=== PATIENT | female | born 1955 | race Caucasian/White ===

== ENCOUNTER 2021-12-26 11:35 | Emergency (ER) | payer BC, SELFPAY ==
[2021-12-26 11:45] VITALS: BP 176/88; PULSE 71; RESP 14; TEMP 36.6; O2SAT 98; BMI 19.1
--- NOTE | 2021-12-26 12:25 | ED_ITS ---
HPI - Skin/Abscess/Foreign Bdy General Chief complaint: Skin/Abscess/Foreign Body Stated complaint: right leg infection Time Seen by Provider: 12/26/21 11:40 History of Present Illness HPI narrative: 66-year-old woman presenting to the emergency department with concern of potential infection on her right inner lower leg. No fever. It sounds as though this has been there as long as 2 weeks. Got scratched by the toenail of her dog. Had been treating with Neosporin and bandage. Not known to have an allergy to combination of antibiotics in the aspirin. After about a week she had noted had scabbed over and then swelled and then ruptured with sounds like serous drainage. Has continued to ooze similar. Not purulent drainage. Is not particularly painful. She continues to apply Neosporin ointment on it. Later questioning reveals that is scrubbing it during bathing with soap and water. She has not been using hydrogen peroxide or alcohol to clean it. History of kidney transplants and long-term steroid and other immunosuppression with rather thin skin. 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 Related Data Home Medications Medication Instructions Recorded Confirmed amlodipine 5 mg tablet mg 12/26/21 atorvastatin 20 mg tablet mg 12/26/21 losartan 25 mg tablet 50 mg PO 12/26/21 mycophenolate mofetil 250 mg mg PO 12/26/21 capsule prednisone 5 mg tablet mg 12/26/21 tacrolimus 0.5 mg capsule, mg 12/26/21 immediate-release tacrolimus 1 mg capsule, mg 12/26/21 immediate-release Allergies Allergy/AdvReac Type Severity Reaction Status Date / Time No Known Drug Allergies Allergy Verified 12/26/21 11:48 Review of Systems Status of ROS: Reports: 6 or more systems reviewed and unremarkable except as noted in History and below PFSH PFS Social History Smoking Status: Current every day smoker What tobacco products do you use: cigarettes How often do you have a drink containing alcohol: monthly or less AUDIT-C Alcohol total score: 1 Non-prescribed substance use: denies use Exam Narrative: Exam Narrative: Pleasant. Good energy. Rather thin skin. Darkened in particular over hands and lower forms. Breathing easily. Moving all extremities without difficulty. No peripheral edema. Well perfused peripherally. Examination of the right lower leg reveals a quarter-sized area of irregularly- shaped of faint erythema. There is no calor. No purulent drainage. No significant pain to palpation. Centrally there is 1 cm maximal break in the skin with some whitish connective tissue/granulation tissue is visible. Small amount of serous drainage. Const: Vital Signs, click to edit/add: Vital Signs - 24 hr 12/26/21 11:45 Temperature 97.8 F Pulse Rate [Pulse Oximeter] 71 Respiratory Rate 14 Blood Pressure [Le ft Upper Arm] 176/88 H Pulse Oximetry 98 Oxygen Delivery Me thod Room Air Documenting provider has reviewed patient's vital signs: yes Course Course Hospital Course: Cleansed with Betadine and collected a wound culture. Placed 2 x 2 gauze and paper tape. Vital Signs Vital signs: Initial Vital Signs Temperature 97.8 F 12/26/21 11:45 Temperature Source Temporal Artery Scan 12/26/21 11:45 Pulse Rate 71 12/26/21 11:45 Pulse Rhythm 12/26/21 11:45 Respiratory Rate 14 12/26/21 11:45 Blood Pressure 176/88 H 12/26/21 11:45 Blood Pressure Mean 117 12/26/21 11:45 Blood Pressure Position Sitting 12/26/21 11:45 Pulse Oximetry 98 12/26/21 11:45 Oxygen Delivery Method 12/26/21 11:45 Vital Signs Temperature 97.8 F 12/26/21 11:45 Pulse Rate 71 12/26/21 11:45 Respiratory Rate 14 12/26/21 11:45 Blood Pressure 176/88 H 12/26/21 11:45 Pulse Oximetry 98 12/26/21 11:45 Oxygen Delivery Method 12/26/21 11:45 Temperature 97.8 F 12/26/21 11:45 Pulse Rate 71 12/26/21 11:45 Respiratory Rate 14 12/26/21 11:45 Blood Pressure 176/88 H 12/26/21 11:45 Pulse Oximetry 98 12/26/21 11:45 Oxygen Delivery Method 12/26/21 11:45 MDM - Skin/Abscess/Foreign Bdy MDM Narrative Medical decision making narrative: I do not think there is an active cellulitis here. some mild inflammatory reaction. Understanding history and current immunosuppression. Medical Records Attestation: I reviewed the patient's medical records. Discharge Plan Discharge Clinical Impression: Wound drainage Patient Disposition: Home w/ Parent or Adult Additional Instructions: Be seen for marked increase in/spreading redness, heat, pain, purulent drainage. I think at this point I would just go to dry dressing changes as done here. Do avoid scrubbing off that white tissue that is over growing. Might be a good idea, given your history, to be seen in the wound clinic if you do not notice improvement in a week or so. Prescriptions: No Action amlodipine 5 mg tablet losartan 25 mg tablet 50 mg PO atorvastatin 20 mg tablet mycophenolate mofetil 250 mg capsule PO Label Comments: TAKE 3 CAPSULES BY MOUTH EVERY MORNING AND 2 CAPSULES EVERY EVENING prednisone 5 mg tablet tacrolimus 1 mg capsule Label Comments: TAKE 1 CAPSULE BY MOUTH TWICE DAILY TAKE ALONG WITH 0.5 MG CAPSULE tacrolimus 0.5 mg capsule Label Comments: TAKE 1 CAPSULE BY MOUTH TWICE DAILY WITH 1 MG CAPSULE FOR TOTAL DAILY DOSE OF 1.5MG Follow Up/Referrals: Tammy Moreira MD [Primary Care Provider] - Stand Alone Forms: [employer] Info Instructions
== END 2021-12-26 12:40 | disposition home or self-care (01) ==
PROVIDERS: Emergency Provider Family Medicine; PCP Internal Medicine
DX: S80.921A Unspecified superficial injury of right lower leg, initial encounter (principal); W54.1XXA Struck by dog, initial encounter
CPT/HCPCS: 87070; 87186; 99283

== ENCOUNTER 2022-01-22 14:46 | Outpatient (RCR) | payer BC, SELFPAY ==
[2022-01-22 15:26] LABS: Basophils Absolute Auto 0.01 K/uL (0.00-0.30); Basophils Percent Auto 0.1 % (0.0-3.0); Eosinophils Absolute Auto 0.04 K/uL (0.00-0.50); Eosinophils Percent Auto 0.6 % (0.0-7.0); Hematocrit 40.2 % (33.0-51.0); Hemoglobin* 12.8 gm/dL (12.0-16.0); Immature Granulocytes Abs Auto 0.01 K/uL (0.00-0.30); Lymphocytes Percent Auto 12.5 % (20-44); Mean Corpuscular HGB Conc 32 gm/dL (32-36); Mean Corpuscular Hemoglobin 30 pg (26-34); Mean Corpuscular Volume 94 fL (80-100); Monocytes Percent Auto 6.2 % (0.0-11.0); Neutrophils Percent Auto 80.5 % (42.0-72.0); Platelet Count* 297 K/uL (140-440); RDW Coefficient of Variation % 13.8 % (11.5-15.5); Red Blood Count 4.26 m/uL (4.00-5.20); White Blood Count* 6.98 K/uL (4.50-11.00)
[2022-01-22 15:27] LABS: Slide Review Reflex No
[2022-01-22 15:42] LABS: Potassium* 4.3 mmol/L (3.6-5.1)
[2022-01-22 15:44] LABS: Creatinine Urine 71.9 mg/dL
[2022-01-22 15:45] LABS: Creatinine* 1.3 mg/dL (0.5-1.5); Estimated Glomerular Filt Rate 45 ml/min
[2022-01-22 15:46] LABS: Glucose* 92 mg/dL (60-115)
[2022-01-22 16:42] LABS: Microalbumin Creatinine Ratio 370 mg/g (0-30); Microalbumin Urine 27 mg/dL
== END 2023-01-03 11:50 | disposition home or self-care (01) ==
LOC: LAB 14:46
PROVIDERS: PCP Internal Medicine; Visit Provider Internal Medicine
DX: Z94.0 Kidney transplant status (principal)
CPT/HCPCS: 36415; 82043; 82565; 82570; 82947; 84132; 85025

== ENCOUNTER 2022-02-27 13:49 | Outpatient (REF) | payer BC, SELFPAY ==
[2022-02-27 14:48] LABS: Basophils Absolute Auto 0.01 K/uL (0.00-0.30); Basophils Percent Auto 0.1 % (0.0-3.0); Eosinophils Absolute Auto 0.03 K/uL (0.00-0.50); Eosinophils Percent Auto 0.4 % (0.0-7.0); Hematocrit 39.7 % (33.0-51.0); Hemoglobin* 12.9 gm/dL (12.0-16.0); Immature Granulocytes Abs Auto 0.02 K/uL (0.00-0.30); Lymphocytes Percent Auto 13.5 % (20-44); Mean Corpuscular HGB Conc 33 gm/dL (32-36); Mean Corpuscular Hemoglobin 31 pg (26-34); Mean Corpuscular Volume 94 fL (80-100); Monocytes Percent Auto 5.4 % (0.0-11.0); Neutrophils Percent Auto 80.3 % (42.0-72.0); Platelet Count* 284 K/uL (140-440); RDW Coefficient of Variation % 13.4 % (11.5-15.5); Red Blood Count 4.22 m/uL (4.00-5.20); White Blood Count* 6.81 K/uL (4.50-11.00)
[2022-02-27 15:03] LABS: Slide Review Reflex No
[2022-03-01 12:29] LABS: 25-Hydroxyvitamin D2 1.1 ng/mL; 25-Hydroxyvitamin D2,D3 Total 34.8 ng/mL (30.0-80.0); 25-Hydroxyvitamin D3 33.7 ng/mL
== END 2022-02-27 13:50 | disposition home or self-care (01) ==
LOC: NPINS 13:49
PROVIDERS: PCP Internal Medicine
DX: Z79.899 Other long term (current) drug therapy (principal)
CPT/HCPCS: 80061; 82306; 82310; 82565; 82947; 83970; 84132; 85025

== ENCOUNTER 2022-05-23 10:06 | Emergency (ER) | payer BC, SELFPAY ==
[2022-05-23] VITALS (16 sets, daily range): BP systolic 159–178; BP diastolic 67–86; PULSE 60–77; RESP 14; TEMP 37.3; O2SAT 93–96; BMI 17.3
[2022-05-23] MEDS: 0.9 % SODIUM CHLORIDE 1000 ml 1,000 ML IV (11:10)
--- NOTE | 2022-05-23 11:14 | CRLHL7_ITS ---
For Patients: As a result of the 21st Century Cures Act, medical imaging exams and procedure reports are released immediately into your electronic medical record. You may view this report before your referring provider. If you have questions, please contact your health care provider. Indication: Cough, weight loss history of cancer status post renal transplantation Technique: Volumetric multidetector CT images of the chest, abdomen, and pelvis were obtained without the administration of intravenous contrast. No low osmolar intravenous contrast Comparison: None available. FINDINGS: CHEST The thoracic inlet is unremarkable. The thyroid gland is within normal limits. The thoracic aorta is non aneurysmal with moderate scattered atherosclerotic calcification. The pulmonary arteries are nondilated. There is no mediastinal, hilar, or axillary adenopathy. There is mild central bronchial thickening. There is minimal peripheral atelectasis and parenchymal scarring without evidence of dense consolidation, effusion or pneumothorax. Minimal biapical pleural thickening and paraseptal emphysematous changes are appreciated. The thoracic osseus structures are intact without fracture, lytic, or blastic lesion. The thoracic vertebral body heights are grossly maintained with demonstration of minimal endplate deformity of the superior T11 endplate consistent with sequela of prior Schmorl`s defect. Otherwise, there is no evidence of displaced fracture. ABDOMEN AND PELVIS The liver is normal in size without focal abnormality. The spleen is normal in attenuation and size. There layering calcified gallstones within the gallbladder lumen. There is no intrahepatic or common ductal dilatation. There is mild thickening of the gastric antrum. Otherwise the stomach is grossly unremarkable. There is moderate atrophy of the pancreas. The adrenal glands are unremarkable without evidence of adenoma. The kidneys demonstrate atrophic changes bilaterally with demonstration of a transplant kidney in the left lower quadrant. There is no evidence of obvious radiopaque calculus or hydronephrosis. There is minimal stool seen throughout the colon with a predominantly decompressed appearing transverse colon and descending colon with marked sigmoid diverticulosis without definite evidence of diverticulitis. The appendix is unremarkable without significant inflammatory change. The abdominal aorta is aneurysmal measuring 4.2 x 4.3 centimeters with moderate scattered atherosclerotic calcification. The remaining solid pelvic viscera are otherwise grossly unremarkable. There is no pathologically enlarged epigastric, mesenteric, retroperitoneal, or pelvic sidewall lymph node. The anterior abdominal wall is grossly intact without significant hernias. There is no free air or free fluid. The visualized osseous structures are grossly intact without evidence of displaced fracture, lytic or blastic lesion. There is age-indeterminate deformity of the superior L1 vertebral body. Otherwise, the vertebral body heights are grossly maintained with [id number] degenerative disc disease. Impression: 1. Mild to moderate nonspecific central bronchial thickening without acute cardiopulmonary abnormality which may represent minimal bronchitis changes. 2. Demonstration of transplant kidney in the left lower quadrant without obvious hydronephrosis or hydroureter. Severe atrophy of the [place] kidneys. 3. 4.2 x 4.3 centimeter infrarenal abdominal aortic aneurysm. 4. Moderate to severe diverticulosis of the rectosigmoid colon without overt pericolonic inflammation to suggest diverticulitis. 5. Cholelithiasis. Hepatomegaly. Please note that all CT scans at this facility use dose modulation, iterative reconstruction, and/or weight-based dosing when appropriate to reduce radiation dose to as low as reasonably achievable. Dictated by Vicente Smith MD @ 05/23/2022 12:20:18 PM (Electronically Signed)
[2022-05-23] MEDS: ONDANSETRON 2 MG/ML inj 4 MG IVP (11:15)
--- NOTE | 2022-05-23 11:18 | ED_ITS ---
HPI - General Adult General Chief complaint: Nausea/Vomiting Stated complaint: Can't keep anything down, dehydration Time Seen by Provider: 05/23/22 10:50 History of Present Illness HPI narrative: This 66-year-old female well comes in because of weight loss, vomiting, and generalized malaise. She has a history of renal transplant x2. She is a smoker. She got a respiratory infection about a month ago and since then has not been able to eat well because she is coughing up phlegm and what food that she swallows comes also. She states that she has had vomiting of any kind of liquids also over the last day. She reports 30 lb weight loss in the last month. She did go to her primary physician who ordered some tests and follow-up appointments that will not occur for farther out in the future. She does not report any fevers. She states that she does not have enough energy to walk across the room. She arrives with normal vital signs and oximetry at 96% on room air. At her previous doctor's appointment she was able to get up and walk across the room and yet maintain sufficient oximetry. She reports that she continues to smoke but diego so over the past days or weeks. Related Data Home Medications Medication Instructions Recorded Confirmed losartan 25 mg tablet 50 mg PO DAILY 12/26/21 05/23/22 amlodipine 5 mg tablet 5 mg PO QDAY 05/17/22 05/23/22 aspirin 325 mg tablet 325 mg PO QDAY 05/17/22 05/23/22 atorvastatin 20 mg tablet 20 mg PO QDAY 05/17/22 05/23/22 cholecalciferol (vitamin D3) 50 50 mcg PO QDAY 05/17/22 05/23/22 mcg (2,000 unit) capsule mycophenolate mofetil 250 mg 250 mg PO .3 cap QAM and 2 Caps 05/17/22 05/23/22 capsule prednisone 5 mg tablet 5 mg PO QDAY 05/17/22 05/23/22 tacrolimus 0.5 mg capsule, 0.5 mg PO BID 05/17/22 05/23/22 immediate-release tacrolimus 1 mg capsule, 1 mg PO BID 05/17/22 05/23/22 immediate-release Previous Rx's Medication Instructions Recorded acetaminophen 300 mg-codeine 30 mg 1 tab PO Q6H PRN pain #20 tabs 05/23/22 tablet metoclopramide HCl 10 mg tablet 10 mg PO Q6H PRN nausea and 05/23/22 (Reglan) vomiting #20 tabs ondansetron HCl 4 mg tablet 4 mg PO Q6H #20 tabs 05/23/22 Allergies Allergy/AdvReac Type Severity Reaction Status Date / Time No Known Drug Allergies Allergy Verified 05/23/22 10:57 Review of Systems Status of ROS: Reports: 10 or more systems reviewed and unremarkable except as noted in History and below Narrative: Constitutional: No fevers. 30 lb weight loss in the last month. Eyes: No discharge. No vision changes. HENT: No congestion, no sore throat, no ear pain. Cardiovascular: No chest pain, no palpitations. Respiratory: She has a productive cough and feels shortness of breath with exertion. Gastrointestinal: Persistent vomiting with nausea. Genitourinary: No dysuria, no hematuria. Musculoskeletal: Normal range of motion. Skin: No rashes, no pruritis. Neurological: No dizziness, weakness, sensory change, speech change. Pysch: no suicidality, no anxiety, no insomnia. All other systems reviewed and are negative. [facility] Medical History (Updated 05/23/22 @ 13:04 by Enrique Rivas MD) History of anemia of chronic renal failure History of atrial fibrillation History of hypertension Surgical History (Updated 05/17/22 @ 12:53 by Tammy Moreira MD) History of basal cell carcinoma excision History of parathyroidectomy History of squamous cell carcinoma excision Social History Smoking Status: Current every day smoker What tobacco products do you use: cigarettes How often do you have a drink containing alcohol: monthly or less AUDIT-C Alcohol total score: 1 Non-prescribed substance use: denies use Exam Narrative: Exam Narrative: Constitutional: Cachectic. HEENT: Normocephalic, atraumatic. Neck: Normal range of motion. Nontender. Supple. Heart: Regular. No murmurs. Normal rate. Intact distal pulses. Lungs: Clear to auscultation. No chest discomfort. Frequent loose sound Ng productive cough. Abdomen: Normal bowel sounds. Diffuse tenderness. No rebound tenderness. Genitalia: Deferred. Back: No midline tenderness. Normal range of motion. Extremities: Normal range of motion. No injury. Skin: Intact. No rash. Warm. No erythema or pallor. Neurologic: No altered sensation. No weakness. Alert and oriented. Psychiatric: No suicidality. No anxiety or depression. No insomnia. Nursing notes and vitals signs are reviewed. Const: Vital Signs, click to edit/add: Vital Signs - 24 hr 05/23/22 10:51 05/23/22 10:50 05/23/22 10:52 Temperature 99.1 F Pulse Rate 60 61 Pulse Rate [Pulse Oximeter] 76 Respiratory Rate 14 Blood Pressure 166/69 H Blood Pressure [Le ft Upper Arm] 159/83 H Pulse Oximetry 94 96 96 Oxygen Delivery Me thod Room Air 05/23/22 11:00 05/23/22 11:02 05/23/22 11:20 Temperature Pulse Rate 62 61 64 Pulse Rate [Pulse Oximeter] Respiratory Rate Blood Pressure 178/71 H Blood Pressure [Le ft Upper Arm] Pulse Oximetry 95 96 95 Oxygen Delivery Me thod 05/23/22 11:56 05/23/22 12:00 05/23/22 12:03 Temperature Pulse Rate 66 64 69 Pulse Rate [Pulse Oximeter] Respiratory Rate Blood Pressure 161/67 H Blood Pressure [Le ft Upper Arm] Pulse Oximetry 93 93 93 Oxygen Delivery Me thod 05/23/22 12:20 05/23/22 12:22 05/23/22 12:40 Temperature Pulse Rate 61 65 70 Pulse Rate [Pulse Oximeter] Respiratory Rate Blood Pressure 167/79 H Blood Pressure [Le ft Upper Arm] Pulse Oximetry 94 94 94 Oxygen Delivery Me thod 05/23/22 12:42 Temperature Pulse Rate 77 Pulse Rate [Pulse Oximeter] Respiratory Rate Blood Pressure 178/86 H Blood Pressure [Le ft Upper Arm] Pulse Oximetry 95 Oxygen Delivery Me thod Course Vital Signs Vital signs: Initial Vital Signs Pulse Rate 60 05/23/22 10:50 Pulse Oximetry 96 05/23/22 10:50 Vital Signs Pulse Rate 60 05/23/22 10:50 Pulse Oximetry 96 05/23/22 10:50 Temperature 99.1 F 05/23/22 10:51 Pulse Rate 77 05/23/22 12:42 Respiratory Rate 14 05/23/22 10:51 Blood Pressure 178/86 H 05/23/22 12:42 Pulse Oximetry 95 05/23/22 12:42 Oxygen Delivery Method 05/23/22 10:51 Medical Decision Making MDM Narrative Medical decision making narrative: This 66-year-old female comes in with generalized malaise including nausea, vomiting, and diarrhea. An IV was established where she received a L of normal saline and another L of D5 half-normal saline. She also received 4 mg of Zofran and later Reglan 10 mg for nausea management. Lab results returned with reassuring findings. I did scan her chest, abdomen, and pelvis and these returned with no new findings to explain her symptoms. She states that she has been quitting smoking and this may be triggering more mucus production as she does have a rather wet sound Ng cough that is frequent and productive. Despite her symptoms it is reassuring for these lab and imaging results. At the time of discharge the patient appears safe for outpatient management. The treatment plan is reviewed along with written and verbal return precautions. Reasons to return and the importance of close followup were also reviewed. The patient received prescriptions for Reglan, Zofran, and Tylenol 3. She does have follow- up appointments arranged with pulmonology and Nephrology. Lab Data Labs: Lab Results 05/23/22 05/23/22 05/23/22 Range/Units 10:30 10:30 10:50 WBC 8.90 (4.50-11.00) K/uL RBC 3.60 L (4.00-5.20) m/uL Hgb 11.2 L (12.0-16.0) gm/dL Hct 33.5 (33.0-51.0) % MCV 93 (80-100) fL MCH 31 (26-34) pg MCHC 33 (32-36) gm/dL RDW Coeff of Elida 13.3 (11.5-15.5) % Plt Count 272 (140-440) K/uL Neut % (Auto) 77.6 H (42.0-72.0) % Lymph % (Auto) 11.7 L (20-44) % Yates % (Auto) 9.6 (0.0-11.0) % Eos % (Auto) 0.8 (0.0-7.0) % Baso % (Auto) 0.1 (0.0-3.0) % Neut # (Auto) 6.90 (1.7-7.0) K/uL Lymph # (Auto) 1.00 (0.90-2.90) K/uL Yates # (Auto) 0.90 (0.00-0.90) K/UL Eos # (Auto) 0.07 (0.00-0.50) K/uL Baso # (Auto) 0.01 (0.00-0.30) K/uL Sodium 133 L (135-149) mmol/L Potassium 4.3 (3.6-5.1) mmol/L Chloride 105 (96-114) mmol/L Carbon Dioxide 19 L (20-32) mmol/L BUN 18 (7-30) mg/dL Creatinine 1.1 (0.5-1.5) mg/dL Estimated Creat Clear 36.96 Estimated GFR 55 ml/min Glucose 98 (60-115) mg/dL Calcium 9.7 (8.4-10.6) mg/dL Total Bilirubin 1.2 (0.1-1.5) mg/dL Direct Bilirubin 0.2 (0.0-0.5) mg/dL AST 16 (12-35) U/L ALT 10 (4-35) U/L Alkaline Phosphatase 75 (40-150) U/L Total Protein 7.1 (6.0-8.3) g/dL Albumin 4.1 (3.3-5.0) g/dL SARS-CoV-2 (PCR) (Negative) Influenza Type A (PCR) (Negative) Influenza Type B (PCR) (Negative) RSV (PCR) (Negative) POC Troponin I 0.02 (0.01-0.04) ng/ml 05/23/22 Range/Units 11:15 WBC (4.50-11.00) K/uL RBC (4.00-5.20) m/uL Hgb (12.0-16.0) gm/dL Hct (33.0-51.0) % MCV (80-100) fL MCH (26-34) pg MCHC (32-36) gm/dL RDW Coeff of Elida (11.5-15.5) % Plt Count (140-440) K/uL Neut % (Auto) (42.0-72.0) % Lymph % (Auto) (20-44) % Yates % (Auto) (0.0-11.0) % Eos % (Auto) (0.0-7.0) % Baso % (Auto) (0.0-3.0) % Neut # (Auto) (1.7-7.0) K/uL Lymph # (Auto) (0.90-2.90) K/uL Yates # (Auto) (0.00-0.90) K/UL Eos # (Auto) (0.00-0.50) K/uL Baso # (Auto) (0.00-0.30) K/uL Sodium (135-149) mmol/L Potassium (3.6-5.1) mmol/L Chloride (96-114) mmol/L Carbon Dioxide (20-32) mmol/L BUN (7-30) mg/dL Creatinine (0.5-1.5) mg/dL Estimated Creat Clear Estimated GFR ml/min Glucose (60-115) mg/dL Calcium (8.4-10.6) mg/dL Total Bilirubin (0.1-1.5) mg/dL Direct Bilirubin (0.0-0.5) mg/dL AST (12-35) U/L ALT (4-35) U/L Alkaline Phosphatase (40-150) U/L Total Protein (6.0-8.3) g/dL Albumin (3.3-5.0) g/dL SARS-CoV-2 (PCR) Negative SARS-CoV-2 (Negative) Influenza Type A (PCR) Negative PCR FLU A (Negative) Influenza Type B (PCR) Negative PCR FLU B (Negative) RSV (PCR) Negative PCR RSV (Negative) POC Troponin I (0.01-0.04) ng/ml Imaging Data CT Chest/Ab/Pelvis: Radiologist's impression: 1. Mild to moderate nonspecific central bronchial thickening without acute cardiopulmonary abnormality which may represent minimal bronchitis changes. 2. Demonstration of transplant kidney in the left lower quadrant without obvious hydronephrosis or hydroureter. Severe atrophy of the [place] kidneys. 3. 4.2 x 4.3 centimeter infrarenal abdominal aortic aneurysm. 4. Moderate to severe diverticulosis of the rectosigmoid colon without overt pericolonic inflammation to suggest diverticulitis. 5. Cholelithiasis. Hepatomegaly. ECG Data Attestation: I personally reviewed and interpreted this ECG as follows: Interpretation: Normal sinus rhythm. Rate is 65 beats per minute. There are no ST or T-wave abnormalities. Discharge Plan Discharge Clinical Impression: Vomiting and diarrhea, Weight loss Condition: Stable Additional Instructions: Take medication as prescribed. Increase diet as tolerated. Follow up with MD or return if worsening symptoms occur. Prescriptions: New ondansetron HCl 4 mg tablet 4 mg PO Q6H Qty: 20 0RF acetaminophen-codeine 300-30 mg tablet 1 tab PO Q6H PRN (Reason: pain) Qty: 20 0RF metoclopramide HCl [Reglan] 10 mg tablet 10 mg PO Q6H PRN (Reason: nausea and vomiting) Qty: 20 0RF No Action aspirin 325 mg tablet 325 mg PO QDAY cholecalciferol (vitamin D3) 50 mcg (2,000 unit) capsule 50 mcg PO QDAY losartan 25 mg tablet 50 mg PO DAILY atorvastatin 20 mg tablet 20 mg PO QDAY amlodipine 5 mg tablet 5 mg PO QDAY tacrolimus 1 mg capsule 1 mg PO BID Label Comments: TAKE 1 CAPSULE BY MOUTH TWICE DAILY TAKE ALONG WITH 0.5 MG CAPSULE prednisone 5 mg tablet 5 mg PO QDAY mycophenolate mofetil 250 mg capsule 250 mg PO .3 cap QAM and 2 Caps Label Comments: TAKE 3 CAPSULES BY MOUTH EVERY MORNING AND 2 CAPSULES EVERY EVENING tacrolimus 0.5 mg capsule 0.5 mg PO BID Label Comments: TAKE 1 CAPSULE BY MOUTH TWICE DAILY WITH 1 MG CAPSULE FOR TOTAL DAILY DOSE OF 1.5MG Follow Up/Referrals: Generic,Amb Provider [Staff Physician] - Stand Alone Forms: MyHealth Info Instructions
[2022-05-23 11:34] LABS: Troponin, Point-of-Care* 0.02 ng/ml (0.01-0.04)
[2022-05-23 11:37] LABS: Basophils Absolute Auto 0.01 K/uL (0.00-0.30); Basophils Percent Auto 0.1 % (0.0-3.0); Eosinophils Absolute Auto 0.07 K/uL (0.00-0.50); Eosinophils Percent Auto 0.8 % (0.0-7.0); Hematocrit 33.5 % (33.0-51.0); Hemoglobin* 11.2 gm/dL (12.0-16.0); Immature Granulocytes Abs Auto 0.02 K/uL (0.00-0.30); Immature Granulocytes Pct Auto 0.2 %; Lymphocytes Percent Auto 11.7 % (20-44); Mean Corpuscular HGB Conc 33 gm/dL (32-36); Mean Corpuscular Hemoglobin 31 pg (26-34); Mean Corpuscular Volume 93 fL (80-100); Monocytes Percent Auto 9.6 % (0.0-11.0); Neutrophils Percent Auto 77.6 % (42.0-72.0); Platelet Count* 272 K/uL (140-440); RDW Coefficient of Variation % 13.3 % (11.5-15.5)
[2022-05-23 11:39] LABS: Slide Review Reflex No
[2022-05-23 11:53] LABS: Albumin* 4.1 g/dL (3.3-5.0); Chloride* 105 mmol/L (96-114); Potassium* 4.3 mmol/L (3.6-5.1); Sodium* 133 mmol/L (135-149)
[2022-05-23 11:55] LABS: Creatinine* 1.1 mg/dL (0.5-1.5); Est. Creatinine Clearance* 36.96; Estimated Glomerular Filt Rate 55 ml/min
[2022-05-23 11:56] LABS: Alanine Aminotransferase* 10 U/L (4-35); Alkaline Phosphatase* 75 U/L (40-150); Aspartate Amino Transferase* 16 U/L (12-35); Bilirubin Direct* 0.2 mg/dL (0.0-0.5); Bilirubin Total* 1.2 mg/dL (0.1-1.5); Blood Urea Nitrogen* 18 mg/dL (7-30); Carbon Dioxide* 19 mmol/L (20-32); Glucose* 98 mg/dL (60-115); Total Protein* 7.1 g/dL (6.0-8.3)
[2022-05-23] MEDS: 5 % DEXTROSE/0.45% SOD CHLOR 1,000 ML 1000 ML IV (11:56)
[2022-05-23 11:57] LABS: Calcium* 9.7 mg/dL (8.4-10.6)
[2022-05-23 12:31] LABS: PCR FLU A Negative PCR FLU A (Negative); PCR FLU B Negative PCR FLU B (Negative); PCR RSV Negative PCR RSV (Negative)
[2022-05-23 12:32] LABS: SARS PCR* Negative SARS-CoV-2 (Negative)
[2022-05-23] MEDS: METOCLOPRAMIDE HCL 5 MG/ML INJ 10 MG IVP (12:39)
== END 2022-05-23 13:45 | disposition home or self-care (01) ==
PROVIDERS: Emergency Provider Emergency Medicine Emergency Medical Services; PCP Internal Medicine
DX: R11.10 Vomiting, unspecified (principal); R19.7 Diarrhea, unspecified; R63.4 Abnormal weight loss
CPT/HCPCS: 36415; 71250; 74176; 80048; 80076; 84484; 85025; 87502; 87634; 87635; 93005; 96361; 96374; 96375; 99284; 99285; J2405; J2765; J7030; S5010

== ENCOUNTER 2022-12-08 20:53 | Emergency (ER) | payer BC, SELFPAY ==
[2022-12-08 20:59] VITALS: BP 186/94; PULSE 80; RESP 16; TEMP 37.1; O2SAT 98
--- NOTE | 2022-12-08 21:24 | ED_ITS ---
HPI - General Adult General Chief complaint: Unspecified Complaint, Adult Stated complaint: needs her pills - had a kidney transplant Time Seen by Provider: 12/08/22 21:16 Source: patient Mode of arrival: ambulatory Limitations: no limitations History of Present Illness HPI narrative: 67-year-old female coming in today requesting med refills. Patient recently came back from for the where she lost all of her medications. She is due for her nighttime medications a is quite concerned that she does not have them. She is requesting a dose of losartan, amlodipine, prednisone, and tacrolimus. Patient has history of hypertension, nicotine dependence, kidney transplant, coronary artery disease. Related Data Home Medications Medication Instructions Recorded Confirmed losartan 25 mg tablet 50 mg PO DAILY 12/26/21 12/08/22 amlodipine 5 mg tablet 5 mg PO QDAY 05/17/22 12/08/22 aspirin 325 mg tablet 325 mg PO QDAY 05/17/22 12/08/22 atorvastatin 20 mg tablet 20 mg PO QDAY 05/17/22 12/08/22 cholecalciferol (vitamin D3) 50 50 mcg PO QDAY 05/17/22 12/08/22 mcg (2,000 unit) capsule mycophenolate mofetil 250 mg 250 mg PO .3 cap QAM and 2 Caps 05/17/22 12/08/22 capsule prednisone 5 mg tablet 5 mg PO QDAY 05/17/22 12/08/22 tacrolimus 0.5 mg capsule, 0.5 mg PO BID 05/17/22 12/08/22 immediate-release tacrolimus 1 mg capsule, 1 mg PO BID 05/17/22 12/08/22 immediate-release Previous Rx's Medication Instructions Recorded ondansetron HCl 4 mg tablet 4 mg PO Q6H #20 tabs 05/23/22 Allergies Allergy/AdvReac Type Severity Reaction Status Date / Time No Known Drug Allergies Allergy Verified 12/08/22 21:07 Review of Systems Status of ROS: Reports: 6 or more systems reviewed and unremarkable except as noted in History and below [facility] Medical History History of hypertension ?Z86.79 - Personal history of other diseases of the circulatory system (ICD- 10) History of atrial fibrillation ?Z86.79 - Personal history of other diseases of the circulatory system (ICD- 10) History of anemia of chronic renal failure ?Z86.2 - Personal history of diseases of the blood and blood-forming organs and certain disorders involving the immune mechanism (ICD-10) ?Z87.448 - Personal history of other diseases of urinary system (ICD-10) Surgical History History of parathyroidectomy ?E89.2 - Postprocedural hypoparathyroidism (ICD-10) History of basal cell carcinoma excision ?Z98.890 - Other specified postprocedural states (ICD-10) ?Z85.828 - Personal history of other malignant neoplasm of skin (ICD-10) History of squamous cell carcinoma excision ?Z98.890 - Other specified postprocedural states (ICD-10) ?Z85.9 - Personal history of malignant neoplasm, unspecified (ICD-10) Social History Smoking Status: Current every day smoker What tobacco products do you use: cigarettes How often do you have a drink containing alcohol: monthly or less AUDIT-C Alcohol total score: 1 Non-prescribed substance use: denies use Exam Narrative: Exam Narrative: Thin, well-developed patient in no acute distress. Alert and oriented. Answers questions appropriately. Mood and affect are appropriate. Thoughts are goal oriented and rational. No tangential or magical thinking noted. Patient speaks in full sentences without needing to catch her breath. Looks older than stated age. HEENT: Normocephalic atraumatic. Pupils are equally round reactive to light. Extraocular muscles are intact. Conjunctivae are moist without any icterus noted. Moist mucous membranes. Skin: Well perfused without any obvious rashes. Bruising on her forearms and hands. Const: Vital Signs, click to edit/add: Vital Signs - 24 hr 12/08/22 20:59 Temperature 98.8 F Pulse Rate [Pulse Oximeter] 80 Respiratory Rate 16 Blood Pressure [Ri ght Upper Arm] 186/94 H Pulse Oximetry 98 Course Vital Signs Vital signs: Initial Vital Signs Temperature 98.8 F 12/08/22 20:59 Temperature Source Temporal Artery Scan 12/08/22 20:59 Pulse Rate 80 12/08/22 20:59 Respiratory Rate 16 12/08/22 20:59 Blood Pressure 186/94 H 12/08/22 20:59 Blood Pressure Mean 124 H 12/08/22 20:59 Pulse Oximetry 98 12/08/22 20:59 Vital Signs Temperature 98.8 F 12/08/22 20:59 Pulse Rate 80 12/08/22 20:59 Respiratory Rate 16 12/08/22 20:59 Blood Pressure 186/94 H 12/08/22 20:59 Pulse Oximetry 98 12/08/22 20:59 Temperature 98.8 F 12/08/22 20:59 Pulse Rate 80 12/08/22 20:59 Respiratory Rate 16 12/08/22 20:59 Blood Pressure 186/94 H 12/08/22 20:59 Pulse Oximetry 98 12/08/22 20:59 Medical Decision Making MDM Narrative Medical decision making narrative: 67-year-old female with chronic medical issues, lost all of her medication. We gave her a dose of all requested medications tonight. She will follow up with her pharmacist in the morning for refills. Discharge Plan Discharge Clinical Impression: Medication refill Condition: Stable Prescriptions: No Action aspirin 325 mg tablet 325 mg PO QDAY cholecalciferol (vitamin D3) 50 mcg (2,000 unit) capsule 50 mcg PO QDAY losartan 25 mg tablet 50 mg PO DAILY atorvastatin 20 mg tablet 20 mg PO QDAY amlodipine 5 mg tablet 5 mg PO QDAY tacrolimus 1 mg capsule 1 mg PO BID Patient Comments: TAKE 1 CAPSULE BY MOUTH TWICE DAILY TAKE ALONG WITH 0.5 MG CAPSULE prednisone 5 mg tablet 5 mg PO QDAY mycophenolate mofetil 250 mg capsule 250 mg PO .3 cap QAM and 2 Caps Patient Comments: TAKE 3 CAPSULES BY MOUTH EVERY MORNING AND 2 CAPSULES EVERY EVENING tacrolimus 0.5 mg capsule 0.5 mg PO BID Patient Comments: TAKE 1 CAPSULE BY MOUTH TWICE DAILY WITH 1 MG CAPSULE FOR TOTAL DAILY DOSE OF 1.5MG ondansetron HCl 4 mg tablet 4 mg PO Q6H Qty: 20 0RF Follow Up/Referrals: Tammy Moreira MD [Primary Care Provider] - Stand [facility]one [facility]
[2022-12-08] MEDS: TACROLIMUS 0.5 MG CAPSULE PO (21:50)
[2022-12-08] MEDS: predniSONE 5 MG TABLET PO (21:50)
[2022-12-08] MEDS: LOSARTAN POTASSIUM 50 MG TABLET PO (21:50)
== END 2022-12-08 21:55 | disposition home or self-care (01) ==
PROVIDERS: Emergency Provider Family Medicine; PCP Internal Medicine
DX: Z76.0 Encounter for issue of repeat prescription (principal); Z94.0 Kidney transplant status
CPT/HCPCS: 99283; A9270; J7507; J7512

== ENCOUNTER 2023-04-28 12:58 | Emergency (ER) | payer BC, SELFPAY ==
[2023-04-28] VITALS (24 sets, daily range): BP systolic 127–162; BP diastolic 70–87; PULSE 58–78; RESP 16–22; TEMP 37.1; O2SAT 93–97; BMI 15.5
--- NOTE | 2023-04-28 13:28 | ED_ITS ---
HPI - Weakness General Time Seen by Provider: 13:28 Date Seen: 04/28/23 Chief complaint: Weakness Stated complaint: Lethargy Time Seen by Provider: 04/28/23 13:19 Source: patient and RN notes reviewed Mode of arrival: ambulatory Limitations: no limitations History of Present Illness HPI Narrative: Lino is a 67-year-old female coming in accompanied by her with concern of weakness, not feeling well. She is a 2 time kidney transplant, last 1 4 years ago, follows at [facility]. She has been somewhat lost to care, has not followed up there since November or December. She thinks that is when she last had her medicine levels drawn. She states they usually send her a kit to have her levels drawn and has not received it. She did start coughing about 4 days ago, has had no headache, no sore throat. She has noted problems with eating, did bring this up when she was in for her yearly evaluation at [facility] this summer. She was describing dysphagia, food getting stuck with swallowing and decreased ability to eat. They put her back on a proton pump inhibitor and that has resolved that. She still is having diminished appetite, reports that she has early satiety. The dysphagia has went away. She is noting chronic diarrhea since after that visit. There is no blood in the stool. Her notes that if she gets 200 calories in and maybe 8 oz of fluid in a day that that is all she will get in. She does endorse some abdominal pain at times. She has not had any follow-up since this summer, did not follow up with anyone for her issues. No blood in the stool is noted. Related Data Home Medications Medication Instructions Recorded Confirmed losartan 25 mg tablet 50 mg PO DAILY 12/26/21 04/28/23 amlodipine 5 mg tablet 5 mg PO QDAY 05/17/22 04/28/23 aspirin 325 mg tablet 325 mg PO QDAY 05/17/22 04/28/23 atorvastatin 20 mg tablet 20 mg PO QDAY 05/17/22 04/28/23 cholecalciferol (vitamin D3) 50 50 mcg PO QDAY 05/17/22 04/28/23 mcg (2,000 unit) capsule mycophenolate mofetil 250 mg 250 mg PO .3 cap QAM and 2 Caps 05/17/22 04/28/23 capsule prednisone 5 mg tablet 5 mg PO QDAY 05/17/22 04/28/23 tacrolimus 0.5 mg capsule, 0.5 mg PO BID 05/17/22 04/28/23 immediate-release tacrolimus 1 mg capsule, 1 mg PO BID 05/17/22 04/28/23 immediate-release omeprazole 20 mg capsule,delayed 20 mg PO DAILY 04/28/23 04/28/23 release Allergies Allergy/AdvReac Type Severity Reaction Status Date / Time No Known Drug Allergies Allergy Verified 04/28/23 13:04 Review of Systems Status of ROS: Reports: 6 or more systems reviewed and unremarkable except as noted in History and below [facility] Medical History History of hypertension ?Z86.79 - Personal history of other diseases of the circulatory system (ICD- 10) History of atrial fibrillation ?Z86.79 - Personal history of other diseases of the circulatory system (ICD- 10) History of anemia of chronic renal failure ?Z86.2 - Personal history of diseases of the blood and blood-forming organs and certain disorders involving the immune mechanism (ICD-10) ?Z87.448 - Personal history of other diseases of urinary system (ICD-10) Surgical History History of parathyroidectomy ?E89.2 - Postprocedural hypoparathyroidism (ICD-10) History of basal cell carcinoma excision ?Z98.890 - Other specified postprocedural states (ICD-10) ?Z85.828 - Personal history of other malignant neoplasm of skin (ICD-10) History of squamous cell carcinoma excision ?Z98.890 - Other specified postprocedural states (ICD-10) ?Z85.9 - Personal history of malignant neoplasm, unspecified (ICD-10) Social History Smoking Status: Current every day smoker What tobacco products do you use: cigarettes Smoking packs per day: 0.5 Smoking cigarettes per day: 10.0 Do you use any of these nicotine containing products: None Second hand tobacco smoke exposure: No How often do you have a drink containing alcohol: never AUDIT-C Alcohol total score: 0 Non-prescribed substance use: denies use service: No Exam Const: Vital Signs, click to edit/add: Vital Signs - 24 hr 04/28/23 13:06 04/28/23 13:18 04/28/23 13:19 Temperature 98.7 F Pulse Rate 72 71 Pulse Rate [Pulse Oximeter] 78 Respiratory Rate 16 22 Blood Pressure 144/70 H Blood Pressure [Ri ght Upper Arm] 127/79 Pulse Oximetry 95 94 93 Oxygen Delivery Me thod Room Air Room Air 04/28/23 13:19 04/28/23 13:30 04/28/23 13:32 Temperature Pulse Rate 71 62 71 Pulse Rate [Pulse Oximeter] Respiratory Rate 22 22 Blood Pressure 144/70 H 146/84 H Blood Pressure [Ri ght Upper Arm] Pulse Oximetry 93 95 94 Oxygen Delivery Me thod Room Air 04/28/23 13:40 04/28/23 13:45 04/28/23 14:00 Temperature Pulse Rate 64 62 Pulse Rate [Pulse Oximeter] Respiratory Rate Blood Pressure Blood Pressure [Ri ght Upper Arm] Pulse Oximetry 94 96 96 Oxygen Delivery Me thod 04/28/23 14:15 04/28/23 14:30 04/28/23 14:45 Temperature Pulse Rate 78 60 60 Pulse Rate [Pulse Oximeter] Respiratory Rate Blood Pressure Blood Pressure [Ri ght Upper Arm] Pulse Oximetry 97 95 97 Oxygen Delivery Me thod 04/28/23 15:00 04/28/23 15:15 04/28/23 15:30 Temperature Pulse Rate 63 66 61 Pulse Rate [Pulse Oximeter] Respiratory Rate Blood Pressure Blood Pressure [Ri ght Upper Arm] Pulse Oximetry 96 96 94 Oxygen Delivery Me thod 04/28/23 15:35 04/28/23 15:45 04/28/23 16:00 Temperature Pulse Rate 62 60 61 Pulse Rate [Pulse Oximeter] Respiratory Rate Blood Pressure 162/75 H Blood Pressure [Ri ght Upper Arm] Pulse Oximetry 94 93 94 Oxygen Delivery Me thod 04/28/23 16:01 04/28/23 16:15 04/28/23 16:30 Temperature Pulse Rate 58 L 62 58 L Pulse Rate [Pulse Oximeter] Respiratory Rate Blood Pressure 161/76 H Blood Pressure [Ri ght Upper Arm] Pulse Oximetry 93 94 94 Oxygen Delivery Me thod 04/28/23 16:32 04/28/23 16:45 Temperature Pulse Rate 62 58 L Pulse Rate [Pulse Oximeter] Respiratory Rate Blood Pressure 147/84 H Blood Pressure [Ri ght Upper Arm] Pulse Oximetry 94 94 Oxygen Delivery Me daylin Otero is a 67-year-old female of frail, slender stature. She is alert interactive. Sclera clear, pupils equal round reactive. Symmetrical facial function, can speak in complete sentences. Neck is slender, no masses. She is coughing quite a bit during the interaction, sounds a bit wet but she is able to finish her sentences, speak in complete sentences. Voice is not hoarse. Lungs actually with some diminished breath sound but are otherwise clear, no wheezing or crackles, no tachypnea. CV regular rate and rhythm, do not hear any significant murmur, normal S1-S2, no S3-S4. Abdomen is thin, were normal say a bit cachectic, no organomegaly noted, do not feel any pulsatile mass. She is not really tender at this time. Does have bowel sounds that are not concerning. She has no lower extremity edema, moving all extremities equally. Documenting provider has reviewed patient's vital signs: yes Course Course ED Course: Will place an IV inpatient, get a full complement of labs, get a portable chest x-ray for her cough. We did discuss doing the triple viral swab as she has started coughing in the last 4 days. Have reviewed with them that some of her complaints are a bit more chronic, I can do some initial investigative work but I do for see that there is of very likely chance that she is going to need further outpatient follow-up at [facility] [place]. Will make sure that there is nothing emergent or acutely that I can fix. I have ordered stool studies for the diarrhea, sounds like she has not had a lot of follow-up recently. Will get tacrolimus and CellCept levels on her given her changes status. Reevaluation(s) Time of Reevaluation #1: 15:14 Reevaluation #1: Have reviewed with them that her chest x-ray is indeed normal, her COVID is positive. She has had symptoms for 4 days. With the Teagan medication interaction guide, tacrolimus is contraindicated, the Paxlovid can increase values. We have discussed that I ordered stool studies, even if she does not have diarrhea here, would recommend getting them done as she is reporting chronic diarrhea. She does need to get back into medication management for her more chronic issues. We are still awaiting labs. At this time I for see discharge to home with return for outpatient IV remdesivir, will give her 1st dose of 200 mg here. Reviewed that she should be treated for COVID. Her has taken remdesivir before, there where of this medicine. As far as the other issues, if labs are stable in nothing else is showing appear, she needs to contact her transplant team on Saturday. Time of Reevaluation #2: 17:28 Reevaluation #2: Patient is completing her remdesivir. Did get magnesium as her magnesium was mildly low, give her 1 g IV. Will have her talk to her transplant team about further supplementation on Saturday. She will return over the next 2 days for remdesivir. Plan will be to discharge to home, outpatient follow-up for her other issues with her transplant team, IV remdesivir for her COVID with the 3 day protocol completed here. Vital Signs Vital signs: Initial Vital Signs Temperature 98.7 F 04/28/23 13:06 Temperature Source Temporal Artery Scan 04/28/23 13:06 Pulse Rate 78 04/28/23 13:06 Pulse Rhythm Regular 04/28/23 13:06 Pulse Strength 3+ Normal 04/28/23 13:06 Respiratory Rate 16 04/28/23 13:06 Blood Pressure 127/79 04/28/23 13:06 Blood Pressure Mean 95 04/28/23 13:06 Blood Pressure Position Sitting 04/28/23 13:06 Pulse Oximetry 95 04/28/23 13:06 Oxygen Delivery Method Room Air 04/28/23 13:06 Vital Signs Temperature 98.7 F 04/28/23 13:06 Pulse Rate 78 04/28/23 13:06 Respiratory Rate 16 04/28/23 13:06 Blood Pressure 127/79 04/28/23 13:06 Pulse Oximetry 95 04/28/23 13:06 Oxygen Delivery Method Room Air 04/28/23 13:06 Temperature 98.7 F 04/28/23 13:06 Pulse Rate 58 L 04/28/23 16:45 Respiratory Rate 22 04/28/23 13:32 Blood Pressure 147/84 H 04/28/23 16:32 Pulse Oximetry 94 04/28/23 16:45 Oxygen Delivery Method Room Air 04/28/23 13:32 Medications Administered Medications: Discontinued Medications Generic Name Dose Route Start Last Admin Trade Name Josefa PRN Reason Stop Dose Admin Sodium Chloride 1,000 mls @ 500 mls/hr 04/28/23 13:42 04/28/23 14:08 0.9 % Sodium Chloride 1000 Ml IV 04/28/23 15:41 500 mls/hr .Q2H JORGE Administration Magnesium Sulfate/Dextrose 1 gm in 100 mls @ 100 mls/hr 04/28/23 15:21 04/28/23 15:35 Magnesium Sulf 1 G/100 [id number] IVPB 04/28/23 16:20 100 mls/hr ONCE ONE Administration Remdesivir 200 mg/ Sodium 290 mls @ 290 mls/hr 04/28/23 16:00 04/28/23 16:29 Chloride IVPB 04/28/23 16:59 290 mls/hr ONCE ONE Administration MDM - Weakness Lab Data Attestation: I reviewed the patient's lab results. Labs: Lab Results 04/28/23 04/28/23 04/28/23 Range/Units 13:15 14:00 15:15 WBC 5.03 (4.50-11.00) K/uL RBC 3.37 L (4.00-5.20) m/uL Hgb 10.4 L (12.0-16.0) gm/dL Hct 32.2 L (33.0-51.0) % MCV 96 (80-100) fL MCH 31 (26-34) pg MCHC 32 (32-36) gm/dL RDW Coeff of Elida 13.2 (11.5-15.5) % Plt Count 117 L (140-440) K/uL Neut % (Auto) 76.2 H (42.0-72.0) % Lymph % (Auto) 12.7 L (20-44) % Richardson % (Auto) 10.3 (0.0-11.0) % Eos % (Auto) 0.4 (0.0-7.0) % Baso % (Auto) 0.2 (0.0-3.0) % Neut # (Auto) 3.80 (1.7-7.0) K/uL Lymph # (Auto) 0.60 L (0.90-2.90) K/uL Richardson # (Auto) 0.50 (0.00-0.90) K/UL Eos # (Auto) 0.02 (0.00-0.50) K/uL Baso # (Auto) 0.01 (0.00-0.30) K/uL Abs Immat Gran (auto) 0.01 (0.00-0.30) K/uL Imm/Tot Granulo (auto) 0.2 % Sodium 133 L (135-149) mmol/L Potassium 4.4 (3.6-5.1) mmol/L Chloride 110 (96-114) mmol/L Carbon Dioxide 16 L (20-32) mmol/L Anion Gap 7 (7-15) mEq/L BUN 28 (7-30) mg/dL Creatinine 1.6 H (0.5-1.5) mg/dL Estimated Creat Clear 22.41 Estimated GFR 35 ml/min Glucose 76 (60-115) mg/dL Lactate 0.9 (0.5-1.9) mmol/L Calcium 8.8 (8.4-10.6) mg/dL Magnesium 1.4 L (1.5-2.6) mg/dL Total Bilirubin 0.5 (0.1-1.5) mg/dL AST 15 (12-35) U/L ALT 9 (4-35) U/L Alkaline Phosphatase 60 (40-150) U/L Troponin I < 0.01 L (0.01-0.04) ng/mL C-Reactive Protein 1.0 (0.5-1.0) mg/dL NT-Pro-B Natriuret Pep 8600 pg/mL Total Protein 6.6 (6.0-8.3) g/dL Albumin 3.6 (3.3-5.0) g/dL Lipase 73 (23-300) U/L Procalcitonin 0.05 (<0.50) ng/mL SARS-CoV-2 (PCR) POSITIVE SARS-CoV-2 A (Negative) Influenza Type A (PCR) Negative PCR FLU A (Negative) Influenza Type B (PCR) Negative PCR FLU B (Negative) RSV (PCR) Negative PCR RSV (Negative) Lab Acknowledgement Test Added Imaging Data Chest x-ray: Attestation: I have reviewed the pertinent imaging results. Radiologist's impression: Patient: LINO SUGGS Facility:?[facility] Patient ID:?[id number] Site Patient ID:?[id number]. Site :?[id number] Study:?XRay Chest PCXR-04/28/2023 2:21:45 PM Ordering Physician:Brigida Pittman Final Report: INDICATION: Cough. Weight loss. Comparison: 05/17/2022. FINDINGS: A portable AP view of the chest was obtained. The cardiac silhouette and pulmonary vasculature are within normal limits. The lungs are clear bilaterally. IMPRESSION: No evidence of acute pulmonary disease. Dictated by Rufino Alexander MD @ 04/28/2023 2:58:53 PM (Electronic Signature) Discharge Plan Discharge Clinical Impression: COVID-19, Kidney transplant status, Hypomagnesemia Diarrhea Qualifiers: Diarrhea type: unspecified type Qualified Code(s): R19.7 - Diarrhea, unspecified Patient Disposition: Home, Self-Care Condition: Stable Instructions: Nutrition Tips for Relief of Diarrhea (ED), COVID-19 (Coronavirus Disease 2019) (ED), COVID-19 and Chronic Health Conditions (ED), How to Recover from COVID-19 at Home (ED), Hypomagnesemia (ED) Additional Instructions: I have ordered tacrolimus and mycophenolate levels, these can be faxed or sent to your [facility] kidney transplant team. You need to call them on Saturday, notify a them of your status in all that is been happening. You will need to follow-up down there for your issues. Need to complete the remdesivir outpatient doses tomorrow and the day after for COVID-19. Need to quarantine per CDC guidelines for COVID-19. If you are having increasing symptoms from COVID, feel like you are having shortness of breath, increased difficulty breathing or chest pain, do need to be re-evaluated. Do recommend bringing the stool studies back to start further evaluating and ruling out etiologies for your diarrhea. Magnesium was mildly low here, recommend follow-up of this lab with the transplant team and further recommendations for medication management with them. Prescriptions: No Action aspirin 325 mg tablet 325 mg PO QDAY cholecalciferol (vitamin D3) 50 mcg (2,000 unit) capsule 50 mcg PO QDAY losartan 25 mg tablet 50 mg PO DAILY atorvastatin 20 mg tablet 20 mg PO QDAY amlodipine 5 mg tablet 5 mg PO QDAY tacrolimus 1 mg capsule 1 mg PO BID Patient Comments: TAKE 1 CAPSULE BY MOUTH TWICE DAILY TAKE ALONG WITH 0.5 MG CAPSULE prednisone 5 mg tablet 5 mg PO QDAY mycophenolate mofetil 250 mg capsule 250 mg PO .3 cap QAM and 2 Caps Patient Comments: TAKE 3 CAPSULES BY MOUTH EVERY MORNING AND 2 CAPSULES EVERY EVENING tacrolimus 0.5 mg capsule 0.5 mg PO BID Patient Comments: TAKE 1 CAPSULE BY MOUTH TWICE DAILY WITH 1 MG CAPSULE FOR TOTAL DAILY DOSE OF 1.5MG omeprazole 20 mg capsule,delayed release(DR/EC) 20 mg PO DAILY Follow Up/Referrals: Tammy Moreira MD [Primary Care Provider] - Stand Alone Forms: [employer] Info Instructions
--- NOTE | 2023-04-28 13:40 | CRLHL7_ITS ---
For Patients: As a result of the Cures Act, medical imaging exams and procedure reports are released immediately into your electronic medical record. You may view this report before your referring provider. If you have questions, please contact your health care provider. INDICATION: Cough. Weight loss. Comparison: 05/17/2022. FINDINGS: A portable AP view of the chest was obtained. The cardiac silhouette and pulmonary vasculature are within normal limits. The lungs are clear bilaterally. IMPRESSION: No evidence of acute pulmonary disease. Dictated by Rufino Alexander MD @ 04/28/2023 2:58:53 PM (Electronically Signed)
[2023-04-28 14:05] LABS: Lactate* 0.9 mmol/L (0.5-1.9)
[2023-04-28 14:06] LABS: Basophils Absolute Auto 0.01 K/uL (0.00-0.30); Basophils Percent Auto 0.2 % (0.0-3.0); Eosinophils Absolute Auto 0.02 K/uL (0.00-0.50); Eosinophils Percent Auto 0.4 % (0.0-7.0); Hematocrit 32.2 % (33.0-51.0); Hemoglobin* 10.4 gm/dL (12.0-16.0); Immature Granulocytes Abs Auto 0.01 K/uL (0.00-0.30); Immature Granulocytes Pct Auto 0.2 %; Lymphocytes Percent Auto 12.7 % (20-44); Mean Corpuscular HGB Conc 32 gm/dL (32-36); Mean Corpuscular Hemoglobin 31 pg (26-34); Mean Corpuscular Volume 96 fL (80-100); Monocytes Percent Auto 10.3 % (0.0-11.0); Neutrophils Percent Auto 76.2 % (42.0-72.0); Platelet Count* 117 K/uL (140-440); RDW Coefficient of Variation % 13.2 % (11.5-15.5); Red Blood Count 3.37 m/uL (4.00-5.20); White Blood Count* 5.03 K/uL (4.50-11.00)
[2023-04-28 14:07] LABS: PCR FLU A Negative PCR FLU A (Negative); PCR FLU B Negative PCR FLU B (Negative); PCR RSV Negative PCR RSV (Negative)
[2023-04-28] MEDS: 0.9 % SODIUM CHLORIDE 1000 ml 1,000 ML 500 ML IV (14:08)
[2023-04-28 14:11] LABS: SARS PCR* POSITIVE SARS-CoV-2 (Negative)
[2023-04-28 14:13] LABS: Slide Review Reflex No
[2023-04-28 14:33] LABS: Chloride* 110 mmol/L (96-114)
[2023-04-28 14:34] LABS: Albumin* 3.6 g/dL (3.3-5.0); Potassium* 4.4 mmol/L (3.6-5.1); Sodium* 133 mmol/L (135-149)
[2023-04-28 14:37] LABS: Alanine Aminotransferase* 9 U/L (4-35); Alkaline Phosphatase* 60 U/L (40-150); Anion Gap 7 mEq/L (7-15); Aspartate Amino Transferase* 15 U/L (12-35); Bilirubin Total* 0.5 mg/dL (0.1-1.5); Blood Urea Nitrogen* 28 mg/dL (7-30); Calcium* 8.8 mg/dL (8.4-10.6); Carbon Dioxide* 16 mmol/L (20-32); Creatinine* 1.6 mg/dL (0.5-1.5); Est. Creatinine Clearance* 22.41; Estimated Glomerular Filt Rate 35 ml/min; Glucose* 76 mg/dL (60-115); Lipase* 73 U/L (23-300); Magnesium* 1.4 mg/dL (1.5-2.6); Total Protein* 6.6 g/dL (6.0-8.3)
[2023-04-28 14:48] LABS: NT Pro B Type NatriureticPept* 8600 pg/mL
[2023-04-28 14:54] LABS: Procalcitonin* 0.05 ng/mL (<0.50)
[2023-04-28 14:56] LABS: Troponin I* < 0.01 ng/mL (0.01-0.04)
[2023-04-30 20:18] LABS: Tacrolimus by HPLC-MS/MS 12.3 ng/mL
== END 2023-04-28 17:49 | disposition home or self-care (01) ==
PROVIDERS: Emergency Provider Family Medicine; PCP Internal Medicine
DX: U07.1 COVID-19 (principal); E83.42 Hypomagnesemia; Z94.0 Kidney transplant status
CPT/HCPCS: 36415; 71045; 80053; 80180; 80197; 81001; 83605; 83690; 83735; 83880; 84145; 84484; 85025; 86140; 87045; 87046; 87086; 87177; 87209; 87427; 87493; 87631; 94761; 96365; 99284; 99285; J3475; J7030; J7050

== ENCOUNTER 2023-04-29 18:00 | Outpatient (RCR) | payer BC, SELFPAY ==
[2023-04-29 18:23] VITALS: BP 141/86; PULSE 70; RESP 18; TEMP 36.8; O2SAT 96
[2023-04-29 19:00] VITALS: BP 155/82; PULSE 64; RESP 16; TEMP 37.1
[2023-04-30 16:49] VITALS: BP 169/85; PULSE 66; RESP 18; TEMP 36.6; O2SAT 96
[2023-04-30 18:30] VITALS: BP 146/87; PULSE 63; RESP 18; TEMP 36.9; O2SAT 94
--- NOTE | 2023-04-30 19:25 | PC.NURSE ---
Patient tolerated Remdesivir infusion well with no complaints or side effects. Patient VSS and afebrile post infusion. PIV in left FA discontinued catheter intact. Patient discharged accompanied by her via wheelchair.
== END 2023-04-30 19:47 | disposition home or self-care (01) ==
LOC: MS OUT 18:00
PROVIDERS: PCP Internal Medicine; Visit Provider Family Medicine
DX: U07.1 COVID-19 (principal)
CPT/HCPCS: 96365; 99211; J7050

== ENCOUNTER 2023-08-09 14:27 | Emergency (ER) | payer BC, SELFPAY ==
[2023-08-09 14:36] VITALS: BP 144/66; PULSE 59; RESP 18; TEMP 36.3; O2SAT 95; BMI 14.6
[2023-08-09 15:19] LABS: Basophils Absolute Auto 0.01 K/uL (0.00-0.30); Basophils Percent Auto 0.1 % (0.0-3.0); Eosinophils Absolute Auto 0.03 K/uL (0.00-0.50); Eosinophils Percent Auto 0.4 % (0.0-7.0); Hematocrit 28.3 % (33.0-51.0); Immature Granulocytes Abs Auto 0.01 K/uL (0.00-0.30); Immature Granulocytes Pct Auto 0.1 %; Lymphocytes Percent Auto 11.9 % (20-44); Mean Corpuscular HGB Conc 32 gm/dL (32-36); Mean Corpuscular Hemoglobin 30 pg (26-34); Mean Corpuscular Volume 94 fL (80-100); Monocytes Percent Auto 4.7 % (0.0-11.0); Neutrophils Percent Auto 82.8 % (42.0-72.0); Platelet Count* 200 K/uL (140-440); RDW Coefficient of Variation % 14.8 % (11.5-15.5); Red Blood Count 3.01 m/uL (4.00-5.20); White Blood Count* 6.83 K/uL (4.50-11.00)
--- NOTE | 2023-08-09 15:38 | ED_ITS ---
HPI - General Adult General Date Seen: 08/09/23 Chief complaint: Extremity Pain/Injury, Lower Stated complaint: knee wound infection Time Seen by Provider: 08/09/23 14:45 Source: patient Mode of arrival: ambulatory Limitations: no limitations History of Present Illness HPI narrative: Patient is a 68-year-old female presenting to the emergency department for a right knee wound. She is a chronically weak and cachectic individual who fell 6 weeks ago. She has been getting wound care by home health nurse to her right knee and right forehead since then. They were told today that the wound is not improving like he would have liked and she needs to see wound care. She stepped wound care appointment for next week but they want to get evaluated today to make sure there is no signs of infection. Have not noticed any increased symptoms. No pain when she is at rest. No other concerns noted. Denies fevers, chills, chest pain, shortness of breath, headache, vision changes, diarrhea, constipation. Her weakness is at her baseline. Related Data Home Medications Medication Instructions Recorded Confirmed Creon PO 07/22/23 Creon PO PRN 07/22/23 Tacrolimus PO QPM 07/22/23 acetaminophen 500 mg capsule 500 mg PO QID 07/22/23 07/22/23 aspirin 81 mg tablet,delayed 81 mg PO QDAY 07/22/23 07/22/23 release (Adult Aspirin Regimen) diphenoxylate-atropine 2.5 1 tab PO QID PRN 07/22/23 07/22/23 mg-0.025 mg tablet (Lomotil) esomeprazole magnesium 40 mg 40 mg PO QDAY 07/22/23 07/22/23 capsule,delayed release (Nexium) hydromorphone 2 mg tablet 2 mg PO QID PRN 07/22/23 07/22/23 (Dilaudid) loperamide 2 mg capsule 2 mg PO QID PRN 07/22/23 07/22/23 multivitamin 1 tab PO QAM 07/22/23 07/22/23 quetiapine 25 mg tablet (Seroquel) 25 mg PO QPM 07/22/23 07/22/23 sertraline 25 mg tablet 25 mg PO QDAY 07/22/23 07/22/23 tacrolimus 1 mg capsule, 2 mg PO QAM 07/22/23 07/22/23 immediate-release torsemide 100 mg tablet 100 mg PO ONCE PRN 07/22/23 07/22/23 amlodipine 10 mg tablet 10 mg PO QDAY 08/08/23 Previous Rx's Medication Instructions Recorded ondansetron 4 mg disintegrating 4 mg PO Q6H PRN nausea and 08/08/23 tablet vomiting #30 tabs ondansetron 4 mg disintegrating 4 mg PO Q6H #20 tabs 08/09/23 tablet Allergies Allergy/AdvReac Type Severity Reaction Status Date / Time No Known Drug Allergies Allergy Verified 07/22/23 15:36 Review of Systems Status of ROS: Reports: 10 or more systems reviewed and unremarkable except as noted in History and below [facility] Medical History History of hypertension ?Z86.79 - Personal history of other diseases of the circulatory system (ICD- 10) History of atrial fibrillation ?Z86.79 - Personal history of other diseases of the circulatory system (ICD- 10) Surgical History History of heart artery stent (2005) ?Z95.5 - Presence of coronary angioplasty implant and graft (ICD-10) History of parathyroidectomy ?E89.2 - Postprocedural hypoparathyroidism (ICD-10) History of basal cell carcinoma excision ?Z98.890 - Other specified postprocedural states (ICD-10) ?Z85.828 - Personal history of other malignant neoplasm of skin (ICD-10) History of squamous cell carcinoma excision ?Z98.890 - Other specified postprocedural states (ICD-10) ?Z85.9 - Personal history of malignant neoplasm, unspecified (ICD-10) Family History Mother High blood pressure Colon cancer, Onset Age: 50 Diabetes Alcohol dependence Father Heart disease Social History What is your current living situation?: I presently have a place to live Problems where you live: no known problems In the past 12 months, utilities in danger of being shut off: no In past 12 months, lack of transportation kept you from medical appts, meetings, work, or getting things needed for daily living: no In the past 12 mos, have been you worried that your food would run out before you had money to buy more?: never true In the past 12 mos, the food you bought just didn't last and you didn't have money to buy more?: never true Smoking Status: Current every day smoker What tobacco products do you use: cigarettes Smoking packs per day: 0.5 Smoking cigarettes per day: 10.0 Do you use any of these nicotine containing products: None Second hand tobacco smoke exposure: No How often do you have a drink containing alcohol: never AUDIT-C Alcohol total score: 0 Non-prescribed substance use: denies use How often does anyone, including family, friends and others, physically hurt you : never How often does anyone, including family, friends and others, insult or talk down to you: never How often does anyone, including family, friends and others, threaten you with harm: never How often does anyone, including family, friends and others, scream or curse at you: never Little interest or pleasure in doing things: not at all Feeling down, depressed, or hopeless: not at all service: No Exam Narrative: Exam Narrative: Const: Well-nourished, Well-developed, in no distress Eyes: PERRL, no conjunctival injection, and symmetrical lids HENT: Atraumatic external nose and ears. Moist mucous membranes. Neck: Symmetric, trachea midline, No thyromegaly. CVS: RRR, No murmurs or gallops. Peripheral pulses 2+ and equal in all extremities RESP: Unlabored respiratory effort. Clear to auscultation bilaterally. GI: Nontender/Nondistended, No rebound or guarding. MSK:Extremities w/o deformity, Normal Active ROM Skin: Warm, Dry. Wound noted to right forehead about 1 cm in diameter and another wound noted about 2 cm distal to right knee about 1 and a 1/2 cm in size. Both are cool to the touch in no obvious erythema. Granulation tissue seen at wound edges. Neuro: Normal Muscle tone, No focal neurological deficits. Psych: Awake, Alert, & Oriented x3. Appropriate mood and affect. Const: Vital Signs, click to edit/add: Vital Signs - 24 hr 08/09/23 14:36 Temperature 97.3 F L Pulse Rate [Right Pulse Oximeter] 59 L Respiratory Rate 18 Blood Pressure [Ri ght Upper Arm] 144/66 H Pulse Oximetry 95 Oxygen Delivery Me thod Room Air Course Vital Signs Vital signs: Initial Vital Signs Temperature 97.3 F L 08/09/23 14:36 Temperature Source Temporal Artery Scan 08/09/23 14:36 Pulse Rate 59 L 08/09/23 14:36 Respiratory Rate 18 08/09/23 14:36 Blood Pressure 144/66 H 08/09/23 14:36 Blood Pressure Mean 92 08/09/23 14:36 Blood Pressure Position Sitting 08/09/23 14:36 Pulse Oximetry 95 08/09/23 14:36 Oxygen Delivery Method Room Air 08/09/23 14:36 Vital Signs Temperature 97.3 F L 08/09/23 14:36 Pulse Rate 59 L 08/09/23 14:36 Respiratory Rate 18 08/09/23 14:36 Blood Pressure 144/66 H 08/09/23 14:36 Pulse Oximetry 95 08/09/23 14:36 Oxygen Delivery Method Room Air 08/09/23 14:36 Temperature 97.3 F L 08/09/23 14:36 Pulse Rate 59 L 08/09/23 14:36 Respiratory Rate 18 08/09/23 14:36 Blood Pressure 144/66 H 08/09/23 14:36 Pulse Oximetry 95 08/09/23 14:36 Oxygen Delivery Method Room Air 08/09/23 14:36 Medical Decision Making MDM Narrative Medical decision making narrative: Patient is 68-year-old female presenting to the emergency department for right knee wound evaluation. On my evaluation does not look infected. I do not think it appears to be osteomyelitis at this time as I do not see any bone protrusion right now I do see a lot of granulation tissue which is a sign of wound healing. The wound is cool to the touch. I will check a CBC and BMP to look for any systemic issues. This is done and both look normal. Considering she is otherwise doing well I believe she is safe for discharge and can follow up with wound care next week for her 1st appointment. Her and her are agreeable to this plan. Of note the patient recently had her tube feeding and she was gets nauseated afterwards. She usually takes so for Zofran for it but ran out so I will give her a prescription Lab Data Labs: Lab Results 08/09/23 Range/Units 15:03 WBC 6.83 (4.50-11.00) K/uL RBC 3.01 L (4.00-5.20) m/uL Hgb 9.0 L (12.0-16.0) gm/dL Hct 28.3 L (33.0-51.0) % MCV 94 (80-100) fL MCH 30 (26-34) pg MCHC 32 (32-36) gm/dL RDW Coeff of [place]ida 14.8 (11.5-15.5) % Plt Count 200 (140-440) K/uL Neut % (Auto) 82.8 H (42.0-72.0) % Lymph % (Auto) 11.9 L (20-44) % [place] % (Auto) 4.7 (0.0-11.0) % Eos % (Auto) 0.4 (0.0-7.0) % Baso % (Auto) 0.1 (0.0-3.0) % Neut # (Auto) 5.70 (1.7-7.0) K/uL Lymph # (Auto) 0.80 L (0.90-2.90) K/uL [place] # (Auto) 0.30 (0.00-0.90) K/UL Eos # (Auto) 0.03 (0.00-0.50) K/uL Baso # (Auto) 0.01 (0.00-0.30) K/uL Abs Immat Gran (auto) 0.01 (0.00-0.30) K/uL Imm/Tot Granulo (auto) 0.1 % Sodium 132 L (135-149) mmol/L Potassium 5.0 (3.6-5.1) mmol/L Chloride 107 (96-114) mmol/L Carbon Dioxide 19 L (20-32) mmol/L Anion Gap 6 L (7-15) mEq/L BUN 30 (7-30) mg/dL Creatinine 0.9 (0.5-1.5) mg/dL Estimated Creat Clear 33.46 Estimated GFR 69 ml/min Glucose 152 H (60-115) mg/dL Calcium 8.8 (8.4-10.6) mg/dL Discharge Plan Discharge Clinical Impression: Encounter for assessment of wound Patient Disposition: Home, Self-Care Condition: Stable Instructions: Chronic Wounds (ED) Additional Instructions: Make sure to go to her wound care evaluation next week. She started developing fever or worsening weakness or any other new or worsening symptoms return to the emergency department for re-evaluation Prescriptions: New ondansetron 4 mg tablet,disintegrating 4 mg PO Q6H Qty: 20 0RF No Action quetiapine [Seroquel] 25 mg tablet 25 mg PO QPM aspirin [Adult Aspirin Regimen] 81 mg tablet,delayed release (DR/EC) 81 mg PO QDAY acetaminophen 500 mg capsule 500 mg PO QID diphenoxylate-atropine [Lomotil] 2.5-0.025 mg tablet 1 tab PO QID PRN esomeprazole magnesium [Nexium] 40 mg capsule,delayed release(DR/EC) 40 mg PO QDAY hydromorphone [Dilaudid] 2 mg tablet 2 mg PO QID PRN Creon PO loperamide 2 mg capsule 2 mg PO QID PRN multivitamin Tablet 1 tab PO QAM sertraline 25 mg tablet 25 mg PO QDAY tacrolimus 1 mg capsule 2 mg PO QAM Tacrolimus 2.4 mg PO QPM torsemide 100 mg tablet 100 mg PO ONCE PRN Creon 36 units PO PRN amlodipine 10 mg tablet 10 mg PO QDAY ondansetron 4 mg tablet,disintegrating 4 mg PO Q6H PRN (Reason: nausea and vomiting) Qty: 30 3RF Follow Up/Referrals: Tammy Moreira MD [Primary Care Provider] - Stand Alone Forms: [facility] Info Instructions
[2023-08-09 15:50] LABS: Slide Review Reflex No
[2023-08-09 15:56] LABS: Chloride* 107 mmol/L (96-114); Sodium* 132 mmol/L (135-149)
[2023-08-09 15:59] LABS: Anion Gap 6 mEq/L (7-15); Blood Urea Nitrogen* 30 mg/dL (7-30); Calcium* 8.8 mg/dL (8.4-10.6); Carbon Dioxide* 19 mmol/L (20-32); Creatinine* 0.9 mg/dL (0.5-1.5); Est. Creatinine Clearance* 33.46; Estimated Glomerular Filt Rate 69 ml/min; Glucose* 152 mg/dL (60-115)
== END 2023-08-09 16:35 | disposition home or self-care (01) ==
PROVIDERS: Emergency Provider Student in an Organized Health Care Education/Training Program; PCP Internal Medicine
DX: S81.001A Unspecified open wound, right knee, initial encounter (principal)
CPT/HCPCS: 36415; 80048; 85025; 99282; 99283

== ENCOUNTER 2023-08-14 07:54 | Outpatient (CLI) | payer BC, SELFPAY | END 2023-08-14 07:55 | disposition home or self-care (01) | LOC: WOUND 07:56 | PROVIDERS: PCP Internal Medicine; Visit Provider Surgery | DX: S81.001A Unspecified open wound, right knee, initial encounter (principal); S01.01XA Laceration without foreign body of scalp, initial encounter; W19.XXXA Unspecified fall, initial encounter; L89.153 Pressure ulcer of sacral region, stage 3; Z93.1 Gastrostomy status | CPT/HCPCS: 11043; 87070; 87186; 97597; G0463 ==

== ENCOUNTER 2023-08-19 11:01 | Outpatient (CLI) | payer BC, SELFPAY ==
--- OUTSIDE RECORDS SUMMARY | 2023-08-23 01:08 | XMS_ITS | Continuity of Care Document ---
Author Name Unknown Organization [facility] Address [address] [address] [place] [address] Phone Care Team Providers Care Advanced Developer Name Role Phone Lady Torres MD Unavailable Unavailable Allergies, Adverse Reactions, Alerts Substance Reaction Status Criticality No Known allergies Medications Medication Instructions Dosage Effective Dates (start - stop) Status Comments clonidine 0.1 mg Tab every day - Active Niaspan Extended-Release 500 mg 24 hr Tab Take one tablet by mouth daily - Active Crestor 5 mg Tab Take one tablet by mouth daily - Active Toprol XL 100 mg 24 hr Tab Take one tablet by mouth daily - Active Norvasc 5 mg Tab Take 1 tablet by mouth daily - Active RENAL CAPS (unknown strength) every day Not Available - Active Renagel 800 mg Tab Use as directed, 9 tablets daily. - Active Procedures Procedure Date Colorectal Ca Scrn Not Hi Risk Advance Directives Directive Yes / No Effective Date File Name No Information Encounters Encounter Description Practice Location Reason(s) For Visit Diagnoses Date Provider Providers Copied on Encounter [facility], [address] [address], [place], [place], [id number], [place] tel:[phone] [facility] Colon Cancer ScreeningDiverticul osis Of ColonFamily Hx Colon Cancer Jan-200 6 Brian Narayanan. [address], [place], [place], [id number] , [place]. tel:[phone] Referring Provider: Marisol Anaya, [address], [place], [address]. tel:[phone] Family History Family Member Type Diagnosis Age At Onset No Information Payers Payer name Insurance type Covered constitution party ID Authoriza tion(s) Florentin Mullins CI [id number] Social History Type Description Quantity Date Captured Comments Sex Female Smoking Status No Information Chief Complaint And Reason For Visit No Information Reason For Referral Reason For Referral No Information History Of Present Illness Encounter Date Complaint History Of Prese nt Illness No Information Functional Status Date Functional Assessmen t No Information Instructions Date Instruction Additional Infor mation No Information Assessments Type Assessment Date No Information Patient Care Teams Name Effective Dates (start - stop) Status Members No Information
== END 2023-08-19 11:02 | disposition home or self-care (01) ==
LOC: AMB 08-23 01:06
PROVIDERS: PCP Internal Medicine; Visit Provider Emergency Medicine
DX: R07.89 Other chest pain (principal)
CPT/HCPCS: A0425; A0427

== ENCOUNTER 2023-08-19 11:43 | Inpatient (IN) | payer BC, SELFPAY ==
[2023-08-19] VITALS (48 sets, daily range): BP systolic 90–145; BP diastolic 57–80; PULSE 70–77; RESP 24–30; TEMP 36.6–38.8; O2SAT 91–97; BMI 16.1; BMI 16.7
--- NOTE | 2023-08-19 11:53 | XR_ITS ---
Patient: LINO SUGGS Facility:?[facility] Patient ID:?[id number] Site Patient [id number]:?[id number]. Site :?[id number] Study:?XRay-Chest 2 view-08/19/2023 1:52:36 PM Ordering Physician:Krysten Hawkins Final Report: Indication: Chest pain. Technique: One view(s) of the chest. Comparison: 05/23/2022. Findings: Normal size of the cardiomediastinal silhouette. Atherosclerotic aortic calcifications. Pulmonary vasculature is normal. Lungs are hyperinflated with flattened diaphragm. No focal consolidation. No pleural effusion or pneumothorax. Atherosclerotic subclavian and axillary artery calcifications. Osseous demineralization. No acute osseous abnormality identified. Impression: Hyperinflated lungs, which can be seen in the setting of COPD/emphysema. No focal consolidation. Dictated by Maureen Walden MD @ 08/19/2023 1:59:42 PM Signed by:?Maureen Walden MD @08/19/2023 1:59:42 PM (Electronic Signature)
[2023-08-19] MEDS: ACETAMINOPHEN 500 MG TABLET PO (12:08)
--- NOTE | 2023-08-19 12:08 | ED_ITS ---
HPI - Chest Pain General Date Seen: 08/19/23 Chief Complaint: Chest Pain Stated Complaint: Chest pain Time Seen by Provider: 08/19/23 11:47 Source: patient and family Mode of arrival: EMS Limitations: no limitations History of Present Illness HPI narrative: Patient is a 68-year-old female presenting to the emergency department for chest pain. 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 She was there for almost 3 months and was discharged on palliative care. She was doing well up until yesterday which she has been having this severe chest pain. Denies ever having pain like this before. The pain seems to come and go. Was brought in by EMS today and her children who have advance directives on her want everything to be done. Her was in the room with her now states the patient was telling him that she wants everything done. It is a severe midsternal chest pain. Patient denies abdominal pain. Does feel some lightheadedness. Does state when she was discharged kidneys were function at about 25%. Denies fevers but does have a temp 101.8? here. Is not aware of any sick contacts. Related Data Home Medications Medication Instructions Recorded Confirmed Creon PO 07/22/23 Creon PO PRN 07/22/23 Tacrolimus PO QPM 07/22/23 acetaminophen 500 mg capsule 500 mg PO QID 07/22/23 07/22/23 aspirin 81 mg tablet,delayed 81 mg PO QDAY 07/22/23 07/22/23 release (Adult Aspirin Regimen) diphenoxylate-atropine 2.5 1 tab PO QID PRN 07/22/23 07/22/23 mg-0.025 mg tablet (Lomotil) esomeprazole magnesium 40 mg 40 mg PO QDAY 07/22/23 07/22/23 capsule,delayed release (Nexium) hydromorphone 2 mg tablet 2 mg PO QID PRN 07/22/23 07/22/23 (Dilaudid) loperamide 2 mg capsule 2 mg PO QID PRN 07/22/23 07/22/23 multivitamin 1 tab PO QAM 07/22/23 07/22/23 quetiapine 25 mg tablet (Seroquel) 25 mg PO QPM 07/22/23 07/22/23 sertraline 25 mg tablet 25 mg PO QDAY 07/22/23 07/22/23 tacrolimus 1 mg capsule, 2 mg PO QAM 07/22/23 07/22/23 immediate-release torsemide 100 mg tablet 100 mg PO ONCE PRN 07/22/23 07/22/23 amlodipine 10 mg tablet 10 mg PO QDAY 08/08/23 Previous Rx's Medication Instructions Recorded ondansetron 4 mg disintegrating 4 mg PO Q6H PRN nausea and 08/08/23 tablet vomiting #30 tabs ondansetron 4 mg disintegrating 4 mg PO Q6H #20 tabs 08/09/23 tablet amoxicillin 500 mg-potassium 1 tab feeding tube BID 7 days #14 08/14/23 clavulanate 125 mg tablet tabs (Augmentin) Allergies Allergy/AdvReac Type Severity Reaction Status Date / Time No Known Drug Allergies Allergy Verified 07/22/23 15:36 Review of Systems Status of ROS Reports: 10 or more systems reviewed and unremarkable except as noted in History and below [facility] Medical History History of hypertension ?Z86.79 - Personal history of other diseases of the circulatory system (ICD- 10) History of atrial fibrillation ?Z86.79 - Personal history of other diseases of the circulatory system (ICD- 10) Surgical History History of heart artery stent (2005) ?Z95.5 - Presence of coronary angioplasty implant and graft (ICD-10) History of parathyroidectomy ?E89.2 - Postprocedural hypoparathyroidism (ICD-10) History of basal cell carcinoma excision ?Z98.890 - Other specified postprocedural states (ICD-10) ?Z85.828 - Personal history of other malignant neoplasm of skin (ICD-10) History of squamous cell carcinoma excision ?Z98.890 - Other specified postprocedural states (ICD-10) ?Z85.9 - Personal history of malignant neoplasm, unspecified (ICD-10) Family History Mother High blood pressure Colon cancer, Onset Age: 50 Diabetes Alcohol dependence Father Heart disease Social History What is your current living situation?: I presently have a place to live Problems where you live: no known problems In the past 12 months, utilities in danger of being shut off: no In past 12 months, lack of transportation kept you from medical appts, meetings, work, or getting things needed for daily living: no In the past 12 mos, have been you worried that your food would run out before you had money to buy more?: never true In the past 12 mos, the food you bought just didn't last and you didn't have money to buy more?: never true Smoking Status: Current every day smoker What tobacco products do you use: cigarettes Smoking packs per day: 0.5 Smoking cigarettes per day: 10.0 Do you use any of these nicotine containing products: None Second hand tobacco smoke exposure: No How often do you have a drink containing alcohol: never AUDIT-C Alcohol total score: 0 Non-prescribed substance use: denies use How often does anyone, including family, friends and others, physically hurt you : never How often does anyone, including family, friends and others, insult or talk down to you: never How often does anyone, including family, friends and others, threaten you with harm: never How often does anyone, including family, friends and others, scream or curse at you: never Little interest or pleasure in doing things: not at all Feeling down, depressed, or hopeless: not at all service: No Exam Narrative Exam Narrative: Const: Cachectic appearing, in moderate distress Eyes: PERRL, no conjunctival injection, and symmetrical lids HENT: Atraumatic external nose and ears. Moist mucous membranes. Neck: Symmetric, trachea midline, No thyromegaly. CVS: RRR, No murmurs or gallops. Peripheral pulses 2+ and equal in all extrem ities RESP: Unlabored respiratory effort. Clear to auscultation bilaterally. Tachypneic GI: Nontender/Nondistended, No rebound or guarding. MSK:Extremities w/o deformity, Normal Active ROM Skin: Warm, Dry. No rashes or lesions. Neuro: Normal Muscle tone, No focal neurological deficits. Psych: Awake, Alert, & Oriented x3. Appropriate mood and affect. Const Vital Signs, click to edit/add: Vital Signs - 24 hr 08/19/23 11:48 08/19/23 13:06 08/19/23 13:07 Temperature 101.8 F H Pulse Rate 74 73 Pulse Rate [Right Pulse Oximeter] 72 Respiratory Rate 30 H Blood Pressure 90/57 L Blood Pressure [Right Upper Arm] 145/67 H Pulse Oximetry 95 96 96 Oxygen Delivery Method Room Air 08/19/23 13:15 08/19/23 13:30 08/19/23 13:31 Temperature Pulse Rate 72 72 72 Pulse Rate [Right Pulse Oximeter] Respiratory Rate Blood Pressure 112/69 Blood Pressure [Right Upper Arm] Pulse Oximetry 96 97 97 Oxygen Delivery Method 08/19/23 13:57 08/19/23 14:00 08/19/23 14:00 Temperature 100.3 F H Pulse Rate 72 71 Pulse Rate [Right Pulse Oximeter] Respiratory Rate Blood Pressure Blood Pressure [Right Upper Arm] Pulse Oximetry 96 97 Oxygen Delivery Method 08/19/23 14:00 08/19/23 14:01 Temperature 100.3 F H Pulse Rate 73 Pulse Rate [Right Pulse Oximeter] Respiratory Rate Blood Pressure 131/77 Blood Pressure [Right Upper Arm] Pulse Oximetry 97 Oxygen Delivery Method Course Vital Signs Vital signs: Initial Vital Signs Temperature 101.8 F H 08/19/23 11:48 Temperature Source Temporal Artery Scan 08/19/23 11:48 Pulse Rate 72 08/19/23 11:48 Pulse Rhythm Regular 08/19/23 11:48 Respiratory Rate 30 H 08/19/23 11:48 Blood Pressure 145/67 H 08/19/23 11:48 Blood Pressure Mean 93 08/19/23 11:48 Blood Pressure Position Sitting 08/19/23 11:48 Pulse Oximetry 95 08/19/23 11:48 Oxygen Delivery Method Room Air 08/19/23 11:48 Vital Signs Temperature 101.8 F H 08/19/23 11:48 Pulse Rate 72 08/19/23 11:48 Respiratory Rate 30 H 08/19/23 11:48 Blood Pressure 145/67 H 08/19/23 11:48 Pulse Oximetry 95 08/19/23 11:48 Oxygen Delivery Method Room Air 08/19/23 11:48 Temperature 100.3 F H 08/19/23 14:00 Pulse Rate 73 08/19/23 14:01 Respiratory Rate 30 H 08/19/23 11:48 Blood Pressure 131/77 08/19/23 14:01 Pulse Oximetry 97 08/19/23 14:01 Oxygen Delivery Method Room Air 08/19/23 11:48 Medications Administered Medications: Discontinued Medications Generic Name Dose Route Start Last Admin Trade Name Josefa PRN Reason Stop Dose Admin Acetaminophen 500 mg 08/19/23 12:00 08/19/23 12:08 Acetaminophen 500 Mg Tablet PO 08/19/23 12:01 500 mg ONCE ONE Administration Morphine Sulfate 4 mg 08/19/23 12:00 08/19/23 12:51 Morphine 4 Mg/Ml Inj IVP 08/19/23 12:01 4 mg ONCE ONE Administration Nitroglycerin 0.4 mg 08/19/23 12:00 08/19/23 12:40 Nitroglycerin 0.4 Mg Tab.Subl SUBLINGUAL 08/19/23 12:01 0.4 mg ONCE ONE Administration MDM - Chest Pain MDM Narrative Medical decision making narrative: Patient is a 68-year-old female presenting to the emergency department for chest pain. Chest pain started last night and has continued to into today. While mentioned her being discharged on palliative care her or her kids are not aware of this at all. has also mentioned that they want everything done. Due to her complicated history we will do a broad workup last this chest pain could be due from just about anything chest x-ray was ordered. Will do a CBC, CMP, COVID/flu/RSV, lactate, blood cultures, troponin, urinalysis. Patient was given Nitrol for chest pain along with morphine. She is satting well on room air. She has a fever of 101.8 and Tylenol was given. Lab work came back and a CBC shows hemoglobin 7.8 previous hemoglobin was 9 just 10 days ago. Did do a fecal occult which shows no signs of bleeding. She is also states she has not noticed any bleeding in her stool or black tarry stools. CMP shows no concerning findings. Kidney function is within normal limits. Troponin is less than 0.01 an EKG shows no concerning findings. Her pain did improve with the morphine and when he was speak to her and she states the pain is starting to come back little bit but feels like it is musculoskeletal in nature and is tender to palpation. Her temperature did come down to 100.3 after the Tylenol. She is still not requiring any oxygen. Lactate within normal limits. I am speaking to the male kidney transplant on-call provider, Dr. Tolliver. I spoke to her about the patient's urinalysis and it is a relatively week call for UTI but with her history and fever she does recommend treating it. I spoke to [facility] about possible transfer but they state they do not have beds available and do not have a wait list. Do this I will speak to our admitting provider. The admitting hospitalist accepted her for admission. Does recommend Rocephin for her UTI. Will also do a type and screaming give the patient packed red blood cells for her low hemoglobin. This low hemoglobin could very well be from her chronic medical issues. The kidney transplant provider does not think it would be from her transplant specifically. Patient is agreeable to this plan Lab Data Labs: Lab Results 08/19/23 08/19/23 08/19/23 Range/Units 12:44 12:45 14:55 WBC 9.54 (4.50-11.00) K/uL RBC 2.59 L (4.00-5.20) m/uL Hgb 7.8 L* (12.0-16.0) gm/dL Hct 24.4 L (33.0-51.0) % MCV 94 (80-100) fL MCH 30 (26-34) pg MCHC 32 (32-36) gm/dL RDW Coeff of Elida 15.1 (11.5-15.5) % Plt Count 248 (140-440) K/uL Neut % (Auto) 76.9 H (42.0-72.0) % Lymph % (Auto) 9.5 L (20-44) % [place] % (Auto) 12.9 H (0.0-11.0) % Eos % (Auto) 0.6 (0.0-7.0) % Baso % (Auto) 0.0 (0.0-3.0) % Neut # (Auto) 7.30 H (1.7-7.0) K/uL Lymph # (Auto) 0.90 (0.90-2.90) K/uL [place] # (Auto) 1.20 H (0.00-0.90) K/UL Eos # (Auto) 0.06 (0.00-0.50) K/uL Baso # (Auto) 0.00 (0.00-0.30) K/uL Abs Immat Gran (auto) 0.01 (0.00-0.30) K/uL Imm/Tot Granulo (auto) 0.1 % Sodium 136 (135-149) mmol/L Potassium 4.0 (3.6-5.1) mmol/L Chloride 111 (96-114) mmol/L Carbon Dioxide 19 L (20-32) mmol/L Anion Gap 6 L (7-15) mEq/L BUN 27 (7-30) mg/dL Creatinine 1.0 (0.5-1.5) mg/dL Estimated Creat Clear 35.74 Estimated GFR 61 ml/min Glucose 122 H (60-115) mg/dL Lactate 1.3 (0.5-1.9) mmol/L Calcium 8.8 (8.4-10.6) mg/dL Total Bilirubin 0.5 (0.1-1.5) mg/dL AST 18 (12-35) U/L ALT 17 (4-35) U/L Alkaline Phosphatase 80 (40-150) U/L Troponin I < 0.01 L (0.01-0.04) ng/mL Total Protein 6.4 (6.0-8.3) g/dL Albumin 3.1 L (3.3-5.0) g/dL Urine Color Yellow (Yellow) Urine Appearance Clear (Clear) Urine pH 5.5 (5.0-8.5) Ur Specific [place] 1.015 (1.000-1.030) Urine Protein 1+ A (Negative) Urine Glucose (UA) Negative (Negative) Urine Ketones Negative (Negative) Urine Blood Negative (Negative) Urine Nitrite Negative (Negative) Urine Bilirubin Negative (Negative) Urine Urobilinogen 0.2 (0.2-1.0) Ur Leukocyte Esterase Trace A (Negative) Urine RBC 0-2 (0-2) Urine WBC 10-25 A (0-5) Ur Squamous Epith Cells None (None-Few) Urine Bacteria Few A (None) Stool Occult Blood (Negative) SARS-CoV-2 (PCR) Negative SARS-CoV-2 (Negative) Influenza Type A (PCR) Negative PCR FLU A (Negative) Influenza Type B (PCR) Negative PCR FLU B (Negative) RSV (PCR) Negative PCR RSV (Negative) POC Troponin I 0.01 (0.01-0.04) ng/ml 08/19/23 Range/Units 15:00 WBC (4.50-11.00) K/uL RBC (4.00-5.20) m/uL Hgb (12.0-16.0) gm/dL Hct (33.0-51.0) % MCV (80-100) fL MCH (26-34) pg MCHC (32-36) gm/dL RDW Coeff of Elida (11.5-15.5) % Plt Count (140-440) K/uL Neut % (Auto) (42.0-72.0) % Lymph % (Auto) (20-44) % [place] % (Auto) (0.0-11.0) % Eos % (Auto) (0.0-7.0) % Baso % (Auto) (0.0-3.0) % Neut # (Auto) (1.7-7.0) K/uL Lymph # (Auto) (0.90-2.90) K/uL [place] # (Auto) (0.00-0.90) K/UL Eos # (Auto) (0.00-0.50) K/uL Baso # (Auto) (0.00-0.30) K/uL Abs Immat Gran (auto) (0.00-0.30) K/uL Imm/Tot Granulo (auto) % Sodium (135-149) mmol/L Potassium (3.6-5.1) mmol/L Chloride (96-114) mmol/L Carbon Dioxide (20-32) mmol/L Anion Gap (7-15) mEq/L BUN (7-30) mg/dL Creatinine (0.5-1.5) mg/dL Estimated Creat Clear Estimated GFR ml/min Glucose (60-115) mg/dL Lactate (0.5-1.9) mmol/L Calcium (8.4-10.6) mg/dL Total Bilirubin (0.1-1.5) mg/dL AST (12-35) U/L ALT (4-35) U/L Alkaline Phosphatase (40-150) U/L Troponin I (0.01-0.04) ng/mL Total Protein (6.0-8.3) g/dL Albumin (3.3-5.0) g/dL Urine Color (Yellow) Urine Appearance (Clear) Urine pH (5.0-8.5) Ur Specific [place] (1.000-1.030) Urine Protein (Negative) Urine Glucose (UA) (Negative) Urine Ketones (Negative) Urine Blood (Negative) Urine Nitrite (Negative) Urine Bilirubin (Negative) Urine Urobilinogen (0.2-1.0) Ur Leukocyte Esterase (Negative) Urine RBC (0-2) Urine WBC (0-5) Ur Squamous Epith Cells (None-Few) Urine Bacteria (None) Stool Occult Blood Negative (Negative) SARS-CoV-2 (PCR) (Negative) Influenza Type A (PCR) (Negative) Influenza Type B (PCR) (Negative) RSV (PCR) (Negative) POC Troponin I (0.01-0.04) ng/ml Imaging Data Chest x-ray: Attestation: I have reviewed the pertinent imaging results. Radiologist's impression: Hyperinflated lungs, which can be seen in the setting of COPD/emphysema. No focal consolidation. Dictated by Maureen Walden MD @ 08/19/2023 1:59:42 PM ECG Data Attestation: I personally reviewed and interpreted this ECG as follows: Prior ECG tracings: available for review Interpretation: Normal sinus rhythm rate 72 beats per minute, normal intervals, normal axis, no ST or T-wave abnormalities. Appears Similar to previous EKG on file Discharge Plan Discharge Clinical Impression: Immunosuppressed status, Acute UTI Patient Disposition: Admitted As Observation Condition: Improved Prescriptions: No Action quetiapine [Seroquel] 25 mg tablet 25 mg PO QPM aspirin [Adult Aspirin Regimen] 81 mg tablet,delayed release (DR/EC) 81 mg PO QDAY acetaminophen 500 mg capsule 500 mg PO QID diphenoxylate-atropine [Lomotil] 2.5-0.025 mg tablet 1 tab PO QID PRN esomeprazole magnesium [Nexium] 40 mg capsule,delayed release(DR/EC) 40 mg PO QDAY hydromorphone [Dilaudid] 2 mg tablet 2 mg PO QID PRN Creon PO loperamide 2 mg capsule 2 mg PO QID PRN multivitamin Tablet 1 tab PO QAM sertraline 25 mg tablet 25 mg PO QDAY tacrolimus 1 mg capsule 2 mg PO QAM Tacrolimus 2.4 mg PO QPM torsemide 100 mg tablet 100 mg PO ONCE PRN Creon 36 units PO PRN ondansetron 4 mg tablet,disintegrating 4 mg PO Q6H Qty: 20 0RF amlodipine 10 mg tablet 10 mg PO QDAY ondansetron 4 mg tablet,disintegrating 4 mg PO Q6H PRN (Reason: nausea and vomiting) Qty: 30 3RF amoxicillin-pot clavulanate [Augmentin] 500-125 mg tablet 1 tab feeding tube BID 7 Days Qty: 14 0RF Follow Up/Referrals: Tammy Moreira MD [Primary Care Provider] -
[2023-08-19] MEDS: NITROGLYCERIN 0.4 MG TAB.SUBL SUBLINGUAL (12:40)
[2023-08-19] MEDS: MORPHINE 4 MG/ML INJ IVP ×2 (12:51→20:31)
[2023-08-19 12:55] LABS: Eosinophils Absolute Auto 0.06 K/uL (0.00-0.50); Eosinophils Percent Auto 0.6 % (0.0-7.0); Hematocrit 24.4 % (33.0-51.0); Immature Granulocytes Abs Auto 0.01 K/uL (0.00-0.30); Immature Granulocytes Pct Auto 0.1 %; Lymphocytes Percent Auto 9.5 % (20-44); Mean Corpuscular HGB Conc 32 gm/dL (32-36); Mean Corpuscular Hemoglobin 30 pg (26-34); Mean Corpuscular Volume 94 fL (80-100); Monocytes Percent Auto 12.9 % (0.0-11.0); Neutrophils Percent Auto 76.9 % (42.0-72.0); Platelet Count* 248 K/uL (140-440); RDW Coefficient of Variation % 15.1 % (11.5-15.5); Red Blood Count 2.59 m/uL (4.00-5.20); White Blood Count* 9.54 K/uL (4.50-11.00)
[2023-08-19 12:57] LABS: Lactate Sepsis w/Reflex* 1.3 mmol/L (0.5-1.9)
[2023-08-19 12:59] LABS: Troponin, Point-of-Care* 0.01 ng/ml (0.01-0.04)
[2023-08-19 13:00] LABS: Hemoglobin* 7.8 gm/dL (12.0-16.0)
[2023-08-19 13:01] LABS: Slide Review Reflex No
[2023-08-19 13:08] LABS: Albumin* 3.1 g/dL (3.3-5.0)
[2023-08-19 13:09] LABS: Chloride* 111 mmol/L (96-114); Sodium* 136 mmol/L (135-149)
[2023-08-19 13:11] LABS: Anion Gap 6 mEq/L (7-15); Aspartate Amino Transferase* 18 U/L (12-35); Bilirubin Total* 0.5 mg/dL (0.1-1.5); Carbon Dioxide* 19 mmol/L (20-32); Est. Creatinine Clearance* 35.74; Estimated Glomerular Filt Rate 61 ml/min
[2023-08-19 13:12] LABS: Alanine Aminotransferase* 17 U/L (4-35); Alkaline Phosphatase* 80 U/L (40-150); Blood Urea Nitrogen* 27 mg/dL (7-30); Calcium* 8.8 mg/dL (8.4-10.6); Glucose* 122 mg/dL (60-115); Total Protein* 6.4 g/dL (6.0-8.3)
[2023-08-19 13:25] LABS: Troponin I* < 0.01 ng/mL (0.01-0.04)
[2023-08-19 13:34] LABS: PCR FLU A Negative PCR FLU A (Negative); PCR FLU B Negative PCR FLU B (Negative); PCR RSV Negative PCR RSV (Negative); SARS PCR* Negative SARS-CoV-2 (Negative)
[2023-08-19 15:16] LABS: Appearance Urine Clear (Clear); Bilirubin Urine Negative (Negative); Blood Urine Negative (Negative); Color Urine Yellow (Yellow); Glucose Urine Negative (Negative); Ketones Urine Negative (Negative); Leukocyte Esterase Urine Trace (Negative); Nitrite Urine Negative (Negative); Protein Urine 1+ (Negative); Specific Gravity Urine 1.015 (1.000-1.030); Urobilinogen Urine 0.2 (0.2-1.0); pH Urine 5.5 (5.0-8.5)
[2023-08-19 15:25] LABS: Fecal Occult Blood* Negative (Negative)
[2023-08-19 15:30] LABS: Bacteria Urine Few; RBC Urine 0-2 (0-2)
[2023-08-19] MEDS: MORPHINE 2 MG/ML inj IVP (15:54)
[2023-08-19] MEDS: cefTRIAXone 1 GM in 0.9 % SODIUM CHLORIDE Mini-bag 100 ML IVPB (16:23)
--- NOTE | 2023-08-19 16:55 | ED.NURSE ---
report given to ratna PALACIO
--- NOTE | 2023-08-19 17:24 | PM.IMHP1 ---
Hospitalist- H&P: FLACA History of Present Illness Date Seen: 08/20/23 Chief complaint: Chest pain Narrative: Jacqueline Galvan is a 68 year old female who presented to the ER today by ambulance for chest pain. Pain is intermittent, midsternal, worse with taking a deep breath, also seems to be improved in certain positions. Took ASA prior to ED arrival, then had nausea + vomiting. Has had nonbloody diarrhea for weeks, unchanged. ER Course and Findings - Temperature of 101.8 (patient was surprised by this, didn't feel febrile) - reassuring EKG, troponin, and CXR - Hgb of 7.8, negative FOBT (history of anemia while at [facility], typically 8-9 range) - normal LFTs, normal lactate Upon arrival to the floor, patient continued to have discomfort. CT PE and CT abdomen pelvis obtained, exhibiting 2 mm pericardial effusion, bilateral pleural effusions, cholelithiasis., 4.9cm infrarenal abdominal aortic aneurysm (known, last measured at 4.5cm). Sangita recently had a lengthy stay at [facility] (May 08, 2023-->July 15/2024) for FTT (found to have a 45 lb weight loss secondary to chronic mesenteric ischemia); stay was complicated by sigmoid diverticulitis with intramural abscess, gastric perforation during PEG placement (for weight loss and FTT), pleural effusions contributing to acute on chronic hypoxic respiratory failure and intubation + ICU stay, UTI, diarrhea. An excerpt from [facility] d/c summary is below. They had been DNR/DNI at [facility] but family and patient request Full Code status at this time. Since getting home, she has been slowly increasing her po intake (still utilizing tube feeds thrice daily), no significant GERD that she's noted. On PPI. She is living with her , has had help from children and Home Health. She has gained approximately 12 pounds since [facility] discharge. She is able to perform her own ADLs. Sangita has thrice weekly wound care treatments (M/F with , Saturday at our wound care center) for a forehead laceration, R knee abrasion (both sustained in a fall at [facility] on 07/01/23), and sacral ulcer. DETAILS OF HOSPITAL STAY REASON FOR ADMISSION Abdominal Aortic Aneurysm Without Rupture Unspecified (HCC) Weakness General Malnutrition Severe Protein-Calorie (HCC) HOSPITAL COURSE Background Ms. Jacqueline Galvan is a 67 y.o. female admitted on 05/08/2023 for abdominal pain, 45 lb weight loss and failure to thrive thought to be secondary to chronic mesenteric ischemia, javi esophagitis, and acute kidney injury. 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 On admission, CT scans were concerning for sigmoid diverticulitis with intramural abscess (1.8 cm) and colorectal surgery was consulted, who recommended 7 day course of ceftriaxone/metronidazole. Repeat CT on 05/12/2023 demonstrated abscess improvement. Due to severe malnutrition, a PEG tube was placed on 05/17/2023. There was concern for septic shock after PEG placement and patient was transferred to ICU. MICU 05/19-06/01/23: An exploratory laparotomy was performed on 05/19/2023, which showed gastric perforation in setting of recent IR-guided PEG placement. CT on 05/26/2023 showed interval decrease but persistence of moderate volume free fluid, for which a ALEKSANDRA drain was placed. Culture from peritoneal fluid grew Enterococcus faecium and antibiotics were broadened. Stay was further complicated by ischemic midline wound. She returned to the OR on 05/29/2023 for debridement, and wound vac placement. CRRT was initiated from 05/21-05/23 for worsening renal function. The patient had clinical improvement and continued on vancomycin monotherapy until 06/05/23. Patient was extubated on 05/29/23. Notably, she did develop post extubation vocal cord dysfunction. Medicine 06/01/23- 06/21/2023: On arrival, patient had oxygen requirement. BAL Cx on 05/23/23 grew filamentous fungi. A CT chest 06/03 showed scattered patchy groundglass opacities primarily involving the left upper lobe extending to the right lung, concerning for infection. Antimicrobials were initiated. A left thoracentesis was performed on 06/03. Given Jacqueline's mental status and failure of bedside swallow assessment, she was made NPO and continued to receive feeds through a feeding tube. She had some improvement with slow uptitration of feeds with the aid of our nutrition colleagues up to a maximum of 45 cc/hour and 1-2 BM's daily. Unfortunately, she experienced a progressive worsening of her course 06/19-06/21 with worsening mental status, PEDRITO, rapid re-escalation of diarrheic BM's (complicated by worsening sacral ulcer), and subsequent fluid overload ultimately resulting in acute on chronic hypoxic respiratory failure requiring re-escalation of cares to the ICU. MICU 06/21/23 - 06/26/23 Chronic hypoxic respiratory failure was thought to be multifactorial in origin related to edema and pleural effusions. She was managed with aggressive diuresis and thoracentesis on 06/22/23. Additionally, she was treated for a pseudomonal UTI with a course of Meropenem. Agitation was managed with Seroquel. Her oxygen requirements decreased and she was able to be weaned down. She was transferred to Hospital Internal Medicine on 06/26/2023. Medicine 06/26/23-07/16/2023 Care conference was held for patient on 06/28 with family. Goals of care discussions have been initiated, patient will continue to be DNR/DNI but would like escalation of care to ICU if needed. Patient had fall from her bed on 07/01 resulting in right frontal scalp hematoma. CT head negative for skull fracture or intracranial abnormality. TCGS was consulted who did not recommend operative intervention. Wound Care was involved for eschar management. Hematoma while slowly reabsorb over the next few months. Our surgical colleagues also removed midline lupe and ALEKSANDRA drain on 07/01. She was transitioned back to bolus feeds 250 mL TID with oral Creon. She tolerated feeds well especially with initiation of Zofran Her antidiarrheals (lomotil, loperamide) have been able to be scaled back, with 1-She can tolerate a regular diet, but only eats bites. Patient continued to have drops in her hemoglobin, anemia labs were consistent with anemia of chronic disease with hypoproliferative response to the degree of her anemia. We discussed with our nephrology colleagues about the role for CARLOS and it was decided that we would replete her iron first, given low iron and percent saturation. She was provided with IV Venofer (5 doses total) with increase in subjective energy, however increase in ferritin and trivial increase in iron as well. Ongoing goals of care discussions were had with the patient and her . In the end, they decided that going home despite risk of decompensation and repeat hospitalization was most important to them. They were discharged home on 07/16/2023. At that time, she was felt to be medically stable to discharge with the appropriate support system in place at home. Noah voiced that he would be able to hire help and contract with the appropriate services to get her home. Review of Systems Status of ROS: Reports: 10 or more systems reviewed and unremarkable except as noted in History and below [facility] Medical History (Updated 08/20/23 @ 00:03 by Kalie Panda MD) Cachexia ?R64 - Cachexia (ICD-10) Anemia in chronic renal disease ?N18.9 - Chronic kidney disease, unspecified (ICD-10) ?D63.1 - Anemia in chronic kidney disease (ICD-10) Mesenteric ischemia ?K55.9 - Vascular disorder of intestine, unspecified (ICD-10) Nicotine dependence ?F17.200 - Nicotine dependence, unspecified, uncomplicated (ICD-10) Coronary artery disease ?I25.10 - Atherosclerotic heart disease of rosebud coronary artery without angina pectoris (ICD-10) Abdominal aortic aneurysm ?I71.40 - Abdominal aortic aneurysm, without rupture, unspecified (ICD-10) COVID-19 vaccination declined ?Z28.21 - Immunization not carried out because of patient refusal (ICD-10) History of hypertension ?Z86.79 - Personal history of other diseases of the circulatory system (ICD-10) History of atrial fibrillation ?Z86.79 - Personal history of other diseases of the circulatory system (ICD-10) Surgical History (Updated 08/19/23 @ 20:54 by Kalie Panda MD) History of kidney transplant ?Z94.0 - Kidney transplant status (ICD-10) History of heart artery stent (2005) ?Z95.5 - Presence of coronary angioplasty implant and graft (ICD-10) History of parathyroidectomy ?E89.2 - Postprocedural hypoparathyroidism (ICD-10) History of basal cell carcinoma excision ?Z98.890 - Other specified postprocedural states (ICD-10) ?Z85.828 - Personal history of other malignant neoplasm of skin (ICD-10) History of squamous cell carcinoma excision ?Z98.890 - Other specified postprocedural states (ICD-10) ?Z85.9 - Personal history of malignant neoplasm, unspecified (ICD-10) Family History Mother High blood pressure Colon cancer, Onset Age: 50 Diabetes Alcohol dependence Father Heart disease Social History (Updated 08/19/23 @ 23:51 by Kalie Panda MD) Narrative: Sangita lives with in [place], has 4 adult children. Quit smoking recently. On admission 08/19/23, she and family request Full Code status. What is your current living situation?: I presently have a place to live Problems where you live: no known problems Problems where you live details: n/a In the past 12 months, utilities in danger of being shut off: no In past 12 months, lack of transportation kept you from medical appts, meetings, work, or getting things needed for daily living: no In the past 12 mos, have been you worried that your food would run out before you had money to buy more?: never true In the past 12 mos, the food you bought just didn't last and you didn't have money to buy more?: never true Smoking Status: Former smoker What tobacco products do you use: cigarettes Smoking quit date/years: <= 15 years ago Do you use any of these nicotine containing products: None Second hand tobacco smoke exposure: No How often do you have a drink containing alcohol: never AUDIT-C Alcohol total score: 0 Non-prescribed substance use: denies use Caffeine: Yes (2 cups of coffee a day) How often does anyone, including family, friends and others, physically hurt you: never How often does anyone, including family, friends and others, insult or talk down to you: never How often does anyone, including family, friends and others, threaten you with harm: never How often does anyone, including family, friends and others, scream or curse at you: never Little interest or pleasure in doing things: not at all Feeling down, depressed, or hopeless: not at all service: No Meds Home Medications and Allergies Home Medications Medication Instructions Recorded Confirmed Type acetaminophen 500 mg capsule 500 mg feeding tube QID 07/22/23 08/19/23 History hydromorphone 2 mg tablet 2 mg feeding tube QID PRN 07/22/23 08/19/23 History (Dilaudid) loperamide 2 mg capsule 2 mg feeding tube QID PRN 07/22/23 08/19/23 History quetiapine 25 mg tablet (Seroquel) 25 mg feeding tube HS PRN 07/22/23 08/19/23 History sertraline 25 mg tablet 25 mg feeding tube DAILY 07/22/23 08/19/23 History tacrolimus 1 mg capsule, 2 mg PO BID 07/22/23 08/19/23 History immediate-release torsemide 100 mg tablet 100 mg PO DAILY PRN 07/22/23 08/19/23 History amlodipine 10 mg tablet 10 mg feeding tube DAILY 08/08/23 08/19/23 History aspirin 81 mg chewable tablet 1 tab feeding tube DAILY 08/19/23 08/19/23 History cholecalciferol (vitamin D3) 25 25 mcg feeding tube DAILY 08/19/23 08/19/23 History mcg (1,000 unit) tablet collagenase clostridium histo. 250 1 applic topical DAILY 08/19/23 08/19/23 History unit/gram topical ointment (Santyl) [id number]-[id number] 1 cap PO BID 08/19/23 08/19/23 History 36,000-114,000-180,000 unit capsule,delay rel (Creon) multivitamin (Daily Multi-Vitamin 1 tab feeding tube DAILY 08/19/23 08/19/23 History tablet) mycophenolate mofetil 250 mg 750 mg PO DAILY 08/19/23 08/19/23 History capsule mycophenolate mofetil 250 mg 500 mg PO HS 08/19/23 08/19/23 History capsule (CellCept) ondansetron 4 mg disintegrating 4 mg PO DAILY 08/19/23 08/19/23 History tablet pantoprazole 40 mg tablet,delayed 40 mg PO DAILY 08/19/23 08/19/23 History release prednisone 5 mg tablet 5 mg feeding tube DAILY 08/19/23 08/19/23 History tacrolimus 0.2 mg oral granules in 0.4 mg PO HS 08/19/23 08/19/23 History packet (Prograf) Allergies Allergy/AdvReac Type Severity Reaction Status Date / Time No Known Drug Allergies Allergy Verified 07/22/23 15:36 Exam Narrative: Exam Narrative: GEN: Bed is laying in bed and appears cachectic and chronically ill. HEENT: EOMIs bilaterally, no scleral icterus. She has no JVD CV: RRR, No concerning murmurs. I am unable to auscultate a rub R: LCTA bilaterally without concerning wheezing, air movement adequate Ext: Hyper pigmentation of bilateral upper and lower extremities consistent with PVD, + clubbing bilateral hands Skin: Scattered bruising of extremities, R forehead laceration is covered, sacral wound not formally examined Neuro: No focal deficits Psych: Flat affect, defers answering most of our or even questions to son and Const: Vital Signs, click to edit/add: Vital Signs - 24 hr 08/19/23 11:48 08/19/23 13:06 08/19/23 13:07 Temperature 101.8 F H Pulse Rate 74 73 Pulse Rate [Right Pulse Oximeter] 72 Respiratory Rate 30 H Blood Pressure 90/57 L Blood Pressure [Ri ght Upper Arm] 145/67 H Pulse Oximetry 95 96 96 Oxygen Delivery Me thod Room Air 08/19/23 13:10 08/19/23 13:15 08/19/23 13:20 Temperature Pulse Rate 72 Pulse Rate [Right Pulse Oximeter] Respiratory Rate Blood Pressure Blood Pressure [Ri ght Upper Arm] Pulse Oximetry 97 96 97 Oxygen Delivery Me thod 08/19/23 13:30 08/19/23 13:31 08/19/23 13:40 Temperature Pulse Rate 72 72 Pulse Rate [Right Pulse Oximeter] Respiratory Rate Blood Pressure 112/69 Blood Pressure [Ri ght Upper Arm] Pulse Oximetry 97 97 96 Oxygen Delivery Me thod 08/19/23 13:57 08/19/23 14:00 08/19/23 14:00 Temperature 100.3 F H Pulse Rate 72 71 Pulse Rate [Right Pulse Oximeter] Respiratory Rate Blood Pressure Blood Pressure [Ri ght Upper Arm] Pulse Oximetry 96 97 Oxygen Delivery Me thod 08/19/23 14:00 08/19/23 14:01 08/19/23 14:02 Temperature 100.3 F H Pulse Rate 73 72 Pulse Rate [Right Pulse Oximeter] Respiratory Rate Blood Pressure 131/77 Blood Pressure [Ri ght Upper Arm] Pulse Oximetry 97 97 Oxygen Delivery Me thod 08/19/23 14:10 08/19/23 14:15 08/19/23 14:20 Temperature Pulse Rate 73 Pulse Rate [Right Pulse Oximeter] Respiratory Rate Blood Pressure Blood Pressure [Ri ght Upper Arm] Pulse Oximetry 97 95 95 Oxygen Delivery Me thod 08/19/23 14:30 08/19/23 14:31 08/19/23 14:40 Temperature Pulse Rate 73 74 Pulse Rate [Right Pulse Oximeter] Respiratory Rate Blood Pressure 132/75 Blood Pressure [Ri ght Upper Arm] Pulse Oximetry 96 96 96 Oxygen Delivery Me thod 08/19/23 14:45 08/19/23 14:54 08/19/23 15:00 Temperature Pulse Rate 74 73 Pulse Rate [Right Pulse Oximeter] Respiratory Rate Blood Pressure Blood Pressure [Ri ght Upper Arm] Pulse Oximetry 96 94 93 Oxygen Delivery Me thod 08/19/23 15:02 08/19/23 15:10 08/19/23 15:15 Temperature Pulse Rate 74 73 Pulse Rate [Right Pulse Oximeter] Respiratory Rate Blood Pressure 103/73 Blood Pressure [Ri ght Upper Arm] Pulse Oximetry 92 93 93 Oxygen Delivery Me thod 08/19/23 15:20 08/19/23 15:30 08/19/23 15:31 Temperature Pulse Rate 75 75 Pulse Rate [Right Pulse Oximeter] Respiratory Rate Blood Pressure 115/69 Blood Pressure [Ri ght Upper Arm] Pulse Oximetry 92 93 92 Oxygen Delivery Me thod 08/19/23 15:40 08/19/23 15:45 08/19/23 15:50 Temperature Pulse Rate 73 Pulse Rate [Right Pulse Oximeter] Respiratory Rate Blood Pressure Blood Pressure [Ri ght Upper Arm] Pulse Oximetry 93 93 93 Oxygen Delivery Me thod 08/19/23 16:00 08/19/23 16:02 08/19/23 16:03 Temperature Pulse Rate 75 74 73 Pulse Rate [Right Pulse Oximeter] Respiratory Rate Blood Pressure 96/68 Blood Pressure [Ri ght Upper Arm] Pulse Oximetry 94 94 93 Oxygen Delivery Me thod 08/19/23 16:10 08/19/23 16:12 08/19/23 16:15 Temperature 99.8 F H Pulse Rate 72 Pulse Rate [Right Pulse Oximeter] Respiratory Rate Blood Pressure Blood Pressure [Ri ght Upper Arm] Pulse Oximetry 93 93 Oxygen Delivery Me thod 08/19/23 16:20 08/19/23 16:30 08/19/23 16:31 Temperature Pulse Rate Pulse Rate [Right Pulse Oximeter] Respiratory Rate Blood Pressure Blood Pressure [Ri ght Upper Arm] Pulse Oximetry 93 94 [facility] 16:40 Temperature Pulse Rate Pulse Rate [Right Pulse Oximeter] Respiratory Rate Blood Pressure Blood Pressure [Ri ght Upper Arm] Pulse Oximetry 94 Oxygen Delivery [facility] Hospitalist - H&P: Result Labs Labs: Short CBC 08/19/23 Range/Units 12:44 WBC 9.54 (4.50-11.00) K/uL Hgb 7.8 L* (12.0-16.0) gm/dL Hct 24.4 L (33.0-51.0) % Plt Count 248 (140-440) K/uL BMP 08/19/23 12:44 Sodium 136 Potassium 4.0 Chloride 111 Carbon Dioxide 19 L BUN 27 Creatinine 1.0 Glucose 122 H Calcium 8.8 Cardiac Enzymes 08/19/23 Range/Units 12:44 Troponin I < 0.01 L (0.01-0.04) ng/mL Liver Function 08/19/23 Range/Units 12:44 Total Bilirubin 0.5 (0.1-1.5) mg/dL AST 18 (12-35) U/L ALT 17 (4-35) U/L Alkaline Phosphatase 80 (40-150) U/L Albumin 3.1 L (3.3-5.0) g/dL Urine 08/19/23 Range/Units 14:55 Urine Color Yellow (Yellow) Urine Appearance Clear (Clear) Urine pH 5.5 (5.0-8.5) Ur Specific Perry 1.015 (1.000-1.030) Urine Protein 1+ A (Negative) Urine Glucose (UA) Negative (Negative) Assessment and Plan Assessment and plan (1) Pericardial effusion: Problem comment: - likely source of chest pain, troponin negative x2 and EKG reassuring - will increase daily prednisone dose, obtain TTE to further evaluate, monitor on telemetry Status: Acute (2) Fever: Problem comment: - source unclear (possibly viral versus UTI versus gallbladder disease) - reassuring white blood count and lactate on admission, received 1 g of ceftriaxone in ER 08/18 - blood and urine cultures pending, will not continue antibiotics at this time, but monitor closely given high risk immunosuppressed status Status: Acute (3) Immunosuppressed status: Problem comment: - s/p renal transplant Status: Acute (4) Cachexia: Problem comment: - severe protein calorie malnutrition as evidenced by hypoalbuminemia, failure to thrive, BMI of 16 Status: Acute (5) G tube feedings: Problem comment: - currently utilizing thrice daily - nutrition referral placed Status: Acute (6) Anemia in chronic renal disease: Problem comment: - given hemoglobin of <8, patient amenable to 1 unit of PRBCs Status: Acute (7) Cholelithiasis: Problem comment: - Incidental finding on CT, negative Isaac sign and reassuring LFTs - will obtain ultrasound to further evaluate Status: Acute (8) Abdominal aortic aneurysm: Problem comment: - noted in [facility] evaluation, started on amlodipine 07/21 there (infrarenal, 3.0 cm as of 07/21 at [facility]), follows at [facility]ascular medicine, Dr. Darden - size of 4.9cm on 08/19/23 imaging Status: Acute (9) Coronary artery disease: Problem comment: - M.I. 2005 s/p stenting Status: Chronic Plan - per above - and son updated at bedside, they understand patient's tenuous status given acute illness + chronic comorbidities
--- NOTE | 2023-08-19 17:42 | CT_ITS ---
Patient: LINO SUGGS Facility:?[facility] RIS Patient ID:?[id number] Site Patient ID:?[id number]. Site :?[id number] Study:?CT-Chest PE W/95CC [id number]/15/2024 8:15:07 PM Ordering Physician:JIMMY Final Report: INDICATION: Fever; chest pain. COMPARISON: CT abdomen and pelvis August 19, 2023; CT chest, abdomen and pelvis without intravenous contrast May 23, 2022; CT abdomen and pelvis April 16, 2011 and July 28, 2012. TECHNIQUE: CT chest with intravenous contrast; coronal and sagittal reformats. FINDINGS: Bilateral pleural effusion. No CT evidence of acute or chronic pulmonary thromboembolism. Pericardial effusion with thickness measuring 2 cm; relatively new compared to the previous study from May 2022. Coronary artery calcifications. Elevated right Martinez-pressure with reflux of contrast into the inferior vena cava and hepatic veins. No discrete abnormal intra pulmonary nodular densities are identified. Atelectatic changes both lung bases. IMPRESSION: 1. Pericardial effusion and bilateral pleural effusion. 2. Compression atelectasis lower lobes both lungs. 3. No acute pulmonary infiltrates on either side. Please note that all CT scans at this facility use dose modulation, iterative reconstruction, and/or weight-based dosing when appropriate to reduce radiation dose to as low as reasonably achievable. Dictated by Marcial Enrique MD @ 08/19/2023 8:37:45 PM Signed by:?Marcial Enrique MD @08/19/2023 8:37:45 PM (Electronic Signature)
--- NOTE | 2023-08-19 17:42 | CT_ITS ---
Patient: LINO SUGGS Facility:?[facility] RIS Patient ID:?[id number] Site Patient ID:?[id number]. Site :?[id number] Study:?CT-Abdomen/Pelvis W/ 95CC ISOVUE 370-08/19/2023 7:33:30 PM Ordering Physician:JIMMY Final Report: INDICATION: Fever. COMPARISON: CT abdomen and pelvis without intravenous contrast April 16, 2011 and July 28, 2012; CT chest, abdomen and pelvis without intravenous or oral contrast May 23, 2022. TECHNIQUE: CT abdomen and pelvis with intravenous contrast; coronal and sagittal reformats. FINDINGS: Bilateral pleural effusion and pericardial effusion. No focal hepatic or splenic pathology. No pancreatic pathology. Distended gallbladder with cholelithiasis. No pericholecystic inflammatory changes. No adrenal pathology. Atrophic nonfunctioning lime kidneys bilateral. Infrarenal abdominal aortic aneurysm measuring 4.9 cm in diameter, was measuring 4.5 cm in 2022. No retroperitoneal lymphadenopathy. CT of the pelvis reveals diverticulosis sigmoid colon without any CT evidence of diverticulitis with abscess. Transplant kidney left iliac fossa and non functioning transplant kidney right iliac fossa. IMPRESSION: 1. Bilateral pleural effusion and pericardial effusion. 2. Gastrostomy tube in place. 3. Cholelithiasis 4. Transplant kidney left iliac fossa. 5. Diverticulosis sigmoid colon without any CT evidence of diverticulitis or abscess. 6. Infrarenal abdominal aortic aneurysm measuring 4.9 cm in diameter; it was measuring 4.5 cm in 2022. Please note that all CT scans at this facility use dose modulation, iterative reconstruction, and/or weight-based dosing when appropriate to reduce radiation dose to as low as reasonably achievable. Dictated by Marcial Enrique MD @ 08/19/2023 8:41:46 PM Signed by:?Marcial Enrique MD @08/19/2023 8:41:46 PM (Electronic Signature)
[2023-08-19 18:54] LABS: D Dimer Quantitative* 4.89 ug/ml (0.00-0.50)
[2023-08-19 19:01] LABS: Troponin I* < 0.01 ng/mL (0.01-0.04)
[2023-08-19] MEDS: SODIUM CHLORIDE 0.9 % (FLUSH) 10 ML SYRINGE 5 ML IVF (22:01)
[2023-08-20] VITALS (7 sets, daily range): BP systolic 94–144; BP diastolic 56–77; PULSE 60–76; RESP 20–26; TEMP 36.4–37.2; O2SAT 78–93; BMI 16.7
--- NOTE | 2023-08-20 | US_ITS ---
Patient: LINO SUGGS Facility:?[facility] RIS Patient ID:?[id number] Site Patient ID:?[id number]. Site :?[id number] Study:?US-Abdomen GB ONLY-08/20/2023 7:18:31 AM Ordering Physician:NORMA BUSTAMANTE Final Report: INDICATION: Cholelithiasis. COMPARISON: None available. TECHNIQUE: Limited sonographic examination of the gallbladder and CBD. FINDINGS: Gallbladder: Cholelithiasis. Top-normal uniform wall thickness measuring slightly less than 3 mm. Positive sonographic Isaac`s sign. CBD: 7mm Peritoneal Cavity: No significant ascites. Additional Findings: None. IMPRESSION: Cholelithiasis and a positive sonographic Isaac`s sign are consistent with acute cholecystitis in the correct clinical setting. No significant biliary ductal dilatation or pericholecystic fluid. Clinical correlation is recommended. Consider surgical consultation as clinically appropriate. Dictated by Sanket Marie MD @ 08/20/2023 7:28:40 AM Signed by:?Sanket Marie MD @08/20/2023 7:28:40 AM (Electronic Signature)
[2023-08-20] MEDS: MORPHINE 4 MG/ML INJ IVP ×4 (00:27→06:34)
[2023-08-20] MEDS: FUROSEMIDE 10 MG/ML inj 20 MG IVP (00:36)
--- NOTE | 2023-08-20 06:38 | PC.NURSE ---
End of shift [id number]: Pt is A&O x4, VSS and afebrile. She is Ax1 pivot to BSC. Pt has ongoing chest pain rating it at constant 8/10. PRN IV morphine given frequently overnight, last given @ 0630. PIV in right FA SL and PIV in left foot removed d/t unable to flush and very painful for pt. Hgb on admission was 7.8 so she received x1 unit PRBC?s with no noted transfusion reactions. TELE reads NSR to SR w/ BBB. Pt has scattered bruises on all extremities. She has a pressure sore on her coccyx, Mepilex changed 08/18. Her right anterior scalp has a lac covered by a Mepilex and she has a Stage II ulcer on her right kneecap in which the Mepilex was changed 08/18 d/t moderate serous drainage. TELE reads SR with BBB overnight. Pt is continent of B&B, no BM overnight. PEG tube LUQ intact; split 4x4 dressing applied. Pt refused PO meds overnight & also did not want meds through her PEG tube; she only requested IV meds- MD aware. Low U/O after PRBC?s & Lasix; bladder scanned for max 301 mL @ 0600. ?
[2023-08-20] MEDS: PIPERACILLIN/TAZOBACTAM 3.375 GM in 0.9 % SODIUM CHLORIDE Mini-bag 100 ML IVPB ×3 (08:12→18:54)
[2023-08-20 08:17] LABS: Lactate* 0.8 mmol/L (0.5-1.9)
[2023-08-20 08:19] LABS: Basophils Percent Auto 0.3 % (0.0-3.0); Eosinophils Percent Auto 0.4 % (0.0-7.0); Hematocrit 29.7 % (33.0-51.0); Hemoglobin* 9.5 gm/dL (12.0-16.0); Immature Granulocytes Pct Auto 0.2 %; Lymphocytes Percent Auto 7.7 % (20-44); Mean Corpuscular HGB Conc 32 gm/dL (32-36); Mean Corpuscular Hemoglobin 29 pg (26-34); Mean Corpuscular Volume 91 fL (80-100); Neutrophils Percent Auto 79.4 % (42.0-72.0); Platelet Count* 270 K/uL (140-440); RDW Coefficient of Variation % 17.4 % (11.5-15.5); Red Blood Count 3.28 m/uL (4.00-5.20); White Blood Count* 13.34 K/uL (4.50-11.00)
[2023-08-20 08:21] LABS: Slide Review Reflex No
[2023-08-20 08:34] LABS: Albumin* 3.2 g/dL (3.3-5.0)
[2023-08-20 08:37] LABS: Alanine Aminotransferase* 33 U/L (4-35); Alkaline Phosphatase* 121 U/L (40-150); Aspartate Amino Transferase* 26 U/L (12-35); Bilirubin Direct* 0.3 mg/dL (0.0-0.5); Bilirubin Total* 0.7 mg/dL (0.1-1.5); Lipase* 23 U/L (23-300); Total Protein* 6.7 g/dL (6.0-8.3)
[2023-08-20 08:50] LABS: Troponin I* < 0.01 ng/mL (0.01-0.04)
--- NOTE | 2023-08-20 08:55 | REH.OT ---
Orders received for PT/OT eval and treat. Per MD, patient not appropriate for therapy today. Will evaluate at a later date as appopriate.
[2023-08-20] MEDS: SERTRALINE 50 MG TABLET 25 MG G-TUBE (09:24)
[2023-08-20] MEDS: FUROSEMIDE 20 MG TABLET PO (09:24)
[2023-08-20] MEDS: OMEPRAZOLE 20 MG CAPSULE DR 40 MG PO (09:24)
[2023-08-20] MEDS: predniSONE 5 MG TABLET 15 MG G-TUBE (09:25)
[2023-08-20] MEDS: ACETAMINOPHEN 500 MG TABLET FEED TUBE ×2 (09:25→13:23)
[2023-08-20] MEDS: ONDANSETRON ODT 4 MG TAB PO (09:25)
[2023-08-20] MEDS: HYDROmorphone 2 MG TABLET PO (09:25)
[2023-08-20] MEDS: VANCOMYCIN 750 MG in 0.9 % SODIUM CHLORIDE 250 ml 250 ML 253.75 MG IVPB (09:26)
[2023-08-20] MEDS: ASPIRIN 81 MG TAB.CHEW PO (09:31)
[2023-08-20] MEDS: mycophenolate mofetiL 250 MG CAPSULE 750 MG PO (09:57)
[2023-08-20] MEDS: SODIUM CHLORIDE 0.9 % (FLUSH) 10 ML SYRINGE 5 ML IVF (09:57)
[2023-08-20] MEDS: TACROLIMUS 0.5 MG CAPSULE 2 MG PO (09:57)
--- NOTE | 2023-08-20 12:58 | PM.WSCN ---
Date of Consult Consult date: 08/20/23 Requesting Physician: Hospitalist Primary Care Provider: Tammy Moreira MD Consult Narrative Reason for consult: chronic wounds- admitted to medical floor. Narrative: Jacqueline Galvan is a 68 year old female admitted to medical floor after presenting to ER yesterday for chest pain, was found to have fever. Fever source unknown at time of admission. Past medical history for kidney transplant (2006-rejection, 2017) continued on immunosuppression and steroids (Tacrolimus and prednisone). Previous smoker, quit 2 months ago. Patient has 3xweekly wound care treatments (M/F with , Saturday at our wound care center) for a forehead laceration, R knee abrasion (both sustained in a fall at [facility] on 07/01/23), and sacral ulcer. She established with our wound center just last week on 08/14/23, there was concern of wound infection to right knee at that time culture was collected and patient was started on 7 days of Augmentin pending culture sensitivities. Review of 08/14/23 cultures shows large amount of Enterobacter Cloacae complex, large amount of MSSA, small amount of Enterococcus faecium. Wound center ABIs reduced. Right ASHLEY 0.7 Left ASHLEY 0.66 Chronic anemia d/t kidney disease. She does have a gastrostomy tube in place and is being seen by nutrition to help assist with weight gain and nutritional deficiencies, at wound center appointment patient shared that she had a crack in her gastrotomy tube that leaks. With multiple comorbidities, increasing her procedure risk complications, it was recommended that the tube be replaced back at [facility]. Tube has not been changed since initial procedure 05/16/2023. per who is at the bedside, patient did not receive a feed yesterday. Tube feeding was restarted today, prior to wound services evaluation. When I presented to the room patient reported she suddenly felt nauseous and did have a small amount of emesis. Tube feed was held by nursing at that time. Recent prolonged hospitalization at [facility] (May 08, 2023-->July 15/2024) for FTT (found to have a 45 lb weight loss secondary to chronic mesenteric ischemia); stay was complicated by sigmoid diverticulitis with intramural abscess, gastric perforation during PEG placement (for weight loss and FTT), pleural effusions contributing to acute on chronic hypoxic respiratory failure and intubation + ICU stay, UTI, diarrhea. An excerpt from [facility] d/c summary is below. They had been DNR/DNI at [facility], but family and patient request Full Code status for this hospitalization. Since getting home, she has been slowly increasing her po intake (still utilizing tube feeds 3x daily). She is living with her , has had help from children and Home Health. She has gained approximately 12 pounds since [facility] discharge. She is able to perform her own ADLs. Review of Systems Status of ROS: Reports: 10 or more systems reviewed and unremarkable except as noted in History and below [facility] Medical History (Updated 08/20/23 @ 14:46 by Sharmin Segovia CNP) Cachexia ?R64 - Cachexia (ICD-10) Anemia in chronic renal disease ?N18.9 - Chronic kidney disease, unspecified (ICD-10) ?D63.1 - Anemia in chronic kidney disease (ICD-10) Mesenteric ischemia ?K55.9 - Vascular disorder of intestine, unspecified (ICD-10) Nicotine dependence ?F17.200 - Nicotine dependence, unspecified, uncomplicated (ICD-10) Coronary artery disease ?I25.10 - Atherosclerotic heart disease of ramp[place] coronary artery without angina pectoris (ICD-10) Abdominal aortic aneurysm ?I71.40 - Abdominal aortic aneurysm, without rupture, unspecified (ICD-10) COVID-19 vaccination declined ?Z28.21 - Immunization not carried out because of patient refusal (ICD-10) History of hypertension ?Z86.79 - Personal history of other diseases of the circulatory system (ICD-10) History of atrial fibrillation ?Z86.79 - Personal history of other diseases of the circulatory system (ICD-10) Surgical History (Updated 08/19/23 @ 20:54 by Kalie Panda MD) History of kidney transplant ?Z94.0 - Kidney transplant status (ICD-10) History of heart artery stent (2005) ?Z95.5 - Presence of coronary angioplasty implant and graft (ICD-10) History of parathyroidectomy ?E89.2 - Postprocedural hypoparathyroidism (ICD-10) History of basal cell carcinoma excision ?Z98.890 - Other specified postprocedural states (ICD-10) ?Z85.828 - Personal history of other malignant neoplasm of skin (ICD-10) History of squamous cell carcinoma excision ?Z98.890 - Other specified postprocedural states (ICD-10) ?Z85.9 - Personal history of malignant neoplasm, unspecified (ICD-10) Family History Mother High blood pressure Colon cancer, Onset Age: 50 Diabetes Alcohol dependence Father Heart disease Social History (Updated 08/19/23 @ 23:51 by Kalie Panda MD) Narrative: Sangita lives with in [place], has 4 adult children. Quit smoking recently. On admission 08/19/23, she and family request Full Code status. What is your current living situation?: I presently have a place to live Problems where you live: no known problems Problems where you live details: n/a In the past 12 months, utilities in danger of being shut off: no In past 12 months, lack of transportation kept you from medical appts, meetings, work, or getting things needed for daily living: no In the past 12 mos, have been you worried that your food would run out before you had money to buy more?: never true In the past 12 mos, the food you bought just didn't last and you didn't have money to buy more?: never true Smoking Status: Former smoker What tobacco products do you use: cigarettes Smoking quit date/years: <= 15 years ago Do you use any of these nicotine containing products: None Second hand tobacco smoke exposure: No How often do you have a drink containing alcohol: never AUDIT-C Alcohol total score: 0 Non-prescribed substance use: denies use Caffeine: Yes (2 cups of coffee a day) How often does anyone, including family, friends and others, physically hurt you: never How often does anyone, including family, friends and others, insult or talk down to you: never How often does anyone, including family, friends and others, threaten you with harm: never How often does anyone, including family, friends and others, scream or curse at you: never Little interest or pleasure in doing things: not at all Feeling down, depressed, or hopeless: not at all service: No Meds Home Medications and Allergies Home Medications Medication Instructions Recorded Confirmed Type acetaminophen 500 mg capsule 1,000 mg feeding tube QID 07/22/23 08/20/23 History loperamide 2 mg capsule 2 mg feeding tube QID PRN 07/22/23 08/19/23 History quetiapine 25 mg tablet (Seroquel) 25 mg feeding tube HS PRN 07/22/23 08/19/23 History sertraline 25 mg tablet 25 mg feeding tube DAILY 07/22/23 08/19/23 History torsemide 100 mg tablet 100 mg PO DAILY PRN 07/22/23 08/19/23 History amlodipine 10 mg tablet 10 mg feeding tube DAILY 08/08/23 08/19/23 History aspirin 81 mg chewable tablet 1 tab feeding tube DAILY 08/19/23 08/19/23 History cholecalciferol (vitamin D3) 25 25 mcg feeding tube DAILY 08/19/23 08/19/23 History mcg (1,000 unit) tablet collagenase clostridium histo. 250 1 applic topical DAILY 08/19/23 08/19/23 History unit/gram topical ointment (Santyl) multivitamin (Daily Multi-Vitamin 1 tab feeding tube DAILY 08/19/23 08/19/23 History tablet) mycophenolate mofetil 250 mg 750 mg PO DAILY 08/19/23 08/19/23 History capsule mycophenolate mofetil 250 mg 500 mg PO HS 08/19/23 08/19/23 History capsule (CellCept) ondansetron 4 mg disintegrating 4 mg PO DAILY 08/19/23 08/19/23 History tablet pantoprazole 40 mg tablet,delayed 40 mg PO DAILY 08/19/23 08/19/23 History release prednisone 5 mg tablet 5 mg feeding tube DAILY 08/19/23 08/19/23 History tacrolimus 0.2 mg oral granules in 0.4 mg PO HS 08/19/23 08/19/23 History packet (Prograf) atorvastatin 80 mg tablet 80 mg feeding tube HS 08/20/23 08/20/23 History diphenoxylate-atropine 2.5 5 ml feeding tube Q6H PRN 08/20/23 08/20/23 History mg-0.025 mg/5 mL oral liquid suvorexant 10 mg tablet (Belsomra) 10 mg PO HS PRN 08/20/23 08/20/23 History tacrolimus 1 mg oral granules in 2 mg feeding tube Q12H 08/20/23 08/20/23 History packet (Prograf) Allergies Allergy/AdvReac Type Severity Reaction Status Date / Time No Known Drug Allergies Allergy Verified 07/22/23 15:36 Exam Narrative: Exam Narrative: General: Drowsy, NAD Pulmonary: unlabored, NC present. Right Pretibial Wound: measuring 2cmX2.5cmX0.8cm. 1cm undermining from 12-6 o'clock. 50% Tendon exposed. 40% slough, fibrin, and biofilm. 10% pale granulation to wound edges. Ebony-wound WNL. Forehead Wound: 1.5cmX1.2cmX0.2cm. 100% hypergranulated tissue with slough and biofilm. Drainage small serosang. PEriwound WNL Sacral wound: 0.5cmX0.3cmX0.1cm, 50%granulation, 50% slough & biofilm. PEriwound WNL. MSK: assisted with turning and repositioning Const: Vital Signs, click to edit/add: Vital Signs - 24 hr 08/19/23 13:06 08/19/23 13:07 08/19/23 13:10 Temperature Pulse Rate 74 73 Respiratory Rate Blood Pressure 90/57 L Blood Pressure [Le ft Arm] Blood Pressure [Ri ght Arm] Pulse Oximetry 96 96 97 Oxygen Delivery Me thod Oxygen Flow Rate 08/19/23 13:15 08/19/23 13:20 08/19/23 13:30 Temperature Pulse Rate 72 72 Respiratory Rate Blood Pressure Blood Pressure [Le ft Arm] Blood Pressure [Ri ght Arm] Pulse Oximetry 96 97 97 Oxygen Delivery Me thod Oxygen Flow Rate 08/19/23 13:31 08/19/23 13:40 08/19/23 13:57 Temperature Pulse Rate 72 72 Respiratory Rate Blood Pressure 112/69 Blood Pressure [Le ft Arm] Blood Pressure [Ri ght Arm] Pulse Oximetry 97 96 96 Oxygen Delivery Me thod Oxygen Flow Rate 08/19/23 14:00 08/19/23 14:00 08/19/23 14:00 Temperature 100.3 F H 100.3 F H Pulse Rate 71 Respiratory Rate Blood Pressure Blood Pressure [Le ft Arm] Blood Pressure [Ri ght Arm] Pulse Oximetry 97 Oxygen Delivery Me thod Oxygen Flow Rate 08/19/23 14:01 08/19/23 14:02 08/19/23 14:10 Temperature Pulse Rate 73 72 Respiratory Rate Blood Pressure 131/77 Blood Pressure [Le ft Arm] Blood Pressure [Ri ght Arm] Pulse Oximetry 97 97 97 Oxygen Delivery Me thod Oxygen Flow Rate 08/19/23 14:15 08/19/23 14:20 08/19/23 14:30 Temperature Pulse Rate 73 73 Respiratory Rate Blood Pressure Blood Pressure [Le ft Arm] Blood Pressure [Ri ght Arm] Pulse Oximetry 95 95 96 Oxygen Delivery Me thod Oxygen Flow Rate 08/19/23 14:31 08/19/23 14:40 08/19/23 14:45 Temperature Pulse Rate 74 74 Respiratory Rate Blood Pressure 132/75 Blood Pressure [Le ft Arm] Blood Pressure [Ri ght Arm] Pulse Oximetry 96 96 96 Oxygen Delivery Me thod Oxygen Flow Rate 08/19/23 14:54 08/19/23 15:00 08/19/23 15:02 Temperature Pulse Rate 73 74 Respiratory Rate Blood Pressure 103/73 Blood Pressure [Le ft Arm] Blood Pressure [Ri ght Arm] Pulse Oximetry 94 93 92 Oxygen Delivery Me thod Oxygen Flow Rate 08/19/23 15:10 08/19/23 15:15 08/19/23 15:20 Temperature Pulse Rate 73 Respiratory Rate Blood Pressure Blood Pressure [Le ft Arm] Blood Pressure [Ri ght Arm] Pulse Oximetry 93 93 92 Oxygen Delivery Me thod Oxygen Flow Rate 08/19/23 15:30 08/19/23 15:31 08/19/23 15:40 Temperature Pulse Rate 75 75 Respiratory Rate Blood Pressure 115/69 Blood Pressure [Le ft Arm] Blood Pressure [Ri ght Arm] Pulse Oximetry 93 92 93 Oxygen Delivery Me thod Oxygen Flow Rate 08/19/23 15:45 08/19/23 15:50 08/19/23 16:00 Temperature Pulse Rate 73 75 Respiratory Rate Blood Pressure Blood Pressure [Le ft Arm] Blood Pressure [Ri ght Arm] Pulse Oximetry 93 93 94 Oxygen Delivery Me thod Oxygen Flow Rate 08/19/23 16:02 08/19/23 16:03 08/19/23 16:10 Temperature Pulse Rate 74 73 Respiratory Rate Blood Pressure 96/68 Blood Pressure [Le ft Arm] Blood Pressure [Ri ght Arm] Pulse Oximetry 94 93 93 Oxygen Delivery Me thod Oxygen Flow Rate 08/19/23 16:12 08/19/23 16:15 08/19/23 16:20 Temperature 99.8 F H Pulse Rate 72 Respiratory Rate Blood Pressure Blood Pressure [Le ft Arm] Blood Pressure [Ri ght Arm] Pulse Oximetry 93 93 Oxygen Delivery Me thod Oxygen Flow Rate 08/19/23 16:30 08/19/23 16:31 08/19/23 16:40 Temperature Pulse Rate Respiratory Rate Blood Pressure Blood Pressure [Le ft Arm] Blood Pressure [Ri ght Arm] Pulse Oximetry 94 93 94 Oxygen Delivery Me thod Oxygen Flow Rate 08/19/23 18:37 08/19/23 18:37 08/19/23 20:45 Temperature 97.8 F Pulse Rate 74 Respiratory Rate Blood Pressure Blood Pressure [Le ft Arm] 102/68 Blood Pressure [Ri ght Arm] Pulse Oximetry 94 94 Oxygen Delivery Me thod Room Air Room Air Oxygen Flow Rate 08/19/23 21:51 08/19/23 22:13 08/19/23 22:58 Temperature 99.9 F H 98.0 F 98.2 F Pulse Rate 77 76 75 Respiratory Rate 28 H 26 H 26 H Blood Pressure 123/80 123/70 138/79 Blood Pressure [Le ft Arm] Blood Pressure [Ri ght Arm] Pulse Oximetry 92 91 91 Oxygen Delivery Me thod Oxygen Flow Rate 08/19/23 23:00 08/19/23 23:00 08/19/23 23:00 Temperature 98.2 F Pulse Rate Respiratory Rate 26 H 26 H 26 H Blood Pressure Blood Pressure [Le ft Arm] Blood Pressure [Ri ght Arm] 138/79 Pulse Oximetry 91 91 Oxygen Delivery Me thod Room Air Room Air Oxygen Flow Rate 08/19/23 23:00 08/19/23 23:58 08/20/23 01:13 Temperature 98.9 F 98.9 F Pulse Rate 70 72 76 Respiratory Rate 26 H 26 H Blood Pressure 135/78 136/72 Blood Pressure [Le ft Arm] Blood Pressure [Ri ght Arm] Pulse Oximetry 91 90 Oxygen Delivery Me thod Oxygen Flow Rate 08/20/23 03:00 08/20/23 07:06 08/20/23 07:30 Temperature 98.6 F Pulse Rate 68 Respiratory Rate 26 H 26 H Blood Pressure Blood Pressure [Le ft Arm] Blood Pressure [Ri ght Arm] 144/77 H Pulse Oximetry 90 78 L Oxygen Delivery Me thod Room Air Room Air Oxygen Flow Rate 08/20/23 07:30 08/20/23 07:30 08/20/23 12:00 Temperature 98.6 F 97.9 F Pulse Rate Respiratory Rate 26 H 26 H 20 Blood Pressure Blood Pressure [Le ft Arm] 102/68 94/56 L Blood Pressure [Ri ght Arm] 144/77 H Pulse Oximetry 90 90 Oxygen Delivery Me thod Room Air Nasal Cannula Oxygen Flow Rate 3 Documenting provider has reviewed patient's vital signs: yes Labs Labs: Short CBC 08/19/23 08/20/23 Range/Units 12:44 08:12 WBC 9.54 13.34 H (4.50-11.00) K/uL Hgb 7.8 L* 9.5 L (12.0-16.0) gm/dL Hct 24.4 L 29.7 L (33.0-51.0) % Plt Count 248 270 (140-440) K/uL BMP 08/19/23 12:44 Sodium 136 Potassium 4.0 Chloride 111 Carbon Dioxide 19 L BUN 27 Creatinine 1.0 Glucose 122 H Calcium 8.8 Cardiac Enzymes 08/19/23 08/19/23 08/20/23 Range/Units 12:44 18:15 08:12 Troponin I < 0.01 L < 0.01 L < 0.01 L (0.01-0.04) ng/mL Liver Function 08/19/23 08/20/23 Range/Units 12:44 08:12 Total Bilirubin 0.5 0.7 (0.1-1.5) mg/dL Direct Bilirubin 0.3 (0.0-0.5) mg/dL AST 18 26 (12-35) U/L ALT 17 33 (4-35) U/L Alkaline Phosphatase 80 121 (40-150) U/L Albumin 3.1 L 3.2 L (3.3-5.0) g/dL Urine 08/19/23 Range/Units 14:55 Urine Color Yellow (Yellow) Urine Appearance Clear (Clear) Urine pH 5.5 (5.0-8.5) Ur Specific Wilmer 1.015 (1.000-1.030) Urine Protein 1+ A (Negative) Urine Glucose (UA) Negative (Negative) Assessment and Plan Assessment and plan (1) Cachexia: Problem comment: - severe protein calorie malnutrition as evidenced by hypoalbuminemia, failure to thrive, BMI of 16 Status: Acute (2) Coronary artery disease: Problem comment: - M.I. 2005 s/p stenting Status: Chronic (3) Immunosuppressed status: Problem comment: - s/p renal transplant Status: Acute (4) Stage III pressure ulcer of sacral region: Status: Acute (5) Non-pressure chronic ulcer of other part of right lower leg with muscle involvement without evidence of necrosis: Status: Acute (6) Laceration of forehead: Status: Acute Plan Wounds mechanically debrided and dressed. next dressing change to occur 08/22/23. Change every other day. Forehead: cleanse with unit approved cleanser, apply medihoney, cover with border foam dressing. Right pre-tibal:cleanse with unit approved celanser, apply santyl to woundbed if available (okay to sub medihoney), cut hydrofera blue ready transfer to size of wound, cover with foam border dressing. Sacral wound: cleanse with unit approved cleanser, apply medihoney Continue pressure ulcer prevention and management protocol per unit policy Hospital team to continue to monitor and manage antibiotic needs. Patient to transfer to [facility] for ongoing medical evaluation and management. Total Time Spent Total Time Spent: 60
--- NOTE | 2023-08-20 13:38 | PM.DST ---
Transfer Discharge Sum: Prov Provider Time Seen by Provider: 07:58 Date Seen: 08/20/23 Date of admission: 08/19/23 20:10 Primary care physician: Tammy Moreira MD Consults: 08/19/23 20:10 Consult to Nutrition [CONS] Routine Comment: Reason for consult:: Nutritional Consult Consult to Physical Therapy [CONS] Routine Comment: Reason(s) for PT Consult:: Evaluate and Treat Any Restrictions?:: No Restrictions Consult to [facility] [CONS] Routine Comment: Reason for Consult:: Discharge Planning Needs 08/19/23 20:12 Consult to Occupational Therapy [CONS] Routine Comment: Reason(s) for OT Consult:: Evaluate and Treat Any Restrictions?:: No Restrictions 08/20/23 00:26 Consult to Wound Care [CONS] Routine Comment: Consulting Provider: Sharmin Segovia Attending physician on discharge: Scarlett Llanes Anticipated date of transfer: 08/20/23 Receiving physician/facility: [facility], Dr. Shana Her DS: Diagnosis Discharge Diagnosis (1) Acute cholecystitis: Status: Acute Problem details: Probable cause of fevers and CP. Patient is on Zosyn and vanco. Not a surgical candidate. I are not available here, transferring to [place] for percutaneous cholecystostomy tube placement. (2) Anemia in chronic renal disease: Status: Acute Problem details: - given hemoglobin of <8, given 1 unit packed red blood cells, hemoglobin 9.5 on 08/20/2023 (3) Cachexia: Status: Chronic Problem details: - severe protein calorie malnutrition as evidenced by hypoalbuminemia, cachexia, severe muscle wasting, failure to thrive, BMI of 16 (4) G tube feedings: Status: Acute Problem details: - currently utilizing thrice daily - nutrition referral placed (5) Pericardial effusion: Status: Acute Problem details: - possible source of chest pain, troponin negative x2 and EKG reassuring - will increase daily prednisone dose, obtain TTE to further evaluate, monitor on telemetry (6) History of kidney transplant: Status: Chronic Problem details: [place] 2006. Failed due to non-adherence in part. Living donor transplant at [place] 06/21/16. (7) Immunosuppressed status: Status: Chronic Problem details: - s/p renal transplant (8) Coronary artery disease: Status: Chronic Problem details: - M.I. 2006 s/p stenting (9) Chronic wound: Status: Acute Problem details: Multiple chronic wounds for which she has followed with wound care. These are the recommendations from 08/20/2023: Wounds mechanically debrided and dressed. next dressing change to occur 08/22/23. Change every other day. Forehead: cleanse with unit approved cleanser, apply medihoney, cover with border foam dressing. Right pre-tibal:cleanse with unit approved celanser, apply santyl to woundbed if available (okay to sub medihoney), cut hydrofera blue ready transfer to size of wound, cover with foam border dressing. Sacral wound: cleanse with unit approved cleanser, apply medihoney Continue pressure ulcer prevention and management protocol per unit policy Transfer Discharge Sum: Med Medications Active and Home Medications: Home Medications acetaminophen 500 mg capsule 1,000 mg feeding tube QID 07/22/23 [History Confirmed 08/20/23] loperamide 2 mg capsule 2 mg feeding tube QID PRN 07/22/23 [History Confirmed 08/19/23] quetiapine 25 mg tablet (Seroquel) 25 mg feeding tube HS PRN 07/22/23 [History Confirmed 08/19/23] sertraline 25 mg tablet 25 mg feeding tube DAILY 07/22/23 [History Confirmed 08/19/23] torsemide 100 mg tablet 100 mg PO DAILY PRN 07/22/23 [History Confirmed 08/19/23] amlodipine 10 mg tablet 10 mg feeding tube DAILY 08/08/23 [History Confirmed 08/19/23] amoxicillin 500 mg-potassium clavulanate 125 mg tablet (Augmentin) 1 tab feeding tube BID 7 days #14 tabs 08/14/23 [Rx Confirmed 08/19/23] aspirin 81 mg chewable tablet 1 tab feeding tube DAILY 08/19/23 [History Confirmed 08/19/23] cholecalciferol (vitamin D3) 25 mcg (1,000 unit) tablet 25 mcg feeding tube DAILY 08/19/23 [History Confirmed 08/19/23] collagenase clostridium histo. 250 unit/gram topical ointment (Santyl) 1 applic topical DAILY 08/19/23 [History Confirmed 08/19/23] multivitamin (Daily Multi-Vitamin tablet) 1 tab feeding tube DAILY 08/19/23 [History Confirmed 08/19/23] mycophenolate mofetil 250 mg capsule 750 mg PO DAILY 08/19/23 [History Confirmed 08/19/23] mycophenolate mofetil 250 mg capsule (CellCept) 500 mg PO HS 08/19/23 [History Confirmed 08/19/23] ondansetron 4 mg disintegrating tablet 4 mg PO DAILY 08/19/23 [History Confirmed 08/19/23] pantoprazole 40 mg tablet,delayed release 40 mg PO DAILY 08/19/23 [History Confirmed 08/19/23] prednisone 5 mg tablet 5 mg feeding tube DAILY 08/19/23 [History Confirmed 08/19/23] tacrolimus 0.2 mg oral granules in packet (Prograf) 0.4 mg PO HS 08/19/23 [History Confirmed 08/19/23] atorvastatin 80 mg tablet 80 mg feeding tube HS 08/20/23 [History Confirmed 08/20/23] diphenoxylate-atropine 2.5 mg-0.025 mg/5 mL oral liquid 5 ml feeding tube Q6H PRN 08/20/23 [History Confirmed 08/20/23] suvorexant 10 mg tablet (Belsomra) 10 mg PO HS PRN 08/20/23 [History Confirmed 08/20/23] tacrolimus 1 mg oral granules in packet (Prograf) 2 mg feeding tube Q12H 08/20/23 [History Confirmed 08/20/23] Active Medications Acetaminophen (Acetaminophen 500 Mg Tablet) 500 mg FEED TUBE QID [facility] Last Admin: 08/20/23 13:23 Dose: 500 mg Amoxicillin/Clavulanate Potassium (Amoxicillin/Clavulanate 500 Mg/125 Mg Tablet) 500 mg PO BID [facility] Last Admin: 08/19/23 23:29 Dose: Not Given Lipase/Protease/Amylase (Pancrealipase (12,38,60) Cap) 1 cap PO BID [facility] Aspirin (Aspirin 81 Mg Tab.Chew) 81 mg PO DAILY [facility] Last Admin: 08/20/23 09:31 Dose: 81 mg Furosemide (Furosemide 20 Mg Tablet) 20 mg PO DAILY@0800 [facility] Last Admin: 08/20/23 09:24 Dose: 20 mg Hydromorphone HCl (Hydromorphone 2 Mg Tablet) 2 mg PO QID PRN Last Admin: 08/20/23 09:25 Dose: 2 mg Piperacillin Sod/Tazobactam (Sod 3.375 gm/ Sodium Chloride) 100 mls @ 200 mls/hr IVPB Q6H [facility] Last Admin: 08/20/23 13:24 Dose: 200 mls/hr Vancomycin HCl 550 mg/ Sodium (Chloride) 255.5 mls @ 253.75 mls/hr IVPB Q24H [facility]; Protocol Lactated Ringer's (Lactated Ringers 500 Ml) 500 mls @ 500 mls/hr IV .Q1H ONE Stop: 08/20/23 14:29 Loperamide HCl (Loperamide Hcl 2 Mg Capsule) 2 mg PO QID PRN Morphine Sulfate (Morphine 4 Mg/Ml Inj) 2 - 4 mg IVP Q1H PRN Last Admin: 08/20/23 06:34 Dose: 4 mg Mycophenolate Mofetil (Mycophenolate Mofetil 250 Mg Capsule) 500 mg PO HS [facility] Last Admin: 08/19/23 23:29 Dose: Not Given Mycophenolate Mofetil (Mycophenolate Mofetil 250 Mg Capsule) 750 mg PO DAILY [facility] Last Admin: 08/20/23 09:57 Dose: 750 mg Collagenase Clostridium Histo. [ Santyl] 250 Unit/Gram Ointment 0 applic TOPICAL DAILY [facility] Last Admin: 08/20/23 12:03 Dose: Not Given Tacrolimus [Prograf] 0.2 Mg Granules In Packet 0 mg PO HS [facility] Last Admin: 08/20/23 12:02 Dose: Not Given Omeprazole (Omeprazole [address]) 40 mg PO DAILY [facility] Last Admin: 08/20/23 09:24 Dose: 40 mg Ondansetron HCl (Ondansetron Odt 4 Mg Tab) 4 mg PO DAILY [facility] Last Admin: 08/20/23 09:25 Dose: 4 mg Prednisone (Prednisone 5 Mg Tablet) 15 mg G-TUBE DAILY [facility] Last Admin: 08/20/23 09:25 Dose: 15 mg Sertraline HCl (Sertraline 50 Mg Tablet) 25 mg G-TUBE DAILY [facility] Last Admin: 08/20/23 09:24 Dose: 25 mg Sodium Chloride (0.9 % Sodium Chloride 250 Ml) 250 ml IV ONCE PRN PRN Reason: Blood Pressure - Low Stop: 08/20/23 23:59 Sodium Chloride (Sodium Chloride 0.9 % (Flush) 10 Ml Syringe) 5 ml IVF .FLUSH PRN Sodium Chloride (Sodium Chloride 0.9 % (Flush) 10 Ml Syringe) 5 ml IVF BID [facility] Last Admin: 08/20/23 09:57 Dose: 5 ml Tacrolimus (Tacrolimus 0.5 Mg Capsule) 2 mg G-TUBE HS JORGE Tacrolimus (Tacrolimus 0.5 Mg Capsule) 2 mg PO QAM [facility] Last Admin: 08/20/23 09:57 Dose: 2 mg Torsemide (Torsemide 100 Mg Tablet) 100 mg PO DAILY PRN Transfer Discharge Sum: Hosp Hospital Course Hospital course: Per H&P: Jacqueline Galvan is a 68 year old female who presented to the ER today by ambulance for chest pain. Pain is intermittent, midsternal, worse with taking a deep breath, also seems to be improved in certain positions. Took ASA prior to ED arrival, then had nausea + vomiting. Has had nonbloody diarrhea for weeks, unchanged. ER Course and Findings - Temperature of 101.8 (patient was surprised by this, didn't feel febrile) - reassuring EKG, troponin, and CXR - Hgb of 7.8, negative FOBT (history of anemia while at [place], typically 8-9 range) - normal LFTs, normal lactate Upon arrival to the floor, patient continued to have discomfort. CT PE and CT abdomen pelvis obtained, exhibiting 2 mm pericardial effusion, bilateral pleural effusions, cholelithiasis., 4.9cm infrarenal abdominal aortic aneurysm (known, last measured at 4.5cm). Sangita recently had a lengthy stay at [facility] (May 08, 2023-->July 15/2024) for FTT (found to have a 45 lb weight loss secondary to chronic mesenteric ischemia); stay was complicated by sigmoid diverticulitis with intramural abscess, gastric perforation during PEG placement (for weight loss and FTT), pleural effusions contributing to acute on chronic hypoxic respiratory failure and intubation + ICU stay, UTI, diarrhea. An excerpt from [place] d/c summary is below. They had been DNR/DNI at [place] but family and patient request Full Code status at this time. Since getting home, she has been slowly increasing her po intake (still utilizing tube feeds thrice daily), no significant GERD that she's noted. On PPI. She is living with her , has had help from children and Home Health. She has gained approximately 12 pounds since [place] discharge. She is able to perform her own ADLs. Sangita has thrice weekly wound care treatments (M/F with HH, Saturday at our wound care center) for a forehead laceration, R knee abrasion (both sustained in a fall at [place] on 07/01/23), and sacral ulcer. 08/20/2023 patient continues to have pain, now in the right upper quadrant. Right upper quadrant ultrasound shows positive Isaac sign, cholelithiasis, acute cholecystitis. Patient was started on Zosyn and vancomycin this morning for acute cholecystitis. Also requiring more oxygen today, now 3 L per minute nasal cannula. Blood pressure labile, variably soft, was given LR 500 mL bolus for this. I spoke with our general surgeon about these findings, however patient is a very poor surgical candidate and has had recent gastric surgery for PEG placement at [place] with complications. Are surgeon recommended percutaneous cholecystostomy tube placement, which is not available at this facility. I spoke with Dr. Durant at [facility] who agreed and noted that Dr. Shana Her would be the accepting physician at [facility] today. She is transferred there via ambulance. Time Spent with Patient Time attestation: Total time spent providing and/or coordinating transfer services: 80 minutes (conversations with [facility], patient, patient's , staff, wound care, general surgery). Exam Narrative: Exam Narrative: General: Moaning, extremely cachectic, chronically ill. Awake, alert, oriented to self and place. No pallor. No jaundice. Oropharynx: Clear. Mucous membranes moist. Cardiovascular: Regular rate and rhythm. No murmurs, gallops, or rubs. Respiratory: Diminished breath sounds at both bases, no crackles or wheezes. Abdomen: G-tube is in place. Bowel sounds present. Very thin, soft, nondistended, tender in the right upper quadrant. No rebound tenderness or guarding. Extremities: Generalized loss of muscle mass. No pedal edema. Skin: Forehead wound and sacral wounds are noted. She has a pretibial wound that is covered. Wound care examined this today. Const: Vital Signs, click to edit/add: Vital Signs - 24 hr 08/19/23 13:40 08/19/23 13:57 08/19/23 14:00 Temperature 100.3 F H Pulse Rate 72 Respiratory Rate Blood Pressure Blood Pressure [Le ft Arm] Blood Pressure [Ri ght Arm] Pulse Oximetry 96 96 Oxygen Delivery Me thod Oxygen Flow Rate 08/19/23 14:00 08/19/23 14:00 08/19/23 14:01 Temperature 100.3 F H Pulse Rate 71 73 Respiratory Rate Blood Pressure 131/77 Blood Pressure [Le ft Arm] Blood Pressure [Ri ght Arm] Pulse Oximetry 97 97 Oxygen Delivery Me thod Oxygen Flow Rate 08/19/23 14:02 08/19/23 14:10 08/19/23 14:15 Temperature Pulse Rate 72 73 Respiratory Rate Blood Pressure Blood Pressure [Le ft Arm] Blood Pressure [Ri ght Arm] Pulse Oximetry 97 97 95 Oxygen Delivery Me thod Oxygen Flow Rate 08/19/23 14:20 08/19/23 14:30 08/19/23 14:31 Temperature Pulse Rate 73 74 Respiratory Rate Blood Pressure 132/75 Blood Pressure [Le ft Arm] Blood Pressure [Ri ght Arm] Pulse Oximetry 95 96 96 Oxygen Delivery Me thod Oxygen Flow Rate 08/19/23 14:40 08/19/23 14:45 08/19/23 14:54 Temperature Pulse Rate 74 Respiratory Rate Blood Pressure Blood Pressure [Le ft Arm] Blood Pressure [Ri ght Arm] Pulse Oximetry 96 96 94 Oxygen Delivery Me thod Oxygen Flow Rate 08/19/23 15:00 08/19/23 15:02 08/19/23 15:10 Temperature Pulse Rate 73 74 Respiratory Rate Blood Pressure 103/73 Blood Pressure [Le ft Arm] Blood Pressure [Ri ght Arm] Pulse Oximetry 93 92 93 Oxygen Delivery Me thod Oxygen Flow Rate 08/19/23 15:15 08/19/23 15:20 08/19/23 15:30 Temperature Pulse Rate 73 75 Respiratory Rate Blood Pressure Blood Pressure [Le ft Arm] Blood Pressure [Ri ght Arm] Pulse Oximetry 93 92 93 Oxygen Delivery Me thod Oxygen Flow Rate 08/19/23 15:31 08/19/23 15:40 08/19/23 15:45 Temperature Pulse Rate 75 73 Respiratory Rate Blood Pressure 115/69 Blood Pressure [Le ft Arm] Blood Pressure [Ri ght Arm] Pulse Oximetry 92 93 93 Oxygen Delivery Me thod Oxygen Flow Rate 08/19/23 15:50 08/19/23 16:00 08/19/23 16:02 Temperature Pulse Rate 75 74 Respiratory Rate Blood Pressure 96/68 Blood Pressure [Le ft Arm] Blood Pressure [Ri ght Arm] Pulse Oximetry 93 94 94 Oxygen Delivery Me thod Oxygen Flow Rate 08/19/23 16:03 08/19/23 16:10 08/19/23 16:12 Temperature 99.8 F H Pulse Rate 73 Respiratory Rate Blood Pressure Blood Pressure [Le ft Arm] Blood Pressure [Ri ght Arm] Pulse Oximetry 93 93 Oxygen Delivery Me thod Oxygen Flow Rate 08/19/23 16:15 08/19/23 16:20 08/19/23 16:30 Temperature Pulse Rate 72 Respiratory Rate Blood Pressure Blood Pressure [Le ft Arm] Blood Pressure [Ri ght Arm] Pulse Oximetry 93 93 94 Oxygen Delivery Me thod Oxygen Flow Rate 08/19/23 16:31 08/19/23 16:40 08/19/23 18:37 Temperature 97.8 F Pulse Rate Respiratory Rate 24 Blood Pressure Blood Pressure [Le ft Arm] 102/68 Blood Pressure [Ri ght Arm] Pulse Oximetry 93 94 94 Oxygen Delivery Me thod Room Air Oxygen Flow Rate 08/19/23 18:37 08/19/23 20:45 08/19/23 21:51 Temperature 99.9 F H Pulse Rate 74 77 Respiratory Rate 24 28 H Blood Pressure 123/80 Blood Pressure [Le ft Arm] Blood Pressure [Ri ght Arm] Pulse Oximetry 94 92 Oxygen Delivery Me thod Room Air Oxygen Flow Rate 08/19/23 22:13 08/19/23 22:58 08/19/23 23:00 Temperature 98.0 F 98.2 F 98.2 F Pulse Rate 76 75 Respiratory Rate 26 H 26 H 26 H Blood Pressure 123/70 138/79 Blood Pressure [Le ft Arm] Blood Pressure [Ri ght Arm] 138/79 Pulse Oximetry 91 91 91 Oxygen Delivery Me thod Room Air Oxygen Flow Rate 08/19/23 23:00 08/19/23 23:00 08/19/23 23:00 Temperature Pulse Rate 70 Respiratory Rate 26 H 26 H Blood Pressure Blood Pressure [Le ft Arm] Blood Pressure [Ri ght Arm] Pulse Oximetry 91 Oxygen Delivery Me thod Room Air Oxygen Flow Rate 08/19/23 23:58 08/20/23 01:13 08/20/23 03:00 Temperature 98.9 F 98.9 F 98.6 F Pulse Rate 72 76 Respiratory Rate 26 H 26 H 26 H Blood Pressure 135/78 136/72 Blood Pressure [Le ft Arm] Blood Pressure [Ri ght Arm] 144/77 H Pulse Oximetry 91 90 90 Oxygen Delivery Me thod Room Air Oxygen Flow Rate 08/20/23 07:06 08/20/23 07:30 08/20/23 07:30 Temperature 98.6 F Pulse Rate 68 Respiratory Rate 26 H 26 H Blood Pressure Blood Pressure [Le ft Arm] 102/68 Blood Pressure [Ri ght Arm] 144/77 H Pulse Oximetry 78 L 90 Oxygen Delivery Me thod Room Air Room Air Oxygen Flow Rate 08/20/23 07:30 08/20/23 12:00 Temperature 97.9 F Pulse Rate Respiratory Rate 26 H 20 Blood Pressure Blood Pressure [Le ft Arm] 94/56 L Blood Pressure [Ri ght Arm] Pulse Oximetry 90 Oxygen Delivery Me thod Nasal Cannula Oxygen Flow Rate 3 Documenting provider has reviewed patient's vital signs: yes Transfer Discharge Sum: Data Data Completed and Pending Completed studies during hospitalization: 08/19/2023 EKG: Normal sinus rhythm, 72 beats per minute, possible left atrial enlargement, left ventricular hypertrophy with repolarization abnormality, cannot rule out septal infarct, age undetermined. Study: XRay-Chest 2 view-08/19/2023 1:52:36 PM Ordering Physician: Jackson Hawkins Final Report: Indication: Chest pain. Technique: One view(s) of the chest. Comparison: 05/23/2022. Findings: Normal size of the cardiomediastinal silhouette. Atherosclerotic aortic calcifications. Pulmonary vasculature is normal. Lungs are hyperinflated with flattened diaphragm. No focal consolidation. No pleural effusion or pneumothorax. Atherosclerotic subclavian and axillary artery calcifications. Osseous demineralization. No acute osseous abnormality identified. Impression: Hyperinflated lungs, which can be seen in the setting of COPD/emphysema. No focal consolidation. Dictated by Maureen Walden MD @ 08/19/2023 1:59:42 PM Signed by: Maureen Walden MD @08/19/2023 1:59:42 PM (Electronic Signature) Dictated By: Maureen Walden M.D. Signed By: 08/19/23 1507 DD/ 1359 TD/TT: 08/19/23 1506 Study: CT-Abdomen/Pelvis W/ 95CC ISOVUE 370-08/19/2023 7:33:30 PM Ordering Physician: DIANNA Final Report: INDICATION: Fever. COMPARISON: CT abdomen and pelvis without intravenous contrast April 16, 2011 and July 28, 2012; CT chest, abdomen and pelvis without intravenous or oral contrast May 23, 2022. TECHNIQUE: CT abdomen and pelvis with intravenous contrast; coronal and sagittal reformats. FINDINGS: Bilateral pleural effusion and pericardial effusion. No focal hepatic or splenic pathology. No pancreatic pathology. Distended gallbladder with cholelithiasis. No pericholecystic inflammatory changes. No adrenal pathology. Atrophic nonfunctioning little [place] kidneys bilateral. Infrarenal abdominal aortic aneurysm measuring 4.9 cm in diameter, was measuring 4.5 cm in 2022. No retroperitoneal lymphadenopathy. CT of the pelvis reveals diverticulosis sigmoid colon without any CT evidence of diverticulitis with abscess. Transplant kidney left iliac fossa and non functioning transplant kidney right iliac fossa. IMPRESSION: 1. Bilateral pleural effusion and pericardial effusion. 2. Gastrostomy tube in place. 3. Cholelithiasis 4. Transplant kidney left iliac fossa. 5. Diverticulosis sigmoid colon without any CT evidence of diverticulitis or abscess. 6. Infrarenal abdominal aortic aneurysm measuring 4.9 cm in diameter; it was measuring 4.5 cm in 2022. Please note that all CT scans at this facility use dose modulation, iterative reconstruction, and/or weight-based dosing when appropriate to reduce radiation dose to as low as reasonably achievable. Dictated by Marcial Enrique MD @ 08/19/2023 8:41:46 PM Signed by: Marcial Enrique MD @08/19/2023 8:41:46 PM (Electronic Signature) Dictated By: Marcial Enrique M.D. Signed By: 08/20/23824 DD/ 40 TD/TT: 08/20/23823 Study: CT-Chest PE W/95CC [id number]/15/2024 8:15:07 PM Ordering Physician: DIANNA Final Report: INDICATION: Fever; chest pain. COMPARISON: CT abdomen and pelvis August 19, 2023; CT chest, abdomen and pelvis without intravenous contrast May 23, 2022; CT abdomen and pelvis April 16, 2011 and July 28, 2012. TECHNIQUE: CT chest with intravenous contrast; coronal and sagittal reformats. FINDINGS: Bilateral pleural effusion. No CT evidence of acute or chronic pulmonary thromboembolism. Pericardial effusion with thickness measuring 2 cm; relatively new compared to the previous study from May 2022. Coronary artery calcifications. Elevated right Martinez-pressure with reflux of contrast into the inferior vena cava and hepatic veins. No discrete abnormal intra pulmonary nodular densities are identified. Atelectatic changes both lung bases. IMPRESSION: 1. Pericardial effusion and bilateral pleural effusion. 2. Compression atelectasis lower lobes both lungs. 3. No acute pulmonary infiltrates on either side. Please note that all CT scans at this facility use dose modulation, iterative reconstruction, and/or weight-based dosing when appropriate to reduce radiation dose to as low as reasonably achievable. Dictated by Marcial Enrique MD @ 08/19/2023 8:37:45 PM Signed by: Marcial Enrique MD @08/19/2023 8:37:45 PM (Electronic Signature) Dictated By: Marcial Enrique M.D. Signed By: 08/20/23823 DD/ 36 TD/TT: 08/20/23823 Study: US-Abdomen GB ONLY-08/20/2023 7:18:31 AM Ordering Physician: JORGE BUSTAMANTE Final Report: INDICATION: Cholelithiasis. COMPARISON: None available. TECHNIQUE: Limited sonographic examination of the gallbladder and CBD. FINDINGS: Gallbladder: Cholelithiasis. Top-normal uniform wall thickness measuring slightly less than 3 mm. Positive sonographic Isaac`s sign. CBD: 7mm Peritoneal Cavity: No significant ascites. Additional Findings: None. IMPRESSION: Cholelithiasis and a positive sonographic Isaac`s sign are consistent with acute cholecystitis in the correct clinical setting. No significant biliary ductal dilatation or pericholecystic fluid. Clinical correlation is recommended. Consider surgical consultation as clinically appropriate. Dictated by Sanket Marie MD @ 08/20/2023 7:28:40 AM Signed by: Sanket Marie MD @08/20/2023 7:28:40 AM (Electronic Signature) Dictated By: Sanket Marie M.D. Signed By: 08/20/23824 DD/ 7 TD/TT: 08/20/23824 Discharge Plan Discharge Disposition: [facility] Discharge Location: [facility] Date of Admission: 08/19/23 20:10 Attending Provider on Discharge: Scarlett Llanes Primary Care Provider: Tammy Moreira Condition: Improved Discharge Orders: Transfer of Care to Other Hospital (ORDER); Ordered 08/20/23 Ordered By: Scarlett Llanes Oxygen: Yes Oxygen Delivery Method: Nasal Cannula Oxygen Flow Rate: 3 liters/minute Urinary Catheter: No Services not available here: GI, IR, cardiology, percutaneous cholecystostomy tube placement
[2023-08-20] MEDS: LACTATED RINGERS 500 ML 500 ML IV (14:09)
--- NOTE | 2023-08-20 17:07 | PC.NURSE ---
Called [facility] for update on transfer. Has been accepted, but no bed at this time. May happen tonight, may be tomorrow.
--- NOTE | 2023-08-20 17:58 | P.GSCN_ITS ---
History of Present Illness Consult details Date Seen: 08/20/23 Consult date: 08/20/23 Narrative: The patient is a 68-year-old female with a history of chronic mesenteric ischemia leading to 40 lb weight loss and failure to thrive. She was admitted to [facility] and found to have diverticulitis with an abscess. A feeding tube was placed during that hospitalization. She developed sepsis after the PEG placement, I believe from gastric perforation or leakage and underwent laparotomy. She also developed pleural effusions leading to acute on chronic hypoxic respiratory failure requiring intubation and ICU stay. She was finally discharged home last month. Since discharge home she has been working on increasing her p.o. intake. She has been taking it about 500 calories a day but still on feeding tube 3 times a day. She lives with her and does also have home health. She has gained some weight since discharge last month. She also has a history of renal transplant x2, most recently 2016. She is on triple immunosuppression with CellCept, prednisone and tacrolimus. The past 2-3 days she has been not feeling well. She initially presented via ambulance for chest pain. Pain has been worse with taking a deep breath. Is better with specific positions. She has had nausea and vomiting. Denies any specific abdominal pain. Her states that she has had fevers, however she has not had any fevers recently. She was admitted to the hospital and found to have a hemoglobin of 7.8. She was given 1 unit of blood. She was found to have a pericardial effusion. This was thought to be the possible source of her chest pain. Follows in wound care for multiple chronic wounds. This morning she was found to have elevated white blood cell count. Imaging revealed acute calculous cholecystitis. [facility] Medical History (Updated 08/20/23 @ 17:14 by Tammy Moreira MD) History of hypertension ?Z86.79 - Personal history of other diseases of the circulatory system (ICD- 10) History of atrial fibrillation ?Z86.79 - Personal history of other diseases of the circulatory system (ICD- 10) Surgical History (Updated 08/20/23 @ 17:14 by Tammy Moreira MD) History of heart artery stent (2005) ?Z95.5 - Presence of coronary angioplasty implant and graft (ICD-10) History of parathyroidectomy ?E89.2 - Postprocedural hypoparathyroidism (ICD-10) History of basal cell carcinoma excision ?Z98.890 - Other specified postprocedural states (ICD-10) ?Z85.828 - Personal history of other malignant neoplasm of skin (ICD-10) History of squamous cell carcinoma excision ?Z98.890 - Other specified postprocedural states (ICD-10) ?Z85.9 - Personal history of malignant neoplasm, unspecified (ICD-10) History of kidney transplant ?Z94.0 - Kidney transplant status (ICD-10) Family History Mother High blood pressure Colon cancer, Onset Age: 50 Diabetes Alcohol dependence Father Heart disease Social History (Updated 08/19/23 @ 23:51 by Jorge Bustamante MD) Narrative: Sangita lives with in [place], has 4 adult children. Quit smoking recently. On admission 08/19/23, she and family request Full Code status. What is your current living situation?: I presently have a place to live Problems where you live: no known problems Problems where you live details: n/a In the past 12 months, utilities in danger of being shut off: no In past 12 months, lack of transportation kept you from medical appts, meetings, work, or getting things needed for daily living: no In the past 12 mos, have been you worried that your food would run out before you had money to buy more?: never true In the past 12 mos, the food you bought just didn't last and you didn't have money to buy more?: never true Smoking Status: Former smoker What tobacco products do you use: cigarettes Smoking quit date/years: <= 15 years ago Do you use any of these nicotine containing products: None Second hand tobacco smoke exposure: No How often do you have a drink containing alcohol: never AUDIT-C Alcohol total score: 0 Non-prescribed substance use: denies use Caffeine: Yes (2 cups of coffee a day) How often does anyone, including family, friends and others, physically hurt you : never How often does anyone, including family, friends and others, insult or talk down to you: never How often does anyone, including family, friends and others, threaten you with harm: never How often does anyone, including family, friends and others, scream or curse at you: never Little interest or pleasure in doing things: not at all Feeling down, depressed, or hopeless: not at all service: No Meds Home Medications and Allergies Home Medications Medication Instructions Recorded Confirmed Type acetaminophen 500 mg capsule 1,000 mg feeding tube QID 07/22/23 08/20/23 History loperamide 2 mg capsule 2 mg feeding tube QID PRN 07/22/23 08/19/23 History quetiapine 25 mg tablet (Seroquel) 25 mg feeding tube HS PRN 07/22/23 08/19/23 History sertraline 25 mg tablet 25 mg feeding tube DAILY 07/22/23 08/19/23 History torsemide 100 mg tablet 100 mg PO DAILY PRN 07/22/23 08/19/23 History amlodipine 10 mg tablet 10 mg feeding tube DAILY 08/08/23 08/19/23 History aspirin 81 mg chewable tablet 1 tab feeding tube DAILY 08/19/23 08/19/23 History cholecalciferol (vitamin D3) 25 25 mcg feeding tube DAILY 08/19/23 08/19/23 History mcg (1,000 unit) tablet collagenase clostridium histo. 250 1 applic topical DAILY 08/19/23 08/19/23 History unit/gram topical ointment (Santyl) multivitamin (Daily Multi-Vitamin 1 tab feeding tube DAILY 08/19/23 08/19/23 History tablet) mycophenolate mofetil 250 mg 750 mg PO DAILY 08/19/23 08/19/23 History capsule mycophenolate mofetil 250 mg 500 mg PO HS 08/19/23 08/19/23 History capsule (CellCept) ondansetron 4 mg disintegrating 4 mg PO DAILY 08/19/23 08/19/23 History tablet pantoprazole 40 mg tablet,delayed 40 mg PO DAILY 08/19/23 08/19/23 History release prednisone 5 mg tablet 5 mg feeding tube DAILY 08/19/23 08/19/23 History tacrolimus 0.2 mg oral granules in 0.4 mg PO HS 08/19/23 08/19/23 History packet (Prograf) atorvastatin 80 mg tablet 80 mg feeding tube HS 08/20/23 08/20/23 History diphenoxylate-atropine 2.5 5 ml feeding tube Q6H PRN 08/20/23 08/20/23 History mg-0.025 mg/5 mL oral liquid suvorexant 10 mg tablet (Belsomra) 10 mg PO HS PRN 08/20/23 08/20/23 History tacrolimus 1 mg oral granules in 2 mg feeding tube Q12H 08/20/23 08/20/23 History packet (Prograf) Allergies Allergy/AdvReac Type Severity Reaction Status Date / Time No Known Drug Allergies Allergy Verified 07/22/23 15:36 Exam Narrative: Exam Narrative: General appearance: Patient is sleepy. Cachectic She does rouse and answer questions appropriately. Pulmonary: Breathing nonlabored However she is hypoxic on nasal cannula. Cardiovascular Heart: Regular rate Gastrointestinal Abdominal: G-tube in place. Midline scar noted. Patient is not particularly tender in the abdomen. Const: Vital Signs, click to edit/add: Vital Signs - 24 hr 08/19/23 18:37 08/19/23 18:37 08/19/23 20:45 Temperature 97.8 F Pulse Rate 74 Respiratory Rate 24 Blood Pressure Blood Pressure [Le ft Arm] 102/68 Blood Pressure [Ri ght Arm] Pulse Oximetry 94 94 Oxygen Delivery Me thod Room Air Room Air Oxygen Flow Rate 08/19/23 21:51 08/19/23 22:13 08/19/23 22:58 Temperature 99.9 F H 98.0 F 98.2 F Pulse Rate 77 76 75 Respiratory Rate 28 H 26 H 26 H Blood Pressure 123/80 123/70 138/79 Blood Pressure [Le ft Arm] Blood Pressure [Ri ght Arm] Pulse Oximetry 92 91 91 Oxygen Delivery Me thod Oxygen Flow Rate 08/19/23 23:00 08/19/23 23:00 08/19/23 23:00 Temperature 98.2 F Pulse Rate Respiratory Rate 26 H 26 H 26 H Blood Pressure Blood Pressure [Le ft Arm] Blood Pressure [Ri ght Arm] 138/79 Pulse Oximetry 91 91 Oxygen Delivery Me thod Room Air Room Air Oxygen Flow Rate 08/19/23 23:00 08/19/23 23:58 08/20/23 01:13 Temperature 98.9 F 98.9 F Pulse Rate 70 72 76 Respiratory Rate 26 H 26 H Blood Pressure 135/78 136/72 Blood Pressure [Le ft Arm] Blood Pressure [Ri ght Arm] Pulse Oximetry 91 90 Oxygen Delivery Me thod Oxygen Flow Rate 08/20/23 03:00 08/20/23 07:06 08/20/23 07:30 Temperature 98.6 F Pulse Rate 68 Respiratory Rate 26 H 26 H Blood Pressure Blood Pressure [Le ft Arm] Blood Pressure [Ri ght Arm] 144/77 H Pulse Oximetry 90 78 L Oxygen Delivery Me thod Room Air Room Air Oxygen Flow Rate 08/20/23 07:30 08/20/23 07:30 08/20/23 12:00 Temperature 98.6 F 97.9 F Pulse Rate Respiratory Rate 26 H 26 H 20 Blood Pressure Blood Pressure [Le ft Arm] 102/68 94/56 L Blood Pressure [Ri ght Arm] 144/77 H Pulse Oximetry 90 90 Oxygen Delivery Me thod Room Air Nasal Cannula Oxygen Flow Rate 3 08/20/23 15:21 08/20/23 15:30 08/20/23 15:30 Temperature 97.5 F L Pulse Rate 60 Respiratory Rate 20 20 Blood Pressure Blood Pressure [Le ft Arm] 133/76 Blood Pressure [Ri ght Arm] Pulse Oximetry 93 93 Oxygen Delivery Me thod Nasal Cannula Nasal Cannula Oxygen Flow Rate 3 3 08/20/23 15:30 Temperature Pulse Rate Respiratory Rate 20 Blood Pressure Blood Pressure [Le ft Arm] Blood Pressure [Ri ght Arm] Pulse Oximetry Oxygen Delivery Me thod Oxygen Flow Rate Results Labs Labs: Abnormal lab results 08/19/23 08/19/23 08/20/23 Range/Units 16:17 18:15 08:12 WBC 13.34 H (4.50-11.00) K/uL RBC 3.28 L (4.00-5.20) m/uL Hgb 9.5 L (12.0-16.0) gm/dL Hct 29.7 L (33.0-51.0) % RDW Coeff of Elida 17.4 H (11.5-15.5) % Neut % (Auto) 79.4 H (42.0-72.0) % Lymph % (Auto) 7.7 L (20-44) % Jenkins % (Auto) 12.0 H (0.0-11.0) % Neut # (Auto) 10.60 H (1.7-7.0) K/uL Jenkins # (Auto) 1.60 H (0.00-0.90) K/UL D-Dimer Quant (PE/DVT) 4.89 H (0.00-0.50) ug/ml Troponin I < 0.01 L < 0.01 L (0.01-0.04) ng/mL Albumin 3.2 L (3.3-5.0) g/dL Crossmatch (AHG) See Detail Diabetes panel 08/20/23 Range/Units 08:12 AST 26 (12-35) U/L ALT 33 (4-35) U/L Alkaline Phosphatase 121 (40-150) U/L Total Protein 6.7 (6.0-8.3) g/dL Albumin 3.2 L (3.3-5.0) g/dL Calcium panel 08/20/23 Range/Units 08:12 Albumin 3.2 L (3.3-5.0) g/dL Adrenal panel 08/20/23 Range/Units 08:12 Total Bilirubin 0.7 (0.1-1.5) mg/dL AST 26 (12-35) U/L ALT 33 (4-35) U/L Alkaline Phosphatase 121 (40-150) U/L Total Protein 6.7 (6.0-8.3) g/dL Albumin 3.2 L (3.3-5.0) g/dL All other labs normal. Imaging Abdomen CT scan report/results: report reviewed and image reviewed CT scan - chest: report reviewed and image reviewed Abdominal ultrasound report/results: report reviewed and image reviewed Additional studies: Patient: LINO SUGGS Facility: [facility] Site . Site : 1955 Study: US-Abdomen GB ONLY-08/20/2023 7:18:31 AM Ordering Physician: JORGE BUSTAMANTE Final Report: INDICATION: Cholelithiasis. COMPARISON: None available. TECHNIQUE: Limited sonographic examination of the gallbladder and CBD. FINDINGS: Gallbladder: Cholelithiasis. Top-normal uniform wall thickness measuring slightly less than 3 mm. Positive sonographic Isaac`s sign. CBD: 7mm Peritoneal Cavity: No significant ascites. Additional Findings: None. IMPRESSION: Cholelithiasis and a positive sonographic Isaac`s sign are consistent with acute cholecystitis in the correct clinical setting. No significant biliary ductal dilatation or pericholecystic fluid. Clinical correlation is recommended. Consider surgical consultation as clinically appropriate. Patient: [facility] Facility: [facility] Site . Site : 1955 Study: CT-Chest PE W/95CC [id number]/15/2024 8:15:07 PM Ordering Physician: DIANNA Final Report: INDICATION: Fever; chest pain. COMPARISON: CT abdomen and pelvis August 19, 2023; CT chest, abdomen and pelvis without intravenous contrast May 23, 2022; CT abdomen and pelvis April 16, 2011 and July 28, 2012. TECHNIQUE: CT chest with intravenous contrast; coronal and sagittal reformats. FINDINGS: Bilateral pleural effusion. No CT evidence of acute or chronic pulmonary thromboembolism. Pericardial effusion with thickness measuring 2 cm; relatively new compared to the previous study from May 2022. Coronary artery calcifications. Elevated right Martinez-pressure with reflux of contrast into the inferior vena cava and hepatic veins. No discrete abnormal intra pulmonary nodular densities are identified. Atelectatic changes both lung bases. IMPRESSION: 1. Pericardial effusion and bilateral pleural effusion. 2. Compression atelectasis lower lobes both lungs. 3. No acute pulmonary infiltrates on either side. Patient: [facility] Facility: [facility] Site . Site : 1955 Study: CT-Abdomen/Pelvis W/ 95CC ISOVUE 370-08/19/2023 7:33:30 PM Ordering Physician: DIANNA Final Report: INDICATION: Fever. COMPARISON: CT abdomen and pelvis without intravenous contrast April 16, 2011 and July 28, 2012; CT chest, abdomen and pelvis without intravenous or oral contrast May 23, 2022. TECHNIQUE: CT abdomen and pelvis with intravenous contrast; coronal and sagittal reformats. FINDINGS: Bilateral pleural effusion and pericardial effusion. No focal hepatic or splenic pathology. No pancreatic pathology. Distended gallbladder with cholelithiasis. No pericholecystic inflammatory changes. No adrenal pathology. 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 Infrarenal abdominal aortic aneurysm measuring 4.9 cm in diameter, was measuring 4.5 cm in 2022. No retroperitoneal lymphadenopathy. CT of the pelvis reveals diverticulosis sigmoid colon without any CT evidence of diverticulitis with abscess. Transplant kidney left iliac fossa and non functioning transplant kidney right iliac fossa. IMPRESSION: 1. Bilateral pleural effusion and pericardial effusion. 2. Gastrostomy tube in place. 3. Cholelithiasis 4. Transplant kidney left iliac fossa. 5. Diverticulosis sigmoid colon without any CT evidence of diverticulitis or abs cess. 6. Infrarenal abdominal aortic aneurysm measuring 4.9 cm in diameter; it was measuring 4.5 cm in 2022. Progress Note:A&P Assessment and plan (1) Acute cholecystitis: Status: Acute (2) Cachexia: Status: Chronic (3) Mesenteric ischemia: Status: Acute (4) Cholelithiasis: Status: Acute (5) Fever: Status: Acute (6) Pericardial effusion: Status: Acute (7) History of kidney transplant: Status: Chronic (8) Immunosuppressed status: Status: Chronic (9) G tube feedings: Status: Acute Plan The patient is a 68-year-old female with the above conditions, with calculous cholecystitis. I discussed the patient with the hospitalist as well as the patient's . She is not a surgical candidate. I recommend that she be transferred to a tertiary care facility for possible cholecystostomy tube. In the meantime recommend respiratory support with encouragement of incentive spirometry as well as antibiotics and NPO status for cholecystitis. [facility] has accepted the patient. We are awaiting a bed.
--- NOTE | 2023-08-20 19:40 | PC.NURSE ---
Discharge. pt has been very pleasant. abd pain was 8/10 this am and she got po pain meds. she is alert x3. tele shows NSR. Ax1 turn and, pivot to BSC. she is voiding. has been here. . she was 78 % on RA this am. o2 was started @ 3L nc. she took po meds with coke. she did not want meds down here peg tube. SL right FA patent. Pt has scattered bruises. pressure sore on her coccyx, Mepilex patent. Her right anterior scalp has a lac, Mepilex right kneecap. TELE reads SR with BBB overnight. PEG tube LUQ intact; she got tube feeding today. she had a U/S today and got IV antibiotics. she left for [facility] @ [facility] by [facility]
== END 2023-08-20 19:00 | disposition short-term general hospital (02) ==
LOC: ED 16:15 → MEDSURG 17:00
PROVIDERS: Family Medicine; Admitting Provider Family Medicine; Emergency Provider Student in an Organized Health Care Education/Training Program; PCP Internal Medicine; Visit Provider Family Medicine
DX: K80.00 Calculus of gallbladder with acute cholecystitis without obstruction (principal); I30.9 Acute pericarditis, unspecified; E43 Unspecified severe protein-calorie malnutrition; R64 Cachexia; L89.153 Pressure ulcer of sacral region, stage 3; L97.815 Non-pressure chronic ulcer of other part of right lower leg with muscle involvement without evidence of necrosis; D84.9 Immunodeficiency, unspecified; Z94.0 Kidney transplant status; Z93.1 Gastrostomy status; K55.1 Chronic vascular disorders of intestine; S01.81XD Laceration without foreign body of other part of head, subsequent encounter; Z68.1 Body mass index [BMI] 19.9 or less, adult; N18.9 Chronic kidney disease, unspecified; D63.1 Anemia in chronic kidney disease; F17.200 Nicotine dependence, unspecified, uncomplicated; I71.40 Abdominal aortic aneurysm, without rupture, unspecified; I25.10 Atherosclerotic heart disease of native coronary artery without angina pectoris; Z95.5 Presence of coronary angioplasty implant and graft; Z86.79 Personal history of other diseases of the circulatory system
CPT/HCPCS: 36415; 36430; 51798; 71046; 71275; 74177; 76705; 80053; 80076; 81001; 82270; 83605; 83690; 84484; 85025; 85379; 86850; 86900; 86901; 86922; 87040; 87086; 87185; 87186; 87631; 93005; 93306; 99284; A9270; J0696; J1940; J2270; J2543; J3370; J7050; J7120; J7507; J7512; P9016; Q9967

== ENCOUNTER 2023-08-20 18:44 | Outpatient (CLI) | payer BC, MEDICARE, SELFPAY ==
--- OUTSIDE RECORDS SUMMARY | 2023-08-23 03:38 | XMS_ITS | Continuity of Care Document ---
Author Name Unknown Organization [facility] Address [address] [address] [place] [address] Phone Care Team Providers Care Gridcap Machine Operator Name Role Phone Lady Torres MD Unavailable [...] Diagnoses Date Provider Providers Copied on Encounter [facility], [address] [address], [place], [place], [address], [place] tel:[phone] [facility] Colon Cancer ScreeningDiverticul osis Of ColonFamily Hx Colon Cancer Jan-200 6 Brian Narayanan. [address] [facility] [address], [address] [facility] [address] [facility] [address], [place], [place], [address] , [place]. tel:[phone] Referring Provider: Marisol Anaya, [address], [place], [address]. tel:[phone] Family History Family Member Type Diagnosis Age At Onset No Information Payers Payer name Insurance type Covered green party ID Authoriza tion(s) Florentin Mullins CI [id number] Social History Type Description Quantity Date Captured [...]
== END 2023-08-20 18:45 | disposition home or self-care (01) ==
LOC: AMB 08-23 03:36
PROVIDERS: PCP Internal Medicine; Visit Provider Student in an Organized Health Care Education/Training Program
DX: R10.9 Unspecified abdominal pain (principal)
CPT/HCPCS: A0425; A0434

== ENCOUNTER 2023-11-23 12:53 | Emergency (ER) | payer BC, MEDICARE, SELFPAY ==
[2023-11-23 12:57] VITALS: BP 184/76; PULSE 52; RESP 16; TEMP 37; O2SAT 97; BMI 17.6
[2023-11-23 13:07] VITALS: O2SAT 96
--- OUTSIDE RECORDS SUMMARY | 2023-11-23 13:18 | XMS_ITS | Continuity of Care Document ---
Author Organization [facility] Address [address] [address] [place] [address] Phone Care Team Providers Care Hoop Punch And Coiler Operator Helper Name Role Phone Lady Torres MD Unavailable [...] Date Colorectal Ca Scrn Not Hi Risk 06 Advance Directives Directive Yes / No Effective Date File Name No Information Encounters Encounter Description Practice Location Reason(s) For Visit Diagnoses Date Provider Providers Copied on Encounter [facility], [address] [address], [place], [place], [id number], [place] tel:[phone] [facility] Colon Cancer ScreeningDiverticul osis Of ColonFamily Hx Colon Cancer Sep-200 6 Brian Narayanan. [address] [facility] [address], [place], [place], [id number] , [place]. tel:[phone] Referring Provider: Marisol Anaya, [address], [place], [address]. tel:[phone] Family History Family Member Type Diagnosis Age At Onset No Information Payers Payer name Insurance type Covered republican ID Jessica cano(s) [employer] CI [id number] Social History Type Description Quantity Date Captured [...]
--- OUTSIDE RECORDS SUMMARY | 2023-11-23 13:19 | XMS_ITS | Clinical Summary ---
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 For routine questions regarding patient records, call [phone] during business hours, M-F 8:00 AM - 5:00 PM Central Time. Record requests for emergency care only can be directed to [phone] at any time.[facility] Allergies No known active allergies Medications Medication Sig Dispensed Refills Start Date End Date Status predniSONE (DELTASONE) 5 mg tabletIndications:Tr ansplant Renal (HCC),High Risk Medication TAKE 1 TABLET(5 MG) BY MOUTH DAILY 90 tablet 3 07/10/2023 Active collagenase (SANTYL) 250 unit/gram ointment Apply 1 Application topically daily. Apply to coccyx. 30 g 2 07/17/2023 Active qzzqzt-beezyhhv-ejjx ase (CREON) 36,000-114,000-180,[address] capsule Take 36,000 Units of lipase by mouth 4 (four) times a day. Active DME OxygenIndications:Ac tae Respiratory Failure With Hypoxia (HCC) DME Order - for details see Order Report 1 each 08/30/2023 Active acetaminophen (TYLENOL) 500 mg tablet Take 2 tablets (1,000 mg total) by mouth 2 (two) times a day. 08/30/2023 Active amLODIPine (NORVASC) 10 mg tablet Take 1 tablet (10 mg total) by mouth daily. 90 tablet 3 08/30/2023 04/26/202 5 Active atorvastatin (LIPITOR) 80 mg tablet Take 1 tablet (80 mg total) by mouth at bedtime. 90 tablet 3 08/30/2023 5 Active cholecalciferol, vitamin D3, 25 mcg (1,000 Unit) tablet Take 1 tablet (25 mcg total) by mouth daily. 08/30/2023 5 Active hwbtprvydzju-ziel-JL -Ca-minerals (THERAPEUTIC-M) 400 mcg (folic acid) per tablet Take 1 tablet by mouth daily. 08/30/2023 Active amiodarone (PACERONE) 200 mg tablet Take 1 tablet (200 mg total) by mouth daily. 90 tablet 08/30/2023 4 Active ondansetron ODT (ZOFRAN-ODT) 4 mg disintegrating tablet Dissolve 1 tablet (4 mg total) in the mouth every 6 (six) hours as needed for nausea or vomiting. 20 tablet 08/30/2023 Active selenium 50 mcg tablet Take 3 tablets (150 mcg total) by mouth daily. 270 tablet 08/30/2023 4 Active sodium chloride 0.9 % injection 5 mL 2 (two) times a day. 900 mL 3 08/30/2023 5 Active mycophenolate (CELLCEPT) 250 mg capsuleIndications:T ransplant Renal (HCC),Immunodeficien cy (HCC),Medication Therapy [facility] Not Anticoagulant Take 2 capsules (500 mg total) by mouth 2 (two) times a day. Do not break, cut, or open capsules. 360 capsule 3 09/06/2023 5 Active tacrolimus (PROGRAF) 1 mg capsule Take 1 capsule (1 mg total) by mouth 2 (two) times a day. 180 capsule 3 09/12/2023 5 Active bumetanide (BUMEX) 2 mg tablet Take 1 tablet (2 mg total) by mouth daily. 09/24/2023 Active pantoprazole (PROTONIX) 40 mg EC tablet Take 1 tablet (40 mg total) by mouth every morning before breakfast. 30 tablet 2 09/24/2023 4 Active cyanocobalamin (VITAMIN B12) 1,000 mcg tablet Take 1 tablet (1,000 mcg total) by mouth daily. 90 tablet 3 09/24/2023 Active diphenoxylate-atropi ne (LOMOTIL) 2.5-0.025 mg/5 mL liquid Take 10 mL by mouth 4 (four) times a day as needed for diarrhea. 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 Hyponatremia 08/17/2020 Osteoporosis 05/14/2018 Abdominal Aortic Aneurysm Without Rupture Unspec ified 11/15/2016 Immunodeficiency Due To Drugs 10/20/2010 Hyperlipidemia On Treatment 02/25/2007 Hypertensive Chronic Kidney Disease With Stage 1 Through Stage 4 Chronic Kidney Disease, Or Unspecified Chronic Kidney Disease 02/21/2007 Transplant Renal 02/05/2007 Coronary Artery Disease Without Angina Pectoris 08/20/2005 Hypertension Essential Primary 10/10/2002 Overview (09/19/2023): Hypertension Resolved Problems Problem Noted Date Diagnosed Date Resolved Date Rejection Kidney Transplant 10/25/2016 08/17/2020 Chronic Kidney Disease NOS 09/21/2015 0 08/17/2020 Failure Renal End Stage 09/10/201308/04 Complication Kidney Transplant 06/17/2008 08/17/2020 Encounters Date Type Department Care Team Description 10/16/2023 Clinical Communication Division of Gastroenterology in [place], [place] [address] [place] [phone] Bee Bermudez M.D. 10/03/2023 Clinical Communication Division of Nephrology and Hypertension in [place], [place] [address] [place] [phone] Reymundo Garcia M.D., M.B.A. Med Question 09/26/2023 Clinical Communication [facility] in [place], [place] [address] [place] [phone] Kayli Llanes APRN C.N.P., D.N.P. Follow-up Orders 09/24/2023 Orders Only [facility]ST HIM [address] [place] [phone] Fatemeh Newman M.D., M.H.A. Cholecystitis (Primary Dx) 09/22/2023 12:55 PM CDT Ancillary Procedure Department of Pulmonary and CC Medicine 09/20/2023 9:30 AM CDT Ancillary Procedure Department of Nursing 09/20/2023 9:25 AM CDT Ancillary Procedure Department of Nursing 09/19/2023 2:59 PM CDT - 09/24/2023 6:06 PM CDT Hospital Encounter [facility], [facility], Third Floor [address] [place] [phone] Sakina Anderson APRN, C.N.P., D.N.P. Kayli Carpio M.D. Fatemeh Newman M.D., M.H.A. Failure Renal Acute (Acute Kidney Injury) (HCC) (Primary Dx); Effusion Pericardial Acute (HCC); Prolonged QT Interval; Pain Chest; Effusion Pleural; Decline Functional Status [R53.81] Discharge Disposition: Home-Health Care [facility] 09/18/2023 10:25 AM CDT - 09/18/2023 7:15 PM CDT Emergency [facility] [place] [facility] [address] [place] [phone] Spring Mccormack M.D. Insufficiency Renal (Primary Dx); Prolonged QT Interval; Abdominal Pain; Failure To Thrive Adult Discharge Disposition: Home or Self Care 09/18/2023 Nurse Triage Department of [facility], [address] [phone] Cierra Bailey REdison 09/17/2023 Clinical Communication [facility] [place], [place] [address] [place] [address] Kayli Llanes APRN, C.N.P., D.N.P. 09/16/2023 Clinical Communication Division of [facility], [place], [place] [address] [place] [address] tJ Melchor M.D. [employer] Form ([employer]) 09/13/2023 Orders Only Department of Radiology, [facility], in [place], [place] [address] [place] [phone] Margaret Mccall P.A.-C., M.S. Cholecystitis (Primary Dx) 09/13/2023 Refill Division of [facility], [facility] in [place], [place] [address] [place] [phone] Tammy Moreira M.D. Med Refill 09/13/2023 Refill Division of [facility], [facility] in [place], [place] [address] [place] [phone] Jt Melchor M.D. Med Refill 09/09/2023 9:30 AM CDT Comprehensive Visit Department of Cardiovascular Medicine in [place], [place] [address] [place] [phone] Kalyn Livingston M.D. Tachy Bennie Syndrome (HCC) 09/06/2023 11:04 AM CDT - 09/06/2023 11:59 PM CDT Hospital Encounter Department of Laboratory Medicine and Pathology, [facility] in [place], [place] [address] [place] [address] Kayli Llanes APRN, C.N.P., D.N.P. Transplant Renal (HCC) Discharge Disposition: Home or Self Care 09/06/2023 10:30 AM CDT [facility] [address] [phone] Kayli Llanes APRN, C.N.P., D.N.P. Transplant Renal (HCC) (Primary Dx); Immunodeficiency (HCC); Medication Therapy [facility] Not Anticoagulant 09/06/2023 7:50 AM CDT - 09/06/2023 11:03 AM CDT Hospital Encounter Department of Laboratory Medicine and Pathology, [facility] in [address] [phone] Daysi Mariano M.D. Transplant Renal (HCC) Discharge Disposition: Home or Self Care 09/06/2023 Orders Only [facility] in [address] [phone] Mere Blair R.N., C.C.T.CMarlys Immunodeficiency (HCC) (Primary Dx); Transplant Renal (HCC); High Risk Medication 09/04/2023 Orders Only [facility] [address] [phone] Gabrielle Hernandez M.D. Cholecystitis (Primary Dx) 09/02/2023 Clinical Communication [facility] [address] [phone] Estephanie Lewis M.D. Post Hospital Follow-up 08/30/2023 11:50 AM CDT Ancillary Procedure Department of Internal Medicine 08/30/2023 9:00 AM CDT Ancillary Procedure Department of Internal Medicine 08/30/2023 7:15 AM CDT - 08/30/2023 11:59 PM CDT Hospital Encounter Division of Cardiovascular Diseases in [place], [place] [address], [place] [address] Gabrielle Hernandez M.D. Discharge Disposition: Home or Self Care 08/30/2023 Orders Only Division of Pulmonary Medicine in [address] [phone] Glen Gayle M.D. 08/30/2023 Clinical Communication [facility] [address] [phone] Daysi Mariano M.D. Pre-visit Testing Orders 08/29/2023 3:20 PM CDT Ancillary Procedure Department of Pulmonary and CC Medicine 08/28/2023 2:50 PM CDT Ancillary Procedure Department of Pulmonary and CC Medicine 08/28/2023 10:45 AM CDT Ancillary Procedure Department of Nursing 08/28/2023 10:40 AM CDT Ancillary Procedure Department of Nursing 08/28/2023 10:35 AM CDT Ancillary Procedure Department of Nursing 08/24/2023 11:50 AM CDT Ancillary Procedure Department of Pulmonary and CC Medicine 08/24/2023 11:45 AM CDT Ancillary Procedure Department of Pulmonary and CC Medicine 08/24/2023 7:25 AM CDT Ancillary Procedure Department of Pulmonary and CC Medicine 08/20/2023 8:25 PM CDT - 08/30/2023 7:04 PM CDT Hospital Encounter [facility], Fourth Floor [address] [place] [phone] Shana Her M.D. Roddy Amin M.B.B.S., Michelle. Vamshi Vivas M.D. Cris Gracia M.D. Citlaly Jefferson M.D. Rhoda Bobo M.D. Enmanuel Vila M.D., Ph.D. Effusion Pleural (Primary Dx); Erosion Skin [L98.8]; Malnutrition Severe Protein-Calorie (HCC); Decline Functional Status; Other Specified Disorders Of The Skin And Subcutaneous Tissue [L98.8]; Atrial Fibrillation Personal History; Tachy Bennie Syndrome (HCC); Transplant Renal (HCC); Immunodeficiency (HCC); Medication Therapy [facility] Not Anticoagulant; Acute Respiratory Failure With Hypoxia (HCC); Cholecystitis; Immunodeficiency Due To Drugs (HCC) Discharge Disposition: Home-Health Care [facility] from Last 3 Months Immunizations Name Administration Dates Next Due Influenza Split 01/25/2016,01/27/2014 PCV13 03/10/2015 PPSV23 05/06/2006 Td, (Adult) Unspecified 05/06/2006 Tdap 05/31/2016 influenza vaccine quad (FLUZ ONE/FLUARIX) (6 months and older)(PF) 02/11/2015 Social History Tobacco Use Types Packs/Day Years Used Date Smoking Tobacco: Former Cigarettes Smokeless Tobacco: Never Tobacco Cessation:Counseling Given: No Alcohol Use Standard Drinks/Week Comments Not Currently 0 (1 standard drink = 0.6 oz pur e alcohol) [facility] Utilities Answer Date Recorded In the past 12 months has th e electric, gas, oil, or water company threatened to shut off services in your home? No 09/19/2023 Humiliation, Afraid, Rape, and Kick questionnair e Answer Date Recorded Within the last year, have y ou been afraid of your partner or ex-partner? No 09/19/2023 Within the last year, have y ou been humiliated or emotionally abused in other ways by your partner or ex-partner? No Within the last year, have y ou been kicked, hit, slapped, or otherwise physically hurt by your partner or ex-partner? No 09/19/2023 Within the last year, have y ou been raped or forced to have any kind of sexual activity by your partner or ex-partner? No 09/19/2023 Hunger Vital Sign Answer Date Recorded Within the past 12 months, y ou worried that your food would run out before you got the money to buy more. Never true 09/19/19 24 Within the past 12 months, t he food you bought just didn't last and you didn't have money to get more. Never true 09/19/2023 PRAPARE - Transportation Answer Date Re corded In the past 12 months, has l ack of transportation kept you from medical appointments or from getting medications? No 09/03 In the past 12 months, has l ack of transportation kept you from meetings, work, or from getting things needed for daily living? No 09/19/2023 Nutrition Answer Date Recorded Nutrition: EVOO Fat Source 13 11/30 Nutrition: Servings of Fruits/Vegetables per Day Not on file 12/01/2019 Dental Answer Date Recorded Dental: Regular Dentist Unknown 06/24/19 21 Housing Stability Answer Date Recorded What is your living situation today? I have a [facility] place to live 09/19/2023 Sex and Gender Information Value Date Recorded Sex Assigned at Female 05/14/2018 2:49 PM PRESIDING JUDGE Gender Identity Female 05/14/2018 2:49 PM PRESIDING JUDGE Sexual Orientation Straight 05/14/2018 2: 49 PM PRESIDING JUDGE Last Filed Vital Signs Vital Sign Reading Time Taken Comments Blood Pressure 167/72 09/24/2023 4:36 PM CDT Pulse 50 09/24/2023 4:36 PM CDT Temperature 36.8 ??C (98.2 ??F) 09/24/2023 4:36 PM CD T Respiratory Rate 15 09/24/2023 4:36 PM CDT Oxygen Saturation 91% 09/24/2023 4:36 PM CDT Inhaled Oxygen Concentration - - Weight 36.9 kg (81 lb 5.6 oz) 09/21/2023 5:00 AM CDT Height 165.1 cm (5' 5) 09/20/2023 11:34 AM CDT Body Mass Index 13.54 09/20/2023 11:34 AM CDT Plan of Treatment Upcoming Encounters Date Type Department Care Team (Latest Contact Info) Description 01/03/2024 2:15 PM CDT Clinical Communication Virtual Review in [place], [place] 200 [place] [phone] 01/07/2024 3:00 PM CDT Office Visit Division of Gastroenterology in [place], [place] [address] [place] [phone] Hank Garner Jr., M.D. [address] [place] [phone] Health Maintenance Due Date Last Done Comments CT Colonography 1954 Cologuard 1955 FIT 1954 COVID-19 Vaccine (#1) 07/05/1959 Zoster Vaccines (1 of 2) 1973 Pneumococcal vaccine (65+ years) (3 of 3 - PPSV23 or PCV20) 05/05/2015 03/10/2015, 05/06/2006 Mammogram 05/30/2017 05/30/2016, 01/05, 11/03/2013 (Performed elsewhere), Additional history exists Depression Screening (Annual PHQ-2) 05/06/2023 Office Visit for Blood Pressure Check / Re-check 12/10/2023 09/09/2023 Influenza Vaccine (#1) 2024 01/12/202 3, 01/25/2016, 02/11/2015, Additional history exists Colonoscopy 02/15/2025 02/15/2015, 07/2013 (Performed elsewhere), 05/06/2006 (Performed elsewhere) Colorectal Cancer Screening 02/15/2025 DTaP,Tdap,and Td Vaccines (2 - Td or Tdap) 05/31/2026 05/31/2016, 05/06/2006 Fasting Glucose for Diabetes Screening 09/23/2026 09/24/2023, 09/23/2023, 09/22/2023, Additional history exists Lipid (Cholesterol) Screening 08/22/2028 08/23/2023, 01/05/2021, 08/16/2020, Additional history exists Cervical Cancer Screening Discontinued 2013 (Performed elsewhere), 05/06/2010 (Performed elsewhere), 04/05/2009 (Performed elsewhere) Fall Risk Screen (Annual) Completed 07/31/2023 HPV Vaccines Aged Out No longer eligi ble based on patient's age to complete this topic Medical Devices Implanted Type Area Commodity Lead Device Identifier Shelf Expiration Date Model / Serial / Lot Stnt Ctt Otw 10f 5 - [id number] Implanted:Qty: 1 on 08/21/2023 by Torito Telles M.D. at [facility] Biliary Stent [employer] 04/24/2026 [id number] / / [id number] Gel Inj W/Lido - [id number] Implanted:Qty: 1 on 06/18/2023 by Jt Rosenthal M.D. at [facility] Bone or Tissue Right: Vocal Cord [employer] 06/05/2025 [id number] / / [id number] Conversions - Default Historical Implant Device Implanted:01/17 (Quantity not on file) Cardiac Other Chest Description:Body Location - Chest. stents. Device Status Text - CardOther. Explanted Type Area Commodity Lead Device Identifier Shelf Expiration Date Model / Serial / Lot Stent Uret Dbl. J 7 X 12 - [id number] Implanted:Qty: 1 on 01/31/2007 Ureteral Stent Ureter Other/Legacy - See Implant Description Description:Device Manufactu rer - [employer]. Device Status Text - [id number]. Procedures Procedure Name Priority Date/Time Associated Diagnosis Comments BASIC METABOLIC PANEL, S/P Routine 09/24/2023 6:41 AM CDT CBC WITH DIFFERENTIAL, B Routine 09/24/2023 6:41 AM CDT METHYLMALONIC ACID (MMA), MURALI, S Routine 09/24/2023 6:21 AM CDT MAGNESIUM, S Routine 09/23/2023 8:24 AM CDT FOLATE, S Routine 09/23/2023 8:24 AM CDT VITAMIN B12 ASSAY, S Routine 09/23/2023 8:24 AM CDT TACROLIMUS LEVEL, B Timed 09/23/2023 8 :24 AM CDT C-REACTIVE PROTEIN (CRP), S/P Routine 09/23/2023 8:24 AM CDT CBC WITH DIFFERENTIAL, B Routine 09/23/2023 8:24 AM CDT BASIC METABOLIC PANEL, S/P Routine 09/23/2023 8:24 AM CDT BASIC METABOLIC PANEL, S/P Routine 09/22/2023 4:25 PM CDT MO THORACENTESIS PLEURA W IMG Routine 09/22/2023 1:18 PM CDT Effusion Pleural PULMONARY AND CC MEDICINE IMAGE EXAM Routine 09/22/2023 12:55 PM CDT DX CHEST PORTABLE 1 VIEW RAD - Semiurgent (Fast; most ED patients; some inpatients) 09/22/2023 9:13 AM CDT CBC WITH DIFFERENTIAL, B Routine 09/22/2023 8:12 AM CDT BASIC METABOLIC PANEL, S/P Routine 09/22/2023 8:12 AM CDT GI PATHOGEN PANEL, PCR, F Routine 09/21/2023 7:50 PM CDT SPSMA RESULT Routine 09/21/2023 7:18 PM CDT BASIC METABOLIC PANEL, S/P Timed 09/21/2023 7:18 PM CDT HAPTOGLOBIN, S Routine 09/21/2023 7:18 PM CDT LACTATE DEHYDROGENASE (LD), S Routine 09/21/2023 7:18 PM CDT TRANSFUSE RED BLOOD CELLS Routine 09/21/2023 4:45 PM CDT PREPARE RED BLOOD CELLS Routine 09/21/2023 1:03 PM CDT ABORH, RBC Routine 09/21/2023 1:03 PM CDT ANTIBODY IDENTIFICATION Routine 09/21/2023 1:03 PM CDT SEDIMENTATION RATE, B STAT 09/21/2023 1:03 PM CDT TYPE AND SCREEN Routine 09/21/2023 1:03 PM CDT NT-PRO B-TYPE NATRIURETIC PEPTIDE (BNP), S Routine 09/21/2023 9:23 AM CDT CYSTATIN C WITH EGFR Routine 09/21/2023 9:23 AM CDT TACROLIMUS LEVEL, B Timed 09/21/2023 9 :23 AM CDT HEPATIC FUNCTION PANEL, S Timed 09/21/2023 9:23 AM CDT C-REACTIVE PROTEIN (CRP), S/P Routine 09/21/2023 9:23 AM CDT CBC WITH DIFFERENTIAL, B Routine 09/21/2023 9:23 AM CDT BASIC METABOLIC PANEL, S/P Routine 09/21/2023 9:23 AM CDT US KIDNEY TRANSPLANT LEFT WITH DOPPLER RAD - Routine (most inpatients and all outpatients) 09/20/2023 1:00 PM CDT NURSING IMAGE EXAM Routine 09/20/2023 9: 28 AM CDT PHOSPHORUS (INORGANIC), S Routine 09/20/2023 9:28 AM CDT MAGNESIUM, S Routine 09/20/2023 9:28 AM CDT TACROLIMUS LEVEL, B Timed 09/20/2023 9 :28 AM CDT HEPATIC FUNCTION PANEL, S Routine 09/20/2023 9:28 AM CDT CBC WITH DIFFERENTIAL, B Routine 09/20/2023 9:28 AM CDT BASIC METABOLIC PANEL, S/P Routine 09/20/2023 9:28 AM CDT NURSING IMAGE EXAM Routine 09/20/2023 9: 25 AM CDT US GALLBLADDER AND OR BILIARY DUCTS RAD - Semiurgent (Fast; most ED patients; some inpatients) 09/19/2023 11:45 PM CDT TROPONIN T, 2H/6H, 5TH GEN, P Timed 09/19/2023 6:09 PM CDT (TTE) 2D LIMITED WITH COLOR AND DOPPLER STAT 09/19/2023 5:22 PM CDT LIPASE, S/P STAT 09/19/2023 3:59 PM CDT HEPATIC FUNCTION PANEL, S STAT 09/19/2023 3:59 PM CDT C-REACTIVE PROTEIN (CRP), S/P STAT 09/19/2023 3:59 PM CDT LACTATE, B STAT 09/19/2023 3:59 PM CDT BASIC METABOLIC PANEL, S/P STAT 09/19/2023 3:59 PM CDT CBC WITH DIFFERENTIAL, B STAT 09/19/2023 3:59 PM CDT PROTHROMBIN TIME (PT), P STAT 09/19/2023 3:59 PM CDT TROPONIN T, BASELINE, 5TH GEN, P STAT 09/19/2023 3:59 PM CDT ECG STAT 09/19/2023 3:12 PM CDT TACROLIMUS LEVEL, B Timed 09/18/2023 6 :10 PM CDT SODIUM, RANDOM, U Routine 09/18/2023 3:5 9 PM CDT CREATININE, RANDOM, U Routine 09/18/2023 3:59 PM CDT DIPSTICK, U STAT 09/18/2023 3:59 PM CDT OSMOLALITY, U STAT 09/18/2023 3:59 PM CDT PH, U STAT 09/18/2023 3:59 PM CDT MICROSCOPIC AUTOMATED STAT 09/18/2023 3:59 PM CDT URINALYSIS WITH MICROSCOPIC STAT 09/18/2023 3:59 PM CDT US LOWER EXTREMITY VEINS LEFT RAD - Semiurgent (Fast; most ED patients; some inpatients) 09/18/2023 3:08 PM CDT TROPONIN T, 2H/6H, 5TH GEN, P Timed 09/18/2023 2:[address] ABDOMEN PELVIS WITH IV CONTRAST RAD - Semiurgent (Fast; most ED patients; some inpatients) 09/18/2023 1:25 PM CDT DX CHEST AP OR PA AND LATERAL 2 VIEWS RAD - Semiurgent (Fast; most ED patients; some inpatients) 09/18/2023 1:03 PM CDT BACTERIA / MELISSA CULTURE, BLOOD STAT 09/18/2023 12:07 PM CDT HEPATIC FUNCTION PANEL, S STAT 09/18/2023 11:56 AM CDT LACTATE, B STAT 09/18/2023 11:56 AM CDT LIPASE, S/P STAT 09/18/2023 11:56 AM CDT CBC WITH DIFFERENTIAL, B STAT 09/18/2023 11:56 AM CDT BASIC METABOLIC PANEL, S/P STAT 09/18/2023 11:56 AM CDT BACTERIA / MELISSA CULTURE, BLOOD STAT 09/18/2023 11:56 AM CDT CYSTATIN C WITH EGFR Routine 09/18/2023 11:42 AM CDT C-REACTIVE PROTEIN (CRP), S/P STAT 09/18/2023 11:42 AM CDT TROPONIN T, BASELINE, 5TH GEN, P STAT 09/18/2023 11:42 AM CDT MAGNESIUM, S STAT 09/18/2023 11:42 AM CDT ECG STAT 09/18/2023 11:39 AM CDT ECG AMBULATORY REAL TIME CARDIAC MONITORING - [facility] Routine 09/12/2023 12:28 PM CDT Atrial Fibrillation Personal History Tachy Bennie Syndrome (HCC) HEPATIC FUNCTION PANEL, S Routine 09/06/2023 11:44 AM CDT Transplant Renal (HCC) CBC WITH DIFFERENTIAL, B Routine 09/06/2023 11:44 AM CDT Transplant Renal (HCC) BASIC METABOLIC PANEL, S/P Routine 09/06/2023 8:34 AM CDT Transplant Renal (HCC) TACROLIMUS LEVEL, B Routine 09/06/2023 8 :34 AM CDT Transplant Renal (HCC) HEPATIC FUNCTION PANEL, S Routine 09/06/2023 8:30 AM CDT Transplant Renal (HCC) HEMOGLOBIN, B Timed 08/30/2023 4:11 PM CDT INTERNAL MEDICINE IMAGE EXAM Routine 08/30/2023 11:50 AM CDT INTERNAL MEDICINE IMAGE EXAM Routine 08/30/2023 8:59 AM CDT TACROLIMUS LEVEL, B Timed 08/30/2023 7 :42 AM CDT CYSTATIN C WITH EGFR Routine 08/30/2023 7:42 AM CDT CBC WITH DIFFERENTIAL, B Routine 08/30/2023 7:42 AM CDT MAGNESIUM, S Routine 08/30/2023 7:42 AM CDT RENAL FUNCTION PANEL, S Routine 08/30/2023 7:42 AM CDT MO THORACENTESIS PLEURA W IMG Routine 08/29/2023 3:27 PM CDT Effusion Pleural PULMONARY AND CC MEDICINE IMAGE EXAM Routine 08/29/2023 3:20 PM CDT REMOTE OXIMETRY MONITORING CONT. Routine 08/29/2023 8:01 AM CDT ADULT OXYGEN THERAPY Routine 08/29/2023 8:01 AM CDT CYSTATIN C WITH EGFR Routine 08/29/2023 7:58 AM CDT CBC WITH DIFFERENTIAL, B Routine 08/29/2023 7:58 AM CDT MAGNESIUM, S Routine 08/29/2023 7:58 AM CDT RENAL FUNCTION PANEL, S Routine 08/29/2023 7:58 AM CDT REMOTE OXIMETRY MONITORING CONT. Routine 08/28/2023 8:00 PM CDT ADULT OXYGEN THERAPY Routine 08/28/2023 8:00 PM CDT HEMOGLOBIN, B Timed 08/28/2023 6:58 PM CDT MICROSCOPIC MANUAL Routine 08/28/2023 5: 32 PM CDT DIPSTICK, U Routine 08/28/2023 5:32 PM CDT PH, U Routine 08/28/2023 5:32 PM CDT OSMOLALITY, U Routine 08/28/2023 5:32 PM CDT URINALYSIS WITH MICROSCOPIC Routine 08/28/2023 5:32 PM CDT BACTERIAL CULTURE, AEROBIC + SUSC, URINE Routine 08/28/2023 5:32 PM CDT MO THORACENTESIS PLEURA W IMG Routine 08/28/2023 3:22 PM CDT Effusion Pleural PULMONARY AND CC MEDICINE IMAGE EXAM Routine 08/28/2023 2:[address] ABDOMEN PELVIS WITHOUT IV CONTRAST RAD - Routine (most inpatients and all outpatients) 08/28/2023 1:15 PM CDT CBC WITH DIFFERENTIAL, B STAT 08/28/2023 11:23 AM CDT AMYLASE, TOT, S STAT 08/28/2023 11:23 AM CDT LIPASE, S/P STAT 08/28/2023 11:23 AM CDT LACTATE, B/P STAT 08/28/2023 11:23 AM CDT NURSING IMAGE EXAM Routine 08/28/2023 10:35 AM CDT NURSING IMAGE EXAM Routine 08/28/2023 10:35 AM CDT NURSING IMAGE EXAM Routine 08/28/2023 10:35 AM CDT DX ABDOMEN SUPINE WITH UPRIGHT OR DECUBITUS 2 VIEWS RAD - Routine (most inpatients and all outpatients) 08/28/2023 8:57 AM CDT REMOTE OXIMETRY MONITORING CONT. Routine 08/28/2023 8:01 AM CDT ADULT OXYGEN THERAPY Routine 08/28/2023 8:01 AM CDT TACROLIMUS LEVEL, B Timed 08/28/2023 7 :40 AM CDT HEPATIC FUNCTION PANEL, S Routine 08/28/2023 7:40 AM CDT RENAL FUNCTION PANEL, S Routine 08/28/2023 7:40 AM CDT MAGNESIUM, S Routine 08/28/2023 7:40 AM CDT CBC WITH DIFFERENTIAL, B Routine 08/28/2023 7:40 AM CDT REMOTE OXIMETRY MONITORING CONT. Routine 08/27/2023 8:00 PM CDT ADULT OXYGEN THERAPY Routine 08/27/2023 8:00 PM CDT RT TO ARRANGE FOR HOME DME Routine 08/27/2023 2:02 PM CDT (TTE) 2D LIMITED WITH LIMITED DOPPLER Routine 08/27/2023 9:01 AM CDT REMOTE OXIMETRY MONITORING CONT. Routine 08/27/2023 8:00 AM CDT ADULT OXYGEN THERAPY Routine 08/27/2023 8:00 AM CDT TACROLIMUS LEVEL, B Timed 08/27/2023 7 :45 AM CDT CYSTATIN C WITH EGFR Routine 08/27/2023 7:45 AM CDT RENAL FUNCTION PANEL, S Routine 08/27/2023 7:45 AM CDT MAGNESIUM, S Routine 08/27/2023 7:45 AM CDT CBC WITH DIFFERENTIAL, B Routine 08/27/2023 7:45 AM CDT REMOTE OXIMETRY MONITORING CONT. Routine 08/26/2023 8:00 PM CDT ADULT OXYGEN THERAPY Routine 08/26/2023 8:00 PM CDT REMOTE OXIMETRY MONITORING CONT. Routine 08/26/2023 8:01 AM CDT ADULT OXYGEN THERAPY Routine 08/26/2023 8:01 AM CDT CYSTATIN C WITH EGFR Routine 08/26/2023 7:33 AM CDT MAGNESIUM, S Timed 08/26/2023 7:33 AM CDT RENAL FUNCTION PANEL, S Timed 08/26/2023 7:33 AM CDT TACROLIMUS LEVEL, B Timed 08/26/2023 7 :33 AM CDT CBC WITH DIFFERENTIAL, B Routine 08/26/2023 7:33 AM CDT ECG Routine 08/26/2023 7:18 AM CDT MAGNESIUM, S Timed 08/25/2023 8:23 PM CDT RENAL FUNCTION PANEL, S Timed 08/25/2023 8:23 PM CDT REMOTE OXIMETRY MONITORING CONT. Routine 08/25/2023 8:00 PM CDT ADULT OXYGEN THERAPY Routine 08/25/2023 8:00 PM CDT REMOTE OXIMETRY MONITORING CONT. Routine 08/25/2023 8:00 AM CDT ADULT OXYGEN THERAPY Routine 08/25/2023 8:00 AM CDT MAGNESIUM, S Timed 08/25/2023 7:23 AM CDT RENAL FUNCTION PANEL, S Timed 08/25/2023 7:23 AM CDT TACROLIMUS LEVEL, B Timed 08/25/2023 7 :23 AM CDT CBC WITH DIFFERENTIAL, B Routine 08/25/2023 7:23 AM CDT MRSA/STAPHYLOCOCCUS AUREUS, NASAL, BY PCR Routine 08/25/2023 6:39 AM CDT MAGNESIUM, S Timed 08/24/2023 8:34 PM CDT RENAL FUNCTION PANEL, S Timed 08/24/2023 8:34 PM CDT REMOTE OXIMETRY MONITORING CONT. Routine 08/24/2023 8:00 PM CDT ADULT OXYGEN THERAPY Routine 08/24/2023 8:00 PM CDT LACTATE DEHYDROGENASE (LD), S Timed 08/24/2023 2:58 PM CDT DX CHEST PORTABLE 1 VIEW RAD - Semiurgent (Fast; most ED patients; some inpatients) 08/24/2023 2:23 PM CDT MO THORACENTESIS PLEURA W IMG Routine 08/24/2023 1:49 PM CDT Effusion Pleural TRIGLYCERIDES, BF Routine 08/24/2023 12:50 PM CDT PROTEIN, TOTAL, BF Routine 08/24/2023 12:50 PM CDT PH, PLEURAL FLUID Routine 08/24/2023 12:50 PM CDT LACTATE DEHYDROGENASE (LD), BF Routine 08/24/2023 12:50 PM CDT CELL COUNT AND DIFFERENTIAL, BF Routine 08/24/2023 12:50 PM CDT BILIRUBIN, BODY FLUID Routine 08/24/2023 12:50 PM CDT GRAM STAIN Routine 08/24/2023 12:50 PM CDT FUNGAL SMEAR Routine 08/24/2023 12:50 PM CDT FUNGAL CULTURE, ROUTINE Routine 08/24/2023 12:50 PM CDT BROAD RANGE BACTERIA PCR AND SEQUENCING Routine 08/24/2023 12:50 PM CDT BACTERIAL CULTURE, AEROBIC + SUSC Routine 08/24/2023 12:50 PM CDT PULMONARY AND CC MEDICINE IMAGE EXAM Routine 08/24/2023 11:50 AM CDT PULMONARY AND CC MEDICINE IMAGE EXAM Routine 08/24/2023 11:45 AM CDT DX CHEST PORTABLE 1 VIEW RAD - Semiurgent (Fast; most ED patients; some inpatients) 08/24/2023 8:19 AM CDT REMOTE OXIMETRY MONITORING CONT. Routine 08/24/2023 8:00 AM CDT ADULT OXYGEN THERAPY Routine 08/24/2023 8:00 AM CDT MAGNESIUM, S Timed 08/24/2023 7:54 AM CDT RENAL FUNCTION PANEL, S Timed 08/24/2023 7:54 AM CDT TACROLIMUS LEVEL, B Timed 08/24/2023 7 :54 AM CDT PROTEIN, TOTAL, S/P Routine 08/24/2023 7 :42 AM CDT PULMONARY AND CC MEDICINE IMAGE EXAM Routine 08/24/2023 7:25 AM CDT CERULOPLASMIN, S Routine 08/24/2023 4:14 AM CDT SELENIUM, S Routine 08/24/2023 4:14 AM CDT COPPER, S Routine 08/24/2023 4:14 AM CDT VITAMIN A, S Routine 08/24/2023 4:14 AM CDT ZINC, S Routine 08/24/2023 4:14 AM CDT CBC WITH DIFFERENTIAL, B Routine 08/24/2023 4:14 AM CDT ASCORBIC ACID (VITAMIN C), P Routine 08/24/2023 4:13 AM CDT LIPID PANEL, S STAT 08/23/2023 3:53 PM CDT BI BREAST SCREENING BILATERAL Routine 05/30/2016 9:29 AM PRESIDING JUDGE COLONOSCOPY Routine 02/15/2015 2:43 PM CDT from Last 3 Months or Most Recently Relevant to Health Maintenance Results * (ABNORMAL) CBC with Differential, Blood (09/24/2023 6:41 AM CDT) Only the most recent of16 resultswithin the time period is included. Hemoglobin 8.1(L) 11.6 - 15.0 g/dL 09/24/2023 7:30 AM CDT DTL Hematocrit 24.8(L) 35.5 - 44.9 % 09/24/2023 7:30 AM CDT DTL Erythrocytes 2.81(L) 3.92 - 5.13 x10(12)/L 09/24/2023 7:30 AM CDT DTL MCV 88.3 78.2 - 97.9 fL 09/24/2023 7:30 AM CDT DTL RBC Distrib Width 16.2(H) 12.2 - 16.1 % 09/24/2023 7:30 AM CDT DTL Platelet Count 308 157 - 371 x10(9)/L 09/24/2023 7:30 AM CDT DTL Leukocytes 10.7(H) 3.4 - 9.6 x10(9)/L 09/24/2023 7:30 AM CDT DTL Neutrophils 8.48(H) 1.56 - 6.45 x10(9)/L 09/24/2023 7:30 AM CDT PM Lymphocytes 1.35 0.95 - 3.07 x10(9)/L 09/24/2023 7:30 AM CDT DTL Monocytes 0.75 0.26 - 0.81 x10(9)/L 09/24/2023 7:30 AM CDT DTL Eosinophils 0.03 0.03 - 0.48 x10(9)/L 09/24/2023 7:30 AM CDT DTL Basophils 0.04 0.01 - 0.08 x10(9)/L 09/24/2023 7:30 AM CDT DTL Blood (Blood, Venous) 09/24/2023 6:41 AM CDT 09/24/2023 7:15 AM CDT Rufino Lopez M.D. LAB BLOOD ADD-ON [facility] [address] [place] [address], [facility] DTL [facility] [address] [place] [address] [facility] [address] [place] [address] * (ABNORMAL) Basic Metabolic Panel (09/24/2023 6:41 AM CDT) Only the most recent of10 resultswithin the time period is included. [facility] Potassium, S 4.8 3.6 - 5.2 mmol/L 09/24/2023 7:51 AM CDT DTL Sodium, S 134(L) 135 - 145 mmol/L 09/24/2023 7:51 AM CDT DTL Chloride, S 101 98 - 107 mmol/L 09/24/2023 7:51 AM CDT DTL Bicarbonate, S 22 22 - 29 mmol/L 09/24/2023 7:51 AM CDT DTL Anion Gap 11 7 - 15 09/24/2023 7:51 AM CDT DTL BUN (Blood Urea Nitrogen), S 69(H) 6 - 21 mg/dL 09/24/2023 7:51 AM CDT DTL Creatinine 2.50(H) 0.59 - 1.04 mg/dL 09/24/2023 7:51 AM CDT DTL Estimated GFR (eGFR) 20(L) >=60 mL/min/BSA 09/24/2023 7:51 AM CDT DTL Comment: Estimated GFR calculated using the 2020 CKD_EPI creatinine equation. Calcium, Total, S 9.2 8.8 - 10.2 mg/dL 09/24/2023 7:51 AM CDT DTL Glucose, S 86 70 - 140 mg/dL 09/24/2023 7:51 AM CDT DTL Blood (Blood, Venous) 09/24/2023 6:41 AM CDT 09/24/2023 7:30 AM CDT Rufino Lopez M.D. LAB BLOOD ADD-ON [address] [address], [facility] [place] [address] [place] [address] * (ABNORMAL) Methylmalonic Acid (MMA), Quantitative (09/24/2023 6:21 AM CDT) Methylmalonic Acid, QN, S 0.66(H) <=0.40 nmol/mL 09/26/2023 7:57 AM CDT DTL Comment: In this sample, the concentration of methylmalonic acid (MMA) was elevated. This finding is likely related to vitamin B12 deficiency. ----ADDITIONAL INFORMATION---- This test was developed and its performance characteristics determined by [facility] in a manner consistent with CLIA requirements. This test has not been cleared or approved by the U.S. Food and Drug Administration. Blood (Blood, Venous) 09/24/2023 6:21 AM CDT 09/25/2023 7:56 AM CDT Fatemeh Newman M.D., M.H.A. LAB BLOOD ADD -ON Performing Organization Address City/[facility]/ZIP Co de Phone Number [facility] [address] [place] [address], [facility] DT 200 [facility] [address] [place] [address] * (ABNORMAL) Tacrolimus, Trough (09/23/2023 8:24 AM CDT) Only the most recent of11 resultswithin the time period is included. [facility] Tacrolimus, Trough 4.5(L) 5.0-15.0 (Trough) ng/mL 09/23/2023 12:44 PM CDT [facility] Comment: ----ADDITIONAL INFORMATION---- Target steady-state trough concentrations vary depending on the type of transplant, concomitant immunosuppression, clinical/institutional protocols, and time post-transplant. Results should be interpreted in conjunction with this clinical information and any physical signs/symptoms of rejection/toxicity. Testing performed by Liquid Chromatography-Tandem Mass Spectrometry (LC-MS/MS). This test was developed and its performance characteristics determined by [facility] in a manner consistent with CLIA requirements. This test has not been cleared or approved by the U.S. Food and Drug Administration. Blood (Blood, Venous) 09/23/2023 8:24 AM CDT 09/23/2023 9:55 AM CDT Rufino Lopez M.D. LAB BLOOD NON ADD-ON [facility] [address] [place] [address] [facility] [address] [place] [address] [place] [address] * (ABNORMAL) CRP (C-Reactive Protein) (09/23/2023 8:24 AM CDT) Only the most recent of4 resultswithin the time period is included. [facility] C-Reactive Protein (CRP), S 51.9(H) <5.0 mg/L 09/23/2023 11:23 AM CDT DT Blood (Blood, Venous) 09/23/2023 8:24 AM CDT 09/23/2023 8:56 AM CDT Rufino Lopez M.D. LAB BLOOD ADD-ON [facility] [address] [place] [address], [facility] [address] [place] [address] * Magnesium (09/23/2023 8:24 AM CDT) Only the most recent of12 resultswithin the time period is included. Pathologist [facility] Magnesium, S 2.1 1.7 - 2.3 mg/dL 09/23/2023 1:26 PM CDT DT Blood 09/23/2023 8:24 AM CDT 09/23/2023 12:54 PM CDT Rufino Lopez M.D. LAB BLOOD ADD-ON [facility] [address] [place] [address], [facility] [address] [place] [address] * Folate (09/23/2023 8:24 AM CDT) Pathologist [facility] Folate, S >20.0 >=4.0 mcg/L 09/24/2023 8: 04 AM CDT DT Blood 09/23/2023 8:24 AM CDT 09/23/2023 12:54 PM CDT Rufino Lopez M.D. LAB BLOOD ADD-ON [facility] [address] [place] [address], [facility] [address] [place] [address] * Vitamin B12 Assay (09/23/2023 8:24 AM CDT) Vitamin B12 Assay, S 184 180 - 914 ng/L 09/24/2023 8:16 AM CDT DT Comment: ----ADDITIONAL INFORMATION---- In patients being evaluated for vitamin B12 deficiency who have intrinsic factor blocking antibodies (IFBA), false elevations of B12 may occur due to IFBA interference thus potentially obscuring a physiological deficiency of B12. If observed B12 concentrations are discordant with clinical presentation, measurement of methylmalonic acid (MMA) should be considered. Blood (Blood, Venous) 09/23/2023 8:24 AM CDT 09/23/2023 12:54 PM CDT Rufino Lopez M.D. LAB BLOOD ADD-ON [address] [address], [facility] DT[address] [address] * MO THORACENTESIS PLEURA W IMG (09/22/2023 1:18 PM CDT) Narrative Torito Carty M.D. - 09/22/2023 1:18 PM CDT Torito Carty M.D. ? 09/22/2023 ??1:25 PM Thoracentesis Performed by: Torito Carty M.D. Authorized by: Torito Carty M.D. ?? Care team members present 1. Sanket Lopez M.D. PROCEDURE DETAILS Patient position: sitting Location: right posterior Intercostal space: 9th Puncture method: [id number] catheter Number of attempts: 1 Drainage characteristics: serous Estimated amount of fluid removed (ml): 825 ??Ultrasound image guidance used to localize target, identify at risk structures, and dynamically used to direct therapy to the target. Image(s) acquired and saved. Additional procedure details: A procedural pause was completed verifying correct patient, procedure, site, positioning, and special equipment if applicable. The patient was placed in the seated position. Ultrasound was used to locate a suitable pocket of pleural fluid. The ultrasound revealed a moderate right and tiny left hypoechoic effusion. The patient's rightside was prepped and draped in a sterile manner. 5 ml of 1% lidocaine was used anesthetize the skin, subcutaneous tract, and pleura over the rib. A small skin incision was made and then a 5.0 Pashto Yueh catheter was advanced while aspirating over the rib, along the previously anesthetized track, until a flash of fluid was seen. The catheter was then advanced over the needle and into the pleural space. 825 mL of serous fluid was removed. The procedure was terminated due to complete fluid evacuation ??Post-procedure ultrasound showed minimal residual fluid. A lung sliding sign was seen after the procedure. CONSENT Consent obtained: written (Risks, benefits and alternatives were discussed and a written Informed Consent was obtained. Please see Informed Consent form for further details.) UNIVERSAL PROTOCOL All relevant documentation and testing were reviewed and available. All required blood products, implants, devices and or special equipment were made available as applicable. Pre-procedure verification was conducted and the correct site was marked if required. A fire risk assessment was done as applicable. The procedural time-out to verify correct patient, correct side/site, and procedure was conducted prior to performing the procedure and confirmed in a procedural pause. PRE-PROCEDURE DETAILS Procedure purpose: therapeutic Indications: benign pleural effusion Appropriate hand hygiene, gown, cap, mask, protective eyewear, sterile gloves, skin preparation, sterile drape, and strict aseptic technique were utilized as applicable for the procedure. Site preparation: chlorhexidine SEDATION / ANESTHESIA Anesthesia method: local infiltration Local infiltrate type: lidocaine POST-PROCEDURE DETAILS Post-procedure chest x-ray performed: no Procedure successful: yes Complications: no apparent complications Torito Carty M.D. PROCEDURE/MINOR SURG ICAL ORDERABLES * Non-Radiology Image-Pulmonary And CC Medicine Image Exam (09/22/2023 12:55 PM CDT) Only the most recent of6 resultswithin the time period is included. 09/22/2023 12:5 4 PM CDT Narrative [facility] - 09/22/2023 1:30 PM CDT This order has been created and auto-finalized to support the import of images acquired without order. The clinical documentation to support these images can be found on the encounter that produced images. Provider Not In System IMG NON RAD IMAGI NG PROCEDURES [facility] NA * DX Chest Portable 1 View (09/22/2023 9:13 AM CDT) Only the most recent of3 resultswithin the time period is included. Anatomical Region Laterality Modality Chest, Thoracic RST LOS, Tho racic ARZ LOS, Thoracic FLA LOS N/A Digital Radiography Impressions 09/22/2023 9:19 AM CDT Since 09/18/2023, interval increase in the size of a now moderate right pleural effusion. Trace left pleural effusion. Associated bibasilar atelectasis. Cardiac silhouette. Coronary stents. Vascular calcifications. Narrative 09/22/2023 9:19 AM CDT EXAM: ??DX CHEST PORTABLE 1 VIEW Procedure Note Ivan Coppola M.D. - 09/22/2023 EXAM: DX CHEST PORTABLE 1 VIEW IMPRESSION: Since 09/18/2023, interval increase in the size of a now moderate rightpleural effusion. Trace left pleural effusion. Associated bibasilaratelectasis. Cardiac silhouette. Coronary stents. Vascularcalcifications. Rufino Lopez M.D. IMG DIAGNOSTIC IMAGI NG PROCEDURES * (ABNORMAL) GI Pathogen Panel, PCR, Feces (09/21/2023 7:50 PM CDT) Specimen Source STOOL 10:18 PM CDT DTL Campylobacter species Negative Negative 09/21/2023 10:18 PM CDT DTL C. difficile toxin Positive(A ) Negative 09/21/2023 10:18 PM CDT DTL Comment: A positive C. difficile result may reflect asymptomatic carriage or C. difficile-associated diarrhea. Plesiomonas shigelloides Negative Negative 09/21/2023 10:18 PM CDT DTL Salmonella species Negative Negative 2023 10:18 PM CDT DTL Vibrio species Negative Negative 09/21/2023 10:18 PM CDT DTL Vibrio cholerae Negative Negative 10:18 PM CDT DTL Yersinia species Negative Negative 09/21/19 24 10:18 PM CDT DTL Enteroaggregative E. coli (EAEC) Negative Negative 09/21/2023 10:18 PM CDT DTL Enteropathogenic E. coli (EPEC) Negative Negative 09/21/2023 10:18 PM CDT DTL Enterotoxigenic E. coli (ETEC) Negative Negative 09/21/2023 10:18 PM CDT DTL Shiga toxin producing E. coli Negative Negative 09/21/2023 10:18 PM CDT DTL Shigella/Enteroinvas nerissa E. coli Negative Negative 09/21/2023 10:18 PM CDT DTL Cryptosporidium species Negative Negative 09/21/2023 10:18 PM CDT DTL Cyclospora cayetanensis Negative Negative 09/21/2023 10:18 PM CDT DTL Entamoeba histolytica Negative Negative 09/21/2023 10:18 PM CDT DTL Giardia Negative Negative 09/21/2023 10:18 PM CDT DTL Adenovirus F40/41 Negative Negative 024 10:18 PM CDT DTL Astrovirus Negative Negative 09/21/2023 10:18 PM CDT DTL Norovirus GI/GII Negative Negative 09/21/19 24 10:18 PM CDT DTL Rotavirus Ag, F Negative Negative 10:18 PM CDT DTL Sapovirus Negative Negative 09/21/2023 10:18 PM CDT DTL Comment: ----ADDITIONAL INFORMATION---- This assay is performed using the FDA-cleared FilmArray GI Panel ([employer] Semi-Urgent This is a semi-urgen t result(GAXIOLA) [facility] Stool (Stool) 09/21/2023 7:5 0 PM CDT 09/21/2023 8:52 PM CDT Rufino Lopez M.D. LAB MICROBIOLOGY - G ENERAL ORDERABLES [facility] [address] [place] [address], [facility] DTL 200 [facility] [address] [place] [address] * (ABNORMAL) SPSMA Result (09/21/2023 7:18 PM CDT) [facility] Neutrophilic Segs and Bands 98(H) 50 - 75 % 09/21/2023 8:38 PM CDT [facility] Lymphocytes 2(L) 18 - 42 % 09/21/2023 8:38 PM CDT [facility] Interpretation See Comment 8:38 PM CDT [facility] Comment: Oval macrocytes and/or hypersegmented neutrophils are present: consider vitamin B12 or folate deficiency. No morphologic features of hemolysis are seen. Reviewed by: Charmaine 09/21/2023 8:38 PM CDT [facility] Blood (Blood, Venous) 09/21/2023 7:18 PM CDT 09/21/2023 7:54 PM CDT Rufino Lopez M.D. LAB BLOOD ADD-ON [facility] [address] [place] [address], [facility] [address] [place] [address] * LD (Lactate Dehydrogenase) (09/21/2023 7:18 PM CDT) Only the most recent of2 resultswithin the time period is included. [facility] LD 139 122 - 222 U/L 09/21/2023 8:18 PM CDT DT Blood (Blood, Venous) 09/21/2023 7:18 PM CDT 09/21/2023 7:57 PM CDT Rufino Lopez M.D. LAB BLOOD NON ADD-ON [facility] [address] [place] [address], [facility] DTL [facility] [address] [place] [address] * (ABNORMAL) Haptoglobin (09/21/2023 7:18 PM CDT) [facility] Haptoglobin, S 266(H) 30 - 200 mg/dL 09/23/2023 3:36 PM CDT [facility] Blood (Blood, Venous) 09/21/2023 7:18 PM CDT 09/23/2023 6:56 AM CDT Rufino Lopez M.D. LAB BLOOD ADD-ON [facility] [address] [place] [address] [facility] [address] [place] [address] * Transfuse Red Blood Cells : (09/21/2023 6:34 PM CDT) Rufino Lopez M.D. BLOOD TRANSFUSION OR DERABLES * ABO/Rh Problem, RBC (09/21/2023 1:03 PM CDT) Pathologist [facility] ABORh A Neg Not applicable 09/21/2023 2:24 PM CDT [facility] Blood 09/21/2023 1:03 PM CDT 09/21/2023 1:10 PM CDT Rufino Lopez M.D. LAB BLOOD BANK TEST ORDERABLES Performing Organization Address City/[facility] Co de Phone Number [facility] [address] [place] [address], [facility] [address] [place] [address] * Antibody Identification, Erythrocytes (09/21/2023 1:03 PM CDT) Pathologist [facility] Antibody Identification No antibody detected 09/21/2023 2:24 PM CDT DT 09/21/2023 1:03 PM CDT 09/21/2023 1:10 PM CDT Narrative [facility] - 09/21/2023 2:24 PM CDT Specimen Information: Specimen ID: [id number] Specimen Collection Start Date: 09/21/2023 ??1:03 PM Specimen Received Date: 09/21/2023 ??1:10 PM Specimen ID: [id number] Specimen Collection Start Date: 09/21/2023 ??1:03 PM Specimen Received Date: 09/21/2023 ??1:10 PM Rufino Lopez M.D. LAB BLOOD BANK TEST ORDERABLES Performing Organization Address [facility] Co de Phone Number [facility] [address] [place] [address], [facility] [address] [place] [address] * (ABNORMAL) Sedimentation Rate (09/21/2023 1:03 PM CDT) Sedimentation Rate, B 73(H) 2 - 22 mm/h 09/21/2023 2:14 PM CDT DTL Blood 09/21/2023 1:03 PM CDT 09/21/2023 1:21 PM CDT Sue Patrick M.D., M.P.H. LAB BLOOD ADD -ON Performing Organization Address City/[facility] Co de Phone Number [facility] [address] [place], [place] [address] [place] [address] * (ABNORMAL) Hepatic Function Panel (09/21/2023 9:23 AM CDT) Only the most recent of7 resultswithin the time period is included. Bilirubin, Total, S 0.3 0.0 - 1.2 mg/dL 09/21/2023 10:18 AM CDT DTL Bilirubin, Direct, S <0.2 0.0 - 0.3 mg/dL 09/21/2023 12:57 PM CDT DTL Aspartate Aminotransferase (AST), S 19 8 - 43 U/L 09/21/2023 10:18 AM CDT DTL Alanine Aminotransferase (ALT), S 24 7 - 45 U/L 09/21/2023 10:18 AM CDT DTL Alkaline Phosphatase, S 136(H) 35 - 104 U/L 09/21/2023 10:18 AM CDT DTL Albumin, S 2.8(L) 3.5 - 5.0 g/dL 09/21/2023 10:18 AM CDT DTL Protein, Total, S 6.2(L) 6.3 - 7.9 g/dL 09/21/2023 10:18 AM CDT DTL Blood (Blood, Venous) 09/21/2023 9:23 AM CDT 09/21/2023 10:02 AM CDT Sue Patrick M.D., M.P.H. LAB BLOOD ADD -ON Performing Organization Address City/[facility]/ZIP Co de Phone Number [facility] [address] [place] [address], [facility] [place] [address] [place] [address] * (ABNORMAL) Cystatin C with Estimated GFR (09/21/2023 9:23 AM CDT) Only the most recent of6 resultswithin the time period is included. Pathologist [facility] eGFR by Cystatin C 11(L) >60 mL/min/BSA 09/21/2023 2:59 PM CDT DTL Comment: Estimated GFR calculated using the CKD-EPI Cystatin C (2012) equation. ----ADDITIONAL INFORMATION---- Cystatin C-based eGFR may differ substantially from creatinine- based eGFR in patients with abnormal muscle mass or acutely changing renal function. ??Please interpret together with relevant clinical features. On 09/29/2020 the cystatin C assay method changed. Cystatin C eGFR results > 50 ml/min/1.73m2 are approximately 10% lower with the new assay. Cystatin C 4.08(H) 0.67 - 1.21 mg/L 09/21/2023 2:59 PM CDT DTL Blood (Blood, Venous) 09/21/2023 9:23 AM CDT 09/21/2023 1:47 PM CDT Rufino Lopez M.D. LAB BLOOD ADD-ON [facility] [address] [place] [address], [facility] DTL [facility] [address] [place] [address] * (ABNORMAL) NT-Pro B-Type Natriuretic Peptide (BNP) (09/21/2023 9:23 AM CDT) NT-Pro BNP 69041(H) <=540 pg/mL 09/21/2023 5:34 PM CDT DTL Comment: NT-proBNP values less than 300 pg/mL have a 99% negative predictive value for excluding acute congestive heart failure. A cutoff of 1200 pg/mL for patients with an eGFR<60 yields a diagnostic sensitivity and specificity of 89% and 72% for acute congestive heart failure. A diagnostic NT-proBNP cutoff of 900 pg/mL has been suggested in adults 50-75 years of age in the absence of renal failure. Blood (Blood, Venous) 09/21/2023 9:23 AM CDT 09/21/2023 3:59 PM CDT Rufino Lopez M.D. LAB BLOOD ADD-ON [facility] [address] [place] [address], [facility] DTL [facility] [address] [place] [address] * US Kidney Transplant Left with Doppler (09/20/2023 1:00 PM CDT) Anatomical Region Laterality Modality Abdomen, Pelvis, Renal, Ultr asound RST LOS, Ultrasound ARZ LOS, Ultrasound FLA LOS Left Ultrasound Impressions 09/20/2023 2:06 PM CDT Increasing RI measurements throughout the transplant kidney. Otherwise stable appearance of the left lower quadrant renal transplant with widely patent vasculature Narrative 09/20/2023 2:06 PM CDT EXAM: US KIDNEY TRANSPLANT LEFT WITH DOPPLER Exam performed with color and spectral Doppler analysis. COMPARISON: Abdominopelvic CT 09/18/2023, transplant kidney ultrasound 08/21/2023 FINDINGS: Transplant date: 06/21/2016 ?? Location: Left lower quadrant. Dinero scale data Transplant renal length: 10.3 cm. Parenchymal echogenicity: Normal. Renal mass: None detected. Hydronephrosis: None. Peritransplant fluid collection: None. Doppler data Intrarenal RI: 0.77 RI upper 0.82 RI mid 0.78 RI lower Iliac artery velocity: 163 cm/s (above anastomosis) 165 cm/s (near anastomosis) Renal artery velocity: 98 cm/s anast 132 cm/s prox (anastomosis) 72 cm/s mid 71 cm/s distal Renal artery: Normal. Renal vein patency: Patent. Ipsilateral common femoral artery: Patent. Normal triphasic waveform. 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 Decompressed urinary bladder. Additional comments: Increasing RI measurements throughout the kidney, on the prior exam measured at the lower 0.7, compared to RI of 0.82 today's exam. Procedure Note Sanket Soares M.D. - 09/20/2023 EXAM: US KIDNEY TRANSPLANT LEFT WITH DOPPLER Exam performed with color and spectral Doppler analysis. COMPARISON: Abdominopelvic CT 09/18/2023, transplant kidney ultrasound08/21/2023 FINDINGS: Transplant date: 06/21/2016 Location: Left lower quadrant. Dinero scale data Transplant renal length: 10.3 cm. Parenchymal echogenicity: Normal. Renal mass: None detected. Hydronephrosis: None. Peritransplant fluid collection: None. Doppler data Intrarenal RI: 0.77 RI upper 0.82 RI mid 0.78 RI lower Iliac artery velocity: 163 cm/s (above anastomosis) 165 cm/s (near anastomosis) Renal artery velocity: 98 cm/s anast 132 cm/s prox (anastomosis) 72 cm/s mid 71 cm/s distal Renal artery: Normal. Renal vein patency: Patent. Ipsilateral common femoral artery: Patent. Normal triphasic waveform.Severe atheromatous plaque with a known occlusion of the ipsilateralsuperficial femoral artery. Decompressed urinary bladder. Additional comments: Increasing RI measurements throughout the kidney, onthe prior exam measured at the lower 0.7, compared to RI of 0.82 today'sexam. IMPRESSION: Increasing RI measurements throughout the transplant kidney. Otherwisestable appearance of the left lower quadrant renal transplant with widelypatent vasculature Sue Patrick M.D., M.P.H. IMG US PROCED URES * Leg, right-Nursing Image Exam (09/20/2023 9:28 AM CDT) Only the most recent of5 resultswithin the time period is included. 09/20/2023 9:25 AM CDT Narrative [facility] - 09/20/2023 9:28 AM CDT This order has been created and auto-finalized to support the import of images acquired without order. The clinical documentation to support these images can be found on the encounter that produced images. Provider Not In System IMG NON RAD IMAGI NG PROCEDURES IINV NA * (ABNORMAL) Phosphorus Inorganic (09/20/2023 9:28 AM CDT) Phosphorus (Inorganic), S 5.3(H) 2.5 - 4.5 mg/dL 09/20/2023 2:06 PM CDT DTL Blood 09/20/2023 9:28 AM CDT 09/20/2023 1:22 PM CDT Sue Patrick M.D., M.P.H. LAB BLOOD ADD -ON Performing Organization Address City/[facility]/ZIP Co de Phone Number [facility] [address] [place] [address], [facility] [place] [address] [place] [address] * US Gallbladder and or Biliary Ducts (09/19/2023 11:45 PM CDT) Anatomical Region Laterality Modality Abdomen, Ultrasound RST LOS, Ultrasound ARZ LOS, Ultrasound FLA LOS N/A Ultrasound Impressions 09/20/2023 7:01 AM CDT 1. Cholecystostomy tube within a decompressed poorly defined gallbladder with mild mural thickening and pericholecystic fluid. 2. Dilated aorta measuring up to 5 cm mural thrombus, as visualized on CT abdomen pelvis 09/18/2023. Narrative 09/20/2023 7:01 AM CDT EXAM: US GALLBLADDER AND OR BILIARY DUCTS COMPARISON: Gallbladder ultrasound 08/20/2023 FINDINGS: Gallbladder: Cholecystostomy tube in place within a decompressed, poorly defined gallbladder. Mild mural thickening measuring up to 4 mm along with pericholecystic fluid and ascites. Negative sonographic Isaac sign. Intrahepatic ducts: Not dilated. Common duct: Not dilated. Aorta: Dilated infrarenal abdominal aorta measuring up to 5 cm in greatest diameter with mural thrombus, as visualized on CT abdomen pelvis yesterday, 09/18/2023. Procedure Note Jt Elise M.D. - 09/20/2023 EXAM: US GALLBLADDER AND OR BILIARY DUCTS COMPARISON: Gallbladder ultrasound 08/20/2023 FINDINGS: Gallbladder: Cholecystostomy tube in place within a decompressed, poorlydefined gallbladder. Mild mural thickening measuring up to 4 mm along withpericholecystic fluid and ascites. Negative sonographic Isaac sign. Intrahepatic ducts: Not dilated. Common duct: Not dilated. Aorta: Dilated infrarenal abdominal aorta measuring up to 5 cm in greatestdiameter with mural thrombus, as visualized on CT abdomen pelvisyesterday, 09/18/2023. IMPRESSION: 1. Cholecystostomy tube within a decompressed poorly defined gallbladderwith mild mural thickening and pericholecystic fluid. 2. Dilated aorta measuring up to 5 cm mural thrombus, as visualized on CTabdomen pelvis 09/18/2023. Rufino Lopez M.D. IM US PROCEDURES * (ABNORMAL) Troponin T, 2h/6h, 5th Gen (09/19/2023 6:09 PM CDT) Only the most recent of2 resultswithin the time period is included. Troponin T, 2 hr, 5th gen 92(H) <=10 ng/L 09/19/2023 6:32 PM CDT STMA 2H Delta % -13 % 09/19/2023 6:32 PM CDT STMA 2H Delta Interp Not Changing 09/19/2023 6:32 PM CDT STMA Troponin T, 6 hr, 5th gen 82(H) <=10 ng/L 09/19/2023 10:40 PM CDT STMA 6H Delta % -23(A) % 09/19/2023 10:40 PM CDT STMA 6H Delta Interp Changing(A) 09/19/2023 10:40 PM CDT [facility] Comment:Evaluate for acute m yocardial injury Blood (Blood, Venous) 09/19/2023 6:09 PM CDT 09/19/2023 6:12 PM CDT Narrative [facility] - 09/19/2023 10:40 PM CDT Specimen Information: Specimen ID: [id number] Specimen Type: Blood Specimen Collection Start Date: 09/19/2023 ??6:09 PM Specimen Received Date: 09/19/2023 ??6:12 PM Specimen ID: [id number] Specimen Type: Blood Specimen Collection Start Date: 09/19/2023 10:16 PM Specimen Received Date: 09/19/2023 10:24 PM Sakina Anderson APRN, C.N.P., D.N.P. LAB BLOOD TROPONIN [facility] [address] [place] [address] * (TTE) 2D LIMITED WITH COLOR AND DOPPLER (09/19/2023 5:22 PM CDT) Ejection Fraction 65 MC CV EIMS LV End-Diastolic Diameter 50 MC CV EIMS LV End-Systolic Diameter 31 MC CV EIMS MV E Velocity 0.7 MC CV EIMS MV A Velocity 0.7 MC CV EIMS MV E/A 1 MC CV EIMS MV e' Velocity Medial 0.04 MC CV EIMS MV e' Velocity Lateral 0.07 MC CV EIMS MV E/e' Medial 17.5 MC CV EIMS MV E/e' Lateral 10 MC CV EIMS Left ventricular stroke volume index 52 MC CV EIMS Cardiac Output 3.2 MC CV EIMS Cardiac Index 2.3 MC CV EIMS TR Vmax 2.6 MC CV EIMS RA Pressure 5 MC CV EIMS RV Systolic Pressure 32 MC CV EIMS AV mean gradient 7 MC CV EIMS Aortic valve area 1.77 MC CV EIMS Aortic Valve Dimensionless Index 0.51 MC CV EIMS Aortic Valve Systolic Peak Velocity 2 MC CV EIMS Anatomical Region Laterality Modality Echocardiography 09/19/2023 4:34 PM CDT Impressions 09/19/2023 5:58 PM CDT Echo performed at the patient's bedside. The scope of this echocardiogram was limited to assessment of constrictive pericarditis. Recommend a future complete echocardiogram if clinically indicated. No evidence of constrictive pericarditis. LEFT VENTRICLE:Mildly enlarged left ventricular chamber size. Calculated 2-D linear left ventricular ejection fraction 65%. No regional wall motion abnormalities. RIGHT VENTRICLE:Normal right ventricular chamber size. Normal right ventricular systolic function. Estimated right ventricular systolic pressure 32 mmHg (systolic blood pressure 115 mmHg). ATRIA:Enlarged left atrial size by visual estimate. Normal right atrial size by visual estimate. CARDIAC VALVES:Mildly calcified aortic valve. Trivial aortic valve regurgitation. Thickened mitral valve. Mildly calcified mitral annulus. Mild mitral valve regurgitation. Mild-moderate tricuspid valve regurgitation. OTHER ECHO FINDINGS:Borderline enlarged inferior vena cava size with normal inspiratory collapse (>50%). Hepatic vein dilatation. No intracardiac mass or thrombus, but the left atrial appendage cannot be visualized adequately with transthoracic echo to exclude thrombus in this location. Small circumferential pericardial effusion. For the complete report, see the Order-Level Documents. Narrative 09/19/2023 5:58 PM CDT For the complete report, see the Order-Level Documents. Hemodynamics Heart Rate: 45 BPM Blood Pressure: 115 / 52 mmHg ECG: Sinus rhythm, Marked bradycardia Final Impressions 1. No evidence of constrictive pericarditis. 2. Mildly enlarged left ventricular chamber size, no regional wall motion abnormalities, calculated 2-D linear ejection fraction 65%. 3. Normal right ventricular chamber size, normal systolic function, estimated right ventricular systolic pressure 32 mmHg (systolic blood pressure 115 mmHg). 4. Mild-moderate tricuspid valve regurgitation. 5. Small circumferential pericardial effusion. 6. Borderline enlarged inferior vena cava size with normal inspiratory collapse (>50%). 7. Compared to the report of 08/27/2023 the following changes have occurred: small circumferential pericardial effusion now present, and left-sided pleural effusion is resolved. ??Side by side comparison of images performed. Procedure Note Christine Merida M.B.B.S., Ph.D. - 09/19/2023 For the complete report, see the Order-Level Documents. Hemodynamics Heart Rate: 45 BPM Blood Pressure: 115 / 52 mmHg ECG: Sinus rhythm, Marked bradycardia Final Impressions 1. No evidence of constrictive pericarditis. 2. Mildly enlarged left ventricular chamber size, no regional wall motionabnormalities, calculated 2-D linear ejection fraction 65%. 3. Normal right ventricular chamber size, normal systolic function,estimated right ventricular systolic pressure 32 mmHg (systolic bloodpressure 115 mmHg). 4. Mild-moderate tricuspid valve regurgitation. 5. Small circumferential pericardial effusion. 6. Borderline enlarged inferior vena cava size with normal inspiratorycollapse (>50%). 7. Compared to the report of 08/27/2023 the following changes haveoccurred: small circumferential pericardial effusion now present, andleft-sided pleural effusion is resolved. Side by side comparison ofimages performed. Findings Echo performed at the patient's bedside. The scope of this echocardiogramwas limited to assessment of constrictive pericarditis. Recommend a futurecomplete echocardiogram if clinically indicated. No evidence ofconstrictive pericarditis. LEFT VENTRICLE:Mildly enlarged left ventricular chamber size. Calculated2-D linear left ventricular ejection fraction 65%. No regional wall motionabnormalities. RIGHT VENTRICLE:Normal right ventricular chamber size. Normal rightventricular systolic function. Estimated right ventricular systolicpressure 32 mmHg (systolic blood pressure 115 mmHg). ATRIA:Enlarged left atrial size by visual estimate. Normal right atrialsize by visual estimate. CARDIAC VALVES:Mildly calcified aortic valve. Trivial aortic valveregurgitation. Thickened mitral valve. Mildly calcified mitral annulus.Mild mitral valve regurgitation. Mild-moderate tricuspid valveregurgitation. OTHER ECHO FINDINGS:Borderline enlarged inferior vena cava size withnormal inspiratory collapse (>50%). Hepatic vein dilatation. Nointracardiac mass or thrombus, but the left atrial appendage cannot bevisualized adequately with transthoracic echo to exclude thrombus in thislocation. Small circumferential pericardial effusion. For the complete report, see the Order-Level Documents. Sakina Anderson APRN, C.N.P., D.N.P. CV E CHO PROCEDURES * Lactate, B (09/19/2023 3:59 PM CDT) Only the most recent of2 resultswithin the time period is included. Pathologist [facility] Lactate, B 0.6 0.5 - 2.2 mmol/L 09/19/2023 4:07 PM CDT [facility] Blood (Blood, Venous) 09/19/2023 3:59 PM CDT 09/19/2023 4:05 PM CDT Scotty Sauer APRN.N.P., D.N.P. LAB BLOOD NON ADD-ON Performing Organization Address City/[facility] Co de Phone Number [facility] [address] [place] [address] * (ABNORMAL) Troponin T, Baseline, 5th gen (09/19/2023 3:59 PM CDT) Only the most recent of2 resultswithin the time period is included. [facility] Troponin T, Baseline, 5th gen 106(H) <=10 ng/L 09/19/2023 4:22 PM CDT [facility] Comment:Consider acute myoca rdial injury Blood (Blood, Venous) 09/19/2023 3:59 PM CDT 09/19/2023 4:05 PM CDT Scotty Sauer APRN.N.P., D.N.P. LAB BLOOD TROPONIN Performing Organization Address [facility] Co de Phone Number [facility] [address] [place] [address] * (ABNORMAL) Prothrombin Time (PT) (09/19/2023 3:59 PM CDT) [facility] Prothrombin Time, P 14.5(H) 9.4 - 12.5 sec 09/19/2023 4:13 PM CDT [facility] INR 1.3 0.9 - 1.1 09/19/2023 4:13 PM CDT [facility] Comment: ----ADDITIONAL INFORMATION---- Standard intensity warfarin therapeutic range: 2.0 to 3.0 ?? High intensity warfarin therapeutic range: 2.5 to 3.5 Blood (Blood, Venous) 09/19/2023 3:59 PM CDT 09/19/2023 4:05 PM CDT Radha Sauer APRNNSanchez., D.N.P. LAB BLOOD ADD-ON Performing Organization Address City/[facility] Co de Phone Number [facility] [address] [place] [address], [facility] [address] [place] [address] * Lipase (09/19/2023 3:59 PM CDT) Only the most recent of3 resultswithin the time period is included. Lipase, S 29 13 - 60 U/L 09/19/2023 5: 40 PM CDT DTL Blood 09/19/2023 3:59 PM CDT 09/19/2023 5:08 PM CDT Radha Sauer APRNN.P., D.N.P. LAB BLOOD ADD-ON Performing Organization Address City/[facility] de Phone Number [facility] [address] [place] [address], [facility] [address] [place] [address] * ECG 12 Lead (09/19/2023 3:12 PM CDT) Only the most recent of3 resultswithin the time period is included. Ventricular Rate ECG/Min 55 BPM MUSE MO Interval 162 ms MUSE QRSD Interval 104 ms MUSE QT Interval 488 ms MUSE QTC Interval 466 ms MUSE P [facility] [place] [facility] 107 degrees MUSE R [place] 81 degrees MUSE T Wave [place] [facility] [place] 269 degrees MUSE 09/19/2023 3:12 PM CDT 09/19/2023 3:25 PM CDT Impressions MUSE - 09/19/2023 3:25 PM CDT Sinus bradycardia Low anterior forces Moderate voltage criteria for LVH, may be normal variant ST and T wave abnormality, consider anterolateral ischemia T wave abnormality, consider inferior ischemia When compared with ECG of 18-Sep-2023 11:39, T wave inversion more evident in Inferior leads Anterior infarct have decreased Reviewed by ANA Velazquez Narrative Procedure Note Oscar Maguire M.D. - 09/19/2023 IMPRESSION: Sinus bradycardia Low anterior forces Moderate voltage criteria for LVH, may be normal variant ST and T wave abnormality, consider anterolateral ischemia T wave abnormality, consider inferior ischemia When compared with ECG of 18-Sep-2023 11:39, T wave inversion more evident in Inferior leads Anterior infarct have decreased Reviewed by ANA Velazquez Sakina Anderson APRN, C.N.P., D.N.P. ECG ORDERABLES Performing Organization Address City/[facility]/ZIP Co de Phone Number MUSE NA * Dipstick, Urine (09/18/2023 3:59 PM CDT) Only the most recent of2 resultswithin the time period is included. Hemoglobin, QL, U Negative Negative 09/18/2023 5:15 PM CDT DTL Leukocyte Esterase, U Negative Negative 09/18/2023 5:15 PM CDT DTL Nitrite, U Negative Negative 09/18/2023 5:15 PM CDT DTL Ketone, U Negative Negative mg/dL 09/18/2023 5:15 PM CDT DTL Glucose, U Negative Negative mg/dL 09/18/2023 5:15 PM CDT DTL Urine 09/18/2023 3:59 PM CDT 09/18/2023 4:34 PM CDT Spring Mccormack M.D. LAB URINE ORDERAB LES [facility] [address] [place] [address], [place] DTL [facility] [address] [place] [address] * Sodium, Random, Urine (09/18/2023 3:59 PM CDT) Sodium, Random, U 15 mmol/L 09/19/2023 10:12 PM CDT DTL Comment: ----REFERENCE VALUE---- Random urine sodium may be interpreted in conjunction with serum sodium, using both values to calculate fractional excretion of sodium. Urine 09/18/2023 3:59 PM CDT 09/19/2023 9:19 PM CDT Rufino Lopez M.D. LAB URINE ORDERABLES Performing Organization Address City/[facility]/ZIP Co de Phone Number [facility] [address] [place], [place] [id number] [place] [address] * Microscopic Automated (09/18/2023 3:59 PM CDT) Pathologist [facility] Microscopy Normal 09/18/2023 5:15 PM CDT DTL RBC None Seen <3 /hpf 09/18/2023 5:15 PM CDT DTL WBC None Seen /hpf 09/18/2023 5:15 PM CDT DTL Comment: ----REFERENCE VALUE---- <4 ??(Males) <11 (Females) Urine 09/18/2023 3:59 PM CDT 09/18/2023 4:34 PM CDT Spring Mccormack M.D. LAB URINE ORDERAB LES [facility] [address] [place] [address], [facility] [place] [address] [place] [address] * pH, Urine (09/18/2023 3:59 PM CDT) Only the most recent of2 resultswithin the time period is included. pH, U 5.2 4.5 - 8.0 09/18/2023 5:0 5 PM CDT DTL Urine 09/18/2023 3:59 PM CDT 09/18/2023 4:34 PM CDT Spring Mccormack M.D. LAB URINE ORDERAB LES Performing Organization Address City/[facility]/ZIP Co de Phone Number [facility] [address] [place] [address], [facility] [address] [place] [address] * Osmolality, Urine (09/18/2023 3:59 PM CDT) Only the most recent of2 resultswithin the time period is included. Osmolality, U 308 150 - 1150 mOsm/kg 09/18/2023 5:05 PM CDT DT Urine 09/18/2023 3:59 PM CDT 09/18/2023 4:34 PM CDT Spring Mccormack M.D. LAB URINE ORDERAB LES Performing Organization Address City/[facility]/ZIP Co de Phone Number [facility] [address] [place], [place] [address] [address] [place] [address] * Creatinine, Random, Urine (09/18/2023 3:59 PM CDT) Creatinine, Random, U 61 16 - 326 mg/dL 09/19/2023 10:03 PM CDT DT Urine (Urine, Midstream) 09/18/2023 3:59 PM CDT 09/19/2023 9:19 PM CDT Rufino Lopez M.D. LAB URINE ORDERABLES Performing Organization Address City/[facility]/ZIP Co de Phone Number [facility] [address] [place], [place] [phone] [place] [address] [address] [place] [address] * (ABNORMAL) Urinalysis, with Microscopic: Urine, Catheter (09/18/2023 3:59 PM CDT) Only the most recent of2 resultswithin the time period is included. Source Urine, Urine, Catheter 09/18/2023 4:34 PM CDT DTL Color, U Yellow 09/18/2023 4:34 PM CDT DTL Clarity, U Clear 09/18/2023 4:34 PM CDT DTL Protein, U 11 <26 mg/dL 09/18/2023 5:23 PM CDT DTL Protein/Osmola lity 0.36 <0.42 ratio 09/18/2023 5:23 PM CDT DTL Predicted 24 HR Protein, U 263(H) <229 mg/24 h 09/18/2023 5:23 PM CDT DTL Predicted Range 65-1063 mg/24 h 09/18/2023 5:23 PM CDT DTL Urine (Urine, Catheter) 09/18/2023 3:59 PM CDT 09/18/2023 4:34 PM CDT Spring Mccormack M.D. [place] [address], [place] [address] * US Lower Extremity Veins Left (09/18/2023 3:08 PM CDT) Anatomical Region Laterality Modality Lower Extremity, Ultrasound RST LOS, Ultrasound ARZ LOS, Ultrasound FLA LOS Left Ultrasound Impressions 09/18/2023 3:11 PM CDT 1. Negative for acute DVT. 2. Incidentally noted extensive calcified arterial atheromatous disease with occlusion or near occlusion of the left SFA. Narrative 09/18/2023 3:11 PM CDT EXAM: US LOWER EXTREMITY VEINS LEFT Exam performed with color and spectral Doppler analysis. COMPARISON: None. FINDINGS: LEFT: Common Femoral Vein: Negative. Profunda Femoral Vein: Negative. Femoral Vein: Negative. Popliteal Vein: Negative. Gastrocnemius Veins: Negative where seen. Soleal Veins: Negative where seen. Posterior Tibial Veins: Negative where seen. Peroneal Veins: Negative where seen. Great Saphenous Vein: Negative where seen. Small Saphenous Vein: Not evaluated. Popliteal Fossa: Negative. Other: Incidentally noted is extensive calcified arterial atheromatous disease with occlusion or near occlusion of the left SFA with reconstitution distally. Information on venous thrombosis and management can be found on the [employer] site. Link [email or web address] Procedure Note Vicente Byrd M.D. - 09/18/2023 EXAM: US LOWER EXTREMITY VEINS LEFT Exam performed with color and spectral Doppler analysis. COMPARISON: None. FINDINGS: LEFT: Common Femoral Vein: Negative. Profunda Femoral Vein: Negative. Femoral Vein: Negative. Popliteal Vein: Negative. Gastrocnemius Veins: Negative where seen. Soleal Veins: Negative where seen. Posterior Tibial Veins: Negative where seen. Peroneal Veins: Negative where seen. Great Saphenous Vein: Negative where seen. Small Saphenous Vein: Not evaluated. Popliteal Fossa: Negative. Other: Incidentally noted is extensive calcified arterial atheromatousdisease with occlusion or near occlusion of the left SFA withreconstitution distally. Information on venous thrombosis and management can be found on theSearch[employer] site. [email or web address] IMPRESSION: 1. Negative for acute DVT. 2. 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 John Gustafson M.D. IMG US PROCEDURES * CT Abdomen Pelvis with IV Contrast (09/18/2023 1:25 PM CDT) Anatomical Region Laterality Modality Abdomen, Pelvis, Abdominal R ST LOS, Abdominal ARZ LOS, Abdominal FLA LOS N/A Computed Tomograp hy, Computed Tomography 09/18/2023 1:17 PM CDT Impressions 09/18/2023 1:38 PM CDT 1. Subhepatic cholecystostomy tube in expected position. 2. No definite acute intra-abdominal or intrapelvic process. 3. Small free pelvic fluid. This is nonspecific but may be secondary to underlying renal failure. 4. Thickened and slightly hyperdense pericardium with diminished pericardial fluid since 08/19/2023. Consider underlying pericarditis. 5. Apparent filling defect left external iliac and left femoral veins is almost certainly artifactual, though US Dopplers are recommended to exclude the possibility of deep vein thrombosis. Findings discussed with Dr Gustafson at 1335 hour on 09/18/23. Narrative 09/18/2023 1:38 PM CDT EXAM: ??CT ABDOMEN PELVIS WITH IV CONTRAST COMPARISON: ??CT abdomen pelvis dated 08/28/2023 and 08/19/2023. FINDINGS: ??Heart is upper limits of normal. Small pericardial effusion with mildly increased density. Volume pericardial effusion is diminished since 08/19/2023. Small bilateral pleural effusions. Mild bibasilar lung atelectasis. Small hiatal hernia. Severe aortic and major branch vessel calcifications. 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 Filling defect of the left external iliac vein extending to the slightly thickened left femoral vein favors flow void given the early phase of contrast. Liver normal. Subhepatic cholecystostomy tube. Gallbladder decompressed. Small to moderate left hepatic lobe biliary gas in keeping with indwelling catheter. Gastrostomy tube. Small bowel and colon decompressed. Left pelvic transplant kidney. No hydronephrosis. Normal enhancement. Small free pelvic fluid. No free intraperitoneal fluid or gas. Severe sigmoid diverticulosis. Bladder distended with urine. No suspicious osseous lytic or blastic lesion. Procedure Note Ramirez Alan M.D. - 09/18/2023 EXAM: CT ABDOMEN PELVIS WITH IV CONTRAST COMPARISON: CT abdomen pelvis dated 08/28/2023 and 08/19/2023. FINDINGS: Heart is upper limits of normal. Small pericardial effusionwith mildly increased density. Volume pericardial effusion is diminishedsince 08/19/2023. Small bilateral pleural effusions. Mild bibasilar lungatelectasis. Small hiatal hernia. Severe aortic and major branch vessel calcifications. Aneurysmaldilatation of the abdominal aorta is unchanged. Filling defect of the leftexternal iliac vein extending to the slightly thickened left femoral veinfavors flow void given the early phase of contrast. Liver normal. Subhepatic cholecystostomy tube. Gallbladder decompressed.Small to moderate left hepatic lobe biliary gas in keeping with indwellingcatheter. Gastrostomy tube. Small bowel and colon decompressed. Leftpelvic transplant kidney. No hydronephrosis. Normal enhancement. Small free pelvic fluid. No free intraperitoneal fluid or gas. Severesigmoid diverticulosis. Bladder distended with urine. No suspicious osseous lytic or blasticlesion. IMPRESSION: 1. Subhepatic cholecystostomy tube in expected position. 2. No definite acute intra-abdominal or intrapelvic process. 3. Small free pelvic fluid. This is nonspecific but may be secondary tounderlying renal failure. 4. Thickened and slightly hyperdense pericardium with diminishedpericardial fluid since 08/19/2023. Consider underlying pericarditis. 5. Apparent filling defect left external iliac and left femoral veins isalmost certainly artifactual, though US Dopplers are recommended toexclude the possibility of deep vein thrombosis. Findings discussed with Dr Gustafson at 1335 hour on 09/18/23. John Gustafson M.D. IMG CT PROCEDURES * DX Chest AP or PA and Lateral 2 Views (09/18/2023 1:03 PM CDT) Anatomical Region Laterality Modality Chest, Thoracic RST LOS, Tho racic ARZ LOS, Thoracic FLA LOS N/A Digital Radiography Impressions 09/18/2023 1:24 PM CDT Since 08/24/2023, decreased size of the now trace left pleural effusion with associated left basilar atelectasis. Resolution of the right apical pneumothorax. Remainder is not significantly changed. Trace right pleural effusion. Biapical scarring. Enlarged cardiac silhouette, likely a combination of cardiomegaly and pericardial effusion which was better seen on CT 08/28/2023. Vascular calcifications. Coronary artery stents. Demineralization. Degenerative changes of the skeleton. Narrative 09/18/2023 1:24 PM CDT EXAM: ??DX CHEST AP OR PA AND LATERAL 2 VIEWS Procedure Note Raphael Maya M.D. - 09/18/2023 EXAM: DX CHEST AP OR PA AND LATERAL 2 VIEWS IMPRESSION: Since 08/24/2023, decreased size of the now trace left pleural effusionwith associated left basilar atelectasis. Resolution of the right apicalpneumothorax. Remainder is not significantly changed. Trace right pleuraleffusion. Biapical scarring. Enlarged cardiac silhouette, likely a combination ofcardiomegaly and pericardial effusion which was better seen on CT08/28/2023. Vascular calcifications. Coronary artery stents.Demineralization. Degenerative changes of the skeleton. John Gustafson M.D. IMG DIAGNOSTIC IMAGI NG PROCEDURES * Bacteria / Melissa Culture, Blood # 2 (09/18/2023 12:07 PM CDT) Only the most recent of2 resultswithin the time period is included. [facility] Bacteria/Marcia da Culture, Blood No growth after 5 days of incubation. 09/23/2023 1:02 PM CDT DTL Blood (Blood, Peripheral Draw) 09/18/2023 12:07 PM CDT 09/18/2023 12:21 PM CDT Comment:Specimen Source Site : Blood Narrative [facility] - 09/23/2023 1:02 PM CDT Received Bactec Peds bottle John Gustafson M.D. LAB MICROBIOLOGY - [facility] ORDERABLES [facility] [address] [place] [address], [facility] [place] [address] [place] [address] * ECG AMBULATORY REAL TIME CARDIAC MONITORING - [facility] (09/12/2023 12:28 PM CDT) Pathologist [facility] Min Heart Rate 38 bpm INFOBION[facility] MOME Max Heart Rate 65 bpm INFOBION[facility] MOME Mean Heart Rate 47 bpm INFOBIONIC MOME VE Total Beats <100 count INFOBIONIC MOME VE Percent Beats 0% percent INFOBIONIC MOME SVE Total Beats 1396 count INFOBIONIC MOME SVE Percent Beats <1% percent INFOBIONIC MOME Holter Pauses 0 count INFOBIONIC MOME AF Count 0 count INFOBIONIC MOME AF Duration 0 sec duration INFOBIONIC MOME AF [place] 0% percent INFOBIONIC MOME VT Runs 0 count INFOBIONIC MOME SVT Runs 0 count INFOBIONIC MOME Symptom Count 0 count INFOBIONIC MOME 08/30/2023 3:29 PM CDT Narrative HITESH CHARLES - 09/13/2023 2:20 PM CDT 1. The patient was monitored from 08/30/2023 to 09/09/2023 with a total monitoring time of 8 days 16 hr 44 min. The baseline rhythm was sinus. The heart rate varied from 38 bpm to 65 bpm. The average heart rate was 47 bpm. 2. There were <100 PVCs seen during the monitoring period with a PVC burden of <1%. 3. There were 1,396 PACs seen singly, aberrantly, paired and in bigeminy with a PAC burden of <1%. There were junctional escape beats seen singly and paired. 4. The patient did not record any symptomatic events. Senior Net Programmer: ANA Bhagat / ANA Kumari Procedure Note Rufino Jackson M.D., Ph.D. - 09/13/2023 1. The patient was monitored from 08/30/2023 to 09/09/2023 with a totalmonitoring time of 8 days 16 hr 44 min. The baseline rhythm was sinus. Theheart rate varied from 38 bpm to 65 bpm. The average heart rate was 47bpm. 2. There were <100 PVCs seen during the monitoring period with a PVCburden of <1%. 3. There were 1,396 PACs seen singly, aberrantly, paired and in bigeminywith a PAC burden of <1%. There were junctional escape beats seen singlyand paired. 4. The patient did not record any symptomatic events. Senior Net Programmer: ANA Bhagat / ANA Kumari Gabrielle Hernandez M.D. CV CARDIAC SERVICES PROCEDURES HITESH CHARLES NA * (ABNORMAL) Hemoglobin (08/30/2023 4:11 PM CDT) Only the most recent of2 resultswithin the time period is included. Hemoglobin 9.3(L) 11.6 - 15.0 g/dL 08/30/2023 4:53 PM CDT DTL Blood (Blood, Venous) 08/30/2023 4:11 PM CDT 08/30/2023 4:41 PM CDT Gabrielle Hernandez M.D. LAB BLOOD ADD-ON Performing Organization Address City/[facility] Co de Phone Number [facility] [address] [place] [address], [facility] DTL [facility] [address] [place] [address] * Abdomen-Internal Medicine Image Exam (08/30/2023 11:50 AM CDT) Only the most recent of2 resultswithin the time period is included. 08/30/2023 11:4 8 AM CDT Narrative [facility] - 08/30/2023 11:50 AM CDT This order has been created and auto-finalized to support the import of images acquired without order. The clinical documentation to support these images can be found on the encounter that produced images. Provider Not In System IMG NON RAD IMAGI NG PROCEDURES Performing Organization Address [facility] de Phone Number [facility] NA * (ABNORMAL) Renal Function Panel (08/30/2023 7:42 AM CDT) Only the most recent of9 resultswithin the time period is included. Potassium, S 4.5 3.6 - 5.2 mmol/L 08/30/2023 8:47 AM CDT DTL Sodium, S 134(L) 135 - 145 mmol/L 08/30/2023 8:47 AM CDT DTL Chloride, S 94(L) 98 - 107 mmol/L 08/30/2023 8:47 AM CDT DTL Bicarbonate, S 31(H) 22 - 29 mmol/L 08/30/2023 8:47 AM CDT DTL Anion Gap 9 7 - 15 08/30/2023 8:47 AM CDT DTL BUN (Blood Urea Nitrogen), S 36(H) 6 - 21 mg/dL 08/30/2023 8:47 AM CDT DTL Creatinine 1.58(H) 0.59 - 1.04 mg/dL 08/30/2023 8:47 AM CDT DTL Estimated GFR (eGFR) 35(L) >=60 mL/min/BSA 08/30/2023 8:47 AM CDT DTL Comment: Estimated GFR calculated using the 2020 CKD_EPI creatinine equation. Calcium, Total, S 9.2 8.8 - 10.2 mg/dL 08/30/2023 8:47 AM CDT DTL Glucose, S 93 70 - 140 mg/dL 08/30/2023 8:47 AM CDT DTL Albumin, S 3.1(L) 3.5 - 5.0 g/dL 08/30/2023 8:47 AM CDT DTL Phosphorus (Inorganic), S 3.8 2.5 - 4.5 mg/dL 08/30/2023 8:47 AM CDT DTL Blood (Blood, Venous) 08/30/2023 7:42 AM CDT 08/30/2023 8:28 AM CDT Gabrielle Hernandez M.D. LAB BLOOD ADD-ON [address] [address], [facility] [place] [address] * MO THORACENTESIS PLEURA W IMG (08/29/2023 3:27 PM CDT) Narrative Nery Johnson M.D., M.H.P.E. - 08/29/2023 3:27 PM CDT Nery Johnson M.D., M.H.P.E. ? 08/29/2023 ??3:40 PM Thoracentesis Performed by: Estephanie Lewis M.D. Authorized by: Nery Johnson M.D., M.H.P.E. ?? Care team members present 1. Estephanie Lewis M.D. 3. Nery Johnson M.D., M.H.P.E. PROCEDURE DETAILS Patient position: sitting Location: left posterior Puncture method: [id number] catheter Number of attempts: 1 Drainage characteristics: serous Estimated amount of fluid removed (ml): 600 ??Ultrasound image guidance used to localize target, identify at risk structures, and dynamically used to direct therapy to the target. Image(s) acquired and saved. Additional procedure details: Preprocedure US demonstrated a large hypoechoic pocket of fluid on the left side We drained 600 cc of serous fluid. Procedure terminated when the fluid stopped. Post procedure US demonstrated a trace residual effusion. Apical and lateral lung slide were seen. CONSENT Consent obtained: written (Risks, benefits and alternatives were discussed and a written Informed Consent was obtained. Please see Informed Consent form for further details.) UNIVERSAL PROTOCOL All relevant documentation and testing were reviewed and available. All required blood products, implants, devices and or special equipment were made available as applicable. Pre-procedure verification was conducted and the correct site was marked if required. A fire risk assessment was done as applicable. The procedural time-out to verify correct patient, correct side/site, and procedure was conducted prior to performing the procedure and confirmed in a procedural pause. PRE-PROCEDURE DETAILS Procedure purpose: therapeutic Indications: benign pleural effusion Appropriate hand hygiene, gown, cap, mask, protective eyewear, sterile gloves, skin preparation, sterile drape, and strict aseptic technique were utilized as applicable for the procedure. Site preparation: chlorhexidine SEDATION / ANESTHESIA Anesthesia method: local infiltration Local infiltrate type: lidocaine POST-PROCEDURE DETAILS Post-procedure chest x-ray performed: no Procedure successful: yes Complications: no apparent complications ATTESTATION STATEMENT A resident or fellow participated in the procedure, and the senior microsoft consultant was present for the entire procedure. Nery Johnson M.D., M.H.P.E. PROCEDUR E/MINOR SURGICAL ORDERABLES * Microscopic Manual (08/28/2023 5:32 PM CDT) Microscopy Normal 08/28/2023 7:31 PM CDT DTL RBC <3 <3 /hpf 08/28/2023 7:31 PM CDT DTL WBC None Seen /hpf 08/28/2023 7:31 PM CDT DTL Comment: ----REFERENCE VALUE---- <4 ??(Males) <11 (Females) Urine 08/28/2023 5:32 PM CDT 08/28/2023 6:28 PM CDT Gabrielle Hernandez M.D. LAB URINE ORDERABLES Performing Organization Address [facility] Co de Phone Number [facility] [address] [place] [address] * Bacterial Culture, Aerobic + Susceptibility, Urine (08/28/2023 5:32 PM CDT) Urine Culture No growth after 1 day of incubation. 08/30/2023 8:13 AM CDT [facility] Urine (Urine, Midstream) 08/28/2023 5:32 PM CDT 08/28/2023 6:45 PM CDT Comment:Specimen Source Site : Urine Gabrielle Hernandez M.D. LAB MICROBIOLOGY - G ENERAL ORDERABLES Performing Organization Address [facility] Co de Phone Number [facility] [address] [place] [address] * MO THORACENTESIS PLEURA W IMG (08/28/2023 3:22 PM CDT) Narrative Nery Johnson M.D., M.H.P.E. - 08/28/2023 3:22 PM CDT Nery Johnson M.D., M.H.P.E. ? 08/28/2023 ??3:28 PM Thoracentesis Performed by: Zaida Fleming M.D. Authorized by: Nery Johnson M.D., M.H.P.E. ?? Care team members present 1. Zaida Fleming M.D. 3. Nery Johnson M.D., M.H.P.E. PROCEDURE DETAILS Patient position: sitting Location: right posterior Intercostal space: 10th Puncture method: [id number] catheter Number of attempts: 1 Drainage characteristics: serous Estimated amount of fluid removed (ml): 525 ??Ultrasound image guidance used to localize target, identify at risk structures, and dynamically used to direct therapy to the target. Image(s) acquired and saved. Additional procedure details: Preprocedure US demonstrated ??moderate bilateral pleural effusions. We elected to tap the right side today. We drained 525 cc of serous fluid. The procedure was terminated when the fluid stopped. Post procedure US demonstrated only a trace residual effusion. Apical and lateral lung slide were present. CONSENT Consent obtained: written (Risks, benefits and alternatives were discussed and a written Informed Consent was obtained. Please see Informed Consent form for further details.) UNIVERSAL PROTOCOL All relevant documentation and testing were reviewed and available. All required blood products, implants, devices and or special equipment were made available as applicable. Pre-procedure verification was conducted and the correct site was marked if required. A fire risk assessment was done as applicable. The procedural time-out to verify correct patient, correct side/site, and procedure was conducted prior to performing the procedure and confirmed in a procedural pause. PRE-PROCEDURE DETAILS Procedure purpose: therapeutic Indications: benign pleural effusion Appropriate hand hygiene, gown, cap, mask, protective eyewear, sterile gloves, skin preparation, sterile drape, and strict aseptic technique were utilized as applicable for the procedure. Site preparation: chlorhexidine SEDATION / ANESTHESIA Anesthesia method: local infiltration Local infiltrate type: lidocaine POST-PROCEDURE DETAILS Post-procedure chest x-ray performed: no Procedure successful: yes Complications: no apparent complications ATTESTATION STATEMENT A resident or fellow participated in the procedure, and the senior microsoft consultant was present for the entire procedure. Nery Johnson M.D., M.H.P.E. PROCEDUR E/MINOR SURGICAL ORDERABLES * CT Abdomen Pelvis without IV Contrast (08/28/2023 1:15 PM CDT) Anatomical Region Laterality Modality Abdomen, Pelvis, Abdominal R ST LOS, Abdominal ARZ LOS, Abdominal FLA LOS N/A Computed Tomograp hy, Computed Tomography Impressions 08/28/2023 1:59 PM CDT IMPRESSION: ?? 1. ?? Interval placement of a cholecystostomy tube and biliary stent for cholecystitis. Inflammatory changes about the gallbladder with no organized, drainable fluid collection. 2. 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 In the absence of recent instrumentation, the findings are concerning for gas-forming infection. Correlate with urinalysis. 3. ??Increased moderate bilateral pleural effusions. 4. ??Diffuse vascular disease including a 5 cm abdominal aortic aneurysm, better characterized on exam with IV contrast August 19, 2023. Narrative 08/28/2023 1:59 PM CDT EXAM: ??CT ABDOMEN PELVIS WITHOUT IV CONTRAST COMPARISON: ??CT abdomen pelvis with IV contrast from outside hospital August 19, 2023 FINDINGS: Evaluation of the solid viscera is limited in the absence of intravenous contrast. Interval placement of a cholecystostomy tube, with locking loop within the gallbladder. Persistent stones/sludge within the lumen of the gallbladder. Small amount of pericholecystic fluid and inflammatory change. Stent within the common duct. Pancreatic parenchymal atrophy. Mild thickening of the adrenal glands. Atrophy of the [place] kidneys. 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 Gas within the urinary bladder and within the renal collecting systems of both renal allografts. Mild apparent enlargement of the left lower quadrant renal allograft with a small amount of perinephric fluid and stranding. Uterus is present. No adnexal masses. Diffuse arterial vascular calcification. 5 cm abdominal aortic aneurysm, better evaluated on contrast-enhanced outside CT 08/19/2023. No abdominopelvic adenopathy or ascites. There are a few loops of small bowel within the right lower quadrant with mild apparent mural thickening (series 3, images [id number]). Colonic diverticulosis. Percutaneous gastrostomy tube with appropriately positioned retention balloon. Body wall edema. Compression deformities of the T11 and L1 vertebral bodies. Bilateral pleural effusions with atelectasis within the lung bases. Coronary artery and valvular calcification. Small amount of pericardial fluid and/or thickening. Procedure Note Vamshi Potter M.D. - 08/28/2023 EXAM: CT ABDOMEN PELVIS WITHOUT IV CONTRAST COMPARISON: CT abdomen pelvis with IV contrast from outside hospitalAugust 19, 2023 FINDINGS: Evaluation of the solid viscera is limited in the absence ofintravenous contrast. Interval placement of a cholecystostomy tube, with locking loop within thegallbladder. Persistent stones/sludge within the lumen of the gallbladder.Small amount of pericholecystic fluid and inflammatory change. Stentwithin the common duct. Pancreatic parenchymal atrophy. Mild thickening of the adrenal glands.Atrophy of the [place] kidneys. Failed renal allograft within the rightlower quadrant. Gas within the urinary bladder and within the renalcollecting systems of both renal allografts. Mild apparent enlargement of the left lower quadrant renal allograft witha small amount of perinephric fluid and stranding. Uterus is present. No adnexal masses. Diffuse arterial vascularcalcification. 5 cm abdominal aortic aneurysm, better evaluated oncontrast-enhanced outside CT 08/19/2023. No abdominopelvic adenopathy orascites. There are a few loops of small bowel within the right lower quadrant withmild apparent mural thickening (series 3, images 81-103). Colonicdiverticulosis. Percutaneous gastrostomy tube with appropriatelypositioned retention balloon. Body wall edema. Compression deformities of the T11 and L1 vertebralbodies. Bilateral pleural effusions with atelectasis within the lung bases.Coronary artery and valvular calcification. Small amount of pericardialfluid and/or thickening. IMPRESSION: IMPRESSION: 1. Interval placement of a cholecystostomy tube and biliary stent forcholecystitis. Inflammatory changes about the gallbladder with noorganized, drainable fluid collection. 2. Locules of gas within the bladder and renal collecting systems of bothrenal allografts. In the absence of recent instrumentation, the findingsare concerning for gas-forming infection. Correlate with urinalysis. 3. Increased moderate bilateral pleural effusions. 4. Diffuse vascular disease including a 5 cm abdominal aortic aneurysm,better characterized on exam with IV contrast August 19, 2023. Gabrielle Hernandez M.D. G CT PROCEDURES * Lactate (08/28/2023 11:23 AM CDT) Lactate, P 1.7 0.5 - 2.2 mmol/L 08/28/2023 11:47 AM CDT STMA Blood (Blood, Venous) 08/28/2023 11:23 AM CDT 08/28/2023 11:32 AM CDT Gabrielle Hernandez M.D. LAB BLOOD NON ADD-ON Performing Organization Address City/[facility]/ZIP Co de Phone Number [facility] [address] [place], [place] [id number] [place] [address] STMA [facility] [address] [place] [address] * Amylase, Total (08/28/2023 11:23 AM CDT) Amylase, Total, S 69 28 - 100 U/L 08/28/2023 12:17 PM CDT DTL Blood (Blood, Venous) 08/28/2023 11:23 AM CDT 08/28/2023 12:01 PM CDT Gabrielle Hernandez M.D. LAB BLOOD ADD-ON Performing Organization Address [facility] Co de Phone Number [facility] [address] [place] [address], [facility] DTL [address] [address] * DX Abdomen Supine with Upright or Decubitus 2 Views (08/28/2023 8:57 AM CDT) Anatomical Region Laterality Modality Abdomen, Abdominal RST LOS, Abdominal ARZ LOS, Abdominal FLA LOS Right Digital Radiography Impressions 08/28/2023 9:36 AM CDT No evidence for bowel obstruction. Since June 30, 2023, placement of a pigtail catheter in the right upper quadrant, and placement of a plastic biliary stent. A tube overlying the left abdomen is unchanged. Extensive vascular calcifications. Radiopaque stool in the distal colon, showing moderate sigmoid diverticulosis. Narrative 08/28/2023 9:36 AM CDT EXAM: ??DX ABDOMEN SUPINE WITH UPRIGHT OR DECUBITUS 2 VIEWS Procedure Note John Smith M.B., Ch.B. - 08/28/2023 EXAM: DX ABDOMEN SUPINE WITH UPRIGHT OR DECUBITUS 2 VIEWS IMPRESSION: No evidence for bowel obstruction. Since June 30, 2023, placement of apigtail catheter in the right upper quadrant, and placement of a plasticbiliary stent. A tube overlying the left abdomen is unchanged. Extensivevascular calcifications. Radiopaque stool in the distal colon, showing moderatesigmoid diverticulosis. Gabrielle Hernandez M.D. [facility] DIAGNOSTIC IMAGI NG PROCEDURES * (TTE) 2D LIMITED WITH LIMITED DOPPLER (08/27/2023 9:01 AM CDT) Ejection Fraction 60 MC CV EIMS LV End-Diastolic Diameter 51 MC CV EIMS LV End-Systolic Diameter 34 MC CV EIMS MV E Velocity 0.8 MC CV EIMS MV A Velocity 0.6 MC CV EIMS MV E/A 1.33 MC CV EIMS MV e' Velocity Medial 0.05 MC CV EIMS MV e' Velocity Lateral 0.06 MC CV EIMS MV E/e' Medial 16 MC CV EIMS MV E/e' Lateral 13.3 MC CV EIMS RA Pressure 10 MC CV EIMS Anatomical Region Laterality Modality Echocardiography 08/27/2023 7:31 AM CDT Impressions 08/27/2023 12:14 PM CDT Echo performed at the patient's bedside. The scope of this echocardiogram was limited to assessment of pericardial effusion. Recommend a future complete echocardiogram if clinically indicated. LEFT VENTRICLE:Mildly enlarged left ventricular chamber size. Calculated 2-D linear left ventricular ejection fraction 60%. No regional wall motion abnormalities. Elevated left ventricular filling pressure. RIGHT VENTRICLE:Normal right ventricular chamber size. Normal right ventricular systolic function. ATRIA:Enlarged left atrial size by visual estimate. Normal right atrial size by visual estimate. CARDIAC VALVES:Mildly calcified aortic valve. Thickened mitral valve. Mildly calcified mitral annulus. Normal tricuspid valve. OTHER ECHO FINDINGS:Mildly enlarged inferior vena cava size with normal inspiratory collapse (>50%). Hepatic vein dilatation. No intracardiac mass or thrombus, but the left atrial appendage cannot be visualized adequately with transthoracic echo to exclude thrombus in this location. No ??pericardial effusion. Left pleural effusion. For the complete report, see the Order-Level Documents. Narrative 08/27/2023 12:14 PM CDT For the complete report, see the Order-Level Documents. Hemodynamics Heart Rate: 43 BPM Blood Pressure: 164 / 63 mmHg ECG: Sinus rhythm Final Impressions 1. No ??pericardial effusion. 2. Mildly enlarged left ventricular chamber size, calculated 2-D linear ejection fraction 60%. 3. Elevated left ventricular filling pressure. 4. Normal right ventricular chamber size, normal systolic function. 5. Mildly enlarged inferior vena cava size with normal inspiratory collapse (>50%). 6. Hepatic vein dilatation. 7. Left pleural effusion. 8. Compared to the report of 08/22/2023 the following changes have occurred: The pericardial effusion is no longer present. ??Side by side comparison of images performed. Procedure Note Terrell Harrison M.D., M.P.H. - 08/27/2023 For the complete report, see the Order-Level Documents. Hemodynamics Heart Rate: 43 BPM Blood Pressure: 164 / 63 mmHg ECG: Sinus rhythm Final Impressions 1. No pericardial effusion. 2. Mildly enlarged left ventricular chamber size, calculated 2-D linearejection fraction 60%. 3. Elevated left ventricular filling pressure. 4. Normal right ventricular chamber size, normal systolic function. 5. Mildly enlarged inferior vena cava size with normal inspiratorycollapse (>50%). 6. Hepatic vein dilatation. 7. Left pleural effusion. 8. Compared to the report of 08/22/2023 the following changes haveoccurred: The pericardial effusion is no longer present. Side by sidecomparison of images performed. Findings Echo performed at the patient's bedside. The scope of this echocardiogramwas limited to assessment of pericardial effusion. Recommend a futurecomplete echocardiogram if clinically indicated. LEFT VENTRICLE:Mildly enlarged left ventricular chamber size. Calculated2-D linear left ventricular ejection fraction 60%. No regional wall motionabnormalities. Elevated left ventricular filling pressure. RIGHT VENTRICLE:Normal right ventricular chamber size. Normal rightventricular systolic function. ATRIA:Enlarged left atrial size by visual estimate. Normal right atrialsize by visual estimate. CARDIAC VALVES:Mildly calcified aortic valve. Thickened mitral valve.Mildly calcified mitral annulus. Normal tricuspid valve. OTHER ECHO FINDINGS:Mildly enlarged inferior vena cava size with normalinspiratory collapse (>50%). Hepatic vein dilatation. No intracardiac massor thrombus, but the left atrial appendage cannot be visualized adequatelywith transthoracic echo to exclude thrombus in this location. Nopericardial effusion. Left pleural effusion. For the complete report, see the Order-Level Documents. Gabrielle Hernandez M.D. CV ECHO PROCEDURES * Staph aureus / MRSA, Nasal, PCR (08/25/2023 6:39 AM CDT) Staphylococcus aureus, PCR Negative Negative 08/25/2023 10:18 AM CDT DTL MRSA, PCR Negative Negative 08/25/2023 10:18 AM CDT DTL Swab (Nares) 08/25/2023 6:39 AM CDT 08/25/2023 7:19 AM CDT Kira Tam M.D. LAB MICROBIOLOGY - [facility] ORDERABLES [facility] [address] [place] [address], [address] [address] * MO THORACENTESIS PLEURA W IMG (08/24/2023 1:49 PM CDT) Narrative Citlaly Jefferson M.D. - 08/24/2023 1:49 PM CDT Jim Ge M.D. ? 08/24/2023 ??1:51 PM Thoracentesis Performed by: Jim Ge M.D. Authorized by: Citlaly Jefferson M.D. ?? Care team members present 1. Citlaly Jefferson M.D. PROCEDURE DETAILS Patient position: sitting Intercostal space: 7th Puncture method: [id number]-[id number] catheter Number of attempts: 1 Drainage characteristics: serous Estimated amount of fluid removed (ml): 900 ??Ultrasound image guidance used to localize target, identify at risk structures, and dynamically used to direct therapy to the target. Image(s) acquired and saved. Additional procedure details: Pre procedural ultrasound demarcation and exploration was performed. The intercostal arteries ??had the usual anatomic position underneath the superior rib. After informed consent, a procedural pause was completed verifying correct patient, procedure, site, and position. ??The patient was positioned in the upright position. ?? Ultrasound was used to locate a suitable pocket of pleural fluid. ??The site was marked. ??The patient's right side was prepped and draped in sterile fashion. ??Lidocaine 1% was used to anesthetize the skin, subcutaneous tract, and pleura over the rib. ??A 5.0 Fr Yueh catheter was advanced over the rib along the previously anesthetized track and advanced over the needle until a flash of pleural fluid was seen. ??Approximately 900 mL of serous fluid was removed until no further fluid flowed. ??A bandage was applied. ??Postprocedure ultrasound showed minimal fluid remaining in the pleural cavity, pleural separation <5 mm, ??and an lateral lung slide observed. ??Pleural fluid sent for analysis and indicated studies. ??The patient tolerated the procedure well without difficulty or complications. CONSENT Consent obtained: written (Risks, benefits and alternatives were discussed and a written Informed Consent was obtained. Please see Informed Consent form for further details.) UNIVERSAL PROTOCOL All relevant documentation and testing were reviewed and available. All required blood products, implants, devices and or special equipment were made available as applicable. Pre-procedure verification was conducted and the correct site was marked if required. A fire risk assessment was done as applicable. The procedural time-out to verify correct patient, correct side/site, and procedure was conducted prior to performing the procedure and confirmed in a procedural pause. PRE-PROCEDURE DETAILS Procedure purpose: diagnostic and therapeutic Indications: benign pleural effusion Appropriate hand hygiene, gown, cap, mask, protective eyewear, sterile gloves, skin preparation, sterile drape, and strict aseptic technique were utilized as applicable for the procedure. Site preparation: chlorhexidine SEDATION / ANESTHESIA Anesthesia method: local infiltration Local infiltrate type: lidocaine POST-PROCEDURE DETAILS Post-procedure chest x-ray performed: yes ?? X-ray findings: pending Complications: no apparent complications ATTESTATION STATEMENT A resident or fellow participated in the procedure, and the senior microsoft consultant was present for the entire procedure. Citlaly Jefferson M.D. PROCEDURE/MINOR GAXIOLA RGICAL ORDERABLES * Broad Range Bacteria PCR + Sequencing (08/24/2023 12:50 PM CDT) Broad Range Bacteria PCR+Sequencin g No bacterial DNA detected. This test was developed and its performance characteristics determined by [facility] in a manner consistent with CLIA requirements. This test has not been cleared or approved by the U.S. Food and Drug Administration. 08/26/2023 1:42 PM CDT DTL Fluid (Pleural Fluid, Right) 08/24/2023 12:50 PM CDT 08/24/2023 3:48 PM CDT Comment:Specimen Source Site : Fluid Narrative [facility] - 08/26/2023 1:42 PM CDT Bacterial Culture: Placed in Bactec aerobic and Bactec anaerobic bottles Gino Green M.D. LAB MICROBIOLOGY - G ENERAL ORDERABLES [facility] [address] [place] [address], [facility] [place] [address] [place] [address] * Protein, Total, Body Fluid (08/24/2023 12:50 PM CDT) Protein, Total, BF 3.1 See Comment g/dL 08/24/2023 7:24 PM CDT DTL Comment: ----ADDITIONAL INFORMATION---- A pleural fluid total protein to serum total protein ratio >0.5 is most consistent with exudative effusion. A peritoneal fluid total protein > 2.5 g/dL in patients with a high serum ascites albumin gradient can be caused by heart failure. A peritoneal fluid total protein > 1.0 g/dL helps to differentiate secondary from spontaneous bacterial peritonitis in conjunction with other laboratory, imaging, and clinical findings. All other fluids refer to www.[employer].com for further interpretive information. This test has been modified from the trawl net maker's instructions. Its performance characteristics were determined by [facility] in a manner consistent with CLIA requirements. This test has not been cleared or approved by the U.S. Food and Drug Administration. Fluid Type, Protein, Total Fluid, Pleural Fluid, Right 08/24/2023 2:07 PM CDT DTL Fluid (Pleural Fluid, Right) 08/24/2023 12:50 PM CDT 08/24/2023 2:29 PM CDT Gino Green M.D. LAB BODY FLUIDS AND STOOLS ORDERABLES Performing Organization Address City/[facility] Co de Phone Number [facility] [address] [place] [address] * Bacterial Culture, Aerobic + Susceptibility (08/24/2023 12:50 PM CDT) Bacterial Culture, Aerobic + Susc No growth after 5 days of incubation. 08/29/2023 8:10 AM CDT DTL Fluid (Pleural Fluid, Right) 08/24/2023 12:50 PM CDT 08/24/2023 3:48 PM CDT Comment:Specimen Source Site : Fluid Narrative [facility] - 08/29/2023 8:10 AM CDT Bacterial Culture: Placed in Bactec aerobic and Bactec anaerobic bottles Gino Green M.D. LAB MICROBIOLOGY - G ENERAL ORDERABLES Performing Organization Address [facility] Co de Phone Number [facility] [address] [place] [address] * Cell Count and Differential, Body Fluid (08/24/2023 12:50 PM CDT) Fluid Type Right; Pleural/Tho racentesis 08/24/2023 5:20 PM CDT DHPM Gross Appearance Slightly cloudy 08/24/2023 5:20 PM CDT DHPM Total Nucleated Cells 977 /mcL 08/24/2023 5:20 PM CDT DHPM Comment: ----REFERENCE VALUE---- Synovial: <150 /mcL Peritoneal: <500 /mcL Pleural: <500 /mcL Pericardial: <500 /mcL ----ADDITIONAL INFORMATION---- This test has been modified from the trawl net maker's instructions. Its performance characteristics were determined by [facility] in a manner consistent with CLIA requirements. This test has not been cleared or approved by the U.S. Food and Drug Administration. Neutrophils 29 % 08/24/2023 5:49 PM CDT DHPM Comment: ----REFERENCE VALUE---- Synovial: <25% Peritoneal: <25% Pleural: <25% Pericardial: <25% Lymphocytes 25 Synovial <75% % 08/24/2023 5:49 PM CDT DHPM Monocytes/Macropha ges 37 Synovial <70% % 08/24/2023 5:49 PM CDT DHPM Other Cells 9 % 08/24/2023 5:49 PM CDT PM Comment: ----REFERENCE VALUE---- The reference range and other method performance specifications have not been established for this bodyfluid. The test result must be integrated into the clinical context for interpretation. Other Cells Are: See Comment 024 5:54 AM CDT DHPM Comment:Mesothelial cells Comment See Comment 08/25/2023 5:54 AM CDT DHPM Comment:No blasts or maligna nt cells seen. Reviewed by: Charmaine 08/25/2023 5:54 AM CDT PM Fluid (Pleural Fluid, Right) 08/24/2023 12:50 PM CDT 08/24/2023 2:18 PM CDT Gino Green M.D. LAB BODY FLUIDS AND STOOLS ORDERABLES [address] [address], [facility] [address] [place] [address] * Triglycerides, Body Fluid (08/24/2023 12:50 PM CDT) Triglycerides, BF 28 See Comment mg/dL 08/24/2023 7:24 PM CDT DTL Comment: ----ADDITIONAL INFORMATION---- Pleural fluid triglyceride concentrations > 110 mg/dL are consistent with chylous effusions. ??Triglyceride concentrations <50 mg/dL are usually not due to chylous effusions. Peritoneal fluid triglyceride concentrations > 187 mg/dL are most consistent with chylous effusion. All other fluids refer to http://www.[employer].com for further interpretive information. This test has been modified from the trawl net maker's instructions. ??Its performance characteristics were determined by [facility] in a manner consistent with CLIA requirements. ??This test has not been cleared or approved by the U.S. Food and Drug Administration. Fluid Type Fluid, Pleural Fluid, Right 08/24/2023 2:07 PM CDT DTL Fluid (Pleural Fluid, Right) 08/24/2023 12:50 PM CDT 08/24/2023 2:29 PM CDT Gino Green M.D. LAB BODY FLUIDS AND STOOLS ORDERABLES Performing Organization Address City/[facility] Co de Phone Number [facility] [address] [place] [address], [facility] DTL [facility] [address] [place] [address] * pH, Pleural Fluid (08/24/2023 12:50 PM CDT) pH, Pleural Fluid 7.40 Not Applicable pH 08/24/2023 1:38 PM CDT [facility] Comment: Clinical guidelines suggest that in parapneumonic pleural effusions, a pH <7.2 indicate the need for tube drainage. Fluid (Pleural Fluid, Right) 08/24/2023 12:50 PM CDT 08/24/2023 1:35 PM CDT Gino Green M.D. LAB BODY FLUIDS AND STOOLS ORDERABLES Performing Organization Address [facility] Co de Phone Number [facility] [address] [place] [address], [facility] [address] [place] [address] * Fungal Smear (08/24/2023 12:50 PM CDT) Fungal Smear Negative. 08/24/2023 7:25 PM CDT DTL Fluid (Pleural Fluid, Right) 08/24/2023 12:50 PM CDT 08/24/2023 3:48 PM CDT Comment:Specimen Source Site : Fluid Narrative [facility] - 08/24/2023 7:25 PM CDT Bacterial Culture: Placed in Bactec aerobic and Bactec anaerobic bottles Gino Green M.D. LAB MICROBIOLOGY - G ENERAL ORDERABLES [facility] [address] [place] [address], [facility] [address] [place] [address] * Gram Stain (08/24/2023 12:50 PM CDT) Gram Stain No organisms seen. White blood cells, Few 08/24/2023 6:09 PM CDT DTL Fluid (Pleural Fluid, Right) 08/24/2023 12:50 PM CDT 08/24/2023 3:48 PM CDT Comment:Specimen Source Site : Fluid Narrative [facility] - 08/24/2023 6:09 PM CDT Bacterial Culture: Placed in Bactec aerobic and Bactec anaerobic bottles Gino Green M.D. LAB MICROBIOLOGY - G ENERAL ORDERABLES Performing Organization Address City/[facility]/ZIP Co de Phone Number [facility] [address] [place] [address], [facility] [address] [place] [address] * Fungal Culture, Routine (08/24/2023 12:50 PM CDT) Fungal Culture, Routine No growth after 24 days of incubation. 09/18/2023 1:01 AM CDT DTL Fluid (Pleural Fluid, Right) 08/24/2023 12:50 PM CDT 08/24/2023 3:48 PM CDT Comment:Specimen Source Site : Fluid Narrative [facility] - 09/18/2023 1:01 AM CDT Bacterial Culture: Placed in Bactec aerobic and Bactec anaerobic bottles Gino Green M.D. LAB MICROBIOLOGY - G ENERAL ORDERABLES [facility] [address] [place] [address], [facility] [address] [place] [address] * Lactate Dehydrogenase (LD), Body Fluid (08/24/2023 12:50 PM CDT) Lactate Dehydrogenase (LD), BF 271 See Comment U/L 08/24/2023 7:23 PM CDT DTL Comment: ----ADDITIONAL INFORMATION---- Pleural fluid lactate dehydrogenase (LDH) to serum LDH ratio >0.6 are most consistent with exudative effusions. Peritoneal fluid LDH > 220 U/L suggest secondary rather than spontaneous bacterial peritonitis in conjunction with other laboratory, imaging, and clinical findings. Synovial fluid lactate dehydrogenase (LDH) may be elevated greater than plasma or serum LDH due to inflammatory causes. Values should be interpreted in conjunction with other clinical findings. All other fluids refer to www.[employer].com for further interpretive information. This test has been modified from the trawl net maker's instructions. Its performance characteristics were determined by [facility] in a manner consistent with CLIA requirements. This test has not been cleared or approved by the U.S. Food and Drug Administration. Fluid Type, Lactate Dehydrogenase Fluid, Pleural Fluid, Right 08/24/2023 2:07 PM CDT DTL Fluid (Pleural Fluid, Right) 08/24/2023 12:50 PM CDT 08/24/2023 2:29 PM CDT Gino Green M.D. LAB BODY FLUIDS AND STOOLS ORDERABLES [facility] [address] [place] [address], [facility] [place] [address] [place] [address] * Bilirubin, Body Fluid (08/24/2023 12:50 PM CDT) Bilirubin, BF 0.4 See Comment mg/dL 08/24/2023 7:23 PM CDT DTL Comment: ----ADDITIONAL INFORMATION---- Peritoneal and Drain fluid bilirubin concentrations > 6 mg/dL or a fluid to serum bilirubin ratio greater than 5 is highly suggestive of bile extravasation. Pleural fluid to serum bilirubin ratios greater than 0.6 suggests an exudative effusion. ?? All other fluids refer to http://www.[employer]pencliniclabs.com for further interpretive information. This test has been modified from the trawl net maker's instructions. ??Its performance characteristics were determined by [facility] in a manner consistent with CLIA requirements. ??This test has not been cleared or approved by the U.S. Food and Drug Administration. Fluid Type Fluid, Pleural Fluid, Right 08/24/2023 2:07 PM CDT DTL Fluid (Pleural Fluid, Right) 08/24/2023 12:50 PM CDT 08/24/2023 2:29 PM CDT Gino Green M.D. LAB BODY FLUIDS AND STOOLS ORDERABLES Performing Organization Address City/[facility]/[place] [address] * (ABNORMAL) Protein, Total (08/24/2023 7:42 AM CDT) Protein, Total, S 6.1(L) 6.3 - 7.9 g/dL 08/24/2023 3:42 PM CDT DTL Blood (Blood, Venous) 08/24/2023 7:42 AM CDT 08/24/2023 3:10 PM CDT Torito Ma [place] [address] * Copper (08/24/2023 4:14 AM CDT) Copper, S 121 77 - 206 mcg/dL 08/24/2023 10:42 AM CDT [facility] Comment: ----ADDITIONAL INFORMATION---- This test was developed and its performance characteristics determined by [facility] in a manner consistent with CLIA requirements. This test has not been cleared or approved by the U.S. Food and Drug Administration. Blood (Blood, Venous) 08/24/2023 4:14 AM CDT 08/24/2023 8:57 AM CDT Torito Ma M.D. LAB BLOOD NON ADD-ON Performing Organization Address City/[facility]/ZIP Co de Phone Number [facility] [address] [place] [address] [facility] [address] [place] [address] [place] [address] * Ceruloplasmin (08/24/2023 4:14 AM CDT) Ceruloplasmin, S 32.8 20.0 - 51.0 mg/dL 08/25/2023 1:55 PM CDT DT Blood (Blood, Venous) 08/24/2023 4:14 AM CDT 08/24/2023 7:19 AM CDT Torito Ma M.D. LAB BLOOD ADD-ON Performing Organization Address [facility] Co de Phone Number [facility] [address] [place] [address], [facility] DT[address] [address] * (ABNORMAL) Zinc (08/24/2023 4:14 AM CDT) Zinc, S 44(L) 60 - 106 mcg/dL 08/24/2023 10:42 AM CDT [facility] Comment: ----ADDITIONAL INFORMATION---- This test was developed and its performance characteristics determined by [facility] in a manner consistent with CLIA requirements. This test has not been cleared or approved by the U.S. Food and Drug Administration. Blood (Blood, Venous) 08/24/2023 4:14 AM CDT 08/24/2023 8:57 AM CDT Torito Ma M.D. LAB BLOOD NON ADD-ON Performing Organization Address City/[facility]/ZIP Co de Phone Number [facility] [address] [place] [address] [facility] [address] [place] [address] [place] [address] * (ABNORMAL) Vitamin A Level (08/24/2023 4:14 AM CDT) [facility] Vitamin A 32.2(L) 32.5 - 78.0 mcg/dL 08/26/2023 9:55 AM CDT [facility] Comment: ----ADDITIONAL INFORMATION---- This test was developed and its performance characteristics determined by [facility] in a manner consistent with CLIA requirements. This test has not been cleared or approved by the U.S. Food and Drug Administration. Blood (Blood, Venous) 08/24/2023 4:14 AM CDT 08/24/2023 12:26 PM CDT Torito Ma M.D. LAB BLOOD NON ADD-ON Performing Organization Address [facility] de Phone Number [facility] [address] [place] [address] [place] [facility] [place] [address] * (ABNORMAL) Selenium (08/24/2023 4:14 AM CDT) [facility] Selenium, S 82(L) 110 - 165 mcg/L 08/24/2023 10:42 AM CDT [facility] Comment: ----ADDITIONAL INFORMATION---- This test was developed and its performance characteristics determined by [facility] in a manner consistent with CLIA requirements. This test has not been cleared or approved by the U.S. Food and Drug Administration. Blood (Blood, Venous) 08/24/2023 4:14 AM CDT 08/24/2023 8:57 AM CDT Torito Ma M.D. LAB BLOOD NON ADD-ON Performing Organization Address City/[facility]/ZIP Co de Phone Number [facility] [address] [place] [address] [facility] [address] [place] [address] [place] [address] * Ascorbic Acid (Vitamin C) (08/24/2023 4:13 AM CDT) Pathologist [facility] Ascorbic Acid, P 0.6 0.4 - 2.0 mg/dL 08/27/2023 4:30 AM CDT [facility] Comment: ----ADDITIONAL INFORMATION---- This test was developed and its performance characteristics determined by [facility] in a manner consistent with CLIA requirements. This test has not been cleared or approved by the U.S. Food and Drug Administration. Blood (Blood, Venous) 08/24/2023 4:13 AM CDT 08/26/2023 3:07 PM CDT Torito Ma M.D. LAB BLOOD NON ADD-ON [facility] [address] [place] [address] [facility] [address] [place] [address] [place] [address] * (ABNORMAL) Lipid Panel (08/23/2023 3:53 PM CDT) Pathologist [facility] Triglycerides 101 mg/dL 08/23/2023 4:59 PM CDT DTL Comment: ----REFERENCE VALUE---- Normal: <150 mg/dL Borderline High: 150-199 mg/dL High: 200-499 mg/dL Very High: > or =500 mg/dL Cholesterol, Total 90 mg/dL 2023 4:59 PM CDT DTL Comment: ----REFERENCE VALUE---- Desirable: < 200 mg/dL Borderline High: 200 - 239 mg/dL High: > or = 240 mg/dL Cholesterol, LDL, Calculated 38 mg/dL 08/23/2023 4:59 PM CDT DTL Comment: ----REFERENCE VALUE---- Desirable: <100 mg/dL Above Desirable: 100-129 mg/dL Borderline High: 130-159 mg/dL High: 160-189 mg/dL Very High: >=190 mg/dL ----ADDITIONAL INFORMATION---- LDL cholesterol calculated using the Winn/NIH equation. Cholesterol, HDL, S 33(L) >=50 mg/dL 08/23/2023 4:59 PM CDT DTL Cholesterol, Non-HDL, Calculated 57 mg/dL 08/23/2023 4:59 PM CDT DTL Comment: ----REFERENCE VALUE---- Desirable: <130 mg/dL Above Desirable: 130-159 mg/dL Borderline High: 160-189 mg/dL High: 190-219 mg/dL Very High: > or =220 mg/dL Fasting (8 HR or more) Unknown 08/23/2023 4:33 PM CDT DTL Blood (Blood, Venous) 08/23/2023 3:53 PM CDT 08/23/2023 4:33 PM CDT Torito Ma M.D. LAB BLOOD ADD-ON [facility] [address] [place] [address], [facility] [place] [address] [place] [address] * BI Breast Screening Bilateral (05/30/2016 9:29 AM PRESIDING JUDGE) Anatomical Region Laterality Modality Breast Bilateral Mammography 05/30/2016 9:29 AM PRESIDING JUDGE Impressions 05/30/2016 11:16 AM PRESIDING JUDGE Negative. RECOMMENDATION: Annual screening mammography. BI-RADS ASSESSMENT: 1: Negative. LETTER: L1/2S Electronically signed by: ?? Dong Byrne MD [id number] 30-May-2016 11:16 Narrative 05/30/2016 11:16 AM PRESIDING JUDGE 30-May-2016 09:29:00 ??Exam: Mammo Screen Bilat Indications: Pretransplant Recipient Evaluation Exam;Chronic Kidney Disease (CKD) NOS ORIGINAL REPORT - 30-May-2016 11:16:00 EXAM: Digital Screening Mammography Bilateral Computer-aided detection equipment was used during interpretation. COMPARISON: Prior exams were available for comparison. DENSITY: b. There are scattered areas of fibroglandular density. FINDINGS: No findings of malignancy. No significant change since prior exams. Procedure Note Angeles Byrne M.D. - 07/31/2017 30-May-2016 09:29:00 Exam: Mammo Screen Bilat Indications: Pretransplant Recipient Evaluation Exam;Chronic KidneyDisease (CKD) NOS ORIGINAL REPORT - 30-May-2016 11:16:00 EXAM: Digital Screening Mammography Bilateral Computer-aided detection equipment was used during interpretation. COMPARISON: Prior exams were available for comparison. DENSITY: b. There are scattered areas of fibroglandular density. FINDINGS: No findings of malignancy. No significant change since priorexams. IMPRESSION: Negative. RECOMMENDATION: Annual screening mammography. BI-RADS ASSESSMENT: 1: Negative. LETTER: L1/2S Electronically signed by: Dong Byrne MD [id number] 30-May-2016 11:16 Ruth Velez M.D. IMG BI PROCEDURES * Colonoscopy (02/15/2015 2:43 PM CDT) 02/15/2015 2:43 PM CDT Daya Andujar M.D. GI PROCEDURE ORDERAB LES [facility] [address] [place] [address] from Last 3 Months or Most Recently Relevant to Health Maintenance Additional Health Concerns Infection Onset Date Last Indicated Protective Environment 09/03/2022 3 Advance Directives For more information, please contact: [phone] * Full Code (Latest Code Status on File) Date Activated Date Inactivated Comments 09/19/2023 8:18 PM 09/24/2023 8:11 PM Question Answer Comments Full Code: Discussed * Full Code Date Activated Date Inactivated Comments 08/20/2023 8:58 PM 08/30/2023 9:14 PM Question Answer Comments Full Code: Discussed * DNR/DNI Date Activated Date Inactivated Comments 06/22/2023 11:31 AM 07/16/2023 5:38 PM * Full Code Date Activated Date Inactivated Comments 05/09/2023 7:53 AM 06/22/2023 11:31 AM Question Answer Comments Full Code: Discussed 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
--- OUTSIDE RECORDS SUMMARY | 2023-11-23 13:20 | XMS_ITS | Referral Summary ---
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 For routine questions regarding patient records, call [phone] during business hours, M-F 8:00 AM - 5:00 PM Central Time. Record requests for emergency care only can be directed to [phone] at any time.[facility] Encounters Date Type Department Care Team Description 10/16/2023 Clinical Communication Division of Gastroenterology in [place], [place] [address] [place] [phone] Bee Bermudez M.D. 10/03/2023 Clinical Communication Division of Nephrology and Hypertension in [place], [place] [address] [place] [phone] Reymundo Garcia M.D., M.B.A. Med Question 09/26/2023 Clinical Communication [facility] Clinical Reg[facility] in [place], [place] [address] [place] [phone] Kayli Llanes APRN, C.N.P., D.N.P. Follow-up Orders 09/24/2023 Orders Only [facility] [address] [place] [phone] Fatemeh Newman M.D., M.H.A. Cholecystitis (Primary Dx) 09/19/2023 2:59 PM CDT - 09/24/2023 6:06 PM CDT Hospital Encounter [facility], Third Floor [address] [place] [phone] Sakina Anderson APRN, C.N.P., D.N.P. Kayli Carpio M.D. Rieck, Katie M, M.D., M.H.A. Failure Renal Acute (Acute Kidney Injury) (HCC) (Primary Dx); Effusion Pericardial Acute (HCC); Prolonged QT Interval; Pain Chest; Effusion Pleural; Decline Functional Status [R53.81] Discharge Disposition: Home-Health Care Svc 09/22/2023 12:55 PM CDT Ancillary Procedure Department of Pulmonary and CC Medicine 09/20/2023 9:30 AM CDT Ancillary Procedure Department of Nursing 09/20/2023 9:25 AM CDT Ancillary Procedure Department of Nursing 09/18/2023 10:25 AM CDT - 09/18/2023 7:15 PM CDT Emergency [facility] Emergency Department [address] [place] [phone] Spring Mccormack M.D. Insufficiency Renal (Primary Dx); Prolonged QT Interval; Abdominal Pain; Failure To Thrive Adult Discharge Disposition: Home or Self Care 09/18/2023 Nurse Triage Department of [facility], [address] [phone] Cierra Bailey, R.N. 09/17/2023 Clinical Communication [facility] for Transplantation and Clinical Regeneration in [place], [place] [address] [place] [phone] Kayli Llanes APRN, C.N.P., D.N.P. 09/16/2023 Clinical Communication Division of [facility], [place], [place] [address] [place] [phone] Jt Melchor M.D. [employer] Form ([employer]) 09/13/2023 Orders Only Department of Radiology, [facility], in [place], [place] [address] [place] [address] [place] [phone] Margaret Mccall P.A.-C., M.S. Cholecystitis (Primary Dx) 09/13/2023 Refill Division of [facility] Internal Medicine, [place], [place] [address] [place] [phone] Tammy Moreira M.D. Med Refill 09/13/2023 Refill Division of [facility] Internal Medicine, [facility] in [place], [place] [address] [place] [phone] Jt Melchor M.D. Med Refill 09/09/2023 9:30 AM CDT Comprehensive Visit Department of Cardiovascular Medicine in [address] [phone] Kalyn Livingston M.D. Tachy Bennie Syndrome (HCC) 09/06/2023 Orders Only [facility] in [place], [place] [address] [place] [phone] Mere Blair R.N., C.C.T.C. Immunodeficiency (HCC) (Primary Dx); Transplant Renal (HCC); High Risk Medication 09/06/2023 11:04 AM CDT - 09/06/2023 11:59 PM CDT Hospital Encounter Department of Laboratory Medicine and Pathology, [place], [place] [address] [place] [phone] Kayli Llanes APRN, C.N.P., D.N.P. Transplant Renal (HCC) Discharge Disposition: Home or Self Care 09/06/2023 7:50 AM CDT - 09/06/2023 11:03 AM CDT Hospital Encounter Department of Laboratory Medicine and Pathology, [facility] in [place], [place] [address] [place] [phone] Daysi Mariano M.D. Transplant Renal (HCC) Discharge Disposition: Home or Self Care 09/06/2023 10:30 AM CDT Office Visit [facility] and Clinical Regeneration in [place], [place] [address] [place] [phone] Kayli Llanes APRN, C.N.P., D.N.P. Transplant Renal (HCC) (Primary Dx); Immunodeficiency (HCC); Medication Therapy Automotive Diagnostic Technician Not Anticoagulant 09/04/2023 Orders Only [facility] [address] [place] [phone] Gabrielle Hernandez M.D. Cholecystitis (Primary Dx) 09/02/2023 Clinical Communication RST [facility] [address] [place] [phone] Estephanie Lewis M.D. Post Hospital Follow-up 08/30/2023 Orders Only Division of Pulmonary Medicine in [place], [place] [address] [place] [address] Glen Gayle M.D. 08/30/2023 11:50 AM CDT Ancillary Procedure Department of Internal Medicine 08/30/2023 Clinical Communication RST [facility] [address] [place] [phone] Daysi Mariano M.D. Pre-visit Testing Orders 08/30/2023 9:00 AM CDT Ancillary Procedure Department of Internal Medicine 08/30/2023 7:15 AM CDT - 08/30/2023 11:59 PM CDT Hospital Encounter Division of Cardiovascular Diseases in [place], [place] [address] [place] [phone] Gabrielle Hernandez M.D. Discharge Disposition: Home or Self Care 08/20/2023 8:25 PM CDT - 08/30/2023 7:04 PM CDT Hospital Encounter [facility], [facility], Fourth Floor [address] [place] [address] Shana Her M.D. Roddy Amin M.B.B.S., M.D. Vamshi Vivas M.D. Cris Gracia M.D. Citlaly Jefferson M.D. Bhuiyan, M. Nadir, M.D. Enmanuel Vila M.D., Ph.D. 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[facility]) Discharge Disposition: Home-Health Care [facility] 08/29/2023 3:20 PM CDT Ancillary Procedure Department [...] Procedure Department of Pulmonary and CC Medicine from Last 3 Months Allergies No known active allergies Medications Medication Sig Dispensed Refills Start Date End Date Status predniSONE (DELTASONE) 5 mg tabletIndications:Tr ansplant Renal (HCC),High Risk Medication TAKE 1 TABLET(5 MG) BY MOUTH DAILY 90 tablet 3 07/10/2023 Active collagenase (SANTYL) 250 unit/gram ointment Apply 1 Application topically daily. Apply to coccyx. 30 g 2 07/17/2023 Active ftodtv-hmsmwwly-uhyh ase (CREON) 36,000-114,000-180,[address] capsule Take 36,000 Units of lipase by mouth 4 (four) times a day. Active DME OxygenIndications:Ac coquille Respiratory Failure With Hypoxia (HCC) DME Order [...] total) by mouth daily. 08/30/2023 5 Active xjukdxgyjusj-emma-YR -Ca-minerals (THERAPEUTIC-M) 400 mcg (folic acid) per [...] capsuleIndications:T ransplant Renal (HCC),Immunodeficien cy (HCC),Medication Therapy Automotive Diagnostic Technician Not Anticoagulant Take 2 capsules (500 mg [...] Stage 09/10/201308/04 Complication Kidney Transplant 06/17/2008 08/17/2020 Immunizations Name Administration Dates Next Due Influenza [...] drink = 0.6 oz pur e alcohol) [facility] Utilities Answer Date Recorded In the past [...] your living situation today? 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 [address] [place] [phone] Medical Devices Implanted Type Area Molder Operator Device Identifier Shelf Expiration Date Model / Serial / Lot Stnt Ctt Otw 10f 5 - [id number] Implanted:Qty: 1 on 08/21/2023 by Torito Telles M.D. at [facility] Biliary Stent [employer] 04/24/2026 [id number] / / [id number] Gel Inj W/Lido - [id number] Implanted:Qty: 1 on 06/18/2023 by Jt Rosenthal M.D. at [facility] Bone or Tissue Right: Vocal [employer] 06/05/2025 [id number] / / [id number] Conversions - Default Historical Implant Device Implanted:01/17 (Quantity not on file) Cardiac Other Chest Description:Body Location - Chest. stents. Device Status Text - CardOther. Explanted Type Area Molder Operator Device Identifier Shelf Expiration Date Model / [...] PANEL, S/P Routine 09/22/2023 4:25 PM CDT AZ THORACENTESIS PLEURA W IMG Routine 09/22/2023 1:18 [...] ECG AMBULATORY REAL TIME CARDIAC MONITORING - [facility] Routine 09/12/2023 12:28 PM CDT Atrial Fibrillation [...] PANEL, S Routine 08/30/2023 7:42 AM CDT AZ THORACENTESIS PLEURA W IMG Routine 08/29/2023 3:27 [...] SUSC, URINE Routine 08/28/2023 5:32 PM CDT AZ THORACENTESIS PLEURA W IMG Routine 08/28/2023 3:22 [...] patients; some inpatients) 08/24/2023 2:23 PM CDT AZ THORACENTESIS PLEURA W IMG Routine 08/24/2023 1:49 [...] BREAST SCREENING BILATERAL Routine 05/30/2016 9:29 AM AUTO RENTAL CLERK COLONOSCOPY Routine 02/15/2015 2:43 PM CDT from [...] - 6.45 x10(9)/L 09/24/2023 7:30 AM CDT DHPM Lymphocytes 1.35 0.95 - 3.07 x10(9)/L 09/24/2023 7:30 AM CDT DTL Monocytes 0.75 0.26 - 0.81 x10(9)/L 09/24/2023 7:30 AM CDT DTL Eosinophils 0.03 0.03 - 0.48 x10(9)/L 09/24/2023 7:30 AM CDT DTL Basophils 0.04 0.01 - 0.08 x10(9)/L 09/24/2023 7:30 AM CDT DTL Blood (Blood, Venous) 09/24/2023 6:41 AM CDT 09/24/2023 7:15 AM CDT Rufino Lopez M.D. LAB BLOOD ADD-ON [facility] [address] [place] [address], [facility] DTL [facility] [address] [place] [address] DHPM [facility] [place] [place] [address] [place] [address] * (ABNORMAL) Basic Metabolic Panel (09/24/2023 6:41 AM CDT) Only the most recent of10 resultswithin the time period is included. Potassium, S 4.8 3.6 - 5.2 mmol/L [...] CDT Rufino Lopez M.D. LAB BLOOD ADD-ON [facility] [address] [place] [address], [facility] [address] [place] [address] * (ABNORMAL) Methylmalonic Acid (MMA), Quantitative (09/24/2023 6:21 AM CDT) Methylmalonic Acid, QN, S 0.66(H) <=0.40 nmol/mL 09/26/2023 7:57 AM CDT DTL Comment: In this sample, the concentration of methylmalonic acid (MMA) was elevated. This finding is likely related to vitamin B12 deficiency. ----ADDITIONAL INFORMATION---- This test was developed and its performance characteristics determined by [facility] in a manner consistent with CLIA requirements. This test has not been cleared or approved by the U.S. Food and Drug Administration. Blood (Blood, Venous) 09/24/2023 6:21 AM CDT 09/25/2023 7:56 AM CDT Fatemeh Newman M.D., M.H.A. LAB BLOOD ADD -ON Performing Organization Address City/[facility]/ZIP Co de Phone Number [facility] [address] [place] [address], [facility] DTL [address] [place] [address] * (ABNORMAL) Tacrolimus, Trough (09/23/2023 8:24 AM CDT) Only the most recent of11 resultswithin the time period is included. Tacrolimus, Trough 4.5(L) 5.0-15.0 (Trough) ng/mL 09/23/2023 12:44 PM CDT [facility] Comment: ----ADDITIONAL INFORMATION---- Target steady-state trough concentrations vary depending on the type of transplant, concomitant immunosuppression, clinical/institutional protocols, and time post-transplant. Results should be interpreted in conjunction with this clinical information and any physical signs/symptoms of rejection/toxicity. Testing performed by Liquid Chromatography-Tandem Mass Spectrometry (LC-MS/MS). This test was developed and its performance characteristics determined by [facility] in a manner consistent with CLIA requirements. This test has not been cleared or approved by the U.S. Food and Drug Administration. Blood (Blood, Venous) 09/23/2023 8:24 AM CDT 09/23/2023 9:55 AM CDT Rufino Lopez M.D. LAB BLOOD NON ADD-ON Performing Organization Address City/[facility]/ZIP Co de Phone Number [facility] [address] [place] [address] [facility] [address] [place] [address] [place] [address] * (ABNORMAL) CRP (C-Reactive Protein) (09/23/2023 8:24 AM CDT) Only the most recent of4 resultswithin the time period is included. C-Reactive Protein (CRP), S 51.9(H) <5.0 mg/L 09/23/2023 11:23 AM CDT DTL Blood (Blood, Venous) 09/23/2023 8:24 AM CDT 09/23/2023 8:56 AM CDT Rufino Lopez M.D. LAB BLOOD ADD-ON Performing Organization Address City/[facility] Co de Phone Number [facility] [address] [place], [place] [address] [place] [address] 200 [place] [address] * Magnesium (09/23/2023 8:24 AM CDT) Only the most recent of12 resultswithin the time period is included. Pathologist [facility] Magnesium, S 2.1 1.7 - 2.3 mg/dL 09/23/2023 1:26 PM CDT DTL Blood 09/23/2023 8:24 AM CDT 09/23/2023 12:54 PM CDT Rufino Lopez M.D. LAB BLOOD ADD-ON Performing Organization Address City/[facility]/ZIP Co de Phone Number [facility] [address] [place] [address], [facility] 200 [place] [address] * Folate (09/23/2023 8:24 AM CDT) Folate, S >20.0 >=4.0 mcg/L 09/24/2023 8: 04 AM CDT DTL Blood 09/23/2023 8:24 AM CDT 09/23/2023 12:54 PM CDT Rufino Lopez M.D. LAB BLOOD ADD-ON Performing Organization Address City/[facility] Co de Phone Number [facility] 200 [place] [address], [facility]Out[facility] 200 [place] [address] * Vitamin B12 Assay (09/23/2023 8:24 AM CDT) Pathologist [facility] Vitamin B12 Assay, S 184 180 - [...] CDT Rufino Lopez M.D. LAB BLOOD ADD-ON Performing Organization Address [facility] Co de Phone Number [facility] 200 [place] [address], [facility] 200 [place] [address] * AZ THORACENTESIS PLEURA W IMG (09/22/2023 1:18 PM CDT) Narrative Torito Carty M.D. - 09/22/2023 1:18 PM CDT Torito Carty M.D. ? 09/22/2023 ??1:25 PM Thoracentesis Performed by: Torito Carty M.D. Authorized by: Torito Carty M.D. ?? Care team members present 1. Sanket Lopez M.D. PROCEDURE DETAILS Patient position: sitting Location: right posterior Intercostal space: 9th Puncture method: yipk-yts-ngzisx catheter Number of attempts: 1 Drainage characteristics: [...] incision was made and then a 5.0 [employer] catheter was advanced while aspirating over the [...] silhouette. Coronary stents. Vascularcalcifications. Rufino Lopez M.D. [facility] NG PROCEDURES * (ABNORMAL) GI [...] CDT DTL Yersinia species Negative Negative 09/21/19 10:18 PM CDT DTL Enteroaggregative E. coli [...] This assay is performed using the FDA-cleared CitizenDishArray GI Panel ([employer] Semi-Urgent This is a semi-urgen t result(GAXIOLA) [facility] Stool (Stool) 09/21/2023 7:5 0 PM CDT 09/21/2023 8:52 PM CDT Rufino Lopez M.D. LAB MICROBIOLOGY - G ENERAL ORDERABLES Performing Organization Address [facility] Co de Phone Number [facility] 200 [place] [address], [facility] DTL 200 [facility] 200 [place] [address] * (ABNORMAL) SPSMA Result (09/21/2023 7:18 PM CDT) [facility] Neutrophilic Segs and Bands 98(H) 50 - 75 % 09/21/2023 8:38 PM CDT DHPM Lymphocytes 2(L) 18 - 42 % 09/21/2023 8:38 PM CDT DHPM Interpretation See Comment 8:38 PM CDT DHPM Comment: Oval macrocytes and/or hypersegmented neutrophils are present: consider vitamin B12 or folate deficiency. No morphologic features of hemolysis are seen. Reviewed by: Tech 09/21/2023 8:38 PM CDT DHPM Blood (Blood, Venous) 09/21/2023 7:18 PM CDT 09/21/2023 7:54 PM CDT Rufino Lopez M.D. LAB BLOOD ADD-ON Performing Organization Address City/[facility] Co de Phone Number [facility] 200 [place] [address], [facility]HH[facility] 200 [place] [address] * LD (Lactate Dehydrogenase) (09/21/2023 7:18 PM CDT) Only the most recent of2 resultswithin the time period is included. [facility] LD 139 122 - 222 U/L 09/21/2023 8:18 PM CDT DTL Blood (Blood, Venous) 09/21/2023 7:18 PM CDT 09/21/2023 7:57 PM CDT Rufino Lopez M.D. LAB BLOOD NON ADD-ON [facility] [address] [place] [address], [facility] [address] [place] [address] * (ABNORMAL) Haptoglobin (09/21/2023 7:18 PM CDT) [facility] Haptoglobin, S 266(H) 30 - 200 mg/dL 09/23/2023 3:36 PM CDT [facility] Blood (Blood, Venous) 09/21/2023 7:18 PM CDT 09/23/2023 6:56 AM CDT Rufino Lopez M.D. LAB BLOOD ADD-ON Performing Organization Address City/[facility]/ZIP Co de Phone Number [facility] [address] [place] [address] [facility] [address] [place] [address] * Transfuse Red Blood Cells : (09/21/2023 6:34 PM CDT) Rufino Lopez M.D. BLOOD TRANSFUSION OR DERABLES * ABO/Rh Problem, RBC (09/21/2023 1:03 PM CDT) Pathologist [facility] ABORh A Neg Not applicable 09/21/2023 2:24 PM CDT DT Blood 09/21/2023 1:03 PM CDT 09/21/2023 1:10 PM CDT Rufino Lopez M.D. LAB BLOOD BANK TEST ORDERABLES Performing Organization Address [facility]/ZIP Co de Phone Number [facility] [address] [place] [address], [facility] [address] [place] [address] * Antibody Identification, Erythrocytes (09/21/2023 1:03 PM CDT) [facility] Antibody Identification No antibody detected 09/21/2023 2:24 PM CDT DT 09/21/2023 1:03 PM CDT 09/21/2023 1:10 PM CDT Narrative [facility] - 09/21/2023 2:24 PM CDT Specimen Information: Specimen ID: [id number] Specimen Collection Start Date: 09/21/2023 ??1:03 PM Specimen Received Date: 09/21/2023 ??1:10 PM Specimen ID: [id number] Specimen Collection Start Date: 09/21/2023 ??1:03 PM Specimen Received Date: 09/21/2023 ??1:10 PM Rufino Lopez M.D. LAB BLOOD BANK TEST ORDERABLES Performing Organization Address City/[facility] Co de Phone Number [facility] 200 [place] [address] * (ABNORMAL) Sedimentation Rate (09/21/2023 1:03 PM CDT) Sedimentation Rate, B 73(H) 2 - 22 mm/h 09/21/2023 2:14 PM CDT DTL Blood 09/21/2023 1:03 PM CDT 09/21/2023 1:21 PM CDT Sue Patrick M.D., M.P.H. LAB BLOOD ADD -ON Performing Organization Address City/[facility] Co de Phone Number [facility] [address] [place] [address] * (ABNORMAL) Hepatic Function Panel (09/21/2023 9:23 [...] Patrick M.D., M.P.H. LAB BLOOD ADD -ON [facility] 200 [place] [address], [facility]Out[facility] [address] [place] [address] * (ABNORMAL) Cystatin C with Estimated GFR (09/21/2023 9:23 AM CDT) Only the most recent of6 resultswithin the time period is included. Pathologist [facility] eGFR by Cystatin C 11(L) >60 mL/min/BSA [...] CDT Rufino Lopez M.D. LAB BLOOD ADD-ON Performing Organization Address City/[facility]/ZIP Co de Phone Number [facility] [address] [place] [address], [facility] 200 [place] [address] * (ABNORMAL) NT-Pro B-Type Natriuretic Peptide (BNP) (09/21/2023 9:23 AM CDT) NT-Pro BNP 68730(H) <=540 pg/mL 09/21/2023 5:34 PM CDT DT Comment: NT-proBNP values less than 300 pg/mL [...] CDT Rufino Lopez M.D. LAB BLOOD ADD-ON Performing Organization Address [facility] Co de Phone Number [facility] 200 [place] [address], [facility] 200 [place] [address] * US Kidney Transplant Left with Doppler [...] RAD IMAGI NG PROCEDURES Performing Organization Address City/[facility]/ZIP Co de Phone Number [facility] NA * (ABNORMAL) Phosphorus Inorganic (09/20/2023 9:28 AM CDT) Phosphorus (Inorganic), S 5.3(H) 2.5 - 4.5 mg/dL 09/20/2023 2:06 PM CDT DTL Blood 09/20/2023 9:28 AM CDT 09/20/2023 1:22 PM CDT Sue Patrick M.D., M.P.H. LAB BLOOD ADD -ON [facility] [address] [place] [address], [facility] DTL [facility] [address] [place] [address] * US Gallbladder and or Biliary Ducts [...] as visualized on CTabdomen pelvis 09/18/2023. Rufino BORGES US PROCEDURES * (ABNORMAL) Troponin T, 2h/6h, [...] Delta Interp Changing(A) 09/19/2023 10:40 PM CDT [facility] Comment:Evaluate for acute m yocardial injury Blood (Blood, Venous) 09/19/2023 6:09 PM CDT 09/19/2023 6:12 PM CDT Narrative [facility] - 09/19/2023 10:40 PM CDT Specimen Information: Specimen ID: [id number] Specimen Type: Blood Specimen Collection Start Date: 09/19/2023 ??6:09 PM Specimen Received Date: 09/19/2023 ??6:12 PM Specimen ID: [id number] Specimen Type: Blood Specimen Collection Start Date: 09/19/2023 10:16 PM Specimen Received Date: 09/19/2023 10:24 PM Sakina Anderson APRN, C.N.P., D.N.P. [place] [id number], [facility] 200 [place] [address] * (TTE) 2D LIMITED WITH COLOR AND [...] the complete report, see the Order-Level Documents. Radha Sauer APRNN.Ana., D.N.P. CV E CHO PROCEDURES * Lactate, B (09/19/2023 3:59 PM CDT) Only the most recent of2 resultswithin the time period is included. Lactate, B 0.6 0.5 - 2.2 mmol/L 09/19/2023 4:07 PM CDT [facility] Blood (Blood, Venous) 09/19/2023 3:59 PM CDT 09/19/2023 4:05 PM CDT Radha Sauer APRNN.P., D.N.P. LAB BLOOD NON ADD-ON Performing Organization Address City/[facility]/ZIP Co de Phone Number [facility] [address] [place] [address] * (ABNORMAL) Troponin T, Baseline, 5th gen (09/19/2023 3:59 PM CDT) Only the most recent of2 resultswithin the time period is included. Pathologist [facility] Troponin T, Baseline, 5th gen 106(H) <=10 ng/L 09/19/2023 4:22 PM CDT [facility] [facility] Comment:Consider acute myoca rdial injury Blood (Blood, Venous) 09/19/2023 3:59 PM CDT 09/19/2023 4:05 PM CDT Scotty Sauer APRN.N.P., D.N.P. LAB BLOOD TROPONIN [facility] [address] [place] [address] * (ABNORMAL) Prothrombin Time (PT) (09/19/2023 3:59 PM CDT) Pathologist [facility] Prothrombin Time, P 14.5(H) 9.4 - 12.5 sec 09/19/2023 4:13 PM CDT [facility] INR 1.3 0.9 - 1.1 09/19/2023 4:13 PM CDT [facility] Comment: ----ADDITIONAL INFORMATION---- Standard intensity warfarin therapeutic range: 2.0 to 3.0 ?? High intensity warfarin therapeutic range: 2.5 to 3.5 Blood (Blood, Venous) 09/19/2023 3:59 PM CDT 09/19/2023 4:05 PM CDT Scotty Sauer APRN.N.P., D.N.P. LAB BLOOD ADD-ON [facility] [address] [place] [address], [facility] [address] [place] [address] * Lipase (09/19/2023 3:59 PM CDT) Only the most recent of3 resultswithin the time period is included. [facility] Lipase, S 29 13 - 60 U/L 09/19/2023 5: 40 PM CDT DT Blood 09/19/2023 3:59 PM CDT 09/19/2023 5:08 PM CDT Scotty Sauer APRN.N.P., D.N.P. LAB BLOOD ADD-ON [facility] [address] [place] [address] * ECG 12 Lead (09/19/2023 3:12 PM CDT) Only the most recent of3 resultswithin the time period is included. [facility] Ventricular Rate ECG/Min 55 BPM MUSE [place] Interval 162 ms MUSE QRSD Interval 104 ms MUSE QT Interval 488 ms MUSE QTC Interval 466 ms MUSE P [place] 107 degrees MUSE R [place] 81 degrees MUSE T Wave [place] 269 degrees MUSE 09/19/2023 3:12 PM CDT [...] Sakina Anderson APRN, C.N.P., D.N.P. ECG ORDERABLES MUSE NA * Dipstick, Urine (09/18/2023 3:59 [...] LAB URINE ORDERAB LES Performing Organization Address City/[facility]/ZIP Co de Phone Number [facility] [address] [place] [address] * Sodium, Random, Urine (09/18/2023 3:59 PM CDT) Sodium, Random, U 15 mmol/L 09/19/2023 10:12 PM CDT DT Comment: ----REFERENCE VALUE---- Random urine sodium may be interpreted in conjunction with serum sodium, using both values to calculate fractional excretion of sodium. Urine 09/18/2023 3:59 PM CDT 09/19/2023 9:19 PM CDT Rufino Lopez M.D. LAB URINE ORDERABLES Performing Organization Address [facility] Co de Phone Number [facility] [address] [place], [place] [id number] [place] [address] [address] [place] [address] * Microscopic Automated (09/18/2023 3:59 PM CDT) Microscopy Normal 09/18/2023 5:15 PM CDT DTL RBC None Seen <3 /hpf 09/18/2023 5:15 PM CDT DTL WBC None Seen /hpf 09/18/2023 5:15 PM CDT DTL Comment: ----REFERENCE VALUE---- <4 ??(Males) <11 (Females) Urine 09/18/2023 3:59 PM CDT 09/18/2023 4:34 PM CDT Spring Mccormack M.D. LAB URINE ORDERAB LES Performing Organization Address City/[facility]/ZIP Co de Phone Number [facility] [address] [facility] 200 [place] [address] * pH, Urine (09/18/2023 3:59 PM CDT) Only the most recent of2 resultswithin the time period is included. pH, U 5.2 4.5 - 8.0 09/18/2023 5:0 5 PM CDT DT Urine 09/18/2023 3:59 PM CDT 09/18/2023 4:34 PM CDT Spring Mccormack M.D. LAB URINE ORDERAB LES [facility] [address] [place], [place] [id number] [place] [address] * Osmolality, Urine (09/18/2023 3:59 PM CDT) Only the most recent of2 resultswithin the time period is included. Osmolality, U 308 150 - 1150 mOsm/kg 09/18/2023 5:05 PM CDT DT Urine 09/18/2023 3:59 PM CDT 09/18/2023 4:34 PM CDT Spring Mccormack M.D. LAB URINE ORDERAB LES [facility] [address] [place] [address], [address] [address] * Creatinine, Random, Urine (09/18/2023 3:59 PM CDT) Creatinine, Random, U 61 16 - 326 mg/dL 09/19/2023 10:03 PM CDT DT Urine (Urine, Midstream) 09/18/2023 3:59 PM CDT 09/19/2023 9:19 PM CDT Rufino Lopez M.D. LAB URINE ORDERABLES Performing Organization Address [facility] Co de Phone Number [facility] [address] [place] [address], [address] [address] * (ABNORMAL) Urinalysis, with Microscopic: Urine, Catheter [...] LAB URINE ORDERAB LES Performing Organization Address [facility] Co de Phone Number [facility] [address] [place] [address], [facility] 200 [place] [address] * US Lower Extremity Veins Left (09/18/2023 [...] and management can be found on the ? site. Link [email or web address]/topic/clinical-answers/[email or web address] Procedure Note Vicente Byrd M.D. - 09/18/2023 [...] thrombosis and management can be found on the? site. [email or web address]/topic/clinical-answers/[email or web address]/[email or web address] -[email or web address] [id number] IMPRESSION: 1. Negative for acute DVT. 2. 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 John SELLERSG US PROCEDURES * CT Abdomen Pelvis with [...] resultswithin the time period is included. Pathologist [facility] Bacteria/Marcia da Culture, Blood No growth after 5 days of incubation. 09/23/2023 1:02 PM CDT DTL Blood (Blood, Peripheral Draw) 09/18/2023 12:07 PM CDT 09/18/2023 12:21 PM CDT Comment:Specimen Source Site : Blood Narrative [facility] - 09/23/2023 1:02 PM CDT Received Bactec Peds bottle John Gustafson M.D. LAB MICROBIOLOGY - G ENERAL ORDERABLES [facility] [address] [place] [address], [facility] DTL [facility] [place] [place] [address] [place] [address] * ECG AMBULATORY REAL TIME CARDIAC MONITORING - [facility] (09/12/2023 12:28 PM CDT) Pathologist [facility] Min Heart Rate 38 bpm INFOBIONIC MOME [...] Duration 0 sec duration INFOBIONIC MOME AF [place] 0% percent INFOBIONIC MOME VT Runs 0 count INFOBIONIC MOME SVT Runs 0 count INFOBIONIC MOME Symptom Count 0 count INFOBIONIC MOME 08/30/2023 3:29 PM CDT Narrative INFOBIONIC MOME - 09/13/2023 2:20 PM CDT 1. The [...] patient did not record any symptomatic events. It Infrastructure Specialist: ANA Bhagat / ANA Kumari Procedure Note [...] patient did not record any symptomatic events. It Infrastructure Specialist: ANA Bhagat / ANA Kumari Gabrielle Hernandez M.D. CV CARDIAC SERVICES PROCEDURES Performing Organization Address [facility] de Phone Number HITESH CHARLES NA * (ABNORMAL) Hemoglobin (08/30/2023 4:11 PM CDT) Only the most recent of2 resultswithin the time period is included. Hemoglobin 9.3(L) 11.6 - 15.0 g/dL 08/30/2023 4:53 PM CDT DTL Blood (Blood, Venous) 08/30/2023 4:11 PM CDT 08/30/2023 4:41 PM CDT Gabrielle Hernandez M.D. LAB BLOOD ADD-ON Performing Organization Address [facility] de Phone Number [address] [place] [address] * Abdomen-Internal Medicine Image Exam (08/30/2023 11:50 [...] RAD IMAGI NG PROCEDURES Performing Organization Address [facility] Co de Phone Number IIMS NA * (ABNORMAL) [...] CDT Gabrielle Hernandez M.D. LAB BLOOD ADD-ON [facility] [address] [place] [address], [facility] DTL [facility] [place] [place] [address] [place] [address] * [place] THORACENTESIS PLEURA W IMG (08/29/2023 3:27 PM CDT) Narrative Nery Johnson M.D., M.H.P.E. - 08/29/2023 3:27 PM CDT Nery Johnson M.D., Conrado ? 08/29/2023 ??3:40 PM Thoracentesis Performed by: Estephanie Lewis M.D. Authorized by: Nery Johnson M.D., Conrado ?? Care team members present 1. Estephanie eLwis M.D. 3. Nery Johnson M.D., Conrado PROCEDURE DETAILS Patient position: sitting Location: left posterior Puncture method: qemm-[id number]-[id number] catheter Number of attempts: 1 Drainage characteristics: [...] fellow participated in the procedure, and the websphere commerce consultant was present for the entire procedure. Nery Johnson M.D., RhodaHKassie PROCEDUR E/MINOR SURGICAL ORDERABLES * Microscopic Manual (08/28/2023 5:32 PM CDT) Microscopy Normal 08/28/2023 7:31 PM CDT DTL RBC <3 <3 /hpf 08/28/2023 7:31 PM CDT DTL WBC None Seen /hpf 08/28/2023 7:31 PM CDT DTL Comment: ----REFERENCE VALUE---- <4 ??(Males) <11 (Females) Urine 08/28/2023 5:32 PM CDT 08/28/2023 6:28 PM CDT Gabrielle Hernandez M.D. LAB URINE ORDERABLES Performing Organization Address City/[facility]/ZIP Co de Phone Number [facility] [address] [place] [address] * Bacterial Culture, Aerobic + Susceptibility, Urine (08/28/2023 5:32 PM CDT) Urine Culture No growth after 1 day of incubation. 08/30/2023 8:13 AM CDT DTL Urine (Urine, Midstream) 08/28/2023 5:32 PM CDT 08/28/2023 6:45 PM CDT Comment:Specimen Source Site : Urine Gabrielle Hernandez M.D. LAB MICROBIOLOGY - G ENERAL ORDERABLES [facility] 200 [place] [address], [facility] [address] [place] [address] * [place] THORACENTESIS PLEURA W IMG (08/28/2023 3:22 PM [...] right posterior Intercostal space: 10th Puncture method: gubv-[id number]-[id number] catheter Number of attempts: 1 Drainage characteristics: [...] fellow participated in the procedure, and the websphere commerce consultant was present for the entire procedure. [...] of the adrenal glands. Atrophy of the mechoopda kidneys. Failed renal allograft within the right [...] abdomen pelvis with IV contrast from outside hospitalApr2023 FINDINGS: Evaluation of the solid viscera is limited in the absence ofintravenous contrast. Interval placement of a cholecystostomy tube, with locking loop within thegallbladder. Persistent stones/sludge within the lumen of the gallbladder.Small amount of pericholecystic fluid and inflammatory change. Stentwithin the common duct. Pancreatic parenchymal atrophy. Mild thickening of the adrenal glands.Atrophy of the mechoopda kidneys. Failed renal allograft within the rightlower [...] contrast August 19, 2023. Gabrielle Hernandez M.D. [facility] [place] * Lactate (08/28/2023 11:23 AM CDT) Pathologist [facility] Lactate, P 1.7 0.5 - 2.2 mmol/L 08/28/2023 11:47 AM CDT STMA Blood (Blood, Venous) 08/28/2023 11:23 AM CDT 08/28/2023 11:32 AM CDT Gabrielle Hernandez M.D. LAB BLOOD NON ADD-ON Performing Organization Address City/[facility]/ZIP Co de Phone Number [facility] [address] [facility] [place] 200 [place] [address] * Amylase, Total (08/28/2023 11:23 AM CDT) Pathologist [facility] Amylase, Total, S 69 28 - 100 U/L 08/28/2023 12:17 PM CDT DTL Blood (Blood, Venous) 08/28/2023 11:23 AM CDT 08/28/2023 12:01 PM CDT Gabrielle Hernandez M.D. LAB BLOOD ADD-ON Performing Organization Address [facility] Co de Phone Number [facility] 200 [place] [address], [facility] [address] [place] [address] * DX Abdomen Supine with Upright or [...] WITH LIMITED DOPPLER (08/27/2023 9:01 AM CDT) Pathologist [facility] Ejection Fraction 60 MC CV EIMS LV [...] CDT Kira Tam M.D. LAB MICROBIOLOGY - G [facility] ORDERABLES [facility] [address] [place] [address], [facility] [address] [place] [address] * [place] THORACENTESIS PLEURA W IMG (08/24/2023 1:49 PM CDT) Narrative Citlaly Jefferson M.D. - 08/24/2023 1:49 PM CDT Jim Ge M.D. ? 08/24/2023 ??1:51 PM Thoracentesis Performed by: Jim Ge M.D. Authorized by: Citlaly Jefferson M.D. ?? Care team members present 1. Citlaly Jefferson M.D. PROCEDURE DETAILS Patient position: sitting Intercostal space: 7th Puncture method: [id number]-hsi-[id number] catheter Number of attempts: 1 Drainage characteristics: [...] pleura over the rib. ??A 5.0 Fr [employer] catheter was advanced over the rib along [...] fellow participated in the procedure, and the websphere commerce consultant was present for the entire procedure. Citlaly Jefferson M.D. PROCEDURE/MINOR GAXIOLA RGICAL ORDERABLES * Broad Range Bacteria PCR + Sequencing (08/24/2023 12:50 PM CDT) Pathologist [facility] Broad Range Bacteria PCR+Sequencin g No bacterial DNA detected. This test was developed and its performance characteristics determined by [facility] in a manner consistent with CLIA requirements. This test has not been cleared or approved by the U.S. Food and Drug Administration. 08/26/2023 1:42 PM CDT DTL Fluid (Pleural Fluid, Right) 08/24/2023 12:50 PM CDT 08/24/2023 3:48 PM CDT Comment:Specimen Source Site : Fluid Narrative [facility] - 08/26/2023 1:42 PM CDT Bacterial Culture: Placed in Bactec aerobic and Bactec anaerobic bottles Gino Green M.D. LAB MICROBIOLOGY - ENERAL ORDERABLES [facility] [address] [place] [address], [facility] [address] [place] [address] * Protein, Total, Body Fluid (08/24/2023 12:50 PM CDT) [facility] Protein, Total, BF 3.1 See Comment g/dL 08/24/2023 7:24 PM CDT DT Comment: ----ADDITIONAL INFORMATION---- A pleural fluid total [...] clinical findings. All other fluids refer to www.[employer].com for further interpretive information. This test has been modified from the extension division director's instructions. Its performance characteristics were determined by [facility] in a manner consistent with CLIA requirements. This test has not been cleared or approved by the U.S. Food and Drug Administration. Fluid Type, Protein, Total Fluid, Pleural Fluid, Right 08/24/2023 2:07 PM CDT DTL Fluid (Pleural Fluid, Right) 08/24/2023 12:50 PM CDT 08/24/2023 2:29 PM CDT Gino Green M.D. LAB BODY FLUIDS AND STOOLS ORDERABLES Performing Organization Address [facility] Co de Phone Number [facility] [address] [place] [address], [facility] [address] [place] [address] * Bacterial Culture, Aerobic + Susceptibility (08/24/2023 12:50 PM CDT) Bacterial Culture, Aerobic + Susc No growth after 5 days of incubation. 08/29/2023 8:10 AM CDT DTL Fluid (Pleural Fluid, Right) 08/24/2023 12:50 PM CDT 08/24/2023 3:48 PM CDT Comment:Specimen Source Site : Fluid Narrative [facility] - 08/29/2023 8:10 AM CDT Bacterial Culture: Placed in Bactec aerobic and Bactec anaerobic bottles Gino Green M.D. LAB MICROBIOLOGY - G ENERAL ORDERABLES Performing Organization Address City/[facility] Co de Phone Number [facility] [address] [place] [address], [facility] [address] [place] [address] * Cell Count and Differential, Body Fluid [...] This test has been modified from the extension division director's instructions. Its performance characteristics were determined by [facility] in a manner consistent with CLIA requirements. This test has not been cleared or approved by the U.S. Food and Drug Administration. Neutrophils 29 % 08/24/2023 5:49 PM CDT PM Comment: ----REFERENCE VALUE---- Synovial: <25% Peritoneal: <25% [...] Are: See Comment 024 5:54 AM CDT [facility] Comment:Mesothelial cells Comment See Comment 08/25/2023 5:54 AM CDT PM Comment:No blasts or maligna nt cells seen. Reviewed by: Charmaine 08/25/2023 5:54 AM CDT [facility] Fluid (Pleural Fluid, Right) 08/24/2023 12:50 PM CDT 08/24/2023 2:18 PM CDT Gino Green M.D. LAB BODY FLUIDS AND STOOLS ORDERABLES [facility] [address] [place] [address], [facility] [address] [place] [address] * Triglycerides, Body Fluid (08/24/2023 12:50 PM CDT) Triglycerides, BF 28 See Comment mg/dL 08/24/2023 7:24 PM CDT DTL Comment: ----ADDITIONAL INFORMATION---- Pleural fluid triglyceride concentrations > 110 mg/dL are consistent with chylous effusions. ??Triglyceride concentrations <50 mg/dL are usually not due to chylous effusions. Peritoneal fluid triglyceride concentrations > 187 mg/dL are most consistent with chylous effusion. All other fluids refer to http://www.[employer]iniclabs.com for further interpretive information. This test has been modified from the extension division director's instructions. ??Its performance characteristics were determined by [facility] in a manner consistent with CLIA requirements. ??This test has not been cleared or approved by the U.S. Food and Drug Administration. Fluid Type Fluid, Pleural Fluid, Right 08/24/2023 2:07 PM CDT DTL Fluid (Pleural Fluid, Right) 08/24/2023 12:50 PM CDT 08/24/2023 2:29 PM CDT Gino Green M.D. LAB BODY FLUIDS AND STOOLS ORDERABLES Performing Organization Address [facility] Co de Phone Number [facility] [address] [place] [address] * pH, Pleural Fluid (08/24/2023 12:50 PM CDT) pH, Pleural Fluid 7.40 Not Applicable pH 08/24/2023 1:38 PM CDT [facility] Comment: Clinical guidelines suggest that in parapneumonic pleural effusions, a pH <7.2 indicate the need for tube drainage. Fluid (Pleural Fluid, Right) 08/24/2023 12:50 PM CDT 08/24/2023 1:35 PM CDT Gino Green M.D. LAB BODY FLUIDS AND STOOLS ORDERABLES Performing Organization Address [facility] Co de Phone Number [facility] [address] [place] [address], [facility] [address] * Fungal Smear (08/24/2023 12:50 PM CDT) Fungal Smear Negative. 08/24/2023 7:25 PM CDT DTL Fluid (Pleural Fluid, Right) 08/24/2023 12:50 PM CDT 08/24/2023 3:48 PM CDT Comment:Specimen Source Site : Fluid Narrative [facility] - 08/24/2023 7:25 PM CDT Bacterial Culture: Placed in Bactec aerobic and Bactec anaerobic bottles Gino Green M.D. LAB MICROBIOLOGY - G ENERAL ORDERABLES Performing Organization Address City/[facility]/ZIP Co de Phone Number [facility] [address] [place] [address], [facility] [address] [place] [address] * Gram Stain (08/24/2023 12:50 PM CDT) Gram Stain No organisms seen. White blood cells, Few 08/24/2023 6:09 PM CDT DTL Fluid (Pleural Fluid, Right) 08/24/2023 12:50 PM CDT 08/24/2023 3:48 PM CDT Comment:Specimen Source Site : Fluid Narrative [facility] - 08/24/2023 6:09 PM CDT Bacterial Culture: Placed in Bactec aerobic and Bactec anaerobic bottles Gino Green M.D. LAB MICROBIOLOGY - G ENERAL ORDERABLES Performing Organization Address City/[facility] Co de Phone Number [facility] [address] [place] [address], [facility] [address] [place] [address] * Fungal Culture, Routine (08/24/2023 12:50 PM CDT) Fungal Culture, Routine No growth after 24 days of incubation. 09/18/2023 1:01 AM CDT DTL Fluid (Pleural Fluid, Right) 08/24/2023 12:50 PM CDT 08/24/2023 3:48 PM CDT Comment:Specimen Source Site : Fluid Narrative [facility] - 09/18/2023 1:01 AM CDT Bacterial Culture: Placed in Bactec aerobic and Bactec anaerobic bottles Gino Green M.D. LAB MICROBIOLOGY - G ENERAL ORDERABLES Performing Organization Address [facility] Co de Phone Number [facility] [address] [place], [place] [address] [place] [address] * Lactate Dehydrogenase (LD), Body Fluid (08/24/2023 12:50 PM CDT) Lactate Dehydrogenase (LD), BF 271 See Comment U/L 08/24/2023 7:23 PM CDT DT Comment: ----ADDITIONAL INFORMATION---- Pleural fluid lactate dehydrogenase [...] clinical findings. All other fluids refer to www.[employer].com for further interpretive information. This test has been modified from the extension division director's instructions. Its performance characteristics were determined by [facility] in a manner consistent with CLIA requirements. This test has not been cleared or approved by the U.S. Food and Drug Administration. Fluid Type, Lactate Dehydrogenase Fluid, Pleural Fluid, Right 08/24/2023 2:07 PM CDT DT Fluid (Pleural Fluid, Right) 08/24/2023 12:50 PM CDT 08/24/2023 2:29 PM CDT Gino Green M.D. LAB BODY FLUIDS AND STOOLS ORDERABLES Performing Organization Address City/[facility]/ZIP Co de Phone Number [facility] [address] [place] [address], [facility] 200 [place] [address] * Bilirubin, Body Fluid (08/24/2023 12:50 PM [...] effusion. ?? All other fluids refer to http://www.[employer].com for further interpretive information. This test has been modified from the extension division director's instructions. ??Its performance characteristics were determined by [facility] in a manner consistent with CLIA requirements. ??This test has not been cleared or approved by the U.S. Food and Drug Administration. Fluid Type Fluid, Pleural Fluid, Right 08/24/2023 2:07 PM CDT DTL Fluid (Pleural Fluid, Right) 08/24/2023 12:50 PM CDT 08/24/2023 2:29 PM CDT Gino Green M.D. LAB BODY FLUIDS AND STOOLS ORDERABLES Performing Organization Address City/[facility]/ZIP Co de Phone Number [facility] [address] [place] [address] * (ABNORMAL) Protein, Total (08/24/2023 7:42 AM CDT) Pathologist [facility] Protein, Total, S 6.1(L) 6.3 - 7.9 g/dL 08/24/2023 3:42 PM CDT DTL Blood (Blood, Venous) 08/24/2023 7:42 AM CDT 08/24/2023 3:10 PM CDT Torito Ma M.D. LAB BLOOD ADD-ON [facility] [address] [facility] 200 [place] [address] * Copper (08/24/2023 4:14 AM CDT) Copper, S 121 77 - 206 mcg/dL 08/24/2023 10:42 AM CDT [facility] Comment: ----ADDITIONAL INFORMATION---- This test was developed and its performance characteristics determined by [facility] in a manner consistent with CLIA requirements. This test has not been cleared or approved by the U.S. Food and Drug Administration. Blood (Blood, Venous) 08/24/2023 4:14 AM CDT 08/24/2023 8:57 AM CDT Torito Ma M.D. LAB BLOOD NON ADD-ON Performing Organization Address City/[facility]/ZIP Co de Phone Number [facility] [address] [place] [address] [facility] [address] [place] [address] [place] [address] * Ceruloplasmin (08/24/2023 4:14 AM CDT) Ceruloplasmin, S 32.8 20.0 - 51.0 mg/dL 08/25/2023 1:55 PM CDT DTL Blood (Blood, Venous) 08/24/2023 4:14 AM CDT 08/24/2023 7:19 AM CDT Torito Ma M.D. LAB BLOOD ADD-ON Performing Organization Address City/[facility]/ZIP Co de Phone Number [facility] [address] [place] [address], [facility] [address] [place] [address] * (ABNORMAL) Zinc (08/24/2023 4:14 AM CDT) Zinc, S 44(L) 60 - 106 mcg/dL 08/24/2023 10:42 AM CDT [facility] Comment: ----ADDITIONAL INFORMATION---- This test was developed and its performance characteristics determined by [facility] in a manner consistent with CLIA requirements. This test has not been cleared or approved by the U.S. Food and Drug Administration. Blood (Blood, Venous) 08/24/2023 4:14 AM CDT 08/24/2023 8:57 AM CDT Torito Ma M.D. LAB BLOOD NON ADD-ON Performing Organization Address [facility] Co de Phone Number [facility] [address] [place] [address] [facility] [address] [place] [address] [place] [address] * (ABNORMAL) Vitamin A Level (08/24/2023 4:14 AM CDT) Vitamin A 32.2(L) 32.5 - 78.0 mcg/dL 08/26/2023 9:55 AM CDT [facility] Comment: ----ADDITIONAL INFORMATION---- This test was developed and its performance characteristics determined by [facility] in a manner consistent with CLIA requirements. This test has not been cleared or approved by the U.S. Food and Drug Administration. Blood (Blood, Venous) 08/24/2023 4:14 AM CDT 08/24/2023 12:26 PM CDT Torito Ma M.D. LAB BLOOD NON ADD-ON Performing Organization Address City/[facility] Co de Phone Number [facility] [address] [place] [address] [facility] [address] [place] [address] [place] [address] * (ABNORMAL) Selenium (08/24/2023 4:14 AM CDT) Selenium, S 82(L) 110 - 165 mcg/L 08/24/2023 10:42 AM CDT [facility] Comment: ----ADDITIONAL INFORMATION---- This test was developed and its performance characteristics determined by [facility] in a manner consistent with CLIA requirements. This test has not been cleared or approved by the U.S. Food and Drug Administration. Blood (Blood, Venous) 08/24/2023 4:14 AM CDT 08/24/2023 8:57 AM CDT Torito Ma M.D. LAB BLOOD NON ADD-ON Performing Organization Address City/[facility]/ZIP Co de Phone Number [facility] [address] [place] [address] [facility] [address] [place] [address] [place] [address] * Ascorbic Acid (Vitamin C) (08/24/2023 4:13 AM CDT) Ascorbic Acid, P 0.6 0.4 - 2.0 mg/dL 08/27/2023 4:30 AM CDT [facility] Comment: ----ADDITIONAL INFORMATION---- This test was developed and its performance characteristics determined by [facility] in a manner consistent with CLIA requirements. This test has not been cleared or approved by the U.S. Food and Drug Administration. Blood (Blood, Venous) 08/24/2023 4:13 AM CDT 08/26/2023 3:07 PM CDT Torito Ma M.D. LAB BLOOD NON ADD-ON Performing Organization Address [facility] Co de Phone Number [facility] [address] [place] [address] [facility] [address] [place] [address] [place] [address] * (ABNORMAL) Lipid Panel (08/23/2023 3:53 PM CDT) Triglycerides 101 mg/dL 08/23/2023 4:59 PM CDT [...] CDT Torito Ma M.D. LAB BLOOD ADD-ON [facility] [address] [facility] [address] [place] [address] * BI Breast Screening Bilateral (05/30/2016 9:29 AM AUTO RENTAL CLERK) Anatomical Region Laterality Modality Breast Bilateral Mammography 05/30/2016 9:29 AM AUTO RENTAL CLERK Impressions 05/30/2016 11:16 AM AUTO RENTAL CLERK Negative. RECOMMENDATION: Annual screening mammography. BI-RADS ASSESSMENT: 1: Negative. LETTER: L1/2S Electronically signed by: ?? Dong Byrne MD [id number] 30-May-2016 11:16 Narrative 05/30/2016 11:16 AM AUTO RENTAL CLERK 30-May-2016 09:29:00 ??Exam: Mammo Screen Bilat Indications: [...] L1/2S Electronically signed by: Dong Byrne MD [id number] 30-May-2016 11:16 Ruth Velez M.D. IMG BI PROCEDURES * Colonoscopy (02/15/2015 2:43 PM CDT) 02/15/2015 2:43 PM CDT Daya Andujar M.D. GI PROCEDURE ORDERAB LES [facility] [address] [place] [address] from Last 3 Months or Most Recently Relevant to Health Maintenance Additional Health Concerns Infection Onset Date Last Indicated Protective Environment 09/03/2022 3 Advance Directives For more information, please contact: [phone] * Full Code (Latest Code Status on [...] Answer Comments Full Code: Discussed Care Teams Tractor Trailer Operator Relationship Specialty Start Date End Date Elsewhere, Pcp PCP - General Internal Medicine 05/08/23 [facility] Laboratory Medicine 04/07/20
--- OUTSIDE RECORDS SUMMARY | 2023-11-23 13:20 | XMS_ITS ---
Author Organization [facility] Address [address] [place] [address] Care Team Providers Care Cattle Feeder Name Role Phone Unavailable Unavailable Unavailable Surgery Details Not on file Complications Check Surgery Details section. Procedure Estimated Blood Loss Check Surgery Details section. Procedure Findings Check Surgery Details section. Procedure Specimens Taken Check Surgery Details section.
--- OUTSIDE RECORDS SUMMARY | 2023-11-23 13:21 | XMS_ITS | Encounter Summary ---
Author Organization [facility] Address [address] [place] [id number] Care Team Providers Care Electronic Lab Technician Name Role Phone Elsewhere, Pcp Primary Care Provider Unavailabl e Reason for Visit * Reason Comments Med Question Encounter Details Date Type Department Care Team (Latest Contact Info) Description 10/03/2023 Clinical Communication Division of Nephrology and Hypertension in [place], [place] [address] [place] [phone] Reymundo Garcia M.D., M.B.A. [address] [place] [phone] Med Question Social History Tobacco Use Types Packs/Day Years Used Date Smoking Tobacco: Former Cigarettes Smokeless Tobacco: Never Alcohol Use Standard Drinks/Week Comments Not Currently 0 (1 standard drink = 0.6 oz pur e alcohol) [facility] Utilities Answer Date Recorded In the past 12 months has [facility] [employer], gas, oil, or water [employer] threatened to shut off services in your [...] your living situation today? [facility] 09/19/2023 Sex and Gender Information Value Date Recorded Sex Assigned at Female 05/14/2018 2:49 PM SENIOR SHAREPOINT DEVELOPER Gender Identity Female 05/14/2018 2:49 PM SENIOR SHAREPOINT DEVELOPER Sexual Orientation Straight 05/14/2018 2: 49 PM SENIOR SHAREPOINT DEVELOPER documented as of this encounter Plan of Treatment Upcoming Encounters Date Type Department Care Team (Latest Contact Info) Description 01/03/2024 2:15 PM CDT Clinical Communication Virtual Review in [place], [place] [address] [place] [phone] 01/07/2024 3:00 PM CDT Office Visit Division of Gastroenterology in [place], [place] [address] [place] [phone] Hank Garner Jr., M.D. [address] [place] [phone] documented as of this encounter Visit Diagnoses Not on filedocumented in this encounter Additional Health Concerns Infection Onset Date Last Indicated Resolved Time Protective Environment 09/03/2022 09/03/2022 C. difficile 09/21/2023 09/21/2023 10/19/2023 5:38 AM CDT Assessment Noted Time PHQ-9 Depression Total Score: 0 07/11/19 17 12:26 PM SENIOR SHAREPOINT DEVELOPER documented as of this encounter Care Teams Electronic Lab Technician Relationship Specialty Start Date End Date Elsewhere, Pcp PCP - General Internal Medicine 05/08/23 [facility] Laboratory Medicine 04/07/20 documented as of this encounter
--- OUTSIDE RECORDS SUMMARY | 2023-11-23 13:21 | XMS_ITS ---
Author Organization [facility] Address [address] [place] [address] Care Team Providers Care Professor Of Archaeology Name Role Phone Elsewhere, Pcp Primary Care Provider Unavailabl e Procedures Procedure Name Priority Date/Time Associated Diagnosis [...] PANEL, S/P Routine 09/22/2023 4:25 PM CDT WV THORACENTESIS PLEURA W IMG Routine 09/22/2023 1:18 [...] ECG AMBULATORY REAL TIME CARDIAC MONITORING - [facility] Routine 09/12/2023 12:28 PM CDT [...] PANEL, S Routine 08/30/2023 7:42 AM CDT WV THORACENTESIS PLEURA W IMG Routine 08/29/2023 3:27 [...] SUSC, URINE Routine 08/28/2023 5:32 PM CDT WV THORACENTESIS PLEURA W IMG Routine 08/28/2023 3:22 [...] patients; some inpatients) 08/24/2023 2:23 PM CDT WV THORACENTESIS PLEURA W IMG Routine 08/24/2023 1:49 [...] BREAST SCREENING BILATERAL Routine 05/30/2016 9:29 AM FRAME [employer] SCR[employer] CRUSHER COLONOSCOPY Routine 02/15/2015 2:43 PM CDT from Last 3 Months or Most Recently Relevant to Health Maintenance Allergies No known active allergies Medications Medication Sig Dispensed Refills Start Date End Date Status predniSONE (DELTASONE) 5 mg tabletIndications:Tr ansplant Renal (HCC),High Risk Medication TAKE 1 TABLET(5 MG) BY MOUTH DAILY 90 tablet 3 07/10/2023 Active collagenase (SANTYL) 250 unit/gram ointment Apply 1 Application topically daily. Apply to coccyx. 30 g 2 07/17/2023 Active qtgtgd-rwnmtzbs-ikrf ase (CREON) 36,000-114,000-180,[address] [...] by mouth daily. 90 tablet 3 08/30/2023 5 Active atorvastatin (LIPITOR) 80 mg tablet Take 1 tablet (80 mg total) by mouth at bedtime. 90 tablet 3 08/30/2023 5 Active cholecalciferol, vitamin D3, 25 mcg (1,000 Unit) tablet Take 1 tablet (25 mcg total) by mouth daily. 08/30/2023 5 Active jefawiiilyof-nkmv-TY -Ca-minerals (THERAPEUTIC-M) 400 mcg (folic acid) per [...] capsuleIndications:T ransplant Renal (HCC),Immunodeficien cy (HCC),Medication Therapy Jail Not Anticoagulant Take 2 capsules (500 mg total) by mouth 2 (two) times a day. Do not break, cut, or open capsules. 360 capsule 3 09/06/2023 Active tacrolimus (PROGRAF) 1 mg capsule Take 1 capsule (1 mg total) by mouth 2 (two) times a day. 180 capsule 3 09/12/2023 5 Active bumetanide (BUMEX) 2 mg tablet Take 1 tablet (2 mg total) by mouth daily. 09/24/2023 Active pantoprazole (PROTONIX) 40 mg EC tablet Take 1 tablet (40 mg total) by mouth every morning before breakfast. 30 tablet 2 09/24/2023 Active cyanocobalamin (VITAMIN B12) 1,000 mcg tablet [...] Hypertension Essential Primary 10/10/2002 Overview (09/19/2023): Hypertension Immunizations Name Administration Dates Next Due Influenza [...] drink = 0.6 oz pur e alcohol) [facility] Utilities Answer Date Recorded In the past 12 months has e [employer], oil, or water [employer] threatened to shut off services in your [...] your living situation today? I have a [facility] place to live 09/19/2023 Sex and Gender Information Value Date Recorded Sex Assigned at Female 05/14/2018 2:49 PM [employer] SCR[employer] CRUSHER Gender Identity Female 05/14/2018 2:49 PM [employer] CRUSHER Sexual Orientation Straight 05/14/2018 2: 49 PM [employer] CRUSHER Last Filed Vital Signs Vital Sign Reading [...] Mass Index 13.54 09/20/2023 11:34 AM CDT Results * (ABNORMAL) CBC with Differential, Blood [...] - 6.45 x10(9)/L 09/24/2023 7:30 AM CDT [facility] Lymphocytes 1.35 0.95 - 3.07 x10(9)/L 09/24/2023 7:30 AM CDT DTL Monocytes 0.75 0.26 - 0.81 x10(9)/L 09/24/2023 7:30 AM CDT DTL Eosinophils 0.03 0.03 - 0.48 x10(9)/L 09/24/2023 7:30 AM CDT DTL Basophils 0.04 0.01 - 0.08 x10(9)/L 09/24/2023 7:30 AM CDT DTL Blood (Blood, Venous) 09/24/2023 6:41 AM CDT 09/24/2023 7:15 AM CDT Rufino Lopez M.D. LAB BLOOD ADD-ON [facility] [address] [place] [address], [facility] DTL [facility] [address] [place], [place] [id number] [place] [address] [place] [address] * (ABNORMAL) Basic Metabolic Panel (09/24/2023 6:41 AM CDT) Only the most recent of10 resultswithin the time period is included. [facility] Potassium, S 4.8 3.6 - 5.2 mmol/L [...] CDT Rufino Lopez M.D. LAB BLOOD ADD-ON [facility] [address] [place] [address], [facility] [address] [place] [address] * (ABNORMAL) Methylmalonic Acid (MMA), Quantitative (09/24/2023 6:21 AM CDT) Methylmalonic Acid, QN, S 0.66(H) <=0.40 nmol/mL 09/26/2023 7:57 AM CDT DTL Comment: In this sample, the concentration of methylmalonic acid (MMA) was elevated. This finding is likely related to vitamin B12 deficiency. ----ADDITIONAL INFORMATION---- This test was developed and its performance characteristics determined by [facility] in a manner consistent with CLIA requirements. This test has not been cleared or approved by the U.S. Food and Drug Administration. Blood (Blood, Venous) 09/24/2023 6:21 AM CDT 09/25/2023 7:56 AM CDT Fatemeh Newman M.D., M.H.A. LAB BLOOD ADD -ON Performing Organization Address City/[facility]/ZIP Co de Phone Number [facility] [address] [place] [address], [facility] DTL [address] [place] [address] * (ABNORMAL) Tacrolimus, Trough (09/23/2023 8:24 AM CDT) Only the most recent of11 resultswithin the time period is included. [facility] Tacrolimus, Trough 4.5(L) 5.0-15.0 (Trough) ng/mL 09/23/2023 12:44 PM CDT [facility] Comment: ----ADDITIONAL INFORMATION---- Target steady-state trough concentrations vary depending on the type of transplant, concomitant immunosuppression, clinical/institutional protocols, and time post-transplant. Results should be interpreted in conjunction with this clinical information and any physical signs/symptoms of rejection/toxicity. Testing performed by Liquid Chromatography-Tandem Mass Spectrometry (LC-MS/MS). This test was developed and its performance characteristics determined by [facility] in a manner consistent with CLIA requirements. This test has not been cleared or approved by the U.S. Food and Drug Administration. Blood (Blood, Venous) 09/23/2023 8:24 AM CDT 09/23/2023 9:55 AM CDT Rufino Lopez M.D. LAB BLOOD NON ADD-ON Performing Organization Address City/[facility]/ZIP Co de Phone Number [facility] [address] [address] [facility] [address] [place] [address] [place] [address] * (ABNORMAL) CRP (C-Reactive Protein) (09/23/2023 8:24 AM CDT) Only the most recent of4 resultswithin the time period is included. C-Reactive Protein (CRP), S 51.9(H) <5.0 mg/L 09/23/2023 11:23 AM CDT DTL Blood (Blood, Venous) 09/23/2023 8:24 AM CDT 09/23/2023 8:56 AM CDT Rufino Lopez M.D. LAB BLOOD ADD-ON [facility] [address] [place], [place] [address] [place] [address] [address] [place] [address] * Magnesium (09/23/2023 8:24 AM CDT) Only the most recent of12 resultswithin the time period is included. Magnesium, S 2.1 1.7 - 2.3 mg/dL 09/23/2023 1:26 PM CDT DTL Blood 09/23/2023 8:24 AM CDT 09/23/2023 12:54 PM CDT Rufino Lopez M.D. LAB BLOOD ADD-ON Performing Organization Address City/[facility]/ZIP Co de Phone Number [facility] [address] [place], [place] [phone] [place] [address] [address] [place] [address] * Folate (09/23/2023 8:24 AM CDT) Folate, S >20.0 >=4.0 mcg/L 09/24/2023 8: 04 AM CDT DTL Blood 09/23/2023 8:24 AM CDT 09/23/2023 12:54 PM CDT Rufino Lopez M.D. LAB BLOOD ADD-ON [facility] [address] [place] [address], [facility] [address] [place] [address] * Vitamin B12 Assay (09/23/2023 8:24 AM [...] CDT Rufino Lopez M.D. LAB BLOOD ADD-ON [facility] [address] [place] [address], [facility] [address] [place] [address] * WV THORACENTESIS PLEURA W IMG (09/22/2023 1:18 PM CDT) Narrative Torito Carty M.D. - 09/22/2023 1:18 PM CDT Torito Carty M.D. ? 09/22/2023 ??1:25 PM Thoracentesis Performed by: Torito Carty M.D. Authorized by: Torito Carty M.D. ?? Care team members present 1. Sanket Lopez M.D. PROCEDURE DETAILS Patient position: sitting Location: right posterior Intercostal space: 9th Puncture method: glgp-[id number]-[id number] catheter Number of attempts: 1 Drainage characteristics: [...] incision was made and then a 5.0 Angolan WeVorceeh catheter was advanced while aspirating over the [...] Vascularcalcifications. Rufino Lopez M.D. [facility] DI[facility]NOSTIC IMAGI NG PROCEDURES * (ABNORMAL) GI [...] performed using the FDA-cleared FilmArray GI Panel ([employer] Semi-Urgent This is a semi-urgen t result([place]OLA) [facility] Stool (Stool) 09/21/2023 7:5 0 PM CDT 09/21/2023 8:52 PM CDT Rufino Lopez M.D. LAB MICROBIOLOGY - G ENERAL ORDERABLES Performing Organization Address City/[facility]/ZIP Co de Phone Number [facility] [address] [place] [address], [facility] DTL 200 [facility] [address] [place] [address] * (ABNORMAL) SPSMA Result (09/21/2023 7:18 PM CDT) [facility] Neutrophilic Segs and Bands 98(H) 50 - [...] M.D. LAB BLOOD ADD-ON Performing Organization Address [facility]/ZIP Co de Phone Number [facility] [address] [place] [address], [facility] [address] [place] [address] * LD (Lactate Dehydrogenase) (09/21/2023 7:18 PM CDT) Only the most recent of2 resultswithin the time period is included. [facility] [place] LD 139 122 - 222 U/L 09/21/2023 8:18 PM CDT DTL Blood (Blood, Venous) 09/21/2023 7:18 PM CDT 09/21/2023 7:57 PM CDT Rufino Lopez M.D. LAB BLOOD NON ADD-ON Performing Organization Address City/[facility]/ZIP Co de Phone Number [facility] [address] [place] [address], [facility] DTL [facility] [address] [place] [address] * (ABNORMAL) Haptoglobin (09/21/2023 7:18 PM CDT) Pathologist [facility] Haptoglobin, S 266(H) 30 - 200 mg/dL 09/23/2023 3:36 PM CDT [facility] Blood (Blood, Venous) 09/21/2023 7:18 PM CDT 09/23/2023 6:56 AM CDT Rufino Lopez M.D. LAB BLOOD ADD-ON [facility] [address] [place] [address] [facility] [address] [place] [address] * Transfuse Red Blood Cells : (09/21/2023 6:34 PM CDT) Rufino Lopez M.D. BLOOD TRANSFUSION OR DERABLES * ABO/Rh Problem, RBC (09/21/2023 1:03 PM CDT) Pathologist [facility] ABORh A Neg Not applicable 09/21/2023 2:24 PM CDT DT Blood 09/21/2023 1:03 PM CDT 09/21/2023 1:10 PM CDT Rufino Lopez M.D. LAB BLOOD BANK TEST ORDERABLES Performing Organization Address [facility]/ZIP Co de Phone Number [facility] [address] [place] [address], [facility] [address] [place] [address] * Antibody Identification, Erythrocytes (09/21/2023 1:03 PM CDT) [facility] Antibody Identification No antibody detected 09/21/2023 2:24 PM CDT DT 09/21/2023 1:03 PM CDT 09/21/2023 1:10 PM CDT Narrative [facility] - 09/21/2023 2:24 PM CDT Specimen Information: Specimen ID: [id number] Specimen Collection Start Date: 09/21/2023 ??1:03 PM Specimen Received Date: 09/21/2023 ??1:10 PM Specimen ID: [id number] Specimen Collection Start Date: 09/21/2023 ??1:03 PM Specimen Received Date: 09/21/2023 ??1:10 PM Rufino Lopez M.D. LAB BLOOD BANK TEST ORDERABLES Performing Organization Address [facility] Co de Phone Number [facility] [address] [place] [address], [facility] [address] [place] [address] * (ABNORMAL) Sedimentation Rate (09/21/2023 1:03 PM CDT) Sedimentation Rate, B 73(H) 2 - 22 mm/h 09/21/2023 2:14 PM CDT DTL Blood 09/21/2023 1:03 PM CDT 09/21/2023 1:21 PM CDT Sue Patrick M.D., M.P.H. LAB BLOOD ADD -ON Performing Organization Address [facility] Co de Phone Number [facility] [address] [place] [address], [facility] [address] [place] [address] * (ABNORMAL) Hepatic Function Panel (09/21/2023 9:23 [...] LAB BLOOD ADD -ON Performing Organization Address [facility] Co de Phone Number [address] [address], [facility] [address] [address] * (ABNORMAL) Cystatin C with Estimated GFR (09/21/2023 9:23 AM CDT) Only the most recent of6 resultswithin the time period is included. eGFR by Cystatin C 11(L) >60 mL/min/BSA [...] CDT Rufino Lopez M.D. LAB BLOOD ADD-ON [facility] [address] [place], [place] [address] [address] [place] [address] * (ABNORMAL) NT-Pro B-Type Natriuretic Peptide (BNP) (09/21/2023 9:23 AM CDT) NT-Pro BNP 96872(H) <=540 pg/mL 09/21/2023 5:34 PM CDT DT [...] M.D. LAB BLOOD ADD-ON Performing Organization Address [facility]/State/ZIP Co de Phone Number [facility] [address] [place], [place] [address] [address] * US Kidney Transplant Left with Doppler [...] System IMG NON RAD IMAGI NG PROCEDURES [facility] NA * (ABNORMAL) Phosphorus Inorganic (09/20/2023 9:28 AM CDT) Phosphorus (Inorganic), S 5.3(H) 2.5 - 4.5 mg/dL 09/20/2023 2:06 PM CDT DTL Blood 09/20/2023 9:28 AM CDT 09/20/2023 1:22 PM CDT Sue Patrick M.D., M.P.H. [place] [address], [facility] [address] [place] [address] * US Gallbladder and or Biliary Ducts [...] PM CDT 09/19/2023 6:12 PM CDT Narrative [facility] - 09/19/2023 10:40 PM CDT Specimen Information: Specimen ID: [id number] Specimen Type: Blood Specimen Collection Start Date: 09/19/2023 ??6:09 PM Specimen Received Date: 09/19/2023 ??6:12 PM Specimen ID: [id number] Specimen Type: Blood Specimen Collection Start Date: 09/19/2023 10:16 PM Specimen Received Date: 09/19/2023 10:24 PM Sakina Anderson APRN, C.N.P., D.N.P. [place] [address], [place] [address] * (TTE) 2D LIMITED WITH COLOR AND [...] resultswithin the time period is included. Pathologist [facility] Lactate, B 0.6 0.5 - 2.2 mmol/L 09/19/2023 4:07 PM CDT [facility] Blood (Blood, Venous) 09/19/2023 3:59 PM CDT 09/19/2023 4:05 PM CDT Scotty Sauer APRN.N.P., D.N.P. LAB BLOOD NON ADD-ON [facility] [address] [place] [address] * (ABNORMAL) Troponin T, Baseline, 5th gen (09/19/2023 3:59 PM CDT) Only the most recent of2 resultswithin the time period is included. [facility] Troponin T, Baseline, 5th gen 106(H) <=10 ng/L 09/19/2023 4:22 PM CDT [facility] Comment:Consider acute myoca rdial injury Blood (Blood, Venous) 09/19/2023 3:59 PM CDT 09/19/2023 4:05 PM CDT Scotty Sauer APRN.N.P., D.N.P. LAB BLOOD TROPONIN [facility] [address] [place], [place] [address] [place] [address] * (ABNORMAL) Prothrombin Time (PT) (09/19/2023 3:59 PM CDT) [facility] Prothrombin Time, P 14.5(H) 9.4 - 12.5 sec 09/19/2023 4:13 PM CDT STMA INR 1.3 0.9 - 1.1 09/19/2023 4:13 PM CDT [facility] Comment: ----ADDITIONAL INFORMATION---- Standard intensity warfarin therapeutic range: 2.0 to 3.0 ?? High intensity warfarin therapeutic range: 2.5 to 3.5 Blood (Blood, Venous) 09/19/2023 3:59 PM CDT 09/19/2023 4:05 PM CDT Scotty Sauer APRN.N.P., D.N.P. LAB BLOOD ADD-ON Performing Organization Address City/[facility]/ZIP Co de Phone Number [facility] [address] [place] [address] * Lipase (09/19/2023 3:59 PM CDT) Only the most recent of3 resultswithin the time period is included. Pathologist [facility] Lipase, S 29 13 - 60 U/L 09/19/2023 5: 40 PM CDT DTL Blood 09/19/2023 3:59 PM CDT 09/19/2023 5:08 PM CDT Sakina Anderson APRN C.N.P., D.N.P. LAB BLOOD ADD-ON Performing Organization Address City/[facility]/ZIP Co de Phone Number [facility] [address] [place] [address], [facility] [address] [place] [address] * ECG 12 Lead (09/19/2023 3:12 PM CDT) Only the most recent of3 resultswithin the time period is included. Pathologist [facility] Ventricular Rate ECG/Min 55 BPM MUSE WV Interval 162 ms MUSE QRSD Interval 104 ms MUSE QT Interval 488 ms MUSE QTC Interval 466 ms MUSE P [place] 107 degrees MUSE R [place] 81 degrees MUSE T Wave [place] 269 degrees MUSE 09/19/2023 3:12 PM CDT [...] Spring Mccormack M.D. LAB URINE ORDERAB LES [facility] [address] [place] [address] * Sodium, Random, Urine (09/18/2023 3:59 PM CDT) Pathologist [facility] Sodium, Random, U 15 mmol/L 09/19/2023 10:12 PM CDT DT Comment: ----REFERENCE VALUE---- Random urine sodium may be interpreted in conjunction with serum sodium, using both values to calculate fractional excretion of sodium. Urine 09/18/2023 3:59 PM CDT 09/19/2023 9:19 PM CDT Rufino Lopez M.D. LAB URINE ORDERABLES Performing Organization Address City/[facility]/ZIP Co de Phone Number [facility] [address] [place] [address] * Microscopic Automated (09/18/2023 3:59 PM CDT) [facility] Microscopy Normal 09/18/2023 5:15 PM CDT DTL RBC None Seen <3 /hpf 09/18/2023 5:15 PM CDT DTL WBC None Seen /hpf 09/18/2023 5:15 PM CDT DT Comment: ----REFERENCE VALUE---- <4 ??(Males) <11 (Females) Urine 09/18/2023 3:59 PM CDT 09/18/2023 4:34 PM CDT Spring Mccormack M.D. LAB URINE ORDERAB LES [facility] [address] [place] [address] * pH, Urine (09/18/2023 3:59 PM CDT) Only the most recent of2 resultswithin the time period is included. Pathologist [facility] pH, U 5.2 4.5 - 8.0 09/18/2023 5:0 5 PM CDT DT Urine 09/18/2023 3:59 PM CDT 09/18/2023 4:34 PM CDT Spring Mccormack M.D. LAB URINE ORDERAB LES [facility] [address] [place] [address], [facility] [address] [place] [address] * Osmolality, Urine (09/18/2023 3:59 PM CDT) Only the most recent of2 resultswithin the time period is included. Osmolality, U 308 150 - 1150 mOsm/kg 09/18/2023 5:05 PM CDT DT Urine 09/18/2023 3:59 PM CDT 09/18/2023 4:34 PM CDT Spring Mccormack M.D. LAB URINE ORDERAB LES Performing Organization Address City/[facility]/ZIP Co de Phone Number [facility] [address] [place], [place] [address] [place] [address] [address] [place] [address] * Creatinine, Random, Urine (09/18/2023 3:59 PM CDT) Creatinine, Random, U 61 16 - 326 mg/dL 09/19/2023 10:03 PM CDT DT Urine (Urine, Midstream) 09/18/2023 3:59 PM CDT 09/19/2023 9:19 PM CDT Rufino Lopez M.D. LAB URINE ORDERABLES [facility] [address] [place] [address], [facility] [address] [place] [address] * (ABNORMAL) Urinalysis, with Microscopic: Urine, Catheter [...] Spring Mccormack M.D. LAB URINE ORDERAB LES [place] [address] [place] [address], [facility] [address] [place] [address] * US Lower Extremity Veins Left (09/18/2023 [...] and management can be found on the [employer] site. Link [email or web address] Procedure Note Vicente Byrd M.D. - 09/18/2023 [...] thrombosis and management can be found on the[employer] site. [email or web address] IMPRESSION: 1. Negative for acute DVT. 2. 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 John Gustafson M.D. IMEmilia US PROCEDURES * CT Abdomen Pelvis with [...] resultswithin the time period is included. Pathologist [facility] Bacteria/Marcia da Culture, Blood No growth after 5 days of incubation. 09/23/2023 1:02 PM CDT DTL Blood (Blood, Peripheral Draw) 09/18/2023 12:07 PM CDT 09/18/2023 12:21 PM CDT Comment:Specimen Source Site : Blood Narrative [facility] - 09/23/2023 1:02 PM CDT Received Bactec Peds bottle John Gustafson M.D. LAB MICROBIOLOGY - [facility] ORDERABLES [facility] [address] [place] [address], [facility] DTL [facility] [address] [place] [address] * ECG AMBULATORY REAL TIME CARDIAC MONITORING - [facility] (09/12/2023 12:28 PM CDT) Pathologist [facility] Min Heart Rate 38 bpm INFOBIONIC MOME [...] Duration 0 sec duration INFOBIONIC MOME AF [place] 0% percent INFOBIONIC MOME VT Runs 0 [...] patient did not record any symptomatic events. Adult Education Instructor: ANA Bhagat / ANA Kumari Procedure Note [...] patient did not record any symptomatic events. Adult Education Instructor: ANA Bhagat / ANA Kumari Gabrielle Hernandez M.D. CV CARDIAC SERVICES PROCEDURES INFOBIONIC MOME NA * (ABNORMAL) Hemoglobin (08/30/2023 4:11 PM CDT) Only the most recent of2 resultswithin the time period is included. Hemoglobin 9.3(L) 11.6 - 15.0 g/dL 08/30/2023 4:53 PM CDT DTL Blood (Blood, Venous) 08/30/2023 4:11 PM CDT 08/30/2023 4:41 PM CDT Gabrielle Hernandez M.D. LAB BLOOD ADD-ON Performing Organization Address City/[facility]/ZIP Co de Phone Number [facility] [address] [place] [address], [facility] [address] [place] [address] * Abdomen-Internal Medicine Image Exam (08/30/2023 11:50 [...] RAD IMAGI NG PROCEDURES Performing Organization Address [facility] Co de Phone Number IIMS NA [...] CDT Gabrielle Hernandez M.D. LAB BLOOD ADD-ON [facility] [address] [place] [address], [facility] [address] [place] [address] * W[place] THORACENTESIS PLEURA W IMG (08/29/2023 3:27 PM CDT) Narrative Nery Johnson M.D., M.H.P.E. - 08/29/2023 3:27 PM CDT Nery Johnson M.D., M.H.P.E. ? 08/29/2023 ??3:40 PM Thoracentesis Performed by: Estephanie Lewis M.D. Authorized by: Nery Johnson M.D., M.H.P.E. ?? Care team members present 1. Estephanie Lewis M.D. 3. Nery Johnson M.D., M.H.PMarlysE. PROCEDURE DETAILS Patient position: sitting Location: left posterior Puncture method: ezsr-awz-lkzbot catheter Number of attempts: 1 Drainage characteristics: [...] fellow participated in the procedure, and the documentation consultant was present for the entire procedure. [...] M.D. LAB URINE ORDERABLES Performing Organization Address [facility] de Phone Number [facility] [address] [place] [address] * Bacterial Culture, Aerobic + Susceptibility, Urine (08/28/2023 5:32 PM CDT) Urine Culture No growth after 1 day of incubation. 08/30/2023 8:13 AM CDT DTL Urine (Urine, Midstream) 08/28/2023 5:32 PM CDT 08/28/2023 6:45 PM CDT Comment:Specimen Source Site : Urine Gabrielle Hernandez M.D. LAB MICROBIOLOGY - G ENERAL ORDERABLES Performing Organization Address [facility] Co de Phone Number [facility] [address] [place], [place] [id number] [place] [address] 200 [place] [address] * [place] THORACENTESIS PLEURA W IMG (08/28/2023 3:22 PM [...] right posterior Intercostal space: 10th Puncture method: [id number] catheter Number of attempts: 1 Drainage characteristics: [...] fellow participated in the procedure, and the documentation consultant was present for the entire procedure. [...] of the adrenal glands. Atrophy of the [place] kidneys. Failed renal allograft within the right [...] thickening of the adrenal glands.Atrophy of the [place] kidneys. Failed renal allograft within the rightlower [...] contrast August 19, 2023. Gabrielle Hernandez M.D. [place] CT PROCEDURES * Lactate (08/28/2023 11:23 AM CDT) Lactate, P 1.7 0.5 - 2.2 mmol/L 08/28/2023 11:47 AM CDT STMA Blood (Blood, Venous) 08/28/2023 11:23 AM CDT 08/28/2023 11:32 AM CDT Gabrielle Hernandez M.D. LAB BLOOD NON ADD-ON [facility] [address] [place], [place] [id number] [place] [address] STMA [facility] [address] [place] [address] * Amylase, Total (08/28/2023 11:23 AM CDT) Amylase, Total, S 69 28 - 100 U/L 08/28/2023 12:17 PM CDT DTL Blood (Blood, Venous) 08/28/2023 11:23 AM CDT 08/28/2023 12:01 PM CDT Gabrielle Hernandez M.D. LAB BLOOD ADD-ON Performing Organization Address [facility] Co de Phone Number [facility] [address] [place], [place] [id number] [place] [address] DTL [facility] [address] [place] [address] * DX Abdomen Supine with Upright or [...] the distal colon, showing moderatesigmoid diverticulosis. Gabrielle BORGES DIAGNOSTIC IMAGI NG PROCEDURES * (TTE) 2D [...] Kira Tam M.D. LAB MICROBIOLOGY - G [facility] ORDERABLES [facility] [address] [place] [address], [facility] [address] [place] [address] * [place] THORACENTESIS PLEURA W IMG (08/24/2023 1:49 PM CDT) Narrative Citlaly Jefferson M.D. - 08/24/2023 1:49 PM CDT Jim Ge M.D. ? 08/24/2023 ??1:51 PM Thoracentesis Performed by: Jim Ge M.D. Authorized by: Citlaly Jefferson M.D. ?? Care team members present 1. Citlaly Jefferson M.D. PROCEDURE DETAILS Patient position: sitting Intercostal space: 7th Puncture method: [id number] catheter Number of attempts: 1 Drainage characteristics: [...] fellow participated in the procedure, and the documentation consultant was present for the entire procedure. Citlaly Jefferson M.D. PROCEDURE/MINOR GAXIOLA RGICAL ORDERABLES * Broad Range Bacteria PCR + Sequencing (08/24/2023 12:50 PM CDT) Broad Range Bacteria PCR+Sequencin g No bacterial DNA detected. This test was developed and its performance characteristics determined by [facility] in a manner consistent with CLIA requirements. This test has not been cleared or approved by the U.S. Food and Drug Administration. 08/26/2023 1:42 PM CDT DTL Fluid (Pleural Fluid, Right) 08/24/2023 12:50 PM CDT 08/24/2023 3:48 PM CDT Comment:Specimen Source Site : Fluid Narrative [facility] - 08/26/2023 1:42 PM CDT Bacterial Culture: Placed in Bactec aerobic and Bactec anaerobic bottles Gino Green M.D. LAB MICROBIOLOGY - [facility] ORDERABLES [facility] [address] [place] [address], [facility] [address] [place] [address] * Protein, Total, Body Fluid (08/24/2023 12:50 PM CDT) Pathologist [facility] Protein, Total, BF 3.1 See Comment g/dL [...] clinical findings. All other fluids refer to www.Talkitos.com for further interpretive information. This test has been modified from the scrap stripper hand's instructions. Its performance characteristics were determined by [facility] in a manner consistent with CLIA requirements. This test has not been cleared or approved by the U.S. Food and Drug Administration. Fluid Type, Protein, Total Fluid, Pleural Fluid, Right 08/24/2023 2:07 PM CDT DTL Fluid (Pleural Fluid, Right) 08/24/2023 12:50 PM CDT 08/24/2023 2:29 PM CDT Gino Green M.D. LAB BODY FLUIDS AND STOOLS ORDERABLES Performing Organization Address [facility] Co de Phone Number [facility] [address] [place] [address] * Bacterial Culture, Aerobic + Susceptibility (08/24/2023 12:50 PM CDT) Bacterial Culture, Aerobic + Susc No growth after 5 days of incubation. 08/29/2023 8:10 AM CDT DTL Fluid (Pleural Fluid, Right) 08/24/2023 12:50 PM CDT 08/24/2023 3:48 PM CDT Comment:Specimen Source Site : Fluid Narrative [facility] - 08/29/2023 8:10 AM CDT Bacterial Culture: Placed in Bactec aerobic and Bactec anaerobic bottles Gino Green M.D. LAB MICROBIOLOGY - G ENERAL ORDERABLES Performing Organization Address [facility] Co de Phone Number [facility] [address] [place], [place] [phone] [place] [address] * Cell Count and Differential, Body Fluid [...] This test has been modified from the scrap stripper hand's instructions. Its performance characteristics were determined by [facility] in a manner consistent with CLIA [...] Cells 9 % 08/24/2023 5:49 PM CDT [facility] Comment: ----REFERENCE VALUE---- The reference range and [...] Reviewed by: Charmaine 08/25/2023 5:54 AM CDT [facility] Fluid (Pleural Fluid, Right) 08/24/2023 12:50 PM CDT 08/24/2023 2:18 PM CDT Gino Green M.D. LAB BODY FLUIDS AND STOOLS ORDERABLES [facility] [address] [place] [address], [facility] [address] [place] [address] * Triglycerides, Body Fluid (08/24/2023 12:50 PM CDT) Triglycerides, BF 28 See Comment mg/dL 08/24/2023 7:24 PM CDT DTL Comment: ----ADDITIONAL INFORMATION---- Pleural fluid triglyceride concentrations > 110 mg/dL are consistent with chylous effusions. ??Triglyceride concentrations <50 mg/dL are usually not due to chylous effusions. Peritoneal fluid triglyceride concentrations > 187 mg/dL are most consistent with chylous effusion. All other fluids refer to http://www.Talkitos.com for further interpretive information. This test has been modified from the scrap stripper hand's instructions. ??Its performance characteristics were determined by [facility] in a manner consistent with CLIA requirements. ??This test has not been cleared or approved by the U.S. Food and Drug Administration. Fluid Type Fluid, Pleural Fluid, Right 08/24/2023 2:07 PM CDT DTL Fluid (Pleural Fluid, Right) 08/24/2023 12:50 PM CDT 08/24/2023 2:29 PM CDT Gino Green M.D. LAB BODY FLUIDS AND STOOLS ORDERABLES Performing Organization Address [facility] Co de Phone Number [facility] [address] [facility] [address] [place] [address] * pH, Pleural Fluid (08/24/2023 12:50 PM CDT) pH, Pleural Fluid 7.40 Not Applicable pH 08/24/2023 1:38 PM CDT [facility] Comment: Clinical guidelines suggest that in parapneumonic pleural effusions, a pH <7.2 indicate the need for tube drainage. Fluid (Pleural Fluid, Right) 08/24/2023 12:50 PM CDT 08/24/2023 1:35 PM CDT Gino Green M.D. LAB BODY FLUIDS AND STOOLS ORDERABLES Performing Organization Address [facility] Co de Phone Number [facility] [address] STMA [facility] [address] [place] [address] * Fungal Smear (08/24/2023 12:50 PM CDT) Fungal Smear Negative. 08/24/2023 7:25 PM CDT DTL Fluid (Pleural Fluid, Right) 08/24/2023 12:50 PM CDT 08/24/2023 3:48 PM CDT Comment:Specimen Source Site : Fluid Narrative [facility] - 08/24/2023 7:25 PM CDT Bacterial Culture: Placed in Bactec aerobic and Bactec anaerobic bottles Gino Green M.D. LAB MICROBIOLOGY - G ENERAL ORDERABLES [facility] [address] [place] [address], [facility] [address] [place] [address] * Gram Stain (08/24/2023 12:50 PM CDT) Gram Stain No organisms seen. White blood cells, Few 08/24/2023 6:09 PM CDT DTL Fluid (Pleural Fluid, Right) 08/24/2023 12:50 PM CDT 08/24/2023 3:48 PM CDT Comment:Specimen Source Site : Fluid Narrative [facility] - 08/24/2023 6:09 PM CDT Bacterial Culture: Placed in Bactec aerobic and Bactec anaerobic bottles Gino Green M.D. LAB MICROBIOLOGY - G ENERAL ORDERABLES Performing Organization Address City/[facility]/ZIP Co de Phone Number [facility] [address] [place] [address], [facility] [address] [place] [address] * Fungal Culture, Routine (08/24/2023 12:50 PM CDT) Fungal Culture, Routine No growth after 24 days of incubation. 09/18/2023 1:01 AM CDT DTL Fluid (Pleural Fluid, Right) 08/24/2023 12:50 PM CDT 08/24/2023 3:48 PM CDT Comment:Specimen Source Site : Fluid Narrative [facility] - 09/18/2023 1:01 AM CDT Bacterial Culture: Placed in Bactec aerobic and Bactec anaerobic bottles Gino Green M.D. LAB MICROBIOLOGY - G ENERAL ORDERABLES [facility] [address] [place] [address], [facility] [address] [place] [address] * Lactate Dehydrogenase (LD), Body Fluid (08/24/2023 [...] clinical findings. All other fluids refer to www.Talkitos.com for further interpretive information. This test has been modified from the scrap stripper hand's instructions. Its performance characteristics were determined by [facility] in a manner consistent with CLIA requirements. This test has not been cleared or approved by the U.S. Food and Drug Administration. Fluid Type, Lactate Dehydrogenase Fluid, Pleural Fluid, Right 08/24/2023 2:07 PM CDT DT Fluid (Pleural Fluid, Right) 08/24/2023 12:50 PM CDT 08/24/2023 2:29 PM CDT Gino Green M.D. LAB BODY FLUIDS AND STOOLS ORDERABLES [facility] [address] [place], [place] [address] [address] [place] [address] * Bilirubin, Body Fluid (08/24/2023 12:50 PM [...] effusion. ?? All other fluids refer to http://www.mayocliniclabs.com for further interpretive information. This test has been modified from the scrap stripper hand's instructions. ??Its performance characteristics were determined by [facility] in a manner consistent with CLIA requirements. ??This test has not been cleared or approved by the U.S. Food and Drug Administration. Fluid Type Fluid, Pleural Fluid, Right 08/24/2023 2:07 PM CDT DTL Fluid (Pleural Fluid, Right) 08/24/2023 12:50 PM CDT 08/24/2023 2:29 PM CDT Gino Green M.D. LAB BODY FLUIDS AND STOOLS ORDERABLES Performing Organization Address [facility] Co de Phone Number [facility] [address] [place] [address] * (ABNORMAL) Protein, Total (08/24/2023 7:42 AM CDT) Protein, Total, S 6.1(L) 6.3 - 7.9 g/dL 08/24/2023 3:42 PM CDT DT Blood (Blood, Venous) 08/24/2023 7:42 AM CDT 08/24/2023 3:10 PM CDT Torito Ma M.D. LAB BLOOD ADD-ON Performing Organization Address City/[facility]/ZIP Co de Phone Number [facility] [address] [place] [address] * Copper (08/24/2023 4:14 AM CDT) Copper, S 121 77 - 206 mcg/dL 08/24/2023 10:42 AM CDT [facility] Comment: ----ADDITIONAL INFORMATION---- This test was developed and its performance characteristics determined by [facility] in a manner consistent with CLIA requirements. This test has not been cleared or approved by the U.S. Food and Drug Administration. Blood (Blood, Venous) 08/24/2023 4:14 AM CDT 08/24/2023 8:57 AM CDT Torito Ma M.D. LAB BLOOD NON ADD-ON Performing Organization Address [facility] Co de Phone Number [facility] [address] [place] [address] [facility] [address] [place] [address] [place] [address] * Ceruloplasmin (08/24/2023 4:14 AM CDT) Ceruloplasmin, S 32.8 20.0 - 51.0 mg/dL 08/25/2023 1:55 PM CDT DT Blood (Blood, Venous) 08/24/2023 4:14 AM CDT 08/24/2023 7:19 AM CDT Torito Ma M.D. LAB BLOOD ADD-ON Performing Organization Address [facility] de Phone Number [facility] [address] [place] [address], [facility] [address] [place] [address] * (ABNORMAL) Zinc (08/24/2023 4:14 AM CDT) Zinc, S 44(L) 60 - 106 mcg/dL 08/24/2023 10:42 AM CDT [facility] Comment: ----ADDITIONAL INFORMATION---- This test was developed and its performance characteristics determined by [facility] in a manner consistent with CLIA requirements. This test has not been cleared or approved by the U.S. Food and Drug Administration. Blood (Blood, Venous) 08/24/2023 4:14 AM CDT 08/24/2023 8:57 AM CDT Torito Ma M.D. LAB BLOOD NON ADD-ON Performing Organization Address [facility] Co de Phone Number [facility] [address] [place] [address] [facility] [address] [place] [address] [place] [address] * (ABNORMAL) Vitamin A Level (08/24/2023 4:14 AM CDT) Vitamin A 32.2(L) 32.5 - 78.0 mcg/dL 08/26/2023 9:55 AM CDT [facility] Comment: ----ADDITIONAL INFORMATION---- This test was developed and its performance characteristics determined by [facility] in a manner consistent with CLIA requirements. This test has not been cleared or approved by the U.S. Food and Drug Administration. Blood (Blood, Venous) 08/24/2023 4:14 AM CDT 08/24/2023 12:26 PM CDT Torito Ma M.D. LAB BLOOD NON ADD-ON Performing Organization Address [facility] de Phone Number [facility] [address] [place] [address] [facility] [address] [place] [address] [place] [address] * (ABNORMAL) Selenium (08/24/2023 4:14 AM CDT) Selenium, S 82(L) 110 - 165 mcg/L 08/24/2023 10:42 AM CDT [facility] Comment: ----ADDITIONAL INFORMATION---- This test was developed and its performance characteristics determined by [facility] in a manner consistent with CLIA requirements. This test has not been cleared or approved by the U.S. Food and Drug Administration. Blood (Blood, Venous) 08/24/2023 4:14 AM CDT 08/24/2023 8:57 AM CDT Torito Ma M.D. LAB BLOOD NON ADD-ON Performing Organization Address [facility] Co de Phone Number [facility] [address] [place] [address] [facility] [address] [place] [address] [place] [address] * Ascorbic Acid (Vitamin C) (08/24/2023 4:13 AM CDT) Ascorbic Acid, P 0.6 0.4 - 2.0 mg/dL 08/27/2023 4:30 AM CDT [facility] Comment: ----ADDITIONAL INFORMATION---- This test was developed and its performance characteristics determined by [facility] in a manner consistent with CLIA requirements. This test has not been cleared or approved by the U.S. Food and Drug Administration. Blood (Blood, Venous) 08/24/2023 4:13 AM CDT 08/26/2023 3:07 PM CDT Torito Ma M.D. LAB BLOOD NON ADD-ON [facility] [place] [address] [place] [address] [facility] [address] [place] [address] [place] [address] * (ABNORMAL) Lipid Panel (08/23/2023 3:53 PM CDT) Pathologist [facility] Triglycerides 101 mg/dL 08/23/2023 4:59 PM CDT [...] CDT Torito Ma M.D. LAB BLOOD ADD-ON [facility] [address] [place] [address], [facility] [address] [place] [address] * BI Breast Screening Bilateral (05/30/2016 9:29 AM FRAME AND SCRAP CRUSHER) Anatomical Region Laterality Modality Breast Bilateral Mammography 05/30/2016 9:29 AM FRAME AND SCRAP CRUSHER Impressions 05/30/2016 11:16 AM FRAME AND SCRAP CRUSHER Negative. RECOMMENDATION: Annual screening mammography. BI-RADS ASSESSMENT: 1: Negative. LETTER: L1/2S Electronically signed by: ?? Dong Byrne MD [id number] 30-May-2016 11:16 Narrative 05/30/2016 11:16 AM FRAME AND SCRAP CRUSHER 30-May-2016 09:29:00 ??Exam: Mammo Screen Bilat Indications: [...] L1/2S Electronically signed by: Dong Byrne MD [id number] 30-May-2016 11:16 Ruth Velez M.D. IMG BI PROCEDURES * Colonoscopy (02/15/2015 2:43 PM CDT) 02/15/2015 2:43 PM CDT Daya Andujar M.D. GI PROCEDURE ORDERAB [facility] [address] [place], [place] [address] from Last 3 Months or Most Recently Relevant to Health Maintenance
--- OUTSIDE RECORDS SUMMARY | 2023-11-23 13:21 | XMS_ITS | Encounter Summary ---
Author Organization [facility] Address [address] [place] [address] Care Team Providers Care Academic Records Specialist Name Role Phone Elsewhere, Pcp Primary Care Provider Unavailabl e Encounter Details Date Type Department Care Team (Late st Contact Info) Description 09/24/2023 Orders Only [facility] [address] [place] [phone] Fatemeh Newman M.D., M.H.A. [address] [place] [phone] Cholecystitis (Primary Dx) Social History Tobacco Use Types Packs/Day Years Used Date Smoking Tobacco: Former Cigarettes Smokeless Tobacco: Never Alcohol Use Standard Drinks/Week Comments Not Currently 0 (1 standard drink = 0.6 oz pur e alcohol) [facility] Utilities Answer Date Recorded In the past 12 months has [facility] [employer], gas, oil, or water [employer] threatened to shut off services in your [...] your living situation today? I have a [facility] place to live 09/19/2023 Sex and Gender Information Value Date Recorded Sex Assigned at Female 05/14/2018 2:49 PM CHANGE ROOM ATTENDANT Gender Identity Female 05/14/2018 2:49 PM CHANGE ROOM ATTENDANT Sexual Orientation Straight 05/14/2018 2: 49 PM CHANGE ROOM ATTENDANT documented as of this encounter Plan of Treatment Upcoming Encounters Date Type Department Care Team (Latest Contact Info) Description 01/03/2024 2:15 PM CDT Clinical Communication Virtual Review in [place], [place] [address] [place] [phone] 01/07/2024 3:00 PM CDT Office Visit Division of Gastroenterology in [place], [place] [address] [place] [phone] Hank Garner Jr., M.D. [address] [place] [phone] documented as of this encounter Visit Diagnoses Diagnosis Cholecystitis- Primary documented in this encounter Additional Health Concerns Infection Onset Date Last Indicated Resolved Time Protective Environment 09/03/2022 09/03/2022 C. difficile 09/21/2023 09/21/2023 10/19/2023 5:38 AM CDT Assessment Noted Time PHQ-9 Depression Total Score: 0 07/11/19 17 12:26 PM CHANGE ROOM ATTENDANT documented as of this encounter Care Teams Academic Records Specialist Relationship Specialty Start Date End Date Elsewhere, Pcp PCP - General Internal Medicine 05/08/23 [facility] Laboratory Medicine 04/07/20 documented as of this encounter
--- OUTSIDE RECORDS SUMMARY | 2023-11-23 13:21 | XMS_ITS | Encounter Summary ---
Author Organization [facility] Address [address] [place] [id number] Care Team Providers Care Wire Mill Rover Name Role Phone Elsewhere, Pcp Primary Care Provider Unavailabl e Reason for Visit * Reason Onset Date Comments Follow-up Orders 09/26/2023 Encounter Details Date Type Department Care Team (Latest Contact Info) Description 09/26/2023 Clinical Communication [facility] [place], [place] [address] [place] [phone] Kayli Llanes APRN, C.N.P., D.N.P. [address] [place] [phone] Follow-up Orders Social History Tobacco Use Types Packs/Day Years Used Date Smoking Tobacco: Former Cigarettes Smokeless Tobacco: Never Alcohol Use Standard Drinks/Week Comments Not Currently 0 (1 standard drink = 0.6 oz pur e alcohol) [facility] Utilities Answer Date Recorded In the past 12 months has [facility] [employer], gas, oil, or water [employer] threatened to shut off services in your [...] your living situation today? I have a [facility] place to live 09/19/2023 Sex and Gender Information Value Date Recorded Sex Assigned at Female 05/14/2018 2:49 PM STAFF DEVELOPMENT EDUCATOR Gender Identity Female 05/14/2018 2:49 PM STAFF DEVELOPMENT EDUCATOR Sexual Orientation Straight 05/14/2018 2: 49 PM STAFF DEVELOPMENT EDUCATOR documented as of this encounter Plan of Treatment Upcoming Encounters Date Type Department Care Team (Latest Contact Info) Description 01/03/2024 2:15 PM CDT Clinical Communication Virtual Review in [place], [place] 200 [place] [phone] 01/07/2024 3:00 PM CDT Office Visit Division of Gastroenterology in [place], [place] [address] [place] [phone] Hank Garner Jr., M.D. [address] [place] [phone] documented as of this encounter Visit Diagnoses Diagnosis Failure Renal Acute (Acute Kidney Injury) (HCC)- Primary documented in this encounter Additional Health Concerns Infection Onset Date Last Indicated Resolved Time Protective Environment 09/03/2022 09/03/2022 C. difficile 09/21/2023 09/21/2023 10/19/2023 5:38 AM CDT Assessment Noted Time PHQ-9 Depression Total Score: 0 07/11/19 17 12:26 PM STAFF DEVELOPMENT EDUCATOR documented as of this encounter Care Teams Wire Mill Rover Relationship Specialty Start Date End Date Elsewhere, Pcp PCP - General Internal Medicine 05/08/23 [facility] Laboratory Medicine 04/07/20 documented as of this encounter
--- OUTSIDE RECORDS SUMMARY | 2023-11-23 13:21 | XMS_ITS | Encounter Summary ---
Author Organization [facility] Address [address] [place] [id number] Care Team Providers Care Lubrication Servicer Name Role Phone Elsewhere, Pcp Primary Care Provider Unavailabl e Reason for Referral * Outpatient (Routine) - Authorized Specialty Diagnoses / Procedures Referred By Contact Referred To Contact Gastroenterology and Hepatology Diagnoses unknown Bee Bermudez M.D. [address] [place] [phone] [facility] Referral ID Status Reason Start Date Expiration Date V isits Requested Visits Authorized [id number] Authorized 10/17/2023 04/17/2025 1 1 Encounter Details Date Type Department Care Team (Latest Contact Info) Description 10/16/2023 Clinical Communication Division of Gastroenterology in [place], [place] [address] [place] [phone] Bee Bermudez M.D. [address] [place] [phone] Social History Tobacco Use Types Packs/Day Years Used Date Smoking Tobacco: Former Cigarettes Smokeless Tobacco: Never Alcohol Use Standard Drinks/Week Comments Not Currently 0 (1 standard drink = 0.6 oz pur e alcohol) [facility] Utilities Answer Date Recorded In the past 12 months has [employer] electric, gas, oil, or water company threatened [...] your living situation today? 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 [address] [place] [phone] Scheduled Referrals Name Type Priority Associated Diagnoses Order Schedule Gastroenterology and Hepatology office visit (clinic) Outpatient Referral Routine Expected: 10/17/2023, Expires: 01/16/2025 documented as of this encounter Visit Diagnoses Not on filedocumented in this encounter Additional Health Concerns Infection Onset Date Last Indicated Resolved Time Protective Environment 09/03/2022 09/03/2022 C. difficile 09/21/2023 09/21/2023 10/19/2023 5:38 AM CDT Assessment Noted Time PHQ-9 Depression Total Score: 0 07/11/19 17 12:26 PM [employer] documented as of this encounter Care Teams Lubrication Servicer Relationship Specialty Start Date End Date Elsewhere, Pcp PCP - General Internal Medicine 05/08/23 [facility] Laboratory Medicine 04/07/20 documented as of this encounter
--- OUTSIDE RECORDS SUMMARY | 2023-11-23 13:21 | XMS_ITS | Encounter Summary ---
Author Organization [facility] Address [address] [place] [id number] Care Team Providers Care Clearance Cutter Name Role Phone Elsewhere, Pcp Primary Care Provider Unavailabl e Reason for Visit * Reason Comments Chest Pain * Auth/Cert (Routine) Specialty Diagnoses / Procedures Referred By Contac t Referred To Contact Diagnoses Effusion Pericardial Acute (HCC) Failure Renal Acute (Acute Kidney Injury) (HCC) Pain Chest Prolonged QT Interval Procedures ADMIT TO INPATIENT Referral ID Status Reason Start Date Expiration Date Visits Re quested Visits Authorized [id number] 1 1 Encounter Details Date Type Department Care Team (Latest Contact Info) Description 09/19/2023 2:59 PM CDT - 09/24/2023 6:06 PM CDT Hospital Encounter [facility], [facility], [facility], Third Floor [address] [place] [phone] Sakina Anderson APRN, C.N.P., D.N.P. [address] [place] [phone] Kayli Carpio M.D. [address] [place] [phone] Fatemeh Newman M.D., M.H.A. [address] [place] [phone] Failure Renal Acute (Acute Kidney Injury) (HCC) (Primary Dx); Effusion Pericardial Acute (HCC); Prolonged QT Interval; Pain Chest; Effusion Pleural; Decline Functional Status [R53.81] Discharge Disposition: [place] [facility] Tobacco Use Types Packs/Day Years Used Date Smoking Tobacco: Former Cigarettes Smokeless Tobacco: Never Alcohol Use Standard Drinks/Week Comments Not Currently 0 (1 standard drink = 0.6 oz pur e alcohol) [facility] Utilities Answer Date Recorded In the past 12 months has e [employer], [employer], oil, or water [employer] threatened to shut off services in your [...] your living situation today? 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 - 09/24/2023 4:37 PM CDT DISCHARGE SUMMARY BRIEF OVERVIEW Discharge Hospital: [facility] Discharge Provider: Fatemeh Newman M.D., M.H.A. Discharge Provider Team: Hospital Internal Medicine ([facility]) - [facility] Medicine 14 ([facility]) Primary Care Providers: Elsewhere, Pcp (General) No address on file PCP Phone Number: None PCP Fax Number: None Admission Date: 09/19/2023 Discharge Date: 09/24/23 PRINCIPAL DIAGNOSIS Failure Renal Acute (Acute Kidney Injury) (HCC) SECONDARY DIAGNOSES Principal Problem: Failure Renal Acute (Acute Kidney Injury) (HCC) Active Problems: Abdominal Aortic Aneurysm Without Rupture Unspecified (HCC) Hypertensive Chronic Kidney Disease With Stage 1 Through Stage 4 Chronic Kidney Disease, Or Unspecified Chronic Kidney Disease Transplant Renal (HCC) Immunodeficiency Due To Drugs (HCC) Coronary Artery Disease Without Angina Pectoris Malnutrition Severe Protein-Calorie (HCC) Resolved Problems: * No resolved hospital problems. * DISCHARGE DISPOSITION [place] [facility] [place] ACTIVE ISSUES REQUIRING FOLLOW UP --PCP: Recommend recheck B12 within 3 months to confirm improvement with oral repletion. May require parenteral replacement. NUTRITION Summary provided by: Gita Sanders RDN, NIYA Date completed: 09/20/2023 Nutrition Discharge Plan: Patient was assessed as severely malnourished during this hospitalization based upon the ASPEN criteria. Outpatient follow-up: Home Enteral Nutrition follow-up regarding malnutrition and tube feeds. Oral diet: As tolerated. Feeding tube information: Gastric 14 [place] [facility] ELDER internal balloon, no distal tubing Who placed the tube: [facility] Date of tube placement: August 21, 2023 To maintain enteral access the patient's feeding tube should be replaced at regular intervals. Recommended replacement for feeding tube with internal balloon is every 3-5 months. Tube feeding program: Formula: Peptamen 1.5 Feeding method: Intermittent gravity Feeding schedule/goal: 3 cans/day (1-1-1) Water flushes: 30 mL before and after each feeding Vitamin/mineral supplementation: Formula at goal volume provides less than 100% of the Recommended Daily Intake for vitamins and minerals. One dose daily liquid multivitamin with minerals recommendedfor additional supplementation. This program provides 1125 calories and 51 grams protein per day. Monitor your weight 1-2 time(s) per week. Anthropometrics: Weight: 36.9 kg Height: 165.1 cm ELW: 57 Kg BMI (Calculated): 13.5 kg/m?? Estimated Needs: Total Calorie Needs: 7804-7029 calories/day Method to Estimate Energy Needs: kcal/kg (30-35 kcal/kg) Weight Used for Equation Calculations: 36.9 kg Total Protein Needs: 37 - 48 grams/day Method to Estimate Protein Needs (g/kg): 1 - 1.3 gm/kg Weight Used to Calculate Protein Needs (Kg): 36.9 kg Your Durable Medical Equipment (DME)/Infusion company for tube feeding supplies is: [employer] Infusion Services: .. Please contact this DME company with questions about delivery or re-ordering your supplies and formula. OUTPATIENT FOLLOW UP Scheduled Appointments 11/08/2023 12:45 PM RST INTAKE VISIT POD B 02 Admitting/Central Scheduling 11/12/2023 7:45 AM RM 203 EUS ERCP [facility] 2 GI Gastroenterology and Hepatology 11/12/2023 3:00 PM Gracia Payton M.D. Gastroenterology and Hepatology 11/21/2023 11:30 AM TERRELL [facility] Radiology For appointment details refer to your Patient Appointment Guide. TEST RESULTS PENDING AT DISCHARGE Pending Labs Order Current Status Type and Screen (with Reflex Antibody ID) Preliminary result DETAILS OF HOSPITAL STAY REASON FOR ADMISSION Failure Renal Acute (Acute Kidney Injury) (HCC) HOSPITAL COURSE Ms. Jacqueline Glavan is a 68 y.o. woman who presented to the ED on 09/18 for persistent abdominal pain, nausea, and poor appetite. Medical comorbidities include ESRD s/p renal transplant x2 (, , on [place], CellCept, Pred), CAD s/p PCI ('06), Afib (not on AC), AAA, HTN, chronic hyponatremia,osteoporosis. She was recently admitted 08/19-08/29 for acute cholecystitis and is s/p percutaneous cholecystostomy tube due to poor surgical candidacy. That hospital course was complicated by ATN, acute hypoxic respiratory failure in the setting of pleural effusion requiring home going oxygen (1 L). Upon arrival to the ED patient was found to have sinus bradycardia but otherwise hemodynamically stable and afebrile. Initial lab evaluation notable for progression of PEDRITO (Cr 2.3, up from baseline of 1.3), Na 130, WBC 13 w/neutrophilia, CRP 141, Alk Phos 115, lactate 0.6. ECG demonstrated sinus bra dycardia with increased T-wave inversion in inferior leads, although no ST elevations meeting criteria for STEMI. Initial troponin 106, downtrended to 92 at two hours. TTE in the ED demonstrated small circumferential pericardial effusion, preserved EF, no RWA. Cross-sectional imaging not obtained, however CT A/P yesterday demonstrated small free pelvic fluid without evidence of acute intra-abdominal or intrapelvic process, cholecystostomy tube in correct position, thickened and slightly hyperdense pericardium (Radiologist recommended consideration of pericarditis if clinical picture fits). The patient was admitted to the medicine 14 service for ongoing evaluation and management of PEDRITO and abdominal pain. Over the first 24 hours after ED presentation, patient received 2.5 L crystalloid bolus due to suspected dehydration and prerenal PEDRITO, however patient's creatinine and Cystatin trend continued worsening over the next several days. Her fluid exam remain challenging, and on 09/20 she received 1 unit PRBC (HGB 6.8), as well as 12.5 g of 25% albumin. That evening she began expressing increased shortness of breath (remained on 4 L NC) and bedside ultrasound demonstrated new left pleural effusion along with increased size of right pleural effusion. The following day diuresis was initiated (Bumex 2 mg IV) and Interventional Pulmonary performed right-sided thoracentesis with 825 cc fluid removed. Creatinine slowly improved to 2.5 on discharge with hope for further improvement. Nephrology plans continued outpatient follow-up. She was transitioned back to Bumex 2mg daily with plans for further outpatient titration. On 09/20 a stool pathogen panel was obtained due to loose stools and persistent abdominal symptoms,and was positive for C diff. She was started on a 10 day course of oral vancomycin 125 mg QID, and after discussion with both ID and Nephrology was decided to continue her home CellCept dosing. Pericarditis was entertained as a cause for her pericardial imaging findings and elevated CRP. Her prednisone was increased. Ultimately, Cardiology favored that this was not likely and prednisone wasbrought back to home dosing. She does not require Cardiology or Pericardial Clinic followup at thispoint. If her symptoms do recur with decrease of the prednisone or her inflammatory markers again be gin to rise, Cardiology does recommend obtaining a cardiac MRI in either the inpatient or outpatient setting to further assess the pericardium, and Cardiology Clinic followup could be scheduled at that point. MEDICATIONS CHANGED DURING THIS HOSPITAL STAY Medications stopped: hold Imodium and Lomotil Medications changed: Bumex (reduced to 2mg daily with plans for Nephrology follow-up) Medications added: vancomycin through 10/01/2023 CONSULTS ORDERED DURING THIS ADMISSION IP CONSULT TO NEPHROLOGY IP CONSULT TO CARDIOLOGY IP CONSULT TO DIETITIAN IP CONSULT TO POLICY AND PLANNING MANAGER WOUND CARE IP CONSULT TO DIETITIAN IP CONSULT TO CARE MANAGEMENT IP CONSULT TO CARE MANAGEMENT CONDITION AT DISCHARGE Improved I saw and evaluated Mrs. Jacqueline Galvan today and provided counseling [id number] at bedside. I personally spent a total of greater than 30 minutes in counseling and coordination of care as described above to facilitate the hospital discharge. Discharge instructions were provided to the patient and caregiver(s). documented in this encounter Discharge Instructions * Discharge Instructions* Angeles Simmons - 09/20/2023 7:36 AM CDT You were discharged from the [place] [address] ([facility]) Service. Please identify this service name if you call with questions after hospitalization. Take a copy of this after visit summary to your appointment(s). [place], [place] September --2:20pm - Hospital Follow-Up with Dr. Moreira, primary care provider, at [facility] You may have outpatient appointments at [facility] that changed during your hospitalization. Referto your [facility] Patient Appointment Guide (PAG) for the most current schedule of appointments and detailed instructions of tests/procedures. Call [phone], if you did not receive an PAG or need to CANCEL any [facility] appointment(s). * Discharge Instr - Diet* Gita Sanders RDN, LD - 09/20/2023 11:54 AM CDT NUTRITION Summary provided by: Gita Sanders RDN, NIYA Date completed: 09/20/2023 Tube feeding (Enteral) nutrition plan: 2-3 cartons of Peptamen 1.5 per day, based on oral intake. Oral diet: As tolerated. Feeding tube information: Gastric 14 [place] [facility] internal balloon, no distal tubing Who placed the tube: [facility] Date of tube placement: August 21, 2023 To maintain enteral access the patient's feeding tube should be replaced at regular intervals. Recommended replacement for feeding tube with internal balloon is every 3-5 months. Tube feeding program: Formula: Peptamen 1.5 Feeding method: Intermittent gravity Feeding schedule/goal: 3 cans/day (1-1-1) Water flushes: 30 mL before and after each feeding Vitamin/mineral supplementation: Formula at goal volume provides less than 100% of the Recommended Daily Intake for vitamins and minerals. One dose daily liquid multivitamin with minerals recommendedfor additional supplementation. This program provides 1125 calories and 51 grams protein per day. Monitor your weight 1-2 time(s) per week. Anthropometrics: Weight: 36.9 kg Height: 165.1 cm ELW: 57 Kg BMI (Calculated): 13.5 kg/m?? Estimated Needs: Total Calorie Needs: 3426-5943 calories/day Method to Estimate Energy Needs: kcal/kg (30-35 kcal/kg) Weight Used for Equation Calculations: 36.9 kg Total Protein Needs: 37 - 48 grams/day Method to Estimate Protein Needs (g/kg): 1 - 1.3 gm/kg Weight Used to Calculate Protein Needs (Kg): 36.9 kg Your Durable Medical Equipment (DME)/Infusion company for tube feeding supplies is: [employer] Infusion Services: .. Please contact this DME company with questions about delivery or re-ordering your supplies and formula. * Attachments The following attachments cannot be sent through [facility] Everywhere. * Vitamin B-12 (Cyanocobalamin) (By mouth) (Guamanian) * Vancomycin (By mouth) (Guamanian) documented in this encounter Medications at Time of Discharge Medication Sig Dispensed Refills Start Date End Date bumetanide (BUMEX) 2 mg tablet Take 1 tablet (2 mg total) by mouth daily. 09/24/2023 diphenoxylate-atropine (LOMOTIL) 2.5-0.025 mg/5 mL liquid Take 10 mL by mouth 4 (four) times a day as needed for diarrhea. 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 Do not break, cut, or open capsules. 360 capsule 3 09/06/2023 09/05/2024 pantoprazole (PROTONIX) 40 mg EC tablet Take 1 tablet (40 mg total) by mouth every morning before breakfast. 30 tablet 2 09/24/2023 12/23/2023 predniSONE (DELTASONE) 5 mg tabletIndications:Salter splant Renal (HCC),High Risk Medication TAKE 1 TABLET(5 MG) BY MOUTH DAILY 90 tablet 3 07/10/2023 tacrolimus (PROGRAF) 1 mg capsule Take 1 capsule (1 mg total) by mouth 2 (two) times a day. 180 capsule 3 09/12/2023 09/11/2024 acetaminophen (TYLENOL) 500 mg tablet Take 2 tablets (1,000 mg total) by mouth 2 (two) times a day. 08/30/2023 amiodarone (PACERONE) 200 mg tablet Take 1 tablet (200 mg total) by mouth daily. 90 tablet 08/30/2023 11/28/2023 amLODIPine (NORVASC) 10 mg tablet Take 1 tablet (10 mg total) by mouth daily. 90 tablet 3 08/30/2023 08/29/2024 atorvastatin (LIPITOR) 80 mg tablet Take 1 tablet (80 mg total) by mouth at bedtime. 90 tablet 3 08/30/2023 08/29/2024 cholecalciferol, vitamin D3, 25 mcg (1,000 Unit) tablet Take 1 tablet (25 mcg total) by mouth daily. 08/30/2023 08/29/2024 collagenase (SANTYL) 250 unit/gram ointment Apply 1 Application topically daily. Apply to coccyx. 30 g 2 07/17/2023 cyanocobalamin (VITAMIN B12) 1,000 mcg tablet Take 1 tablet (1,000 mcg total) by mouth daily. 90 tablet 3 09/24/2023 DME OxygenIndications:Acut e Respiratory Failure With Hypoxia (HCC) DME Order - for details see Order Report 1 each 08/30/2023 icuouk-fazzsivl-vmsdql e (CREON) 36,000-114,000-180,[address] capsule Take 36,000 Units of lipase by mouth 4 (four) times a day. ighqzlwyimgs-alvf-JE-C a-minerals (THERAPEUTIC-M) 400 mcg (folic acid) per tablet Take 1 tablet by mouth daily. 08/30/2023 ondansetron ODT (ZOFRAN-ODT) 4 mg disintegrating tablet Dissolve 1 tablet (4 mg total) in the mouth every 6 (six) hours as needed for nausea or vomiting. 20 tablet 08/30/2023 selenium 50 mcg tablet Take 3 tablets (150 mcg total) by mouth daily. 270 tablet 08/30/2023 11/28/2023 sodium chloride 0.9 % injection 5 mL 2 (two) times a day. 900 mL 3 08/30/2023 08/29/2024 vancomycin (VANCOCIN) 125 mg capsuleIndications:C. difficile infection Take 1 capsule (125 mg total) by mouth 4 (four) times a day for 29 doses Indications: C. difficile infection. 29 capsule 09/24/2023 10/02/2023 zinc sulfate (ZINCATE) 220 (50 mg zinc) capsule Take 1 capsule (220 mg total) by mouth 2 (two) times a day with meals. 60 capsule 08/30/2023 09/29/2023 documented as of this encounter Progress Notes * Naif Borjas, P.T.A. - 09/24/2023 3:31 PM CDT Physical Therapy Inpatient Treatment SUBJECTIVE Patient's Name: Jacqueline Galvan Referring/Attending Provider: Fatemeh Newman M.D. Reason for Referral: Physical Therapy Evaluate and Treat History of Present Illness: Jacqueline Galvan is a 68 y.o. female who was admitted to [facility] in [place] on 09/19/2023 for Effusion Pericardial Acute (HCC) [I30.9] Failure Renal Acute (Acute Kidney Injury) (HCC) [N17.9] Pain Chest [R07.9] Prolonged QT Interval [R94.31] Precautions Other Precautions: respiratory, fall, aspiration Pain Assessment: Pain not reported during session. However reports some abdominal discomfort Patient/Caregiver Goals: Return to home, Return to prior level of function, and Return to highest level of function Subjective Comments: Patient agreed to session. OBJECTIVE Jacqueline was very pleasant with excellent participation throughout session. Vital Signs Vitals stable per chart review. Susie Modified Dyspnea Scale: 3 - Moderate Outcome Measures: AM-PAC Inpatient Short Form: AM-PAC Basic Mobility (V.2) How much help from another person do you currently need???If the patient hasn't done an activity recently, how much help from another person do you think he/she would needif he/she tried? 1. Turning from your back to your side while in a flat bed without using bedrails?: None 2. Moving from lying on your back to sitting on the side of a flat bed without using bedrails?: None 3. Moving to and from a bed to a chair (including a wheelchair)?: None 4. Standing up from a chair using your arms (e.g., wheelchair, or bedside chair)?: None 5. To walk in hospital room?: None 6. Climbing 3-5 steps with a railing?: None [facility] Basic Mobility (V.2) Raw Score: 24 [facility] Basic Mobility (V.2) Standardized Score: 57.68 Interpretation: Based on scoring guidelines using the raw score value: Those going to home had an average score at or above 18 Those going to facility had an average score at or below 17 Clinicians answer the [facility] Inpatient Short Form based on observed patient activity and/or clinical judgement (ie. patient can be scored without physically performing each activity) Therapeutic Interventions: SUPINE TO SIT: Assistance Level: Independent Device: none Assistance/Cueing: no cueing required SIT TO SUPINE: Assistance Level: Independent Device: none Assistance/Cueing: no cueing required SIT TO STAND: Assistance Level: Modified independent Device: Front wheeled walker Surface: Bed from multiple heights Assistance/Cueing: no cueing required STAND TO SIT: Modified independent Assistance Level: Device: Front wheeled walker Surface: Bed from multiple heights Assistance/Cueing: no cueing required GAIT: Distance: 70.12 meters Assistance Level: Modified Independent Device: Front wheeled walker Quality: Occasional abdominal guarding due to abdominal discomfort, otherwise no significant gait deviations noted. Assistance/Cueing:no cueing required Comments: Tolerated ambulation well with no adverse effects noted. STAIRS: steps 5 with right rail to simulate home setup Assistance Level: Modified independent Navigation Pattern: Good Ascending: Step to, forward, and leading with right Descending: step to, forward and leading with left Intervention provided: This health technical writer reviewed proper technique and sequencing prior to patient completing. Comments: Tolerated stair negotiation well and safe with no adverse effects noted. THERAPEUTIC EXERCISE: Seated Therapeutic Exercise: Side: bilateral, lower extremity(ies) Mode: active range of motion Exercises: Long arc quads, Marching, Seated heel raises, Seated toe raises, Hip adduction, and Hip abduction Repetitions: 10 Assist/cueing: Handout provided Standing Therapeutic Exercise: Side: bilateral, lower extremity(ies) Mode: active range of motion Exercises: Hip abduction, Hip extension, Heel raises, Mini squats, Marching, Sit to/from stands, and hamstring curls Repetitions: 10 Assist/cueing: Handout provided Education: Education provided this session: Reviewed home setup, fall prevention/recovery, car transfers, continuation of home exercise program, continuation of walking program, and energy conservation techniques as needed in preparation for home discharge. Jacqueline has a good understanding of these concepts and has no questions or concerns discharging home when medically cleared. Handouts provided today: Exercises for the Legs (Standing) ([id number]), Exercises for the Legs (Sitting) ([id number]) The patient's status was discussed and the following coordination of care occurred with the RN, PT,and Primary Service Patient was left in bed at end of session with call light in reach, all needs met and questions answered. All tubes and lines intact pre/post session. Assessment Discharge Therapy Needs - PT: No further skilled therapy Equipment Recommended - PT: Front-wheeled walker Patient owns. Barriers to Discharge Home: None From a physical therapy perspective, the level of care above has been recommended for Ms. Galvan after hospital discharge. This level of care is based on her functional abilities during today's session. This may change throughout the hospital course and will be updated as appropriate. Clinical Impression: Today, Jacqueline was able to demonstrate and complete all tasks with modified independence/independently with good safety awareness. She has progressed well with all acute therapy goals being achieved,and no longer requires skilled therapy services in the acute care setting. Jacqueline plans to discharge home with self-care assist of as needed. Rehab potential: Ms. Galvan has Good potential to achieve established physical therapy goals within the time frame outlined below. Progress: All PT goals achieved Plan PT Plan Comments: Patient has progressed well and has achieved all acute therapy goals and no longer requires skilled therapy services in the acute care setting. Plans to discharge home with self-care with assist of as needed. Functional Goals: PT Inpatient Goals PT Goal #1: Patient will be modified independent with supine<>sit transfers with adjustable bed features to progress towards functional independence. PT Goal #1 Status: Achieved PT Goal #2: Patient will be independent/modified independent utilizing most appropriate gait devicewith sit<>stand transfers to progress towards functional independence. PT Goal #2 Status: Achieved PT Goal #3: Patient will be modified independent utilizing most appropriate gait device ambulating a distance of 60 m to progress towards functional independence. PT Goal #3 Status: Achieved PT Goal #4: Patient will negotiate 3 standard steps with 1 rail with supervision using least restrictive assistive device to progress towards home going mobility. PT Goal #4 Status: Achieved Treatment Plan: Plan: Discontinue PT PT Inpatient Duration : Until goals are met or hospital discharge Requires Inpatient Follow-Up: No Patient agrees with the plan of care and goals. Treatment interventions may include: HEAD BUCKER Visit Trackin Billing: Time Spent with Patient Therapeutic Interventions Therapeutic Activity (min): 28 min Therapeutic Exercise (min): 11 min Time Tracking Total Timed Units (min): 39 min Total Treatment Time (min): 39 min Ferdinand Borjas P.T.A. This note is dictated using Fluency Direct. Therapist has edited note, but grammatical errors are possible. Associated attestation - Naif Baldwin P.T., NilsPMarlysTMarlys - 09/25/2023 6:57 AM CDT This therapist has reviewed all documentation and discussed the plan of care with Naif Borjas P.T.A. This therapist agrees with the plan of care developed in collaboration with the patient. The patient has progressed well with all acute therapy goals being achieved, and no longer requiresskilled therapy services in the acute care setting. Jacqueline plans to discharge home with self-care assist of as needed. No further skilled therapy needs identified at time of dismissal and the patient will be discharged from acute care physical therapy. Naif Baldwin P.T., D.P.TMarlys * Cipriano Pang M.D. - 09/24/2023 1:30 PM CDT ASSESSMENT / PLAN #1 Right upper quadrant pain, query pericarditis #2 Recent hospitalization for acute cholecystitis with prior percutaneous cholecystostomy tube and common bile duct stent placement #3 Severe malnutrition with prior PEG implantation #4 Fjlas-pu-xpxchqd renal failure in the setting of prior renal transplantation, on chronic immunosuppression with CellCept, tacrolimus, and prednisone #5 Hypertension #6 Atrial fibrillation, on amiodarone with sinus bradycardia #7 Coronary artery disease with prior percutaneous intervention in 2005 The primary team reached out regarding Mrs. Galvan today. She was diagnosed with C. difficile colitis, which they feel is the most likely culprit for the elevated inflammatory markers. We had previously discussed doing a cardiac MRI, but due to worsening acute kidney injury, we elected to defer this. We discussed steps moving forward. Ultimately, her clinical symptoms were not really consistent with pericarditis when I first met her. Her prednisone was empirically increased to 10 mg daily, and her inflammatory markers are responding, though again, this is also with treatment of her C. difficile colitis. I think that we can explain the elevated inflammatory markers by the C diff infection. At this point, I do not think there is much value for obtaining a cardiac MRI. The Nephrology Team would like to decrease her prednisone back down to her baseline of 5 mg daily. Overall, I think this is very reasonable given that we are not confident that she had pericarditis in the first place. I do not feel strongly about a significant taper given she was on chronic prednisone 5 mg daily due to her history of renal transplantation. The prednisone can be reduced to 5 mg starting tomorrow. At this time, I do not think she requires specific Cardiology or Pericardial Clinic followup at this point. If her symptoms do recur with decrease of the prednisone or her inflammatory markers again begin to rise, we would recommend obtaining a cardiac MRI in either the inpatient or outpatient setting to further assess the pericardium, and Cardiology Clinic followup could be scheduled at that point. The Cardiology Team will sign off at this time. Please page our service with any questions or concerns prior to her discharge from the hospital. Cipriano Pang M.D. CT CT Job ID: [id number]/[id number] * Fatemeh Newman M.D., M.H.A. - 09/24/2023 1:24 PM CDT SUPERVISORY NOTE I have seen and assessed the patient with the medical team and helped to formulate the plan of care. I have personally reviewed the relevant data in the patient's medical chart. I agree with the findings, assessment and plan as written in the note by Dr. Lopez. #1 Acute kidney injury in setting of renal transplant (x2, last 2016), possibly secondary to cardiorenal syndrome vs progression of prerenal PEDRITO related to acute C.diff infection #2 Concern for acute on chronic HFpEF #3 Positional chest pain + pericardial effusion, query pericarditis #4 Acute on chronic anemia #5 Recent acute cholecystitis s/p percutaneous cholecystostomy tube & common bile duct stent (temporary) placement (08/20) #6 Severe malnutrition s/p PEG placement 05/17/23, c/b gastric perforation requiring ex-lap for debridement and wound vac; consider TPN #7 Chronic mesenteric ischemia with associated malnutrition #8 Immunosuppression (CellCept, Tacro, Prednisone) c/b multiple infections #9 Hyponatremia, mild #10 Hypoxemia #11 Hypertension #12 Sinus bradycardia #13 Atrial fibrillation on amiodarone #14 CAD s/p PCI ('06) Ms. Galvan continues to feel improved after diuresis. Fortunately her renal function also continues to improve, creatinine now 2.5 from a peak of 3.38. She is now back on oral diuretics. She feels she is eating well and tolerating her tube feeds. She would like to go home. We'll have her family weigh in as they are her caregivers. PT notes she is not at her functional baseline. We'll resume amlodipine today. We've started B12 replacement. We'll discuss next steps with Cardiology to determine if further inpatient evaluation for her effusion/pericarditis is needed. She may be able to discharge within the next 24 hours if a safe plan is in place. Remainder per Dr. Lopez. * Devon Akbar M.D. - 09/24/2023 11:50 AM CDT NEPHROLOGY CONSULT SERVICE - PROGRESS NOTE Hospital Day 5 SUBJECTIVE She continues to be on room air. She had 1.5 L of urine output with 2 mg of IV Bumex yesterday. Sheis already made 425 mL of urine this morning. Her creatinine continues to improve. She denies any acute concerns at this time. OBJECTIVE Admission weight: 36.9 kg Weights for the past 120 hrs (Last 3 readings): Weight 09/21/23 0500 36.9 kg 09/19/23 1945 36.9 kg I/O 09/21 0000 09/21 0000 09/22 0000 09/23 2358 Enteric (NG/OG) Tube 180 160 90 Feedings 900 1368 300 Total Intake(mL/kg) 1080 (29.3) 1528 (41.4) 390 (10.6) Urine (mL/kg/hr) 100 (0.1) 1455 (1.6) 425 (1) Other 825 Stool 0 0 Total Output 925 1455 425 Net +155 +73 -35 Unmeasured Urine Occurrence 7 x 1 x Unmeasured Stool Occurrence 3 x 1 x VITAL SIGNS Temperature: [37 ??C] 37 ??C Resp Rate: [16-24] 16 Blood Pressure: (145-183)/(55-73) 183/73 SpO2: [91 %-94 %] 94 % Pulse Rate: [49-57] 51 PHYSICAL EXAMINATION General: frail. Appears chronically ill. Cachetic. CV: No edema of lower extremities or upper extremities. Pulm: breathing comfortably on room air. 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 Galvan is a 68 year old woman with renal transplant we are following for acute kidney injury and immunosuppression management. She was admitted on 09/19/23 for symptoms of progressive RUQ-epigastric abdominal pain, nausea, emesis, diarrhea and has been found to have acute kidney injury. Her hos pitalization so far has been complicated by kcqbz-co-ipvyjml hypoxic respiratory failure, new pleural effusion, possible pericarditis, C difficile colitis, anemia requiring transfusion. Her PEDRITO seems to be due to cardiorenal physiology. Her history was consistent with volume depletion, however her respiratory status and creatinine worsened with fluids. She has been diuresed with Bumex and her respiratory status and creatinine have both improved. Her home dose of Bumex appears to be 4 mg BID. In the setting of her ongoing diarrhea from C diff, this is likely too large of a dose. We recommend to mg of p.o. Bumex once daily today. If she is to discharge, this will likely be her home dose while she has continued diarrhea. She would need close follow up with her Transplant Sales And Retail Management Recruiter to adjust the dose as needed. We will schedule this. Additionally, she remains hypertensive. We recommend restarting her amlodipine 10 mg daily. Recommendations -recommend transition to 2 mg p.o. Bumex. This dose can be followed up [facility], which we will schedule. -if she remains hospitalized, please recheck tacrolimus trough tomorrow -restart amlodipine 10 mg daily - encourage her to drink to thirst as she tolerates from a GI symptom standpoint today - strict I/O, please try and capture all urine output as able - continue home immunosuppression regimen. Tacrolimus 1 mg twice daily Mycophenolate mofetil 500 mg twice daily Prednisone 5 mg once a day -- note primary team has increased to 10 mg which we have no objection to, so long as there is clear follow up or plan in place to assess a therapeutic response and guide further steroids, rather than 10 mg indefinitely - avoid nephrotoxins as able - we will continue to follow closely This patient was seen and discussed with Nephrology fellow. Please reach out to Nephrology C resident pager with questions/concerns. * Nazanin Kincaid O.T., MOT - 09/24/2023 10:39 AM CDT Occupational Therapy [facility] Inpatient Treatment SUBJECTIVE Patient's Name: Jacqueline Galvan Referring/Attending Provider: Fatemeh Newman M.D. Reason for Referral: Occupational Therapy Evaluation and Treatment History of Present Illness: Jacqueline Galvan is a 68 y.o. female who was admitted to [facility] in [place] on 09/19/2023 for Effusion Pericardial Acute (HCC) [I30.9] Failure Renal Acute (Acute Kidney Injury) (HCC) [N17.9] Pain Chest [R07.9] Prolonged QT Interval [R94.31]. Precautions Other Precautions: respiratory, fall, aspiration, cognition? Pain Assessment: Pain not reported during session. Subjective Comments: Agreeable to therapy session. Patient greeted in bed and agreeable to therapy session. Team Communication: The patient's status was discussed and coordination of care occurred with RN OBJECTIVE Vital Signs: Vitals monitored throughout session; within normal ranges. Outcome Measures: [facility] Inpatient Short Form: Putting on and taking off regular lower body clothing?: A Little Putting on and taking off regular upper body clothing?: None Taking care of personal grooming such as brushing teeth?: A Little Bathing (including washing, rinsing, drying)?: A lot Toileting, which includes using toilet, bedpan, or urinal?: None Eating meals?: None Daily Activities Raw Score (max 24): 20 Daily Activities Standardized Score: 42.03 Interpretation: Based on scoring guidelines using the raw score value: Those going to home had an average score at or above 18 Those going to facility had an average score at or below 17 Clinicians answer the -PAC Inpatient Short Form based on observed patient activity and/or clinical judgement (ie. patient can be scored without physically performing each activity) Therapeutic Interventions: ACTIVITIES OF DAILY LIVING: GROOMING - Assist Level: Contact Guard Assist - Patient Location: Standing at sink - Activity: Washing face, Washing hands - Therapist Delivery: assessed, facilitated - Assist/Cues: verbal for technique LOWER BODY DRESSING - Assist Level: Contact Guard Assist - Patient Location: Standing, Toilet - LB Dressing Item: socks, incontinent brief - Therapist Delivery: assessed, instructed, facilitated - Assist/Cues: verbal for sequencing TOILETING - Assist Level: Contact Guard Assist, Minimal Assist - Patient Location: Toilet - Activity: clothing management, pericare - Therapist Delivery: assessed, instructed, facilitated - Assist/Cues: verbal for technique, proper hand placement - min a for thoroughness BED MOBILITY: SUPINE to SIT - Assist Level: Supervision/Set-up - Device: use of bed rail, head of bed elevated - Therapist Delivery: assessed, instructed - Assist/Cues: verbal for proper hand placement SIT to SUPINE - Assist Level: Minimal Assist - Device: use of bed rail - Therapist Delivery: assessed, assisted, facilitated - Assist/Cues: manual for lower extremity support FUNCTIONAL TRANSFERS: SIT to STAND - Assist Level: Contact Guard Assist - Equipment: front wheeled walker and gait belt - Surface: Bed - Therapist Delivery: assessed, facilitated - Assist/Cues: verbal for proper hand placement STAND to SIT - Assist Level: Contact Guard Assist - Equipment: front wheeled walker and gait belt - Surface: Bed - Therapist Delivery: assessed, facilitated - Assist/Cues: verbal for proper hand placement, proper leg placement TRANSFER - Assist Level: Contact Guard Assist - Equipment: front wheeled walker and gait belt - Approach: To and From, Ambulating - Surface: Toilet - Therapist Delivery: assessed, instructed, facilitated - Assist/Cues: verbal for proper hand placement FUNCTIONAL MOBILITY: In-room mobility performed with contact guard assistance and front wheeled walker and gait belt Patient was left in bed with bed alarm on at end of session with call light in reach, all needs metand questions answered. Assessment Discharge Therapy Needs - OT: Ongoing skilled occupational therapy Skilled therapy can include occupational therapy provided in home health, outpatient or post-acute facility. The location of these services is determined by patient's care team in partnership with patient/family. Barriers to Discharge Home: Current functional status, Fall risk, Safety concerns Recommended Adaptive Equipment - OT: Shower chair with back, Grab bar(s) in shower, Grab bar(s) by toilet, Toilet safety frame, Dressing aids Level of Care Needed - OT: Assistance with toilet/shower transfers, Assistance with showering/bathing, Assistance with meal preparation, Assistance with transportation, Assistance with housekeeping, Assistance with shopping, Physical assistance needed Clinical Impression: Patient remains limited by decreased strength, balance, activity tolerance, and safety awareness. As a result she is requiring increased time, effort, and assistance to complete ADLs. Patient is not at functional baseline, skilled occupational therapy in the acute setting continues to be medically necessary to maximize independence, safety, and quality of life. Plan OT Plan Comments: Next session: cognition screen, standing grooming tasks, energy conservation techniques, UE exercises Functional Goals: OT Goal #1: Patient will complete toileting task and toilet transfer with modified independence to increase patient's functional independence by discharge. OT Goal #1 Status: Progressing OT Goal #2: Patient will complete standing/seated grooming task at the sink side with supervision to increase patient's functional independence by discharge. OT Goal #2 Status: Progressing OT Goal #3: Patient will be able to verbalize understanding and recall at least 3 energy conservation techniques to increase ease and safety in performing self- care tasks and mobility in home environment. OT Goal #3 Status: Slowly progressing Progress: Progressing toward goals Rehab potential: Ms. Galvan has good potential to achieve established occupational therapy goals within the time frame outlined below. OT Frequency: OT Amount: 1 visit per day OT Frequency: 3 times per week OT Inpatient Duration : Until goals are met or hospital discharge Requires Inpatient OT Follow-Up: Yes OT - Next Inpatient Appointment: 09/25/23 Plan: Continue with current plan Treatment interventions may include: Treatment Interventions: Therapeutic exercise, Therapeutic functional activity, Self-care/home management, Cognitive skills training Occupational Therapy Attestation Statement: Patient agrees with the plan of care and goals. Billing: Time Spent with Patient Therapeutic Interventions Home Management Training (min): 28 min Time Tracking Total Timed Units (min): 28 min Total Treatment Time (min): 28 min Nazanin Kincaid O.T., MOT * Meghan Tam, RDN, LD - 09/23/2023 2:16 PM CDT Nutrition Care Plan Follow Up Clinical Nutrition continues to follow patient for assessment of nutritional status and tube feeding recommendations/management ASSESSMENT Current Nutrition (since admission): RDN met with pt today. Pt reports tube feeds have been going fine. She had no complaints. She received 100% of goal volume yesterday. In addition to tube feeds, pt is allowed an oral diet (CKD). She has not been eating much of anything. Reduced appetite in the setting of c.diff infection. She states she may have her bring her in some food sometime in the near future. Currently, tube feeds are meeting 100% of estimated needs. Pt had no questions or concerns related to nutrition at this time. Current nutrition orders: Current Diet Tube feeding with oral diet -Peptamen 1.5 (RTH); Feeding route: PEG/Gastrostomy; Feed options: Intermittent; Day 1 ml/feedin mL; Intermittent goal: 300 mL three times daily; Daily goal volume (mL): 900 mL starting at 09/19 1200 Adult Diet Regular; Renal (Chronic Kidney Disease) starting at 09/18 1940 Peptamen 1.5, goal of 300 mL three times daily (can start at goal). This provides 1350 calories, 61grams protein, less than 100% US Reference Dietary Intake for vitamins/minerals in 900 mL. GI Function: Last BM Date: 09/23/23, [place] Stool Chart: Type 6: Fluffy pieces with ragged edges, a mushy stool, Passing Flatus: Yes Weight since admission: Height: 165.1 cm Admission Weight: 36.9 kg (09/19/2023) Current Weight: 36.9 kg BMI (Calculated): 13.5 kg/m?? Weight change since admission: 0 kg Net IO Since Admission: 1,737 mL [09/23/23 1416] Estimated Needs: Total Calorie Needs: 2659-7735 calories/day Method to Estimate Energy Needs: kcal/kg (30-35 kcal/kg) Weight Used for Equation Calculations: 36.9 kg Total Protein Needs: 37 - 48 grams/day Method to Estimate Protein Needs (g/kg): 1 - 1.3 gm/kg Weight Used to Calculate Protein Needs (Kg): 36.9 kg Nutrition Diagnosis: Inadequate oral intake related to abdominal pain and nausea as evidenced by weight loss PLAN Nutrition Intervention: Increase nutrient intake with small, frequent meals and/or snacks, Vitamin and mineral supplements, Enteral nutrition, Collaboration and referral of nutrition care Nutrition parameter to monitor: Meals/Supplement Intake, Enteral, Pertinent Labs, Weight Status, Nausea/Vomiting/Diarrhea ASPEN Criteria Malnutrition Status: Severe Malnutrition Recommendations: No changes at this time; continue current nutrition orders Clinical Nutrition will continue to follow. For questions about patient's nutritional care please contact pager [phone] on weekdays 07:30-16:00 or [phone] on weekends/holidays. * Devon Akbar M.D. - 09/23/2023 12:58 PM CDT NEPHROLOGY CONSULT SERVICE - PROGRESS NOTE Hospital Day 4 SUBJECTIVE Her oxygen requirement has improved today. She is now on room air. She received 2 mg of IV Bumex yesterday and made 100 mL of urine that was charted, however, she had some episodes of incontinence. She also had 900 cc removed with thoracentesis. She was started on oral vancomycin for C diff infection. OBJECTIVE Admission weight: 36.9 kg Weights for the past 120 hrs (Last 3 readings): Weight 09/21/23 0500 36.9 kg 09/19/23 1945 36.9 kg I/O 09/21 0000 09/21 2359 09/22 0000 09/22 2359 Enteric (NG/OG) Tube 180 90 Feedings 900 600 Total Intake(mL/kg) 1080 (29.3) 690 (18.7) Urine (mL/kg/hr) 100 (0.1) 650 (1.4) Other 825 Stool 0 Total Output 925 650 Net +155 +40 Unmeasured Urine Occurrence 7 x 1 x Unmeasured Stool Occurrence 2 x VITAL SIGNS Temperature: [36.8 ??C-37 ??C] 37 ??C Resp Rate: [16-22] 18 Blood Pressure: (158-173)/(65) 173/65 SpO2: [94 %] 94 % Flow Rate (L/min): [1 L/min] 1 L/min Pulse Rate: [49-55] 49 PHYSICAL EXAMINATION General: frail. Appears chronically ill. Cachetic. CV: normal rate. Regular rhythm. Normal s1 and s2. No edema of lower extremities. Pulm: breathing comfortably on room air. Breath sounds present bilaterally. 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 Galvan is a 68 year old woman with renal transplant we are following for acute kidney injury and immunosuppression management. She was admitted on 09/19/23 for symptoms of progressive RUQ-epigastric abdominal pain, nausea, emesis, diarrhea and has been found to have acute kidney injury. Her hos pitalization so far has been complicated by gnatn-wx-trlsawl hypoxic respiratory failure, new pleural effusion, possible pericarditis, C difficile colitis, anemia requiring transfusion. Her PEDRITO seems to be due to cardiorenal physiology. Her history was consistent with volume depletion, however her respiratory status and creatinine worsened with fluids. She was diuresed on 09/21 withBumex and her respiratory status and creatinine have both improved. Additionally, her breathing has improved with thoracentesis with the help of Interventional Pulmonology. Recommendations -recommend continued gentle diuresis. It would be reasonable to resume her home dose of diuretic. - encourage her to drink to thirst as she tolerates from a GI symptom standpoint today - strict I/O, please try and capture all urine output as able - continue home immunosuppression regimen. Tacrolimus 1 mg twice daily Mycophenolate mofetil 500 mg twice daily Prednisone 5 mg once a day -- note primary team has increased to 10 mg which we have no objection to, so long as there is clear follow up or plan in place to assess a therapeutic response and guide further steroids, rather than 10 mg indefinitely - avoid nephrotoxins as able - we will continue to follow closely This patient was seen and discussed with Nephrology see store sales consultant. Please reach out to Nephrology C resident pager with questions/concerns. Associated attestation - David Calderon M.D. - 09/23/2023 5:31 PM CDT I saw and evaluated the patient, participating in the desai portions of the service. I reviewed Devon Akbar M.D. ???s note. I agree with the resident/fellow???s findings and plan. # acute kidney injury # status post renal transplant x 2 (2006 and 2016) for glomerulonephritis # immunosuppression on tacrolimus, mycophenolate mofetil, prednisone # mqkdp-[id number]-adowxwk hypoxic respiratory failure # right greater than left pleural effusion # small circumferential pericardial effusion on TTE 09/18, thickened and hyperdense pericardium on CT 09/17, and elevated inflammatory markers; query pericarditis # C difficile colitis # chronic hyponatremia # severe malnutrition, s/p PEG # s/p percutaneous cholecystostomy tube and bile duct stent for cholecystitis # sinus bradycardia # atrial fibrillation # coronary artery disease, previous PCI 2005 A 68-year-old F with a renal transplant who is being monitored for PEDRITO and immunosuppression management. She was admitted on 09/19/23 due to progressive RUQ to epigastric abdominal pain, N/V, and diarrhea, and was found to have PEDRITO. Her hospitalization has been complicated by asduo-uq-fhvccrq hypoxic respiratory failure, new pleural effusion, possible pericarditis, C. difficile colitis, and anemiarequiring transfusion. The PEDRITO appears to be due to cardiorenal physiology. Initially, her history suggested volume depletion, but her respiratory status and creatinine levels worsened with fluid administration. On 09/21, she was given Bumex for diuresis, resulting in improvement in both respiratorystatus and creatinine levels. Additionally, her breathing has improved following thoracentesis performed by Interventional Pulmonology. We recommend continued gentle diuresis and resuming her home dose of diuretic. She should be encouraged to drink to thirst as tolerated from a GI symptom standpoint today. StrictI/O monitoring is necessary, with an effort to capture all urine output. Her home immunosuppressionregimen should be maintained, including Tacrolimus 1 mg BID, Mycophenolate mofetil 500 mg BID, and Prednisone 5 mg daily. Note that the primary team has increased her Prednisone to 10 mg, which is acceptable as long as there is a clear follow-up plan to assess therapeutic response and guide furthersteroid use, rather than maintaining 10 mg indefinitely. Nephrotoxins should be avoided as much as possible, and we will continue to follow her closely. David Calderon MD * Nazanin Kincaid, O.T., MOT - 09/23/2023 10:51 AM CDT Occupational Therapy [facility] Inpatient Treatment SUBJECTIVE Patient's Name: Jacqueline Galvan Referring/Attending Provider: Fatemeh Newman M.D. Reason for Referral: Occupational Therapy Evaluation and Treatment History of Present Illness: Jacqueline Galvan is a 68 y.o. female who was admitted to [facility] in [place] on 09/19/2023 for Effusion Pericardial Acute (HCC) [I30.9] Failure Renal Acute (Acute Kidney Injury) (HCC) [N17.9] Pain Chest [R07.9] Prolonged QT Interval [R94.31]. Precautions Other Precautions: respiratory, fall, aspiration, cognition? Pain Assessment: Pain not reported during session. Subjective Comments: Agreeable to therapy session, exercise only OBJECTIVE Vital Signs: Vitals monitored throughout session; within normal ranges. Outcome Measures: AM-PAC Inpatient Short Form: Putting on and taking off regular lower body clothing?: A Little Putting on and taking off regular upper body clothing?: None Taking care of personal grooming such as brushing teeth?: A Little Bathing (including washing, rinsing, drying)?: A lot Toileting, which includes using toilet, bedpan, or urinal?: None Eating meals?: None Daily Activities Raw Score (max 24): 20 Daily Activities Standardized Score: 42.03 Interpretation: Based on scoring guidelines using the raw score value: Those going to home had an average score at or above 18 Those going to facility had an average score at or below 17 Clinicians answer the [facility] Inpatient Short Form based on observed patient activity and/or clinical judgement (ie. patient can be scored without physically performing each activity) Therapeutic Interventions: THERAPEUTIC EXERCISES: Supine in bed: Bilateral Upper Extremity: Active Assisted range of motion: Shoulder: Flexion and Extension Elbow: Flexion and Extension Wrist: Circumduction Resistive band level 1 of 5: Elbow: Flexion and Extension Repetitions: 8 Sets: 1 Patient was left in bed at end of session with call light in reach, all needs met and questions answered. Assessment Discharge Therapy Needs - OT: Ongoing skilled occupational therapy Skilled therapy can include occupational therapy provided in home health, outpatient or post-acute facility. The location of these services is determined by patient's care team in partnership with patient/family. Barriers to Discharge Home: Current functional status, Fall risk, Safety concerns Recommended Adaptive Equipment - OT: Shower chair with back, Grab bar(s) in shower, Grab bar(s) by toilet, Toilet safety frame, Dressing aids Level of Care Needed - OT: Assistance with toilet/shower transfers, Assistance with showering/bathing, Assistance with meal preparation, Assistance with transportation, Assistance with housekeeping, Assistance with shopping, Physical assistance needed Clinical Impression: Patient remains limited by decreased strength, balance, activity tolerance, and safety awareness. As a result she is requiring increased time, effort, and assistance to complete ADLs. Patient is not at functional baseline, skilled occupational therapy in the acute setting continues to be medically necessary to maximize independence, safety, and quality of life. Plan OT Plan Comments: Next session: cognition screen, standing grooming tasks, energy conservation techniques, UE exercises Functional Goals: OT Goal #1: Patient will complete toileting task and toilet transfer with modified independence to increase patient's functional independence by discharge. OT Goal #1 Status: Progressing OT Goal #2: Patient will complete standing/seated grooming task at the sink side with supervision to increase patient's functional independence by discharge. OT Goal #2 Status: Progressing OT Goal #3: Patient will be able to verbalize understanding and recall at least 3 energy conservation techniques to increase ease and safety in performing self- care tasks and mobility in home environment. OT Goal #3 Status: Slowly progressing Progress: Progressing toward goals Rehab potential: Ms. Galvan has good potential to achieve established occupational therapy goals within the time frame outlined below. OT Frequency: OT Amount: 1 visit per day OT Frequency: 3 times per week OT Inpatient Duration : Until goals are met or hospital discharge Requires Inpatient OT Follow-Up: Yes OT - Next Inpatient Appointment: 09/24/23 Plan: Continue with current plan Treatment interventions may include: Treatment Interventions: Therapeutic exercise, Therapeutic functional activity, Self-care/home management, Cognitive skills training Occupational Therapy Attestation Statement: Patient agrees with the plan of care and goals. Billing: Time Spent with Patient Therapeutic Interventions Therapeutic Exercise (min): 10 min Time Tracking Total Timed Units (min): 10 min Total Treatment Time (min): 10 min Nazanin Kincaid O.T., ANGELICA * Fatemeh Newman M.D., M.H.A. - 09/23/2023 10:12 AM CDT SUPERVISORY NOTE I have seen and assessed the patient with the medical team and helped to formulate the plan of care. I have personally reviewed the relevant data in the patient's medical chart. I agree with the findings, assessment and plan as written in the note by Dr. Lopez. #1 Acute kidney injury in setting of renal transplant (x2, last 2016), possibly secondary to cardiorenal syndrome vs progression of prerenal PEDRITO related to acute C.diff infection #2 Concern for acute on chronic HFpEF #3 Positional chest pain + pericardial effusion, query pericarditis #4 Acute on chronic anemia #5 Recent acute cholecystitis s/p percutaneous cholecystostomy tube & common bile duct stent (temporary) placement (08/20) #6 Severe malnutrition s/p PEG placement 05/17/23, c/b gastric perforation requiring ex-lap for debridement and wound vac; consider TPN #7 Chronic mesenteric ischemia with associated malnutrition #8 Immunosuppression (CellCept, Tacro, Prednisone) c/b multiple infections #9 Hyponatremia, mild #10 Hypoxemia #11 Hypertension #12 Sinus bradycardia #13 Atrial fibrillation on amiodarone #14 CAD s/p PCI ('06) Ms. Galvan is feeling better today following diuresis (of unknown volume given urinary incontinence) and thoracentesis (around 800cc). She is now back on room air. We are waiting today's renal function. Thought at this point is that her PEDRITO may be cardiorenal in nature, but today's labs will be revealing. She continues treatment for C.diff and renal function did not respond to initial fluid resuscitation. Plan for cardiac MRI in the next day or so to assess for pericarditis. We continue to monitor nutrition given her underlying severe malnutrition. Remainder per Dr. Lopez. * Omar Springer Pharm.D., R.Ph. - 09/23/2023 10:02 AM CDT Pharmacist Progress Note Reason for admission: Abdominal pain, PEDRITO PMH: ESRD s/p renal transplant x2 ('07, '17, on Tacro, CellCept, Pred), CAD s/p PCI ('06), Afib (not on AC), AAA, HTN, chronic hyponatremia, osteoporosis, HLD recently admitted 08/19-08/29 for acute cholecystitis and is s/p percutaneous cholecystostomy tube due to poor surgical candidacy. Course was complicated by ATN, acute hypoxic respiratory failure in the setting of pleural effusion requiring home going oxygen (1 L). OBJECTIVE Home medications: per PharmD Held: amlodipine, bumetanide, mycophenolate Changed: --- New: --- Patient own medications: --- Prophylaxis: hep BID (weight) - monitor w/ Hgb decreased to 7.4 Last bowel movement: 09/18 Estimated Creatinine Clearance: 9.2 mL/min (A) (by C-G formula based on SCr of 3.38 mg/dL (H)). Baseline ~1.3 ASSESSMENT / PLAN Acute cholecystitis s/p percutaneous cholecystostomy tube & common bile duct stent (temporary) placement (08/20) & severe malnutrition s/p PEG placement Bcx NGTD, holding abx at this time If persistent pain & loose stools >3-4x daily, consider stool pathogen panel due to immunosuppression continuing home Creon with meals/feeds, selenium, zinc supplementation Paste Worker consult for continued tube feeds: recommend resuming multivitamin, per nutrition notes -on 08/27, Dr. Roberts recommended stopping selenium and giving a multivitamin twice daily PEDRITO on CKD & immunosuppression s/p renal transplant Holding home bumex and fluids given on admission Neph consult - holding diuretic and amlodipine; tacrolimus dosing, AM level pending today. Mycophenolate resumed Continues prednisone 5 mg daily Pleural effusion, c/f pericarditis CV consult to discuss possible pericarditis treatment Continues home amiodarone, but could decrease if thought to be contributing to sinus bradycardia -follow up cards recs Changes to medications anticipated at discharge: pending clinical course Omar Springer Pharm.D., R.Ph. [phone] * Rufino Lopez M.D. - 09/23/2023 7:49 AM CDT T Medicine 14 ([facility]) PROGRESS NOTE SUBJECTIVE INTERVAL EVENTS No acute events overnight. Patient has remained on room air following thoracentesis and diuresis yesterday. She denies any new aches or pains. Her , Noah, was able to stay the night which she appreciated. She denies recurrence of her presenting RUQ abdominal pain over the past 24-48 hours. I have reviewed the current medication list. OBJECTIVE VITAL SIGNS Temperature: [36.6 ??C-37 ??C] 37 ??C Resp Rate: [16-22] 18 Blood Pressure: (155-173)/(65) 173/65 SpO2: [94 %-95 %] 94 % Flow Rate (L/min): [1 L/min-4 L/min] 1 L/min Pulse Rate: [49-55] 49 PHYSICAL EXAM General: frail, chronically ill-appearing, sarcopenic ENT: Hearing grossly intact. Lungs: Improved air movement in lower lobes bilaterally, no crackles appreciated, low-pitched expiratory wheezing heard in lower lobes. Heart: RRR, systolic ejection murmur best heard at the apex, no rubs appreciated, no LE edema, difficult to assess JVP. Abdomen: Soft, non-distended, non-tender. Cholecystostomy tube in place without leakage, PEG tub inplace without leakage. Derm: healing bruises on posterior arms and hands bilaterally. DIAGNOSTICS I have personally reviewed the laboratory data and imaging since admission, and in/outs for past 72hours. ASSESSMENT / PLAN Jacqueline Galvan is a 68 y.o. female w/ ESRD s/p renal transplant x2 (, , on Tacro, CellCept, Pred), CAD s/p PCI ('), AAA, HTN, chronic hyponatremia, osteoporosis, chronic mesenteric ischemia, and recent hospitalization 08/19-08/29 for acute cholecystitis s/p percutaneous cholecystostomy tube due to poor surgical candidacy, course complicated by ATN -- who is admitted with subacute progressive RUQ abdominal pain, nausea, vomiting. Nephrology is consulted for immunosuppression management in the setting of PEDRITO & prior renal TXP x2. On 09/20 patient received 1 unit PRBC,12.5 g 25% albumin, and 3% NS 100 mL. Patient did developincreased dyspnea without escalated oxygen need, bedside US overnight was significant for left pleural effusion. Interventional pulmonology was consulted on 09/21 due to worsening pleural effusion, right-sided pleural effusion was tapped and 800 cc of fluid removed. Diuresis was initiated on 09/21,and based on improvement in respiratory status and creatinine we will continue this today with IV Bumex 2 mg. Patient also agreeable for Granados catheter placement. Regarding patient's abdominal symptoms, I suspect that there are multiple contributing factors. We have initiated treatment for suspected C diff colitis with oral vancomycin for 10 day course. It is possible this may have been contributing to some of patient's prior nausea, pain, and loose stools. We do note that patient has periodically complained of increased nausea with non- bloody emesis following her tube feeding, and I suspect that some amount of tube feed intolerance this playing a role in her overall GI picture. CT abdomen/pelvis overall reassuring, and RUQ US demonstrated a decompressed gallbladder with mild mural thickening and pericholecystic fluid (clinical concern for acute cholecystitis low at this time). Patient has a history of chronic mesenteric ischemia, and it is possible that some of her ongoing nausea and poor appetite could be secondary. We will have a low thresholdto discuss the case with GI if we continue struggling with pain and poor nutrition tolerance, dietitian continues following. Patient continues having loose stools with some incontinence, and GI pathogen panel was positive for C diff. She has been started on oral vancomycin. We discussed with ID (taj) and Nephrology regarding ongoing CellCept dosage, and the decision was made to continue use as it was felt that her Cdiff could be effectively treated while continuing to protect her allograft. Cardiology was consulted due to concern for pericarditis, who agreed that her renal dysfunction andhome amiodarone make treatment options limited. We are deferring cardiac MR due to renal dysfunction this time, may consider obtaining this later this week. We have increased her home prednisone to 10 mg daily, and CRP has downtrended. If acute pericarditis is suspected, a prolonged course of prednisone 10 mg may be considered prior to tapering down to her home 5 mg. HGB stable today at 8.2 following transfusion on 09/20. She does not have any clinical signs of bleeding at this time, LDH within normal limits and pending haptoglobin. Peripheral smear demonstrated oval macrocytes and/or hypersegmented neutrophils, which may be secondary to a vitamin B12 or folate deficiency (no hemolysis features seen). Folate and B12 testing added to stored specimens. PLAN: - IV Bumex 2 mg - Granados catheter placement - continue oral vancomycin 125 mg QID for 10 day course - f/u B12, Folate, Haptoglobin # Clostridium difficile colitis # Acute cholecystitis s/p percutaneous cholecystostomy tube & common bile duct stent (temporary) placement (08/20) # Severe malnutrition s/p PEG placement # Chronic mesenteric ischemia - oral vancomycin 125 mg QID for 10 day course - RUQ u/s with mild pericholecystic fluid, concern low for active ongoing cholecystitis or other biliary infection - peripheral blood culture 09/17 NGTD - percutaneous cholecystostomy tube set to gravity with bile bag - continuing home Creon with meals/feeds, zinc supplementation - implementation consultant consulted for malnutrition assessment and titration of tube feeds - zofran and compazine prn for nausea / emesis, if repeated doses recheck QTc # Acute on chronic renal failure # S/p renal transplant x2 (, ) # Immunosuppression (CellCept, Tacro, Prednisone) # H/o glomerulonephritis of unknown etiology # Hyponatremia, mild - repeat Bumex 2 mg IV - repeat afternoon BMP - Nephrology on board for tacrolimus management, appreciate recommendations - continue home CellCept (discussed with ID via taj, feel safe to treat C diff with this on for graft protection) - home prednisone increased to 10 mg daily # Pericardial effusion, small # Query pericarditis # Right pleural effusion, improved # Home oxygen requirement (1 L) # Hypertension # Sinus bradycardia # Atrial fibrillation # CAD s/p PCI () - CV recommending deferring Cardiac MRI until improvement in eGFR - prednisone increased to 10 mg for potential secondary adrenal insufficiency and possible pericarditis - continue home Atorva 80 - continue home amiodarone 200 mg # Normocytic anemia, acute - no clinical signs of bleeding at this time - LDH within normal limits - peripheral smear demonstrated oval macrocytes and/or hypersegmented neutrophils, considering vitamin B12 or folate deficiency - no hemolysis features seen - pending B12, folate level - B12 1 mg SubQ injection daily for 7 days, followed by 1 mg weekly for 1 month, followed by 1 mg monthly indefinitely Severe Malnutrition The patient meets the ASPEN Criteria of malnutrition based on: Energy Intake: Unable to Assess Interpretation of Weight Loss: greater than 5% 1 month Body Fat: Severe Loss Muscle Mass: Severe Loss Fluid Accumulation: Absent This is in the context of Acute Illness or Injury (acute on chronic malnutrition). Malnutrition Present Upon Admission: Yes Agree with Registered Dietitian's assessment and treatment plan: Interventions: Increase nutrient intake with small, frequent meals and/or snacks, Vitamin and mineral supplements, Enteral nutrition, Collaboration and referral of nutrition care Jacqueline Galvan's case and plan of care was discussed with Dr. Clark. Please see supervisory note for further details. Rufino Lopez M.D. Internal Medicine, PGY-3 * Kayli Carpio M.D. - 09/22/2023 3:59 PM CDT Supervisory note I have seen and assessed the patient with the medical team and helped to formulate the plan of care. I have personally reviewed the relevant data in the patient's medical chart. I agree with the findings, assessment and plan as written in the note by Dr. Lopez # C diff infection # RUQ pain, Nausea # Query acute on chronic HFpEF # Positional chest pain + pericardial effusion, query pericarditis? # Acute on chronic anemia # Progressive PEDRITO # Acute cholecystitis s/p percutaneous cholecystostomy tube & common bile duct stent (temporary) placement (08/20) # Severe malnutrition s/p PEG placement 05/17/23, c/b gastric perforation requiring ex-lap for debridement and wound vac # Mesenteric ichemia, chronic # Chronic renal failure # S/p renal transplant x2 (, ) # Immunosuppression (CellCept, Tacro, Prednisone) c/b multiple infections # Hyponatremia, mild # Hypoxemia # Hypertension # Sinus bradycardia # Atrial fibrillation on amiodarone # CAD s/p PCI () Ms. Galvan had increasing dyspnea/orthopnea and hypoxia requiring 4 L of oxygen last night. She was seen by our night provider and on bedside ultrasound was felt to have dilated IVC with Sahil B lines suggestive of volume overload, as well as increasing right-sided pleural effusion. Today on exam she does not appear clinically changed significantly compared to yesterday, notably without significant peripheral edema or JVP (although challenging to see). Historically she has had a very narrow window of euvolemia and tips into volume overload very easily, requiring transfer to the ICU for PAPand forced diuresis during prior complex hospitalization in June. Volume status is very challenging to determine in her -- I/O have not been strictly charted (does not show 2+ liters hydration given on admission, all tube feeding & oral intake, and urines are unmeasured), and weight is downfrom prior though this could be malnutrition related rather than fluid status. The fact that her renal function and respiratory status have worsened despite volume [place] [id number] make me concerned that she is actually slightly volume overloaded even though her appearance does not initially seem consistent with that. Following discussion with the nephrology team, we have opted to diurese with a 1 time bumetanide 2 mg IV dose today, then plan to reassess.Cystatin C is up to 4 (Cr is not accurate given BMI 13), so we will see if this improves at all with diuresis. May also have an element of contrast induced nephropathy. Yesterday she was also found to have positive C diff on stool pathogen testing, initiated on oral vancomycin. We briefly curbside ID to ensure this would be sufficient rather than fidaxomicin, and they felt this was reasonable. Typically in the setting of infection we would hold MMF, however both ID and nephrology did not feel strongly and thus this is being continued. Prednisone is currently increased to 10 mg daily empirically in the setting of possible pericarditis that has not been able to be fully evaluated yet. Noted to have pericardial type chest pain and new pericardial effusion on imaging concerning for pericarditis, but does not have classic ECG changes nor a friction rub to more emphatically confirm the diagnosis. Had planned for cardiac MRI tomorrow, however cardiology is recommending with holding this in the setting of worsening renal function. This could be reconsidered inthe days to come depending on renal function trajectory. ADDENDUM: Notified by nursing that patient stated she wanted to discharge tomorrow. This would be extremely ill-advised from a medical perspective, so I went to visit with her and her Noah to discuss further. From her standpoint, she feels the symptoms that brought her in are improved, so she feels she could continue cares at home where she feels she thrives more. I shared the full clinical picture -- progressive severe malnutrition, progressive severe allograft failure, challenges with fluid balance/management, anemia requiring transfusion yesterday, IV diuresis vs. IV fluids, and ongoing treatment for C diff -- and that I do not feel this could be safely accomplished in the home environment.She became extremely distressed, tearful and anxious repeatedly stating Noah, I just want to go home! I will be fine. Her had a good understanding of her current critical level of illness and agreed it would not be safe for her to return home unless it was with the understanding that she would be likely to pass away quickly without ongoing medical interventions. She states her primary source of anxiety being alone in the hospital without family, so Noah has agreed to stay overnight as much as able. I shared very frankly my concern that her life expectancy is likely shorter than she would like, possibly on the order of months given her rapid decline and recurrent hospitalizations with overall medical frailty. We discussed again the philosophy of hospice care which would allow her to focus on comfort and remaining in the home. She said if she knew she had 2 months left to live shemight choose this, but she believes she will improve. No further decisions were made tonight, but certainly her has a good understanding of her complex and critical medical situation. I personally spent a total of 50 minutes providing and coordinating care today. * Gio David M.D. - 09/22/2023 1:08 PM CDT NEPHROLOGY CONSULT SERVICE - PROGRESS NOTE Hospital Day 3 SUBJECTIVE - she overall this morning feels about the same as she did 24 hours ago. Still with intermittent nausea and anorexia; had episode of emesis yesterday. - she also has been having diarrhea, reporting three episodes of variable volume. Stool tested positive for C difficile toxin - she received 1 unit pRBC yesterday afternoon. Following transfusion, she had worsening dyspnea. Oxygen requirement has increased from 3 L to 4 L. Her baseline is 1 L requirement. - in addition to pRBC, she received 12.5 g of 25% albumin during the day yesterday. OBJECTIVE Admission weight: 36.9 kg Weights for the past 120 hrs (Last 3 readings): Weight 09/21/23 0500 36.9 kg 09/19/23 1945 36.9 kg I/O 09/20 0000 09/20 2359 09/21 0000 09/21 2359 Enteric (NG/OG) Tube 150 60 Feedings 300 600 Red Blood Cells 210 Total Intake(mL/kg) 660 (17.9) 660 (17.9) Urine (mL/kg/hr) 250 (0.3) 100 (0.2) Drains 18 Stool 0 Total Output 268 100 Net +392 +560 Unmeasured Stool Occurrence 3 x VITAL SIGNS Temperature: [36.6 ??C-37 ??C] 36.6 ??C Heart Rate: [44-45] 45 Resp Rate: [16-24] 18 Blood Pressure: (125-155)/(52-66) 155/65 SpO2: [91 %-95 %] 95 % Flow Rate (L/min): [4 L/min] 4 L/min Pulse Rate: [44-53] 51 PHYSICAL EXAMINATION General: frail. Appears chronically ill. Cachetic. CV: normal rate. Regular rhythm. No friction rub apparent. Normal s1 and s2. No elevation of JVP. No edema of lower extremities. Pulm: breathing comfortably and SpO2 normal, though on 4 L NC. Breath sounds present bilaterally. Abdomen: epigastric and RUQ tenderness present. Cholecystostomy tube in place. PEG tube in place. MSK: very low muscle mass Bedside POCUS today: - IVC is of normal diameter, with roughly 50% collapsibility during inspiration - right greater than left, simple appearing pleural effusion - lung ultrasound with few B lines DIAGNOSTICS Results from last 7 days Lab Units 09/22/23 0809/21/23 0923 HEMOGLOBIN g/dL 8.4* 6.8* WBC x10(9)/L 10.9* 12.9* PLATELETS AUTO x10(9)/L 281 274 Last 2 results Lab Units 09/22/23 0812 09/21/23 1918 09/21/23 0923 09/20/23 0928 09/19/23 1559 SODIUM P mmol/L -- -- -- -- 130* SODIUM mmol/L 131* 127* < > 129* -- POTASSIUM mmol/L 4.4 5.0 < > 4.4 -- POTASSIUM P mmol/L -- -- -- -- 4.0 BICARBONATE PLASMA mmol/L -- -- -- -- 22 BICARBONATE S mmol/L 22 20* < > 22 -- BUN P mg/dL -- -- -- -- 52* BUN mg/dL 65* 64* < > 54* -- CREATININE mg/dL 3.36* 3.36* < > 2.76* 2.29* CALCIUM P mg/dL -- -- -- -- 8.8 CALCIUM mg/dL 9.1 8.7* < > 8.7* -- PHOSPHORUS INORGANIC mg/dL -- -- -- 5.3* -- MAGNESIUM mg/dL -- -- -- 2.0 -- < > = values in this interval not displayed. ASSESSMENT / PLAN # acute kidney injury # status post renal transplant x 2 (2006 and 2016) for glomerulonephritis # immunosuppression on tacrolimus, mycophenolate mofetil, prednisone # lxucj-jz-kmivfut hypoxic respiratory failure # right greater than left pleural effusion # small circumferential pericardial effusion on TTE 09/18, thickened and hyperdense pericardium on CT 09/17, and elevated inflammatory markers; query pericarditis # C difficile colitis # chronic hyponatremia # severe malnutrition, s/p PEG # s/p percutaneous cholecystostomy tube and bile duct stent for cholecystitis # sinus bradycardia # atrial fibrillation # coronary artery disease, previous PCI 2005 Ms. Galvan is a 68 year old woman with renal transplant we are following for acute kidney injury and immunosuppression management. She was admitted on 09/19/23 for symptoms of progressive RUQ-epigastric abdominal pain, nausea, emesis, diarrhea and has been found to have acute kidney injury. Her hos pitalization so far has been complicated by oynwj-xf-ixrscav hypoxic respiratory failure, new pleural effusion, possible pericarditis, C difficile colitis, anemia requiring transfusion. The etiology for her acute renal failure is unclear, and she has an overall challenging and complexclinical picture. Her history was suggestive of a prerenal insult from intravascular volume depletion (poor intake, emesis, diarrhea). However, her renal indices did not improve following a 500 cc fluid bolus (note she has BMI only 13.5) and in fact have worsened. Additionally, she has developed gptek-ct-esnoqui hypoxic respiratory failure in the setting of new nniol-rplurwc-nuiy-left pleural effusions, elevated NT-pro-BNP >34,000. Physically she is nonedematous and on POCUS her IVC and lungfindings do not suggest obvious volume overload state. This being said, renal congestion is in differential for her PEDRITO. I wonder about an underlying inflammatory (pericarditis) or infectious process with a combination of leukocytosis, elevated inflammatory markers, pericardial effusion plus thickening on CT. This could be driving the accumulation of the pleural effusions and leading to her respiratory failure, as opposed to volume overload. Agree with Interventional Pulmonology involvement for diagnostic and therapeutic thoracentesis, as pleural fluid characteristics (exudate v transudate, infectious studies) will be helpful in creating a more specific assessment and guiding therapy. Please note that her tacrolimus trough level from 09/20 is uninterpretable and will not guide dose adjustments. Recommendations - one dose of home bumetanide is reasonable today. We can use this as both a diagnostic and therapeutic trial and follow her response in terms of renal indices, respiratory status, and urine output to see how she responds. However, note that respiratory status should improve with thoracentesis alone. - hold additional albumin or hypertonic saline today - encourage her to drink to thirst as she tolerates from a GI symptom standpoint today - strict I/O, please try and capture all urine output as able - daily renal function panel - will follow tacrolimus trough level today - continue home immunosuppression regimen in the meantime Tacrolimus 1 mg twice daily Mycophenolate mofetil 500 mg twice daily Prednisone 5 mg once a day -- note primary team has increased to 10 mg which we have no objection to, so long as there is clear follow up or plan in place to assess a therapeutic response and guide further steroids, rather than 10 mg indefinitely - avoid nephrotoxins as able - we will continue to follow closely Patient reviewed with Nephrology C Fellow, Dr. Mari Servin. Please reach out to Nephrology C resident pager with questions/concerns. Gio David M.D. PGY-2, Internal Medicine 09/22/23 * Dax Echeverria M.D. - 09/22/2023 10:08 AM CDT CARDIOLOGY MISCELLANEOUS NOTE has increased oxygen requirements with worsening pleural effusion. Her hemoglobin is down to 6.8 which required PRBC transfusion. Kidney function is worsening (creatinine 3.36, up from 2.29 on admission). She is scheduled to get a cardiac MRI for evaluation of possible pericarditis butdue to increasing creatinine we recommend deferring this until kidney function stabilization/recovery. Dax Deng M.D. Discussed with * Rufino Lopez M.D. - 09/22/2023 7:35 AM CDT T Medicine 14 ([facility]) PROGRESS NOTE SUBJECTIVE INTERVAL EVENTS Patient experienced increased shortness of breath yesterday evening following administration of PRBC and albumin. Bedside ultrasound demonstrated a new left and larger right pleural effusion, exam notable for decreased lung sounds in bilateral bases. Patient remained on 4 L NC overnight. IP consultwas placed, no additional fluids given overnight. Stool pathogen panel did return positive for C diff, oral vancomycin was initiated. I have reviewed the current medication list. OBJECTIVE VITAL SIGNS Temperature: [36.9 ??C-37.2 ??C] 37 ??C Heart Rate: [44-45] 45 Resp Rate: [16-24] 20 Blood Pressure: (118-153)/(52-66) 143/66 SpO2: [91 %-92 %] 92 % Flow Rate (L/min): [4 L/min] 4 L/min Pulse Rate: [44-53] 48 PHYSICAL EXAM General: frail, chronically ill-appearing, sarcopenic ENT: Hearing grossly intact. Lungs: Decreased in RLL, no crackles or wheezes appreciated, symmetric chest wall expansion Heart: RRR, systolic ejection murmur best heard at the apex, no rubs appreciated, no LE edema, difficult to assess JVP. Abdomen: Cholecystostomy tube in place without leakage, small volume clear (faintly cloudy) fluid in bag. TTP on right side without rebounding. Derm: healing bruises on posterior arms and hands bilaterally. DIAGNOSTICS I have personally reviewed the laboratory data and imaging since admission, and in/outs for past 72hours. ASSESSMENT / PLAN Jacqueline Galvan is a 68 y.o. female w/ ESRD s/p renal transplant x2 ('07, '17, on Tacro, CellCept, Pred), CAD s/p PCI ('06), AAA, HTN, chronic hyponatremia, osteoporosis, chronic mesenteric ischemia, and recent hospitalization 08/19-08/29 for acute cholecystitis s/p percutaneous cholecystostomy tube due to poor surgical candidacy, course complicated by ATN -- who is admitted with subacute progressive RUQ abdominal pain, nausea, vomiting. Regarding patient's abdominal symptoms, I suspect that there are multiple contributing factors. We have initiated treatment for suspected C diff colitis with oral vancomycin for 10 day course. It is possible this may have been contributing to some of patient's prior nausea, pain, and loose stools. We do note that patient has periodically complained of increased nausea with non- bloody emesis following her tube feeding, and I suspect that some amount of tube feed intolerance this playing a role in her overall GI picture. CT abdomen/pelvis overall reassuring, and RUQ US demonstrated a decompressed gallbladder with mild mural thickening and pericholecystic fluid (clinical concern for acute cholecystitis low at this time). Patient has a history of chronic mesenteric ischemia, and it is possible that some of her ongoing nausea and poor appetite could be secondary. We will have a low thresholdto discuss the case with GI if we continue struggling with pain and poor nutrition tolerance, dietitian continues following. Cardiology was consulted due to concern for pericarditis, who agreed that her renal dysfunction andhome amiodarone make treatment options limited. They recommended cardiac MRI for further clarification, could be performed Saturday. We have increased her home prednisone to 10 mg daily, and CRP has downtrended. HGB was decreased yesterday at 6.8 and has improved to 8.4 following 1 unit PRBC transfusion. She does not have any clinical signs of bleeding at this time, LDH within normal limits and pending haptoglobin and peripheral smear. Nephrology is consulted for immunosuppression management in the setting of PEDRITO & prior renal TXP x2. Yesterday patient received 1 unit PRBC,12.5 g 25% albumin, and 3% NS 100 mL. Patient did develop increased dyspnea without escalated oxygen need, bedside US overnight was significant for left pleural effusion. IP is consulted for consideration of thoracentesis. Patient continues having loose stools with some incontinence, and GI pathogen panel was positive for C diff. She has been started on oral vancomycin. PLAN: - IP consulted for potential thoracentesis - Bumex 2 mg IV - oral vancomycin 125 mg QID for 10 day course - pending hemolysis workup # Clostridium difficile colitis # Acute cholecystitis s/p percutaneous cholecystostomy tube & common bile duct stent (temporary) placement (08/20) # Severe malnutrition s/p PEG placement # Chronic mesenteric ischemia - - oral vancomycin 125 mg QID for 10 day course - RUQ u/s with mild pericholecystic fluid, concern low for active ongoing cholecystitis or other biliary infection - peripheral blood culture 09/17 NGTD - percutaneous cholecystostomy tube set to gravity with bile bag - continuing home Creon with meals/feeds, zinc supplementation - implementation consultant consulted for malnutrition assessment and titration of tube feeds - zofran and compazine prn for nausea / emesis, if repeated doses recheck QTc # Acute on chronic renal failure # S/p renal transplant x2 (, ) # Immunosuppression (CellCept, Tacro, Prednisone) # H/o glomerulonephritis of unknown etiology # Hyponatremia, mild - Bumex 2 mg IV - repeat afternoon BMP - Nephrology on board for tacrolimus management, appreciate recommendations - continue home CellCept (discussed with ID via [email or web address], feel safe to treat C diff with this on for graft protection) - home prednisone increased to 10 mg daily # Pericardial effusion, small # Query pericarditis # Right pleural effusion, improved # Home oxygen requirement (1 L) # Hypertension # Sinus bradycardia # Atrial fibrillation # CAD s/p PCI ('06) - CV recommending deferring Cardiac MRI until improvement in eGFR - prednisone increased to 10 mg for potential secondary adrenal insufficiency and possible pericarditis - continue home Atorva 80 - continue home amiodarone 200 mg # Normocytic anemia, acute - no clinical signs of bleeding at this time - LDH within normal limits - pending Haptoglobin, peripheral smear Severe Malnutrition The patient meets the ASPEN Criteria of malnutrition based on: Energy Intake: Unable to Assess Interpretation of Weight Loss: greater than 5% 1 month Body Fat: Severe Loss Muscle Mass: Severe Loss Fluid Accumulation: Absent This is in the context of Acute Illness or Injury (acute on chronic malnutrition). Malnutrition Present Upon Admission: Yes Agree with Registered Dietitian's assessment and treatment plan: Interventions: Increase nutrient intake with small, frequent meals and/or snacks, Vitamin and mineral supplements, Enteral nutrition, Collaboration and referral of nutrition care Jacqueline Galvan's case and plan of care was discussed with Dr. Clark. Please see supervisory note for further details. Rufino Lopez M.D. Internal Medicine, PGY-3 * Moises Jenkins P.A.-C. - 09/21/2023 10:46 PM CDT Cross-Cover Note for T Medicine 14 ([facility]) SUBJECTIVE Nursing notified HIM Cross Coverage that Ms. Galvan was reporting some dyspnea several hours after her blood transfusion was complete. I evaluated her at the bedside. She reports the dyspnea is worse with lying more flat and has sinceimproved since she sat up more in bed. She also reports some anxiety and misses her , who recently left the hospital. She denies any other new symptoms at this time, notably fever, chills, cough, wheezing, nausea, chest pain or pressure. I have reviewed the current medication list. OBJECTIVE VITAL SIGNS Temperature: [36.9 ??C-37.8 ??C] 37 ??C Heart Rate: [44-45] 45 Resp Rate: [16-24] 22 Blood Pressure: (117-153)/(51-61) 153/58 SpO2: [91 %-92 %] 92 % Flow Rate (L/min): [4 L/min] 4 L/min Pulse Rate: [44-53] 53 PHYSICAL EXAM General: non-toxic in no acute distress Mental: alert and oriented x 4, responds appropriately to questions, mood and affect congruent, CAMnegative for delirium Heart: regular rate, irregularly irregular, systolic murmur no jugular venous distension, normal peripheral pulses and capillary refill, no lower extremity edema Lungs: diminished in the bases, even non-labored respirations on 4 L NC POCUS: dilated IVC without inspiratory collapse, moderate-large right pleural effusion with compressive atelectasis, mild-moderate left pleural effusion, no pericardial effusion appreciated DIAGNOSTICS ASSESSMENT / PLAN #1 Acute on chronic hypoxic respiratory failure #2 Bilateral pleural effusions, right greater than left #3 PEDRITO in the setting of stage 3 CKD #4 S/p renal transplantation x2 #5 Severe malnutrition, s/p PEG #6 Chronic normocytic anemia Differential for dyspnea that is already mostly resolved includes the worsening pleural effusions, transfusion reaction, pulmonary edema, and pneumonia. Her vital signs are fortunately stable and sheis afebrile. No leukocytosis on AM labs. Suspect her dyspnea is worsening in the setting of worsened pleural effusions (TTE on 09/18 demonstrated no left pleural effusion), oliguric PEDRITO and the volumeshe has received in IV fluids and now blood product, especially given her malnourished state. Of note, her Bumex has been held in the setting of PEDRITO since admission. Last hospitalization she requireda right thoracentesis for 600 mL. Fluid was transudative and she had improvement in her respiratorystatus following the tap. - IP consult for possible therapeutic thoracentesis - Defer diuretic management to Nephrology and Primary Team, though will avoid further fluid administration overnight I personally spent 45 minutes providing and coordinating care. Addendum: Notified by Results inquiry that C. Difficile PCR is positive. Started Vancomycin 125 mg PO QID. * Rufino Lopez M.D. - 09/21/2023 4:19 PM CDT [facility] Medicine 14 ([facility]) PROGRESS NOTE SUBJECTIVE INTERVAL EVENTS Patient denies any abdominal pain while resting in bed this morning, however has noted nausea with 1 episode of non-bloody emesis. She does continue to have loose stools with incontinence, her bowel regimen has been discontinued. She did not feel that symptoms significantly increase following tube feeds. She does not have any clinically significant signs of bleeding. I have reviewed the current medication list. OBJECTIVE VITAL SIGNS Temperature: [36.9 ??C-37.8 ??C] 37.2 ??C Resp Rate: [18-20] 20 Blood Pressure: (117-128)/(46-61) 118/61 SpO2: [92 %] 92 % Flow Rate (L/min): [3 L/min-4 L/min] 4 L/min Weight: [36.9 kg] 36.9 kg BMI (Calculated): [13.5 kg/m??] 13.5 kg/m?? Pulse Rate: [40-45] 44 PHYSICAL EXAM General: frail, chronically ill-appearing, sarcopenic ENT: Hearing grossly intact. Lungs: Clear to auscultation. No wheezes or crackles. Heart: RRR, systolic ejection murmur best heard at the apex, no rubs appreciated, no LE edema, difficult to assess JVP. Abdomen: Cholecystostomy tube in place without leakage, small volume clear (faintly cloudy) fluid in bag. TTP on right side without rebounding. Derm: healing bruises on posterior arms and hands bilaterally. DIAGNOSTICS I have personally reviewed the laboratory data and imaging since admission, and in/outs for past 72hours. ASSESSMENT / PLAN Jacqueline Galvan is a 68 y.o. female w/ ESRD s/p renal transplant x2 (, , on Tacro, CellCept, Pred), CAD s/p PCI ('06), AAA, HTN, chronic hyponatremia, osteoporosis, chronic mesenteric ischemia, and recent hospitalization 08/19-08/29 for acute cholecystitis s/p percutaneous cholecystostomy tube due to poor surgical candidacy, course complicated by ATN -- who is admitted with subacute progressive RUQ abdominal pain, nausea, vomiting. Currently the source of her RUQ abdominal pain, decreased appetite, and nausea with emesis is unclear and potentially multifactorial. CT abdomen/pelvis overall reassuring, and RUQ US demonstrated a decompressed gallbladder with mild mural thickening and pericholecystic fluid (clinical concern for acute cholecystitis low at this time). Patient has a history of chronic mesenteric ischemia, and it is possible that some of her ongoing nausea and poor appetite could be secondary. We will have a low threshold to discuss the case with GI if we continue struggling with pain and poor nutrition tolerance, dietitian continues following. Cardiology was consulted due to concern for pericarditis, who agreed that her renal dysfunction andhome amiodarone make treatment options limited. They recommended cardiac MRI for further clarification, which is ordered and should be performed Saturday. We have increased her home prednisone to 10 mgdaily, and CRP decreased from 140 to 80 today. HGB slightly decreased today (6.8, down from 7.4) and patient is agreeable to transfusion of 1 unitPRBC. She does not have any clinical signs of bleeding at this time, and we will obtain hemolysis labs today. Nephrology is consulted for immunosuppression management in the setting of PEDRITO & prior renal TXP x2. Patient's fluid evaluation is challenging but overall is consistent with ongoing hypovolemia. Case discussed with Nephrology and we will provide her in total 1 unit PRBC,12.5 g 25% albumin, and 3% NS 100 mL with consideration for ongoing crystalloid replacement pending her respiratory status after these initial interventions. Patient continues having loose stools with some incontinence, we have discontinued bowel regimen and we will obtain GI pathogen panel in the setting of her immunosuppression and chronic abdominal symptoms. PLAN: - 1 u pRBC - 25 % albumin 12.5 g - 3% saline 100 cc - repeat afternoon BMP - hemolysis workup - close monitoring of respiratory status prior to additional isotonic crystalloids # Acute cholecystitis s/p percutaneous cholecystostomy tube & common bile duct stent (temporary) placement (08/20) # Severe malnutrition s/p PEG placement # Chronic mesenteric ischemia - RUQ u/s with mild pericholecystic fluid, concern low for active ongoing cholecystitis or other biliary infection - peripheral blood culture 09/17 NGTD - holding Abx at this time - percutaneous cholecystostomy tube set to gravity with bile bag - continuing home Creon with meals/feeds, zinc supplementation - implementation consultant consulted for malnutrition assessment and titration of tube feeds - zofran and compazine prn for nausea / emesis, if repeated doses recheck QTc Home Tube Feeding Program (08/30/23): Formula: Peptamen 1.5 ([place]), Substitute Formula: Consult dietitian to determine appropriate substitute. Feeding method: Intermittent gravity Feeding schedule/goal: 3 cans/day (Given ) # Acute on chronic renal failure # S/p renal transplant x2 (, ) # Immunosuppression (CellCept, Tacro, Prednisone) # H/o glomerulonephritis of unknown etiology # Hyponatremia, mild - administering 25% albumin 12.5 g, and 3% saline 100 cc per nephrology recommendation - may consider additional isotonic crystalloid administration pending respiratory status after colloid given - holding home Bumex - daily BMP, with repeat BMP this afternoon - Nephrology on board for tacrolimus management, appreciate recommendations - continuing home CellCept - increase prednisone to 10 mg daily # Pericardial effusion, small # Query pericarditis # Right pleural effusion, improved # Home oxygen requirement (1 L) # Hypertension # Sinus bradycardia # Atrial fibrillation # CAD s/p PCI ('06) - CV on board, appreciate recommendations - planned for cardiac MRI on Saturday - prednisone increased to 10 mg for potential secondary adrenal insufficiency and possible pericarditis - continue home Atorva 80 - continue home amiodarone 200 mg # Normocytic anemia, acute - obtaining hemolysis labs (LDH, Haptoglobin, peripheral smear) today Severe Malnutrition The patient meets the ASPEN Criteria of malnutrition based on: Energy Intake: Unable to Assess Interpretation of Weight Loss: greater than 5% 1 month Body Fat: Severe Loss Muscle Mass: Severe Loss Fluid Accumulation: Absent This is in the context of Acute Illness or Injury (acute on chronic malnutrition). Malnutrition Present Upon Admission: Yes Agree with Registered Dietitian's assessment and treatment plan: Interventions: Increase nutrient intake with small, frequent meals and/or snacks, Vitamin and mineral supplements, Enteral nutrition, Collaboration and referral of nutrition care Jacqueline Galvan's case and plan of care was discussed with Dr. Clark. Please see supervisory note for further details. Rufino Lopez M.D. Internal Medicine, PGY-3 * Kayli Carpio M.D. - 09/21/2023 1:21 PM CDT Supervisory note I have seen and assessed the patient with the medical team and helped to formulate the plan of care. I have personally reviewed the relevant data in the patient's medical chart. I agree with the findings, assessment and plan as written in the note by Dr. Lopez # RUQ pain, Nausea # Elevated inflammatory markers # Acute on chronic anemia # Progressive non-oliguric PEDRIOT # Positional chest pain + pericardial effusion, query pericarditis? # Acute cholecystitis s/p percutaneous cholecystostomy tube & common bile duct stent (temporary) placement (08/20) # Severe malnutrition s/p PEG placement 05/17/23, c/b gastric perforation requiring ex-lap for debridement and wound vac # Mesenteric ichemia, chronic # Chronic renal failure # S/p renal transplant x2 (, ) # Immunosuppression (CellCept, Tacro, Prednisone) c/b multiple infections # Hyponatremia, mild # Hypoxemia # Hypertension # Sinus bradycardia # Atrial fibrillation on amiodarone # CAD s/p PCI (') Ms. Galvan is noted today to have increasing oxygen requirement now up to 4 L nasal cannula. Continues to have mild asymptomatic bradycardia in the 40s with slightly soft blood pressures but generally maintaining maps greater than 65. This morning she reported significant demoralization and depression regarding her ongoing medical challenges and recurrent hospitalizations. She reported ongoing nausea with an episode of emesis this morning that was examined and contain digested food. Initiallyreported no abdominal pain but later did endorse some right upper quadrant pain around the site of her cholecystostomy tube. No obvious source of bleeding. Has continued to have loose bowel movementsand is incontinent of stool, no melena or hematochezia noted. No change to positional chest pain. Unclear exactly what is driving her overall process. Obviously she has profound failure to thrive with progressive malnutrition, weight loss despite PEG tube feedings, and significant renal failure, on top of a background of serious comorbidities and multiple prior complicated hospitalizations. Renal failure and possible pericarditis rise to the list of current problems, also still some concern for potential infection that remains occult. Renal failure continues to worsen today up to 3.21 despite receiving IV fluids over the last 48 hours. She also is beginning to develop increasing anion gapmetabolic acidosis with drop in bicarb to 18 and continued decline in sodium down to 127. Nephrology has recommended continued holding of Bumex and providing continued volume extent expansion with lactated Ringer's based on bedside ultrasound that showed collapse of the IVC. Although this is very reasonable, my prior experience with Ms. Galvan in June is that she has a very narrow window ofeuvolemia and is predisposed both to severe volume depletion as well as heart failure and potentialcardiorenal syndrome. Noting her worsening renal function after receiving fluids and increasing oxygen requirement gives me pause to add additional fluids. We will transfuse PRBCs and monitor, consider additional fluids later today depending on how she is doing. Inflammatory markers did decline with CRP now 81, unclear if this is related to increasing prednisone yesterday to 10 mg. Hemoglobin has also dropped down to 6.8 this morning. We will transfuse 1 unit PRBCs this morning. No obvious source of blood loss noted on imaging or clinical exam, query hemodilutional drop. Cardiology is following along for possible pericarditis. Cardiac MRI has been ordered for Saturday. Nausea and vomiting is somewhat nonspecific and has been present for many months, attributed initially to chronic mesenteric ischemia. Unclear if PEG feeding is contributing to this or only oral feeding which she takes for comfort. She does endorse some mild tenderness in the right upper quadrant but imaging did not reveal any obvious complications of her recent cholecystitis, nor other acute abdominal process. Continue to monitor, low threshold for additional imaging should clinical picture change. I personally spent a total of 50 minutes providing and coordinating care today. * Gio David M.D. - 09/21/2023 11:40 AM CDT NEPHROLOGY CONSULT SERVICE - PROGRESS NOTE Hospital Day 2 SUBJECTIVE - limited appetite, poor oral fluid intake - still with tender abdomen, though tells us her nausea is not as severe - feeling restless, and demoralized about being in hospital again - 200 cc urine output charted over 24 hours, plus 2 unmeasured episodes of UOP of unclear volume OBJECTIVE Admission weight: 36.9 kg Weights for the past 120 hrs (Last 3 readings): Weight 09/21/23 0500 36.9 kg 09/19/23 1945 36.9 kg I/O 09/18 0000 09/18 0000 09/19 0000 09/20 2358 P.O. 200 Enteric (NG/OG) Tube 150 30 Feedings 600 Crystalloid Bolus 500 Total Intake(mL/kg) 1450 (39.3) 30 (0.8) Urine (mL/kg/hr) 300 (0.3) 250 (0.6) Drains 18 Stool 0 Total Output 300 268 Net +1150 -238 Unmeasured Urine Occurrence 2 x Unmeasured Stool Occurrence 1 x VITAL SIGNS Temperature: [36.7 ??C-37.8 ??C] 37.2 ??C Resp Rate: [18-20] 20 Blood Pressure: (113-128)/(42-61) 118/61 SpO2: [92 %-93 %] 92 % Flow Rate (L/min): [3 L/min-4 L/min] 4 L/min Pulse Rate: [40-45] 44 PHYSICAL EXAMINATION General: frail. Appears chronically ill. Cachetic. CV: normal rate. Regular rhythm. No friction rub apparent. Normal s1 and s2. No elevation of JVP. No edema of lower extremities. Pulm: breathing comfortably, though on 3 L NC. Breath sounds present bilaterally. Abdomen: epigastric and RUQ tenderness present. Cholecystostomy tube in place. PEG tube in place. MSK: very low muscle mass DIAGNOSTICS Results from last 7 days Lab Units 09/21/23 0923 09/20/23 0928 HEMOGLOBIN g/dL 6.8* 7.4* WBC x10(9)/L 12.9* 10.2* PLATELETS AUTO x10(9)/L 274 262 Last 2 results Lab Units 09/20/23 0928 09/19/23 1559 09/18/23 1156 09/18/23 1156 09/18/23 1142 SODIUM P mmol/L -- 130* < > 131* -- SODIUM mmol/L 129* -- -- -- -- POTASSIUM mmol/L 4.4 -- -- -- -- POTASSIUM P mmol/L -- 4.0 -- 3.6 -- BICARBONATE PLASMA mmol/L -- 22 < > 25 -- BICARBONATE S mmol/L 22 -- -- -- -- BUN P mg/dL -- 52* < > 51* -- BUN mg/dL 54* -- -- -- -- CREATININE mg/dL 2.76* 2.29* < > 1.94* -- CALCIUM P mg/dL -- 8.8 < > 8.9 -- CALCIUM mg/dL 8.7* -- -- -- -- PHOSPHORUS INORGANIC mg/dL 5.3* -- -- -- -- MAGNESIUM mg/dL 2.0 -- -- -- 2.0 < > = values in this interval not displayed. ASSESSMENT / PLAN # acute kidney injury, suspect prerenal secondary to intravascular volume depletion # status post renal transplant x 2 (2006 and 2016) # immunosuppression on tacrolimus, mycophenolate mofetil, prednisone # chronic hyponatremia # severe malnutrition, s/p PEG # s/p percutaneous cholecystostomy tube and bile duct stent for cholecystitis # sinus bradycardia # small circumferential pericardial effusion on TTE 09/18, thickened and hyperdense pericardium on CT 09/17, elevated CRP raising suspicion for pericarditis # chronic oxygen therapy (1 L at home) # atrial fibrillation # coronary artery disease, previous PCI 2005 Ms. Galvan is a 68 year old woman with renal transplant we are following for acute kidney injury and immunosuppression management. Suspect this is secondary to a prerenal injury from intravascular volume depletion, based on poor oral intake and findings of intravascular depletion on bedside POCUS. Her tacrolimus trough level is within goal range (4-6) Recommendations - hold home amlodipine and bumetanide - IV normal saline infusion 100 cc/hr today and overnight to assess response of PEDRITO to intravascular volume expansion. - 100 cc of 3% NaCl IV x 1 today - 100cc of 25% albumin IV x 1 today - Note she will also receive transfusion x 1 pRBC today - strict I/O, please try and capture all urine output as able - daily renal function panel - will follow tacrolimus trough levels - continue home immunosuppression regimen Tacrolimus 1 mg twice daily Mycophenolate mofetil 500 mg twice daily Prednisolone 5 mg once a day - avoid nephrotoxins as able - we will continue to follow closely Patient reviewed with Nephrology C Fellow, Dr. Mari Servin. Please reach out to Nephrology C resident pager with questions/concerns. Gio David M.D. PGY-2, Internal Medicine 09/21/23 Associated attestation - Allie Vieira M.D., Ph.D. - 09/21/2023 3:38 PM CDT I saw and evaluated the patient, participating in the desai portions of the service. I reviewed the resident???s note. I agree with Dr. David???s findings and plan. Ms. Galvan has PEDRITO on CKD in the setting of hypovolemia related to reduced PO intake, nausea and vomiting. Creatinine is still rising and UO has been low, some voids were not computed yesterday though. Na has dropped quite considerably which should be related to hypovolemia and PEDRITO. UA is bland. Would recommend keeping IVF and doing 50 cc bolus of hypertonic saline with repeated labs in the afternoon. Hb is dropping, no apparent bleeding, would also recheck later in the day and add hemolysiswork-up (haptoglobin, LDH, and smear). Consider Granados if we are not able to have accurate Is and Os. Nephrology will keep following closely along with primary team. * Virginia Escalante M.S., O.T. - 09/21/2023 8:39 AM CDT 09/21/23 0839 Reason Therapy Missed Reason Therapy Missed Medical hold Per comprehensive chart review and discussion with PT, patient continues to undergo extensive medical workup for significant right upper quadrant pain. We will hold OT evaluation today and reassess as appropriate at a later date when mobility and engagement in cares are better tolerated. Virginia Escalante M.S., O.T. * John Patiño P.T., D.PMarlysT. - 09/21/2023 8:24 AM CDT Comprehensive chart review completed. Patient continues to undergo medical workup for right upper quadrant pain she has been experiencing. Patient has been undergoing extensive medical workup, we will hold PT evaluation today and reassess appropriateness at a later date where hopefully mobility at that time will be better tolerated. * Michael Hagen P.T., D.PMitul. - 09/20/2023 2:20 PM CDT 09/20/23 1420 Reason Therapy Missed Reason Therapy Missed Medical hold Patient continues to undergo medical workup for right upper quadrant pain she has been experiencing. She is most comfortable on her right side and her pain quickly increases when sitting up. Given that the patient has been here for 1 day and has been undergoing extensive medical workup this AM, we will hold PT evaluation today and reassess appropriateness tomorrow where hopefully mobility at thattime will be better tolerated. We encourage our nursing colleagues to continue with pivot transfersto the commode at this time. * Bridgette Villalobos R.N., C.W.C.N. - 09/20/2023 12:13 PM CDT [facility] Wound RN consulted to assess Jacqueline Galvan skin alterations. Wound assessment, pain, andBraden score noted in the flowsheet. The patient consented to photography of the affected area for clinical trending purposes. Images were taken and are available in QREADS. History: Per provider note, patient is a 68 y.o. female admitted for acute renal failure. Past medical history includes ESRD s/p renal transplant x2 ('07, '17, on Tacro, CellCept, Pred), CAD s/p PCI ('06), AAA, HTN, chronic hyponatremia, osteoporosis. She was recently admitted 08/19-08/29 for acute cholecystitis s/p percutaneous cholecystostomy tube due to poor surgical candidacy, course complicated by ATN. Assessment: The patient was assessed while lying in bed with floor RN at bedside. The patient has two chronic wounds; coccyx stage 3 pressure injury and a right distal knee multifactorial wound. The coccyx pressure injury is clean with pink/red tissue present. The wound has made significant progress since WO RN last assessed in late August. The right distal knee wound has decreased dimensions since this time with tendon exposure present. At home, the wound was dressed with Aquacel AG. However, due to fear of tendon desiccation, wound therapy transitioned to Plurogel with Mepilex foam covering. PMR Mist therapy deferred at this time and will reevaluate the need during follow up visit. See wound details and recommendations below. 09/20/23 0925 Wound 08/20/23 Pressure Injury Stage 3 Coccyx Date First Assessed/Time First Assessed: 08/20/23 1135 Present on Original Admission: Yes Primary Wound Type: Pressure Injury Pressure Injury Staging: Stage 3 Location: Coccyx *Shape Linear or elongated *Wound Length (cm) 2 cm *Wound Width (cm) 0.4 cm Wound Surface Area 0.8 cm^2 *Wound Bed Open;[place];Red Tissue Exposed None Odor None *Exudate Amount Scant Drainage Description Serous Ebony-wound Assessment Clean;Dry;Intact Treatments Cleansed Periwound Treatment Cleansed (Comment) Wound Cleansed with Wound cleanser *Primary Dressing Wound gel *Primary Dressing Frequency of Change Daily & PRN Primary Dressing Changed New Primary Dressing Status Clean;Intact *Secondary Dressing Foam *Secondary Dressing Frequency of Change Every third day & PRN Secondary Dressing Changed New Secondary Dressing Status Clean;Dry;Intact Changed by Wound spikemaking supervisor Ongoing management Nursing;Wound/band head saw operatorclient engagement manager done by [facility] RN? Yes BWAT Size 1-Length x width <4 sq cm BWAT Depth 3-Full thickness skin loss involving damage or necrosis of subcutaneous tissue, may extend down to but not through underlying fascia, and/or mixed partial and full thickness and/or tissue layers obscured by granulation tissue BWAT Edges 2-Distinct, outline clearly visible, attached, even with the wound base BWAT Undermining 1-None present BWAT Necrotic Tissue Type 1-None visible BWAT Necrotic Tissue Amount 1-None visible BWAT Exudate Type 4-Serous: thin, watery, clear BWAT Drainage Amount 2-Scant, wound moist but no observable exudate BWAT Skin Color Surrounding Wound 1-[place] or normal for ethnic group BWAT Peripheral Tissue Edema 1-No swelling or edema BWAT Peripheral Tissue Induration 1-None present BWAT Granulation Tissue 2-Bright, beefy red, 75-100% of wound filled and/or tissue overgrowth BWAT Epithelialization 2-75 to <100% wound covered and/or epithelial tissue extends >0.5cm into wound bed BWAT Total Score 22 Wound 08/21/23 Knee Anterior;Right;Lower Multifactorial wound Date First Assessed/Time First Assessed: 08/21/23 0900 Present on Original Admission: Yes Location:Knee Wound Location Orientation: Anterior;Right;Lower Wound Description (Comments): Multifactorial wound *Shape Round / oval *Wound Length (cm) 2 cm *Wound Width (cm) 2.4 cm Wound Surface Area 4.8 cm^2 *Wound Bed Open;Yellow;[place] Tissue Exposed Tendon Odor None *Exudate Amount Small Drainage Description Serous Ebony-wound Assessment Fragile Treatments Cleansed Periwound Treatment Cleansed (Comment) Wound Cleansed with Wound cleanser *Primary Dressing Wound gel *Primary Dressing Frequency of Change Daily & PRN Primary Dressing Changed New Primary Dressing Status Clean;Dry;Intact *Secondary Dressing Foam *Secondary Dressing Frequency of Change Daily & PRN Secondary Dressing Changed New Secondary Dressing Status Clean;Dry;Intact Changed by Wound spikemaking supervisor Ongoing management Nursing;Wound/band head saw operator Head to toe skin assessment completed and no other concerns. Skin cancer biopsy site is noted on the right nare. Per patient report, this area is squamous cell carcinoma. She will follow up with dermatology in the outpatient setting. Ok to leave open to air. DRESSING RECOMMENDATIONS: #1 Pressure Injury Stage 3 Coccyx -Cleanse the wound with Vashe wound cleanser. Pat dry. -Apply a layer of PluroGel, 3mm thick, directly to the wound bed. -Ensure that the PluroGel covers the wound completely. -Change once daily and PRN. -Cover with a sacral Mepilex border. Change every three days. #2 Knee Anterior;Right;Lower Multifactorial wound -Cleanse the wound with Vashe wound cleanser. Pat dry. -Apply a layer of PluroGel, 3mm thick, directly to the wound bed. -Ensure that the PluroGel covers the wound completely. -Cover with a 4x4 Mepilex border. -Change once daily and PRN. Recommended interventions for pressure redistribution and shear reduction: Offload heels on pillows at all times when in bed. Full 30 degree turns side to side every 2 hours with supine positioning only for meals. Micro turn 15 degrees every 1 hour side to side until the patient can tolerate full 30 degree turns. Then turn side to side every 2 hours with supine positioning only for meals. Apply and utilize the LEAF monitoring system. Reposition at least every hour while in the chair. Reposition medical devices per policy. Assess and pad the skin under and surrounding the medical devices with a prophylactic foam dressing. Keep the HOB below 30 degrees except for meals unless medically contraindicated. Utilize the Advanced Wave Low Air Loss and Immersion mattress. Utilize a ROHO cushion when up to the chair. Recommended interventions for moisture control: Utilize the breathable incontinence underpads while in bed. Adult briefs should only be worn while ambulating or in the chair. Cleanse with foaming cleanser or wipes after each incontinence episode and for routine hygiene cares. Consult recommendations: NA Education: Discussed the plan of care with the patient and nursing. They agree to the plan. The WOC RN will continue to see the patient, contact or reconsult for worsening wounds or new wounds. * Berenice Mora, Pharm.D., R.Ph., [facility] - 09/20/2023 11:40 AM CDT Pharmacist Progress Note Reason for admission: Abdominal pain, PEDRITO PMH: ESRD s/p renal transplant x2 ('07, '17, on Tacro, CellCept, Pred), CAD s/p PCI ('06), Afib (not on AC), AAA, HTN, chronic hyponatremia, osteoporosis, HLD recently admitted 08/19-08/29 for acute cholecystitis and is s/p percutaneous cholecystostomy tube due to poor surgical candidacy. Course was complicated by ATN, acute hypoxic respiratory failure in the setting of pleural effusion requiring home going oxygen (1 L). OBJECTIVE Home medications: per PharmD Held: amlodipine, bumetanide, mycophenolate Changed: --- New: --- Patient own medications: --- Prophylaxis: hep BID (weight) - monitor w/ Hgb decreased to 7.4 Last bowel movement: 09/18 Estimated Creatinine Clearance: 11.2 mL/min (A) (by C-G formula based on SCr of 2.76 mg/dL (H)). Baseline ~1.3 ASSESSMENT / PLAN Acute cholecystitis s/p percutaneous cholecystostomy tube & common bile duct stent (temporary) placement (08/20) & severe malnutrition s/p PEG placement Bcx NGTD, holding abx at this time If persistent pain & loose stools >3-4x daily, consider stool pathogen panel due to immunosuppression continuing home Creon with meals/feeds, selenium, zinc supplementation Paste Worker consult for continued tube feeds: recommend resuming multivitamin, per nutrition notes -on 08/27, Dr. Roberts recommended stopping selenium and giving a multivitamin twice daily PEDRITO on CKD & immunosuppression s/p renal transplant Holding home bumex and fluids given on admission Neph consult - holding diuretic and amlodipine; tacrolimus dosing, AM level pending Mycophenolate held d/t concern for infection though neph notes say to continue Continues prednisone 5 mg daily Pleural effusion, c/f pericarditis CV consult to discuss possible pericarditis treatment Continues home amiodarone, but could decrease if thought to be contributing to sinus bradycardia -follow up cards recs Changes to medications anticipated at discharge: pending clinical course Berenice Mora Pharm.D., R.Ph., BCPS [phone] * Mari Servin M.D. - 09/20/2023 8:05 AM CDT Supervisory Note - Nephrology C Service Ms. Galvan 68-year-old female who presented to the hospital for abdominal pain, nausea and poor oral intake. Her medical history significant for end-stage kidney disease s/p kidney transplant, coronary arterydisease, atrial fibrillation, abdominal aortic aneurysm, hypertension, chronic hyponatremia on osteoporosis. She has history of poor nutrition for which he had PEG tube placement in December 2022. Patient was recently admitted from 08/19 to 08/29 for acute cholecystitis and had percutaneous cholecystostomy tube placed as she was a poor candidate for surgery. Kidney history includes first kidney transplant in 2006 for ESRD due to some form of glomerulonephritis. 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 She received a second kidney transplant from a living unrelated donor through the paired kidney exchange on June 21, 2016. This was an HLA mismatch 2 of 6, CMV donor negative/recipient positive, EBV donor and recipient positive. She was induced with Thymoglobulin and continues on triple immunosuppression therapy with tacrolimus, CellCept, and prednisone 5 mg once daily. Her posttransplant course was complicated by acute borderline cellular rejection on her 4-month biopsy treated with corticosteroids. 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 She also has a history of proteinuria. 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 Our service was consulted for acute kidney injury management of immunosuppression. Her baseline creatinine is 1.3 and at the time of admission was 2.3 mg/dL. Urinalysis is bland with no proteinuria or hematuria. Her CRP was elevated and CT showed pericardial thickening concerning for pericarditis. She received 1 L of normal saline and 500 cc of LR and overall her urine output was 250 since midnight. She continues to be oliguric. Kidney transplant US is unremarkable. I think she is volume depleted from poor oral hydration and diuretics. - we would recommend to recheck tacrolimus through level - please continue hold diuretics - please give LR bolus 500 cc/hr and continue IV fluids 100 cc/hr for 10 hours - We would recommend to continue home dose of Cellcept 500 bid and prednisone, we will follow tacrolimus level and adjust dose as needed. The tacrolimus goal is 4-6. Mari Servin MD. Nephrology Fellow, PGY-6 * Sue Patrick M.D., M.P.H. - 09/20/2023 8:03 AM CDT [facility] Medicine 14 ([facility]) PROGRESS NOTE SUBJECTIVE Overnight admission Evaluated at bedside Feels improved in the 12 hours since admission though with ongoing frailty, generalized debility, intermittent nausea, abdominal pain Describes pleuritic chest pain, improved while on her side I have reviewed the current medication list. OBJECTIVE VITAL SIGNS Temperature: [36.6 ??C-37 ??C] 36.7 ??C Heart Rate: [43-49] 45 Resp Rate: [16-21] 20 Blood Pressure: (101-122)/(41-59) 112/59 SpO2: [90 %-99 %] 90 % Flow Rate (L/min): [2 L/min-3 L/min] 3 L/min Height: [165.1 cm] 165.1 cm Weight: [36.9 kg] 36.9 kg BSA (Calculated - sq m): [1.3 sq meters] 1.3 sq meters BMI (Calculated): [13.5 kg/m??] 13.5 kg/m?? Pulse Rate: [43-54] 44 PHYSICAL EXAM General: frail, chronically ill-appearing, sarcopenic ENT: Hearing grossly intact. Lungs: Clear to auscultation. No wheezes or crackles. Heart: Systolic ejection murmur best heard at the apex DIAGNOSTICS I have personally reviewed the laboratory data and imaging since admission, and in/outs for past 72hours. ASSESSMENT / PLAN Jacqueline Galvan is a 68 y.o. female w/ ESRD s/p renal transplant x2 (', '17, on Tacro, CellCept, Pred), CAD s/p PCI ('06), AAA, HTN, chronic hyponatremia, osteoporosis, chronic mesenteric ischemia, and recent hospitalization 08/19-08/29 for acute cholecystitis s/p percutaneous cholecystostomy tube due to poor surgical candidacy, course complicated by ATN -- who is admitted with subacute progressive RUQ abdominal pain, nausea, vomiting. Her initial presentation of worsening quadrant pain was concerning for possible biliary obstructionor infection. At this time we have not started antibiotics given that right upper quadrant ultrasound was overall reassuring with mild pericholecystic fluid. We consulted Cardiology due to concern for pericarditis. While does not meet criteria for pericarditis, there remains consistent symptoms with elevated inflammatory markers. We will trend inflammatory markers, and planned for cardiac MRI on Saturday. Her chronic relapsing remitting symptoms are also reminiscent of secondary adrenal insufficiency with her chronic prednisone for immunosuppression. Given our concern for pericarditis, as well as empirically treating for adrenal insufficiency, we will increase her prednisone to 10 mg daily starting tomorrow. # Acute cholecystitis s/p percutaneous cholecystostomy tube & common bile duct stent (temporary) placement (08/20) # Severe malnutrition s/p PEG placement RUQ u/s with mild pericholecystic fluid, no concern for active ongoing cholecystitis or other biliary infection - f/u peripheral blood culture - holding Abx at this time - percutaneous cholecystostomy tube set to gravity with bile bag - if persistent pain & loose stools >3-4x daily, consider stool pathogen panel due to immunosuppression - continuing home Creon with meals/feeds, selenium, zinc supplementation - implementation consultant consulted for malnutrition assessment and titration of tube feeds Home Tube Feeding Program (08/30/23): Formula: Peptamen 1.5 ([place]), Substitute Formula: Consult dietitian to determine appropriate substitute. Feeding method: Intermittent gravity Feeding schedule/goal: 3 cans/day (Given 1-1-1) # Acute on chronic renal failure # S/p renal transplant x2 (, ) # Immunosuppression (CellCept, Tacro, Prednisone) # H/o glomerulonephritis of unknown etiology # Hyponatremia, mild Cr uptrending (2.3), suspect primarily prerenal etiology in the setting of limited oral intake. UA unremarkable aside from proteinuria. Renal ultrasound performed today was unrevealing. PLAN: - continue IV fluids as needed - holding home Bumex - daily BMP - Nephrology on board for tacrolimus management, appreciate recommendations - we have continued CellCept, tacrolimus, prednisone # Pericardial effusion, small # Query pericarditis # Right pleural effusion, improved # Home oxygen requirement (1 L) # Hypertension # Sinus bradycardia # Atrial fibrillation # CAD s/p PCI ('06) Factors arguing for a potential acute pericarditis diagnosis include patient's current positional chest/abdomen pain, small pericardial effusion seen on TTE, significantly elevated inflammatory markers. However, ECG did not demonstrate overt signs of pericarditis and no friction rub was appreciatedon auscultation. PLAN: - CV on board, appreciate recommendations - planned for cardiac MRI on Saturday - for query secondary adrenal insufficiency and possible pericarditis, will start with prednisone 10 starting tomorrow - continue home Atorva 80 - continue home amiodarone 200 mg Jacqueline Galvan's case and plan of care was discussed with Dr.Jennifer Joshua Jennings. Please see supervisory note for further details. Sue Patrick M.D., M.P.H. Internal Medicine, PGY-3 [phone] * Gracia Miller Pharm.D., R.Ph., BCPS - 09/19/2023 8:46 PM CDT Images from the original note were not included. Admission Medication History Note Adherence issues: No concerns Medication list source: Patient and Family member Medication related information: - Last doses of medications (including mycophenolate, prednisone, and tacrolimus) taken on 5 AM - Removed aspirin 81 mg PO daily and sertraline 25 mg PO daily. Patient reports not taking. - Patient has Gtube, but continues to take meds PO. Prior to Admission Medications Med List Status: Pharmacy Complete Set By: Harrison Arce R.N. at 09/19/2023 8:42 PM Status Comment 09/19/2023 8:45 PM Reviewed in person with patient and her acetaminophen (TYLENOL) 500 mg tablet Take 2 tablets (1,000 mg total) by mouth 2 (two) times a day. amiodarone (PACERONE) 200 mg tablet Take 1 tablet (200 mg total) by mouth daily. amLODIPine (NORVASC) 10 mg tablet Take 1 tablet (10 mg total) by mouth daily. atorvastatin (LIPITOR) 80 mg tablet Take 1 tablet (80 mg total) by mouth at bedtime. bumetanide (BUMEX) 2 mg tablet Take 2 tablets (4 mg total) by mouth 2 (two) times a day. cholecalciferol, vitamin D3, 25 mcg (1,000 Unit) tablet Take 1 tablet (25 mcg total) by mouth daily. collagenase (SANTYL) 250 unit/gram ointment Apply 1 Application topically daily. Apply to coccyx. diphenoxylate-atropine (LOMOTIL) 2.5-0.025 mg/5 mL liquid Take 10 mL by mouth 4 (four) times a day as needed for diarrhea. kqgdvb-chvllgxb-hjaeavz (CREON) 36,000-114,000-180,[address] capsule Take 36,000 Units of lipase by mouth 4 (four) times a day. docqzksyebnq-qnxp-TH-Ca-minerals (THERAPEUTIC-M) 400 mcg (folic acid) per tablet Take 1 tablet by mouth daily. mycophenolate (CELLCEPT) 250 mg capsule Take 2 capsules (500 mg total) by mouth 2 (two) times a day. Do not break, cut, or open capsules. ondansetron ODT (ZOFRAN-ODT) 4 mg disintegrating tablet Dissolve 1 tablet (4 mg total) in the mouthevery 6 (six) hours as needed for nausea or vomiting. pantoprazole (PROTONIX) 40 mg EC tablet Take 40 mg by mouth every morning before breakfast. predniSONE (DELTASONE) 5 mg tablet TAKE 1 TABLET(5 MG) BY MOUTH DAILY selenium 50 mcg tablet Take 3 tablets (150 mcg total) by mouth daily. Takes 3/4 (0.75 tabs) of 200 mcg tab sodium chloride 0.9 % injection 5 mL 2 (two) times a day. tacrolimus (PROGRAF) 1 mg capsule Take 1 capsule (1 mg total) by mouth 2 (two) times a day. zinc sulfate (ZINCATE) 220 (50 mg zinc) capsule Take 1 capsule (220 mg total) by mouth 2 (two) times a day with meals. documented in this encounter H&P Notes * Kayli Carpio M.D. - 09/20/2023 12:24 PM CDT Supervisory note I have seen and assessed the patient with the medical team and helped to formulate the plan of care. I have personally reviewed the relevant data in the patient's medical chart. I agree with the findings, assessment and plan as written in the admission note by the medical i d sales Dr. Lopez and progress note from today by Dr. Patrick. # RUQ pain, Nausea # Elevated inflammatory markers # Positional chest pain + pericardial effusion, query pericarditis? # Acute cholecystitis s/p percutaneous cholecystostomy tube & common bile duct stent (temporary) placement (08/20) # Severe malnutrition s/p PEG placement 05/17/23, c/b gastric perforation requiring ex-lap for debridement and wound vac # Mesenteric ichemia, chronic # Acute on chronic renal failure # S/p renal transplant x2 (, ) # Immunosuppression (CellCept, Tacro, Prednisone) c/b multiple infections # Hyponatremia, mild # Hypoxemia # Hypertension # Sinus bradycardia # Atrial fibrillation on amiodarone # CAD s/p PCI (') Ms. 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 She now presents with a few days symptoms worsening nausea, right upper quadrant pain, and positional chest pain. Labs are notable for significant rise in her creatinine now up to 2.76 (this is an OVER estimate of her renal function due to low BMI), leukocytosis, elevated inflammatory markers. Unclear exactly what is driving her overall process. She clearly appears volume depleted in the setting of poor oral intake with continued use of Bumex which may have led to prerenal PEDRITO. Obviously elevated inflammatory markers, leukocytosis, and overall clinical picture are initially concerning for infection, however no obvious source has been found. Possibility of pericarditis has been raised due to positional chest pain, elevated troponins (difficult to interpret in setting of renal failure), and elevated inflammatory markers. Right upper quadrant pain was initially worrisome for complication of her recent cholecystitis, however CT scan and right upper quadrant currently appear reassuring with only mild inflammation which would be expected. Urinalysis is bland without evidence of pyelonephritis and no stranding around transplant kidney seen on scan. She is on a bit more oxygen than prior, however chest x-ray does not show any clear infiltrate and just trace effusion with atelectasis. No obvious skin and soft tissue infection. Cardiology has been consulted to assess for possibility of pericarditis and pericardial effusion, would also ask for them to comment on ongoing amiodarone given significant bradycardia. She does haveconsistent symptomatology for pericarditis, however ECG findings do not appear exactly classic. Nephrology has been consulted to assist in her significant acute kidney injury, as well as management of her immunosuppressants. We empirically decreased her CellCept on admission and had planned to double prednisone given possibility of infection, but we will change these back to her home dosages per recommendation of Nephrology. Plan to obtain ultrasound of transplant kidney with Dopplers to assessfor other causes of decline in renal function. * Rufino Lopez M.D. - 09/19/2023 6:56 PM CDT [facility] Medicine 14 ([facility]) Admission Note SUBJECTIVE CHIEF COMPLAINT Abdominal pain, PEDRITO HISTORY OF PRESENT ILLNESS Ms. Jacqueline Galvan is a 68 y.o. female who presents with several days of persistent abdominalpain. She was seen in the ED yesterday related to these symptoms, and declined inpatient admission. PMH includes ESRD s/p renal transplant x2 (', , on Tacro, CellCept, Pred), CAD s/p PCI ('), Afib (not on AC), AAA, HTN, chronic hyponatremia, osteoporosis. She was recently admitted 08/19-08/29 for acute cholecystitis and is s/p percutaneous cholecystostomy tube due to poor surgical candidacy.Course was complicated by ATN, acute hypoxic respiratory failure in the setting of pleural effusionrequiring home going oxygen (1 L). Patient and son report a longstanding history of increasing nausea with poor oral intake beginning December, eventually severe enough to prompt PEG placement and twice daily feeds. Over the last 4 days she has experienced an increase in both nausea and RUQ abdominal pain and chest pain. Feels that lying on her left side as a particular trigger for this pain. She says this pain is sometimes associated with the site of cholecystostomy tube insertion, other times deeper. While sitting still rates it as a 2/10 however jumps up significantly with movement. Endorses nausea with a couple episodes of vomiting (nonbloody). Typically has loose bowel movements in the setting of PEG feeds, reports 1 BM today and 2 yesterday, nonbloody and non-melanotic. Overall she does not feel these symptoms are that is similar to her prior acute cholecystitis presentation. Upon arrival to the ED patient was found to have sinus bradycardia but otherwise hemodynamically stable and afebrile. Initial lab evaluation notable for progression of PEDRITO (Cr 2.3, up from baseline of 1.3), Na 130, WBC 13 w/neutrophilia, CRP 141, Alk Phos 115, lactate 0.6. ECG demonstrated sinus bra dycardia with increased T-wave inversion in inferior leads, although no ST elevations meeting criteria for STEMI. Initial troponin 106, downtrended to 92 at two hours. TTE in the ED demonstrated small circumferential pericardial effusion, preserved EF, no RWA. Cross-sectional imaging not obtained, however CT A/P yesterday demonstrated small free pelvic fluid without evidence of acute intra-abdominal or intrapelvic process, cholecystostomy tube in correct position, thickened and slightly hyperdense pericardium (Radiologist recommended consideration of pericarditis if clinical picture fits). The patient was admitted to the medicine 14 service for ongoing evaluation and management of PEDRITO and abdominal pain. Upon arrival to the floor, patient lying comfortably in bed with soft but stable blood pressure (MAP 65), sinus bradycardia (HR 45-55). Afebrile, breathing comfortably on 2 L NC. Patient endorses intermittent abdominal pain in his lying on her right side to avoid exacerbation. Currently denying nausea, dyspnea, fevers, chills. A&O x5 and answering all questions. OBJECTIVE VITAL SIGNS Temperature: [36.8 ??C-36.9 ??C] 36.8 ??C Heart Rate: [43-49] 43 Resp Rate: [16-20] 20 Blood Pressure: (103-122)/(46-56) 122/50 SpO2: [91 %-99 %] 99 % Flow Rate (L/min): [2 L/min] 2 L/min Pulse Rate: [43-54] 43 PHYSICAL EXAM General: pleasant woman in no distress, laying in hospital bed, cachectic HEENT: normocephalic, atraumatic, PERRL, EOMI, sclera non-icteric CV: Regular bradycardia with 3/6 holosystolic murmur @ RUSB, no lower extremity edema, no chest wall tenderness, JVP low neck. Res: CTAB, no wheezes or crackles, appreciated, symmetric expansion, non-labored breathing Abd: soft, TTP in RUQ with mild rebounding, no guarding, non-distended, normoactive bowel sounds MSK: moving all four extremities antigravity, no pain or decreased ROM Derm: no rash or lesion on exposed skin Neuro: A&O x5, clear speech, no focal deficits, at baseline Psych: patient pleasant without anxiety, congruent mood and affect DIAGNOSTICS I have reviewed the diagnostics from admission. ASSESSMENT / PLAN Ms. Galvan is hospitalized on [facility] 14 ([facility]) for evaluation and management of Failure Renal Acute (Acute Kidney Injury) (HCC). PMH includes ESRD s/p renal transplant x2 (', , on Tacro, CellCept, Pred), CAD s/p PCI ('06), AAA, HTN, chronic hyponatremia, osteoporosis. She was recently admitted 08/19-08/29 for acute cholecystitis s/p percutaneous cholecystostomy tube due to poor surgical candidacy, course complicated by ATN. Patient presents with worsening RUQ abdominal pain in the setting of longstanding nausea and poor oral intake. Given her recent acute cholecystitis with cholecystostomy tube placement, I do worry that repeat biliary obstruction or infection could be causing abdominal symptoms and leukocytosis. We will obtain semi-urgent RUQ ultrasound this evening in addition to the previously obtained CT. It is also possible that this could represent worsening of patient's previously diagnosed chronic mesenteric ischemia, and can consider further evaluation if etiology remains unclear. Patient's ongoing loose stools are likely influenced by PEG feeds, however if > 3-4 times daily with persistent abdominal pain we will consider a stool pathogen panel as patient is currently immunosuppressed. Dietitian consult placed in the setting of severe malnutrition and ongoing tube feeds. Regarding patient's progression of PEDRITO on CKD, she appears hypovolemic on initial assessment and she has not been eating or drinking much over the past week. UA overall unremarkable, and I suspect that etiology is primarily pre- renal. I will administer 1 L LR over 2 hours with plan to recheck BMP and electrolytes tomorrow. Nephrology consulted for ongoing management of immunosuppression (currently holding CellCept in the setting of infection concern). We will also consult Cardiology in order to discuss her small pericardial effusion & elevated inflammatory markers in order to discuss potential treatment of acute pericarditis as well as potential amiodarone dose adjustment in the setting of worsened sinus bradycardia. I would be hesitant to initiate high-dose NSAID or colchicine treatment in the setting of patient's progressive PEDRITO. Patientis not currently endorsing chest pain, troponin initially elevated but stable, concern for ACS low at this time. # Acute cholecystitis s/p percutaneous cholecystostomy tube & common bile duct stent (temporary) placement (08/20) # Severe malnutrition s/p PEG placement PLAN: - f/u RUQ US - f/u peripheral blood culture - holding Abx at this time - if persistent pain & loose stools >3-4x daily, consider stool pathogen panel due to immunosuppression - continuing home Creon with meals/feeds, selenium, zinc supplementation - implementation consultant consulted for malnutrition assessment and titration of tube feeds Home Tube Feeding Program (08/30/23): Formula: Peptamen 1.5 ([place]), Substitute Formula: Consult dietitian to determine appropriate substitute. Feeding method: Intermittent gravity Feeding schedule/goal: 3 cans/day (Given # Acute on chronic renal failure # S/p renal transplant x2 (, ) # Immunosuppression (CellCept, Tacro, Prednisone) # H/o glomerulonephritis of unknown etiology # Hyponatremia, mild Cr uptrending (2.3), suspect primarily prerenal etiology in the setting of limited oral intake. UA unremarkable aside from proteinuria. PLAN: - 1 L LR bolus over 2 hours this evening - holding home Bumex - daily BMP - f/u stored Urine Na & Cr - f/u stored Cystatin C (sarcopenic, likely discordant) - AM trough Tacro level - Nephrology consulted for tacrolimus dose guidance # Pericardial effusion, small # Query pericarditis # Right pleural effusion, improved # Home oxygen requirement (1 L) # Hypertension # Sinus bradycardia # Atrial fibrillation # CAD s/p PCI ('06) Factors arguing for a potential acute pericarditis diagnosis include patient's current positional chest/abdomen pain, small pericardial effusion seen on TTE, significantly elevated inflammatory markers. However, ECG did not demonstrate overt signs of pericarditis and no friction rub was appreciatedon auscultation. Furthermore, patient has progressive PEDRITO on CKD (eGFR and consideration of high-dose NSAIDs or colchicine would likely benefit from Nephrology input as well. PLAN: - CV consult to discuss potential treatment of pericarditis - continue home Atorva 80 - continue home amiodarone 200 mg (relatively low-dose, however can consider dose adjustment if felt to contribute to sinus michael) Baseline Mobility: BMAT Level 3 (Able to stand but cannot take steps without help) Diet: renal failure/dialysis diet Tubes/lines: PIV VTE prophylaxis: heparin Code status: Full Code Disposition: Uncertain Rufino Lopez MD PGY-3, Internal Medicine Residency documented in this encounter Procedure Notes * Torito Carty M.D. - 09/22/2023 1:18 PM CDTAssociated Order(s): Thoracentesis Post-Procedure Diagnose(s): Effusion Pleural Thoracentesis Performed by: Torito Carty M.D. Authorized by: Torito Carty M.D. Care team members present 1. Sanket Lopez M.D. PROCEDURE DETAILS Patient position: sitting Location: right posterior Intercostal space: 9th Puncture method: rijn-[id number]-fpdhyo catheter Number of attempts: 1 Drainage characteristics: serous Estimated amount of fluid removed (ml): 825 Ultrasound image guidance used to localize target, identify [...] incision was made and then a 5.0 [employer] [employer] catheter was advanced while aspirating over the rib, along the previously anesthetized track, until a flash of fluid was seen. The catheter was then advanced over the needle and into the pleural space. 825 mL of serous fluid was removed. The procedure was terminated due to complete fluid evacuation Post-procedure ultrasound showed minimal residual fluid. A lung [...] Procedure successful: yes Complications: no apparent complications documented in this encounter Consult Notes * Dunia Mcclellan R.N. - 09/23/2023 2:28 PM CDTAssociated Order(s): IP CONSULT TO CARE MANAGEMENT Discharge Planning Assessment SUBJECTIVE Assessment Information Referral Source: CM/MARIVEL Referral Referral Reason: Discharge Planning Previous assessment done on: 05/18/23 Primary Language: Guamanian [employer] Used: No Person(s) present during interview: Person(s) Present During Interview: patient History of Present Illness #1 Abdominal Aortic Aneurysm Without Rupture Unspecified (HCC) #2 Hypertensive Chronic Kidney Disease With Stage 1 Through Stage 4 Chronic Kidney Disease, Or Unspecified Chronic Kidney Disease #3 Transplant Renal (HCC) #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) #5 Coronary Artery Disease Without Angina Pectoris #6 Malnutrition Severe Protein-Calorie (HCC) #7 Failure Renal Acute (Acute Kidney Injury) (HCC) Social History Marital Status: Family / Household: lives with Support System: spouse Finance/Insurance Primary insurance: [facility] Secondary insurance: MEDICARE benefits: No Advance Directives Legal Decision Maker: Self Advance Directives: N/A Advance Directives Status: N/A OBJECTIVE Baseline Functional Status Baseline Activities of Daily Living Mobility: Independent Dressing: Needs assistance Feeding: Needs assistance Bathing: Needs assistance Grooming: Needs assistance Toileting: Needs assistance Behavior: Appropriate Communication: Talks, Understands speaking, Understands Guamanian Shopping: Needs assistance Medication Management: Needs assistance Housekeeping: Needs assistance Meal Prep: Needs assistance Assistive Devices: Walker - four wheeled, Oxygen, Wheelchair - manual Services/Resources: Home health Agency Name: [facility] Provided: nursing Transportation: Support from family Managing Finances: Needs assistance Baseline Services/Resources Primary care clinic and provider: ELSEWHERE, PCP Services/Resources: Home health Additional Resources: n/a Anticipated Needs Functional Status: Bathing, Dressing, Transportation use (drive car, use taxi/bus), Shopping, Housekeeping Assistive Devices: None Agency Name: [facility] Provided: nursing Anticipated Modifications to the Patient's Home: None Transportation Needs: Support from family Does the patient need discharge transport arranged?: No Anticipated [place] [facility] [place] Assessment: The camp boss met with Jacqueline Galvan to discuss her current hospitalization and home going needs. The patient was unaccompanied. The patient was a reliable historian. The role of RN CaseManager was reviewed. The patient reviewed her prior level of care and support system. The patient receives support from her . The patient described her living environment as a multiple level home with level entry. Housekeeping, grocery shopping, meal prep, and other household responsibilities have previously been completed by patient's . camp boss discussed the patient's potential needs at dismissal based on their home setting, previous needs and responsibilities, homebound status, and relevant assessments with the patient. The patient will be safe and supported to return home with [facility] or previous services noted above when medically ready. Support will be provided by Silvino. The patient demonstrated understanding when discussing her home going plans and anticipated needs. Patient has no concerns about returning home once medically stable. At this time, the care team anticipates the patient requires the following service(s) to be reconnected: home healthcare and oxygen. The patient identified the following as their current vendor(s): [employer] and [employer]. After reviewing the patient's chart and meeting with the patient, the camp boss deemed the LACE+/readmission questions were appropriate. The patient explained that her current admission was dueto renal failure.The patient stated that she had no difficulty obtaining, understanding, or using her medications as directed. The patient reports no other concerns regarding her medications. A primary care provider has been identified; Tammy RODGERS [phone] The patient stated her current readmission could not have been prevented. The camp boss will share this information with the care team. The patient reports understanding that she will dismiss from the hospital when medically stable. Pending hospital course and medical readiness, no barriers to dismissal have been identified at this time. Plan: The patient agrees with the following plan. Patient's anticipated discharge disposition is: Home with Home Healthcare Reconnected: [facility] [employer] and [facility] Transportation upon dismissal will be provided by family--Silvino . camp boss recommended reaching out to family, friends, and neighbors for assistance. camp boss provided information regarding the dismissal process. camp boss placed or requested the following hospital-based consult orders and/or referrals: None. camp boss will continue to assess for homegoing needs with the interdisciplinary team. camp boss encouraged the patient to reach out with any questions/concerns. Signed by: Dunia Mcclellan R.N. 09/23/2023 * Gracia Lopez P.T., D.P.T. - 09/23/2023 9:04 AM CDT Physical Therapy Inpatient Evaluation/Treatment SUBJECTIVE Patient's Name: Jacqueline Galvan Referring/Attending Provider: Fatemeh Newman M.D. Reason for Referral: Physical Therapy Evaluate and Treat Pertinent Medical / Surgical History: Jacqueline Galvan has a past medical history of Chronic Kidney Disease NOS, Coronary Artery Disease (Unspecified), Heart Failure NOS, Hyperlipidemia, Pain Abdominal NOS, and Shortness Of Breath. Jacqueline Galvan has a past surgical history that includes kidney transplant - recipient of living donor with back table prep of kidney allograft (N/A, 06/21/2016); Parathyroidectomy - Subtotal (N/A, 07/30/2007); Transplant Kidney - Recipient of Living Donor (N/A, 01/31/2007); Exploration Abdominal (N/A, 05/19/2023); Application Wound Vac Abdomen (N/A, 05/19/2023); Gastrostomy (N/A, 05/19/2023);INSERTION CENTRAL VENOUS LINE (Right, 05/19/2023); Debridement and Irrigation - Abdominal Wound (N/A, 05/29/2023); Injection Restylane (Right, 06/18/2023); and MICROLARYNGOSCOPY (N/A, 06/18/2023). History of Present Illness: Jacqueline Galvan is a 68 y.o. female who was admitted to [facility] in [place] on 09/19/2023 for Effusion Pericardial Acute (HCC) [I30.9] Failure Renal Acute (Acute Kidney Injury) (HCC) [N17.9] Pain Chest [R07.9] Prolonged QT Interval [R94.31]. Relevant Medical History: Ms. Galvan is a 68 year old female admitted 09/18/24 due to right upper quadrant pain. She has been admitted several times and most recently was home with her spouse, as well as a nurse who assisted with tube feeding and reportedly was with the patient daily from 8am-3:30pm.She has a history of falls, end stage renal disease s/p renal transplants in 2006 and 2016, coronary artery disease with pci, abdominal aortic aneurysm, hypertension and osteoporosis. Precautions Other Precautions: respiratory, fall, aspiration RST PT/OT Falls screen: Fall in the last 12 months: Yes Did you have an injury with the fall: Yes Are you fearful of falling: Yes Home Living and Equipment: Lives with: Spouse/Significant other Receives help from: Family Type of Home: House Home Layout: Multi-Level Able to live on main level with bedroom/bathroom Home Access: Stairs to enter: Number of steps: 3, Railing: right handrail Stairs to alternate level: standard flight of stairs Bathroom Accessibility: Accessible via walker Shower: Walk-in Shower Toilet: Comfort Toilet Toilet Equipment: No grab bars; uses walker for stability Assistive Device Owned: Front wheeled walker Adaptive Equipment Owned: Financial Services Rep, reports she does not use any dressing aids Other DME Owned: adjustable bed- can raise and lower Prior Level of Function and Mobility: Basic Activities of Daily Living: Independent Instrumental Activities of Daily Living: Independent Uses grocery delivery service Functional Mobility: Independent, Modified Independent - has a front wheeled walker but typically ambulates around the house independently. Driving: No Leisure Interests: activities with her kids and 10 grandchildren Pain Assessment: Pain not reported during session. Patient/Caregiver Goals: Return to home Subjective Comments: Patient Nursing agreed to session. OBJECTIVE Vital Signs: Vitals taken during session: HR 93-95%, initially on 1L O2 via NC but with removal of supplemental O2 saturations >93%. HR 40's, Blood pressure within normal limits post mobility. Vitals monitored throughout session; within normal ranges. Evaluation Assessments: Strength: Generalized weakness Functional strength for transfers and gait Range of Motion: Generalized weakness Functional for transfers, gait and bed mobiity Balance: Static Sitting: Good (Maintains balance without support) Dynamic Sitting: Good (Maintains balance without support) Static Standing: Fair (Maintains balance with handheld assist) Dynamic Standing: Fair (Maintains balance with handheld assist) Activity Tolerance: Endurance: Tolerates 10-20 minutes of activity Cognition: Alert, Disoriented to date. Sensation/Perception: Grossly intact to light touch bilateral feet. Outcome Measures: [facility] Inpatient Short Form: -[facility] Basic Mobility (V.2) How much help from another person do you currently need???If the patient hasn't done an activity recently, how much help from another person do you think he/she would needif he/she tried? 1. Turning from your back to your side while in a flat bed without using bedrails?: None 2. Moving from lying on your back to sitting on the side of a flat bed without using bedrails?: None 3. Moving to and from a bed to a chair (including a wheelchair)?: A Little 4. Standing up from a chair using your arms (e.g., wheelchair, or bedside chair)?: A Little 5. To walk in hospital room?: A Little 6. Climbing 3-5 steps with a railing?: A Little -[facility] Basic Mobility (V.2) Raw Score: 20 -[facility] Basic Mobility (V.2) Standardized Score: 43.99 Interpretation: Based on scoring guidelines using the raw score value: Those going to home had an average score at or above 18 Those going to facility had an average score at or below 17 Clinicians answer the -[facility] Inpatient Short Form based on observed patient activity and/or clinical judgment (ie. patient can be scored without physically performing each activity) Therapeutic Interventions: SUPINE TO SIT: Assistance Level: Modified Independent SIT TO SUPINE: Assistance Level: Modified Independent SIT TO STAND: Assistance Level: Contact Guard Assistance, Minimal Assistance of 1, +1 for safety Device: gait belt and front wheeled walker Surface: Bed and Chair Assistance/Cueing: verbal, tactile, and visual for Adherence to activity precautions, Breathing technique, Sequencing, and Technique Delivery: educated, instructed, and assessed STAND TO SIT: Assistance Level: Contact Guard Assistance, Minimal Assistance of 1, +1 for safety Device: gait belt and front wheeled walker Surface: Bed Assistance/Cueing: verbal, tactile, and visual for Adherence to activity precautions, Breathing technique, and Walker placement Delivery: educated, instructed, assessed, and facilitated GAIT: Distance: 3m +3m meters Assistance Level:Contact Guard Assistance, Minimal Assistance of 1, +1 for safety Device: gait belt, front wheeled walker, and and no AD Quality: decreased gait speed, decreased heel strike, decreased step height, decreased step length,decreased toe off, downward gaze, forward flexed posture, guarded, shuffling, unsteady without use of front wheeled walker. Assistance/Cueing:verbal, tactile, and visual for Adherence to activity precautions, Breathing Techniques, Forward gaze, Pacing, Sequencing, Technique, and line management Delivery: educated, instructed, assessed, facilitated, and modified Comments: Patient experienced one large loss of balance to the posterior left with transition to sitting with staggering elicited. THERAPEUTIC EXERCISE: Seated Therapeutic Exercise: Side: bilateral, lower extremity(ies) Mode: active range of motion Exercises: Ankle pumps, Long arc quads, and Marching Repetitions: 3 Assist/cueing: Full range of motion Education: Provided education on role of physical therapy in the acute setting. Collaborated with patient and/or family on goals and plan of care. Home Safety/Fall Prevention: -Educated patient/caregiver regarding home safety and fall prevention strategies to promote safety and independence including use of recommended assistive device, wearing non-slip footwear, ensuring clear pathways, removing throw rugs, and good lighting throughout the home. The patient's status was discussed and the following coordination of care occurred with the RN Patient was left in bed at end of session with call light in reach, all needs met and questions answered. Assessment Discharge Therapy Needs - PT: Ongoing skilled physical therapy (pending hospital course) Skilled therapy can include physical therapy provided by home health, outpatient clinic, or a post-acute facility. The location of these services is determined by the patient's care team in partnership with patient/family. Level of Care Needed - PT: Assistance with bed mobility, Assistance with transfers (Comment), Assistance with walking and moving around the home, Assistance with stairs, Physical assistance needed, Cognitive assistance needed (assist of 1 with) Equipment Recommended - PT: Front-wheeled walker Patient owns. Barriers to Discharge Home: Current functional status, Fall risk, Safety concerns From a physical therapy perspective, the level of care above has been recommended for Ms. Galvan after hospital discharge. This level of care is based on her functional abilities during today's session. This may change throughout the hospital course and will be updated as appropriate. Clinical Impression: Currently, patient presents with decreased strength, impaired dynamic balance, decreased activity tolerance, decreased safety awareness, and cardiopulmonary impairments resulting in the following impaired transfers, impaired gait, impaired ability to complete ADLs, and impaired ability to complete stairs. Ms. Galvan was agreeable to session, reports in the past other therapists were not a goodfit, care taken to pre-assign another therapist that may be a good match for patient's demeanor. She required no more than minimal assistance for all mobility, though does have a loss of balance during mobility which supports continued physical assistance upon dismissal. She has no concerns with returning home with her spouse. She will need to negotiate 3 standard steps for homegoing, but feels now that her fluid has been removed this shouldn't be an issue. [facility] may be beneficial to have follow-up physical therapy upon dismissal to further reduce fallrisk and increase functional strength/activity tolerance to reduce risk of readmission. Physical therapy treatment is medically necessary to restore and maximize function, maximize safetyand facilitate discharge to home, teach and educate the patient and/or caregivers. Progress: Slow progress, limited activity tolerance, Slow progress, multiple refusals, Slow progress, cognitive deficits, Slow progress, mental health limiting progress Plan PT Plan Comments: Continue to progress functional mobility and lower extremity exercises appropriate. Stairs when appropriate. Continue to work on rolling/supine<> sit transfers/sit<> stand transfers and progress ambulation initiating use of front wheeled walker increasing distance and frequency as tolerated with chair follow. Recommended activity goals: Delirium prevention/intervention measures, chair 3x/day using front wheeled walker/gait belt assist x1, progress mobility with therapy, active participation in ADLs, repositioning every 2 hours encouraging active patient participation. Functional Goals: PT Inpatient Goals PT Goal #1: Patient will be modified independent with supine<>sit transfers with adjustable bed features to progress towards functional independence. PT Goal #1 Status: Progressing PT Goal #2: Patient will be independent/modified independent utilizing most appropriate gait devicewith sit<>stand transfers to progress towards functional independence. PT Goal #2 Status: Progressing PT Goal #3: Patient will be modified independent utilizing most appropriate gait device ambulating a distance of 60 m to progress towards functional independence. PT Goal #3 Status: Progressing PT Goal #4: Patient will negotiate 3 standard steps with 1 rail with supervision using least restrictive assistive device to progress towards home going mobility. PT Goal #4 Status: Ongoing Jacqueline Galvan has Good rehab potential to meet the expected outcomes in a reasonable period of time. Treatment Plan: Plan: Plan of care initiated PT Amount: 1 visit per day PT Frequency: 5 times per week PT Inpatient Duration : Until goals are met or hospital discharge Requires Inpatient Follow-Up: Yes PT - Next Inpatient Appointment: 09/24/23 Patient agrees with the plan of care and goals. Treatment interventions may include: Treatment/Interventions: Therapeutic exercise, Therapeutic functional activity, Gait training, Self-care/home management, Neuromuscular re-education Tiered PT Evaluation Codes: Comorbid Conditions: Cardiopulmonary disease, Renal disease Personal Factors: Balance impairment, Sedentary lifestyle, Needs assistive device, Emotional status, Age Examination elements: 3 Clinical Presentation: Evolving Clinical Decision Making: Moderate complexity clinical decision making Billing: Time Spent with Patient Evaluations PT Eval - Mod Complexity: 8 min Therapeutic Interventions Therapeutic Activity (min): 24 min Time Tracking Total Timed Units (min): 24 min Total Treatment Time (min): 32 min Fatemeh Lopez P.T., D.P.T. * Virginia Escalante M.S., O.T. - 09/22/2023 8:47 AM CDT Occupational Therapy [facility] Inpatient Evaluation/Treatment SUBJECTIVE Patient's Name: Jacqueline aGlvan Referring/Attending Provider: Kayli Carpio M.D. Reason for Referral: Occupational Therapy Evaluation and Treatment PERTINENT MEDICAL / SURGICAL HISTORY: Jacqueline Galvan has a past medical history of Chronic Kidney Disease NOS, Coronary Artery Disease (Unspecified), Heart Failure NOS, Hyperlipidemia, Pain Abdominal NOS, and Shortness Of Breath. Jacqueline Galvan has a past surgical history that includes kidney transplant - recipient of living donor with back table prep of kidney allograft (N/A, 06/21/2016); Parathyroidectomy - Subtotal (N/A, 07/30/2007); Transplant Kidney - Recipient of Living Donor (N/A, 01/31/2007); Exploration Abdominal (N/A, 05/19/2023); Application Wound Vac Abdomen (N/A, 05/19/2023); Gastrostomy (N/A, 05/19/2023);INSERTION CENTRAL VENOUS LINE (Right, 05/19/2023); Debridement and Irrigation - Abdominal Wound (N/A, 05/29/2023); Injection Restylane (Right, 06/18/2023); and MICROLARYNGOSCOPY (N/A, 06/18/2023). History of Present Illness: Jacqueline Galvan is a 68 y.o. female who was admitted to [facility] in [place] on 09/19/2023 for Effusion Pericardial Acute (HCC) [I30.9] Failure Renal Acute (Acute Kidney Injury) (HCC) [N17.9] Pain Chest [R07.9] Prolonged QT Interval [R94.31]. Relevant Medical History: Patient is a 68 y.o. who was admitted to [facility] for worsening nausea, right upper quadrant pain, and positional chest pain. Precautions Other Precautions: respiratory, fall, aspiration Falls screen: Fall in the last 12 months: Yes -- during hospitalization earlier this year Fearful of falling? Yes Pain Assessment: Pain Ratin/10 on a 0-10 point scale Patient endorses shortness of breath limiting her activity this session. Subjective Comments: Patient greeted in bed and agreeable to therapy session. Team Communication: The patient's status was discussed and coordination of care occurred with RN Home Living and Equipment: Lives with: Spouse/Significant other Receives help from: Family Type of Home: House Home Layout: Multi-Level Able to live on main level with bedroom/bathroom Home Access: Stairs to enter: Number of steps: 3, Railing: right handrail Stairs to alternate level: standard flight of stairs Bathroom Accessibility: Accessible via walker Shower: Walk-in Shower Toilet: Comfort Toilet Toilet Equipment: No grab bars; uses walker for stability Assistive Device Owned: Front wheeled walker Adaptive Equipment Owned: Financial Services Rep, reports she does not use any dressing aids Other DME Owned: adjustable bed- can raise and lower Prior Level of Function and Mobility: Basic Activities of Daily Living: Independent Instrumental Activities of Daily Living: Independent Uses grocery delivery service Functional Mobility: Independent, Modified Independent - has a front wheeled walker but typically ambulates around the house independently. Driving: No Leisure Interests: activities with her kids and 10 grandchildren Patient/Caregiver Goals: Return to prior level of function OBJECTIVE Vital Signs: Vitals taken during session: Pulse rate: 47 bpm, Blood pressure: 155/70 mmHg, O2 sats: 95%, and O2 flow: 4 L/min nasal cannula (vitals assessed following intervention) Evaluation Assessment: STRENGTH: Generalized weakness RANGE OF MOTION: Upper extremities within functional limits Lower extremities within functional limits BALANCE: Static Sitting: Good (Maintains balance without support) Dynamic Sitting: Good (Maintains balance without support) Static Standing: Good (Maintains balance without support) Dynamic Standing: Good (Maintains balance without support) ACTIVITY TOLERANCE: Endurance: Tolerates less than 10 minutes of activity HEARING/VISION: Hearing: Hearing Intact Outcome Measures: -[facility] Inpatient Short Form: Putting on and taking off regular lower body clothing?: None Putting on and taking off regular upper body clothing?: None Taking care of personal grooming such as brushing teeth?: A Little Bathing (including washing, rinsing, drying)?: A lot Toileting, which includes using toilet, bedpan, or urinal?: None Eating meals?: None Daily Activities Raw Score (max 24): 21 Daily Activities Standardized Score: 44.27 Interpretation: Based on scoring guidelines using the raw score value: Those going to home had an average score at or above 18 Those going to facility had an average score at or below 17 Clinicians answer the [facility] Inpatient Short Form based on observed patient activity and/or clinical judgment (ie. patient can be scored without physically performing each activity) Cognition: No observable concerns with cognition at this time Will further assess and monitor as warranted Therapeutic Interventions: ACTIVITIES OF DAILY LIVING: GROOMING - Assist Level: Supervision/Set-up - Patient Location: Seated on edge of bed - Activity: Washing face - Therapist Delivery: assessed, facilitated - Assist/Cues: none TOILETING - Assist Level: Independent - Patient Location: Toilet - Activity: clothing management, pericare - Therapist Delivery: assessed, facilitated - Assist/Cues: none BED MOBILITY: SUPINE to SIT - Assist Level: Independent - Device: head of bed elevated - Therapist Delivery: assessed, facilitated - Assist/Cues: none SIT to SUPINE - Assist Level: Independent - Device: head of bed elevated - Therapist Delivery: assessed, facilitated - Assist/Cues: verbal for boosting toward head of bed FUNCTIONAL TRANSFERS: SIT<>STAND - Assist Level: Modified Independent - Equipment: front wheeled walker; patient refused gait belt and slipper socks (belt is too painfularound her abdomen) Therapist encouraged use, but patient began standing and ambulating without. Therapist held onto patient's waist for safety. - Surface: Bed - Therapist Delivery: assessed, instructed, educated, assisted, facilitated - Assist/Cues: manual - raised height of bed TOILET TRANSFER - Assist Level: Modified Independent - Equipment: front wheeled walker; patient refused gait belt and slipper socks. Therapist held ontopatient's waist for safety. - Approach: To and From, Ambulating - Surface: Toilet - Therapist Delivery: assessed, instructed, educated, assisted, facilitated - Assist/Cues: none RELAXATION/COPING: Education and guided practice with: - Diaphragmatic breathing -Instructed the patient to take deep breaths throughout the session due to shortness of breath. O2 sats remained high throughout session. Patient was left in bed at end of session with call light in reach, all needs met and questions answered. Assessment Discharge Therapy Needs - OT: Ongoing skilled occupational therapy Skilled therapy can include occupational therapy provided in home health, outpatient or post-acute facility. The location of these services is determined by patient's care team in partnership with patient/family. Barriers to Discharge Home: Current functional status, Fall risk, Safety concerns Recommended Adaptive Equipment - OT: Shower chair with back, Grab bar(s) in shower, Grab bar(s) by toilet, Toilet safety frame, Dressing aids Level of Care Needed - OT: Assistance with toilet/shower transfers, Assistance with showering/bathing, Assistance with meal preparation, Assistance with transportation, Assistance with housekeeping, Assistance with shopping, Physical assistance needed Clinical Impression: Currently, patient presents with impairments including pain, decreased strength, decreased activitytolerance, and safety concerns resulting in functional deficits including impaired functional mobility and decreased independence with self care tasks. Today, patient demonstrated the bed mobility with independence and a toilet transfer with modified independence and contact guard assist. Her greatest limiting factor throughout the session was shortness of breath despite O2 sats in the mid 90s. The patient would benefit from additional skilled occupational therapy sessions while hospitalized toimprove her functional independence, activity tolerance, and to discuss various techniques to prevent falls and ensure safety upon discharge. Plan OT Plan Comments: Next session: cognition screen, standing grooming tasks, energy conservation techniques Functional Goals: OT Goal #1: Patient will complete toileting task and toilet transfer with modified independence to increase patient's functional independence by discharge. OT Goal #1 Status: Achieved OT Goal #2: Patient will complete standing/seated grooming task at the sink side with supervision to increase patient's functional independence by discharge. OT Goal #2 Status: Progressing OT Goal #3: Patient will be able to verbalize understanding and recall at least 3 energy conservation techniques to increase ease and safety in performing self- care tasks and mobility in home environment. OT Goal #3 Status: Slowly progressing Progress: Progressing toward goals Rehab potential: Ms. Galvan has good potential to achieve established occupational therapy goals within the time frame outlined below. OT Frequency: OT Amount: 1 visit per day OT Frequency: 3 times per week OT Inpatient Duration : Until goals are met or hospital discharge Requires Inpatient OT Follow-Up: Yes OT - Next Inpatient Appointment: 09/23/23 Plan: Plan of care initiated Treatment interventions may include: Treatment Interventions: Therapeutic exercise, Therapeutic functional activity, Self-care/home management, Cognitive skills training Occupational Therapy Attestation Statement: Patient agrees with the plan of care and goals. Billing: Tiered OT Evaluation Codes: Comorbid Conditions: Cardiopulmonary disease, Renal disease Personal Factors: Balance impairment, Sedentary lifestyle, Needs assistive device, Emotional status, Age Occupational Profile and History review: Expanded Performance Deficits: 3 - 5 performance deficits Evaluation Complexity: Moderate Time Spent with Patient Evaluations OT Eval - Mod Complexity: 8 min Therapeutic Interventions Home Management Training (min): 24 min Time Tracking Total Timed Units (min): 24 min Total Treatment Time (min): 32 min Virginia Escalante M.S., O.T. * Cipriano Pang M.D. - 09/20/2023 12:44 PM CDT SUBJECTIVE REASON FOR CONSULT Query pericarditis. HISTORY OF PRESENT ILLNESS This is a supervisory note for medical student, Kiley Osuna, as well as Dr. Vamshi Joy. I have seen and evaluated the patient with Ms. Osuna. I have reviewed the notes by Ms. Osuna and Dr. Joy and agree with the content contained within them with the following addendums: Mrs. Galvan is a very pleasant 68-year-old female who we were consulted for recommendations for apossible acute pericarditis and bradycardia in the setting of amiodarone for atrial fibrillation with prior rapid ventricular response. She has a past medical history of end-stage renal disease with prior renal transplantation x2 on chronic immunosuppressive therapy with prednisone, tacrolimus, andmycophenolate, coronary artery disease with prior PCI in 2005, chronic malnutrition and mesenteric ischemia, hypertension, hyperlipidemia, and a recent complicated history of admission for acute cholecystitis in July with percutaneous cholecystostomy tube placement complicated by bilateral pleural effusions and pericardial effusions as well as new-onset atrial fibrillation with rapid ventricularresponse. She was initially on amiodarone per the Heart Rhythm Team. She was ultimately discharged on amiodarone and no anticoagulant therapy. She was unfortunately readmitted on 09/17 with worsening abdominal pain and discomfort. There was some concern for a possible intraabdominal infection. Her pain is on the right side in the right upper quadrant, which does radiate up a bit. The pain is made worse with twisting motions or turning side to side in the bed. She does feel that it hurts more to lie back, but she actually feels best lying down on her right side. She does have the head of her bed elevated and tells me she would have discomfort if lying flat. A CT abdomen was performed, which did show no obvious intraabdominal or intrapelvic processes which were new outside of some small freepelvic fluid. The pericardium was thickened and had some slight enhancement with actually less fluid than previously and the suggestion was possible underlying pericarditis. Her CRP is elevated at 127 and subsequently increased to 142. Cardiology is consulted today for further recommendations. At this time, she continues to have the right upper quadrant pain. The pain is responsive to narcotic medications. It, again, is made worse with taking a very deep breath in which she will feel some pain that is a little bit higher on her chest. She was lying on her right side when we came into theroom and says that as long as she lies in his position she actually feels quite good. She denies any current shortness of breath, though does have some supplemental oxygen. She denies any lower extremity edema. REVIEW OF SYSTEMS All systems are reviewed and negative except as per HPI above. OBJECTIVE PHYSICAL EXAMINATION General: Lying in bed in no acute distress. Eyes: Anicteric sclerae. Mouth: Moist mucous membranes. Neck: Normal JVP. Heart: Regular rate and rhythm. Grade 2/6 systolic murmur heard best at the right upper sternal border. No diastolic murmur is appreciated. No pericardial friction rub. Lungs: Clear to auscultation bilaterally with some decreased breath sounds at the right lung base. Extremities: No significant lower extremity edema. ASSESSMENT / PLAN #1 Right upper quadrant pain, query pericarditis #2 Recent hospitalization for acute cholecystitis with prior percutaneous cholecystostomy tube and common bile duct stent placement #3 Severe malnutrition with prior PEG implantation #4 [id number] renal failure in the setting of prior renal transplantation, on chronic immunosuppression with CellCept, tacrolimus, and prednisone #5 Hypertension #6 Atrial fibrillation, on amiodarone with sinus bradycardia #7 Coronary artery disease with prior percutaneous intervention in 2005 It was a pleasure seeing Mrs. Galvan today with the Cardiology consult team. I reviewed with her all the below-mentioned medical recommendations. It is unclear to me whether or not her symptoms do represent pericarditis. I reviewed the CT scan images and agree there is some slight enhancement of the pericardium anteriorly but otherwise there is no specific stranding or other clinical features that definitely suggest pericarditis. Her inflammatory markers are elevated, but there is ongoing investigation as to any specific intraabdominal process or infection. Her symptoms are not entirely classical for pericarditis, though she has some features that would say yes and others no. Ultimately, I think a cardiac MRI would likely be beneficial to evaluate the pericardium and look for any evidence of delayed enhancement. Unfortunately, given the acute renal failure, I would not perform this right away until we see how her transplanted kidney responds. The gadolinium would not have any adverse effects to her transplanted kidney, but I do not want her renal function to continue to worsen and then we give her gadolinium. Rather, at this point, I would agree with medical optimization from the standpoint of her renal failure over the weekend, and if her symptoms persist, then we will plan for a cardiac MRI on Saturday. While we could consider empiric therapy for pericarditis, unfortunately, due to her chronic steroiduse, use of amiodarone, and renal dysfunction, we are quite limited on any of our choices. She likely would not be on more than colchicine 0.3 mg daily with all of these medications and renal failure, and I think there is no clear benefit to this. Similarly, NSAIDs are not a great idea at this time in the setting of her anemia, and given her recent percutaneous procedures, high-dose aspirin does carry an increased bleeding risk. Likely we would need to consider higher-dose steroid therapy, which if there is any concern for infection that would increase the risk of that infection worsening. Again, in all of these settings, I would favor medical optimization over the weekend first and if ongoing concerns plan to proceed with a cardiac MRI on Saturday to evaluate the pericardium and make further plans at that time. In regard to the question of bradycardia, she is overall asymptomatic in regard to this. Her EKG yesterday had rates in the 50s, though has been lower today. For now, would continue on the amiodaroneas planned as long as she is asymptomatic. If there are concerns, we could certainly hold the amiodarone, but it will likely be in her system for quite some time until it fully resolves. Would hold off on any other AV kris blocking agents as is currently being done. Mrs. Galvan was in agreement with the above-mentioned plan, and all of her questions were answered to her satisfaction. The Cardiology Team will continue to follow along. The remainder of the plan is per the excellent notes by Kiley Osuna and Dr. Vamshi Joy. Cipriano Pang M.D. CT CT Job ID: [id number] * Gita Sanders, NANDON, LD - 09/20/2023 11:39 AM CDTAssociated Order(s): IP CONSULT TO DIETITIAN; IP CONSULT TO DIETITIAN Clinical Nutrition: Initial Assessment Clinical Nutrition was requested to evaluate patient for assessment of nutritional status and tube feeding recommendations/management SUBJECTIVE Ms. Galvan is a 68 y.o. female admitted for acute renal failure, abdominal pain and increased nausea. Nutrition related medical/surgical history: ESRD s/p renal transplant x2 ('07, '17, on [place], CellCept, Pred), CAD s/p PCI ('06), Afib (not on AC), AAA, HTN, chronic hyponatremia, osteoporosis, chronic mesenteric ischemia. She was recently admitted 08/19-08/29 for acute cholecystitis and is s/p percutaneous cholecystostomy tube due to poor surgical candidacy. Completed visit with patient today as part of face to face care. Current Nutrition (since admission): Patient reports that despite having a diet order, she has not eaten anything yet. She doesn't like the hospital food, shares family may be bringing in food for her. Nutrition history: Patient reports that she gets hungry, wants to eat and was eating a lot prior to admission. To clarify a lot, she shared that she would eat 2 cups Special K with strawberries +yogurt and fruit at breakfast, then 1-2 slices of buttered cinnamon toast for a mid-morning snack, followed by ~1 cup tuna salad at lunch + other items. If she has a big dinner planned, she will holdthe tube feeds at that meal. She reports taking 2 cartons of Peptamen 1.5/day HEAD BUCKER. However, over the past 3-4 days HEAD BUCKER, she couldn't eat because her stomach hurt, but continued to do TF's. She reports a usual weight of 91 pounds at home; is unable to gain weight. She reports 1 BM/day at home. Took m ultivitamin at home. OBJECTIVE Current nutrition orders: Dietary Orders (From admission, onward) Start Ordered 09/19/231939 Adult Diet Regular; Renal (Chronic Kidney Disease) Diet effective now Question Answer Comment Diet texture: Regular Other restrictions: Renal (Chronic Kidney Disease) 09/19/231938 Tube Information: 08/21/23: GI replaced PEG with a 14 bengali ELDER PEG, balloon tube. GI Function: Last BM Date: 09/19/23, [place] Stool Chart: Type 7: Watery, no solid pieces, Passing Flatus: Yes Medications: Scheduled Meds:amiodarone, 200 mg, oral, Daily atorvastatin, 80 mg, oral, Daily at bedtime heparin (porcine), 5,000 Units, subcutaneous, Q12H JORGE [id number]-[id number]-[id number], 36,000 Units of lipase, oral, 4x Daily pantoprazole, 40 mg, oral, Daily before breakfast predniSONE, 5 mg, oral, Daily selenium, 150 mcg, oral, Daily sennosides-docusate sodium, 1 tablet, oral, BID tacrolimus, 1 mg, oral, BID zinc sulfate, 220 mg, oral, BID with meals Continuous Infusions: PRN Meds:. bisacodyL HYDROmorphone HYDROmorphone ondansetron polyethylene glycol prochlorperazine Edisylate Anthropometrics: Height: 165.1 cm Admission Weight: 36.9 kg (09/19/2023) Current Weight: 36.9 kg [place] Body Weight (Calculated) : 56.9 kg BMI (Calculated): 13.5 kg/m?? Weight change since admission: 0 kg Net IO Since Admission: -250 mL [09/20/23 1140] Weight history: Wt Readings from Last 12 Encounters: 09/19/23 36.9 kg 09/18/23 40 kg 09/09/23 40.8 kg 09/06/23 42.5 kg 08/27/23 41.6 kg 07/15/23 43.7 kg 01/01/22 52.9 kg 01/05/21 62 kg 08/17/20 60.7 kg 08/21/19 59.3 kg 06/24/18 59 kg 06/24/18 60 kg Weight Change History: 05/09/23: 39.2 kg; 07/14: 43.7 kg; 08/26: 41.6 kg; 09/18: 36.9 kg - loss of 6.8 kg (16%) over the past 2 months, patient notes most of weight loss over the past couple days. Wt lossis clinically significant. Estimated Needs: Total Calorie Needs: 2192-3660 calories/day Method to Estimate Energy Needs: kcal/kg (30-35 kcal/kg) Weight Used for Equation Calculations: 36.9 kg Total Protein Needs: 37 - 48 grams/day (Method to Estimate Protein Needs (g/kg): 1 - 1.3 gm/kg) Weight Used to Calculate Protein Needs (Kg): 36.9 kg Nutrition Diagnosis: Inadequate oral intake related to abdominal pain and nausea as evidenced by weight loss Malnutrition Criteria: Severe Malnutrition The patient does meet the ASPEN Criteria of malnutrition based on: Energy Intake: Unable to Assess Interpretation of Weight Loss: greater than 5% 1 month Body Fat: Severe Loss Muscle Mass: Severe Loss Fluid Accumulation: Absent This is in the context of Acute Illness or Injury (acute on chronic malnutrition). ASSESSMENT / PLAN ASPEN Criteria Malnutrition Status: Severe Malnutrition Nutrition Intervention: Interventions: Increase nutrient intake with small, frequent meals and/or snacks, Vitamin and mineral supplements, Enteral nutrition, Collaboration and referral of nutrition care. Recommendations: Continue current diet order. For tube feeds, given weight loss and likely decreased intake in the hospital, would like to feed slightly more than usual. Suggest Peptamen 1.5, goal of 300 mL three times daily (can start at goal).This provides 1350 calories, 61 grams protein, less than 100% US Reference Dietary Intake for vitamins/minerals in 900 mL. 30 mL water before and after feeds. When she returns home, she can resume her previous program of Peptamen 1.5, 2-3 cartons/day, depending on oral intake. Anticipate she will eat better at home than here. Noted she is receiving zinc and selenium supplementation. On 08/27, Dr. Roberts recommended stoppingselenium and giving a multivitamin twice daily. Monitoring/Evaluation: Nutrition parameter to monitor: Meals/Supplement Intake, Enteral, Pertinent Labs, Weight Status, Nausea/Vomiting/Diarrhea Desired Outcome: Tolerate enteral nutrition at goal Patient Goal(s): Tolerate enteral nutrition at goal rate Clinical Nutrition will continue to follow. For questions about patient's nutritional care please contact pager [phone] on weekdays 07:30-16:00 or [phone] on weekends/holidays. * Reymundo Garcia M.D., M.B.A. - 09/20/2023 11:33 AM CDTAssociated Order(s): IP CONSULT TO NEPHROLOGY Supervisory Nephrology Note I saw , participating in the desai portions of her care. I independently reviewed the relevant clinical data (including the available labs/imaging) and agree with the nephrology note associated with today's encounter including the assessment and plan. We were asked by [facility] to see the patient for acute kidney injury and management of immunosuppressive therapy in the setting of kidney transplantation In summary, 68-year-old woman with history of kidney transplantation x2, last in June 2016 maintained on, MMF 500 mg b.i.d., prednisone 5 mg daily and tacrolimus 1 mg b.i.d. (trough goal since August 2023, 4-6 ng/mL) with baseline creatinine of 1.3 mg/dL. She was recently hospitalized between 08/19 and 08/29 for acute cholecystitis but because she was a poor surgical candidate she underwent a percutaneous cholecystotomy tube placement. She also has history of chronic malnutrition with PEG tubein place. In the last few days she has been consistently complaining of abdominal pain and nausea and presented to the emergency department where she was hospitalized. Creatinine was 1.9 mg/dL and increased to 2.3 mg/dL yesterday. She was given IV fluid yesterday and her home dose of Bumex was held. Urinalysis is bland. CRP elevated. White blood count 13.1. When I saw her this morning, she was reasonably doing well and not in distress. She has no peripheral edema. She is very cachectic. White blood count today down to 10.2. Hemoglobin 7.4. Creatinine up to 2.76 mg/dL. TTE shows small circumferential pericardial effusion and mild to moderate tricuspid regurgitation. Otherwise normal left and right ventricular function. ASSESSMENT / PLAN #1 Acute kidney injury stage I in a kidney allograft (baseline creatinine 1.3 mg/dL) #2 History of kidney transplantation x2, last in June 2016 with baseline creatinine of 1.3 mg/dL, maintained on prednisone, MMF and tacrolimus (trough goal of 4 to 6 ng/mL) #3 Current admission for abdominal pain #4 Recent acute cholecystitis status post percutaneous cholecystotomy tube placement on 08/20 during prior hospitalization #5 Chronic hypoxia and malnutrition with PEG tube in place since 2022 Recommendations: 1. Agree with holding the diuretic and amlodipine until evidence of hemodynamic recovery 2. Closely monitoring urine output, ins and out 3. Await trough tacrolimus level to ensure it is not supratherapeutic 4. Optimize hemodynamics and may need more fluid depending on intake 5. Continue home dose immunosuppression with tacrolimus 1 mg twice daily, MMF 500 mg twice daily and prednisone 5 mg daily 6. Avoid IV contrast and other nephrotoxins 7. All medication to be adjusted to her level of kidney function We will reassess her daily. * Kiley Osuna - 09/20/2023 11:32 AM CDT CARDIOLOGY CONSULTATION NOTE CHIEF COMPLAINT/REASON FOR CONSULTATION Consult for possible acute pericarditis and worsened sinus bradycardia HISTORY OF PRESENT ILLNESS Ms. Galvan is a 68 y/o female for whom we were consulted concerning possible acute pericarditis and worsened sinus bradycardia requesting recommendations on amiodarone dose adjustment. She has a past medical history notable for ESRD s/p two left renal transplant (2006, 2016), CAD s/p PCI (2005, unknown coronary artery), AAA, osteoporosis, malnutrition, chronic mesenteric ischemia, hypertension,hyperlipidemia. Ms. Galvan was previously admitted from 08/19-08/29 for acute cholecystitis s/p percutaneous cholecystostomy and her hospital course was complicated by acute hypoxic respiratory failure requiring ICUadmission and high flow oxygen, left pleural effusion and pericardial effusions. She also had episodes of atrial fibrillation with RVR and was started on amiodarone per HRS recommendation. She presented to the emergency department on 09/18/2023 and work-up included ECG which showed Sinus bradycardia and T wave abnormality, Prolonged QT, CBC with hemoglobin 8.4 and leukocytes 11.3, BMP with creatinine at 1.94, elevated BUN at 51, Troponins showed baseline of 82, 2 hr of 80, and [address] abdomen and pelvis at that time showed the subhepatic cholecystostomy tube in expected position and thickened and slightly hyperdense pericardium with diminished pericardial fluid since 08/19/2023. CXR showed trace left and right pleural effusion. She declined hospital admission at that time. She presented to the emergency department on 09/19/2023 with abdominal pain and was admitted for progression of PEDRITO. Ms. Galvan reports that the abdominal pain started 2-3 days ago with no notable inciting incident. She describes the pain as something punching its way out and localizes it to theright epigastric, lower thoracic region, and radiating upwards during episodes of increased pain. The pain at worst is a 10/10 and when lying in most comfortable position on her right side the pain is 1/10. The pain worsens when changing position such as turning over in bed, sitting up, or standingup. The pain worsens when deep inspiration and when lying on her back at which point she becomes nauseous. She denies any associated shortness of breath or palpitations. She denies any dizziness, lightheadedness, or syncopal episodes. CURRENT MEDICATIONS Medications Scheduled Medication Ordered Dose/Rate, Route, Frequency Last Action amiodarone tablet 200 mg (PACERONE) 200 mg, oral, Daily Ordered atorvastatin tablet 80 mg (LIPITOR) 80 mg, oral, Daily at bedtime Given, 80 mg at 09/18 2058 heparin (porcine) injection 5,000 Units 5,000 Units, SC, Q12H [facility] Given, 5,000 Units at 09/19 822 idbynr-njchnzuh-[id number] 36,000-114,000-180,[address] capsule 36,000 Units of lipase (CREON) 36,000 Units of lipase, oral, 4x Daily Given, 36,000 Units of lipase at 09/[address] tablet 40 mg (PROTONIX) 40 mg, oral, Daily before breakfast Given, 40 mg at 09/19 550 predniSONE tablet 5 mg (DELTASONE) 5 mg, oral, Daily Given, 5 mg at 09/20 823 selenium tablet 150 mcg 150 mcg, oral, Daily Given, 150 mcg at 09/20 823 sennosides-docusate sodium 8.6-50 mg per tablet 1 tablet (SENOKOT-S) 1 tablet, oral, BID Ordered tacrolimus capsule 1 mg (PROGRAF) 1 mg, oral, BID Given, 1 mg at 09/20 823 zinc sulfate capsule 220 mg (ZINCATE) 220 mg, oral, BID with meals Ordered PRN Medication Ordered Dose/Rate, Route, Frequency Last Action bisacodyL suppository 10 mg (DULCOLAX) 10 mg, rectal, Daily PRN Ordered HYDROmorphone (PF) injection 0.4 mg (DILAUDID) 0.4 mg, IV, Q2H PRN Ordered HYDROmorphone liquid 1 mg (Dilaudid) 1 mg, oral, Q4H PRN Given, 1 mg at 09/19 2135 ondansetron ODT disintegrating tablet 4 mg (ZOFRAN-ODT) 4 mg, oral, Q8H PRN Ordered polyethylene glycol powder packet 17 g (MIRALAX) 17 g, oral, Daily PRN Ordered prochlorperazine injection 5 mg (COMPAZINE) 5 mg, IV, Q6H PRN Given, 5 mg at 09/19 820 PAST MEDICAL HISTORY Past Medical History: Diagnosis Date Chronic Kidney Disease NOS Coronary Artery Disease (Unspecified) stent placement Heart Failure NOS Hyperlipidemia Pain Abdominal NOS Shortness Of Breath PAST SURGICAL HISTORY Past Surgical History: Procedure Laterality Date APPLICATION WOUND VAC ABDOMEN N/A 05/19/2023 Procedure: APPLICATION WOUND VACUUM ABDOMEN; Surgeon: Jt Hoang M.D.; Location: [facility] OR DEBRIDEMENT AND IRRIGATION - ABDOMINAL WOUND N/A 05/29/2023 Procedure: SHARP EXCISION OF SKIN AND SUBCUTANEOUS TISSUE MEASURING 2 cm x15 cm FOR TOTAL AREA OF 30 cm squared, IRRIGATION ABDOMINAL WOUND, CLOSURE OVER 19 LITHUANIAN ROUND ALEKSANDRA DRAIN, SECONDARY SKIN CLOSURE WITH SUTURES 25 cm, PLACEMENT OF INCISIONAL WOUND VAC; Surgeon: Omar Salazar M.D.; Location: [facility] EXPLORATION ABDOMINAL N/A 05/19/2023 Procedure: Exploratory laparotomy with leaking g-tube site repair; Surgeon: Jt Hoang M.D.; Location: [facility] OR GASTROSTOMY N/A 05/19/2023 Procedure: GASTROSTOMY TUBE PEXY; Surgeon: Jt Hoang M.D.; Location: [facility] INJECTION RESTYLANE Right 06/18/2023 Procedure: INJECTION RESTYLANE, RIGHT VOCAL CORD.; Surgeon: Abraham Shelton M.D.; Location: [facility] INSERTION CENTRAL VENOUS LINE Right 05/19/2023 Procedure: INSERTION CENTRAL VENOUS LINE RIGHT FEMORAL VEIN; Surgeon: Jt Hoang M.D.; Location:[facility] OR KIDNEY TRANSPLANT - RECIPIENT OF LIVING DONOR WITH BACK TABLE PREP OF KIDNEY ALLOGRAFT N/A 06/21/2016 Kidney Transplant - Recipient of Living Donor with Back Table Prep of Kidney Allograft MICROLARYNGOSCOPY N/A 06/18/2023 Procedure: MICROLARYNGOSCOPY.; Surgeon: Abraham Shelton M.D.; Location: [facility] PARATHYROIDECTOMY - SUBTOTAL N/A 07/30/2007 >1. Standard cervical exploration. 2. Subtotal parathyroidectomy (excision right superior, TRANSPLANT KIDNEY - RECIPIENT OF LIVING DONOR WITH BACK TABLE PREP KIDNEY ALLOGRAFT N/A 01/31/2007 >Living donor kidney transplant. Back table preparation of renal allograft with one SOCIAL HISTORY reports that she has quit smoking. Her smoking use included cigarettes. She has never used smokeless tobacco. She reports that she does not currently use alcohol. She reports that she does not use drugs. FAMILY HISTORY No family history on file. REVIEW OF SYSTEMS A 10 point review of systems was completed and pertinent positives and negatives are discussed in the HPI. OBJECTIVE VITAL SIGNS: Temperature: [36.6 ??C-37 ??C] 36.7 ??C Heart Rate: [43-49] 45 Resp Rate: [16-21] 20 Blood Pressure: (101-122)/(41-59) 112/59 SpO2: [90 %-99 %] 90 % Flow Rate (L/min): [2 L/min-3 L/min] 3 L/min Height: [165.1 cm] 165.1 cm Weight: [36.9 kg] 36.9 kg BSA (Calculated - sq m): [1.3 sq meters] 1.3 sq meters BMI (Calculated): [13.5 kg/m??] 13.5 kg/m?? Pulse Rate: [43-54] 44 Body mass index is 13.54 kg/m??. PHYSICAL EXAMINATION General: Reclined in bed, no acute distress Cardiovascular: Bradycardia, regular rhythm. Audible S1 and S2. Systolic crescendo-decrescendo murmur heard loudest at right upper sternal border Lungs: Quiet but clear and equal breath sounds bilaterally Abdomen: Pain on palpation of bilateral upper abdominal quadrants Extremities: No lower extremity edema DIAGNOSTICS ECG 12 Lead Result Date: 09/19/2023 Sinus bradycardia Low anterior forces Moderate voltage criteria for LVH, may be normal variant ST and T wave abnormality, consider anterolateral ischemia T wave abnormality, consider inferior ischemia When compared with ECG of 18-Sep-2023 11:39, T wave inversion more evident in Inferior leads Anterior infarct have decreased Reviewed by ANA Velazquez ECG 12 Lead Result Date: 09/18/2023 Sinus bradycardia Moderate voltage criteria for LVH, may be normal variant T wave abnormality, consider anterolateral ischemia Prolonged QT When compared with ECG of 26-Aug-2023 07:18, QT has lengthened Reviewed by ANA Barboza Transthoracic echocardiogram: 09/20/2023 Final Impressions 1. No evidence of constrictive pericarditis. 2. Mildly enlarged left ventricular chamber size, no regional wall motion abnormalities, calculated2-D linear ejection fraction 65%. 3. Normal right [...] present, and left-sided pleural effusion is resolved. Side by side comparison of images performed. Findings Echo performed at the patient's bedside. The scope of this echocardiogram was limited to assessmentof constrictive pericarditis. Recommend a future complete echocardiogram [...] in this location. Small circumferential pericardial effusion. Laboratories Recent Results (from the past 24 hour(s)) Troponin T, Baseline, 5th gen Collection Time: 09/19/23 3:59 PM Result Value Troponin T, Baseline, 5th gen 106 (H) Prothrombin Time (PT) Collection Time: 09/19/23 3:59 PM Result Value Prothrombin Time, P 14.5 (H) INR 1.3 CBC with Differential, Blood Collection Time: 09/19/23 3:59 PM Result Value Hemoglobin 8.0 (L) Hematocrit 25.2 (L) Erythrocytes 2.81 (L) MCV 89.7 RBC Distrib Width 16.8 (H) Platelet Count 323 Leukocytes 13.1 (H) Neutrophils 11.28 (H) Lymphocytes 0.67 (L) Monocytes 0.91 (H) Eosinophils 0.18 Basophils 0.03 Basic Metabolic Panel Collection Time: 09/19/23 3:59 PM Result Value Potassium, P 4.0 Sodium, P 130 (L) Chloride, P 93 (L) Bicarbonate, P 22 Anion Gap, P 15 BUN (Blood Urea Nitrogen), P 52 (H) Creatinine 2.29 (H) Estimated GFR (eGFR) 23 (L) Calcium, Total, P 8.8 Glucose, P 109 Lactate, B Collection Time: 09/19/23 3:59 PM Result Value Lactate, B 0.6 CRP (C-Reactive Protein) Collection Time: 09/19/23 3:59 PM Result Value C-Reactive Protein (CRP), S 141.2 (H) Hepatic Function Panel Collection Time: 09/19/23 3:59 PM Result Value Bilirubin, Total, S 0.6 Bilirubin, Direct, S 0.3 Aspartate Aminotransferase (AST), S 16 Alanine Aminotransferase (ALT), S 16 Alkaline Phosphatase, S 115 (H) Albumin, S 3.1 (L) Protein, Total, S 6.6 Lipase Collection Time: 09/19/23 3:59 PM Result Value Lipase, S 29 Troponin T, 2h/6h, 5th Gen Collection Time: 09/19/23 6:09 PM Result Value Troponin T, 2 hr, 5th gen 92 (H) 2H Delta % -13 2H Delta Interp Not Changing Troponin T, 6 hr, 5th gen 82 (H) 6H Delta % -23 (A) 6H Delta Interp Changing (A) Basic Metabolic Panel Collection Time: 09/20/23 9:28 AM Result Value Potassium, S 4.4 Sodium, S 129 (L) Chloride, S 93 (L) Bicarbonate, S 22 Anion Gap 14 BUN (Blood Urea Nitrogen), S 54 (H) Creatinine 2.76 (H) Estimated GFR (eGFR) 18 (L) Calcium, Total, S 8.7 (L) Glucose, S 86 CBC with Differential, Blood Collection Time: 09/20/23 9:28 AM Result Value Hemoglobin 7.4 (L) Hematocrit 23.5 (L) Erythrocytes 2.56 (L) MCV 91.8 RBC Distrib Width 17.0 (H) Platelet Count 262 Leukocytes 10.2 (H) Neutrophils 7.75 (H) Lymphocytes 1.27 Monocytes 0.94 (H) Eosinophils 0.17 Basophils 0.04 Hepatic Function Panel Collection Time: 09/20/23 9:28 AM Result Value Bilirubin, Total, S 0.5 Bilirubin, Direct, S 0.2 Aspartate Aminotransferase (AST), S 22 Alanine Aminotransferase (ALT), S 19 Alkaline Phosphatase, S 121 (H) Albumin, S 2.9 (L) Protein, Total, S 6.4 ASSESSMENT / PLAN Ms. Galvan is a 68 y/o female for whom we were consulted concerning possible acute pericarditis and worsened sinus bradycardia requesting recommendations on amiodarone dose adjustment. She has a past medical history notable for ESRD s/p two left renal transplant (2006, 2016), CAD s/p PCI (2005, unknown coronary artery), AAA, osteoporosis, malnutrition, chronic mesenteric ischemia, hypertension,hyperlipidemia. At this time the source of this upper epigastric pain has not been identified but aprioritized differential includes pericarditis, pleuritis, and spontaneous bacterial peritonitis. The CT abdomen and pelvis obtained on 09/18/2023 demonstrated pericardial thickening and some hyperdensity. However, it is not sufficient evidence of pericarditis in the setting of an ECG with no evidence of diffuse, concave, upsloping ST-segment elevations or AL depression. She does endorse pleuriticchest pain and inflammatory markers are elevated with CRP today being 141.2 on 09/18 and 127 on 09/17. However, she does not meet diagnostic criteria for pericarditis at this time. With continuation orprogression of her pleuritic chest pain symptoms and elevated inflammatory markers and certainly with the development of new ECG changes consistent with pericarditis, proceeding with an MRI on Saturdaywould be reasonable to investigate the etiology of this epigastric pain and to specifically assess for pericarditis. However, we recommend first optimizing kidney function and addressing PEDRITO prior tothat. Given her decreased kidney function, treatment of a potential pericarditis would likely involve increasing her current dose of prednisone. In regards to her sinus bradycardia, Ms. Galvan notes no symptoms including no dizziness, lightheadedness or syncope. She had normal findings on ECG Ambulatory Real Time Cardiac Monitoring from 08/30/2023-09/09/2023. We recommend maintaining the current dose of amiodarone to prevent atrial fibrillation with RVR particularly in the setting of this current illness. RECOMMENDATIONS: -Manage pain symptoms and trend CRP levels over the weekend -May consider cardiac MRI on Saturday if continued symptoms and elevated inflammatory markers with improved kidney function -Maintain current amiodarone dose for atrial fibrillation Kiley Osuna Medical Student 09/20/23 * Harley Villalobos M.B., B.Ch., B.A.O. - 09/20/2023 9:00 AM CDT NEPHROLOGY CONSULT SERVICE - CONSULT NOTE Hospital Day 1 SUBJECTIVE Consults CHIEF COMPLAINT / REASON FOR CONSULT Acute kidney injury in setting of nausea, decreased oral intake HISTORY OF PRESENT ILLNESS Ms. Galvan is a 68 y.o. female presenting with a 3-4 day history of persistent abdominal pain andnausea on a background of recent admission from 08/19 2 08/29 for acute cholecystitis requiring percutaneous cholecystostomy tube due to poor surgical candidacy. This admission was complicated by postoperative ATN, acute hypoxic respiratory failure in the setting of pleural effusion requiring home ox ygen (1L). PMH includes ESRD s/p renal transplant x2 (, , on [place], CellCept, Pred), CAD s/p PCI ('06), Afib (not on AC), AAA, HTN, chronic hyponatremia, osteoporosis. Patient also suffers from longstanding history of increased nausea with decreased oral intake which began in December of 2022 eventually leading to a PICC placement with twice daily feeds. Patient presenting with 3-4 day history of abdominal pain mostly in the right upper quadrant. Associated with significant nausea and decreased oral intake. At present, abdominal pain much improved and almost resolved. However patient continues to have nausea and decreased oral intake secondary to this. Ms. Galvan endorses feeling thirsty at present. She denies having any fevers prior to presentation. Occasional diarrhea in setting of PEG feeds but does not endorse any diarrhea prior to presentation. No hematuria. No recent dysuria. In ED, creatinine noted to be elevated to 2.29 increased from baseline of 1.3, sodium 130, white cell count of 13, CRP 141, ALP 115 and lactate 0.6. Urinalysis was normal. Chest x-ray on 09/17 showedimproving left pleural effusion with left basilar atelectasis and resolution of right apical pneumothorax. Small pericardial effusion noted on TTE. CT abdomen and pelvis from 09/17 showed small amount of free pelvic fluid, thickened and slightly hyperdense pericardium with diminished pericardial fluid. Patient takes tacrolimus 1 mg twice daily at home aiming for tacrolimus trough of 4-6, mycophenolate mofetil 500 mg twice daily, prednisolone 5 mg once daily. Mycophenolate mofetil had initially beenheld following admission with acute cholecystitis however this was restarted by the renal transplant team in the outpatient setting on 09/05. The following portions of the patient's history were reviewed and updated as appropriate: allergies, current medications, family history, medical history, social history, surgical history and problemlist. OBJECTIVE VITAL SIGNS Admission weight: 36.9 kg Weights for the past 120 hrs (Last 3 readings): Weight 09/19/231944 36.9 kg I/O last 3 completed shifts: In: - Out: 250 [Urine:250] Temperature: [36.6 ??C-37 ??C] 36.7 ??C Heart Rate: [43-49] 45 Resp Rate: [16-21] 20 Blood Pressure: (101-122)/(41-59) 112/59 SpO2: [90 %-99 %] 90 % Flow Rate (L/min): [2 L/min-3 L/min] 3 L/min Pulse Rate: [43-54] 44 PHYSICAL EXAMINATION Physical Exam General: Patient alert and comfortable, patient appears cachectic Lungs: Clear bilaterally no wheeze or crepitations Abdomen: Soft with right upper quadrant moderate tenderness Lower limbs: No peripheral edema No current facility-administered medications on file prior to encounter. Current Outpatient Medications on File Prior to Encounter Medication Sig Dispense Refill mycophenolate (CELLCEPT) 250 mg capsule Take 2 capsules (500 mg total) by mouth 2 (two) times a day. Do not break, cut, or open capsules. 360 capsule 3 predniSONE (DELTASONE) 5 mg tablet TAKE 1 TABLET(5 MG) BY MOUTH DAILY 90 tablet 3 tacrolimus (PROGRAF) 1 mg capsule Take 1 capsule (1 mg total) by mouth 2 (two) times a day. 180 capsule 3 acetaminophen (TYLENOL) 500 mg tablet Take 2 tablets (1,000 mg total) by mouth 2 (two) times a day. amiodarone (PACERONE) 200 mg tablet Take 1 tablet (200 mg total) by mouth daily. 90 tablet 0 amLODIPine (NORVASC) 10 mg tablet Take 1 tablet (10 mg total) by mouth daily. 90 tablet 3 atorvastatin (LIPITOR) 80 mg tablet Take 1 tablet (80 mg total) by mouth at bedtime. 90 tablet 3 bumetanide (BUMEX) 2 mg tablet Take 2 tablets (4 mg total) by mouth 2 (two) times a day. 120 tablet0 cholecalciferol, vitamin D3, 25 mcg (1,000 Unit) tablet Take 1 tablet (25 mcg total) by mouth daily. collagenase (SANTYL) 250 unit/gram ointment Apply 1 Application topically daily. Apply to coccyx. 30 g 2 diphenoxylate-atropine (LOMOTIL) 2.5-0.025 mg/5 mL liquid Take 10 mL by mouth 4 (four) times a day as needed for diarrhea. DME Oxygen DME Order - for details see Order Report 1 each 0 mwiizk-efagwlqz-amwjagj (CREON) 36,000-114,000-180,[address] capsule Take 36,000 Units of lipase by mouth 4 (four) times a day. fmuivqwlrtdc-knmz-LS-Ca-minerals (THERAPEUTIC-M) 400 mcg (folic acid) per tablet Take 1 tablet by mouth daily. ondansetron ODT (ZOFRAN-ODT) 4 mg disintegrating tablet Dissolve 1 tablet (4 mg total) in the mouthevery 6 (six) hours as needed for nausea or vomiting. 20 tablet 0 pantoprazole (PROTONIX) 40 mg EC tablet Take 1 tablet (40 mg total) by mouth 2 (two) times a day before breakfast and dinner. (Patient taking differently: Take 40 mg by mouth every morning before breakfast.) 60 tablet 2 selenium 50 mcg tablet Take 3 tablets (150 mcg total) by mouth daily. 270 tablet 0 sodium chloride 0.9 % injection 5 mL 2 (two) times a day. 900 mL 3 zinc sulfate (ZINCATE) 220 (50 mg zinc) capsule Take 1 capsule (220 mg total) by mouth 2 (two) times a day with meals. 60 capsule 0 DIAGNOSTICS Labs: Recent Labs 09/19/23 1559 09/18/23 1156 09/06/23 1144 HGB 8.0 L 8.4 L 7.8 L WBC 13.1 H 11.3 H 12.0 H PLT 323 319 364 Recent Labs 09/19/23 1559 09/18/23 1156 09/06/23 0834 08/30/23 0742 08/29/23 0758 08/22/23 1258 08/22/23 0949 NA 130 L 131 L 136 134 L 135 < > 137 KSERUM -- -- 4.5 4.5 4.5 < > -- KPLASMA 4.0 3.6 -- -- -- -- 3.9 BICARB 22 25 27 31 H 30 H < > 18 L BUN 52 H 51 H 37 H 36 H 34 H < > 46 H CREATININE 2.29 H 1.94 H 1.74 H 1.58 H 1.35 H < > 2.05 H < > = values in this interval not displayed. Results from last 7 days Lab Units 09/19/23 1559 09/18/23 1156 CALCIUM P mg/dL 8.8 8.9 ALBUMIN g/dL 3.1* 3.2* Recent Labs 09/18/23 1142 08/30/23 0742 08/29/23 0758 EGFRCYSTATNC 14 L 22 L 24 L Results from last 7 days Lab Units 09/18/23 1559 UADM SOURCE Urine, Urine, Catheter CLARITY U Clear COLOR U Yellow OSMOLALITY UR 3 mOsm/kg 308 GÉNESIS PH URINE 5.2 GLUCOSE UR mg/dL Negative BLOOD UA1 Negative BETSY MICROSCOPIC EXAMINATION Normal RBC UA BETSY /hpf None Seen WBC UR HPF /hpf None Seen NITRITE U Negative LEUKOCYTES U3 Negative CT Abdomen Pelvis with IV Contrast (09/18/23) IMPRESSION: 1. Subhepatic cholecystostomy tube in expected position. 2. No definite acute intra-abdominal or intrapelvic process. 3. Small free pelvic fluid. This is nonspecific but may be secondary to underlying renal failure. 4. Thickened and slightly hyperdense pericardium with diminished pericardial fluid since 08/19/2023.Consider underlying pericarditis. 5. Apparent filling defect left external iliac and left femoral veins is almost certainly artifactual, though US Dopplers are recommended to exclude the possibility of deep vein thrombosis. ASSESSMENT / PLAN Acute kidney injury likely secondary to hypovolemia Status post renal transplant X 2 performed in 2006 in 2016 Immunosuppressed on tacrolimus, mycophenolate mofetil, prednisolone History of glomerular nephritis of unknown etiology Chronic hyponatremia Recent cholecystitis with percutaneous cholecystostomy tube and bile duct stent Severe malnutrition s/p PEG placement A small pericardial effusion Hypertension Sinus bradycardia Atrial fibrillation Ischemic heart disease In summary, Ms. Galvan is a 68 y.o. female presenting with acute kidney injury likely in the setting of hypovolemia secondary to abdominal pain, nausea and decreased oral intake on a background of recent admission from 08/19 2 08/29 for acute cholecystitis requiring percutaneous cholecystostomy tube due to poor surgical candidacy. This admission was complicated by postoperative ATN, acute hypoxic respiratory failure in the setting of pleural effusion requiring home oxygen (1L). Patient has a past medical history significant for renal transplant x2 in 2006 in 2016 and remains on tacrolimus, MMF, prednisolone. Ms. Galvan presented to ED with a 3-4 day history of abdominal pain, nausea and decreased oral intake. Investigations on admission notable for elevated creatinine at 2.29 (baseline 1.3) sodium 130,white cell count elevated to 13, CRP 141, ALP 115. Urinalysis was normal. CT AP showing small amount of free pelvic fluid as well as a thickened and slightly hyperdense pericardium suspicious for pericarditis. She received 1.5 L of IV fluid resuscitation in ED. It appears that Ms. Galvan's PEDRITO is likely in the setting of hypovolemia secondary to decreased oral intake. She appears to continued to be mildly hypovolemic at present. We would recommend commencing slow intravenous fluids at 100 mL/hour for the next 10 hours and continuing to hold her home bumetanide. For now we would recommend continuing tacrolimus, mycophenolate mofetil and prednisone at home doses. Plan Repeat tacrolimus trough prior to AM dose Continue to hold amlodipine given hypotension Hold bumetanide Monitor intake/output Daily creatinine and electrolytes Continue immunosuppression at home doses Tacrolimus 1 mg twice daily Mycophenolate mofetil 500 mg twice daily Prednisolone 5 mg once a day Optimize hemodynamic state and avoid fluid overload Avoid all nephrotoxins, if possible (contrast dye, unnecessary antibiotics, NSAIDs) Renally dose-adjust all medications for GFR Patient was discussed with Dr. Gareth Villalobos, Nephrology Resident, Pager #[phone] * David Joy M.D. - 09/20/2023 7:51 AM CDTAssociated Order(s): IP CONSULT TO CARDIOLOGY Cardiology Consulting Service Note SUBJECTIVE REFERRING SERVICE [place] [id number] ([facility]) REASON FOR CONSULT 1) Query acute pericarditis (Positional chest/abdominal pain, small pericardial effusion, elevatedinfalmmatory markers) 2) worsened sinus bradycardia, Q amio dose adjustment? HISTORY OF PRESENT ILLNESS Ms. Galvan is a 68-year-old female with comorbidities including paroxysmal AFib, CAD s/p PCI (2005), mesenteric artery disease, abdominal aortic aneurysm, history of kidney transplant x2 (2006, 2016), osteoporosis and chronic malnutrition who presented on 09/19/2023 for evaluation and management of Failure Renal Acute (Acute Kidney Injury) (HCC) and is currently admitted on [place] [id number] ([facility]). Cardiology Consult service was consulted on 09/20/2023 for evaluation/recommendations of concern for acute pericarditis. The patient was recently hospitalized at [facility] from 08/19-08/29 with a acute cholecystitis with plan for percutaneous drain placement due to being a poor surgical candidate. While hospitalized, her course was complicated acute hypoxic respiratory failure requiring high-flow oxygen and was found on imaging to have left-sided pleural effusion as well as pericardial effusions. The patient underwent several thoracentesis along with continued diuresis with improvement in both her pleural effusions and her pericardial effusion. She also had episodes of AFib with RVR for which amiodarone was started. The patient did achieve sinus rhythm but was noted to be bradycardic to the 40s which was larg rashaun asymptomatic. She was subsequently discharged with a 2 week ambulatory cardiac and follow up with Cardiology. Prior to discharge, the patient was started on Eliquis with some concern for bleedingfrom her cholecystostomy tube however, this stabilized and with shared decision-making the patient decided to discharge home with close follow up in the outpatient setting. The patient continued to do well in the outpatient setting with some improvement in her diet as well as her mobility however she presented on 09/17 with concerns for abdominal pain. She was noted to have elevation in her creatinine with CT scan showed normal positioning of the cholecystostomy tube and no other acute abdominal pathology but did mention slightly thickened pericardium consideration for underlying pericarditis. EKG showed sinus bradycardia with some T-wave abnormality unchanged from the previous EKG. Hemoglobin was 8.4 with a leukocytosis of 11.3 and creatinine of 1.94. Patient had baseline troponin of 92 which then went to 80 at the 2 hour sera and then to 93 at 6 hour sera. ACRP was obtained which was elevated to 127 and bedside ultrasound did not reveal any pericardial effusion. Before being admitted the patient left AMA due to her being improved. Unfortunately, the patient then re-presented on 09/18 with reported worsening of her abdominal pain. She additionally reports experiencing some shortness of breath that has been present for several days worsens with deep inhalation but not with activity. Repeat blood work demonstrated hemoglobin 8,WBC 13.1, creatinine 2.29 and CRP 141.2. Repeat troponins was 106 at baseline to 92 at the 2 hour sera and then 82 at the 6 hour sera. EKG revealed sinus bradycardia with more evident T-wave inversions in the inferior lead. Given these concerns the patient was admitted for evaluation and managementby the medicine service. Cardiology was subsequently consulted for evaluation of possible acute ebony carditis, worsened sinus bradycardia and recommendations for adjustment of amiodarone. A TTE was done that demonstrated a small circumferential pericardial with no evidence of constrictive pericarditis. Otherwise unremarkable echo. On evaluation today patient reports feeling no pain currently lying on her right side. She reports that the pain is worse when she stands up or leans forward. The patient reports previously being on full dose of aspirin but that during her last hospitalization this was discontinued. She has only been taking occasional baby aspirin and has not noticed any improvement in her pain. Patient has no cur rent concerns. Current Outpatient Medications on File Prior to Encounter: mycophenolate (CELLCEPT) 250 mg capsule, Take 2 capsules (500 mg total) by mouth 2 (two) times a day. Do not break, cut, or open capsules., 09/19/2023 at AM predniSONE (DELTASONE) 5 mg tablet, TAKE 1 TABLET(5 MG) BY MOUTH DAILY, 09/19/2023 at AM tacrolimus (PROGRAF) 1 mg capsule, Take 1 capsule (1 mg total) by mouth 2 (two) times a day., 09/19/2023 at AM acetaminophen (TYLENOL) 500 mg tablet, Take 2 tablets (1,000 mg total) by mouth 2 (two) times a day. amiodarone (PACERONE) 200 mg tablet, Take 1 tablet (200 mg total) by mouth daily. amLODIPine (NORVASC) 10 mg tablet, Take 1 tablet (10 mg total) by mouth daily. atorvastatin (LIPITOR) 80 mg tablet, Take 1 tablet (80 mg total) by mouth at bedtime. bumetanide (BUMEX) 2 mg tablet, Take 2 tablets (4 mg total) by mouth 2 (two) times a day. cholecalciferol, vitamin D3, 25 mcg (1,000 Unit) tablet, Take 1 tablet (25 mcg total) by mouth daily. collagenase (SANTYL) 250 unit/gram ointment, Apply 1 Application topically daily. Apply to coccyx. diphenoxylate-atropine (LOMOTIL) 2.5-0.025 mg/5 mL liquid, Take 10 mL by mouth 4 (four) times a dayas needed for diarrhea. DME Oxygen, DME Order - for details see Order Report dnfrfj-xjnydbny-viugujs (CREON) 36,000-114,000-180,[address] capsule, Take 36,000 Units of lipase by mouth 4 (four) times a day. xculqphhydzw-qbmg-JY-Ca-minerals (THERAPEUTIC-M) 400 mcg (folic acid) per tablet, Take 1 tablet by mouth daily. ondansetron ODT (ZOFRAN-ODT) 4 mg disintegrating tablet, Dissolve 1 tablet (4 mg total) in the mouth every 6 (six) hours as needed for nausea or vomiting. pantoprazole (PROTONIX) 40 mg EC tablet, Take 1 tablet (40 mg total) by mouth 2 (two) times a day before breakfast and dinner. (Patient taking differently: Take 40 mg by mouth every morning before breakfast.) selenium 50 mcg tablet, Take 3 tablets (150 mcg total) by mouth daily. sodium chloride 0.9 % injection, 5 mL 2 (two) times a day. zinc sulfate (ZINCATE) 220 (50 mg zinc) capsule, Take 1 capsule (220 mg total) by mouth 2 (two) times a day with meals. OBJECTIVE VITAL SIGNS Temperature: [36.6 ??C-37 ??C] 36.7 ??C Heart Rate: [43-49] 45 Resp Rate: [16-21] 20 Blood Pressure: (101-122)/(41-59) 113/42 SpO2: [90 %-99 %] 93 % Flow Rate (L/min): [2 L/min-3 L/min] 3 L/min Pulse Rate: [40-54] 40 Admission Weight: 36.9 kg Current Weight: 36.9 kg Body mass index is 13.54 kg/m??. PHYSICAL EXAMINATION General: Elderly female lying in bed in no acute distress, alert and oriented x3, appears cachectic HEENT: Moist mucous membranes, extraocular movements intact, PERRLA Cardiovascular: Regular rate and rhythm, S1, S2 normal, 3/6 systolic murmur best heard at right upper sternal border Lungs: Bibasilar crackles present, decreased breath sounds on the left. Abdomen: Bowel sounds present, soft, tenderness in the right upper quadrant, nondistended, PEG tubein place Extremities: No lower extremity edema, sensation symmetric Neuro: Mentating well DIAGNOSTICS I have independently reviewed labs, imaging and reports. Cardiac History Most recent TTE 09/19/2023: Final Impressions 1. No evidence of constrictive pericarditis. 2. Mildly enlarged left ventricular chamber size, no regional wall motion abnormalities, calculated2-D linear ejection fraction 65%. 3. Normal right [...] present, and left-sided pleural effusion is resolved. Side by side comparison of images performed. Other relevant cardiac studies: Ambulatory cardiac monitoring 09/12/2023 Interpretation Summary 1. The patient was monitored from 08/30/2023 [...] patient did not record any symptomatic events. EKG 09/19/2023 MPRESSION: Sinus bradycardia Low anterior forces Moderate voltage criteria for LVH, may be normal variant ST and T wave abnormality, consider anterolateral ischemia T wave abnormality, consider inferior ischemia When compared with ECG of 18-Sep-2023 11:39, T wave inversion more evident in Inferior leads Anterior infarct have decreased ASSESSMENT / PLAN Ms. Galvan is a 68-year-old female with comorbidities including paroxysmal AFib, CAD s/p PCI (2005), mesenteric artery disease, abdominal aortic aneurysm, history of kidney transplant x2 (2006, 2016), osteoporosis and chronic malnutrition who presented on 09/19/2023 for evaluation and management of Failure Renal Acute (Acute Kidney Injury) (HCC) and is currently admitted on [facility] ([facility]). Cardiology Consult service was consulted on 09/20/2023 for evaluation/recommendations of concern for acute pericarditis. 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 The patient did have a pericardial effusion during this time which subsequently improved however on the most recent echo this seems to have reaccumulated. It is difficult to determine what the etiology of her epigastric pain is but differential does include acute pericarditis but given her symptoms it was difficult to tease out if this is present or not. On CT imaging there is some enhancement of the pericardium but with no EKG changes and features that do not seem typical it is hard to decide if this is present but difficult to rule out. To diagnose pericarditis you would require 2/4 (t ypical pleuritic chest, pericardial friction rub, EKG changes including widespread ST segment elevation or AL depressions and new or worsening pericardial effusion) and is possible the patient meets 2 of these criteria. Additionally, the patient has markers of inflammation including elevated CRP. Yue bergman does have elevated cardiac biomarkers but these appear to comparable to her previous numbers and so it is difficult to decide if there is also component of myocarditis but less likely at this point. The best course will likely be to continue observing the patient to see which direction her pain aswell as EKG and inflammatory markers go. She may require a cardiac MRI to look for evidence of delayed enhancement in order to be able to rule in or rule out acute pericarditis. Complicating her picture is her acute kidney injury which may limit the testing and effective treatment options that we have. Given that the patient is on prednisone for her renal transplant, a possible option may be to increase her steroid dose in order to treat any possible pericarditis. Regarding her bradycardia, the patient was noted to be bradycardic during her previous admission and during that time was noted to be asymptomatic. Her cardiac ambulatory monitoring did not reveal any symptomatic episodes of bradycardia and so would monitor for now. Regarding her amiodarone dose, the patient has maintained sinus rhythm since discharge and so should continue on amiodarone. RECOMMENDATIONS: Recommend monitoring CRP and medically optimizing over the weekend Agree with Nephrology consult for PEDRITO and history of kidney transplant Can discuss with Nephrology the role of increasing prednisone for possible pericarditis. Can consider cardiac MRI on 09/22 if patient continued to have epigastric pain and if kidney function is improved No empiric treatment for pericarditis at this time Recommend continuing amiodarone. Can re-evaluate if the patient does become symptomatic or developsconcerns for liver injury or other amiodarone toxicity Thank you for the opportunity to care for this patient. Cardiology Consults will continue to follow.. Please contact the Cardiology consult Service pager at [phone] for any questions or concerns The above patient was discussed with Dr. Pang who was involved in collaborative decision making andagrees with the above recommendations/plan of care. David Joy M.D. Internal Medicine PGY-3 [id number] documented in this encounter Nursing Notes * Casie Kapoor R.N. - 09/24/2023 6:02 PM CDT Discharge Nursing Note AVS and Discharge Summary reviewed. Discharge education provided including medication instructions,follow-up plan, and when to seek emergency care. Questions answered and patient/caregiver verbalized understanding. Patient and all personal belongings were discharged to home with home health care, transport provided by family. Vital signs stable prior to discharge and IV access removed. * Ivana Reyes M.S.Israel, R.N. - 09/23/2023 5:03 AM CDT Shift Goals: Clinical Goals for the Shift: pt safety Identify possible barriers to meeting goals/advancing plan of care: None End of Shift Summary: Patient's spouse at bedside and roomed in. Patient expressed pain in RLQ of abdomen, inferior to PEG site. PO dilaudid given with relief. VSS and as expected. Patient had one incontinent, watery BM this morning. Problem: PAIN - ADULT Goal: PT VERBALIZES/DEMONSTRATES ADEQUATE COMFORT LEVEL OR BASELINE Outcome: Progressing Problem: KNOWLEDGE DEFICIT Goal: Patient/family/caregiver demonstrates understanding of disease process, treatment plan, medications, and discharge instructions Outcome: Progressing Problem: INFECTION - ADULT Goal: Absence of infection during hospitalization Outcome: Progressing Problem: SKIN/TISSUE INTEGRITY Goal: Skin/Tissue integrity maintained or improved Outcome: Progressing Problem: SAFETY ADULT Goal: Maintain a safe environment Outcome: Progressing Problem: Compromised Skin Integrity Goal: Skin/Tissue integrity maintained or improved Outcome: Progressing * Anil Atwood RMaricruz. - 09/21/2023 4:51 PM CDT Problem: PAIN - ADULT Goal: PT VERBALIZES/DEMONSTRATES ADEQUATE COMFORT LEVEL OR BASELINE Outcome: Progressing Problem: KNOWLEDGE DEFICIT Goal: Patient/family/caregiver demonstrates understanding of disease process, treatment plan, medications, and discharge instructions Outcome: Progressing Problem: INFECTION - ADULT Goal: Absence of infection during hospitalization Outcome: Progressing Problem: SKIN/TISSUE INTEGRITY Goal: Skin/Tissue integrity maintained or improved Outcome: Progressing Goal: Oral and Nasal mucous membranes remain intact Outcome: Progressing Problem: SAFETY ADULT Goal: Maintain a safe environment Outcome: Progressing Problem: DISCHARGE PLANNING Goal: Patient discharge needs identified Outcome: Progressing Problem: POTENTIAL OR ACTUAL PRESSURE INJURY-ADULT Goal: Manage sensory Perception deficits to maintain and/or improve skin integrity Outcome: Progressing Goal: Maintain optimal skin moisture to ensure or improve skin integrity Outcome: Progressing Goal: Achieve optimal activity and/or mobility to maintain or improve skin integrity Outcome: Progressing Goal: Nutrient intake appropriate for improving, restoring or maintaining skin integrity Outcome: Progressing Goal: Minimize friction and/or shear to maintain or improve skin integrity Outcome: Progressing Problem: Compromised Skin Integrity Goal: Skin/Tissue integrity maintained or improved Outcome: Progressing Goal: Oral and Nasal mucous membranes remain intact Outcome: Progressing Goal: Incisions, wounds, or drain sites healing without S/S of infection Outcome: Progressing Problem: Incontinence and/or Moisture Goal: Skin integrity is maintained or improved Outcome: Progressing Problem: SAFETY ADULT - RISK FOR FALL AND OR FALL INJURY Goal: Patient remains free from fall/fall injury Outcome: Progressing * Anil Atwood R.N. - 09/21/2023 3:13 PM CDT Patient and family member wanted to go outside and get some fresh air. Explained to them about her labs and patient will have a blood transfusion once blood is available. Family member insisted. Service made aware. Service Approved that pt can get some fresh air while waiting for the blood to come up. documented in this encounter ED Notes * Sakina Anderson APRN, C.N.P., D.N.P. - 09/19/2023 3:40 PM CDT SUBJECTIVE CHIEF COMPLAINT/REASON FOR VISIT Chest Pain HISTORY OF PRESENT ILLNESS Jacqueline Galvan is a 68-year-old female with a history coronary artery disease, mesenteric artery disease, abdominal aortic aneurysm, kidney transplant (2017), chronic malnutrition who presents to the Emergency Department for the evaluation of chest pain. Patient was noted to have a recent hospitalization for cholecystitis for which she underwent medical management due to poor surgical candidacy. Yesterday, the patient was evaluated in the Emergency Department for epigastric pain. She endorsed one episode of emesis on that day. CT scan showed normal positioning of cholecystostomy tube, no other acute abdominal pathology. Ultrasound of the lower extremities was unremarkable. The patientleft AMA. Today, the patient returns reporting worsening centralized epigastric pain. She states she felt better at the time of leaving but her pain has progressively worsened today and has had difficulty sleeping secondary to this. She also discloses that she has also been experiencing shortness of breath which worsens with deep inhalation but does not worsen with activity. She did not take any a spirin today and is not currently anticoagulated. There are no other complaints at this time. 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 Respiratory: Positive for shortness of breath. Cardiovascular: Positive for chest pain. Gastrointestinal: Positive for abdominal pain. Negative for constipation and diarrhea. OBJECTIVE Initial Vitals Temperature 09/19/23 1516 36.9 ??C Pulse Rate 09/19/23 1516 (!) 54 Heart Rate 09/19/23 1548 (!) 49 Resp Rate 09/19/23 1516 16 Blood Pressure 09/19/23 1516 (!) 103/46 SpO2 09/19/23 1516 91 % Pain Score 09/19/23 1515 2 PHYSICAL EXAMINATION Constitutional: Nursing note and vitals reviewed. Cachetic in appearance . HENT: Head: Normocephalic and atraumatic. Mouth/Throat: Mucous membranes are moist. Eyes: Conjunctivae and EOM are normal. Neck: Neck supple. Cardiovascular: Normal rate and regular rhythm. Edema: no edema noted Pulmonary/Chest: Effort normal and breath sounds normal. No tachypnea. No respiratory distress. Abdominal: Soft. exhibits no distension. There is no guarding. Epigastric abdominal tenderness/chest discomfort on palpation. Non-peritonitic but appears uncomfortable. Musculoskeletal: General: No deformity. Normal range of motion. Cervical back: Normal range of motion and neck supple. Neurological: Alert and oriented to person, place, and time. Skin: Skin is warm and dry. Psychiatric: She has a normal mood and affect. Behavior is normal. Thought content normal. ASSESSMENT/PLAN Assessment and Plan Patient is a 68-year-old female presenting to the emergency department for evaluation of chest pain. Patient was evaluated in this emergency department yesterday and ultimately decided to leave afterthe workup. It was recommended that she be admitted to the hospital. She states that she was feeling somewhat better but then subsequently had worsening pain overnight which prompted her to come backto the emergency department. She denies any fall, injury or trauma. She denies any vomiting. She reports mid lower sternal chest discomfort as well as epigastric pain. She is bradycardic on evaluation. She is afebrile. She is quite cachectic appearing. Daughter is at bedside and notes that she has been concerned regarding her kidney function which was increasing yesterday. Her cardiac biomarkers overall were not changing and she subsequently was going to be admitted to medicine but decided to discharge home against medical advice. She is returning today stating that the pain is worsening and is amenable to admission. We will obtain CBC, BMP, CRP, cardiac biomarkers, lipase, hepatic panel, lactate as well as EKG. Additionally there was some concern on CT scan yesterday about pericarditis. She did have an elevated CRP and cardiac biomarkers were elevated but not changing. We will obtain an echocardiogram from the emergency department for further evaluation. Patient will likely require ad mission to the hospital with final disposition pending results and patient's status.. DIFFERENTIAL DIAGNOSES Pericarditis, CAD/mi, pancreatitis, gastritis, GERD, acute kidney injury, among others.. ED Course as of 09/19/232025 Idania September 19, 2023 1612 Lactate: 0.6 1647 C-Reactive Protein (CRP), S(!): 141.2 1647 Troponin T, Baseline, 5th gen(!): 106 1826 Creatinine(!): 2.29 1833 2H Delta Interp: Not Changing 1846 Patient's troponins are not changing. She has a small pericardial effusion on formal echocardiogram without evidence of constrictive pericarditis. We will plan to admit to the medicine service as was previously planned yesterday for further management. We will start her on some IV fluids. She remains vitally stable and I feel she is appropriate for floor admission. Final Diagnoses: as of 09/19/232025 Failure Renal Acute (Acute Kidney Injury) (HCC) Effusion Pericardial Acute (HCC) Prolonged QT Interval Pain Chest Care Handoff Row Name 09/19/23 3540 Care Handoff Type of Handoff Admission handoff I personally performed the services described in this documentation, as scribed in my presence, andit is both accurate and complete. Sakina Anderson APRN, C.N.PMarlys, D.N.P. 09/19/232025 * Arlen Cadet R.N. - 09/19/2023 3:17 PM CDT Patient is back after leaving yesterday AMA comes back today due to worsening symptoms. Arlen Cadet R.N. 09/19/23 1518 documented in this encounter Miscellaneous Notes * Hospital Course - Fatemeh Newman M.D., M.H.A. - 09/21/2023 5:50 PM CDT Ms. Jacqueline Galvan is a 68 y.o. woman who presented to the ED on 09/18 for persistent abdominal pain, nausea, and poor appetite. Medical comorbidities include ESRD s/p renal transplant x2 (', '17, on [place], CellCept, Pred), CAD s/p PCI ('06), Afib (not on AC), AAA, HTN, chronic hyponatremia,osteoporosis. She was recently admitted 08/19-08/29 for acute cholecystitis and is s/p percutaneous cholecystostomy tube due to poor surgical candidacy. That hospital course was complicated by ATN, acute hypoxic respiratory failure in the setting of pleural effusion requiring home going oxygen (1 L). Upon arrival to the ED patient was found to have sinus bradycardia but otherwise hemodynamically stable and afebrile. Initial lab evaluation notable for progression of PEDRITO (Cr 2.3, up from baseline of 1.3), Na 130, WBC 13 w/neutrophilia, CRP 141, Alk Phos 115, lactate 0.6. ECG demonstrated sinus bra dycardia with increased T-wave inversion in inferior leads, although no ST elevations meeting criteria for STEMI. Initial troponin 106, downtrended to 92 at two hours. TTE in the ED demonstrated small circumferential pericardial effusion, preserved EF, no RWA. Cross-sectional imaging not obtained, however CT A/P yesterday demonstrated small free pelvic fluid without evidence of acute intra-abdominal or intrapelvic process, cholecystostomy tube in correct position, thickened and slightly hyperdense pericardium (Radiologist recommended consideration of pericarditis if clinical picture fits). The patient was admitted to the medicine 14 service for ongoing evaluation and management of PEDRITO and abdominal pain. Over the first 24 hours after ED presentation, patient received 2.5 L crystalloid bolus due to suspected dehydration and prerenal PEDRITO, however patient's creatinine and Cystatin trend continued worsening over the next several days. Her fluid exam remain challenging, and on 09/20 she received 1 unit PRBC (HGB 6.8), as well as 12.5 g of 25% albumin. That evening she began expressing increased shortness of breath (remained on 4 L NC) and bedside ultrasound demonstrated new left pleural effusion along with increased size of right pleural effusion. The following day diuresis was initiated (Bumex 2 mg IV) and Interventional Pulmonary performed right-sided thoracentesis with 825 cc fluid removed. Creatinine slowly improved to 2.5 on discharge with hope for further improvement. Nephrology plans continued outpatient follow-up. She was transitioned back to Bumex 2mg daily with plans for further outpatient titration. On 09/20 a stool pathogen panel was obtained due to loose stools and persistent abdominal symptoms,and was positive for C diff. She was started on a 10 day course of oral vancomycin 125 mg QID, and after discussion with both ID and Nephrology was decided to continue her home CellCept dosing. Pericarditis was entertained as a cause for her pericardial imaging findings and elevated CRP. Her prednisone was increased. Ultimately, Cardiology favored that this was not likely and prednisone wasbrought back to home dosing. She does not require Cardiology or Pericardial Clinic followup at thispoint. If her symptoms do recur with decrease of the prednisone or her inflammatory markers again begin to rise, Cardiology does recommend obtaining a cardiac MRI in either the inpatient or outpatient setting to further assess the pericardium, and Cardiology Clinic followup could be scheduled at that point. * ACP (Advance Care Planning) - Rufino Lopez M.D. - 09/21/2023 1:04 PM CDT Advanced Care Planning Note Today I discussed goals of care with Mrs. Jacqueline Galvan and her , Silvino. To begin, I asked their understanding of what we are treating here in the hospital. Jacqueline and Silvino express their understanding that we are working to determine the cause of her abdominal pain and weight loss. I explained that this morning we saw on her labs that her hemoglobin continued to downtrend (6.8), and that for values <7 we typically recommend a transfusion in order to keep her safe. I also explained that her renal function has continued to worsen (Cr 3.21, eGFR 15, pending Cystatin) despite fluid administration for suspected dehydration. Before further describing our plan for the day, I asked Jacqueline what her biggest priorities are as we think about ongoing treatments both in and out of the hospital. She explained that she is gettingtired of being in the hospital, and has begun feeling depressed based on all of the medical complications over the past year. She ???just wants to get better?? so that she can get home and spend time with her , kids, and grandkids. She feels that when she is home it is important for her to have some mobility, and that she has experienced frustrations in the past coming home from long hospital stays due to her weakness and reliance on others, ???feeling like I am starting over from scratc h?? . When asked how these priorities effect her goals for this hospitalization, she states that she still wants to get better but that it is hard spending so much time in the hospital 2.5 hours awayfrom her family who have been driving in to see her. I asked Jacqueline if she was familiar with the term palliative medicine, which she was not. I explained that palliative medicine focuses on the treatment of symptoms and emphasizes quality of life during complex medical decision-making. I also explained that many people relate it to the term hospice,which they are often more familiar with. Jacqueline then asked me, ???Am I dying?. I explained that Patric concerned regarding her recent weight loss despite PEG tube feeding, as well as her progressive worsening of kidney function. I explained that if we are unable to improve these two processes that they may eventually take her life. I explained that there is still a lot of uncertainty regarding her abdominal symptoms and kidney dysfunction, and that we are currently working to better understand and treat them. I also explained that based on these uncertainties it is difficult to make firm predictions regarding needing dialysis, discharging from the hospital, and overall time remaining. I explained that despite these uncertainties, the team hopes to make her priorities the focus of ongoing d ecision-making. I asked if she would find it helpful to speak with a hospital motors and controls tester, to which she replied ???not yet?? . I also mentioned that our palliative care team can be helpful in navigatingthese complex conversations as well. Her and her said that they would first talk with her kids, however remain fairly open to conversations with palliative care moving forward. Jacqueline and I also discussed her code status. I explained the process of ???full resuscitation?? which includes chest compressions, intubation, and sometimes electrical shocks and medicines to get the heart beating again. I explained that when patients are sick, the likelihood of successfully restarting the heart is lower. I also explained that when resuscitation is successful, patient's typically need some time in the ICU and often do not return all the way to their functional baseline. Afterdiscussing these things, I asked Jacqueline if she would want these measures taken in the event of cardiac arrest. Jacqueline requests that we keep her as ???full code?? . I explained that if Jacqueline's kidney function continues worsening, she could develop develop fluid overload, electrolyte imbalances, or the buildup of toxins which may require hemodialysis to be reversed. When asked about her thoughts on re-starting dialysis, she said that she would be open to dialysis if that was recommended by the team. She mentioned that she previously enjoyed having her outpatient dialysis sessions in the morning at 6:00 a.m., as it left her more time later in the day to dowhat she enjoys. If inpatient dialysis with dialysis line placement is recommended by her care teams, she states that she would agree to proceed. After speaking together in the room, her Silvino and I had a brief conversation to summarize what we discussed. He expressed his understanding that Jacqueline's overall clinical status has worsened over the last few months, and he himself is worried about how she had been doing at home. He initially felt that after her last hospital discharge that she had been thriving?? at home before theseabdominal symptoms worsened, and he worries that her time here in the hospital has become discouraging. He also mentions that during prior discussions she had been adamant that she does not want to go to a ???longterm?? . Silvino currently has a health aide that would be available to come to the house daily, although he expresses concern that this may not be enough given all of the support she is needing right now. He summarized his views, saying ???she is worried about her health getting worse if she goes home, and I think it would be best to continue evaluating and treating things here int hospital until we decide that things may not be reversible?? . Both he and Jacqueline remain open to ongoing goals of care conversations. At this time she remains full code, would be open to dialysis, and is hoping to further diagnose and treat her multiple medical comorbidities. Rufino Lopez MD PGY-3, Internal Medicine Residency documented in this encounter Plan of Treatment Upcoming Encounters Date Type Department Care Team (Latest Contact Info) Description 01/03/2024 2:15 PM CDT Clinical Communication Virtual Review in [place] [address] [place] [address] 01/07/2024 3:00 PM CDT Office Visit Division of Gastroenterology in [place], [place] [address] [place] [address] Hank Garner Jr., M.D. [address] [place] [address] Pending Results Name Type Priority Associated Diagnoses Date /Time Prepare Red Blood Cells, 1 Units Blood Bank Routine 09/21/2023 1:03 PM CDT Type and Screen (with Reflex Antibody ID) Lab Routine 09/21/2023 1 :03 PM CDT documented as of this encounter Procedures Procedure Name Priority Date/Time Associated Diagnosis Comments CBC WITH DIFFERENTIAL, B Routine 09/24/2023 6:41 AM CDT BASIC METABOLIC PANEL, S/P Routine 09/24/2023 6:41 AM CDT METHYLMALONIC ACID (MMA), MURALI, S Routine 09/24/2023 6:21 AM CDT TACROLIMUS LEVEL, B Timed 09/23/2023 8 :24 AM CDT CBC WITH DIFFERENTIAL, B Routine 09/23/2023 8:24 AM CDT C-REACTIVE PROTEIN (CRP), S/P Routine 09/23/2023 8:24 AM CDT MAGNESIUM, S Routine 09/23/2023 8:24 AM CDT FOLATE, S Routine 09/23/2023 8:24 AM CDT VITAMIN B12 ASSAY, S Routine 09/23/2023 8:24 AM CDT BASIC METABOLIC PANEL, S/P Routine 09/23/2023 8:24 AM CDT BASIC METABOLIC PANEL, S/P Routine 09/22/2023 4:25 PM CDT AL THORACENTESIS PLEURA W IMG Routine 09/22/2023 1:18 PM CDT Effusion Pleural DX CHEST PORTABLE 1 VIEW RAD - Semiurgent (Fast; most ED patients; some inpatients) 09/22/2023 9:13 AM CDT CBC WITH DIFFERENTIAL, B Routine 09/22/2023 8:12 AM CDT BASIC METABOLIC PANEL, S/P Routine 09/22/2023 8:12 AM CDT GI PATHOGEN PANEL, PCR, F Routine 09/21/2023 7:50 PM CDT SPSMA RESULT Routine 09/21/2023 7:18 PM CDT LACTATE DEHYDROGENASE (LD), S Routine 09/21/2023 7:18 PM CDT HAPTOGLOBIN, S Routine 09/21/2023 7:18 PM CDT BASIC METABOLIC PANEL, S/P Timed 09/21/2023 7:18 PM CDT TRANSFUSE RED BLOOD CELLS Routine 09/21/2023 4:45 PM CDT ABORH, RBC Routine 09/21/2023 1:03 PM CDT ANTIBODY IDENTIFICATION Routine 09/21/2023 1:03 PM CDT SEDIMENTATION RATE, B STAT 09/21/2023 1:03 PM CDT PREPARE RED BLOOD CELLS Routine 09/21/2023 1:03 PM CDT TYPE AND SCREEN Routine 09/21/2023 1:03 PM CDT HEPATIC FUNCTION PANEL, S Timed 09/21/2023 9:23 AM CDT CYSTATIN C WITH EGFR Routine 09/21/2023 9:23 AM CDT NT-PRO B-TYPE NATRIURETIC PEPTIDE (BNP), S Routine 09/21/2023 9:23 AM CDT TACROLIMUS LEVEL, B Timed 09/21/2023 9 :23 AM CDT CBC WITH DIFFERENTIAL, B Routine 09/21/2023 9:23 AM CDT C-REACTIVE PROTEIN (CRP), S/P Routine 09/21/2023 9:23 AM CDT BASIC METABOLIC PANEL, S/P Routine 09/21/2023 9:23 AM CDT US KIDNEY TRANSPLANT LEFT WITH DOPPLER RAD - Routine (most inpatients and all outpatients) 09/20/2023 1:00 PM CDT HEPATIC FUNCTION PANEL, S Routine 09/20/2023 9:28 AM CDT TACROLIMUS LEVEL, B Timed 09/20/2023 9 :28 AM CDT CBC WITH DIFFERENTIAL, B Routine 09/20/2023 9:28 AM CDT PHOSPHORUS (INORGANIC), S Routine 09/20/2023 9:28 AM CDT MAGNESIUM, S Routine 09/20/2023 9:28 AM CDT BASIC METABOLIC PANEL, S/P Routine 09/20/2023 9:28 AM CDT US GALLBLADDER AND OR BILIARY DUCTS RAD - Semiurgent (Fast; most ED patients; some inpatients) 09/19/2023 11:45 PM CDT TROPONIN T, 2H/6H, 5TH GEN, P Timed 09/19/2023 6:09 PM CDT (TTE) 2D LIMITED WITH COLOR AND DOPPLER STAT 09/19/2023 5:22 PM CDT LACTATE, B STAT 09/19/2023 3:59 PM CDT TROPONIN T, BASELINE, 5TH GEN, P STAT 09/19/2023 3:59 PM CDT HEPATIC FUNCTION PANEL, S STAT 09/19/2023 3:59 PM CDT PROTHROMBIN TIME (PT), P STAT 09/19/2023 3:59 PM CDT CBC WITH DIFFERENTIAL, B STAT 09/19/2023 3:59 PM CDT C-REACTIVE PROTEIN (CRP), S/P STAT 09/19/2023 3:59 PM CDT LIPASE, S/P STAT 09/19/2023 3:59 PM CDT BASIC METABOLIC PANEL, S/P STAT 09/19/2023 3:59 PM CDT ECG STAT 09/19/2023 3:12 PM CDT SODIUM, RANDOM, U Routine 09/18/2023 3:5 9 PM CDT CREATININE, RANDOM, U Routine 09/18/2023 3:59 PM CDT CYSTATIN C WITH EGFR Routine 09/18/2023 11:42 AM CDT documented in this encounter Results * (ABNORMAL) Basic Metabolic Panel (09/24/2023 6:41 AM CDT) Potassium, S 4.8 3.6 - 5.2 mmol/L [...] CDT Rufino Lopez M.D. LAB BLOOD ADD-ON [facility] [address] [place] [address], [facility] [address] [place] [address] * (ABNORMAL) CBC with Differential, Blood (09/24/2023 6:41 AM CDT) Hemoglobin 8.1(L) 11.6 - 15.0 g/dL 09/24/2023 [...] CDT Rufino Lopez M.D. LAB BLOOD ADD-ON [address] [address], [facility] [address] [place] [address] * (ABNORMAL) Methylmalonic Acid (MMA), Quantitative (09/24/2023 6:21 AM CDT) Methylmalonic Acid, QN, S 0.66(H) <=0.40 nmol/mL 09/26/2023 7:57 AM CDT DTL Comment: In this sample, the concentration of methylmalonic acid (MMA) was elevated. This finding is likely related to vitamin B12 deficiency. ----ADDITIONAL INFORMATION---- This test was developed and its performance characteristics determined by [facility] in a manner consistent with CLIA requirements. This test has not been cleared or approved by the U.S. Food and Drug Administration. Blood (Blood, Venous) 09/24/2023 6:21 AM CDT 09/25/2023 7:56 AM CDT Fatemeh Newman M.D., M.H.A. LAB BLOOD ADD -ON Performing Organization Address City/[facility]/ZIP Co de Phone Number [facility] [address] 200 [facility] 200 [place] [address] * Magnesium (09/23/2023 8:24 AM CDT) Pathologist [facility] Magnesium, S 2.1 1.7 - 2.3 mg/dL 09/23/2023 1:26 PM CDT DT Blood 09/23/2023 8:24 AM CDT 09/23/2023 12:54 PM CDT Rufino Lopez M.D. LAB BLOOD ADD-ON Performing Organization Address City/[facility]/ZIP Co de Phone Number [facility] 200 [place], [place] [address] [place] [address] 200 [place] [address] * Folate (09/23/2023 8:24 AM CDT) [facility] Folate, S >20.0 >=4.0 mcg/L 09/24/2023 8: 04 AM CDT DT Blood 09/23/2023 8:24 AM CDT 09/23/2023 12:54 PM CDT Rufino Lopez M.D. LAB BLOOD ADD-ON [facility] [address] 200 [place] [address] * Vitamin B12 Assay (09/23/2023 8:24 AM CDT) [facility] Vitamin B12 Assay, S 184 180 - 914 ng/L 09/24/2023 8:16 AM CDT DTL Comment: ----ADDITIONAL INFORMATION---- In patients being evaluated [...] CDT Rufino Lopez M.D. LAB BLOOD ADD-ON [address] [address], [facility] [address] [address] * (ABNORMAL) CBC with Differential, Blood (09/23/2023 8:24 AM CDT) Pathologist [facility] Hemoglobin 8.2(L) 11.6 - 15.0 g/dL 09/23/2023 9:44 AM CDT DTL Hematocrit 24.8(L) 35.5 - 44.9 % 09/23/2023 9:44 AM CDT DTL Erythrocytes 2.81(L) 3.92 - 5.13 x10(12)/L 09/23/2023 9:44 AM CDT DTL MCV 88.3 78.2 - 97.9 fL 09/23/2023 9:44 AM CDT DTL RBC Distrib Width 16.1 12.2 - 16.1 % 09/23/2023 9:44 AM CDT DTL Platelet Count 305 157 - 371 x10(9)/L 09/23/2023 9:44 AM CDT DTL Leukocytes 10.2(H) 3.4 - 9.6 x10(9)/L 09/23/2023 9:44 AM CDT DTL Neutrophils 8.16(H) 1.56 - 6.45 x10(9)/L 09/23/2023 9:44 AM CDT DH[facility] Lymphocytes 1.20 0.95 - 3.07 x10(9)/L 09/23/2023 9:44 AM CDT DTL Monocytes 0.78 0.26 - 0.81 x10(9)/L 09/23/2023 9:44 AM CDT DTL Eosinophils 0.03 0.03 - 0.48 x10(9)/L 09/23/2023 9:44 AM CDT DTL Basophils 0.04 0.01 - 0.08 x10(9)/L 09/23/2023 9:44 AM CDT DTL Blood (Blood, Venous) 09/23/2023 8:24 AM CDT 09/23/2023 8:45 AM CDT Sue Patrick M.D., M.P.H. LAB BLOOD ADD -ON [facility] 200 [place] [address], [facility] DTL [facility] [address] 200 [place] [address] * (ABNORMAL) Basic Metabolic Panel (09/23/2023 8:24 AM CDT) Pathologist [facility] Potassium, S 4.9 3.6 - 5.2 mmol/L 09/23/2023 11:23 AM CDT DTL Sodium, S 133(L) 135 - 145 mmol/L 09/23/2023 11:23 AM CDT DTL Chloride, S 98 98 - 107 mmol/L 09/23/2023 11:23 AM CDT DTL Bicarbonate, S 20(L) 22 - 29 mmol/L 09/23/2023 11:23 AM CDT DTL Anion Gap 15 7 - 15 09/23/2023 11:23 AM CDT DTL BUN (Blood Urea Nitrogen), S 70(H) 6 - 21 mg/dL 09/23/2023 11:23 AM CDT DTL Creatinine 3.00(H) 0.59 - 1.04 mg/dL 09/23/2023 11:23 AM CDT DTL Estimated GFR (eGFR) 16(L) >=60 mL/min/BSA 09/23/2023 11:23 AM CDT DTL Comment: Estimated GFR calculated using the 2020 CKD_EPI creatinine equation. Calcium, Total, S 9.3 8.8 - 10.2 mg/dL 09/23/2023 11:23 AM CDT DTL Glucose, S 90 70 - 140 mg/dL 09/23/2023 11:23 AM CDT DTL Blood (Blood, Venous) 09/23/2023 8:24 AM CDT 09/23/2023 8:56 AM CDT Sue Patrick M.D., M.P.H. LAB BLOOD ADD -ON [facility] 200 [place], [place] [address] [place] [address] 200 [place] [address] * (ABNORMAL) CRP (C-Reactive Protein) (09/23/2023 8:24 AM CDT) Pathologist [facility] C-Reactive Protein (CRP), S 51.9(H) <5.0 mg/L 09/23/2023 11:23 AM CDT DTL Blood (Blood, Venous) 09/23/2023 8:24 AM CDT 09/23/2023 8:56 AM CDT Rufino Lopez M.D. LAB BLOOD ADD-ON [facility] [address] [place], [place] [address] 200 [place] [address] * (ABNORMAL) Tacrolimus, Trough (09/23/2023 8:24 AM CDT) Pathologist [facility] Tacrolimus, Trough 4.5(L) 5.0-15.0 (Trough) ng/mL 09/23/2023 12:44 PM CDT [facility] Comment: ----ADDITIONAL INFORMATION---- Target steady-state trough concentrations vary depending on the type of transplant, concomitant immunosuppression, clinical/institutional protocols, and time post-transplant. Results should be interpreted in conjunction with this clinical information and any physical signs/symptoms of rejection/toxicity. Testing performed by Liquid Chromatography-Tandem Mass Spectrometry (LC-MS/MS). This test was developed and its performance characteristics determined by [facility] in a manner consistent with CLIA requirements. This test has not been cleared or approved by the U.S. Food and Drug Administration. Blood (Blood, Venous) 09/23/2023 8:24 AM CDT 09/23/2023 9:55 AM CDT Rufino Lopez M.D. LAB BLOOD NON ADD-ON [facility] [address] [place] [address] [facility] [address] [place] [address] [place] [address] * (ABNORMAL) Basic Metabolic Panel (09/22/2023 4:25 PM CDT) [facility] Potassium, S 5.1 3.6 - 5.2 mmol/L 09/22/2023 5:13 PM CDT DTL Sodium, S 131(L) 135 - 145 mmol/L 09/22/2023 5:13 PM CDT DTL Chloride, S 96(L) 98 - 107 mmol/L 09/22/2023 5:13 PM CDT DTL Bicarbonate, S 20(L) 22 - 29 mmol/L 09/22/2023 5:13 PM CDT DTL Anion Gap 15 7 - 15 09/22/2023 5:13 PM CDT DTL BUN (Blood Urea Nitrogen), S 67(H) 6 - 21 mg/dL 09/22/2023 5:13 PM CDT DTL Creatinine 3.38(H) 0.59 - 1.04 mg/dL 09/22/2023 5:13 PM CDT DTL Estimated GFR (eGFR) <15(L) >=60 mL/min/BSA 09/22/2023 5:13 PM CDT DTL Comment: Estimated GFR calculated using the 2020 CKD_EPI creatinine equation. Calcium, Total, S 8.7(L) 8.8 - 10.2 mg/dL 09/22/2023 5:13 PM CDT DTL Glucose, S 197(H) 70 - 140 mg/dL 09/22/2023 5:13 PM CDT DTL Blood (Blood, Venous) 09/22/2023 4:25 PM CDT 09/22/2023 4:38 PM CDT Rufino Lopez M.D. LAB BLOOD ADD-ON [facility] [address] [place] [address], [facility] [address] [place] [address] * AL THORACENTESIS PLEURA W IMG (09/22/2023 1:18 PM CDT) Narrative Torito Carty M.D. - 09/22/2023 1:18 PM CDT Torito Carty M.D. ? 09/22/2023 ??1:25 PM Thoracentesis Performed by: Torito Carty M.D. Authorized by: Torito Carty M.D. ?? Care team members present 1. Sanket Lopez M.D. PROCEDURE DETAILS Patient position: sitting Location: right posterior Intercostal space: 9th Puncture method: [id number] catheter Number of attempts: 1 Drainage characteristics: [...] incision was made and then a 5.0 [place] [employer] catheter was advanced while aspirating over the [...] Carty M.D. PROCEDURE/MINOR SURG ICAL ORDERABLES * DX Chest Portable 1 View (09/22/2023 9:13 AM CDT) Anatomical Region Laterality Modality Chest, Thoracic [...] silhouette. Coronary stents. Vascularcalcifications. Rufino Lopez M.D. [facility] [place] DIAGNOSTIC IMAGI NG PROCEDURES * (ABNORMAL) CBC with Differential, Blood (09/22/2023 8:12 AM CDT) Hemoglobin 8.4(L) 11.6 - 15.0 g/dL 09/22/2023 9:09 AM CDT DTL Hematocrit 25.7(L) 35.5 - 44.9 % 09/22/2023 9:09 AM CDT DTL Erythrocytes 2.95(L) 3.92 - 5.13 x10(12)/L 09/22/2023 9:09 AM CDT DTL MCV 87.1 78.2 - 97.9 fL 09/22/2023 9:09 AM CDT DTL RBC Distrib Width 16.1 12.2 - 16.1 % 09/22/2023 9:09 AM CDT DTL Platelet Count 281 157 - 371 x10(9)/L 09/22/2023 9:09 AM CDT DTL Leukocytes 10.9(H) 3.4 - 9.6 x10(9)/L 09/22/2023 9:09 AM CDT DTL Neutrophils 8.74(H) 1.56 - 6.45 x10(9)/L 09/22/2023 9:09 AM CDT [facility] Lymphocytes 1.20 0.95 - 3.07 x10(9)/L 09/22/2023 9:09 AM CDT DTL Monocytes 0.92(H) 0.26 - 0.81 x10(9)/L 09/22/2023 9:09 AM CDT DTL Eosinophils 0.06 0.03 - 0.48 x10(9)/L 09/22/2023 9:09 AM CDT DTL Basophils <0.03 0.01 - 0.08 x10(9)/L 09/22/2023 9:09 AM CDT DTL Blood (Blood, Venous) 09/22/2023 8:12 AM CDT 09/22/2023 9:02 AM CDT Sue Patrick M.D., M.P.H. LAB BLOOD ADD -ON [facility] [address] [place] [address], [facility] DTL [facility] [address] [place] [address] [facility] 200 [place] [address] * (ABNORMAL) Basic Metabolic Panel (09/22/2023 8:12 AM CDT) Pathologist [facility] Potassium, S 4.4 3.6 - 5.2 mmol/L 09/22/2023 9:41 AM CDT DTL Sodium, S 131(L) 135 - 145 mmol/L 09/22/2023 9:41 AM CDT DTL Chloride, S 95(L) 98 - 107 mmol/L 09/22/2023 9:41 AM CDT DTL Bicarbonate, S 22 22 - 29 mmol/L 09/22/2023 9:33 AM CDT DTL Anion Gap 14 7 - 15 09/22/2023 9:41 AM CDT DTL BUN (Blood Urea Nitrogen), S 65(H) 6 - 21 mg/dL 09/22/2023 9:33 AM CDT DTL Creatinine 3.36(H) 0.59 - 1.04 mg/dL 09/22/2023 9:33 AM CDT DTL Estimated GFR (eGFR) <15(L) >=60 mL/min/BSA 09/22/2023 9:33 AM CDT DTL Comment: Estimated GFR calculated using the 2020 CKD_EPI creatinine equation. Calcium, Total, S 9.1 8.8 - 10.2 mg/dL 09/22/2023 9:33 AM CDT DTL Glucose, S 83 70 - 140 mg/dL 09/22/2023 9:33 AM CDT DTL Blood (Blood, Venous) 09/22/2023 8:12 AM CDT 09/22/2023 9:16 AM CDT Sue Patrick M.D., M.P.H. LAB BLOOD ADD -ON [facility] [address] [place] [address], [facility] DTL [facility] [address] [place] [address] * (ABNORMAL) GI Pathogen Panel, PCR, Feces [...] CDT DTL Rotavirus Ag, F Negative Negative 4 10:18 PM CDT DTL Sapovirus Negative Negative 09/21/2023 10:18 PM CDT DTL Comment: ----ADDITIONAL INFORMATION---- This assay is performed using the FDA-cleared SynterventionArray GI Panel ([employer] Semi-Urgent This is a semi-urgen t result(GAXIOLA) [facility] Stool (Stool) 09/21/2023 7:5 0 PM CDT 09/21/2023 8:52 PM CDT Rufino Lopez M.D. LAB MICROBIOLOGY - G ENERAL ORDERABLES [facility] [address] DTL [address] [facility] [address] [place] [address] * (ABNORMAL) Basic Metabolic Panel (09/21/2023 7:18 PM CDT) Potassium, S 5.0 3.6 - 5.2 mmol/L 09/21/2023 8:27 PM CDT DTL Sodium, S 127(L) 135 - 145 mmol/L 09/21/2023 8:27 PM CDT DTL Chloride, S 93(L) 98 - 107 mmol/L 09/21/2023 8:27 PM CDT DTL Bicarbonate, S 20(L) 22 - 29 mmol/L 09/21/2023 8:27 PM CDT DTL Anion Gap 14 7 - 15 09/21/2023 8:27 PM CDT DTL BUN (Blood Urea Nitrogen), S 64(H) 6 - 21 mg/dL 09/21/2023 8:27 PM CDT DTL Creatinine 3.36(H) 0.59 - 1.04 mg/dL 09/21/2023 8:27 PM CDT DTL Estimated GFR (eGFR) <15(L) >=60 mL/min/BSA 09/21/2023 8:27 PM CDT DTL Comment: Estimated GFR calculated using the 2020 CKD_EPI creatinine equation. Calcium, Total, S 8.7(L) 8.8 - 10.2 mg/dL 09/21/2023 8:27 PM CDT DTL Glucose, S 228(H) 70 - 140 mg/dL 09/21/2023 8:27 PM CDT DTL Blood (Blood, Venous) 09/21/2023 7:18 PM CDT 09/21/2023 8:09 PM CDT Rufino Lopez M.D. LAB BLOOD ADD-ON Performing Organization Address City/[facility]/ZIP Co de Phone Number [facility] 200 [place] [address], [facility] DTL [facility] 200 [place] [address] * (ABNORMAL) SPSMA Result (09/21/2023 7:18 PM CDT) Neutrophilic Segs and Bands 98(H) 50 - [...] M.D. LAB BLOOD ADD-ON Performing Organization Address City/[facility]/ZIP Co de Phone Number [facility] 200 [place] [address], [facility] DHPM [facility] 200 [place] [address] * (ABNORMAL) Haptoglobin (09/21/2023 7:18 PM CDT) [facility] Haptoglobin, S 266(H) 30 - 200 mg/dL 09/23/2023 3:36 PM CDT [facility] Blood (Blood, Venous) 09/21/2023 7:18 PM CDT 09/23/2023 6:56 AM CDT Rufino Lopez M.D. LAB BLOOD ADD-ON [facility] [address] [place] [address] [facility] [address] [place] [address] * LD (Lactate Dehydrogenase) (09/21/2023 7:18 PM CDT) [facility] LD 139 122 - 222 U/L 09/21/2023 8:18 PM CDT DT Blood (Blood, Venous) 09/21/2023 7:18 PM CDT 09/21/2023 7:57 PM CDT Rufino Lopez M.D. LAB BLOOD NON ADD-ON Performing Organization Address [facility] Co de Phone Number [facility] [address] [place] [address], [facility] [address] [place] [address] * Transfuse Red Blood Cells : (09/21/2023 6:34 PM CDT) Rufino Lopez M.D. BLOOD TRANSFUSION OR DERABLES * Transfuse Red Blood Cells : , 1 Units (09/21/2023 6:34 PM CDT) Rufino Lopez M.D. BLOOD TRANSFUSION OR DERABLES * ABO/Rh Problem, RBC (09/21/2023 1:03 PM CDT) [facility] ABORh A Neg Not applicable 09/21/2023 2:24 PM CDT DTL Blood 09/21/2023 1:03 PM CDT 09/21/2023 1:10 PM CDT Rufino Lopez M.D. LAB BLOOD BANK TEST ORDERABLES [facility] [address] [place] [address], [facility] 200 [place] [address] * Antibody Identification, Erythrocytes (09/21/2023 1:03 PM CDT) Antibody Identification No antibody detected 09/21/2023 2:24 PM CDT DT 09/21/2023 1:03 PM CDT 09/21/2023 1:10 PM CDT Narrative [facility] - 09/21/2023 2:24 PM CDT Specimen Information: Specimen ID: [id number] Specimen Collection Start Date: 09/21/2023 ??1:03 PM Specimen Received Date: 09/21/2023 ??1:10 PM Specimen ID: [id number] Specimen Collection Start Date: 09/21/2023 ??1:03 PM Specimen Received Date: 09/21/2023 ??1:10 PM Rufino Lopez M.D. LAB BLOOD BANK TEST ORDERABLES Performing Organization Address [facility] Co de Phone Number [facility] [address] [place], [place] [address] [address] [place] [address] * (ABNORMAL) Sedimentation Rate (09/21/2023 1:03 PM CDT) Sedimentation Rate, B 73(H) 2 - 22 mm/h 09/21/2023 2:14 PM CDT DT Blood 09/21/2023 1:03 PM CDT 09/21/2023 1:21 PM CDT Sue Patrick M.D., M.P.H. LAB BLOOD ADD -ON [facility] [address] [place] [address], [place] [facility] 200 [place] [address] * (ABNORMAL) NT-Pro B-Type Natriuretic Peptide (BNP) (09/21/2023 9:23 AM CDT) [facility] NT-Pro BNP 25471(H) <=540 pg/mL 09/21/2023 5:34 PM CDT DTL [...] CDT Rufino Lopez M.D. LAB BLOOD ADD-ON [facility] [address] [place], [place] [address] 200 [place] [address] * (ABNORMAL) Cystatin C with Estimated GFR (09/21/2023 9:23 AM CDT) [facility] eGFR by Cystatin C 11(L) >60 mL/min/BSA [...] M.D. LAB BLOOD ADD-ON Performing Organization Address City/[facility] Co de Phone Number [facility] [address] [place] [address], [facility] DTL [facility] [address] [place] [address] * (ABNORMAL) Tacrolimus, Trough (09/21/2023 9:23 AM CDT) Tacrolimus, Trough 4.7(L) 5.0-15.0 (Trough) ng/mL 09/22/2023 1:14 PM CDT [facility] Comment: ----ADDITIONAL INFORMATION---- Target steady-state trough concentrations vary depending on the type of transplant, concomitant immunosuppression, clinical/institutional protocols, and time post-transplant. Results should be interpreted in conjunction with this clinical information and any physical signs/symptoms of rejection/toxicity. Testing performed by Liquid Chromatography-Tandem Mass Spectrometry (LC-MS/MS). This test was developed and its performance characteristics determined by [facility] in a manner consistent with CLIA requirements. This test has not been cleared or approved by the U.S. Food and Drug Administration. Blood (Blood, Venous) 09/21/2023 9:23 AM CDT 09/22/2023 7:40 AM CDT Kayli Jennings M.D. LAB BLOOD NON ADD-ON Performing Organization Address City/[facility]/ZIP Co de Phone Number [facility] [address] [place] [address] [facility] [address] [place] [address] [place] [address] * (ABNORMAL) Hepatic Function Panel (09/21/2023 9:23 AM CDT) Bilirubin, Total, S 0.3 0.0 - 1.2 [...] Patrick M.D., M.P.H. LAB BLOOD ADD -ON [facility] [address] [place] [address], [facility] [address] [place] [address] * (ABNORMAL) CBC with Differential, Blood (09/21/2023 9:23 AM CDT) Hemoglobin 6.8(L) 11.6 - 15.0 g/dL 09/21/2023 9:51 AM CDT DTL Hematocrit 22.1(L) 35.5 - 44.9 % 09/21/2023 9:51 AM CDT DTL Erythrocytes 2.41(L) 3.92 - 5.13 x10(12)/L 09/21/2023 9:51 AM CDT DTL MCV 91.7 78.2 - 97.9 fL 09/21/2023 9:51 AM CDT DTL RBC Distrib Width 16.7(H) 12.2 - 16.1 % 09/21/2023 9:51 AM CDT DTL Platelet Count 274 157 - 371 x10(9)/L 09/21/2023 9:51 AM CDT DTL Leukocytes 12.9(H) 3.4 - 9.6 x10(9)/L 09/21/2023 9:51 AM CDT DTL Neutrophils 10.19(H) 1.56 - 6.45 x10(9)/L 09/21/2023 9:51 AM CDT [facility] Lymphocytes 1.37 0.95 - 3.07 x10(9)/L 09/21/2023 9:51 AM CDT DTL Monocytes 1.19(H) 0.26 - 0.81 x10(9)/L 09/21/2023 9:51 AM CDT DTL Eosinophils 0.12 0.03 - 0.48 x10(9)/L 09/21/2023 9:51 AM CDT DTL Basophils <0.03 0.01 - 0.08 x10(9)/L 09/21/2023 9:51 AM CDT DTL Blood (Blood, Venous) 09/21/2023 9:23 AM CDT 09/21/2023 9:45 AM CDT Sue Patrick M.D., M.P.H. LAB BLOOD ADD -ON [facility] 200 [place] [address], [facility] DTL [facility] [address] [place], [place] [address] [place] [address] 200 [place] [address] * (ABNORMAL) Basic Metabolic Panel (09/21/2023 9:23 AM CDT) [facility] Potassium, S 4.7 3.6 - 5.2 mmol/L 09/21/2023 11:58 AM CDT DTL Sodium, S 127(L) 135 - 145 mmol/L 09/21/2023 11:58 AM CDT DTL Chloride, S 92(L) 98 - 107 mmol/L 09/21/2023 11:58 AM CDT DTL Bicarbonate, S 18(L) 22 - 29 mmol/L 09/21/2023 11:58 AM CDT DTL Anion Gap 17(H) 7 - 15 09/21/2023 11:58 AM CDT DTL BUN (Blood Urea Nitrogen), S 62(H) 6 - 21 mg/dL 09/21/2023 11:58 AM CDT DTL Creatinine 3.21(H) 0.59 - 1.04 mg/dL 09/21/2023 11:58 AM CDT DTL Estimated GFR (eGFR) 15(L) >=60 mL/min/BSA 09/21/2023 11:58 AM CDT DTL Comment: Estimated GFR calculated using the 2020 CKD_EPI creatinine equation. Calcium, Total, S 8.6(L) 8.8 - 10.2 mg/dL 09/21/2023 11:58 AM CDT DTL Glucose, S 97 70 - 140 mg/dL 09/21/2023 11:58 AM CDT DTL Blood (Blood, Venous) 09/21/2023 9:23 AM CDT 09/21/2023 10:01 AM CDT Sue Patrick M.D., M.P.H. LAB BLOOD ADD -ON [facility] [address] [place] [address] * (ABNORMAL) CRP (C-Reactive Protein) (09/21/2023 9:23 AM CDT) C-Reactive Protein (CRP), S 81.0(H) <5.0 mg/L 09/21/2023 11:58 AM CDT DTL Blood (Blood, Venous) 09/21/2023 9:23 AM CDT 09/21/2023 10:01 AM CDT Sue Patrick M.D., M.P.H. LAB BLOOD ADD -ON [facility] [address] DTL [facility] [address] * US Kidney Transplant Left with Doppler [...] M.D., M.P.H. IMG US PROCED URES * (ABNORMAL) Phosphorus Inorganic (09/20/2023 9:28 AM CDT) Phosphorus (Inorganic), S 5.3(H) 2.5 - 4.5 mg/dL 09/20/2023 2:06 PM CDT DTL Blood 09/20/2023 9:28 AM CDT 09/20/2023 1:22 PM CDT Sue Patrick M.D., M.P.H. LAB BLOOD ADD -ON [facility] [address] [place] [address], [facility] [address] [place] [address] * Magnesium (09/20/2023 9:28 AM CDT) Magnesium, S 2.0 1.7 - 2.3 mg/dL 09/20/2023 2:06 PM CDT DTL Blood (Blood, Venous) 09/20/2023 9:28 AM CDT 09/20/2023 1:22 PM CDT Sue Patrick M.D., M.P.H. LAB BLOOD ADD -ON Performing Organization Address City/[facility] Co de Phone Number [facility] [address] [place] [address], [facility] DTL [facility] [address] [place] [address] * Tacrolimus, Trough (09/20/2023 9:28 AM CDT) Tacrolimus, Trough 5.4 5.0-15.0 (Trough) ng/mL 09/20/2023 6:02 PM CDT [facility] Comment: ----ADDITIONAL INFORMATION---- Target steady-state trough concentrations vary depending on the type of transplant, concomitant immunosuppression, clinical/institutional protocols, and time post-transplant. Results should be interpreted in conjunction with this clinical information and any physical signs/symptoms of rejection/toxicity. Testing performed by Liquid Chromatography-Tandem Mass Spectrometry (LC-MS/MS). This test was developed and its performance characteristics determined by [facility] in a manner consistent with CLIA requirements. This test has not been cleared or approved by the U.S. Food and Drug Administration. Blood (Blood, Venous) 09/20/2023 9:28 AM CDT 09/20/2023 12:40 PM CDT Rufino Lopez M.D. LAB BLOOD NON ADD-ON Performing Organization Address [facility] Co de Phone Number [facility] [address] [place] [address] [facility] [address] [place] [address] [place] [address] * (ABNORMAL) Hepatic Function Panel (09/20/2023 9:28 AM CDT) Bilirubin, Total, S 0.5 0.0 - 1.2 mg/dL 09/20/2023 11:03 AM CDT DTL Bilirubin, Direct, S 0.2 0.0 - 0.3 mg/dL 09/20/2023 11:03 AM CDT DTL Aspartate Aminotransferase (AST), S 22 8 - 43 U/L 09/20/2023 11:03 AM CDT DTL Alanine Aminotransferase (ALT), S 19 7 - 45 U/L 09/20/2023 11:03 AM CDT DTL Alkaline Phosphatase, S 121(H) 35 - 104 U/L 09/20/2023 11:03 AM CDT DTL Albumin, S 2.9(L) 3.5 - 5.0 g/dL 09/20/2023 11:03 AM CDT DTL Protein, Total, S 6.4 6.3 - 7.9 g/dL 09/20/2023 11:03 AM CDT DTL Blood (Blood, Venous) 09/20/2023 9:28 AM CDT 09/20/2023 10:18 AM CDT Rufino Lopez M.D. LAB BLOOD ADD-ON [facility] [address] [place] [address], [facility] [address] [place] [address] * (ABNORMAL) CBC with Differential, Blood (09/20/2023 9:28 AM CDT) Hemoglobin 7.4(L) 11.6 - 15.0 g/dL 09/20/2023 10:34 AM CDT DHPM Hematocrit 23.5(L) 35.5 - 44.9 % 09/20/2023 10:34 AM CDT DHPM Erythrocytes 2.56(L) 3.92 - 5.13 x10(12)/L 09/20/2023 10:34 AM CDT DHPM MCV 91.8 78.2 - 97.9 fL 09/20/2023 10:34 AM CDT DHPM RBC Distrib Width 17.0(H) 12.2 - 16.1 % 09/20/2023 10:34 AM CDT DHPM Platelet Count 262 157 - 371 x10(9)/L 09/20/2023 10:34 AM CDT DHPM Leukocytes 10.2(H) 3.4 - 9.6 x10(9)/L 09/20/2023 10:34 AM CDT DHPM Neutrophils 7.75(H) 1.56 - 6.45 x10(9)/L 09/20/2023 10:34 AM CDT DHPM Lymphocytes 1.27 0.95 - 3.07 x10(9)/L 09/20/2023 10:34 AM CDT DHPM Monocytes 0.94(H) 0.26 - 0.81 x10(9)/L 09/20/2023 10:34 AM CDT DHPM Eosinophils 0.17 0.03 - 0.48 x10(9)/L 09/20/2023 10:34 AM CDT DHPM Basophils 0.04 0.01 - 0.08 x10(9)/L 09/20/2023 10:34 AM CDT DHPM Blood (Blood, Venous) 09/20/2023 9:28 AM CDT 09/20/2023 10:18 AM CDT Rufino Lopze M.D. LAB BLOOD ADD-ON [address] [address], [facility] [address] [place] [address] * (ABNORMAL) Basic Metabolic Panel (09/20/2023 9:28 AM CDT) Pathologist [facility] [place] Potassium, S 4.4 3.6 - 5.2 mmol/L 09/20/2023 11:03 AM CDT DTL Sodium, S 129(L) 135 - 145 mmol/L 09/20/2023 11:03 AM CDT DTL Chloride, S 93(L) 98 - 107 mmol/L 09/20/2023 11:03 AM CDT DTL Bicarbonate, S 22 22 - 29 mmol/L 09/20/2023 11:03 AM CDT DTL Anion Gap 14 7 - 15 09/20/2023 11:03 AM CDT DTL BUN (Blood Urea Nitrogen), S 54(H) 6 - 21 mg/dL 09/20/2023 11:03 AM CDT DTL Creatinine 2.76(H) 0.59 - 1.04 mg/dL 09/20/2023 11:03 AM CDT DTL Estimated GFR (eGFR) 18(L) >=60 mL/min/BSA 09/20/2023 11:03 AM CDT DTL Comment: Estimated GFR calculated using the 2020 CKD_EPI creatinine equation. Calcium, Total, S 8.7(L) 8.8 - 10.2 mg/dL 09/20/2023 11:03 AM CDT DTL Glucose, S 86 70 - 140 mg/dL 09/20/2023 11:03 AM CDT DTL Blood (Blood, Venous) 09/20/2023 9:28 AM CDT 09/20/2023 10:18 AM CDT Rufino Lopez M.D. LAB BLOOD ADD-ON [facility] [address] [place] [address], [facility] [facility] [address] [place] [address] * US Gallbladder and or Biliary Ducts [...] on CTabdomen pelvis 09/18/2023. Rufino Lopez M.D. IMG US PROCEDURES * (ABNORMAL) Troponin T, 2h/6h, 5th Gen (09/19/2023 6:09 PM CDT) Pathologist [facility] [place] Troponin T, 2 hr, 5th gen 92(H) [...] PM CDT 09/19/2023 6:12 PM CDT Narrative [facility] - 09/19/2023 10:40 PM CDT Specimen Information: Specimen ID: [id number] Specimen Type: Blood Specimen Collection Start Date: 09/19/2023 ??6:09 PM Specimen Received Date: 09/19/2023 ??6:12 PM Specimen ID: [id number] Specimen Type: Blood Specimen Collection Start Date: 09/19/2023 10:16 PM Specimen Received Date: 09/19/2023 10:24 PM Sakina Rush Radha Anderson APRNNMarlysPMarlys, D.N.P. LAB BLOOD TROPONIN [facility] [address] [place], [place] [address] [place] [address] [place] [address] * (TTE) 2D LIMITED WITH COLOR AND [...] of images performed. Procedure Note Christine Merida M.B.BMarlysS., Ph.D. - 09/19/2023 For the complete report, [...] C.N.P., D.N.P. CV E CHO PROCEDURES * Lipase (09/19/2023 3:59 PM CDT) Lipase, S 29 13 - 60 U/L 09/19/2023 5: 40 PM CDT DTL Blood 09/19/2023 3:59 PM CDT 09/19/2023 5:08 PM CDT Sakina Anderson APRN, C.N.P., D.N.P. LAB BLOOD ADD-ON [facility] [address] [place] [address], [facility] [address] [place] [address] * (ABNORMAL) Hepatic Function Panel (09/19/2023 3:59 PM CDT) Pathologist [facility] [place] Bilirubin, Total, S 0.6 0.0 - 1.2 mg/dL 09/19/2023 5:40 PM CDT DTL Bilirubin, Direct, S 0.3 0.0 - 0.3 mg/dL 09/19/2023 5:40 PM CDT DTL Aspartate Aminotransferase (AST), S 16 8 - 43 U/L 09/19/2023 5:40 PM CDT DTL Alanine Aminotransferase (ALT), S 16 7 - 45 U/L 09/19/2023 5:40 PM CDT DTL Alkaline Phosphatase, S 115(H) 35 - 104 U/L 09/19/2023 5:40 PM CDT DTL Albumin, S 3.1(L) 3.5 - 5.0 g/dL 09/19/2023 5:40 PM CDT DTL Protein, Total, S 6.6 6.3 - 7.9 g/dL 09/19/2023 5:40 PM CDT DTL Blood (Blood, Venous) 09/19/2023 3:59 PM CDT 09/19/2023 5:08 PM CDT Sakina Anderson APRN, C.N.P., D.N.P. LAB BLOOD ADD-ON [facility] [address] [place] [address], [facility] [address] [place] [address] * (ABNORMAL) CRP (C-Reactive Protein) (09/19/2023 3:59 PM CDT) Pathologist [facility] [place] C-Reactive Protein (CRP), S 141.2(H) <5.0 mg/L 09/19/2023 4:42 PM CDT DTL Blood (Blood, Venous) 09/19/2023 3:59 PM CDT 09/19/2023 4:22 PM CDT Radha Sauer APRNNSanchez., D.N.P. LAB BLOOD ADD-ON Performing Organization Address City/[facility]/ZIP Co de Phone Number [facility] [address] [place] [address], [facility] DTL [facility] [address] [place] [address] * Lactate, B (09/19/2023 3:59 PM CDT) Lactate, B 0.6 0.5 - 2.2 mmol/L 09/19/2023 4:07 PM CDT [facility] Blood (Blood, Venous) 09/19/2023 3:59 PM CDT 09/19/2023 4:05 PM CDT Radha Sauer APRNNSanchez., D.N.P. LAB BLOOD NON ADD-ON Performing Organization Address City/[facility]/ZIP Co de Phone Number [facility] [address] [place] [address], [facility] STMA [facility] [address] [place] [address] * (ABNORMAL) Basic Metabolic Panel (09/19/2023 3:59 PM CDT) Potassium, P 4.0 3.6 - 5.2 mmol/L 09/19/2023 4:21 PM CDT ST[facility] Sodium, P 130(L) 135 - 145 mmol/L 09/19/2023 4:21 PM CDT [facility] Chloride, P 93(L) 98 - 107 mmol/L 09/19/2023 4:21 PM CDT [facility] Bicarbonate, P 22 22 - 29 mmol/L 09/19/2023 4:21 PM CDT [facility] Anion Gap, P 15 7 - 15 09/19/2023 4:21 PM CDT [facility] BUN (Blood Urea Nitrogen), P 52(H) 6 - 21 mg/dL 09/19/2023 4:21 PM CDT ST[facility] Creatinine 2.29(H) 0.59 - 1.04 mg/dL 09/19/2023 4:21 PM CDT [facility] Estimated GFR (eGFR) 23(L) >=60 mL/min/BSA 09/19/2023 4:21 PM CDT [facility] Comment: Estimated GFR calculated using the 2020 CKD_EPI creatinine equation. Calcium, Total, P 8.8 8.8 - 10.2 mg/dL 09/19/2023 4:21 PM CDT ST[facility] Glucose, P 109 70 - 140 mg/dL 09/19/2023 4:21 PM CDT [facility] Blood (Blood, Venous) 09/19/2023 3:59 PM CDT 09/19/2023 4:05 PM CDT Sakina Anderson APRN, C.N.P., D.N.P. LAB BLOOD ADD-ON [facility] [address] [place] [address], [facility] [address] [place] [address] * (ABNORMAL) CBC with Differential, Blood (09/19/2023 3:59 PM CDT) [facility] Hemoglobin 8.0(L) 11.6 - 15.0 g/dL 09/19/2023 4:14 PM CDT STMA Hematocrit 25.2(L) 35.5 - 44.9 % 09/19/2023 4:14 PM CDT ST[facility] Erythrocytes 2.81(L) 3.92 - 5.13 x10(12)/L 09/19/2023 4:14 PM CDT [facility] MCV 89.7 78.2 - 97.9 fL 09/19/2023 4:14 PM CDT [facility] RBC Distrib Width 16.8(H) 12.2 - 16.1 % 09/19/2023 4:14 PM CDT [facility] Platelet Count 323 157 - 371 x10(9)/L 09/19/2023 4:14 PM CDT [facility] Leukocytes 13.1(H) 3.4 - 9.6 x10(9)/L 09/19/2023 4:14 PM CDT STMA Neutrophils 11.28(H) 1.56 - 6.45 x10(9)/L 09/19/2023 4:14 PM CDT [facility] Lymphocytes 0.67(L) 0.95 - 3.07 x10(9)/L 09/19/2023 4:14 PM CDT STMA Monocytes 0.91(H) 0.26 - 0.81 x10(9)/L 09/19/2023 4:14 PM CDT STMA Eosinophils 0.18 0.03 - 0.48 x10(9)/L 09/19/2023 4:14 PM CDT ST[facility] Basophils 0.03 0.01 - 0.08 x10(9)/L 09/19/2023 4:14 PM CDT [facility] Blood (Blood, Venous) 09/19/2023 3:59 PM CDT 09/19/2023 4:05 PM CDT Sakina Anderson APRN, C.N.P., D.N.P. LAB BLOOD ADD-ON [facility] [address] [place] [address], [facility] STMA [facility] [address] [place] [address] [facility] [address] [place] [address] * (ABNORMAL) Prothrombin Time (PT) (09/19/2023 3:59 PM CDT) [facility] Prothrombin Time, P 14.5(H) 9.4 - 12.5 sec 09/19/2023 4:13 PM CDT STMA INR 1.3 0.9 - 1.1 09/19/2023 4:13 PM CDT STMA Comment: ----ADDITIONAL INFORMATION---- Standard intensity warfarin therapeutic range: 2.0 to 3.0 ?? High intensity warfarin therapeutic range: 2.5 to 3.5 Blood (Blood, Venous) 09/19/2023 3:59 PM CDT 09/19/2023 4:05 PM CDT Radha Sauer APRNNSanchez., D.N.P. LAB BLOOD ADD-ON Performing Organization Address City/[facility] Co de Phone Number [facility] [address] [place] [address] * (ABNORMAL) Troponin T, Baseline, 5th gen (09/19/2023 3:59 PM CDT) Troponin T, Baseline, 5th gen 106(H) <=10 ng/L 09/19/2023 4:22 PM CDT [facility] Comment:Consider acute myoca rdial injury Blood (Blood, Venous) 09/19/2023 3:59 PM CDT 09/19/2023 4:05 PM CDT Radha Sauer APRNN.PMarlys, D.N.P. LAB BLOOD TROPONIN Performing Organization Address [facility] Co de Phone Number [facility] [address] [place] [address], [facility] [address] [place] [address] * ECG 12 Lead (09/19/2023 3:12 PM CDT) Ventricular Rate ECG/Min 55 BPM MUSE AL Interval 162 ms MUSE QRSD Interval 104 ms MUSE QT Interval 488 ms MUSE QTC Interval 466 ms MUSE P Petal 107 degrees MUSE R Petal 81 degrees MUSE T Wave Petal 269 degrees MUSE 09/19/2023 3:12 PM CDT [...] C.N.P., D.N.P. ECG ORDERABLES Performing Organization Address City/[facility]/ZIP Co de Phone Number MUSE NA * Sodium, Random, Urine (09/18/2023 3:59 PM CDT) Sodium, Random, U 15 mmol/L 09/19/2023 10:12 PM CDT DTL Comment: ----REFERENCE VALUE---- Random urine sodium may be interpreted in conjunction with serum sodium, using both values to calculate fractional excretion of sodium. Urine 09/18/2023 3:59 PM CDT 09/19/2023 9:19 PM CDT Rufino Lopez M.D. LAB URINE ORDERABLES Performing Organization Address [facility] Co de Phone Number [facility] [address] [place] [address], [facility] DTL [facility] [address] [place] [address] * Creatinine, Random, Urine (09/18/2023 3:59 PM CDT) Creatinine, Random, U 61 16 - 326 mg/dL 09/19/2023 10:03 PM CDT DTL Urine (Urine, Midstream) 09/18/2023 3:59 PM CDT 09/19/2023 9:19 PM CDT Rufino Lopez M.D. LAB URINE ORDERABLES Performing Organization Address City/[facility]/ZIP Co de Phone Number [facility] [address] [place], [place] [address] [address] [place] [address] * (ABNORMAL) Cystatin C with Estimated GFR (09/18/2023 11:42 AM CDT) eGFR by Cystatin C 14(L) >60 mL/min/BSA 09/19/2023 10:01 PM CDT DTL Comment: Estimated GFR calculated [...] lower with the new assay. Cystatin C 3.43(H) 0.67 - 1.21 mg/L 09/19/2023 10:01 PM CDT DTL Blood (Blood, Venous) 09/18/2023 11:42 AM CDT 09/19/2023 9:25 PM CDT Rufino Lopez M.D. LAB BLOOD ADD-ON [facility] [address] [place] [address], [facility] [address] [place] [address] documented in this encounter Visit Diagnoses Diagnosis Failure Renal Acute (Acute Kidney Injury) (HCC)- Primary Failure Renal Acute (Acute Kidney Injury) (HCC) Effusion Pericardial Acute (HCC) Prolonged QT Interval Pain Chest Effusion Pleural Decline Functional Status [R53.81] Abdominal Aortic Aneurysm Without Rupture Unspecified (HCC) Malnutrition Severe Protein-Calorie (HCC) Immunodeficiency Due To Drugs (HCC) Coronary Artery Disease Without Angina Pectoris Transplant Renal (HCC) Hypertensive Chronic Kidney Disease With Stage 1 Through Stage 4 Chronic Kidney Disease, Or Unspecified Chronic Kidney Disease documented in this encounter Admitting Diagnoses Diagnosis Failure Renal Acute (Acute Kidney Injury) (HCC) documented in this encounter Administered Medications Inactive Administered Medications - up to 3 most recent administrations Medication Order MAR Action Action Date Dose Rate Site albumin human 25 % injection 12.5 g 12.5 g, intravenous, Once, On 09/21/23 at 1645, For 1 dose, If no infusion rate specified: Administer the 25% solution at 100 mL/hr New Bag 09/21/2023 6:50 PM CDT 12.5 g amiodarone tablet 200 mg (PACERONE) 200 mg, oral, Daily, First dose on Sat09/20/23 at 0900 Given 09/24/2023 9:44 AM CDT 200 mg Given 09/23/2023 8:30 AM CDT 200 mg Given 09/22/2023 8:22 AM CDT 200 mg amLODIPine tablet 10 mg (NORVASC) 10 mg, oral, Daily, First dose on Tu09/24/23 at 1615 Given 09/24/2023 4:54 PM CDT 10 mg atorvastatin tablet 80 mg (LIPITOR) 80 mg, oral, Daily at bedtime, First dose on Sat09/19/23 at 2100 Given 09/23/2023 9:01 PM CDT 80 mg Given 09/22/2023 7:57 PM CDT 80 mg Given 09/21/2023 9:34 PM CDT 80 mg bumetanide injection 2 mg (BUMEX) 2 mg, intravenous, Once, On 09/22/23 at 1115, For 1 dose, Adults: Doses less than 3 mg: IV push over 1-2 minutes. Doses 3 mg or greater: Intermittent infusion, max 0.1 mg/min. Peds/Neonates: Doses less than 3 mg over 0.0125 mg/kg/min. Doses 3 mg or greater: Intermittent infusion, max 0.1 mg/min. Given 09/22/2023 11:45 AM CDT 2 mg bumetanide injection 2 mg (BUMEX) 2 mg, intravenous, Once, On 09/23/23 at 1330, For 1 dose, Adults: Doses less than 3 mg: IV push over 1-2 minutes. Doses 3 mg or greater: Intermittent infusion, max 0.1 mg/min. Peds/Neonates: Doses less than 3 mg over 0.0125 mg/kg/min. Doses 3 mg or greater: Intermittent infusion, max 0.1 mg/min. Given 09/23/2023 2:22 PM CDT 2 mg bumetanide tablet 2 mg (BUMEX) 2 mg, oral, 2 times daily, First dose on Sat09/24/23 at 0900 Given 09/24/2023 9:43 AM CDT 2 mg bumetanide tablet 2 mg (BUMEX) 2 mg, oral, Daily, First dose (after last modification) on Sat09/25/23 at 0900 cyanocobalamin 1,000 mcg/mL injection 1,000 mcg (VITAMIN B12) 1,000 mcg, subcutaneous, Daily, First dose on Sat09/24/23 at 0900, For 7 days fentaNYL injection 50 mcg (SUBLIMAZE) 50 mcg, intravenous, Every 1 hour PRN, moderate pain or score 4-6 of 10, severe pain or score 7-10 of 10, Starting on Sat09/19/23 at 1559, For 3 doses Given 09/19/2023 4:10 PM CDT 50 mcg heparin (porcine) injection 5,000 Units 5,000 Units, subcutaneous, Every 12 hours scheduled, First dose on Sat09/19/23 at 2000 Given 09/23/2023 9:01 PM CDT 5,000 Units Left Upper Abdomen Given 09/23/2023 8:30 AM CDT 5,000 Units L eft Lower Abdomen Given 09/22/2023 7:57 PM CDT 5,000 Units L eft Lower Abdomen HYDROmorphone liquid 1 mg (Dilaudid) 1 mg, oral, Every 4 hours PRN, severe pain or score 7-10 of 10, moderate pain or score 4-6 of 10, Starting on Sat09/19/23 at 2006 Given 09/24/2023 1:25 AM CDT 1 mg Given 09/22/2023 8:10 PM CDT 1 mg Given 09/20/2023 7:27 PM CDT 1 mg Lactated Ringer's bolus 1,000 mL 1,000 mL, intravenous, at 500 mL/hr, Administer over 2 Hours, Once, On Sat09/19/23 at 2045, For 1 dose New Bag 09/19/2023 9:56 PM CDT 1,000 mL 500 mL/hr Lactated Ringer's bolus 500 mL 500 mL, intravenous, at 500 mL/hr, Administer over 1 Hours, Once, On Sat09/20/23 at 1330, For 1 dose New Bag 09/20/2023 1:24 PM CDT 500 mL 500 mL/hr Lactated Ringer's bolus 500 mL 500 mL, intravenous, at 50 mL/hr, Administer over 10 Hours, Once, On Sat09/20/23 at 1330, For 1 dose Bolus from Bag 09/20/2023 2:30 PM CDT 500 mL 50 mL/hr Restarted 09/20/2023 2:29 PM CDT 50 mL/hr ittygg-ejcdvyry-rhnvtmx 36,000-114,000-180,[address] capsule 36,000 Units of lipase (CREON) 36,000 Units of lipase, oral, 4 times daily, First dose on Sat09/19/23 at 2100, Do NOT crush or chew. Capsule may be opened and the contents taken without crushing or chewing. Given 09/24/2023 4:54 PM CDT 36,000 U nits of lipase Given 09/24/2023 1:08 PM CDT 36,000 Units of lipase Given 09/24/2023 9:44 AM CDT 36,000 Units of lipase mycophenolate capsule 500 mg (CELLCEPT) 500 mg, oral, 2 times daily - immunosuppression, First dose on Sat09/20/23 at 2000, Swallow whole. Do NOT crush, chew or open capsule., Continuation of idrso-bq-xzcfclgri therapy? Yes Given 09/24/2023 9:44 AM CDT 500 mg Given 09/23/2023 9:01 PM CDT 500 mg Given 09/23/2023 8:30 AM CDT 500 mg NaCl 0.9 % bolus 500 mL 500 mL, intravenous, at 500 mL/hr, Administer over 1 Hours, Once, On Sat09/19/23 at 1914, For 1 dose New Bag 09/19/2023 8:52 PM CDT 500 mL 500 mL/hr ondansetron ODT disintegrating tablet 4 mg (ZOFRAN-ODT) 4 mg, oral, Every 8 hours PRN, nausea, vomiting, Starting on Sat09/19/23 at 2355, When splitting ODT at bedside, handle with gloves and a pill splitter to prevent moisture contact. pantoprazole DR tablet 40 mg (PROTONIX) 40 mg, oral, Daily before morning meal, First dose on Sat09/20/23 at 0700, For 70 days, Swallow whole. Do NOT crush, chew, or split tablet. Given 09/24/2023 6:48 AM CDT 40 mg Given 09/23/2023 6:24 AM CDT 40 mg Given 09/22/2023 4:41 AM CDT 40 mg predniSONE tablet 10 mg (DELTASONE) 10 mg, oral, Daily, First dose (after last modification) on Sat09/21/23 at 0900 Given 09/24/2023 9:44 AM CDT 10 mg Given 09/23/2023 8:30 AM CDT 10 mg Given 09/22/2023 8:22 AM CDT 10 mg predniSONE tablet 5 mg (DELTASONE) 5 mg, oral, Daily, First dose on Sat09/20/23 at 0900 Given 09/20/2023 8:24 AM CDT 5 mg predniSONE tablet 5 mg (DELTASONE) 5 mg, oral, Daily, First dose (after last modification) on Sat09/25/23 at 0900 prochlorperazine injection 5 mg (COMPAZINE) 5 mg, intravenous, Every 6 hours PRN, nausea, vomiting, Starting on Idania 09/19/23 at 2358 Given 09/22/2023 9:55 AM CDT 5 mg Given 09/20/2023 6:40 PM CDT 5 mg Given 09/20/2023 8:21 AM CDT 5 mg selenium tablet 150 mcg 150 mcg, oral, Daily, First dose on Sat09/20/23 at 0900, For 70 days Given 09/21/2023 8:56 AM CDT 150 mcg Given 09/20/2023 8:24 AM CDT 150 mcg sennosides-docusate sodium 8.6-50 mg per tablet 1 tablet (SENOKOT-S) 1 tablet, oral, 2 times daily, First dose on Idania 09/19/23 at 2100, Do not give if patient has diarrhea., On hold since Sat09/21/2023 at 1148 until manually unheld Given 09/21/2023 8:56 AM CDT 1 tablet sodium chloride 3 % bolus 50 mL (HYPERTONIC) 50 mL, intravenous, at 300 mL/hr, Administer over 10 Minutes, Once, On [facility] 09/21/23 at 1645, For 1 dose New Bag 09/21/2023 6:36 PM CDT 50 mL 300 mL/hr tacrolimus capsule 1 mg (PROGRAF) 1 mg, oral, 2 times daily, First dose on Sat09/19/23 at 2100 Given 09/24/2023 9:44 AM CDT 1 mg Given 09/23/2023 9:01 PM CDT 1 mg Given 09/23/2023 8:30 AM CDT 1 mg vancomycin capsule 125 mg (VANCOCIN) 125 mg, oral, 4 times daily, First dose on Sat09/21/23 at 2300, For 40 doses, Drug Monitoring Program: Pharmacist to adjust medication dosing based on indication and drug clearance factors., Indications: C. difficile infection Given 09/24/2023 4:54 PM CDT 125 mg Given 09/24/2023 1:08 PM CDT 125 mg Given 09/24/2023 9:43 AM CDT 125 mg zinc sulfate capsule 220 mg (ZINCATE) 220 mg, oral, 2 times daily with meals, First dose on Sat09/20/23 at 0800, For 10 days, Doses listed in zinc sulfate. Each 220 mg of zinc sulfate contains 50 mg of elemental zinc. Given 09/24/2023 4:54 PM CDT 220 mg Given 09/24/2023 9:44 AM CDT 220 mg Given 09/23/2023 5:01 PM CDT 220 mg documented in this encounter Active and Recently Administered Medications Times are shown in CDT. Scheduled Medication Order 09/22/2023 09/23/2023 09/24/2023 amiodarone tablet 200 mg (PACERONE) 200 mg, oral, Daily, First dose on Sat09/20/23 at 0900 0822 (Given - Provider: Desi Alvarez R.N.) 0830 (Given - Provider: Desi Alvarez R.N.) 0944 (Given - Provider: Laura Cheung RMarlysNMarlys) amLODIPine tablet 10 mg (NORVASC) 10 mg, oral, Daily, First dose on Sat09/24/23 at 1615 1654 (Given - Provider: Casie Valdez REdison) atorvastatin tablet 80 mg (LIPITOR) 80 mg, oral, Daily at bedtime, First dose on Sat09/19/23 at 2100 1957 (Given - Provider: Carolyn Ruiz, R.N.) 2100 (Given - Provider: Naya Gonzalez R.N.) bumetanide injection 2 mg (BUMEX) (COMPLETED) 2 mg, intravenous, Once, On Sat09/22/23 at 1115, For 1 dose, Adults: Doses less than 3 mg: IV push over 1-2 minutes. Doses 3 mg or greater: Intermittent infusion, max 0.1 mg/min. Peds/Neonates: Doses less than 3 mg over 0.0125 mg/kg/min. Doses 3 mg or greater: Intermittent infusion, max 0.1 mg/min. 1130 (Not Given - Provider: Desi Alvarez R.N. - Reason: Other - Comment: IV out will give once new IV is placed)1145 (Given - Provider: Desi Alvarez R.N.) bumetanide injection 2 mg (BUMEX) (COMPLETED) 2 mg, intravenous, Once, On Sat09/23/23 at 1330, For 1 dose, Adults: Doses less than 3 mg: IV push over 1-2 minutes. Doses 3 mg or greater: Intermittent infusion, max 0.1 mg/min. Peds/Neonates: Doses less than 3 mg over 0.0125 mg/kg/min. Doses 3 mg or greater: Intermittent infusion, max 0.1 mg/min. 1422 (Given - Provider: Desi Alvarez R.N.) bumetanide tablet 2 mg (BUMEX) (CANCELED) 2 mg, oral, 2 times daily, First dose on Sat09/24/23 at 0900 0943 (Given - Provider: Laura Cheung R.N.) bumetanide tablet 2 mg (BUMEX) 2 mg, oral, Daily, First dose (after last modification) on Sat09/25/23 at 0900 cyanocobalamin 1,000 mcg/mL injection 1,000 mcg (VITAMIN B12) 1,000 mcg, subcutaneous, Daily, First dose on Sat09/24/23 at 0900, For 7 days 0943 (Not Given - Provider: Laura Cheung R.N. - Reason: Patient/family refused) heparin (porcine) injection 5,000 Units 5,000 Units, subcutaneous, Every 12 hours scheduled, First dose on Idania 09/19/23 at 2000 0822 (Given - Provider: Desi Alvarez R.N.)1957 (Given - Provider: Rhoda RuizSMarlysNMarlys, R.N.) 0830 (Given - Provider: Mady Vasquez.N.)2101 (Given - Provider: Naya Gonzalez R.N.) 0951 (Not Given - Provider: Laura Cheung R.N. - Reason: Patient/family refused) kuuroj-mahbcsuv-zubvepo 36,000-114,000-180,[address] capsule 36,000 Units of lipase (CREON) 36,000 Units of lipase, oral, 4 times daily, First dose on Idania 09/19/23 at 2100, Do NOT crush or chew. Capsule may be opened and the contents taken without crushing or chewing. 0822 (Given - Provider: Desi Alvarez R.N.)1130 (Given - Provider: Desi Alvarez R.N.)1606 (Given - Provider: Desi Alvarez R.N.)1957 (Given - Provider: Rhoda RuizS.NMarlys, R.N.) 0830 (Given - Provider: Desi Alvarez R.N.)1207 (Given - Provider: Desi Alvarez R.N.)1701 (Given - Provider: Desi Alvarez R.N.)2101 (Given - Provider: Naya Gonzalez, R.N.) 0944 (Given - Provider: Laura Cheung R.N.)1308 (Given - Provider: Laura Cheung R.N.)1654 (Given - Provider: Casie Valdez R.N.) mycophenolate capsule 500 mg (CELLCEPT) 500 mg, oral, 2 times daily - immunosuppression, First dose on Sat09/20/23 at 2000, Swallow whole. Do NOT crush, chew or open capsule., Continuation of idlrx-sz-ttobsjerd therapy? Yes 0822 (Given - Provider: Desi Alvarez R.N.)1956 (Given - Provider: Carolyn Ruiz, R.N.) 08 (Given - Provider: Desi Alvarez R.N.)2100 (Given - Provider: Naya Gonzalez R.N.) 0944 (Given - Provider: Laura Cheung R.N.) pantoprazole DR tablet 40 mg (PROTONIX) 40 mg, oral, Daily before morning meal, First dose on Sat09/20/23 at 0700, For 70 days, Swallow whole. Do NOT crush, chew, or split tablet. 0441 (Given - Provider: Beronica Pope R.N.) 0624 (Given - Provider: Ivana Reyes M.S.NMarlys, R.N.) 0648 (Given - Provider: Wendy McneilNMarlys) predniSONE tablet 10 mg (DELTASONE) (CANCELED) 10 mg, oral, Daily, First dose (after last modification) on Sat09/21/23 at 0900 0822 (Given - Provider: Desi Alvarez R.N.) 08 (Given - Provider: Desi Alvarez R.N.) 0944 (Given - Provider: Wendy PerdueNMarlys) predniSONE tablet 5 mg (DELTASONE) 5 mg, oral, Daily, First dose (after last modification) on Sat09/25/23 at 0900 tacrolimus capsule 1 mg (PROGRAF) 1 mg, oral, 2 times daily, First dose on Idania 09/19/23 at 2100 0822 (Not Given - Provider: Desi Alvarez R.N. - Reason: Other - Comment: waiting for trough result)1022 (Given - Provider: Desi Alvarez R.N.)1956 (Given - Provider: Rhoda RuizSMarlysNMarlys, R.N.) 0830 (Given - Provider: Desi Alvarez R.N. - Comment: Please hold dose until after labs are drawn)2100 (Given - Provider: Naya Gonzalez R.N.) 0944 (Given - Provider: Temidayo O Omoyele, R.N.) vancomycin capsule 125 mg (VANCOCIN) 125 mg, oral, 4 times daily, First dose on Sat09/21/23 at 2300, For 40 doses, Drug Monitoring Program: Pharmacist to adjust medication dosing based on indication and drug clearance factors., Indications: C. difficile infection 0822 (Given - Provider: Desi Alvarez R.N.)1130 (Given - Provider: Wendy VasquezN.)1606 (Given - Provider: Desi Alvarez RMarlysN.)1957 (Given - Provider: Carolyn Ruiz, R.N.) 0830 (Given - Provider: Desi Alvarez RMarlysN.)1207 (Given - Provider: Desi Alvarez R.N.)1701 (Given - Provider: Mady Vasquez.N.)2101 (Given - Provider: Wendy McneilNMarlys) 0943 (Given - Provider: Laura Cheung RMarlysN.)1308 (Given - Provider: Laura Cheung RMarlysN.)1654 (Given - Provider: Casie Valdez RMarlysN.) zinc sulfate capsule 220 mg (ZINCATE) 220 mg, oral, 2 times daily with meals, First dose on Sat09/20/23 at 0800, For 10 days, Doses listed in zinc sulfate. Each 220 mg of zinc sulfate contains 50 mg of elemental zinc. 0822 (Given - Provider: Desi Alvarez R.N.)1606 (Given - Provider: Desi Alvarez RMarlysNMarlys) 0830 (Given - Provider: Desi Alvarez RMarlysNMarlys)1701 (Given - Provider: Desi Alvarez RMarlysNMarlys) 0944 (Given - Provider: Laura Cheung RMarlysNMarlys)1654 (Given - Provider: Casie aVldez RMarlysNMarlys) PRN Medication Order 09/22/2023 09/23/2023 09/24/2023 HYDROmorphone liquid 1 mg (Dilaudid) 1 mg, oral, Every 4 hours PRN, severe pain or score 7-10 of 10, moderate pain or score 4-6 of 10, Starting on Idania 09/19/23 at 2006 2009 (Given - Provider: Carolyn Ruiz, R.N.) 0125 (Given - Provider: Naya Gonzalez RMarlysNMarlys)1308 (Not Given - Provider: Laura Cheung R.N. - Reason: See Provider Order) ondansetron ODT disintegrating tablet 4 mg (ZOFRAN-ODT) 4 mg, oral, Every 8 hours PRN, nausea, vomiting, Starting on Idania 09/19/23 at 2355, When splitting ODT at bedside, handle with gloves and a pill splitter to prevent moisture contact. prochlorperazine injection 5 mg (COMPAZINE) 5 mg, intravenous, Every 6 hours PRN, nausea, vomiting, Starting on Idania 09/19/23 at 2358 0955 (Given - Provider: Desi Alvarez RMarlysNMarlys) documented in this encounter Additional Health Concerns Infection Onset Date Last Indicated Resolved Time Protective Environment 09/03/2022 09/03/2022 C. difficile 09/21/2023 09/21/2023 10/19/2023 5:38 AM CDT Assessment Noted Time PHQ-9 Depression Total Score: 0 07/11/19 17 12:26 PM RHYTHMIC GYMNASTICS COACH documented as of this encounter Care Teams Clearance Cutter Relationship Specialty Start Date End Date Elsewhere, Pcp PCP - General Internal Medicine 05/08/23 [facility] Laboratory Medicine 04/07/20 documented as of this encounter
--- OUTSIDE RECORDS SUMMARY | 2023-11-23 13:22 | XMS_ITS | Encounter Summary ---
Author Organization [facility] Address [address] [place] [address] Care Team Providers Care Linen Attendant Name Role Phone Elsewhere, Pcp Primary Care Provider Unavailabl e Encounter Details Date Type Department Care Team (Late st Contact Info) Description 09/22/2023 12:55 PM CDT Ancillary Procedure Department of Pulmonary and CC Medicine Social History Tobacco Use Types Packs/Day Years Used Date Smoking Tobacco: Former Cigarettes Smokeless Tobacco: Never Alcohol Use Standard Drinks/Week Comments Not Currently 0 (1 standard drink = 0.6 oz pur e alcohol) [facility] Utilities Answer Date Recorded In the past 12 months has e electric, gas, oil, or water company [...] the money to buy more. Never true 05/16/20 24 Within the past 12 months, t [...] your living situation today? I have a [facility] place to live 09/19/2023 Sex and Gender Information Value Date Recorded Sex Assigned at Female 05/14/2018 2:49 PM LABORATORY ANIMAL CARE VETERINARIAN Gender Identity Female 05/14/2018 2:49 PM LABORATORY ANIMAL CARE VETERINARIAN Sexual Orientation Straight 05/14/2018 2: 49 PM LABORATORY ANIMAL CARE VETERINARIAN documented as of this encounter Plan of Treatment Upcoming Encounters Date Type Department Care Team (Latest Contact Info) Description 01/03/2024 2:15 PM CDT Clinical Communication Virtual Review in [place], [place] [address] [place] [phone] 01/07/2024 3:00 PM CDT Office Visit Division of Gastroenterology in [place], [place] [address] [place] [phone] Hank Garner Jr., M.D. [address] [place] [phone] documented as of this encounter Procedures Procedure Name Priority Date/Time Associated Diagnosis Comments PULMONARY AND CC MEDICINE IMAGE EXAM Routine 09/22/2023 12:55 PM CDT documented in this encounter Results * Non-Radiology Image-Pulmonary And CC Medicine Image Exam (09/22/2023 12:55 PM CDT) 09/22/2023 12:5 4 PM CDT Narrative [facility] - 09/22/2023 1:30 PM CDT This order has been created and auto-finalized to support the import of images acquired without order. The clinical documentation to support these images can be found on the encounter that produced images. Provider Not In System IMG NON RAD IMAGI NG PROCEDURES [facility] NA documented in this encounter Visit Diagnoses Not on filedocumented in this encounter Additional Health Concerns Infection Onset Date Last Indicated Resolved Time Protective Environment 09/03/2022 09/03/2022 C. difficile 09/21/2023 09/21/2023 10/19/2023 5:38 AM CDT Assessment Noted Time PHQ-9 Depression Total Score: 0 07/11/19 17 12:26 PM LABORATORY ANIMAL CARE VETERINARIAN documented as of this encounter Care Teams Linen Attendant Relationship Specialty Start Date End Date Elsewhere, Pcp PCP - General Internal Medicine 05/08/23 [facility] Laboratory Medicine 04/07/20 documented as of this encounter
--- OUTSIDE RECORDS SUMMARY | 2023-11-23 13:22 | XMS_ITS | Encounter Summary ---
Author Organization [facility] Address [address] [place] [phone] Care Team Providers Care Banking Services Officer Name Role Phone Elsewhere, Pcp Primary Care Provider Unavailabl e Reason for Visit * Reason Onset Date Comments PandaDoc Form 09/16/2023 [employer] Encounter Details Date Type Department Care Team (Latest Contact Info) Description 09/16/2023 Clinical Communication Division of Community Internal Medicine, [facility] in [place], [place] [address] [place] [phone] Jt Melchor M.D. [address] [place] [phone] [employer]Doc Form ([employer]) Social History Tobacco Use Types Packs/Day Years Used Date Smoking Tobacco: Former Cigarettes Smokeless Tobacco: Never Alcohol Use Standard Drinks/Week Comments Not Currently 0 (1 standard drink = 0.6 oz pur e alcohol) [facility] Utilities Answer Date Recorded In the past 12 months has [employer], gas, oil, or water [employer] threatened to shut off services in your home? No 08/20/2023 Humiliation, Afraid, Rape, and Kick questionnair e Answer Date Recorded Within the last year, have y ou been afraid of your partner or ex-partner? No 08/20/2023 Within the last year, have y ou been humiliated or emotionally abused in other ways by your partner or ex-partner? No Within the last year, have y ou been kicked, hit, slapped, or otherwise physically hurt by your partner or ex-partner? No 08/20/2023 Within the last year, have y ou been raped or forced to have any kind of sexual activity by your partner or ex-partner? No 08/20/2023 Hunger Vital Sign Answer Date Recorded Within the past 12 months, y ou worried that your food would run out before you got the money to buy more. Never true 08/20/19 24 Within the past 12 months, t he food you bought just didn't last and you didn't have money to get more. Never true 08/20/2023 PRAPARE - Transportation Answer Date Re corded In the past 12 months, has l ack of transportation kept you from medical appointments or from getting medications? No 08/04 In the past 12 months, has l ack of transportation kept you from meetings, work, or from getting things needed for daily living? No 08/20/2023 Nutrition Answer Date Recorded Nutrition: EVOO Fat Source 13 11/30 Nutrition: Servings of Fruits/Vegetables per Day Not on file 12/01/2019 Dental Answer Date Recorded Dental: Regular Dentist Unknown 06/24/19 21 Housing Stability Answer Date Recorded What is your living situation today? I have a [facility] place to live 08/20/2023 Sex and Gender Information Value Date Recorded Sex Assigned at Female 05/14/2018 2:49 PM STAFFING ASSOCIATE Gender Identity Female 05/14/2018 2:49 PM STAFFING ASSOCIATE Sexual Orientation Straight 05/14/2018 2: 49 PM STAFFING ASSOCIATE documented as of this encounter Plan of Treatment Upcoming Encounters Date Type Department Care Team (Latest Contact Info) Description 01/03/2024 2:15 PM CDT Clinical Communication Virtual Review in [place], [place] [address] [place] [phone] 01/07/2024 3:00 PM CDT Office Visit Division of Gastroenterology in [place], [place] [address] [place] [phone] Hank Ganrer Jr., M.D. [address] [place] [phone] documented as of this encounter Visit Diagnoses Not on filedocumented in this encounter Additional Health Concerns Infection Onset Date Last Indicated Resolved Time Protective Environment 09/03/2022 09/03/2022 Assessment Noted Time PHQ-9 Depression Total Score: 0 07/11/19 17 12:26 PM STAFFING ASSOCIATE documented as of this encounter Care Teams Banking Services Officer Relationship Specialty Start Date End Date Elsewhere, Pcp PCP - General Internal Medicine 05/08/23 [facility] Laboratory Medicine 04/07/20 documented as of this encounter
--- OUTSIDE RECORDS SUMMARY | 2023-11-23 13:22 | XMS_ITS | Encounter Summary ---
Author Organization [facility] Address [address] [place] [phone] Care Team Providers Care Patient Advocate Name Role Phone Elsewhere, Pcp Primary Care Provider Unavailabl e Reason for Visit * Reason Comments Med Refill Encounter Details Date Type Department Care Team (Late st Contact Info) Description 09/13/2023 Refill Division of Community Internal Medicine, [facility] in [place], [place] [address] [place] [phone] Jt Melchor M.D. [address] [place] [phone] Med Refill Social History Tobacco Use Types Packs/Day Years Used Date Smoking Tobacco: Former Cigarettes Smokeless Tobacco: Never Alcohol Use Standard Drinks/Week Comments Not Currently 0 (1 standard drink = 0.6 oz pur e alcohol) [facility] Utilities Answer Date Recorded In the past 12 months has [facility] [employer], gas, oil, or water [employer] threatened to shut off services in your [...] your living situation today? I have a [facility] place to live 08/20/2023 Sex and Gender Information Value Date Recorded Sex Assigned at Female 05/14/2018 2:49 PM PMO MANAGER Gender Identity Female 05/14/2018 2:49 PM PMO MANAGER Sexual Orientation Straight 05/14/2018 2: 49 PM PMO MANAGER documented as of this encounter Miscellaneous Notes * Telephone Encounter - Dina Yeung - 09/13/2023 11:26 AM CDT PCP [facility] documented in this encounter Plan of Treatment Upcoming Encounters Date Type Department Care Team (Latest Contact Info) Description 01/03/2024 2:15 PM CDT Clinical Communication Virtual Review in [place], [place] [address] [place] [phone] 01/07/2024 3:00 PM CDT Office Visit Division of Gastroenterology in [place], [place] [address] [place] [phone] Hank Garner Jr., M.D. [address] [place] [phone] documented as of this encounter Visit Diagnoses Not on filedocumented in this encounter Additional Health Concerns Infection Onset Date Last Indicated Resolved Time Protective Environment 09/03/2022 09/03/2022 Assessment Noted Time PHQ-9 Depression Total Score: 0 07/11/19 17 12:26 PM PMO MANAGER documented as of this encounter Care Teams Patient Advocate Relationship Specialty Start Date End Date Elsewhere, Pcp PCP - General Internal Medicine 05/08/23 [facility] Laboratory Medicine 04/07/20 documented as of this encounter
--- OUTSIDE RECORDS SUMMARY | 2023-11-23 13:22 | XMS_ITS | Encounter Summary ---
Author Organization [facility] Address [address] [place] [address] Care Team Providers Care Color Receiver Name Role Phone Elsewhere, Pcp Primary Care Provider Unavailabl e Encounter Details Date Type Department Care Team (Late st Contact Info) Description 09/13/2023 Orders Only Department of Radiology, [facility], in [place], [place] [address] [place] [phone] Margaret Mccall P.A.-C., M.S. [address] [place] [phone] Cholecystitis (Primary Dx) Social History Tobacco Use Types Packs/Day Years Used Date Smoking Tobacco: Former Cigarettes Smokeless Tobacco: Never Alcohol Use Standard Drinks/Week Comments Not Currently 0 (1 standard drink = 0.6 oz pur e alcohol) [facility] Utilities Answer Date Recorded In the past 12 months has [facility] [place], gas, oil, or water [employer] threatened to shut off services in your [...] your living situation today? I have a [facility] place to live 09/19/2023 Sex and Gender Information Value Date Recorded Sex Assigned at Female 05/14/2018 2:49 PM SHAREHOLDER Gender Identity Female 05/14/2018 2:49 PM SHAREHOLDER Sexual Orientation Straight 05/14/2018 2: 49 PM SHAREHOLDER documented as of this encounter Plan of Treatment Upcoming Encounters Date Type Department Care Team (Latest Contact Info) Description 01/03/2024 2:15 PM CDT Clinical Communication Virtual Review in [place], [place] [address] [place] [phone] 01/07/2024 3:00 PM CDT Office Visit Division of Gastroenterology in [place], [place] [address] [place] [phone] Hank Garner Jr., M.D. [address] [place] [phone] documented as of this encounter Visit Diagnoses Diagnosis Cholecystitis- Primary documented in this encounter Additional Health Concerns Infection Onset Date Last Indicated Resolved Time Protective Environment 09/03/2022 09/03/2022 C. difficile 09/21/2023 09/21/2023 10/19/2023 5:38 AM CDT Assessment Noted Time PHQ-9 Depression Total Score: 0 07/11/19 17 12:26 PM SHAREHOLDER documented as of this encounter Care Teams Color Receiver Relationship Specialty Start Date End Date Elsewhere, Pcp PCP - General Internal Medicine 05/08/23 [facility] Laboratory Medicine 04/07/20 documented as of this encounter
--- OUTSIDE RECORDS SUMMARY | 2023-11-23 13:22 | XMS_ITS | Encounter Summary ---
Author Organization [facility] Address [address] [place] [address] Care Team Providers Care Plating Operator Name Role Phone Elsewhere, Pcp Primary Care Provider Unavailabl e Reason for Visit * Reason Comments Abdominal Pain * Auth/Cert (Routine) Specialty Diagnoses / Procedures Referred By Contac t Referred To Contact Diagnoses Effusion Pericardial Acute (HCC) Failure Renal Acute (Acute Kidney Injury) (HCC) Pain Chest Prolonged QT Interval Procedures ADMIT TO INPATIENT Referral ID Status Reason Start Date Expiration Date Visits Re quested Visits Authorized [id number] 1 1 Encounter Details Date Type Department Care Team (Late st Contact Info) Description 09/18/2023 10:25 AM CDT - 09/18/2023 7:15 PM CDT Emergency [facility] Emergency Department [address] [place] [phone] Spring Mccormack M.D. [address] [place] [address] VISHAL Amin [phone] Insufficiency Renal (Primary Dx); Prolonged QT Interval; Abdominal Pain; Failure To Thrive Adult Discharge Disposition: Home or Self Care Social History Tobacco Use Types Packs/Day Years Used Date Smoking Tobacco: Former Cigarettes Smokeless Tobacco: Never Alcohol Use Standard Drinks/Week Comments Not Currently 0 (1 standard drink = 0.6 oz pur e alcohol) [facility] Utilities Answer Date Recorded In the [...] your living situation today? 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 Sexual Orientation Straight 05/14/2018 2: 49 PM SHIPFITTER HELPER documented as of this encounter Last Filed Vital Signs Vital Sign Reading Time Taken Comments Blood Pressure 150/60 09/18/2023 6:15 PM CDT Pulse 54 09/18/2023 6:15 PM CDT Temperature 36.6 ??C (97.9 ??F) 09/18/2023 10:41 AM C DT Respiratory Rate 16 09/18/2023 6:15 PM CDT Oxygen Saturation 97% 09/18/2023 6:15 PM CDT Inhaled Oxygen Concentration - - Weight 40 kg (88 lb 2.9 oz) 09/18/2023 10:28 AM CDT Height - - Body Mass Index 14.8 09/09/2023 9:32 AM CDT documented in this encounter Discharge Instructions * Discharge Instructions* Matt Deal M.D. - 09/18/2023 6:44 PM CDT Thank you for coming to the [facility]. While we recommended that you come into the hospital you were clear and consistent in your communication that you wanted to go home. We recommend you return to the hospital as soon as possible for further management of your conditions, as thesecan be life threatening. documented in this encounter Medications at Time of Discharge Medication Sig Dispensed Refills Start Date End Date mycophenolate (CELLCEPT) 250 mg capsuleIndications:Tra nsplant Renal (HCC),Immunodeficiency (HCC),Medication Therapy Fci Not Anticoagulant Take 2 capsules (500 mg total) by mouth 2 (two) times a day. Do not break, cut, or open capsules. 360 capsule 3 09/06/2023 09/05/2024 predniSONE (DELTASONE) 5 mg tabletIndications:Salter splant Renal [...] Apply to coccyx. 30 g 2 07/17/2023 DME OxygenIndications:Acut e Respiratory Failure With Hypoxia (HCC) DME Order - for details see Order Report 1 each 08/30/2023 eiyfzm-zruwjzlh-zpxftj e (CREON) 36,000-114,000-180,[address] capsule Take 36,000 Units of lipase by mouth 4 (four) times a day. elhuoxgwslvd-fltm-GM-C a-minerals (THERAPEUTIC-M) 400 mcg (folic acid) per [...] a day. 900 mL 3 08/30/2023 08/29/2024 zinc sulfate (ZINCATE) 220 (50 mg zinc) capsule Take 1 capsule (220 mg total) by mouth 2 (two) times a day with meals. 60 capsule 08/30/2023 09/29/2023 aspirin 81 mg chewable tablet Chew 1 tablet (81 mg total) daily. 08/30/2023 09/19/2023 bumetanide (BUMEX) 2 mg tablet Take 2 tablets (4 mg total) by mouth 2 (two) times a day. 120 tablet 08/30/2023 09/24/2023 diphenoxylate-atropine (LOMOTIL) 2.5-0.025 mg/5 mL liquid Take 10 mL by mouth 4 (four) times a day as needed for diarrhea. 08/30/2023 09/24/2023 pantoprazole (PROTONIX) 40 mg EC tablet Take 1 tablet (40 mg total) by mouth 2 (two) times a day before breakfast and dinner. 60 tablet 2 08/30/2023 09/24/2023 sertraline (ZOLOFT) 25 mg tablet Take 1 tablet (25 mg total) by mouth daily. 90 tablet 3 07/16/2023 09/19/2023 documented as of this encounter ED Notes * Spring Mccormack M.D. - 09/18/2023 11:15 AM CDT CHIEF COMPLAINT/REASON FOR VISIT Abdominal Pain ASSESSMENT / PLAN Jacqueline Galvan is a 68 y.o. female who presents to the ED for evaluation of abdominal pain. Per chart review, patient's past medical history is significant for admission 08/19- for acutecholecystitis on HIDA scan s/p perc bea tube 08/22/23 as well as chronic mesenteric ischemia, end-stage renal disease status post left renal transplant x 2 (2006, 2016; currently on triple immunosuppression therapy with tacrolimus, CellCept, and prednisone 5 mg), CAD s/p PCI (2005), abdominal aortic aneurysm, osteoporosis, hypertension, hyperlipidemia, and chronic hyponatremia. Patient presents well appearing, afebrile, bradycardic, and otherwise hemodynamically normal. Reports progressive epigastric/bea tube pain for the last 2-3 days with now normalized clear bea tubeoutput without blood. Associated with generalized weakness and weight loss. Exam pertinent for cache ctic, abdomen S/ND, mild pain to palpation of RUQ / bea tube site without Isaac's, bea tube with clear output, g tube in place without pain to palpation of surrounding tissues and no surroundingerythema or discharge. History and exam concerning for intraabdominal infection vs bea tube malfun ction vs pancreatitis or ascending cholangitis. Considered acute on chronic mesenteric ischemia, will obtain lactate, but given progressive nature and exam, do not feel CTA is necessary. Not consistent with referred pain from pneumonia or PE given reproduction with abdominal palpitation, but will obtain CXR and closely monitor for any hypoxia, tachycardia or change in symptoms. Considered, but less likely given presentation, of small bowel obstruction, symptomatic cholelithiasis, urolithiasis, cystitis, pyelonephritis, renal infarct, AAA, and gastroenteritis. No pelvic pain concerning for pelvic inflammatory disease, ectopic , ovarian cysts, or ovarian torsion. Do not feel this is an angina equivalent given the focality. Provided fentanyl for pain control. I interpreted the patient's EKG: sinus bradycardia with QTc 492, with anterolateral changes similarto previous 08/26/23. I see no overt evidence of emergent pathology including but not limited to STEMI. ED Course as of 09/18/23 1633 SatSeptember 18, 2023 1159 ECG 12 Lead IMPRESSION: Sinus bradycardia Moderate voltage criteria for LVH, may be normal variant T wave abnormality, consider anterolateral ischemia Prolonged QT When compared with ECG of 26-Aug-2023 07:18, QT has lengthened Reviewed by ANA Barboza 1206 Lactate: 0.6 Reassuring, not consistent with acute mesenteric ischemia. 1209 Hemoglobin(!): 8.4 Improved from 7.8. 1209 Leukocytes(!): 11.3 Similar from 12 days prior. 1251 Creatinine(!): 1.94 Increasing over the last 2 weeks. 1400 Troponin T, Baseline, 5th gen(!): 92 Previously 91, trend ordered. 1440 DX Chest AP or PA and Lateral 2 Views IMPRESSION: Since 08/24/2023, decreased size of the now trace left pleural effusion with associated left basilaratelectasis. Resolution of the right apical pneumothorax. Remainder is not significantly changed. Trace right pleural effusion. Biapical scarring. Enlarged cardiac silhouette, likely a combination of cardiomegaly and pericardial effusion which was better seen on CT 08/28/2023. Vascular calcifications. Coronary artery stents. Demineralization. Degenerative changes of the skeleton. 1440 CT Abdomen Pelvis with IV Contrast IMPRESSION: 1. Subhepatic cholecystostomy tube in expected [...] exclude the possibility of deep vein thrombosis. POCUS with minimal effusion. History not consistent for pericarditis, will defer to inpatient team for cardiology consultation as needed. 1529 US Lower Extremity Veins Left IMPRESSION: 1. Negative for acute DVT. 2. Incidentally noted extensive calcified arterial atheromatous disease with occlusion or near occlusion of the left SFA. 1550 MOD requests awaiting 6 hour troponin prior to medicine admission to ensure patient should notbe admitted to cardiology. Final Diagnoses: as of 09/18/23 1633 Prolonged QT Interval Abdominal Pain Failure To Thrive Adult Insufficiency Renal I have personally seen and examined this patient. I have fully participated in the care of this patient. I have reviewed all clinical information including history, physical exam, orders, and plan. Iagree with the note of the resident. I have reviewed and agree with the resident's note addendum. Spring Mccormack M.D. 09/18/23 1635 Spring Mccormack M.D. 09/19/23 0933 * John Gustafson M.D. - 09/18/2023 10:38 AM CDT EMERGENCY DEPARTMENT NOTE CHIEF COMPLAINT/REASON FOR VISIT Abdominal Pain HISTORY OF PRESENT ILLNESS The patient is a 68 y.o. female with a complex medical history including coronary artery disease, mesenteric artery disease, abdominal aortic aneurysm, kidney transplant (2017), chronic malnutrition who presents with abdominal pain. Patient was noted to have a recent hospitalization for cholecystitis for which she underwent medical management due to poor surgical candidacy. She reports 2 days of non migratory epigastric pain. She denies radiation into the back or the lower abdomen. Yesterday she had an episode of vomiting. Most recent bowel movement was yesterday, and she is unsure she is passed gas since that time. Her reports that drainage from the cholecystostomy tube was previously dark and red tinged, now it is more green clear and containing some sediment but this has not changed with the present illness. OBJECTIVE DATA Initial Vitals Temperature 09/18/23 1041 36.6 ??C Pulse Rate 09/18/23 1045 (!) 53 Heart Rate 09/18/23 1045 (!) 53 Resp Rate 09/18/23 1045 18 Blood Pressure 09/18/23 1045 120/59 SpO2 09/18/23 1045 95 % Pain Score 09/18/23 1038 10 - Worst possible pain Nondistressed, attentive, conversational. She is chronically ill and cachectic appearing. Symmetricfacial expression. Heart tones normal. Respirations unlabored. Abdomen soft and diffusely tender with moderate palpation, no focal epigastric tenderness, no peritonitis. PEG tube insertion site is clean and dry. Right flank cholecystostomy insertion site is clean and dry, light green output with scant sediment. Mucous membranes dehydrated. Extremities well perfused, skin warm and dry. ASSESSMENT/PLAN The patient is a 68 y.o. female with a complex medical history including chronic malnutrition from mesenteric arterial disease, who is partially PEG tube dependent, who recently underwent medical management of acute cholecystitis and presents with 2 days of epigastric abdominal pain and vomiting. The patient's vital signs are unremarkable. On exam she is chronically ill-appearing with djpg-te-vlhzhedl diffuse abdominal tenderness and no peritonitis. Differential consideration includes complication of cholecystostomy tube, liver or gallbladder abscess, other intra-abdominal infection, complication of percutaneous gastrostomy tube. Patient has multiple chronic comorbidities contributing to failure to thrive. Less consistent with graft rejection or complication. Laboratory studies show an a slight increase in the patient's creatinine, although unclear exactly where her baseline kidney function is. Suspect this is in the setting of poor PO intake due to acuteon chronic pain. Obtaining antirejection levels to consider subtherapeutic levels. CT scan showed normal positioning of cholecystostomy tube, no other acute abdominal pathology. Question of a right femoral vein DVT which was further evaluated with an ultrasound that does not identify any acute blood clots. This finding on CT is consistent with an artifact in discussion with Radiology. Also considered the possibility of pericarditis although the patient does not have symptoms typical of this including that her pain is exacerbated with movement but not positional and does not occur at rest, there is no significant pericardial effusion on bedside ultrasound. At the conclusion of my shift, we are awaiting a repeat troponin and discussion with the patient about whether she would like to be admi tted versus discharge with close follow-up of her creatinine. ED Course as of 09/18/231653September 18, 2023 1144 ECG 12 Lead My interpretation is sinus bradycardia with diffuse T-wave inversions that are largely unchanged oncomparison to a prior tracing 1144 Radiology called to discuss the need for IV contrast and given the broad differential including aortic disease, mesenteric disease, abscess, cholecystostomy tube migration, we will need to use contrast. 1340 Radiology called to discuss filling defect in left femoral vein, recommend correlation with DVT ultrasound and if no clot identified in iliac vein, would consider this artifact of contrast. 1340 Radiology also discuss increasing pericardial effusion. 1340 DX Chest AP or PA and Lateral 2 Views My interpretation is no focal airspace disease, trace left pleural effusion is present Final Diagnoses: as of 09/18/23 1654 Prolonged QT Interval Abdominal Pain Failure To Thrive Adult Insufficiency Renal John Gustafson M.D. Resident 09/19/23 0726 documented in this encounter Plan of Treatment Upcoming Encounters Date Type Department Care Team (Latest Contact Info) Description 01/03/2024 2:15 PM CDT Clinical Communication Virtual Review in [place], [place] [address] [place] [phone] 01/07/2024 3:00 PM CDT Office Visit Division of Gastroenterology in [address] [phone] Hank Garner Jr., M.D. [address] [place] [phone] documented as of this encounter Procedures Procedure Name Priority Date/Time Associated Diagnosis Comments TACROLIMUS LEVEL, B Timed 09/18/2023 6:10 PM CDT DIPSTICK, U STAT 09/18/2023 3:59 PM CDT MICROSCOPIC AUTOMATED STAT 09/18/2023 3:59 PM CDT PH, U STAT 09/18/2023 3:59 PM CDT OSMOLALITY, U STAT 09/18/2023 3:59 PM CDT URINALYSIS WITH [...] CULTURE, BLOOD STAT 09/18/2023 12:07 PM CDT LACTATE, B STAT 09/18/2023 11:56 AM CDT HEPATIC FUNCTION PANEL, S STAT 09/18/2023 11:56 AM CDT BACTERIA / MELISSA CULTURE, BLOOD STAT 09/18/2023 11:56 AM CDT CBC WITH DIFFERENTIAL, B STAT 09/18/2023 11:56 AM CDT LIPASE, S/P STAT 09/18/2023 11:56 AM CDT BASIC METABOLIC PANEL, S/P STAT 09/18/2023 11:56 AM CDT TROPONIN T, BASELINE, 5TH GEN, P STAT 09/18/2023 11:42 AM CDT C-REACTIVE PROTEIN (CRP), S/P STAT 09/18/2023 11:42 AM CDT MAGNESIUM, S STAT 09/18/2023 11:42 AM CDT ECG STAT 09/18/2023 11:39 AM CDT documented in this encounter Results * (ABNORMAL) Tacrolimus, Trough (09/18/2023 6:10 PM CDT) Tacrolimus, Trough 3.3(L) 5.0-15.0 (Trough) ng/mL 09/19/2023 10:09 AM CDT [facility] Comment: ----ADDITIONAL INFORMATION---- Target steady-state trough concentrations vary depending on the type of transplant, concomitant immunosuppression, clinical/institutional protocols, and time post-transplant. Results should be interpreted in conjunction with this clinical information and any physical signs/symptoms of rejection/toxicity. Testing performed by Liquid Chromatography-Tandem Mass Spectrometry (LC-MS/MS). This test was developed and its performance characteristics determined by [facility] in a manner consistent with CLIA requirements. This test has not been cleared or approved by the U.S. Food and Drug Administration. Blood (Blood, Venous) 09/18/2023 6:10 PM CDT 09/19/2023 7:14 AM CDT John Gustafson M.D. LAB BLOOD NON ADD-ON [facility] [address] [place] [address] [facility] [address] [place] [address] [place] [address] * Dipstick, Urine (09/18/2023 3:59 PM CDT) Hemoglobin, QL, U Negative Negative 09/18/2023 5:15 PM CDT DTL Leukocyte Esterase, U Negative Negative 09/18/2023 5:15 PM CDT DTL Nitrite, U Negative Negative 09/18/2023 5:15 PM CDT DTL Ketone, U Negative Negative mg/dL 09/18/2023 5:15 PM CDT DTL Glucose, U Negative Negative mg/dL 09/18/2023 5:15 PM CDT DTL Urine 09/18/2023 3:59 PM CDT 09/18/2023 4:34 PM CDT Spring M Shewmaker M.D. LAB URINE ORDERAB LES Performing Organization Address City/[facility]/ZIP Co de Phone Number [facility] [address] [place], [place] [phone] [place] [address] [address] [place] [address] * Osmolality, Urine (09/18/2023 3:59 PM CDT) Osmolality, U 308 150 - 1150 mOsm/kg 09/18/2023 5:05 PM CDT DTL Urine 09/18/2023 3:59 PM CDT 09/18/2023 4:34 PM CDT Spring Mccormack M.D. LAB URINE ORDERAB LES Performing Organization Address City/[facility]/ZIP Co de Phone Number [facility] [address] [place], [place] [address] [address] [place] [address] * pH, Urine (09/18/2023 3:59 PM CDT) pH, U 5.2 4.5 - 8.0 09/18/2023 5:0 5 PM CDT DTL Urine 09/18/2023 3:59 PM CDT 09/18/2023 4:34 PM CDT Spring Mccormack M.D. LAB URINE ORDERAB LES Performing Organization Address City/[facility]/ZIP Co de Phone Number [facility] [address] [place], [place] [phone] [place] [address] [address] [place] [address] * Microscopic Automated (09/18/2023 3:59 PM CDT) Microscopy Normal 09/18/2023 5:15 PM CDT DTL RBC None Seen <3 /hpf 09/18/2023 5:15 PM CDT DTL WBC None Seen /hpf 09/18/2023 5:15 PM CDT DTL Comment: ----REFERENCE VALUE---- <4 ??(Males) <11 (Females) Urine 09/18/2023 3:59 PM CDT 09/18/2023 4:34 PM CDT Spring Mccormack M.D. LAB URINE ORDERAB LES Performing Organization Address [facility]/ZIP Co de Phone Number [facility] [address] [place] [address], [facility] [address] [place] [address] * (ABNORMAL) Urinalysis, with Microscopic: Urine, Catheter (09/18/2023 3:59 PM CDT) Source Urine, Urine, Catheter 09/18/2023 4:34 PM [...] LAB URINE ORDERAB LES Performing Organization Address [facility]/ZIP Co de Phone Number [facility] [address] [place] [address], [facility] [address] [place] [address] * US Lower Extremity Veins Left (09/18/2023 [...] and management can be found on the [employer] site. Link [email or web address]/topic/clinical-answers/[email or web address]/[email or web address] [address] Procedure Note Vicente Byrd M.D. - 09/18/2023 [...] thrombosis and management can be found on the[employer] site. Linkhttps://[employer]/topic/clinical-answers/[email or web address]/[email or web address] -[email or web address] 0357 IMPRESSION: 1. Negative for acute DVT. 2. 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 John Gustafson M.D. IMG US PROCEDURES * (ABNORMAL) Troponin T, 2h/6h, 5th Gen (09/18/2023 2:14 PM CDT) Troponin T, 2 hr, 5th gen 80(H) <=10 ng/L 09/18/2023 3:13 PM CDT DTL 2H Delta -12(A) ng/L 09/18/2023 6:11 PM CDT DTL 2H Delta Interp Changing(A) 09/18/2023 6:11 PM CDT DTL Comment:Evaluate for acute m yocardial injury Troponin T, 6 hr, 5th gen 93(H) <=10 ng/L 09/18/2023 6:35 PM CDT STMA 6H Delta 1 ng/L 09/18/2023 6:35 PM CDT STMA 6H Delta Interp Not Changing 09/18/2023 6:35 PM CDT STMA Blood (Blood, Venous) 09/18/2023 2:14 PM CDT 09/18/2023 2:19 PM CDT Narrative [facility] - 09/18/2023 6:35 PM CDT Specimen Information: Specimen ID: [id number] Specimen Type: Blood Specimen Collection Start Date: 09/18/2023 ??2:14 PM Specimen Received Date: 09/18/2023 ??2:19 PM Specimen ID: [id number] Specimen Type: Blood Specimen Collection Start Date: 09/18/2023 ??6:10 PM Specimen Received Date: 09/18/2023 ??6:11 PM John Gustafson M.D. LAB BLOOD TROPONIN [facility] [address] [place] [address], [place] DTL [facility] [address] [place] [address] STMA [facility] [address] [place] [address] * CT Abdomen Pelvis with IV Contrast [...] Blood # 2 (09/18/2023 12:07 PM CDT) Bacteria/Marcia da Culture, Blood No growth after 5 days of incubation. 09/23/2023 1:02 PM CDT DTL Blood (Blood, Peripheral Draw) 09/18/2023 12:07 PM CDT 09/18/2023 12:21 PM CDT Comment:Specimen Source Site : Blood Narrative [facility] - 09/23/2023 1:02 PM CDT Received Bactec Peds bottle John Gustafson M.D. LAB MICROBIOLOGY - [facility] ORDERABLES [facility] [address] [place] [address], [facility] [address] [place] [address] * Bacteria / Melissa Culture, Blood #1 (09/18/2023 11:56 AM CDT) Bacteria/Marcia da Culture, Blood No growth after 5 days of incubation. 09/23/2023 1:02 PM CDT DTL Blood (Blood, Peripheral Draw) 09/18/2023 11:56 AM CDT 09/18/2023 12:22 PM CDT Comment:Specimen Source Site : Blood John Gustafson M.D. LAB MICROBIOLOGY - G ENERAL ORDERABLES Performing Organization Address [facility] Co de Phone Number [facility] [address] [place], [place] [phone] [place] [address] [facility] [address] [place] [address] * (ABNORMAL) Hepatic Function Panel (09/18/2023 11:56 AM CDT) Bilirubin, Total, S 0.8 0.0 - 1.2 mg/dL 09/18/2023 1:09 PM CDT DTL Bilirubin, Direct, S 0.3 0.0 - 0.3 mg/dL 09/18/2023 1:09 PM CDT DTL Aspartate Aminotransferase (AST), S 12 8 - 43 U/L 09/18/2023 1:09 PM CDT DTL Alanine Aminotransferase (ALT), S 19 7 - 45 U/L 09/18/2023 1:09 PM CDT DTL Alkaline Phosphatase, S 113(H) 35 - 104 U/L 09/18/2023 1:09 PM CDT DTL Albumin, S 3.2(L) 3.5 - 5.0 g/dL 09/18/2023 1:09 PM CDT DTL Protein, Total, S 6.8 6.3 - 7.9 g/dL 09/18/2023 1:09 PM CDT DTL Blood (Blood, Venous) 09/18/2023 11:56 AM CDT 09/18/2023 12:40 PM CDT John Gustafson M.D. LAB BLOOD ADD-ON Performing Organization Address City/[facility]/ZIP Co de Phone Number [facility] [address] [place] [address], [facility] [address] [place] [address] * Lactate, B (09/18/2023 11:56 AM CDT) Pathologist [facility] Lactate, B 0.6 0.5 - 2.2 mmol/L 09/18/2023 12:05 PM CDT STMA Blood (Blood, Venous) 09/18/2023 11:56 AM CDT 09/18/2023 12:03 PM CDT John Gustafson M.D. LAB BLOOD NON ADD-ON Performing Organization Address City/[facility]/ZIP Co de Phone Number [facility] [address] [place] [address], [facility] STMA [facility] [address] [place] [address] * Lipase (09/18/2023 11:56 AM CDT) Pathologist [facility] Lipase, S 28 13 - 60 U/L 09/18/2023 1: 09 PM CDT DTL Blood (Blood, Venous) 09/18/2023 11:56 AM CDT 09/18/2023 12:40 PM CDT John Gustafson M.D. LAB BLOOD ADD-ON Performing Organization Address [facility] Co de Phone Number [facility] [address] [place] [address], [facility] DTL [facility] [address] [place] [address] * (ABNORMAL) CBC with Differential, Blood (09/18/2023 11:56 AM CDT) [facility] Hemoglobin 8.4(L) 11.6 - 15.0 g/dL 09/18/2023 12:07 PM CDT STMA Hematocrit 25.7(L) 35.5 - 44.9 % 09/18/2023 12:07 PM CDT STMA Erythrocytes 2.92(L) 3.92 - 5.13 x10(12)/L 09/18/2023 12:07 PM CDT STMA MCV 88.0 78.2 - 97.9 fL 09/18/2023 12:07 PM CDT STMA RBC Distrib Width 16.9(H) 12.2 - 16.1 % 09/18/2023 12:07 PM CDT STMA Platelet Count 319 157 - 371 x10(9)/L 09/18/2023 12:07 PM CDT STMA Leukocytes 11.3(H) 3.4 - 9.6 x10(9)/L 09/18/2023 12:07 PM CDT STMA Neutrophils 8.71(H) 1.56 - 6.45 x10(9)/L 09/18/2023 12:07 PM CDT [facility] Lymphocytes 1.28 0.95 - 3.07 x10(9)/L 09/18/2023 12:07 PM CDT [facility] Monocytes 0.99(H) 0.26 - 0.81 x10(9)/L 09/18/2023 12:07 PM CDT [facility] Eosinophils 0.33 0.03 - 0.48 x10(9)/L 09/18/2023 12:07 PM CDT [facility] Basophils 0.03 0.01 - 0.08 x10(9)/L 09/18/2023 12:07 PM CDT [facility] Blood (Blood, Venous) 09/18/2023 11:56 AM CDT 09/18/2023 12:03 PM CDT John Gustafson M.D. LAB BLOOD ADD-ON [facility] [address] [place] [address], [facility] STMA [facility] [address] [place] [address] [facility] [address] [place] [address] * (ABNORMAL) Basic Metabolic Panel (09/18/2023 11:56 AM CDT) [facility] Potassium, P 3.6 3.6 - 5.2 mmol/L 09/18/2023 12:21 PM CDT [facility] Sodium, P 131(L) 135 - 145 mmol/L 09/18/2023 12:21 PM CDT [facility] Chloride, P 93(L) 98 - 107 mmol/L 09/18/2023 12:21 PM CDT [facility] Bicarbonate, P 25 22 - 29 mmol/L 09/18/2023 12:21 PM CDT [facility] Anion Gap, P 13 7 - 15 09/18/2023 12:21 PM CDT [facility] BUN (Blood Urea Nitrogen), P 51(H) 6 - 21 mg/dL 09/18/2023 12:21 PM CDT [facility] Creatinine 1.94(H) 0.59 - 1.04 mg/dL 09/18/2023 12:21 PM CDT [facility] Estimated GFR (eGFR) 28(L) >=60 mL/min/BSA 09/18/2023 12:21 PM CDT [facility] Comment: Estimated GFR calculated using the 2020 CKD_EPI creatinine equation. Calcium, Total, P 8.9 8.8 - 10.2 mg/dL 09/18/2023 12:21 PM CDT [facility] Glucose, P 90 70 - 140 mg/dL 09/18/2023 12:21 PM CDT [facility] Blood (Blood, Venous) 09/18/2023 11:56 AM CDT 09/18/2023 12:03 PM CDT John Gustafson M.D. LAB BLOOD ADD-ON Performing Organization Address City/[facility]/ZIP Co de Phone Number [facility] [address] [place] [address], [facility] STMA [facility] [address] [place] [address] * (ABNORMAL) CRP (C-Reactive Protein) (09/18/2023 11:42 AM CDT) C-Reactive Protein (CRP), S 127.0(H) <5.0 mg/L 09/18/2023 2:54 PM CDT DTL Blood (Blood, Venous) 09/18/2023 11:42 AM CDT 09/18/2023 2:25 PM CDT John Gustafson M.D. LAB BLOOD ADD-ON Performing Organization Address City/[facility]/ZIP Co de Phone Number [facility] [address] 200 [place] [address] * (ABNORMAL) Troponin T, Baseline, 5th gen (09/18/2023 11:42 AM CDT) [facility] Troponin T, Baseline, 5th gen 92(H) <=10 ng/L 09/18/2023 2:41 PM CDT DTL Blood (Blood, Venous) 09/18/2023 11:42 AM CDT 09/18/2023 1:43 PM CDT John Gustafson M.D. LAB BLOOD TROPONIN [facility] [address] [place] [address] * Magnesium (09/18/2023 11:42 AM CDT) [facility] Magnesium, S 2.0 1.7 - 2.3 mg/dL 09/18/2023 2:03 PM CDT DT Blood (Blood, Venous) 09/18/2023 11:42 AM CDT 09/18/2023 1:37 PM CDT Spring Mccormack M.D. LAB BLOOD ADD-ON [facility] [address] [place] [address] * ECG 12 Lead (09/18/2023 11:39 AM CDT) [facility] Ventricular Rate ECG/Min 51 BPM MUSE AL Interval 166 ms MUSE QRSD Interval 90 ms MUSE QT Interval 534 ms MUSE QTC Interval 492 ms MUSE P Stafford 8 degrees MUSE R Stafford 31 degrees MUSE T Wave Stafford 181 degrees MUSE 09/18/2023 11:3 9 AM CDT 09/18/2023 11:45 AM CDT Impressions MUSE - 09/18/2023 11:45 AM CDT Sinus bradycardia Moderate voltage criteria for LVH, may be normal variant T wave abnormality, consider anterolateral ischemia Prolonged QT When compared with ECG of 26-Aug-2023 07:18, QT has lengthened Reviewed by ANA Barboza Narrative Procedure Note Oscar Maguire M.D. - 09/18/2023 IMPRESSION: Sinus bradycardia Moderate voltage criteria for LVH, may be normal variant T wave abnormality, consider anterolateral ischemia Prolonged QT When compared with ECG of 26-Aug-2023 07:18, QT has lengthened Reviewed by ANA Barboza Spring Mccoramck M.D. 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 Insufficiency Renal documented in this encounter Admitting Diagnoses Diagnosis Insufficiency Renal documented in this encounter Administered Medications Inactive Administered Medications - up to 3 most recent administrations Medication Order MAR Action Action Date Dose Rate Site fentaNYL injection 50 mcg (SUBLIMAZE) 50 mcg, intravenous, Every 30 min, First dose on Sat09/18/23 at 1132, For 3 doses Given 09/18/2023 11:35 AM CDT 50 mcg iohexoL 300 mg iodine/mL solution 1-200 mL (OMNIPAQUE) 1-200 mL, intravenous, Once in imaging, contrast, Starting on Sat09/18/23 at 1310, For 1 dose, Imaging Protocol Orders, Dose per Radiant Medication Guidelines Given 09/18/2023 1:12 PM CDT 100 mL NaCl 0.9 % bolus 1,000 mL 1,000 mL, intravenous, at 1,000 mL/hr, Administer over 1 Hours, Once, On Sat09/18/23 at 1253, For 1 dose New Bag 09/18/2023 1:32 PM CDT 1,000 mL 100 0 mL/hr sodium chloride (PF) 0.9 % injection 1-100 mL 1-100 mL, intravenous, Once, On Sat09/18/23 at 1311, For 1 dose, Imaging Protocol Orders, Dose per Radiant Medication Guidelines Given 09/18/2023 1:12 PM CDT 50 mL sodium chloride 0.9 % injection 2-10 mL 2-10 mL, intravenous, As needed, line care, Starting on Sat09/18/23 at 1122 documented in this encounter Active and Recently Administered Medications Times are shown in CDT. Scheduled Medication Order 09/16/2023 09/17/2023 09/18/2023 fentaNYL injection 50 mcg (SUBLIMAZE) () 50 mcg, intravenous, Every 30 min, First dose on Sat09/18/23 at 1132, For 3 doses 1135 (Given - Provid er: Mirna Encinas R.N.)1334 (Not Given - Provider: Doretha Peterson R.N. - Reason: Patient/family refused)1335 (Not Given - Provider: Doretha Peterson R.N. - Reason: Patient/family refused) NaCl 0.9 % bolus 1,000 mL (COMPLETED) 1,000 mL, intravenous, at 1,000 mL/hr, Administer over 1 Hours, Once, On Sat09/18/23 at 1253, For 1 dose 1332 (New Bag - Prov ider: Doretha Peterson R.N.)1432 (Due: Stopped - Provider: Doretha Peterson R.N.) sodium chloride (PF) 0.9 % injection 1-100 mL (COMPLETED) 1-100 mL, intravenous, Once, On Sat09/18/23 at 1311, For 1 dose, Imaging Protocol Orders, Dose per Radiant Medication Guidelines 1312 (Given - Provid er: China Leon R.N.) PRN Medication Order 09/16/2023 09/17/2023 09/18/2023 iohexoL 300 mg iodine/mL solution 1-200 mL (OMNIPAQUE) (COMPLETED) 1-200 mL, intravenous, Once in imaging, contrast, Starting on Sat09/18/23 at 1310, For 1 dose, Imaging Protocol Orders, Dose per Radiant Medication Guidelines 1312 (Given - Provid er: China Leon R.N. - Comment: [id number]) sodium chloride 0.9 % injection 2-10 mL(Linked Group 1) 2-10 mL, intravenous, As needed, line care, Starting on Sat09/18/23 at 1122 Linked Groups Order Group 1: Place peripheral IV: No upper extremity site restrictions (COMPLETED) Upper extremity site restriction: No upper extremity site restrictions, Quantity of PIVs requested: One, STAT, Once, On Sat09/18/23 at 1123, For 1 occurrence And sodium chloride 0.9 % injection 2-10 mLJump to med 2-10 mL, intravenous, As needed, line care, Starting on Sat09/18/23 at 1122 documented in this encounter Additional Health Concerns Infection Onset Date Last Indicated Resolved Time Protective Environment 09/03/2022 09/03/2022 Assessment Noted Time PHQ-9 Depression Total Score: 0 07/11/19 17 12:26 PM SHIPFITTER HELPER documented as of this encounter Care Teams Plating Operator Relationship Specialty Start Date End Date Elsewhere, Pcp PCP - General Internal Medicine 05/08/23 [facility] Laboratory Medicine 04/07/20 documented as of this encounter
--- OUTSIDE RECORDS SUMMARY | 2023-11-23 13:22 | XMS_ITS | Encounter Summary ---
Author Organization [facility] Address [address] [place] [address] Care Team Providers Care Oven Equipment Repairer Name Role Phone Elsewhere, Pcp Primary Care Provider Unavailabl e Encounter Details Date Type Department Care Team (Latest Contact Info) Description 09/06/2023 7:50 AM CDT - 09/06/2023 11:03 AM CDT Hospital Encounter Department of Laboratory Medicine and Pathology, [place], [place] [address] [place] [address] Daysi Mariano M.D. [address] [place] [phone] Transplant Renal (HCC) Discharge Disposition: Home or Self Care Social History Tobacco Use Types Packs/Day Years Used Date Smoking Tobacco: Former Cigarettes Smokeless Tobacco: Never Alcohol Use Standard Drinks/Week Comments Not Currently 0 (1 standard drink = 0.6 oz pur e alcohol) [facility] Utilities Answer Date Recorded In the past 12 months has [employer] gas, oil, or water [employer] threatened to shut off services in your [...] your living situation today? I have a [facility] place to live 08/20/2023 Sex and Gender Information Value Date Recorded Sex Assigned at Female 05/14/2018 2:49 PM BOX TRUCK OWNER OPERATOR Gender Identity Female 05/14/2018 2:49 PM BOX TRUCK OWNER OPERATOR Sexual Orientation Straight 05/14/2018 2: 49 PM BOX TRUCK OWNER OPERATOR documented as of this encounter Medications at Time of Discharge Medication Sig Dispensed Refills Start Date End Date mycophenolate (CELLCEPT) 250 mg capsuleIndications:Tra nsplant Renal (HCC),Immunodeficiency (HCC),Medication Therapy Contact Lens Blocker Not Anticoagulant Take 2 capsules (500 mg [...] details see Order Report 1 each 08/30/2023 qgaykp-oiplnaxo-xciuhs e (CREON) 36,000-114,000-180,[address] capsule Take 36,000 Units of lipase by mouth 4 (four) times a day. lftzonqggeel-kvrp-HO-C a-minerals (THERAPEUTIC-M) 400 mcg (folic acid) per [...] mouth daily. 90 tablet 3 07/16/2023 09/19/2023 tacrolimus (PROGRAF) 0.[address] 1 capsule (0.5 mg total) under the tongue 2 (two) times a day. 60 capsule 08/30/2023 09/12/2023 documented as of this encounter Plan of Treatment Upcoming Encounters Date Type Department Care Team (Latest Contact Info) Description 01/03/2024 2:15 PM CDT Clinical Communication Virtual Review in [place], [place] 200 [place] [phone] 01/07/2024 3:00 PM CDT Office Visit Division of Gastroenterology in [address] [phone] Hank Garner Jr., M.D. [address] [place] [phone] documented as of this encounter Procedures Procedure Name Priority Date/Time Associated Diagnosis Comments TACROLIMUS LEVEL, B Routine 09/06/2023 8 :34 AM CDT Transplant Renal (HCC) BASIC METABOLIC PANEL, S/P Routine 09/06/2023 8:34 AM CDT Transplant Renal (HCC) documented in this encounter Results * (ABNORMAL) Basic Metabolic Panel (09/06/2023 8:34 AM CDT) Potassium, S 4.5 3.6 - 5.2 mmol/L 09/06/2023 9:25 AM CDT DTL Sodium, S 136 135 - 145 mmol/L 09/06/2023 9:25 AM CDT DTL Chloride, S 99 98 - 107 mmol/L 09/06/2023 9:25 AM CDT DTL Bicarbonate, S 27 22 - 29 mmol/L 09/06/2023 9:25 AM CDT DTL Anion Gap 10 7 - 15 09/06/2023 9:25 AM CDT DTL BUN (Blood Urea Nitrogen), S 37(H) 6 - 21 mg/dL 09/06/2023 9:25 AM CDT DTL Creatinine 1.74(H) 0.59 - 1.04 mg/dL 09/06/2023 9:25 AM CDT DTL Estimated GFR (eGFR) 31(L) >=60 mL/min/BSA 09/06/2023 9:25 AM CDT DTL Comment: Estimated GFR calculated using the 2020 CKD_EPI creatinine equation. Calcium, Total, S 9.4 8.8 - 10.2 mg/dL 09/06/2023 9:25 AM CDT DTL Glucose, S 90 70 - 140 mg/dL 09/06/2023 9:25 AM CDT DTL Blood (Blood, Venous) 09/06/2023 8:34 AM CDT 09/06/2023 9:06 AM CDT Daysi Mariano M.D. LAB BLOOD ADD-ON [facility] [address] [place] [address], [facility] [address] [place] [address] * (ABNORMAL) Tacrolimus, Trough (09/06/2023 8:34 AM CDT) Tacrolimus, Trough 1.8(L) 5.0-15.0 (Trough) ng/mL 09/06/2023 2:42 PM CDT [facility] Comment: ----ADDITIONAL INFORMATION---- Target steady-state trough concentrations vary depending on the type of transplant, concomitant immunosuppression, clinical/institutional protocols, and time post-transplant. Results should be interpreted in conjunction with this clinical information and any physical signs/symptoms of rejection/toxicity. Testing performed by Liquid Chromatography-Tandem Mass Spectrometry (LC-MS/MS). This test was developed and its performance characteristics determined by [facility] in a manner consistent with CLIA requirements. This test has not been cleared or approved by the U.S. Food and Drug Administration. Blood (Blood, Venous) 09/06/2023 8:34 AM CDT 09/06/2023 10:51 AM CDT Daysi Mariano M.D. LAB BLOOD NON ADD-ON [facility] [address] [place] [address] [facility] [address] [place] [address] [place] [address] documented in this encounter Visit Diagnoses Diagnosis Transplant Renal (HCC) documented in this encounter Additional Health Concerns Infection Onset Date Last Indicated Resolved Time Protective Environment 09/03/2022 09/03/2022 Assessment Noted Time PHQ-9 Depression Total Score: 0 07/11/19 17 12:26 PM BOX TRUCK OWNER OPERATOR documented as of this encounter Care Teams Oven Equipment Repairer Relationship Specialty Start Date End Date Elsewhere, Pcp PCP - General Internal Medicine 05/08/23 [facility] Laboratory Medicine 04/07/20 documented as of this encounter
--- OUTSIDE RECORDS SUMMARY | 2023-11-23 13:22 | XMS_ITS | Encounter Summary ---
Author Organization [facility] Address [address] [place] [address] Care Team Providers Care Remote Sensing Specialist Name Role Phone Elsewhere, Pcp Primary Care Provider Unavailabl e Encounter Details Date Type Department Care Team (Latest Contact Info) Description 09/06/2023 11:04 AM CDT - 09/06/2023 11:59 PM CDT Hospital Encounter Department of Laboratory Medicine and Pathology, [facility] in [place], [place] [address] [place] [phone] Kayli Llanes APRN, C.N.P., D.N.P. [address] [place] [phone] Transplant Renal (HCC) Discharge Disposition: Home or Self Care Social History Tobacco Use Types Packs/Day Years Used Date Smoking Tobacco: Former Cigarettes Smokeless Tobacco: Never Alcohol Use Standard Drinks/Week Comments Not Currently 0 (1 standard drink = 0.6 oz pur e alcohol) [facility] Utilities Answer Date Recorded In [...] your living situation today? I have a [facility] place to live 08/20/2023 Sex and Gender Information Value Date Recorded Sex Assigned at Female 05/14/2018 2:49 PM HOME HEALTH PROVIDER Gender Identity Female 05/14/2018 2:49 PM HOME HEALTH PROVIDER Sexual Orientation Straight 05/14/2018 2: 49 PM HOME HEALTH PROVIDER documented as of this encounter Medications at Time of Discharge Medication Sig Dispensed Refills Start Date End Date mycophenolate (CELLCEPT) 250 mg capsuleIndications:Tra nsplant Renal (HCC),Immunodeficiency (HCC),Medication Therapy Legal Assistant Not Anticoagulant Take 2 capsules (500 mg [...] details see Order Report 1 each 08/30/2023 jtwiwt-lsijeehn-ofpvkc e (CREON) 36,000-114,000-180,[address] capsule Take 36,000 Units of lipase by mouth 4 (four) times a day. vxnsbugeohmy-vqbw-BJ-C a-minerals (THERAPEUTIC-M) 400 mcg (folic acid) per [...] PM CDT Clinical Communication Virtual Review in [place], [place] 200 [place] [address] 01/07/2024 3:00 PM CDT Office Visit Division of Gastroenterology in [address] [phone] Hank Garner Jr., M.D. [address] [place] [phone] documented as of this encounter Procedures Procedure Name Priority Date/Time Associated Diagnosis Comments HEPATIC FUNCTION PANEL, S Routine 09/06/2023 11:44 AM CDT Transplant Renal (HCC) CBC WITH DIFFERENTIAL, B Routine 09/06/2023 11:44 AM CDT Transplant Renal (HCC) documented in this encounter Results * (ABNORMAL) Hepatic Function Panel (09/06/2023 11:44 AM CDT) Bilirubin, Total, S 0.3 0.0 - 1.2 mg/dL 09/06/2023 12:39 PM CDT DTL Bilirubin, Direct, S <0.2 0.0 - 0.3 mg/dL 09/06/2023 12:39 PM CDT DTL Aspartate Aminotransferase (AST), S 33 8 - 43 U/L 09/06/2023 12:39 PM CDT DTL Alanine Aminotransferase (ALT), S 38 7 - 45 U/L 09/06/2023 12:39 PM CDT DTL Alkaline Phosphatase, S 96 35 - 104 U/L 09/06/2023 12:39 PM CDT DTL Albumin, S 3.3(L) 3.5 - 5.0 g/dL 09/06/2023 12:39 PM CDT DTL Protein, Total, S 7.0 6.3 - 7.9 g/dL 09/06/2023 12:39 PM CDT DTL Blood (Blood, Venous) 09/06/2023 11:44 AM CDT 09/06/2023 12:19 PM CDT Kayli Llanes APRN C.N.P., D.N.P. LAB BLOOD ADD-ON [facility] [address] [place] [address], [facility] [place] [address] [place] [address] * (ABNORMAL) CBC with Differential, Blood (09/06/2023 11:44 AM CDT) Hemoglobin 7.8(L) 11.6 - 15.0 g/dL 09/06/2023 12:21 PM CDT DTL Hematocrit 25.1(L) 35.5 - 44.9 % 09/06/2023 12:21 PM CDT DTL Erythrocytes 2.76(L) 3.92 - 5.13 x10(12)/L 09/06/2023 12:21 PM CDT DTL MCV 90.9 78.2 - 97.9 fL 09/06/2023 12:21 PM CDT DTL RBC Distrib Width 16.0 12.2 - 16.1 % 09/06/2023 12:21 PM CDT DTL Platelet Count 364 157 - 371 x10(9)/L 09/06/2023 12:21 PM CDT DTL Leukocytes 12.0(H) 3.4 - 9.6 x10(9)/L 09/06/2023 12:21 PM CDT DTL Neutrophils 9.34(H) 1.56 - 6.45 x10(9)/L 09/06/2023 12:21 PM CDT [facility] Lymphocytes 1.56 0.95 - 3.07 x10(9)/L 09/06/2023 12:21 PM CDT DTL Monocytes 0.85(H) 0.26 - 0.81 x10(9)/L 09/06/2023 12:21 PM CDT DTL Eosinophils 0.18 0.03 - 0.48 x10(9)/L 09/06/2023 12:21 PM CDT DTL Basophils 0.05 0.01 - 0.08 x10(9)/L 09/06/2023 12:21 PM CDT DTL Blood (Blood, Venous) 09/06/2023 11:44 AM CDT 09/06/2023 12:15 PM CDT Kayli Llanes APRN, C.N.P., D.N.P. LAB BLOOD ADD-ON [facility] [address] [place] [address], [facility] DTL [facility] [address] [place] [address] DHPM [facility] [address] [place] [address] documented in this encounter Visit Diagnoses Diagnosis Transplant Renal (HCC) documented in this encounter Additional Health Concerns Infection Onset Date Last Indicated Resolved Time Protective Environment 09/03/2022 09/03/2022 Assessment Noted Time PHQ-9 Depression Total Score: 0 07/11/19 17 12:26 PM HOME HEALTH PROVIDER documented as of this encounter Care Teams Remote Sensing Specialist Relationship Specialty Start Date End Date Elsewhere, Pcp PCP - General Internal Medicine 05/08/23 [facility] Laboratory Medicine 04/07/20 documented as of this encounter
--- OUTSIDE RECORDS SUMMARY | 2023-11-23 13:22 | XMS_ITS | Encounter Summary ---
Author Organization [facility] Address [address] [place] [address] Care Team Providers Care Credit Control Officer Name Role Phone Elsewhere, Pcp Primary Care Provider Unavailabl e Encounter Details Date Type Department Care Team (Late st Contact Info) Description 09/20/2023 9:25 AM CDT Ancillary Procedure Department of Nursing Social History Tobacco Use Types Packs/Day Years Used Date Smoking Tobacco: Former Cigarettes Smokeless Tobacco: Never Alcohol Use Standard Drinks/Week Comments Not Currently 0 (1 standard drink = 0.6 oz pur e alcohol) [facility] Utilities Answer Date Recorded In the past [...] your living situation today? I have a [facility] place to live 09/19/2023 Sex and Gender Information Value Date Recorded Sex Assigned at Female 05/14/2018 2:49 PM FLOOR INSTALLER Gender Identity Female 05/14/2018 2:49 PM FLOOR INSTALLER Sexual Orientation Straight 05/14/2018 2: 49 PM FLOOR INSTALLER documented as of this encounter Plan of Treatment Upcoming Encounters Date Type Department Care Team (Latest Contact Info) Description 01/03/2024 2:15 PM CDT Clinical Communication Virtual Review in [place], [place] 200 [place] [phone] 01/07/2024 3:00 PM CDT Office Visit Division of Gastroenterology in [place], [place] [address] [place] [phone] Hank Garner Jr., M.D. [address] [place] [phone] documented as of this encounter Procedures Procedure Name Priority Date/Time Associated Diagnosis Comments NURSING IMAGE EXAM Routine 09/20/2023 9: 25 AM CDT documented in this encounter Results * Coccyx-Nursing Image Exam (09/20/2023 9:25 AM CDT) 09/20/2023 9:25 AM CDT Narrative IIMS - [...] Total Score: 0 07/11/19 17 12:26 PM FLOOR INSTALLER documented as of this encounter Care Teams Credit Control Officer Relationship Specialty Start Date End Date Elsewhere, Pcp PCP - General Internal Medicine 05/08/23 [facility] Laboratory Medicine 04/07/20 documented as of this encounter
--- OUTSIDE RECORDS SUMMARY | 2023-11-23 13:22 | XMS_ITS | Encounter Summary ---
Author Organization [facility] Address [address] [place] [address] Care Team Providers Care Stubber Name Role Phone Elsewhere, Pcp Primary Care Provider Unavailabl e Encounter Details Date Type Department Care Team (Latest Contact Info) Description 09/06/2023 Orders Only Otto Estrada [facility] in [place], [place] [address] [place] [phone] Mere Blair R.N., C.C.T.C. Immunodeficiency (HCC) (Primary Dx); Transplant Renal (HCC); High Risk Medication Social History Tobacco Use Types Packs/Day Years Used Date Smoking Tobacco: Former Cigarettes Smokeless Tobacco: Never Alcohol Use Standard Drinks/Week Comments Not Currently 0 (1 standard drink = 0.6 oz pur e alcohol) [facility] Utilities Answer Date Recorded In the past 12 months has [facility] [employer], oil, or water [employer] threatened to shut off services in [...] your living situation today? I have a [facility] place to live 09/19/2023 Sex and Gender Information Value Date Recorded Sex Assigned at Female 05/14/2018 2:49 PM CAST IRON DRAIN PIPE LAYER Gender Identity Female 05/14/2018 2:49 PM CAST IRON DRAIN PIPE LAYER Sexual Orientation Straight 05/14/2018 2: 49 PM CAST IRON DRAIN PIPE LAYER documented as of this encounter Plan of Treatment Upcoming Encounters Date Type Department Care Team (Latest Contact Info) Description 01/03/2024 2:15 PM CDT Clinical Communication Virtual Review in [place], [place] [address] [place] [phone] 01/07/2024 3:00 PM CDT Office Visit Division of Gastroenterology in [place], [place] [address] [place] [phone] Hank Garner Jr., M.D. [address] [place] [phone] documented as of this encounter Visit Diagnoses Diagnosis Immunodeficiency (HCC)- Primary Transplant Renal (HCC) High Risk Medication documented in this encounter Additional Health Concerns Infection Onset Date Last Indicated Resolved Time Protective Environment 09/03/2022 09/03/2022 Assessment Noted Time PHQ-9 Depression Total Score: 0 07/11/19 17 12:26 PM CAST IRON DRAIN PIPE LAYER documented as of this encounter Care Teams Stubber Relationship Specialty Start Date End Date Elsewhere, Pcp PCP - General Internal Medicine 05/08/23 [facility] Laboratory Medicine 04/07/20 documented as of this encounter
--- OUTSIDE RECORDS SUMMARY | 2023-11-23 13:22 | XMS_ITS | Encounter Summary ---
Author Organization [facility] Address [address] [place] [address] Care Team Providers Care X Ray Equipment Tester Name Role Phone Elsewhere, Pcp Primary Care Provider Unavailabl e Encounter Details Date Type Department Care Team (Latest Contact Info) Description 09/17/2023 Clinical Communication Otto Estrada [facility] in [place], [place] [address] [place] [phone] Kayli Llanes APRN, C.N.P., D.N.P. [address] [place] [phone] Social History Tobacco Use Types Packs/Day Years Used Date Smoking Tobacco: Former Cigarettes Smokeless Tobacco: Never Alcohol Use Standard Drinks/Week Comments Not Currently 0 (1 standard drink = 0.6 oz pur e alcohol) [facility] Utilities Answer Date Recorded In the past 12 months has [facility] [email or web address], [employer], oil, or water [employer] threatened to shut off services in your [...] living situation today? I have a [facility] place to live 09/19/2023 Sex and Gender Information Value Date Recorded Sex Assigned at Female 05/14/2018 2:49 PM CONSTRUCTION CARPENTERS HELPER Gender Identity Female 05/14/2018 2:49 PM CONSTRUCTION CARPENTERS HELPER Sexual Orientation Straight 05/14/2018 2: 49 PM CONSTRUCTION CARPENTERS HELPER documented as of this encounter Plan of Treatment Upcoming Encounters Date Type Department Care Team (Latest Contact Info) Description 01/03/2024 2:15 PM CDT Clinical Communication Virtual Review in [place], [place] 200 [place] [phone] 01/07/2024 3:00 PM CDT Office Visit Division of Gastroenterology in [place], [place] [address] [place] [phone] Hank Garner Jr., M.D. [address] [place] [phone] documented as of this encounter Visit Diagnoses Not on filedocumented in this encounter Additional Health Concerns Infection Onset Date Last Indicated Resolved Time Protective Environment 09/03/2022 09/03/2022 C. difficile 09/21/2023 09/21/2023 10/19/2023 5:38 AM CDT Assessment Noted Time PHQ-9 Depression Total Score: 0 07/11/19 17 12:26 PM CONSTRUCTION CARPENTERS HELPER documented as of this encounter Care Teams X Ray Equipment Tester Relationship Specialty Start Date End Date Elsewhere, Pcp PCP - General Internal Medicine 05/08/23 [facility] Laboratory Medicine 04/07/20 documented as of this encounter
--- OUTSIDE RECORDS SUMMARY | 2023-11-23 13:22 | XMS_ITS | Encounter Summary ---
Author Organization [facility] Address [address] [place] [phone] Care Team Providers Care Waitstaff Captain Name Role Phone Elsewhere, Pcp Primary Care Provider Unavailabl e Encounter Details Date Type Department Care Team (Late st Contact Info) Description 09/18/2023 Nurse Triage Department of Family Medicine, [address] [phone] Cierra Bailey, RMarlysN. [address] [place] [phone] Social History Tobacco Use Types Packs/Day Years Used Date Smoking Tobacco: Former Cigarettes Smokeless Tobacco: Never Alcohol Use Standard Drinks/Week Comments Not Currently 0 (1 standard drink = 0.6 oz pur e alcohol) [facility] Utilities Answer Date Recorded In the past 12 months has [facility] [employer], gas, oil, or water [employer] threatened to shut off services in your [...] your living situation today? I have a [facility] place to live 09/19/2023 Sex and Gender Information Value Date Recorded Sex Assigned at Female 05/14/2018 2:49 PM SUPERVISOR CABINETMAKER Gender Identity Female 05/14/2018 2:49 PM SUPERVISOR CABINETMAKER Sexual Orientation Straight 05/14/2018 2: 49 PM SUPERVISOR CABINETMAKER documented as of this encounter Miscellaneous Notes * Telephone Encounter - Cierra Bailey R.N. - 09/18/2023 8:20 AM CDT Silvino, Jacqueline's , calls with concerns about his . Jacqueline was recently hospitalized forCholecystis. She is again having the chest and belly pain. She rates her pain as a 7/10. Slivino denies that she is short of breath but he notes she is more somnolent. Based one her symptoms the nurse recommended that Silvino take her to the emergency room for further evaluation. documented in this encounter Plan of Treatment Upcoming Encounters Date Type Department Care Team (Latest Contact Info) Description 01/03/2024 2:15 PM CDT Clinical Communication Virtual Review in [place], [place] 200 [place] [phone] 01/07/2024 3:00 PM CDT Office Visit Division of Gastroenterology in [place], [place] [address] [place] [phone] Hank Garner Jr., M.D. [address] [place] [address] documented as of this encounter Visit Diagnoses Not on filedocumented in this encounter Additional Health Concerns Infection Onset Date Last Indicated Resolved Time Protective Environment 09/03/2022 09/03/2022 Assessment Noted Time PHQ-9 Depression Total Score: 0 07/11/19 17 12:26 PM SUPERVISOR CABINETMAKER documented as of this encounter Care Teams Waitstaff Captain Relationship Specialty Start Date End Date Elsewhere, Pcp PCP - General Internal Medicine 05/08/23 [facility] Laboratory Medicine 04/07/20 documented as of this encounter
--- OUTSIDE RECORDS SUMMARY | 2023-11-23 13:22 | XMS_ITS | Encounter Summary ---
Author Organization [facility] Address [address] [place] [phone] Care Team Providers Care Apparatus Lineman Name Role Phone Elsewhere, Pcp Primary Care Provider Unavailabl e Reason for Visit * Outpatient (Routine) - Closed Specialty Diagnoses / Procedures Referred By Contact Referred To Contact Cardiovascular Diseases / Cardiovascular Disease Diagnoses Tachy Bennie Syndrome (HCC) David Joy M.D. [address] [place] [phone] [facility] Referral ID Status Reason Start Date Expiration Date Visits Re quested Visits Authorized [id number] Closed 08/30/2023 02/28/2025 1 1 Encounter Details Date Type Department Care Team (Latest Contact Info) Description 09/09/2023 9:30 AM CDT Comprehensive Visit Department of Cardiovascular Medicine in [place], [place] [address] [place] [phone] Kalyn Livingston M.D. [address] [place] [phone] Tachy Bennie Syndrome (HCC) Social History Tobacco Use Types Packs/Day Years Used Date Smoking Tobacco: Former Cigarettes Smokeless Tobacco: Never Tobacco Cessation:Counseling Given: No Alcohol Use Standard Drinks/Week Comments Not Currently 0 (1 standard drink = 0.6 oz pur e alcohol) [facility] Utilities Answer Date Recorded In the past 12 months has [employer], gas, oil, or water company threatened [...] your living situation today? I have a [facility] place to live 08/20/2023 Sex and Gender Information Value Date Recorded Sex Assigned at Female 05/14/2018 2:49 PM SUPERVISOR HARD CANDY Gender Identity Female 05/14/2018 2:49 PM SUPERVISOR HARD CANDY Sexual Orientation Straight 05/14/2018 2: 49 PM SUPERVISOR HARD CANDY documented as of this encounter Last Filed Vital Signs Vital Sign Reading Time Taken Comments Blood Pressure 147/69 09/09/2023 9:32 AM CDT Pulse 56 09/09/2023 9:32 AM CDT Temperature - - Respiratory Rate - - Oxygen Saturation - - Inhaled Oxygen Concentration - - Weight 40.8 kg (89 lb 15.2 oz) 09/09/2023 9:32 A M CDT Height 164.4 cm (5' 4.72) 09/09/2023 9:32 AM CD T Body Mass Index 15.1 09/09/2023 9:32 AM CDT documented in this encounter Consult Notes * Kalyn Mann M.D. - 09/09/2023 9:30 AM CDT REFERRAL SOURCE David Joy M.D. CHIEF COMPLAINT / REASON FOR VISIT Tachy-bennie syndrome HISTORY OF PRESENT ILLNESS It was my pleasure to meet and evaluate Ms. Galvan. She is accompanied by her . She is a 68 y.o. 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 She was previously evaluated by Dr. Suzanna Topete of the Heart [facility] Service on 08/23/2023 during her recent hospitalization for cholecystitis during which she was deemed not a surgical candidate and underwent ERCP - she had atight cystic duct and transcystic stent could not be placed. The plan was for the patient to undergo percutaneous cholecystotomy drain placement on 08/21, however she developed hypoxic respiratory failure and was transferred to the MICU. Subsequently later on 08/21 the patient underwent placement of the 10 Croatian percutaneous cholecystostomy tube. In the midst of the above, on 08/23/2023 in the evening, she had episodes of symptomatic atrial fibrillation with rapid ventricular rate (117 bpm) that were followed by conversion pauses (2-3 secs) with junctional bradycardia at approximately 30 bpm. This spontaneously resolved and she had no further episodes. The patient has a history of Atrial Fibrillation back in 2014 that was diagnosed in the setting of end-stage renal disease and hypovolemia. She has not been on anticoagulation or any rate control therapy since then. [facility] was consulted for consideration of PPM. In the absence of acute illness, she is not known to have AF. [facility] felt that her AF was triggered by her cholecystitis. She was hospitalized from 08/19 to 08/29 and required MICU stay. They recommended observation from the standpoint of her heart rhythm. She did not have a strong indication for antiarrhythmic drug therapy, catheter ablation, or pacemakerimplantation at this time. She may benefit from consideration of anticoagulation for atrial fibrillation stroke prevention when this is felt to be feasible from the standpoint of her acute cholecystitis and possible need for further invasive therapy for this. If atrial fibrillation continues to be b othersome, amiodarone could be considered. She was dismissed 08/30/2023. Since then, she has been evaluated by Kayli Llanes APRN on 09/06/2023 to whom she mentioned that she HR has been in the 40s. She was currently wearing a Breeze monitor.She had the cardiology follow-up arranged to follow up on the monitor results. 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 Side by side comparison of images performed. Findings Echo performed at the patient's bedside. The scope of this echocardiogram was limited to assessmentof pericardial effusion. Recommend a future complete echocardiogram if clinically indicated. Since dismissal from the hospital on 08/30/2023, she has been slowly gaining her strength. She is now able to use a walker inside the house and walk around minimally. She feels very tired but otherwise she feels relatively well. She is now eating some but still on tube feeds. She has had a little bit of dyspnea on exertion but no chest discomfort, palpitations, presyncope, syncope, or lower extremity edema. No PND or orthopnea. She says that when she is at rest her heart rate can be in the low 40s to 50s but when she gets up and go, the heart rate increases. She is still wearing a cut off saw grader and she thought that the appointment was for her to meet theyoga instructor. 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; 2nd kidney transplant from living unrelated donor through the paired kidney exchange on June 21, 2016 #4 Severe transplant glomerulopathy #5 History class 2 DSA #7 Chronic immunosuppression #5 PEDRITO, likely prerenal azotemia and tacrolimus toxicity-improved #6 Cholecystitis s/p percutaneous cholecystostomy tube placement #7 Acute hypoxic respiratory failure secondary to pleural effusion s/p thoracentesis #8 Afib not on anticoagulation #9 HFpEF (EF 54%) #10 Chronic malnutrition with BMI of 18 #11 Hypertension #12 Anemia The following portions of the patient's history were reviewed and updated as appropriate: allergies, current medications, family history, medical history, social history, surgical history, psychiatric history, substance abuse history, problem list, labs, diagnostics tests. I also reviewed pertinentclinical notes in the electronic health record. FAMILY HISTORY There is no known family issue with the health issue under consideration today except as stated in the HPI. REVIEW OF SYSTEMS A comprehensive review of systems was completed; pertinent abnormalities are included in the History of Present Illness, all others negative. MEDICATIONS Current Medications: acetaminophen (TYLENOL) 500 mg tablet, Take 2 tablets (1,000 mg total) by mouth 2 (two) times a day. amiodarone (PACERONE) 200 mg tablet, Take 1 tablet (200 mg total) by mouth daily. amLODIPine (NORVASC) 10 mg tablet, Take 1 tablet (10 mg total) by mouth daily. aspirin 81 mg chewable tablet, Chew 1 tablet (81 mg total) daily. atorvastatin (LIPITOR) 80 mg tablet, Take [...] Order - for details see Order Report jxmnvm-njbvwxfu-jvhmerv (CREON) 36,000-114,000-180,[address] capsule, Take 36,000 Units of lipase by mouth 4 (four) times a day. bkojoweowadr-rmyk-SL-Ca-minerals (THERAPEUTIC-M) 400 mcg (folic acid) per tablet, Take 1 tablet by mouth daily. mycophenolate (CELLCEPT) 250 mg capsule, Take 2 capsules (500 mg total) by mouth 2 (two) times a day. Do not break, cut, or open capsules. ondansetron ODT (ZOFRAN-ODT) 4 mg disintegrating tablet, Dissolve 1 tablet (4 mg total) in the mouth every 6 (six) hours as needed for nausea or vomiting. pantoprazole (PROTONIX) 40 mg EC tablet, Take 1 tablet (40 mg total) by mouth 2 (two) times a day before breakfast and dinner. predniSONE (DELTASONE) 5 mg tablet, TAKE 1 TABLET(5 MG) BY MOUTH DAILY selenium 50 mcg tablet, Take 3 tablets (150 mcg total) by mouth daily. sertraline (ZOLOFT) 25 mg tablet, Take 1 tablet (25 mg total) by mouth daily. sodium chloride 0.9 % injection, 5 mL 2 (two) times a day. tacrolimus (PROGRAF) 0.5 mg capsule, Place 1 capsule (0.5 mg total) under the tongue 2 (two) times a day. zinc sulfate (ZINCATE) 220 (50 mg zinc) capsule, Take 1 capsule (220 mg total) by mouth 2 (two) times a day with meals. VITALS BP 147/69 (BP Location: Left arm, Patient Position: Sitting, Cuff Size: Small) Pulse (!) 56 Ht 164.4 cm Wt 40.8 kg BMI 15.10 kg/m?? PHYSICAL EXAMINATION General: No apparent distress. Head: Normocephalic, atraumatic. Eyes: Conjunctiva normal. Nonicteric sclerae. Vessels: JVP normal. Normal carotid upstroke bilaterally without bruits. Radial, brachial, femoral,popliteal, DP and PT pulses normal bilaterally. Heart: Regular rate and rhythm without murmurs or gallops. Lungs: Clear to auscultation. Abdomen: Soft, nontender. No hepatosplenomegaly or masses. Extremities: No cyanosis, clubbing or peripheral edema. Skin: No stasis dermatitis or ulceration of the lower extremities.Superficial excoriations. Bruising of skin throughout. Neuro: Alert and oriented to person, place, and time. Able to provide chronological history. Psychiatric: Full range affect. DIAGNOSTIC REVIEW All labs and diagnostic studies were reviewed. Pertinent labs include Lab Results Component Value Date/Time CREATININE 1.74 (H) 09/06/2023 08:34 AM CREATININE 1.58 (H) 08/30/2023 07:42 AM CREATININE 1.35 (H) 08/29/2023 07:58 AM CREATININE 2.05 (H) 08/22/2023 09:49 AM CREATININE 1.01 06/26/2023 08:07 PM CREATININE 1.09 (H) 06/23/2023 03:52 PM HGB 7.8 (L) 09/06/2023 11:44 AM HGB 9.3 (L) 08/30/2023 04:11 PM HGB 8.9 (L) 08/30/2023 07:42 AM HGB 10.0 (L) 05/30/2023 12:14 PM HGB 9.2 (L) 05/30/2023 03:42 AM HGB 9.3 (L) 05/29/2023 06:51 PM PLT 364 09/06/2023 11:44 AM PLT 469 (H) 08/30/2023 07:42 AM PLT 497 (H) 08/29/2023 07:58 AM CHOL 90 08/23/2023 03:53 PM CHOL 142 01/05/2021 08:11 AM CHOL 146 08/16/2020 09:13 AM CHOL 222 (H) 05/13/2018 08:05 AM TRIG 101 08/23/2023 03:53 PM TRIG 118 05/23/2023 03:45 AM TRIG 113 05/21/2023 04:23 AM TRIG 268 (H) 08/16/2020 09:13 AM HDL 33 (L) 08/23/2023 03:53 PM HDL 36 (L) 01/05/2021 08:11 AM HDL 36 (L) 08/16/2020 09:13 AM HDL 36 (L) 05/13/2018 08:05 AM LDLCALC 38 08/23/2023 03:53 PM LDLCALC 56 01/05/2021 08:11 AM LDLCALC 56 08/16/2020 09:13 AM LDLCALC 119 05/13/2018 08:05 AM LDLCALC 85 07/02/2017 07:53 AM NTPROBNP 7340 (H) 08/20/2023 08:46 PM NTPROBNP 54038 (H) 06/17/2023 07:21 PM NTPROBNP 56910 (H) 05/20/2023 03:34 AM 6HTROPOT 85 (H) 08/23/2023 06:38 PM 6HTROPOT CANCELED 08/23/2023 01:28 AM ASSESSMENT / PLAN 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; 2nd kidney transplant from living unrelated donor through the paired kidney on June 21, 2016 #4 Severe transplant glomerulopathy #5 History class 2 DSA #6 Chronic immunosuppression #7 PEDRITO, likely prerenal azotemia and tacrolimus toxicity-improved #8 Cholecystitis s/p percutaneous cholecystostomy tube placement #9 Acute hypoxic respiratory failure secondary to pleural effusion s/p thoracentesis #10 Afib not on anticoagulation #11 HFpEF (EF 54%) #12 Chronic malnutrition with BMI of 18 #13 Hypertension #14 Anemia We are awaiting cut off saw grader results - she has just turned it on after our visit. She is improving clinically with time. There has been no significant symptoms since she was dismissed from the ED.Given all of her comorbidities, a conservative approach would likely have lower risk. The concern from her standpoint has been bradycardia so we need to see the monitor. Other issues are stable. I answered questions. PATIENT EDUCATION Ready to learn, no apparent learning barriers were identified; learning preferences include listening. Explained diagnosis and treatment plan; patient expressed understanding of the content. Kalyn Mann M.D. 09/09/2023 documented in this encounter Plan of Treatment Upcoming Encounters Date Type Department Care Team (Latest Contact Info) Description 01/03/2024 2:15 PM CDT Clinical Communication Virtual Review in [place], [place] [address] [place] [phone] 01/07/2024 3:00 PM CDT Office Visit Division of Gastroenterology in [place], [place] [address] [place] [phone] Hank Garner Jr., M.D. [address] [place] [phone] documented as of this encounter Visit Diagnoses Diagnosis Tachy Bennie Syndrome (HCC) documented in this encounter Additional Health Concerns Infection Onset Date Last Indicated Resolved Time Protective Environment 09/03/2022 09/03/2022 Assessment Noted Time PHQ-9 Depression Total Score: 0 07/11/19 17 12:26 PM SUPERVISOR HARD CANDY documented as of this encounter Care Teams Apparatus Lineman Relationship Specialty Start Date End Date Elsewhere, Pcp PCP - General Internal Medicine 05/08/23 [facility] Laboratory Medicine 04/07/20 documented as of this encounter
--- OUTSIDE RECORDS SUMMARY | 2023-11-23 13:22 | XMS_ITS | Encounter Summary ---
Author Organization [facility] Address [address] [place] [address] Care Team Providers Care Full Service Supervisor Name Role Phone Elsewhere, Pcp Primary Care Provider Unavailabl e Reason for Visit * Reason Comments Med Refill Encounter Details Date Type Department Care Team (Late st Contact Info) Description 09/13/2023 Refill Division of Community Internal Medicine, [facility] in [place], [place] [address] [place] [phone] Tammy Moreira M.D. [address] [place] [phone] Med Refill Social History Tobacco Use Types Packs/Day Years Used Date Smoking Tobacco: Former Cigarettes Smokeless Tobacco: Never Alcohol Use Standard Drinks/Week Comments Not Currently 0 (1 standard drink = 0.6 oz pur e alcohol) [facility] Utilities Answer Date Recorded In the past 12 months has [employer], gas, oil, or water [employer] threatened to shut off services in your [...] your living situation today? I have a [facility] place to live 09/19/2023 Sex and Gender Information Value Date Recorded Sex Assigned at Female 05/14/2018 2:49 PM PIN MACHINE TENDER Gender Identity Female 05/14/2018 2:49 PM PIN MACHINE TENDER Sexual Orientation Straight 05/14/2018 2: 49 PM PIN MACHINE TENDER documented as of this encounter Miscellaneous Notes * Telephone Encounter - Jonathan Rosenthal R.N., C.C.T.C. - 09/13/2023 12:05 PM CDT Not a transplant medication. Needs to be filled by previous prescriber. documented in this encounter Plan of Treatment Upcoming Encounters Date Type Department Care Team (Latest Contact Info) Description 01/03/2024 2:15 PM CDT Clinical Communication Virtual Review in [place], [place] [address] [place] [phone] 01/07/2024 3:00 PM CDT Office Visit Division of Gastroenterology in [place], [place] [address] [place] [phone] Hank Garner Jr., M.D. [address] [place] [phone] documented as of this encounter Visit Diagnoses Not on filedocumented in this encounter Additional Health Concerns Infection Onset Date Last Indicated Resolved Time Protective Environment 09/03/2022 09/03/2022 C. difficile 09/21/2023 09/21/2023 10/19/2023 5:38 AM CDT Assessment Noted Time PHQ-9 Depression Total Score: 0 07/11/19 17 12:26 PM PIN MACHINE TENDER documented as of this encounter Care Teams Full Service Supervisor Relationship Specialty Start Date End Date Elsewhere, Pcp PCP - General Internal Medicine 05/08/23 [facility] Laboratory Medicine 04/07/20 documented as of this encounter
--- OUTSIDE RECORDS SUMMARY | 2023-11-23 13:22 | XMS_ITS | Encounter Summary ---
Author Organization [facility] Address [address] [place] [address] Care Team Providers Care Insurance Loss Assessor Name Role Phone Elsewhere, Pcp Primary Care Provider Unavailabl e Encounter Details Date Type Department Care Team (Late st Contact Info) Description 09/20/2023 9:30 AM CDT Ancillary Procedure Department of Nursing Social History Tobacco Use Types Packs/Day Years Used Date Smoking Tobacco: Former Cigarettes Smokeless Tobacco: Never Alcohol Use Standard Drinks/Week Comments Not Currently 0 (1 standard drink = 0.6 oz pur e alcohol) [facility] Utilities Answer Date Recorded In the [...] your living situation today? I have a [facility] place to live 09/19/2023 Sex and Gender Information Value Date Recorded Sex Assigned at Female 05/14/2018 2:49 PM GREETER GUEST SERVICES Gender Identity Female 05/14/2018 2:49 PM GREETER GUEST SERVICES Sexual Orientation Straight 05/14/2018 2: 49 PM GREETER GUEST SERVICES documented as of this encounter Plan of Treatment Upcoming Encounters Date Type Department Care Team (Latest Contact Info) Description 01/03/2024 2:15 PM CDT Clinical Communication Virtual Review in [place], [place] 200 [place] [address] 01/07/2024 3:00 PM CDT Office Visit Division of Gastroenterology in [place], [place] [address] [place] [phone] Hank Garner Jr., M.D. [address] [place] [phone] documented as of this encounter Procedures Procedure Name Priority Date/Time Associated Diagnosis Comments NURSING IMAGE EXAM Routine 09/20/2023 9: 28 AM CDT documented in this encounter Results * Leg, right-Nursing Image Exam (09/20/2023 9:28 AM CDT) 09/20/2023 9:25 AM CDT Narrative [...] Total Score: 0 07/11/19 17 12:26 PM GREETER GUEST SERVICES documented as of this encounter Care Teams Insurance Loss Assessor Relationship Specialty Start Date End Date Elsewhere, Pcp PCP - General Internal Medicine 05/08/23 [facility] Laboratory Medicine 04/07/20 documented as of this encounter
--- OUTSIDE RECORDS SUMMARY | 2023-11-23 13:23 | XMS_ITS | Encounter Summary ---
Author Organization [facility] Address [address] [place] [address] Care Team Providers Care Crumb Packer Name Role Phone Elsewhere, Pcp Primary Care Provider Unavailabl e Encounter Details Date Type Department Care Team (Late st Contact Info) Description 08/30/2023 11:50 AM CDT Ancillary Procedure Department of Internal Medicine Social History Tobacco Use Types Packs/Day Years Used Date Smoking Tobacco: Light Smoker Smokeless Tobacco: Never Alcohol Use Standard Drinks/Week Comments Not Currently 0 (1 standard drink = 0.6 oz pur e alcohol) [facility] Utilities Answer Date Recorded In the [...] your living situation today? I have a [facility] place to live 08/20/2023 Sex and Gender Information Value Date Recorded Sex Assigned at Female 05/14/2018 2:49 PM RESIDENT CARE MANAGER RN Gender Identity Female 05/14/2018 2:49 PM RESIDENT CARE MANAGER RN Sexual Orientation Straight 05/14/2018 2: 49 PM RESIDENT CARE MANAGER RN documented as of this encounter Plan of Treatment Upcoming Encounters Date Type Department Care Team (Latest Contact Info) Description 01/03/2024 2:15 PM CDT Clinical Communication Virtual Review in [place], [place] 200 [place] [address] 01/07/2024 3:00 PM CDT Office Visit Division of Gastroenterology in [place], [place] [address] [place] [phone] Hank Garner Jr., M.D. [address] [place] [phone] documented as of this encounter Procedures Procedure Name Priority Date/Time Associated Diagnosis Comments INTERNAL MEDICINE IMAGE EXAM Routine 08/30/2023 11:50 AM CDT documented in this encounter Results * Abdomen-Internal Medicine Image Exam (08/30/2023 11:50 AM CDT) 08/30/2023 11:4 8 AM CDT Narrative IIMS [...] Total Score: 0 07/11/19 17 12:26 PM RESIDENT CARE MANAGER RN documented as of this encounter Care Teams Crumb Packer Relationship Specialty Start Date End Date Elsewhere, Pcp PCP - General Internal Medicine 05/08/23 [facility] Laboratory Medicine 04/07/20 documented as of this encounter
--- OUTSIDE RECORDS SUMMARY | 2023-11-23 13:23 | XMS_ITS | Encounter Summary ---
Author Organization [facility] Address [address] [place] [address] Care Team Providers Care Director Of Retail Merchandising Name Role Phone Elsewhere, Pcp Primary Care Provider Unavailabl e Reason for Referral * Transplant (Routine) - Authorized Specialty Diagnoses / Procedures Referred By Willy jack Referred To Contact Transplant Peyton Cheng APRN, C.N.P., D.N.P. [address] [place] [phone] [facility] Referral ID Status Reason Start Date Expiration Date V isits Requested Visits Authorized [id number] Authorized 09/06/2023 03/07/2025 1 1 Reason for Visit * Reason Comments Post Hospital Follow-up * Transplant (Routine) - Closed Specialty Diagnoses / Procedures Referred By Willy jack Referred To Contact Transplant Diagnoses Transplant Renal (HCC) Daysi Mariano M.D. [address] [place] [phone] [facility] Referral ID Status Reason Start Date Expiration Date Visits Re quested Visits Authorized [id number] Closed 08/30/2023 02/28/2025 1 1 Encounter Details Date Type Department Care Team (Latest Contact Info) Description 09/06/2023 10:30 AM CDT Office Visit [facility] in [place], [place] [address] [place] [phone] Peyton Cheng APRN, C.N.P., D.N.P. [address] [place] [address] Transplant Renal (HCC) (Primary Dx); Immunodeficiency (HCC); Medication Therapy Intermediate Not Anticoagulant Social History Tobacco Use Types Packs/Day Years Used Date Smoking Tobacco: Former Cigarettes Smokeless Tobacco: Never Alcohol Use Standard Drinks/Week Comments Not Currently 0 (1 standard drink = 0.6 oz pur e alcohol) [facility] Utilities Answer Date Recorded In the past 12 months has e [employer], gas, oil, or water [employer] threatened to shut off services in your [...] your living situation today? I have a [facility] place to live 08/20/2023 Sex and Gender Information Value Date Recorded Sex Assigned at Female 05/14/2018 2:49 PM WASTEWATER TREATMENT OPERATOR Gender Identity Female 05/14/2018 2:49 PM WASTEWATER TREATMENT OPERATOR Sexual Orientation Straight 05/14/2018 2: 49 PM WASTEWATER TREATMENT OPERATOR documented as of this encounter Last Filed Vital Signs Vital Sign Reading Time Taken Comments Blood Pressure 141/55 09/06/2023 10:29 AM CDT Pulse 39 09/06/2023 10:29 AM CDT Temperature 35.5 ??C (95.9 ??F) 09/06/2023 10:06 AM C DT Respiratory Rate - - Oxygen Saturation - - Inhaled Oxygen Concentration - - Weight 42.5 kg (93 lb 11.1 oz) 09/06/2023 10:06 AM CDT Height - - Body Mass Index 15.59 08/26/2023 2:24 PM CDT documented in this encounter Patient Instructions * Patient Instructions* Peyton Cheng APRN C.N.P., D.N.P. - 09/06/2023 10:30 AM CDT Restart Cellcept at dose of 500 mg twice daily. Recheck labs in 2 weeks. If stable, monthly. documented in this encounter Progress Notes * Peyton Cheng APRN C.N.P., D.N.P. - 09/06/2023 10:30 AM CDT SUBJECTIVE REASON FOR VISIT Follow-up after recent hospitalization for cholecystitis; immunosuppression management Supervised by: Dr. Ruth Velez MD HISTORY OF PRESENT ILLNESS Ms. Galvan is a very pleasant 68-year-old female, accompanied by her , who presents for hospital follow-up after recent hospitalization for cholecystitis, cholecystostomy tube placement complicated by respiratory distress and atrial fibrillation. During her hospitalization CellCept was held starting on 08/21/2023. Tacrolimus goal level was reduced to 4-6. She had another prolonged hospitalization from 05/08/2023 to 07/16/2023 for abdominal pain, chronic mesenteric ischemia, peg tube placement complicated by peritonitis, PEDRITO, and respiratory failure. She had a peak creatinine of 2.8 mg /dL during that hospitalization. 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 Today, she denies any infectious symptoms. Her heart rate has been running in the 40s and she has cardiology follow-up scheduled. 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 Please see HPI. ASSESSMENT / PLAN #1 End-stage renal disease secondary to some [...] secondary to pleural effusion s/p thoracentesis #8 AFib not on anticoagulation #9 HFpEF (EF 54%) #10 Chronic malnutrition with BMI of 18 Her creatinine has returned near her baseline at 1.74 mg/dL. Tacrolimus level is pending. Goal range is 4-6. She has been off of CellCept since 08/21/2023. I reviewed the case in its entirety with Dr. Velez. Recommend restarting CellCept 500 mg twice daily. Will recheck her labs in 2 weeks. She willthen continue on monthly labs. ADDENDUM: Tacrolimus level continues to be low at 1.8. Recommend increasing tacrolimus dose to 1 mgtwice daily. Will recheck labs in 2 weeks. #11 Hypertension Blood pressure is near goal. She states that blood pressures have been running lower at home. She continues on amlodipine. #12 Bradycardia She states that her heart rate has been running in the 40s. She is currently wearing a [employer] monitor. She has cardiology follow-up; appreciate their recommendations. Case reviewed with Dr. Velez. All questions and concerns were addressed. The patient and her husbanddemonstrated understanding and is in agreement with the plan. FOLLOW UP Next office visit: Annual visit (no biopsy). Tests for follow-up visit (in addition to standard tests): Vascular Medicine Laboratory monitoring frequency: Recheck labs in 2 weeks. Then monthly labs. Other labs needed: Albumin creatinine ratio Tacrolimus goal: 4-6 documented in this encounter Miscellaneous Notes * Addendum Note - Peyton Cheng APRN C.N.P., D.N.P. - 09/06/2023 10:30 AM CDTAddended by: PEYTON CHENG on: 09/12/2023 02:53 PM Modules accepted: Orders documented in this encounter Plan of Treatment Upcoming Encounters Date Type Department Care Team (Latest Contact Info) Description 01/03/2024 2:15 PM CDT Clinical Communication Virtual Review in [place], [place] 200 [place] [address] 01/07/2024 3:00 PM CDT Office Visit Division of Gastroenterology in [address] [phone] Hank Garner Jr., M.D. [address] [place] [phone] Scheduled Referrals Name Type Priority Associated Diagnoses Order Schedule Transplant Kidney office visit (clinic) General Outpatient Referral Routine Expected: 09/05/2024 (Approximate), Expires: 12/06/2024 documented as of this encounter Procedures Procedure Name Priority Date/Time Associated Diagnosis Comments HEPATIC FUNCTION PANEL, S Routine 09/06/2023 8:30 AM CDT Transplant Renal (HCC) documented in [...] 11:44 AM CDT 09/06/2023 12:19 PM CDT Peyton Cheng APRN, C.N.P., D.N.P. LAB BLOOD ADD-ON [facility] [address] [place] [address], [facility] DTL [facility] [address] [place] [address] * (ABNORMAL) CBC with Differential, Blood (09/06/2023 11:44 AM CDT) [facility] Hemoglobin 7.8(L) 11.6 - 15.0 g/dL 09/06/2023 [...] 11:44 AM CDT 09/06/2023 12:15 PM CDT Peyton Cheng APRN, C.N.P., D.N.P. LAB BLOOD ADD-ON [facility] [address] [place], [place] [address] DTL [facility] 200 [place] [address] [facility] 200 [place] [address] * (ABNORMAL) Hepatic Function Panel (09/06/2023 8:30 AM CDT) Bilirubin, Total, S 0.3 0.0 - 1.2 mg/dL 09/06/2023 11:23 AM CDT DTL Bilirubin, Direct, S <0.2 0.0 - 0.3 mg/dL 09/06/2023 11:23 AM CDT DTL Aspartate Aminotransferase (AST), S 35 8 - 43 U/L 09/06/2023 11:23 AM CDT DTL Alanine Aminotransferase (ALT), S 35 7 - 45 U/L 09/06/2023 11:23 AM CDT DTL Alkaline Phosphatase, S 97 35 - 104 U/L 09/06/2023 11:23 AM CDT DTL Albumin, S 3.3(L) 3.5 - 5.0 g/dL 09/06/2023 11:23 AM CDT DTL Protein, Total, S 6.9 6.3 - 7.9 g/dL 09/06/2023 11:23 AM CDT DTL Blood (Blood, Venous) 09/06/2023 8:30 AM CDT 09/06/2023 10:55 AM CDT Peyton Cheng APRN, C.N.P., D.N.P. LAB BLOOD ADD-ON [facility] 200 [place] [address], [facility] DTL [facility] 200 [place] [address] documented in this encounter Visit Diagnoses Diagnosis Transplant Renal (HCC)- Primary Immunodeficiency (HCC) Medication Therapy Third Rail Installer Not Anticoagulant documented in this encounter Additional Health Concerns Infection Onset Date Last Indicated Resolved Time Protective Environment 09/03/2022 09/03/2022 Assessment Noted Time PHQ-9 Depression Total Score: 0 07/11/19 17 12:26 PM WASTEWATER TREATMENT OPERATOR documented as of this encounter Care Teams Director Of Retail Merchandising Relationship Specialty Start Date End Date Elsewhere, Pcp PCP - General Internal Medicine 05/08/23 [facility] Laboratory Medicine 04/07/20 documented as of this encounter
--- OUTSIDE RECORDS SUMMARY | 2023-11-23 13:23 | XMS_ITS | Encounter Summary ---
Author Organization [facility] Address [address] [place] [address] Care Team Providers Care Assistant Track Coach Name Role Phone Elsewhere, Pcp Primary Care Provider Unavailabl e Reason for Referral * Outpatient (Routine) - Authorized Specialty Diagnoses / Procedures Referred By Contreece t Referred To Contact Radiology Diagnoses Cholecystitis Procedures IR Percutaneous Cholecystostomy Tube Exchange Gabrielle Hernandez M.D. [address] [place] [address] [facility] Referral ID Status Reason Start Date Expiration Date V isits Requested Visits Authorized [id number] Authorized 09/04/2023 09/03/2024 1 1 Encounter Details Date Type Department Care Team (Late st Contact Info) Description 09/04/2023 Orders Only [facility] [address] [place] [phone] Gabrielle Hernandez M.D. [address] [place] [address] Cholecystitis (Primary Dx) Social History Tobacco Use Types Packs/Day Years Used Date Smoking Tobacco: Light Smoker Smokeless Tobacco: Never Alcohol Use Standard Drinks/Week Comments Not Currently 0 (1 standard drink = 0.6 oz pur e alcohol) [facility] Utilities Answer Date Recorded In the [...] Sex Assigned at Female 05/14/2018 2:49 PM DATA EXAMINATION CLERK Gender Identity Female 05/14/2018 2:49 PM DATA EXAMINATION CLERK Sexual Orientation Straight 05/14/2018 2: 49 PM DATA EXAMINATION CLERK documented as of this encounter Plan of Treatment Upcoming Encounters Date Type Department Care Team (Latest Contact Info) Description 01/03/2024 2:15 PM CDT Clinical Communication Virtual Review in [place] [address] [place] [address] 01/07/2024 3:00 PM CDT Office Visit Division of Gastroenterology in [place], [place] [address] [place] [address] Hank Garner Jr., M.D. [address] [place] [address] Scheduled Orders Name Type Priority Associated Diagnoses Order Schedule IR Percutaneous Cholecystostomy Tube Exchange Imaging RAD - Routine (most inpatients and all outpatients) Cholecystitis Expected: 11/21/2023 (Approximate), Expires: 12/04/2024 documented as of this encounter Visit Diagnoses Diagnosis Cholecystitis- Primary documented in this encounter Additional Health Concerns Infection Onset Date Last Indicated Resolved Time Protective Environment 09/03/2022 09/03/2022 Assessment Noted Time PHQ-9 Depression Total Score: 0 07/11/19 17 12:26 PM DATA EXAMINATION CLERK documented as of this encounter Care Teams Assistant Track Coach Relationship Specialty Start Date End Date Elsewhere, Pcp PCP - General Internal Medicine 05/08/23 [facility] [place] Laboratory Medicine 04/07/20 documented as of this encounter
--- OUTSIDE RECORDS SUMMARY | 2023-11-23 13:23 | XMS_ITS | Encounter Summary ---
Author Organization [facility] Address [address] [place] [address] Care Team Providers Care Smearer Name Role Phone Elsewhere, Pcp Primary Care Provider Unavailabl e Reason for Referral * Outpatient (Routine) - Authorized Specialty Diagnoses / Procedures Referred By Willy t Referred To Contact Pulmonary Medicine Estephanie Lewis M.D. [address] [place] [phone] [facility] Referral ID Status Reason Start Date Expiration Date V isits Requested Visits Authorized [id number] Authorized 09/02/2023 03/03/2025 1 1 Scheduling Instructions Pleural clinic Reason for Visit * Reason Onset Date Comments Post Hospital Follow-up 09/02/2023 Encounter Details Date Type Department Care Team (Latest Contact Info) Description 09/02/2023 Clinical Communication [facility] [address] [place] [phone] Estephanie Lewis M.D. [address] [place] [phone] Post Hospital Follow-up Social History Tobacco Use Types Packs/Day Years Used Date Smoking Tobacco: Light Smoker Smokeless Tobacco: Never Alcohol Use Standard Drinks/Week Comments Not Currently 0 (1 standard drink = 0.6 oz pur e alcohol) [facility] Utilities Answer Date Recorded In the past [...] your living situation today? I have a [facility] place to live 08/20/2023 Sex and Gender Information Value Date Recorded Sex Assigned at Female 05/14/2018 2:49 PM HOME COMFORT ADVISOR Gender Identity Female 05/14/2018 2:49 PM HOME COMFORT ADVISOR Sexual Orientation Straight 05/14/2018 2: 49 PM HOME COMFORT ADVISOR documented as of this encounter Plan of Treatment Upcoming Encounters Date Type Department Care Team (Latest Contact Info) Description 01/03/2024 2:15 PM CDT Clinical Communication Virtual Review in [place], [place] [address] [place] [address] 01/07/2024 3:00 PM CDT Office Visit Division of Gastroenterology in [place], [place] [address] [place] [address] Hank Garner Jr., M.D. [address] [place] [address] Scheduled Referrals Name Type Priority Associated Diagnoses Orde r Schedule Pulmonary Medicine office visit (clinic) Outpatient Referral Routine Expected: 09/03/2023, Expires: 12/01/2024 documented as of this encounter Visit Diagnoses Not on filedocumented in this encounter Additional Health Concerns Infection Onset Date Last Indicated Resolved Time Protective Environment 09/03/2022 09/03/2022 Assessment Noted Time PHQ-9 Depression Total Score: 0 07/11/19 17 12:26 PM HOME COMFORT ADVISOR documented as of this encounter Care Teams Smearer Relationship Specialty Start Date End Date Elsewhere, Pcp PCP - General Internal Medicine 05/08/23 [facility] Laboratory Medicine 04/07/20 documented as of this encounter
--- OUTSIDE RECORDS SUMMARY | 2023-11-23 13:23 | XMS_ITS | Encounter Summary ---
Author Organization [facility] Address [address] [place] [address] Care Team Providers Care Plant Tech Name Role Phone Elsewhere, Pcp Primary Care Provider Unavailabl e Encounter Details Date Type Department Care Team (Late st Contact Info) Description 08/30/2023 9:00 AM CDT Ancillary Procedure Department of Internal Medicine Social History Tobacco Use Types Packs/Day Years Used Date Smoking Tobacco: Light Smoker Smokeless Tobacco: Never Alcohol Use Standard Drinks/Week Comments Not Currently 0 (1 standard drink = 0.6 oz pur e alcohol) [facility] Utilities Answer Date Recorded In the [...] your living situation today? I have a [facility] place to live 08/20/2023 Sex and Gender Information Value Date Recorded Sex Assigned at Female 05/14/2018 2:49 PM TEA PLANTATION WORKER Gender Identity Female 05/14/2018 2:49 PM TEA PLANTATION WORKER Sexual Orientation Straight 05/14/2018 2: 49 PM TEA PLANTATION WORKER documented as of this encounter Plan of Treatment Upcoming Encounters Date Type Department Care Team (Latest Contact Info) Description 01/03/2024 2:15 PM CDT Clinical Communication Virtual Review in [place], [place] 200 [place] [address] 01/07/2024 3:00 PM CDT Office Visit Division of Gastroenterology in [place], [place] [address] [place] [phone] Hank Garner Jr., M.D. [address] [place] [phone] documented as of this encounter Procedures Procedure Name Priority Date/Time Associated Diagnosis Comments INTERNAL MEDICINE IMAGE EXAM Routine 08/30/2023 8:59 AM CDT documented in this encounter Results * Abdomen-Internal Medicine Image Exam (08/30/2023 8:59 AM CDT) 08/30/2023 8:56 AM CDT Narrative IIMS - 08/30/2023 8:59 AM CDT This order has been created [...] Total Score: 0 07/11/19 17 12:26 PM TEA PLANTATION WORKER documented as of this encounter Care Teams Plant Tech Relationship Specialty Start Date End Date Elsewhere, Pcp PCP - General Internal Medicine 05/08/23 [facility] Laboratory Medicine 04/07/20 documented as of this encounter
--- OUTSIDE RECORDS SUMMARY | 2023-11-23 13:23 | XMS_ITS | Encounter Summary ---
Author Organization [facility] Address [address] [place] [address] Care Team Providers Care Precision Machine Operator Name Role Phone Elsewhere, Pcp Primary Care Provider Unavailabl e Encounter Details Date Type Department Care Team (Latest Contact Info) Description 08/30/2023 7:15 AM CDT - 08/30/2023 11:59 PM CDT Hospital Encounter Division of Cardiovascular Diseases in [place], [place] [address], [place] [phone] Gabrielle Hernandez M.D. [address] [place] [phone] Discharge Disposition: Home or Self Care Social History Tobacco Use Types Packs/Day Years Used Date Smoking Tobacco: Light Smoker Smokeless Tobacco: Never Alcohol Use Standard Drinks/Week Comments Not Currently 0 (1 standard drink = 0.6 oz pur e alcohol) [facility] Utilities Answer Date Recorded In the past 12 months has [employer], gas, oil, or water [employer] threatened to shut off services in your [...] living situation today? I have a [facility] place to live 08/20/2023 Sex and Gender Information Value Date Recorded Sex Assigned at Female 05/14/2018 2:49 PM LEAF SORTER Gender Identity Female 05/14/2018 2:49 PM LEAF SORTER Sexual Orientation Straight 05/14/2018 2: 49 PM LEAF SORTER documented as of this encounter Medications at Time of Discharge Medication Sig Dispensed Refills Start Date End Date predniSONE (DELTASONE) 5 mg tabletIndications:Trans plant Renal (HCC),High Risk Medication TAKE 1 TABLET(5 MG) BY MOUTH DAILY 90 tablet 3 07/10/2023 acetaminophen (TYLENOL) 500 mg tablet Take 2 [...] to coccyx. 30 g 2 07/17/2023 DME OxygenIndications:Acute Respiratory Failure With Hypoxia (HCC) DME Order - for details see Order Report 1 each 08/30/2023 wecrdl-ilduhlac-wrhuhnb (CREON) 36,000-114,000-180,[address] capsule Take 36,000 Units of lipase by mouth 4 (four) times a day. cftslwngynsc-mwhj-LE-Ca -minerals (THERAPEUTIC-M) 400 mcg (folic acid) per tablet [...] day as needed for diarrhea. 08/30/2023 09/24/2023 mycophenolate (CELLCEPT) 250 mg capsuleIndications:Salter splant Renal (HCC),Immunodeficiency (HCC),Medication Therapy [facility] Not Anticoagulant HOLD UNTIL FOLLOW UP WITH NEPHROLOGY 09/05 Do not break, cut, or open capsules. 08/30/2023 09/06/2023 pantoprazole (PROTONIX) 40 mg EC tablet Take [...] PM CDT Clinical Communication Virtual Review in [address] [phone] 01/07/2024 3:00 PM CDT Office Visit Division of Gastroenterology in [address] [phone] Hank Garner Jr., M.D. [address] [place] [phone] documented as of this encounter Procedures Procedure Name Priority Date/Time Associated Diagnosis Comments ECG AMBULATORY REAL TIME CARDIAC MONITORING - HOSPITAL HOOKUP Routine 09/12/2023 12:28 PM CDT Atrial Fibrillation Personal History Tachy Bennie Syndrome (HCC) documented in this encounter Results * ECG AMBULATORY REAL TIME CARDIAC MONITORING - HOSPITAL HOOKUP (09/12/2023 12:28 PM CDT) Min Heart Rate 38 bpm INFOBIONIC MOME [...] Duration 0 sec duration INFOBIONIC MOME [employer] [place] 0% percent INFOBIONIC MOME [place] Runs 0 [...] patient did not record any symptomatic events. Corrugator Operator Helper: ANA Bhagat / ANA Kumari Procedure Note [...] patient did not record any symptomatic events. Corrugator Operator Helper: ANA Bhagat / ANA Kumari Gabrielle Hernandez M.D. [facility] SERVICES PROCEDURES INFOBIONIC MOME NA documented in this encounter Visit Diagnoses Not on filedocumented in this encounter Additional Health Concerns Infection Onset Date Last Indicated Resolved Time Protective Environment 09/03/2022 09/03/2022 Assessment Noted Time PHQ-9 Depression Total Score: 0 07/11/19 17 12:26 PM LEAF SORTER documented as of this encounter Care Teams Precision Machine Operator Relationship Specialty Start Date End Date Elsewhere, Pcp PCP - General Internal Medicine 05/08/23 [facility] Laboratory Medicine 04/07/20 documented as of this encounter
--- OUTSIDE RECORDS SUMMARY | 2023-11-23 13:23 | XMS_ITS | Encounter Summary ---
Author Organization [facility] Address [address] [place] [address] Care Team Providers Care Outsewer Name Role Phone Elsewhere, Pcp Primary Care Provider Unavailabl e Reason for Referral * Transplant (Routine) - Closed Specialty Diagnoses / Procedures Referred By Willy t Referred To Contact Transplant Diagnoses Transplant Renal (HCC) Daysi Mariano M.D. [address] [place] [phone] [facility] Referral ID Status Reason Start Date Expiration Date Visits Re quested Visits Authorized [id number] Closed 08/30/2023 02/28/2025 1 1 Scheduling Instructions [facility] Hospital Follow Up in Transplant Clinic w/labs per Dr. Mariano Reason for Visit * Reason Onset Date Comments Pre-visit Testing Orders 08/30/2023 Encounter Details Date Type Department Care Team (Latest Contact Info) Description 08/30/2023 Clinical Communication [facility] [address] [place] [phone] Daysi Mariano M.D. [address] [place] [phone] Pre-visit Testing Orders Social History Tobacco Use Types Packs/Day Years Used Date Smoking Tobacco: Light Smoker Smokeless Tobacco: Never Alcohol Use Standard Drinks/Week Comments Not Currently 0 (1 standard drink = 0.6 oz pur e alcohol) [facility] Utilities Answer Date Recorded In the past 12 months has th e electric, gas, oil, or water [employer] threatened to shut off services in your [...] your living situation today? I have a [facility] place to live 08/20/2023 Sex and Gender Information Value Date Recorded Sex Assigned at Female 05/14/2018 2:49 PM INTERNAL CONTROL CONSULTANT Gender Identity Female 05/14/2018 2:49 PM INTERNAL CONTROL CONSULTANT Sexual Orientation Straight 05/14/2018 2: 49 PM INTERNAL CONTROL CONSULTANT documented as of this encounter Plan of Treatment Upcoming Encounters Date Type Department Care Team (Latest Contact Info) Description 01/03/2024 2:15 PM CDT Clinical Communication Virtual Review in [place], [place] 200 [place] [address] 01/07/2024 3:00 PM CDT Office Visit Division of Gastroenterology in [place], [place] [address] [place] [phone] Hank Garner Jr., M.D. [address] [place] [phone] Scheduled Referrals Name Type Priority Associated Diagnoses Order Schedule Transplant - Kidney and pancreas consult (clinic) Outpatient Referral Routine Transplant Renal (HCC) Expected: 09/13/2023, Expires: 11/28/2024 documented as of this encounter Results * (ABNORMAL) Basic Metabolic [...] CDT Daysi Mariano M.D. LAB BLOOD ADD-ON Performing Organization Address City/[facility]/ZIP Co de Phone Number [facility] [address] [place] [address], [place] DTL [facility] [address] [place] [address] * (ABNORMAL) Tacrolimus, Trough (09/06/2023 8:34 AM CDT) Tacrolimus, Trough 1.8(L) 5.0-15.0 (Trough) ng/mL 09/06/2023 2:42 PM CDT [facility] Comment: ----ADDITIONAL INFORMATION---- Target steady-state trough concentrations vary depending on the type of transplant, concomitant immunosuppression, clinical/institutional protocols, and time post-transplant. Results should be interpreted in conjunction with this clinical information and any physical signs/symptoms of rejection/toxicity. Testing performed by Liquid Chromatography-Tandem Mass Spectrometry (LC-MS/MS). This test was developed and its performance characteristics determined by [facility] in a manner consistent with CLIA requirements. This test has not been cleared or approved by the U.S. Food and Drug Administration. Blood (Blood, Venous) 09/06/2023 8:34 AM CDT 09/06/2023 10:51 AM CDT Daysi Mariano M.D. LAB BLOOD NON ADD-ON [facility] [place] [address] [place] [address] [facility] [address] [place] [address] [place] [address] documented in this encounter Visit Diagnoses Diagnosis Transplant Renal (HCC)- Primary documented in this encounter Additional Health Concerns Infection Onset Date Last Indicated Resolved Time Protective Environment 09/03/2022 09/03/2022 Assessment Noted Time PHQ-9 Depression Total Score: 0 07/11/19 17 12:26 PM INTERNAL CONTROL CONSULTANT documented as of this encounter Care Teams Outsewer Relationship Specialty Start Date End Date Elsewhere, Pcp PCP - General Internal Medicine 05/08/23 [facility] Laboratory Medicine 04/07/20 documented as of this encounter
--- OUTSIDE RECORDS SUMMARY | 2023-11-23 13:23 | XMS_ITS | Encounter Summary ---
Author Organization [facility] Address [address] [place] [phone] Care Team Providers Care Master Cook Name Role Phone Elsewhere, Pcp Primary Care Provider Unavailabl e Encounter Details Date Type Department Care Team (Late st Contact Info) Description 08/30/2023 Orders Only Division of Pulmonary Medicine in [place], [place] [address] [place] [phone] Glen Gayle M.D. [address] [place] [phone] Social History Tobacco Use Types Packs/Day Years Used Date Smoking Tobacco: Light Smoker Smokeless Tobacco: Never Alcohol Use Standard Drinks/Week Comments Not Currently 0 (1 standard drink = 0.6 oz pur e alcohol) [place] Utilities Answer Date Recorded In the past 12 months has [facility] [employer], gas, oil, or water [employer] threatened to shut off services in your [...] your living situation today? I have a [facility] place to live 08/20/2023 Sex and Gender Information Value Date Recorded Sex Assigned at Female 05/14/2018 2:49 PM LOADER DEMOLDER Gender Identity Female 05/14/2018 2:49 PM LOADER DEMOLDER Sexual Orientation Straight 05/14/2018 2: 49 PM LOADER DEMOLDER documented as of this encounter Plan of Treatment Upcoming Encounters Date Type Department Care Team (Latest Contact Info) Description 01/03/2024 2:15 PM CDT Clinical Communication Virtual Review in [place], [place] [address] [place] [phone] 01/07/2024 3:00 PM CDT Office Visit Division of Gastroenterology in [place], [place] [address] [place] [phone] Hank Garner Jr., M.D. [address] [place] [phone] documented as of this encounter Visit Diagnoses Not on filedocumented in this encounter Additional Health Concerns Infection Onset Date Last Indicated Resolved Time Protective Environment 09/03/2022 09/03/2022 Assessment Noted Time PHQ-9 Depression Total Score: 0 07/11/19 17 12:26 PM LOADER DEMOLDER documented as of this encounter Care Teams Master Cook Relationship Specialty Start Date End Date Elsewhere, Pcp PCP - General Internal Medicine 05/08/23 [facility] Laboratory Medicine 04/07/20 documented as of this encounter
--- OUTSIDE RECORDS SUMMARY | 2023-11-23 13:25 | XMS_ITS | Encounter Summary ---
Author Organization [facility] Address [address] [place] [address] Care Team Providers Care Machine Plaster Mixer Name Role Phone Elsewhere, Pcp Primary Care Provider Unavailabl e Encounter Details Date Type Department Care Team (Late st Contact Info) Description 08/22/2023 11:30 AM CDT Ancillary Procedure Department of Pulmonary and CC Medicine Social History Tobacco Use Types Packs/Day Years Used Date Smoking Tobacco: Light Smoker Smokeless Tobacco: Never Alcohol Use Standard Drinks/Week Comments Not Currently 0 (1 standard drink = 0.6 oz pur e alcohol) [facility] Utilities Answer Date Recorded In the [...] the money to buy more. Never true 04/16/20 24 Within the past 12 months, t [...] your living situation today? I have a [facility] place to live 08/20/2023 Sex and Gender Information Value Date Recorded Sex Assigned at Female 05/14/2018 2:49 PM ELEMENTARY CLASSROOM TEACHER Gender Identity Female 05/14/2018 2:49 PM ELEMENTARY CLASSROOM TEACHER Sexual Orientation Straight 05/14/2018 2: 49 PM ELEMENTARY CLASSROOM TEACHER documented as of this encounter Plan of Treatment Upcoming Encounters Date Type Department Care Team (Latest Contact Info) Description 01/03/2024 2:15 PM CDT Clinical Communication Virtual Review in [place], [place] [address] [place] [phone] 01/07/2024 3:00 PM CDT Office Visit Division of Gastroenterology in [place], [place] [address] [place] [phone] Hank Garner Jr., M.D. [address] [place] [phone] documented as of this encounter Procedures Procedure Name Priority Date/Time Associated Diagnosis Comments PULMONARY AND CC MEDICINE IMAGE EXAM Routine 08/22/2023 11:30 AM CDT documented in this encounter Results * Non-Radiology Image-Pulmonary And CC Medicine Image Exam (08/22/2023 11:30 AM CDT) Narrative [facility] - 08/22/2023 6:12 PM CDT This order has been created [...] Total Score: 0 07/11/19 17 12:26 PM ELEMENTARY CLASSROOM TEACHER documented as of this encounter Care Teams Machine Plaster Mixer Relationship Specialty Start Date End Date Elsewhere, Pcp PCP - General Internal Medicine 05/08/23 [facility] Laboratory Medicine 04/07/20 documented as of this encounter
--- OUTSIDE RECORDS SUMMARY | 2023-11-23 13:25 | XMS_ITS | Encounter Summary ---
Author Organization [facility] Address [address] [place] [address] Care Team Providers Care Rating Examiner Name Role Phone Elsewhere, Pcp Primary Care Provider Unavailabl e Encounter Details Date Type Department Care Team (Late st Contact Info) Description 08/28/2023 10:35 AM CDT Ancillary Procedure Department [...] your living situation today? I have a [facility] place to live 08/20/2023 Sex and Gender Information Value Date Recorded Sex Assigned at Female 05/14/2018 2:49 PM GENERAL PRODUCTION WORKER Gender Identity Female 05/14/2018 2:49 PM GENERAL PRODUCTION WORKER Sexual Orientation Straight 05/14/2018 2: 49 PM GENERAL PRODUCTION WORKER documented as of this encounter Plan of Treatment Upcoming Encounters Date Type Department Care Team (Latest Contact Info) Description 01/03/2024 2:15 PM CDT Clinical Communication Virtual Review in [place], [place] 200 [place] [address] 01/07/2024 3:00 PM CDT Office Visit Division of Gastroenterology in [place], [place] [address] [place] [phone] Hank Garner Jr., M.D. [address] [place] [phone] documented as of this encounter Procedures Procedure Name Priority Date/Time Associated Diagnosis Comments NURSING IMAGE EXAM Routine 08/28/2023 10 :35 AM CDT documented in this encounter Results * Head-Nursing Image Exam (08/28/2023 10:35 AM CDT) 08/28/2023 10:3 2 AM CDT Narrative [facility] - 08/28/2023 10:35 AM CDT This order has been created [...] Total Score: 0 07/11/19 17 12:26 PM GENERAL PRODUCTION WORKER documented as of this encounter Care Teams Rating Examiner Relationship Specialty Start Date End Date Elsewhere, Pcp PCP - General Internal Medicine 05/08/23 [facility] Laboratory Medicine 04/07/20 documented as of this encounter
--- OUTSIDE RECORDS SUMMARY | 2023-11-23 13:25 | XMS_ITS | Encounter Summary ---
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 [address] [place] [phone] [facility] Referral ID Status Reason Start Date Expiration Date Visits Re quested Visits Authorized [id number] Closed 08/30/2023 02/28/2025 1 1 * Medication Prior Authorization - Closed Specialty Diagnoses / Procedures Referred By Willy t Referred To Contact David Joy M.D. [address] [place] [address] Referral ID Status Reason Start Date Expiration Date Visits Re quested Visits Authorized [id number] Closed 1 1 Reason for Visit * Auth/Cert (Routine) Specialty Diagnoses / Procedures Referred By Contac t Referred To Contact Diagnoses Cholecystitis Acute Cholecystitis Procedures ADMIT TO INPATIENT Referral ID Status Reason Start Date Expiration Date Visits Re quested Visits Authorized [id number] 1 1 Encounter Details Date Type Department Care Team (Latest Contact Info) Description 08/20/2023 8:25 PM CDT - 08/30/2023 7:04 PM CDT Hospital Encounter [facility], [facility], [facility], Fourth Floor [address] [place] [phone] Shana Her M.D. [address] [place] [phone] Roddy Amin M.B.B.S., M.D. [address] [place] [phone] Vamshi Vivas M.D. [address] [place] [phone] Cris Gracia M.D. [address] [place] [phone] Citlaly Jefferson M.D. [address] [place] [phone] Rhoda Bobo M.D. [address] [place] [phone] Enmanuel Vila M.D., Ph.D. [address] [place] [phone] Effusion Pleural (Primary Dx); Erosion Skin [L98.8]; Malnutrition Severe Protein-Calorie (HCC); Decline Functional Status; Other Specified Disorders Of The Skin And Subcutaneous Tissue [L98.8]; Atrial Fibrillation Personal History; Tachy Bennie Syndrome (HCC); Transplant Renal (HCC); Immunodeficiency (HCC); Medication Therapy Shelter Not Anticoagulant; Acute Respiratory Failure With Hypoxia (HCC); Cholecystitis; Immunodeficiency Due To Drugs (HCC) Discharge Disposition: Home-Health Care [facility] Social History Tobacco Use Types Packs/Day Years Used Date Smoking Tobacco: Light Smoker Smokeless Tobacco: Never Alcohol Use Standard Drinks/Week Comments Not Currently 0 (1 standard drink = 0.6 oz pur e alcohol) [facility] Utilities Answer Date Recorded In [...] your living situation today? I have a [facility] place to live 08/20/2023 Sex and Gender Information Value Date Recorded Sex Assigned at Female 05/14/2018 2:49 PM TOE SEWER Gender Identity Female 05/14/2018 2:49 PM TOE SEWER Sexual Orientation Straight 05/14/2018 2: 49 PM TOE SEWER documented as of this encounter Last Filed Vital Signs Vital Sign Reading Time Taken Comments Blood Pressure 129/49 08/30/2023 4:10 PM CDT Pulse 41 08/30/2023 4:10 PM CDT Temperature 36.8 ??C (98.2 ??F) 08/30/2023 4:10 PM CD T Respiratory Rate 16 08/30/2023 2:08 PM CDT Oxygen Saturation 95% 08/30/2023 4:10 PM CDT Inhaled Oxygen Concentration - - Weight 41.6 kg (91 lb 11.4 oz) 08/27/2023 8:00 A M CDT Height 165.1 cm (5' 5) 08/26/2023 2:24 PM CDT Body Mass Index 15.26 08/26/2023 2:24 PM CDT documented in this encounter Discharge Summaries * David Joy M.D. - 08/30/2023 5:08 PM CDT DISCHARGE SUMMARY BRIEF OVERVIEW Discharge Provider: Rhoda Bobo M.D. Primary Care Providers: Elsewhere, Pcp (General) No address on file Discharge Provider Team: [facility] Medicine 3 ([facility]) Primary Care Provider Phone Number: None Primary Care Provider Fax Number: None Admission Date: 08/20/2023 Discharge Date: 08/30/23 PRINCIPAL DIAGNOSIS Cholecystitis SECONDARY DIAGNOSES Principal Problem: Cholecystitis Active Problems: Transplant Renal (HCC) Malnutrition Severe Protein-Calorie (HCC) Hyperkalemia Resolved Problems: * No resolved hospital problems. * DISCHARGE DISPOSITION Home-Health Care c [6] ACTIVE ISSUES REQUIRING FOLLOW UP Patient Recommendations: Please follow up with her primary care physician 09/03/2023 at 8:00 a.m. Please call to schedule the following blood work: BMP, Magnesium, Phosphorus, CBC, tacrolimus trough at 7:30 am to be done on 09/02/2023 You will be called by the interventional pulmonary team for an appointment on 09/03/2023 or 09/04/2023 for consideration of a repeat thoracentesis Please follow-up with your kidney doctors on 09/06/2023 as scheduled Please follow up with your GI doctors on 11/12/2023 as scheduled Your percutaneous cholecystostomy tube will need to be exchanged within 3 months. This will be scheduled for you. Recommend flushing your drain tube with 5 mL twice daily. If you notice any increase in bloody output from your tube please go to the nearest emergency room for further evaluation. 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 We will call to schedule cardiologyfollow up in 2 weeks. Continue zinc sulfate 220 (50 mg zinc) for 1 month with follow up labs Recommend restarting aspirin 81 mg daily given her history of coronary artery disease Continue holding your CellCept until you follow up with Nephrology on 09/06/2023 Continue amiodarone 200 mg daily with appropriate lab follow up, including TSH, LFTs in 6-8 weeks Please follow up with Ophthalmology since you are taking amiodarone Nutrition support as outlined below Primary Care Provider Recommendations: Please follow up BMP, Magnesium, Phosphorus, CBC, tacrolimus trough at 7:30 am Recommend obtaining TSH and repeat LFTs in 6-8 weeks due to patient being on amiodarone Patient should be referred to Ophthalmology for evaluation while on amiodarone The patient's Bumex was increased to help address her fluid. She will follow up with interventionalpulmonology for as needed thoracentesis. Continue to review and adjust diuretics in conjunction with Nephrology. Given leading concerns, Eliquis was held on discharge. The patient should follow up with Cardiologyto discuss re-initiation of this. Medication Changes: Started: Amiodarone 200 mg by mouth daily until follow up with Cardiology Bumetanide 4 mg twice daily Zofran as needed for nausea Selenium vitamin 150 mcg by mouth daily Modified: Tacrolimus ? tacrolimus sublingual tablet 0.5 mg twice daily Pantoprazole once daily ? pantoprazole twice daily Stopped: CellCept until follow up with Nephrology DISCHARGE PHARMACY: [id number] [id number] [facility] AT [address] FOR PATIENTS Course: You were admitted to the hospital for acute cholecystitis. While you were here we placed a percutaneous cholecystostomy tube to drain the gallbladder. Your course was complicated by respiratory distress due to volume retention and so received drainage of fluid from around the lungs. You are also started on medications to manage your atrial fibrillation. He will follow up in the outpatient settingfor continued management of these conditions. Please refer to the document attached to your after visit summary (AVS) for more information about your care. Return Precautions: If you experience chest pain, palpitations, shortness of breath, fainting episodes, bleeding, fevers/chills, or increased bloody output from your drain please present to the emergency department and/or contact your primary care provider. Nutrition Date completed: 08/30/2023 Nutrition Discharge Plan: Patient was assessed as severely malnourished during this hospitalization based upon the ASPEN criteria. Outpatient follow-up recommended by RDN: Recommend PCP monitor patient and refer for outpatient follow-up with dietitian regarding malnutrition as indicated Tube feeds and oral diet meet all of your nutritional needs. Oral Diet: Regular diet as tolerated. If cannot eat, then supplement with a tube feeding. Continue to take Creon pancreatic enzymes with meals/tube feeds. Feeding Tube Information: Gastric 14 Hungarian [facility] ELDER internal balloon, no distal tubing Who placed the tube: [facility] Date of tube replacement: August 21, 2023 To maintain enteral access the patient's feeding tube should be replaced at regular intervals. Recommended replacement for feeding tube with internal balloon is every 3-5 months. Tube Feeding Program: Formula: Peptamen 1.5 (Nestle), Substitute Formula: Consult dietitian to determine appropriate substitute. Feeding method: Intermittent gravity Feeding schedule/goal: 3 cans/day (Given 1-1-1) This program provides 1125 calories and 51 grams protein per day. Water Flushes: 30 mL before and after each feeding. If you cannot tolerate any oral intake to hydrate yourself, then increase your water flushes to 90 mL before and after each feeding. Vitamin/mineral Supplementation: Formula at goal volume provides 100% or greater of Recommended Daily Intake for vitamins and minerals. One dose daily liquid multivitamin with minerals recommended for additional supplementation. Estimated Needs: Total Calorie Needs: 4844-0015 calories/day (30-35 kcal/kg) Total Protein Needs: 42-50 grams/day (1-1.2 g/kg) Weight Used for Equation Calculations: 41.6 kg Your Durable Medical Equipment (DME)/Infusion company for tube feeding supplies is: [employer] [facility]: . Please contact this DME company with questions about delivery or re-ordering your supplies and formula. To schedule an appointment with Home Enteral Nutrition team, call . For questions about the recommended tube feeding program and care of your tube, contact Home Enteral Nutrition clinic department. Saturday - Saturday, 8 a.m. - 4 p.m. Gallbladder Drain Care Instructions: Try to prevent tugging on the catheter If connected to a bag, the bag should be emptied as follows: Turn bag upside down, Remove bottom cap from bag Pour contents into toilet, Replace cap on bag, and Re-secure bag onto leg with straps. Keep dressing as dry as possible. When bathing, do not sit in water deep enough to immerse catheterfixation device/dressing. Showering is permitted if the dressing is kept as dry as possible (you can tape a piece of plastic wrap to covers the dressing). If the dressing becomes wet for any reason, remove it and replace with new piece of gauze and tape, leaving the fixation device alone. (A slightly damp dressing exterior does not require changing.) You may also change the dressing as needed forcleanliness. If the fixation device loosens from the skin, dry it and the skin, then tape the device securely tothe skin and call [facility] the next business day. Keep the skin around the catheter clean. Slight accumulation of secretions around the catheter at the skin entry site is common and not a cause for concern. You may gently cleanse/remove any excess build-up. Occasionally, a situation will require prompt attention and an emergency room visit may be necessary: A catheter which has been pulled out A sudden decrease in volume of bile drainage Worsening jaundice (yellowing of the skin and eyes) or itching Fever over 101 degrees, chills, nausea, vomiting New or increasing right upper quadrant pain Blood coming out of the catheter Bile coming out around catheter (mild staining of dressing is normal but saturation of dressing is not) FLUSHING YOUR DRAIN You will flush the drain with 5 mL of sterile saline daily as instructed. Flushing the drain will keep the tube functioning properly. After flushing, empty the drainage bag and record the output. Turn the three-way stopcock off to the drainage bag. Clean the flushing port with alcohol and attach the flush syringe. Gently inject the flush. Turn the stopcock off to the flushing port and open to the bag. It will also be important to change the dressing and clean around the tube daily. Remove the dressing and clean around the tube with sterile saline using a cotton ball or Q-tip. Place a clean gauze pad over the tube site and secure it with tape. If the tube site becomes red, irritated or you notice drainage around the tube, please contact the nurse from interventional radiology or your doctor. TEST RESULTS PENDING AT DISCHARGE Pending Labs Order Current Status Fungal Culture, Routine In process Bacterial Culture, Anaerobic + Susceptibility Preliminary result Fungal Culture, Routine Preliminary result Fungal Culture, Routine Preliminary result Hypoglycemic Survey Preliminary result Mycobacterial Culture Preliminary result DETAILS OF HOSPITAL STAY REASON FOR ADMISSION Cholecystitis HOSPITAL COURSE Mrs. Jacqueline Galvan is a 68 y.o. female who presents with acute cholecystitis. 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 [facility]-Admission ([facility] 08/20/23 She presented at an outside hospital for fever, and imaging was suggestive of acute cholecystitis. She was deemed to be a poor surgical candidate and was transferred to [facility] for further interventions. [facility] Admission to General Medicine 3 Service: 08/20/23 - 08/22/23 On arrival to the floor the patient was hemodynamically stable and in no acute distress. She was initially on Zosyn but given history of resistance she was started on vancomycin and meropenem. She was noted to be hyperkalemic to 5.7 and given her history of renal transplant nephrology was consultedwho recommended Lokelma and gentle hydration with improvement to 4.3. [facility] and determined that she was not a surgical candidate now or in the foreseeable future given her previous ex lap. It was recommended to proceed with transcystic stent placement for destination therapy however during ERCP on 08/21/2023 it was noted that the patient had a tight cystic ductand so was unable to have a stent placed. After arriving back to the floor on 08/21 patient was noted to have worsening oxygen requirements and increased heart rate. An WEAVING INSTRUCTOR was called and the patient was subsequently taken to the ICU further evaluation and management. MICU: 08/22/23 - 08/25/23 Patient presented with acute hypoxic respiratory failure requiring high-flow oxygen. Radiographic imaging revealed left pleural effusion and pericardial effusions. Patient developed AFib with RVR in setting of her left pleural effusion and acute hypoxic respiratory failure. Oxygen requirements improved after thoracentesis. Pleural studies showed transudative effusion. HRS was consulted in the setting of prolonged conversion pauses and afib with RVR, who recommended against PPM and amiodarone was initiated. Meropenem was continued. HIDA positive, she underwent cholecystostomy tube by IR on 08/22/2023 for source control. Due to worsening oxygen requirements, she was assessed and found to havenew pleural effusion on right side, she underwent repeat thoracentesis with subsequent improvement of her oxygenation. Fluid analysis showed exudative effusion, likely inflammatory infiltrate due to proximity of gallbladder. Due to improvements in oxygen status, Mrs. Galvan was transferred to floor on 08/25/23. Transfer to General Medicine 3 Service: 08/25/23 - 08/30/2023 Upon arrival to the floor, she was hemodynamically stable with no acute concerns. For her acute cholecystitis, she continued on meropenem 500 mg BID until 08/27/23 with plans for percutaneous cholecystostomy tube exchange in 3 months. She came to the floor on 2L nasal cannula and had trouble weaning off of oxygen. POCUS revealed left pleural effusion resolved with minimal evidence of effusion but her right pleural effusion had accumulated more fluid. Interventional pulmonology consulted for thoracocentesis which was done on 08/27and 08/28 with significant improvement in the patient's oxygenation. She was eventually weaned off oxygen. Echocardiography performed on 08/27/23 demonstrated resolution of pericardial effusion with anEF of 60%. She continued on amiodarone 400 mg until 08/30/23 and was transitioned to 200 mg for 3 months. She was discharged with 2 week ambulatory cardiac monitoring system, with appointment to follow up with Cardiology. Additionally, the patient will require follow up with Ophthalmology as well asrepeat labs including LFTs and TSH in 4-6 weeks. Nephrology closely followed her during her stay and recommended reduced therapeutic goal for tacrolimus trough levels due to her proximity from transplant. Additionally, home torsemide 100 mg transitioned to bumetanide 2 mg which was subsequently increased to 4 mg b.i.d. to assist with her volume re tention.. Tacrolimus was changed to via G tube due to vomiting with improvement in levels, transitioned to sublingual on discharge. Her nutritional status declined further while in the hospital with an admission weight of 44.1 kg and discharge weight of 41.6 kg. Multidisciplinary Nutrition team was consulted who provided tube feeding recommendations, including continuous rate which was transitioned to intermittent on discharge.It was then recommended for the patient to transition back to her home regimen given that she had improvement in her weight at that time. She had an episode of hematemesis on 08/27 but continued to remain hemodynamically stable with stable hemoglobin. This occurred after the patient was restarted onEliquis given her AFib as well as chemical cardioversion with amiodarone. Given concern for bleeding, the Eliquis was held pending resolution. Unfortunately on 08/29 her drain was noted to have dark red fluid, consistent with blood. [facility] Interventional Radiology was notified who flushed the drain and reocmmended continued observation. Wediscussed with the patient the recommendation for observation of the drain output while in the hospital but the patient was hopeful for discharge and it was decided to plan for discharge on 08/30/2023with close follow up in the outpatient setting. The patient was provided with strict return precautions as well as counseled on what to observe particularly as it relates to bleeding from her cholecystostomy tube and were to follow up if this was to occur. Additionally, discussed changes in her diuretic management as well as follow up with Interventional pulmonology for outpatient thoracentesis. Discussed with the patient the risk for stroke gi andrés that she has currently not anticoagulated in the setting of recent chemical cardioversion. Currently risk of bleeding outweighs the risk of stroke and so the patient will follow up with PCP and Cardiology in the outpatient setting for resumption of Eliquis as soon as possible. In the interim given her CAD, will restart her aspirin upon discharge. Despite the changes discussed above, the patient was determined to be relatively stable for discharge and in collaboration with the patient and per patient preference discharged home on 08/30/2023 with close follow up in the outpatient setting. MEDICATIONS CHANGED DURING THIS HOSPITAL STAY Medications stopped: Quetiapine, suvurexant, torsemide Medications changed: Mycophenolate, pantoprazole, tacrolimus Medications added: Zinc sulfate, Zofran, Bumex, amiodarone CONDITION AT DISCHARGE stable Associated attestation - Rhoda Bobo M.D. - 09/02/2023 12:08 PM CDT I saw the patient on the day of discharge and agree with the discharge plans and disposition. * David Joy M.D. - 08/22/2023 6:48 AM CDT RST Medicine 3 ([facility]) TRANSFER NOTE HOSPITAL COURSE Mrs. Jacqueline Galvan is a 68 y.o. female who presents with acute cholecystitis. 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 She presented at an outside hospital for fever, and imaging was suggestive of acute cholecystitis. She was deemed to be a poor surgical candidate and was transferred to [facility] for further interventions. On arrival to the floor the patient was hemodynamically stable and in no acute distress. She was initially on Zosyn but given history of resistance she was started on vancomycin and meropenem. She was noted to be hyperkalemic to 5.7 and given her history of renal transplant nephrology was consultedwho recommended Lokelma and gentle hydration with improvement to 4.3. Surgery evaluated the patientin hospital and determined that she was not a surgical candidate now or in the foreseeable future given her previous ex lap. It was recommended to proceed with transcystic stent placement for destination therapy however during ERCP on 08/21/2023 it was noted that the patient had a tight cystic ductand so was unable to have a stent placed. Plan was for the patient to proceed with higher percutaneous cholecystostomy drain placement on 08/22/2023 however overnight on 08/20 the patient was noted to be hypoxic to the mid 80s requiring up to 10 L supplemental oxygen. An x-ray was obtained that demonstrated worsening left-sided pleural effusion and a large pericardial effusion. VBG at that time demonstrated pH 7.28 and She received 100 mg of IV Lasix. Her oxygen requirement improved back to herprevious support of 5-6 L but then the morning of 08/21 she was noted to have increasing oxygen requirements again with heart rate up to the 120s-130s for which an WEAVING INSTRUCTOR was called. Given her increasingoxygen requirements, increased heart rate and complicated course she was taken to the ICU further evaluation and management. I have reviewed the current medication list. OBJECTIVE VITAL SIGNS Temperature: [36.2 ??C-36.7 ??C] 36.7 ??C Heart Rate: [62-66] 62 Resp Rate: [12-20] 18 Blood Pressure: (118-146)/(49-108) 118/77 SpO2: [82 %-98 %] 89 % Flow Rate (L/min): [4 L/min-12 L/min] 12 L/min Height: [165.1 cm] 165.1 cm Pulse Rate: [59-122] 120 PHYSICAL EXAM General: Alert, interactive, cachectic, moderately ill appearing Skin: wound on right forehead which was covered with a bandage and nonhealing lower extremity woundwith significant depth over anterior aspect of right knee. Pulmonary: bilateral crackles in the bases, wheezing auscultated anteriorly in the upper lung [place]. Cardiovascular: Regular rate and rhythm (heart rate intermittently tachycardic). No murmurs appreciated. No lower extremity edema. Abdomen: soft, flat, nontender to palpation, Isaac's sign negative, PEG tube in place, site appears unremarkable. DIAGNOSTICS I have personally reviewed the laboratory data and imaging since admission, and in/outs for past 72hours. ASSESSMENT / PLAN Mrs. Jacqueline Galvan is a 68 y.o. 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 Unfortunately, given the need for correction of her hyperkalemia the patient received some fluids which likely tipped her over with this worsening pericardial effusion and left-sided pleural effusion. This is likely the cause of her shortness of breath and given her upcoming procedures would benefit further management in the ICU. The patient is planned for percutaneous cholecystostomy drain placement today but will likely require therapeutic thoracentesis. Family has been updated regarding her escalation of cares. She will need further goals of care discussion given that she was previously DNR/DNI and upon this hospitalization was reverted back to being full code. Recommendations: - recommend diagnostic and therapeutic thoracentesis - plan for IR percutaneous cholecystostomy tube today - continue vanc and meropenem (vanco not dose yesterday due to renal function per ID) - patient is a hard stick and so may need line placed for blood draws and monitoring. Diet: NPO for procedure Tubes/lines: PIV VTE prophylaxis: held pending procedure Code status: Full Code, continue goals of care discussion Surrogate decision maker: Noah Disposition: Uncertain Plan discussed with [place] [id number] ([facility]) Talent Acquisition Coordinator, Vamshi Carlton M.D., who was present during desai portions of the evaluation today. Please page the [place] [id number] ([facility]) service pager at [phone] with any questions. David Joy M.D. Internal Medicine PGY-3 [id number] documented in this encounter Discharge Instructions * Discharge Instructions* David Joy M.D. - 08/26/2023 8:57 AM CDT You were discharged from the [place] [id number] ([facility]) Service. Please identify this service name if youcall with questions after hospitalization. Patient Recommendations: Please follow up with her primary care physician 09/03/2023 at 8:00 a.m. Please call to schedule the following blood work: BMP, Magnesium, Phosphorus, CBC, tacrolimus trough at 7:30 am to be done on 09/02/2023 You will be called by the interventional pulmonary team for an appointment on 09/03/2023 or 09/04/2023 for consideration of a repeat thoracentesis Please follow-up with your kidney doctors on 09/06/2023 as scheduled Please follow up with your GI doctors on 11/12/2023 as scheduled Your percutaneous cholecystostomy tube will need to be exchanged within 3 months. This will be scheduled for you. Recommend flushing your drain tube with 5 mL twice daily. If you notice any increase in bloody output from your tube please go to the nearest emergency room for further evaluation. 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 We will call to schedule cardiologyfollow up in 2 weeks. Continue zinc sulfate 220 (50 mg zinc) for 1 month with follow up labs Recommend restarting aspirin 81 mg daily given her history of coronary artery disease Continue holding your CellCept until you follow up with Nephrology on 09/06/2023 Continue amiodarone 200 mg daily with appropriate lab follow up, including TSH, LFTs in 6-8 weeks Please follow up with Ophthalmology since you are taking amiodarone Nutrition support as outlined below Primary Care Provider Recommendations: Please follow up BMP, Magnesium, Phosphorus, CBC, tacrolimus trough at 7:30 am Recommend obtaining TSH and repeat LFTs in 6-8 weeks due to patient being on amiodarone Patient should be referred to Ophthalmology for evaluation while on amiodarone The patient's Bumex was increased to help address her fluid. She will follow up with interventionalpulmonology for as needed thoracentesis. Continue to review and adjust diuretics in conjunction with Nephrology. Given leading concerns, Eliquis was held on discharge. The patient should follow up with Cardiologyto discuss re-initiation of this. Medication Changes: Started: Amiodarone 200 mg by mouth daily until follow up with Cardiology Bumetanide 4 mg twice daily Zofran as needed for nausea Selenium vitamin 150 mcg by mouth daily Modified: Tacrolimus ? tacrolimus sublingual tablet 0.5 mg twice daily Pantoprazole once daily ? pantoprazole twice daily Stopped: CellCept until follow up with Nephrology DISCHARGE PHARMACY: [id number] [place], [place] - [address] [facility] AT [address] FOR PATIENTS Course: You were admitted to the hospital for acute cholecystitis. While you were here we placed a percutaneous cholecystostomy tube to drain the gallbladder. Your course was complicated by respiratory distress due to volume retention and so received drainage of fluid from around the lungs. You are also started on medications to manage your atrial fibrillation. He will follow up in the outpatient settingfor continued management of these conditions. Please refer to the document attached to your after visit summary (AVS) for more information about your care. Return Precautions: If you experience chest pain, palpitations, shortness of breath, fainting episodes, bleeding, fevers/chills, or increased bloody output from your drain please present to the emergency department and/or contact your primary care provider. Nutrition Date completed: 08/30/2023 Nutrition Discharge Plan: Patient was assessed as severely malnourished during this hospitalization based upon the ASPEN criteria. Outpatient follow-up recommended by RDN: Recommend PCP monitor patient and refer for outpatient follow-up with dietitian regarding malnutrition as indicated Tube feeds and oral diet meet all of your nutritional needs. Oral Diet: Regular diet as tolerated. If cannot eat, then supplement with a tube feeding. Continue to take Creon pancreatic enzymes with meals/tube feeds. Feeding Tube Information: Gastric 14 Hungarian [facility] ELDER internal balloon, no distal tubing Who placed the tube: [facility] Date of tube replacement: August 21, 2023 To maintain enteral access the patient's feeding tube should be replaced at regular intervals. Recommended replacement for feeding tube with internal balloon is every 3-5 months. Tube Feeding Program: Formula: Peptamen 1.5 (Nestle), Substitute Formula: Consult dietitian to determine appropriate substitute. Feeding method: Intermittent gravity Feeding schedule/goal: 3 cans/day (Given 1-1-1) This program provides 1125 calories and 51 grams protein per day. Water Flushes: 30 mL before and after each feeding. If you cannot tolerate any oral intake to hydrate yourself, then increase your water flushes to 90 mL before and after each feeding. Vitamin/mineral Supplementation: Formula at goal volume provides 100% or greater of Recommended Daily Intake for vitamins and minerals. One dose daily liquid multivitamin with minerals recommended for additional supplementation. Estimated Needs: Total Calorie Needs: 9219-0341 calories/day (30-35 kcal/kg) Total Protein Needs: 42-50 grams/day (1-1.2 g/kg) Weight Used for Equation Calculations: 41.6 kg Your Durable Medical Equipment (DME)/Infusion company for tube feeding supplies is: [employer] [facility]: . Please contact this DME company with questions about delivery or re-ordering your supplies and formula. To schedule an appointment with Home Enteral Nutrition team, call . For questions about the recommended tube feeding program and care of your tube, contact Home Enteral Nutrition clinic department. Saturday - Saturday, 8 a.m. - 4 p.m. Gallbladder Drain Care Instructions: Try to prevent tugging on the catheter If connected to a bag, the bag should be emptied as follows: Turn bag upside down, Remove bottom cap from bag Pour contents into toilet, Replace cap on bag, and Re-secure bag onto leg with straps. Keep dressing as dry as possible. When bathing, do not sit in water deep enough to immerse catheterfixation device/dressing. Showering is permitted if the dressing is kept as dry as possible (you can tape a piece of plastic wrap to covers the dressing). If the dressing becomes wet for any reason, remove it and replace with new piece of gauze and tape, leaving the fixation device alone. (A slightly damp dressing exterior does not require changing.) You may also change the dressing as needed forcleanliness. If the fixation device loosens from the skin, dry it and the skin, then tape the device securely tothe skin and call [facility] the next business day. Keep the skin around the catheter clean. Slight accumulation of secretions around the catheter at the skin entry site is common and not a cause for concern. You may gently cleanse/remove any excess build-up. Occasionally, a situation will require prompt attention and an emergency room visit may be necessary: A catheter which has been pulled out A sudden decrease in volume of bile drainage Worsening jaundice (yellowing of the skin and eyes) or itching Fever over 101 degrees, chills, nausea, vomiting New or increasing right upper quadrant pain Blood coming out of the catheter Bile coming out around catheter (mild staining of dressing is normal but saturation of dressing is not) FLUSHING YOUR DRAIN You will flush the drain with 5 mL of sterile saline daily as instructed. Flushing the drain will keep the tube functioning properly. After flushing, empty the drainage bag and record the output. Turn the three-way stopcock off to the drainage bag. Clean the flushing port with alcohol and attach the flush syringe. Gently inject the flush. Turn the stopcock off to the flushing port and open to the bag. It will also be important to change the dressing and clean around the tube daily. Remove the dressing and clean around the tube with sterile saline using a cotton ball or Q-tip. Place a clean gauze pad over the tube site and secure it with tape. If the tube site becomes red, irritated or you notice drainage around the tube, please contact the nurse from interventional radiology or your doctor. * Discharge Instr - Diet* Clover Bedoya M.S., RDN, LD - 08/26/2023 2:30 PM CDT Nutrition Date completed: 08/30/2023 Nutrition Discharge Plan: Patient was assessed as severely malnourished during this hospitalization based upon the ASPEN criteria. Outpatient follow-up recommended by RDN: Recommend PCP monitor patient and refer for outpatient follow-up with dietitian regarding malnutrition as indicated Tube feeds and oral diet meet all of your nutritional needs. Oral Diet: Regular diet as tolerated. If cannot eat, then supplement with a tube feeding. Continue to take Creon pancreatic enzymes with meals/tube feeds. Feeding Tube Information: Gastric 14 Hungarian [facility] ELDER internal balloon, no distal tubing Who placed the tube: [facility] Date of tube replacement: August 21, 2023 To maintain enteral access the patient's feeding tube should be replaced at regular intervals. Recommended replacement for feeding tube with internal balloon is every 3-5 months. Tube Feeding Program: Formula: Peptamen 1.5 (Nestle), Substitute Formula: Consult dietitian to determine appropriate substitute. Feeding method: Intermittent gravity Feeding schedule/goal: 3 cans/day (Given 1-1-) This program provides 1125 calories and 51 grams protein per day. Water Flushes: 30 mL before and after each feeding. If you cannot tolerate any oral intake to hydrate yourself, then increase your water flushes to 90 mL before and after each feeding. Vitamin/mineral Supplementation: Formula at goal volume provides 100% or greater of Recommended Daily Intake for vitamins and minerals. One dose daily liquid multivitamin with minerals recommended for additional supplementation. Estimated Needs: Total Calorie Needs: 4296-6628 calories/day (30-35 kcal/kg) Total Protein Needs: 42-50 grams/day (1-1.2 g/kg) Weight Used for Equation Calculations: 41.6 kg Your Durable Medical Equipment (DME)/Infusion company for tube feeding supplies is: [employer] [facility]: . Please contact this DME company with questions about delivery or re-ordering your supplies and formula. To schedule an appointment with Home Enteral Nutrition team, call . For questions about the recommended tube feeding program and care of your tube, contact Home Enteral Nutrition clinic department. Saturday - Saturday, 8 a.m. - 4 p.m. * Discharge Instr - Other Orders* Enrique Buenrostro, RMarlysN. - 08/21/2023 4:40 PM CDT Anesthesia: General Post-Op Medications: noen Vital signs: T 36.2, HR 64, respers 13, BP 136/65, SpO2 93% Oxygen: 5L nasal cannula Pain: none Nausea: none RASS: -1 Restrictions: none For questions: Call [phone] * Attachments The following attachments cannot be sent through Care Everywhere. * Amiodarone (By mouth) (Nigerian) * Bumetanide (By mouth) (Nigerian) * Ondansetron (By mouth, Into the mouth) (Nigerian) * Sodium Chloride (By injection) (Nigerian) * Tacrolimus (By mouth) (Nigerian) * Zinc Sulfate (By mouth) (Nigerian) documented in this encounter Medications at Time [...] details see Order Report 1 each 08/30/2023 ilemik-idbfrazo-vrsyjun (CREON) 36,000-114,000-180,[address] capsule Take 36,000 Units of lipase by mouth 4 (four) times a day. 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 - 08/30/2023 6:02 PM CDT 08/30/231801 Reason Therapy Missed Reason Therapy Missed Patient declined therapy * Анна Sen C.O.T.Jaclyn., O.T.A. - 08/30/2023 1:33 PM CDT Occupational Therapy [facility] Inpatient Treatment SUBJECTIVE Patient's Name: Jacqueline Galvan Referring/Attending Provider: Rhoda Bobo M.D. Reason for Referral: Occupational Therapy Evaluation and Treatment History of Present Illness: Jacqueline Galvan is a 68 y.o. female who was admitted to [facility] in [place] on 08/20/2023 for Cholecystitis [K81.9]. Precautions Other Precautions: respiratory (1 NC), R biliary tube, PEG tube, cognition/delirium, fall Pain Assessment: Pain not reported during session. Subjective Comments: Patient greeted in bed and agreeable to therapy session. Team Communication: The patient's status was discussed and coordination of care occurred with RN, Family/Caregiver Family/Caregiver Present: spouse OBJECTIVE Vital Signs: Vitals taken during session: Pulse rate: 42 bpm, Blood pressure: 148/58 mmHg, and MAP: 78 Outcome Measures: AM-PAC Inpatient Short Form: Putting on and taking off regular lower body clothing?: A Little Putting on and taking off regular upper body clothing?: A Little Taking care of personal grooming such as brushing teeth?: None Bathing (including washing, rinsing, drying)?: A Little Toileting, which includes using toilet, bedpan, or urinal?: A Little Eating meals?: None Daily Activities Raw Score (max 24): 20 Daily Activities Standardized Score: 42.03 Interpretation: Based on scoring guidelines using the raw score value: Those going to home had an average score at or above 18 Those going to facility had an average score at or below 17 Clinicians answer the -[facility] Inpatient Short Form based on observed patient activity and/or clinical judgement (ie. patient can be scored without physically performing each activity) Cognition: Observable concerns with cognition and further assessment is warranted Therapeutic Interventions: ACTIVITIES OF DAILY LIVING: UPPER BODY DRESSING - Assist Level: Minimal Assist - Patient Location: Edge of bed - UB Dressing Item: gut puller shirt - Therapist Delivery: assessed, instructed, educated, assisted, facilitated - Assist/Cues: verbal for technique, step by step instructions Session primarily limited by dizziness, returned to supine and vitals assessed; providers came intoroom- unable to follow up for session. BED MOBILITY: SIT<>SUPINE - Assist Level: Minimal Assist - Device: use of bed rail, head of bed elevated - Therapist Delivery: assessed, instructed, educated, assisted, facilitated - Assist/Cues: verbal for log roll technique, technique, sequencing, proper hand placement Education/Training Provided: Provided education on role of occupational therapy in the acute setting. Collaborated with patient and/or family on goals and plan of care. Patient was left in bed with bed [...] OT: Assistance with toilet/shower transfers, Assistance with medication set up/administration, Assistance with showering/bathing, Assistance with meal preparation, Assistance with junior financial analyst, Assistance with transportation, Assistance with housekeeping, Assistance with shopping, Assistance with dressing, Assistance with toileting, Physical assistance needed, Cognitive assistance needed Clinical Impression: Patient continues to slowly progress towards acute Occupational Therapy goals. Patient remains limited secondary to decreased activity tolerance, impaired functional balance, generalized weakness, and pain, resulting in the following deficits; decreased safety and independence for completing functional transfers and self care tasks. Today, patient participated in functional bed mobility requiringminimal assist with use of bed rail. Patient facilitated upper body dressing requiring set up and minimal assist. Currently, skilled Occupational therapy treatment during this hospitalization is medically necessary to provide graded activities to promote patient's functional return, safety and quality of life in line with established rehabilitation goals. Plan OT Plan Comments: Next session: standing grooming, toileting Functional Goals: OT Goal #1: Patient will complete toileting (transfer, ebony cares, clothing management) with modified independence to return to prior level of functioning. OT Goal #1 Status: Ongoing OT Goal #2: Patient will complete standing activities of daily living/simple instrumental activities of daily living > 5 minutes with modified independence to return to previous level of functioning. OT Goal #2 Status: Ongoing OT Goal #3: Patient will complete full body dressing including clothing retrieval with modified independence to return to prior level of functioning. OT Goal #3 Status: Progressing OT Goal #4: Patient will verbalize understanding of energy conservation techniques, fall preventionstrategies, and DME recommendations to ensure independence and safety at dismissal. OT Goal #4 Status: Ongoing Progress: Progressing toward goals Rehab potential: Ms. Galvan has potential to achieve established occupational therapy goals within the time frame outlined below. OT Frequency: OT Amount: 1 visit per day OT Frequency: 5 times per week OT Inpatient Duration : Until goals are met or hospital discharge Requires Inpatient OT Follow-Up: Yes OT - Next Inpatient Appointment: 09/02/23 Plan: Continue with current plan Treatment interventions may include: Treatment Interventions: Therapeutic exercise, Therapeutic functional activity, Self-care/home management, Cognitive skills training Occupational Therapy Attestation Statement: Patient unable to verbalize agreement to the plan of care and goals due to mental status or level of consciousness, but family members present to consult and agree with the plan as stated above. LEPE Visit Trackin Billing: Time Spent with Patient Therapeutic Interventions Home Management Training (min): 8 min Time Tracking Total Timed Units (min): 8 min Total Treatment Time (min): 8 min Tiffanie Mason, NachoT.A. Associated attestation - Rose Quinn M.A., JERRI Zuniga - 08/31/2023 12:32 PM CDT The patient has dismissed from the hospital. Current functional status is documented in this note. Further skilled therapy is recommended at this time. Patient is discharged from acute occupational therapy. Rose Quinn M.A., Efrain, JERRI * CourtneyMikel cope Jr., M.D., M.S. - 08/30/2023 10:52 AM CDT .Nutrition Support Service Consultation - general consult not PN or Tube REFERRAL: Consults SUBJECTIVE CHIEF COMPLAINT/REASON FOR VISIT Jacqueline Galvan is a 68 y.o. female who presents for evaluation of malnutrition HISTORY OF PRESENT ILLNESS Ms. Galvan is a 68 y.o. 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 Currently admitted for management of acute cholecystitis status post percutaneous cholecystostomy drain placed 08/22/2023. She has a complex history of malnutrition with chronic mesenteric ischemia, PEG placement with perforation, and continued nausea, vomiting, abdominal pain. Unfortunately, she had an episode of hematemesis. This was not felt to be related to her PEG. She has been otherwise stable. We are consulted to assist with restarting her home tube feeding given her symptoms of nausea with feeds. The following portions of the patient's history were reviewed and updated as appropriate: allergies, current medications, family history, medical history, social history, surgical history, problem list. Nutrition Needs: BMI (Calculated) 15.3 kg/m?? (08/27/23 0800) Calculated Energy Needs Using Equations Height: 165.1 cm (08/26/23 1424) Weight Used for Equation Calculations: 41.6 kg (08/28/23 1253) Method to Estimate Energy Needs: kcal/kg (08/28/23 1253) kcal/k-35 (08/28/23 1253) Estimated Energy Needs (Low): 1248 kcal/day (08/28/23 1253) Estimated Energy Needs (High): 1456 kcal/day (08/28/23 1253) Total Calorie Needs: 9675-8335 (08/28/23 1253) Retired Estimated Energy Needs (High): 1456 kg (08/28/23 1253) Retired Other Estimated Energy Needs (High): 0 kg (08/28/23 1253) Estimated Protein Needs Weight Used to Calculate Protein Needs (Kg): 41.6 kg (08/28/23 1302) Method to Estimate Protein Needs (g/kg): 1 - 1.2 (08/28/23 1302) Estimated Protein Needs (Low): 42 (08/28/23 1302) Estimated Protein Needs (High): 50 (08/28/23 1302) Results from last 7 days Lab Units 08/30/23 0742 08/29/23 0758 08/28/23 0740 SODIUM mmol/L 134* < > 135 CHLORIDE mmol/L 94* < > 95* CREATININE mg/dL 1.58* < > 1.34* ESTIMATED GFR EGFR mL/min/BSA 35* < > 43* BUN mg/dL 36* < > 40* GLUCOSE S mg/dL 93 < > 99 CALCIUM mg/dL 9.2 < > 9.3 MAGNESIUM mg/dL 1.9 < > 2.1 PHOSPHORUS INORGANIC mg/dL 3.8 < > 3.3 ALBUMIN g/dL 3.1* < > 3.4* 3.4* BILIRUBIN TOTAL mg/dL -- -- 0.4 ALK PHOS U/L -- -- 111* ALT U/L -- -- 23 AST U/L -- -- 22 < > = values in this interval not displayed. OBJECTIVE Systems Review: Pertinent positives are in HPI and remainder of the Review of Systems is negative. PHYSICAL EXAM Physical Exam General: Patient is resting comfortably in no acute distress. Abdomen: Soft; no masses Eyes: Nonicteric ENT: No thrush Ext: No visible rashes Skin: Warm and well-perfused Neuro: Normal bisque kiln drawer strength Heart: Regular rate and rhythm ASSESSMENT / PLAN I reviewed the patient's notes, clinical status, nutrition program and lab data. #1 Transplant Renal (HCC) #2 Malnutrition Severe Protein-Calorie (HCC) #3 Cholecystitis #4 Hyperkalemia She was restarted on tube feeding (Peptamen 1.5) at 20ml/hr on 08/28 with goal of 30ml/hr. On visit today, she reports to be tolerating this well with minimal nausea. Her inability to tolerate feeds was likely present in the setting of her acute illness. No further GI studies are recommended at thistime. Thank you for the consultation. Please page [facility] ([phone]) or [facility] ([phone]) service pager with questions. Associated attestation - Rhoda Roberts M.D. - 08/30/2023 11:16 AM CDT I saw and evaluated the patient, participating in the desai portions of the service. I reviewed the resident/fellow???s note. I agree with the resident/fellow???s findings and plan. Tolerating tube feeding rate of 20 ml/hr this morning. Plan is dismissal tomorrow and agree with SELINA Morris RD, that home program (see note of SELINA Morris RD) can be same as last home program using continuous feeding with Peptamen 1.5. Patient will eat also as tolerated (36,000 lips units tid with meals). Patient familiar with adjusting tube feeding based on oral intake. Zinc sulfate 220 mg twice daily for one month. Follow-up with PCP * Denis Lamar M.D. - 08/30/2023 10:51 AM CDT SUBJECTIVE Ms. Jacqueline Galvan is post procedure day 8 after percutaneous cholecystostomy tube placement.Overnight she had dark bloody output from the cholecystotomy tube. No trama as per pt and nurse. The tube was irrigated with sterile saline which demonstrated clots and chronic maroon dark blood likely venous. New bag was placed. OBJECTIVE Current Weight: 41.6 kg VITAL SIGNS Blood Pressure: 149/55, Heart Rate: (!) 38, Pulse Rate: (!) 42, Resp Rate: 18, Temperature: 36.5 ??C, SpO2: 96 % PHYSICAL EXAM RUQ: cholecystostomy tube with maroon bloody output. DIAGNOSTICS Reviewed ASSESSMENT / PLAN 68-year-old female with HIDA scan positive acute cholecystitis. S/P percutaneous cholecystostomy tube placement on 08/22/23. Now with new overnight dark bloody output. - Hgb is stable and pt is HD stable - Catheter was irrigated with saline and clots were removed. - Single incident of bloody output 8 days later. Can be due to trauma from the cathter in the GB. - Will monitor the output and should clear up. - If there is continuous dark bloody output, Page VIR can plan for ritika tube check. - If there is a change in pts clinical status page JULISSA Lamar MD VIR Fellow * Luz Marina Llanos M.S., P.T. - 08/30/2023 9:30 AM CDT Wound Therapy Inpatient Treatment Note SUBJECTIVE Patient's Name: Jacqueline Galvan Referring/Attending Provider: Rhoda Bobo M.D. Medical Diagnosis: Cholecystitis [K81.9] Payor: [facility] / Plan: [place] / Product Type: PPO / OBJECTIVE Treatment: Wound Location: R knee, coccyx Modality: Non-contact low frequency ultrasound x 6 minutes Debridement: Mechanical debridement performed with fluffed gauze. and Non- excisional sharp selective debridement performed with forceps and scissors to remove loosened slough, necrotic skin, devitalized tissue, and biofilm from R knee and coccygeal wound(s). Debridement depth: superficial/skin. Dressings: R knee: aquacelAG, 4 x 4 mepiborder Coccyx: plurogel, small sacral mepiborder Position: Patient was in supine and L sidelying position for treatment session. Education provided to patient regarding purpose of advanced modality ultrasound mist therapy and plan of care. Communication and collaboration occurred with patient's nurse; all other wounds are being managed by nursing at this time. Assessment Comorbid Conditions: Other (Comment) Personal Factors: Age, Body habitus, History of falls, Needs assistive device, Nutrition/hydration abnormality Wound Care Discharge Needs: Ongoing wound care management by patient and/or caregiver., Wound assessment recommended in 2-4 weeks by trained provider. Clinical Impression: The R knee wound presented with increased volume of yellow slough. This was minimally selectively debrided; there is continued concern for tendon exposure. The coccygeal wound presented with a ring of yellow, dry nonviable tissue that was easily debrided via forceps. Overall, this wound has reducednonviable tissue and is decreasing in area. The patient will continue to benefit from advanced modality ultrasound mist therapy 3x/week (--) as outlined in the plan of care below. Rehab Potential: Ms. Galvan has good potential to achieve established wound therapy goals within the time frame outlined below. Functional Goals and Timeframes: Goal #1: Patient's coccygeal wound will demonstrate 10% improvement in area (2.7x1.1cm)) in order to demonstrate good progress toward healing. Goal #1 Date: 09/02/23 Goal #1 Status: Slowly progressing Goal #2: Patient's R leg wound will demonstrate 10% improvement in area (2.6x2.8cm) in order to demonstrate good progress toward healing. Goal #2 Date: 09/02/23 Goal #2 Status: Slowly progressing Progress: Progressing toward goals Plan Patient agrees with the plan of care and goals. Treatment Plan: Frequency: 3 times per week Days of Treatment: Saturday, Saturday, Saturday PT Wound Duration: Until goals are met or hospital discharge PT - Next Inpatient Wound Care Appointment: 09/02/23 Plan: Continue with current plan Wound PT Plan Comments: Patient to be provided with advance modality, selective debridement, and wound cares-- 3x/week (--) -- continue to reassess pending wound response and hospital course. Treatment interventions may include: Therapeutic modalities as needed, Debridement, Wound dressing assessment, Wound cares, Offloading, Self-care/home management Time Spent with Patient Wound Select Debridement Less Than or Equal to 20 SCM (min): 20 min Time Tracking Total Treatment Time (min): 20 min Luz Marina Llanos M.S., P.T. * Adriano Kelly, Pharm.D., R.Ph., 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 Meds Renally adjusted: VTE Prophylaxis: held d/t bleeding ASSESSMENT / PLAN ID/GI - acute cholecystitis s/p percutaneous cholecystostomy drain placement on 08/21. Transfer fromICU on 08/24. Completed meropenem 500 mg IV q12h 5 day course on 08/26 Hx renal txplht - continues on prednisone 5 mg daily, tacrolimus (decreased dose from home dose 2 mg AM and 2.4 mg PM in light of supratherapeutic level of 16.4 on 08/22. ). Dose adjustments per nephrology service. Note drug interaction with amiodarone that can likely increase tacrolimus levels. Trough level ordered 08/29 AM has returned at 1.7. Adjusted dose to 0.5 mg SL BID now with concern for malabsorption. Holding mycophenolate in setting of infection. Now that antibiotics are completed, consider resuming mycophenolate if deemed clinically appropriate. CV Afib - started on amiodarone currently at 400 mg TID but decreasing to 200 mg daily on 08/29. Plan to continue for 3 months. Started on reduced dose apixaban 2.5 mg BID (technically doesn't meet criteria with only reduction factor being weight but SCr is near cutoff so reasonable to continue with reduced dose (now held d/t bleeding). Volume overload - s/p L-sided thoracentesis (transudative). Undergoing diuresis. Now transitioned to bumetanide 4 mg PO BID per neph recs. Nutrition - receiving therapeutic-M 1 tab daily, zinc 220 mg daily, selenium 150 mcg daily to replete vitamin deficiencies. Hematemesis - holding apixaban for now. Pt transitioned to pantoprazole 40 mg IV q12h. GI consulted. Monitoring Hgb trend. Possible ERCP if bleeding continues. Gorge Kelly Pharm.D., R.Ph., BCPS * Tami Simmons M.D. - 08/30/2023 6:33 AM CDT NEPHROLOGY CONSULT SERVICE - PROGRESS NOTE Hospital Day 10 INTERVAL EVENTS -underwent left-sided thoracentesis yesterday with removal of 600 mL of fluid -nutrition following for consideration of TPN, believe that nausea and vomiting is from acute illness and tube feeding was restarted at a low rate -Received 4 doses of Bumex 2 mg yesterday for a total of 8 mg -675 mL of urine recorded yesterday, 410 mL since midnight. Net positive 10 ml yesterday -BP 149/48 this AM, on room air -Labs: Hb 8.9, Na 134, K 4.5, bicarb 31, Bun 36, Cr 1.58, Mag 1.9, phos 3.8. Tacrolimus trough 1.7 SUBJECTIVE This morning, the patient reports feeling better. She was on room air and said that nausea had improved. She says that she is possibly discharging home today. OBJECTIVE Admission weight: 44.1 kg Weights for the past 120 hrs (Last 3 readings): Weight 08/27/23 0800 41.6 kg 08/26/23 1424 41.6 kg I/O 08/27 0000 08/27 2359 08/28 0000 08/28 2359 08/29 0000 08/29 2359 P.O. 440 Other 5 5 Enteric (NG/OG) Tube 60 180 30 Feedings 238 100 Crystalloid Bolus 10 Total Intake(mL/kg) 313 (7.5) 725 (17.4) 30 (0.7) Urine (mL/kg/hr) 750 (0.8) 675 (0.7) 400 (1.5) Emesis or Enteric Tube 0 Drains 10 40 10 Stool 0 0 Total Output 760 715 410 Net -447 +10 -380 Unmeasured Urine Occurrence 2 x 1 x Unmeasured Stool Occurrence 1 x 1 x Unmeasured Emesis Occurrence 2 x VITAL SIGNS Temperature: [36.7 ??C-36.8 ??C] 36.7 ??C Heart Rate: [34-55] 38 Resp Rate: [12-55] 16 Blood Pressure: (149-180)/(48-71) 149/48 SpO2: [96 %-99 %] 98 % Flow Rate (L/min): [1 L/min] 1 L/min Pulse Rate: [34-49] 40 PHYSICAL EXAMINATION General appearance: Alert, chronically ill-appearing female, cachectic, lying in bed, no acute distress Lungs: Normal work of breathing on room air slightly decreased breath sounds at bilateral bases. Nocrackles or wheezes appreciated Heart: Bradycardic, regular rhythm, no murmurs, rubs, or gallops appreciated Abdomen: Soft, scaphoid, biliary drain in place draining bilious fluid. Nontender. 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 Jacqueline Galvan is a 68 y.o. female with extensively complex medical history requiring multiple recent inpatient stays (most recent for secondary peritonitis after feeding tube placement resulting in dialysis-requiring acute kidney injury and intubation for respiratory failure) currently admitted for acute cholecystitis s/p perc cholecystostomy drain 08/21. Nephrology team consulted for ongoing PEDRITO/diuretic and immunosuppression management. PMH notable for ESKD due to unspecified GN s/p failed renal transplant in 2006 with re transplant in 2016, CAD s/p PCI (2005), HFpEF, HTN, afib not on anticoagulation, AAA, osteoporosis, malnutrition, chronic mesenteric ischemia s/p PEG placement complicated by leak and secondary peritonitis resulting in septic shock, ventilator dependence, and dialysis-requiring acute kidney injury. Overall, suspect her PEDRITO was likely in the setting of sepsis, prerenal azotemia, and tacrolimus toxicity due to supratherapeutic levels. Goal tacrolimus trough 4-6. Her tacrolimus today remained sub therapeutic likely due to poor absorption. As such, we recommend switching tacrolimus to sublingual formulation starting at 0.5 mg b.i.d.. If she remains inpatient over weekend, recommend rechecking tacrolimus level on Saturday, 08/31. If she discharges, recommend rechecking level on Saturday, 09/01. We will ensure close follow up with transplant Nephrology which is scheduled for 09/05. Would recommend continuing to hold CellCept until transplant Nephrology outpatient follow up. We recommend continuing dose of Bumex 4 mg b.i.d. given improvement in blood pressures and continued pleural effusions. Recommendations: - Immunosuppression: Tacrolimus sublingual 0.5 mg BID Goal tacrolimus trough 4-6 given several years out from transplant If remains inpatient, recheck tacrolimus trough Saturday, 08/31. If discharges, recheck Saturday, 09/01 Continue prednisone 5 mg daily Continue to hold Cellcept, will address resuming at transplant follow up - Diuretic plan Continue Bumex 4 mg PO BID Close monitoring of respiratory O2 needs - Please continue to replete lytes as appropriate - Please obtain daily Mg, phosphorus, BMP, cystatin C -Transplant neph f/u 09/05 Thank you for involving us in the care of this patient. Please page the Nephrology A pager at [phone] with any questions or concerns. We will continue to follow. Tami Simmons MD 08/30/23 Associated attestation - Daysi Mariano M.D. - 08/30/2023 2:47 PM CDT I saw and evaluated the patient, participating in the desai portions of the service. I reviewed Tami Mcdaniel M.D.'s note. I agree with the resident???s findings and plan. Additional comments: Patient with non-oliguric acute kidney injury on chronic kidney disease of renal transplant allograft in setting of cholecystitis now s/p perc ritika tube. Hospital course has been further c/b significant nausea and emesis, as well as recurrent pleural effusions requiring tapping. We have increased her diuretics in hopes of preventing further fluid accumulation and she continues to have BP room, so will keep diuretics today. In terms of her IS, her tacrolimus levels have been subtherapeutic on several checks despite increasing doses, so suspect she is not absorbing in setting of persistent N/V, so will transition to SL dosing today. She should have another tacrolimus level checked on Saturday versus Saturday if discharged. Daysi Mariano M.D. Geophysics Professor [employer] Coordinator Nephrology and Hypertension * Rhoda Roberts M.D. - 08/29/2023 2:52 PM CDT Nutrition Support Service Progress Note Date of Service: 08/29/2023 SUBJECTIVE HISTORY OF PRESENT ILLNESS The Nutrition Support Service and I reviewed the clinical notes, clinical status of the patient, nutrition program, and lab test results. Visited with patient and daughter. Nauseated mid morning with emesis. OBJECTIVE VITAL SIGNS BP (!) 171/60 (BP Location: Right arm;Upper, Patient Position: Semi-recumbent) Pulse (!) 47 Temp 36.8 ??C (Oral) Resp 15 Ht 165.1 cm Wt 41.6 kg SpO2 96% BMI 15.26 kg/m?? PHYSICAL EXAMINATION General: Alert Abdomen: Soft DIAGNOSTICS Results from last 7 days Lab Units 08/29/23 0758 08/28/23 0740 SODIUM mmol/L 135 135 CHLORIDE mmol/L 96* 95* CREATININE mg/dL 1.35* 1.34* ESTIMATED GFR EGFR mL/min/BSA 43* 43* BUN mg/dL 34* 40* GLUCOSE S mg/dL 98 99 CALCIUM mg/dL 9.5 9.3 MAGNESIUM mg/dL 2.0 2.1 PHOSPHORUS INORGANIC mg/dL 3.8 3.3 ALBUMIN g/dL 3.2* 3.4* 3.4* BILIRUBIN TOTAL mg/dL -- 0.4 ALK PHOS U/L -- 111* ALT U/L -- 23 AST U/L -- 22 ASSESSMENT / PLAN Patient had been doing very well on tube feeding pre admit and eating small amounts. Weight had been increasing slowly. We think it is the acute illness that has caused her GI symptoms and are hopeful she will again tolerate tube feeding. CT abdomen showing known vascular diease. GI not recommending further studies.. Diuresis ongoing. She was agreeable to restarting tube feeding. at a low rate today with slow advancement as tolerated using Peptamen 15. #1 Transplant Renal (HCC) #2 Malnutrition Severe Protein-Calorie (HCC) #3 Cholecystitis #4 Hyperkalemia Please page [facility] ([phone]) or [facility] ([phone]) Nutrition Support Service pager with questions. * Анна Sen C.O.TCynthia., O.T.A. - 08/29/2023 2:48 PM CDT 08/29/23 1447 Reason Therapy Missed Reason Therapy Missed Patient declined therapy (Patient declined in PM due to nausea; occupational therapy will follow up tomorrow as able/ appropriate.) Gurpreet MasonTCynthia., O.T.A. * Pari Egan P.T., M.H.A. - 08/29/2023 2:16 PM CDT 08/29/23 1415 General Reason Therapy Missed Patient declined therapy Patient declined PT services secondary to feeling fatigued and nauseous. Per RN, patient had recently received Zofran prior to PT arrival. Patient requested PT return tomorrow. Pari Egan P.T., M.H.A. 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 Meds Renally adjusted: meropenem, VTE Prophylaxis: held for bleeding ASSESSMENT / PLAN ID/GI - acute cholecystitis s/p percutaneous cholecystostomy drain placement on 08/21. Transfer fromICU on 08/24. Continuing on meropenem 500 mg IV q12h for 5 day course (through 08/26) Hx renal txplht - continues on prednisone 5 mg daily, tacrolimus (decreased dose from home dose 2 mg AM and 2.4 mg PM in light of supratherapeutic level of 16.4 on 08/22. ). Dose adjustments per nephrology service. Note drug interaction with amiodarone that can likely increase tacrolimus levels. Most recent tacrolimus level 2.4 from 08/27. Concern for malabsorption with frequent vomiting. Tacrolimus changed to 0.6 mg granules via PEG tube BID. Holding mycophenolate in setting of infection. CV Afib - started on amiodarone currently at 400 mg TID but decreasing to 200 mg daily on 08/29. Plan to continue for 3 months. Started on reduced dose apixaban 2.5 mg BID (technically doesn't meet criteria with only reduction factor being weight but SCr is near cutoff so reasonable to continue with reduced dose. Volume overload - s/p L-sided thoracentesis (transudative). Undergoing diuresis. Now transitioned to bumetanide 4 mg PO BID per neph recs. Nutrition - receiving therapeutic-M 1 tab daily, zinc 220 mg daily, selenium 150 mcg daily to replete vitamin deficiencies. Hematemesis - holding apixaban for now. Pt transitioned to pantoprazole 40 mg IV q12h. GI consulted. Monitoring Hgb trend. Possible ERCP if bleeding continues. Gorge Kelly Pharm.D., R.Ph., BCPS * Daysi Mariano M.D. - 08/29/2023 10:37 AM CDT NEPHROLOGY CONSULT SERVICE - PROGRESS NOTE Hospital Day 9 INTERVAL EVENTS - Patient seen by Urology for findings of locules of gas within the bladder and renal collecting systems of both renal allografts on CT A/P. Thought due to recent Granados catheter. UCx in process. - CT also demonstrated increased moderate bilateral pleural effusions - UOP 900 cc + 1 unmeasured void - Remains very hypertensive, started on amlodipine - Tacrolimus level quite low, transitioned to SL tacrolimus SUBJECTIVE Patient still feeling unwell, throwing up and very nauseous. OBJECTIVE Admission weight: 44.1 kg Weights for the past 120 hrs (Last 3 readings): Weight 08/27/23 0800 41.6 kg 08/26/23 1424 41.6 kg I/O 08/26 0000 08/26 2359 08/27 0000 08/27 2359 08/28 0000 08/28 2359 P.O. 583 Other 5 5 Enteric (NG/OG) Tube 210 60 60 Feedings 125 238 Crystalloid Bolus 10 Total Intake(mL/kg) 923 (22.2) 313 (7.5) 60 (1.4) Urine (mL/kg/hr) 700 (0.7) 750 (0.8) 675 (1.5) Emesis or Enteric Tube 0 0 Drains 0 10 40 Total Output 700 760 715 Net +223 -447 -655 Unmeasured Urine Occurrence 2 x 2 x Unmeasured Emesis Occurrence 1 x 2 x VITAL SIGNS Temperature: [36.8 ??C] 36.8 ??C Heart Rate: [47-52] 47 Resp Rate: [15-34] 15 Blood Pressure: (162-190)/(60-79) 171/60 SpO2: [96 %-99 %] 96 % Flow Rate (L/min): [1 L/min] 1 L/min Pulse Rate: [46-53] 47 PHYSICAL EXAMINATION General appearance: alert and interactive Lungs: normal respiratory effort Heart: normal S1, S2; no murmur, gallop or rub Abdomen: , normal, benign Extremities: no edema DIAGNOSTICS Results from last 7 days Lab Units 08/29/23 0758 08/28/23 1858 08/28/23 1123 HEMOGLOBIN g/dL 9.2* 8.6* 9.2* WBC x10(9)/L 9.3 -- 11.1* PLATELETS AUTO x10(9)/L 497* -- 458* Last 2 results Lab Units 08/29/23 0758 08/28/23 0740 SODIUM mmol/L 135 135 POTASSIUM mmol/L 4.5 4.5 BICARBONATE S mmol/L 30* 28 BUN mg/dL 34* 40* CREATININE mg/dL 1.35* 1.34* CALCIUM mg/dL 9.5 9.3 PHOSPHORUS INORGANIC mg/dL 3.8 3.3 MAGNESIUM mg/dL 2.0 2.1 ASSESSMENT / PLAN # 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 Jacqueline Galvan is a 68 y.o. female with extensively complex medical history requiring multiple recent inpatient stays (most recent for secondary peritonitis after feeding tube placement resulting in dialysis-requiring acute kidney injury and intubation for respiratory failure) currently admitted for acute cholecystitis s/p perc cholecystostomy drain 08/21. Nephrology team consulted for ongoing PEDRITO/diuretic and immunosuppression management. PMH notable for ESKD due to unspecified GN s/p failed renal transplant in 2006 with re transplant in 2016, CAD s/p PCI (2005), HFpEF, HTN, afib not on anticoagulation, AAA, osteoporosis, malnutrition, chronic mesenteric ischemia s/p PEG placement complicated by leak and secondary peritonitis resulting in septic shock, ventilator dependence, and dialysis-requiring acute kidney injury. Overall, suspect her PEDRITO was likely in the setting of sepsis, prerenal azotemia, and tacrolimus toxicity due to supratherapeutic levels. Goal tacrolimus trough 4-6. She remains significantly hypertensive this morning and CT demonstrates worsening pleural effusions. She was also found to have gas inthe urinary bladder and renal collecting system on CT scan, concerning for underlying infection. Urine culture is pending, but she got a dose of meropenem already and Urology saw patient who thought that gas seen in collecting system thought due to recent Granados. Recommendations: - Immunosuppression: Tacrolimus granules 0.6 mg b.i.d. Goal tacrolimus trough 4-6 given several years out from transplant Recheck trough Saturday, 08/29 Continue prednisone 5 mg daily Continue to hold Cellcept given active infection - Diuretic plan Increase Bumex to 4 mg PO BID given worsening effusions - may be driving her hypertension due to fluid retention. Close monitoring of respiratory O2 needs - Please continue to replete lytes as appropriate - Please obtain daily Mg, phosphorus, BMP, cystatin C Thank you for involving us in the care of this patient. Please page the Nephrology A pager at [phone] with any questions or concerns. We will continue to follow. Daysi Mariano M.D. Geophysics Professor [employer] Ac[employer] Coordinator Nephrology and Hypertension 08/29/23 * Gabrielle Hernandez M.D. - 08/29/2023 6:28 AM CDT T Medicine 3 ([facility]) Progress Note SUBJECTIVE Continues to require 1L NC to maintain oxygen saturation. Underwent thoracentesis with IP yesterdayon the right side with 525 mL removed. She did not have nausea overnight. CT abdomen/pelvis obtained yesterday to evaluate vomiting, abdominal pain, with findings of gas within the bladder. Discussed findings with Urology, who feel this is likely due to recent granados, without concern for gas forming infection. UA without evidence of infection. I have reviewed the current medication list. OBJECTIVE VITAL SIGNS Temperature: [36.8 ??C-36.9 ??C] 36.8 ??C Heart Rate: [47-53] 52 Resp Rate: [15-22] 15 Blood Pressure: (162-190)/(64-79) 162/71 SpO2: [94 %-99 %] 98 % Flow Rate (L/min): [1 L/min] 1 L/min Pulse Rate: [46-53] 53 PHYSICAL EXAM Alert and oriented. Patient lying in bed on nasal cannula, chronically ill appearing, cachectic. Small red lesion on right forehead, patient reports from fall during last hospitalization, improving Minimally tender to palpation right upper quadrant, epigastric region without rebound or guarding. Pericholecystic drain in place draining dark yellow bilious fluid. DIAGNOSTICS I have personally reviewed the laboratory data and imaging since admission, and in/outs for past 72hours. ASSESSMENT / PLAN Ms. Galvan is a 68 y.o. 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 Currently admitted for management of acute cholecystitis status post percutaneous cholecystostomy drain placed 08/22/2023. Her ICU course included left-sided thoracentesis due to volume overload which was noted to be transudative and after her drain placement developed right-sided pleural effusion which was also drained and appeared more consistent with an exudative effusion. Cultures have been negative and she will complete course of antibiotics with meropenem which ends on 08/27/2023. 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 Currently she is on amiodarone to attempt conversion to sinus rhythm. She will require vision exam on discharge as well as a 2 week MOME and Cardiology follow up to monitor her AFib and bradycardia. Repeat echocardiogram revealed resolved pericardial effusion. Her oxygen status remains stable, tolerating 1L NC but unable to wean further. She has evidence of bilateral pleural effusions on bedside echocardiogram and Interventional Pulmonology continuing withbedside thoracentesis. She has a complex history of malnutrition with chronic mesenteric ischemia, PEG placement with perforation, and continued nausea, vomiting, abdominal pain. Unfortunately, she had an episode of hematemesis. Discussed with GI bleed, who feel she is at high risk of complication with sedation required for endoscopy. She has not had recurrent episode, no melena, and she's remained hemodynamically stable. Will continue to monitor for now. We appreciate the recommendations from our multidisciplinary nutrition team regarding tube feeding recommendations for improved tolerability. Plan for today: Appreciate Interventional Pulmonology recommendations regarding subsequent thoracentesis with goal to wean oxygen completely Appreciate Nephrology recommendations Appreciate multidisciplinary nutrition team recommendations regarding tolerability of tube feeds Increase bumetanide to 4 mg PO BID for today # acute cholecystitis s/p percutaneous cholecystostomy tube (08/22/23) status post 5 day course of IV meropenem (08/23/23 - 08/27/23) plan for tube exchange in 3 months per IR, will need 5 mL drain flushes twice daily #Nausea, vomiting #Abdominal pain #Likely upper gastrointestinal bleed with hematemesis # Mesenteric ischemia with PEG tube # Malnutrition, BMI 15, acute on chronic weight loss Chronic weight loss has been evaluated, thought to be multifactorial secondary to complex comorbidities, ESRD, poor oral intake given chronic mesenteric ischemia, limited ability to tolerate tube feeds. She had episode of hematemesis. Multidisciplinary Nutrition consult for recommendations regarding tolerability of tube feeds Vitamin repletion with multivitamin, zinc sulfate 220 mg BID, selenium 150 mcg Continue Creon TID with meals Continue thiamine 100 mg daily Continue to monitor hematemesis, serial hemoglobins, vital status. Holding off on endoscopy given risk of sedation Encourage oral diet # left pleural effusion, s/p Thoracentesis 08/21, likely transudative # acute hypoxemic respiratory failure 2/2 pleural effusions # worsening R pleural effusion on nasal cannula, wean as tolerated oxygen study with RT given inability to completely wean appreciate IP recommendations for subsequent thoracentesis given evidence of bilateral fluid on bedside echocardiogram # AFib Jan Vasc 4, not on anticoagulation # query tachy-bennie, sick sinus, not on beta blockade # pericardial effusion without tamponade physiology # HFpEF ( EF 54%, 2/3 LV diastolic fx) # coronary artery disease status post PCI 2005 # HTN Per HRS, minimal burden Afib in the setting of illness. Not good candidate permanent device given active infection and no indication PPM. If recurrent -> 2 week MoMe and outpatient CV followup. continue amiodarone 400mg TID 10 days, then 200mg daily for 3 months (start 08/29) 2 week MoMe on discharge with Cardiology follow up Ophthalmology/prop maker followup outpatient Discontinue Eliquis in the setting of likely upper GI bleed Continue Lipitor 80 mg daily Amlodipine 10 mg for hypertension # ESRD w donor transplant (2006, 2016), iso GN # PEDRITO # Anion gap metab acidosis daily BMP, Mag, Phos Strict I&Os, daily weights K >4, Mg >2 Avoid nephrotoxic medications Baseline creatinine: 1.2-1.4 nephrology following, appreciate recs Goal tacro 4-6, currently tacrolimus 0.6 mg granules via G tube Bumex 4 mg PO BID today hold Cellcept iso infection cont prednisone 5mg daily # major depression disorder sertraline 25 mg daily Diet: NPO pending EGD Tubes/lines: PIV VTE prophylaxis: SCDs Disposition: Home, Home with Home Health, and Alf Facility with expected discharge date Severe Malnutrition The patient meets the ASPEN Criteria of malnutrition based on: Energy Intake: No Change Interpretation of Weight Loss: No Change Body Fat: Severe Loss Muscle Mass: Severe Loss Fluid Accumulation: Absent Reduced Citrus Picker Strength: Not applicable This is in the context of Chronic Illness. Malnutrition Present Upon Admission: Yes Agree with Registered Dietitian's assessment and treatment plan: Interventions: Enteral nutrition, Vitamin and mineral supplements Plan discussed with [facility] Medicine 3 ([facility]) Talent Acquisition Coordinator, Dr. Cristi Bobo, who was present during desai portions of the evaluation today. Please page the T Medicine 3 ([facility]) service pager at [phone] with any questions. Gabrielle Hernandez M.D. Associated attestation - Rhoda Bobo M.D. - 08/30/2023 7:54 AM CDT I saw and evaluated the patient, participating in the desai portions of the service. I reviewed the resident/fellow???s note. I agree with the resident/fellow???s findings and plan. * Ivan Oliver M.D. - 08/28/2023 3:16 PM CDT GI Bleed Progress Note Ms. Galvan is a 68-year-old female with medical comorbidities including mesenteric ischemia, ESRDstatus post renal transplant x2, CAD, AAA, malnutrition status post PEG tube placement, atrial fibrillation not on anticoagulation, and recent episode of cholecystitis. Patient underwent ERCP on 08/21/2023 during which a biliary sphincterotomy was performed, a trans papillary stent was placed, and a plastic biliary stent was placed. Patient has been doing well since ERCP, however yesterday evening was witnessed by nursing to have a single episode of hematemesis. Order was then placed for upper endoscopy to further evaluate. Labshave been relatively stable, with hemoglobin between 9 and 10 over the last few days. Vital signs have been stable since his episode of hematemesis. Patient has had no further episodes of vomiting since this initial episode. No melena or hematochezia noticed. CT Abdomen without IV contrast was obtained and demonstrated interval placement of cholecystostomy tube and biliary stents without any organized or drainable fluid collections. There was also noted to be diffuse vascular disease and 5 cm aortic aneurysm. I reviewed the case with GI bleed consult Dr. Johnson and Dr. Telles who performed the initial ERCP. We would favor avoiding further endoscopic procedures at this time given low likelihood of active GIbleeding and multiple medical comorbidities leading to increased risk of any anesthesia procedure. S phincterotomy bleeding would be unlikely to present as hematemesis. Would recommend continuing to trend hemoglobin on a daily basis. Please reach out to GI bleed team if any concern for further bleeding. If there are further episodes of bleeding, would recommend ERCP as next step in evaluation. * Salvatore Burt R.N., C.W.C.N. - 08/28/2023 12:14 PM CDT [facility] Wound RN following up to assess Jacqueline Galvan skin alterations. Wound assessment, pain, and Shady score noted in the flowsheet. The patient consented to photography of the affected area for clinical trending purposes. Images were taken and are available in QREADS. History: Per provider note, Mrs. Jacqueline Galvan is a 68 y.o. female who presents with acute cholecystitis. 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 Imaging studies at outside hospital suggestive of acute cholecystitis. Assessment: The patient was assessed while in bed with PT wound care team. The coccyx wound is now mainly with granulation tissue and can be staged as a stage 3 PI. The right forehead wound has been significantly improved. 08/28/23 1020 Wound 08/20/23 Pressure Injury Stage 3 Coccyx Date First Assessed/Time First Assessed: 08/20/23 1135 Present on Original Admission: Yes Primary Wound Type: Pressure Injury Pressure Injury Staging: Stage 3 Location: Coccyx *Shape Round / oval *Wound Length (cm) 1.8 cm *Wound Width (cm) 0.7 cm Wound Surface Area 1.26 cm^2 *Wound Bed Open;Red;[place] Odor None *Exudate Amount Scant Drainage Description Serosanguineous Ebony-wound Assessment Blanchable erythema;Dry Treatments Cleansed Wound Cleansed with Normal saline [employer] Non-contact low frequency ultrasound (by PT wound care) *Primary Dressing Wound gel (plurogel) *Primary Dressing Frequency of Change Daily & PRN Primary Dressing Changed Changed *Secondary Dressing Foam *Secondary Dressing Frequency of Change Daily & PRN Secondary Dressing Changed Changed Changed by Wound home economics expert;Physical therapist Lengthy Treatment > 30 minutes > 30 minutes Ongoing management Nursing;Physical Therapy;Wound/penology teacherfire pilot done by WOC RN? Yes BWAT Size 1-Length x width [...] Undermining 1-None present BWAT Necrotic Tissue Type 2-White/cruz non-viable tissue and/or non-adherent yellow slough BWAT Necrotic Tissue Amount 2-<25% of wound bed covered BWAT Exudate Type 3-Serosanguinous: thin, watery, pale red/pink BWAT Drainage Amount 2-Scant, wound moist but no observable exudate BWAT Skin Color Surrounding Wound 1-[place] or normal for ethnic group BWAT Peripheral Tissue Edema 1-No swelling or edema BWAT Peripheral Tissue Induration 1-None present BWAT Granulation Tissue 2-Bright, beefy red, 75-100% of wound filled and/or tissue overgrowth BWAT Epithelialization 5-<25% wound covered BWAT Total Score 26 Wound 08/21/23 Knee Anterior;Right;Lower Multifactorial wound Date First Assessed/Time First Assessed: 08/21/23 0900 Present on Original Admission: Yes Location:Knee Wound Location Orientation: Anterior;Right;Lower Wound Description (Comments): Multifactorial wound *Shape Round / oval *Wound Length (cm) 2.2 cm *Wound Width (cm) 3 cm Wound Surface Area 6.6 cm^2 *Wound Bed Open;Fibrin/Slough;Yellow;[place] Odor None *Exudate Amount Scant Drainage Description Serous Ebony-wound Assessment Erythema Treatments Cleansed Wound Cleansed with Normal saline [employer] Non-contact low frequency ultrasound (by PT wound care) *Primary Dressing Gelling fiber/Hydrofiber (aquacel Ag) *Primary Dressing Frequency of Change Daily & PRN Primary Dressing Changed Changed *Secondary Dressing Foam (Mepilex lite) *Secondary Dressing Frequency of Change Daily & PRN Secondary Dressing Changed Changed Changed by Physical therapist;Wound home economics expert Lengthy Treatment > 30 minutes > 30 minutes Ongoing management Nursing;Wound/penology teacher;Physical Therapy Wound 07/09/23 Hematoma Head (Comment) Right Forehead Date First Assessed: 07/09/23 Present on Original Admission: Yes Primary Wound Type: Hematoma Location: Head (Comment) Wound Location Orientation: Right Wound Description (Comments): Forehead *Shape Round / oval *Wound Length (cm) 0.6 cm *Wound Width (cm) 0.6 cm Wound Surface Area 0.36 cm^2 *Wound Bed Red;[place] Odor None *Exudate Amount None Ebony-wound Assessment Intact Treatments Cleansed Wound Cleansed with Normal saline *Primary Dressing Gelling fiber/Hydrofiber (Aquacel Ag) *Primary Dressing Frequency of Change Daily & PRN Primary Dressing Changed Changed *Secondary Dressing Foam (Mepilex lite) *Secondary Dressing Frequency of Change Daily & PRN Secondary Dressing Changed Changed Changed by Wound home economics expert Lengthy Treatment > 30 minutes > 30 minutes Ongoing management Nursing;Wound/penology teacher Focused assessment completed DRESSING RECOMMENDATIONS: #1 Pressure Injury Stage 3 Coccyx -Cleanse the wound with Vashe wound cleanser. Pat dry. -Apply a layer of PluroGel, 3mm thick, directly to the wound bed. -Ensure that the PluroGel covers the wound completely. -Cover with a sacral Mepilex border. -Change once daily and PRN. #2 Knee Anterior;Right;Lower Multifactorial wound #3 Hematoma Head (Comment) Right Forehead -Cleanse the wound with Vashe wound cleanser. Pat dry. -Place Aquacel Ag and cut to slightly larger than the wound, to ensure it comes into contact with the entire wound bed. Change once daily. -Cover with a Mepilex foam or Mepilex lite -Change once daily and PRN. Recommended interventions for pressure redistribution and shear reduction: Offload heels on pillows at all times when in bed. Full 30 degree turns side to side every 2 hours with supine positioning only for meals. Reposition at least every hour while in [...] incontinence episode and for routine hygiene cares. Apply Zinc Oxide Paste (PROTECT/Z Guard). Reapply after each episode of incontinence and routine hygiene cares as directed. Consult recommendations: Physical therapy was consulted to assess for advanced wound therapies. Nutrition Consult was placedfor pressure injury needs.(08/21/23) Education: Discussed the plan of care with the patient and nursing. They agree to the plan. The WOC RN will continue to see the patient, contact or reconsult for worsening wounds or new wounds. Electronically signed by: Salvatore Burt R.N., C.W.C.N. 08/28/23 12:14 PM CDT * Lynette Saenz M.S., RDN, LD - 08/28/2023 12:11 PM CDT Nutrition Care Plan Follow Up Clinical Nutrition continues to follow patient for tube feeding recommendations/management ASSESSMENT Completed visit with patient today as part of face to face care. Current Nutrition (since admission): Visit with patient this morning. She endorses ongoing nausea and emesis this morning. Tube feeds have been stopped. Service ordered further workup with KUB to assess for bowel obstruction. Patient reported feeling early satiety and very full after bites of food or sips of fluids. She feels thirsty but lack of appetite with nausea/emesis. Nutrition Support Service has been consulted to assess complex nutrition situation. Percentage of Meals Eaten for the past 72 hrs: Percent Meals Eaten (%) 08/28/23 1000 0 08/27/23 2010 0 08/27/23 1205 0 08/27/23 1007 0 08/26/23 1700 25 08/26/23 1000 Other (Comment) 08/25/23 1910 0 GI Tubes (Adults) Percutaneous endoscopic;Gastrostomy 14 Fr Left;Lower;Quadrant (abdomen) (Active) Placement Date/Time: 08/21/23 1439 GI Tube Type: Percutaneous endoscopic;Gastrostomy Low Profile? :No Balloon, Bumper, or Other?: Balloon Balloon Volume: 5 mL GI Tube Size: 14 Fr Length (cm): 3.5 cmTube Location: Left;Lower;Quadrant (abdomen... Current nutrition orders: Current Diet No oral nutrition, no tube feeding starting at 08/27 1019 GI Function: Last BM Date: 08/27/23, [place] Stool Chart: Type 7: Watery, no solid pieces, Passing Flatus: Yes Pertinent Labs: Last 3 results Lab Units 08/28/23 0740 08/27/23 0745 08/26/23 0733 SODIUM mmol/L 135 138 135 POTASSIUM mmol/L 4.5 4.6 4.6 CHLORIDE mmol/L 95* 99 99 BUN mg/dL 40* 47* 47* CREATININE mg/dL 1.34* 1.39* 1.40* PHOSPHORUS INORGANIC mg/dL 3.3 3.7 2.2* CALCIUM mg/dL 9.3 9.1 8.8 MAGNESIUM mg/dL 2.1 2.3 2.5* Weight since admission: Height: 165.1 cm Admission Weight: 44.1 kg (08/20/2023) Current Weight: 41.6 kg [place] Body Weight (Calculated) : 56.9 kg BMI (Calculated): 15.3 kg/m?? Weight change since admission: -2.5 kg Net IO Since Admission: -1,822.19 mL [08/28/23 1211] Estimated Needs: Total Calorie Needs: 5999-9134 calories/day Method to Estimate Energy Needs: kcal/kg (25-30 kcal/kg) Weight Used for Equation Calculations: 45.1 kg Total Protein Needs: 54 - 68 grams/day Method to Estimate Protein Needs (g/kg): 1.2 - 1.5 gm/kg Weight Used to Calculate Protein Needs (Kg): 45.1 kg Nutrition Diagnosis: Altered GI function related to history of mesenteric insufficiency and pancreatic atrophy as evidenced by need for enteral support with pancreatic enzymes. Nutrition Diagnosis Reassessment: Ongoing PLAN Nutrition Intervention: Enteral nutrition, Vitamin and mineral supplements Nutrition parameter to monitor: Meals/Supplement Intake, Weight Status, Enteral, Skin Integrity, Wound Healing, Fluid Balance, Pertinent Labs, Chewing/Swallowing, Nausea/Vomiting/Diarrhea ASPEN Criteria Malnutrition Status: Severe Malnutrition Recommendations: Nutrition Support Service consult placed. Clinical Nutrition will continue to follow. For questions about patient's nutritional care please contact pager [phone] on weekdays 07:30-16:00 or [phone] on weekends/holidays. * Katarzyna Gomez R.N. - 08/28/2023 11:56 AM CDT SUBJECTIVE Discharge planning- reconnect to previous services. OBJECTIVE Currently admitted to [place] [address]. Patient is not medically ready for discharge. ASSESSMENT / PLAN ASSESSMENT The patient was not assessed at this time. PLAN Patient to discharge with home health care. Home Medical Care - Admitted Since 08/20/2023 Service Provider Selected Services Address Phone Fax Patient Preferred [facility] [phone] [address] -- Contact: nursing Services: [facility] 2-3 times per week, home health aid (8 hours per day M-F) NURSING: - Complete documentation in the Discharge Navigator including Nursing Report Info and Facility/NextLevel of Care Info - Call report and arrange for the patient???s first visit. - Send required packet of dismissal information with patient, including After Visit Summary and advance directive. PRIMARY SERVICE: - Please provide a non-[place] home health order for resumption of previous services by home health care on the After Visit Summary. If additional services are needed, please provide order. - Communicate with the patient???s local primary care provider by telephone for writing of home care orders. This needs to be done to help prevent discharge delays. A copy of the After Visit Summary needs to be sent there as well. CASE MANAGEMENT: -Reviewed patient's insurance coverage for the services noted above. The patient appear(s) to have an understanding of this. -Will continue to follow and assist if needs arise. 2. Oxygen Reconnect : Durable Medical Equipment - Admitted Since 08/20/2023 Service Provider Selected Services Address Phone Fax Patient Preferred [facility] Durable Medical Equipment [phone] [facility] [address] -- Contact: Intake Respiratory Equipment : Tanks and concentrator Oxygen provider reports patient???s current orders are for 2 liters continuous. NURSING: - Arrange transportation oxygen tank if needed. - If new oxygen requirements are needed, assist primary service with new prescription and fax to provider. PRIMARY SERVICE: - Complete and sign new oxygen prescription if needed. CASE MANAGEMENT: -Reviewed patient's insurance coverage for the services noted above. The Silvino appear(s) tohave an understanding of this. -Will continue to follow and assist if needs arise. 3. Tube feeds provided by [facility]. Dialysis/Infusion - Admitted Since 08/20/2023 Service Provider Selected Services Address Phone Fax Patient Preferred [facility] Infusion and IV Therapy [address] [facility] [address] [phone] -- Sasha Gomez R.N. 08/28/23 * Kalyn Tuttle, O.T., O.T.D. - 08/28/2023 10:51 AM CDT 08/28/23 1051 General Reason Therapy Missed Medical hold Attempted OT session in a.m. and patient requested therapist to return later. Per PT patient continued to experience frequent episodes of vomiting this a.m. with plans for further medical workup. Will follow up with OT services on 08/29/2023 as able and appropriate. Kalyn Tuttle O.T., O.T.D. * Michael Hagen P.T., D.P.T. - 08/28/2023 10:27 AM CDT 08/28/23 1026 Reason Therapy Missed Reason Therapy Missed Medical hold Patient experienced hematemesis this morning. She continues to experience frequent episodes of vomiting and is having further medical workup done. Physical therapy will hold today and treat tomorrow,08/29/2023, as appropriate. * Patricia Zimmer P.T., Saurabh.P.T. - 08/28/2023 10:15 AM CDT Wound Therapy Inpatient Treatment Note SUBJECTIVE Patient's Name: Jacqueline Galvan Referring/Attending Provider: Rhoda Bobo M.D. Medical Diagnosis: Cholecystitis [K81.9] Reason for Referral: WD: Advanced wound cares - coccyx and R leg Onset Date: 08/20/23 Payor: [facility] / Plan: [facility] [place] / Product Type: PPO / Family/Caregiver Present: No Patient/Caregiver Goals: Wound healing Patient Comments: Patient received resting in bed, agreeable to participation in wound cares. Emesis/nausea limited session. OBJECTIVE Treatment: Wound Location: R knee, coccyx Modality: Non-contact low frequency ultrasound x 6 minutes Debridement: Mechanical debridement performed with fluffed gauze. and Non- excisional sharp selective debridement performed with forceps to remove loosened slough, necrotic skin, devitalized tissue, and biofilm from R knee and coccygeal wound(s). Debridement depth: superficial/skin. Dressings: R knee: aquacelAG, mepilite Coccyx: plurogel, small sacral mepiborder Position: Patient was in supine and L sidelying position for treatment session. Education provided to patient regarding purpose of advanced modality ultrasound mist therapy and plan of care. Communication and collaboration occurred with patient's nurse and DAMIAN Chase RN; all other wounds are being managed by nursing at this time. Team Communication: Patient's nurse was contacted and patient's status was discussed, Other (comment) (WOC RN) Assessment Comorbid Conditions: Other (Comment) Personal Factors: Age, Body habitus, History of falls, Needs assistive device, Nutrition/hydration abnormality Wound Care Discharge Needs: Ongoing wound care management by patient and/or caregiver., Wound assessment recommended in 2-4 weeks by trained provider. Clinical Impression: The patient was seen in conjunction with the DAMIAN RN. The R knee wound presented with increased volume of yellow, moderately adherent slough. Some of this was carefully debrided via forceps; there is continued concern for tendon exposure. The coccygeal wound presented with a ring of yellow, dry nonviable tissue that was easily debrided via forceps. Overall, this wound has reduced nonviable tissue and is decreasing in area. The patient will continue to benefit from advanced modality ultrasound mist therapy 3x/week (-W-) as outlined in the plan of care below. Rehab Potential: Ms. Galvan has good potential to achieve established wound therapy goals within the time frame outlined below. Functional Goals and Timeframes: Goal #1: Patient's coccygeal wound will demonstrate 10% improvement in area (2.7x1.1cm)) in order to demonstrate good progress toward healing. Goal #1 Date: 08/29/23 Goal #1 Status: Slowly progressing Goal #2: Patient's R leg wound will demonstrate 10% improvement in area (2.6x2.8cm) in order to demonstrate good progress toward healing. Goal #2 Date: 08/29/23 Goal #2 Status: Slowly progressing Progress: Progressing toward goals Plan Patient agrees with the plan of care and goals. Treatment Plan: Frequency: 3 times per week Days of Treatment: Saturday, Saturday, Saturday PT Wound Duration: Until goals are met or hospital discharge PT - Next Inpatient Wound Care Appointment: 08/30/23 Plan: Continue with current plan Wound PT Plan Comments: Patient to be provided with advance modality, selective debridement, and wound cares-- 3x/week (-W-) -- continue to reassess pending wound response and hospital course. Treatment interventions may include: Therapeutic modalities as needed, Debridement, Wound dressing assessment, Wound cares, Offloading, Self-care/home management Time Spent with Patient Wound Select Debridement Less Than or Equal to 20 SCM (min): 20 min Time Tracking Total Treatment Time (min): 20 min Cassandra Zimmer P.T., Saurabh.P.TMarlys * Tami Simmons M.D. - 08/28/2023 6:31 AM CDT NEPHROLOGY CONSULT SERVICE - PROGRESS NOTE Hospital Day 8 SUBJECTIVE Yesterday, the patient had a drop in urine output and had only produced 250 cc of urine by 7:00 a.m. on her home torsemide and was slightly positive. She also remained hypertensive. As such, diureticdosing was switched to Bumex 2 mg p.o. b.i.d. from home torsemide due to concern for malabsorption.Tacrolimus 0.5 mg and 1 mg was continued given tacro trough of 4.1. This morning, the patient was not feeling well. She endorsed significant nausea during the time of our visit and had vomited this morning. Vomitus looked red in appearance. She says that she feels asthough her abdomen is very full and feels as though suggest drank a bunch of water. She remains significantly hypertensive now with BP of 186/66, remains on 1 L nasal cannula. She had a total of 700 cc of urine output yesterday, net positive 223 mL. 960 ml urine output over past 24 hours. She has had 260 mL of urine output since midnight. Labs: Hb 9.2, plt 458, WBC 11.1, Na 135, K 4.5, bicarb 28, BUN 40, creatinine 1.34 OBJECTIVE Admission weight: 44.1 kg Weights for the past 120 hrs (Last 3 readings): Weight 08/27/23 0800 41.6 kg 08/26/23 1424 41.6 kg 08/24/23 0400 43.3 kg I/O 0408/25 P.O. 260 583 Other 5 5 5 Enteric (NG/OG) Tube 210 210 30 Feedings 564 125 238 Intermittent Medications 50 Total Intake(mL/kg) 1089 (26.2) 923 (22.2) 273 (6.6) Urine (mL/kg/hr) 550 (0.6) 700 (0.7) 250 (0.9) Emesis or Enteric Tube 0 Drains 5 0 10 Stool 0 Total Output 555 700 260 Net +534 +223 +13 Unmeasured Urine Occurrence 2 x 2 x 1 x Unmeasured Stool Occurrence 1 x Unmeasured Emesis Occurrence 1 x VITAL SIGNS Temperature: [36.5 ??C-36.8 ??C] 36.8 ??C Heart Rate: [42-48] 46 Resp Rate: [13-39] 15 Blood Pressure: (148-186)/(61-66) 186/66 SpO2: [92 %-96 %] 96 % Flow Rate (L/min): [1 L/min] 1 L/min Pulse Rate: [40-102] 45 PHYSICAL EXAMINATION General appearance: Alert, chronically ill-appearing female, cachectic, lying in bed, vomiting, in mild distress Lungs: Normal work of breathing on 1 L nasal cannula, slightly decreased breath sounds at bilateralbases. No crackles or wheezes appreciated Heart: Bradycardic, regular rhythm, no murmurs, rubs, or gallops appreciated Abdomen: Soft, scaphoid, biliary drain in place draining bilious fluid. Nontender. 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 Jacqueline Galvan is a 68 y.o. cisfemale w/ extensively complex course requiring multiple recent inpatient stays, currently admitted for acute cholecystitis s/p perc cholecystostomy drain 08/21. Nephrology team consulted for ongoing PEDRITO/diuretic and immunosuppression management. 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 Overall, suspect her PEDRITO was likely in the setting of sepsis, prerenal azotemia, and tacrolimus toxicity. Her tacrolimus level is now subtherapeutic today, which I suspect is in the setting of vomiting. As such, we will recommend switching her to tacrolimus granules through her G-tube at 0.6 mg b.i.d. Would recommend rechecking tacrolimus trough on Saturday, 07/01. Goal tacrolimus trough 4-6. She remains significantly hypertensive this morning, although she appears euvolemic and creatinine remains at baseline. She was vomiting this morning which could be part of the reason for her hypertension. Amlodipine was increased to 10 mg daily yesterday, which will likely take several days to take effect. Unfortunately, we are limited with starting an ROMINA inhibitor or an ARB in her given her residual kidney function. We are also limited if initiating Coreg given she was bradycardic. We will continue to monitor her blood pressures closely after increased dose of amlodipine. She was also found to have gas in the urinary bladder and renal collecting system on CT scan today, concerning for underlying infection. She got a dose of meropenem today, which would hopefully cover any underlying infection. Recommend correlating with urinalysis and urine culture as well as transplant ID consult. Recommendations: - Immunosuppression: Tacrolimus granules 0.6 mg b.i.d. Goal tacrolimus trough 4-6 given several years out from transplant Recheck trough 08/29 Continue prednisone 5 mg daily Continue to hold Cellcept given active infection - Diuretic plan Continue Bumex 2 mg PO BID Would target net even fluid status given prior escalation needs due to tenuous respiratory status. Close monitoring of respiratory O2 needs -Continue amlodipine 10 mg daily - Please continue to replete lytes as appropriate - Please obtain daily Mg, phosphorus, BMP, cystatin C - Nephrology will continue to follow This case was discussed with Neph A pre owned sales consultant, Dr. Mariano. [place] [phone] with questions. Tami Simmons M.D. Associated attestation - Daysi Mariano M.D. - 08/28/2023 11:14 PM CDT I saw and evaluated the patient, participating in the desai portions of the service. I reviewed Tami Mcdaniel M.D.'s note. I agree with the resident???s findings and plan. Additional comments: Patient with non-oliguric acute kidney injury on chronic kidney disease of renal transplant allograft in setting of cholecystitis. Patient with significant nausea and emesis today, but also very hypertensive. Will recommend adjusting of BP meds as per below and also transitioning her tacrolimus to SL formulation given likely not absorbing due to significant nausea and vomiting. Daysi Mariano M.D. Geophysics Professor Talent Acquisition Coordinator Nephrology and Hypertension * Gabrielle Hernandez M.D. - 08/28/2023 6:12 AM CDT [facility] Medicine 3 ([facility]) Progress Note SUBJECTIVE No acute events overnight. This morning, she had episode of hematemesis per nursing staff, unable to visualize. In addition, patient has had worsening abdominal pain with limited oral or tube feeds and no bowel movements for a few days. Abdominal x-ray was obtained which did not show signs of obstruction. I have reviewed the current medication list. OBJECTIVE VITAL SIGNS Temperature: [36.7 ??C-36.9 ??C] 36.9 ??C Heart Rate: [42-53] 53 Resp Rate: [13-39] 18 Blood Pressure: (148-186)/(61-67) 162/67 SpO2: [92 %-96 %] 94 % Flow Rate (L/min): [1 L/min] 1 L/min Pulse Rate: [42-102] 49 PHYSICAL EXAM Alert and oriented. Patient lying in bed on nasal cannula, appears uncomfortable but nontoxic-appearing. Small red lesion on right forehead, patient reports from fall during last hospitalization, improving Tender to palpation right upper quadrant, epigastric region with mild rebound right upper. No guarding. Pericholecystic drain in place draining dark yellow bilious fluid. DIAGNOSTICS I have personally reviewed the laboratory data and imaging since admission, and in/outs for past 72hours. ASSESSMENT / PLAN Ms. Galvan is a 68 y.o. 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 Currently admitted for management of acute cholecystitis status post percutaneous cholecystostomy drain placed 08/22/2023. Her ICU course included left-sided thoracentesis due to volume overload which was noted to be transudative and after her drain placement developed right-sided pleural effusion which was also drained and appeared more consistent with an exudative effusion. Cultures have been negative and she will complete course of antibiotics with meropenem which ends on 08/27/2023. 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 Currently she is on amiodarone to attempt conversion to sinus rhythm. She will require vision exam on discharge as well as a 2 week MOME and Cardiology follow up to monitor her AFib and bradycardia. Repeat echocardiogram revealed resolved pericardial effusion. Her oxygen status remains stable, tolerating 1L NC but unable to wean further. She has evidence of bilateral pleural effusions on bedside echocardiogram and we appreciate the recommendations from Interventional Pulmonology regarding repeat thoracentesis to attempt to wean oxygen completely. She has a complex history of malnutrition with chronic mesenteric ischemia, PEG placement with perforation, and continued nausea, vomiting, abdominal pain. Unfortunately, she had an episode of hematemesis. Will plan for CT abdomen/pelvis, laboratory evaluation, EGD, discontinuation of Eliquis, IV PPI BID and serial hemoglobins. In addition, we appreciate the recommendations from our multidisciplinary nutrition team regarding tube feeding recommendations for improved tolerability versus evaluation of candidacy for parenteral nutrition. Plan for today: Complete IV meropenem today Will initiate additional work up for abdominal pain, hematemesis given complex recent medical history CT abdomen/pelvis, lactate, lipase, amylase, CBC EGD IV PPI twice daily Discontinue Eliquis Avoid NSAIDs Place additional IV for access Serial hemoglobins Appreciate Interventional Pulmonology recommendations regarding subsequent thoracentesis with goal to wean oxygen completely Appreciate Nephrology recommendations Appreciate multidisciplinary nutrition team recommendations regarding tolerability of tube feeds versus initiation of parenteral nutrition Increase amlodipine to 10 mg daily # acute cholecystitis s/p percutaneous cholecystostomy tube (08/22/23) status post 5 day course of IV meropenem (08/23/23 - 08/27/23) plan for tube exchange in 3 months per IR, will need 5 mL drain flushes twice daily #Nausea, vomiting #Abdominal pain #Likely upper gastrointestinal bleed with hematemesis # Mesenteric ischemia with PEG tube # Malnutrition, BMI 15, acute on chronic weight loss Chronic weight loss has been evaluated, thought to be multifactorial secondary to complex comorbidities, ESRD, poor oral intake given chronic mesenteric ischemia, limited ability to tolerate tube feeds. She had episode of hematemesis today with abdominal pain and will workup further. Multidisciplinary Nutrition consult for recommendations regarding tolerability of tube feeds versusevaluation of candidacy for parenteral nutrition Vitamin repletion with multivitamin, zinc sulfate 220 mg, selenium 150 mcg Continue Creon TID with meals Continue thiamine 100 mg daily NPO for EGD CT abdomen/pelvis IV PPI twice daily Discontinue Eliquis Serial hemoglobins # left pleural effusion, s/p Thoracentesis 08/21, likely transudative # acute hypoxemic respiratory failure 2/2 pleural effusions # worsening R pleural effusion on nasal cannula, wean as tolerated oxygen study with RT given inability to completely wean appreciate IP recommendations for subsequent thoracentesis given evidence of bilateral fluid on bedside echocardiogram # AFib Jan Vasc 4, not on anticoagulation # query tachy-bennie, sick sinus, not on beta blockade # pericardial effusion without tamponade physiology # HFpEF ( EF 54%, 2/3 LV diastolic fx) # coronary artery disease status post PCI 2005 # HTN Per HRS, minimal burden Afib in the setting of illness. Not good candidate permanent device given active infection and no indication PPM. If recurrent -> 2 week MoMe and outpatient CV followup. continue amiodarone 400mg TID 10 days, then 200mg daily for 3 months (start 08/29) 2 week MoMe on discharge with Cardiology follow up Ophthalmology/prop maker followup outpatient Discontinue Eliquis in the setting of likely upper GI bleed Continue Lipitor 80 mg daily Amlodipine 10 mg for hypertension # ESRD w donor transplant (2006, 2016), iso GN # PEDRITO # Anion gap metab acidosis daily BMP, Mag, Phos Strict I&Os, daily weights K >4, Mg >2 Avoid nephrotoxic medications Baseline creatinine: 1.2-1.4 nephrology following, appreciate recs Goal tacro 4-6, currently tacrolimus 0.5 mg in the morning and 1 mg in the evening Bumex 2 mg PO BID given low urine output on torsemide 100 mg daily hold Cellcept iso infection cont prednisone 5mg daily # major depression disorder sertraline 25 mg daily Diet: NPO pending EGD Tubes/lines: PIV VTE prophylaxis: SCDs Disposition: Home, Home with Home Health, and Alf Facility with expected discharge date Severe Malnutrition The patient meets the ASPEN Criteria of malnutrition based on: Energy Intake: No Change Interpretation of Weight Loss: No Change Body Fat: Severe Loss Muscle Mass: Severe Loss Fluid Accumulation: Absent Reduced Citrus Picker Strength: Not applicable This is in the context of Chronic Illness. Malnutrition Present Upon Admission: Yes Agree with Registered Dietitian's assessment and treatment plan: Interventions: Enteral nutrition, Vitamin and mineral supplements Plan discussed with [facility] Medicine 3 ([facility]) Talent Acquisition Coordinator, Dr. Cristi Bobo, who was present during desai portions of the evaluation today. Please page the T Medicine 3 ([facility]) service pager at [phone] with any questions. Gabrielle Hernandez M.D. Associated attestation - Rhoda Bobo M.D. - 08/29/2023 2:57 PM CDT I saw and evaluated the patient, participating in the desai portions of the service. I reviewed the resident/fellow???s note. I agree with the resident/fellow???s findings and plan. She had an episode of hematemesis, we held the apixaban, temporarily made her NPO and start IV PPI twice daily. Will monitor her hemoglobin. Discussed with GI bleed they felt that she is high-risk for endoscopy and we should treat conservatively for now and if she has another episode they will planon endoscopy. Appreciate Interventional pulmonology regulatory assistant with thoracentesis. I will plan to repeat thoracentesis on the left side hopefully we can wean the patient off oxygen. Appreciate emptying nutrition team being involved help manage post tube feeding emesis * Adriano Tellez Jaclyn - 08/28/2023 6:01 AM CDT [facility] Medicine 3 ([facility]) PROGRESS NOTE SUBJECTIVE Ms. Galvan was evaluated by pre owned sales consultant, Dr. Cristi Bobo MD, and the Medicine 3 resident team this morning. Overnight, her blood pressures were elevated to SBP max of 178 with wide pulse pressure. She had started on metoclopramide 5 mg and only required a single dose at noon on 08/27/23. States that she thinks it was helpful. She was evaluated by pre owned sales consultant, Dr. Cristi Bobo MD, and the Medicine 3 resident team this morning. During the evaluation, she had an emetic episode which was veronica/yellow color and looked exactly like her tube feeds. Low volume, < 100 cc. States that she felt nausea this morning prior to vomiting. Otherwise, she has no specific concerns. She denies SOB, chest pain, or abdominal pain (only nausea). OBJECTIVE VITAL SIGNS Temperature: [36.5 ??C-36.8 ??C] 36.7 ??C Heart Rate: [42-48] 44 Resp Rate: [13-39] 39 Blood Pressure: (148-178)/(61-66) 178/66 SpO2: [92 %-96 %] 94 % Flow Rate (L/min): [1 L/min] 1 L/min Weight: [41.6 kg] 41.6 kg BMI (Calculated): [15.3 kg/m??] 15.3 kg/m?? Pulse Rate: [40-102] 45 Weight: 41.6 kg (08/27/2023 8:00 AM) Height: 165.1 cm (08/26/2023 2:24 PM) Body mass index is 15.26 kg/m??. PHYSICAL EXAM General: Laying in bed in a hospital gown with a heavier blanket over her. She is alert and oriented to person. She was unable to state where she was currently and oriented to year, month, and day but not date. HEENT: Right forehead small, raised, erythematous lesion measuring approximately 0.25 cm in greatest dimension. Smooth surface with well-defined border. Abdominal: G-tube and percutaneous cholecystostomy tube in place both are secured and well-dressed without serosanguinous drainage. Per tube draining very little (<10 cc) bilious fluid. Tube appears to be clear without obstruction. Abdomen soft and not distended. However, diffusely tender in allfour quadrants and patient reports worse pain with rebound than deep pressure. Skin: Bilateral upper and lower extremities with varying levels of ecchymosis diffusely I/O 08/25 0701 08/26 0700 08/26 0701 08/27 0700 P.O. 260 583 Other 5 5 Enteric (NG/OG) Tube 150 210 Feedings 125 363 Intermittent Medications 50 Total Intake(mL/kg) 590 (14.2) 1161 (27.9) Urine (mL/kg/hr) 200 (0.2) 950 (1) Emesis or Enteric Tube 0 Drains 5 Total Output 205 950 Net +385 +211 Unmeasured Urine Occurrence 4 x 1 x Unmeasured Emesis Occurrence 1 x DIAGNOSTICS I have personally reviewed the laboratory data and imaging since admission, and in/outs for past 72hours. 08/27/23 1358 Home Oxygen Assessment Rest/Awake Room Air SpO2 86 Percent Rest/Awake with Oxygen SpO2 92 (Via 1 L/min) Exercise/Activity with Oxygen SpO2 90 Percent (Via 1 L/min) EXAM: 08/28/23 DX ABDOMEN SUPINE WITH UPRIGHT OR DECUBITUS 2 VIEWS IMPRESSION: No evidence for bowel obstruction. Since June 30, 2023, placement of a pigtail catheter in the right upper quadrant, and placement of a plastic biliary stent. A tube overlying the left abdomen isunchanged. Extensive vascular calcifications. Radiopaque stool in the distal colon, showing moderate sigmoid diverticulosis. ASSESSMENT / PLAN Ms. Galvan is hospitalized on [facility] 3 ([facility]) for evaluation and management of Cholecystitis. Jacqueline Galvan is a 68-year-old female patient that is currently admitted for a acute cholecystitis. 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 2016), CAD s/p PCI in 2005, AAA (5.[address] from 08/19/23), osteoporosis, malnutrition, and chronic mesenteric ischemia. She transferred to the floor on 08/25/23 after an ICU course. Plan for today: - Interventional pulmonology to evaluate for thoracocentesis today - Continue to wean oxygen requirements as she is down to 1L nasal cannula. Oxygen studies yesterdaydemonstrated saturation of 86% on room air and adequate performance on 1L NC. - KUB ordered to assess for bowel obstruction. - Stop tube feeds - Start on metoclopramide 5 mg prn for nausea if no evidence of bowel obstruction # acute cholecystitis s/p percutaneous cholecystostomy tube (08/22/23) # upper GI bleed # abdominal pain with tenderness to palpation, rebound During rounds, she had an emetic episode that looked like tube feeds. Physical exam demonstrates abdominal tenderness with rebound. Non-distended. Afebrile. KUB was ordered and did not show bowel obstruction. Following rounds, nursing notified our team that she had another emetic episode with visible red blood. When evaluated the patient, she has tenderness along the epigastrium and RUQ. Recommend CT abdomen for further characterization of biliary tree and pancreas. Due to the new onset of BRB,recommend EGD and upper GI bleed protocol. Hold eliquis. Plan: - CT abdomen - EGD - Hold apixaban 2.5 mg BID - NPO - plan for tube exchange in 3 months - IR recommends tube flush with 5 mL saline BID - lipase/amylase # left pleural effusion, s/p Thoracentesis 08/21, likely transudative # acute hypoxemic respiratory failure 2/2 pleural effusions # worsening R pleural effusion Effusion cultures no growth to date. Beside POCUS showed pleural fluid (R>L). Oxygen study showed 86% on room air with adequate oxygenation on 1L. Consult placed for interventional pulmonology. Continue on 1L NC and plan to wean to room air if thoracocentesis performed. IP consult may need to occur later in the day today or tomorrow due to the greater urgency for the above problem - Interventional pulmonology to evaluate for thoracocentesis today - on 1L nasal cannula, plan on wean to room air if thoracocentesis performed - currently on bumetanide 2 mg # AFib Jan Vasc 4, not on anticoagulation # query tachy-bennie, sick sinus, not on beta blockade # pericardial effusion without tamponade physiology # HFpEF ( EF 54%, 2/3 LV diastolic fx) # coronary artery disease status post PCI 2005 # HTN Hold apixaban in the context of possible upper GI bleed. Recommend restarting on home amlodipine atreduced dose of 5 mg BID. - continue amiodarone 400mg TID 10 days, then on 08/30/23, start on 200mg daily for 3 months - 2 week MoMe on discharge with Cardiology follow up - Ophthalmology/prop maker followup outpatient - Hold apixaban 2.5mg BID - Continue home Lipitor 80 mg daily # ESRD w donor transplant (2006, 2016), iso GN # PEDRITO # Anion gap metab acidosis Nephrology following closely. Continue on bumetanide 2 mg - daily BMP, Mag, Phos - Strict I&Os, daily weights - K >4, Mg >2 - Avoid nephrotoxic medications - Baseline creatinine: 1.2-1.4 - continue to trend cystatin c. - nephrology following, appreciate recs - continue on tacrolimus 0.5 mg qAM and 1.0 mg qPM. Go tacro level 4-6. - change torsemide to bumetanide 2 mg - hold Cellcept iso infection - cont prednisone 5mg daily # Mesenteric ischemia w G tube # malnutrition, BMI 18, chronic wt loss # Acute cholecystitis s/p ritika tube (08/22/23) Started on metoclopramide 5 mg. Noted mild improvement > ondansetron. Metoclopramide held due toconcern for SBO. KUB negative for SBO and metoclopramide restarted. - age appropriate cancer screening outpatient: mammogram 2017 WNL. Colonoscopy 2014 2 tubular adenoma polyps. Hx smoking but prior CT not capture lung malignancy. Pleural studies: negative lymphoma/leukemia. Wt loss multifactorial 2/2 co-morbidities, ESRD, poor PO, mesenteric ischemia s/p G tube - nutrition consulted, appreciate recs - Protonix 40mg daily - continue tube feeding - continue Creon q.4 hours - continue thiamine 100 mg daily - continue Dialyvite - continue zinc sulfate capsule 220 mg - continue selenium tablet 150 mcg - continue metoclopramide from 5 mg prn # major depression disorder - sertraline 25 mg daily Diet: On tube feeds Tubes/lines: PIV VTE prophylaxis: SCD's, will confirm refusal off anticoagulation with patient. Disposition: Home, Home with Home Health, and Alf Facility with expected discharge date Severe Malnutrition The patient meets the ASPEN Criteria of malnutrition based on: Energy Intake: No Change Interpretation of Weight Loss: No Change Body Fat: Severe Loss Muscle Mass: Severe Loss Fluid Accumulation: Absent Reduced Citrus Picker Strength: Not applicable This is in the context of Chronic Illness. Malnutrition Present Upon Admission: Yes Agree with Registered Dietitian's assessment and treatment plan: Interventions: Enteral nutrition, Vitamin and mineral supplements Plan discussed with [facility] Medicine 3 ([facility]) Talent Acquisition Coordinator, Dr. Cristi Bobo MD, who was present during desai portions of the evaluation today. Please page the [facility] Medicine 3 ([facility]) service pager at [phone] with any questions. * Rose Quinn M.A., O.T., [facility] - 08/27/2023 3:02 PM CDT Occupational Therapy [facility] Inpatient Treatment SUBJECTIVE Patient's Name: Jacqueline Galvan Referring/Attending Provider: Rhoda Bobo M.D. Reason for Referral: Occupational Therapy Evaluation and Treatment History of Present Illness: Jacqueline Galvan is a 68 y.o. female who was admitted to [facility] in [place] on 08/20/2023 for Cholecystitis [K81.9]. Precautions Other Precautions: respiratory (1 NC), R biliary tube, PEG tube, cognition/delirium, fall Pain Assessment: Pain not reported during session. Patient foods more limited by consistent nausea Subjective Comments: Agreeable to therapy session activities and goals that could be addressed in bed due to nausea.. Team Communication: The patient's status was discussed and coordination of care occurred with RN OBJECTIVE Vital Signs: Vitals not formally assessed during session. No concerns during chart review and the patient had nosigns or symptoms consistent with vital changes during therapy session. Outcome Measures: AM-PAC Inpatient Short Form: Putting on and taking off regular lower body clothing?: A Little Putting on and taking off regular upper body clothing?: A Little Taking care of personal grooming such as brushing teeth?: None Bathing (including washing, rinsing, drying)?: A Little Toileting, which includes using toilet, bedpan, or urinal?: A Little Eating meals?: None Daily Activities Raw Score (max 24): 20 Daily Activities Standardized Score: 42.03 Interpretation: Based on scoring guidelines using the raw score value: Those going to home had an average score at or above 18 Those going to facility had an average score at or below 17 Clinicians answer the [facility] Inpatient Short Form based on observed patient activity and/or clinical judgement (ie. patient can be scored without physically performing each activity) O Log: The Orientation Log is a quick, quantitative measure of orientation status to place, time, and circumstance. The O-Log can be used for serial assessment of orientation to document changes overtime. A score of 25 or higher is associated with normal orientation, however does not evaluate executive function. Score Breakdown: City: 07/[address]: 07/06 Name of Hospital: 07/06 Month: 07/06 Date: 07/06 Year: 07/06 Day of the Week: 07/06 Clock Time: 07/06 Etiology/Event: 07/06 Pathology Deficits: 07/06 Total Score: 30/30 Cognition: Will continue to monitor cognition. Therapeutic Interventions: RELAXATION/COPING: Education on hospital resources: - Identification and prioritization of patient's stressors (nausea presently). - Relaxation channel and music channels - Library Resources (books, puzzle books and jigsaw puzzles) Education/Training Provided: Provided education on role of occupational therapy in the acute setting. Collaborated with patient and/or family on goals and plan of care. Home Safety/Fall Prevention: - Educated patient/caregiver regarding home safety and fall prevention strategies to promote safetyand independence including use of recommended assistive device, wearing non-slip footwear, ensuringclear pathways, removing throw rugs, and good lighting throughout the home. Activity Recommendations During Hospitalization: Patient educated on importance of activity and mobility to improve pulmonary function/hygiene, activity tolerance, strength, and overall well-being while in the hospital setting. - Eat ALL meals in chair - Active engagement in daily self-care routine (oral cares, face washing, etc.) - Active engagement in leisure tasks as appropriate/safe (reading, music, games/cards, etc.){ - Maintain typical day/night routine and incorporate sleep hygiene strategies - Ambulate/transfer into chair 3-5x/day Activity Modification: - Patient was educated on activity modification and how to apply those techniques to activities of daily living. Energy Conservation: - Patient was educated on energy conservation and how to apply those techniques to activities of daily living. Instructed in energy conservation using the 4 P's. These include: Plan, Prioritize, Position, Pace. -Planning is deciding in advance what to do, when and how to do a task, and who will be completing the task. -Prioritizing is determining which activities are required or desired in comparison to others for dealing with a series of tasks according to their relative importance. -Position is focused on the location of one's body located in an environment. Sit for activities asmuch as possible, avoid bending/overhead reaching, use good posture and slow/smooth movements, avoid fast or rushed movements. Slide objects instead of lifting, use wheeled carts to carry heavier loads, place commonly used items with an easy to reach. -Pacing is the rate of movement, progress, performance, or delivery. Allow enough time for the activity to avoid rushing and incorporate rest breaks, modify or eliminate tasks that require straining,distribute light and more strenuous tasks throughout the day and the week, incorporate routine restbreaks to avoid maximal exertion Relaxation/Coping: - Patient educated on the importance of daily participation in meaningful activities and occupational roles, and how sudden change, illness, stress and mood can impact participation. Provided patientwith therapeutic listening, positive feedback, and encouragement. Instructions on hospital resources including: Library resources, [employer] resources, relaxation and music channel. - Patient educated on resources to assist with nausea including: aromatherapy. OT provided patient with a cotton ball inside a small baggie with 3-4 spearmint essential oil drops and a baggy with 3-4ginger essential oil drops, along with [place] education literature about each oil and its possible effects on decreasing nausea. Handouts provided: Techniques to Help You Save Energy [id number] Aromatherapy handouts: Spearmint [employer] Mitzi Patient was left in bed at end of session with call light in reach, all needs met and questions answered. Assessment Discharge Therapy Needs - OT: Ongoing skilled occupational therapy (Pending hospital progress) Skilled therapy can include occupational therapy provided in home health, outpatient or post-acute facility. The location of these services is determined by patient's care team in partnership with patient/family. Barriers to Discharge Home: Current functional status, Fall risk, Safety concerns Recommended Adaptive Equipment - OT: (Pending hospital progress) Level of Care Needed - OT: Assistance with toilet/shower transfers, Assistance with medication set up/administration, Assistance with showering/bathing, Assistance with meal preparation, Assistance with junior financial analyst, Assistance with transportation, Assistance with housekeeping, Assistance with shopping, Assistance with dressing, Assistance with toileting, Physical assistance needed, Cognitive assistance needed Clinical Impression: Patient is slowly progressing towards therapy goals; however, patient was very limited due to nausea this date. Patient continues to require contact guard assist with front wheel walker and gait belt for safety.Increased need with ADLs, with consistent nausea and fatigue this session. Educated patient on the importance of functional mobility to continue increasing her activity tolerance for ADLs. Educated patient on home safety and fall prevention, with additional focus on energy conservation strategies to assist in fatigue management. Patient educated on non-pharmacological resources to assist with nausea including: aromatherapy. OTprovided patient with a cotton ball inside a small baggie with 3-4 spearmint essential oil drops and a baggy with 3-4 mitzi essential oil drops, along with [place] education literature about each oil and its possible effects on decreasing nausea. Focus will be on continuing to progress functional mobility at next session for participation in bathroom ADLs. Continued skilled occupational therapy is medically necessary in the acute hospital setting in order to optimize the patient's functional independence and safety with personal care tasks, increase activity tolerance and progress functional mobility. Plan OT Plan Comments: Next session: standing grooming, toileting, CAM, olog ( on 08/27/23) Functional Goals: OT Goal #1: Patient will complete toileting (transfer, ebony cares, clothing management) with modified independence to return to prior level of functioning. OT Goal #1 Status: Progressing OT Goal #2: Patient will complete standing activities of daily living/simple instrumental activities of daily living > 5 minutes with modified independence to return to previous level of functioning. OT Goal #2 Status: Slowly progressing OT Goal #3: Patient will complete full body dressing including clothing retrieval with modified independence to return to prior level of functioning. OT Goal #3 Status: Progressing OT Goal #4: Patient will verbalize understanding of energy conservation techniques, fall preventionstrategies, and DME recommendations to ensure independence and safety at dismissal. OT Goal #4 Status: Ongoing Progress: Progressing toward goals Rehab potential: Ms. Galvan has potential to achieve established occupational therapy goals within the time frame outlined below. OT Frequency: OT Amount: 1 visit per day OT Frequency: 5 times per week OT Inpatient Duration : Until goals are met or hospital discharge Requires Inpatient OT Follow-Up: Yes OT - Next Inpatient Appointment: 08/28/23 Plan: Continue with current plan Treatment interventions may include: Treatment Interventions: Therapeutic exercise, Therapeutic functional activity, Self-care/home management, Cognitive skills training Occupational Therapy Attestation Statement: Patient unable to verbalize agreement to the plan of care and goals due to mental status or level of consciousness, but family members present to consult and agree with the plan as stated above. Billing: Time Spent with Patient Therapeutic Interventions Home Management Training (min): 20 min Time Tracking Total Timed Units (min): 20 min Total Treatment Time (min): 20 min Rose Quinn M.A., O.T., BCP * Birgit Sheffield, P.T.A. - 08/27/2023 2:56 PM CDT Physical Therapy Inpatient Treatment SUBJECTIVE Patient's Name: Jacqueline Galvan Referring/Attending Provider: Rhoda Bobo M.D. Reason for Referral: Physical Therapy Evaluate and Treat History of Present Illness: Jacqueline Galvan is a 68 y.o. female who was admitted to [facility] in [place] on 08/20/2023 for Cholecystitis [K81.9] Precautions Other Precautions: respiratory 4.5 NC), R biliary tube, PEG tube, cognition/delirium, fall Pain Assessment: No pain but nausea Patient/Caregiver Goals: Return to home Subjective Comments: Patient agreed to session. OBJECTIVE Vital Signs Vitals taken pre, during, and post mobility (nursing notified of patient response to activity). Outcome Measures: AM-PAC Inpatient Short Form: AM-PAC Basic Mobility (V.2) How much help from another person do you currently need???If the patient hasn't done an activity recently, how much help from another person do you think he/she would needif he/she tried? 1. Turning from your back to your side while in a flat bed without using bedrails?: A Little 2. Moving from lying on your back to sitting on the side of a flat bed without using bedrails?: A Little 3. Moving to and from a bed to a chair (including a wheelchair)?: A Little 4. Standing up from a chair using your arms (e.g., wheelchair, or bedside chair)?: A Little 5. To walk in hospital room?: A Little 6. Climbing 3-5 steps with a railing?: Total -[facility] Basic Mobility (V.2) Raw Score: 16 -[facility] Basic Mobility (V.2) Standardized Score: 38.32 Interpretation: Based on scoring guidelines using the raw score value: Those going to home had an average score at or above 18 Those going to facility had an average score at or below 17 Clinicians answer the -[facility] Inpatient Short Form based on observed patient activity and/or clinical judgement (ie. patient can be scored without physically performing each activity) Therapeutic Interventions: SUPINE TO SIT: Assistance Level: Supervision of 1 Device: head of bed elevated and bedrail Assistance/Cueing: verbal for Upper extremity reaching Delivery: instructed, assessed, and facilitated SIT TO SUPINE: Assistance Level: Supervision of 1 Device: head of bed elevated and bedrail Assistance/Cueing: no cueing required for Delivery: assessed and facilitated SIT TO STAND: Assistance Level: Contact Guard Assistance of 1 Device: gait belt and front wheeled walker Surface: Bed Assistance/Cueing: verbal and tactile for Upper extremity placement Delivery: instructed, assessed, and facilitated STAND TO SIT: Assistance Level: Contact Guard Assistance of 1 Device: gait belt and front wheeled walker Surface: Chair Assistance/Cueing: tactile for Upper extremity placement and Walker placement Delivery: assessed and facilitated GAIT: Distance: 9.1 meters Assistance Level:Contact Guard Assistance of 1, +1 for safety Device: gait belt, front wheeled walker, and with assistance for lines and/or chair follow Quality: decreased base of support, decreased gait speed, decreased heel strike, decreased toe off,forward flexed posture, guarded, shuffling, unsteady, step through Assistance/Cueing:tactile for Placement of gait aid Delivery: assessed and facilitated Comments: Patient appears moderately weak and frail. Only able to mobilize short distances while on1 Liter of O2. RT present. Education : Education provided this session: Sit up in chair through out the day. Mobilize to the restroom. The patient's status was discussed and the following coordination of care occurred with the RN, Family/Caregiver, and RT Patient was left in bed with bed alarm on at end of session with call light in reach, all needs metand questions answered. Assessment Discharge Therapy Needs - PT: Ongoing skilled physical therapy Skilled therapy can include physical therapy provided by home health, outpatient clinic, or a post-acute facility. The location of these services is determined by the patient's care team in partnership with patient/family. Level of Care Needed - PT: Assistance with bed mobility, Assistance with transfers (Comment), Assistance with walking and moving around the home, Assistance with stairs, Physical assistance needed, Cognitive assistance needed Equipment Recommended - PT: Front-wheeled walker Patient [...] will be updated as appropriate. Clinical Impression: Jacqueline has been limited in participating lately as she has been feeling quite nauseous. Today, shewas able to participate in a short session ambulating to the door and back to bed. RT was present to complete her oxygen assessed needs with/without activity. Jacqueline ambulated a total of 30 feet with 1 L of oxygen using her walker as DATA ENTRY ASSOCIATE provided contact guard assistance while DATA ENTRY ASSOCIATE managed IV pole.We discussed the importance of mobilizing in room such as ambulating to the restroom instead pivoting onto the commode bedside. Patient remains below their baseline level of function. Patient presents with deficits in mobility, transfers, ambulation, balance and safety. Therefore, continued skilledPT remains medically necessary in the acute care setting in order to restore and maximize function,participate in interdisciplinary discharge planning, and provide skilled education and training to return to patient's prior level of participation in daily roles. Rehab potential: Ms. Galvan has Good potential to achieve established physical therapy goals within the time frame outlined below. Plan PT Plan Comments: Continue to progress functional mobility and lower extremity exercises appropriate. Continue to work on rolling/supine<> sit transfers/sit<> stand transfers and progressambulation initiating use of front wheeled walker increasing distance and frequency as tolerated with chair follow. Recommended activity goals: Delirium prevention/intervention measures, chair 3x/dayusing front wheeled walker/gait belt assist x1, progress [...] Progressing PT Goal #3: Patient will be independent/modified independent utilizing most appropriate gait deviceambulating a distance of 60 m to progress towards functional independence. PT Goal #3 Status: Slowly progressing Treatment Plan: Plan: Continue with current plan PT Amount: 1 visit per day PT Frequency: 5 times per week PT Inpatient Duration : Until goals are met or hospital discharge Requires Inpatient Follow-Up: Yes PT - Next Inpatient Appointment: 08/26/23 Patient unable to verbalize agreement to the plan of care and goals due to mental status or level of consciousness, but family members present to consult and agree with the plan as stated above. Treatment interventions may include: Treatment/Interventions: Therapeutic exercise, Therapeutic functional activity, Gait training, Self-care/home management, Neuromuscular re-education DATA ENTRY ASSOCIATE Visit Trackin Billing: Time Spent with Patient Therapeutic Interventions Gait Training (min): 13 min Therapeutic Activity (min): 8 min Time Tracking Total Timed Units (min): 21 min Total Treatment Time (min): 21 min Marco CarterTBraxton Associated attestation - Shai Gaston P.T., D.P.T. - 08/27/2023 3:17 PM CDT Discussed patient's plan of care with DATA ENTRY ASSOCIATE and plan of care has been updated. PT Amount: 1 visit per day PT Frequency: 5 times per week (Goals can be met at 5x/week. Out of ICU) Shai Gaston P.T., Saurabh.P.T. * Sukhjinder Saldana R.R.T., John. - 08/27/2023 1:59 PM CDT 08/27/23 1358 Home Oxygen Assessment Rest/Awake Room Air SpO2 86 Percent Rest/Awake with Oxygen SpO2 92 (Via 1 L/min) Exercise/Activity with Oxygen SpO2 90 Percent (Via 1 L/min) Home oxygen assessment completed. * Lynette Saenz M.S., RDN, LD - 08/27/2023 12:10 PM CDT DESCRIPTION Tube Feeding ASSESSMENT Patient admitted for Cholecystitis. Patient was unable to tolerate bolus tube feeds of 125 mL. She had nausea and emesis overnight. Tube feed rate decreased back to continuous feeds starting at 20 ml/hr and advance to goal of 35 ml/hr as tolerated. Percentage of Meals Eaten for the past 72 hrs: Percent Meals Eaten (%) 08/27/23 1205 0 08/27/23 1007 0 08/26/23 1700 25 08/26/23 1000 Other (Comment) 08/25/23 1910 0 08/25/23 0900 25 GI Tubes (Adults) Percutaneous endoscopic;Gastrostomy 14 Fr Left;Lower;Quadrant (abdomen) (Active) Placement Date/Time: 08/21/23 1439 GI Tube Type: Percutaneous endoscopic;Gastrostomy Low Profile? :No Balloon, Bumper, or Other?: Balloon Balloon Volume: 5 mL GI Tube Size: 14 Fr Length (cm): 3.5 cmTube Location: Left;Lower;Quadrant (abdomen... Latest Reference Range & Units 08/24/23 04:13 08/24/23 04:14 Ascorbic Acid, P 0.4 - 2.0 mg/dL 0.6 Vitamin A 32.5 - 78.0 mcg/dL 32.2 (L) Copper, S 77 - 206 mcg/dL 121 Selenium, S 110 - 165 mcg/L 82 (L) Zinc, S 60 - 106 mcg/dL 44 (L) (L): Data is abnormally low Weight since admission: Height: 165.1 cm Admission Weight: 44.1 kg (08/20/2023) Current Weight: 41.6 kg [place] Body Weight (Calculated) : 56.9 kg BMI (Calculated): 15.3 kg/m?? Weight change since admission: -2.5 kg Net IO Since Admission: -1,853.19 mL [08/27/23 1210] ASPEN Criteria Malnutrition Status: Severe Malnutrition PLAN Peptamen 1.5 at 20 mL/hr and advance by 10 mL/hr every 12 hrs to goal rate of 35 mL/hour for 24 hours/day. Water flushes: 30 mL Q6H for tube patency; additional flushes per service Enteral nutrition as recommended will provide 1260 total calories and 57 grams of protein and less than 100% of the Reference Daily Intake of vitamins and minerals per day. Recommend 1 tablet of Creon (36,000 units lipase) Q4H for continuous tube feeds. Continue Zinc sulfate 220 mg daily, Selenium 150 mcg daily, and Therapeutic -M daily. Due to renal function concerns, okay with Dialyvite instead of Therapeutic-M if necessary. If emesis and nausea continues with trial of antiemetics, consider advancing tube tip into jejunum (TGJ or PEJ). For questions about patient's nutritional care please contact pager [phone] on weekdays or [phone] on weekends/holidays. 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 Meds Renally adjusted: meropenem, VTE Prophylaxis: apixaban ASSESSMENT / PLAN ID/GI - acute cholecystitis s/p percutaneous cholecystostomy drain placement on 08/21. Transfer fromICU on 08/24. Continuing on meropenem 500 mg IV q12h for 5 day course (through 08/26) Hx renal txplht - continues on prednisone 5 mg daily, tacrolimus (decreased dose from home dose 2 mg AM and 2.4 mg PM in light of supratherapeutic level of 16.4 on 08/22. ). Dose adjustments per nephrology service. Note drug interaction with amiodarone that can likely increase tacrolimus levels. Most recent tacrolimus level 2.4 from 08/27. Concern for malabsorption with frequent vomiting. Tacrolimus changed to 0.6 mg granules via PEG tube BID. Holding mycophenolate in setting of infection. CV Afib - started on amiodarone currently at 400 mg TID but decreasing to 200 mg daily on 08/29. Plan to continue for 3 months. Started on reduced dose apixaban 2.5 mg BID (technically doesn't meet criteria with only reduction factor being weight but SCr is near cutoff so reasonable to continue with reduced dose. Volume overload - s/p L-sided thoracentesis (transudative). Undergoing diuresis. Now transitioned to bumetanide 2 mg PO BID. Nutrition - client delivery manager rec'd therapeutic M 1 tab BID. Currently receiving dialyvite daily, zinc sulfate 220 mg daily, selenium 150 mcg daily. Consider transitioning to therapeutic M as detailed by nutrition service as current regimen does not supplement Vitamin A. Monitor Mag,phos if making this change however in light of patient's renal dysfunction. each Therapeutic M tablet has ~32 mg of phos (slightly less than 1 mmol of Phos) and 100 mg of magnesium. Gorge Kelly Pharm.D., R.Ph., BCPS * Shubham Callahan M.D. - 08/27/2023 8:22 AM CDT NEPHROLOGY CONSULT SERVICE - PROGRESS NOTE Hospital Day 7 SUBJECTIVE Mrs. Jacqueline Galvan is a 68 y.o. cisfemale w/ extensively complex course requiring multiple recent inpatient stays, currently admitted for acute cholecystitis s/p perc cholecystostomy drain 08/21. Nephrology team consulted for ongoing PEDRITO/diuretic and immunosuppression management. 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 PEDRITO has been improving since 08/22 and tacrolimus trough has been downtrending. Most recent tacrolimus trough 08/23 was 4.9 with new levels drawn this AM pending. Requirements have continued to stabilize/downtrend and currently at 1 L nasal cannula. Yesterday, she was deescalated from prior IV diuretics including 100 mg of IV furosemide to p.o. equivalent of torsemide 100 mg. Unfortunately over the past 24 hours only produced 205 cc of urine remaining net positive 385 cc. Despite that no worsening of her current respiratory status and weight appears stable this a.m. (though bed weight which significantly limits assessment). Vitals have otherwise remained stable with systolic BP's in the 160s and remaining bradycardic without dips below 40 beats per minute. This a.m. patient again reports feeling well however ongoing malaise and just general sensation of fatigue. Of note, I have previously taken care of Jacqueline rodriguez during 1 of her prior admissions. She was able to identify myself and appears alert and oriented and overall as interactive as in my prior assessments. OBJECTIVE Admission weight: 44.1 kg Weights for the past 120 hrs (Last 3 readings): Weight 08/27/23 0800 41.6 kg 08/26/23 1424 41.6 kg 08/24/23 0400 43.3 kg I/O 08/24 0000 08/24 2359 08/25 0000 08/25 2359 08/26 0000 08/26 2359 P.O. 240 260 150 Other 5 Enteric (NG/OG) Tube 120 210 120 Feedings 584 564 125 Intermittent Medications 100 50 Total Intake(mL/kg) 1044 (24.1) 1089 (26.2) 395 (9.5) Urine (mL/kg/hr) 1680 (1.6) 550 (0.6) 0 (0) Emesis or Enteric Tube 0 Drains 15 5 0 Stool 0 0 Total Output 1695 [phone] Unmeasured Urine Occurrence 2 x 2 x Unmeasured Stool Occurrence 7 x 1 x Unmeasured Emesis Occurrence 1 x VITAL SIGNS Temperature: [36.5 ??C-37 ??C] 36.5 ??C Heart Rate: [40-47] 45 Resp Rate: [14-30] 21 Blood Pressure: (152-174)/(54-77) 174/63 SpO2: [89 %-95 %] 95 % Flow Rate (L/min): [1 L/min] 1 L/min Pulse Rate: [40-93] 40 PHYSICAL EXAMINATION General appearance: Alert, chronically ill-appearing female, cachectic, lying in bed, no acute distress Lungs: Normal work of breathing on 1 L nasal cannula, slightly decreased breath sounds at bilateralbases. No crackles or wheezes appreciated Heart: Bradycardic, regular rhythm, no murmurs, rubs, or gallops appreciated Abdomen: Soft, scaphoid, biliary drain in place draining bilious fluid. Nontender. 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 Jacqueline Galvan is a 68 y.o. cisfemale w/ extensively complex course requiring multiple recent inpatient stays, currently admitted for acute cholecystitis s/p perc cholecystostomy drain 08/21. Nephrology team consulted for ongoing PEDRITO/diuretic and immunosuppression management. 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 Overall, suspect her PEDRITO was likely in the setting of sepsis, prerenal azotemia, and tacrolimus toxicity. Her tacrolimus level has improved to 4.9 as of 08/24 with change in her tacrolimus trough goalto 4-6 given s/p 7y post allotransplant. Tacrolimus regimen adjusted to 0.5 mg -0 - 1mg. eGFR appears to be around baseline as compared to recent assessments both by creatinine and cystatin C. Recommend titration of cystatin C moving forward. Recommendations: - Immunosuppression: Continue tacrolimus 0.5 mg in the AM and 1 mg in the PM Goal tacrolimus trough 4-6 given several years out from transplant Recheck trough 08/26, pending to determine ongoing dosage adjustments Continue prednisone 5 mg daily Continue to hold Cellcept given active infection - Diuretic plan Unfortunately, noted significant decline in diuresis w/ resuming home torsemide on 08/25 Please switch diuretic to bumetanide 2mg PO BID. While this represents a decrease in her diuretic dose, there are concerns of inappropriate absorption 2/2 mesenteric ischemia given marked decrease inUOP with change to torsemide. Would target net even fluid status given prior escalation needs due to tenuous respiratory status. If no significant diuresis observed with above dosing, will consider escalation to 4mg BID (80mg IVfurosemide equivalent Close monitoring of respiratory O2 needs - Please continue to replete lytes as appropriate - Please obtain daily Mg, phosphorus, BMP, cystatin C - Nephrology will continue to follow This case was discussed with [facility] pre owned sales consultant, Dr. Mariano. [place] [phone] with questions. Shubham Castillo M.D. Associated attestation - Daysi Mariano M.D. - 08/27/2023 12:09 PM CDT I saw and evaluated the patient, participating in the desai portions of the service. I reviewed Shubham Lorenzana M.D.'s note. I agree with the resident???s findings and plan. Additional comments: Patient with stable renal function, but UOP low though unclear if being recorded accurately. However, she remains hypertensive with ongoing O2 requirement, so will recommend adjusting diuretics as per below. Tacrolimus trough today at goal, so no further adjustments needed. Will continue to monitor. Daysi Mariano M.D. Geophysics Professor Talent Acquisition Coordinator Nephrology and Hypertension * Gabrielle Hernandez M.D. - 08/27/2023 6:58 AM CDT [facility] ([facility]) Progress Note SUBJECTIVE Reports nausea, emesis overnight. In addition, had abdominal bloating, discomfort with tube feed yesterday, 125 mL at 35 mL/hr. Ate 25% of one meal yesterday. Oxygen weaned to 1L overnight but unableto be fully weaned during the day. I have reviewed the current medication list. OBJECTIVE VITAL SIGNS Temperature: [36.4 ??C-37 ??C] 36.6 ??C Heart Rate: [40-71] 45 Resp Rate: [14-30] 19 Blood Pressure: (152-171)/(54-77) 164/63 SpO2: [83 %-95 %] 91 % Flow Rate (L/min): [1 L/min-2 L/min] 1 L/min Height: [165.1 cm] 165.1 cm Weight: [41.6 kg] 41.6 kg BSA (Calculated - sq m): [1.38 sq meters] 1.38 sq meters BMI (Calculated): [15.3 kg/m??] 15.3 kg/m?? Pulse Rate: [40-93] 45 PHYSICAL EXAM Alert and oriented. Patient lying comfortably in bed on nasal cannula. Nontoxic-appearing. Small red lesion on right forehead, patient reports from fall during last hospitalization, improving Minimal tenderness to palpation RUQ, negative Isaac's sign. Pericholecystic drain in place draining dark yellow bilious fluid. DIAGNOSTICS I have personally reviewed the laboratory data and imaging since admission, and in/outs for past 72hours. ASSESSMENT / PLAN Ms. Galvan is a 68 y.o. 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 Currently admitted for management of acute cholecystitis s/p percutaneous cholecystostomy drain placed 08/22/2023. Per report, the patient's ICU course included left-sided thoracentesis due to volume overload whichwas noted to be transudative and after her drain placement develop right-sided pleural effusion which was also drained and appear more consistent with an exudative effusion particularly in the setting of recent drain placement. Cultures have been negative so far and so patient will complete course of antibiotics with meropenem which ends on 08/27/2023. 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 Currently she is on amiodarone to attempt conversion tosinus rhythm. She will require vision exam on discharge as well as a 2 week MOME and Cardiology follow up to monitor her AFib and bradycardia. Will plan for an echo next week to evaluate for resolving pericardial effusion. Overall the patient appears clinically improved compared to when she was sent to the ICU. Attemptedto wean oxygen but patient was not able to tolerate. Will plan for oxygen study for documentation needed for home going oxygen. In addition, will perform bedside ultrasound to evaluate if there is any re-accumulation of pleural fluid. Plan for today: Continue meropenem 500 mg BID until 08/27/2023, last day today Continue amiodarone load Plan for TTE to evaluate for pericardial effusion today Home oxygen study with RT Transition torsemide 100 mg daily to bumetanide 2 mg twice daily given concern for malabsorption Tacrolimus goal 4-6, increase dose to 0.5 mg in the morning and 1 mg in the evening Discuss nutrition plan given difficulty with tube feeds and decreased appetite. Would favor supplemental feeds after oral intake for caloric goals Re-start amlodipine 5 mg (takes 10 mg at home) and monitor blood pressure # acute cholecystitis s/p percutaneous cholecystostomy tube (08/22/23) - continue meropenem to complete a 5 day course (08/23/23 - 08/27/23) - plan for tube exchange in 3 months - per IR, will need 5 mL drain flushes twice daily # left pleural effusion, s/p Thoracentesis 08/21, likely transudative # acute hypoxemic respiratory failure 2/2 pleural effusions # worsening R pleural effusion - on nasal cannula, wean as tolerated - oxygen study with RT given inability to completely wean # AFib Jan Vasc 4, not on anticoagulation # query tachy-bennie, sick sinus, not on beta blockade # pericardial effusion without tamponade physiology # HFpEF ( EF 54%, 2/3 LV diastolic fx) # coronary artery disease status post PCI 2005 # HTN Per HRS, minimal burden Afib in the setting of illness. Not good candidate permanent device given active infection and no indication PPM. If recurrent -> 2 week MoMe and outpatient CV followup. - continue amiodarone 400mg TID 10 days, then 200mg daily for 3 months (start 08/29) - 2 week MoMe on discharge with Cardiology follow up - Ophthalmology/prop maker followup outpatient - Eliquis 2.5 mg BID for CHADSVASC 4, discontinue aspirin - Continue Lipitor 80 mg daily - plan for TTE for pericardial effusion - initiate amlodipine 5 mg daily for hypertension (home dose 10 mg daily), can uptitrate as needed # ESRD w donor transplant (2006, 2016), iso GN # PEDRITO # Anion gap metab acidosis - daily BMP, Mag, Phos - Strict I&Os, daily weights - K >4, Mg >2 - Avoid nephrotoxic medications - Baseline creatinine: 1.2-1.4 - nephrology following, appreciate recs - Goal tacro 4-6, given low value will increase to 0.5 mg in the morning and 1 mg in the evening - Bumex 2 mg PO BID given low urine output on torsemide 100 mg daily - hold Cellcept iso infection - cont prednisone 5mg daily # Mesenteric ischemia w G tube # malnutrition, BMI 18, chronic wt loss # Acute cholecystitis s/p ritika tube (08/22/23) - age appropriate cancer screening outpatient: mammogram 2017 wnl. Colonoscopy 2015 2 tubular adenoma polyps. Hx smoking but prior CT not capture lung malignancy. Pleural studies: negative lymphoma/leukemia. Wt loss multifactorial 2/2 co-morbidities, ESRD, poor PO, mesenteric ischemia s/p G tube - nutrition consulted, appreciate recs, would favor supplemental tube feeds after oral intake for adequate caloric intake - vitamin repletion with MVN, zinc sulfate 220 mg, selenium 150 mcg per nutrition - Protonix 40mg daily - continue Creon TID with meals - continue thiamine 100 mg daily # major depression disorder - sertraline 25 mg daily Diet: On tube feeds , PO as tolerated Tubes/lines: PIV VTE prophylaxis: eliquis Disposition: Home, Home with Home Health, and Alf Facility with expected discharge date Severe Malnutrition The patient meets the ASPEN Criteria of malnutrition based on: Energy Intake: No Change Interpretation of Weight Loss: No Change Body Fat: Severe Loss Muscle Mass: Severe Loss Fluid Accumulation: Absent Reduced Citrus Picker Strength: Not applicable This is in the context of Chronic Illness. Malnutrition Present Upon Admission: Yes Agree with Registered Dietitian's assessment and treatment plan: Interventions: Enteral nutrition, Vitamin and mineral supplements Plan discussed with [facility] Medicine 3 ([facility]) Talent Acquisition Coordinator, Dr. Cristi Bobo, who was present during desai portions of the evaluation today. Please page the [facility] Medicine 3 ([facility]) service pager at [phone] with any questions. Gabirelle Hernandez M.D. Associated attestation - Rhoda Bobo M.D. - 08/28/2023 9:53 AM CDT I saw and evaluated the patient, participating in the desai portions of the service. I reviewed the resident/fellow???s note. I agree with the resident/fellow???s findings and plan. Bilateral pleural effusions present on point of care ultrasound with compressive atelectasis, thereseems to be a larger effusion on the right side but the left side was obscured by the heart. Will ask IP to see the patient to see if she is amenable for thoracentesis, we may be able to successfully wean her off of oxygen if we can subpleural fluid. * Adriano Tellez - 08/27/2023 5:39 AM CDT [facility] Medicine 3 ([facility]) PROGRESS NOTE SUBJECTIVE Ms. Galvan was evaluated by pre owned sales consultant, Dr. Cristi Bobo MD, and the Medicine 3 resident team this morning. Overnight, her blood pressures were elevated to SBP max of 171 with wide pulse pressure. Additionally, she had two episodes of emesis and nausea did not improve after ondansetron 4 mg po. Declined dose of ondansetron in the morning. She was evaluated by pre owned sales consultant, Dr. Cristi Bobo MD, and the Medicine 3 resident team this morning. She reports that her nausea had improved since last night. Overall, she feels as if she is improving but expresses disappointment that she is doing so poorly because she had been feeling so well after her prior hospitalization. OBJECTIVE VITAL SIGNS Temperature: [36.4 ??C-37 ??C] 36.6 ??C Heart Rate: [40-71] 45 Resp Rate: [14-30] 30 Blood Pressure: (152-171)/(54-77) 164/63 SpO2: [83 %-95 %] 94 % Flow Rate (L/min): [1 L/min-2 L/min] 1 L/min Height: [165.1 cm] 165.1 cm Weight: [41.6 kg] 41.6 kg BSA (Calculated - sq m): [1.38 sq meters] 1.38 sq meters BMI (Calculated): [15.3 kg/m??] 15.3 kg/m?? Pulse Rate: [40-93] 44 Weight: 41.6 kg (08/26/2023 2:24 PM) Height: 165.1 cm (08/26/2023 2:24 PM) Body mass index is 15.26 kg/m??. PHYSICAL EXAM General: Laying in bed in a hospital gown with a heavier blanket over her. She is alert and oriented to person. She was unable to state where she was currently and oriented to year, month, and day but not date. HEENT: Right forehead small, raised, erythematous lesion measuring approximately 0.5 cm in greatestdimension. Smooth surface with well-defined border. Abdominal: G-tube and percutaneous cholecystostomy tube in place both are secured and well-dressed without serosanguinous drainage. Per tube draining very little (<5 cc) bilious fluid. Tube appears to be clear without obstruction. Abdomen soft, non-tender without distention. No guarding, rebound, or rigidity. Skin: Bilateral upper and lower extremities with varying levels of ecchymosis diffusely I/O 08/24 0701 08/25 0700 08/25 0701 08/26 0700 P.O. 240 260 Enteric (NG/OG) Tube 210 150 Feedings 778 125 Intermittent Medications 100 50 Total Intake(mL/kg) 1328 (30.7) 585 (14.1) Urine (mL/kg/hr) 1360 (1.3) 200 (0.2) Drains 15 5 Stool 0 Total Output 1375 205 Net -47 +380 Unmeasured Urine Occurrence 3 x Unmeasured Stool Occurrence 7 x DIAGNOSTICS I have personally reviewed the laboratory data and imaging since admission, and in/outs for past 72hours. ASSESSMENT / PLAN Ms. Galvan is hospitalized on [place] [id number] ([facility]) for evaluation and management of Cholecystitis. Jcaqueline Galvan is a 68-year-old female patient that is currently admitted for a acute cholecystitis. 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 2016), CAD s/p PCI in 2005, AAA (5.[address] from 08/19/23), osteoporosis, malnutrition, and chronic mesenteric ischemia. She transferred to the floor on 08/25/23 after an ICU course and has since improved clinically. Plan for today: - Last day on meropenem 500 mg BID - Continue to wean oxygen requirements as she is down to 1L nasal cannula. Oxygen studies today. - Start on metoclopramide 10 mg prn for nausea. # acute cholecystitis s/p percutaneous cholecystostomy tube (08/22/23) Abdomen soft, non-tender, and non-distended. Last dose of meropenem today. - Complete 5 day course meropenem 500 mg BID tody (08/23/23 - 08/27/23) - plan for tube exchange in 3 months - IR recommends tube flush with 5 mL saline BID # left pleural effusion, s/p Thoracentesis 08/21, likely transudative # acute hypoxemic respiratory failure 2/2 pleural effusions # worsening R pleural effusion Effusion cultures no growth to date. Tolerating O2 wean and currently on 1LNC with O2 saturation inthe mid 90s. - on 1L nasal cannula, wean as tolerated - Oxygen studies - TTE to evaluate for pericardial effusion # AFib Jan Vasc 4, not on anticoagulation # query tachy-bennie, sick sinus, not on beta blockade # pericardial effusion without tamponade physiology # HFpEF ( EF 54%, 2/3 LV diastolic fx) # coronary artery disease status post PCI 2005 # HTN HRS determined that she is not a candidate for pace maker. They recommend she continue on amiodarone. Continue on apixaban 2.5 mg BID. TTE today. Pending results. Blood pressure was elevated overnight. Recommend restarting on home amlodipine at reduced dose of 5 mg BID. - continue amiodarone 400mg TID 10 days, then on 08/30/23, start on 200mg daily for 3 months - 2 week MoMe on discharge with Cardiology follow up - Ophthalmology/prop maker followup outpatient - Start on apixaban 2.5mg BID and discontinue home aspirin 81 mg - Continue home Lipitor 80 mg daily # ESRD w donor transplant (2006, 2016), iso GN # PEDRITO # Anion gap metab acidosis Nephrology following closely. Nephrology recommends changing torsemide to bumetanide 2 mg. Reassuring that cystatin c levels returned improved with eGFR of 21 from 19. Continue to trend cystatin c. Pending tacrolimus trough level. New goal of 4-6. - daily BMP, Mag, Phos - Strict I&Os, daily weights - K >4, Mg >2 - Avoid nephrotoxic medications - Baseline creatinine: 1.2-1.4 - continue to trend cystatin c. - nephrology following, appreciate recs - continue on tacrolimus 0.5 mg qAM and 1.0 mg qPM. Go tacro level 4-6. - change torsemide to bumetanide 2 mg - hold Cellcept iso infection - cont prednisone 5mg daily # Mesenteric ischemia w G tube # malnutrition, BMI 18, chronic wt loss # Acute cholecystitis s/p ritika tube (08/22/23) Emetic episodes overnight. Nausea did not respond to ondansetron 4 mg. Given the advancement of tube feeds, suspect nausea related to rate of tube feeds. After connecting with nutrition about concerns, recommend contino. Given lack of response to ondansetron, recommend metoclopramide 10 mg prn. Pharmacy had recommending discontinuing prior multivitamin. Change to Dialyvite with individual supplementation of zinc and selenium. - age appropriate cancer screening outpatient: mammogram 2017 WNL. Colonoscopy 2015 2 tubular adenoma polyps. Hx smoking but prior CT not capture lung malignancy. Pleural studies: negative lymphoma/leukemia. Wt loss multifactorial 2/2 co-morbidities, ESRD, poor PO, mesenteric ischemia s/p G tube - nutrition consulted, appreciate recs - Protonix 40mg daily - continue tube feeding - continue Creon q.4 hours - continue thiamine 100 mg daily - continue Dialyvite - continue zinc sulfate capsule 220 mg - continue selenium tablet 150 mcg - Start on metoclopramide 10 mg prn # major depression disorder - sertraline 25 mg daily Diet: On tube feeds Tubes/lines: PIV VTE prophylaxis: SCD's, will confirm refusal off anticoagulation with patient. Disposition: Home, Home with Home Health, and Alf Facility with expected discharge date Severe Malnutrition The patient meets the ASPEN Criteria of malnutrition based on: Energy Intake: No Change Interpretation of Weight Loss: No Change Body Fat: Severe Loss Muscle Mass: Severe Loss Fluid Accumulation: Absent Reduced Citrus Picker Strength: Not applicable This is in the context of Chronic Illness. Malnutrition Present Upon Admission: Yes Agree with Registered Dietitian's assessment and treatment plan: Interventions: Enteral nutrition, Vitamin and mineral supplements Plan discussed with [facility] Medicine 3 ([facility]) Talent Acquisition Coordinator, Dr. Cristi Bobo MD, who was present during desai portions of the evaluation today. Please page the [facility] Medicine 3 ([facility]) service pager at [phone] with any questions. * Birgit Sheffield, P.T.A. - 08/26/2023 1:51 PM CDT Patient politely declined therapy. Patient was in bed upon arrival. Stated she was waiting for her son to return as he was bringing her food. I can't eat this stuff. DATA ENTRY ASSOCIATE will follow up tomorrow morning. This is the second attempt made for therapy today. * Lynette Saenz M.S., RDN, LD - 08/26/2023 11:25 AM CDT Nutrition Care Plan Follow Up Clinical Nutrition continues to follow patient for tube feeding recommendations/management ASSESSMENT Completed visit with patient and son today as part of face to face care. Current Nutrition (since admission): Patient reports bout of emesis this morning. She has been feeling nauseous on continuous tube feeds with some bloating. She endorses loose stools. Patient feels home tube feed regimen of 250 mL TID is more tolerable than continuous feeds. She reports 250 mL boluses took 40 min to complete at home. She was able to eat dinner with her daily at home. Son agrees stating she ate a lot at home. She has not had an appetite for oral intake in the hospital but feels she will be able to eat outside of the hospital. Since patient transferred to floor, will transition to bolus feeds as tolerated. Monitor for tolerance. Percentage of Meals Eaten for the past 72 hrs: Percent Meals Eaten (%) 08/26/23 1000 Other (Comment) 08/25/23 1910 0 08/25/23 0900 25 GI Tubes (Adults) Percutaneous endoscopic;Gastrostomy 14 Fr Left;Lower;Quadrant (abdomen) (Active) Placement Date/Time: 08/21/23 1439 GI Tube Type: Percutaneous endoscopic;Gastrostomy Low Profile? :No Balloon, Bumper, or Other?: Balloon Balloon Volume: 5 mL GI Tube Size: 14 Fr Length (cm): 3.5 cmTube Location: Left;Lower;Quadrant (abdomen... Current nutrition orders: Current Diet Adult Diet Regular; Cardiovascular starting at 08/22 1428 Tube feeding with oral diet -Peptamen 1.5 (RTH); Feeding route: PEG/Gastrostomy; Feed options: Continuous; Starting rate (ml/hr): 10 mL/hr; Rate advancement (ml/hrs): 10 mL/hr every 12 hours; Continuous goal rate (ml/hr): 35 mL/hr; Daily goal volu... starting at 08/22 1326 GI Function: Last BM Date: 08/26/23, [place] Stool Chart: Type 6: Fluffy pieces with ragged edges, a mushy stool, Passing Flatus: Yes Pertinent Labs: Last 3 results Lab Units 08/26/23 0733 08/25/23202208/25/23 0723 08/23/23 1838 08/23/23 1553 SODIUM mmol/L 135 135 135 < > -- POTASSIUM mmol/L 4.6 4.7 4.3 < > -- CHLORIDE mmol/L 99 98 101 < > -- BUN mg/dL 47* 46* 46* < > -- CREATININE mg/dL 1.40* 1.55* 1.59* < > -- PHOSPHORUS INORGANIC mg/dL 2.2* 2.3* 2.7 < > -- CALCIUM mg/dL 8.8 8.4* 8.5* < > -- MAGNESIUM mg/dL 2.5* 2.4* 2.6* < > -- TRIGLYCERIDES mg/dL -- -- -- -- 101 < > = values in this interval not displayed. Latest Reference Range & Units 08/24/23 04:14 Vitamin A 32.5 - 78.0 mcg/dL 32.2 (L) Copper, S 77 - 206 mcg/dL 121 Selenium, S 110 - 165 mcg/L 82 (L) Zinc, S 60 - 106 mcg/dL 44 (L) (L): Data is abnormally low Weight since admission: Height: 155 cm Admission Weight: 44.1 kg (08/20/2023) Current Weight: 43.3 kg [place] Body Weight (Calculated) : 47.8 kg BMI (Calculated): 18 kg/m?? Weight change since admission: -0.8 kg Net IO Since Admission: -2,253.19 mL [08/26/23 1125] Estimated Needs: Total Calorie Needs: 7683-4817 calories/day Method to Estimate Energy Needs: kcal/kg (25-30 kcal/kg) Weight Used for Equation Calculations: 45.1 kg Total Protein Needs: 54 - 68 grams/day Method to Estimate Protein Needs (g/kg): 1.2 - 1.5 gm/kg Weight Used to Calculate Protein Needs (Kg): 45.1 kg Nutrition Diagnosis: Altered GI function related to history of mesenteric insufficiency and pancreatic atrophy as evidenced by need for enteral support with pancreatic enzymes. Nutrition Diagnosis Reassessment: Ongoing PLAN Nutrition Intervention: Enteral nutrition, Vitamin and mineral supplements Nutrition parameter to monitor: Meals/Supplement Intake, Weight Status, Enteral, Skin Integrity, Wound Healing, Fluid Balance, Pertinent Labs, Chewing/Swallowing, Nausea/Vomiting/Diarrhea ASPEN Criteria Malnutrition Status: Severe Malnutrition Recommendations: Transition to intermittent bolus feeds: Peptamen 1.5. Start feeds at 125 mL TID on day one. Advanceto goal of 250 mL TID on day two as tolerated. Enteral nutrition provides 1125 calories and 51 grams protein in 750 mL formula. Adjust Creon to TID prior to tube feeds and meals. Increase Therapeutic-M to BID to replete zinc, selenium, and vitamin A deficiencies. Clinical Nutrition will continue to follow. For questions about patient's nutritional care please contact pager [phone] on weekdays 07:30-16:00 or [phone] on weekends/holidays. * Patricia Zimmer PGlory, D.P.T. - 08/26/2023 10:30 AM CDT Wound Therapy Inpatient Treatment Note SUBJECTIVE Patient's Name: Jacqueline Galvna Referring/Attending Provider: Vamshi Vivas M.D. Medical Diagnosis: Cholecystitis [K81.9] Reason for Referral: WD: Advanced wound cares - coccyx and R leg Onset Date: 08/20/23 Payor: [facility] / Plan: [place] / Product Type: PPO / Family/Caregiver Present: No Patient/Caregiver Goals: Wound healing Patient Comments: Patient received resting in bed, agreeable to participation in wound cares. Emesis/nausea limited session. OBJECTIVE Treatment: Wound Location: R knee (also typically treat the coccyx, but session limited by emesis/nausea) Modality: Non-contact low frequency ultrasound x 3 minutes (normally 6 minutes total) Debridement: Mechanical debridement performed with fluffed gauze. Dressings: R knee: aquacel AG, mepilite Position: Patient was in L sidelying position for treatment session. Education provided to patient regarding purpose of advanced modality ultrasound mist therapy and plan of care. Communication and collaboration occurred with patient's nurse; all other wounds are being managed by nursing at this time. Team Communication: Patient's nurse was contacted and patient's status was discussed Assessment Comorbid Conditions: Other (Comment) Personal Factors: Age, Body habitus, History of falls, Needs assistive device, Nutrition/hydration abnormality Wound Care Discharge Needs: Ongoing wound care management by patient and/or caregiver., Wound assessment recommended in 2-4 weeks by trained provider. Clinical Impression: The patient's R knee continues to present with tendinous exposure and a moderate volume of yellow, adherent slough. Session limited by nausea/emesis, patient unable to tolerate turn to complete coccygeal wound cares. RN in agreement complete wound cares as needed to this site. The patient will continue to benefit from advanced modality ultrasound mist therapy 3x/week (-W-) as outlined in the plan of care below. Rehab Potential: Ms. Galvan has good potential to achieve established wound therapy goals within the time frame outlined below. Functional Goals and Timeframes: Goal #1: Patient's coccygeal wound will demonstrate 10% improvement in area (2.7x1.1cm)) in order to demonstrate good progress toward healing. Goal #1 Date: 08/29/23 Goal #1 Status: Ongoing Goal #2: Patient's R leg wound will demonstrate 10% improvement in area (2.6x2.8cm) in order to demonstrate good progress toward healing. Goal #2 Date: 08/29/23 Goal #2 Status: Slowly progressing Progress: Progressing toward goals Plan Patient agrees with the plan of care and goals. Treatment Plan: Frequency: 3 times per week Days of Treatment: Saturday, Saturday, Saturday PT Wound Duration: Until goals are met or hospital discharge PT - Next Inpatient Wound Care Appointment: 08/28/23 Plan: Alter current plan Wound PT Plan Comments: Patient to be provided with advance modality, selective debridement, and wound cares-- 3x/week (--) -- continue to reassess pending wound response and hospital course. Treatment interventions may include: Therapeutic modalities as needed, Debridement, Wound dressing assessment, Wound cares, Offloading, Self-care/home management Time Spent with Patient Modalities Ultrasound - low freq, non-thermal (min): 10 min Time Tracking Total Timed Units (min): 10 min Total Treatment Time (min): 10 min Cassandra Zimmer PMitul., D.P.T. 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 Meds Renally adjusted: meropenem, VTE Prophylaxis: heparin (q12h in light of wt < 50 kg) ASSESSMENT / PLAN ID/GI - acute cholecystitis s/p percutaneous cholecystostomy drain placement on 08/21. Transfer fromICU on 08/24. Continuing on meropenem 500 mg IV q12h for 5 day course (through 08/26) Hx renal txplht - continues on prednisone 5 mg daily, tacrolimus 0.5 mg BID (decrease from home dose 2 mg AM and 2.4 mg PM). Dose reduction in light of supratherapeutic level of 16.4 on 08/22. Most recent level 4.9 from 08/24 AM (goal 6-8). Dose adjustments per nephrology service. Note drug interaction with amiodarone that can likely increase tacrolimus levels. Repeat tacrolimus level pending from this AM. Holding mycophenolate in setting of infection. CV Afib - started on amiodarone currently at 400 mg TID but decreasing to 200 mg daily on 08/29. Plan to continue for 3 months. Not currently on therapeutic anticoagulation with patient uncertain she wants to be on custodial anticoagulation. Volume overload - s/p L-sided thoracentesis (transudative). Undergoing diuresis with IV furosemide dosing intermittently. Gorge Kelly Pharm.D., R.Ph., BCPS * Tami Simmons M.D. - 08/26/2023 7:12 AM CDT NEPHROLOGY CONSULT SERVICE - PROGRESS NOTE Hospital Day 6 SUBJECTIVE Mrs. Jacqueline Galvan is a 68 y.o. female With Benadryl comorbidities including ESRD 2/2 unspecified GN s/p failed renal transplant in 2006 with re transplant in 2017, CAD s/p PCI (2005), HFpEF, HTN, afib not on anticoagulation, AAA, osteoporosis, malnutrition, mesenteric ischemia s/p PEG placement who is admitted for cholecystitis. Nephrology has been consulted for PEDRITO and immunosuppressant management. PEDRITO has been improving since 08/22 and tacrolimus trough has been downtrending. Most recent tacrolimus trough 08/23 was 4.9. This morning, oxygen requirement has now come down to 2 L nasal cannula. She had a total of 1.7 L of urine output recorded yesterday, 350 mL so far since midnight. She received a total of 100 mg IV Lasix yesterday. This morning, she was hypertensive to 171/66, saturating 90% on 2 L nasal cannula. She reports feeling okay, but overall just feels tired and sore. She says that her breathing has improved from previously. She is wondering about discharging home. Morning labs: Hb 8.4, a 74, WBC 9.9, Na 135, K 4.6, bicarb 26, AG 10, BUN 47, creatinine 1.4, magnesium 2.5, phos 2.2 OBJECTIVE Admission weight: 44.1 kg Weights for the past 120 hrs (Last 3 readings): Weight 08/24/23 0400 43.3 kg 08/22/23 0724 45.1 kg I/O 08/23 0000 08/23 23508/24 0000 08/24 23508/25 0000 08/25 2359 P.O. 300 240 Enteric (NG/OG) Tube 150 120 90 Feedings 490 584 439 Intermittent Medications 150 100 Total Intake(mL/kg) 1090 (25.2) 1044 (24.1) 529 (12.2) Urine (mL/kg/hr) 1703 (1.6) 1680 (1.6) 350 (1.1) Drains 0 15 Stool 0 0 Total Output 1703 1695 350 Net -613 -651 +179 Unmeasured Stool Occurrence 7 x 1 x VITAL SIGNS Temperature: [36.7 ??C-37.1 ??C] 36.9 ??C Heart Rate: [44-59] 44 Resp Rate: [11-23] 17 Blood Pressure: (133-153)/(59-68) 133/68 SpO2: [87 %-96 %] 91 % Flow Rate (L/min): [2 L/min-4 L/min] 2 L/min Pulse Rate: [45-68] 45 PHYSICAL EXAMINATION General appearance: Alert, chronically ill-appearing female, cachectic, lying in bed, no acute distress Lungs: Normal work of breathing on 2 L nasal cannula, decreased breath sounds at bilateral bases. No crackles or wheezes appreciated Heart: Bradycardic, regular rhythm, no murmurs, rubs, or gallops appreciated Abdomen: Soft, scaphoid, biliary drain in place draining bilious fluid. Nontender. Extremities: Very thin extremities without lower extremity edema DIAGNOSTICS Results from last 7 days Lab Units 08/25/23 0723 08/24/23 0414 HEMOGLOBIN g/dL 8.2* 7.8* WBC x10(9)/L 9.1 10.3* PLATELETS AUTO x10(9)/L 354 349 Last 2 results Lab Units 08/25/23 2023 08/25/23 0723 SODIUM mmol/L 135 135 POTASSIUM mmol/L 4.7 4.3 BICARBONATE S mmol/L 27 25 BUN mg/dL 46* 46* CREATININE mg/dL 1.55* 1.59* CALCIUM mg/dL 8.4* 8.5* PHOSPHORUS INORGANIC mg/dL 2.3* 2.7 MAGNESIUM mg/dL 2.4* 2.6* ASSESSMENT / PLAN #ESRD 2/2 unspecific GN s/p Renal transplant (2006, 2016) #Hyperkalemia, resolved #PEDRITO, no evidence of ATN on UA, possibly prerenal azotemia and tacrolimus toxicity-improved # Cholecystitis s/p percutaneous cholecystostomy tube placement # Left pleural effusion s/p thoracentesis # Acute hypoxic respiratory failure secondary to pleural effusion # AFib not on anticoagulation # HFpEF (EF 54%) # Hypertension # Chronic malnutrition with BMI of 18 Mrs. Jacqueline Galvan is a 68 y.o. female With Benadryl comorbidities including ESRD 2/2 unspecified GN s/p failed renal transplant in 2006 with re transplant in 2017, CAD s/p PCI (2005), HFpEF, HTN, afib not on anticoagulation, AAA, osteoporosis, malnutrition, mesenteric ischemia s/p PEG placement who is admitted for cholecystitis. Nephrology has been consulted for PEDRITO and immunosuppressant management. Overall, suspect her PEDRITO was likely in the setting of sepsis, prerenal azotemia, and tacrolimus toxicity. Her tacrolimus level has now improved to 4.9 as of yesterday. Her tacrolimus trough goal is reported to be 6-8. However, given that she is 7 years out from transplant, would recommend a tacrolimus trough goal of 4-6. Tacro trough 3.4 today, recommend 0.5 mg in the AM and 1 mg in the PM. Creatinine appears to be around baseline, although I suspect that her GFR is actually much worse given that she is severely malnourished. We will add on cystatin C today and recommend trending cystatin C moving forward. Given that her creatinine appears to be near baseline, we recommend resuming home dose of torsemide 100 mg daily. Recommendations: - Please change tacrolimus dosing to 0.5 mg in the AM and 1 mg in the PM -Goal tacrolimus trough 4-6 given several years out from transplant -Recheck trough 08/26 - Recommend transitioning back to home torsemide 100 mg PO daily - Please replete phos this AM - Continue prednisone 5 mg daily - Continue to hold Cellcept given active infection - Please obtain daily Mg, phosphorus, BMP, cystatin C - Nephrology will continue to follow This case was discussed with Neph A pre owned sales consultant, Dr. Mariano. [place] [phone] with questions. Tami Simmons M.D. Associated attestation - Daysi Mariano M.D. - 08/26/2023 2:49 PM CDT I saw and evaluated the patient, participating in the desai portions of the service. I reviewed Tami Mcdaniel M.D.'s note. I agree with the resident???s findings and plan. Additional comments: Patient with ESRD due to glomerular disease s/p kidney transplant and recent complex medical course in setting of malnutrition and feeding tube placement complicated by leak and secondary peritonitis leading to septic shock and respiratory failure now readmitted for cholecystitis s/p cholecystostomy tube placement. 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 She has no current indications for renal replacement therapy and reassuring that she remains with urine output and her serum creatinine has peaked, but we remain cautiously optimistic given overall advanced underlying CKD. For now, will continue to monitor immunosuppression drug levels for adjustment, see below, and will continue to monitor renal allograft function. Daysi Mariano M.D. Geophysics Professor Talent Acquisition Coordinator Nephrology and Hypertension * Adriano Tellez Jaclyn - 08/26/2023 6:04 AM CDT T Medicine 3 ([facility]) PROGRESS NOTE SUBJECTIVE Ms. Galvan was evaluated by pre owned sales consultant, Dr. Cristi Bobo MD, and the Medicine 3 resident team this morning. No acute events overnight. In discussion with patient about anticoagulation about atrial fibrillation she states that she is unaware of the indication and that this has not been discussed with her. Agreeable to starting on anticoagulation. She denies SOB and chest pain and that she has actually been evaluating her respiratory status throughout the day but not been able to detect changes from baseline. When she was discharged from her prior hospitalization, states that she was not using supplemental oxygen at that time. States that her she has ongoing abdominal pain but rates the pain as a 2/10. She does not like her tube feeds and feels bloated in her LUQ during feeds. At home, she normally eats a single meal per day (dinner) with her without abdominal pain. She has not been eating since her admission andstates that this is due to appetite not pain. Expresses disappointment that she is hospitalized again because she felt as she was improving post hospitalization at the beginning of the year. At that time she was ambulating well around her house but states that since her admission she has had limited mobility. Denies pain with ambulation but rather that she feels as if she does not have the energy to move around. When asked about a wound on her right forehead, states that this was from a fall during her prior hospitalization. Has healed significantly since onset. She has no acute concerns or specific questions. I have reviewed the current medication list. OBJECTIVE VITAL SIGNS Temperature: [36.7 ??C-37.1 ??C] 36.9 ??C Heart Rate: [44-59] 44 Resp Rate: [11-23] 17 Blood Pressure: (133-155)/(59-68) 133/68 SpO2: [87 %-96 %] 91 % Flow Rate (L/min): [2 L/min-4 L/min] 2 L/min Pulse Rate: [45-68] 45 Weight: 43.3 kg (08/24/2023 4:00 AM) Height: 155 cm (08/22/2023 3:18 PM) Body mass index is 18.02 kg/m??. PHYSICAL EXAM General: Laying in bed in a hospital gown with a heavier blanket over her. She is alert and oriented to person. She was unable to state where she was currently and oriented to year, month, and day but not date. HEENT: Right forehead small, raised, erythematous lesion measuring approximately 0.5 cm in greatestdimension. Smooth surface with well-defined border. Cardiac: Bradycardic on right radial pulse and auscultation. Irregularly regular rhythm. No murmurs, extra head sounds, normal PMI. Pulmonary: Clear to auscultation (performed in left lateral decubitus due to mobility). No dullnessto percussion or hyperresonance. Abdominal: G-tube and percutaneous cholecystostomy tube in place both are secured and well-dressed without serosanguinous drainage. Per tube draining very little (<5 cc) bilious fluid. Tube appears to be clear without obstruction. Positive isaac sign with 2/10 pain on inspiration (without inspiratory arrest). Notes tenderness to palpation diffusely over the abdomen greatest in the LUQ. Abdomen soft without distention. No guarding, rebound, or rigidity. Skin: Bilateral upper and lower extremities with varying levels of ecchymosis diffusely I/O 08/23 0701 08/24 0700 08/24 0701 08/25 0700 P.O. 300 240 Enteric (NG/OG) Tube 90 180 Feedings 620 548 Intermittent Medications 150 100 Total Intake(mL/kg) 1160 (26.8) 1068 (24.7) Urine (mL/kg/hr) 2173 (2.1) 1010 (1) Drains 0 15 Stool 0 0 Total Output 2173 1025 Net -1013 +43 Unmeasured Stool Occurrence 1 x 7 x DIAGNOSTICS I have personally reviewed the laboratory data and imaging since admission, and in/outs for past 72hours. Latest Reference Range & Units 08/25/23 07:23 Tacrolimus, Trough 5.0-15.0 (Trough) ng/mL 4.9 (L) (L): Data is abnormally low Latest Reference Range & Units 08/26/23 07:33 Hemoglobin 11.6 - 15.0 g/dL 8.4 (L) Hematocrit 35.5 - 44.9 % 26.4 (L) Erythrocytes 3.92 - 5.13 x10(12)/L 2.91 (L) MCV 78.2 - 97.9 fL 90.7 RBC Distrib Width 12.2 - 16.1 % 16.6 (H) Platelet Count 157 - 371 x10(9)/L 394 (H) Leukocytes 3.4 - 9.6 x10(9)/L 9.9 (H) Neutrophils 1.56 - 6.45 x10(9)/L 7.99 (H) Lymphocytes 0.95 - 3.07 x10(9)/L 1.15 Monocytes 0.26 - 0.81 x10(9)/L 0.67 Eosinophils 0.03 - 0.48 x10(9)/L 0.10 Basophils 0.01 - 0.08 x10(9)/L <0.03 Sodium, S 135 - 145 mmol/L 135 Potassium, S 3.6 - 5.2 mmol/L 4.6 Chloride, S 98 - 107 mmol/L 99 Bicarbonate, S 22 - 29 mmol/L 26 Anion Gap 7 - 15 10 BUN (Blood Urea Nitrogen), S 6 - 21 mg/dL 47 (H) Creatinine 0.59 - 1.04 mg/dL 1.40 (H) Estimated GFR (eGFR) >=60 mL/min/BSA 41 (L) Calcium, Total, S 8.8 - 10.2 mg/dL 8.8 Glucose, S 70 - 140 mg/dL 121 Magnesium 1.7 - 2.3 mg/dL 2.5 (H) Phosphorus (Inorganic), S 2.5 - 4.5 mg/dL 2.2 (L) Albumin, S 3.5 - 5.0 g/dL 2.9 (L) (L): Data is abnormally low (H): Data is abnormally high ASSESSMENT / PLAN Ms. Galvan is hospitalized on [facility] Medicine 3 ([facility]) for evaluation and management of Cholecystitis. Jacqueline Galvan is a 68-year-old female patient that is currently admitted for a acute cholecystitis. 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 2016), CAD s/p PCI in 2005, AAA (5.[address] from 08/19/23), osteoporosis, malnutrition, and chronic mesenteric ischemia. She transferred to the floor on 08/25/23 after an ICU course and has since improved clinically. No acute events overnight. She continues on 2L O2 by nasal cannula and her nurse states that they have attempted wean but were unable to come down from her current 2L without desaturation to 87%. Recommend continued attempts to wean O2 with Continues to be bradycardic with HR minimum of 44. Otherwise, vitals stable and physical exam reassuring with clear lungs and minimal tenderness in abdominal RUQ. Plan for today: - Discontinue nystatin as candidal rash has resolved - Granados catheter removed in preparation for disposition - Considering clinical improvements of cholecystitis and pleural effusion, recommend additional consult with HRS for possible pacemaker - Continue on meropenem 500 mg BID until 08/27/23 - Start on apixaban 2.5 mg BID for atrial fibrillation - Attempt to wean oxygen requirements as she has been on 2L nasal cannula since admission. If unable to wean off of NC, follow up with O2 studies. - Follow up with IR for clarification of patient home care instruction on aspiration/flushing of percutaneous tube # acute cholecystitis s/p percutaneous cholecystostomy tube (08/22/23) Physical exam reveals mild RUQ pain with inspiration. Afebrile. Clinically improving and recommend she complete course of meropenem 500 mg BID until 08/27/23. Perc tube with minimal bilious drainage. In discussion with IR, they recommend 5 mL tube flushes BID. Detailed specifics will be added to after visit summary. - continue meropenem to complete a 5 day course (08/23/23 - 08/27/23) - plan for tube exchange in 3 months - IR recommends tube flush with 5 mL saline BID # left pleural effusion, s/p Thoracentesis 08/21, likely transudative # acute hypoxemic respiratory failure 2/2 pleural effusions # worsening R pleural effusion Patient denies SOB. Fluid from right pleural effusion with no growth today. Lungs clear to auscultation without dullness to percussion or hyperresonance. Continued O2 requirements with 2L nasal cannula but recommend wean as tolerated. - on 2L nasal cannula, wean as tolerated # AFib Jan Vasc 4, not on anticoagulation # query tachy-bennie, sick sinus, not on beta blockade # pericardial effusion without tamponade physiology # HFpEF ( EF 54%, 2/3 LV diastolic fx) # coronary artery disease status post PCI 2005 # HTN Per HRS, minimal burden Afib in the setting of illness. He had had previously been thought to not be a good candidate for permanent device given active infection and no indication PPM. However, givenclinical improvement, recommend follow up with HRS for re-evaluation due to ongoing bradycardia. Patient agreeable to starting on anticoagulation. Recommend starting on apixaban 2.5 mg BID (reduced dose due to renal impairment with Cr of 1.55 and low body weight of 43 kg). She had been scheduled for inpatient TTE but considering her disposition timeline, she will likely discharge prior to the recommended date of 08/29/23. Recommend OP TTE with follow up with PCP in 2 weeks. - continue amiodarone 400mg TID 10 days, then on 08/30/23, start on 200mg daily for 3 months - 2 week MoMe on discharge with Cardiology follow up - Ophthalmology/prop maker followup outpatient - Start on apixaban 2.5mg BID and discontinue home aspirin 81 mg - Continue home Lipitor 80 mg daily - Plan for TTE on 08/29/23 for pericardial effusion. If discharged, can return as outpatient. # ESRD w donor transplant (2006, 2016), iso GN # PEDRITO # Anion gap metab acidosis Nephrology following closely. Her home dose of tacrolimus had been reduced to 0.5 mg BID from 2 mg qAM and 2.4 qPM due to supratherapeutic level of 16.4 on 08/22). Continues on tacrolimus 0.5 mg BID. Tacrolimus level down to 3.4 from previous at 4.9 on 08/24. After consulting with nephrology, they recommend increasing dose to 0.5 mg qAM and 1.0 mg qPM. Cystatin C level returned at 2.63 with an eGFRof 19. Phos repleted. Will continue to monitor electrolytes. - daily BMP, Mag, Phos - Strict I&Os, daily weights - K >4, Mg >2 - Avoid nephrotoxic medications - Baseline creatinine: 1.2-1.4 - nephrology following, appreciate recs - continue tacrolimus 0.5 mg b.i.d. next tacro level on 08/25. Go tacro level 6-8 - hold 100mg torsemide daily - hold Cellcept iso infection - cont prednisone 5mg daily # Mesenteric ischemia w G tube # malnutrition, BMI 18, chronic wt loss # Acute cholecystitis s/p ritika tube (08/22/23) Patient uncomfortable with G-tube feeds but not currently taking nutritional intake po. Discussion with patient about setting a goal of eating 1 meal per day. G-tube diet changed to 125 mL TID on day1 and attempt to advance to 250 mg TID. - age appropriate cancer screening outpatient: mammogram 2017 WNL. Colonoscopy 2015 2 tubular adenoma polyps. Hx smoking but prior CT not capture lung malignancy. Pleural studies: negative lymphoma/leukemia. Wt loss multifactorial 2/2 co-morbidities, ESRD, poor PO, mesenteric ischemia s/p G tube - nutrition consulted, appreciate recs - Protonix 40mg daily - continue tube feeding - continue Creon q.4 hours - continue thiamine 100 mg daily # major depression disorder - sertraline 25 mg daily Diet: On tube feeds Tubes/lines: PIV VTE prophylaxis: SCD's, will confirm refusal off anticoagulation with patient. Disposition: Home, Home with Home Health, and Alf Facility with expected discharge date Severe Malnutrition The patient meets the ASPEN Criteria of malnutrition based on: Energy Intake: No Change Interpretation of Weight Loss: No Change Body Fat: Severe Loss Muscle Mass: Severe Loss Fluid Accumulation: Absent Reduced Citrus Picker Strength: Not applicable This is in the context of Chronic Illness. Malnutrition Present Upon Admission: Yes Agree with Registered Dietitian's assessment and treatment plan: Interventions: Enteral nutrition, Vitamin and mineral supplements Plan discussed with [facility] Medicine 3 ([facility]) Talent Acquisition Coordinator, Dr. Cristi Bobo MD, who was present during desai portions of the evaluation today. Please page the T Medicine 3 ([facility]) service pager at [phone] with any questions. * Gabrielle Hernandez M.D. - 08/26/2023 6:00 AM CDT T Medicine 3 ([facility]) Progress Note SUBJECTIVE No acute events overnight. Patient reports feeling overall generalized weakness, reports this is more chronic. She denies worsening shortness of breath. I have reviewed the current medication list. OBJECTIVE VITAL SIGNS Temperature: [36.7 ??C-37.1 ??C] 36.9 ??C Heart Rate: [44-59] 44 Resp Rate: [11-23] 17 Blood Pressure: (133-155)/(59-68) 133/68 SpO2: [87 %-96 %] 91 % Flow Rate (L/min): [2 L/min-4 L/min] 2 L/min Pulse Rate: [45-68] 45 PHYSICAL EXAM Alert and oriented. Patient lying comfortably in bed on nasal cannula. Nontoxic-appearing. Small red lesion on right forehead, patient reports from fall during last hospitalization, improving Minimal tenderness to palpation RUQ, negative Isaac's sign. Pericholecystic drain in place draining dark yellow bilious fluid. DIAGNOSTICS I have personally reviewed the laboratory data and imaging since admission, and in/outs for past 72hours. ASSESSMENT / PLAN Ms. Galvan is a 68 y.o. 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 Currently admitted for management of acute cholecystitis s/p percutaneous cholecystostomy drain placed 08/22/2023. Per report, the patient's ICU course included left-sided thoracentesis due to volume overload whichwas noted to be transudative and after her drain placement develop right-sided pleural effusion which was also drained and appear more consistent with an exudative effusion particularly in the setting of recent drain placement. Cultures have been negative so far and so patient will complete course of antibiotics with meropenem which ends on 08/27/2023. 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 Currently she is on amiodarone to attempt conversion tosinus rhythm. She will require vision exam on discharge as well as a 2 week MOME and Cardiology follow up to monitor her AFib and bradycardia. Will plan for an echo next week to evaluate for resolving pericardial effusion. Overall the patient appears clinically improved compared to when she was sent to the ICU. Will planto wean oxygen as tolerated the patient continues to require oxygen will perform oxygen study and plan for discharge. Plan for today: Continue meropenem 500 mg BID until 08/27/2023 Continue amiodarone load Plan for TTE to evaluate for pericardial effusion prior to discharge Follow up with IR on aspiration/flushing of tube Attempt to wean oxygen, if unable will need O2 study Initiate anticoagulation for atrial fibrillation with CHADSVASC 4 at reduced dose 2.5 mg BID given renal function and weight PT/OT evaluation Replete phosphorus Re-start home torsemide 100 mg daily Tacrolimus goal 4-6, increase dose to 0.5 mg in the morning and 1 mg in the evening # acute cholecystitis s/p percutaneous cholecystostomy tube (08/22/23) - continue meropenem to complete a 5 day course (08/23/23 - 08/27/23) - plan for tube exchange in 3 months - will follow up with IR on if patient will need aspiration/flushing of tube # left pleural effusion, s/p Thoracentesis 08/21, likely transudative # acute hypoxemic respiratory failure 2/2 pleural effusions # worsening R pleural effusion - on nasal cannula, wean as tolerated - oxygen study if unable to wean # AFib Jan Vasc 4, not on anticoagulation # query tachy-bennie, sick sinus, not on beta blockade # pericardial effusion without tamponade physiology # HFpEF ( EF 54%, 2/3 LV diastolic fx) # coronary artery disease status post PCI 2005 # HTN Per HRS, minimal burden Afib in the setting of illness. Not good candidate permanent device given active infection and no indication PPM. If recurrent -> 2 week MoMe and outpatient CV followup. - touch base with HRS about possible PPM placement with improving infection - continue amiodarone 400mg TID 10 days, then 200mg daily for 3 months (start 08/29) - 2 week MoMe on discharge with Cardiology follow up - Ophthalmology/prop maker followup outpatient - Initiate Eliquis 2.5 mg BID for CHADSVASC 4, discontinue aspirin - Continue Lipitor 80 mg daily - plan for TTE for pericardial effusion prior to discharge # ESRD w donor transplant (2006, 2016), iso GN # PEDRITO # Anion gap metab acidosis - daily BMP, Mag, Phos - Strict I&Os, daily weights - K >4, Mg >2 - Avoid nephrotoxic medications - Baseline creatinine: 1.2-1.4 - nephrology following, appreciate recs - Goal tacro 4-6, given low value will increase to 0.5 mg in the morning and 1 mg in the evening - Re-start home torsemide 100 mg daily - hold Cellcept iso infection - cont prednisone 5mg daily # Mesenteric ischemia w G tube # malnutrition, BMI 18, chronic wt loss # Acute cholecystitis s/p ritika tube (08/22/23) - age appropriate cancer screening outpatient: mammogram 2016 wnl. Colonoscopy 2014 2 tubular adenoma polyps. Hx smoking but prior CT not capture lung malignancy. Pleural studies: negative lymphoma/leukemia. Wt loss multifactorial 2/2 co-morbidities, ESRD, poor PO, mesenteric ischemia s/p G tube - nutrition consulted, appreciate recs - vitamin repletion with dialyvite, zinc sulfate 220 mg, selenium 150 mcg per nutrition - Protonix 40mg daily - continue tube feeding, currently 125 mL TID, goal 250 mL TID - continue Creon TID with meals - continue thiamine 100 mg daily # major depression disorder - sertraline 25 mg daily Diet: On tube feeds Tubes/lines: PIV VTE prophylaxis: eliquis Disposition: Home, Home with Home Health, and Alf Facility with expected discharge date Severe Malnutrition The patient meets the ASPEN Criteria of malnutrition based on: Energy Intake: No Change Interpretation of Weight Loss: No Change Body Fat: Severe Loss Muscle Mass: Severe Loss Fluid Accumulation: Absent Reduced Citrus Picker Strength: Not applicable This is in the context of Chronic Illness. Malnutrition Present Upon Admission: Yes Agree with Registered Dietitian's assessment and treatment plan: Interventions: Enteral nutrition, Vitamin and mineral supplements Plan discussed with [facility] Medicine 3 ([facility]) Talent Acquisition Coordinator, Dr. Cristi Bobo, who was present during desai portions of the evaluation today. Please page the [facility] Medicine 3 ([facility]) service pager at [phone] with any questions. Gabrielle Hernandez M.D. Associated attestation - Rhoda Bobo M.D. - 08/27/2023 7:49 AM CDT I saw and evaluated the patient, participating in the desai portions of the service. I reviewed the resident/fellow???s note. I agree with the resident/fellow???s findings and plan. * David Joy M.D. - 08/25/2023 1:45 PM CDT T Medicine 3 ([facility]) TRANSFER ACCEPT NOTE SUBJECTIVE On return from the ICU the patient reports feeling well. She has no acute concerns. Family updated on the plan. I have reviewed the current medication list. OBJECTIVE VITAL SIGNS Temperature: [36.8 ??C-37 ??C] 36.8 ??C Heart Rate: [52-63] 55 Resp Rate: [11-22] 16 Blood Pressure: (122-155)/(54-104) 148/62 SpO2: [87 %-96 %] 90 % Flow Rate (L/min): [4 L/min] 4 L/min Pulse Rate: [52-63] 56 PHYSICAL EXAM Alert and oriented. Patient lying comfortably in bed on nasal cannula. Nontoxic-appearing. DIAGNOSTICS I have personally reviewed the laboratory data and imaging since admission, and in/outs for past 72hours. ASSESSMENT / PLAN Ms. Galvan is a 68 y.o. 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 Currently admitted for management of acute cholecystitis s/p percutaneous cholecystostomy drain placed 08/22/2023. Per report, the patient's ICU course included left-sided thoracentesis due to volume overload whichwas noted to be transudative and after her drain placement develop right-sided pleural effusion which was also drained and appear more consistent with an exudative effusion particularly in the setting of recent drain placement. Cultures have been negative so far and so patient will complete course of antibiotics with meropenem which ends on 08/27/2023. 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 Currently she is on amiodarone to attempt conversion tosinus rhythm. She will require vision exam on discharge as well as a 2 week MOME and Cardiology follow up to monitor her AFib and bradycardia. Will plan for an echo next week to evaluate for resolving pericardial effusion. Overall the patient appears clinically improved compared to when she was sent to the ICU. Will planto wean oxygen as tolerated the patient continues to require oxygen will perform oxygen study and plan for discharge. Plan for today: - returned to the floor - continuing meropenem 500 mg b.i.d. until 08/27/2023 - patient reportedly refused anticoagulation. Will follow up on this - continue amiodarone load - plan for TTE to evaluate for pericardial effusion - will follow up with IR on if patient will need aspiration/flushing of tube # acute cholecystitis s/p percutaneous cholecystostomy tube (08/22/23) - continue meropenem to complete a 5 day course (08/23/23 - 08/27/23) - plan for tube exchange in 3 months - will follow up with IR on if patient will need aspiration/flushing of tube # left pleural effusion, s/p Thoracentesis 08/21, likely transudative # acute hypoxemic respiratory failure 2/2 pleural effusions # worsening R pleural effusion - on nasal cannula, wean as tolerated # AFib Jan Vasc 4, not on anticoagulation # query tachy-bennie, sick sinus, not on beta blockade # pericardial effusion without tamponade physiology # HFpEF ( EF 54%, 2/3 LV diastolic fx) # coronary artery disease status post PCI 2005 # HTN Per HRS, minimal burden Afib in the setting of illness. Not good candidate permanent device given active infection and no indication PPM. If recurrent -> 2 week MoMe and outpatient CV followup. - continue amiodarone 400mg TID 10 days, then 200mg daily for 3 months - 2 week MoMe on discharge with Cardiology follow up - Ophthalmology/prop maker followup outpatient - ICU team discussed w patient on anticoagulation (Afib, CHADVASC 4). Given poor renal fx -> Eliquis 2.5mg BID. Patient elected not to continue but will confirm this with them. - continue home aspirin 81 mg daily (if patient decides on anticoagulation may need to discontinue this), Lipitor 80 mg daily - plan for TTE on 08/29/23 for pericardial effusion # ESRD w donor transplant (2006, 2016), iso GN # PEDRITO # Anion gap metab acidosis - daily BMP, Mag, Phos - Strict I&Os, daily weights - K >4, Mg >2 - Avoid nephrotoxic medications - Baseline creatinine: 1.2-1.4 - nephrology following, appreciate recs - continue tacrolimus 0.5 mg b.i.d. next tacro level on 08/25. Go tacro level 6-8 - hold 100mg torsemide daily - hold Cellcept iso infection - cont prednisone 5mg daily # Meseteric ischemia w G tube # malnutrition, BMI 18, chronic wt loss # Acute cholecystitits s/p ritika tube (08/22/23) - age appropriate cancer screening outpatient: mammogram 2016 wnl. Colonoscopy 2014 2 tubular adenoma polyps. Hx smoking but prior CT not capture lung malignancy. Pleural studies: negative lymphoma/leukemia. Wt loss multifactorial 2/2 co-morbidities, ESRD, poor PO, mesenteric ischemia s/p G tube - nutrition consulted, appreciate recs - Protonix 40mg daily - continue tube feeding - continue Creon q.4 hours - continue thiamine 100 mg daily # major depression disorder - sertraline 25 mg daily Diet: On tube feeds Tubes/lines: PIV VTE prophylaxis: SCD's, will confirm refusal off anticoagulation with patient. Disposition: Home, Home with Home Health, and Alf Facility with expected discharge date Severe Malnutrition The patient meets the ASPEN Criteria of malnutrition based on: Energy Intake: No Change Interpretation of Weight Loss: No Change Body Fat: Severe Loss Muscle Mass: Severe Loss Fluid Accumulation: Absent Reduced Citrus Picker Strength: Not applicable This is in the context of Chronic Illness. Malnutrition Present Upon Admission: Yes Agree with Registered Dietitian's assessment and treatment plan: Interventions: Enteral nutrition, Vitamin and mineral supplements Plan discussed with T Medicine 3 ([facility]) Talent Acquisition Coordinator, Vamshi Carlton M.D., who was present during desai portions of the evaluation today. Please page the T Medicine 3 ([facility]) service pager at [phone] with any questions. David Joy M.D. Internal Medicine PGY-3 [id number] Associated attestation - Vamshi Vivas M.D. - 08/25/2023 4:03 PM CDT MEDICINE TEAM 3 - ATTENDING PHYSICIAN NOTE I have independently seen and examined Mrs. Jacqueline Galvan. I have discussed the history and examination, independently reviewed the salient features, and agree with the findings and plan as documented in the resident's note. Their note should be considered an integral part of my note, with the following comments: PLAN Patient downgraded from ICU - ICU course notable for placement of cholecystostomy drain on 08/21 as destination therapy for cholecystitis. She underwent left-sided thoracentesis due to volume overload, found to be transudative, and also had a right-sided exudative effusion in the setting of recent drain placement. She continues on meropenem, with stop date 08/27/23. Patient was noted to have labile heart rates with concern for tachy/bennie syndrome - she is currently on amiodarone. Will need TTE next week in the setting of recent pericardial effusion. Continue nutrition, PT involvement. Continue to monitor volume status. Patient received diuresis in ICU and we are weaning O2 as tolerated. Vamshi Vivas M.D. Attending Physician Medicine 3 Service * Joe Winter M.D. - 08/25/2023 11:47 AM CDT Patient seen and evaluated with the nephrology ICU team and I agree with the note dated from today Briefly this is a 68-year-old woman with end-stage renal disease secondary to glomerular nephritis status post 2 kidney transplant the latest 1 being in 2017 admitted with acute cholecystitis. Assessment and plan -hold tacrolimus until levels are below 8 -kidney function is at baseline -Her goal tacrolimus level is 6-8 -continue tacrolimus at 0.5 mg q.12 hours until the next trough levels are available -continue to Hold CellCept -continue prednisone 5 mg daily -check tacrolimus level in a.m. again tomorrow -discussed with the family as well as the ICU team in detail * Velvet Kimball P.T., D.P.T. - 08/25/2023 11:23 AM CDT Physical Therapy Inpatient Treatment SUBJECTIVE Patient's Name: Jacqueline Galvan Referring/Attending Provider: Vamshi Vivas M.D. Reason for Referral: Physical Therapy Evaluate and Treat History of Present Illness: Jacqueline Galvan is a 68 y.o. female who was admitted to [facility] in [place] on 08/20/2023 for Cholecystitis [K81.9] Precautions Other Precautions: respiratory 4.5 NC), R biliary tube, PEG tube, cognition/delirium, fall Pain Assessment: Pain not reported during session. Patient/Caregiver Goals: No goals stated Subjective Comments: Nursing Family agreed to session. OBJECTIVE Vital Signs Vitals stable per chart review. Outcome Measures: [facility] Inpatient Short Form: -[facility] Basic Mobility (V.2) How much help from another person do you currently need???If the patient hasn't done an activity recently, how much help from another person do you think he/she would needif he/she tried? 1. Turning from your back to your side while in a flat bed without using bedrails?: A Little 2. Moving from lying on your back to sitting on the side of a flat bed without using bedrails?: A Little 3. Moving to and from a bed to a chair (including a wheelchair)?: A Little 4. Standing up from a chair using your arms (e.g., wheelchair, or bedside chair)?: A Little 5. To walk in hospital room?: A Little 6. Climbing 3-5 steps with a railing?: Total -[facility] Basic Mobility (V.2) Raw Score: 16 -[facility] Basic Mobility (V.2) Standardized Score: 38.32 Interpretation: Based on scoring guidelines using the raw score value: Those going to home had an average score at or above 18 Those going to facility had an average score at or below 17 Clinicians answer the [facility] Inpatient Short Form based on observed patient activity and/or clinical judgement (ie. patient can be scored without physically performing each activity) Therapeutic Interventions: ROLLING: Assistance Level: Supervision of 1 Device: bedrail Assistance/Cueing: verbal, tactile, and visual for Lower extremity placement, Sequencing, Technique, Upper extremity placement, and Upper extremity reaching Delivery: educated, instructed, assessed, and facilitated SUPINE TO SIT: Assistance Level: Minimal Assistance of 1 Device: bedrail Assistance/Cueing: verbal, tactile, and visual for Lower extremity placement, Sequencing, Technique, Trunk support, Upper extremity placement, and Upper extremity reaching Delivery: educated, instructed, assessed, facilitated, and assisted SCOOTING: Assistance Level: Supervision of 1 Surface: Bed Assistance/Cueing: verbal for Technique and scooting to edge of bed until feet flat on floor and hips square SIT TO STAND: Assistance Level: Contact guard assist of 1 Device: gait belt and front wheeled walker Surface: Bed Assistance/Cueing: verbal, tactile, and visual for Anterior weight shifting, Lower extremity placement, Sequencing, Technique, Terminal hip extension, and Upper extremity placement Delivery: educated, instructed, assessed, facilitated, and assisted STAND TO SIT: Assistance Level: Contact guard assist of 1 Device: gait belt and front wheeled walker Surface: Chair Assistance/Cueing: verbal, tactile, and visual for Alignment with seated surface, Eccentric control, Hip Flexion, Lower extremity placement, and Upper extremity placement Delivery: educated, instructed, assessed, facilitated, and assisted GAIT: Distance: 18.36 meters Assistance Level: Contact guard assistance of 1, +1 chair follow Device: gait belt and front wheeled walker, chair follow Quality: decreased base of support, decreased gait speed, decreased heel strike, decreased step height, decreased step length, decreased toe off, downward gaze, steady Assistance/Cueing:verbal, tactile, and visual for Forward gaze, Increased step length, Sequencing, Technique, Upright posture, and Widened base of support Delivery: educated, instructed, assessed, facilitated, and assisted Education: -Role of PT in acute setting and collaborated with patient and/or family on goals and plan of care. -Safe transfer techniques -Delirium prevention -Review recommended activity goals/increase activity as tolerated The patient's status was discussed and the following coordination of care occurred with the RN and OT Patient was left in wheelchair transferring out of MICU at end of session with call light in reach,all needs met and questions answered. Assessment Discharge Therapy Needs - PT: Ongoing skilled physical therapy Skilled therapy can include physical therapy provided by home health, outpatient clinic, or a post-acute facility. The location of these services is determined by the patient's care team in partnership with patient/family. Level of Care Needed - PT: Assistance with bed mobility, Assistance with transfers (Comment), Assistance with walking and moving around the home, Assistance with stairs, Physical assistance needed, Cognitive assistance needed Equipment Recommended - PT: Front-wheeled walker Patient [...] will be updated as appropriate. Clinical Impression: 68 y.o. female who was admitted to [facility] in [place] on 08/20/2023 for Cholecystitiss/p ERCP, PEG exchange, thoracentesis 08/21/23 & thoracentesis 08/22/23 & 08/23/23. At baseline patient lives at home with her and was independent with mobility and ADLs without gait device. Patient is making good progress with functional mobility requiring decreased level of assistance with improved activity tolerance/ambulation distance. Patient requires encouragement to increase activity/mobility and level of independence these task throughout the day. Patient currently requires supervision with rolling using bed rail, minimal assistance with supine> sit transferusing bed rail, contact guard assist sit<> stand using front wheeled walker, and ambulating adistance of 18 m using front wheeled walker with contact guard assistance.Patient is currently below her baseline level of function and would continue to benefit from ongoing physical therapy to improve strength, functional mobility, activity tolerance, and level independence. Recommend patient increase activity as tolerated working on the below listed activity goals. Recommended activity goals: -Delirium prevention/intervention measures -Chair 3x/day using front wheeled walker/gait belt assist x1 -Progress mobility with therapy, active participation in ADLs -Repositioning every 2 hours encouraging active patient participation Recommend delirium prevention/treatment measures including: -Promote family at bedside -Lights on/shades open during the day -Limiting sleep disturbances at night -Use of baseline vision/hearing devices(glasses, hearing aids) -Frequent reorientation -Promoting activity/mobility and daily routine throughout the day -Avoiding sedative medications -Avoid TV with exception to relaxation channel/light music unless patient requests. Plan PT Plan Comments: Continue to progress functional mobility and lower extremity exercises appropriate. Continue to work on rolling/supine<> sit transfers/sit<> stand transfers and progressambulation initiating use of front wheeled walker increasing distance and frequency as tolerated with chair follow. Recommended activity goals: Delirium prevention/intervention measures, chair 3x/dayusing front wheeled walker/gait belt assist x1, progress [...] Progressing PT Goal #3: Patient will be independent/modified independent utilizing most appropriate gait deviceambulating a distance of 60 m to progress towards functional independence. PT Goal #3 Status: Slowly progressing Treatment Plan: Plan: Continue with current plan PT Amount: 1 visit per day PT Frequency: 7 times per week PT Inpatient Duration : Until goals are met or hospital discharge Requires Inpatient Follow-Up: Yes PT - Next Inpatient Appointment: 08/26/23 Patient unable to verbalize agreement to the plan of care and goals due to mental status or level of consciousness, but family members present to consult and agree with the plan as stated above. Treatment interventions may include: Treatment/Interventions: Therapeutic exercise, Therapeutic functional activity, Gait training, Self-care/home management, Neuromuscular re-education Billing: Time Spent with Patient Therapeutic Interventions Therapeutic Activity (min): 13 min Time Tracking Total Timed Units (min): 13 min Total Treatment Time (min): 13 min Velvet Kimball P.T., D.P.T. * Srinivas Mariano P.T. - 08/25/2023 10:15 AM CDT Wound Therapy Inpatient Treatment Note SUBJECTIVE Patient's Name: Jacqueline Patricia Rosannabhumika Referring/Attending Provider: Vamshi Vivas M.D. Medical Diagnosis: Cholecystitis [K81.9] Reason for Referral: WD: Advanced wound cares - coccyx and R leg Onset Date: 08/20/23 Payor: [employer] [facility] / Plan: [employer] [place] / Product Type: PPO / Patient/Caregiver Goals: Wound healing Patient Comments: Patient resting in bed, agreeable to receiving PMR wound care. OBJECTIVE Treatment: Wound Location: coccyx, right knee Modality: Non-contact low frequency ultrasound x 6 minutes Debridement: Mechanical debridement performed with fluffed gauze. Dressings: Coccyx: plurogel, sacral mepiborder R leg: plurogel, Aquacel AG, mepifoam/lite, kerlix, tape Position: Patient was in L sidelying position for coccyx and supine for treatment of right knee. Team Communication: Patient's nurse was contacted and patient's status was discussed Assessment Comorbid Conditions: Other (Comment) Personal Factors: Age, Body habitus, History of falls, Needs assistive device, Nutrition/hydration abnormality Wound Care Discharge Needs: Ongoing wound care management by patient and/or caregiver., Wound assessment recommended in 2-4 weeks by trained provider. Clinical Impression: The patient presents with coccygeal and R inferior knee wounds. The coccygeal wound has a small volume of yellow, adherent slough and is moderately tender to palpation. The R leg wound has tendinous exposure and a moderate volume of yellow, adherent slough present. The patient will continue to benefit from advanced modality ultrasound mist therapy daily x5 (until 08/25) as outlined in the plan of care below. Rehab Potential: Ms. Galvan has good potential to achieve established wound therapy goals within the time frame outlined below. Functional Goals and Timeframes: Goal #1: Patient's coccygeal wound will demonstrate 10% improvement in area (2.7x1.1cm)) in order to demonstrate good progress toward healing. Goal #1 Date: 08/29/23 Goal #1 Status: Ongoing Goal #2: Patient's R leg wound will demonstrate 10% improvement in area (2.6x2.8cm) in order to demonstrate good progress toward healing. Goal #2 Date: 08/29/23 Goal #2 Status: Ongoing Progress: Progressing toward goals Plan Patient agrees with the plan of care and goals. Treatment Plan: Frequency: 5 times per week Days of Treatment: , Saturday, Saturday, Saturday, Saturday PT Wound Duration: Until goals are met or hospital discharge PT - Next Inpatient Wound Care Appointment: 08/26/23 Plan: Continue with current plan Wound PT Plan Comments: Patient to be provided with advance modality, selective debridement, and wound cares-- daily x5 (until 08/25) -- continue to reassess pending wound response and hospital course. Treatment interventions may include: Therapeutic modalities as needed, Debridement, Wound dressing assessment, Wound cares, Offloading, Self-care/home management Time Spent with Patient Modalities Ultrasound - low freq, non-thermal (min): 20 min Time Tracking Total Timed Units (min): 33 min Total Treatment Time (min): 33 min Srinivas Mariano P.T. * Devon Akbar M.D. - 08/25/2023 8:52 AM CDT NEPHROLOGY ICU CONSULT SERVICE - PROGRESS NOTE Hospital Day 5 SUBJECTIVE Ms. Galvan is a 68 y.o. female with a past medical history significant for failed two renal transplants (most recent 2016) on chronic immunosuppression, chronic malnutrition with mesenteric ischemia and PEG tube who was admitted to the intensive care unit on 08/22/2023 for hypoxemic respiratory failure. She initially presented to outside hospital for fever and abdominal pain and was found to have acute cholecystitis. She underwent ERCP with a transcystic stent placement on 08/20. She was planned to have a percutaneous cholecystostomy tube in IR today, but she was found to be hypoxemic. She ultimately had 1.25 L of fluid resuscitation. She was initially on 4 L of nasal cannula oxygen had a s harp increase this morning requiring high-flow nasal cannula oxygen and transferred to the intensive care unit. She is now s/p thoracentesis and percutaneous cholecystostomy tube placement, and is pending further evaluation by the primary team. We were consulted for management of her immunosuppression. Events: -oxygen requirement now down to 4 L nasal cannula. Patient feels like her breathing has improved s/p thoracentesis -restarted tacrolimus 0.5 mg BID OBJECTIVE Admission weight: 44.1 kg Weights for the past 120 hrs (Last 3 readings): Weight 08/24/23 0400 43.3 kg 08/22/23 0724 45.1 kg 08/20/23 2210 44.1 kg I/O 08/22 0000 08/22 2359 08/23 0000 08/239 08/24 0000 08/24 2359 P.O. 200 300 Enteric (NG/OG) Tube 60 150 Feedings 100 490 280 Continuous Medications 46.8 Intermittent Medications 100 150 Total Intake(mL/kg) 506.8 (11.2) 1090 (25.2) 280 (6.5) Urine (mL/kg/hr) 970 (0.9) 1703 (1.6) 755 (2) Emesis or Enteric Tube 0 Drains 0 0 Stool 0 Total Output 970 1703 755 Net -463.2 -613 -475 Unmeasured Urine Occurrence 3 x Unmeasured Stool Occurrence 2 x VITAL SIGNS Temperature: [36.6 ??C-37 ??C] 36.8 ??C Heart Rate: [53-68] 54 Resp Rate: [11-25] 17 Blood Pressure: (122-160)/(54-104) 153/64 SpO2: [87 %-100 %] 90 % Flow Rate (L/min): [4 L/min-12 L/min] 4 L/min Pulse Rate: [53-69] 55 PHYSICAL EXAMINATION General appearance: alert and interactive, pale, appears chronically ill. HEENT: Ulcerated lesion on right forehead. Cardiac: irregularly irregular rhythm. No murmurs appreciated. Lungs: Intermittent cough. On supplemental oxygen via nasal cannula Extremities: No lower extremity edema. Mental statu: AOx3. Follows commands. DIAGNOSTICS Results from last 7 days Lab Units 08/25/23 0723 08/24/23 0414 HEMOGLOBIN g/dL 8.2* 7.8* WBC x10(9)/L 9.1 10.3* PLATELETS AUTO x10(9)/L 354 349 Last 2 results Lab Units 08/25/23 0723 08/24/23 2034 08/22/23 1258 08/22/23 0949 SODIUM P mmol/L -- -- -- 137 SODIUM mmol/L 135 134* < > -- POTASSIUM mmol/L 4.3 4.6 < > -- POTASSIUM P mmol/L -- -- -- 3.9 BICARBONATE PLASMA mmol/L -- -- -- 18* BICARBONATE S mmol/L 25 22 < > -- BUN P mg/dL -- -- -- 46* BUN mg/dL 46* 45* < > -- CREATININE mg/dL 1.59* 1.81* < > 2.05* CALCIUM P mg/dL -- -- -- 8.5* CALCIUM mg/dL 8.5* 8.1* < > -- PHOSPHORUS INORGANIC mg/dL 2.7 3.0 < > -- MAGNESIUM mg/dL 2.6* 2.7* < > 2.0 < > = values in this interval not displayed. Tacrolimus level 16.4 on 08/22. Trough on 08/23 was 9.1 ASSESSMENT / PLAN #ESRD #S/p Renal transplant (2006, 2016) #Unspecified glomerulonephritis #Hyperkalemia, resolved #PEDRITO, no evidence of ATN on UI, possibly prerenal azotemia Mrs. Jacqueline Galvan is a 68 y.o. female who presents with acute cholecystitis. 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 Her PEDRITO is likely due to prerenal azotemia and tacrolimus toxicity. Her tacrolimus level has improved to 9.1 after holding tacrolimus followed by restarting at 0.5 mg BID. Plan to continue tacrolimusat 0.5 mg BID with trough on 08/25, with a goal trough of 6-8. Continue prednisone 5 mg daily. Hold m ycophenolate. Recommendations - Continue tacrolimus 0.5 mg BID for now. We will follow up on trough level on 08/25 and adjust accordingly. Goal tacro level 6-8 - Hold cellcept - continue prednisone 5 mg daily - please obtain daily Mg, phosphorus, BMP - Nephrology will continue to follow The patient was seen and discussed with pre owned sales consultant Dr. Winter. [place] [phone] with any questions. Devon Akbar M.D. * Yee Sotelo, Pharm.D., R.Ph. - 08/25/2023 8:12 AM CDT Pharmacist Progress Note HPI: 68 y.o. female. 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 Continue DATA ENTRY ASSOCIATE sertraline CV: Intermittent afib, no AV kris blockade with intermittent bennie. Amio load after discussion with cards/HRS, targeting ~7g followed by 200 mg daily. 08/21 TTE mod-severe TVR, small circumferential pericardial effusion Pulm: HFNC -> NC s/p repeat thora for 900 mL with improvement in O2 needs, transudative initially now leaning more exudative, targeting diuresis Neph: BL Scr ~1.2-1.4. PEDRITO, SCr downtrending. Note discordant cystatin C. Tacrolimus 0.5 mg this AM. Does not appear to be significantly refeeding. Combo furosemide chlorothiazide diuresis ID: Afeb for past 24h and leukocytosis trending down. Plan 5D GNR coverage with zosyn-> meropenem post 08/26, stopdate in place. Vanco x1. All cx NGTD. - History MDR PsA in urine and e. Faecium (Vanc-S) in peritoneal cultures 05/2023. Current cx NGTD. GI/Nutrition/Endocrine: Last BM 08/24. Goal BG<180, avoiding hypoglycemia; starting tube feeds, Creon scheduled started. Perc ritika tube 08/21. Prophylaxis: JORGE BID (habitus), PPI (DATA ENTRY ASSOCIATE medication) ASSESSMENT / PLAN Outpatient medication history: Reviewed by a Pharmacist(or retail pharmacy merchandiser) on 08/21/23 CV: HRS consulted for tachy/bennie overnight. Hold AV kris blockage. Per general cards recs starting amiodarone load 400 mg TID x7D followed by 200 mg daily. Needs eye exam. Txp: ESRD with kidney transplant in 2006. Nephrology consulted to help manage tacrolimus, plan to resume when tacro is < 8 (9.1 yest, pending from this AM) Continue home prednisone, holding mycophenolate with infection - restart 08/27? GI: has chronic PEG, but takes medications by mouth at baseline. Starting tube feeds for likely starvation ketosis. AFib: with tachy/bennie. [id number], on discussion for anticoagulation tentative plan for reduced dose apixaban with current PEDRITO - patient is not sure she wants custodial anticoagulation, continuingDVT prophylaxis for now. Yee Sotelo Pharm.D., R.Ph. Pager [phone] * Citlaly Jefferson M.D. - 08/25/2023 7:38 AM CDT SUBJECTIVE I saw and examined Jacqueline Galvan in the medical ICU. I reviewed the chart and discussed the case with the critical care service. I agree with the history, physical examination, assessment, andplan as documented in the critical care note of today's date, with the following additions and exceptions as noted below. Briefly, Ms. Jacqueline Galvan is a 68 y.o. female with past medical history remarkable for ESRDs/p renal transplant x 2 on chronic immunosuppression, CAD s/p PCI and chronic malnutrition with mesenteric ischemia and PEG tube who was admitted with acute hypoxemic respiratory failure and sepsis secondary to cholecystitis. Hospital course has been complicated by tachy-bennie and AF and pleural effusions. Over the past 24 hours, she underwent thoracentesis with improvement in dyspnea and oxygenation. She has been weaned to 4L NC this am. She has not had further episodes of AF with RVR. She has been hemodynamically stable and was 1L negative. OBJECTIVE I examined the patient and reviewed the vital signs and relevant labs and imaging. ASSESSMENT / PLAN #1 Sepsis secondary to acute cholecystitis s/p perc cholecystostomy, resolved #2 Acute hypoxic respiratory failure secondary to volume overload and pleural effusion, improved #3 AF with RVR with intermittent junctional rhythm #4 Transudative pleural effusion left, exudative effusion on right #5 Prolonged hospitalization from 05/08/2023-07/16/2023 #6 ESRD secondary to glomerulonephritis s/p renal transplant x 2 (2006, 2016); CMV D-/R+, EBV D+/R+ #7 Chronic immunosuppression #8 CAD s/p PCI 2005 #9 Malnutrition s/p gastrostomy tube insertion #10 Mesenteric ischemia #11 AGMA secondary to starvation ketoacidosis, improved #12 Pericardial effusion without tamponade #13 Tiny right apical pneumothorax #14 Full Code Ms. Galvan is a 68 year old woman with complex medical history as above and recent prolonged hospitalization admitted with sepsis secondary to acute cholecystitis and hypoxic respiratory failure secondary to atelectasis and volume overload. We will continue antibiotics per ID and continue amiodarone. She has improved with thoracentesis with downtrending oxygen requirements and appears comfortable today. Suspect effusions related to combination of heart failure and hypoalbuminemia. She also had a pericardial effusion and follow up imaging was recommended so will repeat echo early next week. Plan for today is as follows: - Appreciate HRS, nephrology, ID consults - Continue meropenem, last day 08/26 - Eliquis for anticoagulation - Wean supplemental oxygen - Continue tube feeds - Repeat echo early next week - Continue amidoarone - Monitoring tacro troughs - Given improvement, would target even to net negative 500cc today Remainder of issues per CCS note from today. Critical care time 30 minutes. This is time spent at this critically ill patient's bedside activelyinvolved in patient care as well as the coordination of care and discussions with the patient's family. This does not include any procedural time which has been billed separately. * Torito Ma M.D. - 08/25/2023 6:36 AM CDT RST [facility] Medicine 1 PROGRESS NOTE SUBJECTIVE BRIEF SUMMARY Mrs. Jacqueline Galvan is a 68 y.o. female who presents with acute cholecystitis. 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 Initially transferred from outside hospital with clinical symptoms and imaging findings concerning for acute cholecystitis now s/pchole tube by IR (08/22/23). Admitted to MICU for acute hypoxic respiratory failure with radiographic findings of pericardial effusions and left pleural effusion (now s/p thoracentesis) INTERVAL EVENTS Night: - neph recommended 0.5 mg b.i.d. oral tacro at 8:00 a.m. and 8:00 p.m., 1st dose tonight they will repeat a tacro level on Saturday morning at 7:30 a.m., 30 minutes prior to her am dose - refeeding labs appropriate: K 4.6, Mag 2.7, Phos 3.0 - pleural fluid appeared exudative - net negative 1L, 100 IV lasix -> 100 IV Lasix + 500 Diuril Day Shift: - neph: hold tacro until levels < 8 - continue amiodarone 400mg TID 10days ,then 200mg daily - place Granados for monitor UOP. Lasix 100mg IV 10am, UOP 400cc in 3hrs - R thoracentesis w pleural studies - hold on Eliquis, patient wish to think further - repeat TTE in 1wk 08/28 pericardial effusion OBJECTIVE VITAL SIGNS Temperature: [36.6 ??C-37 ??C] 37 ??C Heart Rate: [53-69] 55 Resp Rate: [11-25] 15 Blood Pressure: (122-160)/(54-104) 126/54 SpO2: [87 %-100 %] 92 % Flow Rate (L/min): [4 L/min-12 L/min] 4 L/min Pulse Rate: [53-69] 55 PHYSICAL EXAM General: AOx3, ill appearing HEENT: no scleral icterus CVS: Irregular rate and rhythm, but no murmurs/rubs or gallop. No significant JVD appreciated Lungs: mild crackles on L base, but no increased work of breathing Abdomen: Soft, nondistended. Mild tenderness in RUQ on palpation. No rebound or guarding. Skin: Warm and well-perfused Radial pulses +2 bilaterally No leg edema/pitting edema bilaterally DIAGNOSTICS (diagnostics reviewed) ASSESSMENT / PLAN Mrs. Jacqueline Galvan is a 68 y.o. female who presents with acute cholecystitis. 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 Initially transferred from outside hospital with clinical symptoms and imaging findings concerning for acute cholecystitis now s/p ritika tube by IR (08/22/23). Admitted to MICU for acute hypoxic respiratory failure with radiographic findings of pericardial effusions and left pleural effusion (now s/p thoracentesis) PLAN BY SYSTEMS: NEURO: # major depression disorder - sertraline 25 mg daily - Monitor mental status - Pain control: Tylenol 500 mg 4 times daily - Sedation: None CARDIAC: # AFib Jan Vasc 4, not on anticoagulation # ?tachy-bennie, sick sinus, not on beta blockade # pericardial effusion without tamponade physiology # HFpEF ( EF 54%, 2/3 LV diastolic fx) # coronary artery disease status post PCI 2005 # HTN - MAP goal: >65 - Pressors: None - Central access: none - Telemetry - Last TTE (08/22/2023): EF 66%, Normal LV size, normal RV size and fx, RVSP 51, mod-severe TR, small pericardial effusion - strict in's and out's - daily weight - Vol status: Closer to euvolemia but will POCUS: 43.3 kg (at dry weight), improving O2 status 6 -> 4L NC, mild JVD, Lungs mild crackles bilaterally but improved from yesterday. No pitting edema LE, Net neg 1L. Caution fluid changes iso HFpEF hx and BMI 19 - HRS reccs: minimal burden Afib iso illness. Not good candidate permanent device given active infection and no indication PPM. If recurrent -> 2 week MoMe and outpatient CV followup. If Afib recurs -> oral amiodarone 400mg TID 10 days, then 400mg daily for 30 days, then 200mg daily for total3 months. - continue amiodarone 400mg TID 10 days, then 200mg daily - obtained TSH, LFT, CXR, EKG prior to amiodarone. Ophthalmology/prop maker followup outpatient. - discuss w patient on anticoagulation (Afib, CHADVASC 4). Given poor renal fx - > Eliquis 2.5mg BID (consider after thoracentesis). Patient not ready. - continue home aspirin 81 mg daily, Lipitor 80 mg daily - asymptomatic pericardial effusion-w/o other clinical sxm/findings of pericarditis -> monitor for now - repeat TTE on 08/29/23 for pericardial effusion RESP: # left pleural effusion, s/p Thoracentesis 08/21, likely transudative # acute hypoxemic respiratory failure 2/2 pleural effusions # worsening R pleural effusion Etiologies for pleural effusion (heart, lung, liver, renal) is most likely 2/2 either malnutrition/low albumin (oncotic pressure differences) or worsening renal failure (ESRD) - Oxygen goal: > 92% - strict in's and out's - daily weight - Currently NC 4L, wean as able - followup pleural studies: LDH 115 (not 2/3 ULN), Prot 2.5 (PF/SF < 0.5) neg gram, Gluc 88, 1190 TNC, serous, AF smear wnl. Cytology negative. Leuk/lymphoma negative. Fungal smear, neg. Elvia Cx NGTD. Broad range elvia negative. Pending: Fungal Cx. - Pleural studies: 0.5 (PP/SP), LDH 271 (mild cutoff 2/3 ULN), negative Gram, TNC 977 (not > 1000). Transudative > Exudative - Overall impression pleural studies: transudative iso malnutrition - CXR: improved R pleural effusion, small apical R pneumothorax -> monitor ID: # acute cholecystitis s/p Ritika tube IR (08/22/23) - meropenem 5 days (08/23/23 - 08/27/23, source control s/p ritika tube) - GB fluid cultures: NGTD (08/22/23) - Bcx: 08/19 NGTD : # ESRD w donor transplant (2006, 2016), iso GN # PEDRITO, likely pre-renal # Anion gap metab acidosis - resolved # hyperP 6.0 # hyperMg s/p 2x 2g Mg for Afib Causes AGMA: - meds: on Duoneb PRN, but no epinephrine, propofol, nitroprusside - no DKA, poisoning, lactate wnl (yesterday), methanol, ETOH, Iron. - +BHB >3. Lactate wnl. Prior U/A + ketones - likely 2/2 starvation ketoacidosis PEDRITO: U/A w/o casts. PVR wnl. Possible pre-renal. - daily BMP, Mag, Phos - Strict I&Os, daily weights - K >4, Mg >2 - Avoid nephrotoxic medications - Baseline creatinine: 1.2-1.4 - Cr 1.98 -> 1.81 - follow up Neph reccs: 0.5 mg BID, repeat Tacro Saturday 7:30 AM - hold 100mg torsemide daily - hold Cellcept iso infection - cont prednisone 5mg daily, tacrolimus (w trough) - goal 6-8 GI: # Meseteric ischemia w G tube # malnutrition, BMI 18, chronic wt loss # Acute cholecystitits s/p ritika tube (08/22/23) - age appropriate cancer screening outpatient: mammogram 2017 wnl. Colonoscopy 2015 2 tubular adenoma polyps. Hx smoking but prior CT not capture lung malignancy. Pleural studies: negative lymphoma/leukemia. Wt loss multifactorial 2/2 co-morbidities, ESRD, poor PO, mesenteric ischemia s/p G tube - Protonix 40mg daily - continue tube feeding w refeeding labs BID ENDO: # low glucose, not meet hypoglycemia criteria - A1c 5.3 (08/2023) - keep glucose 140-180 HEME: # chronic anemia iso CKD - trend CBC - Anticoagulation/DVT prophylaxis: cont heparin DVT ppx ACCESS: Lines, Drains, and Wounds Peripheral IV Duration Peripheral IV 20 G Right Forearm -- Peripheral IV 08/21/23 20 G Right Arm 3d 16h Drain Duration GI Tubes (Adults) Percutaneous endoscopic;Gastrostomy 14 Fr Left;Lower;Quadrant (abdomen) 3d 16h Biliary Tube Cholecystostomy 10 Fr. RUQ 2d 13h Indwelling Urinary Catheter Double-lumen;Non-latex;Temperature probe 16 Fr. 21h Wound Duration Wound 05/28/23 Pressure Injury Unstageable Coccyx 88d 18h Wound 06/30/23 Skin Tear Skin tear Type 2 (partial flap loss) Knee Anterior;Bilateral 55d 8h Wound 07/09/23 Hematoma Head (Comment) Right Forehead 47d 5h Wound 08/21/23 Knee Anterior;Right;Lower Multifactorial wound 3d 21h Wound 08/21/23 Skin Tear Skin tear Type 1 (No skin loss) Arm Left;Upper;Anterior 3d 13h DISPO: - Code status: Full Code - Surrogate decision maker: Noah - Family updated Plan discussed with T [facility] Medicine 1 Talent Acquisition Coordinator, Dr. Citlaly Jefferson M.D., who was present during desai portions of the evaluation today. Please page the [facility] 1 service pager at [phone] with any questions. * Citlaly Jefferson M.D. - 08/24/2023 12:40 PM CDT SUBJECTIVE I saw and examined Jacqueline Galvan in the medical ICU. I reviewed the chart and discussed the case with the critical care service. I agree with the history, physical examination, assessment, andplan as documented in the critical care note of today's date, with the following additions and exceptions as noted below. Briefly, Ms. Jacqueline Galvan is a 68 y.o. female with past medical history remarkable for ESRDs/p renal transplant x 2 on chronic immunosuppression, CAD s/p PCI and chronic malnutrition with mesenteric ischemia and PEG tube who was admitted with acute hypoxemic respiratory failure and sepsis secondary to cholecystitis. Hospital course has been complicated by tachy-bennie and AF. Over the past 24 hours, she had episodes of AF with RVR and was started on amiodarone. This am, shehas had escalating oxygen requirements with increasing size of right pleural effusion. She has beenhemodynamically stable. OBJECTIVE I examined the patient and reviewed the vital signs and relevant labs and imaging. ASSESSMENT / PLAN #1 Sepsis secondary to acute cholecystitis s/p perc cholecystostomy #2 Acute hypoxic respiratory failure secondary to volume overload and pleural effusion #3 AF with RVR with intermittent junctional rhythm #4 Transudative pleural effusion #5 Prolonged hospitalization from 05/08/2023-07/16/2023 #6 ESRD secondary to glomerulonephritis s/p renal transplant x 2 (2006, 2016); CMV D-/R+, EBV D+/R+ #7 Chronic immunosuppression #8 CAD s/p PCI 2005 #9 Malnutrition s/p gastrostomy tube insertion #10 Mesenteric ischemia #11 AGMA secondary to starvation ketoacidosis, improving #12 Pericardial effusion without tamponade #13 Full Code Ms. Galvan is a 68 year old woman with complex medical history as above and recent prolonged hospitalization admitted with sepsis secondary to acute cholecystitis and hypoxic respiratory failure secondary to atelectasis and volume overload. We will continue antibiotics per ID and continue amiodarone. Given escalating oxygen requirements, will diurese and perform right sided thoracentesis. She also had a pericardial effusion and follow up imaging was recommended so will repeat echo early next week. Plan for today is as follows: - Appreciate HRS, nephrology, ID consults - Continue meropenem - Start anticoagulation post-thoracentesis - Thoracentesis today with pleural fluid studies - Wean supplemental oxygen - Continue tube feeds - Repeat echo early next week - Continue amidoarone - Holding tacro and following troughs; holding cellcept in setting of infection - Diurese Remainder of issues per CCS note from today. Critical care time 30 minutes. This is time spent at this critically ill patient's bedside activelyinvolved in patient care as well as the coordination of care and discussions with the patient's family. This does not include any procedural time which has been billed separately. * Devon Akbar M.D. - 08/24/2023 12:26 PM CDT NEPHROLOGY ICU CONSULT SERVICE - PROGRESS NOTE Hospital Day 4 SUBJECTIVE Ms. Galvan is a 68 y.o. female with a past medical history significant for failed two renal transplants (most recent 2016) on chronic immunosuppression, chronic malnutrition with mesenteric ischemia and PEG tube who was admitted to the intensive care unit on 08/22/2023 for hypoxemic respiratory failure. She initially presented to outside hospital for fever and abdominal pain and was found to have acute cholecystitis. She underwent ERCP with a transcystic stent placement on 08/20. She was planned to have a percutaneous cholecystostomy tube in IR today, but she was found to be hypoxemic. She ultimately had 1.25 L of fluid resuscitation. She was initially on 4 L of nasal cannula oxygen had a s harp increase this morning requiring high-flow nasal cannula oxygen and transferred to the intensive care unit. She is now s/p thoracentesis and percutaneous cholecystostomy tube placement, and is pending further evaluation by the primary team. We were consulted for management of her immunosuppression. Events: -increasing oxygen requirement to 10 L nasal pendant. Chest x-ray with no substantial change. Persistent moderate right pleural effusion. -continuing to hold tacro -several episodes of incontinence, inaccurate input and output -started on amiodarone for her episodes of AFib with RVR OBJECTIVE Admission weight: 44.1 kg Weights for the past 120 hrs (Last 3 readings): Weight 08/24/23 0400 43.3 kg 08/22/23 0724 45.1 kg 08/20/23 2210 44.1 kg I/O 08/22 0000 08/22 2359 08/23 0000 08/23 2359 P.O. 200 100 Enteric (NG/OG) Tube 60 60 Feedings 100 175 Continuous Medications 46.8 Intermittent Medications 100 50 Total Intake(mL/kg) 506.8 (11.2) 385 (8.9) Urine (mL/kg/hr) 970 (0.9) 515 (1) Emesis or Enteric Tube 0 Drains 0 0 Total Output 970 515 Net -463.2 -130 Unmeasured Urine Occurrence 3 x VITAL SIGNS Temperature: [36.6 ??C-36.9 ??C] 36.6 ??C Heart Rate: [60-143] 63 Resp Rate: [11-25] 19 Blood Pressure: (109-171)/(54-102) 134/70 SpO2: [84 %-97 %] 97 % Flow Rate (L/min): [5 L/min-12 L/min] 10 L/min Pulse Rate: [60-105] 62 PHYSICAL EXAMINATION General appearance: alert and interactive, pale, appears chronically ill. HEENT: Ulcerated lesion on right forehead. Cardiac: irregularly irregular rhythm. No murmurs appreciated. Lungs: Intermittent cough. On supplemental oxygen via nasal pendant Extremities: No lower extremity edema. Mental statu: AOx3. Able to participate in conversation. DIAGNOSTICS Results from last 7 days Lab Units 08/24/23 0414 08/23/23 0309 HEMOGLOBIN g/dL 7.8* 8.3* WBC x10(9)/L 10.3* 14.9* PLATELETS AUTO x10(9)/L 349 342 Last 2 results Lab Units 08/24/23 0754 08/23/23 1838 08/22/23 1258 08/22/23 0949 08/22/23 0640 08/21/23 2118 08/21/23 1308 SODIUM P mmol/L -- -- -- 137 -- -- -- POC SODIUM mmol/L -- -- -- -- 135 -- -- SODIUM mmol/L 138 135 < > -- -- < > -- POTASSIUM mmol/L 3.8 4.3 < > -- -- < > -- POTASSIUM P mmol/L -- -- -- 3.9 -- -- 4.3 BICARBONATE PLASMA mmol/L -- -- -- 18* -- -- -- BICARBONATE S mmol/L 23 19* < > -- -- < > -- BUN P mg/dL -- -- -- 46* -- -- -- BUN mg/dL 47* 49* < > -- -- < > -- CREATININE mg/dL 1.98* 2.08* < > 2.05* -- < > -- CALCIUM P mg/dL -- -- -- 8.5* -- -- -- CALCIUM mg/dL 8.5* 8.2* < > -- -- < > -- POC IONIZED CALCIUM mg/dL -- -- -- -- 4.80 -- -- PHOSPHORUS INORGANIC mg/dL 3.4 4.5 < > -- -- < > -- MAGNESIUM mg/dL 3.0* 3.0* < > 2.0 -- < > -- < > = values in this interval not displayed. Tacrolimus level 16.4 on 08/22. Trough on 08/23 is pending ASSESSMENT / PLAN #ESRD #S/p Renal transplant (2006, 2016) #Unspecified glomerulonephritis #Hyperkalemia, resolved #PEDRITO, no evidence of ATN on UI, possibly prerenal azotemia Mrs. Jacqueline Galvan is a 68 y.o. female who presents with acute cholecystitis. 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 She is unfortunately again hospitalized in the intensive care unit. This is likely due to prerenal azotemia and tacrolimus toxicity. Her tacrolimus level this morning has not yet resulted. We should hold tacrolimus for now with trough pending. We will follow up the tacro trough this afternoon and make recommendations for the evening dose, with a goal trough of 6-8. Continue prednisone 5 mg daily. Hold mycophenolate. Recommendations - Hold tacrolimus AM dose - Follow up on AM tacrolimus trough and reassess evening tacro dose. Goal is a trough of 6-8. - Hold cellcept - continue prednisone 5 mg daily - please obtain daily Mg, phosphorus, BMP - nephrology will continue to follow The patient was seen and discussed with pre owned sales consultant Dr. Winter. [place] [phone] with any questions. Devon Akbar M.D. * Joe Winter M.D. 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 Assessment and plan -hold tacrolimus until levels are below 8 -kidney function is at baseline -Her goal tacrolimus level is 6-8 -continue to Hold CellCept -continue prednisone 5 mg daily -check tacrolimus level in a.m. again tomorrow -discussed with the family as well as the ICU team in detail * Srinivas Mariano P.Garret. - 08/24/2023 11:15 AM CDT Wound Therapy Inpatient Treatment Note SUBJECTIVE Patient's Name: Jacqueline Galvan Referring/Attending Provider: Cris Gracia M.D. Medical Diagnosis: Cholecystitis [K81.9] Reason for Referral: WD: Advanced wound cares - coccyx and R leg Onset Date: 08/20/23 Payor: [employer] [facility] / Plan: [employer] [place] / Product Type: PPO / Patient/Caregiver Goals: Wound healing Patient Comments: Patient resting in bed, family present at beginning of session but left to facilitate care, patient agreeable to receiving PMR wound care. OBJECTIVE Vitals monitored throughout session; within normal ranges. Treatment: Wound Location: coccyx, right knee Modality: Non-contact low frequency ultrasound x 6 minutes Debridement: Mechanical debridement performed with fluffed gauze. Dressings: Coccyx: plurogel, sacral mepiborder R leg: aquacel AG, mepifoam/lite, kerlix, tape Position: Patient was in L sidelying position for coccyx and supine for treatment of right knee. Team Communication: Patient's nurse was contacted and patient's status was discussed Assessment Comorbid Conditions: Other (Comment) Personal Factors: Age, Body habitus, History of falls, Needs assistive device, Nutrition/hydration abnormality Wound Care Discharge Needs: Ongoing wound care management by patient and/or caregiver., Wound assessment recommended in 2-4 weeks by trained provider. Clinical Impression: The patient presents with coccygeal and R inferior knee wounds. The coccygeal wound has a small volume of yellow, adherent slough and is moderately tender to palpation. The R leg wound has tendinous exposure and a moderate volume of yellow, adherent slough present. The patient will continue to benefit from advanced modality ultrasound mist therapy daily x5 (until 08/25) as outlined in the plan of care below. Rehab Potential: Ms. Galvan has good potential to achieve established wound therapy goals within the time frame outlined below. Functional Goals and Timeframes: Goal #1: Patient's coccygeal wound will demonstrate 10% improvement in area (2.7x1.1cm)) in order to demonstrate good progress toward healing. Goal #1 Date: 08/29/23 Goal #1 Status: Ongoing Goal #2: Patient's R leg wound will demonstrate 10% improvement in area (2.6x2.8cm) in order to demonstrate good progress toward healing. Goal #2 Date: 08/29/23 Goal #2 Status: Ongoing Progress: Progressing toward goals Plan Patient agrees with the plan of care and goals. Treatment Plan: Frequency: 5 times per week Days of Treatment: , Saturday, Saturday, Saturday, Saturday PT Wound Duration: Until goals are met or hospital discharge PT - Next Inpatient Wound Care Appointment: 08/25/23 Plan: Continue with current plan Wound PT Plan Comments: Patient to be provided with advance modality, selective debridement, and wound cares-- daily x5 (until 08/25) -- continue to reassess pending wound response and hospital course. Treatment interventions may include: Therapeutic modalities as needed, Debridement, Wound dressing assessment, Wound cares, Offloading, Self-care/home management Time Spent with Patient Modalities Ultrasound - low freq, non-thermal (min): 22 min Time Tracking Total Timed Units (min): 30 min Total Treatment Time (min): 40 min Srinivas Mariano P.T. * Yee Sotelo, Pharm.D., R.Ph. - 08/24/2023 8:18 AM CDT Pharmacist Progress Note HPI: 68 y.o. female. 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 Continue DATA ENTRY ASSOCIATE sertraline CV: Intermittent afib with tachy/bennie, no AV kris blockade with intermittent bennie. 08/21 TTE mod-severe TVR, small circumferential pericardial effusion Pulm: HFNC -> NC s/p thora, transudative, targeting diuresis Neph: BL Scr ~1.2-1.4. (Was down to 1 as recent as Jun 2023) UOP per intermittent charting. Worsened AGMA. Note discordant cystatin C. Tacrolimus continued to rise to 16.4 with dose reduction. ID: Afeb for past 24h and leukocytosis trending down. Meropenem and intermittent vancomycin (discontinued); hx MDR PsA in urine and e. Faecium (Vanc-S) in peritoneal cultures 05/2023. Current cx NGTD. GI/Nutrition/Endocrine: Last BM 08/21, BR-. Goal BG<180, avoiding hypoglycemia; starting tube feeds, Creon scheduled started. Concern for risk of refeeding, lytes stable overnight Prophylaxis: JORGE BID (habitus), PPI (DATA ENTRY ASSOCIATE medication) ASSESSMENT / PLAN Outpatient medication history: Reviewed by a Pharmacist(or retail pharmacy merchandiser) on 08/21/23 Procedures(this encounter): Acute hypoxic respiratory failure: thought secondary to fluid overload/effusion. Improved to NC. Potential for repeat thora. CV: HRS consulted for tachy/bennie overnight. Hold AV kris blockage. Per general cards recs starting amiodarone load 400 mg TID x10 days -> 400 mg daily x30 days -> 200 mg daily x90 days. HRS equivocal. Could consider abbreviated load of 7D followed by 200 mg daily if amio to continue x4 months. If amio to continue, needs baseline testing. Cholecystitis: Perc ritika tube 08/21. Continues on meropenem. ID consulted off recommending end dateof 08/26. Txp: ESRD with kidney transplant in 2006. Nephrology consulted to help manage tacrolimus. Level pending from this AM. Continue home prednisone, holding mycophenolate with infection GI: has chronic PEG, but takes medications by mouth at baseline. Starting tube feeds for likely starvation ketosis. AFib: with tachy/bennie. [id number] 3, on discussion for anticoagulation tentative plan for reduced dose apixaban with current PEDRITO - this will need to be increased back to normal dose as PEDRITO resolves as low body weight alone is not dose reduction indication. Yee Sotelo, PharmMarlysDMarlys, R.Ph. Pager [phone] * Torito Ma M.D. - 08/24/2023 6:18 AM CDT RST [facility] Medicine 1 PROGRESS NOTE SUBJECTIVE BRIEF SUMMARY Mrs. Jacqueline Galvan is a 68 y.o. female who presents with acute cholecystitis. 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 Initially transferred from outside hospital with clinical symptoms and imaging findings concerning for acute cholecystitis now s/pchole tube by IR (08/22/23). Admitted to MICU for acute hypoxic respiratory failure with radiographic findings of pericardial effusions and left pleural effusion (now s/p thoracentesis) INTERVAL EVENTS Night: - 100mg IV Lasix 6pm, net negative -130cc. Several episodes incontinence that was not measured. Notaccurate net fluid loss - tropes elevated 85 -> 85 nondynamic - refeed labs Mg 3.0. K 4.3, Phos 4.5. no repletion needed. Noting downtrend on these elytes. - 8-> 10 L on pendant in the morning around 5 am Day Shift: - continue amiodarone - place Granados for monitor UOP. Lasix 100mg IV 10am, monitor UOP next 3 hrs - plan for thoracentesis, after thora -> start Eliquis 2.5mg BID -repeat TTE in 1wk 08/28 pericardial effusion OBJECTIVE VITAL SIGNS Temperature: [36.6 ??C-36.9 ??C] 36.6 ??C Heart Rate: [60-143] 63 Resp Rate: [11-25] 19 Blood Pressure: (109-171)/(54-102) 134/70 SpO2: [84 %-97 %] 97 % Flow Rate (L/min): [5 L/min-12 L/min] 10 L/min Weight: [43.3 kg] 43.3 kg BMI (Calculated): [18 kg/m??] 18 kg/m?? Pulse Rate: [60-105] 62 PHYSICAL EXAM General: AOx3, ill appearing HEENT: no scleral icterus CVS: Irregular rate and rhythm, but no murmurs/rubs or gallop. No significant JVD appreciated Lungs: mild crackles on L base, but no increased work of breathing Abdomen: Soft, nondistended. Mild tenderness in RUQ on palpation. No rebound or guarding. Skin: Warm and well-perfused Radial pulses +2 bilaterally No leg edema/pitting edema bilaterally DIAGNOSTICS (diagnostics reviewed) ASSESSMENT / PLAN Mrs. Jacqueline Galvan is a 68 y.o. female who presents with acute cholecystitis. 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 Initially transferred from outside hospital with clinical symptoms and imaging findings concerning for acute cholecystitis now s/p ritika tube by IR (08/22/23). Admitted to MICU for acute hypoxic respiratory failure with radiographic findings of pericardial effusions and left pleural effusion (now s/p thoracentesis) PLAN BY SYSTEMS: NEURO: # major depression disorder - sertraline 25 mg daily - Monitor mental status - Pain control: Tylenol 500 mg 4 times daily - Sedation: None CARDIAC: # AFib Jan Vasc 4, not on anticoagulation # ?tachy-bennie, sick sinus, not on beta blockade # pericardial effusion without tamponade physiology # HFpEF ( EF 54%, 2/3 LV diastolic fx) # coronary artery disease status post PCI 2005 # HTN - MAP goal: >65 - Pressors: None - Central access: none - Telemetry - Last TTE (08/22/2023): EF 66%, Normal LV size, normal RV size and fx, RVSP 51, mod-severe TR, small pericardial effusion - strict in's and out's - daily weight - Vol status: Hypervolemia: 43.3 kg (at dry weight), worsening O2 status 6-> 10L NC, +JVD, Crackles lung R >L. no pitting edema LE,. In/Out: 530/720/-200cc. Caution fluid changes iso HFpEF hx and BMI 19 - HRS reccs: minimal burden Afib iso illness. Not good candidate permanent device given active infection and no indication PPM. If recurrent -> 2 week MoMe and outpatient CV followup. If Afib recurs -> oral amiodarone 400mg TID 10 days, then 400mg daily for 30 days, then 200mg daily for total3 months. - continue amiodarone 400mg TID 10 days, then 200mg daily - obtained TSH, LFT, CXR, EKG prior to amiodarone. Ophthalmology/prop maker followup outpatient. - discuss w patient on anticoagulation (Afib, CHADVASC 4). Given poor renal fx - > Eliquis 2.5mg BID (consider after thoracentesis) - continue home aspirin 81 mg daily, Lipitor 80 mg daily - asymptomatic pericardial effusion-w/o other clinical sxm/findings of pericarditis -> monitor for now - repeat TTE on 08/29/23 for pericardial effusion RESP: # left pleural effusion, s/p Thoracentesis 08/21, likely transudative # acute hypoxemic respiratory failure 2/2 pleural effusions # worsening R pleural effusion Etiologies for pleural effusion (heart, lung, liver, renal) is most likely 2/2 either malnutrition/low albumin (oncotic pressure differences) or worsening renal failure (ESRD) - Oxygen goal: > 92% - strict in's and out's - daily weight - Currently NC 10L, wean as able - followup pleural studies: LDH 115 (not 2/3 ULN), Prot 2.5 (PF/SF < 0.5) neg gram, Gluc 88, 1190 TNC, serous, AF smear wnl. Cytology negative. Leuk/lymphoma negative. Fungal smear, neg. Elvia Cx NGTD. Broad range elvia negative. Pending: Fungal Cx. - Overall impression pleural studies: transudative iso malnutrition - Bedside POCUS: (2.07cm IVC, noncollapsable, >10cm R pleural fluid pocket). - Give Lasix 100mg IV -> close monitor UOP. Add Granados for closer UOP monitoring. - repeat thoracentesis with pleural studies ID: # acute cholecystitis s/p Ritika tube IR (08/22/23) - meropenem 5 days (08/23/23 - 08/27/23, source control s/p ritika tube) - GB fluid cultures: NGTD (08/22/23) - Bcx: 08/19 NGTD : # ESRD w donor transplant (2006, 2016), iso GN # PEDRITO, likely pre-renal # Anion gap metab acidosis # hyperP 6.0 # hyperMg s/p 2x 2g Mg for Afib Causes AGMA: - meds: on Duoneb PRN, but no epinephrine, propofol, nitroprusside - no DKA, poisoning, lactate wnl (yesterday), methanol, ETOH, Iron. - +BHB >3. Lactate wnl. Prior U/A + ketones - likely 2/2 starvation ketoacidosis PEDRITO: U/A w/o casts. PVR wnl. Possible pre-renal. - daily BMP, Mag, Phos - Strict I&Os, daily weights - K >4, Mg >2 - Avoid nephrotoxic medications - Baseline creatinine: 1.2-1.4 - Cr 2.2 -> 2.08 stable - BUN 52 -> 49 - HCO3 13 -> 19 - anion gap 23 -> 15 improving - Neph reccs: goal trough 6-8. Tacro 08/23/23 uptrending 12.5 -> 16.4, Held Tacrolimus - hold 100mg torsemide daily - hold Cellcept iso infection - cont prednisone 5mg daily, tacrolimus (w trough) - goal 6-8 GI: # Meseteric ischemia w G tube # malnutrition, BMI 18, chronic wt loss # Acute cholecystitits s/p ritika tube (08/22/23) - age appropriate cancer screening outpatient: mammogram 2017 wnl. Colonoscopy 2015 2 tubular adenoma polyps. Hx smoking but prior CT not capture lung malignancy. Pleural studies: negative lymphoma/leukemia. Wt loss multifactorial 2/2 co-morbidities, ESRD, poor PO, mesenteric ischemia s/p G tube - Protonix 40mg daily - continue tube feeding w refeeding labs BID ENDO: # low glucose, not meet hypoglycemia criteria - A1c 5.3 (08/2023) - keep glucose 140-180 HEME: # chronic anemia iso CKD - Hb stable 8.3 -> 7.8 - WBC 15 -> 10 - Anticoagulation/DVT prophylaxis: cont heparin DVT ppx ACCESS: Lines, Drains, and Wounds Peripheral IV Duration Peripheral IV 20 G Right Forearm -- Peripheral IV 08/21/23 20 G Right Arm 2d 21h Drain Duration Indwelling Urinary Catheter Double-lumen;Non-latex;Temperature probe 16 Fr. 2h GI Tubes (Adults) Percutaneous endoscopic;Gastrostomy 14 Fr Left;Lower;Quadrant (abdomen) 2d 21h Biliary Tube Cholecystostomy 10 Fr. RUQ 1d 18h Wound Duration Wound 05/28/23 Pressure Injury Unstageable Coccyx 87d 23h Wound 06/30/23 Skin Tear Skin tear Type 2 (partial flap loss) Knee Anterior;Bilateral 54d 13h Wound 07/09/23 Hematoma Head (Comment) Right Forehead 46d 10h Wound 08/21/23 Knee Anterior;Right;Lower Multifactorial wound 3d 2h Wound 08/21/23 Skin Tear Skin tear Type 1 (No skin loss) Arm Left;Upper;Anterior 2d 18h DISPO: - Code status: Full Code - Surrogate decision maker: Noah - Family updated Plan discussed with T [facility] Medicine 1 Talent Acquisition Coordinator, Dr. Citlaly Jefferson M.D., who was present during desai portions of the evaluation today. Please page the [facility] 1 service pager at [phone] with any questions. * Joe Winter M.D. 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 Assessment and plan -tacrolimus 1.5 mg q.12 hours -kidney function is at baseline maybe slightly higher -h goal tacrolimus level is 6-8 -Hold CellCept -continue prednisone 5 mg daily -check tacrolimus level in a.m. -discussed with the family as well as the ICU team in detail * Citlaly Jefferson M.D. - 08/23/2023 1:16 PM CDT SUBJECTIVE I saw and examined Jacqueline Galvan in the medical ICU. I reviewed the chart and discussed the case with the critical care service. I agree with the history, physical examination, assessment, andplan as documented in the critical care note of today's date, with the following additions and exceptions as noted below. Briefly, Ms. Jacqueline Galvan is a 68 y.o. female with past medical history remarkable for ESRDs/p renal transplant x 2 on chronic immunosuppression, CAD s/p PCI and chronic malnutrition with mesenteric ischemia and PEG tube who was admitted with acute hypoxemic respiratory failure and sepsis secondary to cholecystitis. Hospital course has been complicated by tachy-bennie. Overnight, she had episodes of AF with RVR with intermittent junctional rhythms. She had thoracentesis yesterday notable for transudate. She has been hemodynamically stable. She has had overall improving oxygenation and is now on NC. OBJECTIVE I examined the patient and reviewed the vital signs and relevant labs and imaging. ASSESSMENT / PLAN #1 Sepsis secondary to acute cholecystitis s/p per cholecystostomy #2 Acute hypoxic respiratory failure secondary to volume overload #3 AF with RVR with intermittent junctional rhythm #4 Transudative pleural effusion #5 Prolonged hospitalization from 05/08/2023-07/16/2023 #6 ESRD secondary to glomerulonephritis s/p renal transplant x 2 (2006, 2016); CMV D-/R+, EBV D+/R+ #7 Chronic immunosuppression #8 CAD s/p PCI 2005 #9 Malnutrition s/p gastrostomy tube insertion #10 Mesenteric ischemia #11 AGMA #12 Full Code Ms. Galvan is a 68 year old woman with complex medical history as above and recent prolonged hospitalization admitted with sepsis secondary to acute cholecystitis and hypoxic respiratory failure secondary to atelectasis and volume overload, improving. We will continue antibiotics per ID and consider de- escalation. [facility] has also been consulted for assistance with management of arrhythmias. Plan for today is as follows: - Appreciate HRS, nephrology, ID consult - Continue meropenem for now per ID - Resume anticoagulation if no further procedures - Check ketones, lactate, beta hydroxybutyrate - Wean supplemental oxygen - Tube feeds Remainder of issues per [facility] note from today. Critical care time 30 minutes. This is time spent at this critically ill patient's bedside activelyinvolved in patient care as well as the coordination of care and discussions with the patient's family. This does not include any procedural time which has been billed separately. * Carla Granados RDN, LD - 08/23/2023 11:35 AM CDT Nutrition Care Plan Follow Up Clinical Nutrition continues to follow patient for tube feeding recommendations/management ASSESSMENT Completed visit with patient and family today as part of face to face care. Current Nutrition (since admission): Patient did not receive tube feeds yesterday after procedures as she went into Afib and is now being assessed by cardiology for pacemaker. Family is understandably concerned that she has not received nutrition for the past 4 days. If patient does not get pacemaker placed today, then team plans to start enteral nutrition. Patientdoes not require any pressors at present. Current nutrition orders: Current Diet No oral nutrition, no tube feeding starting at 08/21 0000 Tube information: GI Tubes (Adults) Percutaneous endoscopic;Gastrostomy 14 Fr Left;Lower;Quadrant (abdomen) (Active) Placement Date/Time: 08/21/23 0219 GI Tube Type: Percutaneous endoscopic;Gastrostomy Low Profile? :No Balloon, Bumper, or Other?: Balloon Balloon Volume: 5 mL GI Tube Size: 14 Fr Length (cm): 3.5 cmTube Location: Left;Lower;Quadrant (abdomen... Tube site visualized today and showed no signs of redness or Pertinent Labs: Latest Reference Range & Units 08/22/23 09:49 08/22/23 12:58 08/22/23 19:57 08/23/23 03:09 Sodium, S 135 - 145 mmol/L 136 Sodium, P 135 - 145 mmol/L 137 Potassium, S 3.6 - 5.2 mmol/L 4.2 4.6 4.7 Potassium, P 3.6 - 5.2 mmol/L 3.9 Chloride, S 98 - 107 mmol/L 100 Chloride, P 98 - 107 mmol/L 102 Bicarbonate, S 22 - 29 mmol/L 13 (L) Bicarbonate, P 22 - 29 mmol/L 18 (L) Anion Gap 7 - 15 23 (H) Anion Gap, P 7 - 15 17 (H) BUN (Blood Urea Nitrogen), S 6 - 21 mg/dL 52 (H) BUN (Blood Urea Nitrogen), P 6 - 21 mg/dL 46 (H) Creatinine 0.59 - 1.04 mg/dL 2.05 (H) 2.20 (H) Estimated GFR (eGFR) >=60 mL/min/BSA 26 (L) 24 (L) Calcium, Total, S 8.8 - 10.2 mg/dL 8.4 (L) Calcium, Total, P 8.8 - 10.2 mg/dL 8.5 (L) Glucose 70 - 100 mg/dL 78 Glucose, S 70 - 140 mg/dL 64 (L) Glucose, P 70 - 140 mg/dL 83 Magnesium 1.7 - 2.3 mg/dL 1.7 - 2.3 mg/dL 2.0 3.2 (H) 3.2 (H) Phosphorus (Inorganic), S 2.5 - 4.5 mg/dL 6.0 (H) (L): Data is abnormally low (H): Data is abnormally high Latest Reference Range & Units 08/23/23 07:51 Lactate 0.5 - 2.2 mmol/L 0.5 GI Function: Last BM Date: 08/22/23, Passing Flatus: Yes Weight since admission: Height: 155 cm Admission Weight: 44.1 kg (08/20/2023) Current Weight: 45.1 kg BMI (Calculated): 18.8 kg/m?? Weight change since admission: 1 kg Net IO Since Admission: -958.19 mL [08/23/23 1135] Estimated Needs: Total Calorie Needs: 0555-3278 calories/day Method to Estimate Energy Needs: kcal/kg (25-30 kcal/kg) Weight Used for Equation Calculations: 45.1 kg Total Protein Needs: 54 - 68 grams/day Method to Estimate Protein Needs (g/kg): 1.2 - 1.5 gm/kg Weight Used to Calculate Protein Needs (Kg): 45.1 kg Malnutrition Criteria: Severe Malnutrition The patient does meet the ASPEN Criteria of malnutrition based on: Energy Intake: No Change Interpretation of Weight Loss: No Change Body Fat: Severe Loss Muscle Mass: Severe Loss Fluid Accumulation: Absent Reduced Citrus Picker Strength: Not applicable This is in the context of Chronic Illness. ASPEN Criteria Malnutrition Status: Severe Malnutrition Nutrition Diagnosis: Altered GI function related to history of mesenteric insufficiency and pancreatic atrophy as evidenced by need for enteral support with pancreatic enzymes. Nutrition Diagnosis Reassessment: Ongoing PLAN Nutrition Intervention: Enteral nutrition, Vitamin and mineral supplements Nutrition parameter to monitor: Meals/Supplement Intake, Weight Status, Enteral, Skin Integrity, Wound Healing, Fluid Balance, Pertinent Labs, Chewing/Swallowing, Nausea/Vomiting/Diarrhea ASPEN Criteria Malnutrition Status: Malnutrition criteria not met Recommendations: When safe to start tube feeds, recommend the following while in the ICU: Order the following consult: Provider to order tube feeding, dietitian to manage Start enteral nutrition: Peptamen 1.5 at 10 mL/hr and advance by 10 mL/hr every 12 hrs to goal rateof 35 mL/hour for 24 hours/day. Water flushes: 30 mL Q6H for tube patency; additional flushes per ICU team Enteral nutrition as recommended will provide 1260 total calories and 57 grams of protein and less than 100% of the Reference Daily Intake of vitamins and minerals per day (noted to be on therapeuticmultivitamin) Due to refeeding risk: Provide 100 mg IV thiamine for 5 days due to refeeding risk Closely monitor serum potassium, phosphorus and magnesium Q12H for first 72 hrs of feeds and replace accordingly via IV route. If showing signs of refeeding, hold tube feeds at current rate, replace electrolytes, and restart advancement once electrolytes are WNL Recommend 1 tablet of Creon (36,000 units lipase) Q4H if able to take medications by mouth or Viokace 20,000 units lipase Q4H crushed and given through PEG tube. If using Viokace, patient will need to be on a PPI while receiving this as Viokace does not have enteric coating. Consider checking the following labs due to pressure injury/wound and history of deficiencies: Zinc, Vitamin A, Vitamin C, Copper, Selenium Albumin and ceruloplasmin to assist with interpretation. If lab results reveal deficiency, dietitian will follow up with replacement recommendations. Clinical Nutrition will continue to follow. For questions about patient's nutritional care please contact pager [phone] on weekdays 07:30-16:00 or [phone] on weekends/holidays. * Claribel Chauhan M.D. - 08/23/2023 11:15 AM CDT Infectious Diseases Transplant Consulting Service SUBJECTIVE Awake alert and following command. The pain in the abdomen has improved. Continue to have shortnessof breath. OBJECTIVE PHYSICAL EXAMINATION VS: I have reviewed the current vital sign data as applicable General: Not in acute distress Chest: Breathing on nasal cannula, crackles both lung Abdomen: Percutaneous cholecystostomy tube, no pain on palpation Extremities: No lower extremity edema Neuro: Alert, oriented x 3 DIAGNOSTICS I have reviewed diagnostics studies including lab, microbiological data and imaging Estimated Creatinine Clearance: 17.2 mL/min (A) (by C-G formula based on SCr of 2.2 mg/dL (H)). 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 with possible episode of UTI in June 2023 Sigmoid diverticulitis intramural abscesses 05/2023 and gastric perforation s/p exploratory laparotomy on 05/19/2023 - intra-abdominal culture grew E faecium (non-VRE) complicated by ischemic midline wound requiring debridement on 05/29/2023 PEDRITO requiring CRRT in 05/2023 Advanced colonic diverticulosis History of esophageal candidiasis 05/2023 History of low grade CMV viremia History of AAA 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 She underwent percutaneous cholecystostomy tube on 08/22/2023. Multiple issues keeping her in the ICU includes hypoxic respiratory failure due to pulmonary edema pleural effusions and pericardial effusion and bradycardia. RECOMMENDATIONS: Continue meropenem 500 mg IV q 12 hours, plan for 4 more days, last date 08/27/2023 Giving her current clinical status/source control and recent vancomycin trough level, we do not plan to repeat a dose of vancomycin Please contact our team with any new microbiology data INFECTIOUS DISEASES THERAPY RECOMMENDATIONS Antimicrobial plan: Antimicrobial therapy: Meropenem 500 mg IV q 12 hours - last date on 08/27/2023 (total of 7 days course and 5 days from percutaneous cholecystostomy tube Lab monitoring while on antimicrobial therapy: No Should patient be enrolled in OPAT/COPAT program: No Infectious Diseases follow-up: Follow-up: No outpatient follow-up indicated. Central catheter management at end of treatment: Not applicable We will sign off. Please page the Transplant-ID service pager at [phone] with questions. Thank you for the consultation. Claribel Chan M.D. Infectious Diseases Pager: [phone] * Margaret Mccall P.A.-C., M.S. - 08/23/2023 9:12 AM CDT SUBJECTIVE Ms. Jacqueline Galvan is post procedure day 1 after percutaneous cholecystostomy tube placement performed 08/22/2023 in vascular IR with Dr. Torres. Met with patient bedside. She appears quite fatigued, does not definitively answer questions. She does shake her head no when asked if she is having pain at the tube site. Per chart review she has been experiencing numerous arrhythmias and there is concern for sick sinus syndrome. OBJECTIVE Current Weight: 45.1 kg VITAL SIGNS Height: 155 cm, Weight: 45.1 kg, BMI (Calculated): 18.8 kg/m??, Blood Pressure: 135/68, Heart Rate:75, Pulse Rate: 75, Resp Rate: 16, Temperature: 36.8 ??C, SpO2: 92 % PHYSICAL EXAM General: Sleeping in bed, briefly opens eyes to voice. Abdomen: Percutaneous cholecystostomy tube in place right upper quadrant draining dark bile. Surrounding abdomen is soft. DIAGNOSTICS Lab Results Component Value Date/Time HGB 8.3 (L) 08/23/2023 03:09 AM HGB 10.0 (L) 05/30/2023 12:14 PM HCT 26.9 (L) 08/23/2023 03:09 AM HCTPOC 23.0 (L) 08/22/2023 06:40 AM PLT 342 08/23/2023 03:09 AM LEUKOCYTES Negative 02/05/2014 11:06 PM INR 1.6 08/20/2023 08:57 PM APTT 28 07/03/2023 09:52 AM , Lab Results Component Value Date/Time ALBUMIN 3.3 (L) 08/23/2023 03:09 AM ALBUMIN 3.8 11/19/2022 09:58 AM ALKPHOS 147 (H) 08/20/2023 08:57 PM ALKPHOS 70 11/19/2022 09:58 AM ALT 31 08/20/2023 08:57 PM AST 22 08/20/2023 08:57 PM AST 14 11/19/2022 09:58 AM AST 14 07/02/2017 07:53 AM BILIDIR 0.3 08/20/2023 08:57 PM BILIDIR 0.3 02/05/2014 09:11 PM BILITOT 0.5 08/20/2023 08:57 PM BILITOT 0.7 05/28/2023 08:40 PM BUN 52 (H) 08/23/2023 03:09 AM BUN 46 (H) 08/22/2023 09:49 AM CREATININE 2.20 (H) 08/23/2023 03:09 AM CREATININE 2.05 (H) 08/22/2023 09:49 AM CREATJAFFE 1.2 (H) 06/23/2016 05:10 AM EGFRNONBLKAA 36 (L) 01/05/2021 08:12 AM EGFRNONBLKAA 46 (L) 07/02/2017 07:53 AM EGFR 24 (L) 08/23/2023 03:09 AM EGFR 26 (L) 08/22/2023 09:49 AM CRP 5.6 01/05/2021 08:11 AM TROPONINT 72 (H) 08/22/2023 09:49 AM ASSESSMENT / PLAN 68-year-old female with significant history of acute cholecystitis who has not felt to be a good cholecystectomy candidate at this time. She was referred to IR cholecystostomy tube. She underwent percutaneous cholecystostomy tube on 08/22/2023 in vascular IR with Dr. Torres. This morning she appears quite fatigued but denies pain at the tube exit site. The gallbladder to appears to be functioning appropriately without issue. Plan: Routine percutaneous cholecystostomy tube restrictions and cares. See below. DME orders for supplies will be sent to the [facility]. IR team will sign off for now. Thank you for the opportunity to participate in this patient's care. Please feel free to page [phone] or [phone] after 5 PM and on weekends with additional questions. Margaret Mccall P.A.-C., M.S. GUIDELINES FOR PERCUTANEOUS CHOLECYSTOSTOMY TUBE MANAGEMENT Drainage: Recommended drainage is to a gravity bag. Do NOT recommend bulb suction or wall suction as this can cause translocation of duodenal contents/bacteria into the drain. Drain Maintenance: Do not recommend routine flushing. If there are blood clots after placement or output decreases, may flush with 5- 10cc of sterile saline to maintain patency; however, do not aspirate as this can cause translocation of duodenal contents/bacteria into the drain. Routine cholecystostomy tube exchange in 10-12 weeks. Showers or modified sponge baths only, do not submerge in water. If significant decrease in output and/or increased drainage around the skin site are noted, please contact primary service to consider drain check. Clear extension tubing and bag are disposable and are recommended to be replaced every week. A prescription for these supplies and dressings can be provided by VIR or primary service. Bleeding: Normal biliary output is thin bile. It can be normal for there to be a small amount of blood in thedrainage bag for 24 hours after the procedure. If there is NEW or increasing blood mixed with bile, please contact Vascular and Interventional Radiology [facility] ([phone]). Anticoagulation: A percutaneous cholecystostomy tube is considered a high bleeding risk procedure by Society of Interventional Radiology (SIR) guidelines. Post-procedure, recommend holding heparin for 6 hours, enoxaparin (Lovenox) for 12 hours, and all other therapeutic anticoagulation for at least 24 hours, and re-initiating only if clinically indicated and there is thin bile draining. * Louis Calderon P.T., D.P.T. - 08/23/2023 9:00 AM CDT Wound Therapy Inpatient Treatment Note SUBJECTIVE Patient's Name: Jacqueline Galvan Referring/Attending Provider: Cris Gracia M.D. Medical Diagnosis: Cholecystitis [K81.9] Reason for Referral: WD: Advanced wound cares - coccyx and R leg Onset Date: 08/20/23 Payor: [employer] / Plan: [facility] [place] / Product Type: PPO / Patient/Caregiver Goals: Wound healing OBJECTIVE Treatment: Wound Location: coccyx, R inferior knee Modality: Non-contact low frequency ultrasound x 6 minutes Debridement: Mechanical debridement performed with fluffed gauze. Dressings: Coccyx: plurogel, sacral mepiborder R leg: aquacel AG, mepifoam/lite, kerlix, tape Position: Patient was in R sidelying position for treatment session. Education provided to patient and caregiver regarding purpose of advanced modality ultrasound mist therapy and plan of care. Communication and collaboration occurred with patient's nurse; all other wounds are being managed by nursing at this time. Team Communication: Patient's nurse was contacted and patient's status was discussed Assessment Comorbid Conditions: Other (Comment) Personal Factors: Age, Body habitus, History of falls, Needs assistive device, Nutrition/hydration abnormality Wound Care Discharge Needs: Ongoing wound care management by patient and/or caregiver., Wound assessment recommended in 2-4 weeks by trained provider. Clinical Impression: The patient presents with coccygeal and R inferior knee wounds (the coccygeal wound is well known to us). The coccygeal wound has a small volume of yellow, adherent slough and is moderately tender topalpation (some discomfort with removal of sacral mepiborder). The R leg wound is quite deep with tendinous exposure. There is also a moderate volume of yellow, adherent slough present. The patient will continue to benefit from advanced modality ultrasound mist therapy daily x5 (until 08/25) as outlined in the plan of care below. Rehab Potential: Ms. Galvan has good potential to achieve established wound therapy goals within the time frame outlined below. Functional Goals and Timeframes: Goal #1: Patient's coccygeal wound will demonstrate 10% improvement in area (2.7x1.1cm)) in order to demonstrate good progress toward healing. Goal #1 Date: 08/29/23 Goal #1 Status: Ongoing Goal #2: Patient's R leg wound will demonstrate 10% improvement in area (2.6x2.8cm) in order to demonstrate good progress toward healing. Goal #2 Date: 08/29/23 Goal #2 Status: Ongoing Progress: Progressing toward goals Plan Patient agrees with the plan of care and goals. Treatment Plan: Frequency: 5 times per week Days of Treatment: , Saturday, Saturday, Saturday, Saturday PT Wound Duration: Until goals are met or hospital discharge PT - Next Inpatient Wound Care Appointment: 08/24/23 Plan: Continue with current plan Wound PT Plan Comments: Patient to be provided with advance modality, selective debridement, and wound cares-- daily x5 (until 08/25) -- continue to reassess pending wound response and hospital course. Treatment interventions may include: Therapeutic modalities as needed, Debridement, Wound dressing assessment, Wound cares, Offloading, Self-care/home management Time Spent with Patient Modalities Ultrasound - low freq, non-thermal (min): 20 min Time Tracking Total Timed Units (min): 20 min Total Treatment Time (min): 20 min Louis Calderon P.T., D.P.T. * Srinivas Callaway, Pharm.D., R.Ph. - 08/23/2023 8:13 AM CDT Pharmacist Progress Note HPI: 68 y.o. female. 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 Continue DATA ENTRY ASSOCIATE sertraline CV: Intermittent afib with tachy/bennie, no AV kris blockade with intermittent bennie. 08/21 TTE mod-severe TVR, small circumferential pericardial effusion Pulm: HFNC -> NC s/p thora, transudative Neph: BL Scr ~1.2-1.4. (Was down to 1 as recent as Jun 2023) UOP per intermittent charting. Worsened AGMA. Note discordant cystatin C. ID: Afeb for past 24h and leukocytosis trending down. Meropenem and intermittent vancomycin (discontinued); hx MDR PsA in urine and e. Faecium (Vanc-S) in peritoneal cultures 05/2023 GI/Nutrition/Endocrine: Last BM 08/21, BR-. Goal BG<180, avoiding hypoglycemia; starting tube feeds, Creon scheduled started. Prophylaxis: JORGE BID (habitus), PPI (DATA ENTRY ASSOCIATE medication) ASSESSMENT / PLAN Outpatient medication history: Reviewed by a Pharmacist(or retail pharmacy merchandiser) on 08/21/23 Procedures(this encounter): Acute hypoxic respiratory failure: thought secondary to fluid overload/effusion. Improved to NC. CV: HRS consulted for tachy/bennie overnight. Hold AV kris blockage. Cholecystitis: Perc ritika tube 08/21. Continues on meropenem. ID consulted off recommending end dateof 08/26. Vancomycin level this morning was 16.1, down from 19.4 yesterday (roughly 24 hours betweenlevels, no dose in between, reflecting poor clearance) - no plans to continue. Follow cultures from08/21. Txp: ESRD with kidney transplant in 2006. Nephrology consulted to help manage tacrolimus. Tacro level 08/20 was 12.5, dose held 08/21 and reduced to 1.5 mg BID. Repeat this morning was 16.4- recommend to hold tacrolimus and resume when trough closer to goal. Continue home prednisone, holding mycophenolate with infection GI: has chronic PEG, but takes medications by mouth at baseline. Starting tube feeds for likely starvation ketosis. AFib: with tachy/bennie. Heart rhythm consulted and recommending amiodarone if afib recurs. Will need to have eventual discussion on anticoagulation. Srinivas Callaway PharmWinnie., R.Ph. Pager [phone] * Carter Robison M.D. - 08/23/2023 7:21 AM CDT NEPHROLOGY ICU CONSULT SERVICE - PROGRESS NOTE Hospital Day 3 SUBJECTIVE Ms. Galvan is a 68 y.o. female with a past medical history significant for failed two renal transplants (most recent 2016) on chronic immunosuppression, chronic malnutrition with mesenteric ischemia and PEG tube who was admitted to the intensive care unit on 08/22/2023 for hypoxemic respiratory failure. She initially presented to outside hospital for fever and abdominal pain and was found to have acute cholecystitis. She underwent ERCP with a transcystic stent placement on 08/20. She was planned to have a percutaneous cholecystostomy tube in IR today, but she was found to be hypoxemic. She ultimately had 1.25 L of fluid resuscitation. She was initially on 4 L of nasal cannula oxygen had a s harp increase this morning requiring high-flow nasal cannula oxygen and transferred to the intensive care unit. She is now s/p thoracentesis and percutaneous cholecystostomy tube placement, and is pending further evaluation by the primary team. We were consulted for management of her immunosuppression. Events: -Underwent pleural effusion (900mL removed) -Team aggressively diereses her given volume overloaded state. Received 100mg twice. -Her tacro was changed to 12.5 Q12h due to a tacro level of 12.5. Repeat value this morning is pending. -Currently holding home cellcept, but given tacro and prednisone (5mg). -Multiple cardiac rhythms. Afib with RVR, sinus pauses, slow Afib. Suggestive of sick sinus syndrome. Atropine and pacing equipment are near by. Not on AV kris blockers. Plan to reach out to EP. OBJECTIVE Admission weight: 44.1 kg Weights for the past 120 hrs (Last 3 readings): Weight 08/22/23 0724 45.1 kg 08/20/23 2210 44.1 kg I/O 08/20 0000 08/20 2359 08/21 0000 08/21 2359 08/22 0000 08/22 2359 P.O. 100 100 Crystalloid Bolus 1000 Colloid Bolus 100 Maintenance IV 250 50 Intermittent Medications 300 150 Total Intake(mL/kg) 1650 (37.4) 300 (6.7) 100 (2.2) Urine (mL/kg/hr) 650 (0.6) 1100 (1) 0 (0) Emesis or Enteric Tube 0 0 Drains 0 0 Other 850 Stool 0 Blood 5 Total Output 650 195 0 Net +1000 -1655 +100 Unmeasured Urine Occurrence 2 x 2 x Unmeasured Stool Occurrence 1 x VITAL SIGNS Temperature: [36.6 ??C-36.7 ??C] 36.7 ??C Heart Rate: [64-126] 76 Resp Rate: [12-28] 14 Blood Pressure: (77-150)/(42-96) 135/63 FiO2 (%): [60 %] 60 % SpO2: [85 %-100 %] 90 % Flow Rate (L/min): [4 L/min-45 L/min] 4 L/min Pulse Rate: [60-126] 77 PHYSICAL EXAMINATION General appearance: alert and interactive, pale, appears chronically ill. HEENT: Ulcerated lesion on right forehead. Cardiac: rregular irregular. No murmurs appreciated. Lungs: Breathing unlabored on room air. Extremities: No lower extremity edema. Mental statu: AOx3. Able to participate in conversation. DIAGNOSTICS Results from last 7 days Lab Units 08/23/23 0309 08/22/23 0949 HEMOGLOBIN g/dL 8.3* 8.0* WBC x10(9)/L 14.9* 13.1* PLATELETS AUTO x10(9)/L 342 248 Last 2 results Lab Units 08/23/23 0309 08/22/23 1957 08/22/23 1258 08/22/23 0949 08/22/23 0640 08/22/23 0259 08/21/23 2118 08/21/23 1308 SODIUM P mmol/L -- -- -- 137 -- -- -- -- POC SODIUM mmol/L -- -- -- -- 135 -- -- -- SODIUM mmol/L 136 -- -- -- -- 134* 134* -- -- POTASSIUM mmol/L 4.7 4.6 < > -- -- 4.4 4.4 < > -- POTASSIUM P mmol/L -- -- -- 3.9 -- -- -- 4.3 BICARBONATE PLASMA mmol/L -- -- -- 18* -- -- -- -- BICARBONATE S mmol/L 13* -- -- -- -- 18* 18* -- -- BUN P mg/dL -- -- -- 46* -- -- -- -- BUN mg/dL 52* -- -- -- -- 43* 44* -- -- CREATININE mg/dL 2.20* -- -- 2.05* -- 2.07* 2.08* -- -- CALCIUM P mg/dL -- -- -- 8.5* -- -- -- -- CALCIUM mg/dL 8.4* -- -- -- -- 8.1* 8.1* -- -- POC IONIZED CALCIUM mg/dL -- -- -- -- 4.80 -- -- -- PHOSPHORUS INORGANIC mg/dL 6.0* -- -- -- -- 6.0* 6.0* -- -- MAGNESIUM mg/dL 3.2* 3.2* -- -- 2.0 -- 1.9 < > -- < > = values in this interval not displayed. Tacro 12.5. Morning trough not back today. ASSESSMENT / PLAN #ESRD #S/p Renal transplant (2016) #Unspecified glomerulonephritis #Hyperkalemia, resolved #PEDRITO, no evidence of ATN on UI, possibly prerenal azotemia Mrs. Jacqueline Galvan is a 68 y.o. female who presents with acute cholecystitis. PMHx significant for ESRD secondary to unspecified glomerular nephritis s/p left renal transplant x2 (2016) CAD s/p PCI (2005), AAA, osteoporosis, malnutrition, mesenteric ischemia. She is unfortunately again hospitalized in the intensive care unit. Her UA from two days ago did not show any evidence of ATN or other casts/proteinuria/heamturia that would explain her initial mild rise in Cr (2.0 from 1.5 baseline). It is possible that this is all related to prerenal azotemia within the setting of her current infection. Her creatinine today had a slight bump from 2.05 to 2.20. The patient was aggressively diuresed yesterday, which could contribute to the increase in creatinine. We recommend continuing with diuretics. Her tacrolimus level this morning has not yet resulted,. We will continue with the planned morning dose of tacrolimus of 1.5mg Q12h. We will follow up the tacro trough this afternoon and make recommendations for the evening dose, with a goal trough of 6-8. Continue to hold cellcept and continue on prednisone 5mg at this time. Recommendations - Continue 1.5 mg tacrolimus this morning with Q12h dosing. - Follow up on AM tacrolimus trough and reassess evening tacro dose. Goal is a trough of 6-8. - Hold cellcept, continue prednisone 5 mg daily - please obtain daily Mg, phosphorus, BMP - nephrology will continue to follow The patient was seen and discussed with pre owned sales consultant Dr. Winter. [place] [phone] with any questions. Carter Robison M.D. Internal Medicine, PGY-1 * Torito Ma M.D. - 08/23/2023 6:43 AM CDT [facility] Medicine 1 PROGRESS NOTE SUBJECTIVE BRIEF SUMMARY Mrs. Jacqueline Galvan is a 68 y.o. female who presents with acute cholecystitis. 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 Initially transferred from outside hospital with clinical symptoms and imaging findings concerning for acute cholecystitis now s/pchole tube by IR (08/22/23). Admitted to MICU for acute hypoxic respiratory failure with radiographic findings of pericardial effusions and left pleural effusion (now s/p thoracentesis) INTERVAL EVENTS Night: - ritika tube site looks great - tele showing intermittent a fib, rates 40s --> 120/130, occasional 2 sec pauses when in bennie - gave 2 g Mg - EKG showed a fib w rate of 117 - continued to have episodes of sinus bennie down to 30s then bounce to a fib to 130s/140s - patient was symptomatic when in afib w rvr (chest discomfort, palpitations, nausea) - gave zofran --> resolved - trop 84 ->86 nondynamic - HRS consulted c/f tachy-bennie syndrome and poss sick sinus syndrome - held heparin in case of PM placement Day Shift: - HRS reccs: minimal burden Afib iso illness. Not good candidate permanent device given active infection and no indication PPM. If recurrent -> 2 week MoMe and outpatient CV followup. If Afib recurs -> oral amiodarone 400mg TID 10 days, then 400mg daily for 30 days, then 200mg daily for total3 months. - Neph reccs: cont 1.5mg tacro BID. Followup AM tacro to adjust evening tacro dose, goal trough 6-8. - ID reccs: meropenem 500 BID EOT 08/26 - start tube feeding, w refeeding labs BID - meropenem 5 days (starting 08/23/23, source control s/p ritika tube) - start heparin DVT ppx OBJECTIVE VITAL SIGNS Temperature: [36.6 ??C-36.8 ??C] 36.8 ??C Heart Rate: [64-119] 78 Resp Rate: [12-28] 20 Blood Pressure: (91-150)/(48-93) 137/67 SpO2: [80 %-99 %] 92 % Flow Rate (L/min): [4 L/min-8 L/min] 8 L/min Height: [155 cm] 155 cm Pulse Rate: [61-126] 76 PHYSICAL EXAM General: AOx3, ill appearing HEENT: no scleral icterus CVS: Irregular rate and rhythm, but no murmurs/rubs or gallop. No significant JVD appreciated Lungs: mild crackles on L base, but no increased work of breathing Abdomen: Soft, nondistended. Mild tenderness in RUQ on palpation. No rebound or guarding. Skin: Warm and well-perfused Radial pulses +2 bilaterally No leg edema/pitting edema bilaterally DIAGNOSTICS (diagnostics reviewed) ASSESSMENT / PLAN Mrs. Jacqueline Galvan is a 68 y.o. female who presents with acute cholecystitis. 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 Initially transferred from outside hospital with clinical symptoms and imaging findings concerning for acute cholecystitis now s/p ritika tube by IR (08/22/23). Admitted to MICU for acute hypoxic respiratory failure with radiographic findings of pericardial effusions and left pleural effusion (now s/p thoracentesis) PLAN BY SYSTEMS: NEURO: # major depression disorder - sertraline 25 mg daily - Monitor mental status - Pain control: Tylenol 500 mg 4 times daily - Sedation: None CARDIAC: # AFib Jan Vasc 4, not on anticoagulation # ?tachy-bennie, sick sinus, not on beta blockade # pericardial effusion without tamponade physiology # HFpEF ( EF 54%, 2/3 LV diastolic fx) # coronary artery disease status post PCI 2005 # HTN - MAP goal: >65 - Pressors: None - Central access: none - Telemetry - Last TTE (08/22/2023): EF 66%, Normal LV size, normal RV size and fx, RVSP 51, mod-severe TR, small pericardial effusion - strict in's and out's - daily weight - Vol status: Euvolemia: 45 kg (at dry weight), improving O2 status HiFlo to NC, no significant JVD, no pitting edema LE, s/p thoracentesis. Caution fluid changes iso HFpEF hx and BMI 19 - HRS reccs: minimal burden Afib iso illness. Not good candidate permanent device given active infection and no indication PPM. If recurrent -> 2 week MoMe and outpatient CV followup. If Afib recurs -> oral amiodarone 400mg TID 10 days, then 400mg daily for 30 days, then 200mg daily for total3 months. - asymptomatic pericardial effusion-w/o other clinical sxm/findings of pericarditis -> monitor for now - continue home aspirin 81 mg daily, Lipitor 80 mg daily RESP: # left pleural effusion, s/p Thoracentesis 08/21, likely transudative # acute hypoxemic respiratory failure likely secondary to left pleural effusion - improving Etiologies for pleural effusion (heart, lung, liver, renal) is most likely 2/2 either malnutrition/low albumin (oncotic pressure differences) or worsening renal failure (ESRD) - Oxygen goal: > 92% - strict in's and out's - daily weight - Currently NC 4L, wean as able - followup pleural studies: LDH 115 (not 2/3 ULN), Prot 2.5 (PF/SF < 0.5) neg gram, Gluc 88, 1190 TNC, serous, AF smear wnl. Pending: cytology, leuk/lymph, fungal Cx, Elvia Cx, Broad range Elvia. Overall: transudative ID: # possible acute cholecystitis s/p Ritika tube IR (08/22/23) - meropenem 5 days (starting 08/23/23, source control s/p ritika tube) - followup ID pleural and GB studies : # ESRD w donor transplant (2006, 2016), iso GN # PEDRITO, likely pre-renal # Anion gap metab acidosis # hyperP 6.0 # hyperMg s/p 2x 2g Mg for Afib Causes AGMA: - meds: on Duoneb PRN, but no epinephrine, propofol, nitroprusside - no DKA, poisoning, lactate wnl (yesterday), methanol, ETOH, Iron. - likely 2/2 starvation ketoacidosis PEDRITO: U/A w/o casts. PVR wnl. Possible pre-renal. - daily BMP, Mag, Phos - Strict I&Os, daily weights - K >4, Mg >2 - Avoid nephrotoxic medications - Baseline creatinine: 1.2-1.4 - Cr 2.05 -> 2.2 - BUN 43 -> 52 - AGMA labs: lactate, BHB, U/A ketones - Neph reccs: cont 1.5mg tacro BID. Followup AM tacro to adjust evening tacro dose, goal trough 6-8. - hold 100mg torsemide daily - hold Cellcept iso infection - cont prednisone 5mg daily, tacrolimus (w trough) - goal 6-8 GI: # Meseteric ischemia w G tube # malnutrition, BMI 18, chronic wt loss # Acute cholecystitits s/p ritika tube (08/22/23) - age appropriate cancer screening outpatient: mammogram 2017 wnl. Colonoscopy 2015 2 tubular adenoma polyps. Hx smoking but prior CT not capture lung malignancy. Pleural studies: negative lymphoma/leukemia. Wt loss multifactorial 2/2 co-morbidities, ESRD, poor PO, mesenteric ischemia s/p G tube - Protonix 40mg daily - start tube feeding (no PPM placement) w refeeding labs BID ENDO: # low glucose, not meet hypoglycemia criteria - glucose 64 -90s - followup hypoglycemia labs, A1c HEME: # chronic anemia iso CKD - Hb 8.0 -> 8.3 - WBC 13 -> 15 - Anticoagulation/DVT prophylaxis: restart heparin DVT ppx today (no PPM placement) ACCESS: Lines, Drains, and Wounds Peripheral IV Duration Peripheral IV 20 G Right Forearm -- Peripheral IV 08/21/23 20 G Right Arm 1d 22h Drain Duration Biliary Tube Cholecystostomy 10 Fr. RUQ 20h GI Tubes (Adults) Percutaneous endoscopic;Gastrostomy 14 Fr Left;Lower;Quadrant (abdomen) 1d 22h Wound Duration Wound 05/28/23 Pressure Injury Unstageable Coccyx 87d 0h Wound 06/30/23 Skin Tear Skin tear Type 2 (partial flap loss) Knee Anterior;Bilateral 53d 15h Wound 07/09/23 Hematoma Head (Comment) Right Forehead 45d 12h Wound 08/21/23 Knee Anterior;Right;Lower Multifactorial wound 2d 4h Wound 08/21/23 Skin Tear Skin tear Type 1 (No skin loss) Arm Left;Upper;Anterior 1d 20h DISPO: - Code status: Full Code - Surrogate decision maker: Noah - Family updated Plan discussed with [facility] Medicine 1 Talent Acquisition Coordinator, Dr. Citlaly Jefferson M.D., who was present during desai portions of the evaluation today. Please page the [facility] 1 service pager at [phone] with any questions. * Torito Romero M.D. 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 Galvan has been having a variety of cardiac rhythms evident today including sinus pauses, slow A fib, A fib with RVR and junctional bradycardia. The junctional escape rhythm can get as low HR of 38 jin. She is not light headed nor having chest pain or warmth during the bradycardias. She doesfeel abit worse during the fast heart rates. This looks like a sick sinus syndrome to me. We have atropine and pacing equipment nearby but I think the risk of deteriorating to a dangerous rhythm is low. She is not receiving any AV kris blockeror sympatholytic medications. PLAN: - monitor carefully - reach out to EP service in the AM to see if they agree and suggest any different management. Please reach out for any further clarifications or needs. Torito Romero MD sales solutions associate pre owned sales consultant Lung transplant team Division of pulmonary critical care * Leann Sykes PharmWinnie., R.Ph. - 08/22/2023 8:17 AM CDT Pharmacist Progress Note HPI: 68 y.o. female. 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 Continue DATA ENTRY ASSOCIATE sertraline CV: SR, briefly in AF with RVR. Pulm: HFNC -> NC Neph: BL Scr ~1.2-1.4. UOP per intermittent charting ID: Afeb for past 24h and leukocytosis trending down. Meropenem and intermittent vancomycin GI/Nutrition/Endocrine: Last BM 08/21, BR-. Goal BG<180, avoiding hypoglycemia Prophylaxis: JORGE BID (habitus, hold for tube placement restart when able), PPI (DATA ENTRY ASSOCIATE medication) ASSESSMENT / PLAN Outpatient medication history: Reviewed by a Pharmacist(or retail pharmacy merchandiser) on 08/21/23 Procedures(this encounter): Pleural effusion - plan for thoracentesis and fluid studies. Follow results of fluid studies for need to tailor therapies. CV: small paracardial effusion without tamponade physiology. TTE today. IV diuresis, thought to be related to volume overload Cholecystitis: Continues on vancomycin and meropenem. Vancomycin per intermittent dosing with PEDRITO. Random level this am 19.4 represents about a 16 hour trough. Will plan to obtain random level with am labs tomorrow to assess need for further dose. HIDA scan confirmed cholecystitis, plan for ritika tube today. History of AAA, would avoid fluoroquinolones if looking to de-escalate to oral options Txp: ESRD with kidney transplant in 2006. Nephrology consulted to help manage tacrolimus. Dose reduced with elevated trough, continue to follow. Continue prednisone, holding mycophenolate with infection Leann Sykes Pharm.D., R.Ph. Pager [phone] * Vaibhav Whittington M.B., B.Ch., B.A.O. - 08/22/2023 5:40 AM CDT Infectious Diseases Transplant Consulting Service Progress Note SUBJECTIVE REASON FOR CONSULT Transplant-ID service pager at [phone] is following Jacqueline Galvan for evaluation and management of acute cholecystitis EVENTS OVER THE PAST 24 HOURS: ERCP was performed. A sphincterotomy was made. There were no filling defects in the biliary tree. The cystic duct was narrow and the gallbladder contained multiple stones. Multiple attempts were madeto traverse the cystic duct which was narrow and convoluted. A submucosal bleb was induced on the medial sidewall of the cystic duct. Ultimately a transcystic stent was not able to be placed, and a transpapillary stent was placed into the common bile duct. PEG tube was exchanged without complication. A PCT was planned for today, however this morning the patient was transferred to the ICU in the setting of increased supplemental O2 requirements following fluid administration for correction of hyperkalemia. Chest pain this morning is primarily in the right shoulder and center of the chest, no significant change when lying down or sitting up. OBJECTIVE PHYSICAL EXAMINATION I have reviewed the current vital sign data as applicable. Frail. Oon HFNC. Pronounced tenderness in the RUQ. No friction rub on cardiac examination. DIAGNOSTICS I have reviewed diagnostics. Studies of note include: ECG 08/19 with low anterior forces. No NE depression or ST-elevation noted. Estimated Creatinine Clearance: 18.3 mL/min (A) (by C-G formula based on SCr of 2.07 mg/dL (H)). Random vancomycin level: 19.4 Tacrolimus trough 08/20: 12.5 CMV DNA: pending Blood cultures 08/18 ([place]): NGTD Blood cultures 08/19: NGTD Urine Culture 08/18: Enterobacter cloacae complex Wound culture 08/13: Enterobacter cloacae complex RUQ Ultrasound 08/19/2023 ([facility] 1. Cholelithiasis (as also seen on noncontrast CT 06/22/2023). Gallbladder wall thickness measures upper normal/borderline thickened at 3 mm. A positive sonographic Isaac's sign is noted in the collections attorney's notation and included with the original interpretation of this exam. Gallbladder is well-distended. Trace amount of pericholecystic edema and/or fluid. Sonographic findings that are compatible with early acute cholecystitis in the appropriate clinical setting 2. Extrahepatic duct measures minimally prominent for patient age with evidence of tapering distally. No intrahepatic biliary ductal dilatation. CT Abdomen Pelvis 08/19/2023 ([facility]) 1. Cholelithiasis. The gallbladder is distended. No definite gallbladder wall thickening dilatationcould also be evaluated on right upper quadrant ultrasound. 2. Left lower quadrant renal allograft. 3. Marked calcific atherosclerotic disease throughout the abdomen and pelvis and an abdominal aortic aneurysm measuring 5.0 cm in maximal AP diameter. 4. New large pericardial effusion. Small amount of ascites has almost completely resolved. Small bilateral pleural effusions have improved. Diffuse anasarca has improved. ASSESSMENT / PLAN We are treating Mrs. Galvan for acute cholecystitis. This diagnosis has been made on the basis ofa distended gallbladder, cholelithiasis, and a positive sonographic Isaac's sign. There are some atypical features including a lack of definitive pericholecystic edema, chest pain > abdominal pain, absence of elevated transaminases. The patient also had a new large pericardial effusion present on admission out of proportion to what would be expected with volume overload, particularly when comparing to the pleural effusions. That does raise the possibility of pericarditis as an alternative or concomitant diagnosis, although I think this is less likely. Discussed with surgical service their thoughts on HIDA scan prior to possible PCT, when patient has stabilized. At present, continue meropenem. Vancomycin levels remain therapeutic today which should provide enterococcal coverage. Acute cholecystitis Moderate left pleural effusions and pericardial effusion Chronic right lower extremity wound Chronic wound on right forehead Sacral pressure ulcer PEDRITO with associated hyperkalemia, metabolic acidosis LUKT 2017, b/g ESRD unspecified GN IS: MMF, prednisone, tacrolimus CMV R-/D+, EBV R+/D+ Previous Kidney transplant (2006) complicated by allograft failure Malnutrition with chronic mesenteric ischemia s/p gastrostomy tube insertion 05/17/2023 Complicated by gastric perforation s/p ex-lap 05/19. Peritoneal cultures with E. 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 If thoracentesis is obtained, please send for pH, glucose, cell count with differential, Gram stain, fungal smear, acid fast smear, bacterial, mycobacterial and fungal cultures If pericardiocentesis is obtained, please send for cell count with differential, Gram stain, fungalsmear, acid fast smear, bacterial, mycobacterial and fungal cultures If PCT is performed, please send Gram stain and bacterial cultures Please page Transplant-ID service pager at [phone] with any questions. Vaibhav Shrestha B.Ch. B.A.O Infectious Diseases Fellow [phone] Associated attestation - Claribel Chauhan M.D. - 08/22/2023 11:51 AM CDT I saw and evaluated the patient, participating in the desai portions of the service. I reviewed the resident/fellow???s note. I agree with the resident/fellow???s findings and plan. ERCP with sphincterotomy yesterday showed multiple stones in gallbladder. Unable to place transverse cystic duct. The patient decompensated from respiratory standpoint requiring ICU support for high-flow oxygen. She is awake and alert and able to follow commands. No pressor requirement. CXR showed large left pleural effusion and pericardial effusion. The plan is to perform thoracentesis +/- percutaneous cystostomy tube versus HIDA scan. From ID standpoint, we would continue meropenem for now. We will continue to monitor her clinical status closely. I discussed the plan with her daughter at bedside. Claribel Chan M.D. Infectious Diseases Pager: [phone] * João Miles, R.R.T., L.R.T. - 08/22/2023 4:19 AM CDT 0200: RT called to bedside for persistent desaturation after a turn in bed. Patient was on 6L/min nasal cannula saturating low 80's. Relatively clear BBS with diminished lower segments noted. Simple face mask 10L/min started, service team made aware. Patient began recovering SpO2 over the next 15 min and was weaned to 6L/min face mask saturating 90-92%. RN told not to hesitate to page RT again. Electronically signed by: João Miles R.R.T., [place] 08/22/23 4:22 AM CDT * Vamshi Vivas M.D. - 08/21/2023 9:22 PM CDT MEDICINE TEAM 3 - ATTENDING PHYSICIAN NOTE I have independently seen and examined Mrs. Jacqueline Galvan. I have discussed the history and examination, independently reviewed the salient features, and agree with the findings and plan as documented in the resident's note. Their note should be considered an integral part of my note, with the following comments: PLAN Patient is a 68 year old female with PMH significant for ESRD secondary to unspecified glomerular nephritis s/p left renal transplant x2 (2006, 2016) CAD s/p PCI (2005), AAA, osteoporosis, malnutrition, mesenteric ischemia who presents for evaluation of fever, leukocytosis, and imaging concerning for acute cholecystitis. Unfortunately, she was deemed to be a poor surgical candidate and was transferred to [place] for further evaluation. Patient was seen/evaluated by [facility] and GI; briefly, she was not deemed a good surgical candidate, and ERCP for transcystic gallbladder stent placement was attempted but could not unfortunately be completed. Given this, plan will be for IR placement of percutaneous cholecystostomy tube tomorrow as destination therapy. Appreciate ID consultation. Continue meropenem. Low threshold to add daptomycin for clinical deterioration. Wound care given multiple wounds. Appreciate nephrology input given renal transplant, chronic renal dysfunction, and hyperkalemia. She was given Lokelma today. CellCept was held, and tacrolimus and prednisone are being continued withclose potassium monitoring. Vamshi Vivas M.D. Attending Physician Medicine 3 Service * Patricia Zimmer P.T., D.P.T. - 08/21/2023 2:45 PM CDT 08/21/23 1445 Reason Therapy Missed Reason Therapy Missed Receiving other care Patient away at test/procedure at time of attempt. Will plan to follow up for PT Wound Care evaluation tomorrow, as appropriate/able. Cassandra Zimmer P.T., D.P.T. * Ramirez Dawkins, PharmMarlysD., R.Ph. - 08/21/2023 11:41 AM CDT Images from the original note were not included. Admission Medication History Note Adherence issues: No concerns Medication list source: Patient, Family member, and Pharmacy or dispense records Medication related information: - all medications at home were being administered orally except tacrolimus (packets via tube but would be okay to transition back to oral capsules) - clarified dose of tacrolimus is 2 mg in the AM and 2.4 mg in the evening. Prior to Admission Medications Med List Status: Pharmacy Complete Set By: Ramirez Dawkins, PharmMarlysD., R.Ph. at 08/21/2023 11:38 AM Taking? Last Dose Informant Start Date End Date LT acetaminophen (TYLENOL) 500 mg tablet -- -- 07/16/23 -- Administer 2 tablets (1,000 mg total) via gastric tube 4 (four) times a day. Patient taking differently: Take 1,000 mg by mouth 2 (two) times a day. amLODIPine (NORVASC) 10 mg tablet -- -- 07/16/23 07/15/24 Administer 1 tablet (10 mg total) via gastric tube daily. Patient taking differently: Take 10 mg by mouth daily. aspirin 81 mg chewable tablet -- -- 07/16/23 07/15/24 Administer 1 tablet (81 mg total) via gastric tube daily. Patient taking differently: Chew 81 mg daily. atorvastatin (LIPITOR) 80 mg tablet -- -- 07/16/23 07/15/24 Administer 1 tablet (80 mg total) via gastric tube at bedtime. Patient taking differently: Take 80 mg by mouth at bedtime. cholecalciferol, vitamin D3, 25 mcg (1,000 Unit) tablet -- -- 07/16/23 07/15/24 Administer 1 tablet (25 mcg total) via gastric tube daily. Patient taking differently: Take 25 mcg by mouth daily. collagenase (SANTYL) 250 unit/gram ointment -- -- 07/17/23 -- Apply 1 Application topically daily. Apply to coccyx. diphenoxylate-atropine (LOMOTIL) 2.5-0.025 mg/5 mL liquid -- -- 07/16/23 -- Administer 10 mL via gastric tube 4 (four) times a day as needed for diarrhea. Patient taking differently: Take 10 mL by mouth 4 (four) times a day as needed for diarrhea. wmhgwk-qfkpsngy-lvzqruh (CREON) 36,000-114,000-180,[address] capsule -- -- -- -- Take 36,000 Units of lipase by mouth 4 (four) times a day. pafmvwiqruxg-sjkc-TM-Ca-minerals (THERAPEUTIC-M) 400 mcg (folic acid) per tablet -- -- 07/16/23 -- Administer 1 tablet via gastric tube daily. Patient taking differently: Take 1 tablet by mouth daily. mycophenolate (CELLCEPT) 250 mg capsule -- -- 09/03/22 -- TAKE 3 CAPSULES BY MOUTH EVERY MORNING AND 2 CAPSULES EVERY EVENING Notes: Transplanted Organ & Date: 06/21/2016 (Kidney), 01/31/2007 (Kidney). ICD- 10: Z 94.0 pantoprazole (PROTONIX) 40 mg EC tablet -- -- 07/18/23 07/17/24 Take 1 tablet (40 mg total) by mouth every morning before breakfast. predniSONE (DELTASONE) 5 mg tablet -- -- 07/10/23 -- TAKE 1 TABLET(5 MG) BY MOUTH DAILY QUEtiapine (SEROquel) 25 mg tablet Not Taking -- 07/16/23 07/15/24 Administer 1 tablet (25 mg total) via gastric tube at bedtime. Patient not taking: Reported on 08/21/2023 sertraline (ZOLOFT) 25 mg tablet -- -- 07/16/23 07/15/24 Take 1 tablet (25 mg total) by mouth daily. suvorexant 10 mg tablet Not Taking -- 07/16/23 10/14/23 Take 1 tablet (10 mg total) by mouth at bedtime as needed for sleep. Patient not taking: Reported on 08/21/2023 tacrolimus (PROGRAF) 0.2 mg granules in packet granules -- -- 07/16/23 08/21/23 Administer 2 packets (0.4 mg total) via gastric tube every evening. tacrolimus (PROGRAF) 1 mg granules in packet granules -- -- 07/16/23 08/21/23 Administer 2 packets (2 mg total) via gastric tube 2 (two) times a day. torsemide (DEMADEX) 100 mg tablet -- -- 07/16/23 -- Take 1 tablet (100 mg total) by mouth daily as needed if daily weight rises by more than 3lbs. If weight does not decrease, increase to 2 tablets (200 mg) and contact a physician * Salvatore Burt R.N., C.W.C.N. - 08/21/2023 10:41 AM CDT [facility] Wound RN consulted to assess Jacqueline Galvan skin alterations. Wound assessment, pain, andBraden score noted in the flowsheet. The patient consented to photography of the affected area for clinical trending purposes. Images were taken and are available in QREADS. History: Per provider note, Mrs. Jacqueline Galvan is a 68 y.o. female who presents with acute cholecystitis. 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 Imaging studies at outside hospital suggestive of acute cholecystitis. Assessment: The patient was assessed while in bed. She has had a chronic pressure injury on coccyx,which is still partially obscured with yellow slough. While the previous hospitalization, she had hematoma on the right leg and the site is now open and mainly with yellow slough with exposed fat tissue. She states tenderness but denies severe pain on palpation. Another wound on the right forehead (Prior hematoma site) and hypergranulation tissue noted. She was recently seen by provider from [facility] and they recommended using Therahoney and Hydrofera blue ready. - Ordered specialty bed, ROHO cushion today. - Placed PT wound care consult for mist therapy on the right leg and coccyx today. 08/21/23 0900 Wound 05/28/23 Pressure Injury Unstageable Coccyx Date First Assessed/Time First Assessed: 05/28/23 1135 Present on Original Admission: No Primary Wound Type: Pressure Injury Pressure Injury Staging: Unstageable Location: Coccyx *Shape Linear or elongated *Wound Length (cm) 2 cm *Wound Width (cm) 0.5 cm Wound Surface Area 1 cm^2 *Wound Bed Open;Red;Yellow;Fibrin/Slough Odor None *Exudate Amount Scant Drainage Description Serosanguineous Treatments Cleansed Wound Cleansed with Wound cleanser (Vashe cleanser) *Primary Dressing Wound gel (plurogel) *Primary Dressing Frequency of Change Daily & PRN Primary Dressing Changed New *Secondary Dressing Foam *Secondary Dressing Frequency of Change Daily & PRN Secondary Dressing Changed New Changed by Wound home economics expert Lengthy Treatment > 30 minutes > 30 minutes Ongoing management Nursing;Wound/penology teacherfire pilot done by WOC RN? Yes BWAT Size 1-Length x width <4 sq cm BWAT Depth 4-Obscured by necrosis BWAT Edges 2-Distinct, outline clearly visible, attached, even with the wound base BWAT Undermining 1-None present BWAT Necrotic Tissue Type 3-Loosely adherent yellow slough BWAT Necrotic Tissue Amount 4->50 to <75% of wound covered BWAT Exudate Type 3-Serosanguinous: thin, watery, pale red/pink BWAT Drainage Amount 2-Scant, wound moist but no observable exudate BWAT Skin Color Surrounding Wound 2-Bright red and/or blanches to touch BWAT Peripheral Tissue Edema 1-No swelling or edema BWAT Peripheral Tissue Induration 1-None present BWAT Granulation Tissue 3-Bright, beefy red, <75% and >25% of wound filled BWAT Epithelialization 5-<25% wound covered BWAT Total Score 32 Wound 08/21/23 Knee Anterior;Right;Lower Multifactorial wound Date First Assessed/Time First Assessed: 08/21/23 0900 Present on Original Admission: Yes Location:Knee Wound Location Orientation: Anterior;Right;Lower Wound Description (Comments): Multifactorial wound *Shape Round / oval *Wound Length (cm) 2 cm *Wound Width (cm) 3 cm *Wound Depth (cm) 1 cm Wound Surface Area 6 cm^2 *Wound Bed Open;Red;[place];Yellow Odor None *Exudate Amount Scant Drainage Description Serous Ebony-wound Assessment Dry;Intact Treatments Cleansed Wound Cleansed with Wound cleanser (vashe cleanser) *Primary Dressing Gelling fiber/Hydrofiber (Aquacel Ag) *Primary Dressing Frequency of Change Daily & PRN Primary Dressing Changed New *Secondary Dressing Foam *Secondary Dressing Frequency of Change Daily & PRN Secondary Dressing Changed New Changed by Wound home economics expert Lengthy Treatment > 30 minutes > 30 minutes Ongoing management Nursing;Wound/penology teacher Wound 07/09/23 Hematoma Head (Comment) Right Forehead Date First Assessed: 07/09/23 Present on Original Admission: Yes Primary Wound Type: Hematoma Location: Head (Comment) Wound Location Orientation: Right Wound Description (Comments): Forehead *Shape Round / oval *Wound Length (cm) 1.2 cm *Wound Width (cm) 1 cm Wound Surface Area 1.2 cm^2 *Wound Bed Open;Hypergranulation;[place] Odor None *Exudate Amount Scant Drainage Description Serous Ebony-wound Assessment Intact Treatments Cleansed Wound Cleansed with Wound cleanser (Vashe cleanser) *Primary Dressing Gelling fiber/Hydrofiber (Aquagel Ag) *Primary Dressing Frequency of Change Daily & PRN Primary Dressing Changed New *Secondary Dressing Foam (Mepilex lite) *Secondary Dressing Frequency of Change Daily & PRN Secondary Dressing Changed New Changed by Wound home economics expert Ongoing management Wound/penology teacher Focused assessment completed DRESSING RECOMMENDATIONS: #1 Pressure Injury Unstageable Coccyx -Cleanse the wound with Vashe wound cleanser. Pat dry. -Apply a layer of PluroGel, 3mm thick, directly to the wound bed. -Ensure that the PluroGel covers the wound completely. -Cover with a sacral Mepilex border. -Change once daily and PRN. #2 Knee Anterior;Right;Lower Multifactorial wound #3 Hematoma Head (Comment) Right Forehead -Cleanse the wound with Vashe wound cleanser. Pat dry. -Place Aquacel Ag and cut to slightly larger than the wound, to ensure it comes into contact with the entire wound bed. Change once daily. -Cover with a Mepilex foam or Mepilex lite -Change once daily and PRN. Recommended interventions for pressure redistribution and shear reduction: Offload heels on pillows at all times when in bed. Full 30 degree turns side to side every 2 hours with supine positioning only for meals. Reposition at least every hour while in [...] incontinence episode and for routine hygiene cares. Apply Zinc Oxide Paste (PROTECT/Z Guard). Reapply after each episode of incontinence and routine hygiene cares as directed. Consult recommendations: Physical therapy was consulted to assess for advanced wound therapies. Nutrition Consult was placedfor pressure injury needs.(08/21/23) Education: Discussed the plan of care with the patient and nursing. They agree to the plan. The WOC RN will continue to see the patient, contact or reconsult for worsening wounds or new wounds. Electronically signed by: Salvatore Burt R.N., C.W.C.N. 08/21/23 10:42 AM CDT * Ramirez Dawkins, D., R.Ph. 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 Cystatin C 3.11 (eGFR 15 mL/min/BSA) VTE Prophylaxis: held for procedure ASSESSMENT / PLAN Cholecystitis. GI consult for transcystic stent vs IR tube for drainage since not a surgical candidate. Given h/o enterococcus faeceum (R-penicillin) from abdomen (May 2023) recommend starting vancomycin. Pseudomonas previuosly isolated from urine cx R to zosyn, consider changing zosyn to cipro or m eropenem. Abx have been renal dose adjusted. ID consult pending Vancomycin TDM. Weight 44.1 kg. Poor renal function evidenced by elevated cys C (eGFR~15 mL/min/BSA). Load w/ 1g now, check random level w/ AM labs tomorrow. Goal trough 10-15 mcg/mL. Vancomycin intermittent dosing for now. Renal transplant. PEDRITO. Volume overloaded. Crcl ~ 19. Holding CellCept. Continuing prednisone and tacrolimus w/ trough pending, would be okay to transition back to oral capsules. Torsemide 100 mg daily Pancreatic insufficiency. Resume Creon when tube feeds resume. Resume VTE ppx after procedure when cleared Had not been taking quetiapine, consider stopping Ramirez Dawkins, Pharm.D., R.Ph. [phone] documented in this encounter H&P Notes * Cris Gracia M.D. - 08/22/2023 1:56 PM CDT This is a supervisory note for CCM-1. We have discussed the history, physical exam, and assessment/plan in detail. I agree with the documentation of today's date. I have personally seen and examined the patient, reviewed all relevant labs, radiology studies, and chart notes. I have discussed the assessment and plan in person with the multidisciplinary care team. Subjective: Ms. Galvan is a 68 y.o. female with a past medical history significant for failed renal transplant, chronic malnutrition with mesenteric ischemia and PEG tube who was admitted to the intensive careunit on 08/22/2023 for hypoxemic respiratory failure. She initially presented to outside hospital for fever and abdominal pain and was found to have acute cholecystitis. She underwent ERCP with a transcystic stent placement on 08/20. She was planned to have a percutaneous cholecystostomy tube in IR today, but she was found to be hypoxemic. She ultimately had 1.25 L of fluid resuscitation. She was initially on 4 L of nasal cannula oxygen had a sharp increase this morning requiring high- flow nasalcannula oxygen and transferred to the intensive care unit. Medical history is notable for: -ESRD status post renal transplant x2 (most recent 2016) on chronic immunosuppression, CAD status post PCI, AA, osteoporosis, hypertension, chronic mesenteric ischemia, PEG tube Physical Exam: General: Alert. Maintaining saturations on high-flow nasal cannula oxygen Heart: Regular rate and rhythm Lungs: Diminished on the left. Crackles bilaterally. Abdomen: soft, nontender, nondistended, normal bowel sounds . Extremities: Warm and well perfused. 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 with possible episode of UTI in June 2023 Sigmoid diverticulitis intramural abscesses 05/2023 and gastric perforation s/p exploratory laparotomy on 05/19/2023 - intra-abdominal culture grew E faecium (non-VRE) complicated by ischemic midline wound requiring debridement on 05/29/2023 PEDRITO requiring CRRT in 05/2023 Advanced colonic diverticulosis History of esophageal candidiasis 05/2023 History of low grade CMV viremia History of AAA Pulmonary colonization with filamentous fungus ESRD secondary to glomerulonephritis s/p renal transplant x 2 (2006, 2016); CMV D-/R+, EBV D+/R+ CAD s/p PCI 2005 Malnutrition s/p gastrostomy tube insertion Her respiratory failure today seems to be consistent with volume overload. We will perform a bedside thoracentesis with the appropriate studies to rule out infection. We will also plan on actively diuresing her to a net negative status. She does have evidence of a pericardial effusion on bedside ultrasound but does not have tamponade physiology. We will obtain a formal echocardiogram. We are not confident that she has evidence of cholecystitis right now. We will obtain a HIDA scan to further evaluate. I spoke with transplant Infectious diseases and they were in agreement with thisplan. Plan: -TTE -Thoracentesis -Diuresis IV Lasix -HIDA scan -Continue meropenem as per TrxID -holding DVT prophylaxis until deciding about procedures. We will need to resume the end of the daytoday. 15. Code status: Full Code Prophylactic ICU bundle: Fluids- diurese to net negative status Analgesia-scheduled Tylenol Sedation-not indicated Thromboembolic prophylaxis-we will place back on DVT prophylaxis with subcutaneous heparin Head of bed elevation-30?? Ulcer prophylaxis-continue home pantoprazole Glucose management-less than 180 Lines-peripheral IV x2, peg tube Mobility-passive range of motion Nutrition-all enteric feeds for HIDA scan Critical care time 30 minutes. This is time spent at this critically ill patient's bedside activelyinvolved in patient care as well as the coordination of care and discussions with the patient's family. This does not include any procedural time which has been billed separately. * Torito Ma M.D. - 08/22/2023 7:35 AM CDT [facility] Admission Note SUBJECTIVE MICU CC Acute hypoxic respiratory failure HISTORY OF PRESENT ILLNESS Mrs. Jacqueline Galvan is a 68 y.o. female who presents with acute cholecystitis. PMHx significant for ESRD secondary to unspecified glomerular nephritis s/p left renal transplant x2 (2006, 2016) CAD s/p PCI (2005), HFpEF (EF 54%), AAA, osteoporosis, malnutrition, mesenteric ischemia. She presented at an outside hospital for fever, and imaging was suggestive of acute cholecystitis. She was deemed to be a poor surgical candidate and was transferred to [facility] for further interventions. On arrival to the floor the patient was hemodynamically stable and in no acute distress. She was initially on Zosyn but given history of resistance she was started on vancomycin and meropenem. She was noted to be hyperkalemic to 5.7 and given her history of renal transplant nephrology was consultedwho recommended Lokelma and gentle hydration with improvement to 4.3. Surgery evaluated the patientin hospital and determined that she was not a surgical candidate now or in the foreseeable future given her previous ex lap. It was recommended to proceed with transcystic stent placement for destination therapy however during ERCP on 08/21/2023 it was noted that the patient had a tight cystic ductand so was unable to have a stent placed. Plan was for the patient to proceed with higher percutaneous cholecystostomy drain placement on 08/22/2023 however overnight on 08/20 the patient was noted to be hypoxic to the mid 80s requiring up to 10 L supplemental oxygen. An x-ray was obtained that demonstrated worsening left-sided pleural effusion and a large pericardial effusion. VBG at that time demonstrated pH 7.28 and She received 100 mg of IV Lasix. Her oxygen requirement improved back to herprevious support of 5-6 L but then the morning of 08/21 she was noted to have increasing oxygen requirements again with heart rate up to the 120s-130s for which an WEAVING INSTRUCTOR was called. Given her increasingoxygen requirements, increased heart rate and complicated course she was taken to the ICU further evaluation and management. Admitted to MICU for acute hypoxic respiratory failure with radiographic findings of pericardial effusions and left pleural effusion. OBJECTIVE VITAL SIGNS Temperature: [36 ??C-36.7 ??C] 36.6 ??C Heart Rate: [62-88] 68 Resp Rate: [12-21] 14 Blood Pressure: (111-146)/(49-108) 132/66 FiO2 (%): [60 %] 60 % SpO2: [82 %-98 %] 93 % Flow Rate (L/min): [5 L/min-45 L/min] 45 L/min Height: [155 cm-165.1 cm] 155 cm Weight: [45.1 kg] 45.1 kg BSA (Calculated - sq m): [1.39 sq meters] 1.39 sq meters BMI (Calculated): [18.8 kg/m??] 18.8 kg/m?? Pulse Rate: [59-122] 68 PHYSICAL EXAM General: AOx3, ill appearing HEENT: no scleral icterus CVS: Irregular rate and rhythm, but no murmurs/rubs or gallop. No significant JVD appreciated Lungs: Crackles on bases left greater than right. No increased work of breathing Abdomen: Soft, nondistended. Mild tenderness in RUQ on palpation. No rebound or guarding. Skin: Warm and well-perfused Radial pulses +2 bilaterally No leg edema/pitting edema bilaterally DIAGNOSTICS (diagnostics reviewed) ASSESSMENT / PLAN Mrs. Jacqueline Galvan is a 68 y.o. female who presents with acute cholecystitis. 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 Initially transferred from outside hospital with clinical symptoms and imaging findings concerning for acute cholecystitis with plans for cholecystostomy tube (ERCP - unable to place stent, not good surgical candidate). Admitted to MICU for acute hypoxic respiratory failure with radiographic findings of pericardial effusions andleft pleural effusion. PLAN BY SYSTEMS: NEURO: # major depression disorder - sertraline 25 mg daily - Monitor mental status - Pain control: Tylenol 500 mg 4 times daily - Sedation: None CARDIAC: # pericardial effusion without tamponade physiology # AFib Jan Vasc 4, not on anticoagulation # HFpEF ( EF 54%, 2/3 LV diastolic fx) # coronary artery disease status post PCI 2005 # HTN - MAP goal: >65 - Pressors: None - Central access: none - Telemetry - Last TTE (05/2023): EF 54%, no RWMA, normal LV size w concentric wall thickness, 2/3 LV diastolic fx. Normal RV size and fx. Moderate enlarged LA size - continue home aspirin 81 mg daily, Lipitor 80 mg daily - follow up TTE - hold anticoagulation in the setting of possible IR guided procedure. We will need to discuss anticoagulation in the setting of pAF (since 2013) later on - 100 mg IV Lasix - strict in's and out's - daily weight RESP: # left pleural effusion, likely transudative # acute hypoxemic respiratory failure likely secondary to left pleural effusion Etiologies for pleural effusion (heart, lung, liver, renal) is most likely 2/2 either malnutrition/low albumin (oncotic pressure differences) or worsening renal failure (ESRD) - Oxygen goal: > 92% - Currently on Hi Flow 45, FiO2 60% - 100 mg IV Lasix - thoracentesis of L pleural effusion w pleural studies - strict in's and out's - daily weight ID: # possible acute cholecystitis - followup ID reccs - de-escalate vanc IV 1g - Continue meropenem 500mg BID IV (08/20) - ERCP - not amendable for stent - general surgery - not surgical candidate - HIDA scan - hold on IR guided ritika tube until HIDA results - No active issues - Skin checks per nursing : #ESRD w donor transplant - followup neph reccs - Baseline creatinine: 1.2-1.4 - hold 100mg torsemide daily - hold Cellcept iso infection - cont prednisone 5mg daily, tacrolimus (w trough) - daily BMP, Mag, Phos - 1x Lasix 100mg IV - Strict I&Os, daily weights - K >4, Mg >2 - Avoid nephrotoxic medications GI: # Meseteric ischemia w G tube # malnutrition, BMI 18 # Possible Acute cholecystitits - Protonix 40mg daily - Nutrition consult - followup on possible ritika tube by IR (after thoracentesis) ENDO: - followup hypoglycemia labs HEME: # chronic anemia iso CKD - Hb 8.6 -> 7.2, likely dilutional as plts and WBC were downtrending - lactate 0.5 wnl - Anticoagulation/DVT prophylaxis: hold on heparin dvt ppx for now, consider restarting in PM ACCESS: Lines, Drains, and Wounds Peripheral IV Duration Peripheral IV 20 G Right Forearm -- Peripheral IV 08/21/23 20 G Right Arm 17h Drain Duration GI Tubes (Adults) Percutaneous endoscopic;Gastrostomy 14 Fr Left;Lower;Quadrant (abdomen) 16h Wound Duration Wound 05/28/23 Pressure Injury Unstageable Coccyx 85d 19h Wound 06/30/23 Skin Tear Skin tear Type 2 (partial flap loss) Knee Anterior;Bilateral 52d 9h Wound 07/09/23 Hematoma Head (Comment) Right Forehead 44d 6h Wound 08/21/23 Knee Anterior;Right;Lower Multifactorial wound 22h Wound 08/21/23 Skin Tear Skin tear Type 1 (No skin loss) Arm Anterior;Left;Upper 22h Wound 08/21/23 Skin Tear Skin tear Type 1 (No skin loss) Arm Left;Upper;Anterior 14h DISPO: - Code status: Full Code - Surrogate decision maker: Noah - Family updated Plan discussed with [facility] ([facility]) Talent Acquisition Coordinator, Cris Haynes M.D., who was presentduring desai portions of the evaluation today. Please page the [facility] 1 service pager at [phone] with any questions. * Akshat Rhoades M.D. - 08/20/2023 7:12 PM CDT [facility] Medicine 3 ([facility]) Admission Note SUBJECTIVE CHIEF COMPLAINT / REASON FOR VISIT Acute Cholecystitis HISTORY OF PRESENT ILLNESS Mrs. Jacqueline Galvan is a 68 y.o. female who presents with acute cholecystitis. PMHx significant for ESRD secondary to unspecified glomerular nephritis s/p left renal transplant x2 (2006, 2016) CAD s/p PCI (2005), AAA, osteoporosis, malnutrition, mesenteric ischemia, Patient was hospitalized for severe malnutrition on . At that time she was noted to have a 45 lb weight loss and failure to thrive thought to be secondary to chronic mesenteric ischemia. She had an IR guided PEG placement performed to provide enteral nutrition. However, on 05/19/2023 she underwent exploratory laparotomy due to concern for gastric perforation from the PEG placement. Was then taken back to the OR on 05/29/2023 for debridement and wound VAC placement. Patient had an extended hospital course with multiple admissions to the ICU. On discharge, the patient and her family hadsignificant number of goals of care discussions and stated that going was most important them. They were discharged on 07/16/2023. Today the patient presented to an outside hospital for a concern for fever. Imaging studies includeCT PE, CT A/P, gallbladder US. They were suggestive of bilateral pleural effusions and acute cholecystitis. She was placed on vancomycin and Zosyn. The patient was deemed to be a very poor surgical ca ndidate and so the recommendation was to place a percutaneous 2. They were unable to place a percutaneous cholecystostomy tube due to no interventional Radiology coverage and the patient was transferred to our facility. Upon arrival to our facility the patient was hemodynamically stable. She stated that she was drowsybecause of morphine that she received with the outside hospital. She denied any current abdominal pain but endorsed nausea while she was lying down in the transport vehicle. She has no longer having nausea at this point. Denied fever, chills, chest pain, shortness for breath. When asked about how much oxygen the patient uses at home she was unable to answer. Unable to answer questions about many of her medical problems. Meds, allergies, medical, surgical, social & family histories have been reviewed & updated as necessary. Current Outpatient Medications on File Prior to Encounter: acetaminophen (TYLENOL) 500 mg tablet, Administer 2 tablets (1,000 mg total) via gastric tube 4 (four) times a day. amLODIPine (NORVASC) 10 mg tablet, Administer 1 tablet (10 mg total) via gastric tube daily. aspirin 81 mg chewable tablet, Administer 1 tablet (81 mg total) via gastric tube daily. atorvastatin (LIPITOR) 80 mg tablet, Administer 1 tablet (80 mg total) via gastric tube at bedtime. cholecalciferol, vitamin D3, 25 mcg (1,000 Unit) tablet, Administer 1 tablet (25 mcg total) via gastric tube daily. collagenase (SANTYL) 250 unit/gram ointment, Apply 1 Application topically daily. Apply to coccyx. diphenoxylate-atropine (LOMOTIL) 2.5-0.025 mg/5 mL liquid, Administer 10 mL via gastric tube 4 (four) times a day as needed for diarrhea. rwgufaybgygc-tjsc-MI-Ca-minerals (THERAPEUTIC-M) 400 mcg (folic acid) per tablet, Administer 1 tablet via gastric tube daily. mycophenolate (CELLCEPT) 250 mg capsule, TAKE 3 CAPSULES BY MOUTH EVERY MORNING AND 2 CAPSULES EVERY EVENING pantoprazole (PROTONIX) 40 mg EC tablet, Take 1 tablet (40 mg total) by mouth every morning before breakfast. predniSONE (DELTASONE) 5 mg tablet, TAKE 1 TABLET(5 MG) BY MOUTH DAILY QUEtiapine (SEROquel) 25 mg tablet, Administer 1 tablet (25 mg total) via gastric tube at bedtime. sertraline (ZOLOFT) 25 mg tablet, Take 1 tablet (25 mg total) by mouth daily. suvorexant 10 mg tablet, Take 1 tablet (10 mg total) by mouth at bedtime as needed for sleep. tacrolimus (PROGRAF) 0.2 mg granules in packet granules, Administer 2 packets (0.4 mg total) via gastric tube every evening. tacrolimus (PROGRAF) 1 mg granules in packet granules, Administer 2 packets (2 mg total) via gastric tube 2 (two) times a day. torsemide (DEMADEX) 100 mg tablet, Take 1 tablet (100 mg total) by mouth daily as needed if daily weight rises by more than 3lbs. If weight does not decrease, increase to 2 tablets (200 mg) and contact a physician OBJECTIVE VITAL SIGNS Temperature: [36.3 ??C] 36.3 ??C Resp Rate: [13-14] 14 Blood Pressure: (114-143)/(64-66) 143/64 SpO2: [88 %-92 %] 92 % Flow Rate (L/min): [4 L/min] 4 L/min Height: [165.1 cm] 165.1 cm Weight: [44.1 kg] 44.1 kg BSA (Calculated - sq m): [1.42 sq meters] 1.42 sq meters BMI (Calculated): [16.2 kg/m??] 16.2 kg/m?? Pulse Rate: [58] 58 Recent Results (from the past 24 hour(s)) NT-Pro B-Type Natriuretic Peptide (BNP) Collection Time: 08/20/23 8:46 PM Result Value NT-Pro BNP 7340 (H) CBC with Differential, Blood Collection Time: 08/20/23 8:57 PM Result Value Hemoglobin 9.2 (L) Hematocrit 29.7 (L) Erythrocytes 3.23 (L) MCV 92.0 RBC Distrib Width 17.6 (H) Platelet Count 273 Leukocytes 16.9 (H) Neutrophils 15.29 (H) Lymphocytes 0.45 (L) Monocytes 1.08 (H) Eosinophils <0.03 Basophils 0.03 Hepatic Function Panel Collection Time: 08/20/23 8:57 PM Result Value Bilirubin, Total, S 0.5 Bilirubin, Direct, S 0.3 Aspartate Aminotransferase (AST), S 22 Alanine Aminotransferase (ALT), S 31 Alkaline Phosphatase, S 147 (H) Albumin, S 3.3 (L) Protein, Total, S 6.3 Renal Function Panel Collection Time: 08/20/23 8:57 PM Result Value Potassium, S 5.7 (H) Sodium, S 135 Chloride, S 102 Bicarbonate, S 18 (L) Anion Gap 15 BUN (Blood Urea Nitrogen), S 38 (H) Creatinine 1.88 (H) Estimated GFR (eGFR) 29 (L) Calcium, Total, S 8.7 (L) Glucose, S 157 (H) Albumin, S 3.3 (L) Phosphorus (Inorganic), S 7.0 (H) Prothrombin Time (PT) Collection Time: 08/20/23 8:57 PM Result Value Prothrombin Time, P 18.1 (H) INR 1.6 Lactate for Sepsis with Reflex Collection Time: 08/20/23 8:57 PM Result Value Lactate, P 1.4 Glucose, POCT Collection Time: 08/20/23 10:35 PM Result Value Glucose, POCT, B 174 (H) Site Capillary Last Intake 1-2 hours Potassium Collection Time: 08/20/23 10:53 PM Result Value Potassium, S 5.7 (H) Potassium Collection Time: 08/21/23 1:51 AM Result Value Potassium, S 5.6 (H) CBC with Differential, Blood Collection Time: 08/21/23 3:55 AM Result Value Hemoglobin 8.6 (L) Hematocrit 26.8 (L) Erythrocytes 2.91 (L) MCV 92.1 RBC Distrib Width 17.4 (H) Platelet Count 265 Leukocytes 16.2 (H) Neutrophils 14.30 (H) Lymphocytes 0.47 (L) Monocytes 1.36 (H) Eosinophils <0.03 Basophils <0.03 Cystatin C with Estimated GFR Collection Time: 08/21/23 3:55 AM Result Value eGFR by Cystatin C 15 (L) Cystatin C 3.11 (H) Renal Function Panel Collection Time: 08/21/23 3:55 AM Result Value Potassium, S 5.6 (H) Sodium, S 133 (L) Chloride, S 102 Bicarbonate, S 17 (L) Anion Gap 14 BUN (Blood Urea Nitrogen), S 41 (H) Creatinine 1.92 (H) Estimated GFR (eGFR) 28 (L) Calcium, Total, S 8.9 Glucose, S 169 (H) Albumin, S 3.1 (L) Phosphorus (Inorganic), S 7.1 (H) Urinalysis, with Microscopic: Urine, Midstream Collection Time: 08/21/23 4:10 AM Result Value Source Urine, Urine, Midstream Color, U Yellow Clarity, U Clear Protein, U 11 Protein/Osmolality 0.34 Predicted 24 HR Protein, U 252 (H) Predicted Range 62-1021 Comment Micro done on <10 mL Microscopic Manual Collection Time: 08/21/23 4:10 AM Result Value Microscopy Normal RBC None Seen WBC None Seen Crystals Calcium Oxalate crystals present pH, Random, Urine Collection Time: 08/21/23 4:10 AM Result Value pH, Random, U 4.3 (L) Osmolality, Urine Collection Time: 08/21/23 4:10 AM Result Value Osmolality, U 322 Dipstick, Urine Collection Time: 08/21/23 4:10 AM Result Value Hemoglobin, QL, U Negative Leukocyte Esterase, U Negative Nitrite, U Negative Ketone, U Negative Glucose, U Negative ' PHYSICAL EXAMINATION General: Alert, interactive, cachectic, moderately ill appearing Skin: wound on right forehead which was covered with a bandage and nonhealing lower extremity woundwith significant depth over anterior aspect of right knee. Eyes: Pupils equal, round, and reactive. Sclera anicteric. Extraocular motion intact. ENT: Hearing grossly intact. Minimal nasal discharge. Supple, no JVD. Oral mucosa pink. Trachea midline. Pulmonary: bilateral crackles in the bases, wheezing auscultated anteriorly in the upper lung [place]. Cardiovascular: Regular rate and rhythm. No murmurs appreciated. No lower extremity edema. GI: soft, flat, nontender to palpation, Isaac's sign negative, PEG tube in place, site appears unremarkable. Neuro: Cranial nerves II-XII intact. Moves all four extremities purposefully antigravity. Sensationintact to light touch bilaterally at the upper and lower extremities. Mental: Mood and affect congruent. Alert and oriented. Attention intact. No evidence of disorganized thinking. Reliable historian. DIAGNOSTICS I have independently reviewed the labs, ECG, and diagnostics from last three months ASSESSMENT / PLAN Mrs. Jacqueline Galvan is a 68 y.o. female who presents with acute cholecystitis. 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 Imaging studies at outside hospital suggestive of acute cholecystitis. Patient deemed poor surgical candidate and plan was to pursue IR perc choley tube. Given that this is likely destination therapy we will plan to consult GI regarding possibility of ERCP with transcystic stent placement. We will continue broad spectrum antibiotic treatment, pending cultures. In regards to the patient's ESRD s/p kidney transplant, nephrology will be consulted and immunosuppressive medications will be given at this time. The patient has evidence of bilateral pleural effusions with physical exam suggestive of volume overload and her home diuretics will be continued. The patient has evidence of nonhealing wounds over her RLE. A wound care consult was placed for recommendations regarding dressings and further management. #Acute Cholecystitis #Leukocytosis - poor surgical candidate per outside hospital - General surgery to evaluate here to determine whether ERCP w/ transcystic stent placement would be destination therapy - unable to receive IR perc choley at outside hospital - started on vanc/zosyn at outside hospital -> will transition to vanc/carolee here due to multi-drug resistant bacteria identified on previous cultures - obtain cultures for guidance in antibiotic therapy - leukocytosis on admission - lactate wnl on admission Plan: - GS to evaluate for possibility of surgical intervention - GI consult for ERCP w/ transcystic stent placement - Broad spectrum abx pending culture #ESRD #S/p Renal transplant (2006, 2017) #Unspecified glomerulonephritis #Hyperkalemia #PEDRITO - Nephrology consulted, appreciate recommendations - c/w home prednisone - c/w home tacrolimus - c/w cellcept - patient with signs of significant volume overload, will continue home torsemide and provide further diuresis as needed - patient hyperkalemic on admission s/p lasix, albuterol, calcium gluc Plan: - continue home torsemide pending blood pressure stability - consult nephrology - renal US #CAD #S/p PCI 2005 #PHTN - c/w aspirin - previous echo 05/20/2023 - normal EF - RVSP 54 - consider repeat echo - BNP on admission 7340, previously [id number] #Malnutrition #PEG tube - nutrition consult for management of tube feedings #Osteoporosis - c/w home vitamin D/Calcium #Depression #Anxiety #Delirium - c/w home sertraline - c/w home suvorexant - c/w home seroquel Diet: No diet orders on file Tubes/lines: PIV VTE prophylaxis: held pending procedure Code status: Full Code Disposition: Uncertain The above plan of care was discussed with Dr. Vivas, HIM pre owned sales consultant. I personally spent a total of 55 minutes providing and coordinating care today. * Dean Whitten M.B.B.S., M.S. - 08/20/2023 7:11 PM CDT ADMISSION HISTORY & PHYSICAL EXAM [facility] Medicine 3 Service SUBJECTIVE Ms. Jacqueline Galvan is a 68 y.o. female who presents with abdominal pain. Past medical history: ESRD Secondary to unspecified glomerulonephritis s/p Kidney transplant (2007) Complicated by allograft failure S/p second living unrelated kidney transplant (2017), on MMF, prednisone, tacrolimus Coronary artery diseaese s/p PCI (2005) AAA Osteoporosis Hypertension Hyperlipidemia Chronic mesenteric ieschemia Malnutrition s/p gastrostomy tube insertion History of Presenting Illness: Long and complicated hospitalization from May 08, 2023 to July 16, 2023 at Initially admitted with abdominal pain, unintentional weight loss (felt to be related to chronic mesenteric ischemia), and PEDRITO Underwent radiologically guided gastrostomy tube placement on May 17, 2023, complicated by gastric perforation necessitating intensive care admission Course was further complicated by fungal chest infection, difficulty up titrating tube feeds, renaldysfunction, and Pseudomonas urinary tract infection Multiple goals of care discussions had, eventual plan was to transition to DNR/DNI Eventually was discharged back to home as per family wishes Since hospital discharge, she has been at home receiving home cares. She is apparently gained 12 lbsince being discharged from [place] Has been receiving wound care 3 times weekly for wound sustained following her fall during her lastadmission Attended outside hospital with abdominal pain and fever Found to have bilateral effusions, cholecystitis Local hospital was unable to place percutaneous cholecystostomy tube Started on Zosyn and Vancomycin and transferred to [facility] for further management Family requested patient to be full code, decision made to transfer to for percutaneous cholecystostomy tube placement Social History: Living situation: Lives at home with , gets home care Alcohol: Denies Smoking: Denies Vitals: Blood pressure 94/56, heart rate 68, respiration 20, requiring 3 L of nasal cannula oxygen, temperature 36.9?? Labs: Hemoglobin 9.2, white cell count 16.9, INR 1.6, sodium 135, potassium 5.7, chloride 102, bicarbonate 18, BUN 38, creatinine 1.88 On the Floor: Lying in bed, appears tired but comfortable. Mentions that she has received a lot of morphine is somewhat drowsy because of this OBJECTIVE VITALS There were no vitals taken for this visit. PHYSICAL EXAM General: Elderly female, appears cachectic Peripheries: Warm, well perfused, weak radial pulses bilaterally Cardiovascular: Heart sounds 1 and 2 heard, no murmurs appreciated. JVP elevated to the angle of the jaw with giant V-waves Respiratory: Chest clear to auscultation Abdomen: Soft, nontender to palpation. Large abdominal wall defect appreciated in the left lower quadrant with easily reducible intestinal contents palpated. Gastrostomy tube in-situ Lower extremities: No peripheral pitting edema LABORATORY RESULTS I have reviewed the relevant laboratory and diagnostic studies since presentation. ASSESSMENT / PLAN # ESRD s/p renal allograft (2017), on MMF, prednisone, tacrolimus # Chronic kidney disease stage 3 # PEDRITO stage I on CKD # Coronary artery diseaes # Chronic mesenteric ischemia # Anemia of chronic disease # Tricuspid regurgitation # Severe preipheral arterial disease # Cholecystitis # History of pseudomonas UTI # Hyperkalemia Ms. Galvan is a 68 y.o. female with cholecystitis who was transferred for consideration of percutaneous cholecystostomy tube. Regarding her cholecystitis, right now I do not feel that she needs an emergent percutaneous cholecystostomy tube. She may be a candidate for internal drainage, and was open to this idea when we discussed it, so will plan to consult hepatobiliary to assess for endoscopic transcystic gallbladder drainage. We will keep her NPO from midnight, continue Zosyn (given history of Enterococcus abdominal infections and multiple Pseudomonas UTIs) and take off vancomycin. She has an acute kidney injury, and on examination she appears volume overloaded. Given her hyperkalemia, diurese further with 100 mg IV Lasix. Will consult Nephrology and perform an allograft ultrasound to rule out vascular/ureteral disease of her allograft. Otherwise, once her cholecystitis has been managed, hopefully she will be able to discharge back home with home health or potentially to a facility for rehab PLAN Zosyn 100mg IV Lasix If unstable overnight --> IR guided percutaneous cholecystostomy If well, GI consult for consideration of ERCP-guided transcystic stent tomorrow Urinalysis Nephrology consult Renal allograft ultrasound External abdominal US/CT overread Continue current immunosuppression for now DVT: heparin Lines: PIV, gastrostomy Diet: NPO at midnight Code: FULL (Discussed) Dispo: Home with home health vs SNF This is a supervisory note for Dr. Rhoades. Please refer to their documentation for additional details. The case will be staffed with the Medicine 3 pre owned sales consultant within 24 hours. [place] [phone] with any questions. Padmaja Romero.B.S., M.S. Internal Medicine, PGY-3 #[id number] documented in this encounter Procedure Notes * Nery Johnson M.D., M.H.P.E. - 08/29/2023 3:27 PM CDTAssociated Order(s): Thoracentesis Post-Procedure Diagnose(s): Effusion Pleural Thoracentesis Performed by: Estephanie Lewis M.D. Authorized by: Nery Johnson M.D., M.H.P.E. Care team members present 1. Estephanie Lewis M.D. 3. Nery Johnson M.D., M.H.P.E. PROCEDURE DETAILS Patient position: sitting Location: left posterior Puncture method: pazf-vpu-oskodf catheter Number of attempts: 1 Drainage characteristics: serous Estimated amount of fluid removed (ml): 600 Ultrasound image guidance used to localize target, [...] fellow participated in the procedure, and the pre owned sales consultant was present for the entire procedure. * Nery Johnson M.D., M.H.P.E. - 08/28/2023 3:22 PM CDTAssociated Order(s): Thoracentesis Post-Procedure Diagnose(s): Effusion Pleural Thoracentesis Performed by: Zaida Fleming M.D. Authorized by: Nery Johnson M.D., M.H.P.E. Care team members present 1. Zaida Fleming M.D. 3. Nery Johnson M.D., M.H.P.E. PROCEDURE DETAILS Patient position: sitting Location: right posterior Intercostal space: 10th Puncture method: kwew-hfe-zaefos catheter Number of attempts: 1 Drainage characteristics: serous Estimated amount of fluid removed (ml): 525 Ultrasound image guidance used to localize target, identify at risk structures, and dynamically used to direct therapy to the target. Image(s) acquired and saved. Additional procedure details: Preprocedure US demonstrated moderate bilateral pleural effusions. Weelected to tap the right side today. We [...] fellow participated in the procedure, and the pre owned sales consultant was present for the entire procedure. * Jim Ge M.D. - 08/24/2023 1:49 PM CDTAssociated Order(s): Thoracentesis Post-Procedure Diagnose(s): Effusion Pleural Thoracentesis Performed by: Jim Ge M.D. Authorized by: Citlaly Jefferson M.D. Care team members present 1. Citlaly Jefferson M.D. PROCEDURE DETAILS Patient position: sitting Intercostal space: 7th Puncture method: lkld-ycq-trfzbq catheter Number of attempts: 1 Drainage characteristics: serous Estimated amount of fluid removed (ml): 900 Ultrasound image guidance used to localize target, identify at risk structures, and dynamically used to direct therapy to the target. Image(s) acquired and saved. Additional procedure details: Pre procedural ultrasound demarcation and exploration was performed. The intercostal arteries had the usual anatomic position underneath the superior rib. After informedconsent, a procedural pause was completed verifying correct patient, procedure, site, and position.The patient was positioned in the upright position. Ultrasound was used to locate a suitable pocketof pleural fluid. The site was marked. The patient's right side was prepped and draped in sterile fashion. Lidocaine 1% was used to anesthetize the skin, subcutaneous tract, and pleura over the rib. A 5.0 Fr Likeeds catheter was advanced over the rib along the previously anesthetized track and advanced over the needle until a flash of pleural fluid was seen. Approximately 900 mL of serous fluid was removed until no further fluid flowed. A bandage was applied. Postprocedure ultrasound showed minimal fluid remaining in the pleural cavity, pleural separation <5 mm, and an lateral lung slide observed. Pleural fluid sent for analysis and indicated studies. The patient tolerated the procedure well without difficulty [...] POST-PROCEDURE DETAILS Post-procedure chest x-ray performed: yes X-ray findings: pending Complications: no apparent complications ATTESTATION STATEMENT A resident or fellow participated in the procedure, and the pre owned sales consultant was present for the entire procedure. Associated attestation - Citlaly Jefferson M.D. - 08/24/2023 3:11 PM CDT I was present for the entirety of the procedure. * David Torres M.D. - 08/22/2023 5:23 PM CDT PATIENT DISPOSITION Return to inpatient bed. POST-PROCEDURE DIAGNOSIS Acute cholecystitis PROCEDURE PERFORMED AND DESCRIPTION Placement of 10F percutaneous cholecystostomy tube. PROCEDURE DETAILS See Radiology Report SPECIMENS REMOVED None FINDINGS See report PRIMARY PROCEDURALIST David Torres MD ASSISTANTS none COMPLICATIONS None. DRAINS None. IMPLANTS None. ANESTHESIA MAC. FLUIDS 0 ESTIMATED BLOOD LOSS <5ml CURRENT MEDICATIONS No Medication Changes FOLLOW-UP LETTER None. MAY RETURN TO WORK Not applicable PATIENT INSTRUCTIONS Routine exchange in 3 months * Estephanie Lewis M.D. - 08/22/2023 11:45 AM CDTAssociated Order(s): Thoracentesis Post-Procedure Diagnose(s): Effusion Pleural; Malnutrition Severe Protein- Calorie (HCC) Thoracentesis Performed by: Estephanie Lewis M.D. Authorized by: Estephanie Lewis M.D. Care team members present 1. Estephanie Lewis M.D. 2. Cris Gracia M.D. PROCEDURE DETAILS Patient position: sitting Location: left posterior axillary Intercostal space: 9th Puncture method: rmrf-sam-zsorlg catheter Number of attempts: 1 Drainage characteristics: serous Estimated amount of fluid removed (ml): 900 Ultrasound image guidance used to localize target, identify at risk structures, and dynamically used to direct therapy to the target. Image(s) acquired and saved. Additional procedure details: Safe Pocket identified in the Left Posterior Axilla at the 9th rib space. Lidociane 1% infiltrated into subcutaneous tissues. Long Yueh Catheter with needle advanced 1.5cm with obvious serous fluid noted in the syringe. Catheter then advanced without issues. Bacterial culture samples collected. Rest of pleural effusion drained till patient began coughing. Decision made to stop at that time. Post-thoracentesis ultrasound demonstrated small collection left over but otherwise lung sliding and expansion of L lung. CONSENT Consent obtained: written (Risks, benefits and [...] Procedure purpose: therapeutic Indications: benign pleural effusion SEDATION / ANESTHESIA Anesthesia method: local infiltration Local infiltrate type: lidocaine POST-PROCEDURE DETAILS Post-procedure chest x-ray performed: yes X-ray findings: pending Procedure successful: yes Complications: no apparent complications Associated attestation - Cris Gracia M.D. - 08/23/2023 11:50 AM CDT I was present for the procedure. documented in this encounter Consult Notes * Clover Bedoya M.S., RDN, LD - 08/30/2023 11:05 AM CDTAssociated Order(s): IP CONSULT TO DIETITIAN Nutrition Support Service Patient evaluated by Nutrition Support Service with Dr. Roberts and Dr. Valdez. Our team was consulted for tube feeding intolerance in the setting of severe malnutrition. Zenon is well known to our team. Since her acute issue has resolved, her tolerance to enteral nutrition has returned. She resumed tube feeds yesterday at 10 mL/hr; also had a little food at lunchtime. This morning she is at 20 mL/hr with minimal nausea. SUBJECTIVE Ms. Galvan is a 68 y.o. female admitted for management of acute cholecystitis s/p percutaneous cholecystostomy drain placed 08/22/2023. PMH: ESRD secondary to unspecified glomerular nephritis s/p left renal transplant x 2 (2006, 2016) CAD s/p PCI (2005), AAA, osteoporosis, malnutrition and mesenteric ischemia. Current Nutrition (in hospital): Oral Intake: As tolerated. PO improved 08/28; no issues with tolerance. Enteral Support: Had severe nausea early in admission which resulted in feeds being held and NSS consulted. On 08/28, she was feeling much better so trickle tube feeds with her home formula was started. On 08/29, tube feeds up to 20 mL/hr with minimal nausea. GI Tubes (Adults) Percutaneous endoscopic;Gastrostomy 14 Fr Left;Lower;Quadrant (abdomen) (Active) Placement Date/Time: 08/21/23 1439 GI Tube Type: Percutaneous endoscopic;Gastrostomy Low Profile? :No Balloon, Bumper, or Other?: Balloon Volume: 5 mL GI Tube Size: 14 Fr Length (cm): 3.5 cm Tube Location: Left;Lower;Quadrant (abdomen... Nutrition History (prior to hospital): Patient was recently admitted 05/08/23-07/16/23 for abdominal pain and unintentional weight loss alongwith acute kidney injury and chronic mesenteric ischemia. She had severe malnutrition and PEG tube was placed on 05/17/23 which was unfortunately complicated by gastric perforation necessitating ICU care. She had difficulties with uptitrating tube feeds. NSS team followed throughout admission. HEN following and coordinated home tube feeding supplies through [facility]. She continues on enteral nutrition at home with Peptamen 1.5 via gravity bag with 250 mL boluses TID for a total of 1125kcal and 51 g protien. She does eat at home but family notes it is very little of a variety of foods like pancakes, hamburgers, etc. They estimate she takes no more than 500- 600 kcal/day. She does use Creon with all food intake and tube feeds. OBJECTIVE Pertinent Labs: Last 3 results Lab Units 08/30/23 0742 08/29/23 0758 08/28/23 0740 SODIUM mmol/L 134* 135 135 POTASSIUM mmol/L 4.5 4.5 4.5 CHLORIDE mmol/L 94* 96* 95* BUN mg/dL 36* 34* 40* CREATININE mg/dL 1.58* 1.35* 1.34* PHOSPHORUS INORGANIC mg/dL 3.8 3.8 3.3 CALCIUM mg/dL 9.2 9.5 9.3 MAGNESIUM mg/dL 1.9 2.0 2.1 Scheduled Medications: acetaminophen, 500 mg, oral, 4x Daily amiodarone, 200 mg, oral, Daily amLODIPine, 10 mg, oral, Daily atorvastatin, 80 mg, oral, Daily at bedtime bumetanide, 4 mg, oral, BID cholecalciferol, 25 mcg, oral, Daily tqeaxk-ahenyvux-fzmzrnh, 36,000 Units of lipase, oral, TID with meals multivitamin/mineral-adult, 1 tablet, oral, Daily pantoprazole, 40 mg, oral, BID before breakfast and dinner predniSONE, 5 mg, oral, Daily selenium, 150 mcg, oral, Daily sennosides-docusate sodium, 1 tablet, oral, BID sertraline, 25 mg, oral, Daily tacrolimus, 0.6 mg, gastric tube, BID zinc sulfate, 220 mg, oral, BID with meals Continuous Infusions: Current nutrition orders: Current Diet No oral nutrition, no tube feeding starting at 08/29 2384 Malnutrition Assessment Severe Malnutrition The patient does meet the ASPEN Criteria of malnutrition based on: Energy Intake: No Change Interpretation of Weight Loss: No Change Body Fat: Severe Loss Muscle Mass: Severe Loss Fluid Accumulation: Absent Reduced Citrus Picker Strength: Not applicable This is in the context of Chronic Illness. Anthropometrics: Height: 165.1 cm Admission Weight: 44.1 kg (08/20/2023) Current Weight: 41.6 kg [place] Body Weight (Calculated) : 56.9 kg BMI (Calculated): 15.3 kg/m?? Weight change since admission: -2.5 kg Weight Change History: Weight has been slowly uptrending over the past month. Family confirms that patient has been able to gain weight at home Estimated Needs: Total Calorie Needs: 3013-1146 calories/day Method to Estimate Energy Needs: kcal/kg (30-35 kcal/kg) Weight Used for Equation Calculations: 41.6 kg Total Protein Needs: 42 - 50 grams/day Method to Estimate Protein Needs (g/kg): 1 - 1.2 gm/kg Weight Used to Calculate Protein Needs (Kg): 41.6 kg Nutrition Diagnosis: Altered GI function related to history of mesenteric insufficiency and pancreatic atrophy as evidenced by need for enteral support with pancreatic enzymes. Nutrition Diagnosis Reassessment: Ongoing Nutrition Plan/Monitoring/Evaluation: Interventions: Enteral nutrition, Vitamin and mineral supplements Monitoring: Meals/Supplement Intake, Weight Status, Enteral, Skin Integrity, Wound Healing, Fluid Balance, Pertinent Labs, Chewing/Swallowing, Nausea/Vomiting/Diarrhea ASSESSMENT / PLAN RECOMMENDATIONS: Continue current tube feeding program while in the hospital: Method: Continuous (24 hours/day) via G-tube Formula: Peptamen 1.5 Start Rate: 20 mL/hr; advancing 10 mL/hr every 12 hours Goal Rate: 30 mL/hour over 24 hours Water Flushes: 30 mL QID for patency Provides: 1080 calories, 49 grams protein and 720 mL per day to supplement PO 2. Continue regular diet as tolerated. 3. For home, can resume same tube feeding program of Peptamen 1.5 250 mL TID. If patient does not eat, then family give her a bolus feeding. 4. Continue Creon pancreatic enzymes with PO and TF at home. 5. Nutrition section of dismissal summary completed. Please refer to Dr. Valdez's note for further comments. Nutrition Support Service ([facility]) will continue to follow. Page [phone] with questions. * Rhoda Roberts M.D. - 08/28/2023 12:23 PM CDTAssociated Order(s): Nutrition support service consult (hospital) Nutrition Support Service Consultation REFERRAL: Nutrition support service consult ([facility]) Referring Provider: Gabrielle Hernandez M.D. SUBJECTIVE CHIEF COMPLAINT/REASON FOR VISIT Jacqueline Galvan is a 68 y.o. female who presents for evaluation of nutrition. HISTORY OF PRESENT ILLNESS 68 year old female post renal transplant times two, CAD, mesenteric ischemia admitted with acute cholecystitis post 08/21 placement of cholecystostomy drain. She had been admitted with sepsis due to cholecystitis and respiratory failure due to volume overload. Dietitian note 08/26 reports inability of patient to tolerate bolus feeds using Peptamen by PEG. Continuous feeding recommended with q 4 hour Creon dosing. On zinc sulfate 220 mg daily, selenium 150 mcg daily and therapeutic multivitamin (or dialyvite). A fib not on anticoagulation. Had routine exchange PEG on 08/21/23. Abdominal film 08/05 no bowel obstruction. Neph recommended Budesonide and net even fluid status. In past NSS estimated dry weight at 30 to 35 kg. Height 165 cm, admit weight 44 kg on 08/20/23. Data: cystatin 21, zinc 44 (08/23), copper 121, selenium 82 The following portions of the patient's history were reviewed and updated as appropriate: allergies, current medications, family history, medical history, social history, surgical history, problem list. REVIEW OF SYSTEMS Pertinent positives are in HPI and remainder of the Review of Systems is negative. NUTRITION NEEDS: Height: 165.1 cm Admission Weight: 44.1 kg (08/20/2023) Current Weight: 41.6 kg BMI (Calculated): 15.3 kg/m?? Total Calorie Needs: 7345-2251 calories/day Method to Estimate Energy Needs: kcal/kg ( ) Weight Used for Equation Calculations: 45.1 kg Total Protein Needs: 54 - 68 grams/day Method to Estimate Protein Needs (g/kg): 1.2 - 1.5 gm/kg Weight Used to Calculate Protein Needs (Kg): 45.1 kg Results from last 7 days Lab Units 08/28/23 0740 SODIUM mmol/L 135 CHLORIDE mmol/L 95* CREATININE mg/dL 1.34* ESTIMATED GFR EGFR mL/min/BSA 43* BUN mg/dL 40* GLUCOSE S mg/dL 99 CALCIUM mg/dL 9.3 MAGNESIUM mg/dL 2.1 PHOSPHORUS INORGANIC mg/dL 3.3 ALBUMIN g/dL 3.4* 3.4* BILIRUBIN TOTAL mg/dL 0.4 ALK PHOS U/L 111* ALT U/L 23 AST U/L 22 OBJECTIVE PHYSICAL EXAMINATION Physical Exam General: Nauseated Ext: No edema Skin: Thin Neuro: Alert ASSESSMENT / PLAN I reviewed the patient's notes, clinical status, nutrition program and lab data. Nutrition Support Service was asked to advise on nutrition. Talked to team; will await additional studies. Patient had been doing well with tube feeding and limited oral intake until a few days ago. Could stop selenium and administer double vitamin for replacement please increase zinc to twice daily. NSS will follow. #1 Transplant Renal (HCC) #2 Malnutrition Severe Protein-Calorie (HCC) #3 Cholecystitis #4 Hyperkalemia Thank you for the consultation. Please page [facility] ([phone]) or [facility] ([phone]) Nutrition Support Service pager with questions. * Rose Fuentes O.T., [facility] - 08/24/2023 2:18 PM CDT Occupational Therapy Acute Hospital Inpatient Evaluation/Treatment SUBJECTIVE Patient's Name: Jacqueline Galvan Referring/Attending Provider: Cris Gracia M.D. Reason for Referral: Occupational Therapy Evaluation [...] who was admitted to [facility] in [place] on 08/20/2023 for Cholecystitis [K81.9]. Relevant Medical History: 68 y.o. female who was admitted to [facility] in [place] on 08/20/2023 for Cholecystitis s/p ERCP, PEG/J, thoracentesis 08/21/23 & thoracentesis 08/22/23 & 08/23/23. Precautions Other Precautions: respiratory (3L NC), R biliary tube, cognition/delirium, fall Falls screen: Fall in the last 12 months: Yes (during last hospitalization, fell out of bed) Did you have an injury with the fall: Yes (forehead wound) Are you fearful of falling: Yes Pain Assessment: Pain Rating: buttocks pain while seated in chair, pillows under patient while awaiting for Roho to be delivered. Subjective Comments: Agreeable to therapy session with encouragement. Team Communication: The patient's status was discussed and coordination of care occurred with RN, PT Family/Caregiver Present: and 2 other family members Co-treat with physical therapy as patient benefits from 2 skilled therapists present in order to optimize safety and progression of mobility and self-care skills. Home Living and Equipment: Lives with: Spouse/Significant other Receives help from: Family Type of Home: House Home Layout: Multi-Level Home Access: Stairs to enter: Number of steps: 5, Railing: right handrail vs. Ramp? Bathroom Accessibility: Shower: Walk-in Shower Toilet: Standard Toilet Assistive Device Owned: Front wheeled walker Adaptive Equipment Owned: Asp Net Developer Other DME Owned: Hospital Bed Home Living Comments: follow up to see if patient/family obtained bathroom DME recommended last hospitalization Prior Level of Function and Mobility: Basic Activities of Daily Living: Independent Instrumental Activities of Daily Living: Independent Functional Mobility: Independent Driving: Yes Patient/Caregiver Goals: Discharge home OBJECTIVE Vital Signs: Pre-activity: Pulse rate: 57 bpm, O2 sats: 96%, O2 flow: 3 L/min nasal cannula, and Respiratory Rate:16 Vitals stable with activity. Evaluation Assessment: STRENGTH: Not formally assessed but appears within functional limits based on observation RANGE OF MOTION: Upper extremities within functional limits BALANCE: Static Sitting: Good (Maintains balance without support) Dynamic Sitting: Good (Maintains balance without support) Static Standing: Fair (Maintains balance with handheld assist) Dynamic Standing: Fair (Maintains balance with handheld assist) ACTIVITY TOLERANCE: Endurance: Tolerates 10-20 minutes of activity HEARING/VISION: Hearing: Hearing Intact Baseline Vision/Correction: Wears glasses only for reading DOMINANT HAND: Right Outcome Measures: AM-PAC Inpatient Short Form: Putting on and taking off regular lower body clothing?: A Little Putting on and taking off regular upper body clothing?: A Little Taking care of personal grooming such as brushing teeth?: None Bathing (including washing, rinsing, drying)?: A Little Toileting, which includes using toilet, bedpan, or urinal?: A Little Eating meals?: None Daily Activities Raw Score [...] be scored without physically performing each activity) O Log: The Orientation Log is a quick, quantitative measure of orientation status to place, time, and circumstance. The O-Log can be used for serial assessment of orientation to document changes overtime. A score of 25 or higher is associated with normal orientation, however does not evaluate executive function. Score Breakdown: City: 06/[address]: 07/06 Name of Hospital: 07/06 Month: 07/06 Date: 06/08 Year: 07/06 Day of the Week: 07/06 Clock Time: 06/08 Etiology/Event: 0/3 Pathology Deficits: 2 Total Score: 23/30 Cognition: Will further assess and monitor as warranted Cognitive Deficits: Impaired attention, Impaired command following (approximately 80%) Therapeutic Interventions: ACTIVITIES OF DAILY LIVING: GROOMING - Assist Level: Maximal Assist - Patient Location: Chair - Activity: Combing hair - Therapist Delivery: assessed, assisted, facilitated - Assist/Cues: assistance for thoroughness - patient demonstrating sufficient reach to comb hair, however due to extensive tangles required increased time and maximal assistance to complete LOWER BODY DRESSING - Assist Level: Supervision/Set-up - Patient Location: Chair - LB Dressing Item: socks - Therapist Delivery: assessed - Assist/Cues: none BED MOBILITY AND FUNCTIONAL TRANSFERS: Completed with PT, see their note for details. Education/Training Provided: Provided education on role of occupational therapy in the acute setting. Collaborated with patient and/or family on goals and plan of care. Activity Recommendations During Hospitalization: Patient educated on importance of activity and mobility to improve pulmonary function/hygiene, activity tolerance, strength, and overall well-being while in the hospital setting. - Eat ALL meals in chair - Active engagement in daily self-care routine (oral cares, face washing, etc.) - Active engagement in leisure tasks as appropriate/safe (reading, music, games/cards, etc.) - Maintain typical day/night routine and incorporate sleep hygiene strategies - Transfer into chair 3-5x/day Patient was left in bedside chair at end of session with call light in reach, all needs met and questions answered. Assessment Discharge Therapy Needs - OT: Ongoing skilled occupational therapy (pending progress) Skilled therapy can include occupational therapy provided in home health, outpatient or post-acute facility. The location of these services is determined by patient's care team in partnership with patient/family. Barriers to Discharge Home: Current functional status, Fall risk, Safety concerns Level of Care Needed - OT: Assistance with toilet/shower transfers, Assistance with medication set up/administration, Assistance with showering/bathing, Assistance with meal preparation, Assistance with junior financial analyst, Assistance with transportation, Assistance with housekeeping, Assistance with shopping, Assistance with dressing, Assistance with toileting, Physical assistance needed, Cognitive assistance needed Clinical Impression: Currently, patient presents with impairments including impaired balance, cardiopulmonary impairments, cognitive deficits, and safety concerns resulting in functional deficits including impaired functional mobility and decreased independence with self care tasks. Since Zenon's dismissal last month, she was at home living independently with her , had transitioned away from the walker. Currently, she requires supervision to minimal assistance to complete seated self-cares and minimal assistance to pivot. She scored 23/30 on the orientation log which indicated disorientation. Anticipate that with continued skilled acute OT services, she will progress towards her previous level of functioning. She may benefit from low intensity post acute OT services upon dismissal pending further progress. Activity Recommendations: - Delirium prevention - Chair 3x day - Walk with nursing 3-4x day - Use commode // Walk to bathroom for toileting - ROM upper and lower extremities 3x/day - Active participation in ADLs (oral cares, toileting, dressing etc) - PT/OT Current Assist: x 1 short distance with FWW and chair follow Plan OT Plan Comments: Next session: standing grooming, toileting, olog/coglog, CAM Functional Goals: OT Goal #1: Patient will complete toileting (transfer, ebony cares, clothing management) with modified independence to return to prior level of functioning. OT Goal #1 Status: Progressing OT Goal #2: Patient will complete standing activities of daily living/simple instrumental activities of daily living > 5 minutes with modified independence to return to previous level of functioning. OT Goal #2 Status: Slowly progressing OT Goal #3: Patient will complete full body dressing including clothing retrieval with modified independence to return to prior level of functioning. OT Goal #3 Status: Progressing OT Goal #4: Patient will verbalize understanding of energy conservation techniques, fall preventionstrategies, and DME recommendations to ensure independence and safety at dismissal. OT Goal #4 Status: Ongoing Progress: Progressing toward goals Rehab potential: Ms. Galvan has good potential to achieve established occupational therapy goals within the time frame outlined below. OT Frequency: OT Amount: 1 visit per day OT Frequency: 5 times per week OT Inpatient Duration : Until goals are met or hospital discharge Requires Inpatient OT Follow-Up: Yes OT - Next Inpatient Appointment: 08/26/23 Plan: Plan of care initiated Treatment interventions may include: Treatment Interventions: Therapeutic exercise, Therapeutic functional activity, Self-care/home management, Cognitive skills training Occupational Therapy Attestation Statement: Patient unable to verbalize agreement to the plan of care and goals due to mental status or level of consciousness, but family members present to consult and agree with the plan as stated above. Billing: Tiered OT Evaluation Codes: Personal Factors: Balance impairment, Sedentary lifestyle, Needs assistive device, Motivation level, Emotional status, Age Occupational Profile and History review: Expanded Performance Deficits: 3 - 5 performance deficits Evaluation Complexity: Moderate Time Spent with Patient Evaluations OT Eval - Mod Complexity: 20 min Therapeutic Interventions Home Management Training (min): 18 min Time Tracking Total Timed Units (min): 18 min Total Treatment Time (min): 38 min Sharita Fuentes O.T., MOT * Velvet Kimball PGlory, D.P.T. - 08/24/2023 1:58 PM CDT Physical Therapy Inpatient Evaluation/Treatment SUBJECTIVE Patient's Name: Jacqueline Galvan Referring/Attending Provider: Cris Gracia M.D. Reason for Referral: Physical Therapy Evaluate [...] who was admitted to [facility] in [place] on 08/20/2023 for Cholecystitis [K81.9]. Relevant Medical History: 68 y.o. female who was admitted to [facility] in [place] on 08/20/2023 for Cholecystitis s/p ERCP, PEG tube replacement, thoracentesis 08/21/23 & thoracentesis08/22/23 & 08/23/23. Precautions Other Precautions: respiratory (3 NC), R biliary tube, PEG/J tube, cognition/delirium, fall RST PT/OT Falls screen: Fall in the last 12 months: Yes, at least 2 falls including on fall in hospital Did you have an injury with the fall: scalp hematoma, right knee abrasion Are you fearful of falling: Yes Home Living and Equipment: Lives With: Spouse ADL Assistance: Independent IADL/Homemaking Assistance: Independent Prior Mobility/Functional Transfers Level of [place]: Independent Home Equipment Home Adaptive Equipment: Asp Net Developer Other DME Equipment : Hospital bed, front wheeled walker Bathroom Equipment: None Home Living Type of Home: House Home Layout: Multi-level Home Access: Stairs to enter with rails vs. Ramp? Entrance Stairs: Rails: Right Bathroom Shower/Tub: Walk-in shower Bathroom Toilet: Standard Driving: Yes Occupational Role: Retired Pain Assessment: Pain Ratin/10 on a 0-10 point scale Patient/Caregiver Goals: No goals stated Subjective Comments: Nursing Family agreed to session. OBJECTIVE Vital Signs: Vitals taken during session: Pre Activity: Pulse rate: 58 bpm, Blood pressure: 130/67 mmHg, MAP: 86, O2 sats: 96%, O2 flow: 3 L/min nasal cannula, and Respiratory Rate:16 Vitals monitored throughout session; within normal ranges. Evaluation Assessments: Strength: Good to normal lower extremity strength Range of Motion: Lower extremities within functional limits Balance: Static Sitting: Good (Maintains balance without support) Static Standing: Fair (Maintains balance with handheld assist) Dynamic Standing: Fair (Maintains balance with handheld assist) Activity Tolerance: Endurance: Tolerates 10-20 minutes of activity Cognition: Alert, Oriented x person, place, month, year. Requiring repetition to complete one-step commands. Sensation/Perception: Sensation: Lower extremity sensation intact to light touch throughout Hearing: Hearing Intact Vision: Baseline Vision/Correction: Wears glasses only for reading Outcome Measures: -[facility] Inpatient Short Form: -[facility] Basic Mobility (V.2) How much help from another person do you currently need???If the patient hasn't done an activity recently, how much help from another person do you think he/she would needif he/she tried? 1. Turning from your back to your side while in a flat bed without using bedrails?: A Little 2. Moving from lying on your back to sitting on the side of a flat bed without using bedrails?: A Little 3. Moving to and from a bed to a chair (including a wheelchair)?: A Little 4. Standing up from a chair using your arms (e.g., wheelchair, or bedside chair)?: A Little 5. To walk in hospital room?: A Little 6. Climbing 3-5 steps with a railing?: Total -[facility] Basic Mobility (V.2) Raw Score: 16 -[facility] Basic Mobility (V.2) Standardized Score: 38.32 Interpretation: Based on scoring guidelines using the raw score value: Those going to home had an average score at or above 18 Those going to facility had an average score at or below 17 Clinicians answer the -[facility] Inpatient Short Form based on observed patient activity and/or clinical judgment (ie. patient can be scored without physically performing each activity) FSS-ICU: Rolling: Requires cueing but with no physical assist, may use assistive device (Supervision) Supine to sit transfer: Patient performs > or equal to 75% (Minimum Assist) Sit to stand transfer: Patient performs > or equal to 75% (Minimum Assist) Sitting edge of the bed: Requires cueing but with no physical assist, may use assistive device (Supervision) Walking/Wheelchair mobility: Walk/Propel < 50 feet with assist of 1 or any distance with assist of 2 persons (Total Assistance) Total: 19 Interpretation: Total score ranges from 0-35. Higher scores indicating better physical functioning.Higher FSS-ICU scores suggest a greater likelihood of return to home and lower scores suggest a greater likelihood of discharge to an inpatient rehabilitation facility, custodial acute care facility or alf facility. Therapeutic Interventions: ROLLING: Assistance Level: Supervision of 1 Device: bedrail Assistance/Cueing: verbal, tactile, and visual for Lower extremity placement, Sequencing, Technique, Upper extremity placement, and Upper extremity reaching Delivery: educated, instructed, assessed, and facilitated SUPINE TO SIT: Assistance Level: Minimal Assistance of 1 Device: bedrail Assistance/Cueing: verbal, tactile, and visual for Lower extremity placement, Sequencing, Technique, Trunk support, Upper extremity placement, and Upper extremity reaching Delivery: educated, instructed, assessed, facilitated, and assisted SCOOTING: Assistance Level: Supervision of 1 Surface: Bed Assistance/Cueing: verbal for Technique and scooting to edge of bed until feet flat on floor and hips square SIT TO STAND: Assistance Level: Minimal Assistance of 1, +1 for safety Device: gait belt and hand held assist Surface: Bed Assistance/Cueing: verbal, tactile, and visual for Anterior weight shifting, Lower extremity placement, Sequencing, Technique, Terminal hip extension, and Upper extremity placement Delivery: educated, instructed, assessed, facilitated, and assisted STAND TO SIT: Assistance Level: Minimal Assistance of 1, +1 for safety Device: gait belt and hand held assist Surface: Chair Assistance/Cueing: verbal, tactile, and visual for Alignment with seated surface, Eccentric control, Hip Flexion, Lower extremity placement, and Upper extremity placement Delivery: educated, instructed, assessed, facilitated, and assisted PRE-GAIT: Activity:Marching Assistance Level: Minimal Assistance of 1, +1 for safety Device: gait belt and hand held assist Assistance/Cueing:verbal, tactile, and visual for Upright Posture, Forward Looking, and foot clearance GAIT: Distance: .612 meters bed>chair Assistance Level:Minimal Assistance of 1, +1 for safety Device: gait belt and hand held assist Quality: decreased base of support, decreased gait speed, decreased heel strike, decreased step height, decreased step length, decreased toe off, downward gaze, steady Assistance/Cueing:verbal, tactile, and visual for Forward gaze, Increased step length, Sequencing, Technique, Upright posture, and Widened base of support Delivery: educated, instructed, assessed, facilitated, and assisted THERAPEUTIC EXERCISE: Standing Therapeutic Exercise: Side: bilateral, lower extremity(ies) Mode: active range of motion Exercises: Marching Repetitions: 3 Assist/cueing: Full range of motion and upright posture, foot clearance Education: -Role of PT in acute setting and collaborated with patient and/or family on goals and plan of care. -Safe transfer techniques -Delirium prevention -Review recommended activity goals/increase activity as tolerated The patient's status was discussed and the following coordination of care occurred with the RN and OT Co-treat with Occupational Therapy Patient benefitted from having 2 skilled therapists present in order to optimize mobility progression+safety with mobility. OT/PT addressed different goals within treatment session. Patient was left in bedside chair, with OT at end of session with call light in reach, all needs met and questions answered. Assessment Discharge Therapy Needs - PT: Ongoing skilled physical therapy Skilled therapy can include physical therapy provided by home health, outpatient clinic, or a post-acute facility. The location of these services is determined by the patient's care team in partnership with patient/family. Level of Care Needed - PT: Assistance with bed mobility, Assistance with transfers (Comment), Assistance with walking and moving around the home, Assistance with stairs, Physical assistance needed, Cognitive assistance needed Equipment Recommended - PT: Front-wheeled walker Patient [...] will be updated as appropriate. Clinical Impression: 68 y.o. female who was admitted to [facility] in [place] on 08/20/2023 for Cholecystitiss/p ERCP, PEG/J, thoracentesis 08/21/23 & thoracentesis 08/22/23 & 08/23/23. At baseline patient lives at home with her and was independent with mobility and ADLs without gait device. Patient currently requires supervision with rolling using bed rail, minimal assistance with supine> sit transfer using bed rail, minimal handhold/gait belt assist x1 with sit<> stand transfers and taking few steps from bed>chair. Recommended activity goals: -Delirium prevention/intervention measures -Chair 3x/day using front wheeled walker/gait belt assist x1 -Progress mobility with therapy, active participation in ADLs -Repositioning every 2 hours encouraging active patient participation Recommend delirium prevention/treatment measures including: -Promote family at bedside -Lights on/shades open during the day -Limiting sleep disturbances at night -Use of baseline vision/hearing devices(glasses, hearing aids) -Frequent reorientation -Promoting activity/mobility and daily routine throughout the day -Avoiding sedative medications -Avoid TV with exception to relaxation channel/light music unless patient requests. Currently, patient presents with decreased strength, increased pain, impaired static balance, impaired dynamic balance, decreased activity tolerance, decreased safety awareness, decreased cognition, and cardiopulmonary impairments resulting in the following impaired bed mobility, impaired transfers, impaired gait, and impaired ability to complete stairs. Physical therapy treatment is medically necessary to restore and maximize function, maximize safetyand facilitate discharge to home, teach and educate the patient and/or caregivers. Plan PT Plan Comments: Continue to progress functional mobility and lower extremity exercises appropriate. Continue to work on rolling/supine<> sit transfers/sit<> stand transfers and progressambulation initiating use of front wheeled walker increasing distance and frequency as tolerated with chair follow. Recommended activity goals: Delirium prevention/intervention measures, chair 3x/dayusing front wheeled walker/gait belt assist x1, progress [...] Progressing PT Goal #3: Patient will be independent/modified independent utilizing most appropriate gait deviceambulating a distance of 60 m to progress towards functional independence. PT Goal #3 Status: Slowly progressing Jacqueline Galvan has Good rehab potential to meet the expected outcomes in a reasonable period of time. Treatment Plan: Plan: Plan of care initiated PT Amount: 1 visit per day PT Frequency: 7 times per week PT Inpatient Duration : Until goals are met or hospital discharge Requires Inpatient Follow-Up: Yes PT - Next Inpatient Appointment: 08/25/23 Patient unable to verbalize agreement to the plan of care and goals due to mental status or level of consciousness, but family members present to consult and agree with the plan as stated above. Treatment interventions may include: Treatment/Interventions: Therapeutic exercise, Therapeutic functional activity, Gait training, Self-care/home management, Neuromuscular re-education Tiered PT Evaluation Codes: Comorbid Conditions: Cardiopulmonary disease, Renal disease Personal Factors: Balance impairment, Sedentary lifestyle, Needs assistive device, Motivation level, Emotional status, Age Examination elements: 4+ Clinical Presentation: Evolving Clinical Decision Making: Moderate complexity clinical decision making Billing: Time Spent with Patient Evaluations PT Eval - Mod Complexity: 10 min Therapeutic Interventions Therapeutic Activity (min): 8 min Time Tracking Total Timed Units (min): 8 min Total Treatment Time (min): 18 min Velvet Kimball P.T., NilsPMarlysTMarlys * John Topete M.D., Ph.D. - 08/23/2023 3:01 PM CDT SUBJECTIVE REASON FOR CONSULT Atrial fibrillation. HISTORY OF PRESENT ILLNESS I visited with Mrs. Galvan in her hospital room today, and I discussed her care with Dr. López. Please see Dr. López's note from today for further details regarding Mrs. Galvan's evaluation. Mrs. Galvan is a 68-year-old woman with a history of atrial fibrillation in 2014 in the setting of volume overload. She underwent percutaneous coronary intervention in 2004, and she is status postrenal transplantation on 2 occasions, most recently in 2017. She was recently diagnosed with acute cholecystitis. She underwent percutaneous cholecystostomy drain placement yesterday. Yesterday, she experienced episodes of atrial fibrillation and conversion transient bradycardia. ECG yesterday at 10 p.m. showed atrial fibrillation with a ventricular rate of 117 beats per minute. quitline counselor yesterday at 9:48 p.m. showed tachycardia termination followed by junctional bradycardia at approximately 30 beats per minute. She has had no further episodes of atrial fibrillation or severe bradycardia today. OBJECTIVE VITAL SIGNS Blood pressure 146/67, heart rate 77, temperature 36.8. DIAGNOSTICS Laboratory studies today are remarkable for hemoglobin of 8.3 and a white count of 14.9 with a normal serum potassium and a creatinine of 2.2. TSH approximately 1 month ago was normal. Transthoracic echocardiogram performed yesterday showed normal left ventricular chamber size and left ventricular ejection fraction of 66% with no regional wall motion abnormalities. There was a small circumferentia l pericardial effusion present. There was no severe valve disease noted. There was moderate to severe tricuspid regurgitation present. There was left atrial enlargement. ASSESSMENT / PLAN #1 Paroxysmal atrial fibrillation #2 Conversion bradycardia #3 Status post renal transplantation #4 Acute cholecystitis #5 Percutaneous cholecystostomy drain Mrs. Galvan's recent atrial fibrillation may have been triggered by her cholecystitis. Fortunately, she remains free of atrial fibrillation or severe bradycardia today. We recommended to Mrs. Galvan that we observed from the standpoint of her heart rhythm. She does not have a strong indication for antiarrhythmic drug therapy, catheter ablation, or pacemaker implantation at this time. She may benefit from consideration of anticoagulation for atrial fibrillation stroke prevention when this isfelt to be feasible from the standpoint of her acute cholecystitis and possible need for further invasive therapy for this. If atrial fibrillation continues to be bothersome, amiodarone could be considered. This would need to be approached cautiously, however, given Mrs. Galvan's multiple comorbidities. John Topete M.D., Ph.D. CT CT Job ID: [id number] * Cheyenne López M.D. - 08/23/2023 7:32 AM CDTAssociated Order(s): IP CONSULT TO CARDIOLOGY Images from the original note were not included. HEART RHYTHM CONSULT SERVICE - CONSULT NOTE Location: [place] [id number] [place] [address] Medicine 1 Hospital Day: 3 SUBJECTIVE REASON FOR CONSULT No chief complaint on file. HISTORY OF PRESENT ILLNESS Ms. Galvan is a 68 y.o. female with medical history significant for HFpEF LVEF 66% with the elevated filling pressure - August/2023 Paroxysmal Atrial Fibrillation Dx 2015 in the setting of fluid overload Not on rate control or OAC at home Query pulmonary hypertension RVSP 51 mmHg - August/2023 Moderate-severe tricuspid regurgitation CAD S/p remote PCI, unavailable records - 2004 Hypertension ESRD S/p renal transplant X 2, last 2017 Functioning transplant kidney The patient presented to an outside hospital with fever and workup showed acute cholecystitis, given her past medical history she was deemed a poor surgical candidate and was transferred to [facility]. TCGSevaluated the patient and deemed her not to be a surgical candidate, and a transcystic stent placement with the ERCP was recommended. The patient underwent ERCP on 08/20 and had a tight cystic duct and the stent could not be placed. The plan was for the patient to undergo percutaneous cholecystotomy drain placement on 08/21, however she developed hypoxic respiratory failure and was transferred tothe MICU. Subsequently later on 08/21 the patient underwent placement of the 10 Hungarian percutaneous cholecystostomy tube. Last night, the patient had no episodes of SVT, likely atrial fibrillation with conversion pauses and sinus node dysfunction. Heart rhythm Service were consulted for consideration of pacemaker. REVIEW OF SYSTEMS 12-point ROS was negative except for HPI OBJECTIVE SOCIAL HISTORY Social History Socioeconomic History Marital status: Spouse name: Not on file Number of children: Not on file Years of education: Not on file Highest education level: Not on file Occupational History Not on file Tobacco Use Smoking status: Light Smoker Smokeless tobacco: Never Substance and Sexual Activity Alcohol use: Not Currently Drug use: Never Sexual activity: Defer Other Topics Concern Not on file Social History Narrative Not on file Social Determinants of Health Food Insecurity: No Food Insecurity (08/20/2023) Hunger Vital Sign Worried About Running Out of Food in the Last Year: Never true Ran Out of Food in the Last Year: Never true Transportation Needs: No Transportation Needs (08/20/2023) PRAPARE - Transportation Lack of Transportation (Medical): No Lack of Transportation (Non-Medical): No Intimate Partner Violence: Not At Risk (08/20/2023) Humiliation, Afraid, Rape, and Kick questionnaire Fear of Current or Ex-Partner: No Emotionally Abused: No Physically Abused: No Sexually Abused: No Housing Stability: Low Risk (08/20/2023) Housing Stability Housing: Living Situation: I have a steady place to live MEDICATIONS Current Facility-Administered Medications: acetaminophen tablet 500 mg (TYLENOL), 500 mg, oral, 4x Daily, Akshat Rhoades M.D., 500 mg at 08/22/232002 aspirin chewable tablet 81 mg, 81 mg, oral, Daily, Ramirez Dawkins, Pharm.D., R.Ph., 81 mg at 08/22/23 0815 atorvastatin tablet 80 mg (LIPITOR), 80 mg, oral, Daily at bedtime, Ramirez Dawkins, Pharm.D.,R.Ph., 80 mg at 08/22/232002 benzocaine-menthoL 15-3.6 mg per lozenge 1 lozenge (CEPACOL), 1 lozenge, oral, PRN, Migel Koch M.D., 1 lozenge at 08/22/23233 cholecalciferol (vitamin D3) tablet 25 mcg, 25 mcg, oral, Daily, Akshat Rhoades M.D., 25 mcg at 08/22/2315 D10W bolus 125 mL, 12.5 g, intravenous, PRN, Jackson Hwang M.D. D10W bolus 250 mL, 25 g, intravenous, PRN, Jackson Hwang M.D. dextrose 40 % gel 15 g (GLUTOSE), 15 g, oral, PRN, Jackson Hwang M.D. diphenoxylate-atropine 2.5-0.025 mg/5 mL liquid 10 mL (LOMOTIL), 10 mL, oral, 4x Daily PRN, Elicia Godfrey, PharmMarlysDMarlys, R.Ph. glucagon injection 1 mg (GlucaGen), 1 mg, subcutaneous, Once PRN, Jackson Hwang M.D. glucagon injection 1 mg (GlucaGen), 1 mg, subcutaneous, Once PRN, Jackson Hwang M.D. glucose chewable tablet 16 g, 16 g, oral, PRN, Jackson Hwang M.D. HYDROmorphone (PF) injection 0.2 mg (DILAUDID), 0.2 mg, intravenous, Once, Patricia Sutton M.D. ipratropium-albuteroL 0.5-2.5 mg/3 mL nebulizer solution 3 mL (DUONEB), 3 mL, nebulization, Q6H PRN, Akshat Rhoades M.D., 3 mL at 08/22/23233 meropenem 500 mg in NaCl 0.9% IVPB (MERREM), 500 mg, intravenous, Q12H, Akshat Rhoades M.D., Last Rate: 100 mL/hr at 08/22/232206, 500 mg at 08/22/232206 lzggnkuvqjnv-fiad-UP-Ca-minerals 400 mcg (folic acid) tablet 1 tablet (THERAPEUTIC-M), 1 tablet, oral, Daily, Akshat Rhoades M.D., 1 tablet at 08/22/23814 nystatin 100,000 unit/gram powder 1 Application (NYSTOP), 1 Application, topical, BID, Patricia Sutton M.D., 1 Application at 08/22/232207 ondansetron (PF) injection 4 mg (ZOFRAN), 4 mg, intravenous, Once, John Monique M.D. ondansetron ODT disintegrating tablet 4 mg (ZOFRAN-ODT), 4 mg, oral, Q6H PRN, Akshat Rhoades M.D., 4 mg at 08/22/232304 pantoprazole DR tablet 40 mg (PROTONIX), 40 mg, oral, Daily before breakfast, Akshat Rhoades M.D., 40 mg at 08/23/23625 predniSONE tablet 5 mg (DELTASONE), 5 mg, oral, Daily, Akshat Rhoades M.D., 5 mg at 08/22/23814 sertraline tablet 25 mg (ZOLOFT), 25 mg, oral, Daily, Akshat Rhoades M.D., 25 mg at 08/22/23814 tacrolimus capsule 1.5 mg (PROGRAF), 1.5 mg, oral, BID, Ariel Karimi M.D., 1.5 mg at 08/22/232002 [Held by provider] torsemide tablet 100 mg (DEMADEX), 100 mg, oral, Daily, Akshat Rhoades M.D., 100 mg at 08/21/23 0928 VITAL SIGNS Temperature: [36.6 ??C-36.7 ??C] 36.7 ??C Heart Rate: [64-126] 76 Resp Rate: [12-28] 14 Blood Pressure: (77-150)/(42-93) 135/63 FiO2 (%): [60 %] 60 % SpO2: [85 %-100 %] 90 % Flow Rate (L/min): [4 L/min-45 L/min] 4 L/min Height: [155 cm] 155 cm Pulse Rate: [60-126] 77 PHYSICAL EXAMINATION General Appearance: Not in acute distress. Heart: Regular rate and rhythm. No murmurs. Lungs: Bilateral atrial air entry. No crackles or wheezing. Abdomen: Soft and nontender. Extremities: Not edematous. PERTINENT EKG/TELEMETRY EVENTS Telemetry strips on 08/21 11:00 p.m. showing Atrial Fibrillation with RVR and subsequent SND w/ escape junctional rhythm EKG on 08/21 10:00 p.m. showing Atrial Fibrillation with RVR ASSESSMENT / PLAN Paroxysmal atrial fibrillation Dx 2014 in the setting of fluid overload Not on rate control or OAC at home Sinus node dysfunction Conversion pauses with the escape junctional rate in the 30s Acute cholecystitis Percutaneous cholecystostomy drain 08/21 HFpEF LVEF 66% with the elevated filling pressure - August/2023 Query pulmonary hypertension RVSP 51 mmHg - August/2023 Moderate-severe tricuspid regurgitation CAD S/p remote PCI, unavailable records - 2004 Hypertension ESRD S/p renal transplant X 2, last 2017 Functioning transplant kidney Jacqueline Galvan is a 68 y.o. female with medical history as above who presented to the hospital with acute cholecystitis and underwent percutaneous cholecystostomy drain on 08/21. On 08/22 the patient had episodes of atrial fibrillation with rapid ventricular rate that were followed by conversion pauses with sinus node dysfunction and escape junctional rate in the 30s. The patient has a history of Atrial Fibrillation back in 2014 that was diagnosed in the setting of end-stage renal diseaseand hypovolemia. She has not been on anticoagulation or any rate control therapy since then. Yesterday, the patient had episodes of Afib w/ RVR that were followed by conversion pauses (2-3 sec) and junctional escape rhythm. She was symptomatic during the RVR episodes only which has not occurred since last night. Her burden is Afib is minimal and is mainly in acute illness. Additionally she's not a good candidate for any permanent device given active infection and so far there is no indication for a PPM anyways. RECOMMENDATIONS Monitor tele for now and no need for PPM If episodes will recur, we recommend discharging on 2-week MoMe and outpatient cardiology follow up The patient had a recurrent episode of Atrial Fibrillation with RVR Start consider oral amiodarone therapy with 400 mg TID for 10 days then 400 mg once daily for 30 days then 200 mg once daily after for a total of 3 months to minimize the burden of her Afib while she's acutely ill. Her CHADS-VASc score is elevated, consider oral anticoagulation. If apixaban will be chosen, you can consider the lower dose given advanced CKD and weight 45 kg. We sill sign off This case was discussed with pre owned sales consultant Dr. Topete. Please [place] [phone] with any questions or concerns. * Joe Winter M.D. 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 Assessment and plan -check tacrolimus level tomorrow -we will adjust the dose of tacrolimus based on her levels tomorrow -kidney function is at baseline maybe slightly higher -hyperkalemia secondary to possibly advanced kidney failure with kidney transplant requiring tacrolimus-----now resolved -discussed with the family as well as the ICU team in detail * Carla Granados RDN, NIYA - 08/22/2023 3:20 PM CDTAssociated Order(s): IP CONSULT TO DIETITIAN Clinical Nutrition: Reassessment Clinical Nutrition continues to follow patient for assessment of nutritional status and tube feeding recommendations/management SUBJECTIVE Ms. Galvan is a 68 y.o. female admitted for cholecystitis. She transferred to the intensive care unit on 08/22/2023 for hypoxemic respiratory failure. 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 Patient was sleeping during visit. Current Nutrition (since admission): NPO, no tube feeding since admit. Patient had ERCP with PEG replacement on 08/20. She remains NPO today for thoracentesis, TTE abd HIDA scan. She is not on any pressors at this time. Nutrition history: Patient was recently admitted 05/08/23-07/16/23 for abdominal pain and unintentional weight loss along with acute kidney injury and chronic mesenteric ischemia. She had severe malnutrition and PEG tube was placed on 05/17/23 which was unfortunately complicated by gastric perforation necessitating ICU care. She had difficulties with uptitrating tube feeds. NSS team followed throughout admission. HEN following and coordinated home tube feeding supplies through [facility]. She continues on enteral nutrition at home with Peptamen 1.5 via gravity bag with 250 mL boluses TID for a total of 1125 kcal and 51 g protein. She does eat at home but family notes it is very littleof a variety of foods like pancakes, hamburgers, etc. They estimate she takes no more than 500-600 kcal/day. She does use Creon with all food intake and tube feeds. Food Allergies: [facility] Nutrition education/counseling: Received home going tube feeding education for gastrostomy tube using gravity drip feeding method on 07/15. OBJECTIVE Current nutrition orders: Dietary Orders (From admission, onward) Start Ordered 08/22/23 0000 No oral nutrition, no tube feeding Diet effective midnight 08/21/23 1621 Tube information: GI Tubes (Adults) Percutaneous endoscopic;Gastrostomy 14 Fr Left;Lower;Quadrant (abdomen) (Active) Placement Date/Time: 08/21/23 1439 GI Tube Type: Percutaneous endoscopic;Gastrostomy Low Profile? :No Balloon, Bumper, or Other?: Balloon Balloon Volume: 5 mL GI Tube Size: 14 Fr Length (cm): 3.5 cmTube Location: Left;Lower;Quadrant (abdomen... Pertinent Labs: Latest Reference Range & Units 08/22/23 02:59 08/22/23 09:49 08/22/23 12:58 Sodium, S 135 - 145 mmol/L 135 - 145 mmol/L 134 (L) 134 (L) Sodium, P 135 - 145 mmol/L 137 Potassium, S 3.6 - 5.2 mmol/L 4.4 4.4 4.2 Potassium, P 3.6 - 5.2 mmol/L 3.9 Chloride, S 98 - 107 mmol/L 98 - 107 mmol/L 101 101 Chloride, P 98 - 107 mmol/L 102 Bicarbonate, S 22 - 29 mmol/L 22 - 29 mmol/L 18 (L) 18 (L) Bicarbonate, P 22 - 29 mmol/L 18 (L) Anion Gap 7 - 15 7 - 15 15 15 Anion Gap, P 7 - 15 17 (H) BUN (Blood Urea Nitrogen), S 6 - 21 mg/dL 6 - 21 mg/dL 43 (H) 44 (H) BUN (Blood Urea Nitrogen), P 6 - 21 mg/dL 46 (H) Creatinine 0.59 - 1.04 mg/dL 2.07 (H) 2.08 (H) 2.05 (H) Estimated GFR (eGFR) >=60 mL/min/BSA 25 (L) 25 (L) 26 (L) Calcium, Total, S 8.8 - 10.2 mg/dL 8.8 - 10.2 mg/dL 8.1 (L) 8.1 (L) Calcium, Total, P 8.8 - 10.2 mg/dL 8.5 (L) Glucose 70 - 100 mg/dL 78 Glucose, S 70 - 140 mg/dL 70 - 140 mg/dL 79 78 Glucose, P 70 - 140 mg/dL 83 Magnesium 1.7 - 2.3 mg/dL 1.9 2.0 Phosphorus (Inorganic), S 2.5 - 4.5 mg/dL 2.5 - 4.5 mg/dL 6.0 (H) 6.0 (H) (L): Data is abnormally low (H): Data is abnormally high GI Function: Last BM Date: 08/22/23 Integumentary/Wounds: Lines/Drains/Airways Wound Duration Wound 05/28/23 Pressure Injury Unstageable Coccyx 86 days Wound 06/30/23 Skin Tear Skin tear Type 2 (partial flap loss) Knee Anterior;Bilateral 52 days Wound 07/09/23 Hematoma Head (Comment) Right Forehead 44 days Wound 08/21/23 Knee Anterior;Right;Lower Multifactorial wound 1 day Wound 08/21/23 Skin Tear Skin tear Type 1 (No skin loss) Arm Anterior;Left;Upper 1 day Wound 08/21/23 Skin Tear Skin tear Type 1 (No skin loss) Arm Left;Upper;Anterior <1 day Medications: Scheduled Meds:acetaminophen, 500 mg, oral, 4x Daily aspirin, 81 mg, oral, Daily atorvastatin, 80 mg, oral, Daily at bedtime cholecalciferol, 25 mcg, oral, Daily heparin (porcine), 5,000 Units, subcutaneous, Q12H JORGE HYDROmorphone, 0.2 mg, intravenous, Once meropenem, 500 mg, intravenous, Q12H multivitamin/mineral-adult, 1 tablet, oral, Daily nystatin, 1 Application, topical, BID pantoprazole, 40 mg, oral, Daily before breakfast predniSONE, 5 mg, oral, Daily sertraline, 25 mg, oral, Daily tacrolimus, 1.5 mg, oral, BID [Held by provider] torsemide, 100 mg, oral, Daily Anthropometrics: Height: 155 cm Admission Weight: 44.1 kg (08/20/2023) Current Weight: 45.1 kg BMI (Calculated): 18.8 kg/m?? Weight change since admission: 1 kg Net IO Since Admission: -500 mL [08/22/23 1520] Weight history: Weight has been slowly uptrending over the past month. Family confirms that patienthas been able to gain weight at home. Per last admission, NSS had estimated her dry weight to be closer to 30-35 kg Wt Readings from Last 12 Encounters: 08/22/23 45.1 kg 07/15/23 43.7 kg 01/01/22 52.9 kg 01/05/21 62 kg 08/17/20 60.7 kg 08/21/19 59.3 kg 06/24/18 59 kg 06/24/18 60 kg 05/14/18 58.7 kg 05/13/18 58.4 kg 07/31/17 59.9 kg 07/04/17 59.5 kg Estimated Needs: Total Calorie Needs: 7501-3825 calories/day Method to Estimate Energy Needs: kcal/kg (25-30 kcal/kg) Weight Used for Equation Calculations: 45.1 kg Total Protein Needs: 54 - 68 grams/day (Method to Estimate Protein Needs (g/kg): 1.2 - 1.5 gm/kg) Weight Used to Calculate Protein Needs (Kg): 45.1 kg Nutrition Diagnosis: Altered GI function related to history of mesenteric insufficiency and pancreatic atrophy as evidenced by need for enteral support with pancreatic enzymes. Nutrition Diagnosis Reassessment: Ongoing Malnutrition Criteria: Malnutrition criteria not met (with current information) The patient does not meet the ASPEN Criteria of malnutrition based on: Energy Intake: No Change Interpretation of Weight Loss: No Change Body Fat: Unable to Assess Muscle Mass: Unable to Assess Fluid Accumulation: Absent Reduced Citrus Picker Strength: Not applicable This is in the context of Chronic Illness. ASSESSMENT / PLAN ASPEN Criteria Malnutrition Status: Malnutrition criteria not met Nutrition Intervention: Interventions: Enteral nutrition, Vitamin and mineral supplements. Recommendations: When safe to start tube feeds, recommend the following while in the ICU: Order the following consult: Provider to order tube feeding, dietitian to manage Start enteral nutrition: Peptamen 1.5 at 10 mL/hr and advance by 10 mL/hr every 12 hrs to goal rateof 35 mL/hour for 24 hours/day. Water flushes: 30 mL Q6H for tube patency; additional flushes per ICU team Enteral nutrition as recommended will provide 1260 total calories and 57 grams of protein and less than 100% of the Reference Daily Intake of vitamins and minerals per day (noted to be on therapeuticmultivitamin) Recommend pancreatic enzyme order of Creon 36,000 lipase units TID orally (~1000 lipase units/kg dry weight) if eating or Viokace 31,320 lipase units every 4 hours with continuous tube feeds once at goal rate Consider checking the following labs due to pressure injury/wound and history of deficiencies: Zinc, Vitamin A, Vitamin C, Copper, Selenium Albumin and ceruloplasmin to assist with interpretation. If lab results reveal deficiency, dietitian will follow up with replacement recommendations. Monitoring/Evaluation: Nutrition parameter to monitor: Meals/Supplement Intake, Weight Status, Enteral, Skin Integrity, Wound Healing, Fluid Balance, Pertinent Labs, Chewing/Swallowing, Nausea/Vomiting/Diarrhea Desired Outcome: Tolerate enteral nutrition at goal Patient Goal(s): Tolerate enteral nutrition at goal rate Clinical Nutrition will continue to follow. For questions about patient's nutritional care please contact pager [phone] on weekdays 07:30-16:00 or [phone] on weekends/holidays. * Carmelo Polo M.D. - 08/22/2023 11:50 AM CDTAssociated Order(s): Nephrology consult (hospital)- ICU [facility] Hospital Day 2 Nephrology consult (hospital)- ICU [facility] Referring Provider: Jackson Hwang M.D. Reason for Consult: Immunosuppression management (kidney transplant) SUBJECTIVE CHIEF COMPLAINT Cholecystitis HISTORY OF PRESENT ILLNESS Ms. Galvan is a 68 y.o. female who presents with acute cholecystitis. 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 She recently had a prolonged hospitalization in the setting of malnutrition and mesenteric ischemiawhere she had IR guided PEG placement that led to perforation where she had a debridement and woundVAC placement at that time. Nephrology followed her throughout that hospital stay while her weight was around 40 kg and opted for diuresis of 100 mg of torsemide to maintain urine output. She was ulti mately discharged to home on 07/16/2023 with ongoing skilled therapy. She presented at an outside hospital for fever, and imaging was suggestive of acute cholecystitis. She was deemed to be a poor surgical candidate and was transferred to [facility] for further interventions. She was initially on Zosyn but given history of resistance she was started on vancomycin and meropenem. She was noted to be hyperkalemic to 5.7 and given her history of renal transplant nephrology was consulted who recommended Lokelma and gentle hydration with improvement to 4.3. Surgery evaluated the patient in hospital and determined that she was not a surgical candidate now or in the foreseeable future given her previous ex lap. It was recommended to proceed with transcystic stent placement for destination therapy however during ERCP on 08/21/2023 it was noted that the patient had a tight cystic duct and so was unable to have a stent placed. Plan was for the patient to proceed with higher percutaneous cholecystostomy drain placement on 08/22/2023 however overnight on 08/20 the patient was noted to be hypoxic to the mid 80s requiring up to 10 L supplemental oxygen. An x-ray was obtained that demonstrated worsening left- sided pleural effusion and a large pericardial effusion. VBG at that time demonstrated pH 7.28 and She received 100 mg of IV Lasix. Her oxygen requirement improved back to her previous support of 5-6 L but then the morning of 08/21 she was noted to have increasing oxygen requirements again with heart rate up to the 120s-130s for which an WEAVING INSTRUCTOR was called. Given herincreasing oxygen requirements, increased heart rate and complicated course she was taken to the ICU further evaluation and management. Past Medical History: Diagnosis Date Chronic Kidney Disease NOS Coronary Artery Disease (Unspecified) stent placement Heart Failure NOS Hyperlipidemia Pain Abdominal NOS Shortness Of Breath Past Surgical History: Procedure Laterality Date APPLICATION WOUND VAC ABDOMEN N/A 05/19/2023 Procedure: APPLICATION WOUND VACUUM ABDOMEN; Surgeon: Jt Hoang M.D.; Location: [facility] OR DEBRIDEMENT AND IRRIGATION - ABDOMINAL WOUND N/A 05/29/2023 Procedure: SHARP EXCISION OF SKIN AND SUBCUTANEOUS TISSUE MEASURING 2 cm x15 cm FOR TOTAL AREA OF 30 cm squared, IRRIGATION ABDOMINAL WOUND, CLOSURE OVER 19 HONDURAN ROUND ALEKSANDRA DRAIN, SECONDARY SKIN CLOSURE WITH [...] table preparation of renal allograft with one REVIEW OF SYSTEMS Pertinent items are noted in HPI; all other review of systems was negative. OBJECTIVE Admission weight: 44.1 kg Weights for the past 120 hrs (Last 3 readings): Weight 08/22/23 0724 45.1 kg 08/20/23 2210 44.1 kg Intake/Output 08/20/23 0700 - 08/21/23 0659 08/21/23 0700 - 08/22/23 0659 08/22/23 0700 - 08/23/23 0659 Intake (ml) -- 1650 150 Output (ml) 237 935 2907 Net (ml) -250 750 -1050 VITAL SIGNS Temperature: [36 ??C-36.7 ??C] 36.6 ??C Heart Rate: [62-126] 122 Resp Rate: [12-27] 20 Blood Pressure: (96-146)/(49-108) 102/64 FiO2 (%): [60 %] 60 % SpO2: [82 %-98 %] 89 % Flow Rate (L/min): [5 L/min-45 L/min] 45 L/min Pulse Rate: [59-122] 118 PHYSICAL EXAMINATION General appearance: alert and interactive, pale, appears chronically ill DIAGNOSTICS Recent Labs 08/22/23 0949 08/22/23 0300 08/22/23 0259 08/21/23 0355 06/21/23 2255 06/21/23 0208 HGB 8.0 L -- 7.2 L 8.6 L < > -- HGBBLOODGAS -- 7.8 L -- -- -- 8.8 L WBC 13.1 H -- 13.4 H 16.2 H < > -- PLT 248 -- 259 265 < > -- < > = values in this interval not displayed. Recent Labs 08/22/23 0949 08/22/23 0640 08/22/23 0259 08/22/23 0009 08/21/23 2118 08/21/23 1308 08/21/23 0355 06/27/23 0644 [id number]/21/23 2152 05/27/23 2318 05/27/23 1519 NA 137 135 134 L 134 L -- -- -- 133 L < > 137 < > 135 < > 131 L KSERUM -- -- 4.4 4.4 4.7 4.5 -- 5.6 H < > -- < > -- < > -- KBLOOD -- 3.8 -- -- -- -- -- -- -- -- 5.1 -- 4.2 KPLASMA 3.9 -- -- -- -- 4.3 -- -- 5.2 < > -- < > -- BICARB 18 L -- 18 L 18 L -- -- -- 17 L < > 35 H < > 26 < > -- BUN 46 H -- 43 H 44 H -- -- -- 41 H < > 49 H < > -- < > -- CREATININE 2.05 H -- 2.07 H 2.08 H -- -- -- 1.92 H < > 1.01 < > -- < > -- < > = values in this interval not displayed. Results from last 7 days Lab Units 08/22/23 0949 08/22/23 0259 08/21/23 0355 08/20/23 2057 CALCIUM P mg/dL 8.5* -- -- -- CALCIUM mg/dL -- 8.1* 8.1* 8.9 8.7* ALBUMIN g/dL -- 2.9* 2.9* 3.1* 3.3* 3.3* PHOSPHORUS INORGANIC mg/dL -- 6.0* 6.0* 7.1* 7.0* Recent Labs 08/21/23 0355 07/11/23 0759 07/10/23 0710 EGFRCYSTATNC 15 L 17 L 17 L Results from last 7 days Lab Units 08/21/23 0410 UADM SOURCE Urine, Urine, Midstream CLARITY U Clear COLOR U Yellow OSMOLALITY UR 3 mOsm/kg 322 GÉNESIS PH URINE 4.3* GLUCOSE UR mg/dL Negative MICM MICROSCOPIC EXAMINATION Normal RBC UA MICM /hpf None Seen WBC UR HPF /hpf None Seen NITRITE U Negative LEUKOCYTES U3 Negative Tacrolimus, Trough (ng/mL) Date/Time Value 08/21/2023 07:42 AM 12.5 ASSESSMENT / PLAN #ESRD #S/p Renal transplant (2006, 2016) #Unspecified glomerulonephritis #Hyperkalemia, resolved #PEDRITO, no evidence of ATN on UI, possibly prerenal azotemia Mrs. Jacqueline Galvan is a 68 y.o. female who presents with acute cholecystitis. 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 She is unfortunately again hospitalized in the intensive care unit. Her UA yesterday did not show any evidence of ATN or other casts/proteinuria/heamturia that would explain her mild rise in Cr (2.0 from 1.5 baseline). It is possible that this is all related to prerenal azotemia within the setting of her current infection. Her tacrolimus level this morning was 12.5, so we will hold her AM tacrolimus today and resume tacrolimus 1.5 mg q12 hrs this evening at 2000. Repeat AM trough tomorrow. Continue to hold cellcept, continue on prednisone. Her hyperkalemia has resoolved after lokelma and diuretic. Recommendations - Hold AM tacrolimus today, resume 1.5 mg q12 hours at 2000 today - Taclolimus trough tomorrow - Hold cellcept, continue prednisone 5 mg daily - please obtain daily Mg, phosphorus, BMP - nephrology will continue to follow The patient was seen and discussed with pre owned sales consultant Dr. Winter. [place] [phone] with any questions. Carmelo Polo MD PGY-1, Anesthesiology & Perioperative Medicine Pager [phone] * Patricia Zimmer P.Garret., D.P.T. - 08/22/2023 11:30 AM CDT Images from the original note were not included. Wound Therapy Inpatient Evaluation/Treatment SUBJECTIVE Patient's Name: Jacqueline Galvan Referring/Attending Provider: Cris Gracia M.D. Medical Diagnosis: Cholecystitis [K81.9] Reason for Referral: WD: Advanced wound cares - coccyx and R leg Onset Date: 08/20/23 Payor: [facility] / Plan: [facility] [place] / Product Type: PPO / Patient/family gave verbal consent for photographs taken to monitor wound progress. PERTINENT MEDICAL / SURGICAL HISTORY: Patient Active Problem List Diagnosis Abdominal Aortic Aneurysm Without Rupture Unspecified (HCC) Hypertension And Chronic Kidney Disease Stage 1 To 4 Transplant Renal (HCC) Immunodeficiency Due To Drugs (HCC) Coronary Artery Disease (Unspecified) Hyperlipidemia On Treatment Osteoporosis Hyponatremia Debility Malnutrition Severe Protein-Calorie (HCC) Delirium (not otherwise specified) Loss Weight Dysfunction Vocal Cord Ischemia Mesenteric (HCC) Acute Respiratory Failure With Hypoxia (HCC) History Of Falling Contusion Face Initial Cholecystitis Hyperkalemia Past Surgical History: Procedure Laterality Date APPLICATION WOUND VAC ABDOMEN N/A 05/19/2023 Procedure: APPLICATION WOUND VACUUM ABDOMEN; Surgeon: Jt Hoang M.D.; Location: [facility] OR DEBRIDEMENT AND IRRIGATION - ABDOMINAL WOUND N/A 05/29/2023 Procedure: SHARP EXCISION OF SKIN AND SUBCUTANEOUS TISSUE MEASURING 2 cm x15 cm FOR TOTAL AREA OF 30 cm squared, IRRIGATION ABDOMINAL WOUND, CLOSURE OVER 19 HONDURAN ROUND ALEKSANDRA DRAIN, SECONDARY SKIN CLOSURE WITH [...] table preparation of renal allograft with one History of Present Illness: Jacqueline Galvan is a 68 y.o. female admitted 08/20/2023. History of Present Illness: Mrs. Jacqueline Glavan is a 68 y.o. female who presents with acute cholecystitis. 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 Imaging studies at outside hospital suggestive of acute cholecystitis. per provider note Family/Caregiver Present: Yes Patient/Caregiver Goals: Wound healing Patient Comments: Patient received resting in bed, agreeable to participation in wound cares. Previous wound treatment: cared for by industrial staff nurse OBJECTIVE Vitals monitored throughout session; within normal ranges. Wound special tests: Sensation: Intact to periwound region 08/22/23 1456 Wound 05/28/23 Pressure Injury Unstageable Coccyx Date First Assessed/Time First Assessed: 05/28/23 1135 Present on Original Admission: No Primary Wound Type: Pressure Injury Pressure Injury Staging: Unstageable Location: Coccyx *Wound Length (cm) 2.7 cm *Wound Width (cm) 1.1 cm Wound Surface Area 2.97 cm^2 BWAT Size 1-Length x width <4 sq cm BWAT Depth 4-Obscured by necrosis BWAT Edges 2-Distinct, outline clearly visible, attached, even with the wound base BWAT Undermining 1-None present BWAT Necrotic Tissue Type 3-Loosely adherent yellow slough BWAT Necrotic Tissue Amount 4->50 to <75% of wound covered BWAT Exudate Type 3-Serosanguinous: thin, watery, pale red/pink BWAT Drainage Amount 3-Small BWAT Skin Color Surrounding Wound 2-Bright red and/or blanches to touch BWAT Peripheral Tissue Edema 1-No swelling or edema BWAT Peripheral Tissue Induration 1-None present BWAT Granulation Tissue 4-[place] and/or dull dusky red and/or fills < or equal to 25% of wound BWAT Epithelialization 5-<25% wound covered BWAT Total Score 34 Wound 08/21/23 Knee Anterior;Right;Lower Multifactorial wound Date First Assessed/Time First Assessed: 08/21/23 0900 Present on Original Admission: Yes Location:Knee Wound Location Orientation: Anterior;Right;Lower Wound Description (Comments): Multifactorial wound *Wound Length (cm) 2.6 cm *Wound Width (cm) 2.8 cm Wound Surface Area 7.28 cm^2 BWAT Size 2-Length x width 4 to < or equal to 16 sq cm BWAT Depth 5-Full thickness skin loss with extensive destruction, tissue necrosis or damage to muscle, bone or supporting structures BWAT Edges 2-Distinct, outline clearly visible, attached, even with the wound base BWAT Undermining 1-None present BWAT Necrotic Tissue Type 3-Loosely adherent yellow slough BWAT Necrotic Tissue Amount 4->50 to <75% of wound covered BWAT Exudate Type 3-Serosanguinous: thin, watery, pale red/pink BWAT Drainage Amount 3-Small BWAT Skin Color Surrounding Wound 4-Dark red or purple and/or non-blanchable BWAT Peripheral Tissue Edema 1-No swelling or edema BWAT Peripheral Tissue Induration 1-None present BWAT Granulation Tissue 5-No granulation tissue present BWAT Epithelialization 5-<25% wound covered BWAT Total Score 39 Coccyx R inferior knee Treatment: Wound Location: coccyx, R inferior knee Modality: Non-contact low frequency ultrasound x 6 minutes Debridement: Mechanical debridement performed with fluffed gauze. Dressings: Coccyx: plurogel, sacral mepiborder R leg: aquacel AG, mepifoam Position: Patient was in L sidelying position for treatment session. Education provided to patient and caregiver regarding purpose of advanced modality ultrasound mist therapy and plan of care. Communication and collaboration occurred with patient's nurse; all other wounds are being managed by nursing at this time. Team Communication: Patient's nurse was contacted and patient's status was discussed Assessment Comorbid Conditions: Other (Comment) Personal Factors: Age, Body habitus, History of falls, Needs assistive device, Nutrition/hydration abnormality Wound Care Discharge Needs: Ongoing wound care management by patient and/or caregiver., Wound assessment recommended in 2-4 weeks by trained provider. Clinical Impression: The patient presents with coccygeal and R inferior knee wounds (the coccygeal wound is well known to us). The coccygeal wound has a small volume of yellow, adherent slough and is moderately tender topalpation (some discomfort with removal of sacral mepiborder). The R leg wound is quite deep with tendinous exposure. There is also a moderate volume of yellow, adherent slough present. The patient will continue to benefit from advanced modality ultrasound mist therapy daily x5 (until 08/25) as outlined in the plan of care below. Examination Elements: 3 Clinical Presentation: Evolving Clinical Decision Making: Moderate complexity clinical decision making Rehab Potential: Ms. Galvan has good potential to achieve established wound therapy goals within the time frame outlined below. Functional Goals and Timeframes: Goal #1: Patient's coccygeal wound will demonstrate 10% improvement in area (2.7x1.1cm)) in order to demonstrate good progress toward healing. Goal #1 Date: 08/29/23 Goal #1 Status: Ongoing Goal #2: Patient's R leg wound will demonstrate 10% improvement in area (2.6x2.8cm) in order to demonstrate good progress toward healing. Goal #2 Status: Ongoing Progress: Progressing toward goals Plan Patient agrees with the plan of care and goals. Treatment Plan: Frequency: 5 times per week Days of Treatment: , Saturday, Saturday, Saturday, Saturday PT Wound Duration: Until goals are met or hospital discharge PT - Next Inpatient Wound Care Appointment: 08/23/23 Plan: Plan of care initiated Wound PT Plan Comments: Patient to be provided with advance modality, selective debridement, and wound cares-- daily x5 (until 08/25) -- continue to reassess pending wound response and hospital course. Treatment interventions may include: Therapeutic modalities as needed, Debridement, Wound dressing assessment, Wound cares, Offloading, Self-care/home management Time Spent with Patient Evaluations PT Eval - Mod Complexity: 10 min Modalities Ultrasound - low freq, non-thermal (min): 15 min Time Tracking Total Timed Units (min): 15 min Total Treatment Time (min): 25 min Cassandra Zimmer P.T., D.P.T. * Tamika Santa M.D. - 08/22/2023 7:09 AM CDT Images from the original note were not included. RAPID RESPONSE TEAM (WEAVING INSTRUCTOR) DOCUMENTATION CODE STATUS: Full Code REASON FOR WEAVING INSTRUCTOR CONSULT: Worsening hypoxia PRIMARY TEAM: [facility] Medicine 3 ([facility]) SITUATION: This is hospital day 2 for Ms. Jacqueline Galvan, a 68 y.o. female admitted for acutecholecystitis. Relevant comorbidities notable for: ESRD status post renal transplant x2 (most recent 2017) on chronic immunosuppression, CAD status post PCI, AA, osteoporosis, hypertension, chronic mesenteric ischemia, PEG tube Patient initially presented to outside hospital for fever and abdominal pain and was found to have cholecystitis. She was transferred to medicine 3 service for consideration of nonsurgical intervention given poor surgical candidate. GI attempted ERCP with transcystic stent placement which was unsuccessful yesterday. She is planned for percutaneous cholecystostomy tube with IR today. She remains on antibiotics including vancomycin and meropenem. She was given 1.25 L fluid resuscitation yesterday. Upon admission, she was on 4 L nasal cannula with stable saturation yesterday. CT chest showed small bilateral pleural effusion initially and new large pericardial effusion. Overnight, she was noted to have be desaturating into the 70-80s with position change so her oxygen turned up to 10 L at one point. A chest x-ray was obtained by the primary team which showed increased left pleural effusion and redemonstrated the large pericardial effusion. A dose of IV Lasix 120 was given with about 250 ccurine output. Nursing staff was initially able to wean her down to 5 L however later was unable to maintain her saturation above 90% so they put her on simple face mask. She was also tachycardic intothe 120s. A WEAVING INSTRUCTOR was called in this setting for worsening hypoxia. Upon arrival of WEAVING INSTRUCTOR, patient was alert and oriented although ill-appearing. She was saturating around 90% on 12 L by simple face mask. She was otherwise normotensive and non tachycardic. She denies any chest pain, shortness on breath or abdominal pain. Her breathing appears comfortable on the mask. I-STAT ABG showed pH 7.3, pCO2 33, PO2 59, bicarb 16.8. Normal electrolytes. Lactate less than 0.3.EKG shows sinus rhythm and PAC. Please review the WEAVING INSTRUCTOR Narrator for further details regarding this evaluation. PHYSICAL EXAMINATION: BP 118/77 Pulse (!) 120 Temp 36.7 ??C (Temporal) Resp 18 Ht 165.1 cm Wt 44.1 kg SpO2 (!) 89% BMI 16.18 kg/m?? GEN: Chronically ill-appearing, in no acute distress CARDS: Regular rate and rhythm, no murmurs PULM: Decreased breath sound in the left mid and lower lung. Right lung clear. No accessory muscle usage. ABD: Non-distended. Soft, nontender to palpation. MSK: No joint contractures or deformities. PV: Warm, well-perfused. Distal pulses palpable bilaterally. NEURO: Alert and oriented x3. Grossly non-focal. Moves all extremities spontaneously. PSYCH: Appropriate, cooperative. WEAVING INSTRUCTOR ASSESSMENT: Jacqueline Galvan is a 68 y.o. female with past medical history of ESRD status post renal transplant x2 (most recent 2016) on chronic immunosuppression, CAD status post PCI, AA, osteoporosis, hypertension, chronic mesenteric ischemia, PEG tube admitted for acute cholecystitis. A WEAVING INSTRUCTOR for worsening hypoxia. Patient is requiring up to 15 L simple facemask to maintain saturation above 90% likely related to the worsening left pleural effusion in the setting of volume resuscitation. Patient will need ICU level care for initiation of high-flow nasal cannula. She does have a large pericardial effusion that potentially needs to be drained, although is not causing hemodynamic compromise at this time. RECOMMENDATIONS: - Transfer to the ICU for further management - Primary team to update the patient's family that he/she required transfer to the ICU for the above This plan was discussed with the nursing staff, who is in agreement with this plan. DISPOSITION: MICU CONTINGENCY PLANNING: As discussed above. Patient was staffed with eICU pre owned sales consultant, Dr. Klein, who is in agreement with this plan & disposition. Please do not hesitate to call WEAVING INSTRUCTOR if new concerns arise. Thank you for this consultation. Tamika Santa MD ([place]y) Internal Medicine PGY-3 Pager #[phone] 08/22/23 Critical care time: 25 minutes. This is time spent at this critically ill patient's bedside actively involved in patient care as well as the coordination of care and discussions with the patient's family. This does not include any procedural time which has been billed separately. * Lynette Saenz M.S., RDN, LD - 08/21/2023 2:47 PM CDTAssociated Order(s): IP CONSULT TO DIETITIAN; IP CONSULT TO DIETITIAN Clinical Nutrition: Initial Assessment Clinical Nutrition was requested to evaluate patient for tube feeding order consult and pressure injury consult SUBJECTIVE Ms. Galvan is a 68 y.o. female admitted for Cholecystitis. 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 Current Nutrition (since admission): NPO, no tube feeding since admit. Patient had ERCP with PEG replacement today. Tube feed recommendations provided below. Nutrition history: Unable to obtain history from patient today. Per chart review, patient was recently admitted 05/08/23-07/16/23 for abdominal pain and unintentional weight loss along with acute kidneyinjury and chronic mesenteric ischemia. She had severe malnutrition and PEG tube was placed on 05/17/23 which was unfortunately complicated by gastric perforation necessitating ICU care. She had difficulties with uptitrating tube feeds. NSS team followed throughout admission. HEN following and coordinated home tube feeding supplies through [facility]. She was on regular diet with 60 mEq K+restriction due to hyperkalemia issues. Oral intake was minimal throughout past admission. Food Allergies: NKFA Chewing/Swallowing Issues: was on dysphagia diet for period of time during past admission but advanced to regular solids and thin liquids Nutrition education/counseling: Received home going tube feeding education for gastrostomy tube using gravity drip feeding method on 07/15. Enteral Nutrition Prior to Admit Formula: Peptamen 1.5 Enteral Access: PEG tube Method of Administration: Intermittent Feeding Schedule: 250 mL TID Enteral Nutrition Provides: 1125 calories, 51 grams protein in 750 mL OBJECTIVE Current nutrition orders: Dietary Orders (From admission, onward) Start Ordered 08/21/23 0000 No oral nutrition, no tube feeding Diet effective midnight 08/20/23 2115 Pertinent Labs: Latest Reference Range & Units 05/10/23 07:25 05/25/23 00:24 05/25/23 21:50 07/07/23 08:34 07/08/23 18:44 07/15/23 07:44 Iron 35 - 145 mcg/dL 9 (L) 27 (L) Folate, S >=4.0 mcg/L 19.5 A-Tocopherol, Vitamin E 5.5 - 17.0 mg/L 7.9 Vitamin B12 Assay, S 180 - 914 ng/L 235 Vitamin A 32.5 - 78.0 mcg/dL 18.0 (L) Copper, S 77 - 206 mcg/dL 78 72 (L) Selenium, S 110 - 165 mcg/L 83 (L) Zinc, S 60 - 106 mcg/dL 48 (L) (L): Data is abnormally low Last 3 results Lab Units 08/21/23 1308 08/21/23 0355 08/21/23 0151 08/20/23 2253 08/20/237 SODIUM mmol/L -- 133* -- -- 135 POTASSIUM mmol/L -- 5.6* 5.6* 5.7* 5.7* POTASSIUM P mmol/L 4.3 -- -- -- -- CHLORIDE mmol/L -- 102 -- -- 102 BUN mg/dL -- 41* -- -- 38* CREATININE mg/dL -- 1.92* -- -- 1.88* PHOSPHORUS INORGANIC mg/dL -- 7.1* -- -- 7.0* CALCIUM mg/dL -- 8.9 -- -- 8.7* Recent Labs Lab Units 10/12/22 0923 HEMOGLOBIN A1C % 5.1 GI Function: Last BM Date: 08/20/23 Integumentary/Wounds: Lines/Drains/Airways Wound Duration Wound 05/28/23 Pressure Injury Unstageable Coccyx 85 days Wound 06/30/23 Skin Tear Skin tear Type 2 (partial flap loss) Knee Anterior;Bilateral 51 days Wound 07/09/23 Hematoma Head (Comment) Right Forehead 43 days Wound 08/20/23 Intertriginous Dermatitis Breast Lower;Right <1 day Wound 08/20/23 Intertriginous Dermatitis Groin Bilateral <1 day Wound 08/21/23 Knee Anterior;Right;Lower Multifactorial wound <1 day Medications: Scheduled Meds:acetaminophen, 500 mg, oral, 4x Daily [START ON 08/22/2023] aspirin, 81 mg, oral, Daily atorvastatin, 80 mg, oral, Daily at bedtime cholecalciferol, 25 mcg, oral, Daily HYDROmorphone, 0.2 mg, intravenous, Once meropenem, 500 mg, intravenous, Q12H multivitamin/mineral-adult, 1 tablet, oral, Daily nystatin, 1 Application, topical, BID pantoprazole, 40 mg, oral, Daily before breakfast predniSONE, 5 mg, oral, Daily sertraline, 25 mg, oral, Daily tacrolimus, 0.4 mg, gastric tube, Daily PM tacrolimus, 2 mg, gastric tube, BID torsemide, 100 mg, oral, Daily Anthropometrics: Height: 165.1 cm Admission Weight: 44.1 kg (08/20/2023) Current Weight: 44.1 kg [place] Body Weight (Calculated) : 56.9 kg BMI (Calculated): 16.2 kg/m?? Weight change since admission: 0 kg Net IO Since Admission: 250 mL [08/21/23 1517] Weight history: Wt Readings from Last 12 Encounters: 08/20/23 44.1 kg 07/15/23 43.7 kg 01/01/22 52.9 kg 01/05/21 62 kg 08/17/20 60.7 kg 08/21/19 59.3 kg 06/24/18 59 kg 06/24/18 60 kg 05/14/18 58.7 kg 05/13/18 58.4 kg 07/31/17 59.9 kg 07/04/17 59.5 kg Weight Change History: Per EMR, weight has been stable since discharge on 07/15/23. Current weight of 44.1 kg and 43.7 kg on 07/14. Weight at start of past admission on 05/08/23 was 39 kg, so weight gainof 11 lbs since beginning of past admit. Estimated dry weight last admit was 30-35 kg per NSS. Estimated Needs: Total Calorie Needs: 5385-8356 calories/day Method to Estimate Energy Needs: kcal/kg (25-30 kcal/kg) Weight Used for Equation Calculations: 44.1 kg Total Protein Needs: 44 - 66 grams/day (Method to Estimate Protein Needs (g/kg): 1 - 1.5 gm/kg) Weight Used to Calculate Protein Needs (Kg): 44.1 kg Nutrition Diagnosis: Altered GI function related to history of mesenteric insufficiency and pancreatic atrophy as evidenced by need for enteral support with pancreatic enzymes. Nutrition Diagnosis Reassessment: Ongoing Malnutrition Criteria: Malnutrition criteria not met (requires full assessment) The patient does not meet the ASPEN Criteria of malnutrition based on: Energy Intake: Unable to Assess Interpretation of Weight Loss: No Change Body Fat: Unable to Assess Muscle Mass: Unable to Assess Fluid Accumulation: Absent Reduced Citrus Picker Strength: Not applicable This is in the context of Chronic Illness. ASSESSMENT / PLAN ASPEN Criteria Malnutrition Status: Malnutrition criteria not met Nutrition Intervention: Interventions: Enteral nutrition, Vitamin and mineral supplements. Recommendations: Once medically appropriate, Start enteral nutrition: Peptamen 1.5 with volume and schedule of 250 mL TID. Water flushes: 120 mL before and after feeds or per service Enteral nutrition as recommended will provide 1125 total calories and 51 grams of protein and less than 100% of the Reference Daily Intake of vitamins and minerals per day. Continue Multivitamin with minerals daily. Recommend pancreatic enzyme order of Creon 36,000 lipase units TID orally (~1000 lipase units/kg dry weight). Consider psyllium as antidiarrheal PRN. In past admission, psyllium was given 1 hour prior to tube feed boluses. Consider checking the following labs due to pressure injury/wound and history of deficiencies: Zinc, Vitamin A, Vitamin C, Copper, Selenium Albumin and ceruloplasmin to assist with interpretation. If lab results reveal deficiency, dietitian will follow up with replacement recommendations. Monitoring/Evaluation: Nutrition parameter to monitor: Meals/Supplement Intake, Weight Status, Enteral, Skin Integrity, Wound Healing, Fluid Balance, Pertinent Labs, Chewing/Swallowing, Nausea/Vomiting/Diarrhea Desired Outcome: Tolerate enteral nutrition at goal Patient Goal(s): Tolerate enteral nutrition at goal rate Clinical Nutrition will continue to follow. For questions about patient's nutritional care please contact pager [phone] on weekdays 07:30-16:00 or [phone] on weekends/holidays. * Ariana Soto Jaclyn, RMarlysN. - 08/21/2023 1:44 PM CDTAssociated Order(s): IP CONSULT TO CARE MANAGEMENT Discharge Planning Assessment SUBJECTIVE Assessment Information Referral Source: leasing property manager Referral Name: Advanced directives and DC planning. Referral Reason: Advanced Directives Previous assessment done on: 05/18/23 Primary Language: Nigerian Program Architect Services Used: No Person(s) present during interview: Person(s) Present During Interview: patient and spouse, Silvino History of Present Illness #1 Cholecystitis Social History Marital Status: Family / Household: Lives with spouse Support System: spouse and caregiver Finance/Insurance Primary insurance: [facility] Secondary insurance: MEDICARE benefits: No Advance Directives Legal Decision Maker: Self Advance Directives: N/A (Booklet provided for review) Advance Directives Status: Not Activated OBJECTIVE Baseline Functional Status Baseline Activities of Daily Living Mobility: Independent (has a walker and wheelchair but reports she did not need it, prior to admission.) Dressing: Needs assistance Feeding: Needs assistance Bathing: Needs assistance Grooming: Needs assistance Toileting: Needs assistance Behavior: Pleasant, Calm, Oriented Communication: Talks, Understands speaking, Understands Nigerian Shopping: Needs assistance Medication Management: Needs assistance Housekeeping: Needs assistance Meal Prep: Needs assistance Assistive Devices: Walker - four wheeled, Oxygen, Wheelchair - manual Services/Resources: Home health, Home infusion/enteral Agency Name: [facility] Provided: SN Transportation: Support from family Baseline Services/Resources Primary care clinic and provider: ELSEWHERE, PCP Services/Resources: Home health, Home infusion/enteral Additional Resources: DIGITAL PRODUCTION OPERATOR services Anticipated Needs Functional Status: Other (comment), Transportation use (drive car, use taxi/bus) (requires ongoing assessment and recommendation of providers.) Assistive Devices: Other (Comment) (requires ongoing assessment and recommendation of providers.) Agency Name: [facility] Provided: SN Anticipated Modifications to the Patient's Home: None Transportation Needs: Support from family Does the patient need discharge transport arranged?: No Anticipated Discharge Destination: Home-Health Care [facility] ASSESSMENT / PLAN Assessment: The leasing property manager met with Jacqueline Galvan to discuss her current hospitalization and home going needs. The patient was accompanied by , Silvino . The patient was a reliable historian. The role of leasing property manager was reviewed. The patient's reviewed her prior level of care and support system. The patient receives support from her and caregiver . The patient's described her living environment as a multiple level home with stairs to enter with rails. Housekeeping, grocery shopping, meal prep, and other household responsibilities have previously been completed by patient's . leasing property manager discussed the patient's potential needs at dismissal based on their home setting, previous needs and responsibilities, homebound status, and relevant assessments with the patient's . The patient will be safe and supported to return home with [facility] or previous services noted above when medically ready. Support will be provided by spouse and caregiver. The patient's demonstrated understanding when discussing her home goingplans and anticipated needs. Case management consult received for Advanced directive. Per chart review, patient has services requiring reconnection, so discharge planning assessment completed at this time. Patient is seen in [id number]. Nurse preparing patient going off unit for procedure, so information primarily obtained from spouse at bedside, with patient's permission. Patient lives at home with supportive spouse. Currentlyon service with [facility] for [facility], has intermittent private duty caregiver and assistance from spouse. Spouse reports patient was doing well, ambulating without walker, prior to admission but they have walker and wheelchair. Spouse assists with tube feeds. player development manager will reconnect services with providers and will follow up throughout hospitalization to further assess discharge needs. Patient and spouse do not verbalize any further questions or concerns at this time. Advanced directives booklet left at bedside for them to review when patient returns to room and behavioral health case manager can follow- up to answer any questions or provide any assistance they may need. At this time, the care team anticipates the patient requires the following service(s) to be reconnected: home healthcare, infusion, and oxygen. The patient's identified the following as theircurrent vendor(s): [facility], [facility] for tube feed and [employer] for O2. Dialysis/Infusion - Admitted Since 08/20/2023 Service Provider Request Status Selected Services Address Phone Fax Patient Preferred [facility] Pending - Request Sent N/A [address] [phone] -- Durable Medical Equipment - Admitted Since 08/20/2023 Service Provider Request Status Selected Services Address Phone Fax Patient Preferred [facility] Accepted N/A [address] [facility] [address] [phone] -- Home Medical Care - Admitted Since 08/20/2023 Service Provider Request Status Selected Services Address Phone Fax Patient Preferred [facility] Care [facility]i Pending - Request Sent N/A [id number] [facility] [address] [phone] -- After reviewing the patient's chart and meeting with the patient's , the leasing property manager deemed the LACE+/readmission questions were not necessary. The patient's reports understanding that she will dismiss from the hospital when medically stable. Pending hospital course and medical readiness, no barriers to dismissal have been identifiedat this time. Plan: The patient and patient's agrees with the following plan. Oxygen Reconnect : Durable Medical Equipment - Admitted Since 08/20/2023 Service Provider Selected Services Address Phone Fax Patient Preferred [facility] Durable Medical Equipment [address] [facility] [phone] -- Contact: Intake Respiratory Equipment : Tanks and concentrator Oxygen provider reports patient???s current orders are for 2 liters continuous. NURSING: - Arrange transportation oxygen tank if needed. - If new oxygen requirements are needed, assist primary service with new prescription and fax to provider. PRIMARY SERVICE: - Complete and sign new oxygen prescription if needed. CASE MANAGEMENT: -Reviewed patient's insurance coverage for the services noted above. The Silvino appear(s) tohave an understanding of this. -Will continue to follow and assist if needs arise. Patient's anticipated discharge disposition is: Home with HH and reconnection of O2 and tube feed services Transportation upon dismissal will be provided by family--spouse . leasing property manager recommended nothing at this time. leasing property manager provided information regarding the dismissal process and the Advance Health Care Planning: Making Your Wishes Known [phone] booklet along with education on the benefits ofcompleting an advance directive and resources that may assist them in this process. Booklet left atbedside for review and behavioral health case manager will follow up with any questions or concerns the family mayhave. leasing property manager placed or requested the following hospital-based consult orders and/or referrals: None. leasing property manager will continue to assess for homegoing needs with the interdisciplinary team. leasing property manager encouraged the patient to reach out with any questions/concerns. Care Management will continue to follow. Signed by: Ariana Soto R.N. 08/21/2023 * Ariel Karimi M.D. - 08/21/2023 12:13 PM CDTAssociated Order(s): Nephrology consult (hospital) NEPHROLOGY CONSULT SERVICE - CONSULT NOTE Hospital Day 1 Nephrology consult (hospital) Referring Provider: Akshat Rhoades M.D. SUBJECTIVE CHIEF COMPLAINT PEDRITO and kidney transplant history HISTORY OF PRESENT ILLNESS Mrs. Jacqueline Galvan is a 68 y.o. female who presents with acute cholecystitis. 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 She recently had a prolonged hospitalization in the setting of malnutrition and mesenteric ischemia where she had IR guided PEG placement that led to perforation where she had a debridement and wound VAC placement at that time. Nephrology followed her throughout that hospital stay while her weight was around 40 kg and opted for diuresis of 100 mg of torsemide to maintain urine output. She was ultimately discharged to home on 07/16/2023 with ongoing skilled therapy. She returned to the hospital on 08/19 in the setting of new fever, feeling unwell and jitteriness. She would multiple imaging studies at that time including CT PE, CT of the abdomen and pelvis and gallbladder ultrasound that were consistent with cholecystitis. She was transferred to [facility] for consideration for management of her cholecystitis that may include surgical options, percutaneous cholecystostomy tube or transcystic stent. On arrival, she was hemodynamically stable but her potassium was 5.6 and she received 100 of IV Lasix yesterday and 100 of torsemide today. Her phosphorus is also increased to 7.0 and she is jittery on exam today. She says that she feels overall unwell and does have abdominal pain today. OBJECTIVE Admission weight: 44.1 kg Weights for the past 120 hrs (Last 3 readings): Weight 08/20/23 2210 44.1 kg VITAL SIGNS Temperature: [36.2 ??C-36.5 ??C] 36.2 ??C Resp Rate: [13-18] 18 Blood Pressure: (114-143)/(60-66) 125/60 SpO2: [88 %-95 %] 95 % Flow Rate (L/min): [4 L/min-5 L/min] 5 L/min Pulse Rate: [57-69] 69 PHYSICAL EXAMINATION GEN: Jittery and shaky in the room HEENT: PERRL, Without icterus or injection. Moist mucus membranes, hearing grossly intact. RESP: Slightly decreased breath sounds bilaterally. Normal effort, no accessory muscle use. CV: Regular Rate & Rhythm, Normal S1&S2, No murmurs/rubs/gallops. ABD: pain to deep palpation in midepigastric and right upper quadrant region EXTREMITIES: Warm, Dry, Peripheral pulses intact, wound on right burgos DIAGNOSTICS Recent Labs 08/21/23 0355 08/20/23205607/16/23 0755 HGB 8.6 L 9.2 L 9.2 L WBC 16.2 H 16.9 H 6.9 PLT 265 273 267 Recent Labs 08/21/23 0355 08/21/23 0151 08/20/23 2253 08/20/23205607/16/23 0755 06/27/23 0644 06/26/23200606/24/23 0314 06/23/23 1552 06/22/23 0949 06/21/23 2255 NA 133 L -- -- 135 135 < > 137 < > 137 < > 135 KSERUM 5.6 H 5.6 H 5.7 H 5.7 H 4.7 < > -- < > -- < > -- KPLASMA -- -- -- -- -- -- 5.2 -- 4.6 -- 5.2 BICARB 17 L -- -- 18 L 26 < > 35 H < > 29 < > 25 BUN 41 H -- -- 38 H 39 H < > 49 H < > 44 H < > 46 H CREATININE 1.92 H -- -- 1.88 H 1.42 H < > 1.01 < > 1.09 H < > 1.13 H < > = values in this interval not displayed. Results from last 7 days Lab Units 08/21/23 0355 08/20/237 CALCIUM mg/dL 8.9 8.7* ALBUMIN g/dL 3.1* 3.3* 3.3* PHOSPHORUS INORGANIC mg/dL 7.1* 7.0* Recent Labs 08/21/23 0355 07/11/23 0759 07/10/23 0710 EGFRCYSTATNC 15 L 17 L 17 L Results from last 7 days Lab Units 08/21/23 0410 UADM SOURCE Urine, Urine, Midstream CLARITY U Clear COLOR U Yellow OSMOLALITY UR 3 mOsm/kg 322 GÉNESIS PH URINE 4.3* GLUCOSE UR mg/dL Negative MICM MICROSCOPIC EXAMINATION Normal RBC UA MICM /hpf None Seen WBC UR HPF /hpf None Seen NITRITE U Negative LEUKOCYTES U3 Negative ASSESSMENT / PLAN #ESRD #S/p Renal transplant (2006, 2016) #Unspecified glomerulonephritis #Hyperkalemia #PEDRITO Mrs. Jacqueline Galvan is a 68 y.o. female who presents with acute cholecystitis. 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 She was recently hospitalized for prolonged stay for PEG placement and possible perforation necessitating multiple procedures but overall was discharged with stability following Nephrology review on 100 mg of torsemide which she has been taking consistently. Her weight at the moment is 40 kg which is the exact same as when she was discharged and her BNP is decreased as well. She is currently admitted with acute cholecystitis and the tentative plan is to go for ERCP with transcystic stenting today. Subjectively she does not feel well and is very jittery and shaky today on exam which is new for her and difficult to elucidate the cause whether there could be metabolic, secondary to medication levels such as her tacrolimus, secondary to metabolic or electrolyte derangement such as her hyperkalemia. She certainly does have an acute kidney injury at the moment on top of her ESRD likely in the setting her infection, decreased renal perfusion and contrast received with the CT angiogram had outside institution. We do anticipate that her creatinine will continue to rise and that it will be very difficult to manage her potassium and other metabolic derangements with her worsening kidney function. For her hyperkalemia, we will attempt to manage this medically at the moment with a dose of low, which we have ordered, ongoing diuresis as she received 100 and torsemide today with an additional 500bolus of normal saline to augment diuresis. We would recommend close monitoring of her potassium before ERCP today to determine if additional measures of shifting such as albuterol would be indicatedand we will continue to watch closely and monitor need for dialysis. Lastly, it is certainly possible that she could have increased tacrolimus levels that could be causing her jitteriness but we will await tacrolimus trough levels. We would recommend holding mycophenolate right now with her possible infection and to continue tacrolimus and prednisone at home doses. Recommendations -dose of Lokelma ordered by nephrology team for hyperkalemia -500 cc of NS ordered by Nephrology team to augment diuresis with torsemide -continue 100 mg of torsemide at the moment -no indication for dialysis right now but we will continue to watch her potassium closely of the next 24 hours and we would recommend close potassium monitoring q.6 -follow up tacrolimus trough level drawn today -hold CellCept in the setting of cholecystitis and possible infection, ordered by nephrology team -continue tacrolimus 2 mg gastric tube 2 times daily until we have trough levels -continue prednisone 5mg daily at the moment -please obtain daily Mag, phosphorus, BMP Case seen and staffed with Nephrology a pre owned sales consultant Dr. Fischer. [place] [phone] with any questions. We will continue to follow. Ariel Karimi M.D. Associated attestation - Scarlett Fischer M.D., Ph.D. - 08/21/2023 5:24 PM CDT I saw and evaluated the patient, participating in the desai portions of the service. I reviewed the resident/fellow???s note. Ms. Galvan is well known to me from her recent hospital admission in July. She now has rehospitalized with chest pain, hyperkalemia acute kidney failure and gallstone associated cholecystitis. She is going to have an ERCP performed later today. She is supratherapeutic on tacrolimus levels. She is noticing twitching today. She was not taking Seroquel at home. She is hyperkalemic. We are going to give her a dose of Lokelma now and bolus her with some normal saline as she has been fasting for her procedure. She will continue torsemide at the current dose Exam: Alert, myoclonic twitching Cardiovascular exam heart sounds 1 and 2 Mucous membranes moist. Tongue not coated. Lung preston clear abdomen is soft allograft nontender enterostomy tube left mid abdomen #1 Transplant Renal (HCC) #2 Malnutrition Severe Protein-Calorie (HCC) #3 Cholecystitis #4 Hyperkalemia We will request fluid bolus and additional Lokelma to be given today. Patient was very fragile and hyperkalemia issues complicates procedure planning today. She will continue her diuretic and she will need supplemental fluids if she is fasting for procedures. We will hold tacrolimus feeding due to high levels which may be leading to her jitteriness and twitching Discussed with patient and spouse I agree with the resident/fellow???s findings and plan. * Feliciano Hathaway M.B.B.S. - 08/21/2023 11:50 AM CDT GASTROENTEROLOGY & HEPATOBILIARY CONSULT Date/Time: 08/21/2023 11:51 AM CDT Patient Name: Jacqueline Galvan : 1955 PHYSICAL EXAM Vitals: BP 125/60 (BP Location: Left arm;Upper, Patient Position: Lying) Pulse 69 Temp 36.2 ??C(Oral) Resp 17 Ht 165.1 cm Wt 44.1 kg SpO2 95% BMI 16.18 kg/m?? PERTINENT DIAGNOSTIC STUDIES LABS Recent Labs 08/21/23 03508/20/232056 WBC 16.2 H 16.9 H HGB 8.6 L 9.2 L PLT 265 273 INR -- 1.6 NA 133 L 135 CL 102 102 BUN 41 H 38 H CREATININE 1.92 H 1.88 H CALCIUM 8.9 8.7 L ALBUMIN 3.1 L 3.3 L 3.3 L BILITOT -- 0.5 AST -- 22 ALT -- 31 ALKPHOS -- 147 H ASSESSMENT AND PLAN Very pleasant 68-year-old lady with multiple medical comorbidities including end-stage renal dialysis status post renal transplant in 2 2, most recently in 2017 on triple immunosuppression with prednisone, CellCept and tacrolimus, coronary artery disease, with recent PEG tube placement via IR for malnutrition and chronic mesenteric ischemia. Admitted from outside hospital with abdominal pain and imaging evidence of cholecystitis. RECOMMENDATIONS 1. Reviewed imaging with our advanced endoscopist today Dr. Telles. He agrees with ERCP for transcystic gallbladder stent placement as destination therapy for cholecystitis as she he is not a surgical candidate due to medical comorbidities 2. Subsequently can narrow antibiotics oral ciprofloxacin to complete a 5 day course 3. Patient endorses leakage from PEG tube. This was placed by IR 3 months ago, and is due for exchange. We will try to facilitate this along with ERCP This patient was seen with Dr. Bermudez, please see their note for full details. Thank you for involving us in the care of this patient. Fady SilvaB.S. 08/21/2023 * Vaibhav Whittington M.B., B.Ch., B.A.O. - 08/21/2023 9:41 AM CDTAssociated Order(s): IP CONSULT TO INFECTIOUS DISEASES Infectious Diseases Transplant Consulting Service Consult Note SUBJECTIVE REASON FOR CONSULT We are seeing Ms. Galvan at the request of Vamshi Vivas M.D. to give further recommendations for evaluation and management of acute cholecystitis, large amount of drug resistant species in previous infections. HISTORY OF PRESENT ILLNESS 68 year old female who is here with a 1-day history of fever and abdominal pain. She is immunosuppressed s/p renal transplant (chronic prednisone, tacrolimus, MMF) and in the setting of severe malnutrition (BMI 16, s/p PEG May 2023). On 08/18 she developed abdominal pain and fevers (101.8) and presented to local hospital. CT chest abdomen pelvis demonstrated bilateral small pleural effusions and cholecystitis. She had a positive Isaac's sign on examination. Blood cultures from 08/18 NGTD and urine cultures with Enterobacter cloacae. Laboratory evaluation here notable for leukocytosis with WBC 16.2, PEDRITO with creatinine 1.92 andhyperkalemia. Cystatin C was 3.11. LFTs were normal with the exception of an elevated ALP, 147. Shewas started on piperacillin tazobactam and this was transitioned to meropenem this morning. She also received a dose of vancomycin. She has been afebrile since admission here with no tachycardia. Shehas had a supplemental oxygen requirement. She had a 2-month hospitalization May-July 2023. Initially admitted with diverticulitis. Malnutrition noted and was felt to be related to chronic mesenteric ischemia. She had a PEG tube placed on May 17. Unfortunately this was complicated by gastric perforation necessitating exploratory laparotomy in setting of septic shock. Cultures from a ALEKSANDRA drain one week after procedure with pen-resistant vancomycin-sensitive E.faecium. ID were briefly involved later in hospitalization as urine cultures grew Pseudomonas and patient was treated with meropenem for 7 day course. Since dismissal she had been doing well. She had developed chronic wounds on her right lower extremity and a right forehead following a fall during that hospitalization. She had been getting wound dressings daily and was being evaluated in a local wound clinic weekly. This wound was cultured on 08/13 and grew Enterobacter cloacae. She was started on amoxicillin-clavulanic acid for one week, and was taking this on Saturday at time of presentation to her local hospital. OBJECTIVE PHYSICAL EXAMINATION Vital Signs: I have reviewed the current vital sign data as applicable. Isaac's sign positive. Peg tube in-situ without surrounding erythema. Chronic wound on right lowerextremity with exposed tendon. No surrounding cellulitis. Chronic papular wound on right forehead without surrounding cellulitis. Scattered ecchymosis. No murmur appreciated lungs were clear. DIAGNOSTICS I have reviewed diagnostics. Studies of note include: Blood cultures 08/18: NGTD Urine Culture 08/18: Enterobacter cloacae complex Wound culture 08/13: Enterobacter cloacae complex Estimated Creatinine Clearance: 19.3 mL/min (A) (by C-G formula based on SCr of 1.92 mg/dL (H)). Allograft US this morning is unremarkable ASSESSMENT / PLAN 68-year-old female presenting with acute cholecystitis. She had been on amoxicillin-clavulanic acidwhen she developed symptoms. A source control procedure is planned for today with transcystic stenting and she has been appropriately escalated to Meropenem. Meropenem does not provide excellent Enter ococcus coverage and she did have Enterococcus species cultured from her peritoneum a couple of months ago. However, she did receive a dose of vancomycin yesterday and given her poor renal function this should remain therapeutic at least for the next 24 hours. Where he she should deteriorate would give her a dose of daptomycin to cover for VRE, and I would also favor Daptomycin here regardless given her renal function is so tenuous. 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 Peritoneal cultures with E. 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 Possible airway colonization of filamentous fungus 05/23/2023 Sandi esophagitis Colonic diverticulosis Coronary artery diseaese s/p PCI (2005) AAA Osteoporosis Hypertension Hyperlipidemia RECOMMENDATIONS: Continue meropenem 500 mg q 12 hours If feasible, please obtain Gram stain and bacterial cultures at time of source control procedure today If the patient deteriorates would administer a dose of Daptomycin 8 mg/kg Please obtain a serum CMV DNA PCR Ongoing wound care for head and RLE lesions Transplant nephrology input is appreciated We will follow along as we await results of cultures Please page the Transplant-ID service pager at [phone] with questions. Thank you for the consultation. Vaibhav FonsecaA.O Infectious Diseases Fellow [phone] Associated attestation - Claribel Chauhan M.D. - 08/21/2023 2:01 PM CDT I saw and evaluated the patient, participating in the desai portions of the service. I reviewed the resident/fellow???s note. I agree with the resident/fellow???s findings and plan. Jacqueline Galvan is a 68 y.o. female Sepsis secondary to acute cholecystitis Prolonged hospitalization from 05/08/2023-07/16/2023 with multiple issues below Hypoxic respiratory failure with bilateral pleural effusions due to volume overload and possible pneumonia during prior hospitalization Urine colonization with piperacillin-tazobactam resistant Pseudomonas aeruginosa with possible episode of UTI in June 2023 Sigmoid diverticulitis intramural abscesses 05/2023 and gastric perforation s/p exploratory laparotomy on 05/19/2023 - intra-abdominal culture grew E faecium (non-VRE) complicated by ischemic midline wound requiring debridement on 05/29/2023 PEDRITO requiring CRRT in 05/2023 Advanced colonic diverticulosis History of esophageal candidiasis 05/2023 History of low grade CMV viremia History of AAA Pulmonary colonization with filamentous fungus ESRD secondary to glomerulonephritis s/p renal transplant x 2 (2006, 2016); CMV D-/R+, EBV D+/R+ CAD s/p PCI 2005 Malnutrition s/p gastrostomy tube insertion The patient with recent prolonged hospitalization from May to July 2023 returned to the hospital for not feeling well and was found to have sepsis secondary to acute cholecystitis. The patient is doing well and hemodynamically stable. Pain is mainly around her right scapular. GI team is on board and the patient will undergo transesophageal gallbladder stent placement as destination therapy for cholecystitis. In the meantime, we will continue meropenem for now without re-dosing vancomycin. After procedure, we plan to deescalate the antibiotic tomorrow. Claribel Chan M.D. Infectious Diseases Pager: [phone] * Arlen Bush M.D. - 08/21/2023 8:17 AM CDTAssociated Order(s): IP CONSULT TO GENERAL SURGERY History and Physical Hospital Day: 2 Reason for consult: Cholecystitis SUBJECTIVE Chief Complaint: Abdominal pain HPI: Jacqueline Galvan is a 68 y.o. female known to S who presents with Ms. Galvan is a medically complex patient with an extensive medical history. Comorbidities include end-stage renal disease secondary to unspecified glomerulonephritis s/p left renal transplant x2 (2006, 2016), coronary artery disease, 4.7 cm abdominal aortic aneurysm, osteoporosis, hypertension, h yperlipidemia, chronic hyponatremia, chronic mesenteric ischemia. Home medications include amlodipine, aspirin, atorvastatin, losartan, mycophenolate, omeprazole, prednisone, tacrolimus. Our team waspreviously involved in Ms. Galvan's care in May of this year. At that time, she had presentedwith 6 months of weakness and 45lb weight loss, overall failure to thrive thought to be 2/2 multiple factors including chronic mesenteric ischemia. During her hospital stay, she developed peritonitisafter IR PEG placement and was taken to the OR 05/19/23 for ex lap, found with succus throughout abdomen and leaking G-tube. She then had a prolonged hospital stay with ongoing abdominal sepsis. She eventually returned to OR 05/29/23 for delayed primary closure of midline wound. She remained hospitalized until 07/15 with issues including renal failure, hypoxic respiratory failure with pneumonia and pleural effusion, anemia. She was eventually discharged after goals of care discussions emphasized the importance of returning home despite tenuous clinical status. She was made DNR/DNI. She has been receiving home health cares. She presented to an outside hospital with abdominal pain, fever. She underwent CT scan which demonstrated bilateral pleural effusions and concern for cholecystitis. She was initiated on zosyn and vancomycin and transferred [facility] due to medical complexity. Her family has now requested she be full code. On arrival here, her workup was notable for Hgb 9.2, WBC 16.9, K 5.7, Cr 1.88 (baseline 1.3-1.4), Tbili 0.5, lactate 1.4, ALP mildly elevated 147. Blood cultures are pending. Her CT scan at the outside hospital is being reviewed by [place] radiologists. She has been afebrile and HDS. Pertinent History Review: MEDICAL HISTORY ERSD s/p 2x renal transplant (2006, 2016) on tacrolimus, prednisone, mycophenolate CAD s/p AAA 4.7cm HLD HTN Osteoporosis Chronic mesenteric ischemia SURGICAL HISTORY 2006, 2016 renal transplant 2008 parathyroidectomy, subtotal 05/19/23 gastrostomy 05/19/23 XL, 05/29/23 DPC of midline CURRENT MEDICATIONS Pertinent Medications: ASA81, mycophenolate, prednisone 5mg, tacrolimus. Denies use of blood thinners. ALLERGIES/CONTRAINDICATIONS No allergies to antibiotics FAMILY HISTORY family history is not on file. SOCIAL HISTORY reports that she has been smoking. She has never used smokeless tobacco. She reports that she does not currently use alcohol. She reports that she does not use drugs. Full History per EMR: Past Medical History: Diagnosis Date Chronic Kidney Disease NOS Coronary Artery Disease (Unspecified) stent placement Hyperlipidemia Past Surgical History: Procedure Laterality Date APPLICATION WOUND VAC ABDOMEN N/A 05/19/2023 Procedure: APPLICATION WOUND VACUUM ABDOMEN; Surgeon: Jt Hoang M.D.; Location: [facility] DEBRIDEMENT AND IRRIGATION - ABDOMINAL WOUND N/A 05/29/2023 Procedure: SHARP EXCISION OF SKIN AND SUBCUTANEOUS TISSUE MEASURING 2 cm x15 cm FOR TOTAL AREA OF 30 cm squared, IRRIGATION ABDOMINAL WOUND, CLOSURE OVER 19 HONDURAN ROUND ALEKSANDRA DRAIN, SECONDARY SKIN CLOSURE WITH [...] Allograft MICROLARYNGOSCOPY N/A 06/18/2023 Procedure: MICROLARYNGOSCOPY.; Surgeon: Abrahma Shelton M.D.; Location: [facility] PARATHYROIDECTOMY - SUBTOTAL N/A 07/30/2007 >1. Standard cervical exploration. 2. Subtotal parathyroidectomy (excision right superior, TRANSPLANT KIDNEY - RECIPIENT OF LIVING DONOR WITH BACK TABLE PREP KIDNEY ALLOGRAFT N/A 01/31/2007 >Living donor kidney transplant. Back table preparation of renal allograft with one Current Facility-Administered Medications: acetaminophen tablet 500 mg (TYLENOL), 500 mg, oral, 4x Daily, Akshat Rhoades M.D. albuterol 2.5 mg/0.5 mL nebulizer solution 15 mg, 15 mg, nebulization, Once, David Joy M.D. aspirin chewable tablet 81 mg, 81 mg, gastric tube, Daily, Akshat Rhoades M.D. atorvastatin tablet 80 mg (LIPITOR), 80 mg, gastric tube, Daily at bedtime, Akshat Rhoades M.D. cholecalciferol (vitamin D3) tablet 25 mcg, 25 mcg, oral, Daily, Akshat Rhoades M.D. diphenoxylate-atropine 2.5-0.025 mg/5 mL liquid 10 mL (LOMOTIL), 10 mL, gastric tube, 4x Daily PRN,Akshat Rhoades M.D. ipratropium-albuteroL 0.5-2.5 mg/3 mL nebulizer solution 3 mL (DUONEB), 3 mL, nebulization, Q6H PRN, Akshat Rhoades M.D. ocajxlqqtdzu-bwlv-BS-Ca-minerals 400 mcg (folic acid) tablet 1 tablet (THERAPEUTIC-M), 1 tablet, oral, Daily, Akshat Rhoades M.D. mycophenolate capsule 500 mg (CELLCEPT), 500 mg, oral, Daily at bedtime, Elicia Godfrey Pharm.DMarlys,R.Ph., 500 mg at 08/20/23 2237 mycophenolate capsule 750 mg (CELLCEPT), 750 mg, oral, QAM, Akshat Rhoades M.D. ondansetron ODT disintegrating tablet 4 mg (ZOFRAN-ODT), 4 mg, oral, Q6H PRN, Akshat Rhoades M.D., 4 mg at 08/21/[address] tablet 40 mg (PROTONIX), 40 mg, oral, Daily before breakfast, Akshat Rhoades M.D., 40 mg at 08/21/23 0629 piperacillin-tazobactam in dextrose (iso osm) IVPB 2.25 g (ZOSYN), 2.25 g, intravenous, Q8H, Akshat Rhoades M.D., Last Rate: 100 mL/hr at 08/20/23 2341, 2.25 g at 08/20/23 2341 predniSONE tablet 5 mg (DELTASONE), 5 mg, oral, Daily, Akshat Rhoades M.D. QUEtiapine tablet 25 mg (SEROquel), 25 mg, oral, Daily at bedtime, Akshat Rhoades M.D. sertraline tablet 25 mg (ZOLOFT), 25 mg, oral, Daily, Akshat Rhoades M.D. tacrolimus granules for suspension 0.4 mg (PROGRAF), 0.4 mg, gastric tube, Daily PM, Akshat Rhoades M.D., 0.4 mg at 08/20/23 2237 tacrolimus granules for suspension 2 mg (PROGRAF), 2 mg, gastric tube, BID, Akshat Rhoades M.D., 2 mg at 08/20/23 2306 torsemide tablet 100 mg (DEMADEX), 100 mg, oral, Daily, Akshat Rhoades M.D. No Known Allergies ROS A complete 10 system review of systems was completed. Pertinent positive and negative are noted in the HPI above, all other systems were reviewed and were negative. OBJECTIVE Temperature: [36.2 ??C-36.5 ??C] 36.2 ??C Resp Rate: [13-17] 17 Blood Pressure: (114-143)/(61-66) 141/61 SpO2: [88 %-93 %] 91 % Flow Rate (L/min): [4 L/min-5 L/min] 5 L/min Pulse Rate: [57-63] 63 Physical Exam: Constitutional Appearance: She is not ill-appearing. Cardiovascular Rate and Rhythm: Normal rate. Pulmonary Effort: No respiratory distress. Abdominal Comments: Midline incision well healed. LUQ PEG tube cabbed. Weak abdominal wall with pouching in LLQ. RUQ tender, Isaac's positive. Nondistended, no generalized peritonitis.. Skin General: Skin is warm and dry. Neurological Mental Status: She is alert. She is disoriented. Comments: Cannot remember recent history prompting hospital visit LABS: Please see the record for full details Recent Labs 08/21/23 0355 08/20/237 HGB 8.6 L 9.2 L PLT 265 273 WBC 16.2 H 16.9 H Recent Labs 08/21/23 0355 NA 133 L CL 102 BUN 41 H CREATININE 1.92 H GLUCOSE 169 H MICROBIOLOGY: No results found for this visit on 08/20/23 (from the past 72 hour(s)). IMAGING: Imaging was independently reviewed. No results found. ASSESSMENT / PLAN #1 Cholecystitis Ms. Galvan is a complex patient with extensive medical history. She has significant complicated medical conditions in addition to her complex surgical history. Therefore, she has a poor surgical candidate. She does not have high likelihood of her clinical status improving to a point where she would be a surgical candidate in the future. Her CT scan demonstrates evidence of cholecystitis and herexam is positive for Isaac's sign. Therefore, she likely has cholecystitis which warrants treatment. Therefore, we will recommend percutaneous cholecystostomy tube versus transcystic stent likely asdestination therapy for her cholecystitis. PLAN: -transcystic stent versus percutaneous cholecystostomy tube -Continue IV antibiotics Patient was seen and discussed with Dr. Thomas and Dr. Braga. Please reach out to [facility] team with any questions concerns by paging [phone] ([facility]). TT: 45 minutes, CT > 50%. The patient acknowledges an understanding and agrees with the plan of care. Associated attestation - Sawyer Thomas M.B.B.S. - 08/21/2023 12:52 PM CDT 68-year-old female very known to [facility] from her last as mentioned that she required ex lap for G-tube related biliary peritonitis. She had open wounds vitreous eventually closed due to facial dehiscence and she had a long recovery from that. Prior to that she had significant history of to renal transplant through bilateral flank incisions. She is on immunosuppressive medications but does not take any blood thinners currently. She was discharged home and still recovering from her previousillness with pressure ulcers, significant malnutrition, chronic related illnesses. She is DNR DNI. We were consulted for right upper quadrant pain, with elevated white cell count normal total bili but elevated alkaline phosphatase. For the last couple of days at home she has not progressing well, failure to thrive and currently in the hospital she is drowsy. On exam she has right upper quadrant tenderness, Isaac sign positive. She has midline incision scar, she has bilateral flank incision scars, she has left upper quadrant G-tube in place. We have reviewed outside imaging and ultrasound suggestive of pericholecystic fluid with distended gallbladder and cholelithiasis. She will get benefitwith percutaneous cholecystostomy tube versus internal drainage using transcystic stent. She will be very high-risk case for surgical treatment of cholecystitis, may require bigger incision for cholecystectomy, prolonged ICU/hospital stay and delayed recovery due to frailty, and immunosuppression medications. We have discussed her case with her primary team, all the questions concerns were answered in detail and they showed understanding. * Bee Bermudez M.D. - 08/21/2023 7:36 AM CDTAssociated Order(s): IP CONSULT TO HEPATOLOGY GASTROENTEROLOGY & HEPATOBILIARY CONSULT Date/Time: 08/21/2023 7:37 AM CDT Patient Name: Jacqueline Galvan : 1955 CONSULT Evaluation of: Consideration of transcystic stent placement for acute cholecystitis. Referring Provider: Vamshi Vivas M.D. HISTORY OF PRESENT ILLNESS Ms. Jacqueline Galvan is a 68 y.o. 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 Mrs. Galvan was transferred to [facility] from an outside institution after presenting with abdominal pain concerning for cholecystitis. Hepatobiliary was consulted for consideration of transcystic stent placementin the setting. Mrs. Galvan was hospitalized from 05/08/23-07/16/23 here at [facility] initially for abdominal pain and unintentional weight loss along with acute kidney injury. Symptoms were thought secondary to chronic mesenteric ischemia. She underwent radiologically guided gastrostomy tube placement on 05/17/23 which was unfortunately complicated by gastric perforation necessitating ICU care. Her hospital course was further complicated by fungal chest infection, difficulty with uptitrated tube feeds, renal dysfunction, and Pseudomonas urinary tract infection. Multiple goals of care discussions took place and she eventually was planning to transition to DNR/DNI. Ultimately, she was discharged back to her home asper family wishes. Since hospital discharge, she has been receiving home cares. She is apparently gained [id number] lb since being discharged from this prolonged hospitalization last month. She has also been receiving wound cares 3 times weekly for a wound sustain following a fall during her prolonged hospitaliz ation. She presented to an outside hospital with abdominal pain and fever where she was found to have bilateral pleural effusions and cholecystitis on imaging. The studies are being reviewed here by our colleagues in Radiology. The healthcare team at the outside institution was unable to place a percutaneous cholecystostomy tube. Therefore, she was initiated on antibiotics with IV Zosyn and vancomycin and transferred to [facility] for further management. Her family's requested she be FULL CODE this admission. Laboratory investigations are notable for normocytic anemia with hemoglobin 8.6, platelet count 265, leukocytosis with WBC 16.2 with neutrophilic predominance (new since prior hospitalization upon discharge in July 2023), sodium 133, potassium 5.6, BUN 41 creatinine 1.92, and normal liver tests outside of a mild elevation in alkaline phosphatase to 147. Lactate negative. She is on IV Zosyn. REVIEW OF SYSTEMS Negative except per HPI. PHYSICAL EXAM Vitals: BP 141/61 (BP Location: Left arm;Upper, Patient Position: Lying) Pulse 63 Temp 36.2 ??C(Oral) Resp 17 Ht 165.1 cm Wt 44.1 kg SpO2 91% BMI 16.18 kg/m?? General: Lying in bed, tremulous. Cachectic-appearing. Eyes: Clear, non-injected, anicteric sclera. ENT: MMM. No oropharyngeal exudate, erythema, or lesions. Lungs: Non-labored breathing on supplemental oxygen. Abdomen: Gastrostomy tube present with defect in middle port. Extremities: Warm and well-perfused UE and LE. Skin: No rashes. Neuro: Alert, oriented x 3. PERTINENT DIAGNOSTIC STUDIES LABS Recent Labs 08/21/23 0355 08/20/232056 WBC 16.2 H 16.9 H HGB 8.6 L 9.2 L PLT 265 273 INR -- 1.6 NA 133 L 135 CL 102 102 BUN 41 H 38 H CREATININE 1.92 H 1.88 H CALCIUM 8.9 8.7 L ALBUMIN 3.1 L 3.3 L 3.3 L BILITOT -- 0.5 AST -- 22 ALT -- 31 ALKPHOS -- 147 H ASSESSMENT AND PLAN Ms. Jacqueline Galvan is a 68 y.o. 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 Mrs. Galvan was transferred to [facility] from an outside institution after presenting with abdominal pain concerning for cholecystitis. Hepatobiliary was consulted for consideration of transcystic stent placementin the setting. Mrs. Galvan was transferred from an outside institution after presenting to a local emergency department with abdominal pain and imaging findings concerning for cholecystitis. The outside institution was unable to proceed with percutaneous drainage of the gallbladder as she was deemed a poor surgical candidate, and thus was transferred to [facility] for further management. We would recommend considering involvement of our colleagues in General surgery to determine if shewould be a candidate for interval cholecystectomy at a later time or if destination therapy would be required with transcystic drainage. Regardless, we can certainly proceed with ERCP for the purposes of transcystic/transpapillary gallbladder stent placement that may serve as destination therapy orstents could certainly be removed at the time of interval cholecystectomy. Antibiotics may otherwise be continued in the short term. She has a gastrostomy tube placed by IR in May 2023. There is a defect in the middle port and she is due for routine exchange. We will plan to complete this during ERCP today. PROBLEM LIST # Cholecystitis, not surgical candidate # ESRD secondary to unspecified glomerulonephritis s/p renal transplant (2006 complicated by allograft failure requiring second transplant 2017) # Immunosuppressed on mycophenolate, prednisone, and tacrolimus # Coronary artery disease s/p PCI (2005) # Abdominal aortic aneurysm # Osteoporosis # Hypertension # Hyperlipidemia # Chronic mesenteric ischemia # Malnutrition s/p gastrostomy tube placement resulting in prolonged hospitalization from 05/08/23-07/16/23 complicated by gastric perforation necessitating ICU care, fungal chest infection, difficulty with uptitrated tube feeds, renal dysfunction, and Pseudomonas urinary tract infection RECOMMENDATIONS - Proceed with ERCP for transcystic/transpapillary gallbladder drainage today. - PEG exchange order was placed by our service for routine exchange to take place during ERCP today. ADDENDUM 08/21/2023 3:30 PM CDT: ERCP was completed this afternoon. No filling defects were seen in the bile duct. However the gallbladder contained multiple filling defects consistent with cholelithiasis. The cystic duct was very narrow in caliber and extremely convoluted. A biliary sphincterotomy was performed, no post-sphincterotomy bleeding. Attempts were made to place a Glidewire through the long, narrowed, convoluted portion of the cystic duct more than 4 cm upstream from the cystic insertion into the common duct on several times (approximately 45 minutes), but unfortunately the cystic duct was not able to be traversedto the gallbladder. A submucosal bleb have potentially been induced on the medial side of the wall of the cystic duct. This did not appear to be a free-flowing wire puncture. Biliary tree was swept, nothing was found. A transpapillary stent was placed in the unlikely event that an actual wire puncture of the cystic duct had been induced with a temporary plastic biliary stent with a single external and internal flap in the common bile duct. Due to inability to traverse the cystic duct, we would recommend proceeding with percutaneous gallbladder drain placement with Interventional Radiology. Orders have been placed by our service to proceed with EGD with an ERCP capable endoscopist in 3 months to remove the common bile duct stent. If this is left in place longer than 3 months, the risk of stent occlusion will rise precipitously alongwith the risk of inducing cholangitis or biliary sepsis. The stent was placed only for the purpose of mitigating in unlikely wire puncture and small leak at the cystic duct. Any such leak would be highly likely to spontaneously seal over within 1-2 days. Therefore, need for stent should likely onlyspan a few days. PEG or gastrostomy tube was replaced. [facility] Gal[facility]. Recommend routine exchange of PEG tube in 3-5 months. - Please proceed with percutaneous cholecystotomy for gallbladder drainage as destination therapy given difficulty with cannulating the cystic duct for transpapillary gallbladder drainage. - Order placed by our service for EGD with ERCP-capable endoscopist to take place within 3 months to remove common bile duct stent. - If this is left in place longer than 3 months, the risk of stent occlusion will rise precipitously along with the risk of inducing cholangitis or biliary sepsis. The stent was placed only for the purpose of mitigating in unlikely wire puncture and small leak at the cystic duct. Any such leak would be highly likely to spontaneously seal over within 1-2 days. Therefore, need for stent should likely only span a few days. - Mrs. Galvan should continue to follow or establish with the [facility] for routine follow-up. Recommend routine exchange of PEG tube in 3-5 months. This patient was staffed with Dr. Hathaway, with the recommendations discussed with the primary team. Thank you for involving us in the care of this patient. We will sign off at this time. Please page the GI Hepatobiliary consult pager at [phone] with any questions or concerns. Bee Bermudez M.D. Gastroenterology Fellow 08/21/2023 documented in this encounter Nursing Notes * Gracia Gil M.S.N., R.N. - 08/30/2023 5:42 PM CDT Shift Goals: Safe dc to home self care and pt/Noah will be able to demonstrate flush & wound care to biliary tube via teach back method. Identify possible barriers to meeting goals/advancing plan of care: none End of Shift Summary: Jacqueline continues stable this shift. A&O. Makes needs known. Continues with HR in low 40s. Telemetry Holter monitor applied and tech did teaching with Pt/Noah. Continues withminimal PO intake. Tolerating TF. Increased to 30 ml/hr. Wound care done. Zenon denied pain/nausea. Continent to BSC. BM this shift. Adequate UOP. Drain teaching done with and supplies sent. PIVs removed. AVS reviewed with pt/Noah. Pt sent in WC to west door to meet spouse. Problem: PAIN - ADULT Goal: PT VERBALIZES/DEMONSTRATES ADEQUATE COMFORT LEVEL OR BASELINE Outcome: Adequate for Discharge Problem: KNOWLEDGE DEFICIT Goal: Patient/family/caregiver demonstrates understanding of disease process, treatment plan, medications, and discharge instructions Outcome: Adequate for Discharge Problem: INFECTION - ADULT Goal: Absence of infection during hospitalization Outcome: Adequate for Discharge Problem: SKIN/TISSUE INTEGRITY Goal: Skin/Tissue integrity maintained or improved Outcome: Adequate for Discharge Goal: Oral and Nasal mucous membranes remain intact Outcome: Adequate for Discharge Problem: SAFETY ADULT Goal: Maintain a safe environment Outcome: Adequate for Discharge Problem: DISCHARGE PLANNING Goal: Patient discharge needs identified Outcome: Adequate for Discharge Problem: Incontinence and/or Moisture Goal: Skin integrity is maintained or improved Outcome: Adequate for Discharge Problem: Compromised Skin Integrity Goal: Skin/Tissue integrity maintained or improved Outcome: Adequate for Discharge Goal: Oral and Nasal mucous membranes remain intact Outcome: Adequate for Discharge Goal: Incisions, wounds, or drain sites healing without S/S of infection Outcome: Adequate for Discharge Problem: POTENTIAL OR ACTUAL PRESSURE INJURY-ADULT Goal: Manage sensory Perception deficits to maintain and/or improve skin integrity Outcome: Adequate for Discharge Goal: Maintain optimal skin moisture to ensure or improve skin integrity Outcome: Adequate for Discharge Goal: Achieve optimal activity and/or mobility to maintain or improve skin integrity Outcome: Adequate for Discharge Goal: Nutrient intake appropriate for improving, restoring or maintaining skin integrity Outcome: Adequate for Discharge Goal: Minimize friction and/or shear to maintain or improve skin integrity Outcome: Adequate for Discharge * Gita Arceo R.N. - 08/28/2023 11:31 PM CDT Shift Goals: Clinical Goals for the Shift: Patient will consume 25% or more of each meal Identify possible barriers to meeting goals/advancing plan of care: End of Shift Summary: Problem: PAIN - ADULT Goal: PT VERBALIZES/DEMONSTRATES [...] Patient discharge needs identified Outcome: Progressing Problem: SAFETY ADULT - RISK FOR FALL AND OR FALL INJURY Goal: Patient remains free from fall/fall injury Outcome: Progressing Problem: POTENTIAL OR ACTUAL PRESSURE [...] integrity is maintained or improved Outcome: Progressing * Neha Chin M.D. - 08/28/2023 6:10 PM CDT UROLOGY CHIEF SERVICE CURBSIDE NOTE I was curbsided by the patient's primary team today regarding air in the bladder seen on noncontrast CT scan. Per primary team, patient is asymptomatic from a urologic standpoint. She does not have any urinarysymptoms. She did have recent indwelling Granados catheter. Imaging findings are consistent with recent Granados catheter placement and/or manipulation. There wasno evidence of air within the bladder wall. The bladder wall is also healthy appearing, without evidence of thickening or perivesical stranding/inflammation. Given patient is asymptomatic from a urinary standpoint, there is no intervention or treatment indicated for the air in the bladder. This should spontaneously resolve over time. Please reach out to our service with any further questions or concerns. This was discussed with Dr. Palencia, chief urology resident. Electronically signed by: Neha Chin MD PGY-1 Urology Urology chief service pager: [phone] from [phone] Emergency call pager: [phone] from [phone] * Lida Porter R.N., EufemiaS.R.N. - 08/28/2023 12:25 PM CDT Feeding Tube Site Care Indication for Consult: Feeding tube site check Tube Type and size: Gastrostomy with internal balloon ([email or web address] (GeekStatus)) Size: 14 Hungarian Connector Type: Small bore (ENFit) Date of tube placement: Replaced 08/21/2023 Placed by: GI Skin integrity at tube site: dry, intact, no redness Pain at tube site: Patient denied pain. Disc position: Disc was at desired distance from skin and did not need to be adjusted. (approximately 1/2 inch offskin and no pressure green from underside of disc) Final Tube marking visible at top of disc (face plate): 3.5 cm Tube Rotation: Tube was rotated one full turn. Tube insertion site was assessed and there was small amount of serous drainage at the site. Gauze was not present under the skin disc. The site was not cleaned at this time due to patient having severe nausea at the time of visit. A tube securement was placed to secure the tube. No hypergranulation tissue noted. Yeast not present. Recommendations: Site care to be completed per enteral feeding tube exit site care procedure. Leave insertion site open to air. Secure tube to abdomen with a tube pizano (Flexi-Trak or other). Rotate tube one full turn once per day. Clean the ENFit?? tube connector every 24 hours and when visibly soiled using a cleaning brush. * Yehuda Blandon RMarlysNMarlys - 08/27/2023 6:04 PM CDT Shift Goals: Clinical Goals for the Shift: Patient will consume 25% or more of each meal Identify possible barriers to meeting goals/advancing plan of care: Supplemental tube feeds, nausea, vomiting. End of Shift Summary: BP 148/62 (BP Location: Left arm;Upper, Patient Position: Lying) Pulse 102 Temp 36.8 ??C (Oral) Resp 18 Ht 165.1 cm Wt 41.6 kg SpO2 95% BMI 15.26 kg/m?? O2 has remained on 1 L on nasal cannula. Unable to decrease. Pt tolerating. Sats remain in low to mid 90s. Patient pleasant and cooperative with nursing cares during shift. A/O x3 Continent of bowel and bladder during shift. Ax1 pivot to commode. Emesis x1 in a.m., PRN Zofran given. Non-pharmaceutical use of essential oils (Mitzi & Spearmint) have helped nausea in afternoon hours. HR remains bradycardic in 40s. * Yehuda Blandon RMarlysN. - 08/26/2023 6:01 PM CDT Shift Goals: Clinical Goals for the Shift: Patient will maintain O2 sats of >92%/ ween O2 as tolerated Identify possible barriers to meeting goals/advancing plan of care: RF hx. End of Shift Summary: BP 159/63 (BP Location: Left arm;Upper, Patient Position: Semi-recumbent) Pulse (!) 41 Temp 36.6 ??C (Oral) Resp 17 Ht 165.1 cm Wt 41.6 kg SpO2 91% BMI 15.26 kg/m?? O2 weaned to 1 L on nasal cannula. Pt tolerating. Sats above 93% Patient pleasant and cooperative with nursing cares during shift. A/O x3 Incontinent x2 of bowel in a.m., PRN Lomotil given Granados catheter D/C'd in a.m., Patient continent and has voided x1 with assistance. Emesis x2 in a.m., PRN Zofran given BP has been inconsistent throughout the day, Hypertensive in early p.m. hours. Service aware. HR remains bradycardic in 40s. Problem: POTENTIAL OR ACTUAL PRESSURE INJURY-ADULT Goal: Nutrient intake appropriate for improving, restoring or maintaining skin integrity Outcome: Not Progressing Patient has not consumed more than 25% of any oral meal today. * Georgie Salinas R.N., CCRN - 08/25/2023 11:27 AM CDT Patient Transfer Note Patient transferred to: [facility] Accompanied by: DIGITAL PRODUCTION OPERATOR Report called? YES Nurse receiving report: charger operator helper Belongings sent with patient? YES Current vital signs: Vitals: 08/25/23 1115 BP: 148/62 Pulse: (!) 56 Resp: 16 Temp: 36.8 ??C SpO2: 90% Critical Care Service aware of current vital signs? YES Naa Salinas R.N., CCRN * Heena Otero R.N. - 08/25/2023 5:35 AM CDT Shift Goals: Clinical Goals for the Shift: Pt will maintain SpO2>92% End of Shift Summary: Significant changes in patient condition: None Pain control during shift: Scheduled Tylenol Family/social issues or concerns: None Barriers to discharge: Cholecystitis Patient progress: Patient A&Ox3, only intermittently confused and reoriented quickly. VS WNL. Adequate urine output net negative about 1L for shift. SpO2 >92% on 4L NC. Problem: SKIN/TISSUE INTEGRITY Goal: Skin/Tissue integrity maintained or improved Outcome: Progressing Note: Daily wound care completed on day shift; in specialty bed. Patient frequently repositioning self. Problem: SAFETY ADULT Goal: Maintain a safe environment Outcome: Progressing Note: Patient remained safe and free from fall entirety of shift. Remains staff 1:1 for impulsiveness Problem: Compromised Skin Integrity Goal: Skin/Tissue integrity maintained or improved Outcome: Progressing Note: Daily wound care completed on day shift; in specialty bed. Patient frequently repositioning self. Electronically signed by: Heena Otero R.N. 08/25/23 5:41 AM CDT * Lloyd Barreto R.RMarlysTMarlys, L.R.T. - 08/25/2023 2:42 AM CDT Patient is a 68 y.o. female admitted on 08/20/2023 Alert Information: Plan of Care: Assess respiratory needs. Principal Problem Cholecystitis Oxygen Therapy $Delivery Method: Nasal cannula Social History Tobacco Use Smoking Status Light Smoker Smokeless Tobacco Never No results for input(s): PO2 ART, PCO2 ART, PH ART in the last 24 hours. * Georgie Salinas R.N., MARIA L - 08/24/2023 6:19 PM CDT Shift Goals: Clinical Goals for the Shift: Pt will maintain SpO2>90 Identify possible barriers to meeting goals/advancing plan of care: fragility, pleural effusions End of Shift Summary: Patient underwent right thoracentesis today in which 900 mL were removed. RN was able to wean oxygen from 12 L nasal pendant to 4 L NC with sats >90%. Patient tolerated procedure well without complications. Granados catheter placed today for more accurate I&Os. Patient diuresed twice during shift. Patient worked with PT to get up to the chair today. Naa Salinas R.N., CCRN * Elena Jacome R.RMarlysTMarlys, L.R.T. - 08/24/2023 8:40 AM CDT Patient is a 68 y.o. female admitted on 08/20/2023 Shift Summary: Patient remains [place] nasal cannula, and no other respiratory intervention needed at this time. Respiratory Therapies and Medications: DuoNeb Q6 PRN PLAN OF CARE: RT will continue to assess respiratory status while in the ICU, and provide respiratory care as needed. RT to provide supplemental oxygen, and manage oxygen devices per protocol. Oxygen Therapy: $Delivery Method: [place] nasal cannula Flow Rate (L/min): 8 L/min Recent ABG: Results from last 7 days Lab Units 08/22/23 0640 POC PH ART GPOC 7.31* POC PCO2 ARTERIAL GPOC mm Hg 33 POC PO2 ART GPOC mm Hg 59* POC HCO3 ARTERIAL GPOC mmol/L 17* POC BASE EXC ART GPOC mmol/L -9* Principal Problem #1 Transplant Renal (HCC) #2 Malnutrition Severe Protein-Calorie (HCC) #3 Cholecystitis #4 Hyperkalemia Electronically signed by: Elena Jacome R.R.T., L.R.TMarlys 08/24/23 8:40 AM CDT * Heena Otero R.N. - 08/24/2023 3:46 AM CDT Shift Goals: Clinical Goals for the Shift: Pt will maintain SpO2>90 End of Shift Summary: Significant changes in patient condition: Patient oriented to person only Pain control during shift: Scheduled Tylenol Family/social issues or concerns: None at this time; Son and updated by nursing Barriers to discharge: Confusion, increased O2 requirements Patient progress: Patient oriented to self, frequent reorientation to place and time. Afebrile. SR rates 60s-70s. MAP >65. O2 requirements increased to 10L nasal pendant. Tube feedings continued. DIGITAL PRODUCTION OPERATOR 1:1 for safety. Problem: PAIN - ADULT Goal: PT VERBALIZES/DEMONSTRATES ADEQUATE COMFORT LEVEL OR BASELINE Outcome: Progressing Note: Verbalizes adequate comfort level with scheduled Tylenol. Problem: SAFETY ADULT Goal: Maintain a safe environment Outcome: Progressing Note: Patient required 1:1 staff for safety; confused overnight pulling at lines, tubes, & drains. Redirectable with frequent reorientation. Patient rest encouraged. Electronically signed by: Heena Otero R.N. 08/24/23 6:41 AM CDT * Teresa Patel R.R.T., L.R.TMarlys - 08/24/2023 3:06 AM CDT Jacqueline Galvan is a 68 y.o. female admitted following cholecystitis on 08/20/2023. PMH: No known pulmonary history Significant Events During Current Stay: 08/21: WEAVING INSTRUCTOR increased 02 needs Recent ABG: No results for input(s): PO2 ART, PCO2 ART, PH ART, HCO3 ART, BASE EXC ART in the last 24hours. Respiratory Therapies: None at this time. Respiratory Medications: DuoNeb prn Shift Summary: Patient on 8 lpm nasal pendant. No acute respiratory concerns at this time. Plan of Care: Continue to monitor and assess respiratory status per ICU protocol. Anesthesia bag/ mask at bedside. Electronically signed by: Teresa Patel R.R.T., L.RGlory 08/24/23 3:12 AM CDT * Cherie Rosenthal R.RGlory - 08/23/2023 12:20 PM CDT Patient is a 68 y.o. female admitted on 08/20/2023 Principal Problem: Cholecystitis PMH: Past Medical History: Diagnosis Date Chronic Kidney Disease NOS Coronary Artery Disease (Unspecified) stent placement Heart Failure NOS Hyperlipidemia Pain Abdominal NOS Shortness Of Breath Plan of Care: Patient started the shift on nasal cannula. Patient continued to desaturate and was placed on a nasal pendant. Continue to wean oxygen as tolerated. Oxygen Therapy: $Delivery Method: [place] nasal cannula Flow Rate (L/min): 8 L/min Cherie Rosenthal R.R.T. 08/23/23 12:20 PM CDT * Elfego Hanks R.R.T., L.RMarlysTMarlys - 08/23/2023 6:43 AM CDT Patient is a 68 y.o. female admitted on 08/20/2023 Principal Problem: Cholecystitis PMH: Past Medical History: Diagnosis Date Chronic Kidney Disease NOS Coronary Artery Disease (Unspecified) stent placement Heart Failure NOS Hyperlipidemia Pain Abdominal NOS Shortness Of Breath Shift Summary: Patient remained on 4 L NC throughout the night with no acute respiratory events. Plan of Care: Anesthesia bag and mask at bedside, Wean supplemental oxygen as tolerated by patient, Administer respiratory medications as ordered, Assess and monitor respiratory status per ICU protocol, and Continue to assess BID Oxygen Therapy: $Delivery Method: Nasal cannula Flow Rate (L/min): 4 L/min Electronically signed by: Elfego Hanks R.R.T., L.R.T. 08/23/23 6:44 AM CDT * John Fernandez R.R.T., L.R.T. - 08/22/2023 4:15 PM CDT Patient is a 68 y.o. female admitted on 08/20/2023 Alert Information: Plan of Care: Pt admitted this AM through WEAVING INSTRUCTOR call for increasing O2 needs. Pt remained comfortablein bed on HFNC 45L 60% until pt could have thoracentesis for removal of 800ml of pleural eff fluid.Pt was later transitioned to nasal cannula and tolerated well. Plan to continue to monitor and reassess respiratory status in ICU. Principal Problem Cholecystitis Oxygen Therapy $Delivery Method: Nasal cannula Social History Tobacco Use Smoking Status Light Smoker Smokeless Tobacco Never No results for input(s): PO2 ART, PCO2 ART, PH ART in the last 24 hours. Skin integrity checked: * Adam Mendoza R.N., CCRN - 08/22/2023 4:01 PM CDT Problem: PAIN - ADULT Goal: PT VERBALIZES/DEMONSTRATES ADEQUATE COMFORT LEVEL OR BASELINE Outcome: Progressing Problem: KNOWLEDGE DEFICIT Goal: Patient/family/caregiver demonstrates understanding of disease process, treatment plan, medications, and discharge instructions Outcome: Progressing Problem: SKIN/TISSUE INTEGRITY Goal: Skin/Tissue integrity maintained or improved Outcome: Progressing Shift Goals: Clinical Goals for the Shift: patient to remain sats >92% Identify possible barriers to meeting goals/advancing plan of care: Past medical history and ongoing disease process End of Shift Summary: Pt bedside thoracentesis performed 850ml was sent to lab for culturing. Lung sounds clear bilateral bases. Weaned from HFNC to 4L NC. Bedside echo performed and taken to HIDA scan this afternoon. Family visited and updated. * Ruddy Benitez R.N. - 08/22/2023 5:46 AM CDT Pt will return to oxygenation baseline of 4L NC by 08/23 Pt now requiring 6L o2 via simple mask; new large L pleural effusion; new pericardial effusion. Lasix 100mg IVP given. Will continue to monitor. * Tammy Regalado R.N. - 08/21/2023 5:56 PM CDT Problem: INFECTION - ADULT Goal: Absence of infection during hospitalization Outcome: Progressing Note: She has remained afebrile this shift, started on Vanco and meropenem today and DC'd zosyn. Blood cultures pending and infectious disease following-new ordered placed for a serum CMV DNA PCR Problem: SKIN/TISSUE INTEGRITY Goal: Skin/Tissue integrity maintained or improved Outcome: Progressing Note: WOC RN was consulted and performed bedside wound care today-see orders. PMR wound consulted and will see her tomorrow to possibly start mist therapy to her R knee wound. Shift Goals: Clinical Goals for the Shift: Patient will maintain adequate oxygenation and ventilation Identify possible barriers to meeting goals/advancing plan of care: hx of SOB and home O2 need End of Shift Summary: The patient was on 4 liters at start of shift but was found to be saturating 85% on 4 liters-placed on 5 liters and maintaining in the 90%. She had a PEG tube exchange today along with had an ERCP. They swept her bile ducts and placed a plastic stent into her common bile duct.They wanted to place a stent into her gallbladder, but couldn't due to her complex anatomy. NPO tonight for her possible EGD vs IR for a percutaneous cholecystomy tube placement. INPATIENT SHIFT SUMMARY ORIENTATION: A&O x 3 SAFETY MEASURES: Routine rounding, bed alarm ASSISTED MOBILITY: X 2 Gait belt VITALS: Q 4 hrs-post op, been stable on 5 liters INTAKE: Low intake of solids and liquids OUTPUT: Low output of solids and liquids PAIN: Having pain at times but refusing medications PRN MEDICATIONS THIS SHIFT: None DVT PROPHYLAXIS: SCDs CHG/GRANADOS CARE NEEDS: None * Natali Wagner R.N. - 08/21/2023 3:14 PM CDT PEG/PEJ Nursing Procedure Note ASSESSMENT / PLAN Patient Name: Jacqueline Galvan Department : [facility], FOURTH FLOOR SUBJECTIVE Past Medical History: Diagnosis Date Chronic Kidney Disease NOS Coronary Artery Disease (Unspecified) stent placement Heart Failure NOS Hyperlipidemia Pain Abdominal NOS Shortness Of Breath Past Surgical History: Procedure Laterality Date APPLICATION WOUND VAC ABDOMEN N/A 05/19/2023 Procedure: APPLICATION WOUND VACUUM ABDOMEN; Surgeon: Jt Hoang M.D.; Location: [facility] OR DEBRIDEMENT AND IRRIGATION - ABDOMINAL WOUND N/A 05/29/2023 Procedure: SHARP EXCISION OF SKIN AND SUBCUTANEOUS TISSUE MEASURING 2 cm x15 cm FOR TOTAL AREA OF 30 cm squared, IRRIGATION ABDOMINAL WOUND, CLOSURE OVER 19 HONDURAN ROUND ALEKSANDRA DRAIN, SECONDARY SKIN CLOSURE WITH [...] table preparation of renal allograft with one Social History Socioeconomic History Marital status: Tobacco Use Smoking status: Light Smoker Smokeless tobacco: Never Substance and Sexual Activity Alcohol use: Not Currently Drug use: Never Sexual activity: Defer Social Determinants of Health Food Insecurity: No Food Insecurity (08/20/2023) Hunger Vital Sign Worried About Running Out of Food in the Last Year: Never true Ran Out of Food in the Last Year: Never true Transportation Needs: No Transportation Needs (08/20/2023) PRAPARE - Transportation Lack of Transportation (Medical): No Lack of Transportation (Non-Medical): No Intimate Partner Violence: Not At Risk (08/20/2023) Humiliation, Afraid, Rape, and Kick questionnaire Fear of Current or Ex-Partner: No Emotionally Abused: No Physically Abused: No Sexually Abused: No Housing Stability: Low Risk (08/20/2023) Housing Stability Housing: Living Situation: I have a steady place to live OBJECTIVE Procedure Patient presents to [facility] Patient being seen for: PEG Type of procedure: Replacement Location of tube: Stomach Brand of tube: Avanos Type of connector: small-bore Reference number: [id number] Size of Tube: 14 Fr Top of skin disc level: 3.5 Internal Retention Device: Balloon Balloon volume in mL: 5 T Fasteners: Not Present Skin integrity of site: Granulation Granulation at site: Yes Granulation treated with: Silver Nitrate Ostomy tube not altered. Ostomy appliance not applied. Complications: None Was the tube labeled: No Verification of tube done by: Gastic Content Aspiration After Visit Information Recommendations for after procedure: Follow nursing guideline PEG/PEJ Tube Site Care and Tube Replacement, Home [facility], Follow instructions page 6-12 in PEG/PEJ booklet for post tube placement activity, pain control, site care and Contact number is in wallet card and PEG/PEJ booklet for any questions or concers related to tube Return appointment timeframe: 3-5 months Tube is used for: Feeding When may you use tube: May use tube immediately Tube placed to gravity: No Patient Education Learning needs assessment. Who is being assessed: Patient Any barriers to learning: None Learning preference: Listening Education: PEG/PEJ Wallet Card ([id number]) Exchanged during ERCP\ documented in this encounter Miscellaneous Notes * Hospital Course - David Joy M.D. - 08/21/2023 5:20 PM CDT Mrs. Jacqueline Galvan is a 68 y.o. female who presents with acute cholecystitis. 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 [facility]-Admission ([facility] 08/20/23 She presented at an outside hospital for fever, and imaging was suggestive of acute cholecystitis. She was deemed to be a poor surgical candidate and was transferred to [facility] for further interventions. [facility] Admission to General Medicine 3 Service: 08/20/23 - 08/22/23 On arrival to the floor the patient was hemodynamically stable and in no acute distress. She was initially on Zosyn but given history of resistance she was started on vancomycin and meropenem. She was noted to be hyperkalemic to 5.7 and given her history of renal transplant nephrology was consultedwho recommended Lokelma and gentle hydration with improvement to 4.3. Surgery evaluated the patientin hospital and determined that she was not a surgical candidate now or in the foreseeable future given her previous ex lap. It was recommended to proceed with transcystic stent placement for destination therapy however during ERCP on 08/21/2023 it was noted that the patient had a tight cystic ductand so was unable to have a stent placed. After arriving back to the floor on 08/21 patient was noted to have worsening oxygen requirements and increased heart rate. An WEAVING INSTRUCTOR was called and the patient was subsequently taken to the ICU further evaluation and management. MICU: 08/22/23 - 08/25/23 Patient presented with acute hypoxic respiratory failure requiring high-flow oxygen. Radiographic imaging revealed left pleural effusion and pericardial effusions. Patient developed AFib with RVR in setting of her left pleural effusion and acute hypoxic respiratory failure. Oxygen requirements improved after thoracentesis. Pleural studies showed transudative effusion. HRS was consulted in the setting of prolonged conversion pauses and afib with RVR, who recommended against PPM and amiodarone was initiated. Meropenem was continued. HIDA positive, she underwent cholecystostomy tube by IR on 08/22/2023 for source control. Due to worsening oxygen requirements, she was assessed and found to havenew pleural effusion on right side, she underwent repeat thoracentesis with subsequent improvement of her oxygenation. Fluid analysis showed exudative effusion, likely inflammatory infiltrate due to proximity of gallbladder. Due to improvements in oxygen status, Mrs. Galvan was transferred to floor on 08/25/23. Transfer to General Medicine 3 Service: 08/25/23 - 08/30/2023 Upon arrival to the floor, she was hemodynamically stable with no acute concerns. For her acute cholecystitis, she continued on meropenem 500 mg BID until 08/27/23 with plans for percutaneous cholecystostomy tube exchange in 3 months. She came to the floor on 2L nasal cannula and had trouble weaning off of oxygen. POCUS revealed left pleural effusion resolved with minimal evidence of effusion but her right pleural effusion had accumulated more fluid. Interventional pulmonology consulted for thoracocentesis which was done on 08/27and 08/28 with significant improvement in the patient's oxygenation. She was eventually weaned off oxygen. Echocardiography performed on 08/27/23 demonstrated resolution of pericardial effusion with anEF of 60%. She continued on amiodarone 400 mg until 08/30/23 and was transitioned to 200 mg for 3 months. She was discharged with 2 week ambulatory cardiac monitoring system, with appointment to follow up with Cardiology. Additionally, the patient will require follow up with Ophthalmology as well asrepeat labs including LFTs and TSH in 4-6 weeks. Nephrology closely followed her during her stay and recommended reduced therapeutic goal for tacrolimus trough levels due to her proximity from transplant. Additionally, home torsemide 100 mg transitioned to bumetanide 2 mg which was subsequently increased to 4 mg b.i.d. to assist with her volume re tention.. Tacrolimus was changed to via G tube due to vomiting with improvement in levels, transitioned to sublingual on discharge. Her nutritional status declined further while in the hospital with an admission weight of 44.1 kg and discharge weight of 41.6 kg. Multidisciplinary Nutrition team was consulted who provided tube feeding recommendations, including continuous rate which was transitioned to intermittent on discharge.It was then recommended for the patient to transition back to her home regimen given that she had improvement in her weight at that time. She had an episode of hematemesis on 08/27 but continued to remain hemodynamically stable with stable hemoglobin. This occurred after the patient was restarted onEliquis given her AFib as well as chemical cardioversion with amiodarone. Given concern for bleeding, the Eliquis was held pending resolution. Unfortunately on 08/29 her drain was noted to have dark red fluid, consistent with blood. Vascular Interventional Radiology was notified who flushed the drain and reocmmended continued observation. Wediscussed with the patient the recommendation for observation of the drain output while in the hospital but the patient was hopeful for discharge and it was decided to plan for discharge on 08/30/2023with close follow up in the outpatient setting. The patient was provided with strict return precautions as well as counseled on what to observe particularly as it relates to bleeding from her cholecystostomy tube and were to follow up if this was to occur. Additionally, discussed changes in her diuretic management as well as follow up with Interventional pulmonology for outpatient thoracentesis. Discussed with the patient the risk for stroke gi andrés that she has currently not anticoagulated in the setting of recent chemical cardioversion. Currently risk of bleeding outweighs the risk of stroke and so the patient will follow up with PCP and Cardiology in the outpatient setting for resumption of Eliquis as soon as possible. In the interim given her CAD, will restart her aspirin upon discharge. Despite the changes discussed above, the patient was determined to be relatively stable for discharge and in collaboration with the patient and per patient preference discharged home on 08/30/2023 with close follow up in the outpatient setting. documented in this encounter Plan of Treatment Upcoming Encounters Date Type Department Care Team (Latest Contact Info) Description 01/03/2024 2:15 PM CDT Clinical Communication Virtual Review in [place], [place] [address] [place] [address] 01/07/2024 3:00 PM CDT Office Visit Division of Gastroenterology in [address] [phone] Hank Garner Jr., M.D. [address] [place] [phone] Pending Results Name Type Priority Associated Diagnoses Date /Time Hypoglycemic Survey Lab Timed 08/21 12:58 PM CDT Scheduled Referrals Name Type Priority Associated Diagnoses Order Schedule Cardiovascular Disease - General cardiology consult (clinic) Outpatient Referral Routine Tachy Bennie Syndrome (HCC) Expected: 08/30/2023, Expires: 11/28/2024 documented as of this encounter Procedures Procedure Name Priority Date/Time Associated Diagnosis Comments ECG AMBULATORY REAL TIME CARDIAC MONITORING - [facility] Routine 09/12/2023 12:28 PM CDT Atrial Fibrillation Personal History Tachy Bennie Syndrome (HCC) HEMOGLOBIN, B Timed 08/30/2023 4:11 PM CDT RENAL FUNCTION PANEL, S Routine 08/30/2023 7:42 AM CDT CYSTATIN C WITH EGFR Routine 08/30/2023 7:42 AM CDT TACROLIMUS LEVEL, B Timed 08/30/2023 7 :42 AM CDT CBC WITH DIFFERENTIAL, B Routine 08/30/2023 7:42 AM CDT MAGNESIUM, S Routine 08/30/2023 7:42 AM CDT NE THORACENTESIS PLEURA W IMG Routine 08/29/2023 3:27 PM CDT Effusion Pleural ADULT OXYGEN THERAPY Routine 08/29/2023 8:01 AM CDT REMOTE OXIMETRY MONITORING CONT. Routine 08/29/2023 8:01 AM CDT RENAL FUNCTION PANEL, S Routine 08/29/2023 7:58 AM CDT CYSTATIN C WITH EGFR Routine 08/29/2023 7:58 AM CDT CBC WITH DIFFERENTIAL, B Routine 08/29/2023 7:58 AM CDT MAGNESIUM, S Routine 08/29/2023 7:58 AM CDT ADULT OXYGEN THERAPY Routine 08/28/2023 8:00 PM CDT REMOTE OXIMETRY MONITORING CONT. Routine 08/28/2023 8:00 PM CDT HEMOGLOBIN, B Timed 08/28/2023 6:58 PM CDT DIPSTICK, U Routine 08/28/2023 5:32 PM CDT MICROSCOPIC MANUAL Routine 08/28/2023 5: 32 PM CDT BACTERIAL CULTURE, AEROBIC + SUSC, URINE Routine 08/28/2023 5:32 PM CDT PH, U Routine 08/28/2023 5:32 PM CDT OSMOLALITY, U Routine 08/28/2023 5:32 PM CDT URINALYSIS WITH MICROSCOPIC Routine 08/28/2023 5:32 PM CDT NE THORACENTESIS PLEURA W IMG Routine 08/28/2023 3:22 PM CDT Effusion Pleural CT ABDOMEN PELVIS WITHOUT IV CONTRAST RAD - Routine (most inpatients and all outpatients) 08/28/2023 1:15 PM CDT CBC WITH DIFFERENTIAL, B STAT 08/28/2023 11:23 AM CDT LIPASE, S/P STAT 08/28/2023 11:23 AM CDT LACTATE, B/P STAT 08/28/2023 11:23 AM CDT AMYLASE, TOT, S STAT 08/28/2023 11:23 AM CDT DX ABDOMEN SUPINE WITH UPRIGHT OR DECUBITUS 2 VIEWS RAD - Routine (most inpatients and all outpatients) 08/28/2023 8:57 AM CDT ADULT OXYGEN THERAPY Routine 08/28/2023 8:01 AM CDT REMOTE OXIMETRY MONITORING CONT. Routine 08/28/2023 8:01 AM CDT RENAL FUNCTION PANEL, S Routine 08/28/2023 7:40 AM CDT HEPATIC FUNCTION PANEL, S Routine 08/28/2023 7:40 AM CDT TACROLIMUS LEVEL, B Timed 08/28/2023 7 :40 AM CDT CBC WITH DIFFERENTIAL, B Routine 08/28/2023 7:40 AM CDT MAGNESIUM, S Routine 08/28/2023 7:40 AM CDT ADULT OXYGEN THERAPY Routine 08/27/2023 8:00 PM CDT REMOTE OXIMETRY MONITORING CONT. Routine 08/27/2023 8:00 PM CDT RT TO ARRANGE FOR HOME DME Routine 08/27/2023 2:02 PM CDT (TTE) 2D LIMITED WITH LIMITED DOPPLER Routine 08/27/2023 9:01 AM CDT ADULT OXYGEN THERAPY Routine 08/27/2023 8:00 AM CDT REMOTE OXIMETRY MONITORING CONT. Routine 08/27/2023 8:00 AM CDT RENAL FUNCTION PANEL, S Routine 08/27/2023 7:45 AM CDT CYSTATIN C WITH EGFR Routine 08/27/2023 7:45 AM CDT TACROLIMUS LEVEL, B Timed 08/27/2023 7 :45 AM CDT CBC WITH DIFFERENTIAL, B Routine 08/27/2023 7:45 AM CDT MAGNESIUM, S Routine 08/27/2023 7:45 AM CDT REMOTE OXIMETRY MONITORING CONT. Routine 08/26/2023 8:00 PM CDT ADULT OXYGEN THERAPY Routine 08/26/2023 8:00 PM CDT REMOTE OXIMETRY MONITORING CONT. Routine 08/26/2023 8:01 AM CDT ADULT OXYGEN THERAPY Routine 08/26/2023 8:01 AM CDT RENAL FUNCTION PANEL, S Timed 08/26/2023 7:33 AM CDT CYSTATIN C WITH EGFR Routine 08/26/2023 7:33 AM CDT TACROLIMUS LEVEL, B Timed 08/26/2023 7 :33 AM CDT CBC WITH DIFFERENTIAL, B Routine 08/26/2023 7:33 AM CDT MAGNESIUM, S Timed 08/26/2023 7:33 AM CDT ECG Routine 08/26/2023 7:18 AM CDT RENAL FUNCTION PANEL, S Timed 08/25/2023 8:23 PM CDT MAGNESIUM, S Timed 08/25/2023 8:23 PM CDT ADULT OXYGEN THERAPY Routine 08/25/2023 8:00 PM CDT REMOTE OXIMETRY MONITORING CONT. Routine 08/25/2023 8:00 PM CDT ADULT OXYGEN THERAPY Routine 08/25/2023 8:00 AM CDT REMOTE OXIMETRY MONITORING CONT. Routine 08/25/2023 8:00 AM CDT RENAL FUNCTION PANEL, S Timed 08/25/2023 7:23 AM CDT TACROLIMUS LEVEL, B Timed 08/25/2023 7 :23 AM CDT CBC WITH DIFFERENTIAL, B Routine 08/25/2023 7:23 AM CDT MAGNESIUM, S Timed 08/25/2023 7:23 AM CDT MRSA/STAPHYLOCOCCUS AUREUS, NASAL, BY PCR Routine 08/25/2023 6:39 AM CDT RENAL FUNCTION PANEL, S Timed 08/24/2023 8:34 PM CDT MAGNESIUM, S Timed 08/24/2023 8:34 PM CDT ADULT OXYGEN THERAPY Routine 08/24/2023 8:00 PM CDT REMOTE OXIMETRY MONITORING CONT. Routine 08/24/2023 8:00 PM CDT LACTATE DEHYDROGENASE (LD), S Timed 08/24/2023 2:58 PM CDT DX CHEST PORTABLE 1 VIEW RAD - Semiurgent (Fast; most ED patients; some inpatients) 08/24/2023 2:23 PM CDT NE THORACENTESIS PLEURA W IMG Routine 08/24/2023 1:49 PM CDT Effusion Pleural BROAD RANGE BACTERIA PCR AND SEQUENCING Routine 08/24/2023 12:50 PM CDT PROTEIN, TOTAL, BF Routine 08/24/2023 12:50 PM CDT BACTERIAL CULTURE, AEROBIC + SUSC Routine 08/24/2023 12:50 PM CDT CELL COUNT AND DIFFERENTIAL, BF Routine 08/24/2023 12:50 PM CDT TRIGLYCERIDES, BF Routine 08/24/2023 12:50 PM CDT PH, PLEURAL FLUID Routine 08/24/2023 12:50 PM CDT FUNGAL SMEAR Routine 08/24/2023 12:50 PM CDT GRAM STAIN Routine 08/24/2023 12:50 PM CDT FUNGAL CULTURE, ROUTINE Routine 08/24/2023 12:50 PM CDT LACTATE DEHYDROGENASE (LD), BF Routine 08/24/2023 12:50 PM CDT BILIRUBIN, BODY FLUID Routine 08/24/2023 12:50 PM CDT DX CHEST PORTABLE 1 VIEW RAD - Semiurgent (Fast; most ED patients; some inpatients) 08/24/2023 8:19 AM CDT ADULT OXYGEN THERAPY Routine 08/24/2023 8:00 AM CDT REMOTE OXIMETRY MONITORING CONT. Routine 08/24/2023 8:00 AM CDT RENAL FUNCTION PANEL, S Timed 08/24/2023 7:54 AM CDT TACROLIMUS LEVEL, B Timed 08/24/2023 7 :54 AM CDT MAGNESIUM, S Timed 08/24/2023 7:54 AM CDT PROTEIN, TOTAL, S/P Routine 08/24/2023 7 :42 AM CDT COPPER, S Routine 08/24/2023 4:14 AM CDT CERULOPLASMIN, S Routine 08/24/2023 4:14 AM CDT ZINC, S Routine 08/24/2023 4:14 AM CDT VITAMIN A, S Routine 08/24/2023 4:14 AM CDT SELENIUM, S Routine 08/24/2023 4:14 AM CDT CBC WITH DIFFERENTIAL, B Routine 08/24/2023 4:14 AM CDT ASCORBIC ACID (VITAMIN C), P Routine 08/24/2023 4:13 AM CDT ADULT OXYGEN THERAPY Routine 08/23/2023 8:01 PM CDT REMOTE OXIMETRY MONITORING CONT. Routine 08/23/2023 8:01 PM CDT TROPONIN T, 2H/6H, 5TH GEN, P Timed 08/23/2023 6:38 PM CDT RENAL FUNCTION PANEL, S Timed 08/23/2023 6:38 PM CDT MAGNESIUM, S Timed 08/23/2023 6:38 PM CDT DX CHEST PORTABLE 1 VIEW RAD - Emergent (Fastest; for the most critically ill patients) 08/23/2023 3:59 PM CDT TROPONIN T, BASELINE, 5TH GEN, P STAT 08/23/2023 3:53 PM CDT LIPID PANEL, S STAT 08/23/2023 3:53 PM CDT THYROID FUNCTION CASCADE, S STAT 08/23/2023 3:53 PM CDT HEMOGLOBIN A1C, B STAT 08/23/2023 3:5 3 PM CDT ECG STAT 08/23/2023 3:16 PM CDT DIPSTICK, U Routine 08/23/2023 10:14 AM CDT MICROSCOPIC MANUAL Routine 08/23/2023 10:14 AM CDT PH, U Routine 08/23/2023 10:14 AM CDT OSMOLALITY, U Routine 08/23/2023 10:14 AM CDT URINALYSIS WITH MICROSCOPIC Routine 08/23/2023 10:14 AM CDT ADULT OXYGEN THERAPY Routine 08/23/2023 8:01 AM CDT REMOTE OXIMETRY MONITORING CONT. Routine 08/23/2023 8:01 AM CDT LACTATE FOR SEPSIS WITH REFLEX STAT 08/23/2023 7:51 AM CDT TACROLIMUS LEVEL, B STAT 08/23/2023 7 :51 AM CDT LACTATE DEHYDROGENASE (LD), S Timed 08/23/2023 7:51 AM CDT RENAL FUNCTION PANEL, S Routine 08/23/2023 3:09 AM CDT CBC WITH DIFFERENTIAL, B Routine 08/23/2023 3:09 AM CDT MAGNESIUM, S Timed 08/23/2023 3:09 AM CDT MAGNESIUM, S Routine 08/23/2023 3:09 AM CDT VANCOMYCIN, RANDOM, S Routine 08/23/2023 3:09 AM CDT BETA-HYDROXYBUTYRATE, S Routine 08/23/2023 2:59 AM CDT PROTEIN, TOTAL, S/P Routine 08/23/2023 2 :59 AM CDT HEMOGLOBIN A1C, B Routine 08/23/2023 2:5 9 AM CDT TROPONIN T, 2H/6H, 5TH GEN, P Timed 08/23/2023 1:28 AM CDT TROPONIN T, BASELINE, 5TH GEN, P STAT 08/22/2023 11:23 PM CDT ECG STAT 08/22/2023 11:13 PM CDT GLUCOSE POCT, B Routine 08/22/2023 11:02 PM CDT ECG STAT 08/22/2023 9:59 PM CDT PROTEIN, TOTAL, BF Routine 08/22/2023 8: 09 PM CDT LACTATE DEHYDROGENASE (LD), BF Routine 08/22/2023 8:06 PM CDT CHOLESTEROL, BF Routine 08/22/2023 8:02 PM CDT ADULT OXYGEN THERAPY Routine 08/22/2023 8:00 PM CDT REMOTE OXIMETRY MONITORING CONT. Routine 08/22/2023 8:00 PM CDT POTASSIUM, S/P Timed 08/22/2023 7:57 PM CDT IR PERCUTANEOUS CHOLECYSTOSTOMY TUBE PLACEMENT RAD - Routine (most inpatients and all outpatients) 08/22/2023 5:18 PM CDT BACTERIAL CULTURE, AEROBIC + SUSC Timed 08/22/2023 5:15 PM CDT GRAM STAIN Timed 08/22/2023 5:15 PM CDT FUNGAL CULTURE, ROUTINE Timed 08/22/2023 5:15 PM CDT BACTERIAL CULTURE, ANAEROBIC + SUSC Timed 08/22/2023 5:15 PM CDT NM HEPATOBILIARY WITH PHARM RAD - Semiurgent (Fast; most ED patients; some inpatients) 08/22/2023 3:41 PM CDT (TTE) 2D ECHO DOPPLER COLOR Routine 08/22/2023 2:43 PM CDT BROAD RANGE BACTERIA PCR AND SEQUENCING Routine 08/22/2023 2:18 PM CDT CYTOLOGY NON-LINE TENDER FLAKEBOARD Routine 08/22/2023 2:18 PM CDT LEUKEMIA/LYMPHOMA PHENOTYPE, BODY FLUID Routine 08/22/2023 2:18 PM CDT BACTERIAL CULTURE, AEROBIC + SUSC Routine 08/22/2023 2:18 PM CDT CELL COUNT AND DIFFERENTIAL, BF Routine 08/22/2023 2:18 PM CDT MYCOBACTERIAL CULTURE, V Routine 08/22/2023 2:18 PM CDT FUNGAL SMEAR Routine 08/22/2023 2:18 PM CDT ACID FAST SMEAR FOR MYCOBACTERIUM Routine 08/22/2023 2:18 PM CDT GRAM STAIN Routine 08/22/2023 2:18 PM CDT FUNGAL CULTURE, ROUTINE Routine 08/22/2023 2:18 PM CDT GLUCOSE, BODY FLUID Routine 08/22/2023 2 :18 PM CDT HYPOGLYCEMIC SURVEY, B Timed 08/22/2023 12:58 PM CDT POTASSIUM, S/P Timed 08/22/2023 12:58 PM CDT NE THORACENTESIS PLEURA W IMG Routine 08/22/2023 11:45 AM CDT Effusion Pleural Malnutrition Severe Protein-Calorie (HCC) CBC WITH DIFFERENTIAL, B STAT 08/22/2023 9:49 AM CDT TROPONIN T, 5TH GEN, P STAT 08/22/2023 9:49 AM CDT MAGNESIUM, S STAT 08/22/2023 9:49 AM CDT BASIC METABOLIC PANEL, S/P STAT 08/22/2023 9:49 AM CDT ECG STAT 08/22/2023 9:03 AM CDT GLUCOSE POCT, B Routine 08/22/2023 8:33 AM CDT ADULT OXYGEN THERAPY Routine 08/22/2023 8:01 AM CDT REMOTE OXIMETRY MONITORING CONT. Routine 08/22/2023 8:01 AM CDT LACTATE, POCT, B Routine 08/22/2023 6:44 AM CDT ECG STAT 08/22/2023 6:42 AM CDT ABG AND LYTES CG8+, POCT, B Routine 08/22/2023 6:40 AM CDT GLUCOSE POCT, B Routine 08/22/2023 6:23 AM CDT LACTATE, B/P STAT 08/22/2023 4:27 AM CDT DX CHEST PORTABLE 1 VIEW RAD - Semiurgent (Fast; most ED patients; some inpatients) 08/22/2023 3:06 AM CDT PATIENT STATUS STAT 08/22/2023 3:00 AM CDT VENOUS BLOOD GAS W/COOX, B STAT 08/22/2023 3:00 AM CDT RENAL FUNCTION PANEL, S STAT 08/22/2023 2:59 AM CDT RENAL FUNCTION PANEL, S Routine 08/22/2023 2:59 AM CDT CBC WITH DIFFERENTIAL, B Routine 08/22/2023 2:59 AM CDT MAGNESIUM, S Routine 08/22/2023 2:59 AM CDT VANCOMYCIN, RANDOM, S Routine 08/22/2023 2:59 AM CDT POTASSIUM, S/P Timed 08/22/2023 12:09 AM CDT REMOTE OXIMETRY MONITORING CONT. Routine 08/21/2023 10:58 PM CDT REMOTE OXIMETRY MONITORING CONT. Routine 08/21/2023 10:58 PM CDT CMV DNA DETECT/QUANT, P Timed 08/21/2023 9:19 PM CDT POTASSIUM, S/P Timed 08/21/2023 9:18 PM CDT ADULT OXYGEN THERAPY Routine 08/21/2023 8:01 PM CDT FL FLUORO LESS THAN 1 HOUR RAD - Routine (most inpatients and all outpatients) 08/21/2023 3:45 PM CDT NON-ENDOSCOPIC TUBE PROCEDURE Routine 08/21/2023 1:43 PM CDT EGD ? PERCUTANEOUS ENDOSCOPIC GASTROSTOMY/JEJUNOSTO MY Routine 08/21/2023 1:43 PM CDT ERCP Routine 08/21/2023 1:17 PM CDT ERCP Routine 08/21/2023 1:17 PM CDT POTASSIUM, S/P STAT 08/21/2023 1:08 PM CDT US KIDNEY TRANSPLANT LEFT WITH DOPPLER RAD - Routine (most inpatients and all outpatients) 08/21/2023 8:24 AM CDT ADULT OXYGEN THERAPY Routine 08/21/2023 8:01 AM CDT TACROLIMUS LEVEL, B Timed 08/21/2023 7 :42 AM CDT INTERPRETATION OF OUTSIDE US ABDOMEN AND OR PELVIS RAD - Routine (most inpatients and all outpatients) 08/21/2023 6:25 AM CDT INTERPRETATION OF OUTSIDE CT ABDOMEN AND OR PELVIS RAD - Routine (most inpatients and all outpatients) 08/21/2023 6:25 AM CDT HC OSMOLALITY ASSAY URINE Routine 08/21/2023 4:10 AM CDT DIPSTICK, U Routine 08/21/2023 4:10 AM CDT PH, RANDOM, U Routine 08/21/2023 4:10 AM CDT MICROSCOPIC MANUAL Routine 08/21/2023 4: 10 AM CDT URINALYSIS WITH MICROSCOPIC Routine 08/21/2023 4:10 AM CDT RENAL FUNCTION PANEL, S STAT 08/21/2023 3:55 AM CDT CYSTATIN C WITH EGFR Routine 08/21/2023 3:55 AM CDT CBC WITH DIFFERENTIAL, B Routine 08/21/2023 3:55 AM CDT POTASSIUM, S/P Timed 08/21/2023 1:51 AM CDT POTASSIUM, S/P Timed 08/20/2023 10:53 PM CDT GLUCOSE POCT, B Routine 08/20/2023 10:35 PM CDT ECG STAT 08/20/2023 10:25 PM CDT BACTERIA / SANDI CULTURE, BLOOD STAT 08/20/2023 9:08 PM CDT ADULT OXYGEN THERAPY Routine 08/20/2023 8:58 PM CDT ADULT OXYGEN THERAPY Routine 08/20/2023 8:58 PM CDT ADULT OXYGEN THERAPY Routine 08/20/2023 8:58 PM CDT LACTATE FOR SEPSIS WITH REFLEX STAT 08/20/2023 8:57 PM CDT RENAL FUNCTION PANEL, S STAT 08/20/2023 8:57 PM CDT HEPATIC FUNCTION PANEL, S STAT 08/20/2023 8:57 PM CDT PROTHROMBIN TIME (PT), P STAT 08/20/2023 8:57 PM CDT CBC WITH DIFFERENTIAL, B STAT 08/20/2023 8:57 PM CDT BACTERIA / SANDI CULTURE, BLOOD STAT 08/20/2023 8:56 PM CDT NT-PRO B-TYPE NATRIURETIC PEPTIDE (BNP), S Routine 08/20/2023 8:46 PM CDT documented in this encounter Results * ECG [...] Duration 0 sec duration INFOBIONIC MOME AF Petty 0% percent INFOBIONIC MOME VT Runs 0 [...] patient did not record any symptomatic events. Wired Sweatband Cutter: ANA Bhagat / ANA Kumari Procedure Note [...] patient did not record any symptomatic events. Wired Sweatband Cutter: ANA Bhagat / ANA Kumari Gabrielle Hernandez M.D. CV CARDIAC SERVICES PROCEDURES Performing Organization Address City/[facility]/ZIP Co de Phone Number HITESH CHARLES NA * (ABNORMAL) Hemoglobin (08/30/2023 4:11 PM CDT) [facility] Hemoglobin 9.3(L) 11.6 - 15.0 g/dL 08/30/2023 4:53 PM CDT DT Blood (Blood, Venous) 08/30/2023 4:11 PM CDT 08/30/2023 4:41 PM CDT Gabrielle Hernandez M.D. LAB BLOOD ADD-ON [facility] [address] [place] [address], [facility] [address] [place] [address] * (ABNORMAL) Tacrolimus, Trough (08/30/2023 7:42 AM CDT) [facility] Tacrolimus, Trough 1.7(L) 5.0-15.0 (Trough) ng/mL 08/30/2023 12:29 PM CDT [facility] Comment: ----ADDITIONAL INFORMATION---- Target steady-state trough concentrations vary depending on the type of transplant, concomitant immunosuppression, clinical/institutional protocols, and time post-transplant. Results should be interpreted in conjunction with this clinical information and any physical signs/symptoms of rejection/toxicity. Testing performed by Liquid Chromatography-Tandem Mass Spectrometry (LC-MS/MS). This test was developed and its performance characteristics determined by [facility] in a manner consistent with CLIA requirements. This test has not been cleared or approved by the U.S. Food and Drug Administration. Blood (Blood, Venous) 08/30/2023 7:42 AM CDT 08/30/2023 9:22 AM CDT Gabrielle Hernandez M.D. LAB BLOOD NON ADD-ON [facility] [address] [place] [address] [facility] [address] [place] [address] [place] [address] * (ABNORMAL) CBC with Differential, Blood (08/30/2023 7:42 AM CDT) [facility] Hemoglobin 8.9(L) 11.6 - 15.0 g/dL 08/30/2023 8:39 AM CDT DTL Hematocrit 28.0(L) 35.5 - 44.9 % 08/30/2023 8:39 AM CDT DTL Erythrocytes 3.12(L) 3.92 - 5.13 x10(12)/L 08/30/2023 8:39 AM CDT DTL MCV 89.7 78.2 - 97.9 fL 08/30/2023 8:39 AM CDT DTL RBC Distrib Width 16.2(H) 12.2 - 16.1 % 08/30/2023 8:39 AM CDT DTL Platelet Count 469(H) 157 - 371 x10(9)/L 08/30/2023 8:39 AM CDT DTL Leukocytes 9.8(H) 3.4 - 9.6 x10(9)/L 08/30/2023 8:39 AM CDT DTL Neutrophils 7.84(H) 1.56 - 6.45 x10(9)/L 08/30/2023 8:38 AM CDT DH[facility] Lymphocytes 0.97 0.95 - 3.07 x10(9)/L 08/30/2023 8:39 AM CDT DTL Monocytes 0.55 0.26 - 0.81 x10(9)/L 08/30/2023 8:39 AM CDT DTL Eosinophils 0.38 0.03 - 0.48 x10(9)/L 08/30/2023 8:39 AM CDT DTL Basophils <0.03 0.01 - 0.08 x10(9)/L 08/30/2023 8:39 AM CDT DTL Blood (Blood, Venous) 08/30/2023 7:42 AM CDT 08/30/2023 8:14 AM CDT Gabrielle Hernandez M.D. LAB BLOOD ADD-ON [facility] [address] [place] [address], [facility] [address] [place] [address] * Magnesium (08/30/2023 7:42 AM CDT) Magnesium, S 1.9 1.7 - 2.3 mg/dL 08/30/2023 8:47 AM CDT DTL Blood (Blood, Venous) 08/30/2023 7:42 AM CDT 08/30/2023 8:28 AM CDT Gabrielle Hernandez M.D. LAB BLOOD ADD-ON [facility] [address] [place] [address], [facility] DTL [facility] [address] [place] [address] * (ABNORMAL) Renal Function Panel (08/30/2023 7:42 AM CDT) Potassium, S 4.5 3.6 - [...] CDT Gabrielle Hernandez M.D. LAB BLOOD ADD-ON [facility] [address] [place] [address], [facility] [address] [place] [address] * (ABNORMAL) Cystatin C with Estimated GFR (08/30/2023 7:42 AM CDT) eGFR by Cystatin C 22(L) >60 mL/min/BSA 08/30/2023 8:47 AM CDT DTL Comment: [...] lower with the new assay. Cystatin C 2.35(H) 0.67 - 1.21 mg/L 08/30/2023 8:47 AM CDT DTL Blood (Blood, Venous) 08/30/2023 7:42 AM CDT 08/30/2023 8:28 AM CDT Gabrielle Hernandez M.D. LAB BLOOD ADD-ON [address] [address], [facility] [address] [address] * NE THORACENTESIS PLEURA W IMG (08/29/2023 3:27 PM CDT) Narrative Nery Johnson M.D., M.H.P.E. - 08/29/2023 3:27 PM CDT Nery Johnson M.D., M.H.P.E. ? 08/29/2023 ??3:40 PM Thoracentesis Performed by: Estephanie Lewis M.D. Authorized by: Nery Johnson M.D., M.H.P.E. ?? Care team members present 1. Estephanie Lewis M.D. 3. Nery Johnson M.D., M.H.P.E. PROCEDURE DETAILS Patient position: sitting Location: left posterior Puncture method: [id number] catheter Number of attempts: 1 Drainage characteristics: [...] fellow participated in the procedure, and the pre owned sales consultant was present for the entire procedure. Nery Johnson M.D., M.H.P.E. PROCEDUR E/MINOR SURGICAL ORDERABLES * (ABNORMAL) CBC with Differential, Blood (08/29/2023 7:58 AM CDT) Hemoglobin 9.2(L) 11.6 - 15.0 g/dL 08/29/2023 8:56 AM CDT DTL Hematocrit 28.8(L) 35.5 - 44.9 % 08/29/2023 8:56 AM CDT DTL Erythrocytes 3.18(L) 3.92 - 5.13 x10(12)/L 08/29/2023 8:56 AM CDT DTL MCV 90.6 78.2 - 97.9 fL 08/29/2023 8:56 AM CDT DTL RBC Distrib Width 16.3(H) 12.2 - 16.1 % 08/29/2023 8:56 AM CDT DTL Platelet Count 497(H) 157 - 371 x10(9)/L 08/29/2023 8:56 AM CDT DTL Leukocytes 9.3 3.4 - 9.6 x10(9)/L 08/29/2023 8:56 AM CDT DTL Neutrophils 7.43(H) 1.56 - 6.45 x10(9)/L 08/29/2023 8:56 AM CDT [facility] Lymphocytes 0.94(L) 0.95 - 3.07 x10(9)/L 08/29/2023 8:56 AM CDT DTL Monocytes 0.54 0.26 - 0.81 x10(9)/L 08/29/2023 8:56 AM CDT DTL Eosinophils 0.31 0.03 - 0.48 x10(9)/L 08/29/2023 8:56 AM CDT DTL Basophils 0.03 0.01 - 0.08 x10(9)/L 08/29/2023 8:56 AM CDT DTL Blood (Blood, Venous) 08/29/2023 7:58 AM CDT 08/29/2023 8:29 AM CDT Gabrielle Hernandez M.D. LAB BLOOD ADD-ON [facility] [address] [place] [address], [facility] DTL [facility] [address] [place], [place] [id number] [place] [address] [place] [address] * Magnesium (08/29/2023 7:58 AM CDT) [facility] Signature Magnesium, S 2.0 1.7 - 2.3 mg/dL 08/29/2023 9:10 AM CDT DTL Blood (Blood, Venous) 08/29/2023 7:58 AM CDT 08/29/2023 8:43 AM CDT Gabrielle Hernandez M.D. LAB BLOOD ADD-ON [facility] [address] [place] [address], [facility] DTL [facility] [address] [place] [address] * (ABNORMAL) Renal Function Panel (08/29/2023 7:58 AM CDT) Potassium, S 4.5 3.6 - 5.2 mmol/L 08/29/2023 9:10 AM CDT DTL Sodium, S 135 135 - 145 mmol/L 08/29/2023 9:10 AM CDT DTL Chloride, S 96(L) 98 - 107 mmol/L 08/29/2023 9:10 AM CDT DTL Bicarbonate, S 30(H) 22 - 29 mmol/L 08/29/2023 9:10 AM CDT DTL Anion Gap 9 7 - 15 08/29/2023 9:10 AM CDT DTL BUN (Blood Urea Nitrogen), S 34(H) 6 - 21 mg/dL 08/29/2023 9:10 AM CDT DTL Creatinine 1.35(H) 0.59 - 1.04 mg/dL 08/29/2023 9:10 AM CDT DTL Estimated GFR (eGFR) 43(L) >=60 mL/min/BSA 08/29/2023 9:10 AM CDT DTL Comment: Estimated GFR calculated using the 2020 CKD_EPI creatinine equation. Calcium, Total, S 9.5 8.8 - 10.2 mg/dL 08/29/2023 9:10 AM CDT DTL Glucose, S 98 70 - 140 mg/dL 08/29/2023 9:10 AM CDT DTL Albumin, S 3.2(L) 3.5 - 5.0 g/dL 08/29/2023 9:10 AM CDT DTL Phosphorus (Inorganic), S 3.8 2.5 - 4.5 mg/dL 08/29/2023 9:10 AM CDT DTL Blood (Blood, Venous) 08/29/2023 7:58 AM CDT 08/29/2023 8:43 AM CDT Gabrielle Hernandez M.D. LAB BLOOD ADD-ON Performing Organization Address City/[facility]/ZIP Co de Phone Number [facility] [address] [place] [address], [facility] [address] [place] [address] * (ABNORMAL) Cystatin C with Estimated GFR (08/29/2023 7:58 AM CDT) eGFR by Cystatin C 24(L) >60 mL/min/BSA 08/29/2023 9:10 AM CDT DTL Comment: Estimated GFR calculated [...] lower with the new assay. Cystatin C 2.23(H) 0.67 - 1.21 mg/L 08/29/2023 9:10 AM CDT DTL Blood (Blood, Venous) 08/29/2023 7:58 AM CDT 08/29/2023 8:43 AM CDT Gabrielle Hernandez M.D. LAB BLOOD ADD-ON [facility] [address] [place] [address], [facility] [address] [place] [address] * (ABNORMAL) Hemoglobin (08/28/2023 6:58 PM CDT) Hemoglobin 8.6(L) 11.6 - 15.0 g/dL 08/28/2023 7:29 PM CDT DTL Blood (Blood, Venous) 08/28/2023 6:58 PM CDT 08/28/2023 7:24 PM CDT Gabrielle Hernandez M.D. LAB BLOOD ADD-ON Performing Organization Address [facility] de Phone Number [facility] [address] [place] [address], [facility] [address] [place] [address] * Microscopic Manual (08/28/2023 5:32 PM CDT) Microscopy Normal 08/28/2023 7:31 PM CDT DTL RBC <3 <3 /hpf 08/28/2023 7:31 PM CDT DTL WBC None Seen /hpf 08/28/2023 7:31 PM CDT DTL Comment: ----REFERENCE VALUE---- <4 ??(Males) <11 (Females) Urine 08/28/2023 5:32 PM CDT 08/28/2023 6:28 PM CDT Gabrielle Hernandez M.D. LAB URINE ORDERABLES Performing Organization Address [facility] de Phone Number [facility] [address] [place] [address], [facility] [address] [place] [address] * Dipstick, Urine (08/28/2023 5:32 PM CDT) Hemoglobin, QL, U Negative Negative 08/28/2023 6:28 PM CDT DTL Leukocyte Esterase, U Negative Negative 08/28/2023 6:28 PM CDT DTL Nitrite, U Negative Negative 08/28/2023 6:28 PM CDT DTL Ketone, U Negative Negative mg/dL 08/28/2023 6:28 PM CDT DTL Glucose, U Negative Negative mg/dL 08/28/2023 6:28 PM CDT DTL Urine 08/28/2023 5:32 PM CDT 08/28/2023 6:01 PM CDT Gabrielle Hernandez M.D. LAB URINE ORDERABLES Performing Organization Address City/[facility]/ZIP Co de Phone Number [facility] [address] [place], [place] [id number] [place] [address] 200 [place] [address] * pH, Urine (08/28/2023 5:32 PM CDT) pH, U 6.6 4.5 - 8.0 08/28/2023 7:0 1 PM CDT DT Urine 08/28/2023 5:32 PM CDT 08/28/2023 6:01 PM CDT Gabrielle Hernandez M.D. LAB URINE ORDERABLES Performing Organization Address City/[facility] Co de Phone Number [facility] [address] [place], [place] [phone] [place] [address] [address] [place] [address] * Osmolality, Urine (08/28/2023 5:32 PM CDT) Pathologist [facility] Osmolality, U 344 150 - 1150 mOsm/kg 08/28/2023 7:01 PM CDT DT Urine 08/28/2023 5:32 PM CDT 08/28/2023 6:01 PM CDT Gabrielle Hernandez M.D. LAB URINE ORDERABLES Performing Organization Address City/[facility]/ZIP Co de Phone Number [facility] [address] [place], [place] [phone] [place] [address] [address] [place] [address] * (ABNORMAL) Urinalysis, with Microscopic: Urine, Midstream (08/28/2023 5:32 PM CDT) Source Urine, Urine, Midstream 08/28/2023 6:01 PM CDT DT Color, U Yellow 08/28/2023 6:01 PM CDT DTL Clarity, U Clear 08/28/2023 6:01 PM CDT DTL Protein, U 42(H) <26 mg/dL 08/28/2023 6:45 PM CDT DTL Protein/Osmol ality 1.22(H) <0.42 ratio 08/28/2023 7:01 PM CDT DTL Predicted 24 HR Protein, U 802(H) <229 mg/24 h 08/28/2023 7:01 PM CDT DTL Predicted Range 198-3246 mg/24 h 08/28/2023 7:01 PM CDT DTL Urine (Urine, Midstream) 08/28/2023 5:32 PM CDT 08/28/2023 6:01 PM CDT Gabrielle Hernandez M.D. LAB URINE ORDERABLES Performing Organization Address City/[facility]/ZIP Co de Phone Number [facility] [address] [place] [address] * Bacterial Culture, Aerobic + Susceptibility, Urine (08/28/2023 5:32 PM CDT) Urine Culture No growth after 1 day of incubation. 08/30/2023 8:13 AM CDT DTL Urine (Urine, Midstream) 08/28/2023 5:32 PM CDT 08/28/2023 6:45 PM CDT Comment:Specimen Source Site : Urine Gabrielle Hernandez M.D. LAB MICROBIOLOGY - G ENERAL ORDERABLES Performing Organization Address City/[facility]/ZIP Co de Phone Number [facility] [address] [place] [address] * NE THORACENTESIS PLEURA W IMG (08/28/2023 3:22 PM CDT) Narrative Nery Johnson M.D., M.H.P.E. - 08/28/2023 3:22 PM CDT Nery Johnson M.D., RhodaHKassie ? 08/28/2023 ??3:28 PM Thoracentesis Performed by: Zaida Fleming M.D. Authorized by: Nery Johnson M.D., RhodaHKassie ?? Care team members present 1. Zaida Fleming M.D. 3. Nery Johnson M.D., Adri.H.PSpencer PROCEDURE DETAILS Patient position: sitting Location: right posterior Intercostal space: 10th Puncture method: [id number] catheter Number of attempts: 1 Drainage characteristics: [...] fellow participated in the procedure, and the pre owned sales consultant was present for the entire procedure. [...] of the adrenal glands. Atrophy of the [place] kidneys. Failed renal allograft within the right [...] thickening of the adrenal glands.Atrophy of the [place] kidneys. Failed renal allograft within the rightlower [...] contrast August 19, 2023. Gabrielle Hernandez M.D. IMG CT PROCEDURES * (ABNORMAL) CBC with Differential, Blood (08/28/2023 11:23 AM CDT) Hemoglobin 9.2(L) 11.6 - 15.0 g/dL 08/28/2023 11:36 AM CDT STMA Hematocrit 29.2(L) 35.5 - 44.9 % 08/28/2023 11:36 AM CDT STMA Erythrocytes 3.26(L) 3.92 - 5.13 x10(12)/L 08/28/2023 11:36 AM CDT STMA MCV 89.6 78.2 - 97.9 fL 08/28/2023 11:36 AM CDT STMA RBC Distrib Width 16.3(H) 12.2 - 16.1 % 08/28/2023 11:36 AM CDT STMA Platelet Count 458(H) 157 - 371 x10(9)/L 08/28/2023 11:36 AM CDT STMA Leukocytes 11.1(H) 3.4 - 9.6 x10(9)/L 08/28/2023 11:36 AM CDT STMA Neutrophils 9.03(H) 1.56 - 6.45 x10(9)/L 08/28/2023 11:36 AM CDT DHPM Lymphocytes 1.14 0.95 - 3.07 x10(9)/L 08/28/2023 11:36 AM CDT STMA Monocytes 0.63 0.26 - 0.81 x10(9)/L 08/28/2023 11:36 AM CDT STMA Eosinophils 0.23 0.03 - 0.48 x10(9)/L 08/28/2023 11:36 AM CDT STMA Basophils 0.03 0.01 - 0.08 x10(9)/L 08/28/2023 11:36 AM CDT STMA Blood (Blood, Venous) 08/28/2023 11:23 AM CDT 08/28/2023 11:34 AM CDT Gabrielle Hernandez M.D. LAB BLOOD ADD-ON [facility] [address] [place] [address], [facility] STMA [facility] [address] [place] [address] [facility] [address] [place] [address] * Amylase, Total (08/28/2023 11:23 AM CDT) Amylase, Total, S 69 28 - 100 U/L 08/28/2023 12:17 PM CDT DTL Blood (Blood, Venous) 08/28/2023 11:23 AM CDT 08/28/2023 12:01 PM CDT Gabrielle Hernandez M.D. LAB BLOOD ADD-ON Performing Organization Address City/[facility]/ZIP Co de Phone Number [facility] [address] [place] [address], [facility] [address] [place] [address] * Lipase (08/28/2023 11:23 AM CDT) Lipase, S 27 13 - 60 U/L 08/28/2023 12:17 PM CDT DT Blood (Blood, Venous) 08/28/2023 11:23 AM CDT 08/28/2023 12:01 PM CDT Gabrielle Hernandez M.D. LAB BLOOD ADD-ON [facility] [address] [place] [address], [facility] [address] [place] [address] * Lactate (08/28/2023 11:23 AM CDT) Lactate, P 1.7 0.5 - 2.2 mmol/L 08/28/2023 11:47 AM CDT STMA Blood (Blood, Venous) 08/28/2023 11:23 AM CDT 08/28/2023 11:32 AM CDT Gabrielle Hernandez M.D. LAB BLOOD NON ADD-ON [facility] [address] [place] [address], [facility] [address] [place] [address] * DX Abdomen Supine with Upright or [...] colon, showing moderatesigmoid diverticulosis. Gabrielle Hernandez M.D. IMG DIAGNOSTIC IMAGI NG PROCEDURES * (ABNORMAL) Tacrolimus, Trough (08/28/2023 7:40 AM CDT) Tacrolimus, Trough 2.4(L) 5.0-15.0 (Trough) ng/mL 08/28/2023 12:53 PM CDT [facility] Comment: ----ADDITIONAL INFORMATION---- Target steady-state trough concentrations vary depending on the type of transplant, concomitant immunosuppression, clinical/institutional protocols, and time post-transplant. Results should be interpreted in conjunction with this clinical information and any physical signs/symptoms of rejection/toxicity. Testing performed by Liquid Chromatography-Tandem Mass Spectrometry (LC-MS/MS). This test was developed and its performance characteristics determined by [facility] in a manner consistent with CLIA requirements. This test has not been cleared or approved by the U.S. Food and Drug Administration. Blood (Blood, Venous) 08/28/2023 7:40 AM CDT 08/28/2023 9:51 AM CDT Gabrielle Hernandez M.D. LAB BLOOD NON ADD-ON [facility] [address] [place] [address] [facility] [address] [place] [address] [place] [address] * (ABNORMAL) Renal Function Panel (08/28/2023 7:40 AM CDT) [facility] Potassium, S 4.5 3.6 - 5.2 mmol/L 08/28/2023 9:19 AM CDT DTL Sodium, S 135 135 - 145 mmol/L 08/28/2023 9:19 AM CDT DTL Chloride, S 95(L) 98 - 107 mmol/L 08/28/2023 9:19 AM CDT DTL Bicarbonate, S 28 22 - 29 mmol/L 08/28/2023 9:19 AM CDT DTL Anion Gap 12 7 - 15 08/28/2023 9:19 AM CDT DTL BUN (Blood Urea Nitrogen), S 40(H) 6 - 21 mg/dL 08/28/2023 9:19 AM CDT DTL Creatinine 1.34(H) 0.59 - 1.04 mg/dL 08/28/2023 9:19 AM CDT DTL Estimated GFR (eGFR) 43(L) >=60 mL/min/BSA 08/28/2023 9:19 AM CDT DTL Comment: Estimated GFR calculated using the 2020 CKD_EPI creatinine equation. Calcium, Total, S 9.3 8.8 - 10.2 mg/dL 08/28/2023 9:19 AM CDT DTL Glucose, S 99 70 - 140 mg/dL 08/28/2023 9:19 AM CDT DTL Albumin, S 3.4(L) 3.5 - 5.0 g/dL 08/28/2023 9:19 AM CDT DTL Phosphorus (Inorganic), S 3.3 2.5 - 4.5 mg/dL 08/28/2023 9:19 AM CDT DTL Blood (Blood, Venous) 08/28/2023 7:40 AM CDT 08/28/2023 8:05 AM CDT Gabrielle Hernandez M.D. LAB BLOOD ADD-ON Performing Organization Address City/[facility]/ZIP Co de Phone Number [facility] [address] [place] [address] * Magnesium (08/28/2023 7:40 AM CDT) Pathologist [facility] Magnesium, S 2.1 1.7 - 2.3 mg/dL 08/28/2023 9:19 AM CDT DTL Blood (Blood, Venous) 08/28/2023 7:40 AM CDT 08/28/2023 8:05 AM CDT Gabrielle Hernandez M.D. LAB BLOOD ADD-ON Performing Organization Address City/[facility]/ZIP Co de Phone Number [facility] [address] [place], [place] [phone] [place] [address] * (ABNORMAL) CBC with Differential, Blood (08/28/2023 7:40 AM CDT) Pathologist [facility] Hemoglobin 10.0(L) 11.6 - 15.0 g/dL 08/28/2023 8:26 AM CDT DHPM Hematocrit 31.4(L) 35.5 - 44.9 % 08/28/2023 8:26 AM CDT DHPM Erythrocytes 3.47(L) 3.92 - 5.13 x10(12)/L 08/28/2023 8:26 AM CDT DHPM MCV 90.5 78.2 - 97.9 fL 08/28/2023 8:26 AM CDT DHPM RBC Distrib Width 16.5(H) 12.2 - 16.1 % 08/28/2023 8:26 AM CDT DHPM Platelet Count 451(H) 157 - 371 x10(9)/L 08/28/2023 8:26 AM CDT DHPM Leukocytes 8.6 3.4 - 9.6 x10(9)/L 08/28/2023 8:26 AM CDT DHPM Neutrophils 6.67(H) 1.56 - 6.45 x10(9)/L 08/28/2023 8:26 AM CDT DHPM Lymphocytes 1.18 0.95 - 3.07 x10(9)/L 08/28/2023 8:26 AM CDT DHPM Monocytes 0.56 0.26 - 0.81 x10(9)/L 08/28/2023 8:26 AM CDT DHPM Eosinophils 0.21 0.03 - 0.48 x10(9)/L 08/28/2023 8:26 AM CDT DHPM Basophils <0.03 0.01 - 0.08 x10(9)/L 08/28/2023 8:26 AM CDT DHPM Blood (Blood, Venous) 08/28/2023 7:40 AM CDT 08/28/2023 8:04 AM CDT Akshat Rhoades M.D. LAB BLOOD ADD-ON [facility] [address] [place] [address], [facility] [address] [place] [address] * (ABNORMAL) Hepatic Function Panel (08/28/2023 7:40 AM CDT) Bilirubin, Total, S 0.4 0.0 - 1.2 mg/dL 08/28/2023 9:19 AM CDT DTL Bilirubin, Direct, S <0.2 0.0 - 0.3 mg/dL 08/28/2023 9:19 AM CDT DTL Aspartate Aminotransferase (AST), S 22 8 - 43 U/L 08/28/2023 9:19 AM CDT DTL Alanine Aminotransferase (ALT), S 23 7 - 45 U/L 08/28/2023 9:19 AM CDT DTL Alkaline Phosphatase, S 111(H) 35 - 104 U/L 08/28/2023 9:19 AM CDT DTL Albumin, S 3.4(L) 3.5 - 5.0 g/dL 08/28/2023 9:19 AM CDT DTL Protein, Total, S 6.7 6.3 - 7.9 g/dL 08/28/2023 9:19 AM CDT DTL Blood (Blood, Venous) 08/28/2023 7:40 AM CDT 08/28/2023 8:05 AM CDT Gabrielle Hernandez M.D. LAB BLOOD ADD-ON [facility] [address] [place] [address], [facility] [address] [place] [address] * (TTE) 2D LIMITED WITH LIMITED DOPPLER (08/27/2023 9:01 AM CDT) [facility] Ejection Fraction 60 MC CV EIMS LV [...] Gabrielle Hernandez M.D. CV ECHO PROCEDURES * (ABNORMAL) Tacrolimus, Trough (08/27/2023 7:45 AM CDT) Tacrolimus, Trough 4.1(L) 5.0-15.0 (Trough) ng/mL 08/27/2023 11:58 AM CDT [facility] Comment: ----ADDITIONAL INFORMATION---- Target steady-state trough concentrations vary depending on the type of transplant, concomitant immunosuppression, clinical/institutional protocols, and time post-transplant. Results should be interpreted in conjunction with this clinical information and any physical signs/symptoms of rejection/toxicity. Testing performed by Liquid Chromatography-Tandem Mass Spectrometry (LC-MS/MS). This test was developed and its performance characteristics determined by [facility] in a manner consistent with CLIA requirements. This test has not been cleared or approved by the U.S. Food and Drug Administration. Blood (Blood, Venous) 08/27/2023 7:45 AM CDT 08/27/2023 9:27 AM CDT Gabrielle Hernandez M.D. LAB BLOOD NON ADD-ON [facility] [address] [place] [address] [facility] [address] [place] [address] [place] [address] * (ABNORMAL) Renal Function Panel (08/27/2023 7:45 AM CDT) Potassium, S 4.6 3.6 - 5.2 mmol/L 08/27/2023 8:45 AM CDT DTL Sodium, S 138 135 - 145 mmol/L 08/27/2023 8:45 AM CDT DTL Chloride, S 99 98 - 107 mmol/L 08/27/2023 8:45 AM CDT DTL Bicarbonate, S 29 22 - 29 mmol/L 08/27/2023 8:45 AM CDT DTL Anion Gap 10 7 - 15 08/27/2023 8:45 AM CDT DTL BUN (Blood Urea Nitrogen), S 47(H) 6 - 21 mg/dL 08/27/2023 8:45 AM CDT DTL Creatinine 1.39(H) 0.59 - 1.04 mg/dL 08/27/2023 8:45 AM CDT DTL Estimated GFR (eGFR) 41(L) >=60 mL/min/BSA 08/27/2023 8:45 AM CDT DTL Comment: Estimated GFR calculated using the 2020 CKD_EPI creatinine equation. Calcium, Total, S 9.1 8.8 - 10.2 mg/dL 08/27/2023 8:45 AM CDT DTL Glucose, S 93 70 - 140 mg/dL 08/27/2023 8:45 AM CDT DTL Albumin, S 3.3(L) 3.5 - 5.0 g/dL 08/27/2023 8:45 AM CDT DTL Phosphorus (Inorganic), S 3.7 2.5 - 4.5 mg/dL 08/27/2023 8:45 AM CDT DTL Blood (Blood, Venous) 08/27/2023 7:45 AM CDT 08/27/2023 8:24 AM CDT Gabrielle Hernandez M.D. LAB BLOOD ADD-ON Performing Organization Address City/[facility]/ZIP Co de Phone Number [facility] [address] [place] [address] * Magnesium (08/27/2023 7:45 AM CDT) Pathologist [facility] Magnesium, S 2.3 1.7 - 2.3 mg/dL 08/27/2023 8:45 AM CDT DTL Blood (Blood, Venous) 08/27/2023 7:45 AM CDT 08/27/2023 8:24 AM CDT Gabrielle Hernandez M.D. LAB BLOOD ADD-ON Performing Organization Address [facility] Co de Phone Number [facility] [address] [place] [address] * (ABNORMAL) CBC with Differential, Blood (08/27/2023 7:45 AM CDT) [facility] Hemoglobin 9.1(L) 11.6 - 15.0 g/dL 08/27/2023 8:48 AM CDT DTL Hematocrit 28.7(L) 35.5 - 44.9 % 08/27/2023 8:48 AM CDT DTL Erythrocytes 3.18(L) 3.92 - 5.13 x10(12)/L 08/27/2023 8:48 AM CDT DTL MCV 90.3 78.2 - 97.9 fL 08/27/2023 8:48 AM CDT DTL RBC Distrib Width 16.7(H) 12.2 - 16.1 % 08/27/2023 8:48 AM CDT DTL Platelet Count 383(H) 157 - 371 x10(9)/L 08/27/2023 8:48 AM CDT DTL Leukocytes 9.2 3.4 - 9.6 x10(9)/L 08/27/2023 8:48 AM CDT DTL Neutrophils 7.34(H) 1.56 - 6.45 x10(9)/L 08/27/2023 8:48 AM CDT DHPM Lymphocytes 1.09 0.95 - 3.07 x10(9)/L 08/27/2023 8:48 AM CDT DTL Monocytes 0.62 0.26 - 0.81 x10(9)/L 08/27/2023 8:48 AM CDT DTL Eosinophils 0.17 0.03 - 0.48 x10(9)/L 08/27/2023 8:48 AM CDT DTL Basophils <0.03 0.01 - 0.08 x10(9)/L 08/27/2023 8:48 AM CDT DTL Blood (Blood, Venous) 08/27/2023 7:45 AM CDT 08/27/2023 8:12 AM CDT Akshat Rhoades M.D. LAB BLOOD ADD-ON [facility] [address] [place] [address], [facility] DTL [facility] [address] [place] [address] * (ABNORMAL) Cystatin C with Estimated GFR (08/27/2023 7:45 AM CDT) [facility] eGFR by Cystatin C 21(L) >60 mL/min/BSA 08/27/2023 8:45 AM CDT DTL Comment: Estimated GFR calculated [...] lower with the new assay. Cystatin C 2.51(H) 0.67 - 1.21 mg/L 08/27/2023 8:45 AM CDT DTL Blood (Blood, Venous) 08/27/2023 7:45 AM CDT 08/27/2023 8:24 AM CDT Gabrielle Hernandez M.D. LAB BLOOD ADD-ON Performing Organization Address City/[facility]/ZIP Co de Phone Number [facility] [address] [place], [place] [phone] [place] [address] [facility] [address] [place] [address] * (ABNORMAL) Cystatin C with Estimated GFR (08/26/2023 7:33 AM CDT) eGFR by Cystatin C 19(L) >60 mL/min/BSA 08/26/2023 11:22 AM CDT DTL Comment: Estimated GFR calculated [...] lower with the new assay. Cystatin C 2.63(H) 0.67 - 1.21 mg/L 08/26/2023 11:22 AM CDT DTL Blood (Blood, Venous) 08/26/2023 7:33 AM CDT 08/26/2023 10:56 AM CDT Tami Simmons M.D. LAB BLOOD ADD-ON [facility] [address] [place] [address], [facility] DTL [facility] [address] [place] [address] * (ABNORMAL) Magnesium (08/26/2023 7:33 AM CDT) Magnesium, S 2.5(H) 1.7 - 2.3 mg/dL 08/26/2023 9:38 AM CDT DTL Blood (Blood, Venous) 08/26/2023 7:33 AM CDT 08/26/2023 8:15 AM CDT Torito Ma M.D. LAB BLOOD ADD-ON [facility] [address] [place] [address], [place] DTL [facility] [address] [place] [address] * (ABNORMAL) Renal Function Panel (08/26/2023 7:33 AM CDT) [facility] Potassium, S 4.6 3.6 - 5.2 mmol/L 08/26/2023 9:38 AM CDT DTL Sodium, S 135 135 - 145 mmol/L 08/26/2023 9:38 AM CDT DTL Chloride, S 99 98 - 107 mmol/L 08/26/2023 9:38 AM CDT DTL Bicarbonate, S 26 22 - 29 mmol/L 08/26/2023 9:38 AM CDT DTL Anion Gap 10 7 - 15 08/26/2023 9:38 AM CDT DTL BUN (Blood Urea Nitrogen), S 47(H) 6 - 21 mg/dL 08/26/2023 9:38 AM CDT DTL Creatinine 1.40(H) 0.59 - 1.04 mg/dL 08/26/2023 9:38 AM CDT DTL Estimated GFR (eGFR) 41(L) >=60 mL/min/BSA 08/26/2023 9:38 AM CDT DTL Comment: Estimated GFR calculated using the 2020 CKD_EPI creatinine equation. Calcium, Total, S 8.8 8.8 - 10.2 mg/dL 08/26/2023 9:38 AM CDT DTL Glucose, S 121 70 - 140 mg/dL 08/26/2023 9:38 AM CDT DTL Albumin, S 2.9(L) 3.5 - 5.0 g/dL 08/26/2023 9:38 AM CDT DTL Phosphorus (Inorganic), S 2.2(L) 2.5 - 4.5 mg/dL 08/26/2023 9:38 AM CDT DTL Blood (Blood, Venous) 08/26/2023 7:33 AM CDT 08/26/2023 8:15 AM CDT Torito Ma M.D. LAB BLOOD ADD-ON [facility] [address] [place] [address], [facility] DTL [facility] [address] [place] [address] * (ABNORMAL) Tacrolimus, Trough (08/26/2023 7:33 AM CDT) Tacrolimus, Trough 3.4(L) 5.0-15.0 (Trough) ng/mL 08/26/2023 12:38 PM CDT [facility] Comment: ----ADDITIONAL INFORMATION---- Target steady-state trough concentrations vary depending on the type of transplant, concomitant immunosuppression, clinical/institutional protocols, and time post-transplant. Results should be interpreted in conjunction with this clinical information and any physical signs/symptoms of rejection/toxicity. Testing performed by Liquid Chromatography-Tandem Mass Spectrometry (LC-MS/MS). This test was developed and its performance characteristics determined by [facility] in a manner consistent with CLIA requirements. This test has not been cleared or approved by the U.S. Food and Drug Administration. Blood (Blood, Venous) 08/26/2023 7:33 AM CDT 08/26/2023 9:26 AM CDT Torito Ma M.D. LAB BLOOD NON ADD-ON [facility] [address] [place] [address] [facility] [address] [place] [address] [place] [address] * (ABNORMAL) CBC with Differential, Blood (08/26/2023 7:33 AM CDT) Hemoglobin 8.4(L) 11.6 - 15.0 g/dL 08/26/2023 8:59 AM CDT DTL Hematocrit 26.4(L) 35.5 - 44.9 % 08/26/2023 8:59 AM CDT DTL Erythrocytes 2.91(L) 3.92 - 5.13 x10(12)/L 08/26/2023 8:59 AM CDT DTL MCV 90.7 78.2 - 97.9 fL 08/26/2023 8:59 AM CDT DTL RBC Distrib Width 16.6(H) 12.2 - 16.1 % 08/26/2023 8:59 AM CDT DTL Platelet Count 394(H) 157 - 371 x10(9)/L 08/26/2023 8:59 AM CDT DTL Leukocytes 9.9(H) 3.4 - 9.6 x10(9)/L 08/26/2023 8:59 AM CDT DTL Neutrophils 7.99(H) 1.56 - 6.45 x10(9)/L 08/26/2023 8:59 AM CDT DHPM Lymphocytes 1.15 0.95 - 3.07 x10(9)/L 08/26/2023 8:59 AM CDT DTL Monocytes 0.67 0.26 - 0.81 x10(9)/L 08/26/2023 8:59 AM CDT DTL Eosinophils 0.10 0.03 - 0.48 x10(9)/L 08/26/2023 8:59 AM CDT DTL Basophils <0.03 0.01 - 0.08 x10(9)/L 08/26/2023 8:59 AM CDT DTL Blood (Blood, Venous) 08/26/2023 7:33 AM CDT 08/26/2023 8:26 AM CDT Akshat Rhoades M.D. LAB BLOOD ADD-ON [facility] [address] [place] [address], [facility] DTL [facility] [address] [place] [address] [facility] [address] [place] [address] * ECG 12 Lead (08/26/2023 7:18 AM CDT) Ventricular Rate ECG/Min 47 BPM MUSE NE Interval 132 ms MUSE QRSD Interval 98 ms MUSE QT Interval 488 ms MUSE QTC Interval 431 ms MUSE P [place] 61 degrees MUSE R [place] 14 degrees MUSE T Wave [place] 126 degrees MUSE 08/26/2023 7:18 AM CDT 08/26/2023 7:23 AM CDT Impressions MUSE - 08/26/2023 7:23 AM CDT Marked sinus bradycardia Moderate voltage criteria for LVH, may be normal variant T wave abnormality, consider anterolateral ischemia When compared with ECG of 23-Aug-2023 15:16, Significant changes have occurred Reviewed by ANA Castillo Narrative Procedure Note Rufino Jackson M.D., Ph.D. - 08/26/2023 IMPRESSION: Marked sinus bradycardia Moderate voltage criteria for LVH, may be normal variant T wave abnormality, consider anterolateral ischemia When compared with ECG of 23-Aug-2023 15:16, Significant changes have occurred Reviewed by ANA Castillo David Joy M.D. ECG ORDERABLES Performing Organization Address City/[facility]/ZIP Co de Phone Number MUSE NA * (ABNORMAL) Magnesium (08/25/2023 8:23 PM CDT) Magnesium, S 2.4(H) 1.7 - 2.3 mg/dL 08/25/2023 9:27 PM CDT DTL Blood (Blood, Venous) 08/25/2023 8:23 PM CDT 08/25/2023 9:11 PM CDT Torito Ma M.D. LAB BLOOD ADD-ON [facility] [address] [place] [address], [facility] [address] [place] [address] * (ABNORMAL) Renal Function Panel (08/25/2023 8:23 PM CDT) Potassium, S 4.7 3.6 - 5.2 mmol/L 08/25/2023 9:27 PM CDT DTL Sodium, S 135 135 - 145 mmol/L 08/25/2023 9:27 PM CDT DTL Chloride, S 98 98 - 107 mmol/L 08/25/2023 9:27 PM CDT DTL Bicarbonate, S 27 22 - 29 mmol/L 08/25/2023 9:27 PM CDT DTL Anion Gap 10 7 - 15 08/25/2023 9:27 PM CDT DTL BUN (Blood Urea Nitrogen), S 46(H) 6 - 21 mg/dL 08/25/2023 9:27 PM CDT DTL Creatinine 1.55(H) 0.59 - 1.04 mg/dL 08/25/2023 9:27 PM CDT DTL Estimated GFR (eGFR) 36(L) >=60 mL/min/BSA 08/25/2023 9:27 PM CDT DTL Comment: Estimated GFR calculated using the 2020 CKD_EPI creatinine equation. Calcium, Total, S 8.4(L) 8.8 - 10.2 mg/dL 08/25/2023 9:27 PM CDT DTL Glucose, S 147(H) 70 - 140 mg/dL 08/25/2023 9:27 PM CDT DTL Albumin, S 3.0(L) 3.5 - 5.0 g/dL 08/25/2023 9:27 PM CDT DTL Phosphorus (Inorganic), S 2.3(L) 2.5 - 4.5 mg/dL 08/25/2023 9:27 PM CDT DTL Blood (Blood, Venous) 08/25/2023 8:23 PM CDT 08/25/2023 9:11 PM CDT Torito Ma M.D. LAB BLOOD ADD-ON [facility] [address] [place] [address], [facility] [address] [place] [address] * (ABNORMAL) Magnesium (08/25/2023 7:23 AM CDT) Magnesium, S 2.6(H) 1.7 - 2.3 mg/dL 08/25/2023 8:38 AM CDT DTL Blood (Blood, Venous) 08/25/2023 7:23 AM CDT 08/25/2023 8:18 AM CDT Torito Ma M.D. LAB BLOOD ADD-ON [facility] [address] [place] [address], [facility] DTL [facility] [address] [place] [address] * (ABNORMAL) Renal Function Panel (08/25/2023 7:23 AM CDT) Potassium, S 4.3 3.6 - 5.2 mmol/L 08/25/2023 8:38 AM CDT DTL Sodium, S 135 135 - 145 mmol/L 08/25/2023 8:38 AM CDT DTL Chloride, S 101 98 - 107 mmol/L 08/25/2023 8:38 AM CDT DTL Bicarbonate, S 25 22 - 29 mmol/L 08/25/2023 8:38 AM CDT DTL Anion Gap 9 7 - 15 08/25/2023 8:38 AM CDT DTL BUN (Blood Urea Nitrogen), S 46(H) 6 - 21 mg/dL 08/25/2023 8:38 AM CDT DTL Creatinine 1.59(H) 0.59 - 1.04 mg/dL 08/25/2023 8:38 AM CDT DTL Estimated GFR (eGFR) 35(L) >=60 mL/min/BSA 08/25/2023 8:38 AM CDT DTL Comment: Estimated GFR calculated using the 2020 CKD_EPI creatinine equation. Calcium, Total, S 8.5(L) 8.8 - 10.2 mg/dL 08/25/2023 8:38 AM CDT DTL Glucose, S 131 70 - 140 mg/dL 08/25/2023 8:38 AM CDT DTL Albumin, S 2.9(L) 3.5 - 5.0 g/dL 08/25/2023 8:38 AM CDT DTL Phosphorus (Inorganic), S 2.7 2.5 - 4.5 mg/dL 08/25/2023 8:38 AM CDT DTL Blood (Blood, Venous) 08/25/2023 7:23 AM CDT 08/25/2023 8:18 AM CDT Torito Ma M.D. LAB BLOOD ADD-ON Performing Organization Address [facility]/ZIP Co de Phone Number [facility] [address] [place] [address], [facility] DTL [facility] [address] [place] [address] * (ABNORMAL) Tacrolimus, Trough (08/25/2023 7:23 AM CDT) Pathologist [facility] Tacrolimus, Trough 4.9(L) 5.0-15.0 (Trough) ng/mL 08/25/2023 4:50 PM CDT [facility] Comment: ----ADDITIONAL INFORMATION---- Target steady-state trough concentrations vary depending on the type of transplant, concomitant immunosuppression, clinical/institutional protocols, and time post-transplant. Results should be interpreted in conjunction with this clinical information and any physical signs/symptoms of rejection/toxicity. Testing performed by Liquid Chromatography-Tandem Mass Spectrometry (LC-MS/MS). This test was developed and its performance characteristics determined by [facility] in a manner consistent with CLIA requirements. This test has not been cleared or approved by the U.S. Food and Drug Administration. Blood (Blood, Venous) 08/25/2023 7:23 AM CDT 08/25/2023 11:34 AM CDT Torito Ma M.D. LAB BLOOD NON ADD-ON Performing Organization Address City/[facility]/ZIP Co de Phone Number [facility] [place] [address] [place] [address] [facility] [address] [place] [address] [place] [address] * (ABNORMAL) CBC with Differential, Blood (08/25/2023 7:23 AM CDT) Hemoglobin 8.2(L) 11.6 - 15.0 g/dL 08/25/2023 8:00 AM CDT DTL Hematocrit 25.4(L) 35.5 - 44.9 % 08/25/2023 8:00 AM CDT DTL Erythrocytes 2.84(L) 3.92 - 5.13 x10(12)/L 08/25/2023 8:00 AM CDT DTL MCV 89.4 78.2 - 97.9 fL 08/25/2023 8:00 AM CDT DTL RBC Distrib Width 16.7(H) 12.2 - 16.1 % 08/25/2023 8:00 AM CDT DTL Platelet Count 354 157 - 371 x10(9)/L 08/25/2023 8:00 AM CDT DTL Leukocytes 9.1 3.4 - 9.6 x10(9)/L 08/25/2023 8:00 AM CDT DTL Neutrophils 7.04(H) 1.56 - 6.45 x10(9)/L 08/25/2023 8:00 AM CDT DHPM Lymphocytes 1.03 0.95 - 3.07 x10(9)/L 08/25/2023 8:00 AM CDT DTL Monocytes 0.93(H) 0.26 - 0.81 x10(9)/L 08/25/2023 8:00 AM CDT DTL Eosinophils 0.07 0.03 - 0.48 x10(9)/L 08/25/2023 8:00 AM CDT DTL Basophils <0.03 0.01 - 0.08 x10(9)/L 08/25/2023 8:00 AM CDT DTL Blood (Blood, Venous) 08/25/2023 7:23 AM CDT 08/25/2023 7:48 AM CDT Akshat Rhoades M.D. LAB BLOOD ADD-ON [facility] [address] [place] [address], [facility] DTL [facility] [address] [place] [address] [facility] [address] [place] [address] * Staph aureus / MRSA, Nasal, PCR (08/25/2023 6:39 AM CDT) Pathologist [facility] Staphylococcus aureus, PCR Negative Negative 08/25/2023 10:18 AM CDT DTL MRSA, PCR Negative Negative 08/25/2023 10:18 AM CDT DTL Swab (Nares) 08/25/2023 6:39 AM CDT 08/25/2023 7:19 AM CDT Kira Tam M.D. LAB MICROBIOLOGY - G ENERAL ORDERABLES Performing Organization Address City/[facility]/ZIP Co de Phone Number [facility] [address] [place] [address] * (ABNORMAL) Magnesium (08/24/2023 8:34 PM CDT) [facility] Magnesium, S 2.7(H) 1.7 - 2.3 mg/dL 08/24/2023 10:04 PM CDT DTL Blood (Blood, Venous) 08/24/2023 8:34 PM CDT 08/24/2023 9:06 PM CDT Torito Ma M.D. LAB BLOOD ADD-ON [facility] [address] [place] [address] * (ABNORMAL) Renal Function Panel (08/24/2023 8:34 PM CDT) Pathologist [facility] Potassium, S 4.6 3.6 - 5.2 mmol/L 08/24/2023 10:04 PM CDT DTL Sodium, S 134(L) 135 - 145 mmol/L 08/24/2023 10:04 PM CDT DTL Chloride, S 101 98 - 107 mmol/L 08/24/2023 10:04 PM CDT DTL Bicarbonate, S 22 22 - 29 mmol/L 08/24/2023 10:04 PM CDT DTL Anion Gap 11 7 - 15 08/24/2023 10:04 PM CDT DTL BUN (Blood Urea Nitrogen), S 45(H) 6 - 21 mg/dL 08/24/2023 10:04 PM CDT DTL Creatinine 1.81(H) 0.59 - 1.04 mg/dL 08/24/2023 10:04 PM CDT DTL Estimated GFR (eGFR) 30(L) >=60 mL/min/BSA 08/24/2023 10:04 PM CDT DTL Comment: Estimated GFR calculated using the 2020 CKD_EPI creatinine equation. Calcium, Total, S 8.1(L) 8.8 - 10.2 mg/dL 08/24/2023 10:04 PM CDT DTL Glucose, S 166(H) 70 - 140 mg/dL 08/24/2023 10:04 PM CDT DTL Albumin, S 2.9(L) 3.5 - 5.0 g/dL 08/24/2023 10:04 PM CDT DTL Phosphorus (Inorganic), S 3.0 2.5 - 4.5 mg/dL 08/24/2023 10:04 PM CDT DTL Blood (Blood, Venous) 08/24/2023 8:34 PM CDT 08/24/2023 9:06 PM CDT Torito Ma M.D. LAB BLOOD ADD-ON [facility] [address] [place] [address], [facility] [address] [place] [address] * LD (Lactate Dehydrogenase) (08/24/2023 2:58 PM CDT) [facility] LD 170 122 - 222 U/L 08/24/2023 4:07 PM CDT DTL Blood (Blood, Venous) 08/24/2023 2:58 PM CDT 08/24/2023 3:46 PM CDT Torito Ma M.D. LAB BLOOD NON ADD-ON [facility] [address] [place] [address], [place] DTL [facility] [address] [place] [address] * DX Chest Portable 1 View (08/24/2023 2:23 PM CDT) Anatomical Region Laterality Modality Chest, Thoracic RST LOS, Tho racic ARZ LOS, Thoracic FLA LOS N/A Digital Radiography Impressions 08/24/2023 2:26 PM CDT Small right pleural effusion considerably decreased in size since earlier today at 08:00. New tiny right apical pneumothorax. Small to moderate left pleural effusion unchanged. Stable retrocardiac left lower lobe and bibasilar atelectasis. Enlargement of the cardiac silhouette likely a combination of cardiomegaly and the pericardial effusion seen on the previous chest CT from 08/19/2023. Diffuse vascular calcifications. Boone device. Narrative 08/24/2023 2:26 PM CDT EXAM: ??DX CHEST PORTABLE 1 VIEW Procedure Note Esteban Vanessa M.D. - 08/24/2023 EXAM: DX CHEST PORTABLE 1 VIEW IMPRESSION: Small right pleural effusion considerably decreased in size since earliertoday at 08:00. New tiny right apical pneumothorax. Small to moderate leftpleural effusion unchanged. Stable retrocardiac left lower lobe andbibasilar atelectasis. Enlargement of the cardiac silhouette likely a combination of cardiomegalyand the pericardial effusion seen on the previous chest CT from 08/19/2023.Diffuse vascular calcifications. Boone device. Jim Ge M.D. IMEmilia DIAGNOSTIC IMAGI NG PROCEDURES * NE THORACENTESIS PLEURA W IMG (08/24/2023 1:49 PM CDT) Narrative Citlaly Jefferson M.D. - 08/24/2023 1:49 PM CDT Jim Ge M.D. ? 08/24/2023 ??1:51 PM Thoracentesis Performed by: Jim Ge M.D. Authorized by: Citlaly Jefferson M.D. ?? Care team members present 1. Citlaly Jefferson M.D. PROCEDURE DETAILS Patient position: sitting Intercostal space: 7th Puncture method: [id number] catheter Number of attempts: 1 Drainage characteristics: [...] pleura over the rib. ??A 5.0 Fr Likeeds catheter was advanced over the rib along [...] fellow participated in the procedure, and the pre owned sales consultant was present for the entire procedure. Citlaly Jefferson M.D. PROCEDURE/MINOR GAXIOLA RGICAL ORDERABLES * Triglycerides, Body Fluid (08/24/2023 12:50 PM CDT) Triglycerides, BF 28 See Comment mg/dL 08/24/2023 7:24 PM CDT DTL Comment: ----ADDITIONAL INFORMATION---- Pleural fluid triglyceride concentrations > 110 mg/dL are consistent with chylous effusions. ??Triglyceride concentrations <50 mg/dL are usually not due to chylous effusions. Peritoneal fluid triglyceride concentrations > 187 mg/dL are most consistent with chylous effusion. All other fluids refer to http://www.Dragonfly Systemslabs.com for further interpretive information. This test has been modified from the carpet sewer's instructions. ??Its performance characteristics were determined by [facility] in a manner consistent with CLIA requirements. ??This test has not been cleared or approved by the U.S. Food and Drug Administration. Fluid Type Fluid, Pleural Fluid, Right 08/24/2023 2:07 PM CDT DTL Fluid (Pleural Fluid, Right) 08/24/2023 12:50 PM CDT 08/24/2023 2:29 PM CDT Gino Green M.D. LAB BODY FLUIDS AND STOOLS ORDERABLES [facility] [address] [place] [address], [facility] [address] [place] [address] * Protein, Total, Body Fluid (08/24/2023 12:50 [...] clinical findings. All other fluids refer to www.HealthCare.[email or web address] for further interpretive information. This test has been modified from the carpet sewer's instructions. Its performance characteristics were determined by [facility] in a manner consistent with CLIA requirements. This test has not been cleared or approved by the U.S. Food and Drug Administration. Fluid Type, Protein, Total Fluid, Pleural Fluid, Right 08/24/2023 2:07 PM CDT DT Fluid (Pleural Fluid, Right) 08/24/2023 12:50 PM CDT 08/24/2023 2:29 PM CDT Gino Green M.D. LAB BODY FLUIDS AND STOOLS ORDERABLES Performing Organization Address City/[facility]/ZIP Co de Phone Number [address] [address], [facility] [address] [address] * pH, Pleural Fluid (08/24/2023 12:50 PM CDT) pH, Pleural Fluid 7.40 Not Applicable pH 08/24/2023 1:38 PM CDT ST[facility] Comment: Clinical guidelines suggest that in parapneumonic pleural effusions, a pH <7.2 indicate the need for tube drainage. Fluid (Pleural Fluid, Right) 08/24/2023 12:50 PM CDT 08/24/2023 1:35 PM CDT Gino Green M.D. LAB BODY FLUIDS AND STOOLS ORDERABLES [facility] [address] [place] [address], [facility] STMA [facility] [address] [place] [address] * Lactate Dehydrogenase (LD), Body Fluid (08/24/2023 [...] clinical findings. All other fluids refer to www.HealthCare.coms.com for further interpretive information. This test has been modified from the carpet sewer's instructions. Its performance characteristics were determined by [facility] in a manner consistent with CLIA requirements. This test has not been cleared or approved by the U.S. Food and Drug Administration. Fluid Type, Lactate Dehydrogenase Fluid, Pleural Fluid, Right 08/24/2023 2:07 PM CDT DTL Fluid (Pleural Fluid, Right) 08/24/2023 12:50 PM CDT 08/24/2023 2:29 PM CDT Gino Green M.D. LAB BODY FLUIDS AND STOOLS ORDERABLES [facility] [address] [place] [address], [facility] [address] [place] [address] * Gram Stain (08/24/2023 12:50 PM CDT) Pathologist [facility] Gram Stain No organisms seen. White blood cells, Few 08/24/2023 6:09 PM CDT DTL Fluid (Pleural Fluid, Right) 08/24/2023 12:50 PM CDT 08/24/2023 3:48 PM CDT Comment:Specimen Source Site : Fluid Narrative [facility] - 08/24/2023 6:09 PM CDT Bacterial Culture: Placed in Bactec aerobic and Bactec anaerobic bottles Gino Green M.D. LAB MICROBIOLOGY - G ENERAL ORDERABLES Performing Organization Address City/[facility] Co de Phone Number [facility] [address] [place] [address], [facility] [address] [place] [address] * Fungal Smear (08/24/2023 12:50 PM CDT) Fungal Smear Negative. 08/24/2023 7:25 PM CDT DTL Fluid (Pleural Fluid, Right) 08/24/2023 12:50 PM CDT 08/24/2023 3:48 PM CDT Comment:Specimen Source Site : Fluid Narrative [facility] - 08/24/2023 7:25 PM CDT Bacterial Culture: Placed in Bactec aerobic and Bactec anaerobic bottles Gino Green M.D. LAB MICROBIOLOGY - G ENERAL ORDERABLES Performing Organization Address City/[facility] Co de Phone Number [facility] [address] [place] [address], [facility] [address] [place] [address] * Fungal Culture, Routine (08/24/2023 12:50 PM CDT) Fungal Culture, Routine No growth after 24 days of incubation. 09/18/2023 1:01 AM CDT DTL Fluid (Pleural Fluid, Right) 08/24/2023 12:50 PM CDT 08/24/2023 3:48 PM CDT Comment:Specimen Source Site : Fluid Narrative [facility] - 09/18/2023 1:01 AM CDT Bacterial Culture: Placed in Bactec aerobic and Bactec anaerobic bottles Gino Green M.D. LAB MICROBIOLOGY - G ENERAL ORDERABLES [facility] [address] [place] [address], [place] DTL [facility] [facility] [address] [place] [address] * Cell Count and Differential, Body Fluid [...] This test has been modified from the carpet sewer's instructions. Its performance characteristics were determined by [facility] in a manner consistent with CLIA requirements. [...] FLUIDS AND STOOLS ORDERABLES Performing Organization Address City/[facility]/ZIP Co de Phone Number [facility] [address] [place] [address], [facility] [address] [place] [address] * Broad Range Bacteria PCR + Sequencing (08/24/2023 12:50 PM CDT) Pathologist [facility] Broad Range Bacteria PCR+Sequencin g No bacterial DNA detected. This test was developed and its performance characteristics determined by [facility] in a manner consistent with CLIA requirements. This test has not been cleared or approved by the U.S. Food and Drug Administration. 08/26/2023 1:42 PM CDT DTL Fluid (Pleural Fluid, Right) 08/24/2023 12:50 PM CDT 08/24/2023 3:48 PM CDT Comment:Specimen Source Site : Fluid Narrative [facility] - 08/26/2023 1:42 PM CDT Bacterial Culture: Placed in Bactec aerobic and Bactec anaerobic bottles Gino Green M.D. LAB MICROBIOLOGY - G ENERAL ORDERABLES Performing Organization Address City/[facility] Co de Phone Number [facility] [address] [place] [address], [facility] [address] [place] [address] * Bilirubin, Body Fluid (08/24/2023 12:50 PM [...] effusion. ?? All other fluids refer to http://www.Dragonfly Systemslabs.com for further interpretive information. This test has been modified from the carpet sewer's instructions. ??Its performance characteristics were determined by [facility] in a manner consistent with CLIA requirements. ??This test has not been cleared or approved by the U.S. Food and Drug Administration. Fluid Type Fluid, Pleural Fluid, Right 08/24/2023 2:07 PM CDT DTL Fluid (Pleural Fluid, Right) 08/24/2023 12:50 PM CDT 08/24/2023 2:29 PM CDT Gino Green M.D. LAB BODY FLUIDS AND STOOLS ORDERABLES Performing Organization Address City/[facility]/ZIP Co de Phone Number [facility] [address] [place], [place] [address] [place] [address] * Bacterial Culture, Aerobic + Susceptibility (08/24/2023 12:50 PM CDT) Bacterial Culture, Aerobic + Susc No growth after 5 days of incubation. 08/29/2023 8:10 AM CDT DTL Fluid (Pleural Fluid, Right) 08/24/2023 12:50 PM CDT 08/24/2023 3:48 PM CDT Comment:Specimen Source Site : Fluid Narrative [facility] - 08/29/2023 8:10 AM CDT Bacterial Culture: Placed in Bactec aerobic and Bactec anaerobic bottles Gino Green M.D. LAB MICROBIOLOGY - G ENERAL ORDERABLES [facility] [address] [place], [place] [address] [place] [address] * DX Chest Portable 1 View (08/24/2023 8:19 AM CDT) Anatomical Region Laterality Modality Chest, Thoracic RST LOS, Tho racic ARZ LOS, Thoracic FLA LOS N/A Digital Radiography Impressions 08/24/2023 8:26 AM CDT Compared to 08/23/2023. No substantial change. Moderate right pleural effusion with opacification of the right mid and lower lung. Pulmonary vascular congestion. Small left pleural effusion. Enlarged cardiac silhouette. Retrocardiac atelectasis/consolidation. Pericardial effusion better seen on prior CT. Pulmonary edema is in the differential. Boone device. Narrative 08/24/2023 8:26 AM CDT EXAM: ??DX CHEST PORTABLE 1 VIEW Procedure Note Bridger Villar M.D., M.S. - 08/24/2023 EXAM: DX CHEST PORTABLE 1 VIEW IMPRESSION: Compared to 08/23/2023. No substantial change. Moderate right pleuraleffusion with opacification of the right mid and lower lung. Pulmonaryvascular congestion. Small left pleural effusion. Enlarged cardiacsilhouette. Retrocardiac atelectasis/consolidation. Pericardial effusion better seen on prior CT.Pulmonary edema is in the differential. Boone device. Gino Green M.D. IMG DIAGNOSTIC IMAGI NG PROCEDURES * (ABNORMAL) Magnesium (08/24/2023 7:54 AM CDT) Magnesium, S 3.0(H) 1.7 - 2.3 mg/dL 08/24/2023 9:15 AM CDT DTL Blood (Blood, Venous) 08/24/2023 7:54 AM CDT 08/24/2023 8:51 AM CDT Torito Ma M.D. LAB BLOOD ADD-ON [facility] [address] [place] [address], [facility] [address] [place] [address] * (ABNORMAL) Renal Function Panel (08/24/2023 7:54 AM CDT) Potassium, S 3.8 3.6 - 5.2 mmol/L 08/24/2023 9:15 AM CDT DTL Sodium, S 138 135 - 145 mmol/L 08/24/2023 9:15 AM CDT DTL Chloride, S 103 98 - 107 mmol/L 08/24/2023 9:15 AM CDT DTL Bicarbonate, S 23 22 - 29 mmol/L 08/24/2023 9:15 AM CDT DTL Anion Gap 12 7 - 15 08/24/2023 9:15 AM CDT DTL BUN (Blood Urea Nitrogen), S 47(H) 6 - 21 mg/dL 08/24/2023 9:15 AM CDT DTL Creatinine 1.98(H) 0.59 - 1.04 mg/dL 08/24/2023 9:15 AM CDT DTL Estimated GFR (eGFR) 27(L) >=60 mL/min/BSA 08/24/2023 9:15 AM CDT DTL Comment: Estimated GFR calculated using the 2020 CKD_EPI creatinine equation. Calcium, Total, S 8.5(L) 8.8 - 10.2 mg/dL 08/24/2023 9:15 AM CDT DTL Glucose, S 108 70 - 140 mg/dL 08/24/2023 9:15 AM CDT DTL Albumin, S 3.2(L) 3.5 - 5.0 g/dL 08/24/2023 9:15 AM CDT DTL Phosphorus (Inorganic), S 3.4 2.5 - 4.5 mg/dL 08/24/2023 9:15 AM CDT DTL Blood (Blood, Venous) 08/24/2023 7:54 AM CDT 08/24/2023 8:51 AM CDT Torito Ma M.D. LAB BLOOD ADD-ON [facility] [address] [place] [address], [facility] [address] [place] [address] * Tacrolimus, Trough (08/24/2023 7:54 AM CDT) Tacrolimus, Trough 9.1 5.0-15.0 (Trough) ng/mL 08/24/2023 1:26 PM CDT [facility] Comment: ----ADDITIONAL INFORMATION---- Target steady-state trough concentrations vary depending on the type of transplant, concomitant immunosuppression, clinical/institutional protocols, and time post-transplant. Results should be interpreted in conjunction with this clinical information and any physical signs/symptoms of rejection/toxicity. Testing performed by Liquid Chromatography-Tandem Mass Spectrometry (LC-MS/MS). This test was developed and its performance characteristics determined by [facility] in a manner consistent with CLIA requirements. This test has not been cleared or approved by the U.S. Food and Drug Administration. Blood (Blood, Venous) 08/24/2023 7:54 AM CDT 08/24/2023 10:35 AM CDT Torito Ma M.D. LAB BLOOD NON ADD-ON Performing Organization Address City/[facility]/ZIP Co de Phone Number [facility] [address] [place] [address] [facility] [address] [place] [address] [place] [address] * (ABNORMAL) Protein, Total (08/24/2023 7:42 AM CDT) Protein, Total, S 6.1(L) 6.3 - 7.9 g/dL 08/24/2023 3:42 PM CDT DTL Blood (Blood, Venous) 08/24/2023 7:42 AM CDT 08/24/2023 3:10 PM CDT Torito Ma M.D. LAB BLOOD ADD-ON Performing Organization Address City/[facility]/ZIP Co de Phone Number [facility] [address] [place] [address], [place] [facility] [address] [place] [address] * Ceruloplasmin (08/24/2023 4:14 AM CDT) Ceruloplasmin, S 32.8 20.0 - 51.0 mg/dL 08/25/2023 1:55 PM CDT DTL Blood (Blood, Venous) 08/24/2023 4:14 AM CDT 08/24/2023 7:19 AM CDT Torito Ma M.D. LAB BLOOD ADD-ON [facility] [address] [place] [address], [place] DTL [facility] [facility] [employer] [facility] [employer] [facility] [address] [place] [address] * (ABNORMAL) Selenium (08/24/2023 4:14 AM CDT) Selenium, S 82(L) 110 - 165 mcg/L 08/24/2023 10:42 AM CDT [facility] Comment: ----ADDITIONAL INFORMATION---- This test was developed and its performance characteristics determined by [facility] in a manner consistent with CLIA requirements. This test has not been cleared or approved by the U.S. Food and Drug Administration. Blood (Blood, Venous) 08/24/2023 4:14 AM CDT 08/24/2023 8:57 AM CDT Torito Ma M.D. LAB BLOOD NON ADD-ON Performing Organization Address [facility] Co de Phone Number [facility] [address] [place] [address] [facility] [address] [place] [address] [place] [address] * Copper (08/24/2023 4:14 AM CDT) Copper, S 121 77 - 206 mcg/dL 08/24/2023 10:42 AM CDT [facility] Comment: ----ADDITIONAL INFORMATION---- This test was developed and its performance characteristics determined by [facility] in a manner consistent with CLIA requirements. This test has not been cleared or approved by the U.S. Food and Drug Administration. Blood (Blood, Venous) 08/24/2023 4:14 AM CDT 08/24/2023 8:57 AM CDT Torito Ma M.D. LAB BLOOD NON ADD-ON Performing Organization Address City/[facility]/ZIP Co de Phone Number [facility] [address] [place] [address] [facility] [address] [place] [address] [place] [address] * (ABNORMAL) Vitamin A Level (08/24/2023 4:14 AM CDT) Vitamin A 32.2(L) 32.5 - 78.0 mcg/dL 08/26/2023 9:55 AM CDT [facility] Comment: ----ADDITIONAL INFORMATION---- This test was developed and its performance characteristics determined by [facility] in a manner consistent with CLIA requirements. This test has not been cleared or approved by the U.S. Food and Drug Administration. Blood (Blood, Venous) 08/24/2023 4:14 AM CDT 08/24/2023 12:26 PM CDT Torito Ma M.D. LAB BLOOD NON ADD-ON Performing Organization Address [facility] Co de Phone Number [facility] [address] [place] [address] [facility] [address] [place] [address] [place] [address] * (ABNORMAL) Zinc (08/24/2023 4:14 AM CDT) [facility] Zinc, S 44(L) 60 - 106 mcg/dL 08/24/2023 10:42 AM CDT [facility] Comment: ----ADDITIONAL INFORMATION---- This test was developed and its performance characteristics determined by [facility] in a manner consistent with CLIA requirements. This test has not been cleared or approved by the U.S. Food and Drug Administration. Blood (Blood, Venous) 08/24/2023 4:14 AM CDT 08/24/2023 8:57 AM CDT Torito Ma M.D. LAB BLOOD NON ADD-ON Performing Organization Address City/[facility]/ZIP Co de Phone Number [facility] [address] [place] [address] [facility] [address] [place] [address] [place] [address] * (ABNORMAL) CBC with Differential, Blood (08/24/2023 4:14 AM CDT) Hemoglobin 7.8(L) 11.6 - 15.0 g/dL 08/24/2023 4:52 AM CDT DTL Hematocrit 24.6(L) 35.5 - 44.9 % 08/24/2023 4:52 AM CDT DTL Erythrocytes 2.76(L) 3.92 - 5.13 x10(12)/L 08/24/2023 4:52 AM CDT DTL MCV 89.1 78.2 - 97.9 fL 08/24/2023 4:52 AM CDT DTL RBC Distrib Width 16.9(H) 12.2 - 16.1 % 08/24/2023 4:52 AM CDT DTL Platelet Count 349 157 - 371 x10(9)/L 08/24/2023 4:52 AM CDT DTL Leukocytes 10.3(H) 3.4 - 9.6 x10(9)/L 08/24/2023 4:52 AM CDT DTL Neutrophils 8.29(H) 1.56 - 6.45 x10(9)/L 08/24/2023 4:52 AM CDT DH[facility] Lymphocytes 1.05 0.95 - 3.07 x10(9)/L 08/24/2023 4:52 AM CDT DTL Monocytes 0.89(H) 0.26 - 0.81 x10(9)/L 08/24/2023 4:52 AM CDT DTL Eosinophils 0.03 0.03 - 0.48 x10(9)/L 08/24/2023 4:52 AM CDT DTL Basophils <0.03 0.01 - 0.08 x10(9)/L 08/24/2023 4:52 AM CDT DTL Blood (Blood, Venous) 08/24/2023 4:14 AM CDT 08/24/2023 4:41 AM CDT Akshat Rhoades M.D. LAB BLOOD ADD-ON [facility] [address] [place] [address], [facility] DTL [facility] [employer] [facility] [address] [place] [address] [facility] [address] [place] [address] * Ascorbic Acid (Vitamin C) (08/24/2023 4:13 AM CDT) Pathologist [facility] Ascorbic Acid, P 0.6 0.4 - 2.0 mg/dL 08/27/2023 4:30 AM CDT [facility] Comment: ----ADDITIONAL INFORMATION---- This test was developed and its performance characteristics determined by [facility] in a manner consistent with CLIA requirements. This test has not been cleared or approved by the U.S. Food and Drug Administration. Blood (Blood, Venous) 08/24/2023 4:13 AM CDT 08/26/2023 3:07 PM CDT Torito Ma M.D. LAB BLOOD NON ADD-ON [facility] [address] [place] [address] [facility] [address] [place] [address] [place] [address] * (ABNORMAL) Troponin T, 2h/6h, 5th Gen (08/23/2023 6:38 PM CDT) Pathologist [facility] Troponin T, 2 hr, 5th gen 85(H) <=10 ng/L 08/23/2023 7:08 PM CDT STMA 2H Delta -6 ng/L 08/23/2023 7:08 PM CDT STMA 2H Delta Interp Indeterminate 08/23/2023 7:08 PM CDT STMA Comment:Indeterminate delta, additional sample suggested Troponin T, 6 hr, 5th gen 85(H) <=10 ng/L 08/23/2023 11:52 PM CDT STMA 6H Delta -6 ng/L 08/23/2023 11:52 PM CDT STMA 6H Delta Interp Not Changing 08/23/2023 11:52 PM CDT STMA Blood (Blood, Venous) 08/23/2023 6:38 PM CDT 08/23/2023 6:43 PM CDT Narrative [facility] - 08/23/2023 11:52 PM CDT Specimen Information: Specimen ID: [id number] Specimen Type: Blood Specimen Collection Start Date: 08/23/2023 ??6:38 PM Specimen Received Date: 08/23/2023 ??6:43 PM Specimen ID: [id number] Specimen Type: Blood Specimen Collection Start Date: 08/23/2023 11:05 PM Specimen Received Date: 08/23/2023 11:12 PM Torito Ma M.D. LAB BLOOD TROPONIN Performing Organization Address City/[facility]/ZIP Co de Phone Number [facility] [address] STMA [facility] 200 [place] [address] * (ABNORMAL) Magnesium (08/23/2023 6:38 PM CDT) Magnesium, S 3.0(H) 1.7 - 2.3 mg/dL 08/23/2023 8:38 PM CDT DTL Blood (Blood, Venous) 08/23/2023 6:38 PM CDT 08/23/2023 7:40 PM CDT Torito Ma M.D. LAB BLOOD ADD-ON [facility] 200 [place], [place] [id number] [place] [address] DTL [facility] [address] [place] [address] * (ABNORMAL) Renal Function Panel (08/23/2023 6:38 PM CDT) Potassium, S 4.3 3.6 - 5.2 mmol/L 08/23/2023 8:58 PM CDT DTL Sodium, S 135 135 - 145 mmol/L 08/23/2023 8:58 PM CDT DTL Chloride, S 101 98 - 107 mmol/L 08/23/2023 8:58 PM CDT DTL Bicarbonate, S 19(L) 22 - 29 mmol/L 08/23/2023 8:38 PM CDT DTL Anion Gap 15 7 - 15 08/23/2023 8:58 PM CDT DTL BUN (Blood Urea Nitrogen), S 49(H) 6 - 21 mg/dL 08/23/2023 8:38 PM CDT DTL Creatinine 2.08(H) 0.59 - 1.04 mg/dL 08/23/2023 8:38 PM CDT DTL Estimated GFR (eGFR) 25(L) >=60 mL/min/BSA 08/23/2023 8:38 PM CDT DTL Comment: Estimated GFR calculated using the 2020 CKD_EPI creatinine equation. Calcium, Total, S 8.2(L) 8.8 - 10.2 mg/dL 08/23/2023 8:38 PM CDT DTL Glucose, S 213(H) 70 - 140 mg/dL 08/23/2023 8:38 PM CDT DTL Albumin, S 3.3(L) 3.5 - 5.0 g/dL 08/23/2023 8:38 PM CDT DTL Phosphorus (Inorganic), S 4.5 2.5 - 4.5 mg/dL 08/23/2023 8:38 PM CDT DTL Blood (Blood, Venous) 08/23/2023 6:38 PM CDT 08/23/2023 7:40 PM CDT Torito Ma M.D. LAB BLOOD ADD-ON [facility] [address] [place] [address], [facility] [address] [place] [address] * DX Chest Portable 1 View (08/23/2023 3:59 PM CDT) Anatomical Region Laterality Modality Chest, Thoracic RST LOS, Tho racic ARZ LOS, Thoracic FLA LOS N/A Digital Radiography Impressions 08/23/2023 4:03 PM CDT Compared to 08/22/2023. Increased moderate right pleural effusion. Decreased now small left pleural effusion. No other significant change. Pulmonary vascular congestion. Biapical scarring. Enlarged cardiac silhouette, the pericardial effusion was better seen on CT 08/19/2023. Boone device. Surgical clips in the neck. Narrative 08/23/2023 4:03 PM CDT EXAM: ??DX CHEST PORTABLE 1 VIEW Procedure Note Bridger Villar M.D., M.S. - 08/23/2023 EXAM: DX CHEST PORTABLE 1 VIEW IMPRESSION: Compared to 08/22/2023. Increased moderate right pleural effusion.Decreased now small left pleural effusion. No other significant change. Pulmonary vascular congestion. Biapicalscarring. Enlarged cardiac silhouette, the pericardial effusion was betterseen on CT 08/19/2023. Boone device. Surgical clips in the neck. Torito Ma M.D. [facility]ED[facility] * (ABNORMAL) Lipid Panel (08/23/2023 3:53 PM [...] M.D. LAB BLOOD ADD-ON Performing Organization Address City/[facility]/ZIP Co de Phone Number [facility] 200 [place] [address] * Hemoglobin A1c (08/23/2023 3:53 PM CDT) Pathologist [facility] Hemoglobin A1c, B 5.3 4.0 - 5.6 % 08/23/2023 4:33 PM CDT DTL Blood (Blood, Venous) 08/23/2023 3:53 PM CDT 08/23/2023 4:17 PM CDT Torito Ma M.D. LAB BLOOD ADD-ON Performing Organization Address City/[facility]/ZIP Co de Phone Number [facility] [address] [facility] 200 [place] [address] * Thyroid Function [place] (08/23/2023 3:53 PM CDT) TSH, Sensitive 0.9 0.3 - 4.2 mIU/L 08/23/2023 4:59 PM CDT DTL Blood (Blood, Venous) 08/23/2023 3:53 PM CDT 08/23/2023 4:33 PM CDT Torito Ma M.D. LAB BLOOD ADD-ON Performing Organization Address City/[facility]/ZIP Co de Phone Number [facility] [address] DTL [facility] 200 [place] [address] * (ABNORMAL) Troponin T, Baseline, 5th gen (08/23/2023 3:53 PM CDT) Troponin T, Baseline, 5th gen 91(H) <=10 ng/L 08/23/2023 4:15 PM CDT ST[facility] Blood (Blood, Venous) 08/23/2023 3:53 PM CDT 08/23/2023 4:00 PM CDT Torito Ma M.D. LAB BLOOD TROPONIN Performing Organization Address [facility] Co de Phone Number [facility] [address] STMA [facility] 200 [place] [address] * ECG 12 Lead (08/23/2023 3:16 PM CDT) Ventricular Rate ECG/Min 115 BPM MUSE QRSD Interval 98 ms MUSE QT Interval 356 ms MUSE QTC Interval 492 ms MUSE R Clinton 55 degrees MUSE T Wave [place] 223 degrees MUSE 08/23/2023 3:16 PM CDT 08/23/2023 3:24 PM CDT Impressions MUSE - 08/23/2023 3:24 PM CDT Atrial fibrillation with rapid ventricular response Low anterior forces Nonspecific ST and T wave abnormality When compared with ECG of 22-Aug-2023 23:13, No significant change was found Reviewed by ANA Barros Narrative Procedure Note Lester Arora Jr., M.D. - 08/23/2023 IMPRESSION: Atrial fibrillation with rapid ventricular response Low anterior forces Nonspecific ST and T wave abnormality When compared with ECG of 22-Aug-2023 23:13, No significant change was found Reviewed by ANA Barros Saundra Hinson M.D. ECG ORDERABLES Performing Organization Address City/[facility]/ZIP Co de Phone Number MUSE NA * (ABNORMAL) Microscopic Manual (08/23/2023 10:14 AM CDT) Microscopy Abnormal 08/23/2023 11:44 AM CDT DTL RBC <3 <3 /hpf 08/23/2023 11:44 AM CDT DTL WBC 1-3 /hpf 08/23/2023 11:44 AM CDT DTL Comment: ----REFERENCE VALUE---- <4 ??(Males) <11 (Females) Casts, Hyaline 1-3 /lpf 08/23/2023 11:44 AM CDT DTL Casts, Granular Occas(A) /lpf 08/23/2023 11:44 AM CDT DTL Renal Epithelial Cells 1-3(A) /hpf 08/23/2023 11:44 AM CDT DTL Crystals Calcium Oxalate crystals present 08/23/2023 11:44 AM CDT DTL Urine 08/23/2023 10:1 4 AM CDT 08/23/2023 10:58 AM CDT Torito Ma M.D. LAB URINE ORDERABLES Performing Organization Address [facility] Co de Phone Number [facility] [address] [address], [facility] [address] [place] [address] * (ABNORMAL) Dipstick, Urine (08/23/2023 10:14 AM CDT) Hemoglobin, QL, U Negative Negative 08/23/2023 11:00 AM CDT DTL Leukocyte Esterase, U Negative Negative 08/23/2023 11:00 AM CDT DTL Nitrite, U Negative Negative 08/23/2023 11:00 AM CDT DTL Ketone, U 5(A) Negative mg/dL 08/23/2023 11:00 AM CDT DTL Glucose, U Negative Negative mg/dL 08/23/2023 11:00 AM CDT DTL Urine 08/23/2023 10:1 4 AM CDT 08/23/2023 10:39 AM CDT Torito Ma M.D. LAB URINE ORDERABLES [facility] [address] [place] [address] * Osmolality, Urine (08/23/2023 10:14 AM CDT) Osmolality, U 324 150 - 1150 mOsm/kg 08/23/2023 11:23 AM CDT [facility] Urine 08/23/2023 10:1 4 AM CDT 08/23/2023 10:39 AM CDT Torito Ma M.D. LAB URINE ORDERABLES Performing Organization Address City/[facility]/ZIP Co de Phone Number [facility] [address] [place], [place] [address] [place] [address] 200 [place] [address] * pH, Urine (08/23/2023 10:14 AM CDT) pH, U 4.7 4.5 - 8.0 08/23/2023 11: 23 AM CDT [facility] Urine 08/23/2023 10:1 4 AM CDT 08/23/2023 10:39 AM CDT Torito Ma M.D. LAB URINE ORDERABLES Performing Organization Address City/[facility]/ZIP Co de Phone Number [facility] [address] [place], [place] [phone] [place] [address] 200 [place] [address] * (ABNORMAL) Urinalysis, with Microscopic: Urine, Midstream (08/23/2023 10:14 AM CDT) Source Urine, Urine, Midstream 08/23/2023 10:39 AM CDT DTL Color, U Yellow 08/23/2023 10:39 AM CDT DTL Clarity, U Clear 08/23/2023 10:39 AM CDT DTL Protein, U 22 <26 mg/dL 08/23/2023 11:26 AM CDT DTL Protein/Osmol ality 0.68(H) <0.42 ratio 08/23/2023 11:26 AM CDT DTL Predicted 24 HR Protein, U 471(H) <229 mg/24 h 08/23/2023 11:26 AM CDT DTL Predicted Range 116-1906 mg/24 h 08/23/2023 11:26 AM CDT DTL Urine (Urine, Midstream) 08/23/2023 10:14 AM CDT 08/23/2023 10:39 AM CDT Torito Ma M.D. LAB URINE ORDERABLES Performing Organization Address City/[facility]/ZIP Co de Phone Number [facility] [address] DTL [facility] 200 [place] [address] * Lactate for Sepsis with Reflex (08/23/2023 7:51 AM CDT) [facility] Lactate, P 0.5 0.5 - 2.2 mmol/L 08/23/2023 8:16 AM CDT STMA Blood (Blood, Venous) 08/23/2023 7:51 AM CDT 08/23/2023 7:56 AM CDT Torito Ma M.D. LAB BLOOD NON ADD-ON [facility] [address] STMA [facility] 200 [place] [address] * LD (Lactate Dehydrogenase) (08/23/2023 7:51 AM CDT) [facility] [place] LD 171 122 - 222 U/L 08/23/2023 8:48 AM CDT DTL Blood (Blood, Venous) 08/23/2023 7:51 AM CDT 08/23/2023 8:31 AM CDT Torito Ma M.D. LAB BLOOD NON ADD-ON Performing Organization Address [facility] Co de Phone Number [facility] [address] [place] [address], [facility] [address] [place] [address] * (ABNORMAL) Tacrolimus, Trough (08/23/2023 7:51 AM CDT) Tacrolimus, Trough 16.4(H) 5.0-15.0 (Trough) ng/mL 08/23/2023 1:15 PM CDT [facility] Comment: ----ADDITIONAL INFORMATION---- Target steady-state trough concentrations vary depending on the type of transplant, concomitant immunosuppression, clinical/institutional protocols, and time post-transplant. Results should be interpreted in conjunction with this clinical information and any physical signs/symptoms of rejection/toxicity. Testing performed by Liquid Chromatography-Tandem Mass Spectrometry (LC-MS/MS). This test was developed and its performance characteristics determined by [facility] in a manner consistent with CLIA requirements. This test has not been cleared or approved by the U.S. Food and Drug Administration. Blood (Blood, Venous) 08/23/2023 7:51 AM CDT 08/23/2023 9:52 AM CDT Torito Ma M.D. LAB BLOOD NON ADD-ON Performing Organization Address City/[facility] Co de Phone Number [facility] [address] [place] [address] [facility] [address] [place] [address] [place] [address] * (ABNORMAL) Magnesium (08/23/2023 3:09 AM CDT) Magnesium, S 3.2(H) 1.7 - 2.3 mg/dL 08/23/2023 3:59 AM CDT DTL Blood (Blood, Venous) 08/23/2023 3:09 AM CDT 08/23/2023 3:51 AM CDT Kira Tam M.D. LAB BLOOD ADD-ON [facility] [address] [place] [address] * Vancomycin, Random (08/23/2023 3:09 AM CDT) Vancomycin, Random, S 16.1 mcg/mL 08/23/2023 4:20 AM CDT DTL Comment: ----REFERENCE VALUE---- Peak: 20.0 - 45.0 Trough: 10.0 - 20.0 Blood (Blood, Venous) 08/23/2023 3:09 AM CDT 08/23/2023 3:40 AM CDT Cris Gracia M.D. LAB BLOOD NON AD D-ON Performing Organization Address [facility] Co de Phone Number [facility] [address] [place] [address] * (ABNORMAL) Magnesium (08/23/2023 3:09 AM CDT) Magnesium, S 3.2(H) 1.7 - 2.3 mg/dL 08/23/2023 4:36 AM CDT DT Blood (Blood, Venous) 08/23/2023 3:09 AM CDT 08/23/2023 3:51 AM CDT Torito Ma M.D. LAB BLOOD ADD-ON [facility] [address] [place], [place] [phone] [place] [address] [address] [place] [address] * (ABNORMAL) Renal Function Panel (08/23/2023 3:09 AM CDT) Potassium, S 4.7 3.6 - 5.2 mmol/L 08/23/2023 4:36 AM CDT DTL Sodium, S 136 135 - 145 mmol/L 08/23/2023 4:36 AM CDT DTL Chloride, S 100 98 - 107 mmol/L 08/23/2023 4:36 AM CDT DTL Bicarbonate, S 13(L) 22 - 29 mmol/L 08/23/2023 4:36 AM CDT DTL Anion Gap 23(H) 7 - 15 08/23/2023 4:36 AM CDT DTL BUN (Blood Urea Nitrogen), S 52(H) 6 - 21 mg/dL 08/23/2023 4:36 AM CDT DTL Creatinine 2.20(H) 0.59 - 1.04 mg/dL 08/23/2023 4:36 AM CDT DTL Estimated GFR (eGFR) 24(L) >=60 mL/min/BSA 08/23/2023 4:36 AM CDT DTL Comment: Estimated GFR calculated using the 2020 CKD_EPI creatinine equation. Calcium, Total, S 8.4(L) 8.8 - 10.2 mg/dL 08/23/2023 4:36 AM CDT DTL Glucose, S 64(L) 70 - 140 mg/dL 08/23/2023 4:36 AM CDT DTL Albumin, S 3.3(L) 3.5 - 5.0 g/dL 08/23/2023 4:36 AM CDT DTL Phosphorus (Inorganic), S 6.0(H) 2.5 - 4.5 mg/dL 08/23/2023 4:36 AM CDT DTL Blood (Blood, Venous) 08/23/2023 3:09 AM CDT 08/23/2023 3:51 AM CDT Torito Ma M.D. LAB BLOOD ADD-ON [facility] [address] [place] [address], [facility] DTL [facility] 200 [place] [address] * (ABNORMAL) CBC with Differential, Blood (08/23/2023 3:09 AM CDT) Hemoglobin 8.3(L) 11.6 - 15.0 g/dL 08/23/2023 3:47 AM CDT DTL Hematocrit 26.9(L) 35.5 - 44.9 % 08/23/2023 3:47 AM CDT DTL Erythrocytes 2.88(L) 3.92 - 5.13 x10(12)/L 08/23/2023 3:47 AM CDT DTL MCV 93.4 78.2 - 97.9 fL 08/23/2023 3:47 AM CDT DTL RBC Distrib Width 17.2(H) 12.2 - 16.1 % 08/23/2023 3:47 AM CDT DTL Platelet Count 342 157 - 371 x10(9)/L 08/23/2023 3:47 AM CDT DTL Leukocytes 14.9(H) 3.4 - 9.6 x10(9)/L 08/23/2023 3:47 AM CDT DTL Neutrophils 12.87(H) 1.56 - 6.45 x10(9)/L 08/23/2023 3:47 AM CDT DHPM Lymphocytes 1.08 0.95 - 3.07 x10(9)/L 08/23/2023 3:47 AM CDT DTL Monocytes 0.89(H) 0.26 - 0.81 x10(9)/L 08/23/2023 3:47 AM CDT DTL Eosinophils <0.03 0.03 - 0.48 x10(9)/L 08/23/2023 3:47 AM CDT DTL Basophils 0.03 0.01 - 0.08 x10(9)/L 08/23/2023 3:47 AM CDT DTL Blood (Blood, Venous) 08/23/2023 3:09 AM CDT 08/23/2023 3:41 AM CDT Akshat Rhoades M.D. LAB BLOOD ADD-ON [facility] 200 [place], [place] [address] 200 [place] [address] [facility] 200 [place] [address] * Hemoglobin A1c (08/23/2023 2:59 AM CDT) Hemoglobin A1c, B 5.3 4.0 - 5.6 % 08/23/2023 8:12 AM CDT DTL Blood (Blood, Venous) 08/23/2023 2:59 AM CDT 08/23/2023 8:03 AM CDT Torito Ma M.D. LAB BLOOD ADD-ON [facility] 200 [place], [place] [address] 200 [place] [address] * (ABNORMAL) Beta-Hydroxybutyrate (08/23/2023 2:59 AM CDT) Beta-Hydroxybut yrate, S 3.7(H) <0.4 mmol/L 08/23/2023 8:05 AM CDT DT Blood 08/23/2023 2:59 AM CDT 08/23/2023 7:24 AM CDT Torito Ma M.D. LAB BLOOD ADD-ON [facility] 200 [place], [place] [address] 200 [place] [address] * (ABNORMAL) Protein, Total (08/23/2023 2:59 AM CDT) Protein, Total, S 6.2(L) 6.3 - 7.9 g/dL 08/23/2023 8:05 AM CDT DTL Blood (Blood, Venous) 08/23/2023 2:59 AM CDT 08/23/2023 7:24 AM CDT Torito Ma M.D. LAB BLOOD ADD-ON [facility] [address] [place] [address], [facility] DTL [facility] [address] [place] [address] * (ABNORMAL) Troponin T, 2h/6h, 5th Gen (08/23/2023 1:28 AM CDT) Troponin T, 2 hr, 5th gen 86(H) <=10 ng/L 08/23/2023 1:50 AM CDT STMA 2H Delta 2 ng/L 08/23/2023 1:50 AM CDT STMA 2H Delta Interp Not Changing 08/23/2023 1:50 AM CDT STMA Troponin T, 6 hr, 5th gen CANCELED ng/L 08/23/2023 1:50 AM CDT STMA Comment:Result canceled by t he ancillary. 6H Delta CANCELED ng/L 08/23/2023 1:48 AM CDT STMA Comment:Result canceled by t he ancillary. 6H Delta % CANCELED % 08/23/2023 1:48 AM CDT STMA Comment:Result canceled by t he ancillary. Blood (Blood, Venous) 08/23/2023 1:28 AM CDT 08/23/2023 1:32 AM CDT Narrative [facility] - 08/23/2023 1:50 AM CDT Specimen Information: Specimen ID: [id number] Specimen Type: Blood Specimen Collection Start Date: 08/23/2023 ??1:28 AM Specimen Received Date: 08/23/2023 ??1:32 AM Specimen ID: [id number] Specimen Type: Blood Kira Tam M.D. LAB BLOOD TROPONIN [facility] [address] [place], [place] [phone] [place] [address] 200 [place] [address] * (ABNORMAL) Troponin T, Baseline, 5th gen (08/22/2023 11:23 PM CDT) Pathologist [facility] Troponin T, Baseline, 5th gen 84(H) <=10 ng/L 08/23/2023 12:11 AM CDT [facility] Blood (Blood, Venous) 08/22/2023 11:23 PM CDT 08/22/2023 11:28 PM CDT Kira Tam M.D. LAB BLOOD TROPONIN Performing Organization Address City/[facility] Co de Phone Number [facility] 200 [place], [place] [address] 200 [place] [address] * ECG 12 Lead (08/22/2023 11:13 PM CDT) Pathologist [facility] Ventricular Rate ECG/Min 109 BPM MUSE QRSD Interval 90 ms MUSE QT Interval 174 ms MUSE QTC Interval 234 ms MUSE R [place] 59 degrees MUSE T Wave [place] 251 degrees MUSE 08/22/2023 11:1 3 PM CDT 08/22/2023 11:30 PM CDT Impressions MUSE - 08/22/2023 11:30 PM CDT Atrial fibrillation with rapid ventricular response Low anterior forces Nonspecific ST and T wave abnormality When compared with ECG of 22-Aug-2023 21:59, T waves have changed Reviewed by ANA Jason Narrative Procedure Note Vamshi Fish M.D. - 08/22/2023 IMPRESSION: Atrial fibrillation with rapid ventricular response Low anterior forces Nonspecific ST and T wave abnormality When compared with ECG of 22-Aug-2023 21:59, T waves have changed Reviewed by ANA Jason Kira Tam M.D. ECG ORDERABLES Performing Organization Address City/[facility]/ZIP Co de Phone Number MUSE NA * Glucose, POCT (08/22/2023 11:02 PM CDT) Glucose, POCT, B 88 70 - 140 mg/dL 08/22/2023 11:04 PM CDT PCLX Site Capillary 08/22/2023 11:04 PM CDT PCLX Last Intake NPO 08/22/2023 11:04 PM CDT PCLX Blood 08/22/2023 11:0 2 PM CDT 08/22/2023 11:04 PM CDT Unknown Provider LAB POCT ORDERABLES- MANUAL Performing Organization Address City/[facility] Co de Phone Number POC [facility] [address] [place] [address], [facility] PCLX [facility] POC [address] [place] [address] * ECG 12 Lead (08/22/2023 9:59 PM CDT) Ventricular Rate ECG/Min 117 BPM MUSE QRSD Interval 90 ms MUSE QT Interval 332 ms MUSE QTC Interval 463 ms MUSE R [place] 66 degrees MUSE T Wave [place] 260 degrees MUSE 08/22/2023 9:59 PM CDT 08/22/2023 10:03 PM CDT Impressions MUSE - 08/22/2023 10:03 PM CDT Atrial fibrillation with rapid ventricular response Low anterior forces ST and T wave abnormality, consider lateral ischemia When compared with ECG of 22-Aug-2023 09:03, T wave inversion more evident in Lateral leads Reviewed by ANA Loving Narrative Procedure Note Vamshi Fish M.D. - 08/22/2023 IMPRESSION: Atrial fibrillation with rapid ventricular response Low anterior forces ST and T wave abnormality, consider lateral ischemia When compared with ECG of 22-Aug-2023 09:03, T wave inversion more evident in Lateral leads Reviewed by ANA Loving Kira Tam M.D. ECG ORDERABLES Performing Organization Address City/[facility]/ZIP Co de Phone Number MUSE NA * Protein, Total, Body Fluid (08/22/2023 8:09 PM CDT) Protein, Total, BF 2.8 See Comment g/dL 08/22/2023 10:01 PM CDT DTL Comment: ----ADDITIONAL INFORMATION---- A [...] clinical findings. All other fluids refer to [email or web address] for further interpretive information. This test has been modified from the carpet sewer's instructions. Its performance characteristics were determined by [facility] in a manner consistent with CLIA requirements. This test has not been cleared or approved by the U.S. Food and Drug Administration. Fluid Type, Protein, Total PLEURAL 08/22/2023 9:44 PM CDT DTL Fluid (Pleural Fluid, Left) 08/22/2023 8:09 PM CDT 08/22/2023 9:41 PM CDT John Monique M.D. LAB BODY FLUIDS AND STOOLS ORDERABLES [facility] [address] [place] [address], [facility] [address] [place] [address] * Lactate Dehydrogenase (LD), Body Fluid (08/22/2023 8:06 PM CDT) Lactate Dehydrogenase (LD), BF 115 See Comment U/L 08/22/2023 10:01 PM CDT DTL Comment: ----ADDITIONAL INFORMATION---- Pleural [...] clinical findings. All other fluids refer to [email or web address] for further interpretive information. This test has been modified from the carpet sewer's instructions. Its performance characteristics were determined by [facility] in a manner consistent with CLIA requirements. This test has not been cleared or approved by the U.S. Food and Drug Administration. Fluid Type, Lactate Dehydrogenase PLEURAL 08/22/2023 9:44 PM CDT DTL Fluid (Pleural Fluid, Left) 08/22/2023 8:06 PM CDT 08/22/2023 9:41 PM CDT John Monique M.D. LAB BODY FLUIDS AND STOOLS ORDERABLES Performing Organization Address [facility] Co de Phone Number [place] [address] [place] [address], [facility] [place] [address] [place] [address] * Cholesterol, Body Fluid (08/22/2023 8:02 PM CDT) Cholesterol, BF 27 See Comment mg/dL 08/22/2023 10:00 PM CDT DT Comment: ----ADDITIONAL INFORMATION---- Pleural fluid cholesterol concentrations > 45 to 65 mg/dL are consistent with exudative effusions. ??Cholesterol concentrations > 200 mg/dL suggest pseudochylous effusions. Peritoneal fluid cholesterol concentrations > 32 to 70 mg/dL suggest a malignant cause of ascites. All other fluids refer to [email or web address] for further interpretive information. This test has been modified from the carpet sewer's instructions. ??Its performance characteristics were determined by [facility] in a manner consistent with CLIA requirements. ??This test has not been cleared or approved by the U.S. Food and Drug Administration. Fluid Type Pleural 08/22/2023 9:44 PM CDT DTL Fluid (Pleural Fluid) 08/22/2023 8:02 PM CDT 08/22/2023 9:41 PM CDT John Monique M.D. LAB BODY FLUIDS AND STOOLS ORDERABLES Performing Organization Address City/[facility] Co de Phone Number [facility] [address], [place] [address] [address] [place] [address] * Potassium (08/22/2023 7:57 PM CDT) Potassium, S 4.6 3.6 - 5.2 mmol/L 08/22/2023 9:03 PM CDT DTL Blood (Blood, Venous) 08/22/2023 7:57 PM CDT 08/22/2023 8:45 PM CDT Patricia Sutton M.D. LAB BLOOD ADD-ON [facility] [address], [place] [id number] [place] [place] [address] [address] [place] [address] * IR Percutaneous Cholecystostomy Tube Placement (08/22/2023 5:18 PM CDT) Anatomical Region Laterality Modality Abdomen, Vascular Interventi onal RST LOS, Vascular Interventional ARZ LOS, Vascular Interventional FLA LOS N/A X-Ray Angiography Impressions 08/22/2023 5:30 PM CDT Uncomplicated 10 Hungarian cholecystostomy tube placement. Routine exchange in 3 months. NR Narrative 08/22/2023 5:30 PM CDT EXAM: IR PERCUTANEOUS CHOLECYSTOSTOMY TUBE PLACEMENT CLINICAL HISTORY: 68-year-old female with HIDA scan positive acute cholecystitis. She underwent unsuccessful endoscopic transpapillary stent placement attempt yesterday. She presents for cholecystostomy tube placement. TECHNIQUE: The right upper abdomen was prepped and draped in sterile fashion. Lidocaine used for local anesthesia. Under ultrasound guidance, an 18-gauge needle was used to access the gallbladder using a subcostal transhepatic approach. Satisfactory access was confirmed with a small contrast injection. There was retained contrast within the gallbladder from ERCP procedure yesterday. A sample of dark bile was sent for culture. A wire was advanced into the gallbladder and a 10 Hungarian by 25 cm locking loop tube was placed. Satisfactory position and function were confirmed with a contrast injection. Tube secured the skin with 2-0 Prolene stitch. No complication. PREPROCEDURE: Patient seen and evaluated. Allergies, pertinent medications, and history reviewed. Discussed risks, benefits, alternatives for procedure, and obtained informed consent. Patient understands information and questions answered. Immediately prior to starting the procedure, in the presence of the assisting personnel, procedural pause was conducted to verify correct patient identity and verification of procedure to be performed, and as applicable, correct side and site, correct patient position, availability of implants, special equipment, or special requirements, and all image and specimen identification data. The roles and responsibilities of care team members, residents, and fellows were discussed. Sedation provided by Anesthesiology. Procedure Note David Torres M.D. - 08/22/2023 EXAM: IR PERCUTANEOUS CHOLECYSTOSTOMY TUBE PLACEMENT CLINICAL HISTORY: 68-year-old female with HIDA scan positive acutecholecystitis. She underwent unsuccessful endoscopic transpapillary stentplacement attempt yesterday. She presents for cholecystostomy tubeplacement. TECHNIQUE: The right upper abdomen was prepped and draped in sterilefashion. Lidocaine used for local anesthesia. Under ultrasound guidance,an 18-gauge needle was used to access the gallbladder using a subcostaltranshepatic approach. Satisfactory access was confirmed with a small contrast injection. There was retainedcontrast within the gallbladder from ERCP procedure yesterday. A sample ofdark bile was sent for culture. A wire was advanced into the gallbladderand a 10 Hungarian by 25 cm locking loop tube was placed. Satisfactory position and function were confirmedwith a contrast injection. Tube secured the skin with 2-0 Prolene stitch.No complication. PREPROCEDURE: Patient seen and evaluated. Allergies, pertinentmedications, and history reviewed. Discussed risks, benefits, alternativesfor procedure, and obtained informed consent. Patient understandsinformation and questions answered. Immediately prior to starting the procedure, in the presence of the assistingpersonnel, procedural pause was conducted to verify correct patientidentity and verification of procedure to be performed, and as applicable,correct side and site, correct patient position, availability of implants, special equipment, or specialrequirements, and all image and specimen identification data. The rolesand responsibilities of care team members, residents, and fellows werediscussed. Sedation provided by Anesthesiology. IMPRESSION: Uncomplicated 10 Hungarian cholecystostomy tube placement. Routine exchangein 3 months. NR Patricia Sutton M.D. IMG IR PROCEDURES * Fungal Culture, Routine (08/22/2023 5:15 PM CDT) Fungal Culture, Routine No growth after 24 days of incubation. 09/16/2023 1:01 AM CDT DTL Fluid (Gallbladder) 08/22/2023 5:15 PM CDT 08/22/2023 6:10 PM CDT Comment:Specimen Source Site : Fluid Patricia Sutton M.D. LAB MICROBIOLOGY - G ENERAL ORDERABLES [facility] [address] [place] [address], [facility] [address] [place] [address] * Bacterial Culture, Anaerobic + Susceptibility (08/22/2023 5:15 PM CDT) Bacterial Culture, Anaerobic + Susc No growth after 14 days of incubation. 09/05/2023 7:29 AM CDT DTL Fluid (Gallbladder) 08/22/2023 5:15 PM CDT 08/22/2023 6:10 PM CDT Comment:Specimen Source Site : Fluid Patricia Sutton M.D. LAB MICROBIOLOGY - G ENERAL ORDERABLES [facility] [address] [place] [address], [facility] [address] [place] [address] * Gram Stain (08/22/2023 5:15 PM CDT) Gram Stain No organisms seen. 08/22/2023 8:41 PM CDT DTL Fluid (Gallbladder) 08/22/2023 5:15 PM CDT 08/22/2023 6:10 PM CDT Comment:Specimen Source Site : Fluid Patricia Sutton M.D. LAB MICROBIOLOGY - G ENERAL ORDERABLES Performing Organization Address [facility] Co de Phone Number [facility] [address] [place] [address] * Bacterial Culture, Aerobic + Susceptibility (08/22/2023 5:15 PM CDT) Bacterial Culture, Aerobic + Susc No growth after 5 days of incubation. 08/27/2023 8:29 AM CDT DT Fluid (Gallbladder) 08/22/2023 5:15 PM CDT 08/22/2023 6:10 PM CDT Comment:Specimen Source Site : Fluid Patricia Sutton M.D. LAB MICROBIOLOGY - G ENERAL ORDERABLES Performing Organization Address [facility] [place] [address] * NM Hepatobiliary with Pharmacologic Intervention (08/22/2023 3:41 PM CDT) Anatomical Region Laterality Modality Abdomen, Nuclear Medicine RS T LOS, Nuclear Medicine ARZ LOS, Nuclear Medicine FLA LOS, Nuclear Medicine N/A Nuclea r Medicine Impressions 08/22/2023 4:04 PM CDT Hepatobiliary scan images show findings indicating acute cholecystitis with cystic duct obstruction. ?? Discussed the results by phone with Dr. Torito Ma at 4:00 PM 08/22/2023. Narrative 08/22/2023 4:04 PM CDT EXAM: ??NM HEPATOBILIARY WITH PHARM RADIOPHARMACEUTICAL/MEDS: Route: intravenous sincalide injection 0.9 mcg (KINEVAC),0.9 mcg Route: intravenous technetium Tc 99m mebrofenin (Tc-99m CHOLETEC) , 6.5 millicurie TECHNIQUE: Sequential dynamic anterior planar images of the abdomen were obtained immediately after IV radiotracer injection out to 60 minutes. Pharmacologic intervention was performed prior to injection due to the patient fasting. COMPARISON: ??No previous hepatobiliary scan. Outside ultrasound of the abdomen dated 08/20/2023 reviewed [facility] on 08/20/2023. INDICATION: ??Right upper quadrant abdominal pain. Biliary disease suspected. FINDINGS: ??Following tracer injection is prompt uptake by the liver. The liver appears normal size. There is homogeneous uptake seen throughout. Imaging over 60 minutes showed no filling of the gallbladder. Activity was seen flowing normally through the common bile duct into the small bowel. Procedure Note Enrique Harman M.D. - 08/22/2023 EXAM: NM HEPATOBILIARY WITH PHARM RADIOPHARMACEUTICAL/MEDS: Route: intravenous sincalide injection 0.9 mcg (KINEVAC),0.9 mcg Route: intravenous technetium Tc 99m mebrofenin (Tc-99m CHOLETEC) , 6.5 millicurie TECHNIQUE: Sequential dynamic anterior planar images of the abdomen wereobtained immediately after IV radiotracer injection out to 60 minutes.Pharmacologic intervention was performed prior to injection due to thepatient fasting. COMPARISON: No previous hepatobiliary scan. Outside ultrasound of theabdomen dated 08/20/2023 reviewed [facility] on 08/20/2023. INDICATION: Right upper quadrant abdominal pain. Biliary diseasesuspected. FINDINGS: Following tracer injection is prompt uptake by the liver. Theliver appears normal size. There is homogeneous uptake seen throughout.Imaging over 60 minutes showed no filling of the gallbladder. Activity was seen flowing normally through the common bile duct into thesmall bowel. IMPRESSION: Hepatobiliary scan images show findings indicating acute cholecystitiswith cystic duct obstruction. Discussed the results by phone with Dr. Torito Ma at 4:00 PM 08/22/2023. Torito Ma M.D. IMG NM PROCEDURES * (TTE) 2D ECHO DOPPLER COLOR (08/22/2023 2:43 PM CDT) Ejection Fraction 66 MC CV EIMS LV End-Diastolic Diameter 49 MC CV EIMS LV End-Systolic Diameter 30 MC CV EIMS MV E Velocity 0.9 MC CV EIMS MV A Velocity 1 MC CV EIMS MV E/A 0.9 MC CV EIMS MV e' Velocity Medial 0.06 MC CV EIMS MV E/e' Medial 15 MC CV EIMS Left ventricular stroke volume index 72 MC CV EIMS Cardiac Output 6.49 MC CV EIMS Cardiac Index 4.64 MC CV EIMS TAPSE 23 MC CV EIMS Tricuspid Annular S? 0.16 MC CV EIMS TR Vmax 3.02 MC CV EIMS RA Pressure 15 MC CV EIMS RV Systolic Pressure 51 MC CV EIMS TR Vmax/RVOT TVI 0.18 MC CV EIMS AV mean gradient 6 MC CV EIMS Aortic valve area 2.78 MC CV EIMS Aortic Valve Dimensionless Index 0.8 MC CV EIMS Aortic Valve Systolic Peak Velocity 1.8 MC CV EIMS Anatomical Region Laterality Modality Echocardiography 08/22/2023 1:22 PM CDT Impressions 08/22/2023 5:52 PM CDT Echo performed at the patient's bedside. Anemia, thyrotoxicosis, or another high output state could contribute to the increased Doppler velocities. Hemoglobin measured 22-AUG-2023) 8.0 g/dL. LEFT VENTRICLE:Normal left ventricular chamber size. Calculated 2-D linear left ventricular ejection fraction 66%. No regional wall motion abnormalities. Elevated left ventricular filling pressure. RIGHT VENTRICLE:Normal right ventricular chamber size. Normal right ventricular systolic function. Estimated right ventricular systolic pressure 51 mmHg (right atrial pressure of 15 mmHg). Mid systolic notching flow pattern of the right ventricular outflow tract consistent with an elevation in pulmonary vascular resistance. ATRIA:Enlarged left atrial size by visual estimate. Normal right atrial size by visual estimate. CARDIAC VALVES:Trileaflet aortic valve. Mildly calcified aortic valve. Trivial aortic valve regurgitation. Thickened mitral valve. ??mildly calcified mitral annulus. Trivial mitral valve regurgitation. Normal pulmonary valve. Mild pulmonary valve regurgitation. Normal tricuspid valve. Moderate-severe tricuspid valve regurgitation. OTHER ECHO FINDINGS:Mildly enlarged inferior vena cava size with reduced inspiratory collapse (<50%). Hepatic vein dilatation. No intracardiac mass or thrombus, but the left atrial appendage cannot be visualized adequately with transthoracic echo to exclude thrombus in this location. Small circumferential pericardial effusion. Strands in pericardial effusion. Clips 33 and 34. For the complete report, see the Order-Level Documents. Narrative 08/22/2023 5:52 PM CDT For the complete report, see the Order-Level Documents. Hemodynamics Heart Rate: 64 BPM Blood Pressure: 102 / 64 mmHg ECG: Sinus rhythm Final Impressions 1. Normal left ventricular chamber size, no regional wall motion abnormalities, calculated 2-D linear ejection fraction 66%. 2. Elevated left ventricular filling pressure. 3. Normal right ventricular chamber size, normal systolic function, estimated right ventricular systolic pressure 51 mmHg (right atrial pressure of 15 mmHg). 4. Moderate-severe tricuspid valve regurgitation. 5. Mildly enlarged inferior vena cava size with reduced inspiratory collapse (<50%). 6. Small circumferential pericardial effusion ( ??Small moderate posterior laterally) 7. Compared to the report of 05/20/2023 the following changes have occurred: The size of the pericardial effusion has increased. The degree of tricuspid valve regurgitation has increased. recommend limited study for re-evaluation of effusion in 1 week ?? Or before if symptoms.. ??Side by side comparison of images performed. Procedure Note José Carballo M.D. - 08/22/2023 For the complete report, see the Order-Level Documents. Hemodynamics Heart Rate: 64 BPM Blood Pressure: 102 / 64 mmHg ECG: Sinus rhythm Final Impressions 1. Normal left ventricular chamber size, no regional wall motionabnormalities, calculated 2-D linear ejection fraction 66%. 2. Elevated left ventricular filling pressure. 3. Normal right ventricular chamber size, normal systolic function,estimated right ventricular systolic pressure 51 mmHg (right atrialpressure of 15 mmHg). 4. Moderate-severe tricuspid valve regurgitation. 5. Mildly enlarged inferior vena cava size with reduced inspiratorycollapse (<50%). 6. Small circumferential pericardial effusion ( Small moderate posteriorlaterally) 7. Compared to the report of 05/20/2023 the following changes haveoccurred: The size of the pericardial effusion has increased. The degreeof tricuspid valve regurgitation has increased. recommend limited studyfor re-evaluation of effusion in 1 week Or before if symptoms.. Side byside comparison of images performed. Findings Echo performed at the patient's bedside. Anemia, thyrotoxicosis, oranother high output state could contribute to the increased Dopplervelocities. Hemoglobin measured 22-AUG-2023) 8.0 g/dL. LEFT VENTRICLE:Normal left ventricular chamber size. Calculated 2-D linearleft ventricular ejection fraction 66%. No regional wall motionabnormalities. Elevated left ventricular filling pressure. RIGHT VENTRICLE:Normal right ventricular chamber size. Normal rightventricular systolic function. Estimated right ventricular systolicpressure 51 mmHg (right atrial pressure of 15 mmHg). Mid systolic notchingflow pattern of the right ventricular outflow tract consistent with anelevation in pulmonary vascular resistance. ATRIA:Enlarged left atrial size by visual estimate. Normal right atrialsize by visual estimate. CARDIAC VALVES:Trileaflet aortic valve. Mildly calcified aortic valve.Trivial aortic valve regurgitation. Thickened mitral valve. mildlycalcified mitral annulus. Trivial mitral valve regurgitation. Normalpulmonary valve. Mild pulmonary valve regurgitation. Normal tricuspidvalve. Moderate-severe tricuspid valve regurgitation. OTHER ECHO FINDINGS:Mildly enlarged inferior vena cava size with reducedinspiratory collapse (<50%). Hepatic vein dilatation. No intracardiac massor thrombus, but the left atrial appendage cannot be visualized adequatelywith transthoracic echo to exclude thrombus in this location. Smallcircumferential pericardial effusion. Strands in pericardial effusion.Clips 33 and 34. For the complete report, see the Order-Level Documents. Torito Ma M.D. CV ECHO PROCEDURES * Broad Range Bacteria PCR + Sequencing (08/22/2023 2:18 PM CDT) [facility] Broad Range Bacteria PCR+Sequencin g No bacterial DNA detected. This test was developed and its performance characteristics determined by [facility] in a manner consistent with CLIA requirements. This test has not been cleared or approved by the U.S. Food and Drug Administration. 08/23/2023 1:57 PM CDT DT Fluid (Pleural Fluid, Left) 08/22/2023 2:18 PM CDT 08/22/2023 4:50 PM CDT Comment:Specimen Source Site : Fluid Narrative [facility] - 08/23/2023 1:57 PM CDT Bacterial Culture: Received Bactec aerobic and Bactec anaerobic bottles Torito Ma M.D. LAB MICROBIOLOGY - [facility] ORDERABLES [facility] [address] [place] [address], [facility] [address] [place] [address] * Cytology Non-LINE TENDER FLAKEBOARD (08/22/2023 2:18 PM CDT) Pathologist [facility] 08/23/2023 5:42 PM CDT DTL Report electronically signed by Vamshi Hinojosa M.D. I verify that I have examined all relevant slides/materi als for the specimen(s) and rendered or confirmed the diagnosis. 08/23/2023 5:42 PM CDT DTL Gross Description Received 800 cc of yellow fluid. 08/23/2023 5:42 PM CDT DTL Source A. Pleural, Left, fluid 08/23/2023 5:42 PM CDT DTL Interpretation A. Pleural, Left, fluid (ThinPrep): Negative for malignancy. ?? Acute inflammation. 08/23/2023 5:42 PM CDT DTL Fluid (Pleural Fluid, Left) 08/22/2023 2:18 PM CDT 08/22/2023 4:22 PM CDT Torito Ma M.D. LAB SURG PATH ORDERA BLES [facility] [address] [place] [address], [facility] DTL [address] [facility] [address] [place] [address] * Leukemia/Lymphoma Immunophenotyping by Flow Cytometry, Body Fluid (08/22/2023 2:18 PM CDT) Pathologist [facility] Leukemia/Lymph mathieu Phenotype, BF See Cytology Report DEFAULT 08/22/2023 4:15 PM CDT DHPM Fluid (Pleural Fluid, Left) 08/22/2023 2:18 PM CDT 08/22/2023 4:15 PM CDT Torito Ma M.D. LAB BODY FLUIDS AND STOOLS ORDERABLES [facility] [address] [place] [address], [facility] [address] [place] [address] * Fungal Smear (08/22/2023 2:18 PM CDT) Fungal Smear Negative. 08/22/2023 10:42 PM CDT DTL Fluid (Pleural Fluid, Left) 08/22/2023 2:18 PM CDT 08/22/2023 4:50 PM CDT Comment:Specimen Source Site : Fluid Narrative [facility] - 08/22/2023 10:42 PM CDT Bacterial Culture: Received Bactec aerobic and Bactec anaerobic bottles Torito Ma M.D. LAB MICROBIOLOGY - G ENERAL ORDERABLES [facility] [address] [place] [address], [facility] [address] [place] [address] * Mycobacterial Culture (08/22/2023 2:18 PM CDT) Mycobacterial Culture No growth after 42 days of incubation . 10/04/2023 1:02 AM CDT DTL Fluid (Pleural Fluid, Left) 08/22/2023 2:18 PM CDT 08/22/2023 4:50 PM CDT Comment:Specimen Source Site : Fluid Narrative [facility] - 10/04/2023 1:02 AM CDT Bacterial Culture: Received Bactec aerobic and Bactec anaerobic bottles Torito Ma M.D. LAB MICROBIOLOGY - G ENERAL ORDERABLES [facility] [address] [place] [address], [facility] [address] [place] [address] * Acid Fast Smear for Mycobacterium (08/22/2023 2:18 PM CDT) Acid Fast Smear For Mycobacterium Negative. 08/22/2023 10:55 PM CDT DTL Fluid (Pleural Fluid, Left) 08/22/2023 2:18 PM CDT 08/22/2023 4:50 PM CDT Comment:Specimen Source Site : Fluid Narrative [facility] - 08/22/2023 10:55 PM CDT Bacterial Culture: Received Bactec aerobic and Bactec anaerobic bottles Torito Ma M.D. LAB MICROBIOLOGY - G ENERAL ORDERABLES Performing Organization Address City/[facility]/ZIP Co de Phone Number [facility] [address] [place] [address], [facility] [address] [place] [address] * Fungal Culture, Routine (08/22/2023 2:18 PM CDT) Fungal Culture, Routine No growth after 24 days of incubation. 09/16/2023 1:01 AM CDT DT Fluid (Pleural Fluid, Left) 08/22/2023 2:18 PM CDT 08/22/2023 4:50 PM CDT Comment:Specimen Source Site : Fluid Narrative [facility] - 09/16/2023 1:01 AM CDT Bacterial Culture: Received Bactec aerobic and Bactec anaerobic bottles Torito Ma M.D. LAB MICROBIOLOGY - G ENERAL ORDERABLES Performing Organization Address City/[facility] Co de Phone Number [facility] [address] [place] [address], [facility] [address] [place] [address] * Glucose, Body Fluid (08/22/2023 2:18 PM CDT) Glucose, BF 81 See Comment mg/dL 08/22/2023 9:57 PM CDT DT Comment: ----ADDITIONAL INFORMATION---- Body fluid glucose concentrations may be decreased due to increased cellular metabolism and should be interpreted in the context of blood glucose concentrations and in conjunction with other laboratory and clinical findings. Pleural, Peritoneal, and Pericardial fluid and serum glucose concentrations are similar in the absence of infection. Synovial fluid glucose concentrations are similar to fasting blood glucose concentrations or approximately 50% of the non-fasting serum glucose concentration under normal conditions. Values below this can be seen with infection. Amniotic fluid glucose <16 mg/dL is suggestive of infection. All other fluids refer to [email or web address].com for further interpretive information. This test has been modified from the carpet sewer's instructions. Its performance characteristics were determined by [facility] in a manner consistent with CLIA requirements. This test has not been cleared or approved by the U.S. Food and Drug Administration. Fluid Type, Glucose Fluid, Pleural Fluid, Left 08/22/2023 4:04 PM CDT DTL Fluid (Pleural Fluid, Left) 08/22/2023 2:18 PM CDT 08/22/2023 4:15 PM CDT Torito Ma M.D. LAB BODY FLUIDS AND STOOLS ORDERABLES Performing Organization Address [facility] Co de Phone Number [facility] [address] [place] [address] * Bacterial Culture, Aerobic + Susceptibility (08/22/2023 2:18 PM CDT) Bacterial Culture, Aerobic + Susc No growth after 5 days of incubation. 08/27/2023 8:29 AM CDT DTL Fluid (Pleural Fluid, Left) 08/22/2023 2:18 PM CDT 08/22/2023 4:50 PM CDT Comment:Specimen Source Site : Fluid Narrative [facility] - 08/27/2023 8:29 AM CDT Bacterial Culture: Received Bactec aerobic and Bactec anaerobic bottles Torito Ma M.D. LAB MICROBIOLOGY - G ENERAL ORDERABLES Performing Organization Address City/[facility]/ZIP Co de Phone Number [facility] [address] [place] [address] * Gram Stain (08/22/2023 2:18 PM CDT) Gram Stain No organisms seen. White blood cells, Present. 08/22/2023 8:21 PM CDT DTL Fluid (Pleural Fluid, Left) 08/22/2023 2:18 PM CDT 08/22/2023 4:50 PM CDT Comment:Specimen Source Site : Fluid Narrative [facility] - 08/22/2023 8:21 PM CDT Bacterial Culture: Received Bactec aerobic and Bactec anaerobic bottles Torito Ma M.D. LAB MICROBIOLOGY - [facility] ORDERABLES [facility] [address] [place] [address], [facility] [address] [place] [address] * Cell Count and Differential, Body Fluid (08/22/2023 2:18 PM CDT) Fluid Type Left; Pleural/Th oracentesi s 08/22/2023 4:26 PM CDT DHPM Gross Appearance Serous 08/22/19 24 4:26 PM CDT DHPM Total Nucleated Cells 1190 /mcL 08/22/2023 4:26 PM CDT DHPM Comment: ----REFERENCE VALUE---- Synovial: <150 /mcL Peritoneal: <500 /mcL Pleural: <500 /mcL Pericardial: <500 /mcL ----ADDITIONAL INFORMATION---- This test has been modified from the carpet sewer's instructions. Its performance characteristics were determined by [facility] in a manner consistent with CLIA requirements. This test has not been cleared or approved by the U.S. Food and Drug Administration. Neutrophils 34 % 08/22/2023 5:17 PM CDT DHPM Comment: ----REFERENCE VALUE---- Synovial: <25% Peritoneal: <25% Pleural: <25% Pericardial: <25% Lymphocytes 6 Synovial <75% % 08/22/2023 5:17 PM CDT DHPM Monocytes/Macropha ges 58 Synovial <70% % 08/22/2023 5:17 PM CDT DHPM Other Cells 2 % 08/22/2023 5:17 PM CDT DHPM Comment: ----REFERENCE VALUE---- The reference range and other method performance specifications have not been established for this bodyfluid. The test result must be integrated into the clinical context for interpretation. Other Cells Are: See Comment 08/23/2023 2:39 PM CDT [facility] Comment:Mesothelial cells Comment See Comment 08/23/2023 2:39 PM CDT [facility] Comment: Flow cytometry not indicated per MD.Cytology concurrently ordered, see separate report. Reviewed by: Charmaine 08/23/2023 2:39 PM CDT [facility] Fluid (Pleural Fluid, Left) 08/22/2023 2:18 PM CDT 08/22/2023 4:15 PM CDT Torito Ma M.D. LAB BODY FLUIDS AND STOOLS ORDERABLES Performing Organization Address City/[facility]/ZIP Co de Phone Number [facility] [address] [place] [address] * Potassium (08/22/2023 12:58 PM CDT) Potassium, S 4.2 3.6 - 5.2 mmol/L 08/22/2023 1:57 PM CDT DTL Blood (Blood, Venous) 08/22/2023 12:58 PM CDT 08/22/2023 1:41 PM CDT Patricia Sutton M.D. LAB BLOOD ADD-ON Performing Organization Address City/[facility]/ZIP Co de Phone Number [facility] [address] [place] [address], [facility] [address] [place] [address] * NE THORACENTESIS PLEURA W IMG (08/22/2023 11:45 AM CDT) Narrative Cris Gracia M.D. - 08/22/2023 11:45 AM CDT Estephanie Lewis M.D. ? 08/23/2023 ??6:57 AM Thoracentesis Performed by: Estephanie Lewis M.D. Authorized by: Estephanie Lewis M.D. ?? Care team members present 1. Estephanie Lewis M.D. 2. Cris Gracia M.D. PROCEDURE DETAILS Patient position: sitting Location: left posterior axillary Intercostal space: 9th Puncture method: [id number] catheter Number of attempts: 1 Drainage characteristics: serous Estimated amount of fluid removed (ml): 900 ??Ultrasound image guidance used to localize target, identify at risk structures, and dynamically used to direct therapy to the target. Image(s) acquired and saved. Additional procedure details: Safe Pocket identified in the Left Posterior Axilla at the 9th rib space. Lidociane 1% infiltrated into subcutaneous tissues. Long Yueh Catheter with needle advanced 1.5cm with obvious serous fluid noted in the syringe. Catheter then advanced without issues. Bacterial culture samples collected. Rest of pleural effusion drained till patient began coughing. Decision made to stop at that time. Post-thoracentesis ultrasound demonstrated small collection left over but otherwise lung sliding and expansion of L lung. CONSENT Consent obtained: written (Risks, benefits and [...] Procedure purpose: therapeutic Indications: benign pleural effusion SEDATION / ANESTHESIA Anesthesia method: local infiltration Local infiltrate type: lidocaine POST-PROCEDURE DETAILS Post-procedure chest x-ray performed: yes ?? X-ray findings: pending Procedure successful: yes Complications: no apparent complications Estephanie Lewis M.D. PROCEDURE/MINOR MILENA GICAL ORDERABLES * (ABNORMAL) Troponin T, 5th Generation (08/22/2023 9:49 AM CDT) Troponin T, 5th gen 72(H) <=10 ng/L 08/22/2023 10:09 AM CDT STMA Blood (Blood, Venous) 08/22/2023 9:49 AM CDT 08/22/2023 9:53 AM CDT Ariel Karimi M.D. LAB BLOOD ADD-ON [facility] [address] [place] [address], [facility] STMA [facility] [address] [place] [address] * (ABNORMAL) CBC with Differential, Blood (08/22/2023 9:49 AM CDT) Hemoglobin 8.0(L) 11.6 - 15.0 g/dL 08/22/2023 9:55 AM CDT STMA Hematocrit 24.9(L) 35.5 - 44.9 % 08/22/2023 9:55 AM CDT STMA Erythrocytes 2.75(L) 3.92 - 5.13 x10(12)/L 08/22/2023 9:55 AM CDT STMA MCV 90.5 78.2 - 97.9 fL 08/22/2023 9:55 AM CDT STMA RBC Distrib Width 17.1(H) 12.2 - 16.1 % 08/22/2023 9:55 AM CDT STMA Platelet Count 248 157 - 371 x10(9)/L 08/22/2023 9:55 AM CDT STMA Leukocytes 13.1(H) 3.4 - 9.6 x10(9)/L 08/22/2023 9:55 AM CDT STMA Neutrophils 10.98(H) 1.56 - 6.45 x10(9)/L 08/22/2023 9:55 AM CDT DHPM Lymphocytes 1.01 0.95 - 3.07 x10(9)/L 08/22/2023 9:55 AM CDT STMA Monocytes 1.11(H) 0.26 - 0.81 x10(9)/L 08/22/2023 9:55 AM CDT STMA Eosinophils <0.03 0.03 - 0.48 x10(9)/L 08/22/2023 9:55 AM CDT STMA Basophils <0.03 0.01 - 0.08 x10(9)/L 08/22/2023 9:55 AM CDT STMA Blood (Blood, Venous) 08/22/2023 9:49 AM CDT 08/22/2023 9:53 AM CDT Ariel Karimi M.D. LAB BLOOD ADD-ON [facility] [address] [place] [address], [facility] STMA [facility] [address] [place] [address] DHPM [facility] [address] [place] [address] * Magnesium (08/22/2023 9:49 AM CDT) Pathologist [facility] Magnesium, S 2.0 1.7 - 2.3 mg/dL 08/22/2023 11:04 AM CDT DTL Blood (Blood, Venous) 08/22/2023 9:49 AM CDT 08/22/2023 10:47 AM CDT Ariel Karimi M.D. LAB BLOOD ADD-ON Performing Organization Address City/[facility]/ZIP Co de Phone Number [facility] [address] [place], [place] [address] DTL [facility] [address] [place] [address] * (ABNORMAL) Basic Metabolic Panel (08/22/2023 9:49 AM CDT) Potassium, P 3.9 3.6 - 5.2 mmol/L 08/22/2023 10:09 AM CDT STMA Sodium, P 137 135 - 145 mmol/L 08/22/2023 10:09 AM CDT STMA Chloride, P 102 98 - 107 mmol/L 08/22/2023 10:09 AM CDT STMA Bicarbonate, P 18(L) 22 - 29 mmol/L 08/22/2023 10:09 AM CDT STMA Anion Gap, P 17(H) 7 - 15 08/22/2023 10:09 AM CDT STMA BUN (Blood Urea Nitrogen), P 46(H) 6 - 21 mg/dL 08/22/2023 10:09 AM CDT STMA Creatinine 2.05(H) 0.59 - 1.04 mg/dL 08/22/2023 10:09 AM CDT STMA Estimated GFR (eGFR) 26(L) >=60 mL/min/BSA 08/22/2023 10:09 AM CDT STMA Comment: Estimated GFR calculated using the 2020 CKD_EPI creatinine equation. Calcium, Total, P 8.5(L) 8.8 - 10.2 mg/dL 08/22/2023 10:09 AM CDT STMA Glucose, P 83 70 - 140 mg/dL 08/22/2023 10:09 AM CDT STMA Blood (Blood, Venous) 08/22/2023 9:49 AM CDT 08/22/2023 9:53 AM CDT Ariel Karimi M.D. LAB BLOOD ADD-ON [facility] [address] [place] [address], [facility] [address] [place] [address] * ECG 12 Lead (08/22/2023 9:03 AM CDT) Ventricular Rate ECG/Min 112 BPM MUSE QRSD Interval 96 ms MUSE QT Interval 370 ms MUSE QTC Interval 505 ms MUSE R Clinton 26 degrees MUSE T Wave Clinton 132 degrees MUSE 08/22/2023 9:03 AM CDT 08/22/2023 10:06 AM CDT Impressions MUSE - 08/22/2023 9:23 AM CDT Atrial fibrillation with rapid ventricular response Minimal voltage criteria for LVH, may be normal variant Nonspecific ST and T wave abnormality When compared with ECG of 22-Aug-2023 06:42, Significant changes have occurred Reviewed by ANA Barboza Narrative Procedure Note Lester Arora Jr., M.D. - 08/22/2023 IMPRESSION: Atrial fibrillation with rapid ventricular response Minimal voltage criteria for LVH, may be normal variant Nonspecific ST and T wave abnormality When compared with ECG of 22-Aug-2023 06:42, Significant changes have occurred Reviewed by ANA Barboza Cris Gracia M.D. ECG ORDERABLES Performing Organization Address City/[facility]/ZIP Co de Phone Number MUSE NA * Glucose, POCT (08/22/2023 8:33 AM CDT) [facility] Glucose, POCT, B 91 70 - 140 mg/dL 08/22/2023 8:34 AM CDT PCLX Blood 08/22/2023 8:33 AM CDT 08/22/2023 8:34 AM CDT Unknown Provider LAB POCT ORDERABLES- MANUAL Performing Organization Address [facility] Co de Phone Number POC [facility] [address] [place] [address], [facility] PCLX [facility] POC [address] [place] [address] * (ABNORMAL) Lactate, POCT (08/22/2023 6:44 AM CDT) [facility] Lactate, POCT <0.30(L) 0.50 - 2.20 mmol/L 08/22/2023 7:14 AM CDT P[facility] Sample Site, POCT Artstick 08/22/2023 7:14 AM CDT [facility] Blood 08/22/2023 6:44 AM CDT 08/22/2023 7:14 AM CDT Unknown Provider LAB POCT ORDERABLES - DEVICE Performing Organization Address [facility] Co de Phone Number [facility] [address] [place] [address], [facility] PCLX [facility] [address] [place] [address] * ECG 12 Lead (08/22/2023 6:42 AM CDT) [facility] Ventricular Rate ECG/Min 69 BPM MUSE NE Interval 144 ms MUSE QRSD Interval 90 ms MUSE QT Interval 440 ms MUSE QTC Interval 472 ms MUSE P Clinton 37 degrees MUSE R Clinton 47 degrees MUSE T Wave [place] 62 degrees MUSE 08/22/2023 6:42 AM CDT 08/22/2023 6:50 AM CDT Impressions MUSE - 08/22/2023 6:50 AM CDT Sinus rhythm Premature atrial complexes Low anterior forces Nonspecific ST and T wave abnormality When compared with ECG of 20-Aug-2023 22:25, Premature atrial complexes are now present Reviewed by ANA Velazquez Narrative Procedure Note Vamshi Fish M.D. - 08/22/2023 IMPRESSION: Sinus rhythm Premature atrial complexes Low anterior forces Nonspecific ST and T wave abnormality When compared with ECG of 20-Aug-2023 22:25, Premature atrial complexes are now present Reviewed by ANA Velazquez Jt Mccann M.D. ECG ORDERABLES MUSE NA * (ABNORMAL) ABG and Lytes CG8+, POCT, Blood (08/22/2023 6:40 AM CDT) Sample Site, POCT Artstick 08/22/2023 7:14 AM CDT PCLX Comment: ----ADDITIONAL INFORMATION---- Performed at the Point of Care pH, POCT 7.31(L) 7.35 - 7.45 08/22/2023 7:14 AM CDT PCLX Comment: ----ADDITIONAL INFORMATION---- Performed at the Point of Care pCO2, POCT 33 32 - 45 mm Hg 08/22/2023 7:14 AM CDT PCLX Comment: ----ADDITIONAL INFORMATION---- Performed at the Point of Care pO2, POCT 59(L) 83 - 108 mm Hg 08/22/2023 7:14 AM CDT PCLX Comment: ----ADDITIONAL INFORMATION---- Performed at the Point of Care Base, POCT -9(L) -2 - 3 mmol/L 08/22/2023 7:14 AM CDT P[facility] Comment: ----ADDITIONAL INFORMATION---- Performed at the Point of Care HCO3, POCT 17(L) 22 - 26 mmol/L 08/22/2023 7:14 AM CDT PCLX Comment: ----ADDITIONAL INFORMATION---- Performed at the Point of Care Sodium, POCT, B 135 135 - 145 mmol/L 08/22/2023 7:14 AM CDT PCLX Comment: ----ADDITIONAL INFORMATION---- Performed at the Point of Care Potassium, POCT, B 3.8 3.6 - 5.2 mmol/L 08/22/2023 7:14 AM CDT PCLX Comment: ----ADDITIONAL INFORMATION---- Performed at the Point of Care Calcium, Ionized, POCT, B 4.80 4.65 - 5.30 mg/dL 08/22/2023 7:14 AM CDT PCLX Comment: ----ADDITIONAL INFORMATION---- Performed at the Point of Care pH POCT 7.31(L) 7.35 - 7.45 08/22/2023 7:14 AM CDT PCLX Comment: ----ADDITIONAL INFORMATION---- Performed at the Point of Care Glucose, POCT, B 81 70 - 140 mg/dL 08/22/2023 7:14 AM CDT PCLX Comment: ----ADDITIONAL INFORMATION---- Performed at the Point of Care Hematocrit, POCT, B 23.0(L) 35.5 - 44.9 % 08/22/2023 7:14 AM CDT PCLX Comment: ----ADDITIONAL INFORMATION---- Performed at the Point of Care Blood 08/22/2023 6:40 AM CDT 08/22/2023 7:14 AM CDT Unknown Provider LAB POCT ORDERABLES - DEVICE [facility] [address] [place] [address], [place] PCLX [facility] [address] [place] [address] * Glucose, POCT (08/22/2023 6:23 AM CDT) [facility] Glucose, POCT, B 95 70 - 140 mg/dL 08/22/2023 6:48 AM CDT PCLX Site Capillary 08/22/2023 6:48 AM CDT PCLX Blood 08/22/2023 6:23 AM CDT 08/22/2023 6:48 AM CDT Unknown Provider LAB POCT ORDERABLES- MANUAL Performing Organization Address City/[facility]/ZIP Co de Phone Number [facility] [address] PCLX [facility] POC [address] [place] [address] * Lactate (08/22/2023 4:27 AM CDT) Lactate, P 0.5 0.5 - 2.2 mmol/L 08/22/2023 4:45 AM CDT STMA Blood (Blood, Venous) 08/22/2023 4:27 AM CDT 08/22/2023 4:33 AM CDT Migel Koch M.D. LAB BLOOD NON ADD-ON Performing Organization Address City/[facility]/ZIP Co de Phone Number [facility] [address] [place] [address], [facility] [address] [place] [address] * DX Chest Portable 1 View (08/22/2023 3:06 AM CDT) Anatomical Region Laterality Modality Chest, Thoracic RST LOS, Tho racic ARZ LOS, Thoracic FLA LOS N/A Digital Radiography Impressions 08/22/2023 6:57 AM CDT Moderate left pleural effusion, increased compared to 08/19/2023. Associated compressive atelectasis. No pneumothorax. Vascular calcifications. Boone device. Enlarged cardiac silhouette consistent with large pericardial effusion as seen on CT 08/19/2023. GI contrast in the left upper quadrant. Narrative 08/22/2023 6:57 AM CDT EXAM: ??DX CHEST PORTABLE 1 VIEW Procedure Note Bold, Vamshi Dominguez M.D. - 08/22/2023 EXAM: DX CHEST PORTABLE 1 VIEW IMPRESSION: Moderate left pleural effusion, increased compared to 08/19/2023.Associated compressive atelectasis. No pneumothorax. Vascularcalcifications. Boone device. Enlarged cardiac silhouette consistent withlarge pericardial effusion as seen on CT 08/19/2023. GI contrast in the left upper quadrant. Dean Crespo, M.S. IMG [facility] PROCEDURES * Patient Status (08/22/2023 3:00 AM CDT) Pathologist [facility] O2 Flow 6.0 L/min 08/22/2023 3:05 AM CDT STMA Device CFM 08/22/2023 3:05 AM CDT STMA Spont. breaths/min 17 08/22/2023 3:05 AM CDT STMA Blood 08/22/2023 3:00 AM CDT 08/22/2023 3:05 AM CDT Dean Crespo, M.S. LAB BLO OD NON ADD-ON [facility] [address] [place] [address], [facility] [address] [place] [address] * (ABNORMAL) Blood Gas with Coox, Venous (08/22/2023 3:00 AM CDT) pO2, Venous, B 40 Not applicable mm Hg 08/22/2023 3:07 AM CDT STMA pCO2, Venous, B 44 41 - 51 mm Hg 08/22/2023 3:07 AM CDT STMA pH, Venous, B 7.28(L) 7.32 - 7.43 pH 024 3:07 AM CDT STMA Base Excess, Venous, B -7 Not applicable mmol/L 08/22/2023 3:07 AM CDT STMA HCO3, Venous, B 20 Not applicable mmol/L 08/22/2023 3:07 AM CDT STMA Hemoglobin, Venous, B 7.8(L) 11.6 - 15.0 g/dL 08/22/2023 3:07 AM CDT STMA O2Hb, Venous, B 67.1 Not applicable % 08/22/2023 3:07 AM CDT STMA COHb, Venous, B 1.6 <3.0 % 08/22/2023 3:07 AM CDT STMA MetHb, Venous, B 1.5(H) <1.5 % 08/22/2023 3:07 AM CDT STMA CtO2, Venous, B 7.4 Not Applicable vol % 08/22/2023 3:07 AM CDT STMA Sample Site, Venous, B Venipunct 08/22/2023 3:05 AM CDT STMA Blood (Blood, Venous) 08/22/2023 3:00 AM CDT 08/22/2023 3:05 AM CDT Dean Ventura., M.S. LAB BLO OD NON ADD-ON [facility] [address] [place] [address], [facility] [address] [place] [address] * (ABNORMAL) Renal Function Panel (08/22/2023 2:59 AM CDT) [facility] Potassium, S 4.4 3.6 - 5.2 mmol/L 08/22/2023 3:44 AM CDT DTL Sodium, S 134(L) 135 - 145 mmol/L 08/22/2023 3:44 AM CDT DTL Chloride, S 101 98 - 107 mmol/L 08/22/2023 3:44 AM CDT DTL Bicarbonate, S 18(L) 22 - 29 mmol/L 08/22/2023 3:44 AM CDT DTL Anion Gap 15 7 - 15 08/22/2023 3:44 AM CDT DTL BUN (Blood Urea Nitrogen), S 44(H) 6 - 21 mg/dL 08/22/2023 3:44 AM CDT DTL Creatinine 2.08(H) 0.59 - 1.04 mg/dL 08/22/2023 3:44 AM CDT DTL Estimated GFR (eGFR) 25(L) >=60 mL/min/BSA 08/22/2023 3:44 AM CDT DTL Comment: Estimated GFR calculated using the 2020 CKD_EPI creatinine equation. Calcium, Total, S 8.1(L) 8.8 - 10.2 mg/dL 08/22/2023 3:44 AM CDT DTL Glucose, S 78 70 - 140 mg/dL 08/22/2023 3:44 AM CDT DTL Albumin, S 2.9(L) 3.5 - 5.0 g/dL 08/22/2023 3:44 AM CDT DTL Phosphorus (Inorganic), S 6.0(H) 2.5 - 4.5 mg/dL 08/22/2023 3:44 AM CDT DTL Blood (Blood, Venous) 08/22/2023 2:59 AM CDT 08/22/2023 3:30 AM CDT Dean Crespo, M.S. LAB BLO OD ADD-ON [place] [address] [place] [address], [facility] [address] [place] [address] * (ABNORMAL) Renal Function Panel (08/22/2023 2:59 AM CDT) Potassium, S 4.4 3.6 - 5.2 mmol/L 08/22/2023 3:58 AM CDT DTL Sodium, S 134(L) 135 - 145 mmol/L 08/22/2023 3:58 AM CDT DTL Chloride, S 101 98 - 107 mmol/L 08/22/2023 3:58 AM CDT DTL Bicarbonate, S 18(L) 22 - 29 mmol/L 08/22/2023 3:58 AM CDT DTL Anion Gap 15 7 - 15 08/22/2023 3:58 AM CDT DTL BUN (Blood Urea Nitrogen), S 43(H) 6 - 21 mg/dL 08/22/2023 3:58 AM CDT DTL Creatinine 2.07(H) 0.59 - 1.04 mg/dL 08/22/2023 3:58 AM CDT DTL Estimated GFR (eGFR) 25(L) >=60 mL/min/BSA 08/22/2023 3:58 AM CDT DTL Comment: Estimated GFR calculated using the 2020 CKD_EPI creatinine equation. Calcium, Total, S 8.1(L) 8.8 - 10.2 mg/dL 08/22/2023 3:58 AM CDT DTL Glucose, S 79 70 - 140 mg/dL 08/22/2023 3:58 AM CDT DTL Albumin, S 2.9(L) 3.5 - 5.0 g/dL 08/22/2023 3:58 AM CDT DTL Phosphorus (Inorganic), S 6.0(H) 2.5 - 4.5 mg/dL 08/22/2023 3:58 AM CDT DTL Blood (Blood, Venous) 08/22/2023 2:59 AM CDT 08/22/2023 3:29 AM CDT Patricia Sutton M.D. LAB BLOOD ADD-ON [place] [address] [place] [address], [facility] [address] [place] [address] * (ABNORMAL) CBC with Differential, Blood (08/22/2023 2:59 AM CDT) Hemoglobin 7.2(L) 11.6 - 15.0 g/dL 08/22/2023 3:27 AM CDT DTL Hematocrit 22.6(L) 35.5 - 44.9 % 08/22/2023 3:27 AM CDT DTL Erythrocytes 2.50(L) 3.92 - 5.13 x10(12)/L 08/22/2023 3:27 AM CDT DTL MCV 90.4 78.2 - 97.9 fL 08/22/2023 3:27 AM CDT DTL RBC Distrib Width 17.1(H) 12.2 - 16.1 % 08/22/2023 3:27 AM CDT DTL Platelet Count 259 157 - 371 x10(9)/L 08/22/2023 3:27 AM CDT DTL Leukocytes 13.4(H) 3.4 - 9.6 x10(9)/L 08/22/2023 3:27 AM CDT DTL Neutrophils 11.28(H) 1.56 - 6.45 x10(9)/L 08/22/2023 3:27 AM CDT DHPM Lymphocytes 0.80(L) 0.95 - 3.07 x10(9)/L 08/22/2023 3:27 AM CDT DTL Monocytes 1.28(H) 0.26 - 0.81 x10(9)/L 08/22/2023 3:27 AM CDT DTL Eosinophils <0.03 0.03 - 0.48 x10(9)/L 08/22/2023 3:27 AM CDT DTL Basophils <0.03 0.01 - 0.08 x10(9)/L 08/22/2023 3:27 AM CDT DTL Blood (Blood, Venous) 08/22/2023 2:59 AM CDT 08/22/2023 3:15 AM CDT Akshat Rhoades M.D. LAB BLOOD ADD-ON [facility] [address] [place] [address], [facility] DTL [facility] [address] [place] [address] DHPM [facility] [address] [place] [address] * Magnesium (08/22/2023 2:59 AM CDT) Magnesium, S 1.9 1.7 - 2.3 mg/dL 08/22/2023 3:58 AM CDT DTL Blood (Blood, Venous) 08/22/2023 2:59 AM CDT 08/22/2023 3:29 AM CDT David Joy M.D. LAB BLOOD ADD-ON [facility] [address] [place] [address], [facility] [address] [place] [address] * Vancomycin, Random (08/22/2023 2:59 AM CDT) Pathologist [facility] Vancomycin, Random, S 19.4 mcg/mL 08/22/2023 4:12 AM CDT DT Comment: ----REFERENCE VALUE---- Peak: 20.0 - 45.0 Trough: 10.0 - 20.0 Blood (Blood, Venous) 08/22/2023 2:59 AM CDT 08/22/2023 3:14 AM CDT Vamshi Vivas M.D. LAB BLOOD NON ADD -ON Performing Organization Address City/[facility]/ZIP Co de Phone Number [facility] [address] [place], [place] [id number] [place] [address] [address] [place] [address] * Potassium (08/22/2023 12:09 AM CDT) [facility] Potassium, S 4.7 3.6 - 5.2 mmol/L 08/22/2023 1:12 AM CDT DT Blood (Blood, Venous) 08/22/2023 12:09 AM CDT 08/22/2023 12:39 AM CDT Patricia Sutton M.D. LAB BLOOD ADD-ON [facility] [address] [place], [place] [id number] [place] [address] [address] [place] [address] * CMV DNA Detect / Quant, Plasma (08/21/2023 9:19 PM CDT) [facility] CMV DNA Detect/Quant, P Undetected Undetected IU/mL 08/22/2023 8:46 PM CDT [facility] Comment: Result in log IU/mL is Undetected. ----ADDITIONAL INFORMATION---- The quantification range of this assay is 35 to 10,000,000 IU/mL (1.54 log to 7.00 log IU/mL). Testing was performed using the elisabeth CMV test ([employer] Blood (Blood, Venous) 08/21/2023 9:19 PM CDT 08/22/2023 7:16 AM CDT Patricia Sutton M.D. LAB MICROBIOLOGY - B LOOD ORDERABLES Performing Organization Address [facility] Co de Phone Number [facility] [address] [place] [address] [facility] [address] [place] [address] [place] [address] * Potassium (08/21/2023 9:18 PM CDT) Pathologist [facility] Potassium, S 4.5 3.6 - 5.2 mmol/L 08/21/2023 10:15 PM CDT DTL Blood (Blood, Venous) 08/21/2023 9:18 PM CDT 08/21/2023 10:05 PM CDT Patricia Sutton M.D. LAB BLOOD ADD-ON Performing Organization Address [facility] Co de Phone Number [facility] [address] [place] [address], [facility] [address] [place] [address] * FL Fluoro Less Than 1 Hour (08/21/2023 3:45 PM CDT) Narrative ERCP LOS RST - 08/21/2023 3:49 PM CDT This exam does not require a radiologist review or interpretation. Please refer to the patient's medical record on this date for clinical details. David Joy M.D. IMG FLUOROSCOPY NE OCEDURES Performing Organization Address [facility] Co de Phone Number ERCP LOS RST * Non-Endoscopic Tube Procedure (08/21/2023 1:43 PM CDT) 08/21/2023 1:43 PM CDT Impressions [facility] - 08/21/2023 4:26 PM CDT Post-op Diagnoses: ? - The gastrostomy tube had been in place for an extended length of time ? and was removed and replaced with a 14 Fr Avanos ELDER gastrostomy tube as ? detailed. ? - No specimens collected. Narrative [facility] - 08/21/2023 4:26 PM CDT Andrew 6 GI GI Patient Name: Jacqueline Galvan Date of : 1955 Age: 68 Procedure Date: 08/21/2023 Procedure: ? Non-endoscopic Tube Procedure Providers: ? Torito Telles MD, KIRILL Haddad (Fellow) Referring Provider: ?David Joy Pre-op Diagnoses: ?Routine exchange PEG tube (balloon to balloon) Recommendation: ? - Perform an ERCP today. The patient may resume use of the gastrostomy ? tube immediately. Findings: ? Upon external examination, normal-appearing skin was found surrounding ? the stomal opening save for a small amount of granulation tissue which ? was not unexpected. The gastrostomy tube was patent. The gastrostomy ? tube had been in place for an extended length of time and required ? removal. The existing PEG site was cleaned. The existing PEG balloon was ? deflated and by using traction, removal was easily accomplished. A 14 Fr ? Avanos ELDER gastrostomy tube was lubricated and placed into the existing ? gastrostomy port. A total of 5 mL saline was used to distend the balloon ? that was previously tested. When positioned, the skin marking was noted ? to be 3.5 cm at the external bumper. The final tension and compression ? of the abdominal wall by the gastrostomy tube and external bumper were ? checked and revealed that the bumper was loose and lightly touching the ? skin. Placement into the stomach was later confirmed endoscopically and ? fluoroscopically during the subsequent ERCP. The tube was capped, and ? the tube site was cleaned and dressed. The small amount of granulation ? tissue was treated with silver nitrate cautery sticks. Of note, ERCP an ? endoscopy, which followed this non endoscopic tube change procedure, ? demonstrated the fixation balloon on the gastric luminal side of the ? gastrostomy tube to be intact, properly inflated, and in good position. Procedural Details: ? The patient was seen, evaluated, history reviewed, airway and heart-lung ? exams were performed by licensed provider and were satisfactory for ? planned level of sedation care. ? The risks, benefits and alternatives for the procedure and sedation were ? discussed and informed consent was obtained. A procedural pause was ? conducted in the presence of assisting personnel to verify the correct ? patient identity and procedure to be performed. Throughout the ? procedure, the patient's blood pressure, pulse, and oxygen saturations ? were monitored continuously. The procedure was accomplished without ? difficulty. The patient tolerated the procedure well. Estimated Blood Loss: ?Estimated blood loss: none. Complications: ? No immediate complications. Attending Participation: I was present and participated during the entire ? procedure, including non-desai portions. Torito Telles MD 08/21/2023 4:26:02 PM This report has been signed electronically. Number of Addenda: 0 Bee Bermudez M.D. GI PROCEDURE SHAQ JIN [facility] NA * ERCP (08/21/2023 1:17 PM CDT) 08/21/2023 1:17 PM CDT Impressions [facility] - 08/21/2023 4:21 PM CDT Post-op Diagnoses: ? - Multiple filling defects consistent with gallbladder stones were seen ? on the cholangiogram. No bile duct stones were seen. ? - A biliary sphincterotomy was performed. ? - The biliary tree was swept and nothing was found. ? - Wire access could not be obtained of the gallbladder due to a narrow ? caliber, long, and extremely convoluted cystic duct, as described in ? detail. A submucosal bleb was likely induced in the cystic duct by the ? 0.018 in wire during prolonged attempts to obtain transcystic access to ? the gallbladder. While the likelihood of a transmural wire puncture of ? the cystic duct appeared unlikely on occlusion cholangiogram, I decided ? to place a trans papillary stent for good measure. ? - One 10 Hungarian 5 cm temporary plastic biliary stent was placed into the ? common bile duct. Narrative [employer] - 08/21/2023 4:21 PM CDT Andrew 6 GI GI Patient Name: Jacqueline Galvan Date of : 1955 Age: 68 Procedure Date: 08/21/2023 Procedure: ? ERCP, sphincterotomy, balloon sweep, biliary stent ? placement Providers: ? Torito Telles MD, KIRILL Haddad (Fellow) Referring Provider: ?David Joy Pre-op Diagnoses: ?Acute cholecystitis, Chronic cholecystitis Recommendation: ? - Return patient to hospital alnge for ongoing care. ? - Consult interventional radiology for percutaneous gallbladder drain ? placement. ? - Undertake EGD with an ERCP-capable endoscopist within 3 months to ? remove the common bile duct stent. If the stent is allowed to dwell ? longer than 3 months, the risk of stent occlusion with rice ? precipitously, along with the risk of inducing cholangitis or biliary ? sepsis. The stent was placed only for the purpose of mitigating an ? unlikely wire puncture and small leak of the cystic duct. Any such leak ? would be highly likely to spontaneously seal over within 1 or 2 days. ? Therefore, the need for the stent should likely only span a few days. Findings: ? The esophagus was successfully intubated under direct vision. The scope ? was advanced to a normal major papilla in the descending duodenum ? without detailed examination of the pharynx, larynx and associated ? structures, and upper GI tract. The upper GI tract was grossly normal. A ? 0.035 inch angled Glidewire was passed into the biliary tree. The ? short-nosed traction sphincterotome was passed over the guidewire and ? the bile duct was then deeply cannulated. Contrast was injected. I ? personally interpreted the bile duct images. There was brisk flow of ? contrast through the ducts. Image quality was excellent. Contrast ? extended to the entire biliary tree. Opacification of the entire biliary ? tree was successful. No filling defects were seen in the bile duct. ? However, the gallbladder contained multiple cuboidal filling defects ? consistent with gallbladder stones. The cystic duct was very narrow in ? caliber and extremely convoluted. A 7 mm biliary sphincterotomy was made ? with a monofilament traction (standard) sphincterotome using [employer] ? electrocautery. There was no post-sphincterotomy bleeding. I initially ? attempted to navigate a 0.035 in angled Glidewire through the long, ? narrow, convoluted cystic duct, but this guidewire was unable to ? navigate the convoluted portion of the cystic duct more than 4 cm ? upstream from the cystic insertion to the common duct. I therefore ? decided to switch out to a narrow gauge guidewire. An 0.018 inch, ? 70-degree angled Glidewire was utilized through the balloon catheter. I ? work with this guidewire for proximally 45 minutes, but was not ? successful in traversing the entire cystic duct to the gallbladder. At ? one point, I felt that a submucosal bleb had been induced on the medial ? side wall of the cystic duct. This did not appear to be a free flowing ? wire puncture. I tried for a prolonged time, spinning and guarding the ? wire to see if I could obtain access to the gallbladder lumen, but was ? ultimately unsuccessful in doing so. To discover objects, the biliary ? tree was swept with an 11.5 mm balloon starting at the bifurcation. ? Nothing was found. I decided to place a trans papillary stent in the ? unlikely event that an actual wire puncture of the cystic duct had been ? induced. One 10 Fr by 5 cm temporary plastic biliary stent with a single ? external flap and a single internal flap was placed into the common bile ? duct. Bile flowed through the stent. The stent was in good position. Procedural Details: ? The patient was seen, evaluated, history reviewed, airway and heart-lung ? exams were performed by licensed provider and were satisfactory for ? planned level of sedation care. ? The risks, benefits and alternatives for the procedure and sedation were ? discussed and informed consent was obtained. A procedural pause was ? conducted in the presence of assisting personnel to verify the correct ? patient identity and procedure to be performed. Throughout the ? procedure, the patient's blood pressure, pulse, and oxygen saturations ? were monitored continuously. The Duodenoscope was introduced under ? direct vision through the mouth, and used to inject contrast into the ? bile duct. The ERCP was technically difficult and complex. Successful ? completion of the procedure was aided by performing the maneuvers ? documented (below) in this report. The patient tolerated the procedure ? well. Estimated Blood Loss: ?Estimated blood loss: none. Complications: ? No immediate complications. Sedation: ? Anesthesia was administered by an anesthesia professional. The following ? parameters were monitored: oxygen saturation, heart rate, blood ? pressure, respiratory rate, EKG, adequacy of pulmonary ventilation, and ? response to care. Attending Participation: I was present and participated during the entire ? procedure, including non-desai portions. Torito Telles MD 08/21/2023 4:20:54 PM This report has been signed electronically. Number of Addenda: 0 David Joy M.D. GI PROCEDURE ORDER LILIAM Performing Organization Address City/[facility]/ZIP Co de Phone Number [facility] * Potassium (08/21/2023 1:08 PM CDT) Potassium, P 4.3 3.6 - 5.2 mmol/L 08/21/2023 1:27 PM CDT [facility] Blood (Blood, Venous) 08/21/2023 1:08 PM CDT 08/21/2023 1:16 PM CDT Ariel Karimi M.D. 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 Narrative 08/21/2023 9:52 AM CDT EXAM: US KIDNEY TRANSPLANT LEFT WITH DOPPLER Exam performed with color and spectral Doppler analysis. COMPARISON: Renal transplant ultrasound 06/19/2023. FINDINGS: Transplant date: 06/21/2016 Location: Left lower quadrant. Dinero scale data Transplant renal length: 10.3 cm. Parenchymal echogenicity: Stable mild increased renal parenchymal echogenicity and cortical thinning. Renal mass: None detected. Hydronephrosis: None. Peritransplant fluid collection: None. Doppler data Intrarenal RI: 0.73 RI upper 0.74 RI mid 0.73 RI lower Iliac artery velocity: 133 cm/s (above anastomosis) 132 cm/s (near anastomosis) Renal artery velocity: 128 cm/s anast 76 cm/s prox (anastomosis) 62 cm/s mid 44 cm/s distal Renal to iliac artery velocity ratio (RIR): 0.9 Renal artery: Normal. Renal vein patency: Patent. Ipsilateral common femoral artery: Patent. Normal triphasic waveform. Additional comments: Severe plaque within the left common femoral artery with occlusion of the proximal superficial femoral artery consistent with findings seen on CTA from 05/08/2023. Procedure Note Sanket Soares M.D. - 08/21/2023 EXAM: US KIDNEY TRANSPLANT LEFT WITH DOPPLER Exam performed with color and spectral Doppler analysis. COMPARISON: Renal transplant ultrasound 06/19/2023. FINDINGS: Transplant date: 06/21/2016 Location: Left lower quadrant. Dinero scale data Transplant renal length: 10.3 cm. Parenchymal echogenicity: Stable mild increased renal parenchymalechogenicity and cortical thinning. Renal mass: None detected. Hydronephrosis: None. Peritransplant fluid collection: None. Doppler data Intrarenal RI: 0.73 RI upper 0.74 RI mid 0.73 RI lower Iliac artery velocity: 133 cm/s (above anastomosis) 132 cm/s (near anastomosis) Renal artery velocity: 128 cm/s anast 76 cm/s prox (anastomosis) 62 cm/s mid 44 cm/s distal Renal to iliac artery velocity ratio (RIR): 0.9 Renal artery: Normal. Renal vein patency: Patent. Ipsilateral common femoral artery: Patent. Normal triphasic waveform. Additional comments: Severe plaque within the left common femoral arterywith occlusion of the proximal superficial femoral artery consistent withfindings seen on CTA from 05/08/2023. IMPRESSION: Stable appearance of the left lower quadrant renal transplant with widelypatent vasculature. Akshat Rhoades M.D. IMG US PROCEDURES * Tacrolimus, Trough (08/21/2023 7:42 AM CDT) Tacrolimus, Trough 12.5 5.0-15.0 (Trough) ng/mL 08/21/2023 12:58 PM CDT [facility] Comment: ----ADDITIONAL INFORMATION---- Target steady-state trough concentrations vary depending on the type of transplant, concomitant immunosuppression, clinical/institutional protocols, and time post-transplant. Results should be interpreted in conjunction with this clinical information and any physical signs/symptoms of rejection/toxicity. Testing performed by Liquid Chromatography-Tandem Mass Spectrometry (LC-MS/MS). This test was developed and its performance characteristics determined by [facility] in a manner consistent with CLIA requirements. This test has not been cleared or approved by the U.S. Food and Drug Administration. Blood (Blood, Venous) 08/21/2023 7:42 AM CDT 08/21/2023 10:11 AM CDT Akshat Rhoades M.D. LAB BLOOD NON ADD -ON [facility] [place] [address] [place] [address] [facility] [address] [place] [address] [place] [address] * Interpretation of Outside US Abdomen and or Pelvis (08/21/2023 6:25 AM CDT) Anatomical Region Laterality Modality Ultrasound RST LOS, Ultrasou nd ARZ LOS, Ultrasound FLA LOS, Abdomen, Other, Pelvis N/A Ultrasound Impressions 08/21/2023 2:46 PM CDT 1. Sonographic findings (see report for details) that are compatible with early acute cholecystitis in the appropriate clinical setting; however, recommend clinical correlation. If indicated, consider repeat [facility] gallbladder ultrasound and/or nuclear medicine HIDA scan for further assessment. 2. Extrahepatic duct measures minimally prominent for patient age with evidence of tapering distally. No intrahepatic biliary ductal dilatation. Findings were discussed with Dr. Bee Bermudez ??([id number]) at 08/21/2023 1:11 PM. Narrative 08/21/2023 2:46 PM CDT EXAM: ??INTERPRETATION OF OUTSIDE US ABDOMEN AND OR PELVIS Outside limited abdominal ultrasound 08/20/2023 COMPARISON: ??Outside CT abdomen and pelvis 08/19/[address] [facility] [address] abdomen and pelvis 06/22/2023 FINDINGS: Gallbladder: Cholelithiasis (as also seen on noncontrast CT 06/22/2023). Gallbladder wall thickness measures upper normal/borderline thickened at 3 mm. A positive sonographic Isaac's sign is noted in the collections attorney's notation and included with the original interpretation of this exam. Gallbladder is well-distended. Trace amount of pericholecystic edema and/or fluid. Intrahepatic ducts: Not dilated. Common duct: Extrahepatic duct measures minimally prominent for patient age at 7.5 mm in caliber with evidence of tapering distally. Procedure Note Singh Christensen M.D. - 08/21/2023 EXAM: INTERPRETATION OF OUTSIDE US ABDOMEN AND OR PELVIS Outside limitedabdominal ultrasound 08/20/2023 COMPARISON: Outside CT abdomen and pelvis 08/19/2023 and [facility] CTabdomen and pelvis 06/22/2023 FINDINGS: Gallbladder: Cholelithiasis (as also seen on noncontrast CT 06/22/2023).Gallbladder wall thickness measures upper normal/borderline thickened at 3mm. A positive sonographic Isaac's sign is noted in the collections attorney'snotation and included with the original interpretation of this exam. Gallbladder is well-distended. Traceamount of pericholecystic edema and/or fluid. Intrahepatic ducts: Not dilated. Common duct: Extrahepatic duct measures minimally prominent for patientage at 7.5 mm in caliber with evidence of tapering distally. IMPRESSION: 1. Sonographic findings (see report for details) that are compatible withearly acute cholecystitis in the appropriate clinical setting; however,recommend clinical correlation. If indicated, [facility]/or nuclear medicine HIDA scan for further assessment. 2. Extrahepatic duct measures minimally prominent for patient age withevidence of tapering distally. No intrahepatic biliary ductaldilatation. Findings were discussed with Dr. Bee Bermudez ([id number]) at 08/21/2023 1:11PM. Dean Crespo, M.S. IMG US PROCEDURES * Interpretation of Outside CT Abdomen and or Pelvis (08/21/2023 6:25 AM CDT) Anatomical Region Laterality Modality Abdomen, Pelvis, Abdominal R ST LOS, Abdominal ARZ LOS, Abdominal FLA LOS, Other N/A Computed Tomography Impressions 08/21/2023 12:57 PM CDT 1. Cholelithiasis. The gallbladder is distended. Although there is no definite gallbladder wall thickening, right upper quadrant ultrasound may be helpful to evaluate for acute cholecystitis. Mild central intrahepatic and extrahepatic biliary duct dilatation could also be evaluated on right upper quadrant ultrasound. 2. ??Left lower quadrant renal allograft. 3. Marked calcific atherosclerotic disease throughout the abdomen and pelvis and an abdominal aortic aneurysm measuring 5.0 cm in maximal AP diameter. 4. New large pericardial effusion. Small amount of ascites has almost completely resolved. Small bilateral pleural effusions have improved. Diffuse anasarca has improved. Narrative 08/21/2023 12:57 PM CDT EXAM: ??INTERPRETATION OF OUTSIDE CT ABDOMEN AND OR PELVIS with IV contrast 08/19/2023. COMPARISON: Outside noncontrast CT 06/22/2023. FINDINGS: ?? Near complete interval resolution of the previously seen small amount of ascites. Cholelithiasis. The gallbladder is distended, but there is no definite gallbladder wall thickening. Mild extrahepatic and central intrahepatic biliary duct dilatation with the common bile duct measuring 9 mm in diameter. No obstructing radiopaque stone or mass is identified. Markedly atrophic [place] kidneys and a renal allograft in the left lower quadrant. There is also an atrophic nonfunctioning renal allograft in the right lower quadrant. Colonic diverticulosis without evidence for diverticulitis. Marked arteriovascular calcifications in the abdomen and pelvis. Abdominal aortic aneurysm, which measures 5.0 cm in maximal AP diameter and contains mural thrombus (series [id number], image 64). Percutaneous gastrostomy tube. New large pericardial effusion. Marked coronary artery, aortic valve and mitral annular calcifications. Cardiomegaly. Small bilateral pleural effusions have improved significantly. Improved atelectasis in both lung bases. Mild compression of the superior endplates of T11 and L1. Improved diffuse anasarca. Procedure Note Nikolas Rivera M.D. - 08/21/2023 EXAM: INTERPRETATION OF OUTSIDE CT ABDOMEN AND OR PELVIS with IV contrast08/19/2023. COMPARISON: Outside noncontrast CT 06/22/2023. FINDINGS: Near complete interval resolution of the previously seen small amount ofascites. Cholelithiasis. The gallbladder is distended, but there is nodefinite gallbladder wall thickening. Mild extrahepatic and centralintrahepatic biliary duct dilatation with the common bile duct measuring 9 mm in diameter. No obstructing radiopaquestone or mass is identified. Markedly atrophic [place] kidneys and a renal allograft in the left lowerquadrant. There is also an atrophic nonfunctioning renal allograft in theright lower quadrant. Colonic diverticulosis without evidence fordiverticulitis. Marked arteriovascular calcifications in the abdomen and pelvis. Abdominal aortic aneurysm, whichmeasures 5.0 cm in maximal AP diameter and contains mural thrombus ([id number], image 64). Percutaneous gastrostomy tube. New large pericardial effusion. Marked coronary artery, aortic valve andmitral annular calcifications. Cardiomegaly. Small bilateral pleuraleffusions have improved significantly. Improved atelectasis in both lungbases. Mild compression of the superior endplates of T11 and L1. Improved diffuse anasarca. IMPRESSION: 1. Cholelithiasis. The gallbladder is distended. Although there is nodefinite gallbladder wall thickening, right upper quadrant ultrasound maybe helpful to evaluate for acute cholecystitis. Mild central intrahepaticand extrahepatic biliary duct dilatation could also be evaluated on right upper quadrant ultrasound. 2. Left lower quadrant renal allograft. 3. Marked calcific atherosclerotic disease throughout the abdomen andpelvis and an abdominal aortic aneurysm measuring 5.0 cm in maximal APdiameter. 4. New large pericardial effusion. Small amount of ascites has almostcompletely resolved. Small bilateral pleural effusions have improved.Diffuse anasarca has improved. Dean Ventura., M.S. IMG CT PROCEDURES * Dipstick, Urine (08/21/2023 4:10 AM CDT) Hemoglobin, QL, U Negative Negative 08/21/2023 4:53 AM CDT DTL Leukocyte Esterase, U Negative Negative 08/21/2023 4:53 AM CDT DTL Nitrite, U Negative Negative 08/21/2023 4:53 AM CDT DTL Ketone, U Negative Negative mg/dL 08/21/2023 4:53 AM CDT DTL Glucose, U Negative Negative mg/dL 08/21/2023 4:53 AM CDT DT Urine 08/21/2023 4:10 AM CDT 08/21/2023 4:49 AM CDT Akshat Rhoades M.D. LAB URINE ORDERAB LES [facility] [address] [place] [address] * Osmolality, Urine (08/21/2023 4:10 AM CDT) Osmolality, U 322 150 - 1150 mOsm/kg 08/21/2023 5:01 AM CDT [facility] Urine 08/21/2023 4:10 AM CDT 08/21/2023 4:49 AM CDT Akshat Rhoades M.D. LAB URINE ORDERAB LES Performing Organization Address City/[facility] Co de Phone Number [facility] [address] [place], [place] [id number] [place] [address] [address] [place] [address] * (ABNORMAL) pH, Random, Urine (08/21/2023 4:10 AM CDT) pH, Random, U 4.3(L) 4.5 - 8.0 08/21/2023 5:01 AM CDT DT Urine 08/21/2023 4:10 AM CDT 08/21/2023 4:49 AM CDT Akshat Rhoades M.D. LAB URINE ORDERAB LES Performing Organization Address City/[facility]/ZIP Co de Phone Number [facility] [address] [place] [address] * Microscopic Manual (08/21/2023 4:10 AM CDT) Microscopy Normal 08/21/2023 5:18 AM CDT DTL RBC None Seen <3 /hpf 08/21/2023 5:18 AM CDT DTL WBC None Seen /hpf 08/21/2023 5:18 AM CDT DTL Comment: ----REFERENCE VALUE---- <4 ??(Males) <11 (Females) Crystals Calcium Oxalate crystals present 08/21/2023 5:18 AM CDT DTL Urine 08/21/2023 4:10 AM CDT 08/21/2023 4:49 AM CDT Akshat Rhoades M.D. LAB URINE ORDERAB LES [facility] [address] [place] [address], [facility] DTL [address] [address] * (ABNORMAL) Urinalysis, with Microscopic: Urine, Midstream (08/21/2023 4:10 AM CDT) Source Urine, Urine, Midstream 08/21/2023 4:49 AM CDT DTL Color, U Yellow 08/21/2023 4:49 AM CDT DTL Clarity, U Clear 08/21/2023 4:49 AM CDT DTL Protein, U 11 <26 mg/dL 08/21/2023 5:19 AM CDT DTL Protein/Osmol ality 0.34 <0.42 ratio 08/21/2023 5:19 AM CDT DTL Predicted 24 HR Protein, U 252(H) <229 mg/24 h 08/21/2023 5:19 AM CDT DTL Predicted Range 62-1021 mg/24 h 08/21/2023 5:19 AM CDT DTL Comment Micro done on <10 mL 08/21/2023 5:18 AM CDT DTL Urine (Urine, Midstream) 08/21/2023 4:10 AM CDT 08/21/2023 4:49 AM CDT Akshat Rhoades M.D. LAB URINE ORDERAB LES [facility] [address] [place] [address], [facility] DTL [facility] [address] [place] [address] * (ABNORMAL) Renal Function Panel (08/21/2023 3:55 AM CDT) Potassium, S 5.6(H) 3.6 - 5.2 mmol/L 08/21/2023 4:45 AM CDT DTL Sodium, S 133(L) 135 - 145 mmol/L 08/21/2023 4:45 AM CDT DTL Chloride, S 102 98 - 107 mmol/L 08/21/2023 4:45 AM CDT DTL Bicarbonate, S 17(L) 22 - 29 mmol/L 08/21/2023 4:45 AM CDT DTL Anion Gap 14 7 - 15 08/21/2023 4:45 AM CDT DTL BUN (Blood Urea Nitrogen), S 41(H) 6 - 21 mg/dL 08/21/2023 4:45 AM CDT DTL Creatinine 1.92(H) 0.59 - 1.04 mg/dL 08/21/2023 4:45 AM CDT DTL Estimated GFR (eGFR) 28(L) >=60 mL/min/BSA 08/21/2023 4:45 AM CDT DTL Comment: Estimated GFR calculated using the 2020 CKD_EPI creatinine equation. Calcium, Total, S 8.9 8.8 - 10.2 mg/dL 08/21/2023 4:45 AM CDT DTL Glucose, S 169(H) 70 - 140 mg/dL 08/21/2023 4:45 AM CDT DTL Albumin, S 3.1(L) 3.5 - 5.0 g/dL 08/21/2023 4:45 AM CDT DTL Phosphorus (Inorganic), S 7.1(H) 2.5 - 4.5 mg/dL 08/21/2023 5:37 AM CDT DTL Blood (Blood, Venous) 08/21/2023 3:55 AM CDT 08/21/2023 4:20 AM CDT Akshat Rhoades M.D. LAB BLOOD ADD-ON Performing Organization Address [facility] Co de Phone Number [facility] [address] [place], [place] [address] [address] [address] * (ABNORMAL) Cystatin C with Estimated GFR (08/21/2023 3:55 AM CDT) eGFR by Cystatin C 15(L) >60 mL/min/BSA 08/21/2023 4:40 AM CDT DTL Comment: Estimated GFR calculated [...] lower with the new assay. Cystatin C 3.11(H) 0.67 - 1.21 mg/L 08/21/2023 4:40 AM CDT DTL Blood (Blood, Venous) 08/21/2023 3:55 AM CDT 08/21/2023 4:20 AM CDT Akshat Rhoades M.D. LAB BLOOD ADD-ON Performing Organization Address City/[facility]/ZIP Co de Phone Number [facility] [address] [place] [address], [facility] [address] [place] [address] * (ABNORMAL) CBC with Differential, Blood (08/21/2023 3:55 AM CDT) Hemoglobin 8.6(L) 11.6 - 15.0 g/dL 08/21/2023 4:29 AM CDT DTL Hematocrit 26.8(L) 35.5 - 44.9 % 08/21/2023 4:29 AM CDT DTL Erythrocytes 2.91(L) 3.92 - 5.13 x10(12)/L 08/21/2023 4:29 AM CDT DTL MCV 92.1 78.2 - 97.9 fL 08/21/2023 4:29 AM CDT DTL RBC Distrib Width 17.4(H) 12.2 - 16.1 % 08/21/2023 4:29 AM CDT DTL Platelet Count 265 157 - 371 x10(9)/L 08/21/2023 4:29 AM CDT DTL Leukocytes 16.2(H) 3.4 - 9.6 x10(9)/L 08/21/2023 4:29 AM CDT DTL Neutrophils 14.30(H) 1.56 - 6.45 x10(9)/L 08/21/2023 4:29 AM CDT DHPM Lymphocytes 0.47(L) 0.95 - 3.07 x10(9)/L 08/21/2023 4:29 AM CDT DTL Monocytes 1.36(H) 0.26 - 0.81 x10(9)/L 08/21/2023 4:29 AM CDT DTL Eosinophils <0.03 0.03 - 0.48 x10(9)/L 08/21/2023 4:29 AM CDT DTL Basophils <0.03 0.01 - 0.08 x10(9)/L 08/21/2023 4:29 AM CDT DTL Blood (Blood, Venous) 08/21/2023 3:55 AM CDT 08/21/2023 4:11 AM CDT Akshat Rhoades M.D. LAB BLOOD ADD-ON [facility] [address] [place] [address], [place] DTL [facility] [address] [place] [address] [facility] [address] [place] [address] * (ABNORMAL) Potassium (08/21/2023 1:51 AM CDT) Potassium, S 5.6(H) 3.6 - 5.2 mmol/L 08/21/2023 2:31 AM CDT DT Blood (Blood, Venous) 08/21/2023 1:51 AM CDT 08/21/2023 2:23 AM CDT Akshat Rhoades M.D. LAB BLOOD ADD-ON [facility] [address] [place] [address] * (ABNORMAL) Potassium (08/20/2023 10:53 PM CDT) Potassium, S 5.7(H) 3.6 - 5.2 mmol/L 08/20/2023 11:33 PM CDT DTL Blood (Blood, Venous) 08/20/2023 10:53 PM CDT 08/20/2023 11:23 PM CDT Akshat Rhoades M.D. LAB BLOOD ADD-ON Performing Organization Address City/[facility]/ZIP Co de Phone Number [facility] [address] [place] [address] * (ABNORMAL) Glucose, POCT (08/20/2023 10:35 PM CDT) Glucose, POCT, B 174(H) 70 - 140 mg/dL 08/20/2023 10:36 PM CDT PCLX Site Capillary 08/20/2023 10:36 PM CDT PCLX Last Intake 1-2 hours 08/20/2023 10:36 PM CDT PCLX Blood 08/20/2023 10:3 5 PM CDT 08/20/2023 10:36 PM CDT Unknown Provider LAB POCT ORDERABLES- MANUAL POC [facility] [address] PCLX [facility] POC [address] [place] [address] * ECG 12 Lead (08/20/2023 10:25 PM CDT) Ventricular Rate ECG/Min 57 BPM MUSE NE Interval 150 ms MUSE QRSD Interval 86 ms MUSE QT Interval 458 ms MUSE QTC Interval 445 ms MUSE P [place] 36 degrees MUSE R [place] 23 degrees MUSE T Wave [place] 70 degrees MUSE 08/20/2023 10:2 5 PM CDT 08/20/2023 10:45 PM CDT Impressions MUSE - 08/20/2023 10:45 PM CDT Sinus bradycardia Low anterior forces Nonspecific ST and T wave abnormality When compared with ECG of 19-Jun-2023 04:01, No significant change was found Reviewed by ANA Jason Narrative Procedure Note Sadiq Park M.D. - 08/20/2023 IMPRESSION: Sinus bradycardia Low anterior forces Nonspecific ST and T wave abnormality When compared with ECG of 19-Jun-2023 04:01, No significant change was found Reviewed by ANA Jason Akshat Rhoades M.D. ECG ORDERABLES Performing Organization Address City/[facility]/ZIP Co de Phone Number MUSE NA * Bacteria / Sandi Culture, Blood #2 (08/20/2023 9:08 PM CDT) Bacteria/Marcia da Culture, Blood No growth after 5 days of incubation. 08/25/2023 10:02 PM CDT DTL Blood (Blood, Peripheral Draw) 08/20/2023 9:08 PM CDT 08/20/2023 9:26 PM CDT Comment:Specimen Source Site : Blood Narrative [facility] - 08/25/2023 10:02 PM CDT Received Bactec aerobic and Bactec anaerobic bottles Dean eVntura., M.S. LAB ELDER ROBIOLOGY - GENERAL ORDERABLES [facility] [address], [place] [address] DTL [facility] [address] [place] [address] * Lactate for Sepsis with Reflex (08/20/2023 8:57 PM CDT) Pathologist [facility] Lactate, P 1.4 0.5 - 2.2 mmol/L 08/20/2023 9:33 PM CDT [facility] (Blood, Venous) 08/20/2023 8:57 PM CDT 08/20/2023 9:16 PM CDT Dean Crespo, M.S. LAB BLO OD NON ADD-ON Performing Organization Address City/[facility]/ZIP Co de Phone Number [facility] [address], [place] [phone] [place] [address] [address] [place] [address] * (ABNORMAL) Prothrombin Time (PT) (08/20/2023 8:57 PM CDT) Prothrombin Time, P 18.1(H) 9.4 - 12.5 sec 08/20/2023 9:46 PM CDT [facility] 1.6 0.9 - 1.1 08/20/2023 9:46 PM CDT [facility] Comment: ----ADDITIONAL INFORMATION---- Standard intensity warfarin therapeutic range: 2.0 to 3.0 ?? High intensity warfarin therapeutic range: 2.5 to 3.5 Blood (Blood, Venous) 08/20/2023 8:57 PM CDT 08/20/2023 9:16 PM CDT Dean Ventura., M.S. LAB BLO OD ADD-ON [facility] [address] [place] [address], [facility] [address] [place] [address] * (ABNORMAL) Renal Function Panel (08/20/2023 8:57 PM CDT) Potassium, S 5.7(H) 3.6 - 5.2 mmol/L 08/20/2023 9:57 PM CDT DTL Sodium, S 135 135 - 145 mmol/L 08/20/2023 9:57 PM CDT DTL Chloride, S 102 98 - 107 mmol/L 08/20/2023 9:57 PM CDT DTL Bicarbonate, S 18(L) 22 - 29 mmol/L 08/20/2023 9:57 PM CDT DTL Anion Gap 15 7 - 15 08/20/2023 9:57 PM CDT DTL BUN (Blood Urea Nitrogen), S 38(H) 6 - 21 mg/dL 08/20/2023 9:57 PM CDT DTL Creatinine 1.88(H) 0.59 - 1.04 mg/dL 08/20/2023 9:57 PM CDT DTL Estimated GFR (eGFR) 29(L) >=60 mL/min/BSA 08/20/2023 9:57 PM CDT DTL Comment: Estimated GFR calculated using the 2020 CKD_EPI creatinine equation. Calcium, Total, S 8.7(L) 8.8 - 10.2 mg/dL 08/20/2023 9:57 PM CDT DTL Glucose, S 157(H) 70 - 140 mg/dL 08/20/2023 9:57 PM CDT DTL Albumin, S 3.3(L) 3.5 - 5.0 g/dL 08/20/2023 9:57 PM CDT DTL Phosphorus (Inorganic), S 7.0(H) 2.5 - 4.5 mg/dL 08/20/2023 10:39 PM CDT DTL Blood (Blood, Venous) 08/20/2023 8:57 PM CDT 08/20/2023 9:41 PM CDT Dean Crespo, M.S. LAB BLO OD ADD-ON [facility] [address] [place] [address], [facility] DTL [facility] [address] [place] [address] * (ABNORMAL) Hepatic Function Panel (08/20/2023 8:57 PM CDT) [facility] Bilirubin, Total, S 0.5 0.0 - 1.2 mg/dL 08/20/2023 9:57 PM CDT DTL Bilirubin, Direct, S 0.3 0.0 - 0.3 mg/dL 08/20/2023 9:57 PM CDT DTL Aspartate Aminotransferase (AST), S 22 8 - 43 U/L 08/20/2023 9:57 PM CDT DTL Alanine Aminotransferase (ALT), S 31 7 - 45 U/L 08/20/2023 9:57 PM CDT DTL Alkaline Phosphatase, S 147(H) 35 - 104 U/L 08/20/2023 9:57 PM CDT DTL Albumin, S 3.3(L) 3.5 - 5.0 g/dL 08/20/2023 9:57 PM CDT DTL Protein, Total, S 6.3 6.3 - 7.9 g/dL 08/20/2023 9:57 PM CDT DTL Blood (Blood, Venous) 08/20/2023 8:57 PM CDT 08/20/2023 9:41 PM CDT Dean Ventura., M.S. LAB BLO OD ADD-ON [facility] [address] [place] [address], [facility] [address] [place] [address] * (ABNORMAL) CBC with Differential, Blood (08/20/2023 8:57 PM CDT) [facility] Hemoglobin 9.2(L) 11.6 - 15.0 g/dL 08/20/2023 9:22 PM CDT [facility] Hematocrit 29.7(L) 35.5 - 44.9 % 08/20/2023 9:22 PM CDT [facility] Erythrocytes 3.23(L) 3.92 - 5.13 x10(12)/L 08/20/2023 9:22 PM CDT [facility] MCV 92.0 78.2 - 97.9 fL 08/20/2023 9:22 PM CDT [facility] RBC Distrib Width 17.6(H) 12.2 - 16.1 % 08/20/2023 9:22 PM CDT [facility] Platelet Count 273 157 - 371 x10(9)/L 08/20/2023 9:22 PM CDT [facility] Leukocytes 16.9(H) 3.4 - 9.6 x10(9)/L 08/20/2023 9:22 PM CDT [facility] Neutrophils 15.29(H) 1.56 - 6.45 x10(9)/L 08/20/2023 9:22 PM CDT PM Lymphocytes 0.45(L) 0.95 - 3.07 x10(9)/L 08/20/2023 9:22 PM CDT [facility] Monocytes 1.08(H) 0.26 - 0.81 x10(9)/L 08/20/2023 9:22 PM CDT [facility] Eosinophils <0.03 0.03 - 0.48 x10(9)/L 08/20/2023 9:22 PM CDT [facility] Basophils 0.03 0.01 - 0.08 x10(9)/L 08/20/2023 9:22 PM CDT [facility] Blood (Blood, Venous) 08/20/2023 8:57 PM CDT 08/20/2023 9:16 PM CDT Dean YehS., M.S. LAB BLO OD ADD-ON [facility] [address] [place] [address], [facility] STMA [facility] [address] [place] [address] [facility] [address] [place] [address] * Bacteria / Sandi Culture, Blood #1 (08/20/2023 8:56 PM CDT) [facility] Bacteria/Marcia da Culture, Blood No growth after 5 days of incubation. 08/25/2023 10:02 PM CDT DTL Blood (Blood, Peripheral Draw) 08/20/2023 8:56 PM CDT 08/20/2023 9:25 PM CDT Comment:Specimen Source Site : Blood Dean Crespo, M.S. LAB ELDER ROBIOLOGY - GENERAL ORDERABLES Performing Organization Address [facility] Co de Phone Number [facility] [address], [place] [phone] [place] [address] * (ABNORMAL) NT-Pro B-Type Natriuretic Peptide (BNP) (08/20/2023 8:46 PM CDT) [facility] NT-Pro BNP 7340(H) <=540 pg/mL 08/20/2023 11:43 PM CDT DTL Comment: NT-proBNP values less [...] absence of renal failure. Blood (Blood, Venous) 08/20/2023 8:46 PM CDT 08/20/2023 11:10 PM CDT Dean Crespo, M.S. 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) Medication Therapy Shelter Not Anticoagulant Acute Respiratory Failure With Hypoxia (HCC) Cholecystitis Immunodeficiency Due To Drugs (HCC) Malnutrition Severe Protein-Calorie (HCC) Transplant Renal (HCC) Hyperkalemia documented in this encounter Admitting Diagnoses Diagnosis Cholecystitis documented in this encounter Administered Medications Inactive Administered Medications - up to 3 most recent administrations Medication Order MAR Action Action Date Dose Rate Site acetaminophen tablet 500 mg (TYLENOL) 500 mg, oral, 4 times daily, First dose on Sat08/21/23 at 0800, Not to exceed 4 grams of acetaminophen in 24 hours all sources Given 08/30/2023 1:08 PM CDT 500 mg Given 08/30/2023 9:27 AM CDT 500 mg Given 08/29/2023 10:08 PM CDT 500 mg albumin human 25 % injection 25 g 25 g, intravenous, Once, On Idania 08/22/23 at 0745, For 1 dose, If no infusion rate specified: Administer the 25% solution at 100 mL/hr New Bag 08/22/2023 8:12 AM CDT 25 g albuterol 2.5 mg/0.5 mL nebulizer solution 15 mg 15 mg, nebulization, Once, On Sat08/20/23 at 2230, For 1 dose Given 08/20/2023 10:38 PM CDT 15 mg albuterol 2.5 mg/0.5 mL nebulizer solution 15 mg 15 mg, nebulization, Once, On Sat08/21/23 at 0730, For 1 dose Given 08/21/2023 9:33 AM CDT 15 mg amiodarone tablet 200 mg (PACERONE) 200 mg, oral, Daily, First dose on Sat08/30/23 at 0900 Given 08/30/2023 9:38 AM CDT 200 mg amiodarone tablet 400 mg (PACERONE) 400 mg, oral, 3 times daily, First dose on Sat08/23/23 at 1545, For 10 days Given 08/24/2023 8:13 AM CDT 400 mg Given 08/23/2023 8:17 PM CDT 400 mg Given 08/23/2023 3:41 PM CDT 400 mg amiodarone tablet 400 mg (PACERONE) 400 mg, oral, 3 times daily, First dose (after last modification) on Sat08/24/23 at 1400, For 17 doses Given 08/29/2023 10:08 PM CDT 400 mg Given 08/29/2023 2:25 PM CDT 400 mg Given 08/29/2023 8:19 AM CDT 400 mg amLODIPine tablet 10 mg (NORVASC) 10 mg, oral, Daily, First dose (after last modification) on Sat08/28/23 at 0900 Given 08/30/2023 9:29 AM CDT 10 mg Given 08/29/2023 8:19 AM CDT 10 mg apixaban tablet 2.5 mg (ELIQUIS) 2.5 mg, oral, 2 times daily, First dose on Sat08/26/23 at 2100 Given 08/27/2023 8:06 PM CDT 2.5 mg Given 08/27/2023 9:58 AM CDT 2.5 mg Given 08/26/2023 8:42 PM CDT 2.5 mg aspirin chewable tablet 81 mg 81 mg, gastric tube, Daily, First dose on Sat08/21/23 at 0900 Given 08/21/2023 9:29 AM CDT 81 mg aspirin chewable tablet 81 mg 81 mg, oral, Daily, First dose (after last modification) on Sat08/22/23 at 0900 Given 08/26/2023 8:25 AM CDT 81 mg Given 08/25/2023 8:45 AM CDT 81 mg Given 08/24/2023 8:14 AM CDT 81 mg atorvastatin tablet 80 mg (LIPITOR) 80 mg, oral, Daily at bedtime, First dose (after last modification) on Sat08/21/23 at 2100 Given 08/29/2023 10:08 PM CDT 80 mg Given 08/28/2023 8:33 PM CDT 80 mg Given 08/27/2023 8:06 PM CDT 80 mg benzocaine-menthoL 15-3.6 mg per lozenge 1 lozenge (CEPACOL) 1 lozenge, oral, As needed, sore throat, Starting on Sat08/22/23 at 0201 Given 08/22/2023 2:34 AM CDT 1 lozenge bumetanide tablet 2 mg (BUMEX) 2 mg, oral, 2 times daily, First dose on Sat08/27/23 at 1700 Given 08/29/2023 4:20 PM CDT 2 mg Given 08/29/2023 8:21 AM CDT 2 mg Given 08/28/2023 4:35 PM CDT 2 mg bumetanide tablet 2 mg (BUMEX) 2 mg, oral, Once, On Sat08/29/23 at 1200, For 1 dose Given 08/29/2023 12:00 PM CDT 2 mg bumetanide tablet 2 mg (BUMEX) 2 mg, oral, Once, On Sat08/29/23 at 1700, For 1 dose Given 08/29/2023 5:18 PM CDT 2 mg bumetanide tablet 4 mg (BUMEX) 4 mg, oral, 2 times daily, First dose (after last modification) on Sat08/30/23 at 0900 Given 08/30/2023 5:18 PM CDT 4 mg Given 08/30/2023 9:27 AM CDT 4 mg calcium gluc in NaCl, iso osm IVPB 2 g 2 g, intravenous, at 400 mL/hr, Administer over 15 Minutes, Once, On Sat08/20/23 at 2230, For 1 dose, For peripheral IV administration (avoid antecubital fossa, dorsum of hand or wrist if possible). MD musical performer to directly observe IV site for possible extravasation for the duration of infusion. New Bag 08/20/2023 10:37 PM CDT 2 g 400 mL/h r chlorothiazide 500 mg in NaCl 0.9% IVPB (DIURIL) 500 mg, intravenous, at 200 mL/hr, Administer over 15 Minutes, Once, On Sat08/24/23 at 1815, For 1 dose, Mini-Bag Plus bag New Bag 08/24/2023 6:29 PM CDT 500 mg 200 mL/hr cholecalciferol (vitamin D3) tablet 25 mcg 25 mcg, oral, Daily, First dose on Sat08/21/23 at 0900, cholecalciferol (vitamin D3) orderable was interchanged for cholecalciferol (vitamin D3) tablet/capsule Given 08/30/2023 12:02 PM CDT 25 mcg Given 08/29/2023 8:21 AM CDT 25 mcg Given 08/27/2023 9:58 AM CDT 25 mcg D10W bolus 125 mL 125 mL (12.5 g), intravenous, at 500 mL/hr, Administer over 15 Minutes, As needed, low blood sugar, For glucose 54-70 mg/dL, Starting on Sat08/22/23 at 0825, If the patient has intravenous access available, is not able to take oral feeding safely, does not have a functioning gastrointestinal tract or feeding tube, or is NPO, administer D50W intravenously. D10W bolus 250 mL 250 mL (25 g), intravenous, at 1,000 mL/hr, Administer over 15 Minutes, As needed, low blood sugar, For glucose less than 54 mg/dL, Starting on Sat08/22/23 at 0825, If intravenous access is available, administer D50W intravenously dextrose 40 % gel 15 g (GLUTOSE) 15 g, oral, As needed, low blood sugar, For glucose 54-70 mg/dL, Starting on Sat08/22/23 at 0825, If patient is conscious and able to swallow safely and has a fuctioning gastrointestinal tract or on Acarbose (Precose??) or Miglitol (Glyset??). May use tablets or gel. diphenoxylate-atropine 2.5-0.025 mg/5 mL liquid 10 mL (LOMOTIL) 10 mL, oral, 4 times daily PRN, diarrhea, Starting on Sat08/21/23 at 1526, 5 mL=1 LOMOTIL tablet. Given 08/26/2023 12:22 PM CDT 10 mL Given 08/26/2023 10:35 AM CDT 10 mL furosemide injection 100 mg (LASIX) 100 mg, intravenous, Once, On Sat08/20/23 at 2230, For 1 dose, Adults: Doses less than 120 mg: IV push over 20 mg/minute. Doses 120 mg or greater: IVPB at 4 mg/minute. Peds/Neonates: Doses less than 120 mg over 0.5 mg/kg/minute. Doses 120 mg or greater: IVPB at 4 mg/minute. Given 08/20/2023 10:36 PM CDT 100 mg furosemide injection 100 mg (LASIX) 100 mg, intravenous, Once, On Sat08/22/23 at 0415, For 1 dose, Adults: Doses less than 120 mg: IV push over 20 mg/minute. Doses 120 mg or greater: IVPB at 4 mg/minute. Peds/Neonates: Doses less than 120 mg over 0.5 mg/kg/minute. Doses 120 mg or greater: IVPB at 4 mg/minute. Given 08/22/2023 4:15 AM CDT 100 mg furosemide injection 100 mg (LASIX) 100 mg, intravenous, Once, On Idania 08/22/23 at 0845, For 1 dose, Adults: Doses less than 120 mg: IV push over 20 mg/minute. Doses 120 mg or greater: IVPB at 4 mg/minute. Peds/Neonates: Doses less than 120 mg over 0.5 mg/kg/minute. Doses 120 mg or greater: IVPB at 4 mg/minute. Given 08/22/2023 8:46 AM CDT 100 mg furosemide injection 100 mg (LASIX) 100 mg, intravenous, Once, On 08/23/23 at 1800, For 1 dose, Adults: Doses less than 120 mg: IV push over 20 mg/minute. Doses 120 mg or greater: IVPB at 4 mg/minute. Peds/Neonates: Doses less than 120 mg over 0.5 mg/kg/minute. Doses 120 mg or greater: IVPB at 4 mg/minute. Given 08/23/2023 5:57 PM CDT 100 mg furosemide injection 100 mg (LASIX) 100 mg, intravenous, Once, On 08/24/23 at 0845, For 1 dose, Adults: Doses less than 120 mg: IV push over 20 mg/minute. Doses 120 mg or greater: IVPB at 4 mg/minute. Peds/Neonates: Doses less than 120 mg over 0.5 mg/kg/minute. Doses 120 mg or greater: IVPB at 4 mg/minute. Given 08/24/2023 9:45 AM CDT 100 mg furosemide injection 100 mg (LASIX) 100 mg, intravenous, Once, On 08/24/23 at 1815, For 1 dose, Adults: Doses less than 120 mg: IV push over 20 mg/minute. Doses 120 mg or greater: IVPB at 4 mg/minute. Peds/Neonates: Doses less than 120 mg over 0.5 mg/kg/minute. Doses 120 mg or greater: IVPB at 4 mg/minute. Given 08/24/2023 7:18 PM CDT 100 mg furosemide injection 100 mg (LASIX) 100 mg, intravenous, Once, On Sat08/25/23 at 0845, For 1 dose, Adults: Doses less than 120 mg: IV push over 20 mg/minute. Doses 120 mg or greater: IVPB at 4 mg/minute. Peds/Neonates: Doses less than 120 mg over 0.5 mg/kg/minute. Doses 120 mg or greater: IVPB at 4 mg/minute. Given 08/25/2023 8:42 AM CDT 100 mg glucose chewable tablet 16 g 16 g, oral, As needed, low blood sugar, For glucose 54-70 mg/dL, Starting on Idania 08/22/23 at 0825, If patient is conscious and able to swallow safely and has a functioning gastrointestinal tract or on Acarbose (Precose??) or Miglitol (Glyset??). Administer 4 tablets to total 16 grams. May use tablets or gel. heparin (porcine) injection 5,000 Units 5,000 Units, subcutaneous, Every 12 hours scheduled, First dose on Sat08/23/23 at 1445 Given 08/26/2023 8:26 AM CDT 5,000 Units Right Lower Abdomen Given 08/25/2023 9:01 PM CDT 5,000 Units R ight Upper Arm (Back) Given 08/25/2023 8:37 AM CDT 5,000 Units L eft Lower Abdomen iohexoL 300 mg iodine/mL solution (OMNIPAQUE) As needed, Starting on Sat08/22/23 at 1717, Intra-Op Given 08/22/2023 5:17 PM CDT 20 mL ipratropium-albuteroL 0.5-2.5 mg/3 mL nebulizer solution 3 mL (DUONEB) 3 mL, nebulization, Every 6 hours PRN, wheezing, shortness of breath, Starting on Sat08/20/23 at 2056 Given 08/22/2023 2:34 AM CDT 3 mL Lactated Ringer's bolus 500 mL 500 mL, intravenous, at 500 mL/hr, Administer over 1 Hours, Once, On Sat08/21/23 at 1800, For 1 dose New Bag 08/21/2023 5:35 PM CDT 500 mL 500 mL/hr Lactated Ringer's 75 mL/hr, intravenous, Continuous, Starting on Sat08/22/23 at 0000, For 12 hours Restarted 08/22/2023 12:24 AM CDT 75 mL/hr 75 mL/hr lidocaine-sodium bicarbonate (buffered) 0.9%-0.84% injection infiltration, As needed, Starting on Sat08/22/23 at 1717, Intra-Op Given 08/22/2023 5:17 PM CDT 9 mL abonmv-mdzppgvj-kqazdzw 36,000-114,000-180,[address] capsule 36,000 Units of lipase (CREON) 36,000 Units of lipase, oral, Every 4 hours, First dose on Sat08/23/23 at 1600, CREON 36,000 lipase units were interchanged for lipase content greater than 25,000 units oral per capsule or tablet at the same frequency. Do NOT crush or chew. Capsule may be opened and the contents taken without crushing or chewing. Given 08/26/2023 12:22 PM CDT 36,000 Units of lipase Given 08/26/2023 8:26 AM CDT 36,000 Units of lipase Given 08/26/2023 4:14 AM CDT 36,000 Units of lipase fgekhg-hyykyrem-srezmly 36,000-114,000-180,[address] capsule 36,000 Units of lipase (CREON) 36,000 Units of lipase, oral, 3 times daily with meals, First dose (after last modification) on Sat08/26/23 at 1700, CREON 36,000 lipase units were interchanged for lipase content greater than 25,000 units oral per capsule or tablet at the same frequency. Do NOT crush or chew. Capsule may be opened and the contents taken without crushing or chewing. Given 08/30/2023 5:18 PM CDT 36,000 Units of lipase Given 08/30/2023 9:32 AM CDT 36,000 Units of lipase Given 08/29/2023 5:17 PM CDT 36,000 Units of lipase magnesium sulfate in water 2 gram/50 mL (4 %) IVPB - ADS Override Pull Starting on Sat08/22/23 at 2204, For 1 dose, Created by cabinet override magnesium sulfate in water IVPB 2 g 2 g, intravenous, at 25 mL/hr, Administer over 120 Minutes, Once, On Sat08/22/23 at 1000, For 1 dose, Over 2 hours. New Bag 08/22/2023 10:08 AM CDT 2 g 25 mL/hr magnesium sulfate in water IVPB 2 g 2 g, intravenous, at 25 mL/hr, Administer over 120 Minutes, Once, On Idania 08/22/23 at 2215, For 1 dose, Over 2 hours. New Bag 08/22/2023 10:09 PM CDT 2 g 25 mL/hr meropenem 500 mg in NaCl 0.9% IVPB (MERREM) 500 mg, intravenous, at 100 mL/hr, Administer over 30 Minutes, Every 12 hours, First dose on Sat08/21/23 at 1000, Mini-Bag Plus bag, Restriction Criteria (Pharmacy will review and approve if criteria met): Gram negative organism resistant to other options, Drug Monitoring Program: Pharmacist to adjust medication dosing based on indication and drug clearance factors., Indications: Intra-abdominal infection, community acquired New Bag 08/22/2023 10:07 PM CDT 500 mg 100 mL/hr New Bag 08/22/2023 12:04 PM CDT 500 mg 100 mL/hr New Bag 08/21/2023 10:04 PM CDT 500 mg 100 mL/hr meropenem 500 mg in NaCl 0.9% IVPB (MERREM) 500 mg, intravenous, at 100 mL/hr, Administer over 30 Minutes, Every 12 hours, First dose (after last modification) on Sat08/23/23 at 1000, For 5 days, Mini-Bag Plus bag, Restriction Criteria (Pharmacy will review and approve if criteria met): Gram negative organism resistant to other options, Drug Monitoring Program: Pharmacist to adjust medication dosing based on indication and drug clearance factors., Indications: Intra-abdominal infection, community acquired New Bag 08/27/2023 9:05 PM CDT 500 mg 100 mL/hr New Bag 08/27/2023 10:07 AM CDT 500 mg 100 mL/hr New Bag 08/26/2023 10:16 PM CDT 500 mg 100 mL/hr metoclopramide injection 5 mg (REGLAN) 5 mg, intravenous, Once, On Sat08/27/23 at 1215, For 1 dose Given 08/27/2023 11:56 AM CDT 5 mg metoclopramide injection 5 mg (REGLAN) 5 mg, intravenous, Once, On Sat08/28/23 at 1015, For 1 dose Given 08/28/2023 9:56 AM CDT 5 mg metoclopramide injection 5 mg (REGLAN) 5 mg, intravenous, Every 6 hours PRN, nausea, vomiting, Starting on Sat08/28/23 at 1521, SECOND line for nausea intractable to zofran multivitamin renal failure 100-1 mg 1 tablet (DIALYVITE) 1 tablet, oral, Daily with evening meal, First dose on Sat08/26/23 at 1700, give after dialysis on dialysis days Given 08/26/2023 5:24 PM CDT 1 tablet hxltbqpvxnlu-mbhg-XV-Ca-minerals 400 mcg (folic acid) tablet 1 tablet (THERAPEUTIC-M) 1 tablet, oral, Daily, First dose on Sat08/21/23 at 0900 Given 08/26/2023 8:26 AM CDT 1 tablet Given 08/25/2023 8:45 AM CDT 1 tablet Given 08/24/2023 9:48 AM CDT 1 tablet fakuuvnrxeyd-ibrh-WI-Ca-minerals 400 mcg (folic acid) tablet 1 tablet (THERAPEUTIC-M) 1 tablet, oral, Daily, First dose on Sat08/28/23 at 0900 Given 08/30/2023 9:27 AM CDT 1 tablet Given 08/29/2023 8:21 AM CDT 1 tablet Given 08/28/2023 9:30 AM CDT 1 tablet mycophenolate capsule 500 mg (CELLCEPT) 500 mg, oral, Daily at bedtime, First dose (after last modification) on Sat08/20/23 at 2245, Swallow whole. Do NOT crush, chew or open capsule., Continuation of uacjm-fj-whcxvrqmm therapy? Yes Given 08/20/2023 10:37 PM CDT 500 mg NaCl 0.9 % bolus 500 mL 500 mL, intravenous, at 500 mL/hr, Administer over 1 Hours, Once, On Sat08/21/23 at 1115, For 1 dose New Bag 08/21/2023 12:14 PM CDT 500 mL 500 mL/hr nystatin 100,000 unit/gram powder 1 Application (NYSTOP) 1 Application, topical, 2 times daily, First dose on Sat08/21/23 at 2100, To bilateral groin and breast skin folds Given 08/26/2023 8:39 AM CDT 1 Application Given 08/25/2023 9:02 PM CDT 1 Application Given 08/25/2023 8:46 AM CDT 1 Application ondansetron (PF) injection 4 mg (ZOFRAN) 4 mg, intravenous, Once, On Sat08/28/23 at 1400, For 1 dose Given 08/28/2023 1:51 PM CDT 4 mg ondansetron (PF) injection 4 mg (ZOFRAN) 4 mg, intravenous, Every 6 hours PRN, nausea, vomiting, Starting on Sat08/28/23 at 1539 Given 08/29/2023 10:54 AM CDT 4 mg ondansetron ODT disintegrating tablet 4 mg (ZOFRAN-ODT) 4 mg, oral, Every 6 hours PRN, nausea, vomiting, Starting on Sat08/20/23 at 2356, When splitting ODT at bedside, handle with gloves and a pill splitter to prevent moisture contact. Given 08/27/2023 11:49 AM CDT 4 mg Given 08/27/2023 3:05 AM CDT 4 mg Given 08/26/2023 10:35 AM CDT [address] tablet 40 mg (PROTONIX) 40 mg, oral, Daily before morning meal, First dose on Sat08/21/23 at 0700, For 332 days, Swallow whole. Do NOT crush, chew, or split tablet. Given 08/27/2023 6:54 AM CDT 40 mg Given 08/26/2023 6:51 AM CDT 40 mg Given 08/25/2023 7:34 AM CDT [address] tablet 40 mg (PROTONIX) 40 mg, oral, 2 times daily before morning and evening meals, First dose on Sat08/30/23 at 0845, Swallow whole. Do NOT crush, chew, or split tablet. Given 08/30/2023 5:18 PM CDT 40 mg Given 08/30/2023 9:27 AM CDT 40 mg pantoprazole injection 40 mg (PROTONIX) 40 mg, intravenous, Every 12 hours scheduled, First dose on Sat08/28/23 at 1100, Administer IV push over 2 minutes. Add 10 mL NS to 40 mg vial for a final concentration of 4 mg/mL. Given 08/29/2023 10:08 PM CDT 40 mg Given 08/29/2023 8:21 AM CDT 40 mg Given 08/28/2023 8:34 PM CDT 40 mg piperacillin-tazobactam in dextrose (iso osm) IVPB 2.25 g (ZOSYN) 2.25 g, intravenous, at 100 mL/hr, Administer over 0.5 Hours, Every 8 hours, First dose on Sat08/20/23 at 2230, Drug Monitoring Program: Pharmacist to adjust medication dosing based on indication and drug clearance factors., Indications: Intra-abdominal infection, community acquired New Bag 08/20/2023 11:41 PM CDT 2.25 g 100 mL/hr predniSONE tablet 5 mg (DELTASONE) 5 mg, oral, Daily, First dose on Sat08/21/23 at 0900 Given 08/30/2023 9:29 AM CDT 5 mg Given 08/29/2023 8:21 AM CDT 5 mg Given 08/27/2023 9:59 AM CDT 5 mg selenium tablet 150 mcg 150 mcg, oral, Daily, First dose on Sat08/27/23 at 0900 Given 08/30/2023 9:27 AM CDT 150 mcg Given 08/29/2023 8:19 AM CDT 150 mcg Given 08/27/2023 9:57 AM CDT 150 mcg sennosides-docusate sodium 8.6-50 mg per tablet 1 tablet (SENOKOT-S) 1 tablet, oral, 2 times daily, First dose on Sat08/30/23 at 0900 sertraline tablet 25 mg (ZOLOFT) 25 mg, oral, Daily, First dose on Sat08/21/23 at 0900 Given 08/29/2023 8:21 AM CDT 25 mg Given 08/27/2023 10:22 AM CDT 25 mg Given 08/26/2023 8:25 AM CDT 25 mg sincalide injection 0.9 mcg (KINEVAC) 0.9 mcg, intravenous, Once, On Sat08/22/23 at 1500, For 1 dose, Imaging Protocol Orders Given 08/22/2023 1:50 PM CDT 0.9 mcg sodium phosphate 15 mmol in NaCl 0.9% IVPB 15 mmol, intravenous, at 47.7 mL/hr, Administer over 2.2 Hours, Once, On Sat08/26/23 at 1145, For 1 dose, Administer at 6.8 mmoL phosphate/hr. Max rate of 15 mmoL phosphate/hr. New Bag 08/26/2023 1:56 PM CDT 15 mmol 47.7 mL/hr sodium zirconium cyclosilicate 5 gram packet 5 g (LOKELMA) 5 g, gastric tube, Once, On Sat08/21/23 at 1100, For 1 dose, Empty packet into glass containing at least 3 tablespoons water, stir well and drink immediately. If powder remains in glass, add water, stir and drink immediately. Repeat if necessary., Restriction Criteria (Pharmacy will review and approve if criteria met): Nephrology or Cardiology recommended for an FDA approved indication, Authorizing provider? Dr. fischer Given 08/21/2023 11:25 AM CDT 5 g tacrolimus capsule 0.5 mg (PROGRAF) 0.5 mg, oral, 2 times daily - immunosuppression, First dose on Sat08/24/23 at 1999 Given 08/26/2023 8:24 AM CDT 0.5 mg Given 08/25/2023 7:51 PM CDT 0.5 mg Given 08/25/2023 7:34 AM CDT 0.5 mg tacrolimus capsule 0.5 mg (PROGRAF) 0.5 mg, oral, Daily AM - immunosuppression, First dose (after last modification) on Tu08/27/23 at 0800 Given 08/27/2023 9:59 AM CDT 0.5 mg tacrolimus capsule 0.5 mg (PROGRAF) 0.5 mg, sublingual, 2 times daily - immunosuppression, First dose on Sat08/30/23 at 1999 tacrolimus capsule 1 mg (PROGRAF) 1 mg, oral, Daily PM - immunosuppression, First dose on Sat08/26/23 at 1999 Given 08/27/2023 8:06 PM CDT 1 mg Given 08/26/2023 8:42 PM CDT 1 mg tacrolimus capsule 1.5 mg (PROGRAF) 1.5 mg, oral, 2 times daily - immunosuppression, First dose (after last reorder) on Idania 08/22/23 at 0800 Given 08/23/2023 10:39 AM CDT 1.5 mg Given 08/22/2023 8:03 PM CDT 1.5 mg tacrolimus granules for suspension 0.4 mg (PROGRAF) 0.4 mg, gastric tube, Daily PM - immunosuppression, First dose on Sat08/20/23 at 2230, Place entire contents of packet(s) in medicine cup, check for remaining granules in packet and empty these into cup, add 15-30 mL water, mix and administer via syringe or cup; rinse container with additional water and re-administer to ensure all particles given. Given 08/20/2023 10:37 PM CDT 0.4 mg tacrolimus granules for suspension 0.6 mg (PROGRAF) 0.6 mg, gastric tube, 2 times daily - immunosuppression, First dose on Sat08/28/23 at 2000, Place entire contents of packet(s) in medicine cup, check for remaining granules in packet and empty these into cup, add 15-30 mL water, mix and administer via syringe or cup; rinse container with additional water and re-administer to ensure all particles given. Given 08/30/2023 9:32 AM CDT 0.6 mg Given 08/29/2023 7:52 PM CDT 0.6 mg Given 08/29/2023 8:21 AM CDT 0.6 mg tacrolimus granules for suspension 0.6 mg (PROGRAF) 0.6 mg, gastric tube, Once, On Sat08/28/23 at 1430, For 1 dose, Place entire contents of packet(s) in medicine cup, check for remaining granules in packet and empty these into cup, add 15-30 mL water, mix and administer via syringe or cup; rinse container with additional water and re-administer to ensure all particles given. Given 08/28/2023 3:15 PM CDT 0.6 mg tacrolimus granules for suspension 2 mg (PROGRAF) 2 mg, gastric tube, 2 times daily - immunosuppression, First dose on Sat08/20/23 at 2230, Place entire contents of packet(s) in medicine cup, check for remaining granules in packet and empty these into cup, add 15-30 mL water, mix and administer via syringe or cup; rinse container with additional water and re-administer to ensure all particles given. Given 08/21/2023 9:31 AM CDT 2 mg Given 08/20/2023 11:06 PM CDT 2 mg technetium Tc 99m mebrofenin (Tc-99m CHOLETEC) 3.6-7.7 millicurie, intravenous, Once, On Sat08/22/23 at 1500, For 1 dose, Imaging Protocol Orders Given 08/22/2023 2:36 PM CDT 6.5 millicurie s thiamine injection 100 mg (VITAMIN B1) 100 mg, intravenous, Daily, First dose on Sat08/23/23 at 1345, For 5 days Given 08/27/2023 10:07 AM CDT 100 mg Given 08/26/2023 8:27 AM CDT 100 mg Given 08/25/2023 8:42 AM CDT 100 mg torsemide tablet 100 mg (DEMADEX) 100 mg, oral, Daily, First dose on Sat08/21/23 at 0900, On hold since Sat08/22/2023 at 0828 until manually unheld Given 08/21/2023 9:28 AM CDT 100 mg torsemide tablet 100 mg (DEMADEX) 100 mg, oral, Daily, First dose on Sat08/26/23 at 1045 Given 08/27/2023 9:58 AM CDT 100 mg Given 08/26/2023 10:56 AM CDT 100 mg vancomycin in NaCl 0.9 % IVPB 1,000 mg 1,000 mg, intravenous, at 200 mL/hr, Administer over 60 Minutes, Once, On Sat08/21/23 at 0945, For 1 dose, Drug Monitoring Program: Pharmacist to adjust medication dosing based on indication and drug clearance factors., Indications: Intra-abdominal infection, community acquired New Bag 08/21/2023 10:29 AM CDT 1,000 mg 200 mL/hr zinc sulfate capsule 220 mg (ZINCATE) 220 mg, oral, Daily with morning meal, First dose on Sat08/27/23 at 0800, Doses listed in zinc sulfate. Each 220 mg of zinc sulfate contains 50 mg of elemental zinc. Given 08/29/2023 8:21 AM CDT 220 mg Given 08/27/2023 9:58 AM CDT 220 mg zinc sulfate capsule 220 mg (ZINCATE) 220 mg, oral, 2 times daily with meals, First dose (after last modification) on Sat08/29/23 at 1700, Doses listed in zinc sulfate. Each 220 mg of zinc sulfate contains 50 mg of elemental zinc. Given 08/30/2023 5:18 PM CDT 220 mg Given 08/30/2023 9:27 AM CDT 220 mg Given 08/29/2023 4:20 PM CDT 220 mg documented in this encounter Active and Recently Administered Medications Times are shown in CDT. Scheduled Medication Order 08/28/2023 08/29/2023 08/30/2023 acetaminophen tablet 500 mg (TYLENOL) 500 mg, oral, 4 times daily, First dose on Sat08/21/23 at 0800, Not to exceed 4 grams of acetaminophen in 24 hours all sources 0930 (Not Given - Provider: Rita Campos R.N. - Reason: Patient/family refused)1124 (Not Given - Provider: Rita Campos R.N. - Reason: Patient/family refused)1634 (Given - Provider: Gita Arceo R.N.)2034 (Given - Provider: Gita Arceo R.N.) 0821 (Given - Provider: Rita Campos R.N.)1159 (Given - Provider: Rita Campos R.N.)1621 (Given - Provider: Santos Rick REdison)2208 (Given - Provider: Sarah Ugarte REdison) 0927 (Given - Provider: Neto aGrcia R.N.)1308 (Given - Provider: Neto Garcia R.N.)1718 (Not Given - Provider: Carolyn Vasquez, R.N. - Reason: Patient/family refused) amiodarone tablet 200 mg (PACERONE)(Linked Group 1) 200 mg, oral, Daily, First dose on Sat08/30/23 at 0900 0938 (Given - Provider: Neto Garcia R.N. - Comment: medication new dose of 200mg) amiodarone tablet 400 mg (PACERONE) ()(Linked Group 1) 400 mg, oral, 3 times daily, First dose (after last modification) on Sat08/24/23 at 1400, For 17 doses 0929 (Not Given - Provider: Rita Campos R.N. - Reason: Patient/family refused)1448 (Given - Provider: Catherine Kimbrough R.N.)3 (Given - Provider: Gita Arceo R.N.) 0819 (Given - Provider: Rita Campos R.N.)1425 (Given - Provider: Catherine Kimbrough R.N.)2208 (Given - Provider: Sarah Ugarte R.N.) amLODIPine tablet 10 mg (NORVASC) 10 mg, oral, Daily, First dose (after last modification) on Sat08/28/23 at 0900 0930 (Not Given - Provider: Rita Campos R.N. - Reason: Patient/family refused) 0819 (Given - Provider: Rita Campos R.N.) 0929 (Given - Provider: Neto Garcia R.N.) atorvastatin tablet 80 mg (LIPITOR) 80 mg, oral, Daily at bedtime, First dose (after last modification) on Sat08/21/23 at 2100 2032 (Given - Provider: Gita Arceo R.N.) 2208 (Given - Provider: Sarah Ugarte R.N.) bumetanide tablet 2 mg (BUMEX) (CANCELED) 2 mg, oral, 2 times daily, First dose on Sat08/27/23 at 1700 0930 (Not Given - Provider: Rita Campos R.N. - Reason: Patient/family refused)1635 (Given - Provider: Gita Arceo R.N.) 0821 (Given - Provider: Rita Campos R.N.)1620 (Given - Provider: Santos Rick R.N.) bumetanide tablet 2 mg (BUMEX) (COMPLETED) 2 mg, oral, Once, On Sat08/29/23 at 1200, For 1 dose 1200 (Given - Provider: Rita Campos R.N.) bumetanide tablet 2 mg (BUMEX) (COMPLETED) 2 mg, oral, Once, On Sat08/29/23 at 1700, For 1 dose 1718 (Given - Provider: Santos Rick R.N.) bumetanide tablet 4 mg (BUMEX) 4 mg, oral, 2 times daily, First dose (after last modification) on Sat08/30/23 at 0900 0927 (Given - Provider: Neto Garcia R.N.)1718 (Given - Provider: Carolyn Vasquez, R.N.) cholecalciferol (vitamin D3) tablet 25 mcg 25 mcg, oral, Daily, First dose on Sat08/21/23 at 0900, cholecalciferol (vitamin D3) orderable was interchanged for cholecalciferol (vitamin D3) tablet/capsule 0931 (Not Given - Provider: Rita Campos R.N. - Reason: Patient/family refused) 0821 (Given - Provider: Rita Campos R.N.) 1202 (Given - Provider: Neto Garcia R.N.) imimum-kgohwyia-izuyxuz 36,000-114,000-180,[address] capsule 36,000 Units of lipase (CREON) 36,000 Units of lipase, oral, 3 times daily with meals, First dose (after last modification) on Sat08/26/23 at 1700, CREON 36,000 lipase units were interchanged for lipase content greater than 25,000 units oral per capsule or tablet at the same frequency. Do NOT crush or chew. Capsule may be opened and the contents taken without crushing or chewing. 0932 (Not Given - Provider: Rita Campos R.N. - Reason: Other - Comment: pt refused breakfast)1124 (Not Given - Provider: Rita Campos R.NMarlys - Reason: Patient/family refused)1635 (Given - Provider: Gita Arceo REdison) 0821 (Given - Provider: Rita Campos R.N.)1200 (Given - Provider: Rita Campos R.NMarlys)1717 (Given - Provider: Santos Rick RMarlysNMarlys) 0932 (Given - Provider: Neto Garcia R.N.)1216 (Not Given - Provider: Neto Garcia R.N. - Reason: Order parameters not met - Comment: npo)1718 (Given - Provider: Rhoda VasquezAlberto.Israel, R.N.) metoclopramide injection 5 mg (REGLAN) (COMPLETED) 5 mg, intravenous, Once, On Sat08/28/23 at 1015, For 1 dose 0956 (Given - Provider: Rita Campos R.N.) hgwtrwukjpgh-uwkd-WQ-Ca-m inerals 400 mcg (folic acid) tablet 1 tablet (THERAPEUTIC-M) 1 tablet, oral, Daily, First dose on Sat08/28/23 at 0900 0930 (Given - Provider: Rita Campos R.N.) 08 (Given - Provider: Rita Campos R.N.) 09 (Given - Provider: Neto Garcia R.N.) ondansetron (PF) injection 4 mg (ZOFRAN) (COMPLETED) 4 mg, intravenous, Once, On Sat08/28/23 at 1400, For 1 dose 1351 (Given - Provider: Catherine Kimbrough R.N.) pantoprazole DR tablet 40 mg (PROTONIX) 40 mg, oral, 2 times daily before morning and evening meals, First dose on Sat08/30/23 at 0845, Swallow whole. Do NOT crush, chew, or split tablet. 09 (Given - Provider: Neto Garcia R.N.)1718 (Given - Provider: Adri Vasquez.Alberto.N., R.N.) pantoprazole injection 40 mg (PROTONIX) (CANCELED) 40 mg, intravenous, Every 12 hours scheduled, First dose on Sat08/28/23 at 1100, Administer IV push over 2 minutes. Add 10 mL NS to 40 mg vial for a final concentration of 4 mg/mL. 1129 (Given - Provider: Rita Campos R.N.)4 (Given - Provider: Gita Arceo R.N.) 08 (Given - Provider: Rita Campos R.N.)2207 (Given - Provider: Sarah Ugarte RMarlysNMarlys) predniSONE tablet 5 mg (DELTASONE) 5 mg, oral, Daily, First dose on Sat08/21/23 at 0900 0930 (Not Given - Provider: Rita Campos R.N. - Reason: Patient/family refused) 820 (Given - Provider: Rita Campos R.N.) 928 (Given - Provider: Neto Garcia R.N.) selenium tablet 150 mcg 150 mcg, oral, Daily, First dose on Sat08/27/23 at 0900 0929 (Not Given - Provider: Rita Campos R.N. - Reason: Patient/family refused) 818 (Given - Provider: Rita Campos R.N.) 926 (Given - Provider: Neto Garcia R.N.) sennosides-docusate sodium 8.6-50 mg per tablet 1 tablet (SENOKOT-S) 1 tablet, oral, 2 times daily, First dose on Sat08/30/23 at 0900 0927 (Not Given - Provider: Neto Garcia R.N. - Reason: Patient/family refused) sertraline tablet 25 mg (ZOLOFT) 25 mg, oral, Daily, First dose on Sat08/21/23 at 0900 0929 (Not Given - Provider: Rita Campos R.N. - Reason: Patient/family refused) 820 (Given - Provider: Rita Campos R.N.) 926 (Not Given - Provider: Neto Garcia R.N. - Reason: Patient/family refused) tacrolimus capsule 0.5 mg (PROGRAF) 0.5 mg, sublingual, 2 times daily - immunosuppression, First dose on Sat08/30/23 at 1999 tacrolimus granules for suspension 0.6 mg (PROGRAF) (CANCELED) 0.6 mg, gastric tube, 2 times daily - immunosuppression, First dose on Sat08/28/23 at 1999, Place entire contents of packet(s) in medicine cup, check for remaining granules in packet and empty these into cup, add 15-30 mL water, mix and administer via syringe or cup; rinse container with additional water and re-administer to ensure all particles given. 2032 (Given - Provider: Gita Arceo R.N.) 820 (Given - Provider: Rita Campos R.N.)1951 (Given - Provider: Sarah Ugarte R.N.) 0731 (Handoff - Provider: Adriano Kelly, Pharm.D., R.Ph., BCPS - Comment: Please hold off on giving tacrolimus dose until after trough level has been drawn then ok to give dose. Thanks!)0932 (Given - Provider: Neto Garcia R.N.) tacrolimus granules for suspension 0.6 mg (PROGRAF) (COMPLETED) 0.6 mg, gastric tube, Once, On Sat08/28/23 at 1430, For 1 dose, Place entire contents of packet(s) in medicine cup, check for remaining granules in packet and empty these into cup, add 15-30 mL water, mix and administer via syringe or cup; rinse container with additional water and re-administer to ensure all particles given. 1515 (Given - Provider: Rita Campos R.N.) zinc sulfate capsule 220 mg (ZINCATE) (CANCELED) 220 mg, oral, Daily with morning meal, First dose on Sat08/27/23 at 0800, Doses listed in zinc sulfate. Each 220 mg of zinc sulfate contains 50 mg of elemental zinc. 0930 (Not Given - Provider: Rita Campos R.N. - Reason: Patient/family refused) 0821 (Given - Provider: Rita Campos R.N.) zinc sulfate capsule 220 mg (ZINCATE) 220 mg, oral, 2 times daily with meals, First dose (after last modification) on Sat08/29/23 at 1700, Doses listed in zinc sulfate. Each 220 mg of zinc sulfate contains 50 mg of elemental zinc. 1620 (Given - Provider: Santos Rick R.N.) 0927 (Given - Provider: Neto Garcia R.N.)1718 (Given - Provider: Rhoda VasquezS.Israel, R.N.) PRN Medication Order 08/28/2023 08/29/2023 08/30/2023 benzocaine-menthoL 15-3.6 mg per lozenge 1 lozenge (CEPACOL) 1 lozenge, oral, As needed, sore throat, Starting on Sat08/22/23 at 0201 D10W bolus 125 mL 125 mL (12.5 g), intravenous, at 500 mL/hr, Administer over 15 Minutes, As needed, low blood sugar, For glucose 54-70 mg/dL, Starting on Idania 08/22/23 at 0825, If the patient has intravenous access available, is not able to take oral feeding safely, does not have a functioning gastrointestinal tract or feeding tube, or is NPO, administer D50W intravenously. D10W bolus 250 mL 250 mL (25 g), intravenous, at 1,000 mL/hr, Administer over 15 Minutes, As needed, low blood sugar, For glucose less than 54 mg/dL, Starting on Idania 08/22/23 at 0825, If intravenous access is available, administer D50W intravenously dextrose 40 % gel 15 g (GLUTOSE) 15 g, oral, As needed, low blood sugar, For glucose 54-70 mg/dL, Starting on Idania 08/22/23 at 0825, If patient is conscious and able to swallow safely and has a fuctioning gastrointestinal tract or on Acarbose (Precose??) or Miglitol (Glyset??). May use tablets or gel. diphenoxylate-atropine 2.5-0.025 mg/5 mL liquid 10 mL (LOMOTIL) 10 mL, oral, 4 times daily PRN, diarrhea, Starting on Sat08/21/23 at 1526, 5 mL=1 LOMOTIL tablet. glucose chewable tablet 16 g 16 g, oral, As needed, low blood sugar, For glucose 54-70 mg/dL, Starting on Idania 08/22/23 at 0825, If patient is conscious and able to swallow safely and has a functioning gastrointestinal tract or on Acarbose (Precose??) or Miglitol (Glyset??). Administer 4 tablets to total 16 grams. May use tablets or gel. ipratropium-albuteroL 0.5-2.5 mg/3 mL nebulizer solution 3 mL (DUONEB) 3 mL, nebulization, Every 6 hours PRN, wheezing, shortness of breath, Starting on Sat08/20/23 at 2056 metoclopramide injection 5 mg (REGLAN) 5 mg, intravenous, Every 6 hours PRN, nausea, vomiting, Starting on Sat08/28/23 at 1521, SECOND line for nausea intractable to zofran ondansetron (PF) injection 4 mg (ZOFRAN) 4 mg, intravenous, Every 6 hours PRN, nausea, vomiting, Starting on Sat08/28/23 at 1539 2042 (Not Given - Provider: Gita Arceo R.N. - Reason: Patient/family refused) 1054 (Given - Provider: Rita Campos R.N.) ondansetron ODT disintegrating tablet 4 mg (ZOFRAN-ODT) 4 mg, oral, Every 6 hours PRN, nausea, vomiting, Starting on Sat08/20/23 at 2356, When splitting ODT at bedside, handle with gloves and a pill splitter to prevent moisture contact. 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
--- OUTSIDE RECORDS SUMMARY | 2023-11-23 13:25 | XMS_ITS | Encounter Summary ---
Author Organization [facility] Address [address] [place] [address] Care Team Providers Care Meat Curer Name Role Phone Elsewhere, Pcp Primary Care Provider Unavailabl e Encounter Details Date Type Department Care Team (Late st Contact Info) Description 08/28/2023 10:40 AM CDT Ancillary Procedure Department of Nursing Social History Tobacco Use Types Packs/Day Years Used Date Smoking Tobacco: Light Smoker Smokeless Tobacco: Never Alcohol Use Standard Drinks/Week Comments Not Currently 0 (1 standard drink = 0.6 oz pur e alcohol) [facility] Utilities Answer Date Recorded In the [...] your living situation today? I have a [employer] place to live 08/20/2023 Sex and Gender Information Value Date Recorded Sex Assigned at Female 05/14/2018 2:49 PM CORK INSULATOR Gender Identity Female 05/14/2018 2:49 PM CORK INSULATOR Sexual Orientation Straight 05/14/2018 2: 49 PM CORK INSULATOR documented as of this encounter Plan of Treatment Upcoming Encounters Date Type Department Care Team (Latest Contact Info) Description 01/03/2024 2:15 PM CDT Clinical Communication Virtual Review in [place], [place] [address] [place] [phone] 01/07/2024 3:00 PM CDT Office Visit Division of Gastroenterology in [place], [place] [address] [place] [phone] Hank Garner Jr., M.D. [address] [place] [phone] documented as of this encounter Procedures Procedure Name Priority Date/Time Associated Diagnosis Comments NURSING IMAGE EXAM Routine 08/28/2023 10 :35 AM CDT documented in this encounter Results * Coccyx-Nursing Image Exam (08/28/2023 10:35 AM CDT) 08/28/2023 [...] Total Score: 0 07/11/19 17 12:26 PM CORK INSULATOR documented as of this encounter Care Teams Meat Curer Relationship Specialty Start Date End Date Elsewhere, Pcp PCP - General Internal Medicine 05/08/23 [facility] Laboratory Medicine 04/07/20 documented as of this encounter
--- OUTSIDE RECORDS SUMMARY | 2023-11-23 13:25 | XMS_ITS | Encounter Summary ---
Author Organization [facility] Address [address] [place] [address] Care Team Providers Care Electrical And Radio Aircraft Mechanic Name Role Phone Elsewhere, Pcp Primary Care Provider Unavailabl e Encounter Details Date Type Department Care Team (Late st Contact Info) Description 08/24/2023 11:50 AM CDT Ancillary Procedure Department of Pulmonary and CC Medicine Social History Tobacco Use Types Packs/Day Years Used Date Smoking Tobacco: Light Smoker Smokeless Tobacco: Never Alcohol Use Standard Drinks/Week Comments Not Currently 0 (1 standard drink = 0.6 oz pur e alcohol) [facility] Utilities Answer Date Recorded In the past [...] Sex Assigned at Female 05/14/2018 2:49 PM SOLAR DESIGNER/INSTALLER Gender Identity Female 05/14/2018 2:49 PM SOLAR DESIGNER/INSTALLER Sexual Orientation Straight 05/14/2018 2: 49 PM SOLAR DESIGNER/INSTALLER documented as of this encounter Plan of Treatment Upcoming Encounters Date Type Department Care Team (Latest Contact Info) Description 01/03/2024 2:15 PM CDT Clinical Communication Virtual Review in [place], [place] [address] [place] [phone] 01/07/2024 3:00 PM CDT Office Visit Division of Gastroenterology in [place], [place] [address] [place] [phone] Hank Garner Jr., M.D. [address] [place] [phone] documented as of this encounter Procedures Procedure Name Priority Date/Time Associated Diagnosis Comments PULMONARY AND CC MEDICINE IMAGE EXAM Routine 08/24/2023 11:50 AM CDT documented in this encounter Results * Non-Radiology Image-Pulmonary And CC Medicine Image Exam (08/24/2023 11:50 AM CDT) 08/24/2023 11:4 5 AM CDT Narrative [facility] - 08/24/2023 12:46 PM CDT This order has been created [...] Total Score: 0 07/11/19 17 12:26 PM SOLAR DESIGNER/INSTALLER documented as of this encounter Care Teams Electrical And Radio Aircraft Mechanic Relationship Specialty Start Date End Date Elsewhere, Pcp PCP - General Internal Medicine 05/08/23 [facility] Laboratory Medicine 04/07/20 documented as of this encounter
--- OUTSIDE RECORDS SUMMARY | 2023-11-23 13:25 | XMS_ITS | Encounter Summary ---
Author Organization [facility] Address [address] [place] [id number] Care Team Providers Care Rating Specialist Name Role Phone Elsewhere, Pcp Primary Care Provider Unavailabl e Encounter Details Date Type Department Care Team (Late st Contact Info) Description 08/23/2023 Orders Only Department of Radiology, [facility], in [place], [place] [address] [place] [phone] Margaret Mccall P.A.-C., M.S. [address] [place] [phone] Cholecystitis (Primary Dx) Social History Tobacco Use Types Packs/Day Years Used Date Smoking Tobacco: Light Smoker Smokeless Tobacco: Never Alcohol Use Standard Drinks/Week Comments Not Currently 0 (1 standard drink = 0.6 oz pur e alcohol) [facility] Utilities Answer Date Recorded In the past 12 months has [facility] [employer], gas, oil, or water [employer] threatened to shut off services in your [...] your living situation today? I have a [facility] place to live 08/20/2023 Sex and Gender Information Value Date Recorded Sex Assigned at Female 05/14/2018 2:49 PM SURVEY DIRECTOR Gender Identity Female 05/14/2018 2:49 PM SURVEY DIRECTOR Sexual Orientation Straight 05/14/2018 2: 49 PM SURVEY DIRECTOR documented as of this encounter Plan of Treatment Upcoming Encounters Date Type Department Care Team (Latest Contact Info) Description 01/03/2024 2:15 PM CDT Clinical Communication Virtual Review in [place], [place] 200 [place] [phone] 01/07/2024 3:00 PM CDT Office Visit Division of Gastroenterology in [place], [place] [address] [place] [phone] Hank Garner Jr., M.D. [address] [place] [phone] documented as of this encounter Visit Diagnoses Diagnosis Cholecystitis- Primary documented in this encounter Additional Health Concerns Infection Onset Date Last Indicated Resolved Time Protective Environment 09/03/2022 09/03/2022 Assessment Noted Time PHQ-9 Depression Total Score: 0 07/11/19 17 12:26 PM SURVEY DIRECTOR documented as of this encounter Care Teams Rating Specialist Relationship Specialty Start Date End Date Elsewhere, Pcp PCP - General Internal Medicine 05/08/23 [facility] Laboratory Medicine 04/07/20 documented as of this encounter
--- OUTSIDE RECORDS SUMMARY | 2023-11-23 13:25 | XMS_ITS | Encounter Summary ---
Author Organization [facility] Address [address] [place] [phone] Care Team Providers Care Linter Saw Sharpener Name Role Phone Elsewhere, Pcp Primary Care Provider Unavailabl e Reason for Visit * Auth/Cert (Routine) Specialty Diagnoses / Procedures Referred By Contac t Referred To Contact Diagnoses Cholecystitis Acute Cholecystitis Procedures ADMIT TO INPATIENT Referral ID Status Reason Start Date Expiration Date Visits Re quested Visits Authorized [id number] 1 1 Encounter Details Date Type Department Care Team (Late st Contact Info) Description 08/22/2023 4:48 PM CDT Anesthesia Event Department of Radiology in [place], [place] [address] [place] [phone] Selene Lopez APRN, CRNA, DNAP [address] [place] [phone] Jose Elizalde APRN, CRNA, DNAP [address] [place] [phone] Anesthesia Record Procedure Summary Procedure Name Responsible Anesthesiologist Anesthesia Start Time Anesthesia Stop Time IR PERCUTANEOUS CHOLECYSTOSTOMY TUBE PLACEMENT Selene Lopez APRN, CRNA, DNAP 08/22/23 1648 08/22/23 1726 Events Date Time Event Comment 08/22/2023 1648 An Start Machine/Equipme nt Checked Infection Precautions Followed Procedure/Site Verified NPO Status Verified Supine Standard ASA Monitors Applied 1652 Turnover to Proceduralist 1707 Proc Start 1707 Anesthesia Time Out 1719 Proc Fin 1721 Turnover to ANE Staff 1725 an stop data 1726 An End I completed my handoff to the receiving staff during which we 1. Identified the patient 2. Identified the responsible provider 3. Reviewed the pertinent medical history 4. Discussed the surgical course 5. Reviewed intra-op anesthesia management and issues during anesthesia 6. Set expectations for post-procedure period 7. Allowed opportunity for questions and acknowledgement of understanding. Meds Name Total remimazolam 2.5 mg/mL injection 6 mg Lactated Ringers Free Drip 50 mL * Agents No agents on file. * Blood No blood administrations on file. Lines, Drains, and Airways Type Details Placement Removal Wound 08/20/23; 1135; Y; P ressure inj; Stage 3; Coccyx 08/20/23 1135 by Salvatore Burt R.N., C.W.C.N. Wound 08/21/23; 0900; Y; K nee; Anterior, Right, Lower; Multifactorial wound 08/21/23 0900 by Salvatore Burt R.N., C.W.C.N. NG/OG Tube 08/21/23; 1439; Perc utaneous endoscopic, Gastrostomy; No; Balloon; 5 mL; 14 Fr; 3.5 cm; Left, Lower, Quadrant (abdomen); Small bore (ENFit??) 08/21/23 1439 by Brandie Watkins Biliary Tube 08/22/23; 1717; Cholecystostomy; 10 Fr.; RUQ 08/22/23 1717 by Marilee Torres, R.N. Peripheral IV Catheter Size: 20 G; Orientation: Right; Location: Forearm; Inserted by: outside facility; Removal Date: 08/26/23; Removal Time: 075; Removal Reason: Leaking 08/20/23 2337 by 08/26/23 0759 by Virginia Juárez Wound 06/30/23; 2114; Skin tear; Skin tear Type 2 (partial flap loss); Knee; Anterior, Bilateral; 09/19/23; 1999; Duplicate LDA 06/30/232114 by Marina Pastrana, R.NMarlys 09/19/231999 by Beronica Pope REdison Wound 07/09/23; Y; Hematom a; Head (Comment); Right; Forehead; 09/19/23; 1999; Other (Comment); from previous encounter no londer there 07/09/23 0000 by Salvatore Burt R.N., C.W.C.N. 09/19/231999 by Beronica Pope R.N. Wound 08/21/23; 0900; N; S kin tear; Skin tear Type 1 (No skin loss); Arm; Anterior, Left, Upper; 08/22/23; 195808/21/23 09 by Leida Bennett 08/22/231958 by Loy Call REdison Peripheral IV Placement Date: 08/04 11/26; Placement Time: 1431; Catheter Size: 20 G; Orientation: Right; Location: Arm; Removal Date: 08/27/23; Removal Time: 2116; Removal Reason: Leaking 08/21/23 143 by Laura Roe APRN, [facility] 08/27/232116 by Neto Garcia R.N. Wound 08/21/23; 1700; N; S kin tear; Skin tear Type 1 (No skin loss); Arm; Left, Upper, Anterior; 09/19/23; 1999; Other (Comment); from previous encounter no longer there 08/21/23 170 by Leida Bennett 09/19/231999 by Beronica Pope R.N. documented in this encounter Social History Tobacco Use Types Packs/Day Years Used Date Smoking Tobacco: Light Smoker Smokeless Tobacco: Never Alcohol Use Standard Drinks/Week Comments Not Currently 0 (1 standard drink = 0.6 oz pur e alcohol) [facility] Utilities Answer Date Recorded In the past 12 months has [facility] [employer], [employer], oil, or water [employer] threatened to shut off services in your [...] your living situation today? I have a [facility] place to live 08/20/2023 Sex and Gender Information Value Date Recorded Sex Assigned at Female 05/14/2018 2:49 PM BLACKJACK SUPERVISOR Gender Identity Female 05/14/2018 2:49 PM BLACKJACK SUPERVISOR Sexual Orientation Straight 05/14/2018 2: 49 PM BLACKJACK SUPERVISOR documented as of this encounter OR Notes * Anesthesia Preprocedure Evaluation - Efrain Bowden M.D., M.S. - 08/22/2023 4:59 PM CDT Preprocedure Anesthesia & H&P Assessment Procedure Summary Anesthesia Start Date/Time: 08/22/23 1648 Scheduled providers: La Aguilar APRN, SURFACE WATER MANAGER, DNAP; David Torres M.D.; Shaggy Lamar M.D. Procedure: IR PERCUTANEOUS CHOLECYSTOSTOMY TUBE PLACEMENT Indications: Destination therapy for cholecystitis Location: Department of Radiology in [place], [place] Pertinent components of the patient's history including current problem list, medical history, surgical history, family history, social history, medications and allergies were reviewed. Present illness and pre-op diagnosis were confirmed. The planned surgery / procedure was verified with the patient / legal guardian. 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 Risks/Benefits/Alternatives of Blood transfusion discussed with patient / legal guardian, includingan opportunity to ask questions and/or decline some or all transfusion therapies. The patient / legal guardian consented to the use of all blood products, as deemed medically necessary Approval to Proceed: approved for anesthesia documented in this encounter Plan of Treatment Upcoming Encounters Date Type Department Care Team (Latest Contact Info) Description 01/03/2024 2:15 PM CDT Clinical Communication Virtual Review in [address] [phone] 01/07/2024 3:00 PM CDT Office Visit Division of Gastroenterology in [address] [phone] Hank Garner Jr., M.D. [address] [place] [phone] documented as of this encounter Visit Diagnoses Not on filedocumented in this encounter Administered Medications Inactive Administered Medications - up to 3 most recent administrations Medication Order MAR Action Action Date Dose Rate Site Lactated Ringer's intravenous, Continuous Infusion: Per Instructions PRN, Starting on Idania 08/22/23 at 1648, Anesthesia Intra-op New Bag 08/22/2023 4:48 PM CDT remimazolam injection (BYFAVO) intravenous, As needed, Starting on Idania 08/22/23 at 1709, Anesthesia Intra-op Given 08/22/2023 5:13 PM CDT 2 mg Given 08/22/2023 5:09 PM CDT 2 mg Given 08/22/2023 5:07 PM CDT 2 mg documented in this encounter Additional Health Concerns Infection Onset Date Last Indicated Resolved Time Protective Environment 09/03/2022 09/03/2022 Assessment Noted Time PHQ-9 Depression Total Score: 0 07/11/19 17 12:26 PM BLACKJACK SUPERVISOR documented as of this encounter Care Teams Linter Saw Sharpener Relationship Specialty Start Date End Date Elsewhere, Pcp PCP - General Internal Medicine 05/08/23 [facility] Laboratory Medicine 04/07/20 documented as of this encounter
--- OUTSIDE RECORDS SUMMARY | 2023-11-23 13:25 | XMS_ITS | Encounter Summary ---
Author Organization [facility] Address [address] [place] [address] Care Team Providers Care Monotype Machinist Name Role Phone Elsewhere, Pcp Primary Care Provider Unavailabl e Encounter Details Date Type Department Care Team (Late st Contact Info) Description 08/24/2023 11:45 AM CDT Ancillary Procedure Department of Pulmonary and CC Medicine Social History Tobacco Use Types Packs/Day Years Used Date Smoking Tobacco: Light Smoker Smokeless Tobacco: Never Alcohol Use Standard Drinks/Week Comments Not Currently 0 (1 standard drink = 0.6 oz pur e alcohol) [facility] Utilities Answer Date Recorded In the past [...] [facility] place to live 08/20/2023 Sex and Gender Information Value Date Recorded Sex Assigned at Female 05/14/2018 2:49 PM CLOTH SPREADER SCREEN PRINTING Gender Identity Female 05/14/2018 2:49 PM CLOTH SPREADER SCREEN PRINTING Sexual Orientation Straight 05/14/2018 2: 49 PM CLOTH SPREADER SCREEN PRINTING documented as of this encounter Plan of Treatment Upcoming Encounters Date Type Department Care Team (Latest Contact Info) Description 01/03/2024 2:15 PM CDT Clinical Communication Virtual Review in [place], [place] [address] [place] [address] 01/07/2024 3:00 PM CDT Office Visit Division of Gastroenterology in [place], [place] [address] [place] [phone] Hank Garner Jr., M.D. [address] [place] [phone] documented as of this encounter Procedures Procedure Name Priority Date/Time Associated Diagnosis Comments PULMONARY AND CC MEDICINE IMAGE EXAM Routine 08/24/2023 11:45 AM CDT documented in this encounter Results * Non-Radiology Image-Pulmonary And CC Medicine Image Exam (08/24/2023 11:45 AM CDT) 08/24/2023 11:4 5 AM CDT [...] Total Score: 0 07/11/19 17 12:26 PM CLOTH SPREADER SCREEN PRINTING documented as of this encounter Care Teams Monotype Machinist Relationship Specialty Start Date End Date Elsewhere, Pcp PCP - General Internal Medicine 05/08/23 [facility] Laboratory Medicine 04/07/20 documented as of this encounter
--- OUTSIDE RECORDS SUMMARY | 2023-11-23 13:25 | XMS_ITS | Encounter Summary ---
Author Organization [facility] Address [address] [place] [address] Care Team Providers Care Machine Carton Marker Name Role Phone Elsewhere, Pcp Primary Care Provider Unavailabl e Encounter Details Date Type Department Care Team (Late st Contact Info) Description 08/24/2023 7:25 AM CDT Ancillary Procedure Department of Pulmonary and CC Medicine Social History Tobacco Use Types Packs/Day Years Used Date Smoking Tobacco: Light Smoker Smokeless Tobacco: Never Alcohol Use Standard Drinks/Week Comments Not Currently 0 (1 standard drink = 0.6 oz pur e alcohol) [facility] Utilities Answer Date Recorded In [...] your living situation today? I have a [facility] place to live 08/20/2023 Sex and Gender Information Value Date Recorded Sex Assigned at Female 05/14/2018 2:49 PM SLIP MIXER Gender Identity Female 05/14/2018 2:49 PM SLIP MIXER Sexual Orientation Straight 05/14/2018 2: 49 PM SLIP MIXER documented as of this encounter Plan of Treatment Upcoming Encounters Date Type Department Care Team (Latest Contact Info) Description 01/03/2024 2:15 PM CDT Clinical Communication Virtual Review in [place], [place] [address] [place] [phone] 01/07/2024 3:00 PM CDT Office Visit Division of Gastroenterology in [place], [place] [address] [place] [phone] Hank Garner Jr., M.D. [address] [place] [phone] documented as of this encounter Procedures Procedure Name Priority Date/Time Associated Diagnosis Comments PULMONARY AND CC MEDICINE IMAGE EXAM Routine 08/24/2023 7:25 AM CDT documented in this encounter Results * Non-Radiology Image-Pulmonary And CC Medicine Image Exam (08/24/2023 7:25 AM CDT) Narrative [facility] - 08/24/2023 11:52 AM CDT This order has been created [...] Total Score: 0 07/11/19 17 12:26 PM SLIP MIXER documented as of this encounter Care Teams Machine Carton Marker Relationship Specialty Start Date End Date Elsewhere, Pcp PCP - General Internal Medicine 05/08/23 [facility] Laboratory Medicine 04/07/20 documented as of this encounter
--- OUTSIDE RECORDS SUMMARY | 2023-11-23 13:25 | XMS_ITS | Encounter Summary ---
Author Organization [facility] Address [address] [place] [address] Care Team Providers Care Dining Room Host/Hostess Name Role Phone Elsewhere, Pcp Primary Care Provider Unavailabl e Encounter Details Date Type Department Care Team (Late st Contact Info) Description 08/28/2023 10:45 AM CDT Ancillary Procedure Department of Nursing Social History Tobacco Use Types Packs/Day Years Used Date Smoking Tobacco: Light Smoker Smokeless Tobacco: Never Alcohol Use Standard Drinks/Week Comments Not Currently 0 (1 standard drink = 0.6 oz pur e alcohol) [facility] Utilities Answer Date Recorded In the [...] your living situation today? I have a [facility] place to live 08/20/2023 Sex and Gender Information Value Date Recorded Sex Assigned at Female 05/14/2018 2:49 PM FLEXOGRAPHIC PRINTING MACHINIST Gender Identity Female 05/14/2018 2:49 PM FLEXOGRAPHIC PRINTING MACHINIST Sexual Orientation Straight 05/14/2018 2: 49 PM FLEXOGRAPHIC PRINTING MACHINIST documented as of this encounter Plan of Treatment Upcoming Encounters Date Type Department Care Team (Latest Contact Info) Description 01/03/2024 2:15 PM CDT Clinical Communication Virtual Review in [place], [place] 200 [place] [phone] 01/07/2024 3:00 PM CDT Office Visit Division of Gastroenterology in [place], [place] [address] [place] [phone] Hank Garner Jr., M.D. [address] [place] [phone] documented as of this encounter Procedures Procedure Name Priority Date/Time Associated Diagnosis Comments NURSING IMAGE EXAM Routine 08/28/2023 10 :35 AM CDT documented in this encounter Results * Leg, right-Nursing Image Exam (08/28/2023 10:35 AM CDT) 08/28/2023 [...] Total Score: 0 07/11/19 17 12:26 PM FLEXOGRAPHIC PRINTING MACHINIST documented as of this encounter Care Teams Dining Room Host/Hostess Relationship Specialty Start Date End Date Elsewhere, Pcp PCP - General Internal Medicine 05/08/23 [facility] Laboratory Medicine 04/07/20 documented as of this encounter
--- OUTSIDE RECORDS SUMMARY | 2023-11-23 13:25 | XMS_ITS | Encounter Summary ---
Author Organization [facility] Address [address] [place] [address] Care Team Providers Care Restrooms Or Lounges Maid Name Role Phone Elsewhere, Pcp Primary Care Provider Unavailabl e Encounter Details Date Type Department Care Team (Late st Contact Info) Description 08/23/2023 5:20 PM CDT Ancillary Procedure Department of Pulmonary and CC Medicine Social History Tobacco Use Types Packs/Day Years Used Date Smoking Tobacco: Light Smoker Smokeless Tobacco: Never Alcohol Use Standard Drinks/Week Comments Not Currently 0 (1 standard drink = 0.6 oz pur e alcohol) [facility] Utilities Answer Date Recorded In [...] your living situation today? I have a [facility] place to live 08/20/2023 Sex and Gender Information Value Date Recorded Sex Assigned at Female 05/14/2018 2:49 PM SENIOR ACCOUNT EXECUTIVE Gender Identity Female 05/14/2018 2:49 PM SENIOR ACCOUNT EXECUTIVE Sexual Orientation Straight 05/14/2018 2: 49 PM SENIOR ACCOUNT EXECUTIVE documented as of this encounter Plan of Treatment Upcoming Encounters Date Type Department Care Team (Latest Contact Info) Description 01/03/2024 2:15 PM CDT Clinical Communication Virtual Review in [place], [place] [address] [place] [address] 01/07/2024 3:00 PM CDT Office Visit Division of Gastroenterology in [place], [place] [address] [place] [phone] Hank Garner Jr., M.D. [address] [place] [phone] documented as of this encounter Procedures Procedure Name Priority Date/Time Associated Diagnosis Comments PULMONARY AND CC MEDICINE IMAGE EXAM Routine 08/23/2023 5:20 PM CDT documented in this encounter Results * Non-Radiology Image-Pulmonary And CC Medicine Image Exam (08/23/2023 5:20 PM CDT) 08/23/2023 5:16 PM CDT Narrative [facility] - 08/23/2023 5:41 PM CDT This order has been created [...] Score: 0 07/11/19 17 12:26 PM SENIOR ACCOUNT EXECUTIVE documented as of this encounter Care Teams Restrooms Or Lounges Maid Relationship Specialty Start Date End Date Elsewhere, Pcp PCP - General Internal Medicine 05/08/23 [facility] Laboratory Medicine 04/07/20 documented as of this encounter
--- OUTSIDE RECORDS SUMMARY | 2023-11-23 13:25 | XMS_ITS | Encounter Summary ---
Author Organization [facility] Address [address] [place] [address] Care Team Providers Care Hot Die Picker Name Role Phone Elsewhere, Pcp Primary Care Provider Unavailabl e Encounter Details Date Type Department Care Team (Late st Contact Info) Description 08/29/2023 3:20 PM CDT Ancillary Procedure Department [...] Sex Assigned at Female 05/14/2018 2:49 PM WASHING MACHINE STRIPER Gender Identity Female 05/14/2018 2:49 PM WASHING MACHINE STRIPER Sexual Orientation Straight 05/14/2018 2: 49 PM WASHING MACHINE STRIPER documented as of this encounter Plan of Treatment Upcoming Encounters Date Type Department Care Team (Latest Contact Info) Description 01/03/2024 2:15 PM CDT Clinical Communication Virtual Review in [place], [place] [address] [place] [phone] 01/07/2024 3:00 PM CDT Office Visit Division of Gastroenterology in [place], [place] [address] [place] [phone] Hank Garner Jr., M.D. [address] [place] [phone] documented as of this encounter Procedures Procedure Name Priority Date/Time Associated Diagnosis Comments PULMONARY AND CC MEDICINE IMAGE EXAM Routine 08/29/2023 3:20 PM CDT documented in this encounter Results * Non-Radiology Image-Pulmonary And CC Medicine Image Exam (08/29/2023 3:20 PM CDT) 08/29/2023 3:20 PM CDT Narrative [facility] - 08/29/2023 3:45 PM CDT This order has been created [...] Total Score: 0 07/11/19 17 12:26 PM WASHING MACHINE STRIPER documented as of this encounter Care Teams Hot Die Picker Relationship Specialty Start Date End Date Elsewhere, Pcp PCP - General Internal Medicine 05/08/23 [facility] Laboratory Medicine 04/07/20 documented as of this encounter
--- OUTSIDE RECORDS SUMMARY | 2023-11-23 13:25 | XMS_ITS | Encounter Summary ---
Author Organization [facility] Address [address] [place] [address] Care Team Providers Care Report Specialist Name Role Phone Elsewhere, Pcp Primary Care Provider Unavailabl e Encounter Details Date Type Department Care Team (Latest Contact Info) Description 08/22/2023 Clinical Communication Division of Gastroenterology in [place], [place] [address] [place] [phone] Bee Bermudez M.D. [address] [place] [phone] Social History Tobacco Use Types Packs/Day Years Used Date Smoking Tobacco: Light Smoker Smokeless Tobacco: Never Alcohol Use Standard Drinks/Week Comments Not Currently 0 (1 standard drink = 0.6 oz pur e alcohol) [facility] Utilities Answer Date Recorded In the past 12 months has [facility] [employer], gas, oil, or water [employer] threatened to shut off services in your [...] your living situation today? I have a [facility] place to live 09/19/2023 Sex and Gender Information Value Date Recorded Sex Assigned at Female 05/14/2018 2:49 PM AIRFRAME AND POWER PLANT MECHANIC Gender Identity Female 05/14/2018 2:49 PM AIRFRAME AND POWER PLANT MECHANIC Sexual Orientation Straight 05/14/2018 2: 49 PM AIRFRAME AND POWER PLANT MECHANIC documented as of this encounter Plan of Treatment Upcoming Encounters Date Type Department Care Team (Latest Contact Info) Description 01/03/2024 2:15 PM CDT Clinical Communication Virtual Review in [place], [place] [address] [place] [phone] 01/07/2024 3:00 PM CDT Office Visit Division of Gastroenterology in [place], [place] [address] [place] [phone] Hank Garner Jr., M.D. [address] [place] [phone] documented as of this encounter Visit Diagnoses Not on filedocumented in this encounter Additional Health Concerns Infection Onset Date Last Indicated Resolved Time Protective Environment 09/03/2022 09/03/2022 C. difficile 09/21/2023 09/21/2023 10/19/2023 5:38 AM CDT Assessment Noted Time PHQ-9 Depression Total Score: 0 07/11/19 17 12:26 PM AIRFRAME AND POWER PLANT MECHANIC documented as of this encounter Care Teams Report Specialist Relationship Specialty Start Date End Date Elsewhere, Pcp PCP - General Internal Medicine 05/08/23 [facility] Laboratory Medicine 04/07/20 documented as of this encounter
--- OUTSIDE RECORDS SUMMARY | 2023-11-23 13:25 | XMS_ITS | Encounter Summary ---
Author Organization [facility] Address [address] [place] [address] Care Team Providers Care Loop Puller Name Role Phone Elsewhere, Pcp Primary Care Provider Unavailabl e Encounter Details Date Type Department Care Team (Late st Contact Info) Description 08/28/2023 2:50 PM CDT Ancillary Procedure Department of Pulmonary and CC Medicine Social History Tobacco Use Types Packs/Day Years Used Date Smoking Tobacco: Light Smoker Smokeless Tobacco: Never Alcohol Use Standard Drinks/Week Comments Not Currently 0 (1 standard drink = 0.6 oz pur e alcohol) [facility] Utilities Answer Date Recorded In [...] your living situation today? I have a [facility] place to live 08/20/2023 Sex and Gender Information Value Date Recorded Sex Assigned at Female 05/14/2018 2:49 PM ASSOCIATE AUTOMATION ENGINEER Gender Identity Female 05/14/2018 2:49 PM ASSOCIATE AUTOMATION ENGINEER Sexual Orientation Straight 05/14/2018 2: 49 PM ASSOCIATE AUTOMATION ENGINEER documented as of this encounter Plan of Treatment Upcoming Encounters Date Type Department Care Team (Latest Contact Info) Description 01/03/2024 2:15 PM CDT Clinical Communication Virtual Review in [place], [place] [address] [place] [phone] 01/07/2024 3:00 PM CDT Office Visit Division of Gastroenterology in [place], [place] [address] [place] [phone] Hank Garner Jr., M.D. [address] [place] [phone] documented as of this encounter Procedures Procedure Name Priority Date/Time Associated Diagnosis Comments PULMONARY AND CC MEDICINE IMAGE EXAM Routine 08/28/2023 2:50 PM CDT documented in this encounter Results * Non-Radiology Image-Pulmonary And CC Medicine Image Exam (08/28/2023 2:50 PM CDT) 08/28/2023 2:50 PM CDT Narrative [facility] - 08/28/2023 3:32 PM CDT This order has been created [...] Total Score: 0 07/11/19 17 12:26 PM ASSOCIATE AUTOMATION ENGINEER documented as of this encounter Care Teams Loop Puller Relationship Specialty Start Date End Date Elsewhere, Pcp PCP - General Internal Medicine 05/08/23 [facility] Laboratory Medicine 04/07/20 documented as of this encounter
--- OUTSIDE RECORDS SUMMARY | 2023-11-23 13:26 | XMS_ITS | Encounter Summary ---
Author Organization [facility] Address [address] [place] [address] Care Team Providers Care Relief Pharmacist Name Role Phone Elsewhere, Pcp Primary Care Provider Unavailabl e Reason for Visit * Auth/Cert (Routine) Specialty Diagnoses / Procedures Referred By Contac t Referred To Contact Diagnoses Cholecystitis Acute Cholecystitis Procedures ADMIT TO INPATIENT Referral ID Status Reason Start Date Expiration Date Visits Re quested Visits Authorized [id number] 1 1 Encounter Details Date Type Department Care Team (Latest Contact Info) Description 08/21/2023 2:11 PM CDT Anesthesia Event Division of Gastroenterology in [place], [place] [address] [place] [phone] Elvira Adler APRN, CIGARETTE PACKING MACHINE OPERATOR [address] [place] [phone] Laura Roe APRN, CIGARETTE PACKING MACHINE OPERATOR [address] [place] [phone] Anesthesia Record Procedure Summary Procedure Name Responsible Anesthesiologist Anesthesia Start Time Anesthesia Stop Time ERCP Elvira Adler A PRN, CIGARETTE PACKING MACHINE OPERATOR 08/21/23 1411 08/21/23 1559 Events Date Time Event Comment 08/21/2023 1411 An Start Machine/Equipme nt Checked Infection Precautions Followed Procedure/Site Verified NPO Status Verified Supine Standard ASA Monitors Applied 1421 An Induction 1424 An Intubation 1424 Turnover to Proceduralist 1437 Proc Start 1542 Proc Fin 1547 Turnover to ANE Staff 1548 Airway Removal Criteria Met 1548 Extubation/Airway Removed 1554 an stop data 1559 An End I completed my handoff to the receiving staff during which we 1. Identified the patient 2. Identified the responsible provider 3. Reviewed the pertinent medical history 4. Discussed the surgical course 5. Reviewed intra-op anesthesia management and issues during anesthesia 6. Set expectations for post-procedure period 7. Allowed opportunity for questions and acknowledgement of understanding. Meds Name Total lidocaine 2% (mg) injection 60 mg rocuronium 10 mg/mL injection 40 mg phenylephrine 100 mcg/mL injection 100 m cg ondansetron 4 mg/2 mL injection 4 mg propofol 10 mg/mL infusion 388.08 mg propofol 10 mg/mL injection 80 mg Lactated Ringers Free Drip 250 mL * Agents No agents on file. * Blood No blood administrations on file. Lines, Drains, and Airways Type Details Placement Removal Wound 08/20/23; 1135; Y; P ressure inj; Stage 3; Coccyx 08/20/23 1135 by Salvatore Burt R.N., C.W.C.N. Wound 08/21/23; 0900; Y; K nee; Anterior, Right, Lower; Multifactorial wound 08/21/23 0900 by Salvatore Burt R.N., C.W.C.N. NG/OG Tube 08/21/23; 1439; Percutaneous endoscopic, Gastrostomy; No; Balloon; 5 mL; 14 Fr; 3.5 cm; Left, Lower, Quadrant (abdomen); Small bore (ENFit??) 08/21/23 1439 by Brandie Watkins Peripheral IV Catheter Size: 20 G; Orientation: Right; Location: Forearm; Inserted by: outside facility; Removal Date: 08/26/23; Removal Time: 075; Removal Reason: Leaking 08/20/23 2337 by 08/26/23 0759 by Virginia Juárez NG/OG Tube 05/17/23; 0944; Gastrostomy; 14 Fr; Quadrant (abdomen), Left, Upper; Small bore (ENFit??); 08/21/23; 1438 05/17/23 0944 by Randi Garland R.N., CCRN 08/21/23 1438 by Brandie Watkins Wound 06/30/23; 5; Skin tear; Skin tear Type 2 (partial flap loss); Knee; Anterior, Bilateral; 09/19/23; 1999; Duplicate LDA 06/30/232114 by Marina Pastrana RMarlysNMarlys 09/19/231999 by Beronica Pope R.N. Wound 07/09/23; Y; Hematom a; Head (Comment); Right; Forehead; 09/19/23; 1999; Other (Comment); from previous encounter no londer there 07/09/23 0000 by Salvatore Burt R.N., C.W.C.N. 09/19/231999 by Beronica Pope R.N. Wound 08/20/23; 2200; Y; IntertrigDer; Breast; Lower, Right; 08/21/23; 234608/20/232199 by Tristan Jackson RMarlysN. 08/21/232346 by Tammy Regalado REdison Wound 08/20/23; 2200; IntertrigDer; Groin; Bilateral; 08/21/23; 234608/20/232199 by Tristan Jackson RMarlysN. 08/21/232346 by Tammy Regalado RMarlysNMarlys Wound 08/21/23; 0900; N; S kin tear; Skin tear Type 1 (No skin loss); Arm; Anterior, Left, Upper; 08/22/23; 195808/21/23 09 by Leida Bennett 08/22/231958 by Loy Call, R.N. ETT Placement Date: 08/04 11/26; Placement Time: 1424 (created via procedure documentation); Mask Ventilation: Not attempted; Technique: Video laryngoscopy; Type: Standard ETT; Single Lumen Tube Size: 6 mm; Cuffed: Yes; Location: Oral; Grade View: Grade 1; Insertion Attempts: 1; Placement Verification: Bilateral breath sounds, Positive ETCO2, Symmetrical chest wall movement; Removal Date: 08/21/23; Removal Time: 1548 08/21/23 1424 by Laura Roe APRN, CIGARETTE PACKING MACHINE OPERATOR 08/21/23 1548 by Laura Roe APRN, CIGARETTE PACKING MACHINE OPERATOR Peripheral IV Placement Date: 08/04 11/26; Placement Time: 1431; Catheter Size: 20 G; Orientation: Right; Location: Arm; Removal Date: 08/27/23; Removal Time: 2116; Removal Reason: Leaking 08/21/231431 by Laura Roe APRN, CIGARETTE PACKING MACHINE OPERATOR 08/27/232116 by Neto Garcia REdison documented in this encounter Social History Tobacco Use Types Packs/Day Years Used Date Smoking Tobacco: Light Smoker Smokeless Tobacco: Never Alcohol Use Standard Drinks/Week Comments Not Currently 0 (1 standard drink = 0.6 oz pur e alcohol) [facility] Utilities Answer Date Recorded In the past 12 months has e electric, gas, oil, or water [employer] threatened to shut off services in your [...] your living situation today? I have a [facility] place to live 08/20/2023 Sex and Gender Information Value Date Recorded Sex Assigned at Female 05/14/2018 2:49 PM RENTAL COORDINATOR Gender Identity Female 05/14/2018 2:49 PM RENTAL COORDINATOR Sexual Orientation Straight 05/14/2018 2: 49 PM RENTAL COORDINATOR documented as of this encounter OR Notes * Anesthesia Postprocedure Evaluation - Elvira Adler APRN, CRNA - 08/21/2023 3:59 PM CDT Patient: Jacqueline Galvan Procedure Summary Date: 08/21/23 Room / Location: Division of Gastroenterology in [place], [place] Anesthesia Start: 1411 Anesthesia Stop: 1559 Procedures: ERCP EGD - PERCUTANEOUS ENDOSCOPIC GASTROSTOMY/JEJUNOSTOMY Diagnosis: Scheduled Providers: Torito Telles M.D. Responsible Provider: Elvira Adler APRN, CRNA Anesthesia Type: general ASA Status: 4 Anesthesia Type: general Last vitals Vitals Value Taken Time BP 141/67 08/21/23 1557 Temp Pulse 66 08/21/23 1559 Resp 14 08/21/23 1559 SpO2 97 % 08/21/23 1559 Vitals shown include unfiled device data. Please reference Vitals flowsheet for most recent vital signs. Anesthesia Post Evaluation Patient Disposition: general care unit Cardiovascular status: hemodynamics (HR & BP) acceptable Respiratory status: patent airway with spontaneous effort Temperature: normothermic Oxygen requirements: closed face mask Level of consciousness: awake Pain score: pain adequately controlled and/or at baseline Post Op nausea/vomiting: none Hydration status: hypo or hypervolemic requiring ongoing treatment * Anesthesia Procedure Notes - Laura Roe APRN, CRNA - 08/21/2023 2:43 PM CDTAssociated Order(s): Airway Airway Date/Time: 08/21/2023 2:24 PM Performed by: O'Laura Yarbrough APRN, CRNA Authorized by: Laura Roe APRN, CRNA Patient location during procedure: OR / Procedure Area PROCEDURE DETAILS: Mask difficulty assessment: not attempted Final airway type: video laryngoscope Laryngeal Manipulation: no Final best view of glottic structures - Cormack/Lehane Score: grade 1 ETT location: oral VL device: glide scope [place] scope blade size: 3 Tube size: 6 ETT distance at teeth/gum: 20 Oral tube type: standard ETT Cuffed: yes Leak Test Performed: no Number of attempt to successful placement: 1 Airway confirmation: bilateral breath sounds, positive ETCO2 and bilateral chest rise Other previous techniques attempted: none PRE PROCEDURE DETAILS: Pre evaluation for airway management: procedure Urgency: elective Preop assessment of probable difficulty: no difficulty anticipated Preoxygenation: bag valve mask SEDATION / ANESTHESIA Anesthesia method: anesthesia POST PROCEDURE DETAILS: Procedure outcome: successful Notable Events: no complications * Anesthesia Preprocedure Evaluation - Laura Roe APRN, CRNA - 08/21/2023 2:05 PM CDT Preprocedure Anesthesia & H&P Assessment Procedure Summary Anesthesia Start Date/Time: 08/21/23 1411 Scheduled providers: Torito Telles M.D. Procedures: ERCP EGD - PERCUTANEOUS ENDOSCOPIC GASTROSTOMY/JEJUNOSTOMY Location: Division of Gastroenterology in [place], [place] Pertinent components of the patient's history [...] Renal (HCC) OBJECTIVE PHYSICAL EXAMINATION Airway (HEENT) Mallampati: II TM Distance: >3 FB Neck ROM: Full Mouth Opening: >3 cm Cardiovascular Rhythm: Regular Rate: Normal Cardiovascular Assessment: cardiovascular normal Functional Capacity: <4 METS Pulmonary Pulmonary Assessment: Clear General / Constitutional Constitutional Assessment: Thin General State of Health:: ill appearing Neurological Neurologic Assessment: alert and alert and oriented x 3 Dental Dental Assessment: dentition intact ASSESSMENT / PLAN ANESTHESIA PLAN ASA: 4 Anesthesia Plan: general Patient seen and allergies reviewed, anesthesia plan and risks discussed directly with patient /legal guardian or through an optical advisor. Risks/Benefits/Alternatives of Blood transfusion discussed with patient [...] PM CDT Clinical Communication Virtual Review in [address] [phone] 01/07/2024 3:00 PM CDT Office Visit Division of Gastroenterology in [address] [phone] Hank Garner Jr., M.D. [address] [place] [phone] documented as of this encounter Procedures Procedure Name Priority Date/Time Associated Diagnosis Comments LDA ANE ENDOTRACHEAL AIRWAY Routine 08/21/2023 2:24 PM CDT documented in this encounter Results * LDA ANE ENDOTRACHEAL AIRWAY (08/21/2023 2:24 PM CDT) Narrative Laura Roe APRN, CRNA - 08/21/2023 2:24 PM CDT Laura Roe APRN, CRNA ? 08/21/2023 ??2:43 PM Airway Date/Time: 08/21/2023 2:24 PM Performed by: Laura Roe APRN, CRNA Authorized by: Laura Roe APRN, CRNA ?? Patient location during procedure: OR / Procedure Area PROCEDURE DETAILS: Mask difficulty assessment: not attempted Final airway type: video laryngoscope Laryngeal Manipulation: no ?? Final best view of glottic structures - Cormack/Lehane Score: grade 1 ETT location: oral VL device: glide scope [place] scope blade size: 3 Tube size: 6 ETT distance at teeth/gum: 20 Oral tube type: standard ETT Cuffed: yes Leak Test Performed: no ?? Number of attempt to successful placement: 1 Airway confirmation: bilateral breath sounds, positive ETCO2 and bilateral chest rise Other previous techniques attempted: none PRE PROCEDURE DETAILS: Pre evaluation for airway management: procedure Urgency: elective Preop assessment of probable difficulty: no difficulty anticipated Preoxygenation: bag valve mask SEDATION / ANESTHESIA Anesthesia method: anesthesia POST PROCEDURE DETAILS: ? Procedure outcome: successful ?? Notable Events: no complications Laura Roe APRN, CRNA ANESTHESIA O RDERABLES documented in this encounter Visit Diagnoses Not on filedocumented in this encounter Administered Medications Inactive Administered Medications - up to 3 most recent administrations Medication Order MAR Action Action Date Dose Rate Site Lactated Ringer's intravenous, Continuous Infusion: Per Instructions PRN, Starting on Sat08/21/23 at 1411, Anesthesia Intra-op New Bag 08/21/2023 2:11 PM CDT lidocaine (PF) (cardiac) injection intravenous, As needed, Starting on Sat08/21/23 at 1424, Anesthesia Intra-op Given 08/21/2023 2:24 PM CDT 60 mg ondansetron (PF) injection (ZOFRAN) intravenous, As needed, Starting on Sat08/21/23 at 1542, Anesthesia Intra-op Given 08/21/2023 3:42 PM CDT 4 mg phenylephrine injection intravenous, As needed, Starting on Sat08/21/23 at 1424, Anesthesia Intra-op Given 08/21/2023 2:24 PM CDT 100 mcg propofol 10 mg/mL infusion (DIPRIVAN) intravenous, Continuous Infusion: Per Instructions PRN, Starting on Sat08/21/23 at 1424, Anesthesia Intra-op Rate/Dose Change 08/21/2023 2:42 PM CDT 125 mcg/kg/min 33.075 mL/hr New Bag 08/21/2023 2:24 PM CDT 100 mcg/kg/min 26.46 mL/ hr propofoL injection (DIPRIVAN) intravenous, As needed, Starting on Sat08/21/23 at 1424, Anesthesia Intra-op Given 08/21/2023 2:24 PM CDT 80 mg rocuronium injection (ZEMURON) intravenous, As needed, Starting on Sat08/21/23 at 1424, Anesthesia Intra-op Given 08/21/2023 2:24 PM CDT 40 mg documented in this encounter Additional Health Concerns Infection Onset Date Last Indicated Resolved Time Protective Environment 09/03/2022 09/03/2022 Assessment Noted Time PHQ-9 Depression Total Score: 0 07/11/19 17 12:26 PM RENTAL COORDINATOR documented as of this encounter Care Teams Relief Pharmacist Relationship Specialty Start Date End Date Elsewhere, Pcp PCP - General Internal Medicine 05/08/23 [facility] Laboratory Medicine 04/07/20 documented as of this encounter
--- OUTSIDE RECORDS SUMMARY | 2023-11-23 13:26 | XMS_ITS | Encounter Summary ---
Author Organization [facility] Address [address] [place] [address] Care Team Providers Care Homogenizer Operator Name Role Phone Elsewhere, Pcp Primary Care Provider Unavailabl e Reason for Visit * Auth/Cert (Routine) Specialty Diagnoses / Procedures Referred By Contac t Referred To Contact Diagnoses Cholecystitis Acute Cholecystitis Procedures ADMIT TO INPATIENT Referral ID Status Reason Start Date Expiration Date Visits Re quested Visits Authorized [id number] 1 1 Encounter Details Date Type Department Care Team (Latest Contact Info) Description 08/21/2023 1:13 PM CDT - 08/21/2023 11:59 PM CDT Hospital Encounter Department of Radiology, [facility] in [place], [place] [address] [place] [phone] David Joy M.D. [address] [place] [phone] Discharge Disposition: Home or Self Care Social History Tobacco Use Types Packs/Day Years Used Date Smoking Tobacco: Light Smoker Smokeless Tobacco: Never Alcohol Use Standard Drinks/Week Comments Not Currently 0 (1 standard drink = 0.6 oz pur e alcohol) [facility] Utilities Answer Date Recorded In the past [...] your living situation today? I have a [facility] place to live 08/20/2023 Sex and Gender Information Value Date Recorded Sex Assigned at Female 05/14/2018 2:49 PM CEMENTER HELPER Gender Identity Female 05/14/2018 2:49 PM CEMENTER HELPER Sexual Orientation Straight 05/14/2018 2: 49 PM CEMENTER HELPER documented as of this encounter Medications at Time of Discharge Medication Sig Dispensed Refills Start Date End Date predniSONE (DELTASONE) 5 mg tabletIndications:Salter splant Renal [...] details see Order Report 1 each 08/30/2023 sxgxbk-xetmspxb-gbqgkq e (CREON) 36,000-114,000-180,[address] capsule Take 36,000 Units of lipase by mouth 4 (four) times a day. wndtksswckjt-fyns-VJ-C a-minerals (THERAPEUTIC-M) 400 mcg (folic acid) per [...] day with meals. 60 capsule 08/30/2023 09/29/2023 acetaminophen (TYLENOL) 500 mg tablet Administer 2 tablets (1,000 mg total) via gastric tube 4 (four) times a day. 07/16/2023 08/30/2023 amLODIPine (NORVASC) 10 mg tablet Administer 1 tablet (10 mg total) via gastric tube daily. 90 tablet 3 07/16/2023 08/30/2023 aspirin 81 mg chewable tablet Administer 1 tablet (81 mg total) via gastric tube daily. 36 tablet 9 07/16/2023 08/30/2023 aspirin 81 mg chewable tablet Chew 1 tablet (81 mg total) daily. 08/30/2023 09/19/2023 atorvastatin (LIPITOR) 80 mg tablet Administer 1 tablet (80 mg total) via gastric tube at bedtime. 90 tablet 3 07/16/2023 08/30/2023 bumetanide (BUMEX) 2 mg tablet Take 2 tablets (4 mg total) by mouth 2 (two) times a day. 120 tablet 08/30/2023 09/24/2023 cholecalciferol, vitamin D3, 25 mcg (1,000 Unit) tablet Administer 1 tablet (25 mcg total) via gastric tube daily. 100 tablet 3 07/16/2023 08/30/2023 diphenoxylate-atropine (LOMOTIL) 2.5-0.025 mg/5 mL liquid Administer 10 mL via gastric tube 4 (four) times a day as needed for diarrhea. 120 mL 07/16/2023 08/30/2023 diphenoxylate-atropine (LOMOTIL) 2.5-0.025 mg/5 mL liquid Take 10 mL by mouth 4 (four) times a day as needed for diarrhea. 08/30/2023 09/24/2023 lvdqwtpziyaa-ugpx-GF-C a-minerals (THERAPEUTIC-M) 400 mcg (folic acid) per tablet Administer 1 tablet via gastric tube daily. 07/16/2023 08/30/2023 mycophenolate (CELLCEPT) 250 mg capsuleIndications:Tra nsplant Renal (HCC),Immunodeficiency (HCC),Medication Therapy Collet Maker Not Anticoagulant TAKE 3 CAPSULES BY MOUTH EVERY MORNING AND 2 CAPSULES EVERY EVENING 450 capsule 3 09/03/2022 08/30/2023 mycophenolate (CELLCEPT) 250 mg capsuleIndications:Tra nsplant Renal (HCC),Immunodeficiency (HCC),Medication Therapy Mcfp Not Anticoagulant HOLD UNTIL FOLLOW UP WITH NEPHROLOGY 09/05 Do not break, cut, or open capsules. 08/30/2023 09/06/2023 pantoprazole (PROTONIX) 40 mg EC tablet Take 1 tablet (40 mg total) by mouth every morning before breakfast. 30 tablet 11 07/18/2023 08/30/2023 pantoprazole (PROTONIX) 40 mg EC tablet Take 1 tablet (40 mg total) by mouth 2 (two) times a day before breakfast and dinner. 60 tablet 2 08/30/2023 09/24/2023 QUEtiapine (SEROquel) 25 mg tablet Administer 1 tablet (25 mg total) via gastric tube at bedtime. 90 tablet 3 07/16/2023 08/30/2023 sertraline (ZOLOFT) 25 mg tablet Take 1 tablet (25 mg total) by mouth daily. 90 tablet 3 07/16/2023 09/19/2023 suvorexant 10 mg tablet Take 1 tablet (10 mg total) by mouth at bedtime as needed for sleep. 90 tablet 07/16/2023 08/30/2023 tacrolimus (PROGRAF) 0.2 mg granules in packet granules Administer 2 packets (0.4 mg total) via gastric tube every evening. 60 packet 07/16/2023 08/30/2023 tacrolimus (PROGRAF) 0.[address] 1 capsule (0.5 mg total) under the tongue 2 (two) times a day. 60 capsule 08/30/2023 09/12/2023 tacrolimus (PROGRAF) 1 mg granules in packet granules Administer 2 packets (2 mg total) via gastric tube 2 (two) times a day. 120 packet 07/16/2023 08/30/2023 torsemide (DEMADEX) 100 mg tablet Take 1 tablet (100 mg total) by mouth daily as needed if daily weight rises by more than 3lbs. If weight does not decrease, increase to 2 tablets (200 mg) and contact a physician 30 tablet 1 07/16/2023 08/30/2023 documented as of this encounter Plan of Treatment Upcoming Encounters Date Type Department Care Team (Latest Contact Info) Description 01/03/2024 2:15 PM CDT Clinical Communication Virtual Review in [place], [place] 200 [place] [phone] 01/07/2024 3:00 PM CDT Office Visit Division of Gastroenterology in [address] [phone] Hank Garner Jr., M.D. [address] [place] [address], [place] [phone] documented as of this encounter Procedures Procedure Name Priority Date/Time Associated Diagnosis Comments FL FLUORO LESS THAN 1 HOUR RAD - Routine (most inpatients and all outpatients) 08/21/2023 3:45 PM CDT documented in this encounter Results * FL Fluoro Less Than 1 Hour (08/21/2023 3:45 PM CDT) Narrative ERCP LOS RST - 08/21/2023 3:49 PM CDT This exam does not require a radiologist review or interpretation. Please refer to the patient's medical record on this date for clinical details. David Joy M.D. [employer] FLUOROSCOPY PA OCEDURES ERCP LOS RST documented in this encounter Visit Diagnoses Not on filedocumented in this encounter Additional Health Concerns Infection Onset Date Last Indicated Resolved Time Protective Environment 09/03/2022 09/03/2022 Assessment Noted Time PHQ-9 Depression Total Score: 0 07/11/19 17 12:26 PM CEMENTER HELPER documented as of this encounter Care Teams Homogenizer Operator Relationship Specialty Start Date End Date Elsewhere, Pcp PCP - General Internal Medicine 05/08/23 [facility] Laboratory Medicine 04/07/20 documented as of this encounter
--- OUTSIDE RECORDS SUMMARY | 2023-11-23 13:26 | XMS_ITS | Encounter Summary ---
Author Organization [facility] Address [address] [place] [address] Care Team Providers Care Turning And Beading Machine Operator Name Role Phone Elsewhere, Pcp Primary Care Provider Unavailabl e Encounter Details Date Type Department Care Team (Latest Contact Info) Description 08/21/2023 1:20 PM CDT Ancillary Procedure Department of Gastroenterology Social History Tobacco Use Types Packs/Day Years [...] your living situation today? I have a [facility] place to live 08/20/2023 Sex and Gender Information Value Date Recorded Sex Assigned at Female 05/14/2018 2:49 PM PLANT RELIABILITY ENGINEER Gender Identity Female 05/14/2018 2:49 PM PLANT RELIABILITY ENGINEER Sexual Orientation Straight 05/14/2018 2: 49 PM PLANT RELIABILITY ENGINEER documented as of this encounter Plan of Treatment Upcoming Encounters Date Type Department Care Team (Latest Contact Info) Description 01/03/2024 2:15 PM CDT Clinical Communication Virtual Review in [place], [place] [address] [place] [address] 01/07/2024 3:00 PM CDT Office Visit Division of Gastroenterology in [place], [place] [address] [place] [phone] Hank Garner Jr., M.D. [address] [place] [phone] documented as of this encounter Procedures Procedure Name Priority Date/Time Associated Diagnosis Comments GASTROENTEROLOGY IMAGE EXAM Routine 08/21/2023 1:20 PM CDT documented in this encounter Results * ERCP-Gastroenterology Image Exam (08/21/2023 1:20 PM CDT) 08/21/2023 1:17 PM CDT Narrative IIMS - 08/21/2023 4:30 PM CDT This order has been created [...] Total Score: 0 07/11/19 17 12:26 PM PLANT RELIABILITY ENGINEER documented as of this encounter Care Teams Turning And Beading Machine Operator Relationship Specialty Start Date End Date Elsewhere, Pcp PCP - General Internal Medicine 05/08/23 [facility] [place] [facility] Laboratory Medicine 04/07/20 documented as of this encounter
--- OUTSIDE RECORDS SUMMARY | 2023-11-23 13:26 | XMS_ITS | Encounter Summary ---
Author Organization [facility] Address [address] [place] [address] Care Team Providers Care Tube Dispatcher Name Role Phone Elsewhere, Pcp Primary Care Provider Unavailabl e Encounter Details Date Type Department Care Team (Late st Contact Info) Description 08/21/2023 10:25 AM CDT Ancillary Procedure Department of Nursing Social History Tobacco Use Types Packs/Day Years Used Date Smoking Tobacco: Light Smoker Smokeless Tobacco: Never Alcohol Use Standard Drinks/Week Comments Not Currently 0 (1 standard drink = 0.6 oz pur e alcohol) [facility] Utilities Answer Date Recorded In the [...] your living situation today? I have a [facility] place to live 08/20/2023 Sex and Gender Information Value Date Recorded Sex Assigned at Female 05/14/2018 2:49 PM TALLOW MAKER Gender Identity Female 05/14/2018 2:49 PM TALLOW MAKER Sexual Orientation Straight 05/14/2018 2: 49 PM TALLOW MAKER documented as of this encounter Plan of Treatment Upcoming Encounters Date Type Department Care Team (Latest Contact Info) Description 01/03/2024 2:15 PM CDT Clinical Communication Virtual Review in [place], [place] 200 [place] [address] 01/07/2024 3:00 PM CDT Office Visit Division of Gastroenterology in [place], [place] [address] [place] [phone] Hank Garner Jr., M.D. [address] [place] [phone] documented as of this encounter Procedures Procedure Name Priority Date/Time Associated Diagnosis Comments NURSING IMAGE EXAM Routine 08/21/2023 10 :12 AM CDT documented in this encounter Results * Video-Leg, right-Nursing Image Exam (08/21/2023 10:12 AM CDT) 08/21/2023 10:0 9 AM CDT Narrative IIMS - 08/21/2023 10:12 AM CDT This order has been created [...] Total Score: 0 07/11/19 17 12:26 PM TALLOW MAKER documented as of this encounter Care Teams Tube Dispatcher Relationship Specialty Start Date End Date Elsewhere, Pcp PCP - General Internal Medicine 05/08/23 [facility] Laboratory Medicine 04/07/20 documented as of this encounter
--- OUTSIDE RECORDS SUMMARY | 2023-11-23 13:26 | XMS_ITS | Encounter Summary ---
Author Organization [facility] Address [address] [place] [address] Care Team Providers Care Sales Representative [employer] Name Role Phone Elsewhere, Pcp Primary Care Provider Unavailabl e Reason for Referral * Outpatient (Routine) - Authorized Specialty Diagnoses / Procedures Referred By Willy ajck Referred To Contact Diagnoses Cholecystitis Procedures EGD (EsophagealGastroDuodenoscopy ) Bee Bermudez M.D. [address] [place] [phone] [facility] Referral ID Status Reason Start Date Expiration Date V isits Requested Visits Authorized [id number] Authorized 08/21/2023 08/20/2024 1 1 Encounter Details Date Type Department Care Team (Latest Contact Info) Description 08/21/2023 Orders Only Division of Gastroenterology in [place], [place] [address] [place] [phone] Bee Bermudez M.D. [address] [place] [phone] Cholecystitis (Primary Dx) Social History Tobacco Use Types Packs/Day Years Used Date Smoking Tobacco: Light Smoker Smokeless Tobacco: Never Alcohol Use Standard Drinks/Week Comments Not Currently 0 (1 standard drink = 0.6 oz pur e alcohol) [facility] Utilities Answer Date Recorded In the past 12 months has [employer], oil, or water [email or web address] threatened to shut off services in your [...] your living situation today? I have a [facility] place to live 08/20/2023 Sex and Gender Information Value Date Recorded Sex Assigned at Female 05/14/2018 2:49 PM SUBGRADE ROLLER OPERATOR Gender Identity Female 05/14/2018 2:49 PM SUBGRADE ROLLER OPERATOR Sexual Orientation Straight 05/14/2018 2: 49 PM SUBGRADE ROLLER OPERATOR documented as of this encounter Plan of Treatment Upcoming Encounters Date Type Department Care Team (Latest Contact Info) Description 01/03/2024 2:15 PM CDT Clinical Communication Virtual Review in [place], [place] [address] [place] [address] 01/07/2024 3:00 PM CDT Office Visit Division of Gastroenterology in [place], [place] [address] [place] [address] Hank Garner Jr., M.D. [address] [place] [phone] Scheduled Orders Name Type Priority Associated Diagnoses Orde r Schedule EGD (EsophagealGastroDuoden oscopy) GI Routine Cholecystitis Expected: 11/20/2023, Expires: 11/19/2024 documented as of this encounter Visit Diagnoses Diagnosis Cholecystitis- Primary documented in this encounter Additional Health Concerns Infection Onset Date Last Indicated Resolved Time Protective Environment 09/03/2022 09/03/2022 Assessment Noted Time PHQ-9 Depression Total Score: 0 07/11/19 17 12:26 PM SUBGRADE ROLLER OPERATOR documented as of this encounter Care Teams Sales Representative [employer] Relationship Specialty Start Date End Date Elsewhere, Pcp PCP - General Internal Medicine 05/08/23 [facility] Laboratory Medicine 04/07/20 documented as of this encounter
--- OUTSIDE RECORDS SUMMARY | 2023-11-23 13:26 | XMS_ITS | Encounter Summary ---
Author Organization [facility] Address [address] [place] [address] Care Team Providers Care Fish Hatchery Superintendent Name Role Phone Elsewhere, Pcp Primary Care Provider Unavailabl e Encounter Details Date Type Department Care Team (Late st Contact Info) Description 07/23/2023 Clinical Communication Department of Nutrition and Diabetes Education in [place], [place] [address] [place] [phone] Grecia Aburto, RDN, LD [address] [place] [phone] Social History Tobacco Use Types Packs/Day Years Used Date Smoking Tobacco: Light Smoker Smokeless Tobacco: Never Alcohol Use Standard Drinks/Week Comments Not Currently 0 (1 standard drink = 0.6 oz pur e alcohol) [facility] Utilities Answer Date Recorded In the past 12 months has e [employer], gas, oil, or water [employer] threatened to shut off services in [...] your living situation today? I have a [facility] place to live 08/20/2023 Sex and Gender Information Value Date Recorded Sex Assigned at Female 05/14/2018 2:49 PM TUBE MAN Gender Identity Female 05/14/2018 2:49 PM TUBE MAN Sexual Orientation Straight 05/14/2018 2: 49 PM TUBE MAN documented as of this encounter Miscellaneous Notes * Telephone Encounter - Maggie Slaughter M.S., MILLY, NIYA - 07/23/2023 11:56 AM CDT Called back and left voicemail with call back number. Also left number to call and schedule HEN appointments. documented in this encounter Plan of Treatment Upcoming Encounters Date Type Department Care Team (Latest Contact Info) Description 01/03/2024 2:15 PM CDT Clinical Communication Virtual Review in [place], [place] [address] [place] [phone] 01/07/2024 3:00 PM CDT Office Visit Division of Gastroenterology in [place], [place] [address] [place] [address] Hank Garner Jr., M.D. [address] [place] [phone] documented as of this encounter Visit Diagnoses Not on filedocumented in this encounter Additional Health Concerns Infection Onset Date Last Indicated Resolved Time Protective Environment 09/03/2022 09/03/2022 Assessment Noted Time PHQ-9 Depression Total Score: 0 07/11/19 17 12:26 PM TUBE MAN documented as of this encounter Care Teams Fish Hatchery Superintendent Relationship Specialty Start Date End Date Elsewhere, Pcp PCP - General Internal Medicine 05/08/23 [facility] Laboratory Medicine 04/07/20 documented as of this encounter
--- OUTSIDE RECORDS SUMMARY | 2023-11-23 13:26 | XMS_ITS | Encounter Summary ---
Author Organization [facility] Address [address] [place] [address] Care Team Providers Care Perfect Bind Machine Operator Name Role Phone Elsewhere, Pcp Primary Care Provider Unavailabl e Reason for Visit * Reason Comments Med Refill Encounter Details Date Type Department Care Team (Late st Contact Info) Description 07/19/2023 Refill [facility] [address] [place] [phone] Ramirez Mariscal M.D. [address] [place] [phone] Med Refill Social History Tobacco Use Types Packs/Day Years Used Date Smoking Tobacco: Light Smoker Smokeless Tobacco: Never Alcohol Use Standard Drinks/Week Comments Not Currently 0 (1 standard drink = 0.6 oz pur e alcohol) [facility] Utilities Answer Date Recorded In the past 12 months has [facility] [employer], gas, oil, or water [employer] threatened to shut off services in your [...] [facility] place to live 08/20/2023 Sex and Gender Information Value Date Recorded Sex Assigned at Female 05/14/2018 2:49 PM PLASTICS HEAT WELDER Gender Identity Female 05/14/2018 2:49 PM PLASTICS HEAT WELDER Sexual Orientation Straight 05/14/2018 2: 49 PM PLASTICS HEAT WELDER documented as of this encounter Plan of Treatment Upcoming Encounters Date Type Department Care Team (Latest Contact Info) Description 01/03/2024 2:15 PM CDT Clinical Communication Virtual Review in [place], [place] [address] [place] [address] 01/07/2024 3:00 PM CDT Office Visit Division of Gastroenterology in [place], [place] [address] [place] [phone] Hank Garner Jr., M.D. [address] [place] [phone] documented as of this encounter Visit Diagnoses Not on filedocumented in this encounter Additional Health Concerns Infection Onset Date Last Indicated Resolved Time Protective Environment 09/03/2022 09/03/2022 Assessment Noted Time PHQ-9 Depression Total Score: 0 07/11/19 17 12:26 PM PLASTICS HEAT WELDER documented as of this encounter Care Teams Perfect Bind Machine Operator Relationship Specialty Start Date End Date Elsewhere, Pcp PCP - General Internal Medicine 05/08/23 [facility] Laboratory Medicine 04/07/20 documented as of this encounter
--- OUTSIDE RECORDS SUMMARY | 2023-11-23 13:26 | XMS_ITS | Encounter Summary ---
Author Organization [facility] Address [address] [place] [address] Care Team Providers Care Packaging Line Attendant Name Role Phone Elsewhere, Pcp Primary Care Provider Unavailabl e Reason for Visit * Reason Comments Med Refill Encounter Details Date Type Department Care Team (Late st Contact Info) Description 08/20/2023 Refill Division of Community Internal Medicine, [facility] in [place], [place] [address] [place] [phone] Jt Melchor M.D. [address] [place] [phone] Med Refill Social History Tobacco Use Types Packs/Day Years Used Date Smoking Tobacco: Light Smoker Smokeless Tobacco: Never Alcohol Use Standard Drinks/Week Comments Not Currently 0 (1 standard drink = 0.6 oz pur e alcohol) [facility] Utilities Answer Date Recorded In the past 12 months has [facility] [employer], [employer], oil, or water [employer] threatened to shut off services in your [...] your living situation today? I have a [facility] place to live 08/20/2023 Sex and Gender Information Value Date Recorded Sex Assigned at Female 05/14/2018 2:49 PM DISASSEMBLER PRODUCT Gender Identity Female 05/14/2018 2:49 PM DISASSEMBLER PRODUCT Sexual Orientation Straight 05/14/2018 2: 49 PM DISASSEMBLER PRODUCT documented as of this encounter Miscellaneous Notes * Telephone Encounter - Kayli Rosenthal - 08/20/2023 10:08 AM CDT Patient is followed elsewhere documented in this encounter Plan of Treatment Upcoming Encounters Date Type Department Care Team (Latest Contact Info) Description 01/03/2024 2:15 PM CDT Clinical Communication Virtual Review in [place], [place] [address] [place] [address] 01/07/2024 3:00 PM CDT Office Visit Division of Gastroenterology in [place], [place] [address] [place] [phone] Hank Garner Jr., M.D. [address] [place] [address], [place] [phone] documented as of this encounter Visit Diagnoses Not on filedocumented in this encounter Additional Health Concerns Infection Onset Date Last Indicated Resolved Time Protective Environment 09/03/2022 09/03/2022 Assessment Noted Time PHQ-9 Depression Total Score: 0 07/11/19 17 12:26 PM DISASSEMBLER PRODUCT documented as of this encounter Care Teams Packaging Line Attendant Relationship Specialty Start Date End Date Elsewhere, Pcp PCP - General Internal Medicine 05/08/23 [facility] Laboratory Medicine 04/07/20 documented as of this encounter
--- OUTSIDE RECORDS SUMMARY | 2023-11-23 13:26 | XMS_ITS | Encounter Summary ---
Author Organization [facility] Address [address] [place] [address] Care Team Providers Care Senior Software Developer Name Role Phone Elsewhere, Pcp Primary Care Provider Unavailabl e Encounter Details Date Type Department Care Team (Late st Contact Info) Description 08/20/2023 Orders Only Otto preciado [facility] in [place], [place] [address] [place] [phone] Kayli Llanes APRN, C.N.P., D.N.P. [address] [place] [phone] Transplant Renal (HCC) (Primary Dx) Social History Tobacco Use Types Packs/Day Years Used Date Smoking Tobacco: Light Smoker Smokeless Tobacco: Never Alcohol Use Standard Drinks/Week Comments Not Currently 0 (1 standard drink = 0.6 oz pur e alcohol) [facility] Utilities Answer Date Recorded In the past 12 months has [employer], gas, oil, or water [employer] threatened to shut off services in your [...] your living situation today? I have a [facility] place to live 08/20/2023 Sex and Gender Information Value Date Recorded Sex Assigned at Female 05/14/2018 2:49 PM CRULLER MAKER MACHINE Gender Identity Female 05/14/2018 2:49 PM CRULLER MAKER MACHINE Sexual Orientation Straight 05/14/2018 2: 49 PM CRULLER MAKER MACHINE documented as of this encounter Plan of Treatment Upcoming Encounters Date Type Department Care Team (Latest Contact Info) Description 01/03/2024 2:15 PM CDT Clinical Communication Virtual Review in [place], [place] [address] [place] [address] 01/07/2024 3:00 PM CDT Office Visit Division of Gastroenterology in [place], [place] [address] [place] [phone] Hank Garner Jr., M.D. [address] [place] [phone] documented as of this encounter Visit Diagnoses Diagnosis Transplant Renal (HCC)- Primary documented in this encounter Additional Health Concerns Infection Onset Date Last Indicated Resolved Time Protective Environment 09/03/2022 09/03/2022 Assessment Noted Time PHQ-9 Depression Total Score: 0 07/11/19 17 12:26 PM CRULLER MAKER MACHINE documented as of this encounter Care Teams Senior Software Developer Relationship Specialty Start Date End Date Elsewhere, Pcp PCP - General Internal Medicine 05/08/23 [facility] Laboratory Medicine 04/07/20 documented as of this encounter
--- OUTSIDE RECORDS SUMMARY | 2023-11-23 13:26 | XMS_ITS | Encounter Summary ---
Author Organization [facility] Address [address] [place] [address] Care Team Providers Care Optical Instrument Specialist Name Role Phone Elsewhere, Pcp Primary Care Provider Unavailabl e Encounter Details Date Type Department Care Team (Late st Contact Info) Description 08/21/2023 10:15 AM CDT Ancillary Procedure Department of Nursing Social History Tobacco Use Types Packs/Day Years Used Date Smoking Tobacco: Light Smoker Smokeless Tobacco: Never Alcohol Use Standard Drinks/Week Comments Not Currently 0 (1 standard drink = 0.6 oz pur e alcohol) [facility] Utilities Answer Date Recorded In the [...] your living situation today? I have a [facility] place to live 08/20/2023 Sex and Gender Information Value Date Recorded Sex Assigned at Female 05/14/2018 2:49 PM MAITRE D' Gender Identity Female 05/14/2018 2:49 PM MAITRE D' Sexual Orientation Straight 05/14/2018 2: 49 PM MAITRE D' documented as of this encounter Plan of Treatment Upcoming Encounters Date Type Department Care Team (Latest Contact Info) Description 01/03/2024 2:15 PM CDT Clinical Communication Virtual Review in [place], [place] 200 [place] [address] 01/07/2024 3:00 PM CDT Office Visit Division of Gastroenterology in [place], [place] [address] [place] [phone] Hank Garner Jr., M.D. [address] [place] [phone] documented as of this encounter Procedures Procedure Name Priority Date/Time Associated Diagnosis Comments NURSING IMAGE EXAM Routine 08/21/2023 10 :11 AM CDT documented in this encounter Results * Head-Nursing Image Exam (08/21/2023 10:11 AM CDT) 08/21/2023 10:0 9 AM CDT Narrative [facility] - 08/21/2023 10:11 AM CDT This order has been created [...] Total Score: 0 07/11/19 17 12:26 PM MAITRE D' documented as of this encounter Care Teams Optical Instrument Specialist Relationship Specialty Start Date End Date Elsewhere, Pcp PCP - General Internal Medicine 05/08/23 [facility] [place] [facility] Laboratory Medicine 04/07/20 documented as of this encounter
--- OUTSIDE RECORDS SUMMARY | 2023-11-23 13:26 | XMS_ITS | Encounter Summary ---
Author Organization [facility] Address [address] [place] [address] Care Team Providers Care Bone Char Puller Name Role Phone Elsewhere, Pcp Primary Care Provider Unavailabl e Reason for Visit * Reason Onset Date Comments Rx Prior Authorization 07/18/2023 esomepraz ole (NexIUM) [address] capsule Encounter Details Date Type Department Care Team (Latest Contact Info) Description 07/18/2023 Clinical Communication Pharmacy Prior Auth [id number] [facility] Prior Authorization (esomeprazole (NexIUM) [address] capsule) Social History Tobacco Use Types Packs/Day Years Used Date Smoking Tobacco: Light Smoker Smokeless Tobacco: Never Alcohol Use Standard Drinks/Week Comments Not Currently 0 (1 standard drink = 0.6 oz pur e alcohol) [facility] Utilities Answer Date Recorded In the past 12 months has [facility] [employer], [employer] oil, or water [employer] threatened to shut off services in your [...] your living situation today? I have a [facility] place to live 08/20/2023 Sex and Gender Information Value Date Recorded Sex Assigned at Female 05/14/2018 2:49 PM EMBROIDERY ASSISTANT Gender Identity Female 05/14/2018 2:49 PM EMBROIDERY ASSISTANT Sexual Orientation Straight 05/14/2018 2: 49 PM EMBROIDERY ASSISTANT documented as of this encounter Plan of Treatment Upcoming Encounters Date Type Department Care Team (Latest Contact Info) Description 01/03/2024 2:15 PM CDT Clinical Communication Virtual Review in [place], [place] [address] [place] [phone] 01/07/2024 3:00 PM CDT Office Visit Division of Gastroenterology in [place], [place] [address] [place] [address] Hank Garner Jr., M.D. [address] [place] [phone] documented as of this encounter Visit Diagnoses Not on filedocumented in this encounter Additional Health Concerns Infection Onset Date Last Indicated Resolved Time Protective Environment 09/03/2022 09/03/2022 Assessment Noted Time PHQ-9 Depression Total Score: 0 07/11/19 17 12:26 PM EMBROIDERY ASSISTANT documented as of this encounter Care Teams Bone Char Puller Relationship Specialty Start Date End Date Elsewhere, Pcp PCP - General Internal Medicine 05/08/23 [facility] Laboratory Medicine 04/07/20 documented as of this encounter
--- OUTSIDE RECORDS SUMMARY | 2023-11-23 13:26 | XMS_ITS | Encounter Summary ---
Author Organization [facility] Address [address] [place] [address] Care Team Providers Care Tool And Production Planner Name Role Phone Elsewhere, Pcp Primary Care Provider Unavailabl e Encounter Details Date Type Department Care Team (Late st Contact Info) Description 08/20/2023 8:40 PM CDT Ancillary Procedure Department of Radiology in [place], [place] [address] [place] [phone] Dean Whitten M.B.B.S., M.S. Social History Tobacco Use Types Packs/Day Years Used Date Smoking Tobacco: Light Smoker Smokeless Tobacco: Never Alcohol Use Standard Drinks/Week Comments Not Currently 0 (1 standard drink = 0.6 oz pur e alcohol) [facility] Utilities Answer Date Recorded In the past 12 months has e [employer], gas, oil, or water [employer] threatened to shut off services in your [...] living situation today? I have a [facility] place to live 08/20/2023 Sex and Gender Information Value Date Recorded Sex Assigned at Female 05/14/2018 2:49 PM PSYCHOLOGICAL OPERATIONS SPECIALIST Gender Identity Female 05/14/2018 2:49 PM PSYCHOLOGICAL OPERATIONS SPECIALIST Sexual Orientation Straight 05/14/2018 2: 49 PM PSYCHOLOGICAL OPERATIONS SPECIALIST documented as of this encounter Plan of Treatment Upcoming Encounters Date Type Department Care Team (Latest Contact Info) Description 01/03/2024 2:15 PM CDT Clinical Communication Virtual Review in [place], [place] [address] [place] [address] 01/07/2024 3:00 PM CDT Office Visit Division of Gastroenterology in [place], [place] [address] [place] [phone] Hank Garner Jr., M.D. [address] [place] [phone] documented as of this encounter Procedures Procedure Name Priority Date/Time Associated Diagnosis Comments INTERPRETATION OF OUTSIDE US ABDOMEN AND OR PELVIS RAD - Routine (most inpatients and all outpatients) 08/21/2023 6:25 AM CDT documented in this encounter Results * Interpretation of Outside US Abdomen and [...] recommend clinical correlation. If indicated, consider repeat [facility] gallbladder ultrasound and/or nuclear medicine HIDA scan for further assessment. 2. Extrahepatic duct measures minimally prominent for patient age with evidence of tapering distally. No intrahepatic biliary ductal dilatation. Findings were discussed with Dr. Bee Bermudez ??([id number]) at 08/21/2023 1:11 PM. Narrative 08/21/2023 2:46 PM CDT EXAM: ??INTERPRETATION OF OUTSIDE US ABDOMEN AND OR PELVIS Outside limited abdominal ultrasound 08/20/2023 COMPARISON: ??Outside CT abdomen and pelvis 08/19/2023 and [facility] CT abdomen and pelvis 06/22/2023 FINDINGS: Gallbladder: Cholelithiasis (as also seen on noncontrast CT 06/22/2023). Gallbladder wall thickness measures upper normal/borderline thickened at 3 mm. A positive sonographic Isaac's sign is noted in the marine habitat resource specialist's notation and included with the original interpretation [...] Outside CT abdomen and pelvis 08/19/2023 and [facility] CTabdomen and pelvis 06/22/2023 FINDINGS: Gallbladder: Cholelithiasis (as also seen on noncontrast CT 06/22/2023).Gallbladder wall thickness measures upper normal/borderline thickened at 3mm. A positive sonographic Isaac's sign is noted in the marine habitat resource specialist'snotation and included with the original interpretation of [...] however,recommend clinical correlation. If indicated, consider repeat [facility] ultrasound and/or nuclear medicine HIDA scan for further assessment. 2. Extrahepatic duct measures minimally prominent for patient age withevidence of tapering distally. No intrahepatic biliary ductaldilatation. Findings were discussed with Dr. Bee Bermudez ([id number]) at 08/21/2023 1:11PM. Dean Ventura., M.S. IMG US PROCEDURES documented in this encounter Visit Diagnoses Not on filedocumented in this encounter Additional Health Concerns Infection Onset Date Last Indicated Resolved Time Protective Environment 09/03/2022 09/03/2022 Assessment Noted Time PHQ-9 Depression Total Score: 0 07/11/19 17 12:26 PM PSYCHOLOGICAL OPERATIONS SPECIALIST documented as of this encounter Care Teams Tool And Production Planner Relationship Specialty Start Date End Date Elsewhere, Pcp PCP - General Internal Medicine 05/08/23 [facility] Laboratory Medicine 04/07/20 documented as of this encounter
--- OUTSIDE RECORDS SUMMARY | 2023-11-23 13:26 | XMS_ITS | Encounter Summary ---
Author Organization [facility] Address [address] [place] [address] Care Team Providers Care Electrical Equipment Assembler Name Role Phone Elsewhere, Pcp Primary Care Provider Unavailabl e Encounter Details Date Type Department Care Team (Late st Contact Info) Description 07/26/2023 Clinical Communication Division of Community Internal Medicine, [facility], in [place], [place] [address] [place] [phone] Ramirez Mariscal M.D. [address] [place] [phone] Social History Tobacco Use Types Packs/Day Years Used Date Smoking Tobacco: Light Smoker Smokeless Tobacco: Never Alcohol Use Standard Drinks/Week Comments Not Currently 0 (1 standard drink = 0.6 oz pur e alcohol) [facility] Utilities Answer Date Recorded In the past 12 months has [facility], gas, oil, or water [employer] threatened to shut off services in your [...] your living situation today? I have a [facility] place to live 08/20/2023 Sex and Gender Information Value Date Recorded Sex Assigned at Female 05/14/2018 2:49 PM TEMPERER Gender Identity Female 05/14/2018 2:49 PM TEMPERER Sexual Orientation Straight 05/14/2018 2: 49 PM TEMPERER documented as of this encounter Plan of Treatment Upcoming Encounters Date Type Department Care Team (Latest Contact Info) Description 01/03/2024 2:15 PM CDT Clinical Communication Virtual Review in [place], [place] [address] [place] [phone] 01/07/2024 3:00 PM CDT Office Visit Division of Gastroenterology in [place], [place] [address] [place] [address] Hank Garner Jr., M.D. [address] [place] [phone] documented as of this encounter Visit Diagnoses Not on filedocumented in this encounter Additional Health Concerns Infection Onset Date Last Indicated Resolved Time Protective Environment 09/03/2022 09/03/2022 Assessment Noted Time PHQ-9 Depression Total Score: 0 07/11/19 17 12:26 PM TEMPERER documented as of this encounter Care Teams Electrical Equipment Assembler Relationship Specialty Start Date End Date Elsewhere, Pcp PCP - General Internal Medicine 05/08/23 [facility] Laboratory Medicine 04/07/20 documented as of this encounter
--- OUTSIDE RECORDS SUMMARY | 2023-11-23 13:26 | XMS_ITS | Encounter Summary ---
Author Organization [facility] Address [address] [place] [address] Care Team Providers Care Mulcher Operator Name Role Phone Elsewhere, Pcp Primary Care Provider Unavailabl e Encounter Details Date Type Department Care Team (Latest Contact Info) Description 08/22/2023 7:10 AM CDT Ancillary Procedure Department of Gastroenterology Social History Tobacco Use Types Packs/Day Years Used Date Smoking Tobacco: Light Smoker Smokeless Tobacco: Never Alcohol Use Standard Drinks/Week Comments Not Currently 0 (1 standard drink = 0.6 oz pur e alcohol) [facility] Utilities Answer Date Recorded In the [...] living situation today? I have a [facility] place to live 08/20/2023 Sex and Gender Information Value Date Recorded Sex Assigned at Female 05/14/2018 2:49 PM INSTITUTION LIBRARIAN Gender Identity Female 05/14/2018 2:49 PM INSTITUTION LIBRARIAN Sexual Orientation Straight 05/14/2018 2: 49 PM INSTITUTION LIBRARIAN documented as of this encounter Plan of Treatment Upcoming Encounters Date Type Department Care Team (Latest Contact Info) Description 01/03/2024 2:15 PM CDT Clinical Communication Virtual Review in [place], [place] 200 [place] [address] 01/07/2024 3:00 PM CDT Office Visit Division of Gastroenterology in [place], [place] [address] [place] [phone] Hank Garner Jr., M.D. [address] [place] [phone] documented as of this encounter Procedures Procedure Name Priority Date/Time Associated Diagnosis Comments GASTROENTEROLOGY IMAGE EXAM Routine 08/22/2023 7:10 AM CDT documented in this encounter Results * Coccyx-Gastroenterology Image Exam (08/22/2023 7:10 AM CDT) 08/22/2023 7:08 AM CDT Narrative IIMS - 08/22/2023 7:10 AM CDT This order has been created [...] Total Score: 0 07/11/19 17 12:26 PM INSTITUTION LIBRARIAN documented as of this encounter Care Teams Mulcher Operator Relationship Specialty Start Date End Date Elsewhere, Pcp PCP - General Internal Medicine 05/08/23 [facility] Laboratory Medicine 04/07/20 documented as of this encounter
--- OUTSIDE RECORDS SUMMARY | 2023-11-23 13:26 | XMS_ITS ---
Author Organization [facility] Address [address] [place] [address] Care Team Providers Care Leather Roller Name Role Phone Elsewhere, Pcp Primary Care Provider Unavailabl e Transplant Episode Kidney Recipient [facility] ([place], [place]) - [facility] Organ Received: Left Kidney Transplanted on 06/21/2016 Marked as Active Follow-up on 06/21/2016 Kidney CoordinatorTXP POST KIDNEY NURSE TEAM 1 [facility] Phone: N/A Fax: N/A Email: N/A Telida Organ Diagnosis Organ Primary Contributory Kidney Chronic Glomerulonephritis - Uns pecified Retransplant Diagnosis Organ Primary Contributory Kidney Chronic Glomerulonephritis - Uns pecified Rejection History Noted Survival Rejection Treatment Biopsy Resolved 10/25/2016 126 days Rejection Kidney Transplant (HCC) 08/17/2020 Infection History Noted Survival Infection Treatment Organism Resolved 09/19/2023 7 years 3 months Gallstone Without Obstruction 08/20/2023 7 years 2 months Cholecystitis Donor Information Organ ABO Source Meets Risk Criteria HLA Match Mismatches Cross Match Left Kidney Transplanted A Pos Live A: B: DR: Left Kidney Donor Serology Results Anti-HBcAb HBC Total: Negative HBsAg HBsAg: Negative HBsAb HBsAb: Negative HBsAb Cayetano: <5.0 HBV DNA HBV DNA: Undetected Anti-HCV HCV Ab: Negative HCV RNA No results on file HAV HAV - Total Antibody: Negative Anti-HIV I/II HIV Ab: Negative HIV RNA HIV RNA: Undetected Anti-HTLV I/II No results on file Coccidioides Cocci Imm IgG: Negative Cocci Imm IgM: Negative Cocci Comp Fix: Negative Anti-CMV CMV IgG: Negative CMV IgM: Negative Quantiferon TB No results on file EBV Total No results on file EBV IgG EBV VCA IgG: Positive EBV IgM EBV VCA IgM: Negative EBNA EBV DNA: Negative Measles No results on file Mumps No results on file Rubella No results on file Varicella Zoster Varicella Zoster IgG: Positive Varicella Zoster IgM: Negative Varicella IgG Antibody Index: 3.1 HSV 1 HSV 1 IgG: Positive HSV 1 IgM: Reactive HSV 2 HSV 2 IgG: Negative Toxoplas ma No results on file Cryptococcus Ag Cryptococcus Ag: Negative Histoplasma Histoplasma Yeast: Negative Histoplasma Mycelial: Negative Strongyloides No results on file Schistosoma No results on file Trypanosoma cruzi No results on file RPR/VDRL No results on file Syphilis No results on file RSV No results on file SARS CoV-2 No results on file HBV DORINA No results on file HCV DORINA No results on file Care Team Name Role Phone Fax Email TXP POST KIDNEY NURSE TEAM 1 PSYCHIATRIC Kidney Coordinator N/A N/A N/A Tammy Moreira M.D. Transplant External Managing Education And Training Coordinator N/A N/A N/A Events Post-Transplant Pre-Transplant Admitted: 06/21/2016 Referred: 08/20/2013 Transplanted: 06/21/2016 Evaluation began: 4 Discharged: 06/24/2016 Center waitlisted: 4 Dialysis History Dialysis History Start End Type Comments Center 01/24/2014 06/21/2016 [facility] 06/20/2005 [facility] Information Center Phone Fax Address [facility] [phone] [facility] [phone]
--- OUTSIDE RECORDS SUMMARY | 2023-11-23 13:26 | XMS_ITS | Encounter Summary ---
Author Organization [facility] Address [address] [place] [address] Care Team Providers Care Manager Studio Name Role Phone Elsewhere, Pcp Primary Care Provider Unavailabl e Encounter Details Date Type Department Care Team (Late st Contact Info) Description 08/21/2023 10:20 AM CDT Ancillary Procedure Department of Nursing [...] your living situation today? I have a [facility] place to live 08/20/2023 Sex and Gender Information Value Date Recorded Sex Assigned at Female 05/14/2018 2:49 PM TELLER SUPERVISOR Gender Identity Female 05/14/2018 2:49 PM TELLER SUPERVISOR Sexual Orientation Straight 05/14/2018 2: 49 PM TELLER SUPERVISOR documented as of this encounter Plan of Treatment Upcoming Encounters Date Type Department Care Team (Latest Contact Info) Description 01/03/2024 2:15 PM CDT Clinical Communication Virtual Review in [place], [place] 200 [place] [phone] 01/07/2024 3:00 PM CDT Office Visit Division of Gastroenterology in [place], [place] [address] [place] [phone] Hank Garner Jr., M.D. [address] [place] [phone] documented as of this encounter Procedures Procedure Name Priority Date/Time Associated Diagnosis Comments NURSING IMAGE EXAM Routine 08/21/2023 10 :11 AM CDT documented in this encounter Results * Leg, right-Nursing Image Exam (08/21/2023 10:11 AM CDT) 08/21/2023 [...] Total Score: 0 07/11/19 17 12:26 PM TELLER SUPERVISOR documented as of this encounter Care Teams Manager Studio Relationship Specialty Start Date End Date Elsewhere, Pcp PCP - General Internal Medicine 05/08/23 [facility] Laboratory Medicine 04/07/20 documented as of this encounter
--- OUTSIDE RECORDS SUMMARY | 2023-11-23 13:26 | XMS_ITS | Encounter Summary ---
Author Organization [facility] Address [address] [place] [address] Care Team Providers Care Loop Puller Name Role Phone Elsewhere, Pcp Primary Care Provider Unavailabl e Encounter Details Date Type Department Care Team (Late st Contact Info) Description 08/21/2023 10:10 AM CDT Ancillary Procedure Department of Nursing Social History Tobacco Use Types Packs/Day Years Used Date Smoking Tobacco: Light Smoker Smokeless Tobacco: Never Alcohol Use Standard Drinks/Week Comments Not Currently 0 (1 standard drink = 0.6 oz pur e alcohol) [facility] Utilities Answer Date Recorded In the [...] your living situation today? I have a [facility] place to live 08/20/2023 Sex and Gender Information Value Date Recorded Sex Assigned at Female 05/14/2018 2:49 PM HYDRAULIC PRESS TENDER Gender Identity Female 05/14/2018 2:49 PM HYDRAULIC PRESS TENDER Sexual Orientation Straight 05/14/2018 2: 49 PM HYDRAULIC PRESS TENDER documented as of this encounter Plan of Treatment Upcoming Encounters Date Type Department Care Team (Latest Contact Info) Description 01/03/2024 2:15 PM CDT Clinical Communication Virtual Review in [place], [place] 200 [place] [phone] 01/07/2024 3:00 PM CDT Office Visit Division of Gastroenterology in [place], [place] [address] [place] [phone] Hank Garner Jr., M.D. [address] [place] [phone] documented as of this encounter Procedures Procedure Name Priority Date/Time Associated Diagnosis Comments NURSING IMAGE EXAM Routine 08/21/2023 10 :10 AM CDT documented in this encounter Results * Coccyx-Nursing Image Exam (08/21/2023 10:10 AM CDT) 08/21/2023 10:0 9 AM CDT [...] Total Score: 0 07/11/19 17 12:26 PM HYDRAULIC PRESS TENDER documented as of this encounter Care Teams Loop Puller Relationship Specialty Start Date End Date Elsewhere, Pcp PCP - General Internal Medicine 05/08/23 [facility] Laboratory Medicine 04/07/20 documented as of this encounter
--- OUTSIDE RECORDS SUMMARY | 2023-11-23 13:26 | XMS_ITS | Encounter Summary ---
Author Organization [facility] Address [address] [place] [phone] Care Team Providers Care Satellite Tv Technician Installer Name Role Phone Elsewhere, Pcp Primary Care Provider Unavailabl e Encounter Details Date Type Department Care Team (Late st Contact Info) Description 10/20/2008 Historical Ophthalmology [facility] Betty Gallardo M.D. [address] [place] [phone] Social History Tobacco Use Types Packs/Day Years Used Date Smoking Tobacco: Never Assessed Sex and Gender Information Value Date Recorded Sex Assigned at Female 05/14/2018 2:49 PM CLOTHES MARKER Gender Identity Female 05/14/2018 2:49 PM CLOTHES MARKER Sexual Orientation Straight 05/14/2018 2: 49 PM CLOTHES MARKER documented as of this encounter Progress Notes * Betty Gallardo M.D. - 10/20/2008 3:15 PM CDT Eye General CHIEF COMPLAINT blurred vision left eye, S/P kidney transplant 2006 HISTORY OF PRESENT ILLNESS Patient to see Dr. Gallardo today regarding cataract surgery. Patient was told she has a cataract in her left eye. The patient describes blurred vision in left eye for the past 5 months, which is constant, severe and occurs all the time. See's a shadow around images in her left eye, yard lights have a halo around them. Denies floaters. She believes that the cataract was caused by the prednisone she is still currently taking, S/P kidney transplant 2006. Right eye good. No complaints right eye. 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 #2 Choroidal nevi, both eyes Plan: observe DIAGNOSIS #1 Cataract, left>>right #2 Choroidal nevi, both eyes CDM Reports - EYEGEN Id: [id number] Status: Fnl documented in this encounter Plan of Treatment Upcoming Encounters Date Type Department Care Team (Latest Contact Info) Description 01/03/2024 2:15 PM CDT Clinical Communication Virtual Review in [place], [place] 200 [place] [address] 01/07/2024 3:00 PM CDT Office Visit Division of Gastroenterology in [place], [place] [address] [place] [phone] Hank Garner Jr., M.D. [address] [place] [phone] documented as of this encounter Visit Diagnoses Not on filedocumented in this encounter Additional Health Concerns Infection Onset Date Last Indicated Resolved Time Protective Environment 09/03/2022 09/03/2022 COVID19 Comment:Completed 20 day isolation today 05/1905/12/2023 05/12/2023 05/19/2023 5:[address] COVID19 Pending 06/17/2023 06/18/2023 06/18/2023 8 :50 AM CLOTHES MARKER C. difficile 09/21/2023 09/21/2023 10/19/2023 5:38 AM CDT Assessment Noted Time PHQ-9 Depression Total Score: 2 06/17/19 09 12:13 PM CLOTHES MARKER documented as of this encounter Care Teams Satellite Tv Technician Installer Relationship Specialty Start Date End Date Elsewhere, Pcp PCP - General Internal Medicine 05/08/[address], [address], [place], [place] [address] Laboratory Medicine 03/01/20 04/06/20 [facility] Laboratory Medicine 04/07/20 documented as of this encounter
--- OUTSIDE RECORDS SUMMARY | 2023-11-23 13:26 | XMS_ITS | Encounter Summary ---
Author Organization [facility] Address [address] [place] [address] Care Team Providers Care Adjuster Name Role Phone Elsewhere, Pcp Primary Care Provider Unavailabl e Encounter Details Date Type Department Care Team (Latest Contact Info) Description 08/20/2023 Intake [facility] Social History Tobacco Use Types Packs/Day Years Used Date Smoking Tobacco: Light Smoker Smokeless Tobacco: Never Alcohol Use Standard Drinks/Week Comments Not Currently 0 (1 standard drink = 0.6 oz pur e alcohol) [facility] Utilities Answer Date Recorded In the [...] [facility] live 08/20/2023 Sex and Gender Information Value Date Recorded Sex Assigned at Female 05/14/2018 2:49 PM KILN FIREMAN Gender Identity Female 05/14/2018 2:49 PM KILN FIREMAN Sexual Orientation Straight 05/14/2018 2: 49 PM KILN FIREMAN documented as of this encounter Last Filed Vital Signs Vital Sign Reading Time Taken Comments Blood Pressure 114/66 08/20/2023 8:14 PM CDT Pulse 58 08/20/2023 8:14 PM CDT Temperature - - Respiratory Rate 13 08/20/2023 8:14 PM CDT Oxygen Saturation 88% 08/20/2023 8:14 PM CDT Inhaled Oxygen Concentration - - Weight - - Height - - Body Mass Index - - documented in this encounter Progress Notes * Liv Persaud L.I.C.SDeng., M.S.W. - 08/20/2023 10:03 AM CDT [facility]: ATC referral SUBJECTIVE Referral received from Admissions and Transfer Center on 08/20/23, as part of hospital transfer request from [facility], [place], [place] (phone: [phone]). OBJECTIVE This patient was not accepted for transfer prior to the assessment process. This is a 68 y.o. year old female from [address] [place] [phone]. The physician is requesting transfer. The patient and family is aware of, and agrees with, the request to transfer. Reason for transfer request: She is not a surgical candidate, they are unable to place a drain. Patient is alert and oriented, able to make their own decisions. Referring facility reports the following information: Oxygen: Patient is requiring supplemental oxygen via nasal cannula; 1-2 L Bariatric equipment: Patient does not require bariatric equipment. Mobility: Utilizes front wheeled walker for short distances and wheelchair for long distances ADLs: Patient requires assistance with the following activities of daily living: mobility, dressing, toileting, bathing, meal prep, medication set up/administration, housekeeping, shopping, and transportation Prior to admission, the patient was living at home with the following services in place: [facility] providing longterm care, VS monitoring, wound care, lab monitoring, and unskilled nursing care, DREDGE WORKER/MEDICAL SERVICES MANAGER services to include bathing, dressing, ambulation throughout the home. [facility] for tube feed supplies [facility] for homegoing oxygen supplies Wound care: Pressure Injury Coccyx: Dressing changes daily and PRN. 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 Leave open to air or pad/protect site with Mepilex lite PRN Multiple Skin tear Bilateral Lower Extremities: Dressing changes every three days and PRN Skin Tear Arm Bilateral: Dressing changes BID and PRN Diet: G tube Isolation precautions: No concerns Dialysis: None IV Antibiotics: None Behavioral concerns: No concerns Psychiatric concerns: No concerns Legal concerns: No concerns Financial concerns: No concerns Family concerns: No concerns Multiple hospitalizations: Hospitalized [facility] from 05/08-07/16/2023 for Acute Respiratory Failure With Hypoxia Patient has the following supports: Spouse and Son Anticipated discharge disposition according to referring facility: TBD ASSESSMENT / PLAN It appears that some barriers to discharge planning have been identified as noted above. PLAN: I have discussed that in the event the patient is transferred here the social cost of travel such as lodging, meals, and transport home are the personal responsibility of the patient and family. Theyhave agreed to relay this information to the family. I have discussed and initiated the transfer agreement. In the event that the patient is transferredhere I will notify the floor dialysis social worker to follow up as needed. Sabine GriderS.W., M.S.W. 08/20/2023 documented in this encounter Plan of Treatment Upcoming Encounters Date Type Department Care Team (Latest Contact Info) Description 01/03/2024 2:15 PM CDT Clinical Communication Virtual Review in [place], [place] [address] [place] [phone] 01/07/2024 3:00 PM CDT Office Visit Division of Gastroenterology in [place], [place] [address] [place] [phone] Hank Garner Jr., M.D. [address] [place] [phone] documented as of this encounter Visit Diagnoses Not on filedocumented in this encounter Additional Health Concerns Infection Onset Date Last Indicated Resolved Time Protective Environment 09/03/2022 09/03/2022 C. difficile 09/21/2023 09/21/2023 10/19/2023 5:38 AM CDT Assessment Noted Time PHQ-9 Depression Total Score: 0 07/11/19 17 12:26 PM KILN FIREMAN documented as of this encounter Care Teams Adjuster Relationship Specialty Start Date End Date Elsewhere, Pcp PCP - General Internal Medicine 05/08/23 [facility] Laboratory Medicine 04/07/20 documented as of this encounter
--- OUTSIDE RECORDS SUMMARY | 2023-11-23 13:26 | XMS_ITS | Encounter Summary ---
Author Organization [facility] Address [address] [place] [address] Care Team Providers Care Pasting Machine Offbearer Name Role Phone Elsewhere, Pcp Primary Care Provider Unavailabl e Encounter Details Date Type Department Care Team (Late st Contact Info) Description 08/20/2023 8:40 PM CDT Ancillary Procedure Department of Radiology in [place], [place] [address] [place] [phone] Dean Whitten M.B.B.S., M.S. Social History Tobacco Use Types Packs/Day Years Used Date Smoking Tobacco: Light Smoker Smokeless Tobacco: Never Alcohol Use Standard Drinks/Week Comments Not Currently 0 (1 standard drink = 0.6 oz pur e alcohol) [facility] Utilities Answer Date Recorded In the past 12 months has e [employer], gas, oil, or water [employer] threatened to shut off services in your [...] have [facility] place to live 08/20/2023 Sex and Gender Information Value Date Recorded Sex Assigned at Female 05/14/2018 2:49 PM LIME BURNER Gender Identity Female 05/14/2018 2:49 PM LIME BURNER Sexual Orientation Straight 05/14/2018 2: 49 PM LIME BURNER documented as of this encounter Plan of Treatment Upcoming Encounters Date Type Department Care Team (Latest Contact Info) Description 01/03/2024 2:15 PM CDT Clinical Communication Virtual Review in [place], [place] [address] [place] [phone] 01/07/2024 3:00 PM CDT Office Visit Division of Gastroenterology in [place], [place] [address] [place] [phone] Hank Garner Jr., M.D. [address] [place] [phone] documented as of this encounter Procedures Procedure Name Priority Date/Time Associated Diagnosis Comments INTERPRETATION OF OUTSIDE CT ABDOMEN AND OR PELVIS RAD - Routine (most inpatients and all outpatients) 08/21/2023 6:25 AM CDT documented in this encounter Results * Interpretation of Outside CT Abdomen and [...] stone or mass is identified. 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 COMPARISON: Outside noncontrast CT 06/22/2023. FINDINGS: Near complete interval resolution of the previously seen small amount ofascites. Cholelithiasis. The gallbladder is distended, but there is nodefinite gallbladder wall thickening. Mild extrahepatic and centralintrahepatic biliary duct dilatation with the common bile duct measuring 9 mm in diameter. No obstructing radiopaquestone or mass is identified. 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 There is also an atrophic nonfunctioning renal allograft in theright lower quadrant. Colonic diverticulosis without evidence fordiverticulitis. Marked arteriovascular calcifications in the abdomen and pelvis. Abdominal aortic aneurysm, whichmeasures 5.0 cm in maximal AP diameter and contains mural thrombus (, image 64). Percutaneous gastrostomy tube. New large [...] improved. Dean Ventura., M.S. IMG CT PROCEDURES documented in this encounter Visit Diagnoses Not on filedocumented in this encounter Additional Health Concerns Infection Onset Date Last Indicated Resolved Time Protective Environment 09/03/2022 09/03/2022 Assessment Noted Time PHQ-9 Depression Total Score: 0 07/11/19 17 12:26 PM LIME BURNER documented as of this encounter Care Teams Pasting Machine Offbearer Relationship Specialty Start Date End Date Elsewhere, Pcp PCP - General Internal Medicine 05/08/23 [facility] Laboratory Medicine 04/07/20 documented as of this encounter
--- NOTE | 2023-11-23 13:28 | ED.GENADULT ---
HPI - General Adult General Chief complaint: Unspecified Complaint, Adult Stated complaint: NG tube fell out of stomach Time Seen by Provider: 11/23/23 12:57 History of Present Illness HPI narrative: 68-year-old female has had multiple medical issues, cared for at the [facility], she has had acute cholecystitis, she has had some pressure ulcers, she has a history of being immunocompromised and a kidney transplant. The patient was hospitalized at [facility] early in the year for several weeks it sounds like and had a G-tube placed as she was unable to eat. No she is not using the G-tube she is able to eat. Unfortunately that she G-tube came out today and they were trying to contact the clinic but they were unable to get an answer whether they need this replaced her nothing came to the ER. The patient would like not to have the G-tube back as Related Data Home Medications ?Medication ?Instructions ?Recorded ?Confirmed acetaminophen 500 mg capsule 1,000 mg feeding tube QID 07/22/23 08/20/23 loperamide 2 mg capsule 2 mg feeding tube QID PRN 07/22/23 08/19/23 quetiapine 25 mg tablet (Seroquel) 25 mg feeding tube HS PRN 07/22/23 08/19/23 sertraline 25 mg tablet 25 mg feeding tube DAILY 07/22/23 08/19/23 torsemide 100 mg tablet 100 mg PO DAILY PRN 07/22/23 08/19/23 amlodipine 10 mg tablet 10 mg feeding tube DAILY 08/08/23 08/19/23 aspirin 81 mg chewable tablet 1 tab feeding tube DAILY 08/19/23 08/19/23 cholecalciferol (vitamin D3) 25 25 mcg feeding tube DAILY 08/19/23 08/19/23 mcg (1,000 unit) tablet collagenase clostridium histo. 250 1 applic topical DAILY 08/19/23 08/19/23 unit/gram topical ointment (Santyl) multivitamin (Daily Multi-Vitamin 1 tab feeding tube DAILY 08/19/23 08/19/23 tablet) mycophenolate mofetil 250 mg 750 mg PO DAILY 08/19/23 08/19/23 capsule mycophenolate mofetil 250 mg 500 mg PO HS 08/19/23 08/19/23 capsule (CellCept) ondansetron 4 mg disintegrating 4 mg PO DAILY 08/19/23 08/19/23 tablet pantoprazole 40 mg tablet,delayed 40 mg PO DAILY 08/19/23 08/19/23 release prednisone 5 mg tablet 5 mg feeding tube DAILY 08/19/23 08/19/23 tacrolimus 0.2 mg oral granules in 0.4 mg PO HS 08/19/23 08/19/23 packet (Prograf) atorvastatin 80 mg tablet 80 mg feeding tube HS 08/20/23 08/20/23 diphenoxylate-atropine 2.5 5 ml feeding tube Q6H PRN 08/20/23 08/20/23 mg-0.025 mg/5 mL oral liquid suvorexant 10 mg tablet (Belsomra) 10 mg PO HS PRN 08/20/23 08/20/23 tacrolimus 1 mg oral granules in 2 mg feeding tube Q12H 08/20/23 08/20/23 packet (Prograf) Previous Rx's ?Medication ?Instructions ?Recorded rafaeq-[id number]-[id number] 1 cap PO QID #360 caps 09/16/23 36,000-114,000-180,000 unit capsule,delay rel (Creon) Allergies Allergy/AdvReac Type Severity Reaction Status Date / Time No Known Drug Allergies Allergy Verified 11/23/23 12:57 Review of Systems Status of ROS: Reports: 6 or more systems reviewed and unremarkable except as noted in History and below [facility] Medical History History of hypertension ?Z86.79 - Personal history of other diseases of the circulatory system (ICD-10) History of atrial fibrillation ?Z86.79 - Personal history of other diseases of the circulatory system (ICD-10) Surgical History History of heart artery stent (2005) ?Z95.5 - Presence of coronary angioplasty implant and graft (ICD-10) History of parathyroidectomy ?E89.2 - Postprocedural hypoparathyroidism (ICD-10) History of basal cell carcinoma excision ?Z98.890 - Other specified postprocedural states (ICD-10) ?Z85.828 - Personal history of other malignant neoplasm of skin (ICD-10) History of squamous cell carcinoma excision ?Z98.890 - Other specified postprocedural states (ICD-10) ?Z85.9 - Personal history of malignant neoplasm, unspecified (ICD-10) History of kidney transplant ?Z94.0 - Kidney transplant status (ICD-10) Family History Mother High blood pressure Colon cancer, Onset Age: 50 Diabetes Alcohol dependence Father Heart disease Social History Narrative: Sangita lives with in [place], has 4 adult children. Quit smoking recently. On admission 08/19/23, she and family request Full Code status. What is your current living situation?: I presently have a place to live Problems where you live: no known problems Problems where you live details: n/a In the past 12 months, utilities in danger of being shut off: no In past 12 months, lack of transportation kept you from medical appts, meetings, work, or getting things needed for daily living: no In the past 12 mos, have been you worried that your food would run out before you had money to buy more?: never true In the past 12 mos, the food you bought just didn't last and you didn't have money to buy more?: never true Smoking Status: Current every day smoker What tobacco products do you use: cigarettes Smoking quit date/years: <= 15 years ago Do you use any of these nicotine containing products: None Second hand tobacco smoke exposure: No How often do you have a drink containing alcohol: never AUDIT-C Alcohol total score: 0 Non-prescribed substance use: denies use Caffeine: Yes (2 cups of coffee a day) How often does anyone, including family, friends and others, physically hurt you: never How often does anyone, including family, friends and others, insult or talk down to you: never How often does anyone, including family, friends and others, threaten you with harm: never How often does anyone, including family, friends and others, scream or curse at you: never Little interest or pleasure in doing things: not at all Feeling down, depressed, or hopeless: not at all service: No Exam Narrative: Exam Narrative: Vital signs are recorded, systolic blood pressure is elevated at 184 G-tube site shows no cellulitis or irritation the G-tube was extruded in its entirety Const: Vital Signs, click to edit/add: Vital Signs - 24 hr 11/23/23 12:57 11/23/23 13:29 11/23/23 13:30 Temperature 98.6 F Pulse Rate 48 L 48 L Pulse Rate [Pulse Oximeter] 52 L Respiratory Rate 16 Blood Pressure Blood Pressure [Ri ght Upper Arm] 184/76 H Pulse Oximetry 97 96 97 Oxygen Delivery Me thod Room Air 11/23/23 13:32 Temperature Pulse Rate 49 L Pulse Rate [Pulse Oximeter] Respiratory Rate Blood Pressure 178/71 H Blood Pressure [Ri ght Upper Arm] Pulse Oximetry 96 Oxygen Delivery Me thod Course Vital Signs Vital signs: Initial Vital Signs Temperature 98.6 F 11/23/23 12:57 Temperature Source Temporal Artery Scan 11/23/23 12:57 Pulse Rate 52 L 11/23/23 12:57 Respiratory Rate 16 11/23/23 12:57 Blood Pressure 184/76 H 11/23/23 12:57 Blood Pressure Mean 112 H 11/23/23 12:57 Blood Pressure Position High-Fowlers 11/23/23 12:57 Pulse Oximetry 97 11/23/23 12:57 Oxygen Delivery Method Room Air 11/23/23 12:57 Vital Signs Temperature 98.6 F 11/23/23 12:57 Pulse Rate 52 L 11/23/23 12:57 Respiratory Rate 16 11/23/23 12:57 Blood Pressure 184/76 H 11/23/23 12:57 Pulse Oximetry 97 11/23/23 12:57 Oxygen Delivery Method Room Air 11/23/23 12:57 Temperature 98.6 F 11/23/23 12:57 Pulse Rate 49 L 11/23/23 13:32 Respiratory Rate 16 11/23/23 12:57 Blood Pressure 178/71 H 11/23/23 13:32 Pulse Oximetry 96 11/23/23 13:32 Oxygen Delivery Method Room Air 11/23/23 12:57 Medical Decision Making MDM Narrative Medical decision making narrative: [age] year white female with a G-tube placed that now came out by accident, and she is eating well by mouth. At this point she does not want replaced. Discussed with her general surgeon Dr. Hoang who felt we could simply cover with gauze and paper tape and allow this to read extremity allow this to heal and I did recommend to them that they contact their primary physician in [facility] to know that this is the plan and that that is our wishes. Likely within a couple of weeks this will be healed, and they will keep it covered and clean careful to keep the area clean due to acid secretion and they do not want irritation or breakdown of skin. She and her were comfortable plan. Discharge Plan Discharge Clinical Impression: G tube feedings Patient Disposition: Home w/ Parent or Adult Condition: Stable Additional Instructions: Keep the G-tube site covered with gauze and bacitracin and paper tape would recommend cleaning a couple times a day. Update their [facility] physician and there transplant physicians about this plan to not replace the G-tube. Activity Level: No Restrictions Diet Detail: No change in p.o. diet Prescriptions: No Action quetiapine [Seroquel] 25 mg tablet 25 mg feeding tube HS PRN acetaminophen 500 mg capsule 1,000 mg feeding tube QID loperamide 2 mg capsule 2 mg feeding tube QID PRN sertraline 25 mg tablet 25 mg feeding tube DAILY torsemide 100 mg tablet 100 mg PO DAILY PRN Prograf 0.2 mg granules in packet 0.4 mg PO HS aspirin 81 mg tablet,chewable 1 tab feeding tube DAILY pantoprazole 40 mg tablet,delayed release (DR/EC) 40 mg PO DAILY multivitamin [Daily Multi-Vitamin] Tablet 1 tab feeding tube DAILY mycophenolate mofetil 250 mg capsule 750 mg PO DAILY mycophenolate mofetil [CellCept] 250 mg capsule 500 mg PO HS prednisone 5 mg tablet 5 mg feeding tube DAILY cholecalciferol (vitamin D3) 25 mcg (1,000 unit) tablet 25 mcg feeding tube DAILY Santyl 250 unit/gram ointment 1 applic topical DAILY ondansetron 4 mg tablet,disintegrating 4 mg PO DAILY atorvastatin 80 mg tablet 80 mg feeding tube HS Belsomra 10 mg tablet 10 mg PO HS PRN Prograf 1 mg granules in packet 2 mg feeding tube Q12H diphenoxylate-atropine 2.5-0.025 mg/5 mL liquid 5 ml feeding tube Q6H PRN amlodipine 10 mg tablet 10 mg feeding tube DAILY Creon 36,000-114,000- 180,000 unit capsule,delayed release(DR/EC) 1 cap PO QID Qty: 360 0RF Rx Instructions: administer with meals and/or snacks, take one 36,000 capsule 4x a day with each meal Follow Up/Referrals: Tammy Moreira MD [Primary Care Provider] - Stand Alone Forms: [employer] Info Instructions
[2023-11-23 13:29] VITALS: PULSE 48; O2SAT 96
[2023-11-23 13:30] VITALS: PULSE 48; O2SAT 97
[2023-11-23 13:32] VITALS: BP 178/71; PULSE 49; O2SAT 96
== END 2023-11-23 13:39 | disposition home or self-care (01) ==
PROVIDERS: Emergency Provider Family Medicine; PCP Internal Medicine
DX: T85.528A Displacement of other gastrointestinal prosthetic devices, implants and grafts, initial encounter (principal)
CPT/HCPCS: 99282; 99283

== ENCOUNTER 2023-12-09 00:10 | Outpatient (CLI) | payer BC, SELFPAY | END 2023-12-09 00:11 | disposition home or self-care (01) | LOC: AMB 12-10 00:12 | PROVIDERS: Visit Provider Family Medicine | DX: R53.1 Weakness (principal) | CPT/HCPCS: A0425; A0427 ==

== ENCOUNTER 2024-08-31 14:36 | Outpatient (CLI) | payer BC, SELFPAY | END 2024-08-31 14:37 | disposition home or self-care (01) | LOC: AMB 09-02 09:46 | PROVIDERS: Visit Provider Family Medicine | DX: S89.91XA Unspecified injury of right lower leg, initial encounter (principal); W01.0XXA Fall on same level from slipping, tripping and stumbling without subsequent striking against object, initial encounter; Y92.009 Unspecified place in unspecified non-institutional (private) residence as the place of occurrence of the external cause | CPT/HCPCS: A0425; A0427 ==